=== PATIENT | female | born 1960 | race Caucasian/White ===

== ENCOUNTER 2020-01-05 06:02 | Emergency (ER) | payer MEDICARE, MEDICAID, SELFPAY ==
[2020-01-05 06:13] VITALS: BP 145/112; PULSE 90; RESP 18; TEMP 36.6; BMI 18.3
--- NOTE | 2020-01-05 06:53 | ED.ANXIETY ---
HPI - Anxiety General Chief Complaint: Anxiety Stated Complaint: ANXIETY Time Seen by Provider: 01/05/20 06:53 Source: patient Mode of arrival: ambulatory Limitations: no limitations History of Present Illness complaint: anxiety Onset (ago): week(s) Severity: moderate Quality: constant Place: home History of similar episodes: Yes Provoking factors: emotional stress Relieving factors: nothing Exacerbating factors: nothing Associated symptoms: denies other symptoms Related Data Allergies Allergy/AdvReac Type Severity Reaction Status Date / Time No Known Allergies Allergy Unknown unknown Verified 01/05/20 06:30 [NO KNOWN ALLERGIES] Review of Systems Review of Systems: Constitutional : No Fever, No Chills ENT/Mouth : No Ear Pain, No Nasal Congestion, No sore throat Eyes: No Eye Pain, No Swelling, No Redness Cardiovascular : No Chest Pain, No SOB Respiratory : No Cough, No Sputum, No Dyspnea Gastrointestinal : No Nausea, No Vomiting, No Diarrhea, No Hematochezia, No Melena Genitourinary : No Dysuria, No Urinary Frequency, No Hematuria Musculoskeletal : No Myalgias Skin : No Skin Lesions, No rash Neuro : No Weakness, No Numbness, No Paresthesias, No Dizziness, No Headache Psych : positive Anxiety, positive Depression, denies SI/HI Heme/Lymph: No Lymphadenopathy Endocrine : No Polyuria, No Polydipsia PMFSH Past Medical History Attestation statement: The following information was validated with the patient. Medical History Anxiety COPD (chronic obstructive pulmonary disease) Depression GERD (gastroesophageal reflux disease) Mitral and aortic regurgitation Rectal prolapse Social History Social History Alcohol intake: former Smoking Status: Current every day smoker Smoked in Last 30 Days: Yes Use of substances other than those prescribed or required for medical reasons: Yes Substance Use Type: Marijuana Substance Use Frequency: Occasionally Last Used Substance: Unknown Any prior treatment program specific to substance use: Yes Advance Directives: No Advance Directives Information Provided: No Physical Exam Vital Signs and I&O and Narrative: Vital Signs and I&O: Vital Signs Temp 97.9 F 01/05/20 06:13 Pulse 77 01/05/20 10:00 Resp 20 01/05/20 10:00 BP 144/88 H 01/05/20 10:00 Pulse Ox 97 01/05/20 10:00 Intake & Output 01/04/20 01/05/20 01/05/20 18:59 06:59 18:59 Weight 45.359 kg Body Mass Index 18.3 Const: General: cooperative and anxious Nutritional Appearance: malnourished Orientation/consciousness: oriented to person, oriented to place, oriented to time and patient oriented x3 HENMT: Head: Yes normal to inspection Ears: external ears normal General nose exam: Normal external nose present Face and sinus: Yes normal facial exam Eyes: General: appearance normal, both eyes and all related structures Pupils: Equal, round and reactive pupils present Neck: Neck: Yes normal visual inspection Chest: Chest palpation & inspection: normal inspection of the chest Resp: Effort & Inspection: normal respiratory effort Auscultation: clear to auscultation bilaterally Cardio: Rate: regular rate Rhythm: regular rhythm Peripheral pulses: Peripheral pulses 2+ throughout GI: Inspection: Yes normal to inspection Palpation (GI): Soft to palpation and nontender Skin: General skin exam: no rashes or lesions noted Neuro: General: oriented to person, oriented to place, oriented to time, patient oriented x3 and gait normal Cranial nerves: Yes CN's II-XII intact bilaterally and Yes Equal, round and reactive pupils present Cognition (Neuro): normal cognition Gait exam (Neuro): Normal gait present Motor exam (neuro): 5/5 motor strength present throughout Sensory Exam: Normal double simultaneous stimulation for sensation Extrem: General: Yes normal to inspection Psych: Appearance: disheveled Mental Status: mental status grossly normal Speech and movement: Normal speech and movement present Affect: Anxious affect present Attitude: cooperative Thought process: Normal thought process present Thought content: Normal thought content present Insight: Good insight present (Psych) Judgement: Good judgement present (Psych) Course Course Hospital Course: no SI/HI cleared by [facility] stable for DC at this time, feels better and wants to go home MDM - Anxiety MDM Narrative Medical decision making narrative: patient with anxiety no SI/HI. will need labs, [facility] consult, not toxic Lab Data Result diagrams: 01/05/20 07:22 01/05/20 07:22 Labs: Lab Results 01/05/20 01/05/20 01/05/20 Range/Units 07:22 07:22 07:27 WBC 5.8 (4.8-10.8) X10*3/uL RBC 5.34 (4.20-5.50) X10*6/uL Hgb 15.8 (12.0-16.0) g/dl Hct 46.9 (37-47) % MCV 87.8 (80-98) fL MCH 29.6 (27.0-33.0) pg MCHC 33.7 (31.0-35.0) g/dl RDW 13.1 (11.0-16.0) % Plt Count 185 (160-400) X10*3/uL MPV 9.0 L (9.4-12.3) fL Immature Gran % (Auto) 0.2 (0.0-0.4) % Neut % (Auto) 60.0 (45-73) % Lymph % (Auto) 28.5 (20-40) % [place] % (Auto) 8.2 (2-11) % Eos % (Auto) 2.1 (0-4) % Baso % (Auto) 1.0 (0-2) % Neut # (Auto) 3.5 (2.0-8.3) X10*3/uL Lymph # (Auto) 1.7 (1.2-4.9) X10*3/uL [place] # (Auto) 0.5 (0.1-1.2) X10*3/uL Eos # (Auto) 0.1 (0.0-0.4) X10*3/uL Baso # (Auto) 0.1 (0.0-0.2) X10*3/uL Abs Immat Gran (auto) 0.01 (0.00-0.03) X10*3/uL Absolute Nucleated RBC 0.000 (0.0-0.012) X10*3/uL Nucleated RBC % (auto) 0.0 (0.0-0.2) /100WBC Sodium 140 (135-145) mmol/L Potassium 3.6 (3.3-5.1) mmol/l Chloride 105 (96-108) mmol/L Carbon Dioxide 26 (22-29) mmol/L Anion Gap 13 (12-20) BUN 12 (9-16) mg/dL Creatinine 0.72 (0.5-1.4) mg/dL Estim Creat Clear Calc 59.4 Estimated GFR > 60 Random Glucose 91 (60-115) mg/dL Calcium 9.1 (8.4-10.2) mg/dL Total Bilirubin 0.6 (0.0-1.0) mg/dL Direct Bilirubin 0.2 (0.0-0.5) mg/dL AST 13 (5-31) U/L ALT 6 (0-31) U/L Alkaline Phosphatase 51 (39-117) U/L Total Protein 6.8 (6.5-8.0) g/dL Albumin 4.3 (3.5-5.0) g/dL Urine Opiates Screen Not Detected (Not Detect) Ur Barbiturates Screen Not Detected (Not Detect) Ur Phencyclidine Scrn Not Detected (Not Detect) Ur Amphetamines Screen Not Detected (Not Detect) U Benzodiazepines Scrn Not Detected (Not Detect) Urine Cocaine Screen Not Detected (Not Detect) U Marijuana (THC) Screen POSITIVE H (Not Detect) Discharge Plan Discharge Clinical Impression: Depression Qualifiers: Depression Type: major depressive disorder Major depression recurrence: recurrent Active/Remission status: currently active Major depression episode severity: moderate Qualified Code(s): F33.1 - Major depressive disorder, recurrent, moderate Patient Disposition: Home, Self-Care Additional Instructions: please follow up with [facility] they will set you up with outpatient providers
[2020-01-05] MEDS: LORazepam 1 MG TABLET PO (07:06)
--- NOTE | 2020-01-05 07:20 | PC.NURSE ---
PT RESTLESS, CRYING. PT REASSURED, MEDICATIONS GIVEN, LIGHTS DIMMED.
[2020-01-05 07:29] LABS: MANUAL DIFF FLAG NO
[2020-01-05 07:35] LABS: Basophils Absolute Auto 0.1 X10*3/uL (0.0-0.2); Eosinophils Absolute Auto 0.1 X10*3/uL (0.0-0.4); Eosinophils Percent Auto 2.1 % (0-4); Hematocrit 46.9 % (37-47); Hemoglobin 15.8 g/dl (12.0-16.0); Imm Gran Abs Auto 0.01 X10*3/uL (0.00-0.03); Imm Gran Pct Auto 0.2 % (0.0-0.4); Lymphocytes Absolute Auto 1.7 X10*3/uL (1.2-4.9); Lymphocytes Percent Auto 28.5 % (20-40); Mean Corpuscular HGB Conc 33.7 g/dl (31.0-35.0); Mean Corpuscular Hemoglobin 29.6 pg (27.0-33.0); Mean Corpuscular Volume 87.8 fL (80-98); Monocytes Absolute Auto 0.5 X10*3/uL (0.1-1.2); Monocytes Percent Auto 8.2 % (2-11); Neutrophils Absolute Auto 3.5 X10*3/uL (2.0-8.3); Platelet Count 185 X10*3/uL (160-400); Red Blood Count 5.34 X10*6/uL (4.20-5.50); Red Cell Distribution Width 13.1 % (11.0-16.0); White Blood Count 5.8 X10*3/uL (4.8-10.8)
[2020-01-05 07:55] LABS: Alanine Aminotransferase 6 U/L (0-31); Albumin Level 4.3 g/dL (3.5-5.0); Alkaline Phosphatase 51 U/L (39-117); Anion Gap 13 (12-20); Aspartate Amino Transferase 13 U/L (5-31); Bilirubin Direct 0.2 mg/dL (0.0-0.5); Bilirubin Total 0.6 mg/dL (0.0-1.0); Blood Urea Nitrogen 12 mg/dL (9-16); Calcium 9.1 mg/dL (8.4-10.2); Carbon Dioxide 26 mmol/L (22-29); Chloride 105 mmol/L (96-108); Creatinine Clr Calc Pharmacy 59.4; Estimated Glomerular Filt Rate > 60; Glucose Random 91 mg/dL (60-115); Potassium 3.6 mmol/l (3.3-5.1); Sodium 140 mmol/L (135-145); Total Protein 6.8 g/dL (6.5-8.0)
[2020-01-05 08:02] VITALS: BP 128/92; PULSE 85; RESP 22; O2SAT 94
[2020-01-05 08:06] LABS: Amphetamine Screen Urine Not Detected (Not Detect); Barbiturates, Urine Not Detected (Not Detect); Benzodiazepines Screen Urine Not Detected (Not Detect); Cannabinoid Screen Urine POSITIVE (Not Detect); Cocaine Screen Urine Not Detected (Not Detect); Opiate Screen Urine Not Detected (Not Detect); Phencyclidine Screen Urine Not Detected (Not Detect)
[2020-01-05] MEDS: Acetaminophen 325 MG TABLET 650 MG PO (08:22)
--- NOTE | 2020-01-05 09:15 | PC.NURSE ---
ED summary faxed to [facility] for consult
--- NOTE | 2020-01-05 09:44 | PC.NURSE ---
Call placed to [facility], updated on patient condition and need for consult. Per staff at [facility], will send next available clinician.
--- NOTE | 2020-01-05 09:56 | PC.NURSE ---
Patient updated on plan to be evaluated by N clinician.
[2020-01-05 10:00] VITALS: BP 144/88; PULSE 77; RESP 20; O2SAT 97
== END 2020-01-05 11:26 | disposition home or self-care (01) ==
PROVIDERS: Emergency Provider Emergency Medicine; PCP Internal Medicine
DX: F33.1 Major depressive disorder, recurrent, moderate (principal); F17.200 Nicotine dependence, unspecified, uncomplicated
CPT/HCPCS: 36415; 80048; 80076; 80307; 85025; 99284

== ENCOUNTER 2020-01-19 12:56 | Outpatient (REF) | payer MEDICARE, MEDICAID, SELFPAY ==
[2020-01-20 08:56] LABS: CT PCR NOT DETECTED (Not Detect.); NG PCR NOT DETECTED (Not Detect.)
[2020-01-20 09:33] LABS: BV Int Neg Control Negative (Negative); BV Int Pos Control Positive (Positive)
[2020-01-24 20:11] LABS: HPV mRNA E6/E7 Not Detected (Not Detected)
== END 2020-01-19 12:57 | disposition home or self-care (01) ==
LOC: HO.LNP 12:56
PROVIDERS: PCP Internal Medicine; Referring Provider Internal Medicine; Visit Provider Obstetrics & Gynecology
DX: Z01.419 Encounter for gynecological examination (general) (routine) without abnormal findings (principal); Z11.51 Encounter for screening for human papillomavirus (HPV); Z11.3 Encounter for screening for infections with a predominantly sexual mode of transmission
CPT/HCPCS: 87480; 87491; 87510; 87591; 87624; 87625; 87660; 88142

== ENCOUNTER 2020-01-25 11:19 | Emergency (ER) | payer MEDICARE, MEDICAID, SELFPAY ==
--- NOTE | 2020-01-25 13:53 | ED_ITS ---
HPI - General Adult General Chief complaint: Fall Stated complaint: FALL Time Seen by Provider: 01/25/20 13:53 Source: patient Mode of arrival: ambulatory Limitations: no limitations History of Present Illness MD complaint: states she fell 1 week ago and since then L side is numb Onset (ago): week(s) (1) Location: head, neck and back Radiation: non-radiation Severity: moderate Quality: burning and constant Pain Consistency: constant Relieving factors: none Exacerbating factors: none Associated symptoms: headaches and other (feels her left side is numb and tingling from head to toe as well as she has neck pain and she fell today again and her low back hurts) Treatments prior to arrival: none Related Data Home Medications Medication Instructions Recorded Confirmed lorazepam 1 mg tablet 1 mg PO BEDTIME PRN 01/19/20 Previous Rx's Medication Instructions Recorded oxycodone 5 mg tablet 5 mg PO BID PRN 10 Days #20 tab 01/16/20 Allergies Allergy/AdvReac Type Severity Reaction Status Date / Time No Known Allergies Allergy Unknown unknown Verified 01/05/20 06:30 [NO KNOWN ALLERGIES] Review of Systems Review of Systems: Constitutional : No Weight loss, No Fever, No Chills, pos Fatigue, No Malaise ENT/Mouth : No sore throat, No Rhinorrhea Eyes: No Eye Pain, No Swelling, No Redness Cardiovascular : No Chest Pain, No SOB, No Dyspnea on Exertion, No Orthopnea, No Edema, No Palpitations Respiratory : No Cough, No Sputum, No Wheezing Gastrointestinal : No Nausea, No Vomiting, No Diarrhea, No Constipation, No abdominal Pain, No Hematochezia, No Melena Back: hit left low back today c/o pain Genitourinary : No Dysuria, No Urinary Frequency, No Hematuria, Musculoskeletal : No joint pain, No Myalgias, No Joint Swelling Skin : No Skin Lesions, No rash Neuro : pos Weakness, pos Numbness, No Dizziness, pos Headache Psych : pos Anxiety/Panic, No Depression All other systems reviewed and are negative [facility] Past Medical History Medical History Anxiety COPD (chronic obstructive pulmonary disease) Depression Encounter for screening for malignant neoplasm of cervix GERD (gastroesophageal reflux disease) Mitral and aortic regurgitation Rectal prolapse Surgical History History of rectal surgery Social History Social History Alcohol intake: former Smoking Status: Current every day smoker Smoked in Last 30 Days: Yes Use of substances other than those prescribed or required for medical reasons: Yes Substance Use Type: Marijuana Advance Directives: Yes Advance Directives Information Provided: Yes Advance Directives on File: No Sexual orientation: Straight/Heterosexual Gender identity: female Physical Exam Vital Signs: Vital Signs: Vital Signs Temp Pulse Resp BP Pulse Ox 01/25/20 15:16 98.8 F 72 16 148/89 H 98 01/25/20 14:31 98.7 F 74 16 145/88 H 98 Body Mass Index 17.7 Appearance: Alert. Oriented X3. No acute distress. Anxious and tearful Eyes: Pupils equal, round and reactive to light. ENT: Pharynx normal. Neck: Normal inspection. Neck supple. CVS: Normal heart rate and rhythm. Pulses normal. Respiratory: No respiratory distress. Breath sounds normal. Abdomen: Soft and nontender. Back: L flank ttp above iliac no trauma noted on skin Skin: Skin warm and dry. Normal skin color. Normal skin turgor. Extremities: No lower extremity edema. No calf ttp Neuro: Oriented X 3. No motor deficit. C/o tingling in L side face/toes Course Course Course Narrative: no acute findings on CT scan all symptoms resolved with v alium, anticipate DC home if labs negative Medical Decision Making MDM Narrative Medical decision making narrative: 59 yo female with hx of anxiety here with L sided numbness and tingling after a fall 1 week ago - no AC therapy, at this time will need labs, CT scan of head/cspine, labs and EKG, PO valium for anxiety Lab Data Result diagrams: 01/25/20 14:42 01/25/20 14:42 Labs: Lab Results 01/25/20 01/25/20 Range/Units 14:42 14:42 WBC 5.9 (4.8-10.8) X10*3/uL RBC 5.17 (4.20-5.50) X10*6/uL Hgb 15.4 (12.0-16.0) g/dl Hct 45.6 (37-47) % MCV 88.2 (80-98) fL MCH 29.8 (27.0-33.0) pg MCHC 33.8 (31.0-35.0) g/dl RDW 12.6 (11.0-16.0) % Plt Count 198 (160-400) X10*3/uL MPV 8.6 L (9.4-12.3) fL Immature Gran % (Auto) 0.3 (0.0-0.4) % Neut % (Auto) 58.7 (45-73) % Lymph % (Auto) 30.8 (20-40) % [place] % (Auto) 7.8 (2-11) % Eos % (Auto) 1.7 (0-4) % Baso % (Auto) 0.7 (0-2) % Lymph # (Auto) 1.8 (1.2-4.9) X10*3/uL [place] # (Auto) 0.5 (0.1-1.2) X10*3/uL Eos # (Auto) 0.1 (0.0-0.4) X10*3/uL Baso # (Auto) 0.0 (0.0-0.2) X10*3/uL Abs Immat Gran (auto) 0.02 (0.00-0.03) X10*3/uL Absolute Neuts (auto) 3.5 (2.0-8.3) X10*3/uL Absolute Nucleated RBC 0.000 (0.0-0.012) X10*3/uL Nucleated RBC % (auto) 0.0 (0.0-0.2) /100WBC Hold Blue Top SEE NOTE ECG Data Attestation: I personally reviewed and interpreted this ECG as follows: Interpretation: Rate: 76 Rhythm: NSR [place]: left Normal P waves. Normal BETZA[place]. Normal QRS complex. ST T wave : normal qTC: normal prior studies: no acute ischemia The study has been interpreted contemporaneously by me. . Discharge Plan Discharge Prescriptions: No Action oxycodone 5 mg tablet 5 mg PO BID PRN (Reason: pain) 10 Days Qty: 20 RF: 0 lorazepam 1 mg tablet 1 mg PO BEDTIME PRNRF: 0
--- NOTE | 2020-01-25 13:54 | CT_ITS ---
EXAMINATION: CT ABDOMEN AND PELVIS WITHOUT CONTRAST CLINICAL INFORMATION: Fall, trauma, left flank pain COMPARISON: CT abdomen and pelvis noncontrast 08/17/[address] abdomen and pelvis with IV contrast 03/08/2018. TECHNIQUE: Multidetector volumetric imaging was performed from the superior aspect of the liver through the pubic symphysis. No oral or intravenous contrast. Sagittal and coronal reformatted images were obtained on the technologist's workstation. This CT examination was performed using dose optimization techniques as appropriate, variously including the following: *Automated exposure control *Adjustment of mA and/or kV according to patient size (this includes techniques or standardized protocols for targeted exams where dose is matched to indication/reason for exam; i.e. extremities or head) *Use of iterative reconstruction technique DLP: 227 mGy-cm FINDINGS: LUNG BASES: Discoid plaque like lesion right central base 9 mm across and 3 mm height, similar to prior studies 2019 and 2017, consistent with benign entity. No airspace consolidation or effusion. LIVER, GALLBLADDER, AND BILIARY TREE: The liver is smooth in contour and parenchyma homogeneous. No focal hepatic parenchymal lesion or posttraumatic abnormality. No intrahepatic ductal dilatation. There are 2 small dependent gallstones present. No gallbladder dilatation or wall thickening. No biliary ductal dilatation. Common duct unremarkable. PANCREAS: Unremarkable. SPLEEN: Unremarkable. ADRENAL GLANDS: Unremarkable. KIDNEYS AND URETERS: The kidneys are normal in size and contour. There is no hydronephrosis, hydroureter, or perinephric stranding. There are a few scattered bilateral punctate renal parenchymal calcifications. No obstructing renal sinus calculi. Tiny cortical cyst upper pole left kidney again noted, similar to 2018. BLADDER: Unremarkable. GASTROINTESTINAL TRACT: No bowel obstruction or focal inflammatory changes. The appendix is normal. There is no free air. No ascites or fluid collection. ABDOMINAL WALL: No significant hernia is appreciated. LYMPH NODES: No lymphadenopathy. VASCULAR: Atherosclerotic calcifications. No aneurysmal enlargement aorta. No retroperitoneal hematoma. PELVIC VISCERA: Unremarkable. OSSEOUS STRUCTURES: There is old compression deformity vertebral body L5 similar to prior studies. No acute bony abnormality. IMPRESSION: 1. No acute traumatic abnormality abdomen or pelvis. 2. No hydronephrosis or perinephric stranding. 3. Old L5 vertebral compression similar to prior CT studies 2019, 2017. 4. Cholelithiasis. No gallbladder wall thickening or ductal dilatation.
--- NOTE | 2020-01-25 13:54 | CT_ITS ---
EXAMINATION: CT CERVICAL SPINE WITHOUT CONTRAST CLINICAL INFORMATION: Fall, trauma, pain COMPARISON: None TECHNIQUE: Multidetector volumetric CT imaging of the cervical spine is performed without contrast in the axial plane. Additional 2D reformatted coronal and sagittal images are generated on the CT workstation and uploaded to PACS. DOSE LOWERING TECHNIQUES: This CT examination was performed using dose optimization techniques as appropriate, variously including the following: *Automated exposure control *Adjustment of mA and/or kV according to patient size (this includes techniques or standardized protocols for targeted exams where dose is matched to indication/reason for exam; i.e. extremities or head) *Use of iterative reconstruction technique DLP: 255 mGy-cm FINDINGS: There is no vertebral fracture or compression. No destructive process or prevertebral soft tissue swelling. The craniocervical junction appears normal. The odontoid appears intact. There is straightening of the cervical lordosis with gentle borderline dextrocurvature. There are degenerative disc changes C5-C6 and C6-C7 with disc narrowing and mild endplate sclerosis and associated anterior and posterior vertebral spurring. Mild facet degeneration is also present. There is borderline retrolisthesis at C5 likely related to the degenerative changes. No perched facet. There is no apical pneumothorax. Centrilobular emphysematous changes are again noted apices, also described on CT chest report 10/26/2017. IMPRESSION: 1. No acute bony abnormality or prevertebral soft tissue swelling. 2. Degenerative disc changes with borderline retrolisthesis C5-C6 and degenerative disc changes C6-C7.
--- NOTE | 2020-01-25 13:54 | CT_ITS ---
EXAMINATION: CT HEAD WITHOUT CONTRAST CLINICAL INFORMATION: Fall, trauma, pain COMPARISON: CT brain noncontrast 04/28/2017 TECHNIQUE: Contiguous axial imaging was performed from the skull base to vertex without intravenous administration of contrast. Additional 2-D coronal and sagittal reformatted images are generated on the CT workstation and uploaded to PACS. DOSE LOWERING TECHNIQUES: This CT examination was performed using dose optimization techniques as appropriate, variously including the following: *Automated exposure control *Adjustment of mA and/or kV according to patient size (this includes techniques or standardized protocols for targeted exams where dose is matched to indication/reason for exam; i.e. extremities or head) *Use of iterative reconstruction technique DLP: 255 mGy-cm FINDINGS: There is no intracranial hemorrhage, hematoma, or extra-axial fluid collection. The ventricles are normal in size. There is no hydrocephalus, edema, or mass effect. The garcia-white matter differentiation appears symmetric. There is no visible acute territorial infarct or mass lesion. The calvarium appears intact. There is no pneumocephalus or orbital emphysema. The visualized sinuses and middle ears and mastoid air cells show no significant mucosal thickening. There are no air-fluid levels. IMPRESSION: No acute intracranial abnormality.
--- NOTE | 2020-01-25 14:11 | ECG_ITS ---
Test Reason : FALL Blood Pressure : / mmHG Vent. Rate : 076 BPM Atrial Rate : 076 BPM P-R Int : 198 ms QRS Dur : 098 ms QT Int : 402 ms P-R-T Axes : 080 -44 066 degrees QTc Int : 452 ms Sinus rhythm with occasional Premature ventricular complexes Left axis deviation Abnormal ECG When compared with ECG of 03-APR-2019 14:17, Premature ventricular complexes are now Present Referred By: Sunshine Rhoades Electronically Signed By:MAI BURCH MD
[2020-01-25 14:31] VITALS: BP 145/88; PULSE 74; RESP 16; TEMP 37.1; O2SAT 98; BMI 17.7
[2020-01-25] MEDS: diazePAM 5 MG TABLET PO (14:36)
[2020-01-25 14:54] LABS: MANUAL DIFF FLAG NO
[2020-01-25 14:57] LABS: Basophils Percent Auto 0.7 % (0-2); Eosinophils Absolute Auto 0.1 X10*3/uL (0.0-0.4); Eosinophils Percent Auto 1.7 % (0-4); Hematocrit 45.6 % (37-47); Hemoglobin 15.4 g/dl (12.0-16.0); Imm Gran Abs Auto 0.02 X10*3/uL (0.00-0.03); Imm Gran Pct Auto 0.3 % (0.0-0.4); Lymphocytes Absolute Auto 1.8 X10*3/uL (1.2-4.9); Lymphocytes Percent Auto 30.8 % (20-40); Mean Corpuscular HGB Conc 33.8 g/dl (31.0-35.0); Mean Corpuscular Hemoglobin 29.8 pg (27.0-33.0); Mean Corpuscular Volume 88.2 fL (80-98); Mean Platelet Volume 8.6 fL (9.4-12.3); Monocytes Absolute Auto 0.5 X10*3/uL (0.1-1.2); Monocytes Percent Auto 7.8 % (2-11); Neutrophils Absolute Auto 3.5 X10*3/uL (2.0-8.3); Neutrophils Percent Auto 58.7 % (45-73); Platelet Count 198 X10*3/uL (160-400); Red Blood Count 5.17 X10*6/uL (4.20-5.50); Red Cell Distribution Width 12.6 % (11.0-16.0); White Blood Count 5.9 X10*3/uL (4.8-10.8)
[2020-01-25 15:16] VITALS: BP 148/89; PULSE 72; RESP 16; TEMP 37.1; O2SAT 98
[2020-01-25 16:07] LABS: Alanine Aminotransferase < 6 U/L (0-31); Albumin Level 4.2 g/dL (3.5-5.0); Alkaline Phosphatase 62 U/L (39-117); Anion Gap 18 (12-20); Aspartate Amino Transferase 13 U/L (5-31); Bilirubin Direct < 0.2 mg/dL (0.0-0.5); Bilirubin Total 0.3 mg/dL (0.0-1.0); Blood Urea Nitrogen 12 mg/dL (9-16); Calcium 9.1 mg/dL (8.4-10.2); Carbon Dioxide 21 mmol/L (22-29); Chloride 106 mmol/L (96-108); Creatinine Clr Calc Pharmacy 63.9; Estimated Glomerular Filt Rate > 60; Glucose Random 80 mg/dL (60-115); Magnesium 2.4 mg/dL (1.6-2.6); Potassium 4.3 mmol/l (3.3-5.1); Sodium 141 mmol/L (135-145)
--- NOTE | 2020-01-25 16:09 | PC.NURSE ---
pt reports relief of tingling
[2020-01-25 16:20] LABS: Thyroid Stimulating Hormone 1.41 mIU/mL (0.32-4.0)
== END 2020-01-25 16:16 | disposition home or self-care (01) ==
PROVIDERS: Emergency Provider Emergency Medicine; PCP Internal Medicine
DX: R20.2 Paresthesia of skin (principal); F41.9 Anxiety disorder, unspecified; I10 Essential (primary) hypertension; F17.200 Nicotine dependence, unspecified, uncomplicated; Z79.899 Other long term (current) drug therapy; Z91.81 History of falling
CPT/HCPCS: 36415; 70450; 72125; 74176; 80048; 80076; 83735; 84443; 85025; 93005; 99284

== ENCOUNTER 2020-02-29 09:09 | Outpatient (REF) | payer MEDICARE, MEDICAID, SELFPAY ==
--- NOTE | 2020-02-29 09:12 | EMG_ITS ---
HISTORY OF PRESENT ILLNESS: This is a 59-year-old woman with left leg pain and numbness. PHYSICAL EXAMINATION: On examination, she is alert and oriented with normal intellectual functions. Cranial nerves II through XII are normal. Muscle tone and strength are normal. IMPRESSION: Rule out peroneal neuropathy. Nerve conduction EMG study: Normal electrodiagnostic study of the left lower extremity except for mild sensory axonal loss in the left sural nerve. There is no electrodiagnostic evidence of generalized peripheral neuropathy or nerve entrapment. Normal EMG of the left L4-S1 innervated muscles. MD DARIANA Herrera/AVIS / [id number]
== END 2020-02-29 09:10 | disposition home or self-care (01) ==
LOC: HO.NEURO 09:09
PROVIDERS: PCP Internal Medicine; Visit Provider Internal Medicine
DX: R20.2 Paresthesia of skin (principal)
CPT/HCPCS: 95860; 95885; 95910

== ENCOUNTER 2020-06-18 10:46 | Outpatient (REF) | payer MEDICARE, MEDICAID, SELFPAY ==
--- NOTE | ~2020-06-18 | MM_ITS ---
EXAMINATION: MM SCREENING DIGITAL BREAST TOMOSYNTHESIS, BILATERAL CLINICAL INFORMATION: Screening. Asymptomatic. The lifetime risk of breast cancer based on the Tyrer-Cuzick Model is 6%. COMPARISON: Mammography: 06/13/2019, 23/06/2014 TECHNIQUE: Digital breast tomosynthesis is performed in both the craniocaudal and mediolateral oblique views along with computer-aided detection (CAD). Synthesized 2D images are generated from the tomosynthesis. FINDINGS: There are scattered areas of fibroglandular density (ACR BI-RADS breast composition Category b). There are no significant masses, abnormal calcifications, or other abnormalities. Parenchymal pattern is similar to prior exam. MM/MM tomosynthesis screening BI IMPRESSION: No mammographic evidence of malignancy. ASSESSMENT: BI-RADS 1: Negative RECOMMENDATION: Routine annual mammography screening. This patient's information was entered into a reminder system with a target due date for their next mammogram.
== END 2020-06-18 10:47 | disposition home or self-care (01) ==
LOC: HO.MAMMO 10:46
PROVIDERS: Visit Provider Internal Medicine
DX: Z12.31 Encounter for screening mammogram for malignant neoplasm of breast (principal)
CPT/HCPCS: 77063; 77067

== ENCOUNTER 2020-07-13 10:45 | Outpatient (REF) | payer MEDICARE, MEDICAID, SELFPAY ==
[2020-07-13 12:25] LABS: MANUAL DIFF FLAG NO
[2020-07-13 12:30] LABS: Basophils Absolute Auto 0.1 X10*3/uL (0.0-0.2); Eosinophils Absolute Auto 0.2 X10*3/uL (0.0-0.4); Eosinophils Percent Auto 2.8 % (0-4); Hematocrit 46.5 % (37-47); Hemoglobin 15.1 g/dl (12.0-16.0); Imm Gran Abs Auto 0.03 X10*3/uL (0.00-0.03); Imm Gran Pct Auto 0.4 % (0.0-0.4); Lymphocytes Percent Auto 28.7 % (20-40); Mean Corpuscular HGB Conc 32.5 g/dl (31.0-35.0); Mean Corpuscular Hemoglobin 29.5 pg (27.0-33.0); Monocytes Absolute Auto 0.5 X10*3/uL (0.1-1.2); Monocytes Percent Auto 7.3 % (2-11); Neutrophils Absolute Auto 4.2 X10*3/uL (2.0-8.3); Neutrophils Percent Auto 59.8 % (45-73); Platelet Count 210 X10*3/uL (160-400); Red Blood Count 5.11 X10*6/uL (4.20-5.50); Red Cell Distribution Width 13.1 % (11.0-16.0)
[2020-07-13 12:45] LABS: Glucose Urine UA NEG (NEG); Leukocyte Esterase Urine NEG (NEG); Nitrite Urine NEG (NEG); PH 6.5 (5.0-8.0); Urine Blood 1+ (NEG); Urine Ketones NEG (NEG); Urine Protein NEG (NEG-TRACE)
[2020-07-13 12:48] LABS: Appearance Urine CLEAR; Color Urine YELLOW
[2020-07-13 12:57] LABS: Squamous Epithelial Cell Urine 1+ /LPF; WBC Urine 0 /HPF (0-4)
[2020-07-13 13:03] LABS: Alanine Aminotransferase 7 U/L (0-31); Albumin Level 4.4 g/dL (3.5-5.0); Alkaline Phosphatase 60 U/L (39-117); Anion Gap 13 (12-20); Aspartate Amino Transferase 16 U/L (5-31); Bilirubin Total 0.5 mg/dL (0.0-1.0); Blood Urea Nitrogen 11 mg/dL (9-16); Carbon Dioxide 29 mmol/L (22-29); Chloride 105 mmol/L (96-108); Cholesterol 231 mg/dL; Estimated Glomerular Filt Rate > 60; Glucose Fasting 98 mg/dL (60-99); HDL Cholesterol 59 mg/dL; LDL Cholesterol Calculated 151 mg/dl; Potassium 4.7 mmol/L (3.3-5.1); Sodium 142 mmol/L (135-145); Total Protein 7.1 g/dL (6.5-8.0); Triglycerides 105 mg/dL
[2020-07-13 13:25] LABS: Vitamin D 25-OH Total 6.7 ng/mL (>30)
== END 2020-07-13 10:46 | disposition home or self-care (01) ==
LOC: HO.LAB 10:45
PROVIDERS: PCP Internal Medicine; Visit Provider Internal Medicine
DX: E78.00 Pure hypercholesterolemia, unspecified (principal); I10 Essential (primary) hypertension; F17.200 Nicotine dependence, unspecified, uncomplicated; J44.9 Chronic obstructive pulmonary disease, unspecified; K29.70 Gastritis, unspecified, without bleeding; E55.9 Vitamin D deficiency, unspecified
CPT/HCPCS: 36415; 80053; 80061; 81001; 82306; 85025

== ENCOUNTER 2020-08-16 14:44 | Outpatient (REF) | payer MEDICARE, MEDICAID, SELFPAY ==
[2020-08-16 17:40] LABS: MANUAL DIFF FLAG NO
[2020-08-16 17:48] LABS: Basophils Absolute Auto 0.1 X10*3/uL (0.0-0.2); Basophils Percent Auto 0.7 % (0-2); Eosinophils Absolute Auto 0.1 X10*3/uL (0.0-0.4); Eosinophils Percent Auto 1.3 % (0-4); Hematocrit 45.8 % (37-47); Hemoglobin 15.3 g/dl (12.0-16.0); Imm Gran Abs Auto 0.02 X10*3/uL (0.00-0.03); Imm Gran Pct Auto 0.3 % (0.0-0.4); Lymphocytes Absolute Auto 2.4 X10*3/uL (1.2-4.9); Lymphocytes Percent Auto 34.7 % (20-40); Mean Corpuscular HGB Conc 33.4 g/dl (31.0-35.0); Mean Corpuscular Hemoglobin 30.1 pg (27.0-33.0); Mean Platelet Volume 8.9 fL (9.4-12.3); Monocytes Absolute Auto 0.6 X10*3/uL (0.1-1.2); Monocytes Percent Auto 8.1 % (2-11); Neutrophils Absolute Auto 3.8 X10*3/uL (2.0-8.3); Neutrophils Percent Auto 54.9 % (45-73); Platelet Count 189 X10*3/uL (160-400); Red Blood Count 5.09 X10*6/uL (4.20-5.50)
[2020-08-16 18:02] LABS: Alanine Aminotransferase 7 U/L (0-31); Albumin Level 4.4 g/dL (3.5-5.0); Alkaline Phosphatase 52 U/L (39-117); Anion Gap 14 (12-20); Aspartate Amino Transferase 17 U/L (5-31); Bilirubin Total 0.5 mg/dL (0.0-1.0); Blood Urea Nitrogen 12 mg/dL (9-16); Calcium 9.1 mg/dL (8.4-10.2); Carbon Dioxide 26 mmol/L (22-29); Chloride 102 mmol/L (96-108); Cholesterol 227 mg/dL; Estimated Glomerular Filt Rate > 60; Glucose Fasting 79 mg/dL (60-99); HDL Cholesterol 52 mg/dL; LDL Cholesterol Calculated 154 mg/dl; Sodium 138 mmol/L (135-145); Triglycerides 106 mg/dL
[2020-08-16 18:04] LABS: Blood Urea Nitrogen 11 mg/dL (9-16); Estimated Glomerular Filt Rate > 60
[2020-08-16 18:04] LABS: Glucose Urine UA NEG (NEG); Leukocyte Esterase Urine NEG (NEG); Nitrite Urine NEG (NEG); PH 5.5 (5.0-8.0); Urine Blood 1+ (NEG); Urine Ketones 5 MG/DL (NEG); Urine Protein NEG (NEG-TRACE)
[2020-08-16 18:07] LABS: Appearance Urine CLEAR; Color Urine YELLOW
[2020-08-16 18:20] LABS: RBC Urine 0-2 /HPF (0); Renal Epithelial Cells Urine TRACE /LPF; Squamous Epithelial Cell Urine 1+ /LPF; WBC Urine 0 /HPF (0-4)
[2020-08-16 18:34] LABS: TSH reflex Free T4 1.59 uIU/mL (0.32-4.0); Vitamin D 25-OH Total 12.7 ng/mL (>30)
[2020-08-16 18:42] LABS: Erythrocyte Sedimentation Rate 5 MM/HR (0-20)
== END 2020-08-16 14:45 | disposition home or self-care (01) ==
LOC: HO.LAB 14:44
PROVIDERS: PCP Internal Medicine; Referring Provider Internal Medicine; Visit Provider Nurse Practitioner
DX: R10.84 Generalized abdominal pain (principal); R11.10 Vomiting, unspecified; K29.70 Gastritis, unspecified, without bleeding; R68.81 Early satiety; I10 Essential (primary) hypertension; J44.9 Chronic obstructive pulmonary disease, unspecified; E78.00 Pure hypercholesterolemia, unspecified; R20.2 Paresthesia of skin; E55.9 Vitamin D deficiency, unspecified; M47.812 Spondylosis without myelopathy or radiculopathy, cervical region; M47.816 Spondylosis without myelopathy or radiculopathy, lumbar region
CPT/HCPCS: 36415; 80053; 80061; 81001; 82306; 82565; 84443; 84520; 85025; 85652; 99202

== ENCOUNTER 2020-08-24 13:02 | Outpatient (REF) | payer MEDICARE, MEDICAID, SELFPAY ==
--- NOTE | ~2020-08-24 | CT_ITS ---
EXAMINATION: CT ABDOMEN AND PELVIS WITH CONTRAST CLINICAL INFORMATION: Generalized abdominal pain. COMPARISON: None. TECHNIQUE: Multidetector volumetric images were obtained from the superior aspect of the liver through the pubic symphysis following administration 85 mL of Omnipaque 350 intravenous contrast. Sagittal and coronal reformatted images were obtained on the technologist's workstation. Oral contrast: No This CT examination was performed using dose optimization techniques as appropriate, variously including the following: *Automated exposure control *Adjustment of mA and/or kV according to patient size (this includes techniques or standardized protocols for targeted exams where dose is matched to indication/reason for exam; i.e. extremities or head) *Use of iterative reconstruction technique DLP: 219 mGy-cm. FINDINGS: LUNG BASES: Minimal atelectatic changes in left lung base. The heart size is normal. LIVER, GALLBLADDER, AND BILIARY TREE: The liver is normal in size, shape, and attenuation. There is a 2 mm punctate hypodensity segment 8 axial image 14/3. This is too small to correctly characterized. No additional lesions seen. There is no intrahepatic ductal dilatation. The gallbladder is unremarkable with no evidence of radiopaque gallstones, gallbladder wall thickening, or obvious pericholecystic inflammatory changes. PANCREAS: Unremarkable. SPLEEN: Unremarkable. ADRENAL GLANDS: Unremarkable. KIDNEYS AND URETERS: The kidneys are normal in size, shape, and attenuation. No hydronephrosis, hydroureter, or calculi seen. No perinephric stranding. BLADDER: Unremarkable. GASTROINTESTINAL TRACT: There is large amount of stool and oral contrast seen throughout the colon without distention. The small bowel loops are normal caliber. The appendix is normal caliber. ABDOMINAL WALL: No significant hernia is appreciated. LYMPH NODES: Normal. VASCULAR: There is mild arthritic calcification of abdominal aorta. Mid abdominal aorta measures 2 cm. PELVIC VISCERA: The uterus is midline. No adnexal mass or free fluid seen. OSSEOUS STRUCTURES: There is compression fracture L5 vertebra of indeterminate age. There is L5-S1 degenerative disc changes. CT/CT abdomen pelvis w con IMPRESSION: Large amount of stool and oral contrast seen throughout the colon without any distention. No acute intra-abdominal process seen.
[2020-08-24] MEDS: iohexoL 350 MG/ML 100 ML INFUS..BTL IV (15:39)
[2020-08-24] MEDS: Barium Sulfate Oral (Berry) 450 ML ORAL.SUSP 900 ML PO (15:40)
== END 2020-08-24 13:03 | disposition home or self-care (01) ==
LOC: HO.CT 13:02
PROVIDERS: PCP Internal Medicine; Visit Provider Nurse Practitioner
DX: R10.84 Generalized abdominal pain (principal)
CPT/HCPCS: 74177; Q9967

== ENCOUNTER → 2020-08-30 09:24 | Outpatient (BNVA) | payer MEDICARE, MEDICAID, SELFPAY | PROVIDERS: PCP Internal Medicine; Referring Provider Internal Medicine; Visit Provider Internal Medicine Cardiovascular Disease ==

== ENCOUNTER → 2020-09-04 09:09 | Outpatient (REF) | payer MEDICARE, MEDICAID, SELFPAY ==
--- NOTE | 2020-09-04 09:27 | CA_ITS ---
Transthoracic Echocardiogram Patient (Last, First, Middle): Sarah Medina A Gender: Female Date of : 1960 Age: 60 Procedure Date: 09/04/2020 Procedure Type: Transthoracic Echocardiogram Location: OP Height: 157.48 cm Weight: 47.63 kg BSA: 1.45 m2 Heart Rate: bpm BP: 140 / 70 mmHg Ese Teacher: SERGE Referring MD: Michael Snatos MD Symptoms: I34.0 - Nonrheumatic mitral (valve) insufficiency Study Quality: Fair ECG Rhythm: Sinus Conclusions: - The left ventricular systolic function is normal. The visually estimated ejection fraction is between 55-60%. - There is a flail posterior mitral leaflet. There is moderate mitral valve regurgitation. Under estimation possible. Findings Left Ventricle Normal left ventricular cavity size. There is normal left ventricular wall thickness. The left ventricular systolic function is normal. The visually estimated ejection fraction is between 55-60%. There is no evidence of regional wall motion abnormalities. Focal hypertrophy of the basal septum. Right Ventricle Normal right ventricular cavity size and systolic function. Atria The left atrium is mildly dilated. The right atrium is normal in size. Aortic Valve There is a normal trileaflet aortic valve. There is no aortic valve stenosis. There is no aortic valve regurgitation. Mitral Valve The mitral valve appears myxomatous. There is a flail posterior mitral leaflet. There is moderate mitral valve regurgitation. The mitral regurgitation jet is directed anteriorly. There is no mitral valve stenosis. Pulmonic Valve The pulmonic valve was not well visualized. Tricuspid Valve Normal tricuspid valve structure. There is mild tricuspid valve regurgitation. The pulmonary artery systolic pressure is normal. Great Vessels The aortic annulus, sinuses of valsalva, asc aorta, and aortic arch are normal in size. Venous The inferior vena cava is normal in size and collapses greater than 50% with inspiration. Pericardium/Pleural There is no evidence of pericardial effusion. Prior Study Comparison No significant change compared to prior study dated: 03/26/2018. Measurements 2D Linear Measurements RVIDd: 2.47 RVIDd Index: 1.70 IVSd: 0.66 0.6-0.9/0.6-1.0 cm LVIDd: 5.35 3.9-5.3/4.2-5.9 cm LVIDd Index: 3.69 2.4-3.2/2.2-3.1 cm/m2 LVIDs: 2.79 2.0-3.6 cm LVPWd: 0.99 0.7-1.1 cm Ao Root: 3.00 2.1-3.5 cm LV Mass: 198.69 67-162/88-224 g LV Mass Index: 137.03 43-95/49-115 g/m2 LVOT Diam: 2.10 3.0+(-)1.3 cm 2D Systolic Function EF 4C: 54.20 >55% EF 2C: 45.00 >55% EF BiP: 50.30 >55% Mitral Valve MV Pk E: 1.35 MV PK A: 0.84 MV Decel Time: 197.00 E/A: 1.60 E'Lateral: 7.40 E'Medial: 10.00 E/E' Med: 13.50 E/E' Lat: 18.20 MR Vol - PW Dopp: 30.59 MR VTI: 1.61 MR ERO: 19.00 MR Alias Leonel: 0.35 MR RAD: 0.70 Aortic Valve AoV Pk Leonel: 1.02 AoV Mn Leonel: 0.81 AoV VTI: 0.19 AoV Pk Grad: 4.00 Aov Mn Grad: 3.00 EDNA Cont.VTI: 2.83 LVOT LVOT Pk Leonel: 0.78 LVOT Mn Leonel: 0.49 LVOT VTI: 0.15 LVOT Pk Grad: 2.00 LVOT Mn Grad: 1.00 LVOT Diam: 2.10 LVOT Area: 3.46 Diastolic Function MV Pk E: 1.35 MV Pk A: 0.84 E/A: 1.60 E'Medial: 10.00 E/E' Med: 13.50 E' Laterial: 7.40 E/E' Lat: 18.20 Tricuspid Valve TR Pk Leonel: 2.02 TR Pk Grad: 16.00 RA Press: 3.00 RVSP: 19.00 Great Vessels Aorta Ao Root-2D: 3.00 2.0-3.7 cm Ao Asc: 2.90 2.1-3.4 cm Ao Arch: 2.90 Updated in Other Vendor System with Status of Final Nawaf Eastman MD electronically signed on 09/05/2020 12:49:15 PM with status of Final
== END ==
LOC: HO.CARD 09:09
PROVIDERS: PCP Internal Medicine; Visit Provider Internal Medicine Cardiovascular Disease
DX: I34.0 Nonrheumatic mitral (valve) insufficiency (principal)
CPT/HCPCS: 93306; 99202

== ENCOUNTER 2020-09-26 09:40 | Outpatient (REF) | payer MEDICARE, MEDICAID, SELFPAY ==
[2020-09-26 12:05] LABS: Anion Gap 13 (12-20); Blood Urea Nitrogen 13 mg/dL (9-16); Calcium 9.4 mg/dL (8.4-10.2); Carbon Dioxide 28 mmol/L (22-29); Chloride 106 mmol/L (96-108); Estimated Glomerular Filt Rate > 60; Glucose Random 96 mg/dL (60-115); Potassium 4.7 mmol/L (3.3-5.1); Sodium 142 mmol/L (135-145)
[2020-09-26 12:46] LABS: Glucose Urine UA NEG (NEG); Leukocyte Esterase Urine NEG (NEG); Nitrite Urine NEG (NEG); Specific Gravity - Urine <= 1.005 (1.005-1.025); Urine Blood TRACE (NEG); Urine Ketones NEG (NEG); Urine Protein NEG (NEG-TRACE)
[2020-09-26 12:49] LABS: Appearance Urine CLEAR; Color Urine STRAW
[2020-09-26 13:04] LABS: RBC Urine 0-2 /HPF (0); Squamous Epithelial Cell Urine TRACE /LPF; WBC Urine 0 /HPF (0-4)
== END 2020-09-26 09:41 | disposition home or self-care (01) ==
LOC: HO.LAB 09:40
PROVIDERS: Absent Provider Internal Medicine; PCP Internal Medicine; Visit Provider Internal Medicine Cardiovascular Disease
DX: I34.0 Nonrheumatic mitral (valve) insufficiency (principal); I10 Essential (primary) hypertension
CPT/HCPCS: 36415; 80048; 81001; 99212

== ENCOUNTER 2020-10-03 09:29 | Day surgery (SDC) | payer MEDICARE, MEDICAID, SELFPAY ==
--- NOTE | 2020-10-02 08:31 | HO.ANESPROP2 ---
Documented by User: Oliva Gonzalez 10/02/20 08:32 HPI - Anesthesia Eval Consult details Narrative: 60yo F for Transesophageal Echocardiogram PMFSH Active Problems Active Problems: All Active Problems (Updated 08/30/20 @ 10:10 by Michael Santos MD) Mitral valve prolapse (Acute) Mitral regurgitation (Acute) Vomiting (Acute) Early satiety (Acute) Generalized abdominal pain (Acute) GERD (gastroesophageal reflux disease) (Acute) Colon cancer screening (Acute) Paresthesia of left leg (Acute) Allergic rhinitis (Acute) Smoker (Acute) Anxiety (Acute) Facet arthritis of lumbar region (Acute) Cervical spondylosis (Acute) Vitamin D deficiency (Acute) Gastritis (Acute) Pure hypercholesterolemia (Acute) Benign essential hypertension (Acute) COPD (chronic obstructive pulmonary disease) (Acute) Past Medical History Medical History Allergic rhinitis Anxiety Benign essential hypertension Cervical spondylosis COPD (chronic obstructive pulmonary disease) Depression 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 Gastritis GERD (gastroesophageal reflux disease) IV drug user Mitral regurgitation Mitral valve prolapse Paresthesia of left leg Pure hypercholesterolemia Rectal prolapse Smoker Vitamin D deficiency Family History Family History Father Internal bleeding Mother Medical history unknown Surgical History Surgical History History of hysterectomy History of rectal surgery Social History Social History Alcohol intake: former Patient Tobacco Use Status: Current everyday Tobacco user Cigarette Packs Per Day: 1 Cigarettes Per Day: 20.0 Use of substances other than those prescribed or required for medical reasons: Yes Substance Use Type: Marijuana Substance Use Frequency: Daily Are you DNR?: No Advance Directives: No Advance Directives Information Provided: Yes Sexual orientation: Straight/Heterosexual Gender identity: female Meds Allergies Allergy/AdvReac Type Severity Reaction Status Date / Time No Known Allergies Allergy Unknown unknown Verified 08/16/20 14:47 [NO KNOWN ALLERGIES] Home Medications Medication Instructions Recorded Confirmed Last Taken Type escitalopram oxalate 20 mg tablet 20 mg PO DAILY tab 09/26/20 09/26/20 Unknown History Exam Exam Date and Time: October 02, 2020 0831 Pertinent Lab Results Pertinent Lab Results: Laboratory Tests 08/16/20 09/26/20 16:40 11:16 WBC 7.0 Hgb 15.3 Hct 45.8 Plt Count 189 Sodium 142 Potassium 4.7 Chloride 106 Carbon Dioxide 28 BUN 13 Creatinine 0.72 Narrative Narrative: EKG 01/2020 Vent. Rate : 076 BPM Atrial Rate : 076 BPM P-R Int : 198 ms QRS Dur : 098 ms QT Int : 402 ms P-R-T Axes : 080 -44 066 degrees QTc Int : 452 ms Sinus rhythm with occasional Premature ventricular complexes Left axis deviation Abnormal ECG When compared with ECG of 03-APR-2019 14:17, Premature ventricular complexes are now Present ECHO 09/2020 Conclusions: - The left ventricular systolic function is normal. The visually estimated ejection fraction is between 55-60%. - There is a flail posterior mitral leaflet. There is moderate mitral valve regurgitation. Under estimation possible. 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 Gastritis GERD (gastroesophageal reflux disease) IV drug user Mitral regurgitation Mitral valve prolapse Paresthesia of left leg Pure hypercholesterolemia Rectal prolapse Smoker Vitamin D deficiency Family History Family History Father Internal bleeding Mother Medical history unknown Surgical History Surgical History History of hysterectomy History of rectal surgery Social History Social History Alcohol intake: former Patient Tobacco Use Status: Current everyday Tobacco user Cigarette Packs Per Day: 1 Cigarettes Per Day: 20.0 Use of substances other than those prescribed or required for medical reasons: Yes Substance Use Type: Marijuana Substance Use Frequency: Daily Are you DNR?: No Advance Directives: No Advance Directives Information Provided: Yes Sexual orientation: Straight/Heterosexual Gender identity: female Meds Allergies Allergy/AdvReac Type Severity Reaction Status Date / Time No Known Allergies Allergy Unknown unknown Verified 08/16/20 14:47 [NO KNOWN ALLERGIES] Home Medications Medication Instructions Recorded Confirmed Last Taken Type escitalopram oxalate 20 mg tablet 20 mg PO DAILY tab 09/26/20 09/26/20 Unknown History Exam Airway Mallampati Class: I TM Dist: <=3cm Neck ROM: Limited Denture: Upper and Lower Assessment and Plan Assessment Anesthesia Assessment: Anesthesia Plan Discussed, Smoking Cess. Discussed and Chart Reviewed Final Anesthetic Review NPO: Yes ASA Class: III Final Preanesthetic Review: No Changes in Pt Med Stat, Meds/Allgs Chart Reviewed, Consent Obtained/Reviewed and Anes Risks/Benef Reviewed Patient Risk: Intermediate Procedure Risk: Low Assessment/Block/Sedation in SS: Assess/Block/Sedation-SS Anesthetic Plan Anesthetic Plan: MAC: Disposition: Standard PACU
[2020-10-03] VITALS (7 sets, daily range): BP systolic 79–127; BP diastolic 37–73; PULSE 66–94; RESP 16–18; TEMP 36.4–37; O2SAT 93–97; BMI 20.1
--- NOTE | 2020-10-03 08:45 | MHC.SHP ---
Pre-Procedural Eval Section A Date of Service: 10/03/20 The patient is an INPATIENT: No Changes since office visit: Yes Patient answered all questions; No Cold of Flu in the past 2 weeks, No New Medical Problems and No Changes in Medication Section B Chief Complaint: mitral valve insifficiency Allergies: Allergies Allergy/AdvReac Type Severity Reaction Status Date / Time No Known Allergies Allergy Unknown unknown Verified 08/16/20 14:47 [NO KNOWN ALLERGIES] Plan I have reviewed the history and physical and performed a pertinent physical examination on my patient. No changes have occurred unless specified.
--- NOTE | 2020-10-03 08:46 | CA_ITS ---
Transesophageal Echocardiogram Patient (Last, First, Middle): Sarah Medina A Gender: Female Date of : 1960 Age: 60 Procedure Date: 10/03/2020 Procedure Type: Transesophageal Echocardiogram Location: OP Height: 157.48 cm Weight: kg Room Clerk: ISHA Referring MD: Michael Santos MD Rn Licensed Practical: Michael Santos MD Symptoms: I34.0 Non Rhumatic Mitral regurgitation Conclusion: ??? 1. Normal LV systolic and diastolic function 2. Moderately severe eccentric jet of mitral regurgitation due to severe prolapse of the posterior middle scallop 3. Mildly dilated left atrium 4. Moderate atherosclerotic changes noted in the descending and arch of the aorta 5. No intracardiac thrombi, masses or vegetations 6. No gross pericardial effusion Findings Procedure Information Consent was obtained prior to the procedure. Pre JHONNY oral cavity was checked and revealed no overcrowding. The adult 3D probe was passed with no difficulty. Left Ventricle Normal left ventricular size, thickness, and systolic function. The visually estimated ejection fraction is between 60-65%. Spectral Doppler is indicative of a normal filling pattern. Right Ventricle Normal right ventricular cavity size and systolic function. Atria The left atrium is mildly dilated. There is lipomatous hypertrophy of the interatrial septum. There is no evidence of interatrial shunt. There is no evidence of a patent foramen ovale. There is no evidence of thrombus or mass in the left atrium. The left atrial appendage was noted in multiple views. There is no clots or masses noted with the left atrial appendage. The left upper, right upper and right lower pulmonary vein drain normally into the left atrium. The right atrium is normal in size. There is no evidence of thrombus or mass in the right atrium. Aortic Valve Normal aortic valve structure and function. There is no aortic valve stenosis. There is no evidence of a mass on the aortic valve. There is no aortic valve regurgitation. Mitral Valve The mitral valve appears myxomatous. There is mild anterior and severe posterior mitral leaflet thickening. There is severe posterior mitral leaflet prolapse involving the middle scallop/P2. There is moderate to severe mitral valve regurgitation. The mitral regurgitation jet is a wall impinging jet. There is no mass noted on the mitral valve. Calculated effective orifice area is 0.35 centimeters sq with the mitral regurgitation volume of 45 mL consistent with moderately severe mitral regurgitation. Calculation of mitral regurgitation could be underestimated due to eccentric nature of the jet Pulmonic Valve The pulmonic valve is normal. There is trace to mild pulmonic valve regurgitation. Tricuspid Valve Normal tricuspid valve structure. There is trace tricuspid valve regurgitation. Great Vessels All visible segments of the aorta are normal in size. The visualized portions of the pulmonary artery and branches are normal. Moderate atherosclerotic plaque noted in the descending as well as the arch of the aorta Venous The inferior vena cava is normal in size. Pericardium/Pleural There is no evidence of pericardial effusion. Measurements Mitral Valve MR Vol - PW Dopp: 44.45 MR VTI: 1.27 MR ERO: 35.00 MR Alias Leonel: 0.31 MR RAD: 0.90 Updated by Michael Santos on 03:41 PM with Status of Final Michael Santos MD electronically signed on 10/03/2020 3:41:28 PM with status of Final
[2020-10-03] MEDS: Lactated Ringers 1,000 ML 50 ML IVCONT (10:32)
== END 2020-10-03 14:26 | disposition home or self-care (01) ==
PROVIDERS: PCP Internal Medicine; Visit Provider Internal Medicine Cardiovascular Disease
PROC: (CPT 93312; principal; 2020-10-03 12:00)
DX: I34.0 Nonrheumatic mitral (valve) insufficiency (principal); I34.1 Nonrheumatic mitral (valve) prolapse; I10 Essential (primary) hypertension; J44.9 Chronic obstructive pulmonary disease, unspecified; Z79.82 Long term (current) use of aspirin; Z79.1 Long term (current) use of non-steroidal anti-inflammatories (NSAID); Z79.899 Other long term (current) drug therapy; F17.210 Nicotine dependence, cigarettes, uncomplicated
CPT/HCPCS: 93312; J2405; J3010

== ENCOUNTER 2020-10-13 18:06 | Emergency (ER) | payer MEDICARE, MEDICAID, SELFPAY ==
--- NOTE | ~2020-10-13 | XR_ITS ---
EXAMINATION: XR CHEST CLINICAL INFORMATION: Chest pain COMPARISON: Chest x-ray June 22, 2019 TECHNIQUE: Frontal view of the chest was obtained. 7:56 PM FINDINGS: No significant abnormality is noted involving the heart, lungs, mediastinum, bony thorax or soft tissues. XR/XR chest 1V IMPRESSION: Unremarkable examination.
[2020-10-13 18:18] VITALS: BP 192/110; PULSE 132; RESP 18; TEMP 36.6; O2SAT 96; BMI 21.4
--- NOTE | 2020-10-13 19:58 | ECG_ITS ---
Test Reason : ETOH Blood Pressure : / mmHG Vent. Rate : 079 BPM Atrial Rate : 079 BPM P-R Int : 190 ms QRS Dur : 098 ms QT Int : 410 ms P-R-T Axes : 075 -28 080 degrees QTc Int : 470 ms Normal sinus rhythm Normal ECG When compared with ECG of 25-JAN-2020 15:12, Premature ventricular complexes are no longer Present Referred By: Mihaela Clemons Electronically Signed By:CHRISTELLE HESS
[2020-10-13 20:26] VITALS: BP 154/96; PULSE 87; RESP 14; TEMP 36.9; O2SAT 98
[2020-10-13 20:44] LABS: MANUAL DIFF FLAG NO
[2020-10-13 20:45] LABS: Basophils Absolute Auto 0.1 X10*3/uL (0.0-0.2); Basophils Percent Auto 0.5 % (0-2); Eosinophils Absolute Auto 0.1 X10*3/uL (0.0-0.4); Eosinophils Percent Auto 0.9 % (0-4); Hematocrit 41.3 % (37-47); Hemoglobin 13.8 g/dl (12.0-16.0); Imm Gran Abs Auto 0.03 X10*3/uL (0.00-0.03); Imm Gran Pct Auto 0.3 % (0.0-0.4); Lymphocytes Absolute Auto 1.9 X10*3/uL (1.2-4.9); Lymphocytes Percent Auto 19.5 % (20-40); Mean Corpuscular HGB Conc 33.4 g/dl (31.0-35.0); Mean Corpuscular Hemoglobin 29.9 pg (27.0-33.0); Mean Corpuscular Volume 89.4 fL (80-98); Mean Platelet Volume 8.5 fL (9.4-12.3); Monocytes Absolute Auto 0.8 X10*3/uL (0.1-1.2); Monocytes Percent Auto 8.1 % (2-11); Neutrophils Absolute Auto 6.8 X10*3/uL (2.0-8.3); Neutrophils Percent Auto 70.7 % (45-73); Platelet Count 188 X10*3/uL (160-400); Red Blood Count 4.62 X10*6/uL (4.20-5.50); Red Cell Distribution Width 13.3 % (11.0-16.0); White Blood Count 9.6 X10*3/uL (4.8-10.8)
[2020-10-13 21:10] LABS: Ethanol < 10 mg/dL
--- NOTE | 2020-10-13 21:10 | PC.NURSE ---
pt denies nausea at this time and is eating a sandwhich and drinking fluids, while watching tv.
[2020-10-13 21:13] LABS: Alanine Aminotransferase 6 U/L (0-31); Albumin Level 4.4 g/dL (3.5-5.0); Alkaline Phosphatase 58 U/L (39-117); Anion Gap 13 (12-20); Aspartate Amino Transferase 14 U/L (5-31); Bilirubin Direct 0.2 mg/dL (0.0-0.5); Bilirubin Total 0.5 mg/dL (0.0-1.0); Blood Urea Nitrogen 7 mg/dL (9-16); Calcium 9.3 mg/dL (8.4-10.2); Carbon Dioxide 26 mmol/L (22-29); Chloride 106 mmol/L (96-108); Creatinine Clr Calc Pharmacy 63.1; Estimated Glomerular Filt Rate > 60; Glucose Random 84 mg/dL (60-115); Magnesium 2.1 mg/dL (1.6-2.6); Sodium 141 mmol/L (135-145); Total Protein 7.1 g/dL (6.5-8.0)
[2020-10-13 21:16] LABS: Troponin-I High Sensitivity 4.7 ng/L (<3.5-17.0)
[2020-10-13 21:42] LABS: Amphetamine Screen Urine Not Detected (Not Detect); Barbiturates, Urine Not Detected (Not Detect); Benzodiazepines Screen Urine Not Detected (Not Detect); Cannabinoid Screen Urine POSITIVE (Not Detect); Cocaine Screen Urine POSITIVE (Not Detect); Opiate Screen Urine Not Detected (Not Detect); Phencyclidine Screen Urine Not Detected (Not Detect)
[2020-10-13 22:13] VITALS: BP 132/86; PULSE 98; RESP 16; O2SAT 98
--- NOTE | 2020-10-13 22:44 | ED.GENADULT ---
HPI - General Adult General Chief complaint: ETOH/Substance Use Stated complaint: drug use Time Seen by Provider: 10/13/20 19:45 Source: patient and EMS Mode of arrival: EMS History of Present Illness HPI narrative: 60-year-old female with a past medical history anxiety, HTN, COPD, depression, endocarditis, gastritis, GERD, IV drug abuse, vitamin D deficiency, presenting to the ED complaining of chest pressure/palpitations s/p injecting cocaine [employer]. Admits symptoms improved at present. Reports has been sober since 2019, was cleaning house and found bag of cocaine, was feeling sad/lonely so injected in bilateral hands. Denies other illicit drugs/ETOH. Denies SI/HI. Denies injury/trauma or falls, SOB, abdominal pain, nausea/vomiting at present, numbness, tingling, weakness Related Data Home Medications Medication Instructions Recorded Confirmed escitalopram oxalate 20 mg tablet 20 mg PO DAILY tab 09/26/20 10/12/20 fluticasone propionate 50 1 spray INTRANASAL DAILY 10/12/20 10/12/20 mcg/actuation nasal spray,suspension Previous Rx's Medication Instructions Recorded albuterol sulfate 90 mcg/actuation 1 puff PO Q6H PRN #18 g 02/23/20 aerosol inhaler pantoprazole 40 mg tablet,delayed 40 mg PO DAILY 90 Days #90 tab 05/29/20 release hydroxyzine HCl 50 mg tablet 50 mg PO BEDTIME #90 tab 06/06/20 tiotropium bromide 18 mcg capsule 1 cap INHALATION DAILY 30 Days #30 06/07/20 with inhalation device inh simvastatin 40 mg tablet 40 mg PO BEDTIME 90 Days #90 tab 07/16/20 dicyclomine 10 mg capsule 10 mg PO QID 30 Days #120 cap 08/16/20 cyclobenzaprine 5 mg tablet 5 mg PO TID PRN 30 Days #90 tab 08/19/20 aspirin 81 mg tablet,delayed 81 mg PO DAILY #30 tab 08/30/20 release cholecalciferol (vitamin D3) 50 50 mcg PO DAILY 90 Days #90 cap 08/30/20 mcg (2,000 unit) capsule ibuprofen 600 mg tablet 600 mg PO Q8H PRN 30 Days #90 tab 09/11/20 lorazepam 1 mg tablet 1 mg PO BID PRN 28 Days #56 tab 09/20/20 lisinopril 5 mg tablet 5 mg PO DAILY #30 tab 09/26/20 silver sulfadiazine 1 % topical 1 appl TOPICAL DAILY 30 Days #85 g 10/05/20 cream oxycodone 5 mg tablet 5 mg PO .1-2 times daily PRN 10 10/10/20 Days #20 tab Allergies Allergy/AdvReac Type Severity Reaction Status Date / Time No Known Allergies Allergy Unknown unknown Verified 10/12/20 16:28 [NO KNOWN ALLERGIES] Review of Systems Review of Systems: Constitutional: No Fever, No Chills Cardiovascular: + Chest Pain, No SOB, + Palpitations Respiratory: No Cough, No Dyspnea Gastrointestinal: No Nausea, No Vomiting, No Diarrhea, No Abdominal pain Genitourinary: No Dysuria, No Hematuria Musculoskeletal: No joint pain, No Myalgias, No Joint Swelling Skin: No Skin Lesions, No rash Neuro: No Weakness, No Numbness, No Paresthesias, No Loss of Consciousness, No Dizziness, No Headache Psych: + Depression, No SI/HI Yes all other systems are reviewed and are negative [facility] Past Medical History Attestation statement: The following information was validated with the patient. Medical History Allergic rhinitis Anxiety Benign essential hypertension Cervical spondylosis COPD (chronic obstructive pulmonary disease) Depression 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 Gastritis GERD (gastroesophageal reflux disease) IV drug user Mitral regurgitation Mitral valve prolapse Paresthesia of left leg Pure hypercholesterolemia Rectal prolapse Smoker Vitamin D deficiency Surgical History History of hysterectomy History of rectal surgery Family History Family History Father Internal bleeding Mother Medical history unknown Social History Social History Alcohol intake: former Patient Tobacco Use Status: Current everyday Tobacco user Cigarettes Per Day: 12 Substance Use Type: Marijuana Advance Directives: No Advance Directives Information Provided: Yes Sexual orientation: Straight/Heterosexual Gender identity: female Physical Exam Vital Signs: Vital Signs: Last Vital Signs Temp 98.5 F 10/13/20 20:26 Pulse 69 10/14/20 00:31 Resp 13 10/14/20 00:31 BP 110/62 10/14/20 00:31 Pulse Ox 97 10/14/20 00:31 Body Mass Index 21.4 Const: General: cooperative, no acute distress, alert and awake Orientation/consciousness: patient oriented x3 Limitations: no limitations HENMT: Head: Yes normal to inspection and Yes atraumatic Ears: hearing grossly normal bilaterally General nose exam: Normal external nose present Face and sinus: Yes normal facial exam Eyes: General: appearance normal, both eyes and all related structures Pupils: Equal, round and reactive pupils present EOM: EOMs intact bilaterally Neck: Neck: Yes normal visual inspection and Yes no meningeal signs Resp: Effort & Inspection: normal respiratory effort Auscultation: clear to auscultation bilaterally, no rhonchi and no wheezes Cardio: Rate: tachycardic Heart sounds: S1 normal heart sound present and S2 normal heart sound present GI: Inspection: Yes normal to inspection Palpation (GI): Soft to palpation, nontender, no guarding and not rigid Skin: Other: + multiple areas of ecchymosis noted to bilateral hands. Bilateral radial pulses intact Rashes: no rashes Neuro: General: patient oriented x3 and no meningeal signs Cranial nerves: Yes Equal, round and reactive pupils present Gait exam (Neuro): Normal gait present Extrem: General: Yes normal to inspection Psych: Thought content: suicidality, no homicidality and Depressive thoughts present Course Course Course Narrative: -no leukocytosis, H&H stable, initial troponin 4.7>> will obtain 3 hour repeat -tox screen positive for cocaine and THC XR chest 1V IMPRESSION: Unremarkable examination. -0100--repeat troponin without 50% rise, UT unlikely > results discussed with patient including worrisome signs and symptoms and strict return precautions. Patient was supplied with resources for detox facilities and encouraged to return to the ED if she has any suicidal/ homicidal ideations, she verbalized understanding and feels safe for discharge home Medical Decision Making MDM Narrative Medical decision making narrative: 60-year-old female with a past medical history anxiety, HTN, COPD, depression, endocarditis, gastritis, GERD, IV drug abuse, vitamin D deficiency, presenting to the ED complaining of chest pressure/palpitations s/p injecting cocaine [employer]. Admits symptoms improved at present. On exam hypertensive, tachycardic, tearful/depressed on exam, concern for cocaine induced chest pain vs ACS vs anxiety/depression. Rule out metabolic abnormalities and infectious etiology. Patient denies SI/HI Plan: EKG, labs, CXR, care team consult Lab Data Result diagrams: 10/13/20 20:37 10/13/20 20:37 Labs: Lab Results 10/13/20 10/13/20 10/13/20 Range/Units 20:37 20:37 20:37 WBC 9.6 (4.8-10.8) X10*3/uL RBC 4.62 (4.20-5.50) X10*6/uL Hgb 13.8 (12.0-16.0) g/dl Hct 41.3 (37-47) % MCV 89.4 (80-98) fL MCH 29.9 (27.0-33.0) pg MCHC 33.4 (31.0-35.0) g/dl RDW 13.3 (11.0-16.0) % Plt Count 188 (160-400) X10*3/uL MPV 8.5 L (9.4-12.3) fL Immature Gran % (Auto) 0.3 (0.0-0.4) % Neut % (Auto) 70.7 (45-73) % Lymph % (Auto) 19.5 L (20-40) % [place] % (Auto) 8.1 (2-11) % Eos % (Auto) 0.9 (0-4) % Baso % (Auto) 0.5 (0-2) % Lymph # (Auto) 1.9 (1.2-4.9) X10*3/uL [place] # (Auto) 0.8 (0.1-1.2) X10*3/uL Eos # (Auto) 0.1 (0.0-0.4) X10*3/uL Baso # (Auto) 0.1 (0.0-0.2) X10*3/uL Abs Immat Gran (auto) 0.03 (0.00-0.03) X10*3/uL Absolute Neuts (auto) 6.8 (2.0-8.3) X10*3/uL Absolute Nucleated RBC 0.000 (0.0-0.012) X10*3/uL Nucleated RBC % (auto) 0.0 (0.0-0.2) /100WBC Sodium 141 (135-145) mmol/L Potassium 4.0 (3.3-5.1) mmol/L Chloride 106 (96-108) mmol/L Carbon Dioxide 26 (22-29) mmol/L Anion Gap 13 (12-20) BUN 7 L (9-16) mg/dL Creatinine 0.74 (0.5-1.4) mg/dL Estim Creat Clear Calc 63.1 Estimated GFR > 60 Random Glucose 84 (60-115) mg/dL Calcium 9.3 (8.4-10.2) mg/dL Magnesium 2.1 (1.6-2.6) mg/dL Total Bilirubin 0.5 (0.0-1.0) mg/dL Direct Bilirubin 0.2 (0.0-0.5) mg/dL AST 14 (5-31) U/L ALT 6 (0-31) U/L Alkaline Phosphatase 58 (39-117) U/L Troponin I High Sens 4.7 (<3.5-17.0) ng/L Total Protein 7.1 (6.5-8.0) g/dL Albumin 4.4 (3.5-5.0) g/dL Urine Opiates Screen (Not Detect) Ur Barbiturates Screen (Not Detect) Ur Phencyclidine Scrn (Not Detect) Ur Amphetamines Screen (Not Detect) U Benzodiazepines Scrn (Not Detect) Urine Cocaine Screen (Not Detect) U Marijuana (THC) Screen (Not Detect) Ethyl Alcohol mg/dL 10/13/20 10/13/20 10/14/20 Range/Units 20:37 21:01 00:28 WBC (4.8-10.8) X10*3/uL RBC (4.20-5.50) X10*6/uL Hgb (12.0-16.0) g/dl Hct (37-47) % MCV (80-98) fL MCH (27.0-33.0) pg MCHC (31.0-35.0) g/dl RDW (11.0-16.0) % Plt Count (160-400) X10*3/uL MPV (9.4-12.3) fL Immature Gran % (Auto) (0.0-0.4) % Neut % (Auto) (45-73) % Lymph % (Auto) (20-40) % [place] % (Auto) (2-11) % Eos % (Auto) (0-4) % Baso % (Auto) (0-2) % Lymph # (Auto) (1.2-4.9) X10*3/uL [place] # (Auto) (0.1-1.2) X10*3/uL Eos # (Auto) (0.0-0.4) X10*3/uL Baso # (Auto) (0.0-0.2) X10*3/uL Abs Immat Gran (auto) (0.00-0.03) X10*3/uL Absolute Neuts (auto) (2.0-8.3) X10*3/uL Absolute Nucleated RBC (0.0-0.012) X10*3/uL Nucleated RBC % (auto) (0.0-0.2) /100WBC Sodium (135-145) mmol/L Potassium (3.3-5.1) mmol/L Chloride (96-108) mmol/L Carbon Dioxide (22-29) mmol/L Anion Gap (12-20) BUN (9-16) mg/dL Creatinine (0.5-1.4) mg/dL Estim Creat Clear Calc Estimated GFR Random Glucose (60-115) mg/dL Calcium (8.4-10.2) mg/dL Magnesium (1.6-2.6) mg/dL Total Bilirubin (0.0-1.0) mg/dL Direct Bilirubin (0.0-0.5) mg/dL AST (5-31) U/L ALT (0-31) U/L Alkaline Phosphatase (39-117) U/L Troponin I High Sens 5.4 (<3.5-17.0) ng/L Total Protein (6.5-8.0) g/dL Albumin (3.5-5.0) g/dL Urine Opiates Screen Not Detected (Not Detect) Ur Barbiturates Screen Not Detected (Not Detect) Ur Phencyclidine Scrn Not Detected (Not Detect) Ur Amphetamines Screen Not Detected (Not Detect) U Benzodiazepines Scrn Not Detected (Not Detect) Urine Cocaine Screen POSITIVE H (Not Detect) U Marijuana (THC) Screen POSITIVE H (Not Detect) Ethyl Alcohol < 10 mg/dL ECG Data Attestation: I personally reviewed and interpreted this ECG as follows: Interpretation: EKG normal sinus rhythm with rate of 79. Nonischemic/no STEMI Discharge Plan Discharge Clinical Impression: Substance abuse, Chest pain Patient Disposition: Home, Self-Care Instructions: Chest Pain (ED), Polysubstance Abuse (ED) Additional Instructions: Your blood work was reassuring today in the emergency department Please do not use any drugs or alcohol they can kill you If you have any thoughts of hurting herself or hurting others please return to the ED Your supplied with detox program resources Prescriptions: No Action albuterol sulfate [Ventolin HFA] 90 mcg/actuation HFA aerosol inhaler 1 puff PO Q6H PRN (Reason: shortness of breath or wheezing) Qty: 18 RF: 3 pantoprazole 40 mg tablet,delayed release (DR/EC) 40 mg PO DAILY 90 Days Qty: 90 RF: 1 hydroxyzine HCl 50 mg tablet 50 mg PO BEDTIME Qty: 90 RF: 1 Spiriva with HandiHaler 18 mcg capsule, w/inhalation device 1 cap inhalation DAILY 30 Days Qty: 30 RF: 3 cyclobenzaprine 5 mg tablet 5 mg PO TID PRN (Reason: muscle spasm) 30 Days Qty: 90 RF: 1 cholecalciferol (vitamin D3) 50 mcg (2,000 unit) capsule 50 mcg PO DAILY 90 Days Qty: 90 RF: 3 ibuprofen 600 mg tablet 600 mg PO Q8H PRN (Reason: pain) 30 Days Qty: 90 RF: 1 lorazepam 1 mg tablet 1 mg PO BID PRN (Reason: anxiety) 28 Days Qty: 56 RF: 0 silver sulfadiazine [Silvadene] 1 % cream 1 appl topical DAILY 30 Days Qty: 85 RF: 0 oxycodone 5 mg tablet 5 mg PO .1-2 times daily PRN (Reason: pain) 10 Days Qty: 20 RF: 0 simvastatin 40 mg tablet 40 mg PO BEDTIME 90 Days Qty: 90 RF: 1 fluticasone propionate 50 mcg/actuation spray,suspension 1 spray intranasal DAILY RF: 0 dicyclomine 10 mg capsule 10 mg PO QID 30 Days Qty: 120 RF: 3 aspirin [Ecotrin Low Strength] 81 mg tablet,delayed release (DR/EC) 81 mg PO DAILY Qty: 30 RF: 5 escitalopram oxalate 20 mg tablet 20 mg PO DAILY RF: 0 lisinopril 5 mg tablet 5 mg PO DAILY Qty: 30 RF: 5 Referrals: Sarthak Person MD [Primary Care Provider] - 2 days [facility] [Physician] - 2 days
--- NOTE | 2020-10-14 00:27 | PC.NURSE ---
pt is a difficult stick for labs 2nd pct trying.
[2020-10-14 00:31] VITALS: BP 110/62; PULSE 69; RESP 13; O2SAT 97
[2020-10-14 00:56] LABS: Troponin-I High Sensitivity 5.4 ng/L (<3.5-17.0)
== END 2020-10-14 01:26 | disposition home or self-care (01) ==
PROVIDERS: Physician Assistant; Emergency Provider Internal Medicine; PCP Internal Medicine
DX: R07.9 Chest pain, unspecified (principal); F14.10 Cocaine abuse, uncomplicated; I10 Essential (primary) hypertension; J44.9 Chronic obstructive pulmonary disease, unspecified; Z79.899 Other long term (current) drug therapy
CPT/HCPCS: 36415; 71045; 80048; 80076; 80307; 82077; 83735; 84484; 85025; 93005; 99284; 99285

== ENCOUNTER 2020-10-15 03:48 | Emergency (ER) | payer MEDICARE, MEDICAID, SELFPAY ==
--- NOTE | ~2020-10-15 | XR_ITS ---
EXAMINATION: XR CHEST CLINICAL INFORMATION: Cough COMPARISON: 10/13/2020 TECHNIQUE: Frontal view of the chest was obtained. FINDINGS: The lungs are well expanded. There is no focal consolidation, edema, or effusion. No pneumothorax. The cardiomediastinal silhouette is within normal limits. No acute osseous abnormality. XR/XR chest 1V IMPRESSION: Clear lungs.
[2020-10-15 04:00] VITALS: BP 183/108; PULSE 111; RESP 16; TEMP 36.8; O2SAT 98; BMI 21.2
--- NOTE | 2020-10-15 04:08 | ECG_ITS ---
Test Reason : CHEST PAIN Blood Pressure : / mmHG Vent. Rate : 070 BPM Atrial Rate : 070 BPM P-R Int : 180 ms QRS Dur : 094 ms QT Int : 420 ms P-R-T Axes : 000 -34 065 degrees QTc Int : 453 ms Sinus rhythm with frequent Premature ventricular complexes Left axis deviation Abnormal ECG When compared with ECG of 13-OCT-2020 20:23, Premature ventricular complexes are now Present Referred By: Nicole Go Electronically Signed By:Tico Edmonds
--- NOTE | 2020-10-15 04:10 | ED.GENADULT ---
HPI - General Adult General Chief complaint: Nausea/Vomiting/Diarrhea Stated complaint: vomiting Time Seen by Provider: 10/15/20 03:51 Source: patient Mode of arrival: ambulatory Limitations: no limitations History of Present Illness HPI narrative: Patient comes emergency room complaining of nausea, dry heaves, mild epigastric discomfort. Patient was seen here on October 13, patient used cocaine, started feeling chest pain and anxiety and to the emergency room. Patient states that since she was in here, she has not used marijuana or any drugs. At this time, patient states she does not have chest pain, no shortness of breath, complaining of mild cough Related Data Home Medications Medication Instructions Recorded Confirmed escitalopram oxalate 20 mg tablet 20 mg PO DAILY tab 09/26/20 10/12/20 fluticasone propionate 50 1 spray INTRANASAL DAILY 10/12/20 10/12/20 mcg/actuation nasal spray,suspension Previous Rx's Medication Instructions Recorded albuterol sulfate 90 mcg/actuation 1 puff PO Q6H PRN #18 g 02/23/20 aerosol inhaler pantoprazole 40 mg tablet,delayed 40 mg PO DAILY 90 Days #90 tab 05/29/20 release hydroxyzine HCl 50 mg tablet 50 mg PO BEDTIME #90 tab 06/06/20 tiotropium bromide 18 mcg capsule 1 cap INHALATION DAILY 30 Days #30 06/07/20 with inhalation device inh simvastatin 40 mg tablet 40 mg PO BEDTIME 90 Days #90 tab 07/16/20 dicyclomine 10 mg capsule 10 mg PO QID 30 Days #120 cap 08/16/20 cyclobenzaprine 5 mg tablet 5 mg PO TID PRN 30 Days #90 tab 08/19/20 aspirin 81 mg tablet,delayed 81 mg PO DAILY #30 tab 08/30/20 release cholecalciferol (vitamin D3) 50 50 mcg PO DAILY 90 Days #90 cap 08/30/20 mcg (2,000 unit) capsule ibuprofen 600 mg tablet 600 mg PO Q8H PRN 30 Days #90 tab 09/11/20 lorazepam 1 mg tablet 1 mg PO BID PRN 28 Days #56 tab 09/20/20 lisinopril 5 mg tablet 5 mg PO DAILY #30 tab 09/26/20 silver sulfadiazine 1 % topical 1 appl TOPICAL DAILY 30 Days #85 g 10/05/20 cream oxycodone 5 mg tablet 5 mg PO .1-2 times daily PRN 10 10/10/20 Days #20 tab omeprazole 20 mg PO DAILY #10 cap 10/15/20 Allergies Allergy/AdvReac Type Severity Reaction Status Date / Time No Known Allergies Allergy Unknown unknown Verified 10/12/20 16:28 [NO KNOWN ALLERGIES] Review of Systems Review of Systems: Constitutional : No Weight loss, No Fever, No Chills, No Night Sweats, No Fatigue, No Malaise ENT/Mouth : No Hearing loss, No Ear Pain, No Nasal Congestion, No Sinus Pain, No Hoarseness, No sore throat, No Rhinorrhea, No Swallowing Difficulty Eyes: No Eye Pain, No Swelling, No Redness, No Foreign Body, No Discharge, No Vision Changes Cardiovascular : No Chest Pain, No SOB, No Dyspnea on Exertion, No Orthopnea, No Edema, No Palpitations Respiratory : Mild Cough, No Sputum, No Wheezing, No Smoke Exposure, No Dyspnea Gastrointestinal : Complaining of Nausea, No Vomiting, No Diarrhea, No Constipation, complaining of mild epigastric Pain, No Hematochezia, No Melena Genitourinary : no irregular bleeding, No Dysuria, No Urinary Frequency, No Hematuria, No Urinary Incontinence, No Urgency, No Flank Pain, No Urinary Flow Changes, No Hesitancy Musculoskeletal : No joint pain, No Myalgias, No Joint Swelling Skin : No Skin Lesions, No rash Neuro : No Weakness, No Numbness, No Paresthesias, No Loss of Consciousness, No Dizziness, No Headache Psych : No Anxiety/Panic, No Depression, No SI/HI/AH/VH, No Social Issues, Heme/Lymph: No Bruising, No Bleeding,No Lymphadenopathy Endocrine : No Polyuria, No Polydipsia, No Temperature Intolerance [facility] Past Medical History Medical History Allergic rhinitis Anxiety Benign essential hypertension Cervical spondylosis COPD (chronic obstructive pulmonary disease) Depression 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 Gastritis GERD (gastroesophageal reflux disease) IV drug user Mitral regurgitation Mitral valve prolapse Paresthesia of left leg Pure hypercholesterolemia Rectal prolapse Smoker Vitamin D deficiency Surgical History History of hysterectomy History of rectal surgery Family History Family History Father Internal bleeding Mother Medical history unknown Social History Social History Alcohol intake: former Patient Tobacco Use Status: Current everyday Tobacco user Cigarettes Per Day: 12 Substance Use Type: Marijuana Advance Directives: No Advance Directives Information Provided: No Patient : No Sexual orientation: Straight/Heterosexual Gender identity: female Physical Exam Vital Signs: Vital Signs: Last Vital Signs Temp 98.3 F 10/15/20 04:00 Pulse 111 H 10/15/20 04:00 Resp 16 10/15/20 04:00 BP 183/108 H 10/15/20 04:00 Pulse Ox 98 10/15/20 04:00 Body Mass Index 21.2 Appearance: Alert. Oriented X3. No acute distress. Eyes: Pupils equal, round and reactive to light. ENT: Pharynx normal. Neck: Normal inspection. Neck supple. No lymph nodes noted. No crepitus CVS: Normal heart rate and rhythm. Pulses normal. Normal S1 and S2, +3 systolic murmur (not new per patient) Respiratory: No respiratory distress. Breath sounds normal. No Wheezing. No rales Abdomen: Soft and nontender. No rigidity. No distention. good BS x4 Skin: Skin warm and dry. Normal skin color. Normal skin turgor. Extremities: No lower extremity edema. No Lacerations. No Rash Neuro: Oriented X 3. No motor deficit. No sensory deficit. Moving all extermities. No slurred speech. Course Course Course Narrative: I discussed the labs with the patient, troponin negative. Patient was provided with a GI cocktail. Patient's abdominal pain likely gastritis. Medical Decision Making Lab Data Result diagrams: 10/15/20 04:26 10/15/20 04:26 Labs: Lab Results 10/15/20 Range/Units 04:26 WBC 5.8 (4.8-10.8) X10*3/uL RBC 4.90 (4.20-5.50) X10*6/uL Hgb 14.9 (12.0-16.0) g/dl Hct 43.0 (37-47) % MCV 87.8 (80-98) fL MCH 30.4 (27.0-33.0) pg MCHC 34.7 (31.0-35.0) g/dl RDW 13.2 (11.0-16.0) % Plt Count 195 (160-400) X10*3/uL MPV 8.6 L (9.4-12.3) fL Immature Gran % (Auto) 0.3 (0.0-0.4) % Neut % (Auto) 45.2 (45-73) % Lymph % (Auto) 37.2 (20-40) % [place] % (Auto) 12.7 H (2-11) % Eos % (Auto) 3.6 (0-4) % Baso % (Auto) 1.0 (0-2) % Lymph # (Auto) 2.2 (1.2-4.9) X10*3/uL [place] # (Auto) 0.7 (0.1-1.2) X10*3/uL Eos # (Auto) 0.2 (0.0-0.4) X10*3/uL Baso # (Auto) 0.1 (0.0-0.2) X10*3/uL Abs Immat Gran (auto) 0.02 (0.00-0.03) X10*3/uL Absolute Neuts (auto) 2.6 (2.0-8.3) X10*3/uL Absolute Nucleated RBC 0.000 (0.0-0.012) X10*3/uL Nucleated RBC % (auto) 0.0 (0.0-0.2) /100WBC Imaging Data Chest x-ray: Radiologist's impression: FINDINGS: The lungs are well expanded. There is no focal consolidation, edema, or effusion. No pneumothorax. The cardiomediastinal silhouette is within normal limits. No acute osseous abnormality. XR/XR chest 1V IMPRESSION: Clear lungs. ECG Data Attestation: I personally reviewed and interpreted this ECG as follows: (Senna rhythm, heart rate 70, no ST segment depression or elevation, no T-wave inversion, occasional PVCs, QTC 453) Discharge Plan Discharge Clinical Impression: Gastritis Patient Disposition: Home, Self-Care Instructions: Gastritis (ED), Diet for Stomach Ulcers and Gastritis (ED) Additional Instructions: Please follow-up with your primary care physician tomorrow. If you have any worsening or new symptoms, please return to the emergency room or call 911 Prescriptions: New omeprazole 20 mg capsule,delayed release(DR/EC) 20 mg PO DAILY Qty: 10 RF: 0 No Action albuterol sulfate [Ventolin HFA] 90 mcg/actuation HFA aerosol inhaler 1 puff PO Q6H PRN (Reason: shortness of breath or wheezing) Qty: 18 RF: 3 pantoprazole 40 mg tablet,delayed release (DR/EC) 40 mg PO DAILY 90 Days Qty: 90 RF: 1 hydroxyzine HCl 50 mg tablet 50 mg PO BEDTIME Qty: 90 RF: 1 Spiriva with HandiHaler 18 mcg capsule, w/inhalation device 1 cap inhalation DAILY 30 Days Qty: 30 RF: 3 cyclobenzaprine 5 mg tablet 5 mg PO TID PRN (Reason: muscle spasm) 30 Days Qty: 90 RF: 1 cholecalciferol (vitamin D3) 50 mcg (2,000 unit) capsule 50 mcg PO DAILY 90 Days Qty: 90 RF: 3 ibuprofen 600 mg tablet 600 mg PO Q8H PRN (Reason: pain) 30 Days Qty: 90 RF: 1 lorazepam 1 mg tablet 1 mg PO BID PRN (Reason: anxiety) 28 Days Qty: 56 RF: 0 silver sulfadiazine [Silvadene] 1 % cream 1 appl topical DAILY 30 Days Qty: 85 RF: 0 oxycodone 5 mg tablet 5 mg PO .1-2 times daily PRN (Reason: pain) 10 Days Qty: 20 RF: 0 simvastatin 40 mg tablet 40 mg PO BEDTIME 90 Days Qty: 90 RF: 1 fluticasone propionate 50 mcg/actuation spray,suspension 1 spray intranasal DAILY RF: 0 dicyclomine 10 mg capsule 10 mg PO QID 30 Days Qty: 120 RF: 3 aspirin [Ecotrin Low Strength] 81 mg tablet,delayed release (DR/EC) 81 mg PO DAILY Qty: 30 RF: 5 escitalopram oxalate 20 mg tablet 20 mg PO DAILY RF: 0 lisinopril 5 mg tablet 5 mg PO DAILY Qty: 30 RF: 5
[2020-10-15 04:30] LABS: Basophils Absolute Auto 0.1 X10*3/uL (0.0-0.2); Eosinophils Absolute Auto 0.2 X10*3/uL (0.0-0.4); Eosinophils Percent Auto 3.6 % (0-4); Hemoglobin 14.9 g/dl (12.0-16.0); Imm Gran Abs Auto 0.02 X10*3/uL (0.00-0.03); Imm Gran Pct Auto 0.3 % (0.0-0.4); Lymphocytes Absolute Auto 2.2 X10*3/uL (1.2-4.9); Lymphocytes Percent Auto 37.2 % (20-40); MANUAL DIFF FLAG NO; Mean Corpuscular HGB Conc 34.7 g/dl (31.0-35.0); Mean Corpuscular Hemoglobin 30.4 pg (27.0-33.0); Mean Corpuscular Volume 87.8 fL (80-98); Mean Platelet Volume 8.6 fL (9.4-12.3); Monocytes Absolute Auto 0.7 X10*3/uL (0.1-1.2); Monocytes Percent Auto 12.7 % (2-11); Neutrophils Absolute Auto 2.6 X10*3/uL (2.0-8.3); Neutrophils Percent Auto 45.2 % (45-73); Platelet Count 195 X10*3/uL (160-400); Red Cell Distribution Width 13.2 % (11.0-16.0); White Blood Count 5.8 X10*3/uL (4.8-10.8)
[2020-10-15] MEDS: 0.9 % Sodium Chloride 1,000 ML 999 ML IVCONT (04:50)
[2020-10-15] MEDS: ondansetron HCL 4 MG/2 ML VIAL IVPUSH (04:50)
[2020-10-15 04:53] LABS: Ethanol < 10 mg/dL
[2020-10-15 04:54] LABS: Alanine Aminotransferase 6 U/L (0-31); Albumin Level 4.3 g/dL (3.5-5.0); Alkaline Phosphatase 51 U/L (39-117); Anion Gap 16 (12-20); Aspartate Amino Transferase 17 U/L (5-31); Bilirubin Direct 0.2 mg/dL (0.0-0.5); Bilirubin Total 0.7 mg/dL (0.0-1.0); Blood Urea Nitrogen 9 mg/dL (9-16); Calcium 9.2 mg/dL (8.4-10.2); Carbon Dioxide 23 mmol/L (22-29); Chloride 105 mmol/L (96-108); Creatinine Clr Calc Pharmacy 59.8; Estimated Glomerular Filt Rate > 60; Glucose Random 111 mg/dL (60-115); Lipase 15 U/L (8-78); Potassium 3.5 mmol/L (3.3-5.1); Sodium 140 mmol/L (135-145); Total Protein 7.1 g/dL (6.5-8.0)
[2020-10-15 04:58] LABS: B Type Natriuretic Peptide 56 pg/mL (<100)
[2020-10-15] MEDS: Lidocaine HCl Viscous 2 % 15 ML SOLUTION MUCOUS MEM (05:12)
[2020-10-15] MEDS: Magnesium Hydrox/Alum Hydrox 30 ML ORAL.SUSP PO (05:12)
--- NOTE | 2020-10-15 06:29 | PC.NURSE ---
PT INITIALLY VOMITING SMALL AMOUNTS OF YELLOW BILE. NAUSEA, VOMITING AND DISCOMFORT NOW GONE, FOLLOWING IV AND P.O MEDICATIONS.
[2020-10-15 06:30] VITALS: BP 154/82; PULSE 80; RESP 16; O2SAT 95
--- NOTE | 2020-10-15 06:52 | PC.NURSE ---
MD JACKSON AT BEDSIDE, PT FEELS LIKE SHE NEEDS TO STAY IN THE HOSPITAL BECAUSE HER UPPER ABDOMEN IS NOW GURGLING. PT REPORTS HER PAIN AND NAUSEA IS NOW GONE. PT ENCOURAGED TO FOLLOW UP WITH PCP AND GI DOCTOR.
--- NOTE | 2020-10-15 07:02 | PC.NURSE ---
PT ABLE TO DRINK 8OZ OF ICE WATER, NO VOMITING.
== END 2020-10-15 07:01 | disposition home or self-care (01) ==
PROVIDERS: Emergency Provider Emergency Medicine; PCP Internal Medicine
DX: K29.70 Gastritis, unspecified, without bleeding (principal); R11.2 Nausea with vomiting, unspecified; J44.9 Chronic obstructive pulmonary disease, unspecified; F17.210 Nicotine dependence, cigarettes, uncomplicated; Z71.6 Tobacco abuse counseling; F12.90 Cannabis use, unspecified, uncomplicated; Z79.899 Other long term (current) drug therapy
CPT/HCPCS: 36415; 71045; 80048; 80076; 82077; 83690; 83880; 84484; 85025; 93005; 96365; 96375; 99284; J2405

== ENCOUNTER 2020-10-16 07:53 | Emergency (ER) | payer MEDICARE, MEDICAID, SELFPAY ==
--- NOTE | ~2020-10-16 | CT_ITS ---
EXAMINATION: CT ABDOMEN AND PELVIS WITH CONTRAST CLINICAL INFORMATION: Left lower quadrant pain COMPARISON: CT abdomen and pelvis with contrast 08/24/2020 TECHNIQUE: Multidetector volumetric images were obtained from the superior aspect of the liver through the pubic symphysis following administration 85 mL of Omnipaque 350 intravenous contrast. Sagittal and coronal reformatted images were obtained on the technologist's workstation. Oral contrast: No This CT examination was performed using dose optimization techniques as appropriate, variously including the following: *Automated exposure control *Adjustment of mA and/or kV according to patient size (this includes techniques or standardized protocols for targeted exams where dose is matched to indication/reason for exam; i.e. extremities or head) *Use of iterative reconstruction technique DLP: 342 mGy-cm FINDINGS: LUNG BASES: The visualized lung bases are unremarkable. LIVER, GALLBLADDER, AND BILIARY TREE: The liver is normal in size and smooth in contour. There is mild hepatic steatosis. Small subcapsular cyst again seen anterior left lobe under 1 cm. There is no hepatic parenchymal lesion or intrahepatic ductal dilatation. The gallbladder shows no dilatation or wall thickening or calculus. There may be a tiny polyp proximal dependent region under 4 mm. No pericholecystic inflammatory changes. Common duct is unremarkable. PANCREAS: Unremarkable. SPLEEN: Unremarkable. ADRENAL GLANDS: Unremarkable. KIDNEYS AND URETERS: The kidneys are normal in size and smooth in contour and enhance symmetrically. Again, there is incidental subcentimeter cyst left lower pole and right upper pole. No additional imaging follow-up required. There is no hydronephrosis or hydroureter, calculi, or perinephric stranding. BLADDER: Unremarkable. GASTROINTESTINAL TRACT: No bowel obstruction or focal inflammatory changes in the bowel mesentery. Normal appendix. Suture line again suggested distal sigmoid. No ascites or fluid collection. ABDOMINAL WALL: No significant hernia is appreciated. LYMPH NODES: No lymphadenopathy. VASCULAR: Congenital circumaortic left renal vein. Atherosclerotic calcifications aorta. PELVIC VISCERA: Unremarkable. OSSEOUS STRUCTURES: Old compression fracture L5 similar to prior study. No paraspinal soft tissue swelling. No acute bony abnormality. CT/CT abdomen pelvis w con IMPRESSION: 1. No inflammatory changes in bowel or mesentery. 2. No hydronephrosis, calculi, or perinephric stranding. 3. Compression fracture L5 stable from prior exam 08/24/2020.
[2020-10-16 08:28] VITALS: BP 137/91; PULSE 76; RESP 18; TEMP 36.1; O2SAT 98; BMI 21.2
--- NOTE | 2020-10-16 08:28 | ED.NAVMDI ---
HPI - Nausea/Vomiting/Diarrhea General Chief complaint: Nausea/Vomiting/Diarrhea Stated complaint: vomiting Time Seen by Provider: 10/16/20 08:25 Source: patient Limitations: no limitations History of Present Illness HPI Narrative: 60-year-old female very poor historian history of anxiety, HTN, COPD, depression, endocarditis, gastritis, GERD, IV drug abuse, vitamin D deficiency. This is her 3rd visit this week she initially presented after injecting cocaine having chest pain and had epigastric pain yesterday she had labs done was sent home on omeprazole the patient is already on pantoprazole. 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 Patient denies there is present into a bag she states she has associated diarrhea with vomiting. Patient has had this problem for several months she states she has not smoked marijuana for 3 days. Three days she states she has been having this recurrent vomiting though she did not complain of that the previous 2 visits. MD elicited complaint: nausea, vomiting and diarrhea Description of vomiting: other (yellow and salty) Description of diarrhea: watery and loose Associated nausea: Yes Associated abdominal pain: Yes Location of pain: LLQ Pain consistency: constant Severity: mild Quality: cramping Exacerbating factors: eating Relieving factors: none Related Data Home Medications Medication Instructions Recorded Confirmed escitalopram oxalate 20 mg tablet 20 mg PO DAILY tab 09/26/20 10/12/20 fluticasone propionate 50 1 spray INTRANASAL DAILY 10/12/20 10/12/20 mcg/actuation nasal spray,suspension Previous Rx's Medication Instructions Recorded albuterol sulfate 90 mcg/actuation 1 puff PO Q6H PRN #18 g 02/23/20 aerosol inhaler pantoprazole 40 mg tablet,delayed 40 mg PO DAILY 90 Days #90 tab 05/29/20 release hydroxyzine HCl 50 mg tablet 50 mg PO BEDTIME #90 tab 06/06/20 tiotropium bromide 18 mcg capsule 1 cap INHALATION DAILY 30 Days #30 06/07/20 with inhalation device inh simvastatin 40 mg tablet 40 mg PO BEDTIME 90 Days #90 tab 07/16/20 dicyclomine 10 mg capsule 10 mg PO QID 30 Days #120 cap 08/16/20 cyclobenzaprine 5 mg tablet 5 mg PO TID PRN 30 Days #90 tab 08/19/20 aspirin 81 mg tablet,delayed 81 mg PO DAILY #30 tab 08/30/20 release cholecalciferol (vitamin D3) 50 50 mcg PO DAILY 90 Days #90 cap 08/30/20 mcg (2,000 unit) capsule ibuprofen 600 mg tablet 600 mg PO Q8H PRN 30 Days #90 tab 09/11/20 lorazepam 1 mg tablet 1 mg PO BID PRN 28 Days #56 tab 09/20/20 lisinopril 5 mg tablet 5 mg PO DAILY #30 tab 09/26/20 silver sulfadiazine 1 % topical 1 appl TOPICAL DAILY 30 Days #85 g 10/05/20 cream oxycodone 5 mg tablet 5 mg PO .1-2 times daily PRN 10 10/10/20 Days #20 tab omeprazole 20 mg PO DAILY #10 cap 10/15/20 ondansetron HCl [Zofran] 4 mg PO Q8H PRN #10 tab 10/16/20 Allergies Allergy/AdvReac Type Severity Reaction Status Date / Time No Known Allergies Allergy Unknown unknown Verified 10/12/20 16:28 [NO KNOWN ALLERGIES] Review of Systems Review of Systems: Review of systems: General: Patient denies any fever chills recent illness or falls Musculoskeletal: Denies back pain or body aches or other injuries HEENT: denies headache, runny nose, ear pain Respiratory: denies shortness of breath, cough Cardiovascular: no chest pain or palpitations : denies dysuria, frequency Abdomen: Diarrhea nausea vomiting mild abdominal pain Extremities: no swelling, no pain Skin: no diaphoresis Yes all other systems are reviewed and are negative Gastrointestinal: Gastrointestinal: Reports nausea PMFSH Past Medical History Attestation statement: The following information was validated with the patient. Medical History Allergic rhinitis Anxiety Benign essential hypertension Cervical spondylosis COPD (chronic obstructive pulmonary disease) Depression 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 Gastritis GERD (gastroesophageal reflux disease) IV drug user Mitral regurgitation Mitral valve prolapse Paresthesia of left leg Pure hypercholesterolemia Rectal prolapse Smoker Vitamin D deficiency Surgical History History of hysterectomy History of rectal surgery Family History Family History Father Internal bleeding Mother Medical history unknown Social History Social History Alcohol intake: former Patient Tobacco Use Status: Current everyday Tobacco user Cigarettes Per Day: 12 Substance Use Type: Marijuana Advance Directives: Yes Advance Directives Information Provided: No Advance Directives on File: No Patient : No Sexual orientation: Straight/Heterosexual Gender identity: female Physical Exam Vital Signs: Vital Signs: Last Vital Signs Temp 97 F 10/16/20 08:28 Pulse 76 10/16/20 08:28 Resp 18 10/16/20 08:28 BP 137/91 H 10/16/20 08:28 Pulse Ox 98 10/16/20 08:28 Body Mass Index 21.2 General: Well-appearing well-nourished in no signs of distress HEENT: Normocephalic atraumatic Neck: No signs of JVD, no masses no tenderness or lymphadenopathy Cardiovascular: Regular rate and rhythm Respiratory: Clear to auscultation bilaterally Abdomen: Soft mildly tender to left lower quadrant no masses patient is currently in hallway so rectal exam is deferred Extremities: Normal pedal pulses no signs of edema Skin: Dry warm no rashes Back: No tenderness full ROM Course Course Course Narrative: Patient had significant relief with zofran pepcid and fluids. labs are all unremarkable. [address] Scan ReportSigned Patient: Sarah Medina AMR#: [id number]: [id number]:[id number]/Sex: 60 / FADM Date: 10/16/20Loc: Sam Dr: Ordering Physician: Ludwig Goodrich DO Date of Service: 10/16/20 Procedure(s): CT abdomen pelvis w con Accession Number(s): [id number] cc: Ludwig Goodrich DO~ EXAMINATION: CT ABDOMEN AND PELVIS WITH CONTRAST CLINICAL INFORMATION: Left lower quadrant pain COMPARISON: CT abdomen and pelvis with contrast 08/24/2020 TECHNIQUE: Multidetector volumetric images were obtained from the superior aspect of the liver through the pubic symphysis following administration 85 mL of Omnipaque 350 intravenous contrast. Sagittal and coronal reformatted images were obtained on the technologist's workstation. Oral contrast: No This CT examination was performed using dose optimization techniques as appropriate, variously including the following: *Automated exposure control *Adjustment of mA and/or kV according to patient size (this includes techniques or standardized protocols for targeted exams where dose is matched to indication/reason for exam; i.e. extremities or head) *Use of iterative reconstruction technique DLP: 342 mGy-cm FINDINGS: LUNG BASES: The visualized lung bases are unremarkable. LIVER, GALLBLADDER, AND BILIARY TREE: The liver is normal in size and smooth in contour. There is mild hepatic steatosis. Small subcapsular cyst again seen anterior left lobe under 1 cm. There is no hepatic parenchymal lesion or intrahepatic ductal dilatation. The gallbladder shows no dilatation or wall thickening or calculus. There may be a tiny polyp proximal dependent region under 4 mm. No pericholecystic inflammatory changes. Common duct is unremarkable. PANCREAS: Unremarkable. SPLEEN: Unremarkable. ADRENAL GLANDS: Unremarkable. KIDNEYS AND URETERS: The kidneys are normal in size and smooth in contour and enhance symmetrically. Again, there is incidental subcentimeter cyst left lower pole and right upper pole. No additional imaging follow-up required. There is no hydronephrosis or hydroureter, calculi, or perinephric stranding. BLADDER: Unremarkable. GASTROINTESTINAL TRACT: No bowel obstruction or focal inflammatory changes in the bowel mesentery. Normal appendix. Suture line again suggested distal sigmoid. No ascites or fluid collection. ABDOMINAL WALL: No significant hernia is appreciated. LYMPH NODES: No lymphadenopathy. VASCULAR: Congenital circumaortic left renal vein. Atherosclerotic calcifications aorta. PELVIC VISCERA: Unremarkable. OSSEOUS STRUCTURES: Old compression fracture L5 similar to prior study. No paraspinal soft tissue swelling. No acute bony abnormality. CT/CT abdomen pelvis w con IMPRESSION: 1. No inflammatory changes in bowel or mesentery. 2. No hydronephrosis, calculi, or perinephric stranding. 3. Compression fracture L5 stable from prior exam 08/24/2020. Dictated By:JAMSHID CABALLERO MDSigned By:<Electronically signed by JAMSHID CABALLERO MD in OV>10/16/20 1156 DD/ 0941TD/TT: Gauge Maker: LYONS CT is negative I explained the results to the patient I will send home. MDM - Nausea/Vomiting/Diarrhea MDM Narrative Medical decision making narrative: Patient with abdominal pain which is recurrent patient did not have CT scan yesterday on the patient for CT will check labs including CBC BMP LFTs and lipase I will give the patient fluids Zofran and Pepcid. Lab Data Result diagrams: 10/16/20 09:47 10/16/20 09:47 Labs: Lab Results 10/16/20 10/16/20 10/16/20 Range/Units 09:47 09:47 09:47 WBC 5.7 (4.8-10.8) X10*3/uL RBC 4.27 (4.20-5.50) X10*6/uL Hgb 12.9 (12.0-16.0) g/dl Hct 38.2 (37-47) % MCV 89.5 (80-98) fL MCH 30.2 (27.0-33.0) pg MCHC 33.8 (31.0-35.0) g/dl RDW 13.1 (11.0-16.0) % Plt Count 164 (160-400) X10*3/uL MPV 8.8 L (9.4-12.3) fL Immature Gran % (Auto) 0.4 (0.0-0.4) % Neut % (Auto) 70.1 (45-73) % Lymph % (Auto) 18.7 L (20-40) % [place] % (Auto) 8.5 (2-11) % Eos % (Auto) 1.6 (0-4) % Baso % (Auto) 0.7 (0-2) % Lymph # (Auto) 1.1 L (1.2-4.9) X10*3/uL [place] # (Auto) 0.5 (0.1-1.2) X10*3/uL Eos # (Auto) 0.1 (0.0-0.4) X10*3/uL Baso # (Auto) 0.0 (0.0-0.2) X10*3/uL Abs Immat Gran (auto) 0.02 (0.00-0.03) X10*3/uL Absolute Neuts (auto) 4.0 (2.0-8.3) X10*3/uL Absolute Nucleated RBC 0.000 (0.0-0.012) X10*3/uL Nucleated RBC % (auto) 0.0 (0.0-0.2) /100WBC Sodium 144 (135-145) mmol/L Potassium 3.7 (3.3-5.1) mmol/L Chloride 110 H (96-108) mmol/L Carbon Dioxide 22 (22-29) mmol/L Anion Gap 16 (12-20) BUN 11 (9-16) mg/dL Creatinine 0.67 (0.5-1.4) mg/dL Estim Creat Clear Calc 69.7 Estimated GFR > 60 Random Glucose 82 (60-115) mg/dL Calcium 8.4 D (8.4-10.2) mg/dL Total Bilirubin 0.5 (0.0-1.0) mg/dL Direct Bilirubin 0.2 (0.0-0.5) mg/dL AST 16 (5-31) U/L ALT 9 (0-31) U/L Alkaline Phosphatase 47 (39-117) U/L Total Protein 6.5 (6.5-8.0) g/dL Albumin 4.0 (3.5-5.0) g/dL Lipase 13 (8-78) U/L Urine Color Urine Appearance Urine pH (5.0-8.0) Ur Specific [place] (1.005-1.025) Urine Protein (NEG-TRACE) MG/DL Urine Glucose (UA) (NEG) MG/DL Urine Ketones (NEG) MG/DL Urine Blood (NEG) Urine Nitrite (NEG) Ur Leukocyte Esterase (NEG) Urine RBC (0) /HPF Urine WBC (0-4) /HPF Ur Squamous Epith Cells /LPF Urine Bacteria /LPF 10/16/20 Range/Units 11:23 WBC (4.8-10.8) X10*3/uL RBC (4.20-5.50) X10*6/uL Hgb (12.0-16.0) g/dl Hct (37-47) % MCV (80-98) fL MCH (27.0-33.0) pg MCHC (31.0-35.0) g/dl RDW (11.0-16.0) % Plt Count (160-400) X10*3/uL MPV (9.4-12.3) fL Immature Gran % (Auto) (0.0-0.4) % Neut % (Auto) (45-73) % Lymph % (Auto) (20-40) % [place] % (Auto) (2-11) % Eos % (Auto) (0-4) % Baso % (Auto) (0-2) % Lymph # (Auto) (1.2-4.9) X10*3/uL [place] # (Auto) (0.1-1.2) X10*3/uL Eos # (Auto) (0.0-0.4) X10*3/uL Baso # (Auto) (0.0-0.2) X10*3/uL Abs Immat Gran (auto) (0.00-0.03) X10*3/uL Absolute Neuts (auto) (2.0-8.3) X10*3/uL Absolute Nucleated RBC (0.0-0.012) X10*3/uL Nucleated RBC % (auto) (0.0-0.2) /100WBC Sodium (135-145) mmol/L Potassium (3.3-5.1) mmol/L Chloride (96-108) mmol/L Carbon Dioxide (22-29) mmol/L Anion Gap (12-20) BUN (9-16) mg/dL Creatinine (0.5-1.4) mg/dL Estim Creat Clear Calc Estimated GFR Random Glucose (60-115) mg/dL Calcium (8.4-10.2) mg/dL Total Bilirubin (0.0-1.0) mg/dL Direct Bilirubin (0.0-0.5) mg/dL AST (5-31) U/L ALT (0-31) U/L Alkaline Phosphatase (39-117) U/L Total Protein (6.5-8.0) g/dL Albumin (3.5-5.0) g/dL Lipase (8-78) U/L Urine Color YELLOW Urine Appearance CLEAR Urine pH 6.0 (5.0-8.0) Ur Specific [place] 1.015 (1.005-1.025) Urine Protein NEG (NEG-TRACE) MG/DL Urine Glucose (UA) NEG (NEG) MG/DL Urine Ketones >=80 (NEG) MG/DL Urine Blood 2+ H (NEG) Urine Nitrite NEG (NEG) Ur Leukocyte Esterase NEG (NEG) Urine RBC 1-4 (0) /HPF Urine WBC 0-2 (0-4) /HPF Ur Squamous Epith Cells 1+ /LPF Urine Bacteria NONE /LPF Discharge Plan Discharge Clinical Impression: Anxiety, Gastritis, Vomiting, Dehydration Patient Disposition: Home, Self-Care Instructions: Dehydration (ED), Acute Nausea and Vomiting (ED) Additional Instructions: Please call to follow up. I will send you home with a script for zofran. If you have any other concerns please return to the ED. Prescriptions: New ondansetron HCl [Zofran] 4 mg tablet 4 mg PO Q8H PRN (Reason: nausea and vomiting) Qty: 10 RF: 0 No Action albuterol sulfate [Ventolin HFA] 90 mcg/actuation HFA aerosol inhaler 1 puff PO Q6H PRN (Reason: shortness of breath or wheezing) Qty: 18 RF: 3 pantoprazole 40 mg tablet,delayed release (DR/EC) 40 mg PO DAILY 90 Days Qty: 90 RF: 1 hydroxyzine HCl 50 mg tablet 50 mg PO BEDTIME Qty: 90 RF: 1 Spiriva with HandiHaler 18 mcg capsule, w/inhalation device 1 cap inhalation DAILY 30 Days Qty: 30 RF: 3 cyclobenzaprine 5 mg tablet 5 mg PO TID PRN (Reason: muscle spasm) 30 Days Qty: 90 RF: 1 cholecalciferol (vitamin D3) 50 mcg (2,000 unit) capsule 50 mcg PO DAILY 90 Days Qty: 90 RF: 3 ibuprofen 600 mg tablet 600 mg PO Q8H PRN (Reason: pain) 30 Days Qty: 90 RF: 1 lorazepam 1 mg tablet 1 mg PO BID PRN (Reason: anxiety) 28 Days Qty: 56 RF: 0 silver sulfadiazine [Silvadene] 1 % cream 1 appl topical DAILY 30 Days Qty: 85 RF: 0 oxycodone 5 mg tablet 5 mg PO .1-2 times daily PRN (Reason: pain) 10 Days Qty: 20 RF: 0 omeprazole 20 mg capsule,delayed release(DR/EC) 20 mg PO DAILY Qty: 10 RF: 0 simvastatin 40 mg tablet 40 mg PO BEDTIME 90 Days Qty: 90 RF: 1 fluticasone propionate 50 mcg/actuation spray,suspension 1 spray intranasal DAILY RF: 0 dicyclomine 10 mg capsule 10 mg PO QID 30 Days Qty: 120 RF: 3 aspirin [Ecotrin Low Strength] 81 mg tablet,delayed release (DR/EC) 81 mg PO DAILY Qty: 30 RF: 5 escitalopram oxalate 20 mg tablet 20 mg PO DAILY RF: 0 lisinopril 5 mg tablet 5 mg PO DAILY Qty: 30 RF: 5
[2020-10-16] MEDS: 0.9 % Sodium Chloride 500 ML 999 ML IV (08:55)
[2020-10-16] MEDS: ondansetron HCL 4 MG/2 ML VIAL IVPUSH (08:55)
[2020-10-16] MEDS: Famotidine/PF 20 MG/2 ML VIAL IVPUSH (08:56)
[2020-10-16 09:53] LABS: MANUAL DIFF FLAG NO
[2020-10-16 09:56] LABS: Basophils Percent Auto 0.7 % (0-2); Eosinophils Absolute Auto 0.1 X10*3/uL (0.0-0.4); Eosinophils Percent Auto 1.6 % (0-4); Hematocrit 38.2 % (37-47); Hemoglobin 12.9 g/dl (12.0-16.0); Imm Gran Abs Auto 0.02 X10*3/uL (0.00-0.03); Imm Gran Pct Auto 0.4 % (0.0-0.4); Lymphocytes Absolute Auto 1.1 X10*3/uL (1.2-4.9); Lymphocytes Percent Auto 18.7 % (20-40); Mean Corpuscular HGB Conc 33.8 g/dl (31.0-35.0); Mean Corpuscular Hemoglobin 30.2 pg (27.0-33.0); Mean Corpuscular Volume 89.5 fL (80-98); Mean Platelet Volume 8.8 fL (9.4-12.3); Monocytes Absolute Auto 0.5 X10*3/uL (0.1-1.2); Monocytes Percent Auto 8.5 % (2-11); Neutrophils Percent Auto 70.1 % (45-73); Platelet Count 164 X10*3/uL (160-400); Red Blood Count 4.27 X10*6/uL (4.20-5.50); Red Cell Distribution Width 13.1 % (11.0-16.0); White Blood Count 5.7 X10*3/uL (4.8-10.8)
[2020-10-16 10:26] LABS: Alanine Aminotransferase 9 U/L (0-31); Alkaline Phosphatase 47 U/L (39-117); Anion Gap 16 (12-20); Aspartate Amino Transferase 16 U/L (5-31); Bilirubin Direct 0.2 mg/dL (0.0-0.5); Bilirubin Total 0.5 mg/dL (0.0-1.0); Blood Urea Nitrogen 11 mg/dL (9-16); Calcium 8.4 mg/dL (8.4-10.2); Carbon Dioxide 22 mmol/L (22-29); Chloride 110 mmol/L (96-108); Creatinine Clr Calc Pharmacy 69.7; Estimated Glomerular Filt Rate > 60; Glucose Random 82 mg/dL (60-115); Lipase 13 U/L (8-78); Potassium 3.7 mmol/L (3.3-5.1); Sodium 144 mmol/L (135-145); Total Protein 6.5 g/dL (6.5-8.0)
--- NOTE | 2020-10-16 10:47 | PC.NURSE ---
nad. no nausea, no vomitting, ns infusing
[2020-10-16] MEDS: iohexoL 350 MG/ML 100 ML INFUS..BTL IV (11:15)
[2020-10-16 11:30] LABS: Glucose Urine UA NEG (NEG); Leukocyte Esterase Urine NEG (NEG); Nitrite Urine NEG (NEG); Specific Gravity - Urine 1.015 (1.005-1.025); Urine Blood 2+ (NEG); Urine Ketones >=80 MG/DL (NEG); Urine Protein NEG (NEG-TRACE)
[2020-10-16 11:33] LABS: Appearance Urine CLEAR; Color Urine YELLOW
[2020-10-16 11:39] LABS: Squamous Epithelial Cell Urine 1+ /LPF; WBC Urine 0-2 /HPF (0-4)
[2020-10-16 12:21] VITALS: BP 184/84; PULSE 88; RESP 18; O2SAT 98
[2020-10-16] MEDS: Acetaminophen 325 MG TABLET 650 MG PO (12:29)
[2020-10-16] MEDS: Magnesium Hydrox/Alum Hydrox 30 ML ORAL.SUSP PO (12:29)
== END 2020-10-16 13:02 | disposition home or self-care (01) ==
PROVIDERS: Emergency Provider Student in an Organized Health Care Education/Training Program; PCP Internal Medicine
DX: F41.9 Anxiety disorder, unspecified (principal); K29.70 Gastritis, unspecified, without bleeding; E86.0 Dehydration; R11.2 Nausea with vomiting, unspecified; I10 Essential (primary) hypertension; J44.9 Chronic obstructive pulmonary disease, unspecified; F19.10 Other psychoactive substance abuse, uncomplicated; F14.10 Cocaine abuse, uncomplicated; F17.210 Nicotine dependence, cigarettes, uncomplicated; F12.90 Cannabis use, unspecified, uncomplicated
CPT/HCPCS: 36415; 74177; 80048; 80076; 81001; 83690; 85025; 96361; 96374; 96375; 99284; J2405; Q9967

== ENCOUNTER → 2020-10-18 10:24 | Outpatient (BNVA) | payer MEDICARE, MEDICAID, SELFPAY | PROVIDERS: PCP Internal Medicine; Visit Provider Nurse Practitioner | DX: R10.84 Generalized abdominal pain (principal); K21.9 Gastro-esophageal reflux disease without esophagitis; K29.50 Unspecified chronic gastritis without bleeding; R11.2 Nausea with vomiting, unspecified; F19.90 Other psychoactive substance use, unspecified, uncomplicated; F14.10 Cocaine abuse, uncomplicated | CPT/HCPCS: 99212 ==

== ENCOUNTER → 2020-10-25 12:38 | Outpatient (BNVA) | payer MEDICARE, MEDICAID, SELFPAY | PROVIDERS: PCP Internal Medicine; Referring Provider Internal Medicine; Visit Provider Nurse Practitioner Family | DX: I35.1 Nonrheumatic aortic (valve) insufficiency (principal); I35.0 Nonrheumatic aortic (valve) stenosis; F17.200 Nicotine dependence, unspecified, uncomplicated; Z79.899 Other long term (current) drug therapy; Z71.6 Tobacco abuse counseling | CPT/HCPCS: 99212 ==

== ENCOUNTER → 2020-10-29 07:49 | Outpatient (REF) | payer MEDICARE, MEDICAID, SELFPAY ==
--- NOTE | ~2020-10-29 | NM_ITS ---
EXAMINATION: RI RADIONUCLIDE SOLID FOOD GASTRIC EMPTYING 4-HOUR STUDY CLINICAL INFORMATION: Vomiting, early satiety, GERD, gastritis, nausea x2 months. COMPARISON: None TECHNIQUE: A standard meal consisting of 4 oz of Egg Beaters brand tagged with 0.973 microcuries Tc-99m Sulfur Colloid, 8 oz water and 2 slices of toast with jelly was administered orally to the patient. Images were obtained using a dual head gamma camera in the anterior and posterior projections over of the stomach immediately post ingestion and at hourly intervals up to 4 hours post ingestion. The anterior and posterior counts at each time interval were averaged using the geometric mean and expressed as percentage of the immediate post ingestion counts. FINDINGS: There is good visualization of activity in the stomach immediately post ingestion. As the study progresses, there is good clearance of activity from the stomach and visualization of progressively increasing small bowel activity. By the end of the study, there is almost no retention noted in the stomach. Retention in the stomach at each time interval was: 1 hour 90% (normal 37%-90%) 2 hours 81% (normal 30%-60%) 3 hours 31% 4 hours 13% (normal 0%-10%) RI/RI gastric emptying study IMPRESSION: Abnormal gastric emptying with 13% retention of food by 4 hours.
== END ==
LOC: HO.NUCMED 07:49
PROVIDERS: Visit Provider Nurse Practitioner
DX: R11.10 Vomiting, unspecified (principal); R68.81 Early satiety
CPT/HCPCS: 78264; A9541

== ENCOUNTER → 2020-11-26 14:59 | Outpatient (BNVA) | payer MEDICARE, MEDICAID, SELFPAY | PROVIDERS: PCP Internal Medicine; Referring Provider Internal Medicine; Visit Provider Nurse Practitioner | DX: K31.84 Gastroparesis (principal); R10.84 Generalized abdominal pain; R11.2 Nausea with vomiting, unspecified; K58.0 Irritable bowel syndrome with diarrhea; K21.9 Gastro-esophageal reflux disease without esophagitis; Z79.899 Other long term (current) drug therapy | CPT/HCPCS: 99212 ==

== ENCOUNTER 2020-12-08 07:25 | Emergency (ER) | payer MEDICARE, MEDICAID, SELFPAY ==
--- NOTE | ~2020-12-08 | US_ITS ---
EXAMINATION: US ABDOMEN LIMITED CLINICAL INFORMATION: Right upper quadrant pain. COMPARISON: Previous CT of the abdomen and pelvis October 2020 TECHNIQUE: Real-time imaging of the right upper quadrant abdominal viscera. FINDINGS: PANCREAS: Normal. LIVER: Normal. The liver is normal in size. The liver contour is normal. Parenchymal echogenicity is normal. No focal hepatic lesion. There is no intrahepatic biliary duct dilatation seen. GALLBLADDER: The gallbladder is normal in size. There is a 4 mm echogenic lesion adjacent to the gallbladder wall that does not move or shadow probably representing a small polyp. No definite gallstones are seen. The gallbladder wall is otherwise normal. There is no pericholecystic fluid. COMMON BILE DUCT: Normal in caliber measuring 0.4 cm in diameter. RIGHT KIDNEY: Right kidney is small.. No hydronephrosis. No renal calculi or focal parenchymal lesions. The kidney measures 7.2 cm in maximum dimension. FREE FLUID: None. US/US abdomen limited IMPRESSION: Probable small gallbladder wall polyp. No gallstones seen.
[2020-12-08 07:37] VITALS: BP 175/78; PULSE 89; RESP 18; TEMP 36.8; O2SAT 98; BMI 22.3
--- NOTE | 2020-12-08 07:57 | ECG_ITS ---
Test Reason : EPIGASTRIC PAIN Blood Pressure : / mmHG Vent. Rate : 067 BPM Atrial Rate : 067 BPM P-R Int : 196 ms QRS Dur : 098 ms QT Int : 434 ms P-R-T Axes : 076 -39 078 degrees QTc Int : 458 ms Normal sinus rhythm Left axis deviation Abnormal ECG When compared with ECG of 15-OCT-2020 04:51, Premature ventricular complexes are no longer Present Referred By: Adele Randhawa Electronically Signed By:URIEL JONES
[2020-12-08 08:21] LABS: MANUAL DIFF FLAG NO
[2020-12-08] MEDS: ondansetron HCL 4 MG/2 ML VIAL IVPUSH (08:23)
[2020-12-08 08:24] LABS: Basophils Absolute Auto 0.1 X10*3/uL (0.0-0.2); Basophils Percent Auto 0.9 % (0-2); Eosinophils Absolute Auto 0.2 X10*3/uL (0.0-0.4); Eosinophils Percent Auto 3.7 % (0-4); Hematocrit 39.5 % (37-47); Hemoglobin 13.3 g/dl (12.0-16.0); Imm Gran Abs Auto 0.02 X10*3/uL (0.00-0.03); Imm Gran Pct Auto 0.4 % (0.0-0.4); Lymphocytes Absolute Auto 1.4 X10*3/uL (1.2-4.9); Lymphocytes Percent Auto 24.9 % (20-40); Mean Corpuscular HGB Conc 33.7 g/dl (31.0-35.0); Mean Corpuscular Hemoglobin 29.6 pg (27.0-33.0); Mean Corpuscular Volume 87.8 fL (80-98); Mean Platelet Volume 8.7 fL (9.4-12.3); Monocytes Absolute Auto 0.5 X10*3/uL (0.1-1.2); Monocytes Percent Auto 8.7 % (2-11); Neutrophils Absolute Auto 3.5 X10*3/uL (2.0-8.3); Neutrophils Percent Auto 61.4 % (45-73); Platelet Count 195 X10*3/uL (160-400); Red Cell Distribution Width 13.2 % (11.0-16.0); White Blood Count 5.7 X10*3/uL (4.8-10.8)
--- NOTE | 2020-12-08 08:35 | ED_ITS ---
HPI - Nausea/Vomiting/Diarrhea General Chief complaint: Nausea/Vomiting/Diarrhea Stated complaint: VOMITNG Time Seen by Provider: 12/08/20 07:56 Source: patient Mode of arrival: ambulatory History of Present Illness HPI Narrative: 60-year-old female with a past medical history of COPD, anxiety, depression, endocarditis, gastritis, GERD, IVDA, hyperlipidemia, vitamin-D deficiency disorder, presenting to the ED complaining of acute on chronic upper abdominal pain, nausea, vomiting, and increased burping. Admits recently saw GI had gastric emptying study that was abnormal. Denies fever, chills, diarrhea/constipation, dysuria/hematuria MD elicited complaint: nausea, vomiting and abdominal pain Related Data Previous Rx's Medication Instructions Recorded albuterol sulfate 90 mcg/actuation 1 puff PO Q6H PRN #18 g 02/23/20 aerosol inhaler (Ventolin HFA) pantoprazole 40 mg tablet,delayed 40 mg PO DAILY 90 Days #90 tab 05/29/20 release tiotropium bromide 18 mcg capsule 1 cap INHALATION DAILY 30 Days #30 06/07/20 with inhalation device (Spiriva inh with HandiHaler) simvastatin 40 mg tablet 40 mg PO BEDTIME 90 Days #90 tab 07/16/20 aspirin 81 mg tablet,delayed 81 mg PO DAILY #30 tab 08/30/20 release (Ecotrin Low Strength) cholecalciferol (vitamin D3) 50 50 mcg PO DAILY 90 Days #90 cap 08/30/20 mcg (2,000 unit) capsule ibuprofen 600 mg tablet 600 mg PO Q8H PRN 30 Days #90 tab 09/11/20 lisinopril 5 mg tablet 5 mg PO DAILY #30 tab 09/26/20 silver sulfadiazine 1 % topical 1 appl TOPICAL DAILY 30 Days #85 g 10/05/20 cream (Silvadene) sucralfate 1 gram tablet (Carafate) 2 g PO QNOON 30 Days #60 tab 10/18/20 fluticasone propionate 50 1 spray INTRANASAL DAILY #16 ml 11/16/20 mcg/actuation nasal spray,suspension cyclobenzaprine 5 mg tablet 5 mg PO TID PRN 30 Days #90 tab 11/23/20 lorazepam 1 mg tablet 1 mg PO BID PRN 28 Days #56 tab 11/23/20 escitalopram oxalate 20 mg tablet 20 mg PO DAILY 90 Days #90 tab 12/03/20 hydroxyzine HCl 50 mg tablet 50 mg PO BEDTIME #90 tab 12/03/20 metoclopramide HCl 5 mg tablet 5 mg PO .TIDAC 30 Days #90 tab 12/03/20 (Reglan) oxycodone 5 mg tablet 5 mg PO .1-2 times daily PRN 10 12/07/20 Days #20 tab Allergies Allergy/AdvReac Type Severity Reaction Status Date / Time No Known Allergies Allergy Unknown unknown Verified 11/26/20 15:08 [NO KNOWN ALLERGIES] Review of Systems Review of Systems: Constitutional: No Fever, No Chills, No Fatigue, No Malaise ENT/Mouth: No Ear Pain, No Nasal Congestion, No sore throat, No Rhinorrhea Eyes: No Eye Pain Cardiovascular: No Chest Pain, No SOB, No Edema, No Palpitations Respiratory: No Cough, No Dyspnea Gastrointestinal: +Nausea, + Vomiting, No Diarrhea, No Constipation,+Abdominal pain Genitourinary: No Dysuria, No Urinary Frequency, No Hematuria, No Flank Pain Musculoskeletal: No joint pain, No Myalgias, No Joint Swelling Skin: No Skin Lesions, No rash Neuro: No Weakness, No Numbness, No Headache Yes all other systems are reviewed and are negative [facility] Past Medical History Attestation statement: The following information was validated with the patient. Medical History (Updated 12/08/20 @ 11:27 by YEVGENIY Baker) Allergic rhinitis Anxiety Benign essential hypertension Cervical spondylosis COPD (chronic obstructive pulmonary disease) Depression Early satiety 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 Gastritis GERD (gastroesophageal reflux disease) IV drug user Medicare annual wellness visit, initial Mitral regurgitation Mitral valve prolapse Paresthesia of left leg Pure hypercholesterolemia Rectal prolapse Smoker Vitamin D deficiency Surgical History History of hysterectomy History of rectal surgery Family History Family History Father Internal bleeding Mother Medical history unknown Social History Social History Alcohol intake: former Patient Tobacco Use Status: Current everyday Tobacco user Cigarette Packs Per Day: 0.5 Cigarettes Per Day: 10 Years Smoked: 45+ Substance Use Type: Marijuana Advance Directives: No Advance Directives Information Provided: No Patient : No Sexual orientation: Straight/Heterosexual Gender identity: Female Physical Exam Vital Signs: Vital Signs: Last Vital Signs Temp 98.2 F 12/08/20 07:37 Pulse 89 12/08/20 07:37 Resp 18 12/08/20 07:37 BP 175/78 H 12/08/20 07:37 Pulse Ox 98 12/08/20 07:37 Body Mass Index 22.3 Const: General: cooperative and healthy appearing Orientation/consciousness: patient oriented x3 Limitations: no limitations HENMT: Head: Yes normal to inspection Ears: hearing grossly normal bilaterally General nose exam: Normal external nose present Face and sinus: Yes normal facial exam Eyes: General: appearance normal, both eyes and all related structures EOM: EOMs intact bilaterally Neck: Neck: Yes normal visual inspection Resp: Effort & Inspection: normal respiratory effort and no respiratory distress Cardio: Rate: regular rate Heart sounds: S1 normal heart sound present and S2 normal heart sound present GI: Inspection: Yes normal to inspection Palpation (GI): Soft to palpation, Tenderness to palpation present (GI) in the epigastrum and in the RUQ, no guarding and not rigid : General: Yes no CVA tenderness Back/Spine/Pelvis: Back: no CVA tenderness Skin: Rashes: no rashes Wounds: no wounds Neuro: General: patient oriented x3 Gait exam (Neuro): Normal gait present Extrem: General: Yes normal to inspection Course Course Course Narrative: -labs unremarkable US abdomen limited IMPRESSION: Probable small gallbladder wall polyp. No gallstones seen. >> results discussed with patient. Will p.o. challenge and reassess -patient tolerated p.o. crackers in the ED. Discussed results, is to follow up with her GI doctor MDM - Nausea/Vomiting/Diarrhea MDM Narrative Medical decision making narrative: 60-year-old female with a past medical history of COPD, anxiety, depression, endocarditis, gastritis, GERD, IVDA, hyperlipidemia, vitamin-D deficiency disorder, presenting to the ED complaining of acute on chronic upper abdominal pain, nausea, vomiting, and increased burping. On exam VSS, NAD, nontoxic appearing, abdomen soft with epigastric/RUQ TTP, no rebound or guarding, no CAD. Concern for acute on chronic gastric emptying/GERD/gastritis vs cholecystitis/lithiasis. Lower concern for appendicitis/diverticulitis Plan: Labs, UA, abdomen ultrasound, symptomatic treatment, p.o. challenge, reassess Medical Records Attestation: I reviewed the patient's medical records. Lab Data Attestation: I reviewed the patient's lab results. Result diagrams: 12/08/20 08:18 12/08/20 08:37 Labs: Lab Results 12/08/20 12/08/20 12/08/20 Range/Units 08:18 08:18 08:37 WBC 5.7 (4.8-10.8) X10*3/uL RBC 4.50 (4.20-5.50) X10*6/uL Hgb 13.3 (12.0-16.0) g/dl Hct 39.5 (37-47) % MCV 87.8 (80-98) fL MCH 29.6 (27.0-33.0) pg MCHC 33.7 (31.0-35.0) g/dl RDW 13.2 (11.0-16.0) % Plt Count 195 (160-400) X10*3/uL MPV 8.7 L (9.4-12.3) fL Immature Gran % (Auto) 0.4 (0.0-0.4) % Neut % (Auto) 61.4 (45-73) % Lymph % (Auto) 24.9 (20-40) % Sequoyah % (Auto) 8.7 (2-11) % Eos % (Auto) 3.7 (0-4) % Baso % (Auto) 0.9 (0-2) % Lymph # (Auto) 1.4 (1.2-4.9) X10*3/uL Sequoyah # (Auto) 0.5 (0.1-1.2) X10*3/uL Eos # (Auto) 0.2 (0.0-0.4) X10*3/uL Baso # (Auto) 0.1 (0.0-0.2) X10*3/uL Abs Immat Gran (auto) 0.02 (0.00-0.03) X10*3/uL Absolute Neuts (auto) 3.5 (2.0-8.3) X10*3/uL Absolute Nucleated RBC 0.000 (0.0-0.012) X10*3/uL Nucleated RBC % (auto) 0.0 (0.0-0.2) /100WBC PT 11.2 (9.9-13.0) SEC INR 1.0 (0.9-1.1) Sodium 141 (135-145) mmol/L Potassium 3.6 (3.3-5.1) mmol/L Chloride 107 (96-108) mmol/L Carbon Dioxide 28 (22-29) mmol/L Anion Gap 10 L (12-20) BUN 9 (9-16) mg/dL Creatinine 0.65 (0.5-1.4) mg/dL Estim Creat Clear Calc 68.5 Estimated GFR > 60 Random Glucose 111 D (60-115) mg/dL Calcium 8.8 (8.4-10.2) mg/dL Magnesium 2.0 (1.6-2.6) mg/dL Total Bilirubin 0.4 (0.0-1.0) mg/dL AST 12 (5-31) U/L ALT < 6 (0-31) U/L Alkaline Phosphatase 51 (39-117) U/L Total Protein 6.4 L (6.5-8.0) g/dL Albumin 3.9 (3.5-5.0) g/dL Lipase 20 (8-78) U/L Discharge Plan Discharge Clinical Impression: Abdominal pain, Nausea & vomiting Patient Disposition: Home, Self-Care Instructions: Abdominal Pain (ED) Additional Instructions: Your blood work and ultrasound were reassuring. It is important for you to follow-up with your GI doctor See stay hydrated at home Practice a bland diet, avoid sweets, spicy food, caffeine If her symptoms persist or worsen, you are unable to eat or drink, or have fever return to the ED Prescriptions: No Action albuterol sulfate [Ventolin HFA] 90 mcg/actuation HFA aerosol inhaler 1 puff PO Q6H PRN (Reason: shortness of breath or wheezing) Qty: 18 RF: 3 pantoprazole 40 mg tablet,delayed release (DR/EC) 40 mg PO DAILY 90 Days Qty: 90 RF: 1 Spiriva with HandiHaler 18 mcg capsule, w/inhalation device 1 cap inhalation DAILY 30 Days Qty: 30 RF: 3 cholecalciferol (vitamin D3) 50 mcg (2,000 unit) capsule 50 mcg PO DAILY 90 Days Qty: 90 RF: 3 ibuprofen 600 mg tablet 600 mg PO Q8H PRN (Reason: pain) 30 Days Qty: 90 RF: 1 silver sulfadiazine [Silvadene] 1 % cream 1 appl topical DAILY 30 Days Qty: 85 RF: 0 fluticasone propionate 50 mcg/actuation spray,suspension 1 spray intranasal DAILY Qty: 16 RF: 5 lorazepam 1 mg tablet 1 mg PO BID PRN (Reason: anxiety) 28 Days Qty: 56 RF: 0 cyclobenzaprine 5 mg tablet 5 mg PO TID PRN (Reason: muscle spasm) 30 Days Qty: 90 RF: 1 hydroxyzine HCl 50 mg tablet 50 mg PO BEDTIME Qty: 90 RF: 1 escitalopram oxalate 20 mg tablet 20 mg PO DAILY 90 Days Qty: 90 RF: 1 metoclopramide HCl [Reglan] 5 mg tablet 5 mg PO .TIDAC 30 Days Qty: 90 RF: 3 oxycodone 5 mg tablet 5 mg PO .1-2 times daily PRN (Reason: pain) 10 Days Qty: 20 RF: 0 simvastatin 40 mg tablet 40 mg PO BEDTIME 90 Days Qty: 90 RF: 1 sucralfate [Carafate] 1 gram tablet 2 g PO QNOON 30 Days Qty: 60 RF: 6 aspirin [Ecotrin Low Strength] 81 mg tablet,delayed release (DR/EC) 81 mg PO DAILY Qty: 30 RF: 5 lisinopril 5 mg tablet 5 mg PO DAILY Qty: 30 RF: 5 Referrals: Shona Caceres, ANGELA-C [Nurse Practitioner] - 5 days
[2020-12-08 08:40] LABS: Prothrombin Time 11.2 SEC (9.9-13.0)
[2020-12-08] MEDS: 0.9 % Sodium Chloride 1,000 ML 999 ML IVCONT (08:57)
[2020-12-08] MEDS: Magnesium Hydrox/Alum Hydrox 30 ML ORAL.SUSP PO (08:57)
[2020-12-08] MEDS: Famotidine/PF 20 MG/2 ML VIAL IVPUSH (08:57)
[2020-12-08] MEDS: Lidocaine HCl Viscous 2 % 15 ML SOLUTION MUCOUS MEM (08:57)
[2020-12-08 09:34] LABS: Albumin Level 3.9 g/dL (3.5-5.0); Alkaline Phosphatase 51 U/L (39-117); Anion Gap 10 (12-20); Aspartate Amino Transferase 12 U/L (5-31); Bilirubin Total 0.4 mg/dL (0.0-1.0); Blood Urea Nitrogen 9 mg/dL (9-16); Calcium 8.8 mg/dL (8.4-10.2); Carbon Dioxide 28 mmol/L (22-29); Chloride 107 mmol/L (96-108); Creatinine Clr Calc Pharmacy 68.5; Estimated Glomerular Filt Rate > 60; Glucose Random 111 mg/dL (60-115); Lipase 20 U/L (8-78); Potassium 3.6 mmol/L (3.3-5.1); Sodium 141 mmol/L (135-145); Total Protein 6.4 g/dL (6.5-8.0)
--- NOTE | 2020-12-08 09:44 | PC.NURSE ---
us at bedside
[2020-12-08 09:49] LABS: Alanine Aminotransferase < 6 U/L (0-31)
--- NOTE | 2020-12-08 11:24 | PC.NURSE ---
pt tolerated po challenge reports belching
== END 2020-12-08 11:37 | disposition home or self-care (01) ==
PROVIDERS: Physician Assistant; Emergency Provider Student in an Organized Health Care Education/Training Program; PCP Internal Medicine
DX: R10.10 Upper abdominal pain, unspecified (principal); R11.2 Nausea with vomiting, unspecified; E78.00 Pure hypercholesterolemia, unspecified; I10 Essential (primary) hypertension; F17.210 Nicotine dependence, cigarettes, uncomplicated; F12.90 Cannabis use, unspecified, uncomplicated; F14.10 Cocaine abuse, uncomplicated; Z95.2 Presence of prosthetic heart valve; Z79.02 Long term (current) use of antithrombotics/antiplatelets; Z79.82 Long term (current) use of aspirin; Z79.899 Other long term (current) drug therapy
CPT/HCPCS: 36415; 76705; 80053; 83690; 83735; 85025; 85610; 93005; 96361; 96374; 96375; 99284; 99285; J2405

== ENCOUNTER → 2020-12-13 09:06 | Outpatient (BNVA) | payer MEDICARE, MEDICAID, SELFPAY | PROVIDERS: PCP Internal Medicine; Visit Provider Internal Medicine | DX: J44.9 Chronic obstructive pulmonary disease, unspecified (principal); F17.200 Nicotine dependence, unspecified, uncomplicated | CPT/HCPCS: 99202 ==

== ENCOUNTER 2020-12-31 09:24 | Outpatient (REF) | payer MEDICARE, MEDICAID, SELFPAY ==
--- NOTE | 2020-12-31 16:59 | PFT_ITS ---
FLOWS: FEV1 83% of predicted at 1.91 L. FVC 95% of predicted at 2.91 L. FEV1/FVC ratio of 0.66. No bronchodilator response. LUNG VOLUMES: Total lung capacity 100% of predicted at 4.77 L. Residual volume 83% of predicted at 1.57 L. Slow vital capacity 104% of predicted at 3.21 L. Expiratory reserve volume 158% of predicted at 1.22 L. Diffusion capacity is moderately decreased. IMPRESSION: Mild obstructive ventilatory defect with no bronchodilator response. Decreased diffusion capacity suggests emphysema. Chris Gross MD AP/MODL / [id number]
== END 2020-12-31 09:25 | disposition home or self-care (01) ==
LOC: HO.RESP 09:24
PROVIDERS: Visit Provider Internal Medicine
DX: J44.9 Chronic obstructive pulmonary disease, unspecified (principal); F17.200 Nicotine dependence, unspecified, uncomplicated
CPT/HCPCS: 94060; 94727; 94729

== ENCOUNTER → 2021-01-08 14:24 | Outpatient (BNVA) | payer MEDICARE, MEDICAID, SELFPAY | PROVIDERS: PCP Internal Medicine; Referring Provider Internal Medicine; Visit Provider Nurse Practitioner | DX: K58.0 Irritable bowel syndrome with diarrhea (principal); K31.84 Gastroparesis; K21.9 Gastro-esophageal reflux disease without esophagitis | CPT/HCPCS: 99202 ==

== ENCOUNTER 2021-01-11 13:44 | Outpatient (REF) | payer MEDICARE, MEDICAID, SELFPAY ==
--- NOTE | ~2021-01-11 | CT_ITS ---
EXAMINATION: CT CHEST SCREENING CLINICAL INFORMATION: Nicotine dependence. COMPARISON: CTA chest 10/23/2017. TECHNIQUE: Multidetector volumetric CT imaging of the chest is performed without contrast using low dose technique. Additional 2D coronal and sagittal reformatted images and axial 3D maximum intensity projection (MIP) images are generated on the CT workstation. This CT examination was performed using dose optimization techniques as appropriate, variously including the following: *Automated exposure control *Adjustment of mA and/or kV according to patient size (this includes techniques or standardized protocols for targeted exams where dose is matched to indication/reason for exam; i.e. extremities or head) *Use of iterative reconstruction technique DLP: 39 mGy-cm FINDINGS: LUNGS: The lungs are well expanded without acute process. There is 8 mm nodule left upper lobe axial image /. Previously it measured 7 mm. No additional nodules visualized. Mild atelectatic changes seen in the lingula. MEDIASTINUM: The heart size and the great vessels are normal caliber. There are coronary artery calcifications. No pericardial effusion seen. Central trachea and the bronchi are widely patent. Thyroid lobes are symmetrical and normal. No abnormal-sized mediastinal or hilar lymph nodes seen. PLEURA: There is no pleural effusion. No pleural mass or thickening. AXILLA: No lymphadenopathy. UPPER ABDOMEN: Visualized liver, spleen and pancreas appears unremarkable. OSSEOUS STRUCTURES: No lytic or sclerotic process. CT/CT lung screening IMPRESSION: 8 mm nodule left upper lobe; on previous CT chest it measured 7 mm. No additional nodules seen. Mild emphysema. No abnormal mediastinal or axillary lymph nodes. Moderate coronary artery calcifications.
== END 2021-01-11 13:45 | disposition home or self-care (01) ==
LOC: HO.CT 13:44
PROVIDERS: PCP Internal Medicine; Visit Provider Physician Assistant Medical
DX: Z13.89 Encounter for screening for other disorder (principal)
CPT/HCPCS: 71271; G0296

== ENCOUNTER 2021-01-11 15:53 | Outpatient (REF) | payer MEDICARE, MEDICAID, SELFPAY ==
--- NOTE | ~2021-01-11 | XR_ITS ---
EXAMINATION: LEFT HAND/WRIST CLINICAL INFORMATION: Fall. Initial encounter. COMPARISON: None TECHNIQUE: 3 views. FINDINGS: There is loss of first carpometacarpal joint space with moderate periarticular spurring. No visible acute fracture, dislocation or lytic process seen. The PIP and DIP joints are normal. The soft tissues are normal. XR/XR hand wrist LT IMPRESSION: Degenerative arthritic changes first carpometacarpal joint space with moderate periarticular spurring. No visible acute fracture or dislocation seen.
== END 2021-01-11 15:54 | disposition home or self-care (01) ==
LOC: HO.HMGCX 15:53
PROVIDERS: PCP Internal Medicine; Visit Provider Physician Assistant
DX: S63.502A Unspecified sprain of left wrist, initial encounter (principal); F17.210 Nicotine dependence, cigarettes, uncomplicated; W19.XXXA Unspecified fall, initial encounter; Y93.9 Activity, unspecified; Y92.9 Unspecified place or not applicable; Y99.9 Unspecified external cause status
CPT/HCPCS: 71271; 73110; 73130; G0296

== ENCOUNTER 2021-01-15 10:00 | Outpatient (REF) | payer MEDICARE, MEDICAID, SELFPAY ==
[2021-01-15 18:19] LABS: Amphetamine Screen Urine Not Detected (Not Detect); Barbiturates, Urine Not Detected (Not Detect); Benzodiazepines Screen Urine Not Detected (Not Detect); Cannabinoid Screen Urine POSITIVE (Not Detect); Cocaine Screen Urine Not Detected (Not Detect); Fentanyl, urine Not Detected (Not Detect); Opiate Screen Urine Not Detected (Not Detect); Phencyclidine Screen Urine Not Detected (Not Detect)
== END 2021-01-15 10:01 | disposition home or self-care (01) ==
LOC: HO.LAB 10:00
PROVIDERS: Absent Provider Internal Medicine; PCP Internal Medicine; Visit Provider Internal Medicine
DX: J44.9 Chronic obstructive pulmonary disease, unspecified (principal); F17.200 Nicotine dependence, unspecified, uncomplicated; F11.90 Opioid use, unspecified, uncomplicated; Z79.899 Other long term (current) drug therapy
CPT/HCPCS: 80307; 99212

== ENCOUNTER 2021-01-21 08:17 | Outpatient (REF) | payer MEDICARE, MEDICAID, SELFPAY ==
[2021-01-21 13:50] LABS: CT PCR NOT DETECTED (Not Detect.); NG PCR NOT DETECTED (Not Detect.)
== END 2021-01-21 08:18 | disposition home or self-care (01) ==
LOC: HO.LAB 08:17
PROVIDERS: Visit Provider Advanced Practice Midwife
DX: Z01.419 Encounter for gynecological examination (general) (routine) without abnormal findings (principal); Z11.3 Encounter for screening for infections with a predominantly sexual mode of transmission; Z20.2 Contact with and (suspected) exposure to infections with a predominantly sexual mode of transmission
CPT/HCPCS: 87491; 87591; 99212

== ENCOUNTER → 2021-01-24 09:21 | Outpatient (BNVA) | payer MEDICARE, MEDICAID, SELFPAY | PROVIDERS: PCP Internal Medicine; Referring Provider Internal Medicine; Visit Provider Internal Medicine Cardiovascular Disease | DX: I34.0 Nonrheumatic mitral (valve) insufficiency (principal); I10 Essential (primary) hypertension; E78.00 Pure hypercholesterolemia, unspecified; F17.210 Nicotine dependence, cigarettes, uncomplicated; F41.8 Other specified anxiety disorders; Z79.899 Other long term (current) drug therapy | CPT/HCPCS: 99212 ==

== ENCOUNTER → 2021-02-06 07:55 | Outpatient (BNVA) | payer MEDICARE, MEDICAID, SELFPAY | PROVIDERS: Visit Provider Physician Assistant | DX: S63.502A Unspecified sprain of left wrist, initial encounter (principal); M18.12 Unilateral primary osteoarthritis of first carpometacarpal joint, left hand | CPT/HCPCS: 99202 ==

== ENCOUNTER → 2021-04-09 08:45 | Outpatient (BNVA) | payer MEDICARE, MEDICAID, SELFPAY | PROVIDERS: PCP Internal Medicine; Referring Provider Internal Medicine; Visit Provider Nurse Practitioner | DX: K58.0 Irritable bowel syndrome with diarrhea (principal); K31.84 Gastroparesis; K21.9 Gastro-esophageal reflux disease without esophagitis | CPT/HCPCS: 99212 ==

== ENCOUNTER → 2021-04-11 10:03 | Outpatient (BNVA) | payer MEDICARE, MEDICAID, SELFPAY | PROVIDERS: PCP Internal Medicine; Visit Provider Internal Medicine | DX: J44.9 Chronic obstructive pulmonary disease, unspecified (principal); R91.1 Solitary pulmonary nodule; F17.210 Nicotine dependence, cigarettes, uncomplicated | CPT/HCPCS: 99212 ==

== ENCOUNTER 2021-04-15 09:06 | Outpatient (REF) | payer MEDICARE, MEDICAID, SELFPAY ==
[2021-04-15 09:28] LABS: MANUAL DIFF FLAG NO
[2021-04-15 09:43] LABS: Basophils Absolute Auto 0.1 X10*3/uL (0.0-0.2); Basophils Percent Auto 1.4 % (0-2); Eosinophils Absolute Auto 0.2 X10*3/uL (0.0-0.4); Eosinophils Percent Auto 2.9 % (0-4); Hematocrit 38.5 % (37.0-47.0); Imm Gran Abs Auto 0.02 X10*3/uL (0.00-0.03); Imm Gran Pct Auto 0.3 % (0.0-0.4); Lymphocytes Absolute Auto 1.6 X10*3/uL (1.2-4.9); Lymphocytes Percent Auto 28.1 % (20-40); Mean Corpuscular HGB Conc 31.2 g/dl (31.0-35.0); Mean Corpuscular Hemoglobin 25.2 pg (27.0-33.0); Mean Corpuscular Volume 80.9 fL (80.0-98.0); Mean Platelet Volume 9.1 fL (9.4-12.3); Monocytes Absolute Auto 0.5 X10*3/uL (0.1-1.2); Monocytes Percent Auto 9.3 % (2-11); Neutrophils Absolute Auto 3.4 x10*3/uL (2.0-8.3); Platelet Count 236 X10*3/uL (160-400); Red Blood Count 4.76 X10*6/uL (4.20-5.50); Red Cell Distribution Width 15.2 % (11.0-16.0); White Blood Count 5.8 X10*3/uL (4.8-10.8)
[2021-04-15 09:58] LABS: Appearance Urine CLEAR; Color Urine YELLOW; Glucose Urine UA NEG (NEG); Leukocyte Esterase Urine NEG (NEG); Nitrite Urine NEG (NEG); PH 5.5 (5.0-8.0); UACC Culture Trigger NO; Urine Blood TRACE (NEG); Urine Ketones NEG (NEG); Urine Protein NEG (NEG-TRACE)
[2021-04-15 10:03] LABS: RBC Urine 0 /HPF (0); Squamous Epithelial Cell Urine TRACE /LPF; WBC Urine 0-2 /HPF (0-4)
[2021-04-15 10:30] LABS: Alanine Aminotransferase 8 U/L (0-31); Albumin Level 4.1 g/dL (3.5-5.0); Alkaline Phosphatase 73 U/L (39-117); Anion Gap 13 (12-20); Aspartate Amino Transferase 16 U/L (5-31); Bilirubin Total < 0.2 mg/dL (0.0-1.0); Blood Urea Nitrogen 11 mg/dL (9-16); Calcium 9.4 mg/dL (8.4-10.2); Carbon Dioxide 26 mmol/L (22-29); Chloride 107 mmol/L (96-108); Cholesterol 202 mg/dL; Estimated Glomerular Filt Rate > 60; Glucose Fasting 125 mg/dL (60-99); HDL Cholesterol 55 mg/dL; LDL Cholesterol Calculated 130 mg/dl; Potassium 4.2 mmol/L (3.3-5.1); Sodium 142 mmol/L (135-145); Total Protein 7.1 g/dL (6.5-8.0); Triglycerides 86 mg/dL
[2021-04-15 10:43] LABS: TSH reflex Free T4 3.13 uIU/mL (0.32-4.0); Vitamin D 25-OH Total 8.4 ng/mL (>30)
== END 2021-04-15 09:07 | disposition home or self-care (01) ==
LOC: HO.LAB 09:06
PROVIDERS: PCP Internal Medicine; Visit Provider Internal Medicine
DX: I10 Essential (primary) hypertension (principal); E78.00 Pure hypercholesterolemia, unspecified; E55.9 Vitamin D deficiency, unspecified
CPT/HCPCS: 36415; 80053; 80061; 81001; 81003; 82306; 84443; 85025

== ENCOUNTER 2021-04-20 21:28 | Emergency (ER) | payer MEDICARE, MEDICAID, SELFPAY ==
--- NOTE | 2021-04-20 | ECG_ITS ---
Test Reason : OVERDOSE Blood Pressure : / mmHG Vent. Rate : 099 BPM Atrial Rate : 099 BPM P-R Int : 186 ms QRS Dur : 088 ms QT Int : 382 ms P-R-T Axes : 076 -26 084 degrees QTc Int : 490 ms Artifact in tracing Normal sinus rhythm Leftward axis Nonspecific ST and T wave abnormality Prolonged QT Abnormal ECG When compared with ECG of 08-DEC-2020 08:08, No significant change was found Referred By: Generic ED Physician Electronically Signed By:CHRISTELLE HESS
[2021-04-20 21:30] VITALS: BP 192/108; PULSE 121; RESP 18; TEMP 37.1; O2SAT 100; BMI 23.2
== END 2021-04-20 23:19 | disposition left against medical advice (07) ==
LOC: HO.ED 23:09
PROVIDERS: Emergency Provider Emergency Medicine; PCP Internal Medicine
DX: F14.90 Cocaine use, unspecified, uncomplicated (principal)
CPT/HCPCS: 93005; 99283

== ENCOUNTER 2021-05-05 09:20 | Emergency (ER) | payer MEDICARE, MEDICAID, SELFPAY ==
--- NOTE | ~2021-05-05 | US_ITS ---
EXAMINATION: LEFT LOWER EXTREMITY DEEP VENOUS ULTRASOUND CLINICAL INFORMATION: Left lower extremity pain. COMPARISON: None. TECHNIQUE: Duplex Doppler imaging with compression maneuvers were performed of the left lower extremity deep venous system. FINDINGS: The visualized common femoral, femoral and popliteal veins demonstrate normal compressibility and color flow without evidence of venous thrombosis. Visualized portions of the calf veins demonstrate normal color fill-in suggesting patency. Small simple appearing Rodriguez's cyst which measures approximately 2.1 x 0.5 x 1.7 cm. US/US venous duplex LE LT IMPRESSION: No evidence of deep venous thrombosis involving the left lower extremity.
[2021-05-05 09:23] VITALS: BP 148/96; PULSE 133; RESP 19; TEMP 36.6; O2SAT 95; BMI 23.2
[2021-05-05 09:46] VITALS: TEMP 37.1
--- NOTE | 2021-05-05 09:52 | ED_ITS ---
HPI - Extremity Injury (Lower) General Chief Complaint: Wound/Laceration Stated Complaint: L leg swollen Time Seen by Provider: 05/05/21 09:31 Source: patient Mode of arrival: ambulatory Limitations: no limitations History of Present Illness HPI Narrative: This is a 60 years old the female presented to the emergency room complaining of left calf pain, she states that she injected cocaine on April 20 the injection was in the left calf. She denies any fever, chills, diaphoresis. She is fully ambulatory to the emergency department. She has history of substance abuse, endocarditis anxiety disorder MD complaint: other (left leg pain) Type of Injury: other (injection cocaine left leg) Place: home Severity: moderate Relieving factors: nothing Exacerbating factors: nothing Context: other (IV cocaine injection) Other symptoms: none Related Data Home Medications Medication Instructions Recorded Confirmed dicyclomine 10 mg capsule 10 mg PO Q6H PRN 04/11/21 04/23/21 Previous Rx's Medication Instructions Recorded cholecalciferol (vitamin D3) 50 50 mcg PO DAILY 90 Days #90 cap 08/30/20 mcg (2,000 unit) capsule ibuprofen 600 mg tablet 600 mg PO Q8H PRN 30 Days #90 tab 09/11/20 escitalopram oxalate 20 mg tablet 20 mg PO DAILY 90 Days #90 tab 12/03/20 hydroxyzine HCl 50 mg tablet 50 mg PO BEDTIME #90 tab 12/03/20 tiotropium bromide 18 mcg capsule 1 cap INHALATION DAILY 30 Days 12/27/20 #30 with inhalation device (Spiriva inh with HandiHaler) sucralfate 1 gram tablet 2 g PO QNOON 30 Days #60 tab 01/08/21 (Carafate) simvastatin 40 mg tablet 40 mg PO BEDTIME #90 tab 02/25/21 pantoprazole 40 mg tablet,delayed 40 mg PO DAILY 90 Days #90 tab 03/12/21 release aspirin 81 mg tablet,delayed 81 mg PO DAILY #30 tab 03/20/21 release (Ecotrin Low Strength) metoclopramide HCl 5 mg tablet 5 mg PO .TIDAC 30 Days #90 tab 03/20/21 (Reglan) lorazepam 1 mg tablet 1 mg PO BID PRN 28 Days #56 tab 04/01/21 nicotine 14 mg/24 hr daily 1 patch TRANSDERMAL DAILY 28 Days 04/11/21 transdermal patch #28 ea fluticasone propionate 50 1 spray INTRANASAL DAILY #16 ml 04/19/21 mcg/actuation nasal spray,suspension lisinopril 5 mg tablet 5 mg PO DAILY #30 tab 04/19/21 nicotine 14 mg/24 hr daily 1 patch TRANSDERMAL DAILY 7 Days 04/19/21 transdermal patch #7 ea nicotine 21 mg/24 hr daily 1 patch TRANSDERMAL DAILY 7 Days 04/19/21 transdermal patch #7 ea nicotine 7 mg/24 hr daily 1 patch TRANSDERMAL Q24H 28 Days 04/19/21 transdermal patch #28 ea albuterol sulfate 90 mcg/actuation 1 puff PO Q6H PRN #18 g 05/01/21 aerosol inhaler (Ventolin HFA) cyclobenzaprine 5 mg tablet 5 mg PO TID PRN 30 Days #90 tab 05/01/21 oxycodone 5 mg tablet 5 mg PO .1-2 times daily PRN 10 05/01/21 Days #20 tab Allergies Allergy/AdvReac Type Severity Reaction Status Date / Time No Known Allergies Allergy Unknown unknown Verified 04/23/21 18:31 [NO KNOWN ALLERGIES] Review of Systems Verdana 4l Review of Systems: Yes all other systems are reviewed and Verdana 4d are negative Verdana 4l Constitutional: Verdana 4d Constitutional: Verdana 4d Verdana 4d Denies chills and Denies fever(s) Verdana 4l Cardiovascular: Verdana 4d Cardiovascular: Verdana 4d Verdana 4d Denies chest pain, Denies chest pain at rest and Denies chest pain with activity Verdana 4l Respiratory: Verdana 4d Verdana 4d Respiratory: Verdana 4d Reports no additional respiratory complaints Verdana 4l Musculoskeletal: Verdana 4d Musculoskeletal: Verdana 4d Verdana 4d Reports no additional musculoskeletal complaints [facility] Past Medical History Medical History Allergic rhinitis Anxiety Benign essential hypertension Cervical spondylosis COPD (chronic obstructive pulmonary disease) Depression Early satiety 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 Gastritis GERD (gastroesophageal reflux disease) History of hepatitis C IV drug user Mitral regurgitation Mitral valve prolapse Osteopenia (~2011) Paresthesia of left leg Personal history of nicotine dependence Pulmonary nodule Pure hypercholesterolemia Rectal prolapse Smoker Vitamin D deficiency Surgical History History of colonoscopy History of hysteroscopy History of liver biopsy History of partial colectomy Family History Family History Father Internal bleeding Mother Medical history unknown Social History Social History Housing: House Alcohol intake: former Patient Tobacco Use Status: Current everyday Tobacco user Tobacco use type: Cigarette Cigarette Packs Per Day: 0.5 Cigarettes Per Day: 10 Years Smoked: 44 years (onset 15, 1/2-3/4ppd x 44yrs, 28pyh) Second Hand Smoke Exposure: Yes Use of substances other than those prescribed or required for medical reasons: Yes Substance Use Type: Crack/Cocaine Substance Use Frequency Other:: clean prior to 04/20, and hasnt used after 04/20 Advance Directives: No Advance Directives Information Provided: No Patient : No service: No Current occupational status: employed 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 Sexual orientation: Straight/Heterosexual Gender identity: Female Physical Exam Verdana 4l Vital Signs: Verdana 4d Verdana 4d Vital Signs: Verdana 4d Verdana 4Bd Last Vital Signs Verdana 4d Music Education Adjunct Professor New 4d Music Education Adjunct Professor New 4d Temp 98.8 F 05/05/21 09:46 Music Education Adjunct Professor New 4d Pulse 92 05/05/21 11:13 Music Education Adjunct Professor New 4d Resp 16 05/05/21 11:13 BP 134/86 05/05/21 11:13 Pulse Ox 95 05/05/21 09:23 BMI result Body Mass Index 23.2 Const: General: cooperative, comfortable, no acute distress and alert Nutritional Appearance: average body habitus Orientation/consciousness: patient oriented x3 Limitations: no limitations HENMT: Head: Yes normal to inspection Face and sinus: Yes normal facial exam Mouth: Normal oral and palatal mucosa present Throat: Yes posterior oropharynx normal Neck: Neck: Yes normal visual inspection and Yes full ROM Chest: Chest palpation & inspection: normal inspection of the chest Resp: Effort & Inspection: normal respiratory effort and able to speak in complete sentences Auscultation: clear to auscultation bilaterally Cardio: Jugular venous distension: no JVD Rate: regular rate Rhythm: regular rhythm GI: Inspection: Yes normal to inspection Palpation (GI): Soft to palpation, not firm, nontender and no guarding Skin: General skin exam: no rashes or lesions noted Rashes: no rashes Neuro: General: patient oriented x3 Extrem: Other: Patient has tenderness in the left calf , I do not see redness, I do not see any evidence of abscess, compartment is soft, there is no clinical evidence of compartment syndrome, pulses are present in the foot . Psych: Affect: Anxious affect present Attitude: cooperative Thought process: Normal thought process present Course Reevaluation(s) Reevaluation #1: US leg negative no DVT MDM - Extremity Injury (Lower) Medical Records Medical records narrative: Patient is afebrile, not toxic perfusing well as the left leg there is no sign of compartment syndrome there is no sign of cellulitis nor of abscess the injection 2 cocaine was 2 weeks ago. In triage she had a resting tachycardia most likely related to anxiety we recheck her vitals in the treatment room heart rate is 105. I am going to get an ultrasound on the left lower extremity, there is no clinical concern for sepsis, I do not think we need to get blood work. Planof care discussed with the patient she is very comfortable with this. Imaging Data us leg: Radiologist's impression: None. TECHNIQUE: Duplex Doppler imaging with compression maneuvers were performed of the left lower extremity deep venous system. FINDINGS: The visualized common femoral, femoral and popliteal veins demonstrate normal compressibility and color flow without evidence of venous thrombosis. ? Visualized portions of the calf veins demonstrate normal color fill-in suggesting patency. Small simple appearing Rodriguez's cyst which measures approximately 2.1 x 0.5 x 1.7 cm. US/US venous duplex LE LT IMPRESSION: No evidence of deep venous thrombosis involving the left lower extremity. Dictated By: ROSA FERNANDEZ MD Signed By: <Electronically signed by ROSA FERNANDEZ MD in OV> 05/05/21 1053 DD/ 1013 DD/ 0830 TD/TT:? Tool Maker Bench: VERNA Discharge Plan Discharge Clinical Impression: Left leg pain Patient Disposition: Home, Self-Care Additional Instructions: Follow-up with your primary care physician return to emergency room if you worse , fever, chills. You can take ibuprofen or Tylenol for pain Prescriptions: No Action cholecalciferol (vitamin D3) 50 mcg (2,000 unit) capsule 50 mcg PO DAILY 90 Days Qty: 90 3RF Rx Instructions: 1 capsule Orally Once a day ibuprofen 600 mg tablet 600 mg PO Q8H PRN (Reason: pain) 30 Days Qty: 90 1RF Rx Instructions: take with food hydroxyzine HCl 50 mg tablet 50 mg PO BEDTIME Qty: 90 1RF escitalopram oxalate 20 mg tablet 20 mg PO DAILY 90 Days Qty: 90 1RF Spiriva with HandiHaler 18 mcg capsule, w/inhalation device 1 cap inhalation DAILY 30 Days Qty: 30 5RF Rx Instructions: puncture 1 cap using device; one dose = 2 inhalations simvastatin 40 mg tablet 40 mg PO BEDTIME Qty: 90 1RF pantoprazole 40 mg tablet,delayed release (DR/EC) 40 mg PO DAILY 90 Days Qty: 90 1RF aspirin [Ecotrin Low Strength] 81 mg tablet,delayed release (DR/EC) 81 mg PO DAILY Qty: 30 5RF metoclopramide HCl [Reglan] 5 mg tablet 5 mg PO .TIDAC 30 Days Qty: 90 3RF lorazepam 1 mg tablet 1 mg PO BID PRN (Reason: anxiety) 28 Days Qty: 56 0RF cyclobenzaprine 5 mg tablet 5 mg PO TID PRN (Reason: muscle spasm) 30 Days Qty: 90 1RF albuterol sulfate [Ventolin HFA] 90 mcg/actuation HFA aerosol inhaler 1 puff PO Q6H PRN (Reason: shortness of breath or wheezing) Qty: 18 3RF oxycodone 5 mg tablet 5 mg PO .1-2 times daily PRN (Reason: pain) 10 Days Qty: 20 0RF fluticasone propionate 50 mcg/actuation spray,suspension 1 spray intranasal DAILY Qty: 16 5RF lisinopril 5 mg tablet 5 mg PO DAILY Qty: 30 5RF nicotine 21 mg/24 hr patch 24 hour 1 patch transdermal DAILY 7 Days Qty: 7 0RF nicotine 14 mg/24 hr patch 24 hour 1 patch transdermal DAILY 7 Days Qty: 7 0RF nicotine 7 mg/24 hr patch 24 hour 1 patch transdermal Q24H 28 Days Qty: 28 5RF sucralfate [Carafate] 1 gram tablet 2 g PO QNOON 30 Days Qty: 60 6RF dicyclomine 10 mg capsule 10 mg PO Q6H PRN0RF nicotine 14 mg/24 hr patch 24 hour 1 patch transdermal DAILY 28 Days Qty: 28 3RF Rx Instructions: 14 mg patch Referrals: Sarthak Person MD [Primary Care Provider] - 2 days Interventions: ED Discharge Assessment Last Done: 05/05/21 11:19 Discharge Date/Time: 05/05/21 11:27
[2021-05-05 09:57] VITALS: PULSE 102; RESP 16
[2021-05-05 11:13] VITALS: BP 134/86; PULSE 92; RESP 16
[2021-05-05] MEDS: Acetaminophen 325 MG TABLET 650 MG PO (11:25)
== END 2021-05-05 11:27 | disposition home or self-care (01) ==
PROVIDERS: Emergency Provider Emergency Medicine; PCP Internal Medicine
DX: M79.605 Pain in left leg (principal); R60.0 Localized edema; F14.90 Cocaine use, unspecified, uncomplicated; F11.10 Opioid abuse, uncomplicated; F41.1 Generalized anxiety disorder; F43.0 Acute stress reaction; F17.210 Nicotine dependence, cigarettes, uncomplicated; Z71.6 Tobacco abuse counseling
CPT/HCPCS: 93971; 99284

== ENCOUNTER 2021-06-25 08:31 | Emergency (ER) | payer MEDICARE, MEDICAID, SELFPAY ==
--- NOTE | 2021-06-25 | ECG_ITS ---
Test Reason : chest pain Blood Pressure : / mmHG Vent. Rate : 087 BPM Atrial Rate : 087 BPM P-R Int : 176 ms QRS Dur : 086 ms QT Int : 356 ms P-R-T Axes : 076 -10 112 degrees QTc Int : 428 ms Sinus rhythm with marked sinus arrhythmia ST & T wave abnormality, consider lateral ischemia Abnormal ECG When compared with ECG of 20-APR-2021 21:53, ST more depressed Anterior leads T wave inversion now evident in Lateral leads QT has shortened Referred By: Generic ED Physician Electronically Signed By:Tico Edmonds
--- NOTE | ~2021-06-25 | XR_ITS ---
EXAMINATION: XR CHEST CLINICAL INFORMATION: Chest pain COMPARISON: None TECHNIQUE: 2 views of the chest were obtained. FINDINGS: No significant abnormality is noted involving the heart, lungs, mediastinum, bony thorax or soft tissues. XR/XR chest 2V IMPRESSION: Unremarkable chest examination.
[2021-06-25 10:06] VITALS: BP 121/80; PULSE 102; RESP 18; TEMP 36.6; O2SAT 97; BMI 21.9
[2021-06-25 10:44] LABS: MANUAL DIFF FLAG NO
[2021-06-25 10:46] LABS: Basophils Absolute Auto 0.1 X10*3/uL (0.0-0.2); Basophils Percent Auto 0.9 % (0-2); Eosinophils Absolute Auto 0.1 X10*3/uL (0.0-0.4); Eosinophils Percent Auto 1.3 % (0-4); Hematocrit 39.9 % (37.0-47.0); Hemoglobin 12.2 g/dl (12.0-16.0); Imm Gran Abs Auto 0.02 X10*3/uL (0.00-0.03); Imm Gran Pct Auto 0.3 % (0.0-0.4); Lymphocytes Absolute Auto 1.5 X10*3/uL (1.2-4.9); Lymphocytes Percent Auto 21.4 % (20-40); Mean Corpuscular HGB Conc 30.6 g/dl (31.0-35.0); Mean Corpuscular Hemoglobin 23.6 pg (27.0-33.0); Mean Platelet Volume 8.7 fL (9.4-12.3); Monocytes Absolute Auto 0.6 X10*3/uL (0.1-1.2); Monocytes Percent Auto 8.6 % (2-11); Neutrophils Absolute Auto 4.7 x10*3/uL (2.0-8.3); Neutrophils Percent Auto 67.5 % (45-73); Platelet Count 213 X10*3/uL (160-400); Red Blood Count 5.18 X10*6/uL (4.20-5.50)
[2021-06-25 10:54] LABS: Prothrombin Time 10.9 SEC (9.9-13.0)
[2021-06-25 10:57] LABS: Partial Thromboplastin Time 37.4 SEC (24.1-38.0)
[2021-06-25 11:00] LABS: Anion Gap 13 (12-20); Blood Urea Nitrogen 10 mg/dL (9-16); Calcium 9.7 mg/dL (8.4-10.2); Carbon Dioxide 27 mmol/L (22-29); Chloride 105 mmol/L (96-108); Creatinine Clr Calc Pharmacy 60.6; Estimated Glomerular Filt Rate > 60; Glucose Random 105 mg/dL (60-115); Potassium 4.7 mmol/L (3.3-5.1); Sodium 140 mmol/L (135-145)
[2021-06-25 11:08] LABS: Troponin-I High Sensitivity 5.2 ng/L (<3.5-17.0)
--- NOTE | 2021-06-25 12:12 | ED_ITS ---
HPI - Chest Pain General Chief Complaint: Chest Pain Stated Complaint: Upper abd pain Time Seen by Provider: 06/25/21 12:12 Source: patient Mode of arrival: ambulatory Limitations: no limitations History of Present Illness HPI narrative: 60-year-old female came in for evaluation of left-sided chest pain. Left chest wall/rib pain started since 07:00 o'clock in the morning after patient was coughing, she is known to have COPD and currently actively smoking, patient otherwise decline trauma to the left side of chest however patient mentioned that she fell 2 days ago hurting the right side of the chest and do n ot think the pain is related to the fall. Patient has been constant since it started, localized to the left lower chest wall, no radiation, pain was described as sharp pain and severe 11/13, patient cl aimed that she has been having some shortness of breath since then, movement and taking a deep breath making it worse, but no relieving factors. No fever, no chills. Declines recent history of traveling or prolonged it immobilization, no lower extremity swelling or tenderness, no history of DVT/PE. Patient is known to have history of anxiety thinks that her symptoms could be secondary to anxiety. Related Data Previous Rx's Medication Instructions Recorded cholecalciferol (vitamin D3) 50 50 mcg PO DAILY 90 Days #90 cap 08/30/20 mcg (2,000 unit) capsule ibuprofen 600 mg tablet 600 mg PO Q8H PRN 30 Days #90 tab 09/11/20 escitalopram oxalate 20 mg tablet 20 mg PO DAILY 90 Days #90 tab 12/03/20 hydroxyzine HCl 50 mg tablet 50 mg PO BEDTIME #90 tab 12/03/20 tiotropium bromide 18 mcg capsule 1 cap INHALATION DAILY 30 Days #30 12/27/20 with inhalation device (Spiriva inh with HandiHaler) sucralfate 1 gram tablet (Carafate) 2 g PO QNOON 30 Days #60 tab 01/08/21 simvastatin 40 mg tablet 40 mg PO BEDTIME #90 tab 02/25/21 pantoprazole 40 mg tablet,delayed 40 mg PO DAILY 90 Days #90 tab 03/12/21 release aspirin 81 mg tablet,delayed 81 mg PO DAILY #30 tab 03/20/21 release (Ecotrin Low Strength) metoclopramide HCl 5 mg tablet 5 mg PO .TIDAC 30 Days #90 tab 03/20/21 (Reglan) nicotine 14 mg/24 hr daily 1 patch TRANSDERMAL DAILY 28 Days 04/11/21 transdermal patch #28 ea lisinopril 5 mg tablet 5 mg PO DAILY #30 tab 04/19/21 nicotine 14 mg/24 hr daily 1 patch TRANSDERMAL DAILY 7 Days 04/19/21 transdermal patch #7 ea nicotine 21 mg/24 hr daily 1 patch TRANSDERMAL DAILY 7 Days 04/19/21 transdermal patch #7 ea nicotine 7 mg/24 hr daily 1 patch TRANSDERMAL Q24H 28 Days 04/19/21 transdermal patch #28 ea albuterol sulfate 90 mcg/actuation 1 puff PO Q6H PRN #18 g 05/01/21 aerosol inhaler (Ventolin HFA) cyclobenzaprine 5 mg tablet 5 mg PO TID PRN 30 Days #90 tab 05/01/21 dicyclomine 10 mg capsule 10 mg PO QID #360 cap 05/20/21 lorazepam 1 mg tablet 1 mg PO BID PRN 28 Days #56 tab 06/10/21 fluticasone propionate 50 1 spray INTRANASAL DAILY #16 ml 06/16/21 mcg/actuation nasal spray,suspension oxycodone 5 mg tablet 5 mg PO .1-2 times daily PRN 10 06/20/21 Days #20 tab Allergies Allergy/AdvReac Type Severity Reaction Status Date / Time No Known Allergies Allergy Unknown unknown Verified 04/23/21 18:31 [NO KNOWN ALLERGIES] Review of Systems Review of Systems: All other systems are reviewed and are negative Constitutional: Reports as per HPI and Reports no additional constitutional complaints Eyes: Reports as per HPI and Reports no additional eye complaints Reports system reviewed and no additional complaints, except as documented Cardiovascular: Reports as per HPI and Reports no additional cardiovascular complaints Respiratory: Reports as per HPI and Reports no additional respiratory complaints Gastrointestinal: Reports as per HPI and Reports no additional gastrointestinal complaints Genitourinary: Reports no additional female genitourinary complaints Musculoskeletal: Reports no additional musculoskeletal complaints Skin/Breast: Reports system reviewed and no additional complaints, except as docu Psychiatric: Reports no additional psychiatric complaints Endocrine: Reports no additional endocrine complaints Hematologic/Lymphatic: Reports no additional hematologic/lymphatic complaints Allergic/Immunologic: Reports no additional allergic/immunologic complaints Reports system reviewed and no additional complaints, except as documented and Reports Abnormal speech present [facility] Past Medical History Medical History Allergic rhinitis Anxiety Benign essential hypertension Cervical spondylosis COPD (chronic obstructive pulmonary disease) Depression Early satiety 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 Gastritis GERD (gastroesophageal reflux disease) History of hepatitis C IV drug user Mitral regurgitation Mitral valve prolapse Osteopenia (~2011) Paresthesia of left leg Personal history of nicotine dependence Pulmonary nodule Pure hypercholesterolemia Rectal prolapse Smoker Vitamin D deficiency Surgical History History of colonoscopy History of hysteroscopy History of liver biopsy History of partial colectomy Family History Family History Father Internal bleeding Mother Medical history unknown Social History Social History Housing: House Alcohol intake: former Patient Tobacco Use Status: Current everyday Tobacco user Tobacco use type: Cigarette Cigarette Packs Per Day: 0.5 Cigarettes Per Day: 10 Years Smoked: 45 years (onset 15, 1/2-3/4ppd x 44yrs, 28pyh) Second Hand Smoke Exposure: Yes Substance Use Type: Crack/Cocaine Advance Directives: Yes Advance Directives Information Provided: No Advance Directives on File: No service: No Current occupational status: employed 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 Blood pressure normal. Heart rate normal. Respiration rate normal. Temperature normal. Oxygen saturation normal. Appearance: Alert. Oriented X3. No acute distress. Head: Normal external exam. Normocephalic. Atraumatic. No Flores signs noted. No raccoon eyes noted Eyes: PERRLA. EOMI. Conjunctiva and sclera normal. Eyelids normal. ENT: TM's Normal. Pharynx normal. Uvula midline. Moist mucous membranes. No trismus noted. No drooling noted. No muffled voice noted. Neck: Normal inspection. Neck supple. FROM. No adenopathy. Thyroid Normal. No meningeal signs. No neck mass noted. CVS: Normal heart rate and rhythm. Heart sound normal. No murmurs noted. Pulses normal throughout. Respiratory: No respiratory distress. Painless inspiration. Breath sounds normal. No wheezes/rales/rhonchi noted. Chest nontender. No accessory muscle usage noted or decreased air movement noted. Abdomen: Soft and nontender. Bowel sounds normal in all 4 quadrants. No distention noted. No organomegaly noted. No visible injury noted. Back: No CVA tenderness. Full range of motion noted. Skin: Skin warm and dry. Normal skin color. Normal skin turgor. No rashes/lesions/lacerations noted. Extremities: No lower extremity edema. Extremities exhibit normal range of motion. Extremities nontender. Neuro: Oriented X 3. Cranial nerve exam: II-XII are grossly intact No motor deficit. No sensory deficit. Reflexes normal. Course Course Course Narrative: Assessment and plan. 60-year-old female history of anxiety/COPD started to have chest pain after coughing. Chest x-ray//labs are unremarkable. HEART score is 4, no low risk for PE with a negative D-dimer. Will discharge with instruction to follow-up with PCP. MDM - Chest Pain Medical Records Data Attestation: I reviewed the patient's medical records. Lab Data Attestation: I reviewed the patient's lab results. Result diagrams: 06/25/21 10:39 06/25/21 10:39 Labs: Lab Results 06/25/21 06/25/21 06/25/21 Range/Units 10:39 10:39 10:39 WBC 7.0 (4.8-10.8) X10*3/uL RBC 5.18 (4.20-5.50) X10*6/uL Hgb 12.2 (12.0-16.0) g/dl Hct 39.9 (37.0-47.0) % MCV 77.0 L (80.0-98.0) fL MCH 23.6 L (27.0-33.0) pg MCHC 30.6 L (31.0-35.0) g/dl RDW 17.0 H (11.0-16.0) % Plt Count 213 (160-400) X10*3/uL MPV 8.7 L (9.4-12.3) fL Immature Gran % (Auto) 0.3 (0.0-0.4) % Neut % (Auto) 67.5 (45-73) % Lymph % (Auto) 21.4 (20-40) % [place]kin % (Auto) 8.6 (2-11) % Eos % (Auto) 1.3 (0-4) % Baso % (Auto) 0.9 (0-2) % Lymph # (Auto) 1.5 (1.2-4.9) X10*3/uL [place]kin # (Auto) 0.6 (0.1-1.2) X10*3/uL Eos # (Auto) 0.1 (0.0-0.4) X10*3/uL Baso # (Auto) 0.1 (0.0-0.2) X10*3/uL Abs Immat Gran (auto) 0.02 (0.00-0.03) X10*3/uL Absolute Neuts (auto) 4.7 (2.0-8.3) x10*3/uL Absolute Nucleated RBC 0.000 (0.0-0.012) X10*3/uL Nucleated RBC % (auto) 0.0 (0.0-0.2) /100WBC PT 10.9 (9.9-13.0) SEC INR 1.0 (0.9-1.1) APTT 37.4 (24.1-38.0) SEC D-Dimer High Sensitivty 163 NG/ML Sodium 140 (135-145) mmol/L Potassium 4.7 (3.3-5.1) mmol/L Chloride 105 (96-108) mmol/L Carbon Dioxide 27 (22-29) mmol/L Anion Gap 13 (12-20) BUN 10 (9-16) mg/dL Creatinine 0.77 (0.5-1.4) mg/dL Estim Creat Clear Calc 60.6 Estimated GFR > 60 Random Glucose 105 (60-115) mg/dL Calcium 9.7 (8.4-10.2) mg/dL Total Bilirubin 0.4 (0.0-1.0) mg/dL Direct Bilirubin 0.2 (0.0-0.5) mg/dL AST 17 (5-31) U/L ALT 10 (0-31) U/L Alkaline Phosphatase 68 (39-117) U/L Troponin I High Sens (<3.5-17.0) ng/L Total Protein 7.6 (6.5-8.0) g/dL Albumin 4.5 (3.5-5.0) g/dL 06/25/21 06/25/21 Range/Units 10:39 12:30 WBC (4.8-10.8) X10*3/uL RBC (4.20-5.50) X10*6/uL Hgb (12.0-16.0) g/dl Hct (37.0-47.0) % MCV (80.0-98.0) fL MCH (27.0-33.0) pg MCHC (31.0-35.0) g/dl RDW (11.0-16.0) % Plt Count (160-400) X10*3/uL MPV (9.4-12.3) fL Immature Gran % (Auto) (0.0-0.4) % Neut % (Auto) (45-73) % Lymph % (Auto) (20-40) % L[place]kin % (Auto) (2-11) % Eos % (Auto) (0-4) % Baso % (Auto) (0-2) % Lymph # (Auto) (1.2-4.9) X10*3/uL [place]kin # (Auto) (0.1-1.2) X10*3/uL Eos # (Auto) (0.0-0.4) X10*3/uL Baso # (Auto) (0.0-0.2) X10*3/uL Abs Immat Gran (auto) (0.00-0.03) X10*3/uL Absolute Neuts (auto) (2.0-8.3) x10*3/uL Absolute Nucleated RBC (0.0-0.012) X10*3/uL Nucleated RBC % (auto) (0.0-0.2) /100WBC PT (9.9-13.0) SEC INR (0.9-1.1) APTT (24.1-38.0) SEC D-Dimer High Sensitivty NG/ML Sodium (135-145) mmol/L Potassium (3.3-5.1) mmol/L Chloride (96-108) mmol/L Carbon Dioxide (22-29) mmol/L Anion Gap (12-20) BUN (9-16) mg/dL Creatinine (0.5-1.4) mg/dL Estim Creat Clear Calc Estimated GFR Random Glucose (60-115) mg/dL Calcium (8.4-10.2) mg/dL Total Bilirubin (0.0-1.0) mg/dL Direct Bilirubin (0.0-0.5) mg/dL AST (5-31) U/L ALT (0-31) U/L Alkaline Phosphatase (39-117) U/L Troponin I High Sens 5.2 5.5 (<3.5-17.0) ng/L Total Protein (6.5-8.0) g/dL Albumin (3.5-5.0) g/dL Imaging Data Chest x-ray: Attestation: I personally reviewed and interpreted this imaging study as follows: Radiologist's impression: No acute pathology ECG Data ECG #1: Attestation: I personally reviewed and interpreted this ECG as follows: Interpretation: Normal sinus rhythm at 87 beats per minute with sinus arrhythmia, normal intervals, left axis deviation, nonspecific ST-T changes. No significant from old EKG. Discharge Plan Discharge Clinical Impression: Anxiety, Chest wall muscle strain Patient Disposition: Home, Self-Care Instructions: Muscle Strain (ED) Prescriptions: No Action cholecalciferol (vitamin D3) 50 mcg (2,000 unit) capsule 50 mcg PO DAILY 90 Days Qty: 90 3RF Rx Instructions: 1 capsule Orally Once a day ibuprofen 600 mg tablet 600 mg PO Q8H PRN (Reason: pain) 30 Days Qty: 90 1RF Rx Instructions: take with food hydroxyzine HCl 50 mg tablet 50 mg PO BEDTIME Qty: 90 1RF escitalopram oxalate 20 mg tablet 20 mg PO DAILY 90 Days Qty: 90 1RF Spiriva with HandiHaler 18 mcg capsule, w/inhalation device 1 cap inhalation DAILY 30 Days Qty: 30 5RF Rx Instructions: puncture 1 cap using device; one dose = 2 inhalations simvastatin 40 mg tablet 40 mg PO BEDTIME Qty: 90 1RF pantoprazole 40 mg tablet,delayed release (DR/EC) 40 mg PO DAILY 90 Days Qty: 90 1RF aspirin [Ecotrin Low Strength] 81 mg tablet,delayed release (DR/EC) 81 mg PO DAILY Qty: 30 5RF metoclopramide HCl [Reglan] 5 mg tablet 5 mg PO .TIDAC 30 Days Qty: 90 3RF cyclobenzaprine 5 mg tablet 5 mg PO TID PRN (Reason: muscle spasm) 30 Days Qty: 90 1RF albuterol sulfate [Ventolin HFA] 90 mcg/actuation HFA aerosol inhaler 1 puff PO Q6H PRN (Reason: shortness of breath or wheezing) Qty: 18 3RF dicyclomine 10 mg capsule 10 mg PO QID Qty: 360 1RF lorazepam 1 mg tablet 1 mg PO BID PRN (Reason: anxiety) 28 Days Qty: 56 0RF fluticasone propionate 50 mcg/actuation spray,suspension 1 spray intranasal DAILY Qty: 16 5RF oxycodone 5 mg tablet 5 mg PO .1-2 times daily PRN (Reason: pain) 10 Days Qty: 20 0RF lisinopril 5 mg tablet 5 mg PO DAILY Qty: 30 5RF nicotine 21 mg/24 hr patch 24 hour 1 patch transdermal DAILY 7 Days Qty: 7 0RF nicotine 14 mg/24 hr patch 24 hour 1 patch transdermal DAILY 7 Days Qty: 7 0RF nicotine 7 mg/24 hr patch 24 hour 1 patch transdermal Q24H 28 Days Qty: 28 5RF sucralfate [Carafate] 1 gram tablet 2 g PO QNOON 30 Days Qty: 60 6RF nicotine 14 mg/24 hr patch 24 hour 1 patch transdermal DAILY 28 Days Qty: 28 3RF Rx Instructions: 14 mg patch Referrals: Sarthak Person MD [Primary Care Provider] - 2 days
[2021-06-25 12:39] LABS: D Dimer High Sensitivity 163 NG/ML
[2021-06-25 12:49] LABS: Alanine Aminotransferase 10 U/L (0-31); Albumin Level 4.5 g/dL (3.5-5.0); Alkaline Phosphatase 68 U/L (39-117); Aspartate Amino Transferase 17 U/L (5-31); Bilirubin Direct 0.2 mg/dL (0.0-0.5); Bilirubin Total 0.4 mg/dL (0.0-1.0); Total Protein 7.6 g/dL (6.5-8.0)
[2021-06-25 13:00] LABS: Troponin-I High Sensitivity 5.5 ng/L (<3.5-17.0)
[2021-06-25 13:17] VITALS: RESP 20
== END 2021-06-25 13:18 | disposition home or self-care (01) ==
PROVIDERS: Emergency Provider Emergency Medicine; PCP Internal Medicine
DX: F41.9 Anxiety disorder, unspecified (principal); S29.011A Strain of muscle and tendon of front wall of thorax, initial encounter; X50.9XXA Other and unspecified overexertion or strenuous movements or postures, initial encounter; F17.200 Nicotine dependence, unspecified, uncomplicated; I10 Essential (primary) hypertension; Y93.84 Activity, sleeping; Y92.013 Bedroom of single-family (private) house as the place of occurrence of the external cause; Y99.9 Unspecified external cause status
CPT/HCPCS: 36415; 71046; 80048; 80076; 84484; 85025; 85379; 85610; 85730; 93005; 99283

== ENCOUNTER 2021-07-03 12:40 | Outpatient (REF) | payer MEDICARE, MEDICAID, SELFPAY ==
--- NOTE | ~2021-07-03 | MM_ITS ---
EXAMINATION: MM SCREENING DIGITAL BREAST TOMOSYNTHESIS, BILATERAL CLINICAL INFORMATION: Screening. Asymptomatic. The lifetime risk of breast cancer based on the Tyrer-Cuzick Model is 6%. COMPARISON: Mammography: 06/18/2020, 06/13/2019, 09/26/2014 TECHNIQUE: Digital breast tomosynthesis is performed in both the craniocaudal and mediolateral oblique views along with computer-aided detection (CAD). Synthesized 2D images are generated from the tomosynthesis. FINDINGS: There are scattered areas of fibroglandular density (ACR BI-RADS breast composition Category b). There are no significant masses, abnormal calcifications, or other abnormalities. Parenchymal pattern is similar to prior studies. There is no developing density or architectural abnormality. The axilla and skin contours are unremarkable. No significant changes. MM/MM tomosynthesis screening BI IMPRESSION: No mammographic evidence of malignancy. ASSESSMENT: BI-RADS 1: Negative RECOMMENDATION: Routine annual mammography screening. This patient's information was entered into a reminder system with a target due date for their next mammogram.
== END 2021-07-03 12:41 | disposition home or self-care (01) ==
LOC: HO.MAMMO 12:40
PROVIDERS: Visit Provider Internal Medicine
DX: Z12.31 Encounter for screening mammogram for malignant neoplasm of breast (principal)
CPT/HCPCS: 77063; 77067

== ENCOUNTER → 2021-07-05 07:56 | Outpatient (REF) | payer MEDICARE, MEDICAID, SELFPAY ==
--- NOTE | 2021-07-05 08:05 | CA_ITS ---
Transthoracic Echocardiogram Patient (Last, First, Middle): Sarah Medina A Gender: Female Date of : 1960 Age: 60 Procedure Date: 07/05/2021 Procedure Type: Transthoracic Echocardiogram Location: OP Height: 157.48 cm Weight: 50.8 kg BSA: 1.49 m2 Heart Rate: bpm BP: 130 / 80 mmHg [employer] Supervisor: DAVID Referring MD: Michael Santos MD Symptoms: I34.0 - Nonrheumatic mitral (valve) insufficiency Study Quality: Fair ECG Rhythm: Sinus Conclusions: - The left ventricular systolic function is normal. The calculated ejection fraction is 64% by biplane method. - The mitral valve appears myxomatous. Difficult to state if prolapse or flail posterior leaflet due to sinus tachycardia and suboptimal images. Moderate, eccentric, anteriorly directed mitral regurgitation. Underestimation is possible. Findings Left Ventricle Normal left ventricular cavity size. The left ventricular systolic function is normal. The calculated ejection fraction is 64% by biplane method. There is no evidence of regional wall motion abnormalities. Diastolic function is indeterminate on the basis of available data. Focal hypertrophy of the basal septum. Right Ventricle Normal right ventricular cavity size and systolic function. Atria Both atria are normal in size. Aortic Valve There is a normal trileaflet aortic valve. There is no aortic valve stenosis. There is no aortic valve regurgitation. Mitral Valve The mitral valve appears myxomatous. There is no mitral valve stenosis. Difficult to state if prolapse or flail posterior leaflet due to sinus tachycardia and suboptimal images. Moderate, eccentric, anteriorly directed mitral regurgitation. Pulmonic Valve The pulmonic valve is likely normal. Tricuspid Valve There is trace tricuspid valve regurgitation. The pulmonary artery systolic pressure is normal. Great Vessels The asc aorta and aortic arch are normal in size. Venous The inferior vena cava is normal in size and collapses greater than 50% with inspiration. Pericardium/Pleural There is a trivial pericardial effusion. Prior Study Comparison No significant change compared to prior study dated: 09/04/2020. Measurements 2D Linear Measurements IVSd: 1.11 0.6-0.9/0.6-1.0 cm LVIDd: 4.14 3.9-5.3/4.2-5.9 cm LVIDd Index: 2.78 2.4-3.2/2.2-3.1 cm/m2 LVIDs: 3.05 2.0-3.6 cm LVPWd: 1.07 0.7-1.1 cm LA Diam: 3.70 2.7-3.8/3.0-4.0 cm LAIDs Index: 2.48 1.5-2.3 cm/m2 LV Mass: 188.74 67-162/88-224 g LV Mass Index: 126.67 43-95/49-115 g/m2 LVOT Diam: 2.10 3.0+(-)1.3 cm 2D Systolic Function EF 4C: 60.30 >55% EF 2C: 67.60 >55% EF BiP: 63.50 >55% Aortic Valve AoV Pk Leonel: 1.07 AoV Mn Leonel: 0.64 AoV VTI: 0.13 AoV Pk Grad: 5.00 Aov Mn Grad: 2.00 EDNA Cont.VTI: 2.42 LVOT LVOT Pk Leonel: 0.71 LVOT Mn Leonel: 0.47 LVOT VTI: 0.09 LVOT Pk Grad: 2.00 LVOT Mn Grad: 1.00 LVOT Diam: 2.10 LVOT Area: 3.46 Right Ventricle TAPSE (mm): 17.90 TVS' Leonel: 14.10 Tricuspid Valve TR Pk Leonel: 2.44 TR Pk Grad: 24.00 RA Press: 3.00 RVSP: 27.00 Great Vessels Aorta Sinus of Valsalva: 3.15 2.0-3.5 cm Ao Asc: 3.10 2.1-3.4 cm Ao Arch: 2.80 Updated in Other Vendor System with Status of Final Nawaf Eastman MD electronically signed on 07/07/2021 12:30:53 PM with status of Final
== END ==
LOC: HO.CARD 07:56
PROVIDERS: PCP Internal Medicine; Visit Provider Internal Medicine Cardiovascular Disease
DX: I34.0 Nonrheumatic mitral (valve) insufficiency (principal)
CPT/HCPCS: 93306

== ENCOUNTER 2021-07-05 10:56 | Emergency (ER) | payer MEDICARE, MEDICAID, SELFPAY ==
--- NOTE | ~2021-07-05 | CT_ITS ---
EXAMINATION: CT ABDOMEN AND PELVIS WITHOUT CONTRAST CLINICAL INFORMATION: Lower abdominal pain COMPARISON: Previous CT scans most recent October 2020 TECHNIQUE: Multidetector volumetric imaging was performed from the superior aspect of the liver through the pubic symphysis. Sagittal and coronal reformatted images were obtained on the technologist's workstation. This CT examination was performed using dose optimization techniques as appropriate, variously including the following: *Automated exposure control *Adjustment of mA and/or kV according to patient size (this includes techniques or standardized protocols for targeted exams where dose is matched to indication/reason for exam; i.e. extremities or head) *Use of iterative reconstruction technique DLP: 353 mGy-cm FINDINGS: LUNG BASES: The visualized lung bases are unremarkable. LIVER, GALLBLADDER, AND BILIARY TREE: The liver is normal in size, shape, and attenuation. No focal hepatic lesion or biliary ductal dilatation is present. The gallbladder is unremarkable with no evidence of radiopaque gallstones, gallbladder wall thickening, or obvious pericholecystic inflammatory changes. PANCREAS: Unremarkable. SPLEEN: Unremarkable. ADRENAL GLANDS: Unremarkable. KIDNEYS AND URETERS: There are small 1 mm calcifications in the lower pole of each kidney questionable for tiny stones. Kidneys are otherwise normal. BLADDER: Unremarkable. GASTROINTESTINAL TRACT: There may be postsurgical changes to the upper rectum or distal sigmoid colon with surgical clips seen in the pelvis.. Small and large bowel is otherwise unremarkable. The appendix is unremarkable. The stomach is unremarkable. ABDOMINAL WALL: Small umbilical and infraumbilical hernias containing fat. LYMPH NODES: Normal. VASCULAR: There is evidence of atherosclerotic disease. PELVIC VISCERA: Unremarkable. OSSEOUS STRUCTURES: There is an old L5 vertebral body compression fracture. There are degenerative changes of the spine. CT/CT abdomen pelvis wo con IMPRESSION: Question tiny bilateral renal stones. Postsurgical changes to the upper rectum or distal sigmoid colon. Small umbilical and infraumbilical hernias containing fat. Atherosclerotic disease. Fleischner guidelines were followed.
[2021-07-05 11:20] VITALS: BP 123/75; PULSE 115; RESP 18; TEMP 36.9; O2SAT 96; BMI 22.4
[2021-07-05 11:33] VITALS: BP 131/97; PULSE 131; RESP 26; TEMP 36.9; O2SAT 98
--- NOTE | 2021-07-05 11:36 | ED.NAVMDI ---
HPI - Nausea/Vomiting/Diarrhea General Chief complaint: Nausea/Vomiting/Diarrhea Stated complaint: N/V/D Time Seen by Provider: 07/05/21 11:36 Source: patient Mode of arrival: ambulatory Limitations: no limitations History of Present Illness HPI Narrative: patient with vomiting and diarrhea since yesterday morning. Denies fever. States that she is having a right abdominal pain that is new. Patient with prior history of rectal prolapse surgery, she still has her appendix. MD elicited complaint: nausea, vomiting and diarrhea Onset (ago): day(s) Associated nausea: Yes Associated abdominal pain: Yes Pain consistency: constant Severity: mild Quality: cramping Associated symptoms: loss of appetite and nausea/vomiting Related Data Previous Rx's Medication Instructions Recorded cholecalciferol (vitamin D3) 50 50 mcg PO DAILY 90 Days #90 cap 08/30/20 mcg (2,000 unit) capsule ibuprofen 600 mg tablet 600 mg PO Q8H PRN 30 Days #90 tab 09/11/20 escitalopram oxalate 20 mg tablet 20 mg PO DAILY 90 Days #90 tab 12/03/20 hydroxyzine HCl 50 mg tablet 50 mg PO BEDTIME #90 tab 12/03/20 tiotropium bromide 18 mcg capsule 1 cap INHALATION DAILY 30 Days #30 12/27/20 with inhalation device (Spiriva inh with HandiHaler) sucralfate 1 gram tablet (Carafate) 2 g PO QNOON 30 Days #60 tab 01/08/21 simvastatin 40 mg tablet 40 mg PO BEDTIME #90 tab 02/25/21 aspirin 81 mg tablet,delayed 81 mg PO DAILY #30 tab 03/20/21 release (Ecotrin Low Strength) metoclopramide HCl 5 mg tablet 5 mg PO .TIDAC 30 Days #90 tab 03/20/21 (Reglan) nicotine 14 mg/24 hr daily 1 patch TRANSDERMAL DAILY 28 Days 04/11/21 transdermal patch #28 ea lisinopril 5 mg tablet 5 mg PO DAILY #30 tab 04/19/21 nicotine 14 mg/24 hr daily 1 patch TRANSDERMAL DAILY 7 Days 04/19/21 transdermal patch #7 ea nicotine 21 mg/24 hr daily 1 patch TRANSDERMAL DAILY 7 Days 04/19/21 transdermal patch #7 ea nicotine 7 mg/24 hr daily 1 patch TRANSDERMAL Q24H 28 Days 04/19/21 transdermal patch #28 ea albuterol sulfate 90 mcg/actuation 1 puff PO Q6H PRN #18 g 05/01/21 aerosol inhaler (Ventolin HFA) cyclobenzaprine 5 mg tablet 5 mg PO TID PRN 30 Days #90 tab 05/01/21 dicyclomine 10 mg capsule 10 mg PO QID #360 cap 05/20/21 lorazepam 1 mg tablet 1 mg PO BID PRN 28 Days #56 tab 06/10/21 fluticasone propionate 50 1 spray INTRANASAL DAILY #16 ml 06/16/21 mcg/actuation nasal spray,suspension oxycodone 5 mg tablet 5 mg PO .1-2 times daily PRN 10 07/01/21 Days #20 tab pantoprazole 40 mg tablet,delayed 40 mg PO DAILY 90 Days #90 tab 07/01/21 release ondansetron 4 mg disintegrating 4 mg PO Q8H 4 Days #12 tab 07/05/21 tablet Allergies Allergy/AdvReac Type Severity Reaction Status Date / Time No Known Allergies Allergy Unknown unknown Verified 07/05/21 11:19 [NO KNOWN ALLERGIES] Review of Systems Constitutional: Constitutional: Reports no additional constitutional complaints Eyes: Eyes: Reports no additional eye complaints ENT: Denies dizziness Cardiovascular: Cardiovascular: Reports no additional cardiovascular complaints Respiratory: Respiratory: Reports as per HPI Gastrointestinal: Gastrointestinal: Reports nausea Genitourinary: Genitourinary: Reports no additional female genitourinary complaints Musculoskeletal: Musculoskeletal: Reports no additional musculoskeletal complaints Integumentary/Breasts: Skin/Breast: Denies rash Neurologic: Reports system reviewed and no additional complaints, except as documented, Denies dizziness and Denies Sensory deficit (Neuro) Psychiatric: Psychiatric: Denies anxiety PMFSH Past Medical History Medical History Allergic rhinitis Anxiety Benign essential hypertension Cervical spondylosis COPD (chronic obstructive pulmonary disease) Depression Early satiety 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 Gastritis GERD (gastroesophageal reflux disease) History of hepatitis C IV drug user Mitral regurgitation Mitral valve prolapse Osteopenia (~2011) Paresthesia of left leg Personal history of nicotine dependence Pulmonary nodule Pure hypercholesterolemia Rectal prolapse Smoker Vitamin D deficiency Surgical History History of colonoscopy History of hysteroscopy History of liver biopsy History of partial colectomy Family History Family History Father Internal bleeding Mother Medical history unknown Social History Social History Housing: House Alcohol intake: former Patient Tobacco Use Status: Current everyday Tobacco user Tobacco use type: Cigarette Cigarette Packs Per Day: 0.5 Cigarettes Per Day: 10 Years Smoked: 44 years (onset 15, 1/2-3/4ppd x 44yrs, 28pyh) Second Hand Smoke Exposure: Yes Substance Use Type: Crack/Cocaine Advance Directives: No Advance Directives Information Provided: No service: No Current occupational status: employed 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 [employer] Sexual orientation: Straight/Heterosexual Gender identity: Female Physical Exam Vital Signs: Vital Signs: Last Vital Signs Temp 98.5 F 07/05/21 11:33 Pulse 76 07/05/21 14:13 Resp 18 07/05/21 14:13 BP 110/63 07/05/21 14:13 Pulse Ox 98 07/05/21 14:13 BMI result Body Mass Index 22.4 Const: Other: female looking older than stated age Nutritional Appearance: average body habitus Orientation/consciousness: oriented to person and patient oriented x3 Limitations: no limitations HEENT: Head: Yes normal to inspection Ears: external ears normal General nose exam: Normal external nose present Mouth: Normal oral and palatal mucosa present and oropharynx normal Throat: Yes posterior oropharynx normal Eyes: General: appearance normal, both eyes and all related structures Neck: Other: supple Neck: Yes normal visual inspection Chest: Chest palpation & inspection: normal inspection of the chest Resp: Auscultation: clear to auscultation bilaterally Cardio: Jugular venous distension: no JVD Rate: regular rate Rhythm: regular rhythm Heart sounds: S1 normal heart sound present and S2 normal heart sound present GI: Other: old vertical subumbilical surgical scar Palpation (GI): Tenderness to palpation present (GI) (lower abdominal tenderness) and No hepatosplenomegaly present Auscultation: normal bowel sounds : General: Yes no CVA tenderness Back/Spine/Pelvis: Back: no CVA tenderness Skin: General skin exam: no rashes or lesions noted Neuro: General: oriented to person and patient oriented x3 Cranial nerves: Yes CN's II-XII intact bilaterally Motor exam (neuro): 5/5 motor strength present throughout Sensory Exam: No Sensory deficit (Neuro) Extrem: General: Yes normal to inspection Psych: Appearance: grossly normal Course Reevaluation(s) Reevaluation #1: patient with vomiting and diarrhea, labs and CT normal, patient able to tolerate PO will dc on zofran Time: 15:23 MDM - Nausea/Vomiting/Diarrhea Lab Data Result diagrams: 07/05/21 12:12 07/05/21 13:18 Labs: Lab Results 07/05/21 07/05/21 Range/Units 12:12 13:18 WBC 6.0 (4.8-10.8) X10*3/uL RBC 5.09 (4.20-5.50) X10*6/uL Hgb 11.7 L (12.0-16.0) g/dl Hct 37.8 (37.0-47.0) % MCV 74.3 L (80.0-98.0) fL MCH 23.0 L (27.0-33.0) pg MCHC 31.0 (31.0-35.0) g/dl RDW 16.9 H (11.0-16.0) % Plt Count 212 (160-400) X10*3/uL MPV 9.1 L (9.4-12.3) fL Immature Gran % (Auto) 0.3 (0.0-0.4) % Neut % (Auto) 64.9 (45-73) % Lymph % (Auto) 24.9 (20-40) % Brewster % (Auto) 8.5 (2-11) % Eos % (Auto) 0.7 (0-4) % Baso % (Auto) 0.7 (0-2) % Lymph # (Auto) 1.5 (1.2-4.9) X10*3/uL Brewster # (Auto) 0.5 (0.1-1.2) X10*3/uL Eos # (Auto) 0.0 (0.0-0.4) X10*3/uL Baso # (Auto) 0.0 (0.0-0.2) X10*3/uL Abs Immat Gran (auto) 0.02 (0.00-0.03) X10*3/uL Absolute Neuts (auto) 3.9 (2.0-8.3) x10*3/uL Absolute Nucleated RBC 0.000 (0.0-0.012) X10*3/uL Nucleated RBC % (auto) 0.0 (0.0-0.2) /100WBC Sodium 142 (135-145) mmol/L Potassium 4.2 (3.3-5.1) mmol/L Chloride 109 H (96-108) mmol/L Carbon Dioxide 25 (22-29) mmol/L Anion Gap 12 (12-20) BUN 13 (9-16) mg/dL Creatinine 0.72 (0.5-1.4) mg/dL Estim Creat Clear Calc 64.9 Estimated GFR > 60 Random Glucose 80 (60-115) mg/dL Calcium 8.8 D (8.4-10.2) mg/dL Total Bilirubin 0.3 (0.0-1.0) mg/dL Direct Bilirubin 0.2 (0.0-0.5) mg/dL AST 14 (5-31) U/L ALT 7 (0-31) U/L Alkaline Phosphatase 52 D (39-117) U/L Total Protein 6.3 L (6.5-8.0) g/dL Albumin 3.8 (3.5-5.0) g/dL Imaging Data CT scan - abdomen: Radiologist's impression: IMPRESSION: Question tiny bilateral renal stones. Postsurgical changes to the upper rectum or distal sigmoid colon. Small umbilical and infraumbilical hernias containing fat. Atherosclerotic disease. ? Fleischner guidelines were followe Discharge Plan Discharge Clinical Impression: Gastroenteritis Patient Disposition: Home, Self-Care Instructions: Gastroenteritis (ED) Prescriptions: New ondansetron 4 mg tablet,disintegrating 4 mg PO Q8H 4 Days Qty: 12 0RF No Action cholecalciferol (vitamin D3) 50 mcg (2,000 unit) capsule 50 mcg PO DAILY 90 Days Qty: 90 3RF Rx Instructions: 1 capsule Orally Once a day ibuprofen 600 mg tablet 600 mg PO Q8H PRN (Reason: pain) 30 Days Qty: 90 1RF Rx Instructions: take with food hydroxyzine HCl 50 mg tablet 50 mg PO BEDTIME Qty: 90 1RF escitalopram oxalate 20 mg tablet 20 mg PO DAILY 90 Days Qty: 90 1RF Spiriva with HandiHaler 18 mcg capsule, w/inhalation device 1 cap inhalation DAILY 30 Days Qty: 30 5RF Rx Instructions: puncture 1 cap using device; one dose = 2 inhalations simvastatin 40 mg tablet 40 mg PO BEDTIME Qty: 90 1RF aspirin [Ecotrin Low Strength] 81 mg tablet,delayed release (DR/EC) 81 mg PO DAILY Qty: 30 5RF metoclopramide HCl [Reglan] 5 mg tablet 5 mg PO .TIDAC 30 Days Qty: 90 3RF cyclobenzaprine 5 mg tablet 5 mg PO TID PRN (Reason: muscle spasm) 30 Days Qty: 90 1RF albuterol sulfate [Ventolin HFA] 90 mcg/actuation HFA aerosol inhaler 1 puff PO Q6H PRN (Reason: shortness of breath or wheezing) Qty: 18 3RF dicyclomine 10 mg capsule 10 mg PO QID Qty: 360 1RF lorazepam 1 mg tablet 1 mg PO BID PRN (Reason: anxiety) 28 Days Qty: 56 0RF fluticasone propionate 50 mcg/actuation spray,suspension 1 spray intranasal DAILY Qty: 16 5RF pantoprazole 40 mg tablet,delayed release (DR/EC) 40 mg PO DAILY 90 Days Qty: 90 1RF oxycodone 5 mg tablet 5 mg PO .1-2 times daily PRN (Reason: pain) 10 Days Qty: 20 0RF lisinopril 5 mg tablet 5 mg PO DAILY Qty: 30 5RF nicotine 21 mg/24 hr patch 24 hour 1 patch transdermal DAILY 7 Days Qty: 7 0RF nicotine 14 mg/24 hr patch 24 hour 1 patch transdermal DAILY 7 Days Qty: 7 0RF nicotine 7 mg/24 hr patch 24 hour 1 patch transdermal Q24H 28 Days Qty: 28 5RF sucralfate [Carafate] 1 gram tablet 2 g PO QNOON 30 Days Qty: 60 6RF nicotine 14 mg/24 hr patch 24 hour 1 patch transdermal DAILY 28 Days Qty: 28 3RF Rx Instructions: 14 mg patch
[2021-07-05] MEDS: 0.9 % Sodium Chloride 1,000 ML 999 ML IVCONT ×2 (12:14→15:00)
[2021-07-05] MEDS: ondansetron HCL 4 MG/2 ML VIAL IVPUSH (12:15)
[2021-07-05 12:19] LABS: MANUAL DIFF FLAG NO
[2021-07-05 12:30] LABS: Basophils Percent Auto 0.7 % (0-2); Eosinophils Percent Auto 0.7 % (0-4); Hematocrit 37.8 % (37.0-47.0); Hemoglobin 11.7 g/dl (12.0-16.0); Imm Gran Abs Auto 0.02 X10*3/uL (0.00-0.03); Imm Gran Pct Auto 0.3 % (0.0-0.4); Lymphocytes Absolute Auto 1.5 X10*3/uL (1.2-4.9); Lymphocytes Percent Auto 24.9 % (20-40); Mean Corpuscular Volume 74.3 fL (80.0-98.0); Mean Platelet Volume 9.1 fL (9.4-12.3); Monocytes Absolute Auto 0.5 X10*3/uL (0.1-1.2); Monocytes Percent Auto 8.5 % (2-11); Neutrophils Absolute Auto 3.9 x10*3/uL (2.0-8.3); Neutrophils Percent Auto 64.9 % (45-73); Platelet Count 212 X10*3/uL (160-400); Red Blood Count 5.09 X10*6/uL (4.20-5.50); Red Cell Distribution Width 16.9 % (11.0-16.0)
[2021-07-05 13:42] LABS: Alanine Aminotransferase 7 U/L (0-31); Albumin Level 3.8 g/dL (3.5-5.0); Alkaline Phosphatase 52 U/L (39-117); Anion Gap 12 (12-20); Aspartate Amino Transferase 14 U/L (5-31); Bilirubin Direct 0.2 mg/dL (0.0-0.5); Bilirubin Total 0.3 mg/dL (0.0-1.0); Blood Urea Nitrogen 13 mg/dL (9-16); Calcium 8.8 mg/dL (8.4-10.2); Carbon Dioxide 25 mmol/L (22-29); Chloride 109 mmol/L (96-108); Creatinine Clr Calc Pharmacy 64.9; Estimated Glomerular Filt Rate > 60; Glucose Random 80 mg/dL (60-115); Potassium 4.2 mmol/L (3.3-5.1); Sodium 142 mmol/L (135-145); Total Protein 6.3 g/dL (6.5-8.0)
[2021-07-05 14:08] VITALS: BP 110/63; PULSE 68; RESP 17; O2SAT 95
[2021-07-05 14:13] VITALS: BP 110/63; PULSE 76; RESP 18; O2SAT 98
--- NOTE | 2021-07-05 16:34 | PC.NURSE ---
PT AWAKE, ALERT AND ORIENTED X 3. SKIN PINK WARM AND DRY, RESP UNLABORED. DENIES N/V. NO C/O PAIN PRESENTLY. PO CHALLENGE OFFERED. UPDATED PATIENT ON RESULTS AND DISPO. PT AWARE AND AGREEABLE TO DC HOME. IV REMOVED.
== END 2021-07-05 16:37 | disposition home or self-care (01) ==
PROVIDERS: Emergency Provider Emergency Medicine; PCP Internal Medicine
DX: K52.9 Noninfective gastroenteritis and colitis, unspecified (principal); R11.2 Nausea with vomiting, unspecified; I10 Essential (primary) hypertension; E78.00 Pure hypercholesterolemia, unspecified; F41.9 Anxiety disorder, unspecified; F17.200 Nicotine dependence, unspecified, uncomplicated; Z79.02 Long term (current) use of antithrombotics/antiplatelets; Z79.82 Long term (current) use of aspirin; Z79.899 Other long term (current) drug therapy
CPT/HCPCS: 36415; 74176; 80048; 80076; 85025; 96361; 96374; 99283; 99284; J2405

== ENCOUNTER → 2021-07-16 08:49 | Outpatient (BNVA) | payer MEDICARE, MEDICAID, SELFPAY | PROVIDERS: PCP Internal Medicine; Referring Provider Internal Medicine; Visit Provider Internal Medicine Cardiovascular Disease | DX: I34.0 Nonrheumatic mitral (valve) insufficiency (principal); I10 Essential (primary) hypertension; Z79.899 Other long term (current) drug therapy | CPT/HCPCS: 99212 ==

== ENCOUNTER 2021-07-17 09:35 | Outpatient (REF) | payer MEDICARE, MEDICAID, SELFPAY ==
[2021-07-17 10:10] LABS: MANUAL DIFF FLAG NO
[2021-07-17 10:44] LABS: Basophils Percent Auto 0.5 % (0-2); Eosinophils Absolute Auto 0.1 X10*3/uL (0.0-0.4); Eosinophils Percent Auto 2.5 % (0-4); Hematocrit 35.8 % (37.0-47.0); Hemoglobin 10.7 g/dl (12.0-16.0); Imm Gran Abs Auto 0.02 X10*3/uL (0.00-0.03); Imm Gran Pct Auto 0.4 % (0.0-0.4); Lymphocytes Absolute Auto 1.9 X10*3/uL (1.2-4.9); Lymphocytes Percent Auto 33.3 % (20-40); Mean Corpuscular HGB Conc 29.9 g/dl (31.0-35.0); Mean Corpuscular Hemoglobin 23.1 pg (27.0-33.0); Mean Corpuscular Volume 77.3 fL (80.0-98.0); Mean Platelet Volume 9.1 fL (9.4-12.3); Monocytes Absolute Auto 0.6 X10*3/uL (0.1-1.2); Monocytes Percent Auto 10.9 % (2-11); Neutrophils Percent Auto 52.4 % (45-73); Platelet Count 231 X10*3/uL (160-400); Red Blood Count 4.63 X10*6/uL (4.20-5.50); White Blood Count 5.7 X10*3/uL (4.8-10.8)
[2021-07-17 11:13] LABS: Alanine Aminotransferase 6 U/L (0-31); Albumin Level 4.1 g/dL (3.5-5.0); Alkaline Phosphatase 68 U/L (39-117); Anion Gap 13 (12-20); Aspartate Amino Transferase 16 U/L (5-31); Bilirubin Total 0.4 mg/dL (0.0-1.0); Blood Urea Nitrogen 13 mg/dL (9-16); Calcium 9.2 mg/dL (8.4-10.2); Carbon Dioxide 26 mmol/L (22-29); Chloride 107 mmol/L (96-108); Cholesterol 191 mg/dL; Estimated Glomerular Filt Rate > 60; Glucose Fasting 82 mg/dL (60-99); HDL Cholesterol 49 mg/dL; LDL Cholesterol Calculated 127 mg/dl; Potassium 4.4 mmol/L (3.3-5.1); Sodium 142 mmol/L (135-145); Triglycerides 78 mg/dL
[2021-07-17 11:35] LABS: TSH reflex Free T4 2.93 uIU/mL (0.32-4.0); Vitamin D 25-OH Total 8.5 ng/mL (>30)
== END 2021-07-17 09:36 | disposition home or self-care (01) ==
LOC: HO.LAB 09:35
PROVIDERS: PCP Internal Medicine; Visit Provider Internal Medicine
DX: E55.9 Vitamin D deficiency, unspecified (principal); E78.00 Pure hypercholesterolemia, unspecified; I10 Essential (primary) hypertension
CPT/HCPCS: 36415; 80053; 80061; 82306; 84443; 85025

== ENCOUNTER → 2021-10-14 09:11 | Outpatient (BNVA) | payer MEDICARE, MEDICAID, SELFPAY | PROVIDERS: PCP Internal Medicine; Visit Provider Internal Medicine | DX: J43.9 Emphysema, unspecified (principal); R91.1 Solitary pulmonary nodule; F17.210 Nicotine dependence, cigarettes, uncomplicated | CPT/HCPCS: 99212 ==

== ENCOUNTER 2021-12-11 10:14 | Emergency (ER) | payer MEDICARE, MEDICAID, SELFPAY ==
--- NOTE | ~2021-12-11 | XR_ITS ---
EXAMINATION: XR CHEST CLINICAL INFORMATION: Chest pain. COPD. COMPARISON: 06/25/2021 TECHNIQUE: Frontal view of the chest was obtained. FINDINGS: The lungs are well expanded. There is no focal consolidation, edema, or effusion. No pneumothorax. Linear left basilar atelectasis. The cardiomediastinal silhouette is within normal limits of size, with a calcified aorta. No acute osseous abnormality. XR/XR chest 1V IMPRESSION: Unremarkable examination.
[2021-12-11 11:04] VITALS: BP 164/88; PULSE 115; O2SAT 100; BMI 20.5
[2021-12-11 11:12] VITALS: BP 171/84; PULSE 82; RESP 18; O2SAT 95
--- NOTE | 2021-12-11 11:21 | ECG_ITS ---
Test Reason : SOB Blood Pressure : / mmHG Vent. Rate : 077 BPM Atrial Rate : 077 BPM P-R Int : 196 ms QRS Dur : 100 ms QT Int : 430 ms P-R-T Axes : 071 -48 083 degrees QTc Int : 486 ms Sinus rhythm with marked sinus arrhythmia Left axis deviation Abnormal ECG When compared with ECG of 25-JUN-2021 08:55, QRS axis Shifted left ST no longer depressed in Anterior leads T wave inversion no longer evident in Lateral leads Referred By: Nicole Go Electronically Signed By:URIEL JONES
--- NOTE | 2021-12-11 11:22 | ED_ITS ---
HPI - SOB/Dyspnea General Chief Complaint: Dyspnea Stated Complaint: DIFF BREATHING X'S DAYS,WHEEZE, PER EMS Time Seen by Provider: 12/11/21 11:04 Source: patient and EMS Mode of arrival: EMS Limitations: no limitations History of Present Illness HPI Narrative: Patient comes to the emergency room complaining of shortness of breath for 3 days. Patient is known to have COPD, she is not oxygen dependent. Patient s tates she has also bilateral chest pain which has been present for couple of days, seems to get worse with coughing. Patient states she has been coughing a bit more than usual. Patient called EMS, they gave her 125 mg of Solu-Medrol and a DuoNeb. On arrival to the emergency room, patient speaking in full sentences, oxygen saturation 97% on room air. Patient complaining of chills, no fever to her knowledge. Patient states she tested herself for COVID this morning, it was negative. Related Data Previous Rx's Medication Instructions Recorded sucralfate 1 gram tablet (Carafate) 2 g PO QNOON 30 days #60 tabs 01/08/21 aspirin 81 mg tablet,delayed 81 mg PO DAILY #30 tabs 03/20/21 release (Ecotrin Low Strength) metoclopramide HCl 5 mg tablet 5 mg PO .TIDAC 30 days #90 tabs 03/20/21 (Reglan) nicotine 14 mg/24 hr daily 1 patch transdermal DAILY 28 days 04/11/21 transdermal patch #28 ea nicotine 14 mg/24 hr daily 1 patch transdermal DAILY 7 days 04/19/21 transdermal patch #7 ea nicotine 21 mg/24 hr daily 1 patch transdermal DAILY 7 days 04/19/21 transdermal patch #7 ea nicotine 7 mg/24 hr daily 1 patch transdermal Q24H 28 days 04/19/21 transdermal patch #28 ea albuterol sulfate 90 mcg/actuation 1 puff PO Q6H PRN shortness of 05/01/21 aerosol inhaler (Ventolin HFA) breath or wheezing #18 grams cyclobenzaprine 5 mg tablet 5 mg PO TID PRN muscle spasm 30 05/01/21 days #90 tabs pantoprazole 40 mg tablet,delayed 40 mg PO DAILY 90 days #90 tabs 07/01/21 release ondansetron 4 mg disintegrating 4 mg PO Q8H 4 days #12 tabs 07/05/21 tablet cholecalciferol (vitamin D3) 50 50 mcg PO DAILY 90 days #90 caps 07/18/21 mcg (2,000 unit) capsule fluticasone propionate 50 1 spray intranasal DAILY #16 mL 07/29/21 mcg/actuation nasal spray,suspension tiotropium bromide 18 mcg capsule 1 cap inhalation DAILY 30 days #30 08/26/21 with inhalation device (Spiriva inhalations with HandiHaler) ibuprofen 600 mg tablet 600 mg PO Q8H PRN pain 30 days #90 09/27/21 tabs lorazepam 1 mg tablet 1 mg PO BID PRN anxiety 28 days 10/14/21 #56 tabs nicotine 14 mg/24 hr daily 1 patch transdermal DAILY smoking 10/14/21 transdermal patch 28 days #14 ea dicyclomine 10 mg capsule 10 mg PO QID #360 caps 10/15/21 simvastatin 40 mg tablet 40 mg PO BEDTIME #30 tabs 11/10/21 lisinopril 10 mg tablet 10 mg PO DAILY #30 tabs 11/25/21 hydroxyzine HCl 50 mg tablet 50 mg PO BEDTIME #90 tabs 12/04/21 escitalopram oxalate 20 mg tablet 20 mg PO DAILY 90 days #90 tabs 12/05/21 oxycodone 5 mg tablet 5 mg PO .1-2 times daily PRN pain 12/06/21 10 days #20 tabs azithromycin 250 mg tablet See Rx Instructions PO .COMPLEX #6 12/11/21 tabs prednisone 50 mg tablet 50 mg PO DAILY #5 tabs 12/11/21 Allergies Allergy/AdvReac Type Severity Reaction Status Date / Time No Known Allergies Allergy Unknown unknown Verified 10/14/21 11:39 [NO KNOWN ALLERGIES] Review of Systems Review of Systems: Constitutional : No Weight loss, No Fever, No Chills, No Night Sweats, No Fatigue, No Malaise ENT/Mouth : No Hearing loss, No Ear Pain, No Nasal Congestion, No Sinus Pain, No Hoarseness, No sore throat, No Rhinorrhea, No Swallowing Difficulty Eyes: No Eye Pain, No Swelling, No Redness, No Foreign Body, No Discharge, No Vision Changes Cardiovascular : Complaining of bilateral chest pain, from the back, worse with coughing. No Orthopnea, No Edema, No Palpitations Respiratory : Complaining of cough, wheezing, chronic shortness of breath with exertion Gastrointestinal : No Nausea, No Vomiting, No Diarrhea, No Constipation, No abdominal Pain, No Hematochezia, No Melena Genitourinary : no irregular bleeding, No Dysuria, No Urinary Frequency, No Hematuria, No Urinary Incontinence, No Urgency, No Flank Pain, No Urinary Flow Changes, No Hesitancy Musculoskeletal : No joint pain, No Myalgias, No Joint Swelling Skin : No Skin Lesions, No rash Neuro : No Weakness, No Numbness, No Paresthesias, No Loss of Consciousness, No Dizziness, No Headache Psych : No Anxiety/Panic, No Depression, No SI/HI/AH/VH, No Social Issues, Heme/Lymph: No Bruising, No Bleeding,No Lymphadenopathy Endocrine : No Polyuria, No Polydipsia, No Temperature Intolerance [facility] Past Medical History Medical History Allergic rhinitis Anxiety Benign essential hypertension Cervical spondylosis COPD (chronic obstructive pulmonary disease) Depression Early satiety 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 Gastritis GERD (gastroesophageal reflux disease) History of hepatitis C IV drug user Mitral regurgitation Mitral valve prolapse Osteopenia (~2011) Paresthesia of left leg Personal history of nicotine dependence Pulmonary nodule Pure hypercholesterolemia Rectal prolapse Smoker Vitamin D deficiency Surgical History History of colonoscopy History of hysteroscopy History of liver biopsy History of partial colectomy Family History Family History Father Internal bleeding Mother Medical history unknown Social History Social History (Updated 10/14/21 @ 12:52 by Sarthak Person MD) Housing: House Alcohol intake: former Patient Tobacco Use Status: Current everyday Tobacco user Tobacco use type: Cigarette Cigarette Packs Per Day: 0.5 Cigarettes Per Day: 10 Years Smoked: 44 years (onset 15, 1/2-3/4ppd x 44yrs, 28pyh) Second Hand Smoke Exposure: Yes Substance Use Type: Crack/Cocaine Advance Directives: No Advance Directives Information Provided: Yes service: No Current occupational status: unemployed Sexual orientation: Straight/Heterosexual Gender identity: Female Cognitive needs: No Hearing needs: No Vision needs: Yes Physical Exam Vital Signs: Vital Signs: Last Vital Signs Pulse 82 12/11/21 11:12 Resp 18 12/11/21 11:12 BP 171/84 H 12/11/21 11:12 Pulse Ox 95 12/11/21 11:12 O2 Del Method 12/11/21 11:12 BMI result Body Mass Index 20.5 Const: Other: Appearance: Alert. Oriented X3. No acute distress. Eyes: Pupils equal, round and reactive to light. ENT: Pharynx normal. Neck: Normal inspection. Neck supple. No lymph nodes noted. No crepitus CVS: Normal heart rate and rhythm. Pulses normal. Normal S1 and S2 Respiratory: No respiratory distress. Breath sounds normal. No Wheezing. No rales Abdomen: Soft and nontender. No rigidity. No distention. Skin: Skin warm and dry. Normal skin color. Normal skin turgor. Extremities: No lower extremity edema. No Lacerations. No Rash Neuro: Oriented X 3. No motor deficit. No sensory deficit. Moving all extremities. No slurred speech. CN 2 through 12 grossly intact Psych: calm, cooperative, anxious Course Course Course Narrative: Patient just arrived to the emergency room, patient is not wheezing, oxygen saturation 97% on room air, speaking in full sentences. All the patient's labs and imaging are pending. Patient already received from EMS 125 mg of Solu-Medrol and a DuoNeb. Patient complain of a mild headache, requesting ibuprofen. Patient remained saturating 98% on room air. Chest x-ray does not show any acute abnormalities, white blood cell count within normal limits, lactic acid 1.6. Sepsis not suspected. Patient ready for discharge. Given patient's comorbidities, patient will benefit from p.o. antibiotics. Patient has been walking up to the bathroom, no oxygen desaturation MDM - SOB/Dyspnea Lab Data Result diagrams: 12/11/21 12:27 12/11/21 12:27 Labs: Lab Results 12/11/21 12/11/21 12/11/21 Range/Units 12:27 12:27 12:27 WBC 7.4 (4.8-10.8) X10*3/uL RBC 5.14 (4.20-5.50) X10*6/uL Hgb 11.7 L (12.0-16.0) g/dl Hct 38.8 (37.0-47.0) % MCV 75.5 L (80.0-98.0) fL MCH 22.8 L (27.0-33.0) pg MCHC 30.2 L (31.0-35.0) g/dl RDW 18.6 H (11.0-16.0) % Plt Count 247 (160-400) X10*3/uL MPV 8.6 L (9.4-12.3) fL Immature Gran % (Auto) 0.5 H (0.0-0.4) % Neut % (Auto) 89.1 H (45-73) % Lymph % (Auto) 7.5 L (20-40) % Bland % (Auto) 1.8 L (2-11) % Eos % (Auto) 0.3 (0-4) % Baso % (Auto) 0.8 (0-2) % Lymph # (Auto) 0.6 L (1.2-4.9) X10*3/uL Bland # (Auto) 0.1 (0.1-1.2) X10*3/uL Eos # (Auto) 0.0 (0.0-0.4) X10*3/uL Baso # (Auto) 0.1 (0.0-0.2) X10*3/uL Abs Immat Gran (auto) 0.04 H (0.00-0.03) X10*3/uL Absolute Neuts (auto) 6.6 (2.0-8.3) x10*3/uL Absolute Nucleated RBC 0.000 (0.0-0.012) X10*3/uL Nucleated RBC % (auto) 0.0 (0.0-0.2) /100WBC PT 11.2 (10.0-13.1) SEC INR 1.0 (0.9-1.1) Sodium 142 (135-145) mmol/L Potassium 3.7 (3.3-5.1) mmol/L Chloride 105 (96-108) mmol/L Carbon Dioxide 23 (22-29) mmol/L Anion Gap 18 (12-20) BUN 11 (9-16) mg/dL Creatinine 0.72 (0.5-1.4) mg/dL Estim Creat Clear Calc 64.0 Estimated GFR > 60 Random Glucose 111 (60-115) mg/dL Lactic Acid (0.5-2.0) mmol/L Calcium 9.3 (8.4-10.2) mg/dL Magnesium 2.0 (1.6-2.6) mg/dL Total Bilirubin 0.2 (0.0-1.0) mg/dL Direct Bilirubin 0.2 (0.0-0.5) mg/dL AST 16 (5-31) U/L ALT < 6 (0-31) U/L Alkaline Phosphatase 63 (39-117) U/L Troponin I High Sens (<3.5-17.0) ng/L B-Natriuretic Peptide (<100) pg/mL Total Protein 7.7 (6.5-8.0) g/dL Albumin 4.6 (3.5-5.0) g/dL COVID-19 ([facility]) (Negative) COVID-19 Clin Com 12/11/21 12/11/21 12/11/21 Range/Units 12:27 12:27 12:27 WBC (4.8-10.8) X10*3/uL RBC (4.20-5.50) X10*6/uL Hgb (12.0-16.0) g/dl Hct (37.0-47.0) % MCV (80.0-98.0) fL MCH (27.0-33.0) pg MCHC (31.0-35.0) g/dl RDW (11.0-16.0) % Plt Count (160-400) X10*3/uL MPV (9.4-12.3) fL Immature Gran % (Auto) (0.0-0.4) % Neut % (Auto) (45-73) % Lymph % (Auto) (20-40) % Bland % (Auto) (2-11) % Eos % (Auto) (0-4) % Baso % (Auto) (0-2) % Lymph # (Auto) (1.2-4.9) X10*3/uL Bland # (Auto) (0.1-1.2) X10*3/uL Eos # (Auto) (0.0-0.4) X10*3/uL Baso # (Auto) (0.0-0.2) X10*3/uL Abs Immat Gran (auto) (0.00-0.03) X10*3/uL Absolute Neuts (auto) (2.0-8.3) x10*3/uL Absolute Nucleated RBC (0.0-0.012) X10*3/uL Nucleated RBC % (auto) (0.0-0.2) /100WBC PT (10.0-13.1) SEC INR (0.9-1.1) Sodium (135-145) mmol/L Potassium (3.3-5.1) mmol/L Chloride (96-108) mmol/L Carbon Dioxide (22-29) mmol/L Anion Gap (12-20) BUN (9-16) mg/dL Creatinine (0.5-1.4) mg/dL Estim Creat Clear Calc Estimated GFR Random Glucose (60-115) mg/dL Lactic Acid 1.6 (0.5-2.0) mmol/L Calcium (8.4-10.2) mg/dL Magnesium (1.6-2.6) mg/dL Total Bilirubin (0.0-1.0) mg/dL Direct Bilirubin (0.0-0.5) mg/dL AST (5-31) U/L ALT (0-31) U/L Alkaline Phosphatase (39-117) U/L Troponin I High Sens < 3.5 (<3.5-17.0) ng/L B-Natriuretic Peptide 40 (<100) pg/mL Total Protein (6.5-8.0) g/dL Albumin (3.5-5.0) g/dL COVID-19 ([facility]) Negative (Negative) COVID-19 Clin Com See Note Imaging Data Chest x-ray: Radiologist's impression: [address] [address] XRay Report Signed Patient: Sarah Medina MR#: [id number] : 1960 Acct:[id number] Age/Sex: 61 / F ADM Date: 12/11/21 Loc: .ED Attending Dr: Ordering Physician: Nicole Go MD Date of Service: 12/11/21 Procedure(s): XR chest 1V Accession Number(s): [id number] cc: Nicole Go MD~ EXAMINATION: XR CHEST CLINICAL INFORMATION: Chest pain. COPD. COMPARISON: 06/25/2021 TECHNIQUE: Frontal view of the chest was obtained. FINDINGS: The lungs are well expanded. There is no focal consolidation, edema, or effusion. No pneumothorax. Linear left basilar atelectasis. The cardiomediastinal silhouette is within normal limits of size, with a calcified aorta. No acute osseous abnormality. XR/XR chest 1V IMPRESSION: Unremarkable examination. Discharge Plan Discharge Clinical Impression: Chronic obstructive pulmonary disease Patient Disposition: Home, Self-Care Instructions: COPD (Chronic Obstructive Pulmonary Disease) (ED) Additional Instructions: Please follow-up with your primary care physician tomorrow. If you have any worsening or new symptoms, please return to the emergency room or call 911 Prescriptions: New azithromycin 250 mg tablet See Rx Instructions .ROUTE .COMPLEX Qty: 6 0RF Rx Instructions: For 250 mg dose pack: take 500 mg today (day 1), then 250 mg for 4 days (days 2-5) prednisone 50 mg tablet 50 mg PO DAILY Qty: 5 0RF No Action aspirin [Ecotrin Low Strength] 81 mg tablet,delayed release (DR/EC) 81 mg PO DAILY Qty: 30 5RF metoclopramide HCl [Reglan] 5 mg tablet 5 mg PO .TIDAC 30 Days Qty: 90 3RF cyclobenzaprine 5 mg tablet 5 mg PO TID PRN (Reason: muscle spasm) 30 Days Qty: 90 1RF albuterol sulfate [Ventolin HFA] 90 mcg/actuation HFA aerosol inhaler 1 puff PO Q6H PRN (Reason: shortness of breath or wheezing) Qty: 18 3RF pantoprazole 40 mg tablet,delayed release (DR/EC) 40 mg PO DAILY 90 Days Qty: 90 1RF fluticasone propionate 50 mcg/actuation spray,suspension 1 spray intranasal DAILY Qty: 16 5RF Spiriva with HandiHaler 18 mcg capsule, w/inhalation device 1 cap inhalation DAILY 30 Days Qty: 30 5RF Rx Instructions: puncture 1 cap using device; one dose = 2 inhalations ibuprofen 600 mg tablet 600 mg PO Q8H PRN (Reason: pain) 30 Days Qty: 90 1RF Rx Instructions: take with food dicyclomine 10 mg capsule 10 mg PO QID Qty: 360 0RF simvastatin 40 mg tablet 40 mg PO BEDTIME Qty: 30 1RF lisinopril 10 mg tablet 10 mg PO DAILY Qty: 30 5RF hydroxyzine HCl 50 mg tablet 50 mg PO BEDTIME Qty: 90 1RF escitalopram oxalate 20 mg tablet 20 mg PO DAILY 90 Days Qty: 90 1RF oxycodone 5 mg tablet 5 mg PO .1-2 times daily PRN (Reason: pain) 10 Days Qty: 20 0RF ondansetron 4 mg tablet,disintegrating 4 mg PO Q8H 4 Days Qty: 12 0RF lorazepam 1 mg tablet 1 mg PO BID PRN (Reason: anxiety) 28 Days Qty: 56 1RF nicotine 21 mg/24 hr patch 24 hour 1 patch transdermal DAILY 7 Days Qty: 7 0RF nicotine 14 mg/24 hr patch 24 hour 1 patch transdermal DAILY 7 Days Qty: 7 0RF nicotine 7 mg/24 hr patch 24 hour 1 patch transdermal Q24H 28 Days Qty: 28 5RF cholecalciferol (vitamin D3) 50 mcg (2,000 unit) capsule 50 mcg PO DAILY 90 Days Qty: 90 3RF Rx Instructions: 1 capsule Orally Once a day sucralfate [Carafate] 1 gram tablet 2 g PO QNOON 30 Days Qty: 60 6RF nicotine 14 mg/24 hr patch 24 hour 1 patch transdermal DAILY 28 Days Qty: 28 3RF Rx Instructions: 14 mg patch nicotine 14 mg/24 hr patch 24 hour 1 patch transdermal DAILY MDD 1 28 Days Qty: 14 3RF
[2021-12-11 12:34] LABS: MANUAL DIFF FLAG NO
[2021-12-11 12:41] LABS: Basophils Absolute Auto 0.1 X10*3/uL (0.0-0.2); Basophils Percent Auto 0.8 % (0-2); Eosinophils Percent Auto 0.3 % (0-4); Hematocrit 38.8 % (37.0-47.0); Hemoglobin 11.7 g/dl (12.0-16.0); Imm Gran Abs Auto 0.04 X10*3/uL (0.00-0.03); Imm Gran Pct Auto 0.5 % (0.0-0.4); Lymphocytes Absolute Auto 0.6 X10*3/uL (1.2-4.9); Lymphocytes Percent Auto 7.5 % (20-40); Mean Corpuscular HGB Conc 30.2 g/dl (31.0-35.0); Mean Corpuscular Hemoglobin 22.8 pg (27.0-33.0); Mean Corpuscular Volume 75.5 fL (80.0-98.0); Mean Platelet Volume 8.6 fL (9.4-12.3); Monocytes Absolute Auto 0.1 X10*3/uL (0.1-1.2); Monocytes Percent Auto 1.8 % (2-11); Neutrophils Absolute Auto 6.6 x10*3/uL (2.0-8.3); Neutrophils Percent Auto 89.1 % (45-73); Platelet Count 247 X10*3/uL (160-400); Red Blood Count 5.14 X10*6/uL (4.20-5.50); Red Cell Distribution Width 18.6 % (11.0-16.0); White Blood Count 7.4 X10*3/uL (4.8-10.8)
[2021-12-11 12:44] LABS: Prothrombin Time 11.2 SEC (10.0-13.1)
[2021-12-11 12:53] LABS: Lactic Acid 1.6 mmol/L (0.5-2.0)
[2021-12-11 12:57] LABS: IDNOW Serial# 9DD0AD1C
[2021-12-11 12:58] LABS: COVID-19 Test Negative (Negative)
[2021-12-11 13:00] LABS: Alanine Aminotransferase < 6 U/L (0-31); Albumin Level 4.6 g/dL (3.5-5.0); Alkaline Phosphatase 63 U/L (39-117); Anion Gap 18 (12-20); Aspartate Amino Transferase 16 U/L (5-31); Bilirubin Direct 0.2 mg/dL (0.0-0.5); Bilirubin Total 0.2 mg/dL (0.0-1.0); Blood Urea Nitrogen 11 mg/dL (9-16); Calcium 9.3 mg/dL (8.4-10.2); Carbon Dioxide 23 mmol/L (22-29); Chloride 105 mmol/L (96-108); Estimated Glomerular Filt Rate > 60; Glucose Random 111 mg/dL (60-115); Potassium 3.7 mmol/L (3.3-5.1); Sodium 142 mmol/L (135-145); Total Protein 7.7 g/dL (6.5-8.0)
[2021-12-11 13:10] LABS: B Type Natriuretic Peptide 40 pg/mL (<100); Troponin-I High Sensitivity < 3.5 ng/L (<3.5-17.0)
[2021-12-11] MEDS: Ibuprofen 600 MG TABLET PO (14:19)
[2021-12-11 14:20] VITALS: PULSE 110; RESP 17; O2SAT 97
[2021-12-11 14:24] VITALS: PULSE 74; RESP 17
== END 2021-12-11 14:49 | disposition home or self-care (01) ==
PROVIDERS: Emergency Provider Emergency Medicine; PCP Internal Medicine
DX: J44.9 Chronic obstructive pulmonary disease, unspecified (principal); R06.02 Shortness of breath; Z20.822 Contact with and (suspected) exposure to COVID-19; I10 Essential (primary) hypertension; E78.00 Pure hypercholesterolemia, unspecified; F17.210 Nicotine dependence, cigarettes, uncomplicated; F19.90 Other psychoactive substance use, unspecified, uncomplicated; Z79.82 Long term (current) use of aspirin; Z79.899 Other long term (current) drug therapy; Z79.02 Long term (current) use of antithrombotics/antiplatelets
CPT/HCPCS: 36415; 71045; 80048; 80076; 83605; 83735; 83880; 84484; 85025; 85610; 87040; 87635; 93005; 99283; 99285

== ENCOUNTER 2021-12-18 07:02 | Emergency (ER) | payer MEDICARE, MEDICAID, SELFPAY ==
--- NOTE | ~2021-12-18 | CT_ITS ---
EXAMINATION: CT ABDOMEN AND PELVIS WITHOUT CONTRAST CLINICAL INFORMATION: Abdominal pain, vomiting, diarrhea. COMPARISON: CT abdomen/pelvis 07/05/2021. TECHNIQUE: Multidetector volumetric imaging was performed from the superior aspect of the liver through the pubic symphysis. Sagittal and coronal reformatted images were obtained on the technologist's workstation. This CT examination was performed using dose optimization techniques as appropriate, variously including the following: *Automated exposure control *Adjustment of mA and/or kV according to patient size (this includes techniques or standardized protocols for targeted exams where dose is matched to indication/reason for exam; i.e. extremities or head) *Use of iterative reconstruction technique DLP: 348 mGy-cm FINDINGS: The lack of intravenous contrast limits evaluation of the solid visceral organs including the liver, spleen, pancreas, and kidneys. LUNG BASES: Again noted emphysematous changes and peripheral reticulation. No focal consolidation or pleural effusion. Small calcified granuloma in the medial left lower lobe (4:26). LIVER, GALLBLADDER, AND BILIARY TREE: A too small to characterize hypodensity in the superior left hepatic lobe (7:42) is unchanged. Otherwise, liver is normal in size, shape and attenuation. There is a small amount of hyperdense material layering in the gallbladder (3:26) that could represent stones or sludge. No evidence of gallbladder wall thickening or pericholecystic inflammatory changes to suspect acute cholecystitis. No biliary ductal dilatation. PANCREAS: Punctate calcification in the proximal pancreatic body (4:174) is unchanged, uncertain significance. The main pancreatic duct is nondilated. There is no significant peripancreatic fat stranding or free fluid. SPLEEN: Unremarkable. ADRENAL GLANDS: Unremarkable. KIDNEYS AND URETERS: Punctate hyperdensities bilaterally in the order of 2-3 per kidney in favor to represent stones. No hydronephrosis or nephrolithiasis. No perinephric fat stranding. BLADDER: Unremarkable. GASTROINTESTINAL TRACT: Small hiatal hernia. Redemonstration of colorectal anastomosis. No evidence to suspect bowel obstruction, colitis or diverticulitis. Normal appendix. ABDOMINAL WALL: Small bilateral fat-containing inguinal hernias. Small fat-containing umbilical hernia. LYMPH NODES: No lymphadenopathy by size criteria. VASCULAR: Aortoiliac atherosclerosis. The infrarenal abdominal aorta measures up to 2.3 cm in maximum diameter, unchanged. PELVIC VISCERA: No pelvic mass. OSSEOUS STRUCTURES: Unchanged severe compression deformity of L5 with mild stable retropulsion into the anterior spinal canal. CT/CT abdomen pelvis wo IV con IMPRESSION: 1. No significant bowel abnormality to explain the patient's symptoms. 2. Small hiatal hernia. 3. Nonobstructive bilateral renal calculi. 4. Cholelithiasis versus gallbladder sludge with no findings to suspect acute cholecystitis. 5. Unchanged severe compression deformity at L5.
[2021-12-18 07:40] VITALS: BP 189/97; PULSE 115; RESP 24; TEMP 36.8; O2SAT 97; BMI 20.1
[2021-12-18] MEDS: Ondansetron ODT 4 MG TAB.RAPDIS TRANSLINGU (07:54)
[2021-12-18 08:02] LABS: Basophils Absolute Auto 0.1 X10*3/uL (0.0-0.2); Basophils Percent Auto 0.8 % (0-2); Eosinophils Absolute Auto 0.2 X10*3/uL (0.0-0.4); Eosinophils Percent Auto 2.1 % (0-4); Hematocrit 41.1 % (37.0-47.0); Hemoglobin 12.6 g/dl (12.0-16.0); Imm Gran Abs Auto 0.07 X10*3/uL (0.00-0.03); Imm Gran Pct Auto 0.7 % (0.0-0.4); Lymphocytes Absolute Auto 2.3 X10*3/uL (1.2-4.9); Lymphocytes Percent Auto 22.3 % (20-40); MANUAL DIFF FLAG SCAN; Mean Corpuscular HGB Conc 30.7 g/dl (31.0-35.0); Mean Corpuscular Hemoglobin 23.5 pg (27.0-33.0); Mean Corpuscular Volume 76.7 fL (80.0-98.0); Mean Platelet Volume 8.8 fL (9.4-12.3); Monocytes Percent Auto 9.9 % (2-11); Neutrophils Absolute Auto 6.5 x10*3/uL (2.0-8.3); Neutrophils Percent Auto 64.2 % (45-73); PLT CLUMP 1; Red Blood Count 5.36 X10*6/uL (4.20-5.50); Red Cell Distribution Width 19.3 % (11.0-16.0); SCAN SMEAR FLAG 1
--- NOTE | 2021-12-18 08:24 | ED.ABDPAIN ---
HPI - Abdominal Pain General Chief Complaint: Abdominal Pain Stated Complaint: returning sob, throwing up Time Seen by Provider: 12/18/21 08:17 Source: patient Mode of arrival: ambulatory Limitations: no limitations History of Present Illness HPI narrative: 61 yo female with hx of anxiety, abdominal pain, prior substance abuse, COPD, GERD, HLD, HTN, rectal prolapse notes since yesterday she has had n/v and upper abdominal pain. She is taking prednisone and zpak as of 12/12 for COPD exacerbation. She is very tearful. She also notes loose stool and some mucous. She states she has no one to help her at home. MD elicited complaint: abdominal pain Pertinent past history: gastritis Onset (ago): day(s) (1) Pain Consistency: constant Location: epigastric Severity: severe Quality: stabbing Exacerbating factors: eating Relieving factors: nothing Context: recent antibiotic use Associated symptoms: nausea, vomiting, diarrhea and chills Related Data Previous Rx's Medication Instructions Recorded sucralfate 1 gram tablet (Carafate) 2 g PO QNOON 30 days #60 tabs 01/08/21 aspirin 81 mg tablet,delayed 81 mg PO DAILY #30 tabs 03/20/21 release (Ecotrin Low Strength) metoclopramide HCl 5 mg tablet 5 mg PO .TIDAC 30 days #90 tabs 03/20/21 (Reglan) nicotine 14 mg/24 hr daily 1 patch transdermal DAILY 28 days 04/11/21 transdermal patch #28 ea nicotine 14 mg/24 hr daily 1 patch transdermal DAILY 7 days 04/19/21 transdermal patch #7 ea nicotine 21 mg/24 hr daily 1 patch transdermal DAILY 7 days 04/19/21 transdermal patch #7 ea nicotine 7 mg/24 hr daily 1 patch transdermal Q24H 28 days 04/19/21 transdermal patch #28 ea albuterol sulfate 90 mcg/actuation 1 puff PO Q6H PRN shortness of 05/01/21 aerosol inhaler (Ventolin HFA) breath or wheezing #18 grams cyclobenzaprine 5 mg tablet 5 mg PO TID PRN muscle spasm 30 05/01/21 days #90 tabs pantoprazole 40 mg tablet,delayed 40 mg PO DAILY 90 days #90 tabs 07/01/21 release ondansetron 4 mg disintegrating 4 mg PO Q8H 4 days #12 tabs 07/05/21 tablet cholecalciferol (vitamin D3) 50 50 mcg PO DAILY 90 days #90 caps 07/18/21 mcg (2,000 unit) capsule fluticasone propionate 50 1 spray intranasal DAILY #16 mL 07/29/21 mcg/actuation nasal spray,suspension tiotropium bromide 18 mcg capsule 1 cap inhalation DAILY 30 days #30 08/26/21 with inhalation device (Spiriva inhalations with HandiHaler) ibuprofen 600 mg tablet 600 mg PO Q8H PRN pain 30 days #90 09/27/21 tabs lorazepam 1 mg tablet 1 mg PO BID PRN anxiety 28 days 10/14/21 #56 tabs nicotine 14 mg/24 hr daily 1 patch transdermal DAILY smoking 10/14/21 transdermal patch 28 days #14 ea dicyclomine 10 mg capsule 10 mg PO QID #360 caps 10/15/21 simvastatin 40 mg tablet 40 mg PO BEDTIME #30 tabs 11/10/21 lisinopril 10 mg tablet 10 mg PO DAILY #30 tabs 11/25/21 hydroxyzine HCl 50 mg tablet 50 mg PO BEDTIME #90 tabs 12/04/21 escitalopram oxalate 20 mg tablet 20 mg PO DAILY 90 days #90 tabs 12/05/21 oxycodone 5 mg tablet 5 mg PO .1-2 times daily PRN pain 12/06/21 10 days #20 tabs azithromycin 250 mg tablet See Rx Instructions PO .COMPLEX #6 12/11/21 tabs prednisone 50 mg tablet 50 mg PO DAILY #5 tabs 12/11/21 ondansetron 4 mg disintegrating 4 mg PO Q8H PRN nausea and 12/18/21 tablet vomiting #20 tabs Allergies Allergy/AdvReac Type Severity Reaction Status Date / Time No Known Allergies Allergy Unknown unknown Verified 10/14/21 11:39 [NO KNOWN ALLERGIES] Review of Systems Review of Systems Constitutional : No Weight loss, No Fever, No Chills ENT/Mouth : No sore throat, No Rhinorrhea Eyes: No Swelling, No Redness Cardiovascular : No Chest Pain, No SOB, NoEdema Respiratory : No Cough, No Sputum, No Wheezing Gastrointestinal : Positive Nausea, Positive Vomiting, positive Diarrhea, positive abdominal Pain, No Hematochezia, No Melena Genitourinary : No Dysuria, No Urinary Frequency, No Hematuria, No Urgency Musculoskeletal : No joint pain, No Myalgias, No Joint Swelling Skin : No Skin Lesions, No rash Neuro : No Weakness, No Numbness, No Dizziness, No Headache Psych : pos Anxiety/Panic, No Depression Heme/Lymph: No Bruising, No Lymphadenopathy Endocrine : No Polyuria, No Polydipsia All other systems reviewed and are negative. [facility] Past Medical History Attestation statement: The following information was validated with the patient. Medical History Allergic rhinitis Anxiety Benign essential hypertension Cervical spondylosis COPD (chronic obstructive pulmonary disease) Depression Early satiety 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 Gastritis GERD (gastroesophageal reflux disease) History of hepatitis C IV drug user Mitral regurgitation Mitral valve prolapse Osteopenia (~2011) Paresthesia of left leg Personal history of nicotine dependence Pulmonary nodule Pure hypercholesterolemia Rectal prolapse Smoker Vitamin D deficiency Surgical History History of colonoscopy History of hysteroscopy History of liver biopsy History of partial colectomy Family History Family History Father Internal bleeding Mother Medical history unknown Social History Social History Housing: House Alcohol intake: former Patient Tobacco Use Status: Current everyday Tobacco user Tobacco use type: Cigarette Cigarette Packs Per Day: 0.5 Cigarettes Per Day: 10 Years Smoked: 45 years (onset 15, 1/2-3/4ppd x 44yrs, 28pyh) Second Hand Smoke Exposure: Yes Substance Use Type: Crack/Cocaine Advance Directives: No Advance Directives Information Provided: Yes service: No Current occupational status: unemployed Sexual orientation: Straight/Heterosexual Gender identity: Female Cognitive needs: No Hearing needs: No Vision needs: Yes Physical Exam ED Vital Signs: Vital Signs - 24 hr 12/18/21 07:40 12/18/21 10:11 Temperature 98.3 F 98.1 F Pulse Rate 115 H 60 Respiratory Rate 24 H 18 Blood Pressure 189/97 H 133/82 Pulse Oximetry 97 98 Oxygen Delivery Method Room Air Room Air BMI result Body Mass Index 20.1 Appearance: Alert. Oriented X3. No acute distress. Tearful anxious Eyes: Pupils equal, round and reactive to light. ENT: Pharynx normal. Neck: Normal inspection. Neck supple. CVS: tachycardic heart rate and rhythm. Pulses normal. Respiratory: No respiratory distress. Breath sounds normal. Abdomen: Soft and moderate epigastric ttp no rebound Skin: Skin warm and dry. pale skin color. Normal skin turgor. Extremities: No lower extremity edema. No calf ttp Neuro: Oriented X 3. No motor deficit. No sensory deficit. Course Course Course Narrative: labs unremarkable, UA pending, CT scan no acute cause for symptoms will repeat BMP no acute findings, BMP resolved, has had chronic abdominal pain in the past feels better offered case management she declined MDM - Abdominal Pain MDM Narrative Medical decision making narrative: 61 yo female with hx of anxiety, abdominal pain, prior substance abuse, COPD, GERD, HLD, HTN, rectal prolapse - notes abdominal pain n/v/d since starting zpak and prednisone. At this time will need labs, CT scan for colitis, IVF, IV zofran and morphine. Disp per results and findings. Differential Diagnosis Differential diagnosis: Unlikely acute appendicitis or bowel perforation Lab Data Result diagrams: 12/18/21 07:55 12/18/21 10:59 Labs: Lab Results 12/18/21 12/18/21 12/18/21 Range/Units 07:55 07:55 07:55 WBC 10.1 (4.8-10.8) X10*3/uL RBC 5.36 (4.20-5.50) X10*6/uL Hgb 12.6 (12.0-16.0) g/dl Hct 41.1 (37.0-47.0) % MCV 76.7 L (80.0-98.0) fL MCH 23.5 L (27.0-33.0) pg MCHC 30.7 L (31.0-35.0) g/dl RDW 19.3 H (11.0-16.0) % Plt Count 246 (160-400) X10*3/uL MPV 8.8 L (9.4-12.3) fL Immature Gran % (Auto) 0.7 H (0.0-0.4) % Neut % (Auto) 64.2 (45-73) % Lymph % (Auto) 22.3 (20-40) % [place] % (Auto) 9.9 (2-11) % Eos % (Auto) 2.1 (0-4) % Baso % (Auto) 0.8 (0-2) % Lymph # (Auto) 2.3 (1.2-4.9) X10*3/uL [place] # (Auto) 1.0 (0.1-1.2) X10*3/uL Eos # (Auto) 0.2 (0.0-0.4) X10*3/uL Baso # (Auto) 0.1 (0.0-0.2) X10*3/uL Abs Immat Gran (auto) 0.07 H (0.00-0.03) X10*3/uL Absolute Neuts (auto) 6.5 (2.0-8.3) x10*3/uL Absolute Nucleated RBC 0.000 (0.0-0.012) X10*3/uL Nucleated RBC % (auto) 0.0 (0.0-0.2) /100WBC Smear Tech's Comments VERIFIED Sodium 141 (135-145) mmol/L Potassium 5.3 H D (3.3-5.1) mmol/L Chloride 106 (96-108) mmol/L Carbon Dioxide 18 L (22-29) mmol/L Anion Gap 22 H (12-20) BUN 11 (9-16) mg/dL Creatinine 0.80 (0.5-1.4) mg/dL Estim Creat Clear Calc 57.4 Estimated GFR > 60 Random Glucose 133 H (60-115) mg/dL Lactic Acid (0.5-2.0) mmol/L Calcium 9.2 (8.4-10.2) mg/dL Magnesium 2.1 (1.6-2.6) mg/dL Total Bilirubin 0.4 (0.0-1.0) mg/dL Direct Bilirubin 0.2 (0.0-0.5) mg/dL AST 18 (5-31) U/L ALT 10 (0-31) U/L Alkaline Phosphatase 56 (39-117) U/L Total Protein 7.8 (6.5-8.0) g/dL Albumin 4.4 (3.5-5.0) g/dL Lipoprotein (a) Cancelled Lipase 33 (8-78) U/L Urine Color Urine Appearance Urine pH (5.0-9.0) Ur Specific [place] (1.005-1.025) Urine Protein (Neg-Trace) mg/dL Urine Glucose (UA) (Negative) mg/dL Urine Ketones (Negative) mg/dL Urine Blood (Negative) Urine Nitrite (Negative) Ur Leukocyte Esterase (Negative) 12/18/21 12/18/21 12/18/21 Range/Units 09:45 10:59 10:59 WBC (4.8-10.8) X10*3/uL RBC (4.20-5.50) X10*6/uL Hgb (12.0-16.0) g/dl Hct (37.0-47.0) % MCV (80.0-98.0) fL MCH (27.0-33.0) pg MCHC (31.0-35.0) g/dl RDW (11.0-16.0) % Plt Count (160-400) X10*3/uL MPV (9.4-12.3) fL Immature Gran % (Auto) (0.0-0.4) % Neut % (Auto) (45-73) % Lymph % (Auto) (20-40) % [place] % (Auto) (2-11) % Eos % (Auto) (0-4) % Baso % (Auto) (0-2) % Lymph # (Auto) (1.2-4.9) X10*3/uL [place] # (Auto) (0.1-1.2) X10*3/uL Eos # (Auto) (0.0-0.4) X10*3/uL Baso # (Auto) (0.0-0.2) X10*3/uL Abs Immat Gran (auto) (0.00-0.03) X10*3/uL Absolute Neuts (auto) (2.0-8.3) x10*3/uL Absolute Nucleated RBC (0.0-0.012) X10*3/uL Nucleated RBC % (auto) (0.0-0.2) /100WBC Smear Tech's Comments Sodium 141 (135-145) mmol/L Potassium 4.0 D (3.3-5.1) mmol/L Chloride 107 (96-108) mmol/L Carbon Dioxide 24 (22-29) mmol/L Anion Gap 14 (12-20) BUN 9 (9-16) mg/dL Creatinine 0.68 (0.5-1.4) mg/dL Estim Creat Clear Calc 67.5 Estimated GFR > 60 Random Glucose 103 (60-115) mg/dL Lactic Acid 1.2 (0.5-2.0) mmol/L Calcium 8.4 D (8.4-10.2) mg/dL Magnesium (1.6-2.6) mg/dL Total Bilirubin (0.0-1.0) mg/dL Direct Bilirubin (0.0-0.5) mg/dL AST (5-31) U/L ALT (0-31) U/L Alkaline Phosphatase (39-117) U/L Total Protein (6.5-8.0) g/dL Albumin (3.5-5.0) g/dL Lipoprotein (a) Lipase (8-78) U/L Urine Color Yellow Urine Appearance Clear Urine pH 8.5 (5.0-9.0) Ur Specific [place] 1.010 (1.005-1.025) Urine Protein Negative (Neg-Trace) mg/dL Urine Glucose (UA) Negative (Negative) mg/dL Urine Ketones Negative (Negative) mg/dL Urine Blood Negative (Negative) Urine Nitrite Negative (Negative) Ur Leukocyte Esterase Trace H (Negative) ECG Data Attestation: I personally reviewed and interpreted this ECG as follows: ECG interpretation date: 12/18/21 ECG interpretation time: 11:27 Interpretation: Rate: 63 Rhythm: NSR [place]: left Normal P waves. Normal [place]. Normal QRS complex. ST T wave : nonspecific no [place] qTC: normal prior studies: no acute ischemia The study has been interpreted contemporaneously by me. . Discharge Plan Discharge Clinical Impression: Generalized abdominal pain, Anxiety Nausea and vomiting Qualifiers: Vomiting type: unspecified Qualified Code(s): R11.2 - Nausea with vomiting, unspecified Patient Disposition: Home, Self-Care Instructions: Acute Nausea and Vomiting (ED), Abdominal Pain (ED), Anxiety (ED) Additional Instructions: return to ED for any worsening symptoms or concerns Prescriptions: New ondansetron 4 mg tablet,disintegrating 4 mg PO Q8H PRN (Reason: nausea and vomiting) Qty: 20 0RF No Action aspirin [Ecotrin Low Strength] 81 mg tablet,delayed release (DR/EC) 81 mg PO DAILY Qty: 30 5RF metoclopramide HCl [Reglan] 5 mg tablet 5 mg PO .TIDAC 30 Days Qty: 90 3RF cyclobenzaprine 5 mg tablet 5 mg PO TID PRN (Reason: muscle spasm) 30 Days Qty: 90 1RF albuterol sulfate [Ventolin HFA] 90 mcg/actuation HFA aerosol inhaler 1 puff PO Q6H PRN (Reason: shortness of breath or wheezing) Qty: 18 3RF pantoprazole 40 mg tablet,delayed release (DR/EC) 40 mg PO DAILY 90 Days Qty: 90 1RF fluticasone propionate 50 mcg/actuation spray,suspension 1 spray intranasal DAILY Qty: 16 5RF Spiriva with HandiHaler 18 mcg capsule, w/inhalation device 1 cap inhalation DAILY 30 Days Qty: 30 5RF Rx Instructions: puncture 1 cap using device; one dose = 2 inhalations ibuprofen 600 mg tablet 600 mg PO Q8H PRN (Reason: pain) 30 Days Qty: 90 1RF Rx Instructions: take with food dicyclomine 10 mg capsule 10 mg PO QID Qty: 360 0RF simvastatin 40 mg tablet 40 mg PO BEDTIME Qty: 30 1RF lisinopril 10 mg tablet 10 mg PO DAILY Qty: 30 5RF hydroxyzine HCl 50 mg tablet 50 mg PO BEDTIME Qty: 90 1RF escitalopram oxalate 20 mg tablet 20 mg PO DAILY 90 Days Qty: 90 1RF oxycodone 5 mg tablet 5 mg PO .1-2 times daily PRN (Reason: pain) 10 Days Qty: 20 0RF ondansetron 4 mg tablet,disintegrating 4 mg PO Q8H 4 Days Qty: 12 0RF azithromycin 250 mg tablet See Rx Instructions .ROUTE .COMPLEX Qty: 6 0RF Rx Instructions: For 250 mg dose pack: take 500 mg today (day 1), then 250 mg for 4 days (days 2-5) prednisone 50 mg tablet 50 mg PO DAILY Qty: 5 0RF lorazepam 1 mg tablet 1 mg PO BID PRN (Reason: anxiety) 28 Days Qty: 56 1RF nicotine 21 mg/24 hr patch 24 hour 1 patch transdermal DAILY 7 Days Qty: 7 0RF nicotine 14 mg/24 hr patch 24 hour 1 patch transdermal DAILY 7 Days Qty: 7 0RF nicotine 7 mg/24 hr patch 24 hour 1 patch transdermal Q24H 28 Days Qty: 28 5RF cholecalciferol (vitamin D3) 50 mcg (2,000 unit) capsule 50 mcg PO DAILY 90 Days Qty: 90 3RF Rx Instructions: 1 capsule Orally Once a day sucralfate [Carafate] 1 gram tablet 2 g PO QNOON 30 Days Qty: 60 6RF nicotine 14 mg/24 hr patch 24 hour 1 patch transdermal DAILY 28 Days Qty: 28 3RF Rx Instructions: 14 mg patch nicotine 14 mg/24 hr patch 24 hour 1 patch transdermal DAILY MDD 1 28 Days Qty: 14 3RF Referrals: Sarthak Person MD [Primary Care Provider] - 2 days (if not better)
[2021-12-18 08:27] LABS: Alanine Aminotransferase 10 U/L (0-31); Albumin Level 4.4 g/dL (3.5-5.0); Alkaline Phosphatase 56 U/L (39-117); Anion Gap 22 (12-20); Aspartate Amino Transferase 18 U/L (5-31); Bilirubin Direct 0.2 mg/dL (0.0-0.5); Bilirubin Total 0.4 mg/dL (0.0-1.0); Blood Urea Nitrogen 11 mg/dL (9-16); Calcium 9.2 mg/dL (8.4-10.2); Carbon Dioxide 18 mmol/L (22-29); Chloride 106 mmol/L (96-108); Creatinine Clr Calc Pharmacy 57.4; Estimated Glomerular Filt Rate > 60; Glucose Random 133 mg/dL (60-115); Platelet Count 246 X10*3/uL (160-400); Potassium 5.3 mmol/L (3.3-5.1); SLIDE REVIEW VERIFIED; Sodium 141 mmol/L (135-145); Total Protein 7.8 g/dL (6.5-8.0); White Blood Count 10.1 X10*3/uL (4.8-10.8)
--- NOTE | 2021-12-18 08:37 | ECG_ITS ---
Test Reason : abdominal pain Blood Pressure : / mmHG Vent. Rate : 063 BPM Atrial Rate : 063 BPM P-R Int : 200 ms QRS Dur : 096 ms QT Int : 444 ms P-R-T Axes : 075 -30 057 degrees QTc Int : 454 ms Normal sinus rhythm Left axis deviation Low voltage QRS Abnormal ECG When compared with ECG of 11-DEC-2021 11:45, No significant change was found Referred By: Amanda Rhoades Electronically Signed By:URIEL JONES
[2021-12-18 09:22] LABS: Lipase 33 U/L (8-78); Magnesium 2.1 mg/dL (1.6-2.6)
[2021-12-18] MEDS: 0.9 % Sodium Chloride 1,000 ML 999 ML IV (09:46)
[2021-12-18] MEDS: Morphine Sulfate 4 MG/ML CARTRIDGE IVPUSH (09:57)
[2021-12-18] MEDS: Famotidine/PF 20 MG/2 ML VIAL IVPUSH (09:57)
[2021-12-18] MEDS: ondansetron HCL 4 MG/2 ML VIAL IVPUSH (09:57)
[2021-12-18 10:05] LABS: Lactic Acid 1.2 mmol/L (0.5-2.0)
--- NOTE | 2021-12-18 10:06 | PC.NURSE ---
Pt VS are stable, pt meds were administered as order. Will continue to monitor.
[2021-12-18 10:11] VITALS: BP 133/82; PULSE 60; RESP 18; TEMP 36.7; O2SAT 98
[2021-12-18 11:12] LABS: Appearance Urine Clear; Color Urine Yellow; Glucose Urine UA Negative (Negative); Leukocyte Esterase Urine Trace (Negative); Nitrite Urine Negative (Negative); PH 8.5 (5.0-9.0); UMIC TRIGGER UACC YES; Urine Blood Negative (Negative); Urine Ketones Negative (Negative); Urine Protein Negative (Neg-Trace)
[2021-12-18 11:36] LABS: Anion Gap 14 (12-20); Blood Urea Nitrogen 9 mg/dL (9-16); Calcium 8.4 mg/dL (8.4-10.2); Carbon Dioxide 24 mmol/L (22-29); Chloride 107 mmol/L (96-108); Creatinine Clr Calc Pharmacy 67.5; Estimated Glomerular Filt Rate > 60; Glucose Random 103 mg/dL (60-115); Sodium 141 mmol/L (135-145)
[2021-12-18 12:16] LABS: Bacteria Urine None Seen (None Seen); Hyaline Casts Urine 0-2 /LPF (0-2); RBC Urine 0-2 /HPF (0-2); WBC Urine 0-5 /HPF (0-5)
[2021-12-18] MEDS: Magnesium Hydrox/Alum Hydrox 30 ML ORAL.SUSP 15 ML PO (12:34)
[2021-12-18] MEDS: Lidocaine HCl Viscous 2 % 15 ML SOLUTION MUCOUS MEM (12:34)
[2021-12-18 12:35] VITALS: BP 190/88; PULSE 84; RESP 20; TEMP 36.8
--- NOTE | 2021-12-18 12:58 | PC.NURSE ---
Pt was experiencing anxiety, Dr. Rhoades was aware, Brooke from case management sent to speak with the pt for pt resources. Pt was d/c by provider, patient did not complain of headache, dizziness, blurry vision or chest pain.
--- NOTE | 2021-12-18 12:59 | MHC.CM.ED ---
Received case management consult from Dr Rhoades. Patient came to ER due to SOB. Work up essentially negative. Patient requesting services at home. Met with patient in regards to discharge planning. Patient lives alone, ambulates independently and had no services prior to coming to the hospital. Patient still drives. T/W explained patient is not homebound and would not qualify for VNA at home. Patient verbalizes understanding and will drive herself home. Dr Rhoades aware.
== END 2021-12-18 13:07 | disposition home or self-care (01) ==
PROVIDERS: Emergency Provider Emergency Medicine; PCP Internal Medicine
DX: R11.2 Nausea with vomiting, unspecified (principal); R10.2 Pelvic and perineal pain; R10.9 Unspecified abdominal pain; F41.1 Generalized anxiety disorder; F43.0 Acute stress reaction; R06.02 Shortness of breath; F17.210 Nicotine dependence, cigarettes, uncomplicated; Z71.6 Tobacco abuse counseling; Z79.899 Other long term (current) drug therapy
CPT/HCPCS: 36415; 74176; 80048; 80076; 81001; 83605; 83690; 83735; 85025; 93005; 96361; 96374; 96375; 99284; J2270; J2405

== ENCOUNTER 2022-02-03 08:20 | Outpatient (REF) | payer MEDICARE, MEDICAID, SELFPAY ==
[2022-02-03 08:38] LABS: MANUAL DIFF FLAG NO
[2022-02-03 09:19] LABS: Basophils Percent Auto 0.7 % (0-2); Eosinophils Absolute Auto 0.1 X10*3/uL (0.0-0.4); Eosinophils Percent Auto 2.4 % (0-4); Hematocrit 33.3 % (37.0-47.0); Imm Gran Abs Auto 0.02 X10*3/uL (0.00-0.03); Imm Gran Pct Auto 0.3 % (0.0-0.4); Lymphocytes Absolute Auto 1.6 X10*3/uL (1.2-4.9); Lymphocytes Percent Auto 27.7 % (20-40); Mean Corpuscular Hemoglobin 22.4 pg (27.0-33.0); Mean Corpuscular Volume 74.5 fL (80.0-98.0); Mean Platelet Volume 9.1 fL (9.4-12.3); Monocytes Absolute Auto 0.5 X10*3/uL (0.1-1.2); Neutrophils Absolute Auto 3.5 x10*3/uL (2.0-8.3); Neutrophils Percent Auto 59.9 % (45-73); Platelet Count 233 X10*3/uL (160-400); Red Blood Count 4.47 X10*6/uL (4.20-5.50); Red Cell Distribution Width 17.3 % (11.0-16.0); White Blood Count 5.9 X10*3/uL (4.8-10.8)
[2022-02-03 10:00] LABS: Alanine Aminotransferase 7 U/L (0-31); Albumin Level 4.3 g/dL (3.5-5.0); Alkaline Phosphatase 64 U/L (39-117); Anion Gap 16 (12-20); Aspartate Amino Transferase 15 U/L (5-31); Bilirubin Total 0.2 mg/dL (0.0-1.0); Blood Urea Nitrogen 17 mg/dL (9-16); Calcium 9.3 mg/dL (8.4-10.2); Carbon Dioxide 25 mmol/L (22-29); Chloride 105 mmol/L (96-108); Cholesterol 186 mg/dL; Estimated Glomerular Filt Rate > 60; Glucose Fasting 126 mg/dL (60-99); HDL Cholesterol 53 mg/dL; LDL Cholesterol Calculated 115 mg/dl; Potassium 4.4 mmol/L (3.3-5.1); Sodium 142 mmol/L (135-145); Total Protein 6.8 g/dL (6.5-8.0); Triglycerides 93 mg/dL
[2022-02-03 10:23] LABS: TSH reflex Free T4 2.72 uIU/mL (0.32-4.0); Vitamin D 25-OH Total 33.3 ng/mL (>30)
== END 2022-02-03 08:21 | disposition home or self-care (01) ==
LOC: HO.LAB 08:20
PROVIDERS: PCP Internal Medicine; Visit Provider Internal Medicine
DX: E78.00 Pure hypercholesterolemia, unspecified (principal); I10 Essential (primary) hypertension; E55.9 Vitamin D deficiency, unspecified
CPT/HCPCS: 36415; 80053; 80061; 82306; 84443; 85025

== ENCOUNTER 2022-02-17 05:20 | Emergency (ER) | payer MEDICARE, MEDICAID, SELFPAY ==
--- NOTE | ~2022-02-17 | CT_ITS ---
EXAMINATION: CT ABDOMEN AND PELVIS WITHOUT CONTRAST CLINICAL INFORMATION: Abdominal pain COMPARISON: 12/18/2021 TECHNIQUE: Multidetector volumetric imaging was performed from the superior aspect of the liver through the pubic symphysis. Sagittal and coronal reformatted images were obtained on the technologist's workstation. This CT examination was performed using dose optimization techniques as appropriate, variously including the following: *Automated exposure control *Adjustment of mA and/or kV according to patient size (this includes techniques or standardized protocols for targeted exams where dose is matched to indication/reason for exam; i.e. extremities or head) *Use of iterative reconstruction technique DLP: 358 mGy-cm FINDINGS: LUNG BASES: Minimal scarring anterior left lower lung stable. No pleural effusions. LIVER, GALLBLADDER, AND BILIARY TREE: The liver is normal in size, shape, and attenuation. No focal hepatic lesion or biliary ductal dilatation is present. Tiny gallstones noted. No change. PANCREAS: Unremarkable. SPLEEN: Unremarkable. ADRENAL GLANDS: Unremarkable. KIDNEYS AND URETERS: 1 mm punctate nephrolith mid right kidney. No suspicious mass or hydronephrosis or perinephric collection BLADDER: Unremarkable. GASTROINTESTINAL TRACT: No bowel obstruction or right or left lower quadrant inflammatory change. ABDOMINAL WALL: No significant hernia is appreciated. LYMPH NODES: Normal. VASCULAR: Aorta atherosclerotic and ectatic but nonaneurysmal. PELVIC VISCERA: Unremarkable. OSSEOUS STRUCTURES: There is a severe compression fracture of L5. No change. CT/CT abdomen pelvis wo IV con IMPRESSION: No acute abnormalities. Small gallstones. No hydronephrosis.
[2022-02-17 05:30] VITALS: BP 177/96; PULSE 122; RESP 20; TEMP 36.5; O2SAT 98; BMI 19.2
--- NOTE | 2022-02-17 05:35 | ECG_ITS ---
Test Reason : N/V Blood Pressure : / mmHG Vent. Rate : 077 BPM Atrial Rate : 077 BPM P-R Int : 192 ms QRS Dur : 100 ms QT Int : 400 ms P-R-T Axes : 072 -37 062 degrees QTc Int : 452 ms Normal sinus rhythm with sinus arrhythmia Left anterior fascicular block Nonspecific ST abnormality Lateral leads Low voltage QRS Abnormal ECG When compared with ECG of 18-DEC-2021 11:16, ST more depressed Lateral leads Referred By: Adele Randhawa Electronically Signed By:MAI BURCH MD
[2022-02-17 05:36] VITALS: BP 161/81; PULSE 104; RESP 22; TEMP 36.7; O2SAT 97
[2022-02-17 06:00] LABS: MANUAL DIFF FLAG NO
[2022-02-17 06:04] LABS: Basophils Absolute Auto 0.1 X10*3/uL (0.0-0.2); Basophils Percent Auto 0.7 % (0-2); Eosinophils Absolute Auto 0.1 X10*3/uL (0.0-0.4); Eosinophils Percent Auto 1.6 % (0-4); Hematocrit 38.4 % (37.0-47.0); Hemoglobin 11.6 g/dl (12.0-16.0); Imm Gran Abs Auto 0.04 X10*3/uL (0.00-0.03); Imm Gran Pct Auto 0.5 % (0.0-0.4); Lymphocytes Absolute Auto 1.2 X10*3/uL (1.2-4.9); Lymphocytes Percent Auto 15.6 % (20-40); Mean Corpuscular HGB Conc 30.2 g/dl (31.0-35.0); Mean Corpuscular Hemoglobin 23.2 pg (27.0-33.0); Mean Corpuscular Volume 76.8 fL (80.0-98.0); Mean Platelet Volume 8.8 fL (9.4-12.3); Monocytes Absolute Auto 0.6 X10*3/uL (0.1-1.2); Monocytes Percent Auto 7.3 % (2-11); Neutrophils Absolute Auto 5.6 x10*3/uL (2.0-8.3); Neutrophils Percent Auto 74.3 % (45-73); Platelet Count 215 X10*3/uL (160-400); White Blood Count 7.6 X10*3/uL (4.8-10.8)
[2022-02-17 06:08] LABS: Prothrombin Time 11.4 SEC (10.0-13.1)
[2022-02-17 06:16] LABS: COVID-19 Test Negative (Negative)
[2022-02-17 06:20] LABS: Alanine Aminotransferase 7 U/L (0-31); Albumin Level 4.4 g/dL (3.5-5.0); Alkaline Phosphatase 54 U/L (39-117); Anion Gap 18 (12-20); Aspartate Amino Transferase 21 U/L (5-31); Bilirubin Total 0.5 mg/dL (0.0-1.0); Blood Urea Nitrogen 9 mg/dL (9-16); Calcium 9.3 mg/dL (8.4-10.2); Carbon Dioxide 23 mmol/L (22-29); Chloride 106 mmol/L (96-108); Creatinine Clr Calc Pharmacy 57.6; Estimated Glomerular Filt Rate > 60; Glucose Random 131 mg/dL (60-115); Potassium 4.2 mmol/L (3.3-5.1); Sodium 143 mmol/L (135-145); Total Protein 7.2 g/dL (6.5-8.0)
--- NOTE | 2022-02-17 07:20 | ED_ITS ---
HPI - Nausea/Vomiting/Diarrhea General Chief complaint: Nausea/Vomiting/Diarrhea Stated complaint: anemic, n/v/d, blood in stool Time Seen by Provider: 02/17/22 06:29 Source: patient Mode of arrival: ambulatory History of Present Illness HPI Narrative: 61-year-old female who has a history of rectal prolapse, she does not have rectal prolapse currently, states that she has been having some diarrhea but more significant is her episodes of nausea and vomiting as well as mid abdominal discomfort. Patient underwent rectal prolapse surgery repair in 2010. She states that she occasionally has bloody bowel movements but denies any at this time. She states that she is an everyday smoker but denies any alcohol use and occasionally uses cannabis. Related Data Previous Rx's Medication Instructions Recorded nicotine 14 mg/24 hr daily 1 patch transdermal DAILY 28 days 04/11/21 transdermal patch #28 ea nicotine 14 mg/24 hr daily 1 patch transdermal DAILY 7 days 04/19/21 transdermal patch #7 ea nicotine 21 mg/24 hr daily 1 patch transdermal DAILY 7 days 04/19/21 transdermal patch #7 ea nicotine 7 mg/24 hr daily 1 patch transdermal Q24H 28 days 04/19/21 transdermal patch #28 ea albuterol sulfate 90 mcg/actuation 1 puff PO Q6H PRN shortness of 05/01/21 aerosol inhaler (Ventolin HFA) breath or wheezing #18 grams ondansetron 4 mg disintegrating 4 mg PO Q8H 4 days #12 tabs 07/05/21 tablet cholecalciferol (vitamin D3) 50 50 mcg PO DAILY 90 days #90 caps 07/18/21 mcg (2,000 unit) capsule tiotropium bromide 18 mcg capsule 1 cap inhalation DAILY 30 days #30 08/26/21 with inhalation device (Spiriva inhalations with HandiHaler) ibuprofen 600 mg tablet 600 mg PO Q8H PRN pain 30 days #90 09/27/21 tabs nicotine 14 mg/24 hr daily 1 patch transdermal DAILY smoking 10/14/21 transdermal patch 28 days #14 ea dicyclomine 10 mg capsule 10 mg PO QID #360 caps 10/15/21 simvastatin 40 mg tablet 40 mg PO BEDTIME #30 tabs 11/10/21 lisinopril 10 mg tablet 10 mg PO DAILY #30 tabs 11/25/21 hydroxyzine HCl 50 mg tablet 50 mg PO BEDTIME #90 tabs 12/04/21 ondansetron 4 mg disintegrating 4 mg PO Q8H PRN nausea and 12/18/21 tablet vomiting #20 tabs metoclopramide HCl 5 mg tablet 5 mg PO .TIDAC 30 days #90 tabs 01/03/22 (Reglan) pantoprazole 40 mg tablet,delayed 40 mg PO DAILY 90 days #90 tabs 01/03/22 release aspirin 81 mg tablet,delayed 81 mg PO DAILY #30 tabs 01/09/22 release (Ecotrin Low Strength) sucralfate 1 gram tablet 2 g PO DAILY #60 tabs 01/10/22 amoxicillin 500 mg capsule 2,000 mg PO ONCE 1 day #4 caps 01/20/22 escitalopram oxalate 20 mg tablet 20 mg PO DAILY 90 days #90 tabs 01/20/22 ferrous sulfate 325 mg (65 mg 325 mg PO DAILY 30 days #30 tabs 02/04/22 iron) tablet (Feosol) solifenacin 10 mg tablet (Vesicare) 10 mg PO DAILY 30 days #30 tabs 02/04/22 cyclobenzaprine 5 mg tablet 5 mg PO TID PRN muscle spasm 30 02/07/22 days #90 tabs lorazepam 1 mg tablet 1 mg PO BID PRN anxiety 28 days 02/13/22 #56 tabs oxycodone 5 mg tablet 5 mg PO .1-2 times daily PRN pain 02/13/22 10 days #20 tabs Allergies Allergy/AdvReac Type Severity Reaction Status Date / Time No Known Allergies Allergy Unknown unknown Verified 02/04/22 12:03 [NO KNOWN ALLERGIES] Review of Systems Review of Systems: Pertinent positives and negatives as stated in HPI 10 point review of systems is otherwise negative. [facility] Past Medical History Source: nursing notes reviewed Medical History Allergic rhinitis Anxiety Benign essential hypertension Cervical spondylosis COPD (chronic obstructive pulmonary disease) Depression Early satiety 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 Gastritis GERD (gastroesophageal reflux disease) History of hepatitis C IV drug user Mitral regurgitation Mitral valve prolapse Osteopenia (~2011) Paresthesia of left leg Personal history of nicotine dependence Pulmonary nodule Pure hypercholesterolemia Rectal prolapse Smoker Vitamin D deficiency Surgical History History of colonoscopy History of hysteroscopy History of liver biopsy History of partial colectomy Family History Family History Father Internal bleeding Mother Medical history unknown Social History Social History Housing: House Housing Other:: lives alone with her cat Malena Alcohol intake: former Patient Tobacco Use Status: Current everyday Tobacco user Tobacco use type: Cigarette Cigarette Packs Per Day: 0.5 Cigarettes Per Day: 10 Years Smoked: 44 years (onset 15, 1/2-3/4ppd x 44yrs, 28pyh) Smoked in Last 30 Days: Yes e-Cigarette/Vaping Use: Never Used Second Hand Smoke Exposure: Yes Use of substances other than those prescribed or required for medical reasons: Yes Substance Use Type: Marijuana Advance Directives: No Patient : No service: No Current occupational status: unemployed Sexual orientation: Straight/Heterosexual Gender identity: Female Cognitive needs: No Hearing needs: No Vision needs: Yes Physical Exam Vital Signs: Vital Signs: Last Vital Signs Temp 98.2 F 02/17/22 07:37 Pulse 65 02/17/22 07:37 Resp 14 02/17/22 07:37 BP 148/62 H 02/17/22 07:37 Pulse Ox 96 02/17/22 07:37 O2 Del Method 02/17/22 07:37 BMI result Body Mass Index 19.2 VITAL SIGNS: Reviewed. GENERAL: Well developed, well nourished, in no acute distress. HEAD: Normocephalic/atraumatic EYES: PERRLA, EOMI EARS: Ext canals without abnormality OROPHARYNX: no oral lesions noted, posterior pharynx clear LUNGS: Normal breath sounds. No adventitious sounds or accessory muscle use. SpO2<97> CARDIOVASCULAR: Regular rate and rhythm without noted murmurs ABDOMEN: Soft, abdominal discomfort without rebound, non-distended with bowel sounds. RECTAL: There is no blood on the finger, there is no rectal prolapse, there is no melena MUSCULOSKELETAL: No tenderness, deformities, or effusions noted on gross inspection. EXTREMITIES: No cyanosis, clubbing or edema. SKIN: Inspection of the skin reveals no rashes NEUROLOGIC: Alert and oriented x 4. Strength and sensation to light touch were grossly intact x 4. Course Course Course Narrative: 61-year-old female with history and clinical presentation most suggestive of possible SBO, gastroenteritis. Review of all investigations without evidence of leukocytosis or significant anemia from baseline, chemistries are within normal limits. Signed out to Dr. Ortiz Follow-up CT scan, [facility] - Nausea/Vomiting/Diarrhea Lab Data Result diagrams: 02/17/22 05:55 02/17/22 05:54 Labs: Lab Results 02/17/22 02/17/22 02/17/22 Range/Units 05:54 05:54 05:55 WBC 7.6 (4.8-10.8) X10*3/uL RBC 5.00 (4.20-5.50) X10*6/uL Hgb 11.6 L (12.0-16.0) g/dl Hct 38.4 (37.0-47.0) % MCV 76.8 L (80.0-98.0) fL MCH 23.2 L (27.0-33.0) pg MCHC 30.2 L (31.0-35.0) g/dl RDW 22.0 H (11.0-16.0) % Plt Count 215 (160-400) X10*3/uL MPV 8.8 L (9.4-12.3) fL Immature Gran % (Auto) 0.5 H (0.0-0.4) % Neut % (Auto) 74.3 H (45-73) % Lymph % (Auto) 15.6 L (20-40) % [place] % (Auto) 7.3 (2-11) % Eos % (Auto) 1.6 (0-4) % Baso % (Auto) 0.7 (0-2) % Lymph # (Auto) 1.2 (1.2-4.9) X10*3/uL [place] # (Auto) 0.6 (0.1-1.2) X10*3/uL Eos # (Auto) 0.1 (0.0-0.4) X10*3/uL Baso # (Auto) 0.1 (0.0-0.2) X10*3/uL Abs Immat Gran (auto) 0.04 H (0.00-0.03) X10*3/uL Absolute Neuts (auto) 5.6 (2.0-8.3) x10*3/uL Absolute Nucleated RBC 0.000 (0.0-0.012) X10*3/uL Nucleated RBC % (auto) 0.0 (0.0-0.2) /100WBC PT 11.4 (10.0-13.1) SEC INR 1.0 (0.9-1.1) Sodium 143 (135-145) mmol/L Potassium 4.2 (3.3-5.1) mmol/L Chloride 106 (96-108) mmol/L Carbon Dioxide 23 (22-29) mmol/L Anion Gap 18 (12-20) BUN 9 (9-16) mg/dL Creatinine 0.76 (0.5-1.4) mg/dL Estim Creat Clear Calc 57.6 Estimated GFR > 60 Random Glucose 131 H (60-115) mg/dL Calcium 9.3 (8.4-10.2) mg/dL Total Bilirubin 0.5 (0.0-1.0) mg/dL AST 21 (5-31) U/L ALT 7 (0-31) U/L Alkaline Phosphatase 54 (39-117) U/L Total Protein 7.2 (6.5-8.0) g/dL Albumin 4.4 (3.5-5.0) g/dL COVID-19 ([facility]) (Negative) COVID-19 Clin Com 02/17/22 Range/Units 05:56 WBC (4.8-10.8) X10*3/uL RBC (4.20-5.50) X10*6/uL Hgb (12.0-16.0) g/dl Hct (37.0-47.0) % MCV (80.0-98.0) fL MCH (27.0-33.0) pg MCHC (31.0-35.0) g/dl RDW (11.0-16.0) % Plt Count (160-400) X10*3/uL MPV (9.4-12.3) fL Immature Gran % (Auto) (0.0-0.4) % Neut % (Auto) (45-73) % Lymph % (Auto) (20-40) % Licking % (Auto) (2-11) % Eos % (Auto) (0-4) % Baso % (Auto) (0-2) % Lymph # (Auto) (1.2-4.9) X10*3/uL [place]icking # (Auto) (0.1-1.2) X10*3/uL Eos # (Auto) (0.0-0.4) X10*3/uL Baso # (Auto) (0.0-0.2) X10*3/uL Abs Immat Gran (auto) (0.00-0.03) X10*3/uL Absolute Neuts (auto) (2.0-8.3) x10*3/uL Absolute Nucleated RBC (0.0-0.012) X10*3/uL Nucleated RBC % (auto) (0.0-0.2) /100WBC PT (10.0-13.1) SEC INR (0.9-1.1) Sodium (135-145) mmol/L Potassium (3.3-5.1) mmol/L Chloride (96-108) mmol/L Carbon Dioxide (22-29) mmol/L Anion Gap (12-20) BUN (9-16) mg/dL Creatinine (0.5-1.4) mg/dL Estim Creat Clear Calc Estimated GFR Random Glucose (60-115) mg/dL Calcium (8.4-10.2) mg/dL Total Bilirubin (0.0-1.0) mg/dL AST (5-31) U/L ALT (0-31) U/L Alkaline Phosphatase (39-117) U/L Total Protein (6.5-8.0) g/dL Albumin (3.5-5.0) g/dL COVID-19 ([facility]) Negative (Negative) COVID-19 Clin Com See Note ECG Data Attestation: I personally reviewed and interpreted this ECG as follows: Prior ECG tracings: available for review Interpretation: Normal sinus rhythm, HR-77, no STEMI, DE/QRS/QTC are within normal limits. Discharge Plan Discharge Clinical Impression: Abdominal pain, Nausea and vomiting Patient Disposition: Still a Patient Prescriptions: No Action albuterol sulfate [Ventolin HFA] 90 mcg/actuation HFA aerosol inhaler 1 puff PO Q6H PRN (Reason: shortness of breath or wheezing) Qty: 18 3RF Spiriva with HandiHaler 18 mcg capsule, w/inhalation device 1 cap inhalation DAILY 30 Days Qty: 30 5RF Rx Instructions: puncture 1 cap using device; one dose = 2 inhalations ibuprofen 600 mg tablet 600 mg PO Q8H PRN (Reason: pain) 30 Days Qty: 90 1RF Rx Instructions: take with food dicyclomine 10 mg capsule 10 mg PO QID Qty: 360 0RF simvastatin 40 mg tablet 40 mg PO BEDTIME Qty: 30 1RF lisinopril 10 mg tablet 10 mg PO DAILY Qty: 30 5RF hydroxyzine HCl 50 mg tablet 50 mg PO BEDTIME Qty: 90 1RF metoclopramide HCl [Reglan] 5 mg tablet 5 mg PO .TIDAC 30 Days Qty: 90 3RF pantoprazole 40 mg tablet,delayed release (DR/EC) 40 mg PO DAILY 90 Days Qty: 90 1RF aspirin [Ecotrin Low Strength] 81 mg tablet,delayed release (DR/EC) 81 mg PO DAILY Qty: 30 5RF sucralfate 1 gram tablet 2 g PO DAILY Qty: 60 6RF amoxicillin 500 mg capsule 2,000 mg PO ONCE 1 Days Qty: 4 3RF Rx Instructions: Take 4 capsules 2 hours before procedure escitalopram oxalate 20 mg tablet 20 mg PO DAILY 90 Days Qty: 90 1RF cyclobenzaprine 5 mg tablet 5 mg PO TID PRN (Reason: muscle spasm) 30 Days Qty: 90 1RF lorazepam 1 mg tablet 1 mg PO BID PRN (Reason: anxiety) 28 Days Qty: 56 1RF oxycodone 5 mg tablet 5 mg PO .1-2 times daily PRN (Reason: pain) 10 Days Qty: 20 0RF ondansetron 4 mg tablet,disintegrating 4 mg PO Q8H 4 Days Qty: 12 0RF ondansetron 4 mg tablet,disintegrating 4 mg PO Q8H PRN (Reason: nausea and vomiting) Qty: 20 0RF nicotine 21 mg/24 hr patch 24 hour 1 patch transdermal DAILY 7 Days Qty: 7 0RF nicotine 14 mg/24 hr patch 24 hour 1 patch transdermal DAILY 7 Days Qty: 7 0RF nicotine 7 mg/24 hr patch 24 hour 1 patch transdermal Q24H 28 Days Qty: 28 5RF cholecalciferol (vitamin D3) 50 mcg (2,000 unit) capsule 50 mcg PO DAILY 90 Days Qty: 90 3RF Rx Instructions: 1 capsule Orally Once a day solifenacin [Vesicare] 10 mg tablet 10 mg PO DAILY 30 Days Qty: 30 5RF ferrous sulfate [Feosol] 325 mg (65 mg iron) tablet 325 mg PO DAILY 30 Days Qty: 30 5RF nicotine 14 mg/24 hr patch 24 hour 1 patch transdermal DAILY 28 Days Qty: 28 3RF Rx Instructions: 14 mg patch nicotine 14 mg/24 hr patch 24 hour 1 patch transdermal DAILY MDD 1 28 Days Qty: 14 3RF
[2022-02-17 07:37] VITALS: BP 148/62; PULSE 65; RESP 14; TEMP 36.8; O2SAT 96
[2022-02-17 09:43] LABS: Appearance Urine Clear; Color Urine Yellow; Glucose Urine UA Negative (Negative); Leukocyte Esterase Urine Negative (Negative); Nitrite Urine Negative (Negative); UMIC TRIGGER UACC YES; Urine Blood Small (1+) (Negative); Urine Ketones 40 mg/dL (Negative); Urine Protein Negative (Neg-Trace)
[2022-02-17] MEDS: 0.9 % Sodium Chloride 1,000 ML 999 ML IV (09:57)
[2022-02-17 10:31] LABS: WBC Urine 0-5 /HPF (0-5)
[2022-02-17 10:32] LABS: Bacteria Urine None Seen (None Seen); Hyaline Casts Urine 0-2 /LPF (0-2)
[2022-02-17 11:18] VITALS: BP 159/75; PULSE 77; RESP 14; TEMP 37.3; O2SAT 98
== END 2022-02-17 11:27 | disposition home or self-care (01) ==
PROVIDERS: Student in an Organized Health Care Education/Training Program; Emergency Provider Emergency Medicine Emergency Medical Services; PCP Internal Medicine
DX: R10.9 Unspecified abdominal pain (principal); R11.2 Nausea with vomiting, unspecified; Z20.822 Contact with and (suspected) exposure to COVID-19; F17.210 Nicotine dependence, cigarettes, uncomplicated; F12.90 Cannabis use, unspecified, uncomplicated
CPT/HCPCS: 74176; 80053; 81001; 81003; 85025; 85610; 87635; 93005; 96360; 99284; 99285

== ENCOUNTER 2022-04-09 12:32 | Outpatient (REF) | payer MEDICARE, MEDICAID, SELFPAY ==
--- NOTE | ~2022-04-09 | XR_ITS ---
EXAMINATION: XR knee LT 4V CLINICAL INFORMATION: Reason for Exam M25.562 - Pain in left knee COMPARISON: None available at the time of this dictation. TECHNIQUE: frontal, lateral, tunnel and patella sunrise views FINDINGS: BONES: No fracture or dislocation is present. JOINTS: Narrowing of joint spaces and developed osteophytes from the edges of articular surfaces suggest degenerative osteoarthritis. SOFT TISSUE: Normal XR/XR knee LT 4V IMPRESSION: Mild degenerative osteoarthritis.
== END 2022-04-09 12:33 | disposition home or self-care (01) ==
LOC: HO.XRAY 12:32
PROVIDERS: PCP Internal Medicine; Visit Provider Internal Medicine
DX: M25.562 Pain in left knee (principal); M25.462 Effusion, left knee; Z91.81 History of falling
CPT/HCPCS: 73564

== ENCOUNTER → 2022-04-14 10:32 | Outpatient (BNVA) | payer MEDICARE, MEDICAID, SELFPAY | PROVIDERS: PCP Internal Medicine; Visit Provider Internal Medicine | DX: J43.9 Emphysema, unspecified (principal); R91.1 Solitary pulmonary nodule; F17.210 Nicotine dependence, cigarettes, uncomplicated | CPT/HCPCS: 99212 ==

== ENCOUNTER 2022-04-23 08:41 | Outpatient (REF) | payer MEDICARE, MEDICAID, SELFPAY ==
--- NOTE | ~2022-04-23 | CT_ITS ---
EXAMINATION: CT CHEST SCREENING CLINICAL INFORMATION: Nicotine dependence. Current smoker. COMPARISON: 01/11/2021 TECHNIQUE: Multidetector volumetric CT imaging of the chest is performed without contrast using low dose technique. Additional 2D coronal and sagittal reformatted images and axial 3D maximum intensity projection (MIP) images are generated on the CT workstation. This CT examination was performed using dose optimization techniques as appropriate, variously including the following: *Automated exposure control *Adjustment of mA and/or kV according to patient size (this includes techniques or standardized protocols for targeted exams where dose is matched to indication/reason for exam; i.e. extremities or head) *Use of iterative reconstruction technique DLP: 38 mGy-cm FINDINGS: LUNGS: The central airways are patent. Mild centrilobular emphysema. No dense consolidation. Minimal basilar atelectasis. No pneumothorax. There is redemonstration of a left upper lobe nodule measuring 0.8 cm on series 5 image 88. This is unchanged from previous imaging. No new pulmonary nodules are seen. There is a somewhat nodular appearance along the right hemidiaphragm which measures fat attenuation, which could represent hamartoma. This is also unchanged from previous imaging. MEDIASTINUM: Normal heart size. No pericardial effusion. No mediastinal lymphadenopathy. CORONARY ARTERY CALCIFICATION: Severe. PLEURA: There is no pleural effusion. No pleural mass or thickening. AXILLA: No lymphadenopathy. UPPER ABDOMEN: Unremarkable OSSEOUS STRUCTURES: No acute or suspicious osseous abnormality. Mild degenerative changes in the spine. CT/CT lung screening IMPRESSION: 1. Mild emphysema. Unchanged 0.8 cm left upper lobe pulmonary nodule. 2. There is a somewhat nodular appearance along the right hemidiaphragm which measures fat attenuation, which could represent hamartoma. This is also unchanged. ASSESSMENT: Lung-RADS category 2: Benign RECOMMENDATION: Routine annual low-dose CT screening in 12 months.
== END 2022-04-23 08:42 | disposition home or self-care (01) ==
LOC: HO.CT 08:41
PROVIDERS: PCP Internal Medicine; Visit Provider Physician Assistant Medical
DX: Z12.2 Encounter for screening for malignant neoplasm of respiratory organs (principal); F17.210 Nicotine dependence, cigarettes, uncomplicated
CPT/HCPCS: 71271

== ENCOUNTER 2022-04-24 08:45 | Outpatient (REF) | payer MEDICARE, MEDICAID, SELFPAY ==
--- NOTE | 2022-04-24 08:48 | CA_ITS ---
Transthoracic Echocardiogram Patient (Last, First, Middle): Sarah Medina A Gender: Female Date of : 1960 Age: 61 Procedure Date: 04/24/2022 Procedure Type: Transthoracic Echocardiogram Location: OP Height: 157.48 cm Weight: 55.79 kg BSA: 1.55 m2 Heart Rate: bpm BP: 122 / 76 mmHg Intellectual Property Counsel: JEREMIAH Referring MD: Michael Santos MD Armored Cable Machine Operator: Michael Santos MD Symptoms: I34.0 - Nonrheumatic mitral (valve) insufficiency Study Quality: Adequate ECG Rhythm: Sinus Conclusions: - 1. Normal LV systolic function 2. Mildly dilated left atrium 3. Prolapse of the middle posterior scallop with moderately severe eccentric mitral regurgitation 4. Normal RV systolic pressure 5. No gross pericardial effusion Findings Left Ventricle Normal left ventricular size, thickness, and systolic function. The visually estimated ejection fraction is between 65-70%. Spectral Doppler is indicative of a normal filling pattern. Peak GLS is -19.1%, within normal limits Right Ventricle Normal right ventricular cavity size and systolic function. Atria The left atrium is mildly dilated. There is no evidence of interatrial shunt. The right atrium is normal in size. Aortic Valve Normal aortic valve structure and function. There is no aortic valve stenosis. There is no aortic valve regurgitation. Mitral Valve The mitral valve appears myxomatous. There is mild anterior and moderate posterior mitral leaflet thickening. There is moderate posterior mitral leaflet prolapse involving the middle scallop/P2. There is moderate to severe mitral valve regurgitation. The mitral regurgitation jet is directed anteriorly. Pulmonic Valve The pulmonic valve is likely normal. Tricuspid Valve Normal tricuspid valve structure. There is trace tricuspid valve regurgitation. The right ventricular systolic pressure is normal. The right ventricular systolic pressure is 21 mmHg. Normal right atrial pressure. There is no evidence of pulmonary hypertension. Great Vessels All visible segments of the aorta are normal in size. The pulmonary artery was not well visualized. Venous The inferior vena cava is normal in size and collapses greater than 50% with inspiration. Pericardium/Pleural There is no evidence of pericardial effusion. Measurements 2D Linear Measurements IVSd: 0.96 0.6-0.9/0.6-1.0 cm LVIDd: 5.05 3.9-5.3/4.2-5.9 cm LVIDd Index: 3.26 2.4-3.2/2.2-3.1 cm/m2 LVIDs: 3.19 2.0-3.6 cm LVPWd: 0.96 0.7-1.1 cm LA Diam: 4.10 2.7-3.8/3.0-4.0 cm LAIDs Index: 2.65 1.5-2.3 cm/m2 LV Mass: 218.37 67-162/88-224 g LV Mass Index: 140.88 43-95/49-115 g/m2 LVOT Diam: 2.00 3.0+(-)1.3 cm 2D Systolic Function EF 4C: 62.70 >55% EF 2C: 69.40 >55% EF BiP: 66.80 >55% Mitral Valve MV Pk E: 1.38 MV PK A: 0.86 MV Decel Time: 137.00 E/A: 1.60 E'Lateral: 5.98 E'Medial: 6.85 E/E' Med: 20.10 E/E' Lat: 23.10 PHT: 40.00 MVA PHT: 5.50 Decel [place]: 10.10 MR Alias Leonel: 0.37 MR RAD: 1.90 Aortic Valve AoV Pk Leonel: 1.03 AoV Mn Leonel: 0.76 AoV VTI: 0.18 AoV Pk Grad: 4.00 Aov Mn Grad: 3.00 EDNA Cont.VTI: 2.36 LVOT LVOT Pk Leonel: 0.81 LVOT Mn Leonel: 0.45 LVOT VTI: 0.14 LVOT Pk Grad: 3.00 LVOT Mn Grad: 1.00 LVOT Diam: 2.00 LVOT Area: 3.14 Diastolic Function MV Pk E: 1.38 MV Pk A: 0.86 E/A: 1.60 E'Medial: 6.85 E/E' Med: 20.10 E' Laterial: 5.98 E/E' Lat: 23.10 Right Ventricle TAPSE (mm): 18.60 TVS' Leonel: 10.00 Tricuspid Valve TR Pk Leonel: 2.15 TR Pk Grad: 18.00 RA Press: 3.00 RVSP: 21.00 Great Vessels Aorta Sinus of Valsalva: 3.37 2.0-3.[address] Ridge: 2.73 1.7-3.4 cm Ao Asc: 3.20 2.1-3.4 cm Updated in Other Vendor System with Status of Final Michael Santos MD electronically signed on 04/25/2022 9:09:41 AM with status of Final
== END 2022-04-24 08:46 | disposition home or self-care (01) ==
LOC: HO.CT 08:45
PROVIDERS: PCP Internal Medicine; Visit Provider Internal Medicine Cardiovascular Disease
DX: I34.0 Nonrheumatic mitral (valve) insufficiency (principal); F17.210 Nicotine dependence, cigarettes, uncomplicated
CPT/HCPCS: 93306; 93356

== ENCOUNTER 2022-05-02 10:32 | Outpatient (REF) | payer MEDICARE, MEDICAID, SELFPAY ==
[2022-05-02 10:43] LABS: MANUAL DIFF FLAG NO
[2022-05-02 11:02] LABS: Basophils Absolute Auto 0.1 X10*3/uL (0.0-0.2); Basophils Percent Auto 1.1 % (0-2); Eosinophils Absolute Auto 0.2 X10*3/uL (0.0-0.4); Eosinophils Percent Auto 3.3 % (0-4); Hematocrit 43.7 % (37.0-47.0); Imm Gran Abs Auto 0.01 X10*3/uL (0.00-0.03); Imm Gran Pct Auto 0.2 % (0.0-0.4); Lymphocytes Absolute Auto 1.7 X10*3/uL (1.2-4.9); Mean Corpuscular Hemoglobin 26.5 pg (27.0-33.0); Mean Corpuscular Volume 82.8 fL (80.0-98.0); Mean Platelet Volume 8.9 fL (9.4-12.3); Monocytes Absolute Auto 0.5 X10*3/uL (0.1-1.2); Monocytes Percent Auto 8.8 % (2-11); Neutrophils Percent Auto 55.6 % (45-73); Platelet Count 184 X10*3/uL (160-400); Red Blood Count 5.28 X10*6/uL (4.20-5.50); Red Cell Distribution Width 22.2 % (11.0-16.0); White Blood Count 5.5 X10*3/uL (4.8-10.8)
[2022-05-02 11:20] LABS: Estimated Average Glucose 100 mg/dL; Hemoglobin A1c % 5.1 %
[2022-05-02 12:07] LABS: Alanine Aminotransferase 6 U/L (0-31); Albumin Level 3.9 g/dL (3.5-5.0); Alkaline Phosphatase 52 U/L (39-117); Anion Gap 14 (12-20); Aspartate Amino Transferase 13 U/L (5-31); Bilirubin Total 0.4 mg/dL (0.0-1.0); Blood Urea Nitrogen 6 mg/dL (9-16); Carbon Dioxide 26 mmol/L (22-29); Chloride 107 mmol/L (96-108); Cholesterol 168 mg/dL; Estimated Glomerular Filt Rate > 60; Glucose Fasting 109 mg/dL (60-99); HDL Cholesterol 38 mg/dL; Iron 61 mcg/dL (30-160); LDL Cholesterol Calculated 106 mg/dl; Percent Iron Saturation 18 % (15-50); Potassium 3.7 mmol/L (3.3-5.1); Sodium 143 mmol/L (135-145); Total Iron Binding Capacity 339 mcg/dL (228-428); Total Protein 6.2 g/dL (6.5-8.0); Triglycerides 124 mg/dL; Unsaturated Iron Binding 278 ug/dL
[2022-05-02 12:16] LABS: Vitamin D 25-OH Total 32.2 ng/mL (>30)
[2022-05-02 12:53] LABS: Appearance Urine Clear; Color Urine Yellow; Glucose Urine UA Negative (Negative); Leukocyte Esterase Urine Negative (Negative); Nitrite Urine Negative (Negative); Urine Blood Negative (Negative); Urine Ketones Negative (Negative); Urine Protein Negative (Neg-Trace)
== END 2022-05-02 10:33 | disposition home or self-care (01) ==
LOC: HO.LAB 10:32
PROVIDERS: PCP Internal Medicine; Visit Provider Internal Medicine
DX: D50.9 Iron deficiency anemia, unspecified (principal); I10 Essential (primary) hypertension; R30.0 Dysuria; E55.9 Vitamin D deficiency, unspecified; R73.01 Impaired fasting glucose; E78.00 Pure hypercholesterolemia, unspecified
CPT/HCPCS: 36415; 80053; 80061; 81003; 82306; 83036; 83540; 85025

== ENCOUNTER → 2022-06-17 11:50 | Outpatient (BNVA) | payer MEDICARE, MEDICAID, SELFPAY | PROVIDERS: PCP Internal Medicine; Visit Provider Nurse Practitioner | DX: K58.0 Irritable bowel syndrome with diarrhea (principal); K31.84 Gastroparesis; K21.9 Gastro-esophageal reflux disease without esophagitis | CPT/HCPCS: 99212 ==

== ENCOUNTER → 2022-07-16 08:03 | Outpatient (BNVA) | payer MEDICARE, MEDICAID, SELFPAY | PROVIDERS: PCP Internal Medicine; Referring Provider Internal Medicine; Visit Provider Nurse Practitioner | DX: K62.5 Hemorrhage of anus and rectum (principal); K62.9 Disease of anus and rectum, unspecified; K58.0 Irritable bowel syndrome with diarrhea; K21.9 Gastro-esophageal reflux disease without esophagitis; R15.9 Full incontinence of feces | CPT/HCPCS: 99212 ==

== ENCOUNTER 2022-07-19 08:14 | Outpatient (REF) | payer MEDICARE, MEDICAID, SELFPAY ==
--- NOTE | ~2022-07-19 | MM_ITS ---
EXAMINATION: MM SCREENING DIGITAL BREAST TOMOSYNTHESIS, BILATERAL CLINICAL INFORMATION: Screening. Asymptomatic. The lifetime risk of breast cancer based on the Tyrer-Cuzick Model is 6.2%. COMPARISON: Mammography: July 03, 2021 and studies dating back to September 26, 2014 TECHNIQUE: Digital breast tomosynthesis is performed in both the craniocaudal and mediolateral oblique views along with computer-aided detection (CAD). Synthesized 2D images are generated from the tomosynthesis. FINDINGS: There are scattered areas of fibroglandular density (ACR BI-RADS breast composition Category b). There are no significant masses, abnormal calcifications, or other abnormalities. MM/MM tomosynthesis screening BI IMPRESSION: No significant changes from prior exam. ASSESSMENT: BI-RADS 1: Negative RECOMMENDATION: Routine annual mammography screening. This patient's information was entered into a reminder system with a target due date for their next mammogram.
== END 2022-07-19 08:15 | disposition home or self-care (01) ==
LOC: HO.MAMMO 08:14
PROVIDERS: PCP Internal Medicine; Visit Provider Internal Medicine
DX: Z12.31 Encounter for screening mammogram for malignant neoplasm of breast (principal)
CPT/HCPCS: 77063; 77067

== ENCOUNTER 2022-07-22 08:32 | Outpatient (REF) | payer MEDICARE, MEDICAID, SELFPAY ==
[2022-07-22 11:03] LABS: B Type Natriuretic Peptide 27 pg/mL (<100)
== END 2022-07-22 08:33 | disposition home or self-care (01) ==
LOC: HO.LAB 08:32
PROVIDERS: PCP Internal Medicine; Referring Provider Internal Medicine; Visit Provider Internal Medicine Cardiovascular Disease
DX: I34.0 Nonrheumatic mitral (valve) insufficiency (principal); I49.3 Ventricular premature depolarization; R06.02 Shortness of breath
CPT/HCPCS: 36415; 83880; 93005; 99212

== ENCOUNTER 2022-07-23 08:07 | Outpatient (REF) | payer MEDICARE, MEDICAID, SELFPAY ==
[2022-07-23 08:27] LABS: MANUAL DIFF FLAG NO
[2022-07-23 08:46] LABS: Basophils Absolute Auto 0.1 X10*3/uL (0.0-0.2); Basophils Percent Auto 0.9 % (0-2); Eosinophils Absolute Auto 0.2 X10*3/uL (0.0-0.4); Eosinophils Percent Auto 2.9 % (0-4); Hematocrit 44.3 % (37.0-47.0); Hemoglobin 14.7 g/dl (12.0-16.0); Imm Gran Abs Auto 0.03 X10*3/uL (0.00-0.03); Imm Gran Pct Auto 0.5 % (0.0-0.4); Lymphocytes Absolute Auto 1.7 X10*3/uL (1.2-4.9); Lymphocytes Percent Auto 25.7 % (20-40); Mean Corpuscular HGB Conc 33.2 g/dl (31.0-35.0); Mean Corpuscular Hemoglobin 29.6 pg (27.0-33.0); Mean Corpuscular Volume 89.3 fL (80.0-98.0); Mean Platelet Volume 9.2 fL (9.4-12.3); Monocytes Absolute Auto 0.5 X10*3/uL (0.1-1.2); Monocytes Percent Auto 7.1 % (2-11); Neutrophils Absolute Auto 4.1 x10*3/uL (2.0-8.3); Neutrophils Percent Auto 62.9 % (45-73); Platelet Count 176 X10*3/uL (160-400); Red Blood Count 4.96 X10*6/uL (4.20-5.50); Red Cell Distribution Width 15.6 % (11.0-16.0); White Blood Count 6.5 X10*3/uL (4.8-10.8)
[2022-07-23 08:55] LABS: Appearance Urine Clear; Color Urine Yellow; Glucose Urine UA Negative (Negative); Leukocyte Esterase Urine Negative (Negative); Nitrite Urine Negative (Negative); Specific Gravity - Urine 1.015 (1.005-1.025); UMIC TRIGGER UACC YES; Urine Blood Small (1+) (Negative); Urine Ketones Negative (Negative); Urine Protein Negative (Neg-Trace)
[2022-07-23 08:58] LABS: Bacteria Urine None Seen (None Seen); Hyaline Casts Urine 0-2 /LPF (0-2); Squamous Epithelial Cell Urine 0-2 /HPF (0-2); WBC Urine 0-5 /HPF (0-5)
[2022-07-23 09:38] LABS: Alanine Aminotransferase 10 U/L (0-31); Albumin Level 4.1 g/dL (3.5-5.0); Alkaline Phosphatase 79 U/L (39-117); Anion Gap 12 (12-20); Aspartate Amino Transferase 16 U/L (5-31); Bilirubin Total 0.4 mg/dL (0.0-1.0); Blood Urea Nitrogen 14 mg/dL (9-16); Calcium 9.2 mg/dL (8.4-10.2); Carbon Dioxide 28 mmol/L (22-29); Chloride 107 mmol/L (96-108); Cholesterol 159 mg/dL; Estimated Glomerular Filt Rate > 60; Glucose Fasting 120 mg/dL (60-99); HDL Cholesterol 44 mg/dL; LDL Cholesterol Calculated 102 mg/dl; Potassium 4.7 mmol/L (3.3-5.1); Sodium 142 mmol/L (135-145); Total Protein 6.2 g/dL (6.5-8.0); Triglycerides 69 mg/dL
[2022-07-23 09:43] LABS: TSH reflex Free T4 4.03 uIU/mL (0.32-4.0); Vitamin D 25-OH Total 36.8 ng/mL (>30)
[2022-07-23 11:34] LABS: Free T4 (Free Thyroxine) 0.87 ng/dL (0.71-1.85)
== END 2022-07-23 08:08 | disposition home or self-care (01) ==
LOC: HO.LAB 08:07
PROVIDERS: PCP Internal Medicine; Visit Provider Internal Medicine
DX: E78.00 Pure hypercholesterolemia, unspecified (principal); E55.9 Vitamin D deficiency, unspecified; I10 Essential (primary) hypertension
CPT/HCPCS: 36415; 80053; 80061; 81001; 82306; 84439; 84443; 85025

== ENCOUNTER → 2022-07-30 08:07 | Outpatient (BNVA) | payer MEDICARE, MEDICAID, SELFPAY | PROVIDERS: PCP Internal Medicine; Visit Provider Nurse Practitioner | DX: K58.0 Irritable bowel syndrome with diarrhea (principal); F33.9 Major depressive disorder, recurrent, unspecified | CPT/HCPCS: 99212 ==

== ENCOUNTER → 2022-08-05 07:49 | Outpatient (REF) | payer MEDICARE, MEDICAID, SELFPAY ==
--- NOTE | 2022-08-05 07:56 | HM_ITS ---
Conclusion: 1. Patient was monitored for total period of 3 days 2. Baseline was normal sinus rhythm with average heart of 63 beats per minute 3. Frequent sinus bradycardia with 40% of time heart rate below 60 beats per minute with no significant pauses 4. Total of 3.8% of beats being PVCs accounting for frequent PVCs with no significant ventricular tachycardia 5. Occasional PACs noted 6. Patient marked 7 events which correlated with isolated PVCs MTDD
== END ==
LOC: HO.CARD 07:49
PROVIDERS: PCP Internal Medicine; Visit Provider Internal Medicine Cardiovascular Disease
DX: I49.3 Ventricular premature depolarization (principal)
CPT/HCPCS: 93242; 99212

== ENCOUNTER 2022-08-26 08:29 | Emergency (ER) | payer MEDICARE, MEDICAID, SELFPAY ==
[2022-08-26 08:36] VITALS: BP 144/99; PULSE 74; RESP 18; TEMP 36.3; O2SAT 98; BMI 21.9
--- NOTE | 2022-08-26 09:05 | ED.GENADULT ---
HPI - General Adult General Chief complaint: GI Bleed Stated complaint: Rectal bleed/Hemorrhoids? Time Seen by Provider: 08/26/22 09:04 Source: patient Mode of arrival: ambulatory Limitations: no limitations History of Present Illness HPI narrative: Patient is a 62-year-old female with history of fecal incontinence, rectal bleeding, COPD, anemia, GERD, IBS with diarrhea presenting with 4 days bright red blood from rectum as well as some fecal incontinence. She denies any melena. Patient is also tearful and states she has anxiety related to her symptoms. She denies any thoughts of suicidal or homicidal ideation. She reports feeling bloated as well. She was seen by GI on 08/05/2022 shortly after she had started on Lotronex and patient had reported decreased fecal incontinence at that time. Patient denies any abdominal pain, nausea, vomiting, or constipation. She denies any fever, chest pain, shortness of breath, syncope, dizziness or lightheadedness. She denies any recent colonoscopy or endovascular procedures. She states that she was told by GI that she did not have evidence of active rectal prolapse or hemorrhoids at most recent visit. She denies any rectal pain. MD complaint: Bright red blood per rectum Onset (ago): day(s) Associated symptoms: denies other symptoms Treatments prior to arrival: none Related Data Home Medications Medication Instructions Recorded Confirmed fluticasone propionate 50 1 spray intranasal DAILY 06/17/22 08/04/22 mcg/actuation nasal spray,suspension silver sulfadiazine 1 % topical appl topical BID 07/16/22 08/04/22 cream solifenacin 10 mg tablet 10 mg PO DAILY 07/22/22 08/04/22 amoxicillin 500 mg capsule 2,000 mg PO ONCE PRN 08/05/22 Previous Rx's Medication Instructions Recorded nicotine 21 mg/24 hr daily 1 patch transdermal DAILY 7 days 04/19/21 transdermal patch #7 ea tiotropium bromide 18 mcg capsule 1 cap inhalation DAILY 30 days #30 08/26/21 with inhalation device (Spiriva inhalations with HandiHaler) ibuprofen 600 mg tablet 600 mg PO Q8H PRN pain 30 days #90 09/27/21 tabs ondansetron 4 mg disintegrating 4 mg PO Q8H PRN nausea and 12/18/21 tablet vomiting #20 tabs ferrous sulfate 325 mg (65 mg 325 mg PO DAILY 30 days #30 tabs 11/01/22 iron) tablet (Feosol) escitalopram oxalate 20 mg tablet 20 mg PO DAILY 90 days #90 tabs 04/22/22 albuterol sulfate 90 mcg/actuation 1 puff PO Q6H PRN shortness of 06/13/22 aerosol inhaler (Ventolin HFA) breath or wheezing #8.5 grams hydrocortisone 2.5 % topical cream 1 appl LA BID PRN hemorrhoids #30 06/17/22 with perineal applicator grams (Proctosol HC) metoclopramide HCl 5 mg tablet 5 mg PO .TIDAC 30 days #90 tabs 06/17/22 (Reglan) cholecalciferol (vitamin D3) 50 50 mcg PO DAILY 90 days #90 caps 06/20/22 mcg (2,000 unit) capsule cyclobenzaprine 5 mg tablet 5 mg PO TID PRN muscle spasm 30 06/20/22 days #90 tabs hydroxyzine HCl 50 mg tablet 50 mg PO BEDTIME #90 tabs 06/20/22 losartan 25 mg tablet 25 mg PO DAILY 30 days #30 tabs 06/20/22 pantoprazole 40 mg tablet,delayed 40 mg PO DAILY 90 days #90 tabs 07/11/22 release aspirin 81 mg tablet,delayed 81 mg PO DAILY 90 days #90 tabs 07/16/22 release metoprolol succinate 50 mg 50 mg PO DAILY #30 tabs 07/22/22 tablet,extended release 24 hr (Toprol XL) alosetron 0.5 mg tablet (Lotronex) 1 mg PO DAILY #60 tabs 07/30/22 mirtazapine 15 mg tablet 15 mg PO BEDTIME #30 tabs 08/06/22 simvastatin 40 mg tablet 40 mg PO BEDTIME #90 tabs 08/16/22 lorazepam 1 mg tablet 1 mg PO BID PRN anxiety 28 days 08/19/22 #56 tabs oxycodone 5 mg tablet 5 mg PO .1-2 times daily PRN pain 08/21/22 10 days #20 tabs Allergies Allergy/AdvReac Type Severity Reaction Status Date / Time No Known Allergies Allergy Unknown unknown Verified 08/05/22 11:05 [NO KNOWN ALLERGIES] Review of Systems Review of Systems: As per HPI. Yes all other systems are reviewed and are negative Constitutional: Constitutional: Reports as per HPI PMFSH Past Medical History Medical History Allergic rhinitis Anxiety Benign essential hypertension Cervical spondylosis COPD (chronic obstructive pulmonary disease) Depression Early satiety 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 GERD (gastroesophageal reflux disease) History of hepatitis C IV drug user Mitral regurgitation Mitral valve prolapse Nicotine dependence, cigarettes, uncomplicated Nonrheumatic mitral (valve) insufficiency Osteopenia (~2011) Paresthesia of left leg Pulmonary nodule Pure hypercholesterolemia Vitamin D deficiency Surgical History History of colonoscopy (~2017) History of hysteroscopy (~2010) History of liver biopsy (~2009) History of partial colectomy (~2014) Family History Family History Father Internal bleeding Mother Medical history unknown Social History Social History Housing: House Housing Other:: lives alone with her cat Malena Alcohol intake: never Patient Tobacco Use Status: Current everyday Tobacco user Tobacco use type: Cigarette Cigarette Packs Per Day: 0.5 Cigarettes Per Day: 10 Years Smoked: 44 years (onset 15, 1/2-3/4ppd x 44yrs, 28pyh) Smoked in Last 30 Days: Yes e-Cigarette/Vaping Use: Never Used Second Hand Smoke Exposure: Yes Use of substances other than those prescribed or required for medical reasons: Yes Substance Use Type: Marijuana Advance Directives: Yes Advance Directives on File: Yes Advance Directives Date on File: 12/18/21 Patient : No service: No Current occupational status: unemployed Sexual orientation: Straight/Heterosexual Gender identity: Female Cognitive needs: No Hearing needs: No Vision needs: Yes Physical Exam ED Vital Signs: Vital Signs - 24 hr 08/26/22 08:36 Temperature 97.4 F Pulse Rate 74 Respiratory Rate 18 Blood Pressure 144/99 H Pulse Oximetry 98 Oxygen Delivery Method Room Air BMI result Body Mass Index 21.9 Vital signs have been reviewed and appear to be correct. Blood pressure mildly elevated. Heart rate normal. Respiratory rate normal. Temperature normal. Oxygen saturation normal. Const General: cooperative, healthy appearing and no acute distress Orientation/consciousness: oriented to person, oriented to place, oriented to time and patient oriented x3 Limitations: no limitations HENMT Head: Yes normocephalic and Yes atraumatic Ears: external ears normal General nose exam: Normal external nose present Face and sinus: Yes face symmetric Mouth: oropharynx normal and moist mucous membranes Throat: Yes uvula midline Eyes General: appearance normal, both eyes and all related structures Conjunctivae: conjunctivae normal Pupils: Equal, round and reactive pupils present Neck Neck: Yes normal visual inspection and Yes supple Resp Effort & Inspection: normal respiratory effort and able to speak in complete sentences Auscultation: clear to auscultation bilaterally Cardio Rate: regular rate Rhythm: regular rhythm Heart sounds: S1 normal heart sound present and S2 normal heart sound present GI Other: Exam chaperoned by Viola Jones RN Inspection: Yes distended (mildly) Palpation (GI): Soft to palpation, nontender, no guarding, not rigid and No Rebound tenderness present Auscultation: normoactive bowel sounds Rectal Exam - Female: visual inspection normal, decreased sphincter tone, No External hemorrhoid(s) present, No Rectal prolapse, No Anal fissure(s) present, No Laceration(s) present (GI), No Excoriation present (GI), No tenderness and other (brown stool; scant amt of reddish brown drainage noted to pad in underwear) General: Yes no CVA tenderness Back/Spine/Pelvis Back: no CVA tenderness Skin General skin exam: elasticity normal and turgor normal Neuro General: oriented to person, oriented to place, oriented to time, patient oriented x3, moves all extremities, no focal motor deficits and CN's II-XI intact bilaterally Cranial nerves: Yes Equal, round and reactive pupils present Cognition (Neuro): normal cognition Extrem General: Yes full ROM, Yes no pedal edema and Yes no calf tenderness Psych Mental Status: mental status grossly normal Affect: normal affect Thought process: Normal thought process present Course Course Course Narrative: 09:45 CBC unremarkable, H&H is 14.7/42.9. [place] Text message out to Dr. Goodwin from GI. 9:57 Dr. Goodwin feels patient is safe to follow up with GI outpatient. Results discussed with patient, all questions answered and patient is agreeable with plan of care. Medical Decision Making Medical Decision Making MDM Narrative: Patient is a 62-year-old female with history of fecal incontinence, rectal bleeding, COPD, anemia, GERD, IBS with diarrhea presenting with 4 days bright red blood from rectum as well as some fecal incontinence. On exam she is nontoxic appearing, no pallor, awake, A+Ox3, abdomen soft and nontender, no CVA tenderness, scant amount of reddish brown blood on pad in underwear, no gross blood or prolapsed rectum noted on rectal exam. Given reported history, review of EMR and physical exam findings, patient's rectal bleeding is likely related to her chronic conditions. Low suspicion for rectal ulcer or foreign body. Presentation is not consistent with other acute, emergenct causes of upper or lower GI bleeding. No evidence of hemorrhagic shock. Plan: Labs, type and screen Please refer to course for remaining clinical decision making. Differential Diagnosis Differential Diagnoses: The differential diagnosis associated with the presentation includes As above. Admission/Observation Consideration of admission/observation: Escalation of care including admission/observation considered Consult Healthcare Provider Management of the patient was discussed with: Transformation Coach (Dr. Goodwin) Lab Data [facility] Lab Attestation statement: I reviewed the patient's lab results. 08/26/22 09:16 08/26/22 09:16 Labs: Lab Results 08/26/22 08/26/22 08/26/22 Range/Units 09:13 09:15 09:16 WBC 7.0 (4.8-10.8) X10*3/uL RBC 4.77 (4.20-5.50) X10*6/uL Hgb 14.7 (12.0-16.0) g/dl Hct 42.9 (37.0-47.0) % MCV 89.9 (80.0-98.0) fL MCH 30.8 (27.0-33.0) pg MCHC 34.3 (31.0-35.0) g/dl RDW 14.0 (11.0-16.0) % Plt Count 153 L (160-400) X10*3/uL MPV 8.8 L (9.4-12.3) fL Immature Gran % (Auto) 0.6 H (0.0-0.4) % Neut % (Auto) 64.9 (45-73) % Lymph % (Auto) 22.8 (20-40) % [place] % (Auto) 8.1 (2-11) % Eos % (Auto) 2.7 (0-4) % Baso % (Auto) 0.9 (0-2) % Lymph # (Auto) 1.6 (1.2-4.9) X10*3/uL [place] # (Auto) 0.6 (0.1-1.2) X10*3/uL Eos # (Auto) 0.2 (0.0-0.4) X10*3/uL Baso # (Auto) 0.1 (0.0-0.2) X10*3/uL Abs Immat Gran (auto) 0.04 H (0.00-0.03) X10*3/uL Absolute Neuts (auto) 4.6 (2.0-8.3) x10*3/uL Absolute Nucleated RBC 0.000 (0.0-0.012) X10*3/uL Nucleated RBC % (auto) 0.0 (0.0-0.2) /100WBC PT 11.2 (10.0-13.1) SEC INR 1.0 (0.9-1.1) Sodium (135-145) mmol/L Potassium (3.3-5.1) mmol/L Chloride (96-108) mmol/L Carbon Dioxide (22-29) mmol/L Anion Gap (12-20) BUN (9-16) mg/dL Creatinine (0.5-1.4) mg/dL Estim Creat Clear Calc Estimated GFR Random Glucose (60-115) mg/dL Calcium (8.4-10.2) mg/dL Total Bilirubin (0.0-1.0) mg/dL AST (5-31) U/L ALT (0-31) U/L Alkaline Phosphatase (39-117) U/L Total Protein (6.5-8.0) g/dL Albumin (3.5-5.0) g/dL Stool Occult Blood NEGATIVE (NEGATIVE) 08/26/22 Range/Units 09:16 WBC (4.8-10.8) X10*3/uL RBC (4.20-5.50) X10*6/uL Hgb (12.0-16.0) g/dl Hct (37.0-47.0) % MCV (80.0-98.0) fL MCH (27.0-33.0) pg MCHC (31.0-35.0) g/dl RDW (11.0-16.0) % Plt Count (160-400) X10*3/uL MPV (9.4-12.3) fL Immature Gran % (Auto) (0.0-0.4) % Neut % (Auto) (45-73) % Lymph % (Auto) (20-40) % [place] % (Auto) (2-11) % Eos % (Auto) (0-4) % Baso % (Auto) (0-2) % Lymph # (Auto) (1.2-4.9) X10*3/uL [place] # (Auto) (0.1-1.2) X10*3/uL Eos # (Auto) (0.0-0.4) X10*3/uL Baso # (Auto) (0.0-0.2) X10*3/uL Abs Immat Gran (auto) (0.00-0.03) X10*3/uL Absolute Neuts (auto) (2.0-8.3) x10*3/uL Absolute Nucleated RBC (0.0-0.012) X10*3/uL Nucleated RBC % (auto) (0.0-0.2) /100WBC PT (10.0-13.1) SEC INR (0.9-1.1) Sodium 142 (135-145) mmol/L Potassium 3.9 (3.3-5.1) mmol/L Chloride 109 H (96-108) mmol/L Carbon Dioxide 25 (22-29) mmol/L Anion Gap 12 (12-20) BUN 14 (9-16) mg/dL Creatinine 0.75 (0.5-1.4) mg/dL Estim Creat Clear Calc 60.7 Estimated GFR > 60 Random Glucose 112 (60-115) mg/dL Calcium 8.8 (8.4-10.2) mg/dL Total Bilirubin 0.5 (0.0-1.0) mg/dL AST 17 (5-31) U/L ALT 10 (0-31) U/L Alkaline Phosphatase 50 (39-117) U/L Total Protein 6.2 L (6.5-8.0) g/dL Albumin 4.0 (3.5-5.0) g/dL Stool Occult Blood (NEGATIVE) External Record Review External record reviewed: Inpatient record, Office record and Outpatient record Chronic Conditions Patient?s care impacted by: Other Discharge Plan Discharge Clinical Impression: Rectal bleeding Patient Disposition: Home, Self-Care Instructions: Rectal Bleeding (ED) Additional Instructions: You were evaluated in the emergency department today for rectal bleeding. Your evaluation did not show signs medical conditions requiring emergent intervention. You should follow-up with the technology recruiter within 2 days. Please continue to take the medications prescribed to you by your technology recruiter. Return to the emergency department if you develop fever 100.4 ? F or greater, abdominal pain, worsening or uncontrolled bleeding, back or flank pain, dizziness, lightheadedness, shortness of breath, chest pain, or any other concerning symptoms. Prescriptions: No Action Spiriva with HandiHaler 18 mcg capsule, w/inhalation device 1 cap inhalation DAILY 30 Days Qty: 30 5RF Rx Instructions: puncture 1 cap using device; one dose = 2 inhalations ibuprofen 600 mg tablet 600 mg PO Q8H PRN (Reason: pain) 30 Days Qty: 90 1RF Rx Instructions: take with food escitalopram oxalate 20 mg tablet 20 mg PO DAILY 90 Days Qty: 90 1RF albuterol sulfate [Ventolin HFA] 90 mcg/actuation HFA aerosol inhaler 1 puff PO Q6H PRN (Reason: shortness of breath or wheezing) Qty: 8.5 3RF cyclobenzaprine 5 mg tablet 5 mg PO TID PRN (Reason: muscle spasm) 30 Days Qty: 90 1RF losartan 25 mg tablet 25 mg PO DAILY 30 Days Qty: 30 3RF hydroxyzine HCl 50 mg tablet 50 mg PO BEDTIME Qty: 90 1RF cholecalciferol (vitamin D3) 50 mcg (2,000 unit) capsule 50 mcg PO DAILY 90 Days Qty: 90 3RF Rx Instructions: 1 capsule Orally Once a day pantoprazole 40 mg tablet,delayed release (DR/EC) 40 mg PO DAILY 90 Days Qty: 90 1RF aspirin 81 mg tablet,delayed release (DR/EC) 81 mg PO DAILY 90 Days Qty: 90 3RF mirtazapine 15 mg tablet 15 mg PO BEDTIME Qty: 30 3RF simvastatin 40 mg tablet 40 mg PO BEDTIME Qty: 90 1RF lorazepam 1 mg tablet 1 mg PO BID PRN (Reason: anxiety) 28 Days Qty: 56 1RF oxycodone 5 mg tablet 5 mg PO .1-2 times daily PRN (Reason: pain) 10 Days Qty: 20 0RF ondansetron 4 mg tablet,disintegrating 4 mg PO Q8H PRN (Reason: nausea and vomiting) Qty: 20 0RF nicotine 21 mg/24 hr patch 24 hour 1 patch transdermal DAILY 7 Days Qty: 7 0RF ferrous sulfate [Feosol] 325 mg (65 mg iron) tablet 325 mg PO DAILY 30 Days Qty: 30 5RF solifenacin 10 mg tablet 10 mg PO DAILY metoprolol succinate [Toprol XL] 50 mg tablet extended release 24 hr 50 mg PO DAILY Qty: 30 5RF silver sulfadiazine 1 % cream topical BID fluticasone propionate 50 mcg/actuation spray,suspension 1 spray intranasal DAILY hydrocortisone [Proctosol HC] 2.5 % cream with perineal applicator 1 appl LA BID PRN (Reason: hemorrhoids) Qty: 30 0RF metoclopramide HCl [Reglan] 5 mg tablet 5 mg PO .TIDAC 30 Days Qty: 90 6RF alosetron [Lotronex] 0.5 mg tablet 1 mg PO DAILY Qty: 60 3RF amoxicillin 500 mg capsule 2,000 mg PO ONCE PRN Rx Instructions: Take 4 capsules 2 hours before procedure Referrals: [facility] [place] G[facility] [Provider Group]
[2022-08-26 09:23] LABS: MANUAL DIFF FLAG NO
[2022-08-26 09:27] LABS: Basophils Absolute Auto 0.1 X10*3/uL (0.0-0.2); Basophils Percent Auto 0.9 % (0-2); Eosinophils Absolute Auto 0.2 X10*3/uL (0.0-0.4); Eosinophils Percent Auto 2.7 % (0-4); Hematocrit 42.9 % (37.0-47.0); Hemoglobin 14.7 g/dl (12.0-16.0); Imm Gran Abs Auto 0.04 X10*3/uL (0.00-0.03); Imm Gran Pct Auto 0.6 % (0.0-0.4); Lymphocytes Absolute Auto 1.6 X10*3/uL (1.2-4.9); Lymphocytes Percent Auto 22.8 % (20-40); Mean Corpuscular HGB Conc 34.3 g/dl (31.0-35.0); Mean Corpuscular Hemoglobin 30.8 pg (27.0-33.0); Mean Corpuscular Volume 89.9 fL (80.0-98.0); Mean Platelet Volume 8.8 fL (9.4-12.3); Monocytes Absolute Auto 0.6 X10*3/uL (0.1-1.2); Monocytes Percent Auto 8.1 % (2-11); Neutrophils Absolute Auto 4.6 x10*3/uL (2.0-8.3); Neutrophils Percent Auto 64.9 % (45-73); Platelet Count 153 X10*3/uL (160-400); Red Blood Count 4.77 X10*6/uL (4.20-5.50)
[2022-08-26 09:33] LABS: Prothrombin Time 11.2 SEC (10.0-13.1)
[2022-08-26 09:35] LABS: OBS Int Ctl Valid YES; OBS1 NEGATIVE (NEGATIVE)
[2022-08-26 09:47] LABS: Alanine Aminotransferase 10 U/L (0-31); Alkaline Phosphatase 50 U/L (39-117); Anion Gap 12 (12-20); Aspartate Amino Transferase 17 U/L (5-31); Bilirubin Total 0.5 mg/dL (0.0-1.0); Blood Urea Nitrogen 14 mg/dL (9-16); Calcium 8.8 mg/dL (8.4-10.2); Carbon Dioxide 25 mmol/L (22-29); Chloride 109 mmol/L (96-108); Creatinine Clr Calc Pharmacy 60.7; Estimated Glomerular Filt Rate > 60; Glucose Random 112 mg/dL (60-115); Potassium 3.9 mmol/L (3.3-5.1); Sodium 142 mmol/L (135-145); Total Protein 6.2 g/dL (6.5-8.0)
--- NOTE | 2022-08-26 10:31 | PC.NURSE ---
pt very emotional while in ER. tearful. reporting that she has wasted our time. reports she cant stop crying. pt with hx of same. takes remeron. denies SI/SHB. informed this flex o writer operator that she knows she has to get a therapist/psychiatrist.
== END 2022-08-26 10:34 | disposition home or self-care (01) ==
PROVIDERS: Registered Nurse Emergency; Emergency Provider Emergency Medicine Emergency Medical Services; PCP Internal Medicine
DX: K62.5 Hemorrhage of anus and rectum (principal); J44.9 Chronic obstructive pulmonary disease, unspecified; D64.9 Anemia, unspecified; R15.9 Full incontinence of feces; Z86.19 Personal history of other infectious and parasitic diseases
CPT/HCPCS: 36415; 80053; 82272; 85025; 85610; 86850; 86900; 86901; 99283; 99284

== ENCOUNTER → 2022-09-15 14:26 | Outpatient (BNVA) | payer MEDICARE, MEDICAID, SELFPAY | PROVIDERS: PCP Internal Medicine; Referring Provider Internal Medicine; Visit Provider Internal Medicine Cardiovascular Disease | DX: I34.0 Nonrheumatic mitral (valve) insufficiency (principal); R00.1 Bradycardia, unspecified | CPT/HCPCS: 99212 ==

== ENCOUNTER → 2022-09-16 10:15 | Outpatient (BNVA) | payer MEDICARE, MEDICAID, SELFPAY | PROVIDERS: PCP Internal Medicine; Visit Provider Nurse Practitioner | DX: K58.0 Irritable bowel syndrome with diarrhea (principal); K62.9 Disease of anus and rectum, unspecified; K21.9 Gastro-esophageal reflux disease without esophagitis; K31.84 Gastroparesis; R15.9 Full incontinence of feces | CPT/HCPCS: 99212 ==

== ENCOUNTER 2022-09-25 10:35 | Emergency (ER) | payer MEDICARE, MEDICAID, SELFPAY ==
--- NOTE | ~2022-09-25 | CT_ITS ---
EXAMINATION: CT ABDOMEN AND PELVIS WITH CONTRAST CLINICAL INFORMATION: Abdominal and rectal pain, rectal bleeding COMPARISON: 02/17/2022 TECHNIQUE: Multidetector volumetric images were obtained from the superior aspect of the liver through the pubic symphysis following administration 85 mL of Omnipaque 350 intravenous contrast. Sagittal and coronal reformatted images were obtained on the technologist's workstation. Oral contrast: No This CT examination was performed using dose optimization techniques as appropriate, variously including the following: *Automated exposure control *Adjustment of mA and/or kV according to patient size (this includes techniques or standardized protocols for targeted exams where dose is matched to indication/reason for exam; i.e. extremities or head) *Use of iterative reconstruction technique DLP: 326 mGy-cm FINDINGS: LUNG BASES: The visualized lung bases are unremarkable. LIVER, GALLBLADDER, AND BILIARY TREE: The liver is normal in size, shape, and attenuation. No focal hepatic lesion or biliary ductal dilatation is present. The gallbladder is unremarkable with no evidence of radiopaque gallstones, gallbladder wall thickening, or obvious pericholecystic inflammatory changes. PANCREAS: Unremarkable. SPLEEN: Unremarkable. ADRENAL GLANDS: Unremarkable. KIDNEYS AND URETERS: The kidneys are normal in size, shape, and attenuation. No hydronephrosis, hydroureter, or calculi seen. No perinephric stranding. BLADDER: Unremarkable. GASTROINTESTINAL TRACT: The small and large bowel are unremarkable. The appendix is unremarkable. There are well-functioning anastomosis in the rectosigmoid region with no abnormal findings ABDOMINAL WALL: No significant hernia is appreciated. LYMPH NODES: Normal. VASCULAR: Unremarkable. PELVIC VISCERA: Unremarkable. OSSEOUS STRUCTURES: There is no interval change and old compression fracture of L5 CT/CT abdomen pelvis w IV con IMPRESSION: 1. No explanation for abdominal pain or rectal bleeding. 2. Well-functioning anastomosis in the rectosigmoid region. 3. Old compression fracture of L5. Fleischner guidelines were followed.
[2022-09-25 10:37] VITALS: BP 161/89; PULSE 85; RESP 18; TEMP 36.7; O2SAT 98; BMI 22.3
[2022-09-25 10:50] LABS: MANUAL DIFF FLAG NO
[2022-09-25 10:53] LABS: Basophils Absolute Auto 0.1 X10*3/uL (0.0-0.2); Basophils Percent Auto 0.8 % (0-2); Eosinophils Absolute Auto 0.2 X10*3/uL (0.0-0.4); Hematocrit 45.1 % (37.0-47.0); Imm Gran Abs Auto 0.03 X10*3/uL (0.00-0.03); Imm Gran Pct Auto 0.4 % (0.0-0.4); Lymphocytes Absolute Auto 2.4 X10*3/uL (1.2-4.9); Lymphocytes Percent Auto 30.8 % (20-40); Mean Corpuscular HGB Conc 33.3 g/dl (31.0-35.0); Mean Corpuscular Hemoglobin 30.7 pg (27.0-33.0); Mean Corpuscular Volume 92.2 fL (80.0-98.0); Mean Platelet Volume 8.7 fL (9.4-12.3); Monocytes Absolute Auto 0.6 X10*3/uL (0.1-1.2); Monocytes Percent Auto 7.6 % (2-11); Neutrophils Absolute Auto 4.6 x10*3/uL (2.0-8.3); Neutrophils Percent Auto 58.4 % (45-73); Platelet Count 182 X10*3/uL (160-400); Red Blood Count 4.89 X10*6/uL (4.20-5.50); Red Cell Distribution Width 13.8 % (11.0-16.0); White Blood Count 7.9 X10*3/uL (4.8-10.8)
[2022-09-25 11:10] LABS: Alanine Aminotransferase 6 U/L (0-31); Albumin Level 4.3 g/dL (3.5-5.0); Alkaline Phosphatase 53 U/L (39-117); Anion Gap 12 (12-20); Aspartate Amino Transferase 14 U/L (5-31); Bilirubin Total 0.6 mg/dL (0.0-1.0); Blood Urea Nitrogen 11 mg/dL (9-16); Calcium 9.2 mg/dL (8.4-10.2); Carbon Dioxide 29 mmol/L (22-29); Chloride 108 mmol/L (96-108); Creatinine Clr Calc Pharmacy 58.3; Estimated Glomerular Filt Rate > 60; Glucose Random 150 mg/dL (60-115); Potassium 4.4 mmol/L (3.3-5.1); Sodium 145 mmol/L (135-145); Total Protein 7.2 g/dL (6.5-8.0)
[2022-09-25 11:30] VITALS: BP 115/72; PULSE 78; RESP 13; O2SAT 94
--- NOTE | 2022-09-25 11:41 | ED_ITS ---
HPI - General Adult General Chief complaint: Abdominal Pain Stated complaint: blood in rectum / abd pain Time Seen by Provider: 09/25/22 11:31 Source: patient Mode of arrival: ambulatory Limitations: no limitations History of Present Illness HPI narrative: 62 yold male female with pmh of gastritis, hemmhroids, and rectal prolapse presetns to the ED for lower abdominal pain, diarrhea, blood in stool since yesterday. Patient feels something comes out of rectum. Patient denies any vomitting blood, dysuria, hematuria, or recent trauma. Related Data Home Medications Medication Instructions Recorded Confirmed fluticasone propionate 50 1 spray intranasal DAILY 06/17/22 09/15/22 mcg/actuation nasal spray,suspension silver sulfadiazine 1 % topical appl topical BID 07/16/22 09/15/22 cream solifenacin 10 mg tablet 10 mg PO DAILY 07/22/22 09/15/22 amoxicillin 500 mg capsule 2,000 mg PO ONCE PRN 08/05/22 09/15/22 escitalopram oxalate 20 mg tablet 20 mg PO DAILY 09/15/22 09/15/22 Previous Rx's Medication Instructions Recorded nicotine 21 mg/24 hr daily 1 patch transdermal DAILY 7 days 04/19/21 transdermal patch #7 ea tiotropium bromide 18 mcg capsule 1 cap inhalation DAILY 30 days #30 08/26/21 with inhalation device (Spiriva inhalations with HandiHaler) ibuprofen 600 mg tablet 600 mg PO Q8H PRN pain 30 days #90 09/27/21 tabs ondansetron 4 mg disintegrating 4 mg PO Q8H PRN nausea and 12/18/21 tablet vomiting #20 tabs ferrous sulfate 325 mg (65 mg 325 mg PO DAILY 30 days #30 tabs 02/04/22 iron) tablet (Feosol) albuterol sulfate 90 mcg/actuation 1 puff PO Q6H PRN shortness of 06/13/22 aerosol inhaler (Ventolin HFA) breath or wheezing #8.5 grams hydrocortisone 2.5 % topical cream 1 appl WA BID PRN hemorrhoids #30 06/17/22 with perineal applicator grams (Proctosol HC) metoclopramide HCl 5 mg tablet 5 mg PO .TIDAC 30 days #90 tabs 06/17/22 (Reglan) cholecalciferol (vitamin D3) 50 50 mcg PO DAILY 90 days #90 caps 06/20/22 mcg (2,000 unit) capsule cyclobenzaprine 5 mg tablet 5 mg PO TID PRN muscle spasm 30 06/20/22 days #90 tabs hydroxyzine HCl 50 mg tablet 50 mg PO BEDTIME #90 tabs 06/20/22 losartan 25 mg tablet 25 mg PO DAILY 30 days #30 tabs 06/20/22 pantoprazole 40 mg tablet,delayed 40 mg PO DAILY 90 days #90 tabs 07/11/22 release aspirin 81 mg tablet,delayed 81 mg PO DAILY 90 days #90 tabs 07/16/22 release metoprolol succinate 50 mg 50 mg PO DAILY #30 tabs 07/22/22 tablet,extended release 24 hr (Toprol XL) mirtazapine 15 mg tablet 15 mg PO BEDTIME #30 tabs 08/06/22 simvastatin 40 mg tablet 40 mg PO BEDTIME #90 tabs 08/16/22 lorazepam 1 mg tablet 1 mg PO BID PRN anxiety 28 days 08/19/22 #56 tabs alosetron 1 mg tablet (Lotronex) 1 mg PO BID #60 tabs 09/16/22 sucralfate 1 gram tablet (Carafate) 2 g PO QNOON #60 tabs 09/16/22 oxycodone 5 mg tablet 5 mg PO .1-2 times daily PRN pain 09/18/22 10 days #20 tabs docusate sodium 100 mg capsule 100 mg PO BID 7 days #14 caps 09/25/22 (Colace) hydrocortisone acetate 25 mg 25 mg WA BID 7 days #12 ea 09/25/22 rectal suppository (Anusol-HC) Allergies Allergy/AdvReac Type Severity Reaction Status Date / Time No Known Allergies Allergy Unknown unknown Verified 09/16/22 10:27 [NO KNOWN ALLERGIES] Review of Systems Review of Systems: abdominal pain, diarrhea, rectal bleeding, Yes all other systems are reviewed and are negative PMFSH Past Medical History Medical History Allergic rhinitis Anxiety Benign essential hypertension Cervical spondylosis COPD (chronic obstructive pulmonary disease) Depression Early satiety 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 GERD (gastroesophageal reflux disease) History of hepatitis C IV drug user Mitral regurgitation Mitral valve prolapse Nicotine dependence, cigarettes, uncomplicated Nonrheumatic mitral (valve) insufficiency Osteopenia (~2011) Paresthesia of left leg Pulmonary nodule Pure hypercholesterolemia Vitamin D deficiency Surgical History History of colonoscopy (~2017) History of hysteroscopy (~2010) History of liver biopsy (~2009) History of partial colectomy (~2014) Family History Family History Father Internal bleeding Mother Medical history unknown Social History Social History Housing: House Housing Other:: lives alone with her cat Malena Alcohol intake: never Patient Tobacco Use Status: Current everyday Tobacco user Tobacco use type: Cigarette Cigarette Packs Per Day: 0.5 Cigarettes Per Day: 10 Years Smoked: 45 years (onset 15, 1/2-3/4ppd x 44yrs, 28pyh) Smoked in Last 30 Days: Yes e-Cigarette/Vaping Use: Never Used Second Hand Smoke Exposure: Yes Use of substances other than those prescribed or required for medical reasons: Yes Substance Use Type: Marijuana Substance Use Frequency: Occasionally Advance Directives: Yes Advance Directives on File: Yes Advance Directives Date on File: 12/18/21 service: No Current occupational status: unemployed Sexual orientation: Straight/Heterosexual Gender identity: Female Cognitive needs: No Hearing needs: No Vision needs: Yes Physical Exam ED Vital Signs: Vital Signs - 24 hr 09/25/22 10:37 09/25/22 11:30 09/25/22 12:01 Temperature 98.1 F Pulse Rate 85 78 89 Respiratory Rate 18 13 15 Blood Pressure 161/89 H 115/72 145/83 H Pulse Oximetry 98 94 96 Oxygen Delivery Method Room Air Room Air Room Air 09/25/22 14:09 Temperature Pulse Rate 62 Respiratory Rate 16 Blood Pressure 138/77 Pulse Oximetry 94 Oxygen Delivery Method Room Air BMI result Body Mass Index 22.3 Const General: cooperative, healthy appearing, comfortable, no acute distress, well developed, alert, awake and Physically active Orientation/consciousness: oriented to person, oriented to place, oriented to time and patient oriented x3 HENMT Head: Yes normal to inspection, Yes No palpable skull fracture present, Yes normocephalic, Yes atraumatic and No abrasion Eyes General: appearance normal, both eyes and all related structures Neck Neck: Yes normal visual inspection, Yes full ROM, Yes no lymphadenopathy, Yes no meningeal signs, Yes trachea midline, Yes supple, No anterior neck swelling and No tender Chest Chest palpation & inspection: normal inspection of the chest and normal palpation of entire chest wall Resp Effort & Inspection: normal respiratory effort and able to speak in complete sentences Auscultation: clear to auscultation bilaterally Cardio Jugular venous distension: no JVD Heart sounds: S1 normal heart sound present and S2 normal heart sound present GI Other: Rectal exam postive for brown stool. negative for any blood. when patient pushes seem to have healthy pink mild rectal prolapse. Inspection: Yes normal to inspection and No abdominal wall ecchymosis Palpation (GI): Soft to palpation, not firm, nontender, no guarding and not rigid General: No CVA tenderness and Yes no CVA tenderness Back/Spine/Pelvis Back: no CVA tenderness, No CVA tenderness and No back tenderness Skin General skin exam: no rashes or lesions noted and elasticity normal Neuro General: oriented to person, oriented to place, oriented to time, patient oriented x3, gait normal, tone normal, moves all extremities, Normal light touch and pain sensation, no meningeal signs, no focal motor deficits, CN's II-XI intact bilaterally and normal sensation to monofilament Extrem General: Yes normal to inspection and Yes full ROM Psych Appearance: grossly normal, well kempt and not disheveled Course Course Course Narrative: Initial labs normal. Hemoglobin hematocrit normal. Occult stool guaiac negative. Orders CT scan of abdomen. Reevaluation(s) Reevaluation #1: Labs are at baseline normal. CT scan does not show any colitis. Not suspecting GI bleed. History physical exam indicated rectal prolapse. Patient will follow-up with a japanese interpreter. Patient will be discharged with Anusol and Colace. UA negative for UTI. Time: 16:44 Medications Administered Discontinued Medications Generic Name Dose Route Start Last Admin Trade Name Freq PRN Reason Stop Dose Admin Iohexol 85 ml 09/25/22 12:53 09/25/22 12:53 Iohexol 350 Mg/Ml 100 Ml Infus..Btl IV 09/25/22 12:54 85 ml ONCE ONE Administration Medical Decision Making Medical Decision Making [facility] Narrative: 62-year-old female presents to the ED for rectal bleeding, mass at rectum, and slight abdominal discomfort. Patient vital signs are stable. Stool guaiac negative. Rectal exam positive for mild rectal prolapse no bleeding. Stool brown. UA negative for UTI. Abdominal CT scan normal. Differential Diagnosis Differential Diagnoses: The differential diagnosis associated with the presentation includes (GI bleed, rectal bleeding, hemorrhoids, rectal prolapse, colitis,) Admission/Observation Consideration of admission/observation: Escalation of care including admission/observation considered Lab Data [facility] Lab Attestation statement: I reviewed the patient's lab results. 09/25/22 10:47 09/25/22 10:47 Labs: Lab Results 09/25/22 09/25/22 09/25/22 Range/Units 10:47 10:47 11:53 WBC 7.9 (4.8-10.8) X10*3/uL RBC 4.89 (4.20-5.50) X10*6/uL Hgb 15.0 (12.0-16.0) g/dl Hct 45.1 (37.0-47.0) % MCV 92.2 (80.0-98.0) fL MCH 30.7 (27.0-33.0) pg MCHC 33.3 (31.0-35.0) g/dl RDW 13.8 (11.0-16.0) % Plt Count 182 (160-400) X10*3/uL MPV 8.7 L (9.4-12.3) fL Immature Gran % (Auto) 0.4 (0.0-0.4) % Neut % (Auto) 58.4 (45-73) % Lymph % (Auto) 30.8 (20-40) % Hernando % (Auto) 7.6 (2-11) % Eos % (Auto) 2.0 (0-4) % Baso % (Auto) 0.8 (0-2) % Lymph # (Auto) 2.4 (1.2-4.9) X10*3/uL Hernando # (Auto) 0.6 (0.1-1.2) X10*3/uL Eos # (Auto) 0.2 (0.0-0.4) X10*3/uL Baso # (Auto) 0.1 (0.0-0.2) X10*3/uL Abs Immat Gran (auto) 0.03 (0.00-0.03) X10*3/uL Absolute Neuts (auto) 4.6 (2.0-8.3) x10*3/uL Absolute Nucleated RBC 0.000 (0.0-0.012) X10*3/uL Nucleated RBC % (auto) 0.0 (0.0-0.2) /100WBC Sodium 145 (135-145) mmol/L Potassium 4.4 (3.3-5.1) mmol/L Chloride 108 (96-108) mmol/L Carbon Dioxide 29 (22-29) mmol/L Anion Gap 12 (12-20) BUN 11 (9-16) mg/dL Creatinine 0.78 (0.5-1.4) mg/dL Estim Creat Clear Calc 58.3 Estimated GFR > 60 Random Glucose 150 H (60-115) mg/dL Calcium 9.2 (8.4-10.2) mg/dL Total Bilirubin 0.6 (0.0-1.0) mg/dL AST 14 (5-31) U/L ALT 6 (0-31) U/L Alkaline Phosphatase 53 (39-117) U/L Total Protein 7.2 (6.5-8.0) g/dL Albumin 4.3 (3.5-5.0) g/dL Urine Color Urine Appearance Urine pH (5.0-9.0) Ur Specific Livingston (1.005-1.025) Urine Protein (Neg-Trace) mg/dL Urine Glucose (UA) (Negative) mg/dL Urine Ketones (Negative) mg/dL Urine Blood (Negative) Urine Nitrite (Negative) Ur Leukocyte Esterase (Negative) Stool Occult Blood NEGATIVE (NEGATIVE) 09/25/22 Range/Units 14:38 WBC (4.8-10.8) X10*3/uL RBC (4.20-5.50) X10*6/uL Hgb (12.0-16.0) g/dl Hct (37.0-47.0) % MCV (80.0-98.0) fL MCH (27.0-33.0) pg MCHC (31.0-35.0) g/dl RDW (11.0-16.0) % Plt Count (160-400) X10*3/uL MPV (9.4-12.3) fL Immature Gran % (Auto) (0.0-0.4) % Neut % (Auto) (45-73) % Lymph % (Auto) (20-40) % Hernando % (Auto) (2-11) % Eos % (Auto) (0-4) % Baso % (Auto) (0-2) % Lymph # (Auto) (1.2-4.9) X10*3/uL Hernando # (Auto) (0.1-1.2) X10*3/uL Eos # (Auto) (0.0-0.4) X10*3/uL Baso # (Auto) (0.0-0.2) X10*3/uL Abs Immat Gran (auto) (0.00-0.03) X10*3/uL Absolute Neuts (auto) (2.0-8.3) x10*3/uL Absolute Nucleated RBC (0.0-0.012) X10*3/uL Nucleated RBC % (auto) (0.0-0.2) /100WBC Sodium (135-145) mmol/L Potassium (3.3-5.1) mmol/L Chloride (96-108) mmol/L Carbon Dioxide (22-29) mmol/L Anion Gap (12-20) BUN (9-16) mg/dL Creatinine (0.5-1.4) mg/dL Estim Creat Clear Calc Estimated GFR Random Glucose (60-115) mg/dL Calcium (8.4-10.2) mg/dL Total Bilirubin (0.0-1.0) mg/dL AST (5-31) U/L ALT (0-31) U/L Alkaline Phosphatase (39-117) U/L Total Protein (6.5-8.0) g/dL Albumin (3.5-5.0) g/dL Urine Color Yellow Urine Appearance Clear Urine pH 8.0 (5.0-9.0) Ur Specific Living[place] >= 1.030 H (1.005-1.025) Urine Protein Negative (Neg-Trace) mg/dL Urine Glucose (UA) Negative (Negative) mg/dL Urine Ketones Negative (Negative) mg/dL Urine Blood Negative (Negative) Urine Nitrite Negative (Negative) Ur Leukocyte Esterase Negative (Negative) Stool Occult Blood (NEGATIVE) Independent Interpretation I performed an independent interpretation of an: CT Scan Radiology Impression Discussion of test interpretation with radiology: I have reviewed the radiologist's reading. Prescription Management I considered prescription management with: Other (Anusol Colace) Discharge Plan Discharge Clinical Impression: RB (rectal bleeding), Rectal prolapse Patient Disposition: Home, Self-Care Instructions: Rectal Bleeding (ED), Rectal Prolapse (ED) Additional Instructions: Please follow-up with japanese interpreter and surgeon. Also follow up with the primary care provider. Return to the ED for profuse rectal bleeding, rectal pain, large rectal mass, abdominal pain, nausea, vomiting, fever, chills, black stool, or any other concerning symptoms. Your CT scan and labs came back normal Prescriptions: New hydrocortisone acetate [Anusol-HC] 25 mg suppository 25 mg WA BID 7 Days Qty: 12 0RF docusate sodium [Colace] 100 mg capsule 100 mg PO BID 7 Days Qty: 14 0RF No Action Spiriva with HandiHaler 18 mcg capsule, w/inhalation device 1 cap inhalation DAILY 30 Days Qty: 30 5RF Rx Instructions: puncture 1 cap using device; one dose = 2 inhalations ibuprofen 600 mg tablet 600 mg PO Q8H PRN (Reason: pain) 30 Days Qty: 90 1RF Rx Instructions: take with food albuterol sulfate [Ventolin HFA] 90 mcg/actuation HFA aerosol inhaler 1 puff PO Q6H PRN (Reason: shortness of breath or wheezing) Qty: 8.5 3RF cyclobenzaprine 5 mg tablet 5 mg PO TID PRN (Reason: muscle spasm) 30 Days Qty: 90 1RF losartan 25 mg tablet 25 mg PO DAILY 30 Days Qty: 30 3RF hydroxyzine HCl 50 mg tablet 50 mg PO BEDTIME Qty: 90 1RF cholecalciferol (vitamin D3) 50 mcg (2,000 unit) capsule 50 mcg PO DAILY 90 Days Qty: 90 3RF Rx Instructions: 1 capsule Orally Once a day pantoprazole 40 mg tablet,delayed release (DR/EC) 40 mg PO DAILY 90 Days Qty: 90 1RF aspirin 81 mg tablet,delayed release (DR/EC) 81 mg PO DAILY 90 Days Qty: 90 3RF mirtazapine 15 mg tablet 15 mg PO BEDTIME Qty: 30 3RF simvastatin 40 mg tablet 40 mg PO BEDTIME Qty: 90 1RF lorazepam 1 mg tablet 1 mg PO BID PRN (Reason: anxiety) 28 Days Qty: 56 1RF oxycodone 5 mg tablet 5 mg PO .1-2 times daily PRN (Reason: pain) 10 Days Qty: 20 0RF ondansetron 4 mg tablet,disintegrating 4 mg PO Q8H PRN (Reason: nausea and vomiting) Qty: 20 0RF nicotine 21 mg/24 hr patch 24 hour 1 patch transdermal DAILY 7 Days Qty: 7 0RF ferrous sulfate [Feosol] 325 mg (65 mg iron) tablet 325 mg PO DAILY 30 Days Qty: 30 5RF solifenacin 10 mg tablet 10 mg PO DAILY metoprolol succinate [Toprol XL] 50 mg tablet extended release 24 hr 50 mg PO DAILY Qty: 30 5RF silver sulfadiazine 1 % cream topical BID fluticasone propionate 50 mcg/actuation spray,suspension 1 spray intranasal DAILY hydrocortisone [Proctosol HC] 2.5 % cream with perineal applicator 1 appl WA BID PRN (Reason: hemorrhoids) Qty: 30 0RF metoclopramide HCl [Reglan] 5 mg tablet 5 mg PO .TIDAC 30 Days Qty: 90 6RF escitalopram oxalate 20 mg tablet 20 mg PO DAILY amoxicillin 500 mg capsule 2,000 mg PO ONCE PRN Rx Instructions: Take 4 capsules 2 hours before procedure alosetron [Lotronex] 1 mg tablet 1 mg PO BID Qty: 60 6RF sucralfate [Carafate] 1 gram tablet 2 g PO QNOON Qty: 60 3RF Print Language: Dominican
[2022-09-25 12:00] LABS: OBS Int Ctl Valid YES; OBS1 NEGATIVE (NEGATIVE)
[2022-09-25 12:01] VITALS: BP 145/83; PULSE 89; RESP 15; O2SAT 96
[2022-09-25] MEDS: iohexoL 350 MG/ML 100 ML INFUS..BTL 85 ML IV (12:53)
[2022-09-25 14:09] VITALS: BP 138/77; PULSE 62; RESP 16; O2SAT 94
[2022-09-25 14:45] LABS: Appearance Urine Clear; Color Urine Yellow; Glucose Urine UA Negative (Negative); Leukocyte Esterase Urine Negative (Negative); Nitrite Urine Negative (Negative); Specific Gravity - Urine >= 1.030 (1.005-1.025); Urine Blood Negative (Negative); Urine Ketones Negative (Negative); Urine Protein Negative (Neg-Trace)
== END 2022-09-25 17:04 | disposition home or self-care (01) ==
PROVIDERS: Physician Assistant; Emergency Provider Student in an Organized Health Care Education/Training Program; PCP Internal Medicine
DX: K62.5 Hemorrhage of anus and rectum (principal); K62.3 Rectal prolapse; I10 Essential (primary) hypertension; F17.210 Nicotine dependence, cigarettes, uncomplicated; E78.00 Pure hypercholesterolemia, unspecified; Z86.19 Personal history of other infectious and parasitic diseases
CPT/HCPCS: 36415; 74177; 80053; 81003; 82272; 85025; 99284; Q9967

== ENCOUNTER → 2022-10-09 10:41 | Outpatient (BNVA) | payer MEDICARE, MEDICAID, SELFPAY | PROVIDERS: PCP Internal Medicine; Visit Provider Nurse Practitioner | DX: K31.84 Gastroparesis (principal); K21.9 Gastro-esophageal reflux disease without esophagitis; K58.0 Irritable bowel syndrome with diarrhea | CPT/HCPCS: 99212 ==

== ENCOUNTER 2022-10-13 09:33 | Outpatient (AMB) | payer MEDICARE, MEDICAID, SELFPAY ==
[2022-10-13 10:25] VITALS: BP 130/90; PULSE 79; O2SAT 98; BMI 22.4
--- NOTE | 2022-10-13 10:25 | MHC.OFFVIS ---
Intake Vital Signs 10/13/22 10:25 Height 5 ft 2 in Weight 122 lb 5.705 oz BMI 22.4 BP 130/90 H Blood Pressure Location Lt brachial Position Sitting Pulse 79 Pulse Source Pulse Oximeter Pulse Oximetry (%) 98 Oxygen Delivery Method Room Air Intake Visit Reasons: COPD Intake Note: pt is here for follow up and states she has a cough with production,. pt was very distraught when I first put her in the room,, I callded for the number for crisis for her, [facility] crisis number given [phone]. pt will also speak with . Allergies No Known Allergies [NO KNOWN ALLERGIES] Allergy (Unknown, Verified 10/13/22 11:51) unknown Medication List - Last Reconciled 10/13/22 by Zulma Padilla MD albuterol sulfate 90 mcg/actuation (Ventolin HFA) 1 puff PO Q6H PRN alosetron (Lotronex) 1 mg PO BID amoxicillin 2,000 mg PO ONCE PRN aspirin 81 mg PO DAILY 90 days cholecalciferol (vitamin D3) 50 mcg PO DAILY 90 days cyclobenzaprine 5 mg PO TID PRN 30 days escitalopram oxalate 20 mg PO DAILY ferrous sulfate (Feosol) 325 mg PO DAILY 30 days fluticasone propionate 50 mcg/actuation 1 spray intranasal DAILY hydrocortisone 2.5% (Proctosol HC) 1 appl [place] BID PRN hydrocortisone 2.5% (Proctosol HC) 1 appl MI TID hydroxyzine HCl 50 mg PO BEDTIME ibuprofen 600 mg PO Q8H PRN 30 days lorazepam 1 mg PO BID PRN 28 days losartan 25 mg PO DAILY 30 days metoclopramide HCl (Reglan) 5 mg PO .TIDAC 30 days metoprolol succinate ER (Toprol XL) 50 mg PO DAILY mirtazapine 15 mg PO BEDTIME nicotine 1 patch transdermal DAILY 7 days ondansetron 4 mg PO Q8H PRN oxycodone 5 mg PO .1-2 times daily PRN 10 days pantoprazole 40 mg PO DAILY 90 days silver sulfadiazine 1% appl topical BID simvastatin 40 mg PO BEDTIME solifenacin 10 mg PO DAILY sucralfate (Carafate) 4 grams (4 x 1 gram) PO QNOON tiotropium bromide (Spiriva with HandiHaler) 1 cap inhalation DAILY 30 days Do you need a note to return to daycare/school/sports/work: No HPI COPD HPI Details 62 years old very pleasant female is here for her follow-up after 6 months. Breathing status has remained stable except for mild intermittent nasal congestion, and cough. She is on a minimal med regimen including Spiriva HandiHaler and Ventolin as needed. And for nasal congestion uses Flonase 1 spray each nostril daily. Today her main issue was marked degree of anxiety and sadness. She was teary throughout the visit. My medical physics researcher Tori and I had a lengthy conversation with her. Her close friend in May of this year, and she has not been able to overcome. The grief/sadness so for She is the somewhat lonely at home, does not go to the jewish regularly and does not talk to anyone about her issue. 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 GERD (gastroesophageal reflux disease) History of hepatitis C IV drug user Mitral regurgitation Mitral valve prolapse Nicotine dependence, cigarettes, uncomplicated Nonrheumatic mitral (valve) insufficiency Osteopenia (~2011) Paresthesia of left leg Pulmonary nodule Pure hypercholesterolemia Vitamin D deficiency Surgical History History of colonoscopy (~2017) History of hysteroscopy (~2010) History of liver biopsy (~2009) History of partial colectomy (~2014) Family History Father Internal bleeding Mother Medical history unknown Social History Housing: House Housing Other:: lives alone with her cat Malena Alcohol intake: never Patient Tobacco Use Status: Current everyday Tobacco user Tobacco use type: Cigarette Cigarette Packs Per Day: 0.5 Cigarettes Per Day: 10 Years Smoked: 45 years (onset 15, 1/2-3/4ppd x 44yrs, 28pyh) e-Cigarette/Vaping Use: Never Used Second Hand Smoke Exposure: Yes Substance Use Type: Marijuana Advance Directives Date on File: 12/18/21 service: No Current occupational status: unemployed Sexual orientation: Straight/Heterosexual Gender identity: Female Cognitive needs: No Hearing needs: No Vision needs: Yes Female Reproductive History Menstrual Age of Menarche: 14 Review of Systems Const All systems reviewed & are unremarkable except as noted in HPI and below Eyes Reports no additional complaints ENT Reports nasal congestion (Off and on due to allergic rhinitis) Card Denies chest pain at rest, Denies irregular heart rhythm and Denies leg edema Resp Reports as per HPI GI Reports heartburn (Controlled with med) Reports no additional complaints Musc Reports no additional complaints Skin/Breast Reports system reviewed and no additional complaints, except as documented Neuro Reports no additional complaints Psych Reports anxiety and Reports depression (Controlled with med) Endo Reports no additional complaints Jose L/Lymph Reports no additional complaints Physical Exam Vital Signs: Last Vital Signs Pulse 79 10/13/22 10:25 BP 130/90 H 10/13/22 10:25 Pulse Ox 98 10/13/22 10:25 Oxygen Delivery Method Room Air 10/13/22 10:25 BMI result Body Mass Index 22.4 Assessment & Plan Assessment & Plan (1) COPD (chronic obstructive pulmonary disease): Comment: Moderatley Severe COPD RX : SPIRIVA HandiHaler one inh daily is OK. USE Ventolin HFA 2 puffs Q 6 hours only p.r.n. if there is an episode of wheezing or persistent cough. scripts are renewed . Code(s): J44.9 - Chronic obstructive pulmonary disease, unspecified Qualifiers: COPD type: emphysema Emphysema type: unspecified Qualified Code(s): J43.9 - Emphysema, unspecified (2) Allergic rhinitis: Comment: , MILD CHRONIC, RELATIVELY CONTROLLED. TX : Continue to use Flonase 1 spray each nostril daily. May use cetirizine 10 mg, p.r.n., Code(s): J30.9 - Allergic rhinitis, unspecified Qualifiers: Allergic rhinitis trigger: unspecified Allergic rhinitis seasonality: unspecified Qualified Code(s): J30.9 - Allergic rhinitis, unspecified (3) Nicotine dependence, cigarettes, uncomplicated: Comment: (current smoker - onset 15, 1/2-3/4ppd x 45yrs, 28pyh) Advised to quit, or at least cut down. The number of cigarettes Patient is participating in Annual lung screening program. Code(s): F17.210 - Nicotine dependence, cigarettes, uncomplicated Coding Level of Care Code Est Pt Level 3 (10950) Diagnoses COPD (chronic obstructive pulmonary disease) J43.9 COPD type: emphysema Emphysema type: unspecified Allergic rhinitis J30.9 Allergic rhinitis trigger: unspecified Allergic rhinitis seasonality: unspecified Nicotine dependence, cigarettes, uncomplicated F17.210
== END 2022-10-13 11:39 | disposition home or self-care (01) ==
LOC: HO.HPS 10:40
PROVIDERS: PCP Internal Medicine; Visit Provider Internal Medicine
DX: J43.9 Emphysema, unspecified (principal); J30.9 Allergic rhinitis, unspecified; F17.210 Nicotine dependence, cigarettes, uncomplicated
CPT/HCPCS: 99213

== ENCOUNTER → 2022-10-13 10:40 | Outpatient (BNVA) | payer MEDICARE, MEDICAID, SELFPAY | PROVIDERS: PCP Internal Medicine; Visit Provider Internal Medicine | DX: J44.9 Chronic obstructive pulmonary disease, unspecified (principal); J30.9 Allergic rhinitis, unspecified; F41.1 Generalized anxiety disorder; F17.210 Nicotine dependence, cigarettes, uncomplicated; Z79.891 Long term (current) use of opiate analgesic | CPT/HCPCS: 99212 ==

== ENCOUNTER → 2022-10-14 07:34 | Outpatient (REF) | payer MEDICARE, MEDICAID, SELFPAY ==
--- NOTE | 2022-10-14 07:38 | CA_ITS ---
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 Normal LV systolic function with LVEF of 55-60% 2. Mildly dilated left atrium 3. Moderate to severe eccentric mitral regurgitation secondary to posterior mitral leaflet prolapse 4. Normal RV systolic pressure 5. No gross pericardial effusion Findings Left Ventricle Normal left ventricular size, thickness, and systolic function. The visually estimated ejection fraction is between 55-60%. Right Ventricle Normal right ventricular cavity size and systolic function. Atria The left atrium is mildly dilated. There is no evidence of interatrial shunt. The right atrium is normal in size. Aortic Valve Normal aortic valve structure and function. Mitral Valve The mitral valve appears myxomatous. There is moderate anterior and posterior mitral leaflet thickening. There is moderate posterior mitral leaflet prolapse. There is moderate to severe mitral valve regurgitation. The mitral regurgitation jet is directed anteriorly. There is no mitral valve stenosis. Tricuspid Valve Normal tricuspid valve structure. There is mild tricuspid valve regurgitation. The right ventricular systolic pressure is normal. The right ventricular systolic pressure is 29 mmHg. Normal right atrial pressure. There is no evidence of pulmonary hypertension. Great Vessels All visible segments of the aorta are normal in size. The pulmonary artery was not well visualized. Venous The inferior vena cava is normal in size and collapses greater than 50% with inspiration. Pericardium/Pleural There is no evidence of pericardial effusion. Prior Study Comparison No significant change compared to prior study dated: 02/12/2023. Measurements 2D Linear Measurements IVSd: 1.33 0.6-0.9/0.6-1.0 cm LVIDd: 4.61 3.9-5.3/4.2-5.9 cm LVIDd Index: 2.97 2.4-3.2/2.2-3.1 cm/m2 LVIDs: 2.92 2.0-3.6 cm LVPWd: 1.04 0.7-1.1 cm LA Diam: 3.90 2.7-3.8/3.0-4.0 cm LAIDs Index: 2.52 1.5-2.3 cm/m2 LV Mass: 251.78 67-162/88-224 g LV Mass Index: 162.44 43-95/49-115 g/m2 LVOT Diam: 2.10 3.0+(-)1.3 cm 2D Systolic Function EF 4C: 55.70 >55% EF 2C: 56.70 >55% EF BiP: 55.80 >55% Mitral Valve MV Pk E: 1.15 MV PK A: 0.50 MV Decel Time: 168.00 E/A: 2.30 E'Lateral: 5.77 E'Medial: 7.29 E/E' Med: 15.80 E/E' Lat: 19.90 PHT: 49.00 MVA PHT: 4.49 Decel [place]: 6.86 MR Alias Leonel: 0.33 MR RAD: 1.40 Aortic Valve AoV Pk Leonel: 1.01 AoV Mn Leonel: 0.71 AoV VTI: 0.20 AoV Pk Grad: 4.00 Aov Mn Grad: 2.00 EDNA Cont.VTI: 2.80 LVOT LVOT Pk Leonel: 0.72 LVOT Mn Leonel: 0.50 LVOT VTI: 0.17 LVOT Pk Grad: 2.00 LVOT Mn Grad: 1.00 LVOT Diam: 2.10 LVOT Area: 3.46 Diastolic Function MV Pk E: 1.15 MV Pk A: 0.50 E/A: 2.30 E'Medial: 7.29 E/E' Med: 15.80 E' Laterial: 5.77 E/E' Lat: 19.90 Right Ventricle TAPSE (mm): 18.60 TVS' Leonel: 11.20 Tricuspid Valve TR Pk Leonel: 2.54 TR Pk Grad: 26.00 RA Press: 3.00 RVSP: 29.00 Great Vessels Aorta Sinus of Valsalva: 3.01 2.0-3.5 cm Ao Asc: 3.30 2.1-3.4 cm Updated in Other Vendor System with Status of Final Michael Santos MD electronically signed on 10/15/2022 11:55:38 AM with status of Final
== END ==
LOC: HO.CARD 07:34
PROVIDERS: PCP Internal Medicine; Visit Provider Internal Medicine Cardiovascular Disease
DX: I34.0 Nonrheumatic mitral (valve) insufficiency (principal)
CPT/HCPCS: 93306

== ENCOUNTER → 2022-10-14 07:38 | Outpatient (BNV) | payer MEDICARE, MEDICAID, SELFPAY | PROVIDERS: PCP Internal Medicine; Visit Provider Internal Medicine Cardiovascular Disease | DX: I34.0 Nonrheumatic mitral (valve) insufficiency (principal); I34.1 Nonrheumatic mitral (valve) prolapse | CPT/HCPCS: 93306 ==

== ENCOUNTER 2022-10-28 11:57 | Emergency (ER) | payer MEDICARE, MEDICAID, SELFPAY ==
--- NOTE | ~2022-10-28 | XR_ITS ---
EXAMINATION: XR KNEE, RIGHT CLINICAL INFORMATION: Right knee pain status post fall. COMPARISON: None available. TECHNIQUE: Four views of the right knee. FINDINGS: No significant tricompartmental degenerative joint changes are seen. There is no acute fracture or dislocation. There is no joint effusion. Mild to moderate prepatellar soft tissue swelling is seen focally. No radiopaque foreign body. XR/XR knee RT 4V IMPRESSION: Mild to moderate prepatellar soft tissue swelling without acute underlying osseous abnormality. Correlate with physical exam.
[2022-10-28 12:05] VITALS: BP 140/81; PULSE 67; RESP 18; TEMP 36; O2SAT 96; BMI 22.3
--- NOTE | 2022-10-28 12:06 | ED_ITS ---
HPI - General Adult General Chief complaint: Extremity Injury, Lower Stated complaint: R Knee Injury 10/28/22 Related Data Home Medications Medication Instructions Recorded Confirmed silver sulfadiazine 1 % topical appl topical BID 07/16/22 11/11/22 cream amoxicillin 500 mg capsule 2,000 mg PO ONCE PRN 08/05/22 11/11/22 Previous Rx's Medication Instructions Recorded ibuprofen 600 mg tablet 600 mg PO Q8H PRN pain 30 days #90 09/27/21 tabs ondansetron 4 mg disintegrating 4 mg PO Q8H PRN nausea and 12/18/21 tablet vomiting #20 tabs ferrous sulfate 325 mg (65 mg 325 mg PO DAILY 30 days #30 tabs 02/04/22 iron) tablet (Feosol) hydrocortisone 2.5 % topical cream 1 appl AL BID PRN hemorrhoids #30 06/17/22 with perineal applicator grams (Proctosol HC) metoclopramide HCl 5 mg tablet 5 mg PO .TIDAC 30 days #90 tabs 06/17/22 (Reglan) cholecalciferol (vitamin D3) 50 50 mcg PO DAILY 90 days #90 caps 06/20/22 mcg (2,000 unit) capsule cyclobenzaprine 5 mg tablet 5 mg PO TID PRN muscle spasm 30 06/20/22 days #90 tabs pantoprazole 40 mg tablet,delayed 40 mg PO DAILY 90 days #90 tabs 07/11/22 release aspirin 81 mg tablet,delayed 81 mg PO DAILY 90 days #90 tabs 07/16/22 release simvastatin 40 mg tablet 40 mg PO BEDTIME #90 tabs 08/16/22 alosetron 1 mg tablet (Lotronex) 1 mg PO BID #60 tabs 09/16/22 hydrocortisone 2.5 % topical cream 1 appl AL TID hemorrhoids #30 grams 10/09/22 with perineal applicator (Proctosol HC) sucralfate 1 gram tablet (Carafate) 4 g (4 x 1 gram) PO QNOON #120 tabs 10/09/22 escitalopram oxalate 20 mg tablet 20 mg PO DAILY #90 tabs 10/10/22 albuterol sulfate 90 mcg/actuation 1 puff PO Q6H PRN shortness of 10/13/22 aerosol inhaler (Ventolin HFA) breath or wheezing 30 days #8.5 grams tiotropium bromide 18 mcg capsule 1 cap inhalation DAILY copd 30 10/13/22 with inhalation device (Spiriva days #30 inhalations with HandiHaler) diclofenac sodium 1 % topical gel 2 g topical QID PRN pain #100 grams 10/31/22 mirtazapine 30 mg tablet 30 mg PO BEDTIME 90 days #90 tabs 11/11/22 lorazepam 1 mg tablet 1 mg PO BID PRN anxiety 28 days 11/27/22 #56 tabs hydroxyzine HCl 50 mg tablet 50 mg PO BEDTIME #90 tabs 12/19/22 losartan 25 mg tablet 25 mg PO DAILY 30 days #30 tabs 12/19/22 metoprolol succinate 50 mg 50 mg PO DAILY #90 tabs 12/19/22 tablet,extended release 24 hr solifenacin 10 mg tablet 10 mg PO DAILY #90 tabs 12/19/22 fluticasone propionate 50 1 spray intranasal DAILY #16 grams 12/26/22 mcg/actuation nasal spray,suspension oxycodone 5 mg tablet 5 mg PO .1-2 times daily PRN pain 12/26/22 10 days #20 tabs nicotine 21 mg/24 hr daily 1 patch transdermal DAILY 7 days 12/29/22 transdermal patch #28 ea Allergies Allergy/AdvReac Type Severity Reaction Status Date / Time No Known Allergies Allergy Unknown unknown Verified 11/11/22 14:30 [NO KNOWN ALLERGIES] [facility] Past Medical History Medical History Allergic rhinitis Anxiety Benign essential hypertension Cervical spondylosis COPD (chronic obstructive pulmonary disease) Depression Early satiety 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 GERD (gastroesophageal reflux disease) History of hepatitis C IV drug user Mitral regurgitation Mitral valve prolapse Nicotine dependence, cigarettes, uncomplicated Nonrheumatic mitral (valve) insufficiency Osteopenia (~2011) Paresthesia of left leg Pulmonary nodule Pure hypercholesterolemia Vitamin D deficiency Surgical History History of colonoscopy (~2017) History of hysteroscopy (~2010) History of liver biopsy (~2009) History of partial colectomy (~2014) Family History Family History Father Internal bleeding Mother Medical history unknown Social History Social History Housing: House Housing Other:: lives alone with her cat Malena Alcohol intake: former Patient Tobacco Use Status: Current everyday Tobacco user Tobacco use type: Cigarette Cigarette Packs Per Day: 0.5 Cigarettes Per Day: 10 Years Smoked: 44 years (onset 15, 1/2-3/4ppd x 44yrs, 28pyh) Smoked in Last 30 Days: Yes e-Cigarette/Vaping Use: Never Used Second Hand Smoke Exposure: Yes Use of substances other than those prescribed or required for medical reasons: Yes Substance Use Type: Marijuana Advance Directives: Yes Advance Directives on File: Yes Advance Directives Date on File: 12/18/21 service: No Current occupational status: unemployed Sexual orientation: Straight/Heterosexual Gender identity: Female Cognitive needs: No Hearing needs: No Vision needs: Yes Physical Exam ED Vital Signs: BMI result Body Mass Index 22.3 Course Course Course Narrative: 62-year-old female presents for evaluation after a fall. She tripped over her granddaughter's bicycle. The patient and her right knee. She has ecchymosis to the knee, x-ray ordered. She reports striking her head but no loss of consciousness and denies headache. She is not on any anticoagulation Discharge Plan Discharge Clinical Impression: Acute knee pain Patient Disposition: Elopement Prescriptions: No Action ibuprofen 600 mg tablet 600 mg PO Q8H PRN (Reason: pain) 30 Days Qty: 90 1RF Rx Instructions: take with food cyclobenzaprine 5 mg tablet 5 mg PO TID PRN (Reason: muscle spasm) 30 Days Qty: 90 1RF cholecalciferol (vitamin D3) 50 mcg (2,000 unit) capsule 50 mcg PO DAILY 90 Days Qty: 90 3RF Rx Instructions: 1 capsule Orally Once a day pantoprazole 40 mg tablet,delayed release (DR/EC) 40 mg PO DAILY 90 Days Qty: 90 1RF aspirin 81 mg tablet,delayed release (DR/EC) 81 mg PO DAILY 90 Days Qty: 90 3RF simvastatin 40 mg tablet 40 mg PO BEDTIME Qty: 90 1RF escitalopram oxalate 20 mg tablet 20 mg PO DAILY Qty: 90 1RF diclofenac sodium 1 % gel 2 g topical QID PRN (Reason: pain) Qty: 100 1RF Rx Instructions: apply to affected/painful areas up to 4 times a day as needed lorazepam 1 mg tablet 1 mg PO BID PRN (Reason: anxiety) 28 Days Qty: 56 0RF metoprolol succinate 50 mg tablet extended release 24 hr 50 mg PO DAILY Qty: 90 2RF hydroxyzine HCl 50 mg tablet 50 mg PO BEDTIME Qty: 90 1RF losartan 25 mg tablet 25 mg PO DAILY 30 Days Qty: 30 3RF solifenacin 10 mg tablet 10 mg PO DAILY Qty: 90 1RF fluticasone propionate 50 mcg/actuation spray,suspension 1 spray intranasal DAILY Qty: 16 5RF oxycodone 5 mg tablet 5 mg PO .1-2 times daily PRN (Reason: pain) 10 Days Qty: 20 0RF nicotine 21 mg/24 hr patch 24 hour 1 patch transdermal DAILY 7 Days Qty: 28 0RF ondansetron 4 mg tablet,disintegrating 4 mg PO Q8H PRN (Reason: nausea and vomiting) Qty: 20 0RF ferrous sulfate [Feosol] 325 mg (65 mg iron) tablet 325 mg PO DAILY 30 Days Qty: 30 5RF mirtazapine 30 mg tablet 30 mg PO BEDTIME 90 Days Qty: 90 1RF silver sulfadiazine 1 % cream topical BID albuterol sulfate [Ventolin HFA] 90 mcg/actuation HFA aerosol inhaler 1 puff PO Q6H PRN (Reason: shortness of breath or wheezing) 30 Days Qty: 8.5 3RF Spiriva with HandiHaler 18 mcg capsule, w/inhalation device 1 cap inhalation DAILY 30 Days Qty: 30 5RF Rx Instructions: puncture 1 cap using device; one dose = 2 inhalations hydrocortisone [Proctosol HC] 2.5 % cream with perineal applicator 1 appl AL BID PRN (Reason: hemorrhoids) Qty: 30 0RF metoclopramide HCl [Reglan] 5 mg tablet 5 mg PO .TIDAC 30 Days Qty: 90 6RF sucralfate [Carafate] 1 gram tablet 4 g PO QNOON Qty: 120 3RF hydrocortisone [Proctosol HC] 2.5 % cream with perineal applicator 1 appl AL TID Qty: 30 6RF Rx Instructions: BE SURE TO INCLUDE RECTAL APPICATOR!! amoxicillin 500 mg capsule 2,000 mg PO ONCE PRN Rx Instructions: Take 4 capsules 2 hours before procedure alosetron [Lotronex] 1 mg tablet 1 mg PO BID Qty: 60 6RF Discharge Date/Time: 10/28/22 16:26
== END 2022-10-28 16:26 | disposition left against medical advice (07) ==
LOC: HO.ED 16:23
PROVIDERS: Emergency Provider Emergency Medicine; PCP Internal Medicine
DX: M25.561 Pain in right knee (principal); I10 Essential (primary) hypertension; E78.00 Pure hypercholesterolemia, unspecified; F17.210 Nicotine dependence, cigarettes, uncomplicated; F12.90 Cannabis use, unspecified, uncomplicated
CPT/HCPCS: 73564; 99281; 99283

== ENCOUNTER 2022-11-11 14:01 | Outpatient (AMB) | payer MEDICARE, MEDICAID, SELFPAY ==
[2022-11-11 14:05] VITALS: BP 122/80; PULSE 58; O2SAT 94; BMI 22.6
--- NOTE | 2022-11-11 14:05 | A.OFFPC_ITS ---
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 Accompanied by: Self / Same As Patient Allergies No Known Allergies [NO KNOWN ALLERGIES] Allergy (Unknown, Verified 11/11/22 14:30) unknown Medication List - Last Reconciled 11/11/22 by Sarthak Person MD albuterol sulfate 90 mcg/actuation (Ventolin HFA) 1 puff PO Q6H PRN 30 days alosetron (Lotronex) 1 mg PO BID amoxicillin 2,000 mg PO ONCE PRN aspirin 81 mg PO DAILY 90 days cholecalciferol (vitamin D3) 50 mcg PO DAILY 90 days cyclobenzaprine 5 mg PO TID PRN 30 days diclofenac sodium 1% 2 grams topical QID PRN escitalopram oxalate 20 mg PO DAILY ferrous sulfate (Feosol) 325 mg PO DAILY 30 days fluticasone propionate 50 mcg/actuation 1 spray intranasal DAILY hydrocortisone 2.5% (Proctosol HC) 1 appl MA BID PRN hydrocortisone 2.5% (Proctosol HC) 1 appl MA TID hydroxyzine HCl 50 mg PO BEDTIME ibuprofen 600 mg PO Q8H PRN 30 days lorazepam 1 mg PO BID PRN 28 days losartan 25 mg PO DAILY 30 days metoclopramide HCl (Reglan) 5 mg PO .TIDAC 30 days metoprolol succinate ER (Toprol XL) 50 mg PO DAILY mirtazapine 15 mg PO BEDTIME nicotine 1 patch transdermal DAILY 7 days ondansetron 4 mg PO Q8H PRN oxycodone 5 mg PO .1-2 times daily PRN 10 days pantoprazole 40 mg PO DAILY 90 days silver sulfadiazine 1% appl topical BID simvastatin 40 mg PO BEDTIME solifenacin 10 mg PO DAILY sucralfate (Carafate) 4 grams (4 x 1 gram) PO QNOON tiotropium bromide (Spiriva with HandiHaler) 1 cap inhalation DAILY 30 days Tobacco use date assessed: 11/11/22 Dental Screening Dental Screen Date: 11/11/22 Did you have a dental visit in the last 12 months?: No Did you have a dental problem in the last 6 months where you did not have access to dental care?: No Was dental information given to patient?: No HPI 3 month f/u HPI Details Patient comes in today for her follow up visit States that she is still experiencing increased depression lately and has been crying a lot often Went to the ER a couple of months ago for rectal bleeding - was determined that her bleeding was from her prolapse; stool guaiac came out negative She was seen by Dr. Laughlin for her rectal prolapse a couple of weeks later and was instructed on some self care measures to take to help calm down her inflamed rectal/anal mucosa and she will then be reassessed in 3 months time Patient went back to the ER a couple of weeks ago when she fell and hurt her right knee Imaging studies done fortunately revealed no acute injuries on her knee and she states that her knee pain has been slowly improving lately She denies any headaches or dizziness Denies any chest pains, no increased SOB No nausea/vomiting, no abdominal pain Still has frequent bouts of diarrhea and she has been advised by Dr. 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 GERD (gastroesophageal reflux disease) History of hepatitis C IV drug user Mitral regurgitation Mitral valve prolapse Nicotine dependence, cigarettes, uncomplicated Nonrheumatic mitral (valve) insufficiency Osteopenia (~2011) Paresthesia of left leg Pulmonary nodule Pure hypercholesterolemia Vitamin D deficiency Surgical History History of colonoscopy (~2017) History of hysteroscopy (~2010) History of liver biopsy (~2009) History of partial colectomy (~2014) Family History Father Internal bleeding Mother Medical history unknown Social History Housing: House Housing Other:: lives alone with her cat Malena Alcohol intake: never Patient Tobacco Use Status: Current everyday Tobacco user Tobacco use type: Cigarette Cigarette Packs Per Day: 0.5 Cigarettes Per Day: 10 Years Smoked: 44 years (onset 15, 1/2-3/4ppd x 44yrs, 28pyh) e-Cigarette/Vaping Use: Never Used Second Hand Smoke Exposure: Yes Substance Use Type: Marijuana Advance Directives Date on File: 12/18/21 service: No Current occupational status: unemployed Sexual orientation: Straight/Heterosexual Gender identity: Female Cognitive needs: No Hearing needs: No Vision needs: Yes Female Reproductive History Menstrual Age of Menarche: 14 Questionnaire PHQ-9 Over the last 2 weeks, how often have you been bothered by any of the following problems? 1. Little interest or pleasure in doing things: several days 2. Feeling down, depressed, or hopeless: more than half the days 3. Trouble falling or staying asleep, or sleeping too much: several days 4. Feeling tired or having little energy: several days 5. Poor appetite or overeating: more than half the days 6. Feeling bad about yourself - or that you are a failure or have let yourself or your family down: more than half the days 7. Trouble concentrating on things, such as reading the newspaper or watching television: not at all 8. Moving or speaking so slowly that other people could have noticed. Or the opposite - being so fidgety or restless that you have been moving around a lot more than usual: several days 9. Thoughts that you would be better off or of hurting yourself in some way: not at all Total score: 10 Depression Screening Interpretation: Positive Depression Screening Follow-up: Existing condition, In treatment and Change in Medication (dose adjustment) 45970 - PHQ-9 Billing: Yes Source: Developed by Drs. Demar Wolf, Yocasta Slater, Mathew Juarez and colleagues, with an educational mendoza from [employer]. Thrive Questionnaire Date Thrive assessed: 11/11/22 I am a: Patient What is your living situation today?: I have a steady place to live Within the past 12 months, did the food you bought not last and you didn't have the money to get more?: Never true Within the past 12 months, did you worry whether your food would run out before you got money to buy more?: Never true Do you have trouble paying for medicines?: No Do you have trouble getting transportation to medical appointments?: No Do you have trouble paying your heating and electricity bill?: No Do you have trouble taking care of your child, family member or friend?: No Do you have trouble with day-to-day activities such as bathing, preparing meals, shopping, managing finances, etc.?: No Are you currently unemployed and looking for a job?: No Are you interested in more education?: No Please select the resources that you would like help with: None Currently or been in a relationship where the following occur: no concerns reported AUDIT C Alcohol Use Questionnaire (AUDIT-C) 1. How often do you have a drink containing alcohol?: Never 3. How often do you have six or more drinks on one occasion?: Never Total Score: 0 Score Reviewed/Action Taken: Yes CHRISSIE-7 AMB Questionnaire CHRISSIE-7 Date CHRISSIE - 7 assessed: 11/11/22 Feeling nervous, anxious, or on edge: 2 = More than half the days Not being able to stop or control worryin = More than half the days Worrying too much about different things: 2 = More than half the days Trouble relaxin = More than half the days Being so restless that it is hard to sit still: 2 = More than half the days Becoming easily annoyed or irritable: 2 = More than half the days Feeling afraid as if something awful might happen: 2 = More than half the days Total CHRISSIE-7 score (0-4 normal; 5-9 mild; 10-14 moderate; 15-21 severe): 14 Source: Developed by Drs. Demar Wolf, Yocasta Slater, Mathew Juarez and colleagues, with an educational mendoza from [employer]. Review of Systems Const Denies chills, Reports difficulty sleeping (on and off), Reports fatigue, Denies fever(s) and Denies headache(s) ENT Denies dysphagia, Denies dizziness, Denies headache(s) and Denies sore throat Card Denies chest pain, Denies palpitations and Denies dyspnea Resp Reports chest congestion (mild; at times), Reports cough (frequent - coughs up clear phlegm often in the morning), Denies hemoptysis, Denies pain with cough and Denies dyspnea GI Denies abdominal pain, Reports hematochezia (recurrent), Denies constipation, Denies dysphagia, Reports early satiety, Denies heartburn, Reports fecal incontinence (at times), Reports loose stools (recurrent), Denies nausea and Denies vomiting Musc Reports back pain (over the lumbar spine - chronic) and Reports arthralgias Neuro Denies dizziness, Denies headache(s) and Reports paresthesias (in the left leg) Psych Reports anxiety and Reports depression (increasing) Endo Reports fatigue and Denies palpitations Physical exam (Primary Care) Vital Signs: Last Vital Signs Pulse 58 11/11/22 14:05 BP 122/80 11/11/22 14:05 Pulse Ox 94 11/11/22 14:05 Oxygen Delivery Method Room Air 11/11/22 14:05 BMI result Body Mass Index 22.6 Tobacco/Smoking Status: Tobacco use Status Tobacco use date assessed 11/11/22 11/11/22 14:10 Patient Tobacco Use Status Current everyday Tobacco 11/11/22 14:10 Tobacco use type Cigarette 11/11/22 14:10 e-Cigarette/Vaping Use Never Used 11/11/22 14:10 PHQ-9: PHQ-9 Score PHQ-9: Total score 10 11/11/22 14:10 Depression Screening Interpretation: Positive Depression Screening Follow-up: Existing condition, In treatment and Change in Medication (dose adjustment) Thrive Assessment: Date of Thrive Assessment Date Thrive assessed 11/11/22 11/11/22 14:10 Currently or been in a relationship where the following occur: no concerns reported Const General: no acute distress and alert HENMT Throat: Yes posterior oropharynx normal and Yes tonsils normal (no TP congestion noted) Neck Neck: Yes no lymphadenopathy and Yes supple Resp Auscultation: clear to auscultation bilaterally, no rales, rhonchi (occasional) throughout and no wheezes Cardio Rate: regular rate Rhythm: regular rhythm Heart sounds: no murmurs GI Palpation (GI): Soft to palpation, nontender and No hepatosplenomegaly present Auscultation: normal bowel sounds Back/Spine/Pelvis Cervical Spine: Cervical spine tenderness Thoracic/Lumbar Spine: lumbar spinal tenderness Extrem General: Yes no clubbing, cyanosis or edema Assessment and Plan Assessment & Plan (1) Pure hypercholesterolemia: Code(s): E78.00 - Pure hypercholesterolemia, unspecified Plan: Was not able to get her follow up labs done prior to her visit today; patient did have some labs done when she went to the ER a couple of months ago but these were non-fasting and did not include her lipids Reinforced low cholesterol diet Continue Simvastatin 40 mg QD Will recheck labs and fasting lipids in 3 months for follow up - will just have patient use her previous orders (updated) for her next lab draw (2) Benign essential hypertension: Code(s): I10 - Essential (primary) hypertension Plan: Reinforced low sodium diet - goal is systolic BP of at least 120 to 130 mm or less Continue Lisinopril 5 mg QD (3) COPD (chronic obstructive pulmonary disease): Comment: Moderatley Severe COPD RX : SPIRIVA HandiHaler one inh daily is OK. USE Ventolin HFA 2 puffs Q 6 hours only p.r.n. if there is an episode of wheezing or persistent cough. scripts are renewed . Code(s): J44.9 - Chronic obstructive pulmonary disease, unspecified Qualifiers: COPD type: emphysema Emphysema type: unspecified Qualified Code(s): J43.9 - Emphysema, unspecified Plan: Stable - continue Spiriva Handihaler 18 mcg inhale contents of 1 capsule once a day and Ventolin HFA 2 puffs 4 times a day as needed Follow up with pulmonary as scheduled (4) Pulmonary nodule: Comment: (8mm MARIA ELENA nodule remains stable on 2013 LDCT) Code(s): R91.1 - Solitary pulmonary nodule Plan: Follow up with pulmonary as scheduled for continuing surveillance CT lung screening done on 04/23/2022 revealed (+) mild emphysema and unchanged 0.8 cm left upper lobe pulmonary nodule. There is a somewhat nodular appearance along the right hemidiaphragm which measures fat attenuation, which could represent a hamartoma. This is also unchanged. Recommend routine annual low- dose CT screening in 12 months (5) Mitral valve prolapse: Code(s): I34.1 - Nonrheumatic mitral (valve) prolapse Plan: Transesophageal echocardiogram done on 10/03/20 showed normal LV systolic and diastolic function, moderately severe MR and severe mitral prolapse Repeat echocardiogram done in 04/2022 and on 10/14/2022 revealed no significant changes - ?normal LV systolic function, with mildly dilated left atrium, prolapse of the middle posterior scallop with moderately severe eccentric mitral regurgitation, normal RV systolic pressure and no gross pericardial effusion Patient currently has no clinical signs of heart failure although she continues to complain of?some shortness of breath with exertion? Will need endocarditis prophylactic prior to any dental work? Follow up with cardiology as scheduled (6) Impaired fasting glucose: Code(s): R73.01 - Impaired fasting glucose Plan: HgbA1c was normal at 5.1% on her labs done a few months ago; in-office HgbA1c was also normal at 5.7% previously Reinforced low calorie diet (7) Gastroparesis: Comment: Gastric Emptying Study = Abnormal - 13% retention of food by 4 hours. - 10/30/2020) Code(s): K31.84 - Gastroparesis Plan: Follow up with GI as scheduled Patient reminded to eat small frequent feedings instead of eating 3 large meals a day to help minimize some of her GI symptoms Advised that there is currently no effective treatment or medications for gastroparesis Follow-up with GI as scheduled (8) GERD (gastroesophageal reflux disease): Code(s): K21.9 - Gastro-esophageal reflux disease without esophagitis Qualifiers: Esophagitis presence: without esophagitis Qualified Code(s): K21.9 - Gastro-esophageal reflux disease without esophagitis Plan: Dietary restrictions reinforced Continue Pantoprazole 40 mg QD and Sucralfate 2 gm QD at noon (9) Rectal bleeding: Code(s): K62.5 - Hemorrhage of anus and rectum Plan: Is most likely due to her anal/perianal irritation from her frequent bouts of loose stools Colonoscopy was last done in [address] 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 Laughlin on 10/01/22 and was advised that she should be more watchful of her diet and that her frequent loose stools from her dietary indiscretions are what is aggravating her current condition Has been instructed to use Silvadene cream and Canasa suppositories as needed to help calm down/alleviate her chronic anal irritation and she will be seen again in a few months for reassessment (11) Anemia: Code(s): D64.9 - Anemia, unspecified Qualifiers: Anemia type: iron deficiency Iron deficiency anemia type: inadequate dietary iron intake Qualified Code(s): D50.8 - Other iron deficiency anemias Plan: Corrected - H/H was normal on her recent labs from a few months ago Continue FeSO4 325 mg QD Will recheck CBC in 3 months for follow up (12) Facet arthritis of lumbar region: Comment: (+Hx of old L5 compression fracture) Code(s): M47.816 - Spondylosis without myelopathy or radiculopathy, lumbar region Plan: Reinforced activity and weight lifting restrictions to avoid aggravating her lower back Continue Oxycodone 5 mg 1 to 2 times a day as needed for severe pain (13) Cervical spondylosis: Code(s): M47.812 - Spondylosis without myelopathy or radiculopathy, cervical region Plan: Continue Ibuprofen 600 mg TID with food PRN and Cyclobenzaprine 5 mg TID PRN (14) Vitamin D deficiency: Code(s): E55.9 - Vitamin D deficiency, unspecified Plan: Continue Vitamin D3 2000 units QD (15) Osteopenia: Onset Date: ~2011 Comment: (Bone Dexa: T-Score -1.3 lumbar - 12/18/2011) Code(s): M85.80 - Other specified disorders of bone density and structure, unspecified site Qualifiers: Osteopenia location: unspecified Qualified Code(s): M85.80 - Other specified disorders of bone density and structure, unspecified site Plan: BMD last done in 2011 and has not had repeat BMD done since (last one ordered in 2013 was not done for unclear reasons) Will need to get this updated again soon, once her current and more pressing issues (particularly her rectal bleeding) are addressed and controlled (16) Overactive bladder: Code(s): N32.81 - Overactive bladder Plan: Continue Vesicare 10 mg QD - states that Rx has helped a lot with her symptoms (17) Anxiety: Code(s): F41.9 - Anxiety disorder, unspecified Plan: Continue Lorazepam 1 mg BID PRN and Hydroxyzine 50 mg Q HS (18) Depression: Code(s): F32.9 - Major depressive disorder, single episode, unspecified Qualifiers: Depression Type: major depressive disorder Major depression recurrence: recurrent Active/Remission status: currently active Major depression episode severity: unspecified Qualified Code(s): F33.9 - Major depressive disorder, recurrent, unspecified Plan: Continue Escitalopram 20 mg QD Was also started on Mirtazapine 15 mg Q HS by GI previously - will now INCREASE her Mirtazapine to 30 mg Q HS Follow up with psychiatry as scheduled (19) Smoker: Comment: LONG-TIME SMOKER,, EMOTIONALLY NICOTINE DEPENDENT. Again discussed with her in detail and stressed that she should quit completely. She does have Nicotine patch 14mg at home, and is advised to start using it. Again discussed with her about pulmonary nodules, and told her that with continued smoking there is a great risk for this to become neoplastic. Code(s): F17.200 - Nicotine dependence, unspecified, uncomplicated Plan: Counseled again on smoking cessation Plan Follow up in 3 months Medications: Changed From mirtazapine 15 mg PO BEDTIME 30 tabs 3RF F32.9 - Major depressive disorder, single episode, unspecified To mirtazapine 30 mg PO BEDTIME 90 days 90 tabs 1RF F32.9 - Major depressive disorder, single episode, unspecified Coding Level of Care Code Est Pt Level 4 (97146) Diagnoses Pure hypercholesterolemia E78.00 Benign essential hypertension I10 COPD (chronic obstructive pulmonary disease) J43.9 COPD type: emphysema Emphysema type: unspecified Pulmonary nodule R91.1 Mitral valve prolapse I34.1 Impaired fasting glucose R73.01 Gastroparesis K31.84 GERD (gastroesophageal reflux disease) K21.9 Esophagitis presence: without esophagitis Rectal bleeding K62.5 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 Anemia D50.8 Anemia type: iron deficiency Iron deficiency anemia type: inadequate dietary iron intake 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 Cervical spondylosis M47.812 Vitamin D deficiency E55.9 Osteopenia M85.80 Osteopenia location: unspecified Overactive bladder N32.81 Anxiety F41.9 Depression F33.9 Depression Type: major depressive disorder Major depression recurrence: recurrent Active/Remission status: currently active Major depression episode severity: unspecified Smoker F17.200
== END 2022-11-11 14:44 | disposition home or self-care (01) ==
PROVIDERS: Visit Provider Internal Medicine
DX: I10 Essential (primary) hypertension (principal); K21.9 Gastro-esophageal reflux disease without esophagitis; E55.9 Vitamin D deficiency, unspecified; F33.9 Major depressive disorder, recurrent, unspecified; F41.9 Anxiety disorder, unspecified; R91.1 Solitary pulmonary nodule; F17.210 Nicotine dependence, cigarettes, uncomplicated; J43.9 Emphysema, unspecified; E78.00 Pure hypercholesterolemia, unspecified; K31.84 Gastroparesis; D50.8 Other iron deficiency anemias; R73.01 Impaired fasting glucose
CPT/HCPCS: 99214

== ENCOUNTER 2023-01-01 08:54 | Emergency (ER) | payer MEDICARE, MEDICAID, SELFPAY ==
--- NOTE | ~2023-01-01 | CT_ITS ---
EXAMINATION: CT HEAD WITHOUT CONTRAST CLINICAL INFORMATION: Left-sided headache, tingling left arm COMPARISON: CT head on 01/25/2020 and MRI brain on 04/28/2017. TECHNIQUE: Contiguous axial imaging was performed from the skull base to vertex without intravenous administration of contrast. This CT examination was performed using dose optimization techniques as appropriate, variously including the following: *Automated exposure control *Adjustment of mA and/or kV according to patient size (this includes techniques or standardized protocols for targeted exams where dose is matched to indication/reason for exam; i.e. extremities or head) *Use of iterative reconstruction technique DLP: 576.54 mGy-cm FINDINGS: No acute intracranial hemorrhage or infarct. The garcia-white matter differentiation is preserved. No midline shift or hydrocephalus. No acute extra-axial fluid collections. The osseous structures are unremarkable. No orbital pathology. The paranasal sinuses and mastoid air cells are clear. Atherosclerotic calcifications of the bilateral carotid siphons. CT/CT head/brain wo IV con IMPRESSION: No acute intracranial pathology.
[2023-01-01 09:00] VITALS: BP 126/91; PULSE 114; RESP 20; TEMP 36.6; O2SAT 97; BMI 22.1
--- NOTE | 2023-01-01 09:50 | PC.NURSE ---
Patient reports starting on thu she was eating and when she swallowed foam would come back up. Reports waking up around 6:30am having difficulty opening her left eye. Left eye lid swollen. Reports 7/10 left sided headache. Reports difficulty seeing out of left eye- states looks blurey. LASHONDA. Reports history of occular migraines
[2023-01-01 09:54] VITALS: BP 132/95; PULSE 85; RESP 18; O2SAT 96
--- NOTE | 2023-01-01 09:59 | PC.NURSE ---
Left arm/leg weaker than right side- provider aware
--- NOTE | 2023-01-01 10:02 | ECG_ITS ---
Test Reason : SOB Blood Pressure : / mmHG Vent. Rate : 085 BPM Atrial Rate : 085 BPM P-R Int : 190 ms QRS Dur : 098 ms QT Int : 394 ms P-R-T Axes : 095 231 098 degrees QTc Int : 468 ms Suspect limb lead reversal, interpretation assumes no reversal Sinus rhythm with sinus arrhythmia with occasional Premature ventricular complexes Lateral infarct (cited on or before 01-JAN-2023) Abnormal ECG When compared with ECG of 17-FEB-2022 06:07, Premature ventricular complexes are now Present Questionable change in initial forces of Lateral leads Referred By: Alejandra Washington Electronically Signed By:URIEL JONES
--- NOTE | 2023-01-01 10:03 | ED.NEUROSD ---
HPI - Neuro Symptoms/Deficit General Chief Complaint: Neuro Symptoms/Deficit Stated Complaint: left side tingly/ SOB Time Seen by Provider: 01/01/23 09:54 Source: patient Mode of arrival: ambulatory Limitations: no limitations History of Present Illness HPI Narrative: Patient is a 62-year-old female with history of COPD, HTN, mitral valve prolapse, mitral regurgitation, GERD, depression and anxiety presenting to the emergency department with complaint of left-sided headache and numbness/tingling radiating from left side of face down left side of neck to left shoulder and down left arm. Also complains of watery drainage from bilateral eyes. States all symptoms began on Thursday and have been intermittent since. Reports fatigue. Denies any dizziness or lightheadedness. Denies chest pain or shortness of breath increased from baseline. Denies cough or fevers. Onset (ago): day(s) Location: left face and left arm Severity: moderate Quality: tingling and intermittent Relieving factors: none Context: gradual onset On Anticoagulants: No Associated symptoms: headaches Treatments Prior to Arrival: none Related Data Home Medications Medication Instructions Recorded Confirmed silver sulfadiazine 1 % topical appl topical BID 07/16/22 11/11/22 cream amoxicillin 500 mg capsule 2,000 mg PO ONCE PRN 08/05/22 11/11/22 Previous Rx's Medication Instructions Recorded ibuprofen 600 mg tablet 600 mg PO Q8H PRN pain 30 days #90 09/27/21 tabs ondansetron 4 mg disintegrating 4 mg PO Q8H PRN nausea and 12/18/21 tablet vomiting #20 tabs ferrous sulfate 325 mg (65 mg 325 mg PO DAILY 30 days #30 tabs 02/04/22 iron) tablet (Feosol) hydrocortisone 2.5 % topical cream 1 appl KS BID PRN hemorrhoids #30 06/17/22 with perineal applicator grams (Proctosol HC) metoclopramide HCl 5 mg tablet 5 mg PO .TIDAC 30 days #90 tabs 06/17/22 (Reglan) cholecalciferol (vitamin D3) 50 50 mcg PO DAILY 90 days #90 caps 06/20/22 mcg (2,000 unit) capsule cyclobenzaprine 5 mg tablet 5 mg PO TID PRN muscle spasm 30 06/20/22 days #90 tabs pantoprazole 40 mg tablet,delayed 40 mg PO DAILY 90 days #90 tabs 07/11/22 release aspirin 81 mg tablet,delayed 81 mg PO DAILY 90 days #90 tabs 07/16/22 release simvastatin 40 mg tablet 40 mg PO BEDTIME #90 tabs 08/16/22 alosetron 1 mg tablet (Lotronex) 1 mg PO BID #60 tabs 09/16/22 hydrocortisone 2.5 % topical cream 1 appl KS TID hemorrhoids #30 grams 10/09/22 with perineal applicator (Proctosol HC) sucralfate 1 gram tablet (Carafate) 4 g (4 x 1 gram) PO QNOON #120 tabs 10/09/22 escitalopram oxalate 20 mg tablet 20 mg PO DAILY #90 tabs 10/10/22 albuterol sulfate 90 mcg/actuation 1 puff PO Q6H PRN shortness of 10/13/22 aerosol inhaler (Ventolin HFA) breath or wheezing 30 days #8.5 grams tiotropium bromide 18 mcg capsule 1 cap inhalation DAILY copd 30 10/13/22 with inhalation device (Spiriva days #30 inhalations with HandiHaler) diclofenac sodium 1 % topical gel 2 g topical QID PRN pain #100 grams 10/31/22 mirtazapine 30 mg tablet 30 mg PO BEDTIME 90 days #90 tabs 11/11/22 lorazepam 1 mg tablet 1 mg PO BID PRN anxiety 28 days 11/27/22 #56 tabs hydroxyzine HCl 50 mg tablet 50 mg PO BEDTIME #90 tabs 12/19/22 losartan 25 mg tablet 25 mg PO DAILY 30 days #30 tabs 12/19/22 metoprolol succinate 50 mg 50 mg PO DAILY #90 tabs 12/19/22 tablet,extended release 24 hr solifenacin 10 mg tablet 10 mg PO DAILY #90 tabs 12/19/22 fluticasone propionate 50 1 spray intranasal DAILY #16 grams 12/26/22 mcg/actuation nasal spray,suspension oxycodone 5 mg tablet 5 mg PO .1-2 times daily PRN pain 12/26/22 10 days #20 tabs nicotine 21 mg/24 hr daily 1 patch transdermal DAILY 7 days 12/29/22 transdermal patch #28 ea Allergies Allergy/AdvReac Type Severity Reaction Status Date / Time No Known Allergies Allergy Unknown unknown Verified 11/11/22 14:30 [NO KNOWN ALLERGIES] Review of Systems Review of Systems: As per HPI. Yes all other systems are reviewed and are negative Constitutional: Constitutional: Reports as per HPI Neurologic: Denies Abnormal speech present [facility] Past Medical History Medical History Allergic rhinitis Anxiety Benign essential hypertension Cervical spondylosis COPD (chronic obstructive pulmonary disease) Depression Early satiety 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 GERD (gastroesophageal reflux disease) History of hepatitis C IV drug user Mitral regurgitation Mitral valve prolapse Nicotine dependence, cigarettes, uncomplicated Nonrheumatic mitral (valve) insufficiency Osteopenia (~2011) Paresthesia of left leg Pulmonary nodule Pure hypercholesterolemia Vitamin D deficiency Surgical History History of colonoscopy (~2017) History of hysteroscopy (~2010) History of liver biopsy (~2009) History of partial colectomy (~2014) Family History Family History Father Internal bleeding Mother Medical history unknown Social History Social History Housing: House Housing Other:: lives alone with her cat Malena Alcohol intake: former Patient Tobacco Use Status: Current everyday Tobacco user Tobacco use type: Cigarette Cigarette Packs Per Day: 0.5 Cigarettes Per Day: 10 Years Smoked: 44 years (onset 15, 1/2-3/4ppd x 44yrs, 28pyh) Smoked in Last 30 Days: Yes e-Cigarette/Vaping Use: Never Used Second Hand Smoke Exposure: Yes Use of substances other than those prescribed or required for medical reasons: Yes Substance Use Type: Marijuana Advance Directives: Yes Advance Directives on File: Yes Advance Directives Date on File: 12/18/21 service: No Current occupational status: unemployed Sexual orientation: Straight/Heterosexual Gender identity: Female Cognitive needs: No Hearing needs: No Vision needs: Yes Physical Exam Vital Signs: Vital Signs: Last Vital Signs Temp 98.2 F 01/01/23 10:22 Pulse 75 01/01/23 10:22 Resp 15 01/01/23 10:22 BP 124/88 01/01/23 10:22 Pulse Ox 94 01/01/23 10:22 O2 Del Method Room Air 01/01/23 10:22 BMI result Body Mass Index 22.1 Vital signs have been reviewed and appear to be correct. Blood pressure systolic normal, diastolic elevated. Heart rate normal. Respiratory rate normal. Temperature normal. Oxygen saturation normal. Const: General: cooperative, healthy appearing and no acute distress Orientation/consciousness: oriented to person, oriented to place, oriented to time and patient oriented x3 Limitations: no limitations HEENT: Head: Yes normocephalic and Yes atraumatic Ears: external ears normal General nose exam: Normal external nose present Face and sinus: Yes face symmetric Mouth: oropharynx normal and moist mucous membranes Throat: Yes uvula midline Eyes: Visual Tang: normal visual tang by confrontation Alignment and Position: alignment normal and position normal Conjunctivae: conjunctival abnormal bilateral conjunctival injection (mild) diffuse and discharge other (watery) Pupils: Equal, round and reactive pupils present EOM: EOMs intact bilaterally Neck: Neck: Yes normal visual inspection, Yes no meningeal signs and Yes supple Resp: Effort & Inspection: normal respiratory effort and able to speak in complete sentences Auscultation: clear to auscultation bilaterally Cardio: Rate: regular rate Rhythm: regular rhythm Heart sounds: S1 normal heart sound present and S2 normal heart sound present GI: Palpation (GI): Soft to palpation and nontender Auscultation: normoactive bowel sounds : General: Yes no CVA tenderness Back/Spine/Pelvis: Back: no CVA tenderness Skin: General skin exam: elasticity normal and turgor normal Neuro: General: oriented to person, oriented to place, oriented to time, patient oriented x3, tone normal, moves all extremities, Normal light touch and pain sensation, no meningeal signs, no focal motor deficits and CN's II-XI intact bilaterally Cranial nerves: Yes Equal, round and reactive pupils present Cognition (Neuro): normal cognition Speech: No Abnormal speech present Motor exam (neuro): 5/5 motor strength present throughout, Pronator motor function not present, no tremor noted, Normal motor muscle tone present throughout and Motor abnormalities not present Sensory Exam: Normal double simultaneous stimulation for sensation Coordination: [id number] test normal and [id number] test normal Extrem: General: Yes full ROM, Yes no pedal edema and Yes no calf tenderness Psych: Mental Status: mental status grossly normal Affect: normal affect Thought process: Normal thought process present Medical Decision Making Medical Decision Making [facility] Narrative: Patient is a 62-year-old female with history of COPD, HTN, mitral valve prolapse, mitral regurgitation, GERD, depression and anxiety presenting to the emergency department with complaint of left-sided headache and numbness/tingling radiating from left side of face down left side of neck to left shoulder and down left arm. On exam patient is awake, A+Ox3, VS WNL, afebrile, normal neurological exam without focal deficits, physical exam findings as above. Given reported symptoms and physical exam findings, initial differential includes CVA/ICH, ACS, electrolyte abnormality, flu, COVID. Labs notable for no leukocytosis, no anemia, no electrolyte abnormalities, negative troponin. CT notable for no acute intracranial pathology. My interpretation is in agreement with the radiologist's interpretation. UA positive for trace leukocytes, 1+ blood, no bacteria, 6-10 epithelial cells so likely contamination as patient denies any urinary symptoms. EKG shows sinus rhythm, rate of 85 bpm, normal KS and QT intervals. Patient in results and all questions answered. Instructed patient to follow-up with primary care provider. Will refer to Neurology for any ongoing symptoms. Return precautions discussed at bedside. Patient verbalized understanding of and agreement with plan. Differential Diagnosis Differential Diagnoses: The differential diagnosis associated with the presentation includes As per [facility] Admission/Observation Consideration of admission/observation: Escalation of care including admission/observation considered Lab Data [facility] Lab Attestation statement: I reviewed the patient's lab results. As per [facility] 01/01/23 10:14 01/01/23 10:45 Labs: Lab Results 01/01/23 01/01/23 01/01/23 Range/Units 10:14 10:32 10:45 WBC 5.8 (4.8-10.8) X10*3/uL RBC 5.12 (4.20-5.50) X10*6/uL Hgb 15.9 (12.0-16.0) g/dl Hct 45.4 (37.0-47.0) % MCV 88.7 (80.0-98.0) fL MCH 31.1 (27.0-33.0) pg MCHC 35.0 (31.0-35.0) g/dl RDW 12.2 (11.0-16.0) % Plt Count 175 (160-400) X10*3/uL MPV 9.2 L (9.4-12.3) fL Immature Gran % (Auto) 0.3 (0.0-0.4) % Neut % (Auto) 67.1 (45-73) % Lymph % (Auto) 23.1 (20-40) % [place] % (Auto) 7.2 (2-11) % Eos % (Auto) 1.4 (0-4) % Baso % (Auto) 0.9 (0-2) % Lymph # (Auto) 1.3 (1.2-4.9) X10*3/uL [place] # (Auto) 0.4 (0.1-1.2) X10*3/uL Eos # (Auto) 0.1 (0.0-0.4) X10*3/uL Baso # (Auto) 0.1 (0.0-0.2) X10*3/uL Abs Immat Gran (auto) 0.02 (0.00-0.03) X10*3/uL Absolute Neuts (auto) 3.9 (2.0-8.3) x10*3/uL Absolute Nucleated RBC 0.000 (0.0-0.012) X10*3/uL Nucleated RBC % (auto) 0.0 (0.0-0.2) /100WBC PT 11.3 (11.1-13.3) SEC INR 0.9 (0.9-1.1) Sodium 143 (135-145) mmol/L Potassium 3.7 (3.3-5.1) mmol/L Chloride 108 (96-108) mmol/L Carbon Dioxide 23 (22-29) mmol/L Anion Gap 16 (12-20) BUN 11 (9-16) mg/dL Creatinine 0.69 (0.5-1.4) mg/dL Estim Creat Clear Calc 66.0 Estimated GFR > 60 Random Glucose 102 (60-115) mg/dL Calcium 9.3 (8.4-10.2) mg/dL Total Bilirubin 0.5 (0.0-1.0) mg/dL AST 15 (5-31) U/L ALT 5 (0-31) U/L Alkaline Phosphatase 43 (39-117) U/L Troponin I High Sens < 2.7 (<3.5-17.0) ng/L Total Protein 6.6 (6.5-8.0) g/dL Albumin 4.0 (3.5-5.0) g/dL Urine Color Urine Appearance Urine pH (5.0-9.0) Ur Specific [place] (1.005-1.025) Urine Protein (Neg-Trace) mg/dL Urine Glucose (UA) (Negative) mg/dL Urine Ketones (Negative) mg/dL Urine Blood (Negative) Urine Nitrite (Negative) Ur Leukocyte Esterase (Negative) Urine RBC (0-2) /HPF Urine WBC (0-5) /HPF Ur Squamous Epith Cells (0-2) /HPF Urine Bacteria (None Seen) Hyaline Casts (0-2) /LPF COVID-19 (FARZANA) Negative (Negative) COVID-19 Clin Com See Note Influenza Type A (LETI) Negative (Negative) Influenza Type B (LETI) Negative (Negative) Influenza A & B Note See Note 01/01/23 Range/Units 11:00 WBC (4.8-10.8) X10*3/uL RBC (4.20-5.50) X10*6/uL Hgb (12.0-16.0) g/dl Hct (37.0-47.0) % MCV (80.0-98.0) fL MCH (27.0-33.0) pg MCHC (31.0-35.0) g/dl RDW (11.0-16.0) % Plt Count (160-400) X10*3/uL MPV (9.4-12.3) fL Immature Gran % (Auto) (0.0-0.4) % Neut % (Auto) (45-73) % Lymph % (Auto) (20-40) % [place] % (Auto) (2-11) % Eos % (Auto) (0-4) % Baso % (Auto) (0-2) % Lymph # (Auto) (1.2-4.9) X10*3/uL [place] # (Auto) (0.1-1.2) X10*3/uL Eos # (Auto) (0.0-0.4) X10*3/uL Baso # (Auto) (0.0-0.2) X10*3/uL Abs Immat Gran (auto) (0.00-0.03) X10*3/uL Absolute Neuts (auto) (2.0-8.3) x10*3/uL Absolute Nucleated RBC (0.0-0.012) X10*3/uL Nucleated RBC % (auto) (0.0-0.2) /100WBC PT (11.1-13.3) SEC INR (0.9-1.1) Sodium (135-145) mmol/L Potassium (3.3-5.1) mmol/L Chloride (96-108) mmol/L Carbon Dioxide (22-29) mmol/L Anion Gap (12-20) BUN (9-16) mg/dL Creatinine (0.5-1.4) mg/dL Estim Creat Clear Calc Estimated GFR Random Glucose (60-115) mg/dL Calcium (8.4-10.2) mg/dL Total Bilirubin (0.0-1.0) mg/dL AST (5-31) U/L ALT (0-31) U/L Alkaline Phosphatase (39-117) U/L Troponin I High Sens (<3.5-17.0) ng/L Total Protein (6.5-8.0) g/dL Albumin (3.5-5.0) g/dL Urine Color Yellow Urine Appearance Clear Urine pH 6.0 (5.0-9.0) Ur Specific [place] 1.015 (1.005-1.025) Urine Protein Negative (Neg-Trace) mg/dL Urine Glucose (UA) Negative (Negative) mg/dL Urine Ketones Negative (Negative) mg/dL Urine Blood Small (1+) H (Negative) Urine Nitrite Negative (Negative) Ur Leukocyte Esterase Trace H (Negative) Urine RBC 3-5 H (0-2) /HPF Urine WBC 0-5 (0-5) /HPF Ur Squamous Epith Cells 6-10 (0-2) /HPF Urine Bacteria None Seen (None Seen) Hyaline Casts 0-2 (0-2) /LPF COVID-19 (FARZANA) (Negative) COVID-19 Clin Com Influenza Type A (LETI) (Negative) Influenza Type B (LETI) (Negative) Influenza A & B Note Independent Interpretation I performed an independent interpretation of an: EKG and CT Scan Interpretation: EKG shows sinus rhythm, rate of 85 bpm, normal KS and QT intervals. No acute intracranial pathology on head CT Radiology Impression Discussion of test interpretation with radiology: I have reviewed the radiologist's reading. Radiologist Impression: CT/CT head/brain wo IV con IMPRESSION: No acute intracranial pathology. External Record Review External record reviewed: Inpatient record, Office record and Outpatient record Prescription Management I considered prescription management with: Pain Medication NIH Stroke Scale Internal: Initial- Upon Arrival Time: 10:08 Level of Consciousness: Alert Level of Consciousness Questions: Answers both questions correctly Level of Consciousness Commands: Performs both tasks correctly Best Gaze: Normal Visual: No visual loss Facial Palsy: Normal Motor Arm (Right): No drift Motor Arm (Left): No drift Motor Leg (Right): No drift Motor Leg (Left): No drift Limb Ataxia: Absent Sensory: Normal Best Language: No aphasia Dysarthia: Normal Extinction and Inattention: No abnormality Score: 0 Discharge Plan Discharge Clinical Impression: Headache Patient Disposition: Home, Self-Care Instructions: Acute Headache (DC) Additional Instructions: You have been evaluated in the emergency department today for headache. Your evaluation did not show evidence of medical conditions requiring emergent intervention at this time, and your pain improved with medication in the ED. We recommend you take Tylenol 650 mg every 6 hours as needed for pain. You were also evaluated for eye redness and watery drainage which is likely related to seasonal allergies. Begin taking [id number] loratadine (Claritin) or cetirizine (Zyrtec) daily. Please follow-up with your primary care provider within 2 days. Return to the emergency department if you experience worsening or uncontrolled pain, vision changes, recurrent vomiting, difficulty with normal activities, abnormal behavior, difficulty walking, numbness, weakness, or any other concerning symptoms. You are being referred to Neurology for any ongoing symptoms, please contact their office to schedule an appointment. Prescriptions: No Action ibuprofen 600 mg tablet 600 mg PO Q8H PRN (Reason: pain) 30 Days Qty: 90 1RF Rx Instructions: take with food cyclobenzaprine 5 mg tablet 5 mg PO TID PRN (Reason: muscle spasm) 30 Days Qty: 90 1RF cholecalciferol (vitamin D3) 50 mcg (2,000 unit) capsule 50 mcg PO DAILY 90 Days Qty: 90 3RF Rx Instructions: 1 capsule Orally Once a day pantoprazole 40 mg tablet,delayed release (DR/EC) 40 mg PO DAILY 90 Days Qty: 90 1RF aspirin 81 mg tablet,delayed release (DR/EC) 81 mg PO DAILY 90 Days Qty: 90 3RF simvastatin 40 mg tablet 40 mg PO BEDTIME Qty: 90 1RF escitalopram oxalate 20 mg tablet 20 mg PO DAILY Qty: 90 1RF diclofenac sodium 1 % gel 2 g topical QID PRN (Reason: pain) Qty: 100 1RF Rx Instructions: apply to affected/painful areas up to 4 times a day as needed lorazepam 1 mg tablet 1 mg PO BID PRN (Reason: anxiety) 28 Days Qty: 56 0RF metoprolol succinate 50 mg tablet extended release 24 hr 50 mg PO DAILY Qty: 90 2RF hydroxyzine HCl 50 mg tablet 50 mg PO BEDTIME Qty: 90 1RF losartan 25 mg tablet 25 mg PO DAILY 30 Days Qty: 30 3RF solifenacin 10 mg tablet 10 mg PO DAILY Qty: 90 1RF fluticasone propionate 50 mcg/actuation spray,suspension 1 spray intranasal DAILY Qty: 16 5RF oxycodone 5 mg tablet 5 mg PO .1-2 times daily PRN (Reason: pain) 10 Days Qty: 20 0RF nicotine 21 mg/24 hr patch 24 hour 1 patch transdermal DAILY 7 Days Qty: 28 0RF ondansetron 4 mg tablet,disintegrating 4 mg PO Q8H PRN (Reason: nausea and vomiting) Qty: 20 0RF ferrous sulfate [Feosol] 325 mg (65 mg iron) tablet 325 mg PO DAILY 30 Days Qty: 30 5RF mirtazapine 30 mg tablet 30 mg PO BEDTIME 90 Days Qty: 90 1RF silver sulfadiazine 1 % cream topical BID albuterol sulfate [Ventolin HFA] 90 mcg/actuation HFA aerosol inhaler 1 puff PO Q6H PRN (Reason: shortness of breath or wheezing) 30 Days Qty: 8.5 3RF Spiriva with HandiHaler 18 mcg capsule, w/inhalation device 1 cap inhalation DAILY 30 Days Qty: 30 5RF Rx Instructions: puncture 1 cap using device; one dose = 2 inhalations hydrocortisone [Proctosol HC] 2.5 % cream with perineal applicator 1 appl KS BID PRN (Reason: hemorrhoids) Qty: 30 0RF metoclopramide HCl [Reglan] 5 mg tablet 5 mg PO .TIDAC 30 Days Qty: 90 6RF sucralfate [Carafate] 1 gram tablet 4 g PO QNOON Qty: 120 3RF hydrocortisone [Proctosol HC] 2.5 % cream with perineal applicator 1 appl KS TID Qty: 30 6RF Rx Instructions: BE SURE TO INCLUDE RECTAL APPICATOR!! amoxicillin 500 mg capsule 2,000 mg PO ONCE PRN Rx Instructions: Take 4 capsules 2 hours before procedure alosetron [Lotronex] 1 mg tablet 1 mg PO BID Qty: 60 6RF Referrals: Navya Berrios MD [Physician] -
[2023-01-01 10:22] VITALS: BP 124/88; PULSE 75; RESP 15; TEMP 36.8; O2SAT 94
[2023-01-01 10:22] LABS: MANUAL DIFF FLAG NO
[2023-01-01 10:29] LABS: Basophils Absolute Auto 0.1 X10*3/uL (0.0-0.2); Basophils Percent Auto 0.9 % (0-2); Eosinophils Absolute Auto 0.1 X10*3/uL (0.0-0.4); Eosinophils Percent Auto 1.4 % (0-4); Hematocrit 45.4 % (37.0-47.0); Hemoglobin 15.9 g/dl (12.0-16.0); Imm Gran Abs Auto 0.02 X10*3/uL (0.00-0.03); Imm Gran Pct Auto 0.3 % (0.0-0.4); Lymphocytes Absolute Auto 1.3 X10*3/uL (1.2-4.9); Lymphocytes Percent Auto 23.1 % (20-40); Mean Corpuscular Hemoglobin 31.1 pg (27.0-33.0); Mean Corpuscular Volume 88.7 fL (80.0-98.0); Mean Platelet Volume 9.2 fL (9.4-12.3); Monocytes Absolute Auto 0.4 X10*3/uL (0.1-1.2); Monocytes Percent Auto 7.2 % (2-11); Neutrophils Absolute Auto 3.9 x10*3/uL (2.0-8.3); Neutrophils Percent Auto 67.1 % (45-73); Platelet Count 175 X10*3/uL (160-400); Red Blood Count 5.12 X10*6/uL (4.20-5.50); Red Cell Distribution Width 12.2 % (11.0-16.0); White Blood Count 5.8 X10*3/uL (4.8-10.8)
[2023-01-01 10:30] LABS: INTERNATIONAL NORM RATIO 0.9 (0.9-1.1); Prothrombin Time 11.3 SEC (11.1-13.3)
[2023-01-01 10:52] LABS: Troponin-I High Sensitivity < 2.7 ng/L (<3.5-17.0)
[2023-01-01 10:53] LABS: IDNOW Serial# 08D9AD1C; Influenza A Negative (Negative); Influenza B2 Negative (Negative)
[2023-01-01 10:54] LABS: COVID-19 Test Negative (Negative); IDNOW Serial# BCCEAD1C
[2023-01-01 11:07] LABS: Alanine Aminotransferase 5 U/L (0-31); Alkaline Phosphatase 43 U/L (39-117); Anion Gap 16 (12-20); Aspartate Amino Transferase 15 U/L (5-31); Bilirubin Total 0.5 mg/dL (0.0-1.0); Blood Urea Nitrogen 11 mg/dL (9-16); Calcium 9.3 mg/dL (8.4-10.2); Carbon Dioxide 23 mmol/L (22-29); Chloride 108 mmol/L (96-108); Estimated Glomerular Filt Rate > 60; Glucose Random 102 mg/dL (60-115); Potassium 3.7 mmol/L (3.3-5.1); Sodium 143 mmol/L (135-145); Total Protein 6.6 g/dL (6.5-8.0)
[2023-01-01 11:24] LABS: Appearance Urine Clear; Color Urine Yellow; Glucose Urine UA Negative (Negative); Leukocyte Esterase Urine Trace (Negative); Nitrite Urine Negative (Negative); Specific Gravity - Urine 1.015 (1.005-1.025); UMIC TRIGGER UACC YES; Urine Blood Small (1+) (Negative); Urine Ketones Negative (Negative); Urine Protein Negative (Neg-Trace)
[2023-01-01 11:42] LABS: Bacteria Urine None Seen (None Seen); Hyaline Casts Urine 0-2 /LPF (0-2); WBC Urine 0-5 /HPF (0-5)
--- NOTE | 2023-01-01 12:36 | PC.NURSE ---
Discharge plan reviewed with patient who verbalized understanding
== END 2023-01-01 12:37 | disposition home or self-care (01) ==
PROVIDERS: Registered Nurse Emergency; Emergency Provider Emergency Medicine; PCP Internal Medicine
DX: R51.9 Headache, unspecified (principal); Z20.822 Contact with and (suspected) exposure to COVID-19; I10 Essential (primary) hypertension; E78.00 Pure hypercholesterolemia, unspecified; D64.9 Anemia, unspecified; F17.210 Nicotine dependence, cigarettes, uncomplicated; R29.700 NIHSS score 0; Z79.899 Other long term (current) drug therapy
CPT/HCPCS: 70450; 80053; 81001; 84484; 85025; 85610; 87502; 87635; 93005; 99284

== ENCOUNTER 2023-01-19 09:36 | Outpatient (AMB) | payer MEDICARE, MEDICAID, SELFPAY ==
[2023-01-19 09:39] VITALS: BP 117/77; PULSE 78; O2SAT 97; BMI 23.0
--- NOTE | 2023-01-19 09:39 | MHC.OFFVIS ---
Intake Vital Signs 01/19/23 09:39 Height 5 ft 2 in Weight 125 lb 10.616 oz BMI 23.0 BP 117/77 Blood Pressure Location Lt brachial Position Sitting Pulse 78 Pulse Source Doppler Pulse Oximetry (%) 97 Oxygen Delivery Method Room Air Intake Visit Reasons: COPD Intake Note: Patient is here for a follow up on COPD Allergies No Known Allergies [NO KNOWN ALLERGIES] Allergy (Unknown, Verified 01/19/23 09:53) unknown Medication List - Last Reconciled 01/19/23 by Zulma Padilla MD albuterol sulfate 90 mcg/actuation (Ventolin HFA) 1 puff PO Q6H PRN 30 days alosetron (Lotronex) 1 mg PO BID amoxicillin 2,000 mg PO ONCE PRN aspirin 81 mg PO DAILY 90 days cholecalciferol (vitamin D3) 50 mcg PO DAILY 90 days cyclobenzaprine 5 mg PO TID PRN 30 days diclofenac sodium 1% 2 grams topical QID PRN escitalopram oxalate 20 mg PO DAILY ferrous sulfate (Feosol) 325 mg PO DAILY 30 days fluticasone propionate 50 mcg/actuation 1 spray intranasal DAILY hydrocortisone 2.5% (Proctosol HC) 1 appl CA BID PRN hydrocortisone 2.5% (Proctosol HC) 1 appl CA TID hydroxyzine HCl 50 mg PO BEDTIME ibuprofen 600 mg PO Q8H PRN 30 days lorazepam 1 mg PO BID PRN 28 days losartan 25 mg PO DAILY 30 days metoclopramide HCl (Reglan) 5 mg PO .TIDAC 30 days metoprolol succinate ER 50 mg PO DAILY mirtazapine 30 mg PO BEDTIME 90 days nicotine 1 patch transdermal DAILY 7 days ondansetron 4 mg PO Q8H PRN oxycodone 5 mg PO .1-2 times daily PRN 10 days pantoprazole 40 mg PO DAILY 90 days silver sulfadiazine 1% appl topical BID simvastatin 40 mg PO BEDTIME solifenacin 10 mg PO DAILY sucralfate (Carafate) 4 grams (4 x 1 gram) PO QNOON tiotropium bromide (Spiriva with HandiHaler) 1 cap inhalation DAILY 30 days Do you need a note to return to daycare/school/sports/work: No HPI COPD HPI Details 62 years old female, long-time smoker, has chronic obstructive pulmonary disease. She is here for. Her routine 3 months follow-up However in the last 1 week she has had symptoms of nasal congestion postnasal discharge and cough. Cough is mostly nonproductive. . She feels achy and tired Does not have any increase in the wheezing or shortness of breath. HER SMOKING IS DOWN TO 5 CIGARETTES A DAY. [facility] Medical History (Updated 01/19/23 @ 10:10 by Zulma Padilla MD) Bronchitis Nicotine dependence, cigarettes, uncomplicated Nonrheumatic mitral (valve) insufficiency Pulmonary nodule History of hepatitis C Osteopenia (~2011) COPD (chronic obstructive pulmonary disease) IV drug user Endocarditis of mitral valve (~11/2017) Mitral valve prolapse Mitral regurgitation Early satiety Paresthesia of left leg Allergic rhinitis Facet arthritis of lumbar region Cervical spondylosis Vitamin D deficiency Pure hypercholesterolemia Benign essential hypertension Depression GERD (gastroesophageal reflux disease) Anxiety Surgical History History of liver biopsy (~2009) History of partial colectomy (~2014) History of hysteroscopy (~2010) History of colonoscopy (~2017) Family History Father Internal bleeding Mother Medical history unknown Social History Housing: House Housing Other:: lives alone with her cat Malena Alcohol intake: former Patient Tobacco Use Status: Current everyday Tobacco user Tobacco use type: Cigarette Cigarette Packs Per Day: 0.5 Cigarettes Per Day: 10 Years Smoked: 45 years (onset 15, 1/2-3/4ppd x 44yrs, 28pyh) e-Cigarette/Vaping Use: Never Used Second Hand Smoke Exposure: Yes Substance Use Type: Marijuana Advance Directives Date on File: 12/18/21 service: No Current occupational status: unemployed Sexual orientation: Straight/Heterosexual Gender identity: Female Cognitive needs: No Hearing needs: No Vision needs: Yes Female Reproductive History Menstrual Age of Menarche: 14 Review of Systems Const All systems reviewed & are unremarkable except as noted in HPI and below Eyes Reports no additional complaints ENT Reports nasal congestion (Off and on due to allergic rhinitis) Card Denies chest pain at rest, Denies irregular heart rhythm and Denies leg edema Resp Reports as per HPI and Reports cough GI Reports heartburn (Controlled with med) Reports no additional complaints Musc Reports no additional complaints Skin/Breast Reports system reviewed and no additional complaints, except as documented Neuro Reports no additional complaints Psych Reports anxiety and Reports depression (Controlled with med) Endo Reports no additional complaints Jose L/Lymph Reports no additional complaints Physical Exam Vital Signs: Last Vital Signs Pulse 78 01/19/23 09:39 BP 117/77 01/19/23 09:39 Pulse Ox 97 01/19/23 09:39 Oxygen Delivery Method Room Air 01/19/23 09:39 BMI result Body Mass Index 23.0 Const General: comfortable, no acute distress, alert and awake Orientation/consciousness: patient oriented x3 HEENT Head: Yes normal to inspection General nose exam: No nasal polyps present and No nasal discharge present Face and sinus: Yes sinuses nontender Mouth: oropharynx normal Throat: Yes posterior oropharynx normal Eyes General: appearance normal, both eyes and all related structures Neck Neck: Yes normal visual inspection, Yes no lymphadenopathy, Yes trachea midline and Yes no JVD Thyroid: Thyroid normal Chest Chest palpation & inspection: normal inspection of the chest, normal palpation of entire chest wall and no tenderness Resp Other: Percussion note hyper-resonant, breath sounds are distant with prolonged expiratory phase. There are a few scattered rhonchi in the upper chest today . Cardio Palpation: normal PMI Rate: regular rate Rhythm: regular rhythm Heart sounds: no gallops and no murmurs GI Palpation (GI): Soft to palpation, nontender, No hepatosplenomegaly present and no masses Auscultation: normal bowel sounds Back/Spine/Pelvis Thoracic/Lumbar Spine: thoracic and lumbar spine normal to inspection Skin General skin exam: no rashes or lesions noted Neuro General: patient oriented x3 and no focal motor deficits Cranial nerves: Yes CN's II-XII intact bilaterally Extrem General: Yes normal to inspection, Yes no clubbing, cyanosis or edema and Yes no calf tenderness Psych Speech and movement: Normal speech and movement present Affect: Sad affect present (With depressed mood) Assessment & Plan Assessment & Plan (1) Bronchitis: Comment: Started with upper respiratory infection, she does have acute bronchitis at this time. Empirically treated with Z-Talon. Advised to use steam inhalation 2 to 3 times a day and also use cough drops as needed. Code(s): J40 - Bronchitis, not specified as acute or chronic (2) COPD (chronic obstructive pulmonary disease): Comment: Angelinaatakin Severe COPD RX : SPIRIVA HandiHaler one inh daily is OK. USE Ventolin HFA 2 puffs Q 6 hours only p.r.n. if there is an episode of wheezing or persistent cough. scripts are renewed . Code(s): J44.9 - Chronic obstructive pulmonary disease, unspecified Qualifiers: COPD type: emphysema Emphysema type: unspecified Qualified Code(s): J43.9 - Emphysema, unspecified (3) Nicotine dependence, cigarettes, uncomplicated: Comment: (current smoker - onset 15, 1/2-3/4ppd x 45yrs, 28pyh) Advised to quit, or at least cut down. The number of cigarettes. Patient currently smoking 5 cigarettes a day , I have urged her to cut down to 3 cigarettes a. Patient is participating in Annual lung screening program. Code(s): F17.210 - Nicotine dependence, cigarettes, uncomplicated (4) Allergic rhinitis: Comment: , MILD CHRONIC, RELATIVELY CONTROLLED. TX : Continue to use Flonase 1 spray each nostril daily. May use Claritin or Cetirizine 10 mg, p.r.n., Code(s): J30.9 - Allergic rhinitis, unspecified Qualifiers: Allergic rhinitis trigger: unspecified Allergic rhinitis seasonality: unspecified Qualified Code(s): J30.9 - Allergic rhinitis, unspecified Coding Level of Care Code Est Pt Level 3 (85836) Diagnoses Bronchitis J40 Pulmonary emphysema, unspecified emphysema type J43.9 COPD type: emphysema Emphysema type: unspecified Nicotine dependence, cigarettes, uncomplicated F17.210 Allergic rhinitis, unspecified seasonality, unspecified trigger J30.9 Allergic rhinitis trigger: unspecified Allergic rhinitis seasonality: unspecified
== END 2023-01-19 09:59 | disposition home or self-care (01) ==
PROVIDERS: PCP Internal Medicine; Visit Provider Internal Medicine
DX: J40 Bronchitis, not specified as acute or chronic (principal); J43.9 Emphysema, unspecified; F17.210 Nicotine dependence, cigarettes, uncomplicated; J30.9 Allergic rhinitis, unspecified
CPT/HCPCS: 99213

== ENCOUNTER → 2023-01-19 09:36 | Outpatient (BNVA) | payer MEDICARE, MEDICAID, SELFPAY | PROVIDERS: PCP Internal Medicine; Visit Provider Internal Medicine | DX: J43.9 Emphysema, unspecified (principal); J40 Bronchitis, not specified as acute or chronic; J30.9 Allergic rhinitis, unspecified; F17.210 Nicotine dependence, cigarettes, uncomplicated | CPT/HCPCS: 99212 ==

== ENCOUNTER 2023-02-24 08:50 | Outpatient (REF) | payer MEDICARE, MEDICAID, SELFPAY ==
[2023-02-24 09:20] LABS: MANUAL DIFF FLAG NO
[2023-02-24 09:36] LABS: Basophils Absolute Auto 0.1 X10*3/uL (0.0-0.2); Basophils Percent Auto 1.3 % (0-2); Eosinophils Absolute Auto 0.2 X10*3/uL (0.0-0.4); Eosinophils Percent Auto 3.6 % (0-4); Hematocrit 40.4 % (37.0-47.0); Hemoglobin 13.6 g/dl (12.0-16.0); Imm Gran Abs Auto 0.05 X10*3/uL (0.00-0.03); Imm Gran Pct Auto 0.9 % (0.0-0.4); Lymphocytes Absolute Auto 1.9 X10*3/uL (1.2-4.9); Lymphocytes Percent Auto 34.3 % (20-40); Mean Corpuscular HGB Conc 33.7 g/dl (31.0-35.0); Mean Corpuscular Hemoglobin 31.1 pg (27.0-33.0); Mean Corpuscular Volume 92.2 fL (80.0-98.0); Monocytes Absolute Auto 0.5 X10*3/uL (0.1-1.2); Monocytes Percent Auto 9.5 % (2-11); Neutrophils Absolute Auto 2.8 x10*3/uL (2.0-8.3); Neutrophils Percent Auto 50.4 % (45-73); Platelet Count 195 X10*3/uL (160-400); Red Blood Count 4.38 X10*6/uL (4.20-5.50); White Blood Count 5.6 X10*3/uL (4.8-10.8)
[2023-02-24 09:41] LABS: Estimated Average Glucose 111 mg/dL; Hemoglobin A1c % 5.5 % (<6.0)
[2023-02-24 09:45] LABS: Appearance Urine Clear; Color Urine Yellow; Glucose Urine UA Negative (Negative); Leukocyte Esterase Urine Negative (Negative); Nitrite Urine Negative (Negative); PH 6.5 (5.0-9.0); Specific Gravity - Urine 1.015 (1.005-1.025); UMIC TRIGGER UACC YES; Urine Blood Trace (Negative); Urine Ketones Negative (Negative); Urine Protein Negative (Neg-Trace)
[2023-02-24 10:09] LABS: Alanine Aminotransferase 6 U/L (0-31); Albumin Level 3.8 g/dL (3.5-5.0); Alkaline Phosphatase 54 U/L (39-117); Anion Gap 8 (12-20); Aspartate Amino Transferase 14 U/L (5-31); Bilirubin Total 0.3 mg/dL (0.0-1.0); Blood Urea Nitrogen 10 mg/dL (9-16); Calcium 9.1 mg/dL (8.4-10.2); Carbon Dioxide 32 mmol/L (22-29); Chloride 108 mmol/L (96-108); Cholesterol 155 mg/dL (<200); Estimated Glomerular Filt Rate > 60; Glucose Fasting 111 mg/dL (60-99); HDL Cholesterol 36 mg/dL (>40); LDL Cholesterol Calculated 96 mg/dL (<100); Potassium 4.4 mmol/L (3.3-5.1); Sodium 144 mmol/L (135-145); Total Protein 6.5 g/dL (6.5-8.0); Triglycerides 117 mg/dL (<150)
[2023-02-24 10:12] LABS: Bacteria Urine None Seen (None Seen); Hyaline Casts Urine 0-2 /LPF (0-2); Squamous Epithelial Cell Urine 0-2 /HPF (0-2); WBC Urine 0-5 /HPF (0-5)
[2023-02-24 10:27] LABS: Vitamin D 25-OH Total 29.3 ng/mL (>30)
== END 2023-02-24 08:51 | disposition home or self-care (01) ==
LOC: HO.LAB 08:50
PROVIDERS: PCP Internal Medicine; Visit Provider Internal Medicine
DX: E78.00 Pure hypercholesterolemia, unspecified (principal); I10 Essential (primary) hypertension; E55.9 Vitamin D deficiency, unspecified; R73.01 Impaired fasting glucose; R30.0 Dysuria
CPT/HCPCS: 36415; 80053; 80061; 81001; 82306; 83036; 85025

== ENCOUNTER 2023-02-24 13:49 | Outpatient (AMB) | payer MEDICARE, MEDICAID, SELFPAY ==
[2023-02-24 13:59] VITALS: BP 122/78; PULSE 65; O2SAT 96; BMI 22.9
--- NOTE | 2023-02-24 13:59 | MHC.PC.OV ---
Vital Signs 02/24/23 13:59 Height 5 ft 2 in Weight 125 lb 0.8 oz BMI 22.9 BP 122/78 Blood Pressure Location Lt brachial Position Sitting Pulse 65 Pulse Source Pulse Oximeter Pulse Oximetry (%) 96 Oxygen Delivery Method Room Air Intake Visit Reasons: hyperlipidemia,HTN, MVP,rectal prolapse,depression Doctor Of Naturopathic Medicine Required: No Accompanied by: Self / Same As Patient Allergies No Known Allergies [NO KNOWN ALLERGIES] Allergy (Unknown, Verified 02/24/23 14:35) unknown Medication List - Last Reconciled 02/24/23 by Sarthak Person MD albuterol sulfate 90 mcg/actuation (Ventolin HFA) 1 puff PO Q6H PRN 30 days alosetron 1 mg (2 x 0.5 mg) PO DAILY amoxicillin 2,000 mg (4 x 500 mg) PO ONCE aspirin 81 mg PO DAILY 90 days cholecalciferol (vitamin D3) 50 mcg PO DAILY 90 days cyclobenzaprine 5 mg PO TID PRN 30 days diclofenac sodium 1% 2 grams topical QID PRN escitalopram oxalate 20 mg PO DAILY ferrous sulfate (Feosol) 325 mg PO DAILY 30 days fluticasone propionate 50 mcg/actuation 1 spray intranasal DAILY hydrocortisone 2.5% (Proctosol HC) 1 appl [place] BID PRN hydrocortisone 2.5% (Proctosol HC) 1 appl [place] TID hydroxyzine HCl 50 mg PO BEDTIME ibuprofen 600 mg PO Q8H PRN 30 days lorazepam 1 mg PO BID PRN 28 days losartan 25 mg PO DAILY 30 days metoclopramide HCl (Reglan) 5 mg PO .TIDAC 30 days metoprolol succinate ER 50 mg PO DAILY mirtazapine 30 mg PO BEDTIME 90 days nicotine 1 patch transdermal DAILY 7 days ondansetron 4 mg PO Q8H PRN oxycodone 5 mg PO .1-2 times daily PRN 10 days pantoprazole 40 mg PO DAILY 90 days silver sulfadiazine 1% appl topical BID simvastatin 40 mg PO BEDTIME solifenacin 10 mg PO DAILY sucralfate (Carafate) 4 grams (4 x 1 gram) PO QNOON tiotropium bromide (Spiriva with HandiHaler) 1 cap inhalation DAILY 30 days Tobacco use date assessed: 02/24/23 Dental Screening Dental Screen Date: 11/21/23 Did you have a dental visit in the last 12 months?: Yes Did you have a dental problem in the last 6 months where you did not have access to dental care?: No Was dental information given to patient?: Patient has dentist HPI hyperlipidemia,HTN, MVP,rectal prolapse,depression HPI Details Patient comes in today for her follow up visit States that she feels okay She denies any headaches or dizziness Denies any chest pains, no SOB No nausea/vomiting, no abdominal pain No change in bowel habits noted - still has frequent loose stools and on and off blood in her stool (chronic) Still has chronic low back pain and joint pains but states that her current Rx help keep her pains manageable States that she will be needing her Oxycodone Rx refilled in a few days - will be due for refill the day after Thanksgiving Had her follow up labs done earlier today - to discuss her results Would also like to get her flu shot today [facility] Medical History Bronchitis Nicotine dependence, cigarettes, uncomplicated Nonrheumatic mitral (valve) insufficiency Pulmonary nodule History of hepatitis C Osteopenia (~2011) COPD (chronic obstructive pulmonary disease) IV drug user Endocarditis of mitral valve (~11/2017) Mitral valve prolapse Mitral regurgitation Early satiety Paresthesia of left leg Allergic rhinitis Facet arthritis of lumbar region Cervical spondylosis Vitamin D deficiency Pure hypercholesterolemia Benign essential hypertension Depression GERD (gastroesophageal reflux disease) Anxiety Surgical History History of liver biopsy (~2009) History of partial colectomy (~2014) History of hysteroscopy (~2010) History of colonoscopy (~2017) Family History Father Internal bleeding Mother Medical history unknown Housing: House Housing Other:: lives alone with her cat Malena Alcohol intake: former Patient Tobacco Use Status: Current everyday Tobacco user Tobacco use type: Cigarette Cigarette Packs Per Day: 0.5 Cigarettes Per Day: 10 Years Smoked: 44 years (onset 15, 1/2-3/4ppd x 44yrs, 28pyh) e-Cigarette/Vaping Use: Never Used Second Hand Smoke Exposure: Yes Substance Use Type: Marijuana Advance Directives Date on File: 12/18/21 service: No Current occupational status: unemployed Sexual orientation: Straight/Heterosexual Gender identity: Female Cognitive needs: No Hearing needs: No Vision needs: Yes Female Reproductive History Menstrual Age of Menarche: 14 Questionnaire PHQ-9 Over the last 2 weeks, how often have you been bothered by any of the following problems? 1. Little interest or pleasure in doing things: several days 2. Feeling down, depressed, or hopeless: more than half the days 3. Trouble falling or staying asleep, or sleeping too much: several days 4. Feeling tired or having little energy: several days 5. Poor appetite or overeating: more than half the days 6. Feeling bad about yourself - or that you are a failure or have let yourself or your family down: more than half the days 7. Trouble concentrating on things, such as reading the newspaper or watching television: not at all 8. Moving or speaking so slowly that other people could have noticed. Or the opposite - being so fidgety or restless that you have been moving around a lot more than usual: several days 9. Thoughts that you would be better off or of hurting yourself in some way: not at all Total score: 10 Depression Screening Interpretation: Positive Depression Screening Follow-up: Existing condition and In treatment Depression Screening Done: Yes 93006 - PHQ-9 Billing: Yes Source: Developed by Drs. Demar Wolf, Yocasta Slater, Mathew Juarez and colleagues, with an educational mendoza from [employer]. Thrive Questionnaire Date Thrive assessed: 02/24/23 I am a: Patient What is your living situation today?: I have a steady place to live Within the past 12 months, did the food you bought not last and you didn't have the money to get more?: Never true Within the past 12 months, did you worry whether your food would run out before you got money to buy more?: Never true Do you have trouble paying for medicines?: No Do you have trouble getting transportation to medical appointments?: No Do you have trouble paying your heating and electricity bill?: No Do you have trouble taking care of your child, family member or friend?: No Do you have trouble with day-to-day activities such as bathing, preparing meals, shopping, managing finances, etc.?: No Are you currently unemployed and looking for a job?: No Are you interested in more education?: No Please select the resources that you would like help with: None Currently or been in a relationship where the following occur: no concerns reported AUDIT C Alcohol Use Questionnaire (AUDIT-C) 1. How often do you have a drink containing alcohol?: Never 3. How often do you have six or more drinks on one occasion?: Never Total Score: 0 Score Reviewed/Action Taken: Yes CHRISSIE-7 AMB Questionnaire CHRISSIE-7 Date CHRISSIE - 7 assessed: 02/24/23 Feeling nervous, anxious, or on edge: 2 = More than half the days Not being able to stop or control worryin = More than half the days Worrying too much about different things: 2 = More than half the days Trouble relaxin = More than half the days Being so restless that it is hard to sit still: 2 = More than half the days Becoming easily annoyed or irritable: 2 = More than half the days Feeling afraid as if something awful might happen: 2 = More than half the days Total CHRISSIE-7 score (0-4 normal; 5-9 mild; 10-14 moderate; 15-21 severe): 14 Source: Developed by Drs. Demar Wolf, Yocasta Slater, Mathew Juarez and colleagues, with an educational mendoza from [employer]. Review of Systems Const Denies chills, Reports difficulty sleeping (on and off), Reports fatigue, Denies fever(s) and Denies headache(s) ENT Denies dysphagia, Denies dizziness, Denies otalgia, Denies headache(s), Denies odynophagia and Denies sore throat Card Denies chest pain, Denies palpitations and Denies dyspnea Resp Reports chest congestion (mild; at times), Reports cough (frequent - coughs up clear phlegm often in the morning), Denies hemoptysis, Denies pain with cough, Denies dyspnea and Reports wheezing (occasionally, often at night) GI Denies abdominal pain, Reports hematochezia (recurrent), Denies constipation, Denies dysphagia, Reports early satiety, Denies heartburn, Reports fecal incontinence (at times), Reports loose stools (recurrent), Denies nausea, Denies odynophagia and Denies vomiting Denies difficulty voiding, Denies nocturia and Denies dysuria Musc Reports back pain (over the lumbar spine - chronic) and Reports arthralgias Skin/Breast Denies rash Neuro Denies dizziness, Denies headache(s) and Reports paresthesias (in the left leg) Psych Reports anxiety and Reports depression (increasing) Endo Reports fatigue and Denies palpitations Aller/Immun Reports wheezing (occasionally, often at night) Physical exam (Primary Care) Vital Signs: Last Vital Signs Pulse 65 02/24/23 13:59 BP 122/78 02/24/23 13:59 Pulse Ox 96 02/24/23 13:59 Oxygen Delivery Method Room Air 02/24/23 13:59 BMI result Body Mass Index 22.9 Tobacco/Smoking Status: Tobacco use Status Tobacco use date assessed 02/24/23 02/24/23 14:01 Patient Tobacco Use Status Current everyday Tobacco 02/24/23 14:01 Tobacco use type Cigarette 02/24/23 14:01 e-Cigarette/Vaping Use Never Used 02/24/23 14:01 PHQ-9: PHQ-9 Score PHQ-9: Total score 10 02/24/23 14:11 Depression Screening Interpretation: Positive Depression Screening Follow-up: Existing condition and In treatment Thrive Assessment: Date of Thrive Assessment Date Thrive assessed 02/24/23 02/24/23 14:01 Currently or been in a relationship where the following occur: no concerns reported Const General: no acute distress and alert HENMT Throat: Yes posterior oropharynx normal and Yes tonsils normal (no TP congestion noted) Neck Neck: Yes no lymphadenopathy and Yes supple Resp Auscultation: clear to auscultation bilaterally, no rales, rhonchi (occasional) throughout and no wheezes Cardio Rate: regular rate Rhythm: regular rhythm Heart sounds: no murmurs GI Palpation (GI): Soft to palpation and nontender Auscultation: normal bowel sounds Back/Spine/Pelvis Cervical Spine: Cervical spine tenderness Thoracic/Lumbar Spine: lumbar spinal tenderness Extrem General: Yes no clubbing, cyanosis or edema Office Procedures Flu Questionnaire Does the patient have a severe egg allergy?: No Does the patient have severe life threatening allergies?: No Does the patient have a fever or illness today?: No Has the patient ever had Guillain-[place] Syndrome?: No Has the patient ever had any past reaction to a flu shot?: No Immunizations flu vacc [id number] 6mos up(PF) 60 mcg(15 mcgx4)/0.5 mL IM syringe Performing Provider: Sarthak Person MD Performing Location: [facility] Administered by: DEVIKA Brandon on 02/24/23 14:20 Dose Route Admin Location Dispensed Lot Number Expiration Date NDC Automatic Chief 0.5 mL IM Left Deltoid 0.5 mL [id number] 10/04/23 65031-572-31 [employer] VIS Given Date VIS Provided VIS Publication Date 02/24/23 Single Vaccine 20 Eligibility Eligibility Date Funding Source Not [facility] Eligible 02/24/23 Private Results Reviewed Results Reviewed: Laboratory Tests 02/24/23 02/24/23 09:13 09:18 WBC 5.6 Hgb 13.6 Hct 40.4 Plt Count 195 Sodium 144 Potassium 4.4 Creatinine 0.71 Estimated GFR > 60 Fasting Glucose 111 H Hemoglobin A1c % 5.5 Calcium 9.1 AST 14 ALT 6 Triglycerides 117 Cholesterol 155 LDL Cholesterol, Calc 96 HDL Cholesterol 36 L 25-OH Vitamin D Total 29.3 L Ur Specific [place] 1.015 Urine Protein Negative Urine Glucose (UA) Negative Urine Blood Trace H Assessment and Plan Assessment & Plan (1) Pure hypercholesterolemia: Code(s): E78.00 - Pure hypercholesterolemia, unspecified Plan: Results of her labs done earlier today reviewed and discussed with patient Reinforced low cholesterol diet Continue Simvastatin 40 mg QD Will recheck her labs and fasting lipids in 3 months for follow up (2) Benign essential hypertension: Code(s): I10 - Essential (primary) hypertension Plan: Reinforced low sodium diet - goal is systolic BP of at least 120 to 130 mm or less Continue Lisinopril 5 mg QD (3) COPD (chronic obstructive pulmonary disease): Comment: Moderatley Severe COPD RX : SPIRIVA HandiHaler one inh daily is OK. USE Ventolin HFA 2 puffs Q 6 hours only p.r.n. if there is an episode of wheezing or persistent cough. scripts are renewed . Code(s): J44.9 - Chronic obstructive pulmonary disease, unspecified Qualifiers: COPD type: emphysema Emphysema type: unspecified Qualified Code(s): J43.9 - Emphysema, unspecified Plan: Stable - continue Spiriva Handihaler 18 mcg inhale contents of 1 capsule once a day and Ventolin HFA 2 puffs 4 times a day as needed Follow up with pulmonary as scheduled (4) Pulmonary nodule: Comment: (8mm MARIA ELENA nodule remains stable on 2013 LDCT) Code(s): R91.1 - Solitary pulmonary nodule Plan: Follow up with pulmonary as scheduled for continuing surveillance CT lung screening done on 04/23/2022 revealed (+) mild emphysema and unchanged 0.8 cm left upper lobe pulmonary nodule. There is a somewhat nodular appearance along the right hemidiaphragm which measures fat attenuation, which could represent a hamartoma. This is also unchanged. Recommend routine annual low-dose CT screening in 12 months (5) Mitral valve prolapse: Code(s): I34.1 - Nonrheumatic mitral (valve) prolapse Plan: Transesophageal echocardiogram done on 10/03/20 showed normal LV systolic and diastolic function, moderately severe MR and severe mitral prolapse Repeat echocardiogram done in 04/2022 and on 10/14/2022 revealed no significant changes - ?normal LV systolic function, with mildly dilated left atrium, prolapse of the middle posterior scallop with moderately severe eccentric mitral regurgitation, normal RV systolic pressure and no gross pericardial effusion Patient currently has no clinical signs of heart failure although she continues to complain of?some shortness of breath with exertion? Will need endocarditis prophylactic prior to any dental work? Follow up with cardiology as scheduled (6) Impaired fasting glucose: Code(s): R73.01 - Impaired fasting glucose Plan: HgbA1c was normal at 5.5% on her labs done earlier today; was at 5.1% previously Reinforced low calorie diet (7) Gastroparesis: Comment: Gastric Emptying Study = Abnormal - 13% retention of food by 4 hours. - 10/30/2020) Code(s): K31.84 - Gastroparesis Plan: Follow up with GI as scheduled Patient reminded to eat small frequent feedings instead of eating 3 large meals a day to help minimize some of her GI symptoms Advised that there is currently no effective treatment or medications for gastroparesis Follow-up with GI as scheduled (8) GERD (gastroesophageal reflux disease): Code(s): K21.9 - Gastro-esophageal reflux disease without esophagitis Qualifiers: Esophagitis presence: without esophagitis Qualified Code(s): K21.9 - Gastro-esophageal reflux disease without esophagitis Plan: Dietary restrictions reinforced Continue Pantoprazole 40 mg QD and Sucralfate 2 gm QD at noon (9) Rectal bleeding: Code(s): K62.5 - Hemorrhage of anus and rectum Plan: Is most likely due to her anal/perianal irritation from her frequent bouts of loose stools and her rectal prolapse Colonoscopy was last done in [address] 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 Laughlin on 10/01/22 and was advised that she should be more watchful of her diet and that her frequent loose stools from her dietary indiscretions are what is aggravating her current condition Has been instructed to use Silvadene cream and [place]asa suppositories as needed to help calm down/alleviate her chronic anal irritation and she will be seen again in a few months for reassessment (11) Anemia: Code(s): D64.9 - Anemia, unspecified Qualifiers: Anemia type: iron deficiency Iron deficiency anemia type: inadequate dietary iron intake Qualified Code(s): D50.8 - Other iron deficiency anemias Plan: Corrected - H/H was normal on her recent labs done earlier today Continue FeSO4 325 mg QD Will recheck her CBC in 3 months for follow up (12) Facet arthritis of lumbar region: Comment: (+Hx of old L5 compression fracture) Code(s): M47.816 - Spondylosis without myelopathy or radiculopathy, lumbar region Plan: Reinforced activity and weight lifting restrictions to avoid aggravating her lower back Continue Oxycodone 5 mg 1 to 2 times a day as needed for severe pain - Rx refilled (13) Cervical spondylosis: Code(s): M47.812 - Spondylosis without myelopathy or radiculopathy, cervical region Plan: Continue Ibuprofen 600 mg TID with food PRN and Cyclobenzaprine 5 mg TID PRN (14) Vitamin D deficiency: Code(s): E55.9 - Vitamin D deficiency, unspecified Plan: Continue Vitamin D3 2000 units QD (15) Osteopenia: Onset Date: ~2011 Comment: (Bone Dexa: T-Score -1.3 lumbar - 12/18/2011) Code(s): M85.80 - Other specified disorders of bone density and structure, unspecified site Qualifiers: Osteopenia location: unspecified Qualified Code(s): M85.80 - Other specified disorders of bone density and structure, unspecified site Plan: BMD last done in 2011 and has not had repeat BMD done since (last one ordered in 2013 was not done for unclear reasons) Will need to get this updated again soon, once her current and more pressing issues (particularly her rectal bleeding) are addressed and controlled (16) Overactive bladder: Code(s): N32.81 - Overactive bladder Plan: Continue Vesicare 10 mg QD - states that Rx has helped a lot with her symptoms (17) Anxiety: Code(s): F41.9 - Anxiety disorder, unspecified Plan: Continue Lorazepam 1 mg BID PRN and Hydroxyzine 50 mg Q HS (18) Depression: Code(s): F32.9 - Major depressive disorder, single episode, unspecified Qualifiers: Depression Type: major depressive disorder Major depression recurrence: recurrent Active/Remission status: currently active Major depression episode severity: unspecified Qualified Code(s): F33.9 - Major depressive disorder, recurrent, unspecified Plan: Continue Escitalopram 20 mg QD and Mirtazapine 30 mg Q HS Follow up with psychiatry as scheduled (19) Smoker: Comment: LONG-TIME SMOKER,, EMOTIONALLY NICOTINE DEPENDENT. Again discussed with her in detail and stressed that she should quit completely. She does have Nicotine patch 14mg at home, and is advised to start using it. Again discussed with her about pulmonary nodules, and told her that with continued smoking there is a great risk for this to become neoplastic. Code(s): F17.200 - Nicotine dependence, unspecified, uncomplicated Plan: Counseled again on smoking cessation Plan Flu vaccine given today Follow up in 3 months Orders: Orders Lipid Panel 3 Months E78.00 - Pure hypercholesterolemia, unspecified Comprehensive Harmony. Panel Fast 3 Months E78.00 - Pure hypercholesterolemia, unspecified UA CC w/rflx Micro + Cult 3 Months R30.0 - Dysuria Vitamin D 25-OH Total 3 Months E55.9 - Vitamin D deficiency, unspecified Influenza [id number] Immunization Today Z23 - Encounter for immunization Complete Blood Count Auto Diff 3 Months I10 - Essential (primary) hypertension TSH reflex Free T4 3 Months E78.00 - Pure hypercholesterolemia, unspecified Medications: Refilled oxycodone 5 mg PO .1-2 times daily 10 days PRN 20 tabs 0RF pain M47.812 - Spondylosis without myelopathy or radiculopathy, cervical region, M47.816 - Spondylosis without myelopathy or radiculopathy, lumbar region Coding Level of Care Code Est Pt Level 4 (16374) Diagnoses Pure hypercholesterolemia E78.00 Benign essential hypertension I10 Pulmonary emphysema, unspecified emphysema type J43.9 COPD type: emphysema Emphysema type: unspecified Pulmonary nodule R91.1 Mitral valve prolapse I34.1 Impaired fasting glucose R73.01 Gastroparesis K31.84 Gastroesophageal reflux disease without esophagitis K21.9 Esophagitis presence: without esophagitis Rectal bleeding K62.5 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 Iron deficiency anemia secondary to inadequate dietary iron intake D50.8 Anemia type: iron deficiency Iron deficiency anemia type: inadequate dietary iron intake 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 Cervical spondylosis M47.812 Vitamin D deficiency E55.9 Osteopenia, unspecified location M85.80 Osteopenia location: unspecified Overactive bladder N32.81 Anxiety F41.9 Episode of recurrent major depressive disorder, unspecified depression episode severity F33.9 Depression Type: major depressive disorder Major depression recurrence: recurrent Active/Remission status: currently active Major depression episode severity: unspecified Smoker F17.200
== END 2023-02-24 14:50 | disposition home or self-care (01) ==
PROVIDERS: PCP Internal Medicine; Visit Provider Internal Medicine
DX: Z23 Encounter for immunization (principal)
CPT/HCPCS: 90471; 90686; 99214

== ENCOUNTER 2023-03-08 12:32 | Emergency (ER) | payer MEDICARE, MEDICAID, SELFPAY ==
[2023-03-08 12:40] VITALS: BP 125/83; PULSE 62; RESP 18; TEMP 36.8; O2SAT 97; BMI 22.9
--- NOTE | 2023-03-08 12:44 | ED.GENADULT ---
HPI - General Adult General Chief complaint: Epistaxis Stated complaint: Nose bleed History of Present Illness HPI narrative: Patient left without complete of treatment by ED provider. Related Data Home Medications Medication Instructions Recorded Confirmed silver sulfadiazine 1 % topical appl topical BID 07/16/22 02/24/23 cream Previous Rx's Medication Instructions Recorded ibuprofen 600 mg tablet 600 mg PO Q8H PRN pain 30 days #90 09/27/21 tabs ondansetron 4 mg disintegrating 4 mg PO Q8H PRN nausea and 12/18/21 tablet vomiting #20 tabs ferrous sulfate 325 mg (65 mg 325 mg PO DAILY 30 days #30 tabs 02/04/22 iron) tablet (Feosol) hydrocortisone 2.5 % topical cream 1 appl [place] BID PRN hemorrhoids #30 06/17/22 with perineal applicator grams (Proctosol HC) metoclopramide HCl 5 mg tablet 5 mg PO .TIDAC 30 days #90 tabs 06/17/22 (Reglan) cyclobenzaprine 5 mg tablet 5 mg PO TID PRN muscle spasm 30 06/20/22 days #90 tabs aspirin 81 mg tablet,delayed 81 mg PO DAILY 90 days #90 tabs 07/16/22 release simvastatin 40 mg tablet 40 mg PO BEDTIME #90 tabs 08/16/22 hydrocortisone 2.5 % topical cream 1 appl [place] TID hemorrhoids #30 grams 10/09/22 with perineal applicator (Proctosol HC) sucralfate 1 gram tablet (Carafate) 4 g (4 x 1 gram) PO QNOON #120 tabs 10/09/22 albuterol sulfate 90 mcg/actuation 1 puff PO Q6H PRN shortness of 10/13/22 aerosol inhaler (Ventolin HFA) breath or wheezing 30 days #8.5 grams tiotropium bromide 18 mcg capsule 1 cap inhalation DAILY copd 30 10/13/22 with inhalation device (Spiriva days #30 inhalations with HandiHaler) diclofenac sodium 1 % topical gel 2 g topical QID PRN pain #100 grams 10/31/22 mirtazapine 30 mg tablet 30 mg PO BEDTIME 90 days #90 tabs 11/11/22 hydroxyzine HCl 50 mg tablet 50 mg PO BEDTIME #90 tabs 12/19/22 losartan 25 mg tablet 25 mg PO DAILY 30 days #30 tabs 12/19/22 metoprolol succinate 50 mg 50 mg PO DAILY #90 tabs 12/19/22 tablet,extended release 24 hr solifenacin 10 mg tablet 10 mg PO DAILY #90 tabs 12/19/22 nicotine 21 mg/24 hr daily 1 patch transdermal DAILY 7 days 12/29/22 transdermal patch #28 ea fluticasone propionate 50 1 spray intranasal DAILY #16 grams 01/10/23 mcg/actuation nasal spray,suspension lorazepam 1 mg tablet 1 mg PO BID PRN anxiety 28 days 01/19/23 #56 tabs escitalopram oxalate 20 mg tablet 20 mg PO DAILY #90 tabs 01/28/23 amoxicillin 500 mg capsule 2,000 mg (4 x 500 mg) PO ONCE #4 02/03/23 caps cholecalciferol (vitamin D3) 50 50 mcg PO DAILY 90 days #90 caps 02/05/23 mcg (2,000 unit) capsule alosetron 0.5 mg tablet 1 mg (2 x 0.5 mg) PO DAILY #60 tabs 02/23/23 oxycodone 5 mg tablet 5 mg PO .1-2 times daily PRN pain 03/06/23 10 days #20 tabs pantoprazole 40 mg tablet,delayed 40 mg PO DAILY 90 days #90 tabs 03/06/23 release amoxicillin 875 mg-potassium 1 tab PO BID 7 days #14 tabs 03/09/23 clavulanate 125 mg tablet Allergies Allergy/AdvReac Type Severity Reaction Status Date / Time No Known Allergies Allergy Unknown unknown Verified 03/09/23 08:25 [NO KNOWN ALLERGIES] [facility] Past Medical History Medical History Bronchitis Nicotine dependence, cigarettes, uncomplicated Nonrheumatic mitral (valve) insufficiency Pulmonary nodule History of hepatitis C Osteopenia (~2011) COPD (chronic obstructive pulmonary disease) IV drug user Endocarditis of mitral valve (~11/2017) Mitral valve prolapse Mitral regurgitation Early satiety Paresthesia of left leg Allergic rhinitis Facet arthritis of lumbar region Cervical spondylosis Vitamin D deficiency Pure hypercholesterolemia Benign essential hypertension Depression GERD (gastroesophageal reflux disease) Anxiety Surgical History History of liver biopsy (~2009) History of partial colectomy (~2014) History of hysteroscopy (~2010) History of colonoscopy (~2018) Family History Family History Father Internal bleeding Mother Medical history unknown Social History Social History Housing: House Housing Other:: lives alone with her cat Malena Alcohol intake: former Patient Tobacco Use Status: Current everyday Tobacco user Tobacco use type: Cigarette Cigarette Packs Per Day: 0.5 Cigarettes Per Day: 10 Years Smoked: 44 years (onset 15, 1/2-3/4ppd x 44yrs, 28pyh) Smoked in Last 30 Days: Yes e-Cigarette/Vaping Use: Never Used Second Hand Smoke Exposure: Yes Use of substances other than those prescribed or required for medical reasons: No Substance Use Type: Marijuana Advance Directives: Yes Advance Directives on File: Yes Advance Directives Date on File: 12/18/21 Patient : No service: No Current occupational status: unemployed Sexual orientation: Straight/Heterosexual Gender identity: Female Cognitive needs: No Hearing needs: No Vision needs: Yes Physical Exam ED Vital Signs: Vital Signs - 24 hr 03/08/23 12:40 Temperature 98.2 F Pulse Rate 62 Respiratory Rate 18 Blood Pressure 125/83 Pulse Oximetry 97 Oxygen Delivery Method Room Air BMI result Body Mass Index 22.9 Course Course Course Narrative: RME: 62 yold female presents to the ED for right sided nosebleed off an on since yesterday. not on blood thinners. Active bleeding, not profuse. negative for blood in posterior pharynx. Gauzed placed in right nare and clamps placed. Discharge Plan Discharge Clinical Impression: Epistaxis Patient Disposition: Left W/O Completing Treatment Prescriptions: No Action ibuprofen 600 mg tablet 600 mg PO Q8H PRN (Reason: pain) 30 Days Qty: 90 1RF Rx Instructions: take with food cyclobenzaprine 5 mg tablet 5 mg PO TID PRN (Reason: muscle spasm) 30 Days Qty: 90 1RF aspirin 81 mg tablet,delayed release (DR/EC) 81 mg PO DAILY 90 Days Qty: 90 3RF simvastatin 40 mg tablet 40 mg PO BEDTIME Qty: 90 1RF diclofenac sodium 1 % gel 2 g topical QID PRN (Reason: pain) Qty: 100 1RF Rx Instructions: apply to affected/painful areas up to 4 times a day as needed metoprolol succinate 50 mg tablet extended release 24 hr 50 mg PO DAILY Qty: 90 2RF hydroxyzine HCl 50 mg tablet 50 mg PO BEDTIME Qty: 90 1RF losartan 25 mg tablet 25 mg PO DAILY 30 Days Qty: 30 3RF solifenacin 10 mg tablet 10 mg PO DAILY Qty: 90 1RF nicotine 21 mg/24 hr patch 24 hour 1 patch transdermal DAILY 7 Days Qty: 28 0RF fluticasone propionate 50 mcg/actuation spray,suspension 1 spray intranasal DAILY Qty: 16 5RF lorazepam 1 mg tablet 1 mg PO BID PRN (Reason: anxiety) 28 Days Qty: 56 0RF escitalopram oxalate 20 mg tablet 20 mg PO DAILY Qty: 90 1RF amoxicillin 500 mg capsule 2,000 mg PO ONCE Qty: 4 1RF Rx Instructions: Take 4 capsules 2 hours before procedure cholecalciferol (vitamin D3) 50 mcg (2,000 unit) capsule 50 mcg PO DAILY 90 Days Qty: 90 3RF Rx Instructions: 1 capsule Orally Once a day alosetron 0.5 mg tablet 1 mg PO DAILY Qty: 60 3RF oxycodone 5 mg tablet 5 mg PO .1-2 times daily PRN (Reason: pain) 10 Days Qty: 20 0RF pantoprazole 40 mg tablet,delayed release (DR/EC) 40 mg PO DAILY 90 Days Qty: 90 1RF ondansetron 4 mg tablet,disintegrating 4 mg PO Q8H PRN (Reason: nausea and vomiting) Qty: 20 0RF amoxicillin-pot clavulanate 875-125 mg tablet 1 tab PO BID 7 Days Qty: 14 0RF ferrous sulfate [Feosol] 325 mg (65 mg iron) tablet 325 mg PO DAILY 30 Days Qty: 30 5RF mirtazapine 30 mg tablet 30 mg PO BEDTIME 90 Days Qty: 90 1RF silver sulfadiazine 1 % cream topical BID albuterol sulfate [Ventolin HFA] 90 mcg/actuation HFA aerosol inhaler 1 puff PO Q6H PRN (Reason: shortness of breath or wheezing) 30 Days Qty: 8.5 3RF Spiriva with HandiHaler 18 mcg capsule, w/inhalation device 1 cap inhalation DAILY 30 Days Qty: 30 5RF Rx Instructions: puncture 1 cap using device; one dose = 2 inhalations hydrocortisone [Proctosol HC] 2.5 % cream with perineal applicator 1 appl [place] BID PRN (Reason: hemorrhoids) Qty: 30 0RF metoclopramide HCl [Reglan] 5 mg tablet 5 mg PO .TIDAC 30 Days Qty: 90 6RF sucralfate [Carafate] 1 gram tablet 4 g PO QNOON Qty: 120 3RF hydrocortisone [Proctosol HC] 2.5 % cream with perineal applicator 1 appl [place] TID Qty: 30 6RF Rx Instructions: BE SURE TO INCLUDE RECTAL APPICATOR!! Discharge Date/Time: 03/08/23 14:46
== END 2023-03-08 14:46 | disposition left against medical advice (07) ==
PROVIDERS: Emergency Provider Emergency Medicine; PCP Internal Medicine
DX: R04.0 Epistaxis (principal)
CPT/HCPCS: 99281

== ENCOUNTER 2023-03-09 08:02 | Emergency (ER) | payer MEDICARE, MEDICAID, SELFPAY ==
--- NOTE | ~2023-03-09 | CT_ITS ---
EXAMINATION: CT ABDOMEN AND PELVIS WITH CONTRAST CLINICAL INFORMATION: Abdominal pain. COMPARISON: CT abdomen 09/26/2019 TECHNIQUE: Multidetector volumetric images were obtained from the superior aspect of the liver through the pubic symphysis following administration 85 mL of Omnipaque 350 intravenous contrast. Sagittal and coronal reformatted images were obtained on the technologist's workstation. Oral contrast: No This CT examination was performed using dose optimization techniques as appropriate, variously including the following: *Automated exposure control *Adjustment of mA and/or kV according to patient size (this includes techniques or standardized protocols for targeted exams where dose is matched to indication/reason for exam; i.e. extremities or head) *Use of iterative reconstruction technique DLP: 373 mGy-cm FINDINGS: LUNG BASES: The visualized lung bases are unremarkable. LIVER, GALLBLADDER, AND BILIARY TREE: The liver is normal in size, shape, and attenuation. No focal hepatic lesion or biliary ductal dilatation is present. The gallbladder is unremarkable with no evidence of radiopaque gallstones, gallbladder wall thickening, or obvious pericholecystic inflammatory changes. PANCREAS: Unremarkable. SPLEEN: Unremarkable. ADRENAL GLANDS: Unremarkable. KIDNEYS AND URETERS: The kidneys are normal in size, shape, and attenuation. No hydronephrosis, hydroureter, or calculi seen. No perinephric stranding. There is a 5 mm cortical cyst upper pole left kidney BLADDER: Unremarkable. GASTROINTESTINAL TRACT: There is moderate stool seen throughout the colon without significant distention. The small bowel loops are normal caliber. Appendix is normal caliber. There is no free air or free fluid. ABDOMINAL WALL: No significant hernia is appreciated. LYMPH NODES: Normal. VASCULAR: Unremarkable. PELVIC VISCERA: Unremarkable. OSSEOUS STRUCTURES: There is a old L5 compression fracture. CT/CT abdomen pelvis w IV con IMPRESSION: Moderate constipation. Otherwise no acute intra-abdominal process seen. Fleischner guidelines were followed.
[2023-03-09 08:28] VITALS: BP 128/88; PULSE 65; RESP 18; TEMP 36.2; O2SAT 98; BMI 23.2
[2023-03-09] MEDS: Oxymetazoline HCl 0.05 % Nasal 15 ML SPRAY 2 SPRAY NOSTRIL-B (10:32)
--- NOTE | 2023-03-09 10:34 | PC.NURSE ---
medication administered per provider order. nose clip in place/pt applying pressure w/ fingers.
--- NOTE | 2023-03-09 10:35 | ED.EPISTAXIS ---
History of Present Illness General Chief Complaint: Epistaxis Stated Complaint: nosebleed Time Seen by Provider: 03/09/23 10:29 Source: patient Mode of arrival: ambulatory Limitations: no limitations History of Present Illness HPI Narrative: This is a 62-year-old female history of PVCs, sinus bradycardia, IV drug abuse, hepatitis-C, hypertension, GERD, anemia presenting to the emergency department for evaluation of nose bleeds going on intermittently for the past 2 days, each episode lasts about 10 minute she states it is her right nostril bleeding. Patient is not on blood thinners. Denies chest pain, shortness of breath, fevers, chills, nausea, vomiting, abdominal pain, headache, vision changes, dizziness and weakness. Denies mechanical trauma Related Data Home Medications Medication Instructions Recorded Confirmed silver sulfadiazine 1 % topical appl topical BID 07/16/22 02/24/23 cream Previous Rx's Medication Instructions Recorded ibuprofen 600 mg tablet 600 mg PO Q8H PRN pain 30 days #90 09/27/21 tabs ondansetron 4 mg disintegrating 4 mg PO Q8H PRN nausea and 12/18/21 tablet vomiting #20 tabs ferrous sulfate 325 mg (65 mg 325 mg PO DAILY 30 days #30 tabs 02/04/22 iron) tablet (Feosol) hydrocortisone 2.5 % topical cream 1 appl [place] BID PRN hemorrhoids #30 06/17/22 with perineal applicator grams (Proctosol HC) metoclopramide HCl 5 mg tablet 5 mg PO .TIDAC 30 days #90 tabs 06/17/22 (Reglan) cyclobenzaprine 5 mg tablet 5 mg PO TID PRN muscle spasm 30 06/20/22 days #90 tabs aspirin 81 mg tablet,delayed 81 mg PO DAILY 90 days #90 tabs 07/16/22 release simvastatin 40 mg tablet 40 mg PO BEDTIME #90 tabs 08/16/22 hydrocortisone 2.5 % topical cream 1 appl IL TID hemorrhoids #30 grams 10/09/22 with perineal applicator (Proctosol HC) sucralfate 1 gram tablet (Carafate) 4 g (4 x 1 gram) PO QNOON #120 tabs 10/09/22 albuterol sulfate 90 mcg/actuation 1 puff PO Q6H PRN shortness of 10/13/22 aerosol inhaler (Ventolin HFA) breath or wheezing 30 days #8.5 grams tiotropium bromide 18 mcg capsule 1 cap inhalation DAILY copd 30 10/13/22 with inhalation device (Spiriva days #30 inhalations with HandiHaler) diclofenac sodium 1 % topical gel 2 g topical QID PRN pain #100 grams 10/31/22 mirtazapine 30 mg tablet 30 mg PO BEDTIME 90 days #90 tabs 11/11/22 hydroxyzine HCl 50 mg tablet 50 mg PO BEDTIME #90 tabs 12/19/22 losartan 25 mg tablet 25 mg PO DAILY 30 days #30 tabs 12/19/22 metoprolol succinate 50 mg 50 mg PO DAILY #90 tabs 12/19/22 tablet,extended release 24 hr solifenacin 10 mg tablet 10 mg PO DAILY #90 tabs 12/19/22 nicotine 21 mg/24 hr daily 1 patch transdermal DAILY 7 days 12/29/22 transdermal patch #28 ea fluticasone propionate 50 1 spray intranasal DAILY #16 grams 01/10/23 mcg/actuation nasal spray,suspension lorazepam 1 mg tablet 1 mg PO BID PRN anxiety 28 days 01/19/23 #56 tabs escitalopram oxalate 20 mg tablet 20 mg PO DAILY #90 tabs 01/28/23 amoxicillin 500 mg capsule 2,000 mg (4 x 500 mg) PO ONCE #4 02/03/23 caps cholecalciferol (vitamin D3) 50 50 mcg PO DAILY 90 days #90 caps 02/05/23 mcg (2,000 unit) capsule alosetron 0.5 mg tablet 1 mg (2 x 0.5 mg) PO DAILY #60 tabs 02/23/23 oxycodone 5 mg tablet 5 mg PO .1-2 times daily PRN pain 03/06/23 10 days #20 tabs pantoprazole 40 mg tablet,delayed 40 mg PO DAILY 90 days #90 tabs 03/06/23 release amoxicillin 875 mg-potassium 1 tab PO BID 7 days #14 tabs 03/09/23 clavulanate 125 mg tablet docusate sodium 100 mg capsule 100 mg PO BID #20 caps 03/09/23 (Colace) polyethylene glycol 3350 17 17 g PO BID #238 grams 03/09/23 gram/dose oral powder (Miralax) sennosides 8.6 mg tablet (senna) 8.6 mg PO BEDTIME #14 tabs 03/09/23 Allergies Allergy/AdvReac Type Severity Reaction Status Date / Time No Known Allergies Allergy Unknown unknown Verified 03/09/23 08:25 [NO KNOWN ALLERGIES] Review of Systems Review of Systems: Constitutional : No Weight loss, No Fever, No Chills, No Fatigue, No Malaise ENT/Mouth : No sore throat, No Rhinorrhea Eyes: No Eye Pain, No Swelling, No Redness Cardiovascular : No Chest Pain, No SOB, No Dyspnea on Exertion, No Orthopnea, No Edema, No Palpitations Respiratory : No Cough, No Sputum, No Wheezing Gastrointestinal : No Nausea, No Vomiting, No Diarrhea, No Constipation, No abdominal Pain, No Hematochezia, No Melena Genitourinary : No Dysuria, No Urinary Frequency, No Hematuria, Musculoskeletal : No joint pain, No Myalgias, No Joint Swelling Skin : No Skin Lesions, No rash Neuro : No Weakness, No Numbness, No Dizziness, No Headache Psych : No Anxiety/Panic, No Depression Heme/Lymph: No Bruising, + Bleeding,No Lymphadenopathy All other systems reviewed and are negative Yes all other systems are reviewed and are negative [facility] Past Medical History Attestation statement: The following information was validated with the patient. Source: old records reviewed and nursing notes reviewed Medical History Bronchitis Nicotine dependence, cigarettes, uncomplicated Nonrheumatic mitral (valve) insufficiency Pulmonary nodule History of hepatitis C Osteopenia (~2011) COPD (chronic obstructive pulmonary disease) IV drug user Endocarditis of mitral valve (~11/2017) Mitral valve prolapse Mitral regurgitation Early satiety Paresthesia of left leg Allergic rhinitis Facet arthritis of lumbar region Cervical spondylosis Vitamin D deficiency Pure hypercholesterolemia Benign essential hypertension Depression GERD (gastroesophageal reflux disease) Anxiety Surgical History History of liver biopsy (~2009) History of partial colectomy (~2014) History of hysteroscopy (~2010) History of colonoscopy (~2017) Family History Family History Father Internal bleeding Mother Medical history unknown Social History Social History Housing: House Housing Other:: lives alone with her cat Malena Alcohol intake: former Patient Tobacco Use Status: Current everyday Tobacco user Tobacco use type: Cigarette Cigarette Packs Per Day: 0.5 Cigarettes Per Day: 10 Years Smoked: 44 years (onset 15, 1/2-3/4ppd x 44yrs, 28pyh) Smoked in Last 30 Days: Yes e-Cigarette/Vaping Use: Never Used Second Hand Smoke Exposure: Yes Use of substances other than those prescribed or required for medical reasons: No Substance Use Type: Marijuana Advance Directives: Yes Advance Directives on File: Yes Advance Directives Date on File: 12/18/21 Patient : No service: No Current occupational status: unemployed Sexual orientation: Straight/Heterosexual Gender identity: Female Cognitive needs: No Hearing needs: No Vision needs: Yes Physical Exam Vital Signs: Vital Signs: Last Vital Signs Temp 97.2 F 03/09/23 08:28 Pulse 72 03/09/23 13:22 Resp 16 03/09/23 13:22 BP 149/91 H 03/09/23 13:22 Pulse Ox 98 03/09/23 13:22 O2 Del Method Room Air 03/09/23 13:22 BMI result Body Mass Index 23.2 vss Appearance: Alert.? Oriented X3.? No acute distress.? Head: Normocephalic, atraumatic, no step-offs or deformities Eyes: Pupils equal, round and reactive to light.? ENT: Pharynx normal.?+ bleeding from right nares Neck: Normal inspection.? Neck supple.? CVS: Normal heart rate and rhythm.? Pulses normal.? Respiratory: No respiratory distress.? Breath sounds normal.? Abdomen: Soft and nontender.? Skin: Skin warm and dry.? Normal skin color.? Normal skin turgor.? Extremities: No lower extremity edema.? No calf ttp. 5/5 strength to bilateral upper and lower extremities Neuro: Oriented X 3.? No motor deficit.? No sensory deficit. CN 2-12 intact Course Reevaluation(s) Reevaluation #1: Patient has a petechial rash to her right hand, now having nausea, vomiting, abdominal pain. Nose is now bleeding less however still having some bleeding but patient continues to blow her nose despite us telling her to stop. Time: 12:32 Reevaluation #2: Bleeding improved, however placed gauze soaked in TXA in to patient's right naris. Patient did start complaining of severe abdominal pain initially 10/10 that started suddenly while in the department she also started having nausea, vomiting, there is red tinged blood in vomit however this is likely from postnasal drip, patient also started having petechiae to her right hand. Labs ordered imaging ordered. Will discuss this case with my attending Time: 13:37 Reevaluation #3: I saw the patient and discussed the history with the PA and agree with the plan and treatment Time: 13:46 Additional Reevaluation(s): 1441 Spoke to my attending still some bleeding to r nares will do nasal packing advised follow up with ENT. Augmentin ordered for prophylaxis. Educated patient on diagnosis and treatment plan, answered all question, patient verbalizes understanding. At this time patient will be discharged home, advised to return with new or worsening symptoms. Educated on worrisome signs and symptoms and when to return. At this time I feel comfortable discharge home. 5.5 rhinorocket applied no complications Medications Administered Discontinued Medications Generic Name Dose Route Start Last Admin Trade Name Freq PRN Reason Stop Dose Admin Iohexol 85 ml 03/09/23 13:20 03/09/23 13:20 Iohexol 350 Mg/Ml 100 Ml Infus..Btl IV 03/09/23 13:21 85 ml ONCE ONE Administration Oxymetazoline HCl 2 spray 03/09/23 10:29 03/09/23 10:32 Oxymetazoline Hcl 0.05 % Nasal 15 Ml [place] NOSTRIL-B 03/09/23 10:30 2 spray ONCE ONE Administration Tranexamic Acid 500 mg 03/09/23 12:30 03/09/23 13:19 Tranexamic Acid 1,000 Mg/10 Ml Vial INTRANASAL 03/09/23 12:31 500 mg ONCE ONE Administration Medical Decision Making Medical Decision Making MDM Narrative: 1038 62-year-old female presents with bleeding nose intermittently for the past 2 days Physical exam with active bleeding from the right nostril This is likely a anterior nose bleed/ chest low back strain angle, unlikely posterior bleed. Will rule out acute anemia. Although unlikely. Immediately applied pressure to site, and Afrin ordered. Plan- observe Differential Diagnosis Differential Diagnoses: The differential diagnosis associated with the presentation includes This is likely a anterior nose bleed/ chest low back strain angle, unlikely posterior bleed. Will rule out acute anemia. Although unlikely. Lab Data 03/09/23 10:51 03/09/23 10:51 Labs: Lab Results 03/09/23 03/09/23 Range/Units 10:51 13:49 WBC 7.6 (4.8-10.8) X10*3/uL RBC 4.61 (4.20-5.50) X10*6/uL Hgb 14.0 (12.0-16.0) g/dl Hct 41.8 (37.0-47.0) % MCV 90.7 (80.0-98.0) fL MCH 30.4 (27.0-33.0) pg MCHC 33.5 (31.0-35.0) g/dl RDW 13.0 (11.0-16.0) % Plt Count 173 (160-400) X10*3/uL MPV 9.3 L (9.4-12.3) fL Immature Gran % (Auto) 0.4 (0.0-0.4) % Neut % (Auto) 61.3 (45-73) % Lymph % (Auto) 29.3 (20-40) % Sullivan % (Auto) 6.5 (2-11) % Eos % (Auto) 1.7 (0-4) % Baso % (Auto) 0.8 (0-2) % Lymph # (Auto) 2.2 (1.2-4.9) X10*3/uL Sullivan # (Auto) 0.5 (0.1-1.2) X10*3/uL Eos # (Auto) 0.1 (0.0-0.4) X10*3/uL Baso # (Auto) 0.1 (0.0-0.2) X10*3/uL Abs Immat Gran (auto) 0.03 (0.00-0.03) X10*3/uL Absolute Neuts (auto) 4.6 (2.0-8.3) x10*3/uL Absolute Nucleated RBC 0.000 (0.0-0.012) X10*3/uL Nucleated RBC % (auto) 0.0 (0.0-0.2) /100WBC PT 10.5 L (11.1-13.3) SEC INR 0.9 (0.9-1.1) Sodium 143 (135-145) mmol/L Potassium 4.4 (3.3-5.1) mmol/L Chloride 111 H (96-108) mmol/L Carbon Dioxide 23 (22-29) mmol/L Anion Gap 13 (12-20) BUN 12 (9-16) mg/dL Creatinine 0.69 (0.5-1.4) mg/dL Estim Creat Clear Calc 66.0 Estimated GFR > 60 Random Glucose 111 (60-115) mg/dL Calcium 9.4 (8.4-10.2) mg/dL Magnesium 2.1 (1.6-2.6) mg/dL Total Bilirubin 0.3 (0.0-1.0) mg/dL AST 17 (5-31) U/L ALT 5 (0-31) U/L Alkaline Phosphatase 71 (39-117) U/L Total Protein 7.2 (6.5-8.0) g/dL Albumin 4.1 (3.5-5.0) g/dL Urine Color Yellow Urine Appearance Clear Urine pH 6.5 (5.0-9.0) Ur Specific [place] <= 1.005 (1.005-1.025) Urine Protein Negative (Neg-Trace) mg/dL Urine Glucose (UA) Negative (Negative) mg/dL Urine Ketones Negative (Negative) mg/dL Urine Blood Trace (Negative) Urine Nitrite Negative (Negative) Ur Leukocyte Esterase Negative (Negative) Urine RBC 3-5 H (0-2) /HPF Urine WBC 0-5 (0-5) /HPF Ur Squamous Epith Cells 3-5 (0-2) /HPF Urine Bacteria None Seen (None Seen) Hyaline Casts 0-2 (0-2) /LPF Critical Care Time Critical Care Time Critical Care Time: Yes Total Critical Care Time: 45 Attestation: I attest to this time spent taking care of the patient, obtaining history, physical, reviewing labs, imaging, speaking to my attending, speaking to specialist. Discharge Plan Discharge Clinical Impression: Epistaxis, Abdominal pain, Nausea & vomiting, Constipation Patient Disposition: Home, Self-Care Instructions: Constipation (ED), Nosebleed (ED), Acute Nausea and Vomiting (ED), Abdominal Pain (ED) Additional Instructions: Take your medications as prescribed. If you were prescribed antibiotics today, it is important that you take your medication to their entirety, do not skip any doses, do not finish them early. Follow-up with your primary care provider this week. Follow up with ears nose and throat doctor call today to schedule an appointment. The nasal packing should be removed in 3 days here or with ENT Return to the emergency department with new or worsening symptoms. Such as fevers, chills, chest pain, shortness of breath, nausea, vomiting, dizziness, headache, vision changes, lethargy In case of emergency call 911 CT/CT abdomen pelvis w IV con IMPRESSION: Moderate constipation. Otherwise no acute intra-abdominal process seen. Fleischner guidelines were followed. Prescriptions: New amoxicillin-pot clavulanate 875-125 mg tablet 1 tab PO BID 7 Days Qty: 14 0RF docusate sodium [Colace] 100 mg capsule 100 mg PO BID Qty: 20 0RF polyethylene glycol 3350 [Miralax] 17 gram/dose powder 17 g PO BID Qty: 238 0RF sennosides [senna] 8.6 mg tablet 8.6 mg PO BEDTIME Qty: 14 0RF No Action ibuprofen 600 mg tablet 600 mg PO Q8H PRN (Reason: pain) 30 Days Qty: 90 1RF Rx Instructions: take with food cyclobenzaprine 5 mg tablet 5 mg PO TID PRN (Reason: muscle spasm) 30 Days Qty: 90 1RF aspirin 81 mg tablet,delayed release (DR/EC) 81 mg PO DAILY 90 Days Qty: 90 3RF simvastatin 40 mg tablet 40 mg PO BEDTIME Qty: 90 1RF diclofenac sodium 1 % gel 2 g topical QID PRN (Reason: pain) Qty: 100 1RF Rx Instructions: apply to affected/painful areas up to 4 times a day as needed metoprolol succinate 50 mg tablet extended release 24 hr 50 mg PO DAILY Qty: 90 2RF hydroxyzine HCl 50 mg tablet 50 mg PO BEDTIME Qty: 90 1RF losartan 25 mg tablet 25 mg PO DAILY 30 Days Qty: 30 3RF solifenacin 10 mg tablet 10 mg PO DAILY Qty: 90 1RF nicotine 21 mg/24 hr patch 24 hour 1 patch transdermal DAILY 7 Days Qty: 28 0RF fluticasone propionate 50 mcg/actuation spray,suspension 1 spray intranasal DAILY Qty: 16 5RF lorazepam 1 mg tablet 1 mg PO BID PRN (Reason: anxiety) 28 Days Qty: 56 0RF escitalopram oxalate 20 mg tablet 20 mg PO DAILY Qty: 90 1RF amoxicillin 500 mg capsule 2,000 mg PO ONCE Qty: 4 1RF Rx Instructions: Take 4 capsules 2 hours before procedure cholecalciferol (vitamin D3) 50 mcg (2,000 unit) capsule 50 mcg PO DAILY 90 Days Qty: 90 3RF Rx Instructions: 1 capsule Orally Once a day alosetron 0.5 mg tablet 1 mg PO DAILY Qty: 60 3RF oxycodone 5 mg tablet 5 mg PO .1-2 times daily PRN (Reason: pain) 10 Days Qty: 20 0RF pantoprazole 40 mg tablet,delayed release (DR/EC) 40 mg PO DAILY 90 Days Qty: 90 1RF ondansetron 4 mg tablet,disintegrating 4 mg PO Q8H PRN (Reason: nausea and vomiting) Qty: 20 0RF ferrous sulfate [Feosol] 325 mg (65 mg iron) tablet 325 mg PO DAILY 30 Days Qty: 30 5RF mirtazapine 30 mg tablet 30 mg PO BEDTIME 90 Days Qty: 90 1RF silver sulfadiazine 1 % cream topical BID albuterol sulfate [Ventolin HFA] 90 mcg/actuation HFA aerosol inhaler 1 puff PO Q6H PRN (Reason: shortness of breath or wheezing) 30 Days Qty: 8.5 3RF Spiriva with HandiHaler 18 mcg capsule, w/inhalation device 1 cap inhalation DAILY 30 Days Qty: 30 5RF Rx Instructions: puncture 1 cap using device; one dose = 2 inhalations hydrocortisone [Proctosol HC] 2.5 % cream with perineal applicator 1 appl [place] BID PRN (Reason: hemorrhoids) Qty: 30 0RF metoclopramide HCl [Reglan] 5 mg tablet 5 mg PO .TIDAC 30 Days Qty: 90 6RF sucralfate [Carafate] 1 gram tablet 4 g PO QNOON Qty: 120 3RF hydrocortisone [Proctosol HC] 2.5 % cream with perineal applicator 1 appl IL TID Qty: 30 6RF Rx Instructions: BE SURE TO INCLUDE RECTAL APPICATOR!! Referrals: Sarthak Person MD [Primary Care Provider] - 2 days [place] Best [Physician] - 1 day Stand Alone Forms: Work/School Release Interventions: ED Discharge Assessment Last Done: 03/09/23 14:46
--- NOTE | 2023-03-09 10:48 | PC.NURSE ---
tech bedside obtaining labs.
[2023-03-09 10:55] LABS: MANUAL DIFF FLAG NO
[2023-03-09 10:56] LABS: Basophils Absolute Auto 0.1 X10*3/uL (0.0-0.2); Basophils Percent Auto 0.8 % (0-2); Eosinophils Absolute Auto 0.1 X10*3/uL (0.0-0.4); Eosinophils Percent Auto 1.7 % (0-4); Hematocrit 41.8 % (37.0-47.0); Imm Gran Abs Auto 0.03 X10*3/uL (0.00-0.03); Imm Gran Pct Auto 0.4 % (0.0-0.4); Lymphocytes Absolute Auto 2.2 X10*3/uL (1.2-4.9); Lymphocytes Percent Auto 29.3 % (20-40); Mean Corpuscular HGB Conc 33.5 g/dl (31.0-35.0); Mean Corpuscular Hemoglobin 30.4 pg (27.0-33.0); Mean Corpuscular Volume 90.7 fL (80.0-98.0); Mean Platelet Volume 9.3 fL (9.4-12.3); Monocytes Absolute Auto 0.5 X10*3/uL (0.1-1.2); Monocytes Percent Auto 6.5 % (2-11); Neutrophils Absolute Auto 4.6 x10*3/uL (2.0-8.3); Neutrophils Percent Auto 61.3 % (45-73); Platelet Count 173 X10*3/uL (160-400); Red Blood Count 4.61 X10*6/uL (4.20-5.50); White Blood Count 7.6 X10*3/uL (4.8-10.8)
[2023-03-09 11:13] LABS: Alanine Aminotransferase 5 U/L (0-31); Albumin Level 4.1 g/dL (3.5-5.0); Alkaline Phosphatase 71 U/L (39-117); Anion Gap 13 (12-20); Aspartate Amino Transferase 17 U/L (5-31); Bilirubin Total 0.3 mg/dL (0.0-1.0); Blood Urea Nitrogen 12 mg/dL (9-16); Calcium 9.4 mg/dL (8.4-10.2); Carbon Dioxide 23 mmol/L (22-29); Chloride 111 mmol/L (96-108); Estimated Glomerular Filt Rate > 60; Glucose Random 111 mg/dL (60-115); INTERNATIONAL NORM RATIO 0.9 (0.9-1.1); Magnesium 2.1 mg/dL (1.6-2.6); Potassium 4.4 mmol/L (3.3-5.1); Prothrombin Time 10.5 SEC (11.1-13.3); Sodium 143 mmol/L (135-145); Total Protein 7.2 g/dL (6.5-8.0)
--- NOTE | 2023-03-09 12:05 | PC.NURSE ---
bleeding controlled post medication administration. pt no longer applying pressure/has no nose clips in place.
--- NOTE | 2023-03-09 12:30 | PC.NURSE ---
new onset petechial rash noted to right hand. provider aware/assessing pt. rash does not radiate elsewhere.
--- NOTE | 2023-03-09 12:52 | PC.NURSE ---
20gIV placed in the right AC - pt awaiting to go to CT at this time.
--- NOTE | 2023-03-09 13:07 | PC.NURSE ---
pt to CT at this time. will administer medication when pt returns.
[2023-03-09] MEDS: Tranexamic Acid 1,000 MG/10 ML VIAL 500 MG INTRANASAL (13:19)
[2023-03-09] MEDS: iohexoL 350 MG/ML 100 ML INFUS..BTL 85 ML IV (13:20)
[2023-03-09 13:22] VITALS: BP 149/91; PULSE 72; RESP 16; O2SAT 98
--- NOTE | 2023-03-09 13:24 | PC.NURSE ---
medication administered per provider order. medication soaking in gauze - gauze applied to right nostril.
[2023-03-09 14:04] LABS: Appearance Urine Clear; Color Urine Yellow; Glucose Urine UA Negative (Negative); Leukocyte Esterase Urine Negative (Negative); Nitrite Urine Negative (Negative); PH 6.5 (5.0-9.0); Specific Gravity - Urine <= 1.005 (1.005-1.025); UMIC TRIGGER UACC YES; Urine Blood Trace (Negative); Urine Ketones Negative (Negative); Urine Protein Negative (Neg-Trace)
[2023-03-09 14:17] LABS: Bacteria Urine None Seen (None Seen); Hyaline Casts Urine 0-2 /LPF (0-2); WBC Urine 0-5 /HPF (0-5)
--- NOTE | 2023-03-09 14:57 | PC.NURSE ---
rhinorocket administered by ED provider.
== END 2023-03-09 14:57 | disposition home or self-care (01) ==
PROVIDERS: Physician Assistant; Emergency Provider Emergency Medicine; PCP Internal Medicine
DX: R04.0 Epistaxis (principal); R00.1 Bradycardia, unspecified; I10 Essential (primary) hypertension; F17.210 Nicotine dependence, cigarettes, uncomplicated; Z71.6 Tobacco abuse counseling; Z79.899 Other long term (current) drug therapy
CPT/HCPCS: 36415; 74177; 80053; 81001; 81003; 83735; 85025; 85610; 99284; Q9967

== ENCOUNTER 2023-03-12 08:57 | Emergency (ER) | payer MEDICARE, MEDICAID, SELFPAY ==
[2023-03-12 09:21] VITALS: BP 110/81; PULSE 76; RESP 18; TEMP 36.6; O2SAT 98; BMI 22.9
--- NOTE | 2023-03-12 10:16 | ED_ITS ---
HPI - General Adult General Chief complaint: General Medical Stated complaint: Removal of tube from nose Time Seen by Provider: 03/12/23 12:12 Source: patient, RN notes reviewed and old records reviewed Mode of arrival: ambulatory History of Present Illness HPI narrative: 62-year-old female history of PVCs, sinus bradycardia, IV drug abuse, hepatitis- C, hypertension, GERD, anemia, presenting to the ED for nasal packing/rhino rocket removal. Patient was seen and treated in our ED on 03/08 and 03/09, had rhino rocket placed on 03/09 due to uncontrolled bleeding, told to follow-up with ENT, prescribed prophylactic Augmentin. Patient states ENT had no availability for appointments. Admits Augmentin given her horrible diarrhea, admits to taking 1 day of medication. Denies recurrent or persistent bleeding, lightheadedness/dizziness or anticoagulation use Related Data Home Medications Medication Instructions Recorded Confirmed silver sulfadiazine 1 % topical appl topical BID 07/16/22 02/24/23 cream Previous Rx's Medication Instructions Recorded ibuprofen 600 mg tablet 600 mg PO Q8H PRN pain 30 days #90 09/27/21 tabs ondansetron 4 mg disintegrating 4 mg PO Q8H PRN nausea and 12/18/21 tablet vomiting #20 tabs ferrous sulfate 325 mg (65 mg 325 mg PO DAILY 30 days #30 tabs 02/04/22 iron) tablet (Feosol) hydrocortisone 2.5 % topical cream 1 appl [place] BID PRN hemorrhoids #30 06/17/22 with perineal applicator grams (Proctosol HC) metoclopramide HCl 5 mg tablet 5 mg PO .TIDAC 30 days #90 tabs 06/17/22 (Reglan) cyclobenzaprine 5 mg tablet 5 mg PO TID PRN muscle spasm 30 06/20/22 days #90 tabs aspirin 81 mg tablet,delayed 81 mg PO DAILY 90 days #90 tabs 07/16/22 release simvastatin 40 mg tablet 40 mg PO BEDTIME #90 tabs 08/16/22 hydrocortisone 2.5 % topical cream 1 appl AZ TID hemorrhoids #30 grams 10/09/22 with perineal applicator (Proctosol HC) sucralfate 1 gram tablet (Carafate) 4 g (4 x 1 gram) PO QNOON #120 tabs 10/09/22 albuterol sulfate 90 mcg/actuation 1 puff PO Q6H PRN shortness of 10/13/22 aerosol inhaler (Ventolin HFA) breath or wheezing 30 days #8.5 grams tiotropium bromide 18 mcg capsule 1 cap inhalation DAILY copd 30 10/13/22 with inhalation device (Spiriva days #30 inhalations with HandiHaler) diclofenac sodium 1 % topical gel 2 g topical QID PRN pain #100 grams 10/31/22 mirtazapine 30 mg tablet 30 mg PO BEDTIME 90 days #90 tabs 11/11/22 hydroxyzine HCl 50 mg tablet 50 mg PO BEDTIME #90 tabs 12/19/22 losartan 25 mg tablet 25 mg PO DAILY 30 days #30 tabs 12/19/22 metoprolol succinate 50 mg 50 mg PO DAILY #90 tabs 12/19/22 tablet,extended release 24 hr solifenacin 10 mg tablet 10 mg PO DAILY #90 tabs 12/19/22 nicotine 21 mg/24 hr daily 1 patch transdermal DAILY 7 days 12/29/22 transdermal patch #28 ea fluticasone propionate 50 1 spray intranasal DAILY #16 grams 01/10/23 mcg/actuation nasal spray,suspension lorazepam 1 mg tablet 1 mg PO BID PRN anxiety 28 days 01/19/23 #56 tabs escitalopram oxalate 20 mg tablet 20 mg PO DAILY #90 tabs 01/28/23 amoxicillin 500 mg capsule 2,000 mg (4 x 500 mg) PO ONCE #4 02/03/23 caps cholecalciferol (vitamin D3) 50 50 mcg PO DAILY 90 days #90 caps 02/05/23 mcg (2,000 unit) capsule alosetron 0.5 mg tablet 1 mg (2 x 0.5 mg) PO DAILY #60 tabs 02/23/23 oxycodone 5 mg tablet 5 mg PO .1-2 times daily PRN pain 03/06/23 10 days #20 tabs pantoprazole 40 mg tablet,delayed 40 mg PO DAILY 90 days #90 tabs 03/06/23 release amoxicillin 875 mg-potassium 1 tab PO BID 7 days #14 tabs 03/09/23 clavulanate 125 mg tablet docusate sodium 100 mg capsule 100 mg PO BID #20 caps 03/09/23 (Colace) polyethylene glycol 3350 17 17 g PO BID #238 grams 03/09/23 gram/dose oral powder (Miralax) sennosides 8.6 mg tablet (senna) 8.6 mg PO BEDTIME #14 tabs 03/09/23 mupirocin 2 % topical ointment 1 appl topical BID #15 grams 03/12/23 Allergies Allergy/AdvReac Type Severity Reaction Status Date / Time No Known Allergies Allergy Unknown unknown Verified 03/09/23 08:25 [NO KNOWN ALLERGIES] Review of Systems Review of Systems: Constitutional: No Fever, No Chills ENT/Mouth: +rhinorocket in place,No Ear Pain, No Nasal Congestion, No Sinus Pain, No Hoarseness, No sore throat, No Rhinorrhea, No Swallowing Difficulty Cardiovascular: No Chest Pain, No SOB Respiratory: No Cough, No Sputum Gastrointestinal: No Nausea, No Vomiting, No Abdominal pain Musculoskeletal: No joint pain Skin: No Skin Lesions, No rash Neuro: No Weakness Yes all other systems are reviewed and are negative Constitutional: Constitutional: Reports as per [facility] Past Medical History Attestation statement: The following information was validated with the patient. Source: old records reviewed Medical History Bronchitis Nicotine dependence, cigarettes, uncomplicated Nonrheumatic mitral (valve) insufficiency Pulmonary nodule History of hepatitis C Osteopenia (~2011) COPD (chronic obstructive pulmonary disease) IV drug user Endocarditis of mitral valve (~11/2017) Mitral valve prolapse Mitral regurgitation Early satiety Paresthesia of left leg Allergic rhinitis Facet arthritis of lumbar region Cervical spondylosis Vitamin D deficiency Pure hypercholesterolemia Benign essential hypertension Depression GERD (gastroesophageal reflux disease) Anxiety Surgical History History of liver biopsy (~2009) History of partial colectomy (~2014) History of hysteroscopy (~2010) History of colonoscopy (~2017) Family History Family History Father Internal bleeding Mother Medical history unknown Social History Social History Housing: House Housing Other:: lives alone with her cat Malena Alcohol intake: former Patient Tobacco Use Status: Current everyday Tobacco user Tobacco use type: Cigarette Cigarette Packs Per Day: 0.5 Cigarettes Per Day: 10 Years Smoked: 45 years (onset 15, 1/2-3/4ppd x 44yrs, 28pyh) e-Cigarette/Vaping Use: Never Used Second Hand Smoke Exposure: Yes Substance Use Type: Marijuana Advance Directives: Yes Advance Directives on File: Yes Advance Directives Date on File: 12/18/21 service: No Current occupational status: unemployed Sexual orientation: Straight/Heterosexual Gender identity: Female Cognitive needs: No Hearing needs: No Vision needs: Yes Physical Exam ED Vital Signs: Vital Signs - 24 hr 03/12/23 09:21 Temperature 98 F Pulse Rate 76 Respiratory Rate 18 Blood Pressure 110/81 Pulse Oximetry 98 Oxygen Delivery Method Room Air BMI result Body Mass Index 22.9 Const General: cooperative, healthy appearing and no acute distress Orientation/consciousness: patient oriented x3 Limitations: no limitations HENMT Other: Rhino rocket in place to right nare. No active bleeding. Posterior oropharynx WNL Head: Yes normal to inspection and Yes atraumatic Ears: hearing grossly normal bilaterally General nose exam: Normal external nose present Face and sinus: Yes normal facial exam Eyes General: appearance normal, both eyes and all related structures EOM: EOMs intact bilaterally Neck Neck: Yes normal visual inspection and Yes no meningeal signs Resp Effort & Inspection: normal respiratory effort and no respiratory distress Cardio Rate: regular rate Skin Rashes: no rashes Wounds: no wounds Neuro General: patient oriented x3, tone normal and no meningeal signs Cranial nerves: Yes CN's II-XII intact bilaterally Gait exam (Neuro): Normal gait present Extrem General: Yes normal to inspection Course Course Course Narrative: -1259--no evidence of rebleed. Patient is safe for discharge at this time Results discussed with patient including worrisome signs and symptoms and strict return precautions, and when to return to the emergency department. They verbalized understanding and feel safe for discharge at this time. Medical Decision Making Medical Decision Making MDM Narrative: 62-year-old female history of PVCs, sinus bradycardia, IV drug abuse, hepatitis- C, hypertension, GERD, anemia, presenting to the ED for nasal packing/rhino rocket removal. On exam vital signs stable, NAD, nontoxic appearing. Rhino rocket in place and removed without complication. No evidence of rebleed. Will monitor for 30 minutes. Patient unable to tolerate Augmentin. Will give topical mupirocin Recommended follow-up with ENT Please refer to course for remaining clinical decision making, interpretation of labs/imaging results, and discussions with consultants and/or family members. Results discussed with patient including worrisome signs and symptoms and strict return precautions, and when to return to the emergency department. They verbalized understanding and feel safe for discharge at this time. Differential Diagnosis Differential Diagnoses: The differential diagnosis associated with the presentation includes As above External Record Review External record reviewed: Inpatient record, Office record, Outpatient record, Prior outpatient labs, Prior outpatient radiology, Primary care record and Outside ED record Tests considered The following testing was considered but not selected: As above Discharge Plan Discharge Clinical Impression: Encounter for removal of nasal packing Patient Disposition: Home, Self-Care Instructions: Nosebleed (ED) Additional Instructions: Continue to take antibiotics if you can tolerate. Mupirocin as a topical antibiotic you may put on the outside of her near. Avoid any nasal picking, nose blowing, increased pressure to face. Keep near moist with saline Follow-up with ENT If bleeding recurs hold 15 minutes of pressure without cessation, if still continues return to the ED Prescriptions: New mupirocin 2 % ointment 1 appl topical BID Qty: 15 0RF No Action ibuprofen 600 mg tablet 600 mg PO Q8H PRN (Reason: pain) 30 Days Qty: 90 1RF Rx Instructions: take with food cyclobenzaprine 5 mg tablet 5 mg PO TID PRN (Reason: muscle spasm) 30 Days Qty: 90 1RF aspirin 81 mg tablet,delayed release (DR/EC) 81 mg PO DAILY 90 Days Qty: 90 3RF simvastatin 40 mg tablet 40 mg PO BEDTIME Qty: 90 1RF diclofenac sodium 1 % gel 2 g topical QID PRN (Reason: pain) Qty: 100 1RF Rx Instructions: apply to affected/painful areas up to 4 times a day as needed metoprolol succinate 50 mg tablet extended release 24 hr 50 mg PO DAILY Qty: 90 2RF hydroxyzine HCl 50 mg tablet 50 mg PO BEDTIME Qty: 90 1RF losartan 25 mg tablet 25 mg PO DAILY 30 Days Qty: 30 3RF solifenacin 10 mg tablet 10 mg PO DAILY Qty: 90 1RF nicotine 21 mg/24 hr patch 24 hour 1 patch transdermal DAILY 7 Days Qty: 28 0RF fluticasone propionate 50 mcg/actuation spray,suspension 1 spray intranasal DAILY Qty: 16 5RF lorazepam 1 mg tablet 1 mg PO BID PRN (Reason: anxiety) 28 Days Qty: 56 0RF escitalopram oxalate 20 mg tablet 20 mg PO DAILY Qty: 90 1RF amoxicillin 500 mg capsule 2,000 mg PO ONCE Qty: 4 1RF Rx Instructions: Take 4 capsules 2 hours before procedure cholecalciferol (vitamin D3) 50 mcg (2,000 unit) capsule 50 mcg PO DAILY 90 Days Qty: 90 3RF Rx Instructions: 1 capsule Orally Once a day alosetron 0.5 mg tablet 1 mg PO DAILY Qty: 60 3RF oxycodone 5 mg tablet 5 mg PO .1-2 times daily PRN (Reason: pain) 10 Days Qty: 20 0RF pantoprazole 40 mg tablet,delayed release (DR/EC) 40 mg PO DAILY 90 Days Qty: 90 1RF ondansetron 4 mg tablet,disintegrating 4 mg PO Q8H PRN (Reason: nausea and vomiting) Qty: 20 0RF amoxicillin-pot clavulanate 875-125 mg tablet 1 tab PO BID 7 Days Qty: 14 0RF docusate sodium [Colace] 100 mg capsule 100 mg PO BID Qty: 20 0RF polyethylene glycol 3350 [Miralax] 17 gram/dose powder 17 g PO BID Qty: 238 0RF sennosides [senna] 8.6 mg tablet 8.6 mg PO BEDTIME Qty: 14 0RF ferrous sulfate [Feosol] 325 mg (65 mg iron) tablet 325 mg PO DAILY 30 Days Qty: 30 5RF mirtazapine 30 mg tablet 30 mg PO BEDTIME 90 Days Qty: 90 1RF silver sulfadiazine 1 % cream topical BID albuterol sulfate [Ventolin HFA] 90 mcg/actuation HFA aerosol inhaler 1 puff PO Q6H PRN (Reason: shortness of breath or wheezing) 30 Days Qty: 8.5 3RF Spiriva with HandiHaler 18 mcg capsule, w/inhalation device 1 cap inhalation DAILY 30 Days Qty: 30 5RF Rx Instructions: puncture 1 cap using device; one dose = 2 inhalations hydrocortisone [Proctosol HC] 2.5 % cream with perineal applicator 1 appl [place] BID PRN (Reason: hemorrhoids) Qty: 30 0RF metoclopramide HCl [Reglan] 5 mg tablet 5 mg PO .TIDAC 30 Days Qty: 90 6RF sucralfate [Carafate] 1 gram tablet 4 g PO QNOON Qty: 120 3RF hydrocortisone [Proctosol HC] 2.5 % cream with perineal applicator 1 appl [place] TID Qty: 30 6RF Rx Instructions: BE SURE TO INCLUDE RECTAL APPICATOR!! Referrals: Sarthak Person MD [Primary Care Provider] - [place] Best [Physician] - 1 week
== END 2023-03-12 13:06 | disposition home or self-care (01) ==
PROVIDERS: Emergency Provider Emergency Medicine Emergency Medical Services; PCP Internal Medicine
DX: Z48.00 Encounter for change or removal of nonsurgical wound dressing (principal); R04.0 Epistaxis
CPT/HCPCS: 99282

== ENCOUNTER 2023-04-07 09:25 | Outpatient (AMB) | payer MEDICARE, MEDICAID, SELFPAY ==
--- NOTE | 2023-04-07 09:29 | A.OFFVIS_ITS ---
Intake Vital Signs 04/07/23 09:30 Height 5 ft 2 in Weight 125 lb 10.616 oz BMI 23.0 BP 110/72 Blood Pressure Location Lt brachial Position Sitting Pulse 70 Intake Visit Reasons: 7 month follow up echo Intake Note: 7 month follow-up after echo feeling ok Electronic Assembly Required: No Allergies No Known Allergies [NO KNOWN ALLERGIES] Allergy (Unknown, Verified 03/09/23 08:25) unknown Medication List - Last Reconciled 04/07/23 by Michael Santos MD albuterol sulfate 90 mcg/actuation (Ventolin HFA) 1 puff PO Q6H PRN 30 days alosetron 1 mg (2 x 0.5 mg) PO DAILY amoxicillin 2,000 mg (4 x 500 mg) PO ONCE cholecalciferol (vitamin D3) 50 mcg PO DAILY 90 days cyclobenzaprine 5 mg PO TID PRN 30 days diclofenac sodium 1% 2 grams topical QID PRN escitalopram oxalate 20 mg PO DAILY ferrous sulfate (Feosol) 325 mg PO DAILY 30 days fluticasone propionate 50 mcg/actuation 1 spray intranasal DAILY hydroxyzine HCl 50 mg PO BEDTIME ibuprofen 600 mg PO Q8H PRN 30 days lorazepam 1 mg PO BID PRN 28 days losartan 25 mg PO DAILY 30 days metoclopramide HCl (Reglan) 5 mg PO .TIDAC 30 days metoprolol succinate ER 50 mg PO DAILY mirtazapine 30 mg PO BEDTIME 90 days mupirocin 2% 1 appl topical BID ondansetron 4 mg PO Q8H PRN oxycodone 5 mg PO .1-2 times daily PRN 10 days pantoprazole 40 mg PO DAILY 90 days polyethylene glycol 3350 (Miralax) 17 grams PO BID silver sulfadiazine 1% appl topical BID simvastatin 40 mg PO BEDTIME solifenacin 10 mg PO DAILY sucralfate (Carafate) 4 grams (4 x 1 gram) PO QNOON tiotropium bromide (Spiriva with HandiHaler) 1 cap inhalation DAILY 30 days HPI HPI Comments History of Present Illness Details Sarah comes for follow-up. He had episode of epistaxis that required ED presentation and required packing. She had upcoming appointment to ENT. She has not had any recurrent bleeding. She denies any significant symptoms related to mitral regurgitation. No worsening shortness of breath, orthopnea, PND. No prolonged palpitation irregular heartbeat. She complains of sharp pain in the left breast intermittently not related to exertion. The last for few seconds. Denies any lightheadedness, syncope. No prolonged irregular heartbeat. [facility] Medical History Bronchitis Nicotine dependence, cigarettes, uncomplicated Nonrheumatic mitral (valve) insufficiency Pulmonary nodule History of hepatitis C Osteopenia (~2011) COPD (chronic obstructive pulmonary disease) IV drug user Endocarditis of mitral valve (~11/2017) Mitral valve prolapse Mitral regurgitation Early satiety Paresthesia of left leg Allergic rhinitis Facet arthritis of lumbar region Cervical spondylosis Vitamin D deficiency Pure hypercholesterolemia Benign essential hypertension Depression GERD (gastroesophageal reflux disease) Anxiety Surgical History History of liver biopsy (~2009) History of partial colectomy (~2014) History of hysteroscopy (~2010) History of colonoscopy (~2017) Family History Father Internal bleeding Mother Medical history unknown Social History Housing: House Housing Other:: lives alone with her cat Malena Alcohol intake: former Patient Tobacco Use Status: Current everyday Tobacco user Tobacco use type: Cigarette Cigarette Packs Per Day: 0.5 Cigarettes Per Day: 10 Years Smoked: 45 years (onset 15, 1/2-3/4ppd x 44yrs, 28pyh) e-Cigarette/Vaping Use: Never Used Second Hand Smoke Exposure: Yes Substance Use Type: Marijuana Advance Directives Date on File: 12/18/21 service: No Current occupational status: unemployed Sexual orientation: Straight/Heterosexual Gender identity: Female Cognitive needs: No Hearing needs: No Vision needs: Yes Female Reproductive History Menstrual Age of Menarche: 14 Review of Systems Const Denies chills, Denies fatigue, Denies fever(s), Denies frequent falls, Denies weakness, Denies weight gain and Denies weight loss ENT Denies dizziness Card Denies chest pain, Denies leg edema, Denies lightheadedness, Denies palpitations, Denies dyspnea, Denies dyspnea on exertion, Denies orthopnea and Denies other (loss of consciousness) Resp Denies cough, Denies dyspnea and Denies dyspnea on exertion GI Denies hematochezia and Denies change in stool character Musc Denies abnormal gait, Denies muscle weakness, Denies numbness, Denies radiating pain into limb and Denies tingling Neuro Denies abnormal gait, Denies dizziness, Denies frequent falls, Denies numbness, Denies tingling and Denies weakness Endo Denies fatigue and Denies palpitations Physical Exam Vital Signs: Last Vital Signs Pulse 70 04/07/23 09:30 BP 110/72 04/07/23 09:30 BMI result Body Mass Index 23.0 Const General: cooperative, comfortable and no acute distress Orientation/consciousness: patient oriented x3 Neck Neck: Yes normal visual inspection and Yes no JVD Resp Effort & Inspection: normal respiratory effort Auscultation: no crackles, no rales, no rhonchi, wheezes expiratory wheezes and right lower and diminished lung sounds Cardio Rate: regular rate Rhythm: regular rhythm Heart sounds: S1 normal heart sound present, S2 normal heart sound present, no click, no gallops, Murmur heart sound present systolic mid (Mid to late systolic murmur at the apex) and no rubs Peripheral pulses: Peripheral pulses 2+ throughout GI Inspection: Yes normal to inspection Neuro General: patient oriented x3 Extrem General: Yes normal to inspection, No no pedal edema and No calf tenderness Assessment & Plan Assessment & Plan (1) Mitral regurgitation: Code(s): I34.0 - Nonrheumatic mitral (valve) insufficiency Plan: Mitral regurgitation related to mitral valve prolapse with moderate to severe mitral regurgitation with no secondary structure abnormality with no LV dilatation, pulmonary hypertension with significant left atrial enlargement. No signs or symptoms at this point time. Will continue monitor clinically and by echocardiogram. Follow-up in 1 year's time after an echocardiogram. Signs and symptoms of worsening cardiac function related to mitral regurgitation was discussed with her. Advised to avoid use of drugs especially IV drugs to reduce recurrent risk of endocarditis. Once cleared by ENT should restart aspirin therapy. SBE prophylaxis as per ACC/[facility] guidelines due to prior history of infective endocarditis. (2) PVC (premature ventricular contraction): Code(s): I49.3 - Ventricular premature depolarization Plan: PVCs without any clear symptoms. Avoid any medical therapy at this point time. Avoidance of stimulants was discussed. Stress mitigation strategies were discussed. Continue aggressive control blood pressure which is currently well optimized. Complete smoking cessation was advised Follow up in the clinic 1 year's time, sooner p.r.n.. Thank you for allowing me to partake in her care Medications: Changed From solifenacin 10 mg PO DAILY 90 tabs 1RF N32.81 - Overactive bladder To solifenacin 10 mg PO DAILY N32.81 - Overactive bladder Coding Level of Care Code Est Pt Level 4 (87977) Diagnoses Mitral regurgitation I34.0 PVC (premature ventricular contraction) I49.3
[2023-04-07 09:30] VITALS: BP 110/72; PULSE 70; BMI 23.0
== END 2023-04-07 09:53 | disposition home or self-care (01) ==
PROVIDERS: PCP Internal Medicine; Visit Provider Internal Medicine Cardiovascular Disease
DX: I34.0 Nonrheumatic mitral (valve) insufficiency (principal); I49.3 Ventricular premature depolarization
CPT/HCPCS: 99214

== ENCOUNTER → 2023-04-07 09:25 | Outpatient (BNVA) | payer MEDICARE, MEDICAID, SELFPAY | PROVIDERS: PCP Internal Medicine; Visit Provider Internal Medicine Cardiovascular Disease | DX: I34.0 Nonrheumatic mitral (valve) insufficiency (principal); I49.3 Ventricular premature depolarization | CPT/HCPCS: 99212 ==

== ENCOUNTER 2023-04-13 09:12 | Outpatient (AMB) | payer MEDICARE, MEDICAID, SELFPAY ==
--- NOTE | 2023-04-13 09:28 | MHC.OFFVIS ---
Intake Vital Signs 04/13/23 09:29 Height 5 ft 2 in Weight 125 lb BMI 22.9 BP 108/60 Blood Pressure Location Lt brachial Position Sitting Pulse 75 Pulse Source Pulse Oximeter Pulse Oximetry (%) 95 Oxygen Delivery Method Room Air Intake Visit Reasons: COPD Intake Note: pt is here for follow up and states she has a pain that is behind the left breast,some wheezing at night, Silo Operator Required: No Allergies No Known Allergies [NO KNOWN ALLERGIES] Allergy (Unknown, Verified 04/13/23 09:51) unknown Medication List - Last Reconciled 04/13/23 by Zulma Padilla MD albuterol sulfate 90 mcg/actuation (Ventolin HFA) 1 puff PO Q6H PRN 30 days alosetron 1 mg (2 x 0.5 mg) PO DAILY amoxicillin 2,000 mg (4 x 500 mg) PO ONCE cholecalciferol (vitamin D3) 50 mcg PO DAILY 90 days cyclobenzaprine 5 mg PO TID PRN 30 days escitalopram oxalate 20 mg PO DAILY ferrous sulfate (Feosol) 325 mg PO DAILY 30 days hydroxyzine HCl 50 mg PO BEDTIME ibuprofen 600 mg PO Q8H PRN 30 days lorazepam 1 mg PO BID PRN 28 days losartan 25 mg PO DAILY 30 days metoclopramide HCl (Reglan) 5 mg PO .TIDAC 30 days metoprolol succinate ER 50 mg PO DAILY mirtazapine 30 mg PO BEDTIME 90 days mupirocin 2% 1 appl topical BID ondansetron 4 mg PO Q8H PRN oxycodone 5 mg PO .1-2 times daily PRN 10 days pantoprazole 40 mg PO DAILY 90 days silver sulfadiazine 1% appl topical BID simvastatin 40 mg PO BEDTIME solifenacin 10 mg PO DAILY sucralfate (Carafate) 4 grams (4 x 1 gram) PO QNOON tiotropium bromide (Spiriva with HandiHaler) 1 cap inhalation DAILY 30 days Do you need a note to return to daycare/school/sports/work: No HPI COPD HPI Details 62 years old very pleasant female is here for follow-up for her COPD. Recently she had a visit to the emergency room because of bleeding from the right nostril. It was controlled with nasal packing., she has had no recurrence. Symptoms of allergic rhinitis are relatively controlled. She has appointment to see an ENT specialist in the next 1 week. Breathing has remained very stable and she uses albuterol only once in a while. She still smokes but smoking is down to 4 cigarettes a day, trying to cut down slowly. [facility] Medical History Bronchitis Nicotine dependence, cigarettes, uncomplicated Nonrheumatic mitral (valve) insufficiency Pulmonary nodule History of hepatitis C Osteopenia (~2011) COPD (chronic obstructive pulmonary disease) IV drug user Endocarditis of mitral valve (~11/2017) Mitral valve prolapse Mitral regurgitation Early satiety Paresthesia of left leg Allergic rhinitis Facet arthritis of lumbar region Cervical spondylosis Vitamin D deficiency Pure hypercholesterolemia Benign essential hypertension Depression GERD (gastroesophageal reflux disease) Anxiety Surgical History History of liver biopsy (~2009) History of partial colectomy (~2014) History of hysteroscopy (~2010) History of colonoscopy (~2017) Family History Father Internal bleeding Mother Medical history unknown Social History Housing: House Housing Other:: lives alone with her cat Malena Alcohol intake: former Patient Tobacco Use Status: Current everyday Tobacco user Tobacco use type: Cigarette Cigarette Packs Per Day: 0.5 Cigarettes Per Day: 10 Years Smoked: 45 years (onset 15, 1/2-3/4ppd x 44yrs, 28pyh) e-Cigarette/Vaping Use: Never Used Second Hand Smoke Exposure: Yes Substance Use Type: Marijuana Advance Directives Date on File: 12/18/21 service: No Current occupational status: unemployed Sexual orientation: Straight/Heterosexual Gender identity: Female Cognitive needs: No Hearing needs: No Vision needs: Yes Female Reproductive History Menstrual Age of Menarche: 14 Review of Systems Const All systems reviewed & are unremarkable except as noted in HPI and below Eyes Reports no additional complaints ENT Reports nasal congestion (Off and on due to allergic rhinitis) Card Denies chest pain at rest, Denies irregular heart rhythm and Denies leg edema Resp Reports as per HPI and Reports cough GI Reports heartburn (Controlled with med) Reports no additional complaints Musc Reports no additional complaints Skin/Breast Reports system reviewed and no additional complaints, except as documented Neuro Reports no additional complaints Psych Reports anxiety and Reports depression (Controlled with med) Endo Reports no additional complaints Jose L/Lymph Reports no additional complaints Physical Exam Vital Signs: Last Vital Signs Pulse 75 04/13/23 09:29 BP 108/60 04/13/23 09:29 Pulse Ox 95 04/13/23 09:29 Oxygen Delivery Method Room Air 04/13/23 09:29 BMI result Body Mass Index 22.9 Const General: comfortable, no acute distress, alert and awake Orientation/consciousness: patient oriented x3 HEENT Head: Yes normal to inspection General nose exam: No nasal polyps present, No nasal discharge present and Other nasal findings present (There is is small ulcerated lesion on the right side of the nasal septum,) Face and sinus: Yes sinuses nontender Mouth: oropharynx normal Throat: Yes posterior oropharynx normal Eyes General: appearance normal, both eyes and all related structures Neck Neck: Yes normal visual inspection, Yes no lymphadenopathy, Yes trachea midline and Yes no JVD Thyroid: Thyroid normal Chest Chest palpation & inspection: normal inspection of the chest, normal palpation of entire chest wall and no tenderness Resp Other: Percussion note hyper-resonant, breath sounds are distant with prolonged expiratory phase. There are no audible wheezes or rhonchi heard today. Cardio Palpation: normal PMI Rate: regular rate Rhythm: regular rhythm Heart sounds: no gallops and no murmurs GI Palpation (GI): Soft to palpation, nontender, No hepatosplenomegaly present and no masses Auscultation: normal bowel sounds Back/Spine/Pelvis Thoracic/Lumbar Spine: thoracic and lumbar spine normal to inspection Skin General skin exam: no rashes or lesions noted Neuro General: patient oriented x3 and no focal motor deficits Cranial nerves: Yes CN's II-XII intact bilaterally Extrem General: Yes normal to inspection, Yes no clubbing, cyanosis or edema and Yes no calf tenderness Psych Speech and movement: Normal speech and movement present Affect: Sad affect present (With depressed mood) Assessment & Plan Assessment & Plan (1) COPD (chronic obstructive pulmonary disease): Comment: Moderately Severe COPD ,stable. Code(s): J44.9 - Chronic obstructive pulmonary disease, unspecified Qualifiers: COPD type: emphysema Emphysema type: unspecified Qualified Code(s): J43.9 - Emphysema, unspecified Plan: Continue present regimen , SPIRIVA HandiHaler one inh daily is OK. USE Ventolin HFA 2 puffs Q 6 hours only p.r.n. if there is an episode of wheezing or persistent cough. (2) Pulmonary nodule: Comment: (8mm MARIA ELENA nodule remains stable on 2013 LDCT) Code(s): R91.1 - Solitary pulmonary nodule Plan: Continue Annual F U (3) Nicotine dependence, cigarettes, uncomplicated: Comment: (current smoker - onset 15, 1/2-3/4ppd x 45yrs, 28pyh) Advised to quit, or at least cut down. The number of cigarettes. Patient currently smoking 4 cigarettes a day. Code(s): F17.210 - Nicotine dependence, cigarettes, uncomplicated Plan: Again counseled to quit smoking completely. Or at least reduce the number of cigarettes to 2-3 day. Advised to continue annual follow-up, with LDCT . Coding Level of Care Code Est Pt Level 3 (15308) Diagnoses Pulmonary emphysema, unspecified emphysema type J43.9 COPD type: emphysema Emphysema type: unspecified Pulmonary nodule R91.1 Nicotine dependence, cigarettes, uncomplicated F17.210
[2023-04-13 09:29] VITALS: BP 108/60; PULSE 75; O2SAT 95; BMI 22.9
== END 2023-04-13 10:19 | disposition home or self-care (01) ==
PROVIDERS: PCP Internal Medicine; Visit Provider Internal Medicine
DX: J43.9 Emphysema, unspecified (principal); R91.1 Solitary pulmonary nodule; F17.210 Nicotine dependence, cigarettes, uncomplicated
CPT/HCPCS: 99213

== ENCOUNTER → 2023-04-13 09:12 | Outpatient (BNVA) | payer MEDICARE, MEDICAID, SELFPAY | PROVIDERS: PCP Internal Medicine; Visit Provider Internal Medicine | DX: J43.9 Emphysema, unspecified (principal); R91.1 Solitary pulmonary nodule; F17.210 Nicotine dependence, cigarettes, uncomplicated | CPT/HCPCS: 99212 ==

== ENCOUNTER 2023-04-16 08:44 | Outpatient (AMB) | payer MEDICARE, MEDICAID, SELFPAY ==
--- NOTE | 2023-04-16 08:46 | MHC.OFFVIS ---
Intake Vital Signs 04/16/23 08:47 Height 5 ft 2 in Weight 126 lb BMI 23.0 BP 130/74 Intake Visit Reasons: RISK CONTROL SPECIALIST annual exam Intake Note: has been having random pains in pelvic area she states it's not constant, has been having some rectal bleeding. Examination Supervisor Required: No Information Interpreted: non-clinical & clinical Material Reprocessing Associate: Material Reprocessing Associate Present (Todd) Allergies No Known Allergies [NO KNOWN ALLERGIES] Allergy (Unknown, Verified 04/16/23 08:51) unknown Is last menstrual period known: No Post menopausal: Yes HPI HPI Comments History of Present Illness Details She is a postmenopausal woman presenting for her annual dumper mold cleaner examination. She is doing well with concerns: Bilateral pelvic pain. Denies any urinary symptoms, vaginal odor, or discharge. Admits having rectal bleeding following her surgery, tearful expressing her concerns about her body image and the bleeding. She reports having a follow-up schedule with her GI provider to address this concern. Attempting to eat a healthy diet with calcium and vitamin D and stays active with exercise. Currently not sexually active. Denies any vaginal dryness or irritation. Smoker, cutting down-7cigs/d. Last pap smear; 2019. Last mammogram; 2022. Colonoscopy is UTD. Denies any family history of breast, ovarian or colon cancer. [facility] Medical History (Updated 04/16/23 @ 08:53 by DEVIKA Neves) Rectal prolapse Bronchitis Nicotine dependence, cigarettes, uncomplicated Nonrheumatic mitral (valve) insufficiency Pulmonary nodule History of hepatitis C Osteopenia (~2011) COPD (chronic obstructive pulmonary disease) IV drug user Endocarditis of mitral valve (~11/2017) Mitral valve prolapse Mitral regurgitation Early satiety Paresthesia of left leg Allergic rhinitis Facet arthritis of lumbar region Cervical spondylosis Vitamin D deficiency Pure hypercholesterolemia Benign essential hypertension Depression GERD (gastroesophageal reflux disease) Anxiety Surgical History History of liver biopsy (~2009) History of partial colectomy (~2014) History of hysteroscopy (~2010) History of colonoscopy (~2017) Family History Father Internal bleeding Mother Medical history unknown Social History Housing: House Housing Other:: lives alone with her cat Malena Alcohol intake: former Patient Tobacco Use Status: Current everyday Tobacco user Tobacco use type: Cigarette Cigarette Packs Per Day: 0.5 Cigarettes Per Day: 10 Years Smoked: 45 years (onset 15, 1/2-3/4ppd x 44yrs, 28pyh) e-Cigarette/Vaping Use: Never Used Second Hand Smoke Exposure: Yes Substance Use Type: Marijuana Advance Directives Date on File: 12/18/21 service: No Current occupational status: unemployed Sexual orientation: Straight/Heterosexual Gender identity: Female Cognitive needs: No Hearing needs: No Vision needs: Yes Female Reproductive History Menstrual Age of Menarche: 14 control method: none Total pregnancies: 3 Full term: 2 Number of Living Children: 2 Ab induced: 1 Date of last pap smear: 01/20/20 (negative) History of abnormal pap smear: Yes (2011 RO[place]ARIE 1) Date of Mammogram: 07/19/22 Review of Systems Const All systems reviewed & are unremarkable except as noted in HPI and below Reports as per HPI Eyes Reports no additional complaints ENT Reports no additional complaints Card Reports no additional complaints Resp Reports no additional complaints GI Reports as per HPI and Reports no additional complaints Reports as per HPI Musc Reports no additional complaints Skin/Breast Reports as per HPI Neuro Reports no additional complaints Psych Reports no additional complaints Endo Reports no additional complaints Jose L/Lymph Reports no additional complaints Aller/Immun Reports no additional complaints Physical Exam Vital Signs: Last Vital Signs BP 130/74 04/16/23 08:47 BMI result Body Mass Index 23.0 Const General: cooperative, healthy appearing, no acute distress, well developed and alert Orientation/consciousness: patient oriented x3 HEENT Head: Yes normal to inspection Eyes General: appearance normal, both eyes and all related structures Neck Neck: Yes normal visual inspection Thyroid: Thyroid normal Chest Chest palpation & inspection: normal inspection of the chest and other (no puckering, dimpling, peau de orange, retraction, discharge, masses) Breast/axilla inspection: normal inspection of the breasts Breast/axilla palpation: normal palpation of the breasts Resp Effort & Inspection: normal respiratory effort GI Inspection: Yes normal to inspection Palpation (GI): Soft to palpation Rectal Exam - Female: deferred General: Yes bladder normal to palpation External Female Exam: normal external appearance and normal appearance of the urethra Speculum Exam - Vagina: normal appearance of the vagina, normal palpation, normal vaginal discharge and vagina atrophic Speculum Exam - Cervix: normal appearance of the cervix and normal palpation Bimanual exam- vagina & uterus: normal bimanual exam, normal palpation, uterine size normal, bladder normal to palpation, normal palpation and non-tender Bimanual Exam- Adnexa, other: no masses Skin General skin exam: no rashes or lesions noted Rashes: no rashes Neuro General: patient oriented x3 Cognition (Neuro): normal cognition Extrem General: Yes normal to inspection Psych Attitude: cooperative Thought process: Normal thought process present Results AMB Urinalysis, Automated UA Leukoctes 0 Kenn/uL Last Edit by DEVIKA Neves on 04/16/23 09:48 UA Nitrite Negative Last Edit by Todd Donovan Wilmer on 04/16/23 09:48 UA Urobilinogen 0 mg/dL Last Edit by Todd Donovan Wilmer on 04/16/23 09:48 UA Protein 0 mg/dL Last Edit by Todd Donovan Wilmer on 04/16/23 09:48 UA pH 6 Last Edit by Todd Donovan Wilmer on 04/16/23 09:48 UA Blood 2 Milind/uL Last Edit by Todd Donovan Wilmer on 04/16/23 09:48 UA Specific [place] 1.020 Last Edit by Todd Donovan Wilmer on 04/16/23 09:48 UA Ketone Negative Last Edit by Todd Donovan Wilmer on 04/16/23 09:48 UA Bilirubin 0 mg/dL Last Edit by Todd Donovan Wilmer on 04/16/23 09:48 UA Glucose 0 mg/dL Last Edit by Todd Donovan [facility] on 04/16/23 09:48 Results Reviewed Results Reviewed: Laboratory Last Values Urine pH (Auto) 6 04/16/23 09:43 Specific [place] (Auto) 1.020 04/16/23 09:43 Urine Protein (Auto) 0 mg/dL 04/16/23 09:43 Glucose (UA)(Auto) 0 mg/dL 04/16/23 09:43 Urine Ketones (Auto) Negative 04/16/23 09:43 Urine Blood (Auto) 2 Milind/uL 04/16/23 09:43 Urine Nitrite (Auto) Negative 04/16/23 09:43 Urine Bilirubin (Auto) 0 mg/dL 04/16/23 09:43 Urine Urobilinogen (Auto) 0 mg/dL 04/16/23 09:43 Leukocyte Esterase (Auto) 0 Kenn/uL 04/16/23 09:43 Assessment & Plan Assessment & Plan (1) Encounter for well woman exam with routine gynecological exam: Code(s): Z01.419 - Encounter for gynecological examination (general) (routine) without abnormal findings (2) Pain, pelvic, female: Code(s): R10.2 - Pelvic and perineal pain Plan Discussed: Current recommendations for pap smears per ASCCP guidelines. Breast awareness, periodic self breast exams and yearly mammogram. Maintain a healthy lifestyle, well balanced diet including Calcium 1,200 mg and Vitamin D 600 IU daily, and routine exercise. Workup for pelvic pain: Pelvic ultrasound, cervical cultures, urine dip. Return to the office for results in person. Contact the office with any postmenopausal bleeding. Encouraged to keep her appointment and report her concerns on April 29 with her GI provider. Encouraged continue efforts and tobacco cessation. All of her questions and concerns were addressed to the best of my ability. She is agreeable to the plan of care. RTO in 1 year for annual dumper mold cleaner exam. This note is constructed using voice recognition software. While every effort has been made to ensure accuracy, travel guide errors may have been included. Orders: Orders Bacterial Vaginosis Panel Today R10.2 - Pelvic and perineal pain US pelvic and transvaginal Today R10.2 - Pelvic and perineal pain AMB Urinalysis Automated Today R10.2 - Pelvic and perineal pain CT NG by PCR Today R10.2 - Pelvic and perineal pain Urine Culture Today R10.2 - Pelvic and perineal pain Coding Level of Care Code Est Pt Prev Care 40-64y(44623) Diagnoses Encounter for well woman exam with routine gynecological exam Z01.419 Pain, pelvic, female R10.2
[2023-04-16 08:47] VITALS: BP 130/74; BMI 23.0
== END 2023-04-16 09:13 | disposition home or self-care (01) ==
LOC: HO.HWS 08:44
PROVIDERS: PCP Internal Medicine; Visit Provider Advanced Practice Midwife
DX: Z01.419 Encounter for gynecological examination (general) (routine) without abnormal findings (principal); R10.2 Pelvic and perineal pain
CPT/HCPCS: 99396

== ENCOUNTER 2023-04-16 08:44 | Outpatient (REF) | payer MEDICARE, MEDICAID, SELFPAY ==
[2023-04-16 15:35] LABS: CT PCR NOT DETECTED (Not Detect.); NG PCR NOT DETECTED (Not Detect.)
[2023-04-17 11:48] LABS: BV Int Neg Control Negative (Negative); BV Int Pos Control Positive (Positive)
== END 2023-04-16 08:45 | disposition home or self-care (01) ==
LOC: HO.LNP 08:44
PROVIDERS: PCP Internal Medicine; Visit Provider Advanced Practice Midwife
DX: Z01.419 Encounter for gynecological examination (general) (routine) without abnormal findings (principal); R10.2 Pelvic and perineal pain; K62.5 Hemorrhage of anus and rectum
CPT/HCPCS: 0353U; 81003; 87086; 87480; 87510; 87660

== ENCOUNTER 2023-04-28 09:34 | Emergency (ER) | payer MEDICARE, MEDICAID, SELFPAY ==
--- NOTE | ~2023-04-28 | XR_ITS ---
EXAMINATION: XR CHEST CLINICAL INFORMATION: Shortness of breath COMPARISON: CT chest 04/23/2022 Chest radiograph 12/11/2021 TECHNIQUE: 2 views of the chest were obtained. FINDINGS: Lungs are mildly hyperinflated consistent with COPD as was seen on the prior CT chest. No infiltrates, effusions or lung masses are seen. The heart and pulmonary vessels appear normal. No evidence of CHF. XR/XR chest 2V IMPRESSION: No acute intrathoracic disease. COPD.
[2023-04-28 09:39] VITALS: BP 107/86; PULSE 88; RESP 19; TEMP 36.6; O2SAT 96; BMI 23.4
[2023-04-28 10:22] LABS: COVID-19 Test Negative (Negative); IDNOW Serial# 08D9AD1C; IDNOW Serial# 58CA691E; Influenza A Negative (Negative); Influenza B2 Negative (Negative)
--- NOTE | 2023-04-28 12:02 | PC.NURSE ---
pt from home, respirations even and unlabored, reporting being diagnosed with bronchitis and is now reporting episodes of cough with yellow phlegm, and one episode of diarrhea. pt denies chest pain, nausea and vomiting.
--- NOTE | 2023-04-28 12:32 | ED_ITS ---
HPI - General Adult General Chief complaint: Upper Respiratory Symptoms Stated complaint: Vomiting Diarrhea Not Feeling Well Time Seen by Provider: 04/28/23 11:49 Source: patient Mode of arrival: ambulatory Limitations: no limitations History of Present Illness HPI narrative: Patient is a 62-year-old female with history of COPD presenting to the emergency department with complaint of productive cough and shortness of breath since the weekend. Denies fevers. Denies chest pain or palpitations. Denies dizziness or lightheadedness. Reports this morning symptoms seemed worse than over the past few days. States that she is also currently completing treatment with metronidazole for BV. Reports vomiting and diarrhea previously, denies any in past few days. MD complaint: cough, shortness of breath Onset (ago): day(s) Associated symptoms: cough Treatments prior to arrival: none Related Data Home Medications Medication Instructions Recorded Confirmed silver sulfadiazine 1 % topical appl topical BID 07/16/22 04/07/23 cream solifenacin 10 mg tablet 10 mg PO DAILY 04/07/23 04/07/23 Previous Rx's Medication Instructions Recorded ibuprofen 600 mg tablet 600 mg PO Q8H PRN pain 30 days #90 09/27/21 tabs ondansetron 4 mg disintegrating 4 mg PO Q8H PRN nausea and 12/18/21 tablet vomiting #20 tabs ferrous sulfate 325 mg (65 mg 325 mg PO DAILY 30 days #30 tabs 02/04/22 iron) tablet (Feosol) metoclopramide HCl 5 mg tablet 5 mg PO .TIDAC 30 days #90 tabs 06/17/22 (Reglan) cyclobenzaprine 5 mg tablet 5 mg PO TID PRN muscle spasm 30 06/20/22 days #90 tabs sucralfate 1 gram tablet (Carafate) 4 g (4 x 1 gram) PO QNOON #120 tabs 10/09/22 tiotropium bromide 18 mcg capsule 1 cap inhalation DAILY copd 30 10/13/22 with inhalation device (Spiriva days #30 inhalations with HandiHaler) mirtazapine 30 mg tablet 30 mg PO BEDTIME 90 days #90 tabs 11/11/22 hydroxyzine HCl 50 mg tablet 50 mg PO BEDTIME #90 tabs 12/19/22 metoprolol succinate 50 mg 50 mg PO DAILY #90 tabs 09/15/23 tablet,extended release 24 hr escitalopram oxalate 20 mg tablet 20 mg PO DAILY #90 tabs 01/28/23 amoxicillin 500 mg capsule 2,000 mg (4 x 500 mg) PO ONCE #4 02/03/23 caps cholecalciferol (vitamin D3) 50 50 mcg PO DAILY 90 days #90 caps 02/05/23 mcg (2,000 unit) capsule alosetron 0.5 mg tablet 1 mg (2 x 0.5 mg) PO DAILY #60 tabs 02/23/23 pantoprazole 40 mg tablet,delayed 40 mg PO DAILY 90 days #90 tabs 03/06/23 release mupirocin 2 % topical ointment 1 appl topical BID #15 grams 03/12/23 albuterol sulfate 90 mcg/actuation 1 puff PO Q6H PRN shortness of 03/20/23 aerosol inhaler (Ventolin HFA) breath or wheezing 30 days #8.5 grams lorazepam 1 mg tablet 1 mg PO BID PRN anxiety 28 days 03/20/23 #56 tabs losartan 25 mg tablet 25 mg PO DAILY 30 days #30 tabs 04/13/23 oxycodone 5 mg tablet 5 mg PO .1-2 times daily PRN pain 04/21/23 10 days #20 tabs metronidazole 500 mg tablet 500 mg PO BID 7 days #14 tabs 04/22/23 simvastatin 40 mg tablet 40 mg PO BEDTIME #90 tabs 04/24/23 azithromycin 250 mg tablet See Rx Instructions PO .COMPLEX #6 04/28/23 tabs benzonatate 100 mg capsule 100 mg PO TID PRN cough #14 caps 04/28/23 Allergies Allergy/AdvReac Type Severity Reaction Status Date / Time No Known Allergies Allergy Unknown unknown Verified 04/28/23 09:39 [NO KNOWN ALLERGIES] Review of Systems Review of Systems: As per HPI. Yes all other systems are reviewed and are negative Constitutional: Constitutional: Reports as per HPI [facility] Past Medical History Medical History (Updated 04/28/23 @ 12:43 by Alejandra Washington NP) Rectal prolapse Bronchitis Nicotine dependence, cigarettes, uncomplicated Nonrheumatic mitral (valve) insufficiency Pulmonary nodule History of hepatitis C Osteopenia (~2011) COPD (chronic obstructive pulmonary disease) IV drug user Endocarditis of mitral valve (~11/2017) Mitral valve prolapse Mitral regurgitation Early satiety Paresthesia of left leg Allergic rhinitis Facet arthritis of lumbar region Cervical spondylosis Vitamin D deficiency Pure hypercholesterolemia Benign essential hypertension Depression GERD (gastroesophageal reflux disease) Anxiety Surgical History History of liver biopsy (~2009) History of partial colectomy (~2014) History of hysteroscopy (~2010) History of colonoscopy (~2018) Family History Family History Father Internal bleeding Mother Medical history unknown Social History Social History Housing: House Housing Other:: lives alone with her cat Malena Alcohol intake: current Alcohol intake frequency: a few times a month Patient Tobacco Use Status: Current everyday Tobacco user Tobacco use type: Cigarette Cigarette Packs Per Day: 0.5 Cigarettes Per Day: 10 Years Smoked: 44 years (onset 15, 1/2-3/4ppd x 44yrs, 28pyh) Smoked in Last 30 Days: Yes e-Cigarette/Vaping Use: Never Used Second Hand Smoke Exposure: Yes Use of substances other than those prescribed or required for medical reasons: Yes Substance Use Type: Marijuana Advance Directives: Yes Advance Directives on File: Yes Advance Directives Date on File: 12/18/21 service: No Current occupational status: unemployed Sexual orientation: Straight/Heterosexual Gender identity: Female Cognitive needs: No Hearing needs: No Vision needs: Yes Physical Exam ED Vital Signs: Vital Signs - 24 hr 04/28/23 09:39 Temperature 98 F Pulse Rate 88 Respiratory Rate 19 Blood Pressure 107/86 Pulse Oximetry 96 Oxygen Delivery Method Room Air BMI result Body Mass Index 23.4 Vital signs have been reviewed and appear to be correct. Blood pressure normal. Heart rate normal. Respiratory rate normal. Temperature normal. Oxygen satu ration normal. Const General: cooperative and no acute distress Orientation/consciousness: oriented to person, oriented to place, oriented to time and patient oriented x3 Limitations: no limitations HENMT Head: Yes normocephalic and Yes atraumatic Ears: external ears normal General nose exam: Normal external nose present Face and sinus: Yes face symmetric Mouth: oropharynx normal and moist mucous membranes Throat: Yes uvula midline Eyes Pupils: Equal, round and reactive pupils present Neck Neck: Yes normal visual inspection and Yes supple Resp Effort & Inspection: normal respiratory effort and able to speak in complete sentences Auscultation: diminished lung sounds diffuse Cardio Rate: regular rate Rhythm: regular rhythm Heart sounds: S1 normal heart sound present and S2 normal heart sound present GI Palpation (GI): Soft to palpation and nontender Auscultation: normoactive bowel sounds General: Yes no CVA tenderness Back/Spine/Pelvis Back: no CVA tenderness Skin General skin exam: elasticity normal and turgor normal Neuro General: oriented to person, oriented to place, oriented to time, patient oriented x3, moves all extremities, no focal motor deficits and CN's II-XI intact bilaterally Cranial nerves: Yes Equal, round and reactive pupils present Cognition (Neuro): normal cognition Extrem General: Yes full ROM, Yes no pedal edema and Yes no calf tenderness Psych Mental Status: mental status grossly normal Affect: normal affect Thought process: Normal thought process present Medical Decision Making Medical Decision Making [facility] Narrative: Patient is a 62-year-old female with history of COPD presenting to the emergency department with complaint of productive cough and shortness of breath since the weekend. On exam patient is awake, A+Ox3, VS WNL, afebrile, normal neurological exam without focal deficits, physical exam findings as above. Given reported symptoms and physical exam findings, initial differential includes viral illness, COVID, flu, bronchitis, pneumonia, COPD exacerbation. Swabs for flu and COVID negative. X-ray notable for no evidence of pneumonia. My interpretation is in agreement with the radiologist's interpretation. Will treat patient for bronchitis/COPD exacerbation with azithromycin and benzonatate. Differential Diagnosis Differential Diagnoses: The differential diagnosis associated with the presentation includes As per [facility]. Lab Data [facility] Lab Attestation statement: I reviewed the patient's lab results. As per [facility]. Labs: Lab Results 04/28/23 Range/Units 09:46 COVID-19 ([facility]ARZANA) Negative (Negative) COVID-19 Clin Com See Note Influenza Type A (LETI) Negative (Negative) Influenza Type B (LETI) Negative (Negative) Influenza A & B Note See Note Independent Interpretation I performed an independent interpretation of an: Plain X-Ray Interpretation: COPD, no evidence of pneumonia Radiology Impression Discussion of test interpretation with radiology: I have reviewed the radiologist's reading. Radiologist Impression: XR/XR chest 2V IMPRESSION: No acute intrathoracic disease. COPD. External Record Review External record reviewed: Inpatient record, Office record and Outpatient record Prescription Management I considered prescription management with: Antibiotic and Other Discharge Plan Discharge Clinical Impression: Bronchitis, COPD with acute exacerbation Patient Disposition: Home, Self-Care Instructions: Azithromycin (By mouth), Acute Bronchitis (ED), COPD (Chronic Obstructive Pulmonary Disease) (DC) Additional Instructions: You were evaluated in the emergency department today for cough and shortness of breath. Your symptoms are likely related to a COPD exacerbation due to a viral illness. You are being treated with a course of antibiotics, please complete the full course as prescribed. You are also being prescribed benzonatate for cough which you can take every 8 hours as needed. Please follow-up with your primary care provider this week. Return to the emergency department if you develop worsening shortness of breath, fever 100.4? F or greater, chest pain, palpitations, dizziness or lightheadedness, or any other concerning symptoms. Prescriptions: New azithromycin 250 mg tablet See Rx Instructions .ROUTE .COMPLEX Qty: 6 0RF Rx Instructions: For 250 mg dose pack: take 500 mg today (day 1), then 250 mg for 4 days (days 2-5) benzonatate 100 mg capsule 100 mg PO TID PRN (Reason: cough) Qty: 14 0RF No Action ibuprofen 600 mg tablet 600 mg PO Q8H PRN (Reason: pain) 30 Days Qty: 90 1RF Rx Instructions: take with food cyclobenzaprine 5 mg tablet 5 mg PO TID PRN (Reason: muscle spasm) 30 Days Qty: 90 1RF metoprolol succinate 50 mg tablet extended release 24 hr 50 mg PO DAILY Qty: 90 2RF hydroxyzine HCl 50 mg tablet 50 mg PO BEDTIME Qty: 90 1RF escitalopram oxalate 20 mg tablet 20 mg PO DAILY Qty: 90 1RF amoxicillin 500 mg capsule 2,000 mg PO ONCE Qty: 4 1RF Rx Instructions: Take 4 capsules 2 hours before procedure cholecalciferol (vitamin D3) 50 mcg (2,000 unit) capsule 50 mcg PO DAILY 90 Days Qty: 90 3RF Rx Instructions: 1 capsule Orally Once a day alosetron 0.5 mg tablet 1 mg PO DAILY Qty: 60 3RF pantoprazole 40 mg tablet,delayed release (DR/EC) 40 mg PO DAILY 90 Days Qty: 90 1RF lorazepam 1 mg tablet 1 mg PO BID PRN (Reason: anxiety) 28 Days Qty: 56 0RF albuterol sulfate [Ventolin HFA] 90 mcg/actuation HFA aerosol inhaler 1 puff PO Q6H PRN (Reason: shortness of breath or wheezing) 30 Days Qty: 8.5 3RF losartan 25 mg tablet 25 mg PO DAILY 30 Days Qty: 30 3RF oxycodone 5 mg tablet 5 mg PO .1-2 times daily PRN (Reason: pain) 10 Days Qty: 20 0RF metronidazole 500 mg tablet 500 mg PO BID 7 Days Qty: 14 0RF Rx Instructions: Take with food, Avoid alcohol and vinegar products simvastatin 40 mg tablet 40 mg PO BEDTIME Qty: 90 1RF ondansetron 4 mg tablet,disintegrating 4 mg PO Q8H PRN (Reason: nausea and vomiting) Qty: 20 0RF mupirocin 2 % ointment 1 appl topical BID Qty: 15 0RF ferrous sulfate [Feosol] 325 mg (65 mg iron) tablet 325 mg PO DAILY 30 Days Qty: 30 5RF mirtazapine 30 mg tablet 30 mg PO BEDTIME 90 Days Qty: 90 1RF silver sulfadiazine 1 % cream topical BID Spiriva with HandiHaler 18 mcg capsule, w/inhalation device 1 cap inhalation DAILY 30 Days Qty: 30 5RF Rx Instructions: puncture 1 cap using device; one dose = 2 inhalations metoclopramide HCl [Reglan] 5 mg tablet 5 mg PO .TIDAC 30 Days Qty: 90 6RF solifenacin 10 mg tablet 10 mg PO DAILY sucralfate [Carafate] 1 gram tablet 4 g PO QNOON Qty: 120 3RF
[2023-04-28 13:07] VITALS: BP 116/92; PULSE 68; RESP 18; TEMP 36.7; O2SAT 99
== END 2023-04-28 13:09 | disposition home or self-care (01) ==
PROVIDERS: Emergency Provider Emergency Medicine Emergency Medical Services; PCP Internal Medicine
DX: J44.1 Chronic obstructive pulmonary disease with (acute) exacerbation (principal); J20.9 Acute bronchitis, unspecified; Z11.52 Encounter for screening for COVID-19; F17.210 Nicotine dependence, cigarettes, uncomplicated
CPT/HCPCS: 71046; 87502; 87635; 99283; 99284

== ENCOUNTER 2023-04-29 13:16 | Outpatient (AMB) | payer MEDICARE, MEDICAID, SELFPAY ==
--- NOTE | 2023-04-29 13:19 | A.OFFVIS_ITS ---
Intake Vital Signs 04/29/23 13:30 Height 5 ft 2 in Weight 125 lb BMI 22.9 BP 121/85 Blood Pressure Location Lt brachial Position Sitting Pulse 63 Intake Visit Reasons: Follow up per patient request Intake Note: Patient presents to in office visit today in follow up of diarrhea. CC: Patient is crying today because she states she is tired of not feeling well. She c/o diarrhea, coughing, and nausea. She went to the ER yesterday and was given abx. She is also taking abx for bacterial vaginosis. She states her abdomen feels like a balloon. Patient states she was told that her rectal prolapse now has ulcers on it. Sexual Assault Response Coordinator Required: No Allergies No Known Allergies [NO KNOWN ALLERGIES] Allergy (Unknown, Verified 04/29/23 13:24) unknown HPI Follow up per patient request HPI Details Assessment & Plan (1) Irritable bowel syndrome with diarrh ea: ?Code(s): K58.0 - Irritable bowel syndrome with diarrhea ?Plan: She is taking the Lotronex 1mg and this has reduced her fecal incontinence. Her initial BM in the am is formed, but after that she has a whoosh of loose stools. This will happen later in the am and is preventing her from getting through her day. She presented to the ER for rectal bleeding, they rx'ed anusol supps (not covered) and colace (not appropriate). We struggle to regulate her stools in regards to her rectal prolapse, but she does not have CIC. She continues to take carafate 2g at noon. I think we will try increasing the carafate, and I will rx proctosol cream which should be covered. If not, we will consider mesalamine supps. I will give her up to 4g a day. She may self titrate, backing off if she gets constipated and has to strain. She continues her mirtazepine and this is helping her sleep and mood quite a bit. She still has residual sadness because she misses her best friend who . This will take time. She also continues her reglan 5mg tid for her gastroparesis which has resolved her N/V and improved her nutrition. ROV 3 weeks. (2) Gastroparesis: ?Comment: Gastric Emptying Study = Abnormal - 13% retention of food by 4 hours. - 10/30/2020) ?Code(s): K31.84 - Gastroparesis (3) GERD (gastroesophageal reflux diseas e): ?Code(s): K21.9 - Gastro-esophageal reflux disease without esophagitis ?Qualifiers: ?Esophagitis presence:?without esophagitis? Qualified Code(s):?K21.9 - Gastro-esophageal reflux disease without esophagitis ? ? ? Medications: New hydrocortisone 2.5 % (Proctosol HC) ? ? BE SURE TO INCLU DE RECTAL APPICATO R!! 1 appl? CO TID 30 grams 6RF hemorrho ids K64.9 - Unspecifie d hemorrhoids ? Changed From sucralfate (Carafa te) 2 grams (2 x 1 gra m) PO QNOON 60 tab s 3RF K62.9 - Disease of anus and rectum, unspecified, R15.9 - Full incontinen ce of feces ? To sucralfate (Carafa te) 4 grams (4 x 1 gra m) PO QNOON 120 ta bs 3RF K62.9 - Disease of anus and rectum, unspecified, R15.9 - Full incontinen ce of feces ? Discontinued hydrocortisone joan ace (Anusol-HC) ? ? Discontinued [place] son:? Doctor's Ord er 25 mg? CO BID 7 da ys 12 ea 0RF ? ? docusate sodium (C olace) ?? Disconti nued Reason:? Doct or's Order 100 mg? PO BID 7 d ays 14 caps 0RF ? ? CT ABDOMEN AND PELVIS 03/09/23 FINDINGS: LUNG BASES: The visualized lung bases are unremarkable. LIVER, GALLBLADDER, AND BILIARY TREE: The liver is normal in size, shape, and attenuation. No focal hepatic lesion or biliary ductal dilatation is present. The gallbladder is unremarkable with no evidence of radiopaque gallstones, gallbladder wall thickening, or obvious pericholecystic inflammatory changes. PANCREAS: Unremarkable. SPLEEN: Unremarkable. ADRENAL GLANDS: Unremarkable. KIDNEYS AND URETERS: The kidneys are normal in size, shape, and attenuation. No hydronephrosis, hydroureter, or calculi seen. No perinephric stranding. There is a 5 mm cortical cyst upper pole left kidney BLADDER: Unremarkable. GASTROINTESTINAL TRACT: There is moderate stool seen throughout the colon without significant distention. The small bowel loops are normal caliber. Appendix is normal caliber. There is no free air or free fluid. ABDOMINAL WALL: No significant hernia is appreciated. LYMPH NODES: Normal. VASCULAR: Unremarkable. PELVIC VISCERA: Unremarkable. OSSEOUS STRUCTURES: There is a old L5 compression fracture. CT/CT abdomen pelvis w IV con IMPRESSION: Moderate constipation. Otherwise no acute intra-abdominal process seen. REVIEW OF ER VISIT 03/09/2023 Discharge Clinical Impression: Epistaxis, Abdominal pain, Nausea & vomiting, Constipation Patient Disposition: Home, Self-Care Instructions: Constipation (ED), Nosebleed (ED), Acute Nausea and Vomiting (ED), Abdominal Pain (ED) Additional Instructions: Take your medications as prescribed. If you were prescribed antibiotics today, it is important that you take your medication to their entirety, do not skip any doses, do not finish them early. Follow-up with your primary care provider this week. Follow up with ears nose and throat doctor call today to schedule an appointment. The nasal packing should be removed in 3 days here or with ENT Return to the emergency department with new or worsening symptoms. Such as fevers, chills, chest pain, shortness of breath, nausea, vomiting, dizziness, headache, vision changes, lethargy In case of emergency call 911 CT/CT abdomen pelvis w IV con IMPRESSION: Moderate constipation. Otherwise no acute intra-abdominal process seen. Fleischner guidelines were followed. Prescriptions: New amoxicillin-pot clavulanate 875-125 mg tablet 1 tab PO BID 7 Days Qty: 14 0RF docusate sodium [Colace] 100 mg capsule 100 mg PO BID Qty: 20 0RF polyethylene glycol 3350 [Miralax] 17 gram/dose powder 17 g PO BID Qty: 238 0RF sennosides [senna] 8.6 mg tablet 8.6 mg PO BEDTIME Qty: 14 0RF TODAY'S VISIT She is tearful today which, sadly, is her usual presentation. Apparently, she saw her OBGYN after routine examination it was discovered that she had bacterial vaginosis for which she was treated with Flagyl. She feels that this gave her diarrhea. She then presented to the ER for cough and was put on a Zithromax regimen. She also presented to the ER for a nosebleed in same time complained of abdominal pain and had unremarkable CT scan. OF NOTE, THIS PATIENT HAS HAD [address] SCANS IN A YEAR AND A HALF! Also, they gave her a laxative after the CT - which further precipitated her diarrhea. She really feels that all the antibiotics have caused her diarrhea. She also has a lot of lower abdominal bloating. This is kind of to be expected along with cramping given the diarrheal symptoms. It is very important, since she was also diagnosed with a vaginal yeast infection (however the canopy inspector did not send any treatment for this) that she get a probiotic supplement on board to combat the damage the antibiotics are doing to her gut joann. She will buy this [id number] since her daughter works at [employer]. She continues on her Lotronex twice a day and I am also going to give her some Imodium for breakthrough diarrhea until things begin to resolve. She is taking 3 of the Carafate a day and I tell her that it is okay to go up to 4 to try to get things better. I also set a 3 day course of Diflucan to help with the yeast infection. She really feels fatigued and unwell and likely she is run down especially with the diarrhea. She also does not have much of an appetite despite continuing on her Reglan. Her current GI regimen consists of carafate 4 g x 1, pantoprazole 40 mg in the morning, Reglan 5 mg 3 times a day, and Lotronex 1 mg twice a day. ROV 3 weeks. [facility] Medical History Rectal prolapse Bronchitis Nicotine dependence, cigarettes, uncomplicated Nonrheumatic mitral (valve) insufficiency Pulmonary nodule History of hepatitis C Osteopenia (~2011) COPD (chronic obstructive pulmonary disease) IV drug user Endocarditis of mitral valve (~11/2017) Mitral valve prolapse Mitral regurgitation Early satiety Paresthesia of left leg Allergic rhinitis Facet arthritis of lumbar region Cervical spondylosis Vitamin D deficiency Pure hypercholesterolemia Benign essential hypertension Depression GERD (gastroesophageal reflux disease) Anxiety Surgical History History of liver biopsy (~2009) History of partial colectomy (~2014) History of hysteroscopy (~2010) History of colonoscopy (~2018) Family History Father Internal bleeding Mother Medical history unknown Social History Housing: House Housing Other:: lives alone with her cat Malena Alcohol intake: current Alcohol intake frequency: a few times a month Patient Tobacco Use Status: Current everyday Tobacco user Tobacco use type: Cigarette Cigarette Packs Per Day: 0.5 Cigarettes Per Day: 10 Years Smoked: 45 years (onset 15, 1/2-3/4ppd x 44yrs, 28pyh) e-Cigarette/Vaping Use: Never Used Second Hand Smoke Exposure: Yes Substance Use Type: Marijuana Advance Directives Date on File: 12/18/21 service: No Current occupational status: unemployed Sexual orientation: Straight/Heterosexual Gender identity: Female Cognitive needs: No Hearing needs: No Vision needs: Yes Female Reproductive History Menstrual Age of Menarche: 14 Review of Systems Const Denies fatigue, Denies fever(s), Denies night sweats, Denies poor appetite and Denies weight loss Eyes Details: glasses Reports requires corrective lenses ENT Reports Normal hearing present, Denies dental pain, Denies dysphagia, Denies hearing loss, Denies mouth pain, Denies odynophagia, Denies throat swelling, Denies tongue swelling and Reports other (Dentition adequate) Card Reports no additional complaints Resp Reports no additional complaints GI Denies abdominal pain, Denies melena, Reports bloating, Denies hematochezia, Denies constipation, Reports GI cramping, Denies dysphagia, Denies excessive flatus, Denies early satiety, Reports heartburn, Reports fecal incontinence, Reports diarrhea, Denies nausea, Denies odynophagia, Denies vomiting and Denies hematemesis Skin/Breast Denies pruritus, Denies lesions, Denies rash and Denies jaundice Neuro Reports Normal hearing present and Denies Abnormal speech present Psych Reports anxiety and Reports depression Endo Denies fatigue Aller/Immun Denies throat swelling and Denies tongue swelling Physical Exam Vital Signs: Last Vital Signs Pulse 63 01/24/24 13:30 BP 121/85 04/29/23 13:30 BMI result Body Mass Index 22.9 Const General: cooperative, no acute distress, well developed and well groomed Nutritional Appearance: average body habitus and well nourished Orientation/consciousness: oriented to person, oriented to place and oriented to time Limitations: No language barrier HEENT Head: Yes normocephalic and Yes atraumatic Eyes General: appearance normal, both eyes and all related structures Pupils: Equal, round and reactive pupils present Neck Neck: Yes normal visual inspection and Yes no lymphadenopathy Thyroid: Thyroid normal Resp Effort & Inspection: normal respiratory effort and able to speak in complete sentences Auscultation: clear to auscultation bilaterally Cardio Rate: regular rate Rhythm: regular rhythm Heart sounds: Normal, physiologic split S2 sound present Peripheral pulses: radial pulses present and posterior tibial pulses present GI Inspection: Yes distended and No Abdominal panniculus present Palpation (GI): Soft to palpation, nontender, no guarding, not rigid and No hepatosplenomegaly present Percussion: Yes normal to percussion Auscultation: normal bowel sounds Rectal Exam - Female: deferred Skin General skin exam: no rashes or lesions noted, turgor normal, skin not dry, no jaundice, No spider nevi and no striae Rashes: no rashes Nails: normal Neuro General: oriented to person, oriented to place and oriented to time Cranial nerves: Yes Equal, round and reactive pupils present and Yes Normal hearing present Speech: No Abnormal speech present Extrem General: Yes normal to inspection, No clubbing, No cyanosis and No edema Psych Appearance: grossly normal and well kempt Mental Status: mental status grossly normal Speech and movement: Normal speech and movement present Affect: Labile affect present and Sad affect present Attitude: cooperative Thought process: Circumstantial thought process present and not confabulating Thought content: Normal thought content present Insight: Limited insight present (Psych) Judgement: Limited judgement present (Psych) Assessment & Plan Assessment & Plan (1) Irritable bowel syndrome with diarrhea: Code(s): K58.0 - Irritable bowel syndrome with diarrhea (2) GERD (gastroesophageal reflux disease): Code(s): K21.9 - Gastro-esophageal reflux disease without esophagitis Qualifiers: Esophagitis presence: without esophagitis Qualified Code(s): K21.9 - Gastro-esophageal reflux disease without esophagitis (3) Gastroparesis: Comment: Gastric Emptying Study = Abnormal - 13% retention of food by 4 hours. - 10/30/2020) Code(s): K31.84 - Gastroparesis (4) Acute diarrhea: Comment: acute on chronic r/t abx use Code(s): R19.7 - Diarrhea, unspecified Plan She is tearful today which, sadly, is her usual presentation. Apparently, she saw her OBGYN after routine examination it was discovered that she had bacterial vaginosis for which she was treated with Flagyl. She feels that this gave her diarrhea. She then presented to the ER for cough and was put on a Zithromax regimen. She also presented to the ER for a nosebleed in same time complained of abdominal pain and had unremarkable CT scan. OF NOTE, THIS PATIENT HAS HAD [address] SCANS IN A YEAR AND A HALF! Also, they gave her a laxative after the CT - which further precipitated her diarrhea. She really feels that all the antibiotics have caused her diarrhea. She also has a lot of lower abdominal bloating. This is kind of to be expected along with cramping given the diarrheal symptoms. It is very important, since she was also diagnosed with a vaginal yeast infection (however the canopy inspector did not send any treatment for this) that she get a probiotic supplement on board to combat the damage the antibiotics are doing to her gut joann. She will buy this [id number] since her daughter works at [employer]. She continues on her Lotronex twice a day and I am also going to give her some Imodium for breakthrough diarrhea until things begin to resolve. She is taking 3 of the Carafate a day and I tell her that it is okay to go up to 4 to try to get things better. I also set a 3 day course of Diflucan to help with the yeast infection. She really feels fatigued and unwell and likely she is run down especially with the diarrhea. She also does not have much of an appetite despite continuing on her Reglan. Her current GI regimen consists of care feet 4 g x 1, pantoprazole 40 mg in the morning, Reglan 5 mg 3 times a day, and Lotronex 1 mg twice a day. ROV 3 weeks. Medications: New fluconazole (Diflucan) 100 mg PO DAILY 3 days 3 tabs 0RF loperamide (Anti-Diarrheal (loperamide)) 2 mg PO BID PRN 60 caps 3RF loose stool R19.7 - Diarrhea, unspecified Coding Level of Care Code Est Pt Level 3 (43876) Diagnoses Irritable bowel syndrome with diarrhea K58.0 Gastroesophageal reflux disease without esophagitis K21.9 Esophagitis presence: without esophagitis Gastroparesis K31.84 Acute diarrhea R19.7
[2023-04-29 13:30] VITALS: BP 121/85; PULSE 63; BMI 22.9
== END 2023-04-29 14:21 | disposition home or self-care (01) ==
PROVIDERS: PCP Internal Medicine; Visit Provider Nurse Practitioner
DX: K58.0 Irritable bowel syndrome with diarrhea (principal); K21.9 Gastro-esophageal reflux disease without esophagitis; K31.84 Gastroparesis; R19.7 Diarrhea, unspecified
CPT/HCPCS: 99213

== ENCOUNTER → 2023-04-29 13:16 | Outpatient (BNVA) | payer MEDICARE, MEDICAID, SELFPAY | PROVIDERS: PCP Internal Medicine; Visit Provider Nurse Practitioner | DX: K58.0 Irritable bowel syndrome with diarrhea (principal); K21.9 Gastro-esophageal reflux disease without esophagitis; K31.84 Gastroparesis; R19.7 Diarrhea, unspecified | CPT/HCPCS: 99212 ==

== ENCOUNTER 2023-05-14 11:03 | Outpatient (REF) | payer MEDICARE, MEDICAID, SELFPAY ==
--- NOTE | ~2023-05-14 | US_ITS ---
EXAMINATION: US PELVIS CLINICAL INFORMATION: Pelvic and perineal pain; postmenopausal patient. COMPARISON: Pelvic ultrasound dated 11/27/2010. TECHNIQUE: Ultrasound of the pelvis is performed using both transabdominal and transvaginal transducers along with Doppler. Transvaginal imaging is performed due to inadequate visualization transabdominally. FINDINGS: Uterus: The uterus is anteverted and anteflexed. The uterus measures 4.3 x 2.3 x 3.4 cm. The double wall endometrial thickness is 3 mm. The uterus is smooth in contour and has normal myometrial echogenicity. No visible fibroid. Adnexa: Both ovaries are nonvisualized. There is normal color flow to the adnexa. There is no ovarian torsion. There is no pelvic ascites or fluid collection. US/US pelvic and transvaginal IMPRESSION: The bilateral ovaries are nonvisualized; otherwise, unremarkable examination.
== END 2023-05-14 11:04 | disposition home or self-care (01) ==
LOC: HO.US 11:03
PROVIDERS: PCP Internal Medicine; Visit Provider Advanced Practice Midwife
DX: R10.2 Pelvic and perineal pain (principal)
CPT/HCPCS: 76830; 76856

== ENCOUNTER 2023-05-28 10:49 | Outpatient (AMB) | payer MEDICARE, MEDICAID, SELFPAY ==
--- NOTE | 2023-05-28 11:28 | A.OFFVIS_ITS ---
Intake Vital Signs 05/28/23 11:29 Height 5 ft 2 in BP 120/68 Intake Visit Reasons: US follow up Prosthetic Lab Technician: Prosthetic Lab Technician Present Allergies No Known Allergies [NO KNOWN ALLERGIES] Allergy (Unknown, Verified 05/28/23 11:30) unknown Is last menstrual period known: Yes HPI HPI Comments History of Present Illness Details Patient is here for an ultrasound follow-up, prior examination she revealed some bilateral pelvic pain. She reports feeling better after her treatment of bacterial vaginosis. She is anxious today for results as she was worried something was wrong. [facility] Medical History Rectal prolapse Bronchitis Nicotine dependence, cigarettes, uncomplicated Nonrheumatic mitral (valve) insufficiency Pulmonary nodule History of hepatitis C Osteopenia (~2011) COPD (chronic obstructive pulmonary disease) IV drug user Endocarditis of mitral valve (~11/2017) Mitral valve prolapse Mitral regurgitation Early satiety Paresthesia of left leg Allergic rhinitis Facet arthritis of lumbar region Cervical spondylosis Vitamin D deficiency Pure hypercholesterolemia Benign essential hypertension Depression GERD (gastroesophageal reflux disease) Anxiety Surgical History History of liver biopsy (~2009) History of partial colectomy (~2014) History of hysteroscopy (~2010) History of colonoscopy (~2017) Family History Father Internal bleeding Mother Medical history unknown Social History Housing: House Housing Other:: lives alone with her cat Malena Alcohol intake: current Alcohol intake frequency: a few times a month Patient Tobacco Use Status: Current everyday Tobacco user Tobacco use type: Cigarette Cigarette Packs Per Day: 0.5 Cigarettes Per Day: 10 Years Smoked: 45 years (onset 15, 1/2-3/4ppd x 44yrs, 28pyh) e-Cigarette/Vaping Use: Never Used Second Hand Smoke Exposure: Yes Substance Use Type: Marijuana Advance Directives Date on File: 12/18/21 service: No Current occupational status: unemployed Sexual orientation: Straight/Heterosexual Gender identity: Female Cognitive needs: No Hearing needs: No Vision needs: Yes Female Reproductive History Menstrual Age of Menarche: 14 Review of Systems Const All systems reviewed & are unremarkable except as noted in HPI and below Endo Reports no additional complaints Physical Exam Vital Signs: Last Vital Signs BP 120/68 05/28/23 11:29 Const Other: Tearful General: cooperative, healthy appearing and no acute distress Psych Appearance: well kempt Attitude: cooperative Thought process: Normal thought process present Results Reviewed Results Reviewed: [address] [address] Ultrasound Report Signed Patient: Sarah Medina MR#: [id number] : 1960 Acct:[id number] Age/Sex: 62 / F ADM Date: 05/14/23 Loc: HO.US Attending Dr: Mariama Shields CNM Ordering Physician: Mariama Shields CNM Date of Service: 05/14/23 Procedure(s): US pelvic and transvaginal Accession Number(s): [id number] cc: Sarthak Person MD; Mariama Shields CNM~ EXAMINATION: US PELVIS CLINICAL INFORMATION: Pelvic and perineal pain; postmenopausal patient. COMPARISON: Pelvic ultrasound dated 11/27/2010. TECHNIQUE: Ultrasound of the pelvis is performed using both transabdominal and transvaginal transducers along with Doppler. Transvaginal imaging is performed due to inadequate visualization transabdominally. FINDINGS: Uterus: The uterus is anteverted and anteflexed. The uterus measures 4.3 x 2.3 x 3.4 cm. The double wall endometrial thickness is 3 mm. The uterus is smooth in contour and has normal myometrial echogenicity. No visible fibroid. Adnexa: Both ovaries are nonvisualized. There is normal color flow to the adnexa. There is no ovarian torsion. There is no pelvic ascites or fluid collection. US/US pelvic and transvaginal IMPRESSION: The bilateral ovaries are nonvisualized; otherwise, unremarkable examination. Dictated By: Deniz Mercado MD Signed By: <Electronically signed by Deniz Mercado MD in OV> 05/18/23 1722 DD/ 1125 TD/TT: Director Radio: MENDEZ Assessment & Plan Assessment & Plan (1) Encounter to discuss test results: Code(s): Z71.2 - Person consulting for explanation of examination or test findings Plan Discussed: Ultrasound findings no abnormalities noted, patient reassured. BV infections, symptoms and when to call for follow up care. She is scheduled for her annual. All of her questions and concerns were addressed to the best of my ability. This note is constructed using voice recognition software. While every effort has been made to ensure accuracy, seed buyer errors may have been included. Coding Level of Care Code Est Pt Level 3 (53711) Diagnoses Encounter to discuss test results Z71.2
[2023-05-28 11:29] VITALS: BP 120/68
== END 2023-05-28 12:51 | disposition home or self-care (01) ==
LOC: HO.HWS 10:49
PROVIDERS: PCP Internal Medicine; Visit Provider Advanced Practice Midwife
DX: Z71.2 Person consulting for explanation of examination or test findings (principal)
CPT/HCPCS: 99213

== ENCOUNTER → 2023-05-28 10:49 | Outpatient (BNVA) | payer MEDICARE, MEDICAID, SELFPAY | PROVIDERS: PCP Internal Medicine; Visit Provider Advanced Practice Midwife | DX: Z71.2 Person consulting for explanation of examination or test findings (principal) | CPT/HCPCS: 99212 ==

== ENCOUNTER 2023-06-03 14:20 | Outpatient (AMB) | payer MEDICARE, MEDICAID, SELFPAY ==
[2023-06-03 14:22] VITALS: BP 100/68; PULSE 58; O2SAT 97; BMI 23.2
--- NOTE | 2023-06-03 14:22 | A.OFFPC_ITS ---
Vital Signs 06/03/23 14:22 Height 5 ft 2 in Weight 127 lb 0.6 oz BMI 23.2 BP 100/68 Blood Pressure Location Lt brachial Position Sitting Pulse 58 Pulse Source Pulse Oximeter Pulse Oximetry (%) 97 Oxygen Delivery Method Room Air Intake Visit Reasons: 3 month f/u Intake Note: Patient is here to follow up on 3 months Colorist Required: No Allergies No Known Allergies [NO KNOWN ALLERGIES] Allergy (Unknown, Verified 08/17/24 14:20) unknown Medication List - Last Reconciled 06/03/23 by Sarthak Person MD albuterol sulfate 90 mcg/actuation (Ventolin HFA) 1 puff PO Q6H PRN 30 days alosetron 1 mg (2 x 0.5 mg) PO DAILY amoxicillin 2,000 mg PO ONCE PRN cholecalciferol (vitamin D3) 50 mcg PO DAILY 90 days cyclobenzaprine 5 mg PO TID PRN 30 days escitalopram oxalate 20 mg PO DAILY ferrous sulfate (Feosol) 325 mg PO DAILY 30 days fluconazole (Diflucan) 100 mg PO DAILY 3 days hydroxyzine HCl 50 mg PO BEDTIME ibuprofen 600 mg PO Q8H PRN 30 days loperamide (Anti-Diarrheal (loperamide)) 2 mg PO BID PRN lorazepam 1 mg PO BID PRN 28 days losartan 25 mg PO DAILY 30 days mesalamine 1,000 mg VT BEDTIME metoclopramide HCl (Reglan) 5 mg PO .TIDAC 30 days metoprolol succinate ER 50 mg PO DAILY metronidazole 500 mg PO BID 7 days mirtazapine 30 mg PO BEDTIME 90 days mupirocin 2% 1 appl topical BID ondansetron 4 mg PO Q8H PRN oxycodone 5 mg PO .1-2 times daily PRN 10 days pantoprazole 40 mg PO DAILY 90 days silver sulfadiazine 1% appl topical BID simvastatin 40 mg PO BEDTIME solifenacin 10 mg PO DAILY sucralfate (Carafate) 4 grams (4 x 1 gram) PO QNOON tiotropium bromide (Spiriva with HandiHaler) 1 cap inhalation DAILY 30 days Tobacco use date assessed: 06/03/23 HPI 3 month f/u HPI Details Patient comes in today for her follow up visit States that she feels okay She denies any headaches or dizziness Denies any chest pains, no SOB No nausea/vomiting, no abdominal pain No change in bowel habits noted Needs her Lorazepam Rx refilled States that her chronic pains remain adequately controlled on her current Rx She is now working a regular job again and states that keeping herself busy has helped her avoid drinking or using drugs again She is also continuing to work on cutting back on her smoking although this is a little more difficult for her She was not able to get her follow up labs done before her visit today FOR[facility]LY [facility] Medical History (Updated 08/18/24 @ 05:40 by Sarthak Person MD) Smoker Encounter for hospice care discussion Respiratory failure with hypoxia Enterococcus, vancomycin-resistant Small cell lung cancer Small cell lung cancer Small cell lung cancer (~08/2023) MDD (major depressive disorder), recurrent episode, moderate Abnormal CT scan, chest Mass of right lung Lung mass Bronchitis Rectal prolapse 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 Nicotine dependence, cigarettes, uncomplicated Nonrheumatic mitral (valve) insufficiency Pulmonary nodule History of hepatitis C Osteopenia (~2011) COPD (chronic obstructive pulmonary disease) IV drug user Endocarditis of mitral valve (~11/2017) Mitral valve prolapse Mitral regurgitation Early satiety Paresthesia of left leg Allergic rhinitis Facet arthritis of lumbar region Cervical spondylosis Vitamin D deficiency Pure hypercholesterolemia Benign essential hypertension Depression GERD (gastroesophageal reflux disease) Anxiety Surgical History History of bronchoscopy (~2023) History of liver biopsy (~2009) History of partial colectomy (~2014) History of hysteroscopy (~2010) History of colonoscopy (~2017) Family History Father Internal bleeding Mother Medical history unknown Social History Household Members: None Household Members Other:: DAUGHTER LIVES DOWNSTAIRS IN TWO BEDROOM HOME Housing: House Housing Other:: lives alone with her cat Gizmo Are you a primary care professional to a significant other at home: No Do you presently have visiting nurse or other home services: Yes Alcohol intake: former Comment: chair alarm to bed Patient Tobacco Use Status: Current everyday Tobacco user Tobacco use type: Cigarette Cigarette Packs Per Day: 0.25 Years Smoked: 45 e-Cigarette/Vaping Use: Never Used Second Hand Smoke Exposure: No Substance Use Type: Marijuana Advance Directives Date on File: 09/23/23 service: No Current occupational status: unemployed Sexual orientation: Straight/Heterosexual Gender identity: Female Cognitive needs: No Hearing needs: No Vision needs: Yes Female Reproductive History Menstrual Age of Menarche: 14 Questionnaire PHQ-9 Over the last 2 weeks, how often have you been bothered by any of the following problems? 1. Little interest or pleasure in doing things: several days 2. Feeling down, depressed, or hopeless: more than half the days 3. Trouble falling or staying asleep, or sleeping too much: several days 4. Feeling tired or having little energy: several days 5. Poor appetite or overeating: more than half the days 6. Feeling bad about yourself - or that you are a failure or have let yourself or your family down: more than half the days 7. Trouble concentrating on things, such as reading the newspaper or watching television: not at all 8. Moving or speaking so slowly that other people could have noticed. Or the opposite - being so fidgety or restless that you have been moving around a lot more than usual: several days 9. Thoughts that you would be better off or of hurting yourself in some way: not at all Total score: 10 Depression Screening Interpretation: Positive Depression Screening Follow-up: Existing condition and In treatment Depression Screening Done: Yes 09467 - PHQ-9 Billing: Yes Source: Developed by Drs. Demar Wolf, Yocasta Slater, Mathew Juarez and colleagues, with an educational mendoza from [employer]. Thrive Questionnaire Date Thrive assessed: 06/03/23 I am a: Patient What is your living situation today?: I have a steady place to live Within the past 12 months, did the food you bought not last and you didn't have the money to get more?: Never true Within the past 12 months, did you worry whether your food would run out before you got money to buy more?: Never true Do you have trouble paying for medicines?: No Do you have trouble getting transportation to medical appointments?: No Do you have trouble paying your heating and electricity bill?: No Do you have trouble taking care of your child, family member or friend?: No Do you have trouble with day-to-day activities such as bathing, preparing meals, shopping, managing finances, etc.?: No Are you currently unemployed and looking for a job?: No Are you interested in more education?: No Please select the resources that you would like help with: None Currently or been in a relationship where the following occur: no concerns reported THRIVE Score: 0 AUDIT C Alcohol Use Questionnaire (AUDIT-C) 1. How often do you have a drink containing alcohol?: Never 3. How often do you have six or more drinks on one occasion?: Never Total Score: 0 Score Reviewed/Action Taken: Yes CHRISSIE-7 AMB Questionnaire CHRISSIE-7 Date CHRISSIE - 7 assessed: 06/03/23 Source: Developed by Drs. Demar Wolf, Yocasta Slater, Mathew Juarez and colleagues, with an educational mendoza from [employer]. Review of Systems Const Denies chills, Reports difficulty sleeping (on and off but feels that this has improved lately), Reports fatigue, Denies fever(s) and Denies headache(s) ENT Denies dysphagia, Denies dizziness, Denies otalgia, Denies headache(s), Denies neck pain, Denies odynophagia and Denies sore throat Card Denies chest pain, Denies palpitations and Denies dyspnea Resp Denies chest congestion, Reports cough (on and off; coughs up thick whitish phlegm occasionally), Denies hemoptysis, Denies pain with cough, Denies dyspnea and Denies wheezing GI Denies abdominal pain, Reports hematochezia (recurrent), Denies constipation, Denies dysphagia, Denies heartburn, Reports fecal incontinence (at times), Reports loose stools (at times), Denies nausea, Denies odynophagia and Denies vomiting Denies difficulty voiding, Denies nocturia, Denies dysuria and Denies urinary urgency Musc Reports back pain (over the lumbar spine - chronic), Reports arthralgias and Denies neck pain Skin/Breast Denies rash Neuro Denies dizziness, Denies headache(s) and Reports paresthesias (in the left leg) Psych Reports anxiety and Reports depression (increasing) Endo Reports fatigue and Denies palpitations Aller/Immun Denies wheezing Physical exam (Primary Care) Vital Signs: Last Vital Signs Pulse 58 06/03/23 14:22 BP 100/68 06/03/23 14:22 Pulse Ox 97 06/03/23 14:22 Oxygen Delivery Method Room Air 06/03/23 14:22 BMI result Body Mass Index 23.2 Tobacco/Smoking Status: Tobacco use Status Tobacco use date assessed 06/03/23 06/03/23 14:24 Patient Tobacco Use Status Current everyday Tobacco 06/03/23 14:24 Tobacco use type Cigarette 06/03/23 14:24 e-Cigarette/Vaping Use Never Used 06/03/23 14:24 PHQ-9: PHQ-9 Score PHQ-9: Total score 10 06/03/23 15:48 Depression Screening Interpretation: Positive Depression Screening Follow-up: Existing condition and In treatment Thrive Assessment: Date of Thrive Assessment Date Thrive assessed 06/03/23 06/03/23 14:24 Currently or been in a relationship where the following occur: no concerns reported Const General: no acute distress and alert HENMT Ears: TM's normal bilaterally and EAC's normal Throat: Yes posterior oropharynx normal and Yes tonsils normal (no TP congestion noted) Neck Neck: Yes no lymphadenopathy and Yes supple Thyroid: Thyroid normal Resp Auscultation: clear to auscultation bilaterally, no rales, rhonchi (occasional) and no wheezes Cardio Rate: regular rate Rhythm: regular rhythm Heart sounds: Murmur heart sound present systolic late, mid, III/ and at the apex GI Palpation (GI): Soft to palpation and nontender Auscultation: normal bowel sounds Back/Spine/Pelvis Cervical Spine: Cervical spine tenderness Thoracic/Lumbar Spine: lumbar spinal tenderness Skin Rashes: no rashes Extrem General: Yes no clubbing, cyanosis or edema Coding Level of Care Code Est Pt Level 4 (41509) Diagnoses Pure hypercholesterolemia E78.00 Benign essential hypertension I10 Pulmonary emphysema, unspecified emphysema type J43.9 COPD type: emphysema Emphysema type: unspecified Pulmonary nodule R91.1 Mitral valve prolapse I34.1 Impaired fasting glucose R73.01 Gastroparesis K31.84 Gastroesophageal reflux disease without esophagitis K21.9 Esophagitis presence: without esophagitis Rectal bleeding K62.5 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 Iron deficiency anemia secondary to inadequate dietary iron intake D50.8 Anemia type: iron deficiency Iron deficiency anemia type: inadequate dietary iron intake 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 Cervical spondylosis M47.812 Vitamin D deficiency E55.9 Osteopenia, unspecified location M85.80 Osteopenia location: unspecified Overactive bladder N32.81 Anxiety F41.9 Episode of recurrent major depressive disorder, unspecified depression episode severity F33.9 Active/Remission status: currently active Depression Type: major depressive disorder Major depression episode severity: unspecified Major depression recurrence: recurrent Smoker F17.200
== END 2023-06-03 15:45 | disposition home or self-care (01) ==
PROVIDERS: PCP Internal Medicine; Visit Provider Internal Medicine
DX: E78.00 Pure hypercholesterolemia, unspecified (principal); I10 Essential (primary) hypertension; J43.9 Emphysema, unspecified; R91.1 Solitary pulmonary nodule; I34.1 Nonrheumatic mitral (valve) prolapse; R73.01 Impaired fasting glucose; K31.84 Gastroparesis; K21.9 Gastro-esophageal reflux disease without esophagitis; K62.5 Hemorrhage of anus and rectum; K62.89 Other specified diseases of anus and rectum; D50.8 Other iron deficiency anemias; M47.816 Spondylosis without myelopathy or radiculopathy, lumbar region; M47.812 Spondylosis without myelopathy or radiculopathy, cervical region; E55.9 Vitamin D deficiency, unspecified; M85.80 Other specified disorders of bone density and structure, unspecified site; N32.81 Overactive bladder; F41.9 Anxiety disorder, unspecified; F33.9 Major depressive disorder, recurrent, unspecified; F17.200 Nicotine dependence, unspecified, uncomplicated
CPT/HCPCS: 99499

== ENCOUNTER 2023-06-10 08:55 | Outpatient (REF) | payer MEDICARE, MEDICAID, SELFPAY ==
--- NOTE | ~2023-06-10 | CT_ITS ---
EXAMINATION: CT CHEST SCREENING CLINICAL INFORMATION: Current smoker, 1 pack per day with 50 pack-year history. COMPARISON: CT lung screening study 04/23/2022. TECHNIQUE: Multidetector volumetric CT imaging of the chest is performed without contrast using low dose technique. Additional 2D coronal and sagittal reformatted images and axial 3D maximum intensity projection (MIP) images are generated on the CT workstation. This CT examination was performed using dose optimization techniques as appropriate, variously including the following: *Automated exposure control *Adjustment of mA and/or kV according to patient size (this includes techniques or standardized protocols for targeted exams where dose is matched to indication/reason for exam; i.e. extremities or head) *Use of iterative reconstruction technique DLP: 43 mGy-cm FINDINGS: LUNGS: Mild emphysematous changes are present in the lungs with some mild peribronchial thickening. Again seen is a 9 mm noncalcified left upper lobe nodule unchanged by my measurements (5:107 compare prior 5:89). A tiny 2 mm nodule just below that level is unchanged (5:127 compare prior 5:104). The lungs are otherwise clear. MEDIASTINUM: The mediastinum is normal. CORONARY ARTERY CALCIFICATION: Moderate. PLEURA: There is no pleural effusion. No pleural mass or thickening. AXILLA: No lymphadenopathy. UPPER ABDOMEN: Unremarkable. OSSEOUS STRUCTURES: Unremarkable. CT/CT lung screening IMPRESSION: Unchanged 9 mm left upper lobe nodule. No new finding to suggest malignancy. ASSESSMENT: Lung-RADS category 2: Benign. RECOMMENDATION: Routine annual low-dose CT screening in 12 months.
== END 2023-06-10 08:56 | disposition home or self-care (01) ==
LOC: HO.CT 08:55
PROVIDERS: PCP Internal Medicine; Visit Provider Nurse Practitioner Family
DX: Z12.2 Encounter for screening for malignant neoplasm of respiratory organs (principal); F17.210 Nicotine dependence, cigarettes, uncomplicated
CPT/HCPCS: 71271; 99212

== ENCOUNTER 2023-06-10 12:14 | Outpatient (AMB) | payer MEDICARE, MEDICAID, SELFPAY ==
--- NOTE | 2023-06-10 12:30 | MHC.OFFVIS ---
Intake Vital Signs 06/10/23 12:38 Height 5 ft 2 in Weight 126 lb 8.725 oz BMI 23.1 BP 123/81 Blood Pressure Location Rt brachial Position Sitting Pulse 58 Intake Visit Reasons: 3 week follow up Intake Note: Patient presents to in office visit today in follow up of diarrhea. CC: Patient reports she is doing ok but still coughing. Denies having any GI concern today. Fresh Work Inspector Required: No Allergies No Known Allergies [NO KNOWN ALLERGIES] Allergy (Unknown, Verified 06/10/23 12:47) unknown HPI 3 week follow up HPI Details Assessment & Plan (1) Irritable bowel syndrome with diarrhea: Code(s): K58.0 - Irritable bowel syndrome with diarrhea (2) GERD (gastroesophageal reflux disease): Code(s): K21.9 - Gastro-esophageal reflux disease without esophagitis Qualifiers: Esophagitis presence: without esophagitis Qualified Code(s): K21.9 - Gastro-esophageal reflux disease without esophagitis (3) Gastroparesis: Comment: Gastric Emptying Study = Abnormal - 13% retention of food by 4 hours. - 10/30/2020) Code(s): K31.84 - Gastroparesis (4) Acute diarrhea: Comment: acute on chronic r/t abx use Code(s): R19.7 - Diarrhea, unspecified Plan She is tearful today which, sadly, is her usual presentation. Apparently, she saw her OBGYN after routine examination it was discovered that she had bacterial vaginosis for which she was treated with Flagyl. She feels that this gave her diarrhea. She then presented to the ER for cough and was put on a Zithromax regimen. She also presented to the ER for a nosebleed in same time complained of abdominal pain and had unremarkable CT scan. OF NOTE, THIS PATIENT HAS HAD [address] SCANS IN A YEAR AND A HALF! Also, they gave her a laxative after the CT - which further precipitated her diarrhea. She really feels that all the antibiotics have caused her diarrhea. She also has a lot of lower abdominal bloating. This is kind of to be expected along with cramping given the diarrheal symptoms. It is very important, since she was also diagnosed with a vaginal yeast infection (however the physician relations specialist did not send any treatment for this) that she get a probiotic supplement on board to combat the damage the antibiotics are doing to her gut joann. She will buy this [id number] since her daughter works at [employer]. She continues on her Lotronex twice a day and I am also going to give her some Imodium for breakthrough diarrhea until things begin to resolve. She is taking 3 of the Carafate a day and I tell her that it is okay to go up to 4 to try to get things better. I also set a 3 day course of Diflucan to help with the yeast infection. She really feels fatigued and unwell and likely she is run down especially with the diarrhea. She also does not have much of an appetite despite continuing on her Reglan. Her current GI regimen consists of care feet 4 g x 1, pantoprazole 40 mg in the morning, Reglan 5 mg 3 times a day, and Lotronex 1 mg twice a day. ROV 3 weeks. Medications: New fluconazole (Diflu can) 100 mg PO DAILY 3 days 3 tabs 0RF loperamide (Anti-D iarrheal (loperami de)) 2 mg PO BID PRN 6 0 caps 3RF loose s tool R19.7 - Diarrhea, unspecified TODAYS VISIT She had an ovarian US but my ovaries were too small to see anything. She had her records transferred from Dr. Barth to [facility] and I think a new opinion from a rectal surgeon will be of great benefit to her. The fluconazole helped her over the florinda infection. Her current GI regimen consists of care feet 4 g x 1, pantoprazole 40 mg in the morning, Reglan 5 mg 3 times a day, and Lotronex 1 mg twice a day. ROV 6 mos. [facility] Medical History Rectal prolapse Bronchitis Nicotine dependence, cigarettes, uncomplicated Nonrheumatic mitral (valve) insufficiency Pulmonary nodule History of hepatitis C Osteopenia (~2011) COPD (chronic obstructive pulmonary disease) IV drug user Endocarditis of mitral valve (~11/2017) Mitral valve prolapse Mitral regurgitation Early satiety Paresthesia of left leg Allergic rhinitis Facet arthritis of lumbar region Cervical spondylosis Vitamin D deficiency Pure hypercholesterolemia Benign essential hypertension Depression GERD (gastroesophageal reflux disease) Anxiety Surgical History History of liver biopsy (~2009) History of partial colectomy (~2014) History of hysteroscopy (~2010) History of colonoscopy (~2017) Family History Father Internal bleeding Mother Medical history unknown Social History Housing: House Housing Other:: lives alone with her cat Malena Alcohol intake: current Alcohol intake frequency: a few times a month Patient Tobacco Use Status: Current everyday Tobacco user Tobacco use type: Cigarette Cigarette Packs Per Day: 0.5 Cigarettes Per Day: 10 Years Smoked: 45 years (onset 15, 1/2-3/4ppd x 44yrs, 28pyh) e-Cigarette/Vaping Use: Never Used Second Hand Smoke Exposure: Yes Substance Use Type: Marijuana Advance Directives Date on File: 12/18/21 service: No Current occupational status: unemployed Sexual orientation: Straight/Heterosexual Gender identity: Female Cognitive needs: No Hearing needs: No Vision needs: Yes Female Reproductive History Menstrual Age of Menarche: 14 Review of Systems Const Denies fatigue, Denies fever(s), Denies night sweats, Denies poor appetite and Denies weight loss Eyes Details: glasses Reports requires corrective lenses ENT Reports Normal hearing present, Denies dental pain, Denies dysphagia, Denies hearing loss, Denies mouth pain, Denies odynophagia, Denies throat swelling, Denies tongue swelling and Reports other (Dentition adequate) Card Reports no additional complaints Resp Reports no additional complaints GI Details: Denies abdominal pain, Denies melena, Denies bloating, Denies hematochezia, Denies constipation, Denies GI cramping, Denies dysphagia, Denies excessive flatus, Denies early satiety, Reports heartburn, Reports fecal incontinence, Reports diarrhea, Denies nausea, Denies odynophagia, Denies vomiting and Denies hematemesis Skin/Breast Denies pruritus, Denies lesions, Denies rash and Denies jaundice Neuro Reports Normal hearing present and Denies Abnormal speech present Endo Denies fatigue Aller/Immun Denies throat swelling and Denies tongue swelling Physical Exam Vital Signs: Last Vital Signs Pulse 58 06/10/23 12:38 BP 123/81 06/10/23 12:38 BMI result Body Mass Index 23.1 Const General: cooperative, no acute distress, well developed and well groomed Nutritional Appearance: average body habitus and well nourished Orientation/consciousness: oriented to person, oriented to place and oriented to time Limitations: No language barrier HEENT Head: Yes normocephalic and Yes atraumatic Eyes General: appearance normal, both eyes and all related structures Pupils: Equal, round and reactive pupils present Neck Neck: Yes normal visual inspection and Yes no lymphadenopathy Thyroid: Thyroid normal Resp Effort & Inspection: normal respiratory effort and able to speak in complete sentences Auscultation: clear to auscultation bilaterally Cardio Rate: regular rate Rhythm: regular rhythm Heart sounds: Normal, physiologic split S2 sound present Peripheral pulses: radial pulses present and posterior tibial pulses present GI Inspection: No distended and No Abdominal panniculus present Palpation (GI): Soft to palpation, nontender, no guarding, not rigid and No hepatosplenomegaly present Percussion: Yes normal to percussion Auscultation: normal bowel sounds Rectal Exam - Female: deferred Skin General skin exam: no rashes or lesions noted, turgor normal, skin not dry, no jaundice, No spider nevi and no striae Rashes: no rashes Nails: normal Neuro General: oriented to person, oriented to place and oriented to time Cranial nerves: Yes Equal, round and reactive pupils present and Yes Normal hearing present Speech: No Abnormal speech present Extrem General: Yes normal to inspection, No clubbing, No cyanosis and No edema Psych Appearance: grossly normal and well kempt Mental Status: mental status grossly normal Speech and movement: Normal speech and movement present Affect: normal affect Attitude: cooperative Thought process: Normal thought process present and not confabulating Thought content: Normal thought content present Insight: Limited insight present (Psych) Judgement: Limited judgement present (Psych) Assessment & Plan Assessment & Plan (1) Acute diarrhea: Comment: acute on chronic r/t abx use Code(s): R19.7 - Diarrhea, unspecified (2) GERD (gastroesophageal reflux disease): Code(s): K21.9 - Gastro-esophageal reflux disease without esophagitis Qualifiers: Esophagitis presence: without esophagitis Qualified Code(s): K21.9 - Gastro-esophageal reflux disease without esophagitis (3) Irritable bowel syndrome with diarrhea: Code(s): K58.0 - Irritable bowel syndrome with diarrhea (4) Gastroparesis: Comment: Gastric Emptying Study = Abnormal - 13% retention of food by 4 hours. - 10/30/2020) Code(s): K31.84 - Gastroparesis (5) Anal sphincter incompetence: Code(s): K62.89 - Other specified diseases of anus and rectum Plan She had an ovarian US but my ovaries were too small to see anything. She had her records transferred from Dr. Barth to [facility] and I think a new opinion from a rectal surgeon will be of great benefit to her. The fluconazole helped her over the florinda infection. Her current GI regimen consists of care feet 4 g x 1, pantoprazole 40 mg in the morning, Reglan 5 mg 3 times a day, and Lotronex 1 mg twice a day. However, she will still have incontinence of stools even with solid bowel movements due to her rectal incontinence. ROV 6 mos. Medications: Refilled alosetron 1 mg (2 x 0.5 mg) PO DAILY 60 tabs 6RF K58.0 - Irritable bowel syndrome with diarrhea metoclopramide HCl (Reglan) 5 mg PO .TIDAC 30 days 90 tabs 6RF K31.84 - Gastroparesis, R11.2 - Nausea with vomiting, unspecified sucralfate (Carafate) 4 grams (4 x 1 gram) PO QNOON 120 tabs 3RF K62.9 - Disease of anus and rectum, unspecified, R15.9 - Full incontinence of feces pantoprazole 40 mg PO DAILY 90 days 90 tabs 1RF K29.70 - Gastritis, unspecified, without bleeding Coding Level of Care Code Est Pt Level 3 (14341) Diagnoses Acute diarrhea R19.7 Gastroesophageal reflux disease without esophagitis K21.9 Esophagitis presence: without esophagitis Irritable bowel syndrome with diarrhea K58.0 Gastroparesis K31.84 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
[2023-06-10 12:38] VITALS: BP 123/81; PULSE 58; BMI 23.1
== END 2023-06-10 13:23 | disposition home or self-care (01) ==
PROVIDERS: PCP Internal Medicine; Visit Provider Nurse Practitioner
DX: R19.7 Diarrhea, unspecified (principal); K21.9 Gastro-esophageal reflux disease without esophagitis; K58.0 Irritable bowel syndrome with diarrhea; K31.84 Gastroparesis; K62.89 Other specified diseases of anus and rectum
CPT/HCPCS: 99213

== ENCOUNTER 2023-07-22 08:21 | Inpatient (IN) | payer MEDICARE, MEDICAID, SELFPAY ==
[2023-07-22] VITALS (10 sets, daily range): BP systolic 107–152; BP diastolic 61–85; PULSE 69–92; RESP 12–20; TEMP 36.2–36.9; O2SAT 92–97; BMI 22.9
--- NOTE | 2023-07-22 | ECG_ITS ---
Test Reason : chest pain Blood Pressure : / mmHG Vent. Rate : 098 BPM Atrial Rate : 098 BPM P-R Int : 186 ms QRS Dur : 096 ms QT Int : 384 ms P-R-T Axes : 076 -32 086 degrees QTc Int : 490 ms Normal sinus rhythm Possible Left atrial enlargement Left axis deviation Low voltage QRS Nonspecific ST and T wave abnormality Prolonged QT Abnormal ECG When compared with ECG of 01-JAN-2023 10:13, Premature ventricular complexes are no longer Present Criteria for Lateral infarct are no longer Present Nonspecific T wave abnormality, worse in Lateral leads Referred By: Generic ED Physician Electronically Signed By:CHRISTELLE HESS
--- NOTE | ~2023-07-22 | XR_ITS ---
EXAMINATION: XR CHEST CLINICAL INFORMATION: Chest pain COMPARISON: Chest x-ray on 04/28/2023 TECHNIQUE: 2 views of the chest were obtained. FINDINGS: vascularity. LUNGS: Patchy airspace disease is seen in inferior right upper lobe extending from right suprahilar region. No pneumothorax is seen. BONES: Bony skeleton is intact. XR/XR chest 2V IMPRESSION: Interval development of right suprahilar alveolar infiltrates, suggestive of pneumonia.
[2023-07-22 08:39] LABS: MANUAL DIFF FLAG NO
[2023-07-22 08:46] LABS: Basophils Absolute Auto 0.1 X10*3/uL (0.0-0.2); Eosinophils Absolute Auto 0.2 X10*3/uL (0.0-0.4); Eosinophils Percent Auto 3.5 % (0-4); Hemoglobin 14.2 g/dl (12.0-16.0); Imm Gran Abs Auto 0.02 X10*3/uL (0.00-0.03); Imm Gran Pct Auto 0.3 % (0.0-0.4); Lymphocytes Absolute Auto 2.1 X10*3/uL (1.2-4.9); Lymphocytes Percent Auto 33.1 % (20-40); Mean Corpuscular HGB Conc 34.6 g/dl (31.0-35.0); Mean Corpuscular Hemoglobin 28.9 pg (27.0-33.0); Mean Corpuscular Volume 83.3 fL (80.0-98.0); Monocytes Absolute Auto 0.6 X10*3/uL (0.1-1.2); Monocytes Percent Auto 10.2 % (2-11); Neutrophils Absolute Auto 3.3 x10*3/uL (2.0-8.3); Neutrophils Percent Auto 51.9 % (45-73); Platelet Count 207 X10*3/uL (160-400); Red Blood Count 4.92 X10*6/uL (4.20-5.50); Red Cell Distribution Width 13.8 % (11.0-16.0); White Blood Count 6.3 X10*3/uL (4.8-10.8)
--- NOTE | 2023-07-22 08:46 | ED_ITS ---
HPI - Chest Pain General Chief Complaint: General Medical Stated Complaint: chest pain, diff breathing Time Seen by Provider: 07/22/23 08:37 Source: patient and old records reviewed Mode of arrival: EMS Limitations: no limitations History of Present Illness HPI narrative: 62 yo female with PMH of bronchitis, IVDA, COPD, HTN, HLD, anemia, GERD, IBS, gastroparesis, anxiety, depression, notes she started to feel sick with increasing cough, difficulty breathing, sputum production and chills yesterday with vomiting. She feels weak today and still feels cough and wheezing. She states her nebs are not helping. She denies travel, sick contacts, drug abuse MD complaint: other (URI symptoms) Pertinent past history: asthma Onset (ago): day(s) (yesterday ) Timing of current episode: constant Prior episodes: Yes Onset: during rest and during exertion Pain location: left chest and right chest Pain radiation: none Severity: moderate Quality: tightness Relieving factors: nothing Exacerbating factors: exertion and other (coughing) Context: recent illness Associated symptoms: nausea, vomiting and cough Treatment prior to arrival: other (neb treatments) Related Data Home Medications ?Medication ?Instructions ?Recorded ?Confirmed silver sulfadiazine 1 % topical appl topical BID 07/16/22 06/03/23 cream amoxicillin 500 mg capsule 2,000 mg PO ONCE PRN 04/29/23 06/03/23 mesalamine 1,000 mg rectal 1,000 mg [place] BEDTIME 04/29/23 06/03/23 suppository Previous Rx's ?Medication ?Instructions ?Recorded ibuprofen 600 mg tablet 600 mg PO Q8H PRN pain 30 days #90 09/27/21 tabs ondansetron 4 mg disintegrating 4 mg PO Q8H PRN nausea and 12/18/21 tablet vomiting #20 tabs ferrous sulfate 325 mg (65 mg 325 mg PO DAILY 30 days #30 tabs 02/04/22 iron) tablet (Feosol) cyclobenzaprine 5 mg tablet 5 mg PO TID PRN muscle spasm 30 06/20/22 days #90 tabs tiotropium bromide 18 mcg capsule 1 cap inhalation DAILY copd 30 10/13/22 with inhalation device (Spiriva days #30 inhalations with HandiHaler) mirtazapine 30 mg tablet 30 mg PO BEDTIME 90 days #90 tabs 11/11/22 metoprolol succinate 50 mg 50 mg PO DAILY #90 tabs 12/19/22 tablet,extended release 24 hr cholecalciferol (vitamin D3) 50 50 mcg PO DAILY 90 days #90 caps 02/05/23 mcg (2,000 unit) capsule mupirocin 2 % topical ointment 1 appl topical BID #15 grams 03/12/23 albuterol sulfate 90 mcg/actuation 1 puff PO Q6H PRN shortness of 03/20/23 aerosol inhaler (Ventolin HFA) breath or wheezing 30 days #8.5 grams simvastatin 40 mg tablet 40 mg PO BEDTIME #90 tabs 04/24/23 loperamide 2 mg capsule 2 mg PO BID PRN loose stool #60 04/29/23 (Anti-Diarrheal (loperamide)) caps hydroxyzine HCl 50 mg tablet 50 mg PO BEDTIME #90 tabs 05/21/23 alosetron 0.5 mg tablet 1 mg (2 x 0.5 mg) PO DAILY #60 tabs 06/10/23 metoclopramide HCl 5 mg tablet 5 mg PO .TIDAC 30 days #90 tabs 06/10/23 (Reglan) pantoprazole 40 mg tablet,delayed 40 mg PO DAILY 90 days #90 tabs 06/10/23 release sucralfate 1 gram tablet (Carafate) 4 g (4 x 1 gram) PO QNOON #120 tabs 06/10/23 escitalopram oxalate 20 mg tablet 20 mg PO DAILY #90 tabs 06/11/23 losartan 25 mg tablet 25 mg PO DAILY #90 tabs 06/11/23 solifenacin 10 mg tablet 10 mg PO DAILY #90 tabs 06/11/23 oxycodone 5 mg tablet 5 mg PO .1-2 times daily PRN pain 07/10/23 10 days #20 tabs lorazepam 1 mg tablet 1 mg PO BID PRN anxiety 28 days 07/13/23 #56 tabs Allergies Allergy/AdvReac Type Severity Reaction Status Date / Time No Known Allergies Allergy Unknown unknown Verified 07/22/23 08:35 [NO KNOWN ALLERGIES] Review of Systems 2 Review of Systems: Constitutional : No Fever, pos Chills ENT/Mouth : No Hoarseness, No sore throat, No Rhinorrhea Eyes: No Redness, No Discharge, No Vision Changes Cardiovascular : No Chest Pain, positive SOB, positive Dyspnea on Exertion, No Edema Respiratory : positive Cough, pos Sputum, positive Wheezing, Gastrointestinal : pos Nausea, pos Vomiting, No Diarrhea, No abdominal Pain Genitourinary : No Dysuria, No Hematuria Musculoskeletal : No joint pain, No Myalgias Skin : No rash Neuro : No Weakness, No Numbness, No Headache Psych : No anxiety, depression Heme/Lymph: No Bruising, No Bleeding Endocrine : No Polyuria, No Polydipsia All other systems reviewed and are negative [facility] Past Medical History Attestation statement: The following information was validated with the patient. Source: old records reviewed Medical History Rectal prolapse Bronchitis Nicotine dependence, cigarettes, uncomplicated Nonrheumatic mitral (valve) insufficiency Pulmonary nodule History of hepatitis C Osteopenia (~2011) COPD (chronic obstructive pulmonary disease) IV drug user Endocarditis of mitral valve (~11/2017) Mitral valve prolapse Mitral regurgitation Early satiety Paresthesia of left leg Allergic rhinitis Facet arthritis of lumbar region Cervical spondylosis Vitamin D deficiency Pure hypercholesterolemia Benign essential hypertension Depression GERD (gastroesophageal reflux disease) Anxiety Surgical History History of liver biopsy (~2009) History of partial colectomy (~2014) History of hysteroscopy (~2010) History of colonoscopy (~2017) Family History Family History Father Internal bleeding Mother Medical history unknown Social History Social History Housing: House Housing Other:: lives alone with her cat Malena Alcohol intake: current Alcohol intake frequency: former alcohol drinker Patient Tobacco Use Status: Current everyday Tobacco user Tobacco use type: Cigarette Cigarette Packs Per Day: 0.5 Cigarettes Per Day: 10 Years Smoked: 45 years (onset 15, 1/2-3/4ppd x 44yrs, 28pyh) Smoked in Last 30 Days: Yes e-Cigarette/Vaping Use: Never Used Second Hand Smoke Exposure: Yes Use of substances other than those prescribed or required for medical reasons: No Substance Use Type: Marijuana Advance Directives: Yes Advance Directives on File: Yes Advance Directives Date on File: 12/18/21 Patient : No service: No Current occupational status: unemployed Sexual orientation: Straight/Heterosexual Gender identity: Female Cognitive needs: No Hearing needs: No Vision needs: Yes Physical Exam 2 Vital Signs: Vital Signs: Last Vital Signs Temp 97.6 F 07/22/23 11:07 Pulse 69 07/22/23 11:07 Resp 17 07/22/23 11:07 BP 152/73 H 07/22/23 11:07 Pulse Ox 95 07/22/23 11:07 O2 Del Method Room Air 07/22/23 11:07 BMI result Body Mass Index 22.9 Appearance: Alert. Oriented X3. No acute distress. Thin and frail Eyes: Pupils equal, round and reactive to light. ENT: Pharynx normal. Neck: Normal inspection. Neck supple. CVS: Normal heart rate and rhythm. Pulses normal. Respiratory: No respiratory distress. Breath sounds exp wheezes noted diffusely and some coarse upper breath sounds Abdomen: Soft and nontender. Skin: Skin warm and dry. pale skin color. Normal skin turgor. Extremities: No lower extremity edema. No calf ttp Neuro: Oriented X 3. No motor deficit. No sensory deficit. Course Course Course Narrative: EKG changes noted trop flat will admit for further management Medications Administered Discontinued Medications Generic Name Dose Route Start Last Admin Trade Name Jeffq PRN Reason Stop Dose Admin Albuterol Sulfate 2 puff 07/22/23 09:40 07/22/23 09:43 Albuterol Sulfate 90 Mcg 8 Gm Inhaler INHALE 07/22/23 09:41 2 puff ONCE ONE Administration Magnesium Sulfate 2 gm in 50 mls @ 25 mls/hr 07/22/23 08:37 07/22/23 09:52 Magnesium Sulfate/H2o IV 07/22/23 10:36 25 mls/hr ONCE ONE Administration Sodium Chloride 1,000 mls @ 999 mls/hr 07/22/23 09:15 07/22/23 10:11 Ns IV 07/22/23 10:15 999 mls/hr .Q1H1M MANUEL Administration Ceftriaxone Sodium 1 gm/ 50 mls @ 100 mls/hr 07/22/23 09:25 07/22/23 10:45 Sodium Chloride IV 07/22/23 09:54 Infused ONCE ONE Infusion Doxycycline Hyclate 100 mg/ 250 mls @ 166.67 mls/hr 07/22/23 09:26 07/22/23 10:57 Sodium Chloride IV 07/22/23 10:55 166.67 mls/hr ONCE ONE Administration Methylprednisolone Sodium Succinate 60 mg 07/22/23 09:05 07/22/23 09:51 Methylprednisolone Sod Succ 125 Mg/2 Ml Vial IVPUSH 07/22/23 09:06 60 mg ONCE ONE Administration Ondansetron HCl 4 mg 07/22/23 09:05 07/22/23 09:51 Ondansetron Hcl 4 Mg/2 Ml Vial IVPUSH 07/22/23 09:06 4 mg ONCE ONE Administration Medical Decision Making Medical Decision Making [facility] Narrative: 62 yo female with PMH of bronchitis, IVDA, COPD, HTN, HLD, anemia, GERD, IBS, gastroparesis, anxiety, depression, here with URI symptoms worsening asthma and n/v at this time will obtain labs, EKG, troponin, cultures, viral panel start on nebs and IV steroids will also hydrate. Suspect reactive airway disease with likely URI component Differential Diagnosis Differential Diagnoses: The differential diagnosis associated with the presentation includes viral syndrome, URI, asthma Admission/Observation Consideration of admission/observation: Escalation of care including admission/observation considered given pneumonia, vomiting, low Na will reassess after therapies she has no hypoxia - tolerating PO in ED PSI score 83 inpatient or outpatient therapy Consult Healthcare Provider Management of the patient was discussed with: Hospitalist (will admit) will admit Lab Data [facility] Lab Attestation statement: I reviewed the patient's lab results. 07/22/23 08:30 07/22/23 11:40 Labs: Lab Results 07/22/23 07/22/23 07/22/23 Range/Units 08:30 10:02 11:40 WBC 6.3 (4.8-10.8) X10*3/uL RBC 4.92 (4.20-5.50) X10*6/uL Hgb 14.2 (12.0-16.0) g/dl Hct 41.0 (37.0-47.0) % MCV 83.3 (80.0-98.0) fL MCH 28.9 (27.0-33.0) pg MCHC 34.6 (31.0-35.0) g/dl RDW 13.8 (11.0-16.0) % Plt Count 207 (160-400) X10*3/uL MPV 9.0 L (9.4-12.3) fL Immature Gran % (Auto) 0.3 (0.0-0.4) % Neut % (Auto) 51.9 (45-73) % Lymph % (Auto) 33.1 (20-40) % [place] % (Auto) 10.2 (2-11) % Eos % (Auto) 3.5 (0-4) % Baso % (Auto) 1.0 (0-2) % Lymph # (Auto) 2.1 (1.2-4.9) X10*3/uL [place] # (Auto) 0.6 (0.1-1.2) X10*3/uL Eos # (Auto) 0.2 (0.0-0.4) X10*3/uL Baso # (Auto) 0.1 (0.0-0.2) X10*3/uL Abs Immat Gran (auto) 0.02 (0.00-0.03) X10*3/uL Absolute Neuts (auto) 3.3 (2.0-8.3) x10*3/uL Absolute Nucleated RBC 0.000 (0.0-0.012) X10*3/uL Nucleated RBC % (auto) 0.0 (0.0-0.2) /100WBC Sodium 130 L 131 L (135-145) mmol/L Potassium 4.2 (3.3-5.1) mmol/L Chloride 96 (96-108) mmol/L Carbon Dioxide 24 (22-29) mmol/L Anion Gap 14 (12-20) BUN 8 L (9-16) mg/dL Creatinine 0.72 (0.5-1.4) mg/dL Estim Creat Clear Calc 63.2 Estimated GFR > 60 Random Glucose 131 H (60-115) mg/dL Lactic Acid 1.2 (0.5-2.0) mmol/L Calcium 8.8 D (8.4-10.2) mg/dL Magnesium 1.9 (1.6-2.6) mg/dL Total Bilirubin 0.7 (0.0-1.0) mg/dL AST 16 (5-31) U/L ALT 5 (0-31) U/L Alkaline Phosphatase 55 (39-117) U/L Troponin I High Sens < 2.7 (<3.5-17.0) ng/L Total Protein 7.1 (6.5-8.0) g/dL Albumin 4.1 (3.5-5.0) g/dL Influenza Type A (PCR) NEGATIVE (Negative) Influenza Type B (PCR) NEGATIVE (Negative) RSV RNA Qual (PCR) NEGATIVE (Negative) SARS-CoV-2 RNA (RT-PCR) NEGATIVE (Negative) Independent Interpretation I performed an independent interpretation of an: EKG and Plain X-Ray (pneumonia noted) Interpretation: Rate: 98 Rhythm: NSR [place]: left Normal P waves. Normal BETZAIDA. Normal QRS complex. ST T wave : no SHANNON, inverted V1-V2, aVL, suble ST depression V4-V6 qTC: 490 prior studies: changed from prior The study has been interpreted contemporaneously by me. . Radiology Impression Discussion of test interpretation with radiology: I have reviewed the radiologist's reading. External Record Review External record reviewed: Inpatient record Discharge Plan Discharge Clinical Impression: Pneumonia, Acute hyponatremia, Nausea & vomiting, Acute electrocardiogram changes Patient Disposition: Admitted As Inpatient Prescriptions: No Action ibuprofen 600 mg tablet 600 mg PO Q8H PRN (Reason: pain) 30 Days Qty: 90 1RF Rx Instructions: take with food cyclobenzaprine 5 mg tablet 5 mg PO TID PRN (Reason: muscle spasm) 30 Days Qty: 90 1RF metoprolol succinate 50 mg tablet extended release 24 hr 50 mg PO DAILY Qty: 90 2RF cholecalciferol (vitamin D3) 50 mcg (2,000 unit) capsule 50 mcg PO DAILY 90 Days Qty: 90 3RF Rx Instructions: 1 capsule Orally Once a day albuterol sulfate [Ventolin HFA] 90 mcg/actuation HFA aerosol inhaler 1 puff PO Q6H PRN (Reason: shortness of breath or wheezing) 30 Days Qty: 8.5 3RF simvastatin 40 mg tablet 40 mg PO BEDTIME Qty: 90 1RF hydroxyzine HCl 50 mg tablet 50 mg PO BEDTIME Qty: 90 1RF losartan 25 mg tablet 25 mg PO DAILY Qty: 90 1RF solifenacin 10 mg tablet 10 mg PO DAILY Qty: 90 1RF escitalopram oxalate 20 mg tablet 20 mg PO DAILY Qty: 90 1RF oxycodone 5 mg tablet 5 mg PO .1-2 times daily PRN (Reason: pain) 10 Days Qty: 20 0RF lorazepam 1 mg tablet 1 mg PO BID PRN (Reason: anxiety) 28 Days Qty: 56 0RF ondansetron 4 mg tablet,disintegrating 4 mg PO Q8H PRN (Reason: nausea and vomiting) Qty: 20 0RF mupirocin 2 % ointment 1 appl topical BID Qty: 15 0RF ferrous sulfate [Feosol] 325 mg (65 mg iron) tablet 325 mg PO DAILY 30 Days Qty: 30 5RF mirtazapine 30 mg tablet 30 mg PO BEDTIME 90 Days Qty: 90 1RF silver sulfadiazine 1 % cream topical BID Spiriva with HandiHaler 18 mcg capsule, w/inhalation device 1 cap inhalation DAILY 30 Days Qty: 30 5RF Rx Instructions: puncture 1 cap using device; one dose = 2 inhalations amoxicillin 500 mg capsule 2,000 mg PO ONCE PRN Rx Instructions: Take 4 capsules 2 hours before procedure mesalamine 1,000 mg suppository 1,000 mg [place] BEDTIME loperamide [Anti-Diarrheal (loperamide)] 2 mg capsule 2 mg PO BID PRN (Reason: loose stool) Qty: 60 3RF alosetron 0.5 mg tablet 1 mg PO DAILY Qty: 60 6RF metoclopramide HCl [Reglan] 5 mg tablet 5 mg PO .TIDAC 30 Days Qty: 90 6RF pantoprazole 40 mg tablet,delayed release (DR/EC) 40 mg PO DAILY 90 Days Qty: 90 1RF sucralfate [Carafate] 1 gram tablet 4 g PO QNOON Qty: 120 3RF Print Language: [place]ar[place]
[2023-07-22 08:54] LABS: Alanine Aminotransferase 5 U/L (0-31); Albumin Level 4.1 g/dL (3.5-5.0); Alkaline Phosphatase 55 U/L (39-117); Anion Gap 14 (12-20); Aspartate Amino Transferase 16 U/L (5-31); Bilirubin Total 0.7 mg/dL (0.0-1.0); Blood Urea Nitrogen 8 mg/dL (9-16); Calcium 8.8 mg/dL (8.4-10.2); Carbon Dioxide 24 mmol/L (22-29); Chloride 96 mmol/L (96-108); Creatinine Clr Calc Pharmacy 63.2; Estimated Glomerular Filt Rate > 60; Glucose Random 131 mg/dL (60-115); Potassium 4.2 mmol/L (3.3-5.1); Sodium 130 mmol/L (135-145); Total Protein 7.1 g/dL (6.5-8.0)
[2023-07-22 09:05] LABS: Troponin-I High Sensitivity < 2.7 ng/L (<3.5-17.0)
[2023-07-22 09:33] LABS: Magnesium 1.9 mg/dL (1.6-2.6)
[2023-07-22] MEDS: Albuterol Sulfate 90 MCG 8 GM INHALER 2 PUFF INHALE (09:43)
[2023-07-22] MEDS: ondansetron HCL 4 MG/2 ML VIAL IVPUSH (09:51)
[2023-07-22] MEDS: methylPREDNISolone Sod Succ 125 MG/2 ML VIAL 60 MG IVPUSH ×3 (09:51→21:20)
[2023-07-22] MEDS: Magnesium Sulfate/H2O 2 GM/50 ML PIGGYBACK IV (09:52)
[2023-07-22] MEDS: 0.9 % Sodium Chloride 1,000 ML 999 ML IV (10:11)
[2023-07-22] MEDS: cefTRIAXone sodium 1 GM in 0.9 % Sodium Chloride 50 ML IV (10:11)
[2023-07-22 10:19] LABS: Lactic Acid 1.2 mmol/L (0.5-2.0)
[2023-07-22 10:53] LABS: Influenza A PCR NEGATIVE (Negative); Influenza B PCR NEGATIVE (Negative); Resp Syncy Virus RNA Qual PCR NEGATIVE (Negative); SARS COV2 PCR INHOUSE NEGATIVE (Negative)
[2023-07-22] MEDS: Doxycycline Hyclate 100 MG in 0.9 % Sodium Chloride 250 ML 166.67 MG IV ×2 (10:57→23:39)
[2023-07-22 11:56] LABS: Sodium 131 mmol/L (135-145)
--- NOTE | 2023-07-22 12:42 | PC.NURSE ---
PT AWARE OF PLAN OF CARE FOR ADMISSION TO HOSP.
[2023-07-22] MEDS: 0.9 % Sodium Chloride 1,000 ML 80 ML IVCONT (13:03)
--- NOTE | 2023-07-22 13:36 | P.HPHOSP_ITS ---
History of Present Illness Date of Service: 07/22/23 Chief Complaint: shortness of breath 62 yo female with PMH of bronchitis, IVDA, COPD, HTN, HLD, anemia, GERD, IBS, gastroparesis, anxiety, depression, notes she started to feel sick with increasing cough, difficulty breathing, sputum production and chills yesterday with vomiting. She feels weak today and still feels cough and wheezing. She states her nebs are not helping. She denies travel, sick contacts. Has had similar presentations in the past. In the emergency room given Solu-Medrol doxycycline and nebs with improvement. Will be admitted for same Review of Systems 2 Review of Systems: Denies chest pain Admits shortness of breath with minimal exertion Admits nausea denies vomiting diarrhea Denies fever chills PMFSH Medical History Rectal prolapse Bronchitis Nicotine dependence, cigarettes, uncomplicated Nonrheumatic mitral (valve) insufficiency Pulmonary nodule History of hepatitis C Osteopenia (~2011) COPD (chronic obstructive pulmonary disease) IV drug user Endocarditis of mitral valve (~11/2017) Mitral valve prolapse Mitral regurgitation Early satiety Paresthesia of left leg Allergic rhinitis Facet arthritis of lumbar region Cervical spondylosis Vitamin D deficiency Pure hypercholesterolemia Benign essential hypertension Depression GERD (gastroesophageal reflux disease) Anxiety Family History Father Internal bleeding Mother Medical history unknown Surgical History History of liver biopsy (~2009) History of partial colectomy (~2014) History of hysteroscopy (~2010) History of colonoscopy (~2017) Social History Housing: House Housing Other:: lives alone with her cat Malena Alcohol intake: current Alcohol intake frequency: former alcohol drinker Patient Tobacco Use Status: Current everyday Tobacco user Tobacco use type: Cigarette Cigarette Packs Per Day: 0.5 Cigarettes Per Day: 10 Years Smoked: 45 years (onset 15, 1/2-3/4ppd x 44yrs, 28pyh) Smoked in Last 30 Days: Yes e-Cigarette/Vaping Use: Never Used Second Hand Smoke Exposure: Yes Use of substances other than those prescribed or required for medical reasons: No Substance Use Type: Marijuana Advance Directives: Yes Advance Directives on File: Yes Advance Directives Date on File: 12/18/21 Patient : No service: No Current occupational status: unemployed Sexual orientation: Straight/Heterosexual Gender identity: Female Cognitive needs: No Hearing needs: No Vision needs: Yes Meds Allergies Allergy/AdvReac Type Severity Reaction Status Date / Time No Known Allergies Allergy Unknown unknown Verified 07/22/23 08:35 [NO KNOWN ALLERGIES] Active Medications: Current Medications Acetaminophen (Acetaminophen 325 Mg Tablet) 650 mg PO Q6H PRN PRN Reason: Pain, Mild (Pain Scale 1-3) Albuterol/Ipratropium (Albuterol/Iprat 2.5/0.5mg 3 Ml Ampul.Neb) 3 ml INHALE RQ4H WHILE AWAKE [facility] Enoxaparin Sodium (Enoxaparin Sodium 40 Mg/0.4 Ml Syringe) 40 mg SUBCUT Q24H [facility] Sodium Chloride (Ns) 1,000 mls @ 80 mls/hr IVCONT .[id number] [facility] Last Admin: 07/22/23 13:03 Dose: 80 mls/hr Ceftriaxone Sodium 1 gm/ (Sodium Chloride) 50 mls @ 100 mls/hr IV Q24H MANUEL Doxycycline Hyclate 100 mg/ (Sodium Chloride) 250 mls @ 166.67 mls/hr IV Q12H [facility] Methylprednisolone Sodium Succinate (Methylprednisolone Sod Succ 125 Mg/2 Ml Vial) 60 mg IVPUSH Q6H MANUEL Ondansetron HCl (Ondansetron Hcl 4 Mg/2 Ml Vial) 4 mg IVPUSH Q8H PRN PRN Reason: Nausea and Vomiting Sodium Chloride (0.9 % Sodium Chloride Flush 3 Ml Syringe) 3 ml IVFLUSH QSHIFT [facility] Home Medications ?Medication ?Instructions ?Recorded ?Confirmed ?Last Taken ?Type silver sulfadiazine 1 % topical appl topical BID 07/16/22 06/03/23 Unknown History cream amoxicillin 500 mg capsule 2,000 mg PO ONCE PRN 04/29/23 06/03/23 Unknown History mesalamine 1,000 mg rectal 1,000 mg [place] BEDTIME 04/29/23 06/03/23 Unknown History suppository Physical Exam 2 Vital Signs and Narrative: Vital Signs: Last Vital Signs Temp 98.1 F 07/22/23 13:35 Pulse 76 07/22/23 13:35 Resp 12 07/22/23 13:35 BP 133/76 07/22/23 13:35 Pulse Ox 92 07/22/23 13:35 O2 Del Method Room Air 07/22/23 13:35 BMI result Body Mass Index 22.9 Const: Other: Awake alert no acute distress Resp: Other: Diminished at bases with scattered expiratory wheezes Cardio: Other: No S4; positive S1-S2; no S3 murmurs rubs or gallops GI: Other: Soft nontender nondistended normoactive bowel sounds Neuro: Other: Cranial nerves 2-12 grossly intact as tested. Motor is 5/5 all extremities. Sensation is intact. Cognition appropriate Extrem: Other: No edema bilaterally Results Labs 07/22/23 08:30 07/22/23 11:40 Labs: Laboratory Results - last 24 hr 07/22/23 07/22/23 08:30 10:02 MCV 83.3 MCH 28.9 MCHC 34.6 RDW 13.8 Plt Count 207 MPV 9.0 L Immature Gran % (Auto) 0.3 Neut % (Auto) 51.9 Lymph % (Auto) 33.1 [place] % (Auto) 10.2 Eos % (Auto) 3.5 Baso % (Auto) 1.0 Lymph # (Auto) 2.1 [place] # (Auto) 0.6 Eos # (Auto) 0.2 Baso # (Auto) 0.1 Abs Immat Gran (auto) 0.02 Absolute Neuts (auto) 3.3 Absolute Nucleated RBC 0.000 Nucleated RBC % (auto) 0.0 Anion Gap 14 Estim Creat Clear Calc 63.2 Estimated GFR > 60 Random Glucose 131 H Lactic Acid 1.2 Calcium 8.8 D Magnesium 1.9 Total Bilirubin 0.7 AST 16 ALT 5 Alkaline Phosphatase 55 Troponin I High Sens < 2.7 Total Protein 7.1 Albumin 4.1 Influenza Type A (PCR) NEGATIVE Influenza Type B (PCR) NEGATIVE RSV RNA Qual (PCR) NEGATIVE SARS-CoV-2 RNA (RT-PCR) NEGATIVE Imaging Radiologist's Impressions: Impressions Chest X-Ray 07/22/23 08:51 IMPRESSION: Interval development of right suprahilar alveolar infiltrates, suggestive of pneumonia. Assessment and Plan (1) Acute exacerbation of chronic obstructive pulmonary disease (COPD): Status: Acute (2) Acute hyponatremia: Status: Acute (3) Acute electrocardiogram changes: Status: Acute Plan 62 yo female with PMH of bronchitis, IVDA, COPD, HTN, HLD, anemia, GERD, IBS, gastroparesis, anxiety, depression, presents with proximally 48 hours of worsening shortness of breath and sputum production. She states was not accompanied by fever and chills. In the emergency room, found to have acute EKG changes along with hyponatremia. Will be admitted for same 1. Acute exacerbation of COPDsecondary to pneumonia -ceftriaxone/doxycycline (1) -pulse dose methylprednisolone 60 mg IV q.6 hours -DuoNebs q.4 hours while awake -titrate O2 to maintain sats greater than equal to 90% 2. Acute hyponatremia -volume repletion with normal saline solution -follow renals/divalents 3. Acute EKG changes -asymptomatic -repeat EKG in a.m. Full code Lovenox Will require 2 midnights going forward of inpatient stay to treat pneumonia with IV antibiotics and IV steroids. This can not be achieved a lesser acute setting Quality Stroke Does the patient have a stroke diagnosis?: No VTE Prior VTE?: No VTE Risk Level:: Medical - moderate - high VTE Device Contraindication: Treatment Not Indicated VTE Drug Contraindication: N/A - Med Ordered
--- NOTE | 2023-07-22 14:06 | PHA.MEDREC ---
Pharmacy Consult ? Medication Reconciliation Pharmacy has completed the medication reconciliation. Spoke to patient and confirmed medication list.
[2023-07-22] MEDS: Albuterol/Iprat 2.5/0.5MG 3 ML AMPUL.NEB INHALE ×2 (15:12→20:36)
[2023-07-22] MEDS: Enoxaparin Sodium 40 MG/0.4 ML SYRINGE SUBCUT (15:19)
--- NOTE | 2023-07-22 15:21 | PC.NURSE ---
this rn assumed care of pt @ 1500. pt medicated according to jun.
[2023-07-22] MEDS: LORazepam 1 MG TABLET PO (19:31)
--- NOTE | 2023-07-22 19:44 | PC.NURSE ---
pt requested prn ativan. pt medicated according to mar
[2023-07-22] MEDS: hydrOXYzine HCL 50 MG TABLET PO (21:20)
[2023-07-22] MEDS: Mirtazapine 30 MG TABLET PO (21:20)
[2023-07-22] MEDS: Atorvastatin Calcium 20 MG TABLET PO (21:20)
--- NOTE | 2023-07-22 21:35 | MHC.CM.PN ---
IMM 07/21. Original given and copy to medical records. Address verified. Pt lives alone with her animals. Is independent. Drives. No DME/services. THRIVE assessment negative. HCP on file. PCP verified. D/C plan: Home without services. Pt will drive herself home, as her car is in the parking lot. Pt can arrange a ride home if needed. CM will follow for discharge planning.
[2023-07-23] VITALS (13 sets, daily range): BP systolic 103–154; BP diastolic 55–79; PULSE 67–92; RESP 16–20; TEMP 36.1–37.2; O2SAT 90–98
[2023-07-23] MEDS: 0.9 % Sodium Chloride 1,000 ML 80 ML IVCONT ×2 (00:32→13:19)
[2023-07-23] MEDS: LORazepam 1 MG TABLET PO ×3 (01:05→21:00)
[2023-07-23] MEDS: methylPREDNISolone Sod Succ 125 MG/2 ML VIAL 60 MG IVPUSH ×4 (01:06→21:00)
--- NOTE | 2023-07-23 01:17 | PC.NURSE ---
Pt aox4, resting at the bedside. No apparent distress noted. Breaths are even regular and unlabored. O2 sat 94% RA. Denies pain. Reports feeling anxious and tearful at times. Mcgraw text sent to Dr. Terry. New orders placed in JUN. Pending bed assignment. Pt is aware of plan of care. Monitoring is ongoing.
[2023-07-23 05:42] LABS: Basophils Percent Auto 0.1 % (0-2); Hematocrit 34.3 % (37.0-47.0); Hemoglobin 11.4 g/dl (12.0-16.0); Imm Gran Abs Auto 0.05 X10*3/uL (0.00-0.03); Imm Gran Pct Auto 0.6 % (0.0-0.4); Lymphocytes Absolute Auto 0.6 X10*3/uL (1.2-4.9); Lymphocytes Percent Auto 6.3 % (20-40); MANUAL DIFF FLAG SCAN; Mean Corpuscular HGB Conc 33.2 g/dl (31.0-35.0); Mean Corpuscular Hemoglobin 28.1 pg (27.0-33.0); Mean Corpuscular Volume 84.7 fL (80.0-98.0); Mean Platelet Volume 9.6 fL (9.4-12.3); Monocytes Absolute Auto 0.2 X10*3/uL (0.1-1.2); Monocytes Percent Auto 1.7 % (2-11); Neutrophils Absolute Auto 8.2 x10*3/uL (2.0-8.3); Neutrophils Percent Auto 91.3 % (45-73); Platelet Count 145 X10*3/uL (160-400); Red Blood Count 4.05 X10*6/uL (4.20-5.50); Red Cell Distribution Width 13.7 % (11.0-16.0); SCAN SMEAR FLAG 1
[2023-07-23 06:10] LABS: Alanine Aminotransferase 5 U/L (0-31); Albumin Level 3.6 g/dL (3.5-5.0); Alkaline Phosphatase 52 U/L (39-117); Anion Gap 13 (12-20); Aspartate Amino Transferase 12 U/L (5-31); Bilirubin Total 0.3 mg/dL (0.0-1.0); Blood Urea Nitrogen 7 mg/dL (9-16); Calcium 8.4 mg/dL (8.4-10.2); Carbon Dioxide 19 mmol/L (22-29); Chloride 102 mmol/L (96-108); Estimated Glomerular Filt Rate > 60; Glucose Random 132 mg/dL (60-115); Sodium 130 mmol/L (135-145); Total Protein 6.1 g/dL (6.5-8.0)
[2023-07-23 06:24] LABS: SLIDE REVIEW VERIFIED
--- NOTE | 2023-07-23 06:24 | ECG_ITS ---
Test Reason : abn ekg Blood Pressure : / mmHG Vent. Rate : 077 BPM Atrial Rate : 077 BPM P-R Int : 198 ms QRS Dur : 102 ms QT Int : 428 ms P-R-T Axes : 081 -23 050 degrees QTc Int : 484 ms Sinus rhythm with occasional , and consecutive Premature ventricular complexes Low voltage QRS Abnormal ECG When compared with ECG of 22-JUL-2023 08:24, Premature ventricular complexes are now Present Nonspecific T wave abnormality no longer evident in Lateral leads Referred By: Sincere Carl Electronically Signed By:CHRISTELLE HESS
[2023-07-23] MEDS: Metoprolol Succinate ER 50 MG TAB.ER.24H PO (07:49)
[2023-07-23] MEDS: Omeprazole 20 MG CAPSULE.DR PO (07:50)
[2023-07-23] MEDS: Metoclopramide HCl 5 MG TABLET PO ×3 (07:50→15:26)
[2023-07-23] MEDS: Losartan Potassium 25 MG TABLET PO (07:50)
[2023-07-23] MEDS: Aspirin Enteric Coated 81 MG TABLET.DR PO (07:51)
[2023-07-23] MEDS: Escitalopram Oxalate 20 MG TABLET PO (07:51)
[2023-07-23] MEDS: 0.9 % Sodium Chloride Flush 3 ML SYRINGE IVFLUSH ×2 (07:52→21:00)
[2023-07-23] MEDS: Albuterol/Iprat 2.5/0.5MG 3 ML AMPUL.NEB INHALE ×4 (08:05→19:48)
[2023-07-23] MEDS: cefTRIAXone sodium 1 GM in 0.9 % Sodium Chloride 50 ML IV (08:48)
[2023-07-23] MEDS: Cyclobenzaprine HCl 5 MG TABLET PO (11:14)
[2023-07-23] MEDS: Sucralfate 1 GM TABLET 4 GM PO (11:15)
[2023-07-23] MEDS: Doxycycline Hyclate 100 MG in 0.9 % Sodium Chloride 250 ML 166.67 MG IV ×2 (11:15→23:13)
[2023-07-23] MEDS: Enoxaparin Sodium 40 MG/0.4 ML SYRINGE SUBCUT (13:22)
--- NOTE | 2023-07-23 14:50 | P.PNIM_ITS ---
Subjective Subjective Date of Service: 07/23/23 Interval History: Notes improvement since admission. Ongoing issues with rectal prolapse. Review of Systems Denies chest pain Admits shortness of breath with minimal exertion Admits nausea denies vomiting diarrhea Denies fever chills Physical Exam 2 Vital Signs: Vital Signs: Last Vital Signs Temp 97.0 F 07/23/23 10:59 Pulse 81 07/23/23 11:36 Resp 20 07/23/23 11:36 BP 154/70 H 07/23/23 10:59 Pulse Ox 98 07/23/23 10:59 O2 Del Method Room Air 07/23/23 10:59 BMI result Body Mass Index 22.9 Const: Other: Awake alert no acute distress Resp: Other: Diminished at bases with scattered expiratory wheezes Cardio: Other: No S4; positive S1-S2; no S3 murmurs rubs or gallops GI: Other: Soft nontender nondistended normoactive bowel sounds Neuro: Other: Cranial nerves 2-12 grossly intact as tested. Motor is 5/5 all extremities. Sensation is intact. Cognition appropriate Extrem: Other: No edema bilaterally Objective Data Active Medications Acetaminophen (Acetaminophen 325 Mg Tablet) 650 mg PO Q6H PRN PRN Reason: Pain, Mild (Pain Scale 1-3) Albuterol/Ipratropium (Albuterol/Iprat 2.5/0.5mg 3 Ml Ampul.Neb) 3 ml INHALE RQ4H WHILE AWAKE [facility] Last Admin: 07/23/23 11:35 Dose: 3 ml Documented By: CECILIA Aspirin (Aspirin Enteric Coated 81 Mg Tablet.) 81 mg PO DAILY@0900 [facility] Last Admin: 07/23/23 07:51 Dose: 81 mg Documented By: MATHEW Atorvastatin Calcium (Atorvastatin Calcium 20 Mg Tablet) 20 mg PO BEDTIME [facility] Last Admin: 07/22/23 21:20 Dose: 20 mg Documented By: ISRA Cyclobenzaprine HCl (Cyclobenzaprine Hcl 5 Mg Tablet) 5 mg PO TID PRN PRN Reason: muscle spasm Last Admin: 07/23/23 11:14 Dose: 5 mg Documented By: MATHEW Enoxaparin Sodium (Enoxaparin Sodium 40 Mg/0.4 Ml Syringe) 40 mg SUBCUT Q24H [facility] Last Admin: 07/23/23 13:22 Dose: 40 mg Documented By: MATHEW Escitalopram Oxalate (Escitalopram Oxalate 20 Mg Tablet) 20 mg PO DAILY [facility] Last Admin: 07/23/23 07:51 Dose: 20 mg Documented By: MATHEW Hydroxyzine HCl (Hydroxyzine Hcl 50 Mg Tablet) 50 mg PO BEDTIME [facility] Last Admin: 07/22/23 21:20 Dose: 50 mg Documented By: ISRA Sodium Chloride (Ns) 1,000 mls @ 80 mls/hr IVCONT .[id number] [facility] Last Admin: 07/23/23 13:19 Dose: 80 mls/hr Documented By: MATHEW Ceftriaxone Sodium 1 gm/ (Sodium Chloride) 50 mls @ 100 mls/hr IV Q24H [facility] Last Infusion: 07/23/23 09:28 Dose: Infused Documented By: MATHEW Doxycycline Hyclate 100 mg/ (Sodium Chloride) 250 mls @ 166.67 mls/hr IV Q12H [facility] Last Infusion: 07/23/23 13:32 Dose: Infused Documented By: MATHEW Lorazepam (Lorazepam 1 Mg Tablet) 1 mg PO BID PRN PRN Reason: anxiety Last Admin: 07/23/23 11:14 Dose: 1 mg Documented By: MATHEW Losartan Potassium (Losartan Potassium 25 Mg Tablet) 25 mg PO DAILY [facility]; Protocol Last Admin: 07/23/23 07:50 Dose: 25 mg Documented By: MATHEW Methylprednisolone Sodium Succinate (Methylprednisolone Sod Succ 125 Mg/2 Ml Vial) 60 mg IVPUSH Q6H [facility] Last Admin: 07/23/23 13:23 Dose: 60 mg Documented By: MATHEW Metoclopramide HCl (Metoclopramide Hcl 5 Mg Tablet) 5 mg PO TIDAC [facility] Last Admin: 07/23/23 11:14 Dose: 5 mg Documented By: MATHEW Metoprolol Succinate (Metoprolol Succinate Er 50 Mg Tab.Er.24h) 50 mg PO DAILY [facility]; Protocol Last Admin: 07/23/23 07:49 Dose: 50 mg Documented By: MATHEW Mirtazapine (Mirtazapine 30 Mg Tablet) 30 mg PO BEDTIME [facility] Last Admin: 07/22/23 21:20 Dose: 30 mg Documented By: ISRA Omeprazole (Omeprazole 20 Mg Capsule.) 20 mg PO DAILY@0630 [facility] Last Admin: 07/23/23 07:50 Dose: 20 mg Documented By: MATHEW Ondansetron HCl (Ondansetron Hcl 4 Mg/2 Ml Vial) 4 mg IVPUSH Q8H PRN PRN Reason: Nausea and Vomiting Sodium Chloride (0.9 % Sodium Chloride Flush 3 Ml Syringe) 3 ml IVFLUSH QSHIFT [facility] Last Admin: 07/23/23 07:52 Dose: 3 ml Documented By: MATHEW Sucralfate (Sucralfate 1 Gm Tablet) 4 gm PO DAILY@1200 [facility] Last Admin: 07/23/23 11:15 Dose: 4 gm Documented By: MATHEW Labs 07/23/23 05:33 07/23/23 05:33 Labs: Laboratory Results - last 24 hr 07/23/23 05:33 MCV 84.7 MCH 28.1 MCHC 33.2 RDW 13.7 Plt Count 145 L D MPV 9.6 Immature Gran % (Auto) 0.6 H Neut % (Auto) 91.3 H Lymph % (Auto) 6.3 L Traill % (Auto) 1.7 L Eos % (Auto) 0.0 Baso % (Auto) 0.1 Lymph # (Auto) 0.6 L Traill # (Auto) 0.2 Eos # (Auto) 0.0 Baso # (Auto) 0.0 Abs Immat Gran (auto) 0.05 H Absolute Neuts (auto) 8.2 Absolute Nucleated RBC 0.000 Nucleated RBC % (auto) 0.0 Smear Tech's Comments VERIFIED Anion Gap 13 Estim Creat Clear Calc 65.0 Estimated GFR > 60 Random Glucose 132 H Calcium 8.4 Total Bilirubin 0.3 AST 12 ALT 5 Alkaline Phosphatase 52 Total Protein 6.1 L Albumin 3.6 Microbiology Microbiology Results: Microbiology 07/22/23 10:02 Blood Culture - Preliminary Blood - Venous No growth after 24 hours. 07/22/23 09:47 Blood Culture - Preliminary Blood - Venous No growth after 24 hours. Assessment and Plan (1) Acute exacerbation of chronic obstructive pulmonary disease (COPD): Status: Acute (2) Pneumonia: Status: Acute (3) Acute electrocardiogram changes: Status: Acute Plan 62 yo female with PMH of bronchitis, IVDA, COPD, HTN, HLD, anemia, GERD, IBS, gastroparesis, anxiety, depression, presents with proximally 48 hours of worsening shortness of breath and sputum production. She states was not accompanied by fever and chills. In the emergency room, found to have acute EKG changes along with hyponatremia. Will be admitted for same 1. Acute exacerbation of COPD secondary to pneumonia -ceftriaxone/doxycycline (2) -pulse dose methylprednisolone 60 mg IV q.6 hours -DuoNebs q.4 hours while awake -titrate O2 to maintain sats greater than equal to 90% 2. Acute hyponatremia -question new baseline -volume repletion with normal saline solution -follow renals/divalents 3. Acute EKG changes -asymptomatic -repeat EKG with resolution of initial changes Full code Ihsanx Will require ongoing hospitalization to treat COPD exacerbation secondary to pneumonia with IV antibiotics Quality Stroke Does the patient have a stroke diagnosis?: No VTE Prior VTE?: No VTE Risk Level:: Medical - moderate - high VTE Device Contraindication: Treatment Not Indicated VTE Drug Contraindication: N/A - Med Ordered
[2023-07-23] MEDS: Loperamide HCl 2 MG CAPSULE PO (15:57)
[2023-07-23] MEDS: Acetaminophen 325 MG TABLET 650 MG PO (19:40)
[2023-07-23] MEDS: Atorvastatin Calcium 20 MG TABLET PO (20:59)
[2023-07-23] MEDS: Mirtazapine 30 MG TABLET PO (21:00)
[2023-07-23] MEDS: hydrOXYzine HCL 50 MG TABLET PO (21:00)
[2023-07-24] VITALS (7 sets, daily range): BP systolic 103–121; BP diastolic 58–75; PULSE 62–92; RESP 18–20; TEMP 36.3–36.6; O2SAT 92–98
[2023-07-24] MEDS: methylPREDNISolone Sod Succ 125 MG/2 ML VIAL 60 MG IVPUSH ×2 (03:12→08:47)
[2023-07-24] MEDS: 0.9 % Sodium Chloride 1,000 ML 80 ML IVCONT (03:13)
[2023-07-24] MEDS: Omeprazole 20 MG CAPSULE.DR PO (05:46)
[2023-07-24 07:30] LABS: Hematocrit 31.4 % (37.0-47.0); Hemoglobin 10.8 g/dl (12.0-16.0); Mean Corpuscular HGB Conc 34.4 g/dl (31.0-35.0); Mean Corpuscular Hemoglobin 28.2 pg (27.0-33.0); Mean Platelet Volume 9.3 fL (9.4-12.3); Platelet Count 168 X10*3/uL (160-400); Red Blood Count 3.83 X10*6/uL (4.20-5.50); White Blood Count 10.2 X10*3/uL (4.8-10.8)
[2023-07-24] MEDS: Albuterol/Iprat 2.5/0.5MG 3 ML AMPUL.NEB INHALE ×2 (08:19→11:23)
[2023-07-24] MEDS: Escitalopram Oxalate 20 MG TABLET PO (08:46)
[2023-07-24] MEDS: Aspirin Enteric Coated 81 MG TABLET.DR PO (08:46)
[2023-07-24] MEDS: Losartan Potassium 25 MG TABLET PO (08:46)
[2023-07-24] MEDS: Metoprolol Succinate ER 50 MG TAB.ER.24H PO (08:46)
[2023-07-24] MEDS: Metoclopramide HCl 5 MG TABLET PO ×2 (08:46→10:53)
[2023-07-24] MEDS: 0.9 % Sodium Chloride Flush 3 ML SYRINGE IVFLUSH (08:47)
[2023-07-24] MEDS: Acetaminophen 325 MG TABLET 650 MG PO (08:49)
[2023-07-24] MEDS: cefTRIAXone sodium 1 GM in 0.9 % Sodium Chloride 50 ML IV (08:51)
[2023-07-24] MEDS: LORazepam 1 MG TABLET PO (08:51)
[2023-07-24] MEDS: Sucralfate 1 GM TABLET 4 GM PO (10:53)
[2023-07-24] MEDS: Doxycycline Hyclate 100 MG in 0.9 % Sodium Chloride 250 ML 166.67 MG IV (10:54)
--- NOTE | 2023-07-24 11:48 | MHC.CM.PN ---
IMM delivered after MD rounds. Patient lives alone. States that she feels well; but is nervous about discharge. Emotional support and encouragement provided. Spoke with MD. VNA will be ordered as well as follow up. Met with patient to obtain preference for VNA. Referral sent to [facility] as requested by patient. Patient accepted for SN visits.
--- NOTE | 2023-07-24 13:42 | P.DS_ITS ---
DS: Providers Provider Date of Service: 07/24/23 Date of admission: 07/22/23 13:19 Date of discharge: 07/24/23 Primary care physician: Sarthak Person MD DS: Diagnosis Discharge Diagnosis (1) Acute exacerbation of chronic obstructive pulmonary disease (COPD): Status: Acute (2) Pneumonia: Status: Acute (3) Acute electrocardiogram changes: Status: Acute DS: Summary Hospital Course Hospital Course: 62 yo female with PMH of bronchitis, IVDA, COPD, HTN, HLD, anemia, GERD, IBS, gastroparesis, anxiety, depression, notes she started to feel sick with incre asing cough, difficulty breathing, sputum production and chills yesterday with vomiting. She feels weak today and still feels cough and wheezing. She states her nebs are not helping. She denies travel, sick contacts. Has had similar presentations in the past. In the emergency room given Solu-Medrol doxycycline and nebs with improvement. Will be admitted for same Hospital course Patient was admitted to telemetry and maintained on ceftriaxone and doxycycline along with prednisone taper. Over the next 48 hours she improved dramatically from a respiratory standpoint. She did however suffer from a chronic exacerbation of a rectal prolapse. This was discussed with Dr. Cagle who will follow her up in the office. Appointment was obtained. She was given 2.5% hydrocortisone cream for her prolapse and encouraged sit best. At this point in time she is medically acceptable for discharge home to complete a course of oral doxycycline and prednisone taper and follow up with Dr. Cagle. She can follow up with the PCP next available Time Attestation Discharge Coordination Time (in mins): 35 Quality: Safe Use of Opioids Does Pt have an Active Cancer Diagnosis on the Problem List?: No Quality: Stroke Does the patient have a stroke diagnosis?: No Physical Exam Vital Signs: Vital Signs: Last Vital Signs Temp 98 F 07/24/23 11:10 Pulse 74 07/24/23 11:25 Resp 18 07/24/23 11:25 BP 106/66 07/24/23 11:10 Pulse Ox 96 07/24/23 11:10 O2 Del Method Room Air 07/24/23 11:10 BMI result Body Mass Index 22.9 Const: Other: Awake alert no acute distress Resp: Other: Diminished at bases with scattered expiratory wheezes Cardio: Other: No S4; positive S1-S2; no S3 murmurs rubs or gallops GI: Other: Soft nontender nondistended normoactive bowel sounds Neuro: Other: Cranial nerves 2-12 grossly intact as tested. Motor is 5/5 all extremities. Sensation is intact. Cognition appropriate Extrem: Other: No edema bilaterally DS: Data Data Completed and Pending Labs on day of discharge: Laboratory Results - last 24 hr 07/24/23 06:44 WBC 10.2 RBC 3.83 L Hgb 10.8 L Hct 31.4 L MCV 82.0 MCH 28.2 MCHC 34.4 RDW 14.0 Plt Count 168 MPV 9.3 L Absolute Nucleated RBC 0.000 Nucleated RBC % (auto) 0.0 Preliminary micro results at discharge 07/22/23 10:02 Blood Culture - Preliminary Blood - Venous No growth after 48 hours. 07/22/23 09:47 Blood Culture - Preliminary Blood - Venous No growth after 48 hours. Discharge Plan Discharge Anticipated Discharge Date/Time: 07/24/23 13:35 Patient Disposition: Home Health Service Discharge Diagnosis: Right middle lobe infiltrate Referrals: [facility] [Outside] - 1 Week Sarthak Person MD [Primary Care Provider] - 1 Week Discharge Medications: New doxycycline hyclate 100 mg tablet 100 mg PO BID Qty: 14 0RF prednisone 10 mg tablet See Rx Instructions .Route .COMPLEX Qty: 45 0RF Rx Instructions: 10 mg orally; 5 tabs p.o. daily x3 days; 4 tabs p.o. daily x3 days; 3 tabs daily x3 days; 2 tabs daily x3 days; 1 tab daily x3 days hydrocortisone 2.5 % cream 1 appl topical BID PRN (Reason: itching) Qty: 30 0RF Continued ibuprofen 600 mg tablet 600 mg PO Q8H PRN (Reason: pain) 30 Days Qty: 90 1RF Rx Instructions: take with food cyclobenzaprine 5 mg tablet 5 mg PO TID PRN (Reason: muscle spasm) 30 Days Qty: 90 1RF albuterol sulfate [Ventolin HFA] 90 mcg/actuation HFA aerosol inhaler 1 puff PO Q6H PRN (Reason: shortness of breath or wheezing) 30 Days Qty: 8.5 3RF simvastatin 40 mg tablet 40 mg PO BEDTIME Qty: 90 1RF hydroxyzine HCl 50 mg tablet 50 mg PO BEDTIME Qty: 90 1RF lorazepam 1 mg tablet 1 mg PO BID PRN (Reason: anxiety) 28 Days Qty: 56 0RF metoprolol succinate 50 mg tablet extended release 24 hr 50 mg PO DAILY@0900 metoclopramide HCl [Reglan] 5 mg tablet 5 mg PO TIDAC pantoprazole 40 mg tablet,delayed release (DR/EC) 40 mg PO DAILY@0630 ferrous sulfate [Feosol] 325 mg (65 mg iron) tablet 325 mg PO DAILY@0900 losartan 25 mg tablet 25 mg PO DAILY@0900 oxycodone 5 mg tablet 5 mg PO BID PRN (Reason: pain) escitalopram oxalate 20 mg tablet 20 mg PO DAILY@0900 alosetron 0.5 mg tablet 1 mg PO DAILY@0900 tiotropium bromide [Spiriva with HandiHaler] 18 mcg capsule, w/inhalation device 1 cap inhalation DAILY@0900 Rx Instructions: puncture 1 cap using device; one dose = 2 inhalations solifenacin 10 mg tablet 10 mg PO DAILY@0900 cholecalciferol (vitamin D3) 50 mcg (2,000 unit) capsule 50 mcg PO DAILY@0900 Rx Instructions: 1 capsule Orally Once a day aspirin 81 mg Tablet,Delayed Release (Dr/Ec) 81 mg PO DAILY@0900 mirtazapine 30 mg tablet 30 mg PO BEDTIME 90 Days Qty: 90 1RF sucralfate [Carafate] 1 gram tablet 4 g PO QNOON Qty: 120 3RF Discharge Orders: Discharge Order (Routine); Ordered 07/24/23 Ordered By: Sincere Carl Diet: Advance to usual diet Activity on Discharge: As tolerated Stand Alone Forms: Patient Portal Discharge page Print Language: Nepali Care Plan Goals: Complete course of doxycycline twice daily as well as prednisone taper as ordered Health Concerns: Hydrocortisone twice daily as needed to rectal prolapse Plan of Treatment: Appointment with Dr. Cagle 07/29/23 11:15 Assessment: See discharge summary
--- NOTE | 2023-07-24 13:45 | W.MHC.F2F ---
Service Date Service Date: 07/24/23 Encounter Date of encounter: 07/24/23 Encounter: Acute hospitalization Reasons for Services Signs and symptoms assessed: Monitor respiratory status including oxygen saturation and teach disease management related to rectal prolapse Reason for prison: medication management and teach disease management Homebound: Leaving the home is medically contraindicated at this time without the asist of a device and/or another person due th the listed conditions above and below. Reason homebound: unsteady gait / fall risk and unable to drive Certification: Based on the above findings, I certify that this patient is confined to the home and needs intermittent prison care, physical therapy and/or speech therapy, or continues to need occupational therapy. The patient is under my care, and I have initiated the establishment of the plan of care. The patient will be followed by a physician who will periodically review the plan of care. Time Spent With Patient Time: Total time managing care of this patient today ____ minutes.
== END 2023-07-24 14:47 | disposition home health service (06) | DRG 190 ==
LOC: HO.ED 12:00 → HO.EDOVER 13:26 → HO.IMC 07-23 06:11
PROVIDERS: Internal Medicine; Admitting Provider Hospitalist; Emergency Provider Emergency Medicine; PCP Internal Medicine; Visit Provider Hospitalist
DX: J44.0 Chronic obstructive pulmonary disease with (acute) lower respiratory infection (principal); J18.9 Pneumonia, unspecified organism; E87.1 Hypo-osmolality and hyponatremia; J44.1 Chronic obstructive pulmonary disease with (acute) exacerbation; K62.3 Rectal prolapse; F17.210 Nicotine dependence, cigarettes, uncomplicated; Z20.822 Contact with and (suspected) exposure to COVID-19; Z71.6 Tobacco abuse counseling; Z79.82 Long term (current) use of aspirin; Z79.899 Other long term (current) drug therapy
CPT/HCPCS: 0241U; 36415; 71046; 80053; 83605; 83735; 84295; 84484; 85025; 85027; 87040; 93005; 94640; 94664; 99222; 99285; J0696; J1650; J2405; J2919; J2930; J3475

== ENCOUNTER → 2023-07-22 08:24 | Outpatient (BNV) | payer MEDICARE, SELFPAY | PROVIDERS: Admitting Provider Hospitalist; Emergency Provider Emergency Medicine; PCP Internal Medicine; Visit Provider Internal Medicine | DX: I45.81 Long QT syndrome (principal) | CPT/HCPCS: 93010 ==

== ENCOUNTER 2023-07-22 13:19 | Outpatient (BNV) | payer MEDICARE, MEDICAID, SELFPAY | END 2023-07-23 06:24 | PROVIDERS: Admitting Provider Hospitalist; Emergency Provider Emergency Medicine; PCP Internal Medicine; Visit Provider Internal Medicine | DX: R94.31 Abnormal electrocardiogram [ECG] [EKG] (principal) | CPT/HCPCS: 93010 ==

== ENCOUNTER → 2023-07-22 13:19 | Outpatient (BNV) | payer MEDICARE, SELFPAY | PROVIDERS: Admitting Provider Hospitalist; Emergency Provider Emergency Medicine; PCP Internal Medicine; Visit Provider Hospitalist | DX: J44.1 Chronic obstructive pulmonary disease with (acute) exacerbation (principal); J18.9 Pneumonia, unspecified organism; R94.31 Abnormal electrocardiogram [ECG] [EKG] | CPT/HCPCS: 99223; 99232; 99239; G0180 ==

== ENCOUNTER 2023-07-25 08:12 | Inpatient (IN) | payer MEDICARE, MEDICAID, SELFPAY ==
[2023-07-25] VITALS (8 sets, daily range): BP systolic 134–163; BP diastolic 68–87; PULSE 65–84; RESP 13–22; TEMP 36.1–37; O2SAT 90–100; BMI 24.1; BMI 23.8
--- NOTE | ~2023-07-25 | XR_ITS ---
EXAMINATION: XR chest 2V CLINICAL INFORMATION: Reason for Exam sob COMPARISON: 07/22/2023 TECHNIQUE: XR chest 2V, 2 Views Lungs and Rehana: Redemonstration of right parahilar opacification possibly a patchy infiltrate versus lung nodule. Lungs are hyperinflated suggesting air trapping disease COPD. Pleura: Normal. Costophrenic angles are sharp. No pneumothorax. Heart: The heart is normal in size. Mediastinum: The mediastinum is within normal limits.. Bones: Skeletal structures included are normal for patient's age. XR/XR chest 2V IMPRESSION: 1. Redemonstration of right parahilar opacification possibly a patchy infiltrate versus lung nodule. 2. Hyperinflated lungs suggesting air trapping disease COPD. 3. No pleural effusion. 4. ATTENTION TO FOLLOW-UP chest x-ray or CT scan in one month recommended.
--- NOTE | 2023-07-25 08:22 | ED_ITS ---
HPI - SOB/Dyspnea General Chief Complaint: Dyspnea Stated Complaint: SOB,RECENT PNA PER EMS Time Seen by Provider: 07/25/23 08:14 Source: patient, EMS, RN notes reviewed and old records reviewed Mode of arrival: EMS Limitations: no limitations History of Present Illness HPI Narrative: 62-year-old female with pmhx significant for IVDA, endocarditis, COPD, current tobacco smoker, hyponatremia, hypertension, HDL, anemia, GERD, IBS, gastroparesis, anxiety, depression presents to the ED today via EMS for evaluation of shortness of breath that began upon waking this morning. Admits my chest hurts . Denies fevers, chills, sore throat, cough, wheezing, hemoptysis, palpitations, calf pain/tenderness. Patient current tobacco user endorsing approximately 1/2 pack per day. Patient seen for same on 07/22/2023 (3 days ago) and was admitted to hospitalist service for treatment of COPD exacerbation secondary to pneumonia. She was discharged yesterday. She has not yet taken the medications that she was discharged home with (doxy, ceftriaxone, and prednisone taper) as she was told to begin these today. Per EMS, patient was smoking a cigarette when they arrived to transport her to the ED. Related Data Home Medications ?Medication ?Instructions ?Recorded ?Confirmed alosetron 0.5 mg tablet 1 mg PO DAILY@89907/22/23 07/22/23 aspirin 81 mg tablet,delayed 81 mg PO DAILY@89907/22/23 07/22/23 release cholecalciferol (vitamin D3) 50 50 mcg PO DAILY@89907/22/23 07/22/23 mcg (2,000 unit) capsule escitalopram oxalate 20 mg tablet 20 mg PO DAILY@89907/22/23 07/22/23 ferrous sulfate 325 mg (65 mg 325 mg PO DAILY@89907/22/23 07/22/23 iron) tablet (Feosol) losartan 25 mg tablet 25 mg PO DAILY@89907/22/23 07/22/23 metoclopramide HCl 5 mg tablet 5 mg PO TIDAC 07/22/23 07/22/23 (Reglan) metoprolol succinate 50 mg 50 mg PO DAILY@89907/22/23 07/22/23 tablet,extended release 24 hr oxycodone 5 mg tablet 5 mg PO BID PRN pain 07/22/23 07/22/23 pantoprazole 40 mg tablet,delayed 40 mg PO DAILY@0630 07/22/23 07/22/23 release solifenacin 10 mg tablet 10 mg PO DAILY@0900 07/22/23 07/22/23 tiotropium bromide 18 mcg capsule 1 cap inhalation DAILY@0900 copd 07/22/23 07/22/23 with inhalation device (Spiriva with HandiHaler) Previous Rx's ?Medication ?Instructions ?Recorded ibuprofen 600 mg tablet 600 mg PO Q8H PRN pain 30 days #90 09/27/21 tabs cyclobenzaprine 5 mg tablet 5 mg PO TID PRN muscle spasm 30 06/20/22 days #90 tabs mirtazapine 30 mg tablet 30 mg PO BEDTIME 90 days #90 tabs 11/11/22 albuterol sulfate 90 mcg/actuation 1 puff PO Q6H PRN shortness of 03/20/23 aerosol inhaler (Ventolin HFA) breath or wheezing 30 days #8.5 grams simvastatin 40 mg tablet 40 mg PO BEDTIME #90 tabs 04/24/23 hydroxyzine HCl 50 mg tablet 50 mg PO BEDTIME #90 tabs 05/21/23 sucralfate 1 gram tablet (Carafate) 4 g (4 x 1 gram) PO QNOON #120 tabs 06/10/23 lorazepam 1 mg tablet 1 mg PO BID PRN anxiety 28 days 07/13/23 #56 tabs doxycycline hyclate 100 mg tablet 100 mg PO BID #14 tabs 07/24/23 hydrocortisone 2.5 % topical cream 1 appl topical BID PRN itching #30 07/24/23 grams oxycodone 5 mg tablet 5 mg PO .1-2 times daily PRN pain 07/24/23 10 days #20 tabs prednisone 10 mg tablet See Rx Instructions .Route 07/24/23 .COMPLEX #45 tabs Allergies Allergy/AdvReac Type Severity Reaction Status Date / Time No Known Allergies Allergy Unknown unknown Verified 07/25/23 08:20 [NO KNOWN ALLERGIES] Review of Systems 2 Review of Systems: Constitutional: No fever, chills, fatigue, night sweats, weight changes ENT/Mouth: No ear pain, hearing loss, nasal congestion, sinus pain, rhinorrhea, sore throat Eyes: No eye pain, swelling, redness, vision changes, discharge Cardio: Nopalpitations, SAMUELS, orthopnea, peripheral edema, +chest pain Pulm: No cough, sputum, wheezing, dyspnea, hemoptysis, +shortness of breath GI: No nausea, vomiting, hematemesis, abdominal pain, diarrhea, constipation, hematochezia, melena : No irregular bleeding, dysuria, frequency, urgency, hesitancy, hematuria, flank pain, urinary flow changes, urinary incontinence or retention MSK: No back pain, neck pain, joint pain, myalgias Skin: No lesions, rashes Neuro: No weakness, numbness, paresthesias, LOC, dizziness, headache Psych: No anxiety/panic, depression, SI/HI, AH/VH All other systems reviewed and are negative. [facility] Past Medical History Attestation statement: The following information was validated with the patient. Source: old records reviewed and nursing notes reviewed Medical History Rectal prolapse Bronchitis Nicotine dependence, cigarettes, uncomplicated Nonrheumatic mitral (valve) insufficiency Pulmonary nodule History of hepatitis C Osteopenia (~2011) COPD (chronic obstructive pulmonary disease) IV drug user Endocarditis of mitral valve (~11/2017) Mitral valve prolapse Mitral regurgitation Early satiety Paresthesia of left leg Allergic rhinitis Facet arthritis of lumbar region Cervical spondylosis Vitamin D deficiency Pure hypercholesterolemia Benign essential hypertension Depression GERD (gastroesophageal reflux disease) Anxiety Surgical History History of liver biopsy (~2009) History of partial colectomy (~2014) History of hysteroscopy (~2010) History of colonoscopy (~2017) Family History Family History Father Internal bleeding Mother Medical history unknown Social History Social History Household Members: None Housing: House Housing Other:: lives alone with her cat Malena Do you presently have visiting nurse or other home services: No Alcohol intake: current Alcohol intake frequency: former alcohol drinker Patient Tobacco Use Status: Current everyday Tobacco user Tobacco use type: Cigarette Cigarette Packs Per Day: 0.5 Cigarettes Per Day: 10 Years Smoked: 45 years (onset 15, 1/2-3/4ppd x 44yrs, 28pyh) e-Cigarette/Vaping Use: Never Used Second Hand Smoke Exposure: Yes Substance Use Type: Marijuana Advance Directives: Yes Advance Directives on File: Yes Advance Directives Date on File: 12/18/21 service: No Current occupational status: unemployed Sexual orientation: Straight/Heterosexual Gender identity: Female Cognitive needs: No Hearing needs: No Vision needs: Yes Physical Exam 2 Vital Signs: Vital Signs: Last Vital Signs Temp 98 F 07/25/23 08:17 Pulse 82 07/25/23 11:34 Resp 22 H 07/25/23 11:34 BP 134/87 07/25/23 08:17 Pulse Ox 90 L 07/25/23 11:34 O2 Del Method Nasal Cannula 07/25/23 11:34 O2 Flow Rate 2 07/25/23 11:34 BMI result Body Mass Index 24.1 Patient tachypneic, vitals otherwise WNL. Satting 97% on room air Const: Other: Tearful. In mild respiratory distress General: cooperative, healthy appearing and comfortable O rientation/consciousness: patient oriented x3 Limitations: no limitations HEENT: Head: Yes normal to inspection, Yes No palpable skull fracture present, Yes normocephalic and Yes atraumatic Eyes: General: appearance normal, both eyes and all related structures C onjunctivae: conjunctivae normal Sclerae: sclerae normal Pupils: Equal, round and reactive pupils present Neck: Neck: Yes normal visual inspection, Yes full ROM, Yes no lymphadenopathy and Yes no JVD Chest: Other: Barrel chest Resp: Other: Mild respiratory distress. Tachypneic. Diminished breath sounds bilaterally. Diffuse expiratory wheezes. Effort & Inspection: able to speak in complete sentences Cardio: Jugular venous distension: no JVD Rate: regular rate Rhythm: r egular rhythm Skin: General skin exam: no rashes or lesions noted Neuro: General: patient oriented x3 Cranial nerves: Yes Equal, round and reactive pupils present Course Course Course Narrative: 0475-- On chart review, patient admitted x2 days for acute COPD exacerbation secondary to pneumonia, acute hyponatremia and acute EKG changes. She was discharged yesterday around 1:00 p.m.. She states that she picked up her prescriptions on discharge which include ceftriaxone, doxycycline, prednisone. She has not taken any of these medications since being discharged yesterday. 1100-- CBC showing slight leukocytosis to 11.2, likely secondary to recent steroid administration. Chemistry showing hyponatremia to 122, markedly decreased when compared to labs obtained on 07/22/2023. IV fluids ordered. Potassium 3.2 > potassium supplementation ordered. Magnesium 1.5 > Mag sulfate ordered for repletion and for breathing. Renal function WNL. Troponin pending. EKG showing sinus rhythm with occasional PVCs at a rate of 71 beats per minute, QT 436, QTC 473, no acute ischemic changes or ST elevations. This was compared with the EKG obtained on 07/23/2023 without significant change noted. Patient has tested negative for COVID, flu, RSV. Chest x-ray showing redemonstration of right perihilar opacification consistent with pneumonia along with air trapping secondary to COPD. > 1 dose IV ceftriaxone and doxy administered to treat pneumonia. No concern for sepsis at this time. > patient received albuterol treatment and IV solumedrol. She continues to endorse difficulty breathing after treatment. tripoding. increased effort of breathing and mild respiratory distress noted. Patient placed on 2 L nasal cannula. will reach out to hospitalist for admission. 1118-- lactic wnl at 1.6. trop elevated to 6.4 > will repeat for delta. 1217-- Discussed case with hospitalist, Dr. Carl, who agrees to admit patient for COPD exacerbation secondary to pneumonia, hyponatremia, and hypokalemia. Dr. Carl to place admission orders. Medications Administered Generic Name Dose Route Start Last Admin Trade Name Freq PRN Reason Stop Dose Admin Potassium Chloride 10 meq in 100 mls @ 100 mls/hr 07/25/23 10:45 07/25/23 11:27 Potassium Chloride/H20 IV 07/25/23 14:44 100 mls/hr Q1H MANUEL Administration Discontinued Medications Generic Name Dose Route Start Last Admin Trade Name Freq PRN Reason Stop Dose Admin Albuterol Sulfate 5 mg/ 0 mg 07/25/23 08:32 07/25/23 08:36 Albuterol/Ipratropium 3 ml INHALE 07/25/23 08:33 1 each ONCE ONE Administration Doxycycline Monohydrate 100 mg 07/25/23 08:33 07/25/23 08:57 Doxycycline Monohydrate 100 Mg Capsule PO 07/25/23 08:34 100 mg ONCE ONE Administration Ceftriaxone Sodium 1 gm/ 50 mls @ 100 mls/hr 07/25/23 08:33 07/25/23 09:43 Sodium Chloride IV 07/25/23 09:02 Infused ONCE ONE Infusion Magnesium Sulfate 2 gm in 50 mls @ 25 mls/hr 07/25/23 09:58 07/25/23 11:27 Magnesium Sulfate/H2o IV 07/25/23 11:57 Infused ONCE ONE Infusion Sodium Chloride 1,000 mls @ 999 mls/hr 07/25/23 10:00 07/25/23 11:00 Ns IV 07/25/23 11:00 999 mls/hr .Q1H1M MANUEL Administration Methylprednisolone Sodium Succinate 125 mg 07/25/23 08:25 07/25/23 09:09 Methylprednisolone Sod Succ 125 Mg/2 Ml Vial IVPUSH 07/25/23 08:26 125 mg ONCE ONE Administration Ondansetron HCl 4 mg 07/25/23 10:15 07/25/23 11:27 Ondansetron Hcl 4 Mg/2 Ml Vial IVPUSH 07/25/23 10:16 4 mg ONCE ONE Administration Medical Decision Making Medical Decision Making MDM Narrative: 62-year-old female with pmhx significant for IVDA, endocarditis, COPD, current tobacco smoker, hyponatremia, hypertension, HDL, anemia, GERD, IBS, gastroparesis, anxiety, depression presents to the ED today via EMS for evaluation of shortness of breath that began upon waking this morning. Patient tearful on exam. Visibly anxious. In mild respiratory distress. On exam, diminished breath sounds bilaterally. There are diffuse expiratory wheezes. Increased effort of breathing. Tripoding. Patient tachypneic. Satting around 90-91% on room air. RRR. No JVD or peripheral edema. Differential diagnosis includes COPD exacerbation, pneumonia, viral syndrome, ACS, arrhythmia, anemia, electrolyte abnormality. Lower suspicion for PE, pleural effusion, ARDS. Plan for labs, RT breathing treatment, viral swabs, CXR, EKG, IV abx, IV solumedrol, and re-evaluation. Differential Diagnosis Differential Diagnoses: The differential diagnosis associated with the presentation includes As above Admission/Observation Consideration of admission/observation: Escalation of care including admission/observation considered Patient with acute COPD exacerbation, pneumonia, hypokalemia, hyponatremia, and hypomagnesemia will be admitted to medicine. Consult Healthcare Provider Management of the patient was discussed with: Hospitalist (Dr. Carl) Lab Data MDM Lab Attestation statement: I reviewed the patient's lab results. As above 07/25/23 09:40 07/25/23 09:40 Labs: Lab Results 07/25/23 07/25/23 Range/Units 09:40 10:57 WBC 11.2 H (4.8-10.8) X10*3/uL RBC 4.81 D (4.20-5.50) X10*6/uL Hgb 13.4 D (12.0-16.0) g/dl Hct 38.6 D (37.0-47.0) % MCV 80.2 (80.0-98.0) fL MCH 27.9 (27.0-33.0) pg MCHC 34.7 (31.0-35.0) g/dl RDW 14.0 (11.0-16.0) % Plt Count 215 D (160-400) X10*3/uL MPV 8.8 L (9.4-12.3) fL Immature Gran % (Auto) Cancelled Neut % (Auto) Cancelled Lymph % (Auto) Cancelled Cook % (Auto) Cancelled Eos % (Auto) Cancelled Baso % (Auto) Cancelled Lymph # (Auto) Cancelled Cook # (Auto) Cancelled Eos # (Auto) Cancelled Baso # (Auto) Cancelled Abs Immat Gran (auto) Cancelled Absolute Neuts (auto) Cancelled Absolute Nucleated RBC 0.000 (0.0-0.012) X10*3/uL Nucleated RBC % (auto) 0.0 (0.0-0.2) /100WBC Neutrophils % (Manual) 65 (45-73) % Band Neutrophils % 2 L (3-5) % Lymphocytes % (Manual) 24 (20-40) % Monocytes % (Manual) 9 (2-11) % Abs Neuts (Manual) 7.5 (2.0-8.3) X10*3/uL Lymphocytes # (Manual) 2.7 (1.2-4.9) X10*3/uL Monocytes # (Manual) 1.0 (0.1-1.2) X10*3/uL Platelet Estimate NORMAL (NORMAL) Plt Morphology Comment NOTED RBC Morphology NOTED Ovalocytes 1+ (5-14) /OIF Acanthocytes (Spur) 1+ (0-2) /OIF Sodium 122 L (135-145) mmol/L Potassium 3.2 L (3.3-5.1) mmol/L Chloride 87 L (96-108) mmol/L Carbon Dioxide 23 (22-29) mmol/L Anion Gap 15 (12-20) BUN 9 (9-16) mg/dL Creatinine 0.62 (0.5-1.4) mg/dL Estim Creat Clear Calc 83.6 Estimated GFR > 60 Random Glucose 86 (60-115) mg/dL Lactic Acid 1.6 (0.5-2.0) mmol/L Calcium 9.1 D (8.4-10.2) mg/dL Magnesium 1.5 L (1.6-2.6) mg/dL Total Bilirubin 0.6 (0.0-1.0) mg/dL AST 26 (5-31) U/L ALT 13 (0-31) U/L Alkaline Phosphatase 48 (39-117) U/L Troponin I High Sens 6.4 D (<3.5-17.0) ng/L Total Protein 6.8 (6.5-8.0) g/dL Albumin 4.1 (3.5-5.0) g/dL Influenza Type A (PCR) NEGATIVE (Negative) Influenza Type B (PCR) NEGATIVE (Negative) RSV RNA Qual (PCR) NEGATIVE (Negative) SARS-CoV-2 RNA (RT-PCR) NEGATIVE (Negative) Independent Interpretation I performed an independent interpretation of an: EKG and Plain X-Ray Interpretation: EKG showing sinus rhythm with occasional PVCs. LVH. Rate of 71 beats per minute. QT 436. QTC 473. Today's EKG compared to EKG obtained on 07/23/2023 without significant change. Chest x-ray showing right perihilar infiltrate, agree with radiologist's interpretation. Radiology Impression Discussion of test interpretation with radiology: I have reviewed the radiologist's reading. Radiologist Impression: EXAMINATION: XR chest 2V CLINICAL INFORMATION: Reason for Exam sob COMPARISON: 07/22/2023 TECHNIQUE: XR chest 2V, 2 Views Lungs and Rehana: Redemonstration of right parahilar opacification possibly a patchy infiltrate versus lung nodule. Lungs are hyperinflated suggesting air trapping disease COPD. Pleura: Normal. Costophrenic angles are sharp. No pneumothorax. Heart: The heart is normal in size. Mediastinum: The mediastinum is within normal limits.. Bones: Skeletal structures included are normal for patient's age. XR/XR chest 2V IMPRESSION: 1. Redemonstration of right parahilar opacification possibly a patchy infiltrate versus lung nodule. 2. Hyperinflated lungs suggesting air trapping disease COPD. 3. No pleural effusion. 4. ATTENTION TO FOLLOW-UP chest x-ray or CT scan in one month recommended. Independent Historian Clinical information obtained from an independent historian. History obtained from or confirmed by: EMS External Record Review External record reviewed: Inpatient record, Office record, Outpatient record, Prior outpatient labs, Prior outpatient radiology, Primary care record and Outside ED record Prescription Management I considered prescription management with: Antibiotic (Ceftriaxone, doxy) and Other (Prednisone) Chronic Conditions Patient?s care impacted by: Other (copd) Social Determinants Patient?s care significantly limited by Social Determinants of Health including: Other Social Determinant of Health Critical Care Time Critical Care Time Critical Care Time: Yes Total Critical Care Time: 120 Attestation: Critical care time in the amount of 120 minutes has been provided to the patient in terms of direct patient care, frequent reevaluation, consultation with hostpiatlist, review and interpretation of medical data and results, and management of potentially life-threatening conditions. This is all outside of any medical procedures. Discharge Plan Discharge Clinical Impression: Acute exacerbation of chronic obstructive pulmonary disease (COPD), Acute hyponatremia, Acute hypokalemia, Hypomagnesemia, PVC (premature ventricular contraction) Pneumonia Qualifiers: Pneumonia type: due to unspecified organism Laterality: right Lung location: u nspecified part of lung Qualified Code(s): J18.9 - Pneumonia, unspecified organism Patient Disposition: Admitted As Inpatient
--- NOTE | 2023-07-25 08:34 | ECG_ITS ---
Test Reason : SOB Blood Pressure : / mmHG Vent. Rate : 071 BPM Atrial Rate : 071 BPM P-R Int : 162 ms QRS Dur : 102 ms QT Int : 436 ms P-R-T Axes : 059 -28 059 degrees QTc Int : 473 ms Sinus rhythm with occasional Premature ventricular complexes Minimal voltage criteria for LVH, may be normal variant ( Eran product ) Borderline ECG When compared with ECG of 23-JUL-2023 07:50, No significant change was found Referred By: Erma Heredia Electronically Signed By:CHRISTELLE HESS
[2023-07-25] MEDS: Albuterol Sulfate 5 MG, Albuterol/Iprat 2.5/0.5MG 3 ML 3 ML INHALE (08:36)
[2023-07-25] MEDS: Doxycycline Monohydrate 100 MG CAPSULE PO (08:57)
[2023-07-25] MEDS: cefTRIAXone sodium 1 GM in 0.9 % Sodium Chloride 50 ML IV (09:09)
[2023-07-25] MEDS: methylPREDNISolone Sod Succ 125 MG/2 ML VIAL IVPUSH (09:09)
[2023-07-25 10:03] LABS: Hematocrit 38.6 % (37.0-47.0); Hemoglobin 13.4 g/dl (12.0-16.0); Mean Corpuscular HGB Conc 34.7 g/dl (31.0-35.0); Mean Corpuscular Hemoglobin 27.9 pg (27.0-33.0); Mean Corpuscular Volume 80.2 fL (80.0-98.0); Mean Platelet Volume 8.8 fL (9.4-12.3); Platelet Count 215 X10*3/uL (160-400); Red Blood Count 4.81 X10*6/uL (4.20-5.50)
[2023-07-25 10:06] LABS: WBC ABN SCTR FOR CBC 1; White Blood Count 11.2 X10*3/uL (4.8-10.8)
[2023-07-25 10:20] LABS: Band Neutrophils Percent 2 % (3-5); Lymphocytes Absolute Manual 2.7 X10*3/uL (1.2-4.9); Lymphocytes Percent Manual 24 % (20-40); Monocytes Percent Manual 9 % (2-11); Neutrophils Absolute Manual 7.5 X10*3/uL (2.0-8.3); Neutrophils Percent Manual 65 % (45-73)
[2023-07-25 10:22] LABS: Acanthocytes 1+ (0-2) /OIF; Ovalocytes 1+ (5-14) /OIF; Platelet Estimate NORMAL (NORMAL); Platelet Morphology Comment NOTED; RBC Morphology NOTED
[2023-07-25 10:35] LABS: Alanine Aminotransferase 13 U/L (0-31); Albumin Level 4.1 g/dL (3.5-5.0); Alkaline Phosphatase 48 U/L (39-117); Anion Gap 15 (12-20); Aspartate Amino Transferase 26 U/L (5-31); Bilirubin Total 0.6 mg/dL (0.0-1.0); Blood Urea Nitrogen 9 mg/dL (9-16); Calcium 9.1 mg/dL (8.4-10.2); Carbon Dioxide 23 mmol/L (22-29); Chloride 87 mmol/L (96-108); Creatinine Clr Calc Pharmacy 83.6; Estimated Glomerular Filt Rate > 60; Glucose Random 86 mg/dL (60-115); Magnesium 1.5 mg/dL (1.6-2.6); Potassium 3.2 mmol/L (3.3-5.1); Sodium 122 mmol/L (135-145); Total Protein 6.8 g/dL (6.5-8.0)
[2023-07-25 10:53] LABS: Influenza A PCR NEGATIVE (Negative); Influenza B PCR NEGATIVE (Negative); Resp Syncy Virus RNA Qual PCR NEGATIVE (Negative); SARS COV2 PCR INHOUSE NEGATIVE (Negative)
[2023-07-25] MEDS: Magnesium Sulfate/H2O 2 GM/50 ML PIGGYBACK IV (10:59)
[2023-07-25] MEDS: 0.9 % Sodium Chloride 1,000 ML 999 ML IV (11:00)
[2023-07-25 11:14] LABS: Troponin-I High Sensitivity 6.4 ng/L (<3.5-17.0)
[2023-07-25 11:17] LABS: Lactic Acid 1.6 mmol/L (0.5-2.0)
[2023-07-25] MEDS: ondansetron HCL 4 MG/2 ML VIAL IVPUSH (11:27)
[2023-07-25] MEDS: Potassium Chloride/H20 10 MEQ/100 ML PIGGYBACK 100 MEQ IV ×3 (11:27→17:42)
--- NOTE | 2023-07-25 13:21 | PHA.MEDREC ---
Pharmacy Consult ? Medication Reconciliation Pharmacy has completed the medication reconciliation Pt recently discharged 07/24/23. Utilized discharge packet.
[2023-07-25] MEDS: 0.9 % Sodium Chloride 1,000 ML 100 ML IVCONT ×2 (13:45→21:36)
[2023-07-25 14:46] LABS: Troponin-I High Sensitivity 4.6 ng/L (<3.5-17.0)
--- NOTE | 2023-07-25 15:32 | MHC.EDTECH ---
Pt given lias bill and ice per request and cleared by rn, pt needs nothing else at the moment
--- NOTE | 2023-07-25 17:34 | PC.NURSE ---
Pt arrived to unit from ED at approximately 1715. Pt alert and oriented x4 able to answer questions appropriately. Pt on 2L NC saturating 99%, LS dim in bases and expiratory wheezing noted. Pt states she feels better then when she first arrived to [facility] [place] VSS, all needs met at this time. All safety measures in place.
[2023-07-25] MEDS: Potassium Chloride/H20 10 MEQ/100 ML PIGGYBACK 200 MEQ IV (19:32)
[2023-07-25] MEDS: hydrOXYzine HCL 50 MG TABLET PO (22:55)
[2023-07-25] MEDS: Mirtazapine 30 MG TABLET PO (22:55)
[2023-07-25] MEDS: Atorvastatin Calcium 20 MG TABLET PO (22:55)
[2023-07-25] MEDS: Doxycycline Hyclate 100 MG in 0.9 % Sodium Chloride 250 ML 166.67 MG IV (22:57)
--- NOTE | 2023-07-26 | ECG_ITS ---
Test Reason : chest pain Blood Pressure : / mmHG Vent. Rate : 064 BPM Atrial Rate : 064 BPM P-R Int : 180 ms QRS Dur : 096 ms QT Int : 452 ms P-R-T Axes : 080 -16 059 degrees QTc Int : 466 ms Sinus rhythm with Premature supraventricular complexes and with occasional Premature ventricular complexes Low voltage QRS Nonspecific ST abnormality Abnormal ECG When compared with ECG of 25-JUL-2023 08:53, Premature supraventricular complexes are now Present Referred By: Sincere Carl Electronically Signed By:PARMJIT HARTLEY MD
[2023-07-26 03:30] VITALS: BP 139/63; PULSE 65; RESP 18; TEMP 36.4; O2SAT 96
[2023-07-26] MEDS: Acetaminophen 325 MG TABLET 650 MG PO ×2 (04:51→17:08)
[2023-07-26] MEDS: 0.9 % Sodium Chloride 1,000 ML 100 ML IVCONT (05:10)
[2023-07-26 07:32] LABS: Alanine Aminotransferase 14 U/L (0-31); Albumin Level 2.9 g/dL (3.5-5.0); Alkaline Phosphatase 55 U/L (39-117); Anion Gap 7 (12-20); Aspartate Amino Transferase 27 U/L (5-31); Bilirubin Total 0.3 mg/dL (0.0-1.0); Blood Urea Nitrogen 9 mg/dL (9-16); Carbon Dioxide 23 mmol/L (22-29); Chloride 96 mmol/L (96-108); Creatinine Clr Calc Pharmacy 78.5; Estimated Glomerular Filt Rate > 60; Glucose Random 102 mg/dL (60-115); Sodium 122 mmol/L (135-145); Total Protein 4.9 g/dL (6.5-8.0)
[2023-07-26 07:35] VITALS: BP 154/74; PULSE 67; RESP 15; TEMP 37; O2SAT 92
[2023-07-26 07:39] LABS: Calcium 7.7 mg/dL (8.4-10.2); Potassium 3.9 mmol/L (3.3-5.1)
[2023-07-26] MEDS: Magnesium Sulfate/H2O 2 GM/50 ML PIGGYBACK IV (07:43)
[2023-07-26] MEDS: 0.9 % Sodium Chloride Flush 3 ML SYRINGE IVFLUSH ×3 (08:00→20:48)
--- NOTE | 2023-07-26 09:10 | MHC.CM.PN ---
PATIENT IS INDEPENDENT WITH ADLS. WAS RECENT DC WITH [facility] IN PLACE. REFERRAL PLACED TO AGENCY TO FOLLOW. HCP ON FILE AND VERIFIED. NO LONGER ON O2 AT THIS TIME. PATIENT ARRIVED VIA EMS AND WILL NEED ASSIST WITH TRANSPORT HOME. IMM 07/25 IN CHART
[2023-07-26] MEDS: cefTRIAXone sodium 1 GM in 0.9 % Sodium Chloride 50 ML IV (11:34)
[2023-07-26] MEDS: ondansetron HCL 4 MG/2 ML VIAL IVPUSH (11:34)
[2023-07-26] MEDS: Doxycycline Hyclate 100 MG in 0.9 % Sodium Chloride 250 ML 166.67 MG IV (12:22)
[2023-07-26] MEDS: Prochlorperazine Edisylate 10 MG/2 ML VIAL IVPUSH (13:40)
[2023-07-26 13:44] VITALS: BP 134/72; PULSE 69; RESP 20; O2SAT 96
--- NOTE | 2023-07-26 13:49 | P.HPHOSP_ITS ---
History of Present Illness Date of Service: 07/25/23 Chief Complaint: Shortness of breath 62 yo female with PMH of bronchitis, IVDA, COPD, HTN, HLD, anemia, GERD, IBS, gastroparesis, anxiety, depression, notes she started to feel sick with increasing cough, difficulty breathing, sputum production and chills yesterday with vomiting. She feels weak today and still feels cough and wheezing. She states her nebs are not helping. She denies travel, sick contacts. Has had similar presentations in the past; admitted 07/21 - 07/24/23 for same. States she went home and was feeling extremely anxious; smoked more than usual became very wheezy and shortness of breath and presented to the ER. Presented back to the emergency room where ER workup essentially unchanged. Review of Systems 2 Review of Systems: Admits to vague chest pain Admits shortness of breath with minimal movement Admits nausea/vomiting denies diarrhea Denies fever chills PMFSH Medical History Rectal prolapse Bronchitis Nicotine dependence, cigarettes, uncomplicated Nonrheumatic mitral (valve) insufficiency Pulmonary nodule History of hepatitis C Osteopenia (~2011) COPD (chronic obstructive pulmonary disease) IV drug user Endocarditis of mitral valve (~11/2017) Mitral valve prolapse Mitral regurgitation Early satiety Paresthesia of left leg Allergic rhinitis Facet arthritis of lumbar region Cervical spondylosis Vitamin D deficiency Pure hypercholesterolemia Benign essential hypertension Depression GERD (gastroesophageal reflux disease) Anxiety Family History Father Internal bleeding Mother Medical history unknown Surgical History History of liver biopsy (~2009) History of partial colectomy (~2014) History of hysteroscopy (~2010) History of colonoscopy (~2017) Social History Household Members: None Housing: House Housing Other:: lives alone with her cat Malena Do you presently have visiting nurse or other home services: Yes Alcohol intake: current Alcohol intake frequency: former alcohol drinker Patient Tobacco Use Status: Current everyday Tobacco user Tobacco use type: Cigarette Cigarette Packs Per Day: 0.5 Cigarettes Per Day: 10 Years Smoked: 45 years (onset 15, 1/2-3/4ppd x 44yrs, 28pyh) Smoked in Last 30 Days: Yes e-Cigarette/Vaping Use: Never Used Patient Interested in Nicotine Replacement: Yes Second Hand Smoke Exposure: Yes Substance Use Type: Marijuana Currently Displaying Signs/Symptoms of Drug Intoxication Withdrawal: No Any prior treatment program specific to substance use: No Do you feel safe in your current relationship?: No Cultural Healthcare Practices: mandaeism Advance Directives: Yes Advance Directives on File: Yes Advance Directives Date on File: 12/18/21 Recently lost weight without trying: No Nutrition Risks: No Nutritional Risk Patient : No : No Poor oral hygiene: Yes (upper and lower dentures) service: No Current occupational status: unemployed Sexual orientation: Straight/Heterosexual Gender identity: Female Cognitive needs: No Hearing needs: No Vision needs: Yes Meds Allergies Allergy/AdvReac Type Severity Reaction Status Date / Time No Known Allergies Allergy Unknown unknown Verified 07/25/23 08:20 [NO KNOWN ALLERGIES] Active Medications: Current Medications Acetaminophen (Acetaminophen 325 Mg Tablet) 650 mg PO Q6H PRN PRN Reason: Pain, Mild (Pain Scale 1-3) Last Admin: 07/26/23 04:51 Dose: 650 mg Atorvastatin Calcium (Atorvastatin Calcium 20 Mg Tablet) 20 mg PO BEDTIME [facility] Last Admin: 07/25/23 22:55 Dose: 20 mg Hydroxyzine HCl (Hydroxyzine Hcl 50 Mg Tablet) 50 mg PO BEDTIME [facility] Last Admin: 07/25/23 22:55 Dose: 50 mg Sodium Chloride (Ns) 1,000 mls @ 100 mls/hr IVCONT .Q10H [facility] Last Admin: 07/26/23 05:10 Dose: 100 mls/hr Ceftriaxone Sodium 1 gm/ (Sodium Chloride) 50 mls @ 100 mls/hr IV Q24H [facility] Last Infusion: 07/26/23 12:04 Dose: Infused Doxycycline Hyclate 100 mg/ (Sodium Chloride) 250 mls @ 166.67 mls/hr IV Q12H [facility] Last Admin: 07/26/23 12:22 Dose: 166.67 mls/hr Mirtazapine (Mirtazapine 30 Mg Tablet) 30 mg PO BEDTIME [facility] Last Admin: 07/25/23 22:55 Dose: 30 mg Ondansetron HCl (Ondansetron Hcl 4 Mg/2 Ml Vial) 4 mg IVPUSH Q8H PRN PRN Reason: Nausea and Vomiting Last Admin: 07/26/23 11:34 Dose: 4 mg Sodium Chloride (0.9 % Sodium Chloride Flush 3 Ml Syringe) 3 ml IVFLUSH QSHIFT [facility] Last Admin: 07/26/23 08:00 Dose: 3 ml Home Medications ?Medication ?Instructions ?Recorded ?Confirmed ?Last Taken ?Type alosetron 0.5 mg tablet 1 mg PO DAILY@0907/22/23 07/25/23 07/22/23 History aspirin 81 mg tablet,delayed 81 mg PO DAILY@0907/22/23 07/25/23 07/22/23 History release cholecalciferol (vitamin D3) 50 50 mcg PO DAILY@89907/22/23 07/25/23 07/22/23 History mcg (2,000 unit) capsule escitalopram oxalate 20 mg tablet 20 mg PO DAILY@0907/22/23 07/25/23 07/22/23 History ferrous sulfate 325 mg (65 mg 325 mg PO DAILY@0907/22/23 07/25/23 07/22/23 History iron) tablet (Feosol) losartan 25 mg tablet 25 mg PO DAILY@0907/22/23 07/25/23 07/22/23 History metoclopramide HCl 5 mg tablet 5 mg PO TIDAC 07/22/23 07/25/23 Unknown History (Reglan) metoprolol succinate 50 mg 50 mg PO DAILY@0907/22/23 07/25/23 07/22/23 History tablet,extended release 24 hr oxycodone 5 mg tablet 5 mg PO BID PRN pain 07/22/23 07/25/23 Unknown History pantoprazole 40 mg tablet,delayed 40 mg PO DAILY@0630 07/22/23 07/25/23 07/22/23 History release solifenacin 10 mg tablet 10 mg PO DAILY@0907/22/23 07/25/23 07/22/23 History tiotropium bromide 18 mcg capsule 1 cap inhalation DAILY@0900 copd 07/22/23 07/25/23 07/22/23 History with inhalation device (Spiriva with HandiHaler) sucralfate 1 gram tablet (Carafate) 4 g PO DAILY@1200 07/25/23 07/25/23 Unknown History Physical Exam 2 Vital Signs and Narrative: Vital Signs: Last Vital Signs Temp 98.6 F 07/26/23 07:35 Pulse 69 07/26/23 13:44 Resp 20 07/26/23 13:44 BP 134/72 07/26/23 13:44 Pulse Ox 96 07/26/23 13:44 O2 Del Method Room Air 07/26/23 13:44 O2 Flow Rate 2 07/25/23 17:10 BMI result Body Mass Index 23.8 Const: Other: Awake alert somewhat weepy but no acute distress Resp: Other: Diminished throughout with scattered expiratory wheezes Cardio: Other: No S4; positive S1-S2; no S3 murmurs rubs or gallops GI: Other: Soft nontender nondistended normoactive bowel sounds Extrem: Other: No edema bilaterally Results Labs 07/25/23 09:40 07/26/23 06:05 Labs: Laboratory Results - last 24 hr 07/25/23 07/26/23 14:09 06:05 Hold Purple Top SEE NOTE Anion Gap 7 L Estim Creat Clear Calc 78.5 Estimated GFR > 60 Random Glucose 102 Calcium 7.7 L D Total Bilirubin 0.3 AST 27 ALT 14 Alkaline Phosphatase 55 Troponin I High Sens 4.6 Total Protein 4.9 L Albumin 2.9 L Assessment and Plan (1) Acute exacerbation of chronic obstructive pulmonary disease (COPD): Status: Acute (2) Acute hyponatremia: Status: Acute (3) Nausea & vomiting: Qualifiers: Vomiting type: unspecified Qualified Code(s): R11.2 - Nausea with vomiting, unspecified Status: Acute Plan 62 yo female with PMH of bronchitis, IVDA, COPD, HTN, HLD, anemia, GERD, IBS, gastroparesis, anxiety, depression, presents with proximally 48 hours of worsening shortness of breath and sputum production. She states was not accompanied by fever and chills. Once again found to be hyponatremic 1. Acute exacerbation of COPDsecondary to pneumonia -ceftriaxone/doxycycline (1) -pulse dose methylprednisolone 60 mg IV q.6 hours -DuoNebs q.4 hours while awake -titrate O2 to maintain sats greater than equal to 90% 2. Acute hyponatremia -volume repletion with normal saline solution -follow renals/divalents/urine sodium -renal consult 3.Chest Pressure -initial EKG unchanged from last admission -repeat EKG/troponin Full code Mellissa Patient will require at least 2 midnights going forward for IV antibiotics to treat pneumonia that has failed outpatient therapies. She also will need specialty consult for hyponatremia. This can not be achieved a lesser acute setting Quality Stroke Does the patient have a stroke diagnosis?: No VTE Prior VTE?: No VTE Risk Level:: Medical - moderate - high VTE Device Contraindication: N/A - Device Ordered VTE Drug Contraindication: Treatment Not Indicated
--- NOTE | 2023-07-26 14:03 | PC.NURSE ---
Addendum entered by Cydney Valerio RN 07/26/23 14:59: Pt given 1x dose of IVP Ativan at 1410 for anxiety with good effect. Original Note: Pt c/o funny feeling in heart , pt continues to have nausea and vomiting. MD rhodes made aware, new orders entered. EKG STAT, Trops, salt tabs, and IVF d/c. Pt VSS at this time, see flow sheet for details. Reglan IVP given, results pending.
[2023-07-26] MEDS: LORazepam 2 MG/ML VIAL 1 MG IVPUSH (14:10)
[2023-07-26] MEDS: Sodium Chloride Tab 1 GM TABLET 2 GM PO ×2 (14:11→20:47)
--- NOTE | 2023-07-26 14:24 | P.PNIM_ITS ---
Subjective Subjective Date of Service: 07/26/23 Interval History: Patient extremely anxious and vomiting this afternoon. Complained of some vague chest pain. EKG without acute changes. Review of Systems Admits to vague chest pain Admits shortness of breath with minimal movement Admits nausea/vomiting denies diarrhea Denies fever chills Physical Exam 2 Vital Signs: Vital Signs: Last Vital Signs Temp 98.6 F 07/26/23 07:35 Pulse 69 07/26/23 13:44 Resp 20 07/26/23 13:44 BP 134/72 07/26/23 13:44 Pulse Ox 96 07/26/23 13:44 O2 Del Method Room Air 07/26/23 13:44 O2 Flow Rate 2 07/25/23 17:10 BMI result Body Mass Index 23.8 Const: Other: Awake alert somewhat weepy but no acute distress Resp: Other: Diminished throughout with scattered expiratory wheezes Cardio: Other: No S4; positive S1-S2; no S3 murmurs rubs or gallops GI: Other: Soft nontender nondistended normoactive bowel sounds Extrem: Other: No edema bilaterally Objective Data Active Medications Acetaminophen (Acetaminophen 325 Mg Tablet) 650 mg PO Q6H PRN PRN Reason: Pain, Mild (Pain Scale 1-3) Last Admin: 07/26/23 04:51 Dose: 650 mg Documented By: KRYSTAL Atorvastatin Calcium (Atorvastatin Calcium 20 Mg Tablet) 20 mg PO BEDTIME [facility] Last Admin: 07/25/23 22:55 Dose: 20 mg Documented By: KRYSTAL Hydroxyzine HCl (Hydroxyzine Hcl 50 Mg Tablet) 50 mg PO BEDTIME [facility] Last Admin: 07/25/23 22:55 Dose: 50 mg Documented By: KRYSTAL Ceftriaxone Sodium 1 gm/ (Sodium Chloride) 50 mls @ 100 mls/hr IV Q24H [facility] Last Infusion: 07/26/23 12:04 Dose: Infused Documented By: KARTHIK Doxycycline Hyclate 100 mg/ (Sodium Chloride) 250 mls @ 166.67 mls/hr IV Q12H [facility] Last Infusion: 07/26/23 13:57 Dose: Infused Documented By: KARTHIK Mirtazapine (Mirtazapine 30 Mg Tablet) 30 mg PO BEDTIME [facility] Last Admin: 07/25/23 22:55 Dose: 30 mg Ondansetron HCl (Ondansetron Hcl 4 Mg/2 Ml Vial) 4 mg IVPUSH Q8H PRN PRN Reason: Nausea and Vomiting Last Admin: 07/26/23 11:34 Dose: 4 mg Documented By: KARTHIK Sodium Chloride (0.9 % Sodium Chloride Flush 3 Ml Syringe) 3 ml IVFLUSH QSHIFT [facility] Last Admin: 07/26/23 08:00 Dose: 3 ml Documented By: KARTHIK Sodium Chloride (Sodium Chloride Tab 1 Gm Tablet) 2 gm PO BID [facility] Last Admin: 07/26/23 14:11 Dose: 2 gm Documented By: KARTHIK Labs 07/25/23 09:40 07/26/23 06:05 Labs: Laboratory Results - last 24 hr 07/25/23 07/26/23 14:09 06:05 Hold Purple Top SEE NOTE Anion Gap 7 L Estim Creat Clear Calc 78.5 Estimated GFR > 60 Random Glucose 102 Calcium 7.7 L D Total Bilirubin 0.3 AST 27 ALT 14 Alkaline Phosphatase 55 Troponin I High Sens 4.6 Total Protein 4.9 L Albumin 2.9 L Assessment and Plan (1) Acute exacerbation of chronic obstructive pulmonary disease (COPD): Status: Acute (2) Acute hyponatremia: Status: Acute Plan 62 yo female with PMH of bronchitis, IVDA, COPD, HTN, HLD, anemia, GERD, IBS, gastroparesis, anxiety, depression, presents with proximally 48 hours of worsening shortness of breath and sputum production. She states was not accompanied by fever and chills. Once again found to be hyponatremic 1. Acute exacerbation of COPDsecondary to pneumonia -ceftriaxone/doxycycline (2) -pulse dose methylprednisolone 60 mg IV q.6 hours -DuoNebs q.4 hours while awake -titrate O2 to maintain sats greater than equal to 90% 2. Acute hyponatremia -no IV fluids; will add sodium chloride tablets 2 g b.i.d. -follow renals/divalents/urine sodium -renal consult 3.Chest Pressure -initial EKG unchanged from last admission -repeat EKG/troponin Full code Lovenox Patient will require at least 2 midnights going forward for IV antibiotics to treat pneumonia that has failed outpatient therapies. She also will need specialty consult for hyponatremia. This can not be achieved a lesser acute setting Quality Stroke Does the patient have a stroke diagnosis?: No VTE Prior VTE?: No VTE Risk Level:: Medical - moderate - high VTE Device Contraindication: N/A - Device Ordered VTE Drug Contraindication: Treatment Not Indicated
[2023-07-26 14:38] LABS: Hematocrit 32.8 % (37.0-47.0); Hemoglobin 11.8 g/dl (12.0-16.0); Mean Corpuscular Hemoglobin 28.6 pg (27.0-33.0); Mean Corpuscular Volume 79.4 fL (80.0-98.0); Mean Platelet Volume 8.8 fL (9.4-12.3); Platelet Count 157 X10*3/uL (160-400); Red Blood Count 4.13 X10*6/uL (4.20-5.50); White Blood Count 5.5 X10*3/uL (4.8-10.8)
[2023-07-26 15:02] LABS: Alanine Aminotransferase 16 U/L (0-31); Albumin Level 3.2 g/dL (3.5-5.0); Alkaline Phosphatase 46 U/L (39-117); Anion Gap 9 (12-20); Aspartate Amino Transferase 31 U/L (5-31); Bilirubin Total 0.3 mg/dL (0.0-1.0); Blood Urea Nitrogen 7 mg/dL (9-16); Calcium 7.4 mg/dL (8.4-10.2); Carbon Dioxide 20 mmol/L (22-29); Chloride 97 mmol/L (96-108); Estimated Glomerular Filt Rate > 60; Glucose Random 99 mg/dL (60-115); Potassium 3.4 mmol/L (3.3-5.1); Sodium 123 mmol/L (135-145); Total Protein 5.2 g/dL (6.5-8.0)
[2023-07-26 15:12] LABS: Troponin-I High Sensitivity < 2.7 ng/L (<3.5-17.0)
[2023-07-26 15:30] VITALS: BP 135/99; PULSE 86; RESP 16; TEMP 37; O2SAT 94
--- NOTE | 2023-07-26 16:19 | PM.EVENT ---
Event Note Date of Service: 07/26/23 Event Note: [facility] [place] [facility] consulted for hyponatremia. Case discussed with Med Attending. Hyponatremia likely due to excess ADH. Started fluid restriction. Urine studies pending. TSH/Cortisol ordered. Started on NaCl tablets. Needs to avoid fast correction of Na. Hold PO Urea given patient is nauseous. Shall closely follow up during the hospital stay. Abbe Bauman MD
[2023-07-26 19:22] VITALS: BP 139/69; PULSE 66; RESP 16; TEMP 36.3; O2SAT 95
[2023-07-26] MEDS: hydrOXYzine HCL 50 MG TABLET PO (20:47)
[2023-07-26] MEDS: Atorvastatin Calcium 20 MG TABLET PO (20:48)
[2023-07-26] MEDS: Mirtazapine 30 MG TABLET PO (20:48)
[2023-07-27] MEDS: Doxycycline Hyclate 100 MG in 0.9 % Sodium Chloride 250 ML 166.67 MG IV ×2 (00:54→11:12)
[2023-07-27 03:02] VITALS: BP 166/96; PULSE 69; RESP 17; TEMP 36.7; O2SAT 92
[2023-07-27 06:12] LABS: Alanine Aminotransferase 20 U/L (0-31); Albumin Level 3.3 g/dL (3.5-5.0); Alkaline Phosphatase 39 U/L (39-117); Anion Gap 9 (12-20); Aspartate Amino Transferase 28 U/L (5-31); Bilirubin Total 0.5 mg/dL (0.0-1.0); Blood Urea Nitrogen 6 mg/dL (9-16); Calcium 7.9 mg/dL (8.4-10.2); Carbon Dioxide 26 mmol/L (22-29); Chloride 95 mmol/L (96-108); Creatinine Clr Calc Pharmacy 77.2; Estimated Glomerular Filt Rate > 60; Glucose Random 92 mg/dL (60-115); Potassium 4.3 mmol/L (3.3-5.1); Sodium 126 mmol/L (135-145); Total Protein 5.4 g/dL (6.5-8.0)
[2023-07-27 06:22] LABS: Cortisol Random 7.2 ug/dL
[2023-07-27 06:26] LABS: Thyroid Stimulating Hormone 4.05 uIU/mL (0.32-4.0)
[2023-07-27 07:32] VITALS: BP 142/94; PULSE 66; RESP 18; TEMP 36.1; O2SAT 93
[2023-07-27] MEDS: cefTRIAXone sodium 1 GM in 0.9 % Sodium Chloride 50 ML IV (09:08)
[2023-07-27] MEDS: Sodium Chloride Tab 1 GM TABLET 2 GM PO ×2 (09:08→21:14)
[2023-07-27] MEDS: 0.9 % Sodium Chloride Flush 3 ML SYRINGE IVFLUSH ×3 (09:14→22:03)
--- NOTE | 2023-07-27 10:43 | P.CONNP_ITS ---
History of Present Illness Reason for Consult Consult date: 07/27/23 Reason for consult: Hyponatremia Chief Complaint Chief complaint: Difficulty Breathing serious History of Present Illness Narrative: 62 yo female with PMH of bronchitis, IVDA, COPD, HTN, HLD, anemia, GERD, IBS, gastroparesis, anxiety, depression, notes she started to feel sick with increasing cough, difficulty breathing, sputum production and chills yesterday with vomiting. She feels weak today and still feels cough and wheezing Review of Systems Constitutional: Denies fever(s) and Denies weight loss Cardiovascular: Denies chest pain Respiratory: Denies cough and Denies hemoptysis Gastrointestinal: Denies abdominal pain, Denies diarrhea and Denies nausea Musculoskeletal: Denies back pain Denies focal weakness PMFSH Past Medical History Medical History Rectal prolapse Bronchitis Nicotine dependence, cigarettes, uncomplicated Nonrheumatic mitral (valve) insufficiency Pulmonary nodule History of hepatitis C Osteopenia (~2011) COPD (chronic obstructive pulmonary disease) IV drug user Endocarditis of mitral valve (~11/2017) Mitral valve prolapse Mitral regurgitation Early satiety Paresthesia of left leg Allergic rhinitis Facet arthritis of lumbar region Cervical spondylosis Vitamin D deficiency Pure hypercholesterolemia Benign essential hypertension Depression GERD (gastroesophageal reflux disease) Anxiety Family History Family History Father Internal bleeding Mother Medical history unknown Surgical History Surgical History History of liver biopsy (~2009) History of partial colectomy (~2014) History of hysteroscopy (~2010) History of colonoscopy (~2017) Social History Social History Household Members: None Housing: House Housing Other:: lives alone with her cat Malena Do you presently have visiting nurse or other home services: Yes Alcohol intake: current Alcohol intake frequency: former alcohol drinker Patient Tobacco Use Status: Current everyday Tobacco user Tobacco use type: Cigarette Cigarette Packs Per Day: 0.5 Cigarettes Per Day: 10 Years Smoked: 45 years (onset 15, 1/2-3/4ppd x 44yrs, 28pyh) Smoked in Last 30 Days: Yes e-Cigarette/Vaping Use: Never Used Patient Interested in Nicotine Replacement: Yes Second Hand Smoke Exposure: Yes Substance Use Type: Marijuana Currently Displaying Signs/Symptoms of Drug Intoxication Withdrawal: No Any prior treatment program specific to substance use: No Do you feel safe in your current relationship?: No Cultural Healthcare Practices: restorationist Advance Directives: Yes Advance Directives on File: Yes Advance Directives Date on File: 12/18/21 Recently lost weight without trying: No Nutrition Risks: No Nutritional Risk Patient : No : No Poor oral hygiene: Yes (upper and lower dentures) service: No Current occupational status: unemployed Sexual orientation: Straight/Heterosexual Gender identity: Female Cognitive needs: No Hearing needs: No Vision needs: Yes Meds Allergies Allergy/AdvReac Type Severity Reaction Status Date / Time No Known Allergies Allergy Unknown unknown Verified 07/25/23 08:20 [NO KNOWN ALLERGIES] Active Medications: Current Medications Acetaminophen (Acetaminophen 325 Mg Tablet) 650 mg PO Q6H PRN PRN Reason: Pain, Mild (Pain Scale 1-3) Last Admin: 07/26/23 17:08 Dose: 650 mg Albuterol Sulfate (Albuterol Sulfate 90 Mcg 8 Gm Inhaler) 2 puff INHALE RQ4H PRN PRN Reason: sob Aspirin (Aspirin Enteric Coated 81 Mg Tablet.Dr) 81 mg PO DAILY@0900 [facility] Atorvastatin Calcium (Atorvastatin Calcium 20 Mg Tablet) 20 mg PO BEDTIME [facility] Last Admin: 07/26/23 20:48 Dose: 20 mg Escitalopram Oxalate (Escitalopram Oxalate 20 Mg Tablet) 20 mg PO DAILY@0900 [facility] Guaifenesin/Dextromethorphan (Guaifenesin Dm 200/20/10 Ml 10 Ml Syrup) 10 ml PO TID [facility] Hydroxyzine HCl (Hydroxyzine Hcl 50 Mg Tablet) 50 mg PO BEDTIME [facility] Last Admin: 07/26/23 20:47 Dose: 50 mg Ceftriaxone Sodium 1 gm/ (Sodium Chloride) 50 mls @ 100 mls/hr IV Q24H [facility] Last Infusion: 07/27/23 09:38 Dose: Infused Doxycycline Hyclate 100 mg/ (Sodium Chloride) 250 mls @ 166.67 mls/hr IV Q12H [facility] Last Infusion: 07/27/23 02:25 Dose: Infused Lorazepam (Lorazepam 1 Mg Tablet) 1 mg PO BID PRN PRN Reason: anxiety Losartan Potassium (Losartan Potassium 25 Mg Tablet) 25 mg PO DAILY@0900 [facility]; Protocol Metoclopramide HCl (Metoclopramide Hcl 5 Mg Tablet) 5 mg PO TIDAC [facility] Metoprolol Succinate (Metoprolol Succinate Er 50 Mg Tab.Er.24h) 50 mg PO DAILY@09 [facility]; Protocol Mirtazapine (Mirtazapine 30 Mg Tablet) 30 mg PO BEDTIME [facility] Last Admin: 07/26/23 20:48 Dose: 30 mg Non-Formulary Medication (Ferrous Sulfate [Feosol]) 325 mg PO DAILY@899 [facility] Non-Formulary Medication (Tiotropium [place] [Spiriva With Handihaler]) 1 cap INHALE DAILY@899 [facility] Omeprazole (Omeprazole 40 Mg Capsule.Dr) 40 mg PO DAILY@629 [facility] Ondansetron HCl (Ondansetron Hcl 4 Mg/2 Ml Vial) 4 mg IVPUSH Q8H PRN PRN Reason: Nausea and Vomiting Last Admin: 07/26/23 11:34 Dose: 4 mg Sodium Chloride (0.9 % Sodium Chloride Flush 3 Ml Syringe) 3 ml IVFLUSH QSHIFT [facility] Last Admin: 07/27/23 09:14 Dose: 3 ml Sodium Chloride (Sodium Chloride Tab 1 Gm Tablet) 2 gm PO BID [facility] Last Admin: 07/27/23 09:08 Dose: 2 gm Sucralfate (Sucralfate 1 Gm Tablet) 4 gm PO DAILY@1200 [facility] Home Medications ?Medication ?Instructions ?Recorded ?Confirmed ?Last Taken ?Type alosetron 0.5 mg tablet 1 mg PO DAILY@89907/22/23 07/25/23 07/22/23 History aspirin 81 mg tablet,delayed 81 mg PO DAILY@89907/22/23 07/25/23 07/22/23 History release cholecalciferol (vitamin D3) 50 50 mcg PO DAILY@89907/22/23 07/25/23 07/22/23 History mcg (2,000 unit) capsule escitalopram oxalate 20 mg tablet 20 mg PO DAILY@89907/22/23 07/25/23 07/22/23 History ferrous sulfate 325 mg (65 mg 325 mg PO DAILY@89907/22/23 07/25/23 07/22/23 History iron) tablet (Feosol) losartan 25 mg tablet 25 mg PO DAILY@0900 07/22/23 07/25/23 07/22/23 History metoclopramide HCl 5 mg tablet 5 mg PO TIDAC 07/22/23 07/25/23 Unknown History (Reglan) metoprolol succinate 50 mg 50 mg PO DAILY@0900 07/22/23 07/25/23 07/22/23 History tablet,extended release 24 hr oxycodone 5 mg tablet 5 mg PO BID PRN pain 07/22/23 07/25/23 Unknown History pantoprazole 40 mg tablet,delayed 40 mg PO DAILY@0630 07/22/23 07/25/23 07/22/23 History release solifenacin 10 mg tablet 10 mg PO DAILY@0900 07/22/23 07/25/23 07/22/23 History tiotropium bromide 18 mcg capsule 1 cap inhalation DAILY@0900 copd 07/22/23 07/25/23 07/22/23 History with inhalation device (Spiriva with HandiHaler) sucralfate 1 gram tablet (Carafate) 4 g PO DAILY@1200 07/25/23 07/25/23 Unknown History Physical Exam Vital Signs: Last Vital Signs Temp 96.9 F 07/27/23 07:32 Pulse 66 07/27/23 07:32 Resp 18 07/27/23 07:32 BP 142/94 H 07/27/23 07:32 Pulse Ox 93 07/27/23 07:32 O2 Del Method Room Air 07/27/23 07:32 O2 Flow Rate 2 07/25/23 17:10 BMI result Body Mass Index 23.8 Awake. Comfortable. Neck is supple. Mucosa moist. Lungs bilateral scattered rhonchi. Heart S1-S2 heard no gallop. Abdomen soft. Extremities no edema. No involuntary movements. No myoclonus. Results Lab Results 07/26/23 14:11 07/27/23 05:15 Lab results: Chemistry 07/25/23 07/26/23 07/26/23 09:40 06:05 14:11 Sodium 122 L 122 L 123 L Potassium 3.2 L 3.9 D 3.4 Carbon Dioxide 23 23 20 L BUN 9 9 7 L Creatinine 0.62 0.58 0.65 Calcium 9.1 D 7.7 L D 7.4 L 07/27/23 05:15 Sodium 126 L Potassium 4.3 D Carbon Dioxide 26 BUN 6 L Creatinine 0.59 Calcium 7.9 L D Hematology 07/25/23 07/26/23 09:40 14:11 WBC 11.2 H 5.5 Hgb 13.4 D 11.8 L Plt Count 215 D 157 L D Assessment and Plan (1) Acute hyponatremia: Status: Acute Plan 62-year-old woman with hyponatremia. She probably has non osmotic ADH release leading to decreased free water clearance. Mild hypothyroidism could be a contributing factor as well. She was on an SSRI at the time of admission which could also be a contributing factor. Recommendations Limit oral free water intake to 1.2 L per 24 hours. Hold SSRIs until serum creatinine improves. Optimize thyroid function. Goal is to correct serum sodium rate of 0.5-1 millimole per L/hr and not exceed more than 10 millimoles in a 24 hour. Monitor serum sodium every 4 -6 hours for now. Salt tablets to increase osmotic load. No absolute indication for urea powder yet. She will follow along with the team. Procedures Date of Service Date of Service: 07/27/23
[2023-07-27] MEDS: Metoclopramide HCl 5 MG TABLET PO ×2 (11:11→15:21)
[2023-07-27] MEDS: Sucralfate 1 GM TABLET 4 GM PO (11:11)
[2023-07-27] MEDS: LORazepam 1 MG TABLET PO ×2 (11:11→21:15)
[2023-07-27] MEDS: Omeprazole 40 MG CAPSULE.DR PO (11:11)
[2023-07-27] MEDS: guaiFENesin DM 200/20/10 ML 10 ML SYRUP PO ×3 (11:12→21:15)
--- NOTE | 2023-07-27 11:35 | MHC.CM.PN ---
EMR REVIEWED AND PER MD ROUNDS, PT IS NOT MEDICALLY CLEARED FOR DC (HYPONATREMIA) CM WILL CONTINUE TO FOLLOW FOR ANY CHANGE IN DC NEEDS/PLAN
[2023-07-27 15:15] VITALS: BP 158/90; PULSE 72; RESP 18; TEMP 36.2; O2SAT 94
--- NOTE | 2023-07-27 17:02 | P.PNIM_ITS ---
Subjective Subjective Date of Service: 07/27/23 Interval History: Complaining congested cough, nausea and vomiting, denies fever, no chills, no shortness a breath, no other acute issues overnight, sodium improved to 126 after sodium chloride tablets. Review of Systems All other system reviewed and negative Physical Exam 2 Vital Signs: Vital Signs: Last Vital Signs Temp 97.2 F 07/27/23 15:15 Pulse 72 07/27/23 15:15 Resp 18 07/27/23 15:15 BP 158/90 H 07/27/23 15:15 Pulse Ox 94 07/27/23 15:15 O2 Del Method Room Air 07/27/23 15:15 O2 Flow Rate 2 07/25/23 17:10 BMI result Body Mass Index 23.8 Const: Other: General awake alert x3, in no acute distress. Neck supple no JVD. CVS regular rate rhythm, Respiratory lungs clear to auscultation, no respiratory distress, no wheeze, no rhonchi. Gastrointestinal abdomen soft, non tender, bowel sounds audible, no guarding , no rigidity. Extremities no edema. Neuro non focal Skin no rash Psych appropriate affect Objective Data Active Medications Acetaminophen (Acetaminophen 325 Mg Tablet) 650 mg PO Q6H PRN PRN Reason: Pain, Mild (Pain Scale 1-3) Last Admin: 07/26/23 17:08 Dose: 650 mg Documented By: KARTHIK Albuterol Sulfate (Albuterol Sulfate 90 Mcg 8 Gm Inhaler) 2 puff INHALE RQ4H PRN PRN Reason: sob Aspirin (Aspirin Enteric Coated 81 Mg Tablet.) 81 mg PO DAILY@0900 ON LICENSE OF [facility] Atorvastatin Calcium (Atorvastatin Calcium 20 Mg Tablet) 20 mg PO BEDTIME ON LICENSE OF [facility] Last Admin: 07/26/23 20:48 Dose: 20 mg Documented By: SHANI Escitalopram Oxalate (Escitalopram Oxalate 20 Mg Tablet) 20 mg PO DAILY@0900 ON LICENSE OF [facility] Ferrous Sulfate (Ferrous Sulfate 324 Mg Tablet.) 324 mg PO DAILY@0900 ON LICENSE OF [facility] Guaifenesin/Dextromethorphan (Guaifenesin Dm 200/20/10 Ml 10 Ml Syrup) 10 ml PO TID ON LICENSE OF [facility] Last Admin: 07/27/23 15:20 Dose: 10 ml Documented By: FOGARTB Hydroxyzine HCl (Hydroxyzine Hcl 50 Mg Tablet) 50 mg PO BEDTIME ON LICENSE OF [facility] Last Admin: 07/26/23 20:47 Dose: 50 mg Documented By: SHANI Ceftriaxone Sodium 1 gm/ (Sodium Chloride) 50 mls @ 100 mls/hr IV Q24H ON LICENSE OF [facility] Last Infusion: 07/27/23 09:38 Dose: Infused Documented By: BERNY Doxycycline Hyclate 100 mg/ (Sodium Chloride) 250 mls @ 166.67 mls/hr IV Q12H ON LICENSE OF [facility] Last Infusion: 07/27/23 12:44 Dose: Infused Documented By: BERNY Lorazepam (Lorazepam 1 Mg Tablet) 1 mg PO BID PRN PRN Reason: anxiety Last Admin: 07/27/23 11:11 Dose: 1 mg Documented By: BERNY Losartan Potassium (Losartan Potassium 25 Mg Tablet) 25 mg PO DAILY@0900 ON LICENSE OF [facility]; Protocol Metoclopramide HCl (Metoclopramide Hcl 5 Mg Tablet) 5 mg PO TIDAC ON LICENSE OF [facility] Last Admin: 07/27/23 15:21 Dose: 5 mg Documented By: BERNY Metoprolol Succinate (Metoprolol Succinate Er 50 Mg Tab.Er.24h) 50 mg PO DAILY@0900 ON LICENSE OF [facility]; Protocol Mirtazapine (Mirtazapine 30 Mg Tablet) 30 mg PO BEDTIME ON LICENSE OF [facility] Last Admin: 07/26/23 20:48 Dose: 30 mg Documented By: SHANI Omeprazole (Omeprazole 40 Mg Capsule.Dr) 40 mg PO DAILY@0630 ON LICENSE OF [facility] Last Admin: 07/27/23 11:11 Dose: 40 mg Documented By: BERNY Ondansetron HCl (Ondansetron Hcl 4 Mg/2 Ml Vial) 4 mg IVPUSH Q8H PRN PRN Reason: Nausea and Vomiting Last Admin: 07/26/23 11:34 Dose: 4 mg Documented By: KARTHIK Sodium Chloride (0.9 % Sodium Chloride Flush 3 Ml Syringe) 3 ml IVFLUSH QSHIFT ON LICENSE OF [facility] Last Admin: 07/27/23 15:22 Dose: 3 ml Documented By: BERNY Sodium Chloride (Sodium Chloride Tab 1 Gm Tablet) 2 gm PO BID ON LICENSE OF [facility] Last Admin: 07/27/23 09:08 Dose: 2 gm Documented By: BERNY Sucralfate (Sucralfate 1 Gm Tablet) 4 gm PO DAILY@1200 ON LICENSE OF [facility] Last Admin: 07/27/23 11:11 Dose: 4 gm Documented By: BERNY Tiotropium [place] (Tiotropium [place] 2.5 Mcg 1 Puff/2.5 Mcg Mist.Inhal) 2 puff INHALE RDAILY ON LICENSE OF [facility] Labs 07/26/23 14:11 07/27/23 05:15 Labs: Laboratory Results - last 24 hr 07/26/23 07/27/23 17:33 05:15 Hold Purple Top SEE NOTE Anion Gap 9 L Estim Creat Clear Calc 77.2 Estimated GFR > 60 Random Glucose 92 Calcium 7.9 L D Total Bilirubin 0.5 AST 28 ALT 20 Alkaline Phosphatase 39 Total Protein 5.4 L Albumin 3.3 L TSH 4.05 H Random Cortisol 7.2 Ur Random Sodium 158.0 Assessment and Plan (1) Acute exacerbation of chronic obstructive pulmonary disease (COPD): Status: Acute (2) Acute hyponatremia: Status: Acute Plan 62 yo female with PMH of bronchitis, IVDA, COPD, HTN, HLD, anemia, GERD, IBS, gastroparesis, anxiety, depression, presents with proximally 48 hours of worsening shortness of breath and sputum production. She states was not accompanied by fever and chills. Once again found to be hyponatremic 1. Acute exacerbation of COPD secondary to pneumonia -continue IV ceftriaxone/doxycycline day 3 -add cough syrup and duo neb as needed for shortness of breath -titrate O2 to maintain sats greater than equal to 90% 2. Acute hyponatremia -gradually improving from 122-126, continue sodium chloride tablets 2 g b.i.d. -follow renals/divalents/urine sodium -1200 mL fluid restriction/hold Lexapro till sodium improves -being followed by Nephrology 3.Chest Pressure -no recurrent symptoms troponin negative , EKG showed no acute changes, continue metoprolol, aspirin and Lipitor 4. Mood disorder will resume home medication Remeron, hold Lexapro as above 5. Nausea and vomiting likely chronic will resume home medication Reglan, Carafate and PPI follow clinical course Full code Lovenox Patient will require continued inpatient hospitalization for IV antibiotics to treat pneumonia that has failed outpatient therapies and also close monitoring for hyponatremia. Quality Stroke Does the patient have a stroke diagnosis?: No VTE Prior VTE?: No VTE Risk Level:: Medical - moderate - high VTE Device Contraindication: N/A - Device Ordered VTE Drug Contraindication: Treatment Not Indicated
[2023-07-27 18:57] LABS: Anion Gap 11 (12-20); Blood Urea Nitrogen 7 mg/dL (9-16); Calcium 8.4 mg/dL (8.4-10.2); Carbon Dioxide 26 mmol/L (22-29); Chloride 95 mmol/L (96-108); Creatinine Clr Calc Pharmacy 66.9; Estimated Glomerular Filt Rate > 60; Glucose Random 77 mg/dL (60-115); Potassium 3.1 mmol/L (3.3-5.1); Sodium 129 mmol/L (135-145)
[2023-07-27 19:20] VITALS: BP 119/84; PULSE 92; RESP 18; TEMP 36.5; O2SAT 97
[2023-07-27] MEDS: hydrOXYzine HCL 50 MG TABLET PO (21:13)
[2023-07-27] MEDS: Atorvastatin Calcium 20 MG TABLET PO (21:14)
[2023-07-27] MEDS: Mirtazapine 30 MG TABLET PO (21:15)
[2023-07-28] MEDS: Doxycycline Hyclate 100 MG in 0.9 % Sodium Chloride 250 ML 166.67 MG IV ×3 (01:22→23:49)
[2023-07-28] MEDS: Acetaminophen 325 MG TABLET 650 MG PO (01:25)
[2023-07-28 03:44] VITALS: BP 131/88; PULSE 76; RESP 17; TEMP 36.1; O2SAT 94
[2023-07-28] MEDS: Omeprazole 40 MG CAPSULE.DR PO (05:55)
[2023-07-28 06:27] LABS: Anion Gap 10 (12-20); Blood Urea Nitrogen 10 mg/dL (9-16); Calcium 8.5 mg/dL (8.4-10.2); Carbon Dioxide 27 mmol/L (22-29); Chloride 97 mmol/L (96-108); Estimated Glomerular Filt Rate > 60; Glucose Random 97 mg/dL (60-115); Potassium 3.9 mmol/L (3.3-5.1); Sodium 130 mmol/L (135-145)
[2023-07-28 07:55] VITALS: BP 124/82; PULSE 74; RESP 6; TEMP 36.2; O2SAT 95
[2023-07-28] MEDS: Sodium Chloride Tab 1 GM TABLET 2 GM PO ×2 (08:54→19:59)
[2023-07-28] MEDS: Losartan Potassium 25 MG TABLET PO (08:54)
[2023-07-28] MEDS: Ferrous Sulfate 324 MG TABLET.DR PO (08:54)
[2023-07-28] MEDS: Aspirin Enteric Coated 81 MG TABLET.DR PO (08:54)
[2023-07-28] MEDS: Metoclopramide HCl 5 MG TABLET PO ×3 (08:54→15:34)
[2023-07-28] MEDS: Metoprolol Succinate ER 50 MG TAB.ER.24H PO (08:54)
[2023-07-28] MEDS: LORazepam 1 MG TABLET PO (08:55)
[2023-07-28] MEDS: 0.9 % Sodium Chloride Flush 3 ML SYRINGE IVFLUSH ×2 (08:55→15:36)
[2023-07-28] MEDS: guaiFENesin DM 200/20/10 ML 10 ML SYRUP PO ×3 (08:55→19:59)
[2023-07-28] MEDS: cefTRIAXone sodium 1 GM in 0.9 % Sodium Chloride 50 ML IV (08:55)
--- NOTE | 2023-07-28 10:11 | P.PNNP_ITS ---
Subjective Subjective Date of Service: 07/28/23 Interval history: Events noted Physical Exam 2 Vital Signs: Vital Signs: Last Vital Signs Temp 97.2 F 07/28/23 07:55 Pulse 74 07/28/23 07:55 Resp 6 L 07/28/23 07:55 BP 124/82 07/28/23 07:55 Pulse Ox 95 07/28/23 07:55 O2 Del Method Room Air 07/28/23 07:55 O2 Flow Rate 2 07/25/23 17:10 BMI result Body Mass Index 23.8 Const: Other: General awake alert x3, in no acute distress. Neck supple no JVD. CVS regular rate rhythm, Respiratory lungs clear to auscultation, no respiratory distress, no wheeze, no rhonchi. Gastrointestinal abdomen soft, non tender, bowel sounds audible, no guarding , no rigidity. Extremities no edema. Neuro non focal Skin no rash Psych appropriate affect Objective Data Labs 07/26/23 14:11 07/28/23 05:26 Labs: Laboratory Results - last 24 hr 07/27/23 07/28/23 18:20 05:26 Sodium 129 L 130 L Potassium 3.1 L D 3.9 D Chloride 95 L 97 Carbon Dioxide 26 27 Anion Gap 11 L 10 L BUN 7 L 10 Creatinine 0.68 0.70 Estim Creat Clear Calc 66.9 65.0 Estimated GFR > 60 > 60 Random Glucose 77 97 Calcium 8.4 D 8.5 Procedures Date of Service Date of Service: 07/28/23 Assessment & Plan Assessment and plan (1) Acute hyponatremia: Status: Acute Plan 62-year-old woman with hyponatremia. She probably has non osmotic ADH release leading to decreased free water clearance. Mild hypothyroidism could be a contributing factor as well. She was on an SSRI at the time of admission which could also be a contributing factor. Recommendations Limit oral free water intake to 1.2 L per 24 hours. Hold SSRIs until serum creatinine improves. Optimize thyroid function. Goal is to correct serum sodium rate of 0.5-1 millimole per L/hr and not exceed more than 10 millimoles in a 24 hour. Monitor serum sodium every 12 hours for now. Salt tablets to increase osmotic load. No absolute indication for urea powder yet. She will follow along with the team. Time Spent With Patient Time: Total time managing care of this patient today ____ minutes. Progress Note: Quality Stroke Does the patient have a stroke diagnosis?: No
[2023-07-28] MEDS: Sucralfate 1 GM TABLET 4 GM PO (11:22)
[2023-07-28] MEDS: Tiotropium Bromide 2.5 mcg 1 PUFF/2.5 MCG MIST.INHAL 2 PUFF INHALE (11:24)
[2023-07-28 11:26] VITALS: PULSE 87; RESP 16; O2SAT 95
--- NOTE | 2023-07-28 12:34 | HO.PM.IMPN ---
Subjective Subjective Date of Service: 07/28/23 Interval History: Complaining of productive cough bringing up brown phlegm, concern about left eye infection, no pain, no drainage, denies headache, no lightheadedness, no dizziness, no fevers or chills, no acute events overnight sodium improved to 130. Review of Systems All other system reviewed and negative. Physical Exam Vital Signs: Vital Signs: Last Vital Signs Temp 97.2 F 07/28/23 07:55 Pulse 87 07/28/23 11:26 Resp 16 07/28/23 11:26 BP 124/82 07/28/23 07:55 Pulse Ox 95 07/28/23 07:55 O2 Del Method Room Air 07/28/23 07:55 O2 Flow Rate 2 07/25/23 17:10 BMI result Body Mass Index 23.8 Const: Other: General awake alert x3, in no acute distress. Left eye normal examination no conjunctival hyperemia, no secretions,no swelling Neck supple no JVD. CVS regular rate rhythm, Respiratory lungs clear to auscultation, no respiratory distress, no wheeze, no rhonchi. Gastrointestinal abdomen soft, non tender, bowel sounds audible, no guarding , no rigidity. Extremities no edema. Neuro non focal Skin no rash Psych appropriate affect Objective Data Active Medications Acetaminophen (Acetaminophen 325 Mg Tablet) 650 mg PO Q6H PRN PRN Reason: Pain, Mild (Pain Scale 1-3) Last Admin: 07/28/23 01:25 Dose: 650 mg Documented By: RAQUEL Albuterol Sulfate (Albuterol Sulfate 90 Mcg 8 Gm Inhaler) 2 puff INHALE RQ4H PRN PRN Reason: sob Aspirin (Aspirin Enteric Coated 81 Mg Tablet.) 81 mg PO DAILY@0900 [facility] Last Admin: 07/28/23 08:54 Dose: 81 mg Documented By: BERNY Atorvastatin Calcium (Atorvastatin Calcium 20 Mg Tablet) 20 mg PO BEDTIME [facility] Last Admin: 07/27/23 21:14 Dose: 20 mg Documented By: RAQUEL Ferrous Sulfate (Ferrous Sulfate 324 Mg Tablet.) 324 mg PO DAILY@0900 [facility] Last Admin: 07/28/23 08:54 Dose: 324 mg Documented By: BERNY Guaifenesin/Dextromethorphan (Guaifenesin Dm 200/20/10 Ml 10 Ml Syrup) 10 ml PO TID [facility] Last Admin: 07/28/23 08:55 Dose: 10 ml Documented By: BERNY Hydroxyzine HCl (Hydroxyzine Hcl 50 Mg Tablet) 50 mg PO BEDTIME [facility] Last Admin: 07/27/23 21:13 Dose: 50 mg Documented By: RAQUEL Ceftriaxone Sodium 1 gm/ (Sodium Chloride) 50 mls @ 100 mls/hr IV Q24H [facility] Last Infusion: 07/28/23 09:26 Dose: Infused Documented By: BERNY Doxycycline Hyclate 100 mg/ (Sodium Chloride) 250 mls @ 166.67 mls/hr IV Q12H [facility] Last Admin: 07/28/23 11:23 Dose: 166.67 mls/hr Documented By: BERNY Lorazepam (Lorazepam 1 Mg Tablet) 1 mg PO BID PRN PRN Reason: anxiety Last Admin: 07/28/23 08:55 Dose: 1 mg Documented By: BERNY Losartan Potassium (Losartan Potassium 25 Mg Tablet) 25 mg PO DAILY@0900 [facility]; Protocol Last Admin: 07/28/23 08:54 Dose: 25 mg Documented By: BERNY Metoclopramide HCl (Metoclopramide Hcl 5 Mg Tablet) 5 mg PO TIDAC [facility] Last Admin: 07/28/23 11:22 Dose: 5 mg Documented By: BERNY Metoprolol Succinate (Metoprolol Succinate Er 50 Mg Tab.Er.24h) 50 mg PO DAILY@0900 [facility]; Protocol Last Admin: 07/28/23 08:54 Dose: 50 mg Documented By: BERNY Mirtazapine (Mirtazapine 30 Mg Tablet) 30 mg PO BEDTIME [facility] Last Admin: 07/27/23 21:15 Dose: 30 mg Documented By: RAQUEL Omeprazole (Omeprazole 40 Mg Capsule.Dr) 40 mg PO DAILY@0630 [facility] Last Admin: 07/28/23 05:55 Dose: 40 mg Documented By: RAQUEL Ondansetron HCl (Ondansetron Hcl 4 Mg/2 Ml Vial) 4 mg IVPUSH Q8H PRN PRN Reason: Nausea and Vomiting Last Admin: 07/26/23 11:34 Dose: 4 mg Documented By: HO.JERUSIA Sodium Chloride (0.9 % Sodium Chloride Flush 3 Ml Syringe) 3 ml IVFLUSH QSHIFT [facility] Last Admin: 07/28/23 08:55 Dose: 3 ml Documented By: BERNY Sodium Chloride (Sodium Chloride Tab 1 Gm Tablet) 2 gm PO BID [facility] Last Admin: 07/28/23 08:54 Dose: 2 gm Documented By: BERNY Sucralfate (Sucralfate 1 Gm Tablet) 4 gm PO DAILY@1200 [facility] Last Admin: 07/28/23 11:22 Dose: 4 gm Documented By: BERNY Tiotropium [place] (Tiotropium [place] 2.5 Mcg 1 Puff/2.5 Mcg Mist.Inhal) 2 puff INHALE RDAILY [facility] Last Admin: 07/28/23 11:24 Dose: 2 puff Documented By: LUCIUS Labs 07/26/23 14:11 07/28/23 05:26 Labs: Laboratory Results - last 24 hr 07/27/23 07/28/23 18:20 05:26 Anion Gap 11 L 10 L Estim Creat Clear Calc 66.9 65.0 Estimated GFR > 60 > 60 Random Glucose 77 97 Calcium 8.4 D 8.5 Assessment and Plan (1) Acute exacerbation of chronic obstructive pulmonary disease (COPD): Status: Acute (2) Acute hyponatremia: Status: Acute Plan 62 yo female with PMH of bronchitis, IVDA, COPD, HTN, HLD, anemia, GERD, IBS, gastroparesis, anxiety, depression, presents with proximally 48 hours of worsening shortness of breath and sputum production. She states was not accompanied by fever and chills. Once again found to be hyponatremic 1. Acute exacerbation of COPD secondary to pneumonia -persists then congestive cough no fevers, WBC count normalized -on IV ceftriaxone/doxycycline day 4/5 -continue cough syrup and duo neb as needed for shortness of breath -oxygenation improved now on room air. -recommend out of bed to chair and ambulation t.i.d. 2. Acute hyponatremia -sodium improved to 130 ,continue sodium chloride tablets 2 g b.i.d./fluid restriction 1.2L,hold Lexapro till sodium improves -TSH 4 with no prior history of hypothyroidism question subclinical hypothyroidism will check free T4, follow renals/divalents/urine sodium -being followed by Nephrology 3.Chest Pressure -no recurrent symptoms troponin negative , EKG showed no acute changes, continue metoprolol, aspirin and Lipitor 4. Mood disorder continue home medication Remeron, hold Lexapro as above 5. Nausea and vomiting likely chronic resolved, continue home medication Reglan, Carafate and PPI follow clinical course Full code Lovenox Patient will require continued inpatient hospitalization for IV antibiotics to treat pneumonia that has failed outpatient therapies and also close monitoring for hyponatremia. Quality Stroke Does the patient have a stroke diagnosis?: No VTE Prior VTE?: No VTE Risk Level:: Medical - moderate - high VTE Device Contraindication: N/A - Device Ordered VTE Drug Contraindication: Treatment Not Indicated
--- NOTE | 2023-07-28 13:13 | MHC.CM.PN ---
CM MET WITH PT AT BEDSIDE. PT DOES NOT WANT HOME SERVICES AT DC DUE TO HOME BEING TOO MESSY AND NOT WANTING PEOPLE IN HER HOME. CM WILL CONTINUE TO FOLLOW FOR ANY CHANGE IN DC PLAN.
[2023-07-28 13:40] LABS: Free T4 (Free Thyroxine) 0.95 ng/dL (0.71-1.85)
[2023-07-28 15:57] VITALS: BP 138/82; RESP 18; TEMP 36.2; O2SAT 97
[2023-07-28 19:18] VITALS: BP 144/86; PULSE 71; RESP 18; TEMP 36.5; O2SAT 96
[2023-07-28] MEDS: Mirtazapine 30 MG TABLET PO (19:59)
[2023-07-28] MEDS: Atorvastatin Calcium 20 MG TABLET PO (19:59)
[2023-07-28] MEDS: hydrOXYzine HCL 50 MG TABLET PO (20:00)
[2023-07-29 02:21] VITALS: BP 177/84; PULSE 63; RESP 18; TEMP 36.5; O2SAT 97
[2023-07-29 04:06] VITALS: BP 142/89; PULSE 62
[2023-07-29] MEDS: Omeprazole 40 MG CAPSULE.DR PO (06:14)
[2023-07-29 08:00] VITALS: BP 146/90; PULSE 78; RESP 18; TEMP 36; O2SAT 96
[2023-07-29 08:22] LABS: Anion Gap 11 (12-20); Blood Urea Nitrogen 9 mg/dL (9-16); Carbon Dioxide 26 mmol/L (22-29); Chloride 96 mmol/L (96-108); Creatinine Clr Calc Pharmacy 71.1; Estimated Glomerular Filt Rate > 60; Glucose Random 105 mg/dL (60-115); Potassium 3.8 mmol/L (3.3-5.1); Sodium 129 mmol/L (135-145)
[2023-07-29] MEDS: Tiotropium Bromide 2.5 mcg 1 PUFF/2.5 MCG MIST.INHAL 2 PUFF INHALE (08:36)
[2023-07-29 08:38] VITALS: PULSE 78; RESP 18; O2SAT 97
[2023-07-29] MEDS: Aspirin Enteric Coated 81 MG TABLET.DR PO (08:50)
[2023-07-29] MEDS: Metoclopramide HCl 5 MG TABLET PO (08:50)
[2023-07-29 08:51] VITALS: BP 146/90; PULSE 78
[2023-07-29] MEDS: Losartan Potassium 25 MG TABLET PO (08:51)
[2023-07-29] MEDS: Ferrous Sulfate 324 MG TABLET.DR PO (08:51)
[2023-07-29] MEDS: Metoprolol Succinate ER 50 MG TAB.ER.24H PO (08:51)
[2023-07-29] MEDS: LORazepam 1 MG TABLET PO (08:51)
[2023-07-29] MEDS: Sodium Chloride Tab 1 GM TABLET 2 GM PO (08:52)
[2023-07-29] MEDS: guaiFENesin DM 200/20/10 ML 10 ML SYRUP PO (08:52)
[2023-07-29] MEDS: 0.9 % Sodium Chloride Flush 3 ML SYRINGE IVFLUSH (08:56)
[2023-07-29 11:44] LABS: Magnesium 1.8 mg/dL (1.6-2.6)
--- NOTE | 2023-07-29 11:51 | MHC.CM.PN ---
DP: PT HAS BEEN MEDICALLY CLEARED FOR DC HOME , NO SERVICES. PT HAS OWN RIDE HOME
--- NOTE | 2023-07-29 12:49 | PM.DS ---
DS: Providers Provider Date of Service: 07/29/23 Date of admission: 07/25/23 12:07 Primary care physician: Sarthak Person MD Consults: 07/26/23 13:47 Consult to Nephrology Routine Consulting Provider: [facility] Reason for consultation: hyponatremia Has provider been notified: No DS: Diagnosis Discharge Diagnosis (1) Acute exacerbation of chronic obstructive pulmonary disease (COPD): Status: Acute (2) Acute hyponatremia: Status: Acute DS: Summary Hospital Course Hospital Course: History of presenting illness: Date of Service: 07/25/23 Chief Complaint: Shortness of breath 62 yo female with PMH of bronchitis, IVDA, COPD, HTN, HLD, anemia, GERD, IBS, gastroparesis, anxiety, depression, notes she started to feel sick with increasing cough, difficulty breathing, sputum production and chills yesterday with vomiting. She feels weak today and still feels cough and wheezing. She states her nebs are not helping. She denies travel, sick contacts. Has had similar presentations in the past; admitted 07/21 - 07/24/23 for same. States she went home and was feeling extremely anxious; smoked more than usual became very wheezy and shortness of breath and presented to the ER. Presented back to the emergency room where ER workup essentially unchanged. Hospital course: 62 yo female with PMH of bronchitis, IVDA, COPD, HTN, HLD, anemia, GERD, IBS, gastroparesis, anxiety, depression, presents with proximally 48 hours of worsening shortness of breath and sputum production. She states was not accompanied by fever and chills. Once again found to be hyponatremic 1. Acute exacerbation of COPD secondary to pneumonia treated with IV antibiotics, IV steroids and cough medication patient responded well to above treatment currently afebrile with normal WBC count patient has finish total 5 day course of antibiotic therefore will discharge home with recommendations to avoid smoking take cough medication as needed, recommend to repeat chest x-ray in 1 month time to follow-up on right parahilar opacity. 2. Acute hyponatremia likely related to excessive fluid intake, use of SSRIs and due to pneumonia, patient treated with sodium chloride tablets sodium improved to 129, recommend to restrict fluids to 1.2-1.5 L and to take sodium chloride tablets 1 g twice daily for 1 more week and recommend outpatient follow-up with Nephrology in 1-2 weeks patient noted to have subclinical hypothyroidism with mildly elevated TSH and normal free T4. 3.Chest Pressure -no recurrent symptoms troponin negative , EKG showed no acute changes, continue metoprolol, aspirin and Lipitor 4. Mood disorder continue home medication Remeron, and Lexapro 5. Nausea and vomiting likely chronic resolved, continue home medication Reglan, Carafate and PPI. 6. Hypo magnesemia noted on admission repleted and normalized 7. Tobacco use disorder strongly recommend to abstain from smoking support provided. Time Attestation Discharge Coordination Time (in mins): 38 Quality: Safe Use of Opioids Does Pt have an Active Cancer Diagnosis on the Problem List?: No Quality: Stroke Does the patient have a stroke diagnosis?: No Physical Exam Vital Signs: Vital Signs: Last Vital Signs Temp 96.8 F 07/29/23 08:00 Pulse 78 07/29/23 08:51 Resp 18 07/29/23 08:38 BP 146/90 H 07/29/23 08:51 Pulse Ox 96 07/29/23 08:00 O2 Del Method Room Air 07/29/23 08:00 O2 Flow Rate 2 07/25/23 17:10 BMI result Body Mass Index 23.8 Const: Other: General awake alert x3, in no acute distress. Left eye normal examination no conjunctival hyperemia, no secretions,no swelling Neck supple no JVD. CVS regular rate rhythm, Respiratory lungs clear to auscultation, no respiratory distress, no wheeze, no rhonchi. Gastrointestinal abdomen soft, non tender, bowel sounds audible, no guarding , no rigidity. Extremities no edema. Neuro non focal Skin no rash Psych appropriate affect DS: Data Data Completed and Pending Labs on day of discharge: Laboratory Results - last 24 hr 07/28/23 07/29/23 05:26 07:48 Sodium 129 L Potassium 3.8 Chloride 96 Carbon Dioxide 26 Anion Gap 11 L BUN 9 Creatinine 0.64 Estim Creat Clear Calc 71.1 Estimated GFR > 60 Random Glucose 105 Calcium 9.0 Magnesium 1.8 Free T4 0.95 Discharge Plan Discharge Anticipated Discharge Date/Time: 07/29/23 11:12 Patient Disposition: Home, Self-Care Discharge Diagnosis: Acute hypoxic respiratory failure Pneumonia Hyponatremia. Referrals: Sarthak Person MD [Primary Care Provider] - 08/06/23 12:15 pm (You have a follow up appointment scheduled. If you can not make this appointment please call the office and reschedule.) Discharge Medications: New dextromethorphan-guaifenesin 10-100 mg/5 mL Syrup 10 ml PO TID PRN (Reason: cough) Qty: 237 0RF sodium chloride 1,000 mg Tablet,Soluble 1,000 mg PO BID Qty: 14 0RF Continued ibuprofen 600 mg tablet 600 mg PO Q8H PRN (Reason: pain) 30 Days Qty: 90 1RF Rx Instructions: take with food cyclobenzaprine 5 mg tablet 5 mg PO TID PRN (Reason: muscle spasm) 30 Days Qty: 90 1RF albuterol sulfate [Ventolin HFA] 90 mcg/actuation HFA aerosol inhaler 1 puff PO Q6H PRN (Reason: shortness of breath or wheezing) 30 Days Qty: 8.5 3RF simvastatin 40 mg tablet 40 mg PO BEDTIME Qty: 90 1RF hydroxyzine HCl 50 mg tablet 50 mg PO BEDTIME Qty: 90 1RF lorazepam 1 mg tablet 1 mg PO BID PRN (Reason: anxiety) 28 Days Qty: 56 0RF metoprolol succinate 50 mg tablet extended release 24 hr 50 mg PO DAILY@0900 metoclopramide HCl [Reglan] 5 mg tablet 5 mg PO TIDAC pantoprazole 40 mg tablet,delayed release (DR/EC) 40 mg PO DAILY@0630 ferrous sulfate [Feosol] 325 mg (65 mg iron) tablet 325 mg PO DAILY@0900 losartan 25 mg tablet 25 mg PO DAILY@0900 oxycodone 5 mg tablet 5 mg PO BID PRN (Reason: pain) escitalopram oxalate 20 mg tablet 20 mg PO DAILY@0900 alosetron 0.5 mg tablet 1 mg PO DAILY@0900 tiotropium bromide [Spiriva with HandiHaler] 18 mcg capsule, w/inhalation device 1 cap inhalation DAILY@0900 Rx Instructions: puncture 1 cap using device; one dose = 2 inhalations solifenacin 10 mg tablet 10 mg PO DAILY@0900 cholecalciferol (vitamin D3) 50 mcg (2,000 unit) capsule 50 mcg PO DAILY@0900 Rx Instructions: 1 capsule Orally Once a day aspirin 81 mg Tablet,Delayed Release (Dr/Ec) 81 mg PO DAILY@0900 hydrocortisone 2.5 % cream 1 appl topical BID PRN (Reason: itching) Qty: 30 0RF sucralfate [Carafate] 1 gram tablet 4 g PO DAILY@1200 mirtazapine 30 mg tablet 30 mg PO BEDTIME 90 Days Qty: 90 1RF Discontinued doxycycline hyclate 100 mg tablet 100 mg PO BID Qty: 14 0RF Rx Instructions: END: 07/31/23 prednisone 10 mg tablet See Rx Instructions .Route .COMPLEX Qty: 45 0RF Rx Instructions: 10 mg orally; 5 tabs p.o. daily x3 days; 4 tabs p.o. daily x3 days; 3 tabs daily x3 days; 2 tabs daily x3 days; 1 tab daily x3 days Discharge Orders: Discharge Order (Routine); Ordered 07/29/23 Ordered By: Jaron Bergman Diet: Advance to usual diet Activity on Discharge: As tolerated Stand Alone Forms: Patient Portal Discharge page, Work/School Release Print Language: Pashto Care Plan Goals: Acute COPD exacerbation/pneumonia finished course of antibiotics Take cough medication as needed/avoid crowded gathering Restrict fluid intake to 1.2-1.5 L Repeat chest x-ray in 1 month to follow-up on right parahilar opacity. Health Concerns: Tobacco use disorder strongly recommend to abstain from smoking Plan of Treatment: Outpatient follow-up with primary care physician call for appointment Outpatient follow-up with Dr. Selvin Estrada for low-sodium Assessment: As above
== END 2023-07-29 13:06 | disposition home or self-care (01) | DRG 190 ==
LOC: HO.ED 09:29 → HO.EDOVER 12:13 → HO.S3 15:51
PROVIDERS: Internal Medicine Nephrology; Physician Assistant Medical; Admitting Provider Hospitalist; Emergency Provider Emergency Medicine; PCP Internal Medicine; Visit Provider Hospitalist
DX: J44.0 Chronic obstructive pulmonary disease with (acute) lower respiratory infection (principal); J18.9 Pneumonia, unspecified organism; J96.01 Acute respiratory failure with hypoxia; E87.1 Hypo-osmolality and hyponatremia; F41.9 Anxiety disorder, unspecified; F32.A Depression, unspecified; J44.1 Chronic obstructive pulmonary disease with (acute) exacerbation; E03.9 Hypothyroidism, unspecified; E87.6 Hypokalemia; E83.42 Hypomagnesemia; F17.210 Nicotine dependence, cigarettes, uncomplicated; Z20.822 Contact with and (suspected) exposure to COVID-19; Z71.6 Tobacco abuse counseling; Z79.82 Long term (current) use of aspirin; Z79.899 Other long term (current) drug therapy
CPT/HCPCS: 0241U; 36415; 71046; 80048; 80053; 82533; 83605; 83735; 84300; 84439; 84443; 84484; 85007; 85025; 85027; 93005; 94640; 99285; J0696; J0737; J2060; J2405; J2919; J3475; J3480

== ENCOUNTER → 2023-07-25 08:34 | Outpatient (BNV) | payer MEDICARE, MEDICAID, SELFPAY | PROVIDERS: Admitting Provider Hospitalist; Emergency Provider Emergency Medicine; PCP Internal Medicine; Visit Provider Internal Medicine | DX: I49.3 Ventricular premature depolarization (principal) | CPT/HCPCS: 93010 ==

== ENCOUNTER 2023-07-25 12:07 | Outpatient (BNV) | payer MEDICARE, MEDICAID, SELFPAY | END 2023-07-26 13:41 | PROVIDERS: Admitting Provider Hospitalist; Emergency Provider Emergency Medicine; PCP Internal Medicine; Visit Provider Internal Medicine Cardiovascular Disease | DX: I49.1 Atrial premature depolarization (principal) | CPT/HCPCS: 93010 ==

== ENCOUNTER → 2023-07-25 12:07 | Outpatient (BNV) | payer MEDICARE, MEDICAID, SELFPAY | PROVIDERS: Admitting Provider Hospitalist; Emergency Provider Emergency Medicine; PCP Internal Medicine; Visit Provider Hospitalist | DX: J44.1 Chronic obstructive pulmonary disease with (acute) exacerbation (principal); E87.1 Hypo-osmolality and hyponatremia | CPT/HCPCS: 99223; 99233; 99239 ==

== ENCOUNTER → 2023-07-25 12:07 | Outpatient (BNV) | payer MEDICARE, MEDICAID, SELFPAY | PROVIDERS: Admitting Provider Hospitalist; Emergency Provider Emergency Medicine; PCP Internal Medicine; Visit Provider Internal Medicine Nephrology | DX: E87.1 Hypo-osmolality and hyponatremia (principal) | CPT/HCPCS: 99222; 99232; 99499 ==

== ENCOUNTER 2023-08-06 11:57 | Outpatient (AMB) | payer MEDICARE, MEDICAID, SELFPAY ==
--- NOTE | 2023-08-06 11:58 | A.OFFPC_ITS ---
Vital Signs 08/06/23 11:59 Height 5 ft 2 in Weight 127 lb BMI 23.2 BP 140/88 H Blood Pressure Location Lt brachial Position Sitting Pulse 91 Pulse Source Pulse Oximeter Pulse Oximetry (%) 96 Oxygen Delivery Method Room Air Intake Visit Reasons: was discharged 07/27 from [facility] [place] trouble breathing Intake Note: Patient is here for hospital discharge follow up. 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 Allergies No Known Allergies [NO KNOWN ALLERGIES] Allergy (Unknown, Verified 08/07/23 0 4:30) unknown Medication List - Last Reconciled 08/07/23 by Sarthak Person MD albuterol sulfate 90 mcg/actuation (Ventolin HFA) 1 puff PO Q6H PRN 30 days alosetron 1 mg PO DAILY@0900 aspirin 81 mg PO DAILY cholecalciferol (vitamin D3) 50 mcg PO DAILY@0900 cyclobenzaprine 5 mg PO TID PRN 30 days dextromethorphan-guaifenesin 10-100 mg/5 mL 10 mL PO TID PRN escitalopram oxalate 20 mg PO DAILY 90 days ferrous sulfate (Feosol) 325 mg PO DAILY@0900 hydrocortisone 2.5% 1 appl topical BID PRN hydroxyzine HCl 50 mg PO BEDTIME ibuprofen 600 mg PO Q8H PRN 30 days lorazepam 1 mg PO BID PRN 28 days losartan 25 mg PO DAILY@0900 metoclopramide HCl (Reglan) 5 mg PO TIDAC metoprolol succinate ER 50 mg PO DAILY@0900 mirtazapine 30 mg PO BEDTIME 90 days oxycodone 5 mg PO .1-2 times daily PRN 10 days pantoprazole 40 mg PO DAILY@0630 Pulmicort Flexhaler 180 mcg/actuation (budesonide) 2 inhalations inhalation BID 30 days NS simvastatin 40 mg PO BEDTIME sodium chloride 1,000 mg PO BID solifenacin 10 mg PO DAILY@0900 sucralfate (Carafate) 4 grams PO DAILY@1200 tiotropium bromide (Spiriva with HandiHaler) 1 cap inhalation DAILY@0900 Tobacco use date assessed: 08/06/23 Dental Screening Dental Screen Date: 08/06/23 HPI was discharged 07/27 from [facility] [place] trouble breathing HPI Details Patient comes in today for her HDF follow up visit She was admitted to [facility] [place] for a few days from 07/25/2023 to 07/29/2023 for acute hypoxic respiratory failure/COPD exacerbation due to pneumonia and hyponatremia She was treated with IV Abx and steroids and these were eventually transitioned to oral and completed when her symptoms gradually improved and she was discharged back home She was also started on sodium chloride tablets for her hyponatremia and was recommended to see/follow up with nephrology on an outpatient basis for further evaluation and continuing management of this Patient states that her symptoms have improved a lot with treatment but she continues to experience recurrent chest tightness and coughing - coughs up minimal thick whitish to yellow-tinged phlegm at times Relates (+) fatigue but denies any fever, headaches or dizziness She denies any exertional chest pains No nausea/vomiting, no abdominal pain No change in bowel habits noted [facility] Medical History Rectal prolapse Bronchitis Nicotine dependence, cigarettes, uncomplicated Nonrheumatic mitral (valve) insufficiency Pulmonary nodule History of hepatitis C Osteopenia (~2011) COPD (chronic obstructive pulmonary disease) IV drug user Endocarditis of mitral valve (~11/2017) Mitral valve prolapse Mitral regurgitation Early satiety Paresthesia of left leg Allergic rhinitis Facet arthritis of lumbar region Cervical spondylosis Vitamin D deficiency Pure hypercholesterolemia Benign essential hypertension Depression GERD (gastroesophageal reflux disease) Anxiety Surgical History History of liver biopsy (~2009) History of partial colectomy (~2014) History of hysteroscopy (~2010) History of colonoscopy (~2017) Family History Father Internal bleeding Mother Medical history unknown Social History Household Members: None Housing: House Housing Other:: lives alone with her cat Malena Do you presently have visiting nurse or other home services: Yes Alcohol intake: current Alcohol intake frequency: former alcohol drinker Patient Tobacco Use Status: Current everyday Tobacco user Tobacco use type: Cigarette Cigarette Packs Per Day: 0.5 Cigarettes Per Day: 10 Years Smoked: 45 years (onset 15, 1/2-3/4ppd x 44yrs, 28pyh) e-Cigarette/Vaping Use: Never Used Second Hand Smoke Exposure: Yes Substance Use Type: Marijuana Advance Directives Date on File: 12/18/21 service: No Current occupational status: unemployed Sexual orientation: Straight/Heterosexual Gender identity: Female Cognitive needs: No Hearing needs: No Vision needs: Yes Female Reproductive History Menstrual Age of Menarche: 14 Questionnaire Thrive Questionnaire Date Thrive assessed: 07/26/23 I am a: Patient What is your living situation today?: I have a steady place to live Within the past 12 months, did the food you bought not last and you didn't have the money to get more?: Never true Within the past 12 months, did you worry whether your food would run out before you got money to buy more?: Never true Do you have trouble paying for medicines?: No Do you have trouble getting transportation to medical appointments?: No Do you have trouble paying your heating and electricity bill?: No Do you have trouble taking care of your child, family member or friend?: No Do you have trouble with day-to-day activities such as bathing, preparing meals, shopping, managing finances, etc.?: No Are you currently unemployed and looking for a job?: No Are you interested in more education?: No Please select the resources that you would like help with: None Currently or been in a relationship where the following occur: no concerns reported THRIVE Score: 0 AUDIT C Alcohol Use Questionnaire (AUDIT-C) 1. How often do you have a drink containing alcohol?: Never 3. How often do you have six or more drinks on one occasion?: Never Total Score: 0 Score Reviewed/Action Taken: Yes CHRISSIE-7 AMB Questionnaire CHRISSIE-7 Date CHRISSIE - 7 assessed: 06/03/23 Source: Developed by Drs. Demar Wolf, Yocasta Slater, Mathew Juarez and colleagues, with an educational mendoza from [employer]. Review of Systems Const Denies chills, Reports difficulty sleeping (on and off), Reports fatigue, Denies fever(s) and Denies headache(s) ENT Denies dysphagia, Denies dizziness, Denies otalgia, Denies headache(s), Denies odynophagia and Denies sore throat Card Denies chest pain, Denies palpitations and Reports dyspnea on exertion Resp Reports as per HPI, Reports chest congestion, Reports cough (frequent - coughs up clear to yellowish-tinged phlegm ), Denies hemoptysis, Denies pain with cough, Reports dyspnea on exertion and Reports wheezing (on and off) GI Denies abdominal pain, Reports hematochezia (recurrent), Denies constipation, Denies dysphagia, Denies heartburn, Reports fecal incontinence (at times), Reports loose stools (recurrent), Denies nausea, Denies odynophagia and Denies vomiting Denies difficulty voiding, Denies nocturia and Denies dysuria Musc Reports back pain (over the lumbar spine - chronic) and Reports arthralgias Skin/Breast Denies rash Neuro Denies dizziness, Denies headache(s) and Reports paresthesias (in the left leg) Psych Reports anxiety and Reports depression (increasing) Endo Reports fatigue and Denies palpitations Aller/Immun Reports wheezing (on and off) Physical exam (Primary Care) Vital Signs: Last Vital Signs Pulse 91 08/06/23 11:59 BP 140/88 H 08/06/23 11:59 Pulse Ox 96 08/06/23 11:59 Oxygen Delivery Method Room Air 08/06/23 11:59 BMI result Body Mass Index 23.2 Tobacco/Smoking Status: Tobacco use Status Tobacco use date assessed 08/06/23 08/06/23 11:59 Patient Tobacco Use Status Current everyday Tobacco 08/06/23 11:59 Tobacco use type Cigarette 08/06/23 11:59 e-Cigarette/Vaping Use Never Used 08/06/23 11:59 Thrive Assessment: Date of Thrive Assessment Date Thrive assessed 07/26/23 08/06/23 11:59 Currently or been in a relationship where the following occur: no concerns reported Const General: no acute distress and alert [facility] Throat: Yes posterior oropharynx normal and Yes tonsils normal (no TP congestion noted) Neck Neck: Yes no lymphadenopathy and Yes supple Thyroid: Thyroid normal Resp Auscultation: no rales, rhonchi (scattered) throughout, wheezes expiratory wheezes and diminished lung sounds bilateral Cardio Rate: regular rate Rhythm: regular rhythm Heart sounds: Murmur heart sound present systolic mid, III/ and at the apex GI Palpation (GI): Soft to palpation and nontender Auscultation: normal bowel sounds Back/Spine/Pelvis Cervical Spine: Cervical spine tenderness Thoracic/Lumbar Spine: lumbar spinal tenderness Extrem General: Yes no clubbing, cyanosis or edema Assessment and Plan Assessment & Plan (1) Pneumonia: Code(s): J18.9 - Pneumonia, unspecified organism Qualifiers: Laterality: right Lung location: unspecified part of lung Pneumonia type: due to unspecified organism Qualified Code(s): J18.9 - Pneumonia, unspecified organism Plan: S/P Tx with Abx Will have her get repeat chest x-rays in 3 weeks to follow up on the right parahilar opacity (patchy infiltrate vs lung nodule) seen on her x-rays done at the ER a couple of weeks ago (2) COPD exacerbation: Code(s): J44.1 - Chronic obstructive pulmonary disease with (acute) exacerbation Plan: She also recently finished her Abx and oral prednisone taper although she still sounds congested / tight and has frequent expiratory wheezing Will start her on Pulmicort Flexhaler 180 mg 2 inhalations BID Continue Spiriva Handihaler 18 mcg inhale contents of 1 capsule QD and Albuterol HFA 2 inhalations Q 6 hours PRN Follow up with pulmonary as scheduled (3) Acute hyponatremia: Code(s): E87.1 - Hypo-osmolality and hyponatremia Plan: Continue Sodium chloride tablets 1000 mg BID Will send patient to recheck her labs and serum sodium level LITTLE for follow up Will also refer her to nephrology for further evaluation and management (4) Pure hypercholesterolemia: Code(s): E78.00 - Pure hypercholesterolemia, unspecified Plan: Reinforced low cholesterol diet Continue Simvastatin 40 mg QD Will recheck her labs and fasting lipids in a couple of weeks as scheduled for follow up (5) Benign essential hypertension: Code(s): I10 - Essential (primary) hypertension Plan: Reinforced low sodium diet - goal is systolic BP of at least 120 to 130 mm or less Continue Lisinopril 5 mg QD (6) Pulmonary nodule: Comment: (8mm MARIA ELENA nodule remains stable on 2013 LDCT) Code(s): R91.1 - Solitary pulmonary nodule Plan: Follow up with pulmonary as scheduled for continuing surveillance CT lung screening done on 04/23/2022 revealed (+) mild emphysema and unchanged 0.8 cm left upper lobe pulmonary nodule. There is a somewhat nodular appearance along the right hemidiaphragm which measures fat attenuation, which could represent a hamartoma. This is also unchanged. Recommend routine annual low- dose CT screening in 12 months (7) Mitral valve prolapse: Code(s): I34.1 - Nonrheumatic mitral (valve) prolapse Plan: Transesophageal echocardiogram done on 10/03/20 showed normal LV systolic and diastolic function, moderately severe MR and severe mitral prolapse Repeat echocardiogram done in 04/2022 and on 10/14/2022 revealed no significant changes - ?normal LV systolic function, with mildly dilated left atrium, prolapse of the middle posterior scallop with moderately severe eccentric mitral regurgitation, normal RV systolic pressure and no gross pericardial effusion Patient currently has no clinical signs of heart failure although she continues to complain of?some shortness of breath with exertion? Will need endocarditis prophylactic prior to any dental work? Follow up with cardiology as scheduled (8) Impaired fasting glucose: Code(s): R73.01 - Impaired fasting glucose Plan: HgbA1c was normal at 5.5% on her labs done a couple of months ago; was previously at 5.1% Reinforced low calorie diet (9) Gastroparesis: Comment: Gastric Emptying Study = Abnormal - 13% retention of food by 4 hours. - 10/30/2020) Code(s): K31.84 - Gastroparesis Plan: Follow up with GI as scheduled Patient reminded to eat small frequent feedings instead of eating 3 large meals a day to help minimize some of her GI symptoms Advised that there is currently no effective treatment or medications for gastroparesis Follow-up with GI as scheduled (10) GERD (gastroesophageal reflux disease): Code(s): K21.9 - Gastro-esophageal reflux disease without esophagitis Qualifiers: Esophagitis presence: without esophagitis Qualified Code(s): K21.9 - Gastro-esophageal reflux disease without esophagitis Plan: Dietary restrictions reinforced Continue Pantoprazole 40 mg QD and Sucralfate 2 gm QD at noon (11) Rectal bleeding: Code(s): K62.5 - Hemorrhage of anus and rectum Plan: Recurrent - is most likely due to her anal/perianal irritation from her frequent bouts of loose stools and her rectal prolapse Colonoscopy was last done in [address] 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 Laughlin on 10/01/22 and was advised that she should be more watchful of her diet and that her frequent loose stools from her dietary indiscretions are what is aggravating her current condition Has been instructed to use Silvadene cream and Canasa suppositories as needed to help calm down/alleviate her chronic anal irritation and she will be seen again in a few months for reassessment (13) Anemia: Code(s): D64.9 - Anemia, unspecified Qualifiers: Anemia type: iron deficiency Iron deficiency anemia type: inadequate dietary iron intake Qualified Code(s): D50.8 - Other iron deficiency anemias Plan: Corrected with oral iron supplements Continue FeSO4 325 mg QD Will recheck her CBC in a couple of weeks as scheduled for follow up (14) Facet arthritis of lumbar region: Comment: (+Hx of old L5 compression fracture) Code(s): M47.816 - Spondylosis without myelopathy or radiculopathy, lumbar region Plan: Reinforced activity and weight lifting restrictions to avoid aggravating her lower back Continue Oxycodone 5 mg 1 to 2 times a day as needed for severe pain (15) Cervical spondylosis: Code(s): M47.812 - Spondylosis without myelopathy or radiculopathy, cervical region Plan: Continue Ibuprofen 600 mg TID with food PRN and Cyclobenzaprine 5 mg TID PRN (16) Vitamin D deficiency: Code(s): E55.9 - Vitamin D deficiency, unspecified Plan: Continue Vitamin D3 2000 units QD (17) Osteopenia: Onset Date: ~2011 Comment: (Bone Dexa: T-Score -1.3 lumbar - 12/18/2011) Code(s): M85.80 - Other specified disorders of bone density and structure, unspecified site Qualifiers: Osteopenia location: unspecified Qualified Code(s): M85.80 - Other specified disorders of bone density and structure, unspecified site Plan: BMD last done in 2011 and has not had repeat BMD done since (last one ordered in 2013 was not done for unclear reasons) Will need to get this updated again soon, once her current and more pressing issues (particularly her rectal bleeding) are addressed and controlled (18) Overactive bladder: Code(s): N32.81 - Overactive bladder Plan: Continue Vesicare 10 mg QD - states that Rx has helped a lot with her symptoms (19) Anxiety: Code(s): F41.9 - Anxiety disorder, unspecified Plan: Continue Lorazepam 1 mg BID PRN and Hydroxyzine 50 mg Q HS (20) Depression: Code(s): F32.9 - Major depressive disorder, single episode, unspecified Qualifiers: Depression Type: major depressive disorder Major depression recurrence: recurrent Active/Remission status: currently active Major depression episode severity: unspecified Qualified Code(s): F33.9 - Major depressive disorder, recurrent, unspecified Plan: Continue Escitalopram 20 mg QD and Mirtazapine 30 mg Q HS Follow up with psychiatry as scheduled Plan Follow up as scheduled in 4 weeks Orders: Orders Complete Blood Count Auto Diff 08/06/23 D64.9 - Anemia, unspecified, E87.1 - Hypo-osmolality and hyponatremia Comprehensive Met. Panel 08/06/23 E87.1 - Hypo-osmolality and hyponatremia TSH reflex Free T4 08/06/23 E78.00 - Pure hypercholesterolemia, unspecified, E87.1 - Hypo-osmolality and hyponatremia UA CC w/rflx Micro + Cult 08/06/23 E87.1 - Hypo-osmolality and hyponatremia, R30.0 - Dysuria Osmolality, Serum 08/06/23 E87.1 - Hypo-osmolality and hyponatremia XR chest 2V 08/24/23 R91.8 - Other nonspecific abnormal finding of lung field Referrals Nephrology Referral E87.1 - Hypo-osmolality and hyponatremia Medications: New Pulmicort Flexhaler 180 mcg/actuation (budesonide) 2 inhalations inhalation BID 30 days 1 ea 5RF NS Coding Level of Care Code TCM Mod MDM <= 14 Days Diagnoses Pneumonia J18.9 Laterality: right Lung location: unspecified part of lung Pneumonia type: due to unspecified organism COPD exacerbation J44.1 Acute hyponatremia E87.1 Pure hypercholesterolemia E78.00 Benign essential hypertension I10 Pulmonary nodule R91.1 Mitral valve prolapse I34.1 Impaired fasting glucose R73.01 Gastroparesis K31.84 Gastroesophageal reflux disease without esophagitis K21.9 Esophagitis presence: without esophagitis Rectal bleeding K62.5 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 Iron deficiency anemia secondary to inadequate dietary iron intake D50.8 Anemia type: iron deficiency Iron deficiency anemia type: inadequate dietary iron intake 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 Cervical spondylosis M47.812 Vitamin D deficiency E55.9 Osteopenia, unspecified location M85.80 Osteopenia location: unspecified Overactive bladder N32.81 Anxiety F41.9 Episode of recurrent major depressive disorder, unspecified depression episode severity F33.9 Depression Type: major depressive disorder Major depression recurrence: recurrent Active/Remission status: currently active Major depression episode severity: unspecified
[2023-08-06 11:59] VITALS: BP 140/88; PULSE 91; O2SAT 96; BMI 23.2
== END 2023-08-06 13:02 | disposition home or self-care (01) ==
PROVIDERS: PCP Internal Medicine; Visit Provider Internal Medicine
DX: J18.9 Pneumonia, unspecified organism (principal); J44.1 Chronic obstructive pulmonary disease with (acute) exacerbation; F33.9 Major depressive disorder, recurrent, unspecified; E87.1 Hypo-osmolality and hyponatremia; E78.00 Pure hypercholesterolemia, unspecified; I10 Essential (primary) hypertension; R91.1 Solitary pulmonary nodule; I34.1 Nonrheumatic mitral (valve) prolapse; R73.01 Impaired fasting glucose; K31.84 Gastroparesis; K21.9 Gastro-esophageal reflux disease without esophagitis; K62.5 Hemorrhage of anus and rectum
CPT/HCPCS: 99214

== ENCOUNTER 2023-08-06 13:55 | Outpatient (REF) | payer MEDICARE, MEDICAID, SELFPAY ==
[2023-08-06 14:24] LABS: MANUAL DIFF FLAG NO
[2023-08-06 15:02] LABS: Basophils Absolute Auto 0.1 X10*3/uL (0.0-0.2); Basophils Percent Auto 0.8 % (0-2); Eosinophils Absolute Auto 0.1 X10*3/uL (0.0-0.4); Eosinophils Percent Auto 2.2 % (0-4); Hematocrit 37.5 % (37.0-47.0); Hemoglobin 12.2 g/dl (12.0-16.0); Imm Gran Abs Auto 0.03 X10*3/uL (0.00-0.03); Imm Gran Pct Auto 0.5 % (0.0-0.4); Lymphocytes Absolute Auto 2.1 X10*3/uL (1.2-4.9); Lymphocytes Percent Auto 31.9 % (20-40); Mean Corpuscular HGB Conc 32.5 g/dl (31.0-35.0); Mean Corpuscular Hemoglobin 28.2 pg (27.0-33.0); Mean Corpuscular Volume 86.6 fL (80.0-98.0); Mean Platelet Volume 8.3 fL (9.4-12.3); Monocytes Absolute Auto 0.5 X10*3/uL (0.1-1.2); Monocytes Percent Auto 7.8 % (2-11); Neutrophils Absolute Auto 3.7 x10*3/uL (2.0-8.3); Neutrophils Percent Auto 56.8 % (45-73); Platelet Count 189 X10*3/uL (160-400); Red Blood Count 4.33 X10*6/uL (4.20-5.50); Red Cell Distribution Width 15.2 % (11.0-16.0); White Blood Count 6.4 X10*3/uL (4.8-10.8)
[2023-08-06 15:13] LABS: Estimated Average Glucose 123 mg/dL; Hemoglobin A1c % 5.9 % (<6.0)
[2023-08-06 15:44] LABS: Osmolality, Serum 288 mosm/kg (281-305)
[2023-08-06 15:47] LABS: Appearance Urine Clear; Color Urine Yellow; Glucose Urine UA Negative (Negative); Leukocyte Esterase Urine Negative (Negative); Nitrite Urine Negative (Negative); PH 6.5 (5.0-9.0); Urine Blood Negative (Negative); Urine Ketones Negative (Negative); Urine Protein Negative (Neg-Trace)
[2023-08-06 15:54] LABS: Alanine Aminotransferase 9 U/L (0-31); Albumin Level 3.8 g/dL (3.5-5.0); Alkaline Phosphatase 56 U/L (39-117); Anion Gap 13 (12-20); Aspartate Amino Transferase 17 U/L (5-31); Bilirubin Total 0.3 mg/dL (0.0-1.0); Blood Urea Nitrogen 14 mg/dL (9-16); Carbon Dioxide 24 mmol/L (22-29); Chloride 105 mmol/L (96-108); Cholesterol 180 mg/dL (<200); Estimated Glomerular Filt Rate > 60; Glucose Fasting 112 mg/dL (60-99); Glucose Random 111 mg/dL (60-115); HDL Cholesterol 53 mg/dL (>40); LDL Cholesterol Calculated 106 mg/dL (<100); Potassium 4.7 mmol/L (3.3-5.1); Sodium 137 mmol/L (135-145); Total Protein 6.4 g/dL (6.5-8.0); Triglycerides 106 mg/dL (<150)
[2023-08-06 16:07] LABS: TSH reflex Free T4 2.28 uIU/mL (0.32-4.0); Vitamin D 25-OH Total 29.3 ng/mL (>30)
== END 2023-08-06 13:56 | disposition home or self-care (01) ==
LOC: HO.LAB 13:55
PROVIDERS: PCP Internal Medicine; Visit Provider Internal Medicine
DX: Z00.00 Encounter for general adult medical examination without abnormal findings (principal); E78.00 Pure hypercholesterolemia, unspecified; E55.9 Vitamin D deficiency, unspecified; D64.9 Anemia, unspecified; R30.0 Dysuria; E87.1 Hypo-osmolality and hyponatremia; R73.01 Impaired fasting glucose
CPT/HCPCS: 36415; 80053; 80061; 81003; 82306; 83036; 83930; 84443; 85025

== ENCOUNTER 2023-08-09 08:26 | Emergency (ER) | payer MEDICARE, MEDICAID, SELFPAY ==
--- NOTE | ~2023-08-09 | XR_ITS ---
EXAMINATION: XR CHEST CLINICAL INFORMATION: Shortness of breath COMPARISON: Previous chest x-rays most recent July [address] most recent June 2023 TECHNIQUE: 2 views of the chest were obtained. FINDINGS: The cardiac and mediastinal contours are stable. Left upper lobe nodule unchanged. Right suprahilar opacity unchanged. Lungs are otherwise clear. No pleural effusion or pneumothorax. Degenerative changes of the spine. XR/XR chest 2V IMPRESSION: No change in right suprahilar opacity from recent chest x-ray. Question pneumonia versus mass. Follow-up chest CT with IV contrast recommended.
[2023-08-09 08:30] VITALS: BP 169/92; PULSE 73; RESP 16; TEMP 37.3; O2SAT 99; BMI 24.8
--- NOTE | 2023-08-09 08:46 | ED_ITS ---
HPI - SOB/Dyspnea General Chief Complaint: Dyspnea Stated Complaint: sob Time Seen by Provider: 08/09/23 08:42 Source: patient and old records reviewed Mode of arrival: ambulatory Limitations: no limitations History of Present Illness HPI Narrative: 62 yo female with history of bronchitis, IVDA, COPD, HTN, HLD, anemia, GERD, IBS, gastroparesis, anxiety, depression and 2 recent admissions to [facility] in July for COPD who presents to the ER for evaluation of SOB w/ productive cough for the last 2-3 days. She was seen by her PCP on 08/05 when she started to not feel well. She was started on Pulmicort but says it never got to her pharmacy. She reports SAMUELS more than usual, fatigue, and generally not feeling well. Cough is productive of white and yellow phlegm. No fevers. No chest pain other than when she is coughing. She states after the hospital she was not prescribed any abx or steroids. She does not have a nebulizer at home, only ventolin and spiriva. MD elicited complaint: shortness of breath and cough Pertinent past history: COPD Onset (ago): day(s) Context: recent illness Timing: progressively worsening Severity: moderate Exacerbating factors: exertion and coughing Relieving factors: rest and bronchodilators Known history of: COPD Associated symptoms: cough, sputum production and chest congestion Treatment prior to arrival: none Related Data Home oxygen amount: none Home Medications ?Medication ?Instructions ?Recorded ?Confirmed alosetron 0.5 mg tablet 1 mg PO DAILY@89907/22/23 08/07/23 cholecalciferol (vitamin D3) 50 50 mcg PO DAILY@89907/22/23 08/07/23 mcg (2,000 unit) capsule ferrous sulfate 325 mg (65 mg 325 mg PO DAILY@89907/22/23 08/07/23 iron) tablet (Feosol) losartan 25 mg tablet 25 mg PO DAILY@89907/22/23 08/07/23 metoclopramide HCl 5 mg tablet 5 mg PO TIDAC 07/22/23 08/07/23 (Reglan) metoprolol succinate 50 mg 50 mg PO DAILY@89907/22/23 08/07/23 tablet,extended release 24 hr pantoprazole 40 mg tablet,delayed 40 mg PO DAILY@0607/22/23 08/07/23 release solifenacin 10 mg tablet 10 mg PO DAILY@0900 07/22/23 08/07/23 tiotropium bromide 18 mcg capsule 1 cap inhalation DAILY@0900 copd 07/22/23 08/07/23 with inhalation device (Spiriva with HandiHaler) sucralfate 1 gram tablet (Carafate) 4 g PO DAILY@1200 07/25/23 08/07/23 Previous Rx's ?Medication ?Instructions ?Recorded ibuprofen 600 mg tablet 600 mg PO Q8H PRN pain 30 days #90 09/27/21 tabs cyclobenzaprine 5 mg tablet 5 mg PO TID PRN muscle spasm 30 06/20/22 days #90 tabs mirtazapine 30 mg tablet 30 mg PO BEDTIME 90 days #90 tabs 11/11/22 albuterol sulfate 90 mcg/actuation 1 puff PO Q6H PRN shortness of 03/20/23 aerosol inhaler (Ventolin HFA) breath or wheezing 30 days #8.5 grams simvastatin 40 mg tablet 40 mg PO BEDTIME #90 tabs 04/24/23 hydroxyzine HCl 50 mg tablet 50 mg PO BEDTIME #90 tabs 05/21/23 lorazepam 1 mg tablet 1 mg PO BID PRN anxiety 28 days 07/13/23 #56 tabs hydrocortisone 2.5 % topical cream 1 appl topical BID PRN itching #30 07/24/23 grams dextromethorphan-guaifenesin 10 10 ml PO TID PRN cough #237 mL 07/29/23 mg-100 mg/5 mL oral syrup sodium chloride 1,000 mg soluble 1,000 mg PO BID #14 tabs 07/29/23 tablet aspirin 81 mg tablet,delayed 81 mg PO DAILY #90 tabs 08/02/23 release escitalopram oxalate 20 mg tablet 20 mg PO DAILY 90 days #90 tabs 08/04/23 oxycodone 5 mg tablet 5 mg PO .1-2 times daily PRN pain 08/04/23 10 days #20 tabs Pulmicort Flexhaler 180 2 inh inhalation BID 30 days #1 ea 08/06/23 mcg/actuation breath activated (budesonide) amoxicillin 875 mg-potassium 1 tab PO BID #14 tabs 08/09/23 clavulanate 125 mg tablet azithromycin 250 mg tablet See Rx Instructions PO .COMPLEX #6 05/05/24 (Zithromax Z-Talon) tabs budesonide 180 mcg/actuation 2 inh inhalation BID #1 ea 08/09/23 breath activated powder inhaler (Pulmicort Flexhaler) prednisone 10 mg tablets in a dose See Rx Instructions .Route 08/09/23 pack .COMPLEX #48 ea Allergies Allergy/AdvReac Type Severity Reaction Status Date / Time No Known Allergies Allergy Unknown unknown Verified 08/09/23 08:33 [NO KNOWN ALLERGIES] Review of Systems 2 Review of Systems: Yes all other systems are reviewed and are negative [facility] Past Medical History Medical History Rectal prolapse Bronchitis Nicotine dependence, cigarettes, uncomplicated Nonrheumatic mitral (valve) insufficiency Pulmonary nodule History of hepatitis C Osteopenia (~2011) COPD (chronic obstructive pulmonary disease) IV drug user Endocarditis of mitral valve (~11/2017) Mitral valve prolapse Mitral regurgitation Early satiety Paresthesia of left leg Allergic rhinitis Facet arthritis of lumbar region Cervical spondylosis Vitamin D deficiency Pure hypercholesterolemia Benign essential hypertension Depression GERD (gastroesophageal reflux disease) Anxiety Surgical History History of liver biopsy (~2009) History of partial colectomy (~2014) History of hysteroscopy (~2010) History of colonoscopy (~2017) Family History Family History Father Internal bleeding Mother Medical history unknown Social History Social History Household Members: None Housing: House Housing Other:: lives alone with her cat Malena Do you presently have visiting nurse or other home services: Yes Alcohol intake: former Patient Tobacco Use Status: Current everyday Tobacco user Tobacco use type: Cigarette Cigarette Packs Per Day: 0.5 Cigarettes Per Day: 10 Years Smoked: 45 years (onset 15, 1/2-3/4ppd x 44yrs, 28pyh) Smoked in Last 30 Days: Yes e-Cigarette/Vaping Use: Never Used Second Hand Smoke Exposure: Yes Use of substances other than those prescribed or required for medical reasons: No Substance Use Type: Marijuana Advance Directives: Yes Advance Directives on File: Yes Advance Directives Date on File: 12/18/21 Do you have a plan to hurt others: No Plan service: No Current occupational status: unemployed Sexual orientation: Straight/Heterosexual Gender identity: Female Cognitive needs: No Hearing needs: No Vision needs: Yes Physical Exam 2 Vital Signs: Vital Signs: Last Vital Signs Temp 99 F 08/09/23 11:12 Pulse 73 08/09/23 11:12 Resp 18 08/09/23 11:12 BP 169/92 H 08/09/23 11:12 Pulse Ox 99 08/09/23 11:12 O2 Del Method Room Air 08/09/23 11:12 BMI result Body Mass Index 24.8 Appearance: Alert. Oriented X3. No acute distress. Head: normocephalic, atraumatic. Eyes: Pupils equal, round and reactive to light. ENT: Pharynx normal. No tonsillar swelling or exudate. Neck: Normal inspection. Neck supple. CVS: Normal heart rate and rhythm. Pulses normal. Respiratory: No respiratory distress. Breath sounds coarse throughout but no wheezes, rhonchi or rales. able to speak in complete sentences. Abdomen: Soft and nontender. +BS x4 Skin: Skin warm and dry. Normal skin color. Normal skin turgor. No rashes. Extremities: No lower extremity edema. No joint swelling. Neuro/psych: Oriented X 3. No motor deficit. No sensory deficit. CN II-XII intact. Normal speech and cognition. Medical Decision Making Medical Decision Making MDM Narrative: 62-year-old female with history of COPD, active smoker who presents to the ER for evaluation of worsening shortness of breath, dyspnea on exertion and productive cough for last 2 or 3 days. She was discharged from the hospital over a week ago and started feeling unwell again 3 days ago. On arrival to the ER she is saturating 99-100% on room air. No wheezing on examination, but she does have some coarse lung sounds. She has a congested cough. No need for ED bronchodilator protocol at this time. She is breathing comfortably. Chest x- ray performed which is showing persistent right perihilar opacity, this is most likely residual from her recent pneumonia. This will take weeks to radiographically resolved. Her lab work is reassuring with no leukocytosis. Her sodium is normal. Will plan to treat for acute bronchitis, possible lingering pneumonia with another course of antibiotics, will treat with steroids this time given her COPD and coarse lung sounds. She was advised to stop smoking. She will follow up with her primary care doctor return precautions were discussed. Stable for discharge home. Differential Diagnosis Differential Diagnoses: The differential diagnosis associated with the presentation includes Acute COPD exacerbation, hospital-acquired pneumonia, bronchitis, community- acquired pneumonia, aspiration pneumonia, viral syndrome Admission/Observation Consideration of admission/observation: Escalation of care including admission/observation considered Lab Data MDM Lab Attestation statement: I reviewed the patient's lab results. No leukocytosis, mild hyperglycemia, normal renal function 08/09/23 08:57 08/09/23 08:57 Labs: Lab Results 08/09/23 Range/Units 08:57 WBC 5.1 (4.8-10.8) X10*3/uL RBC 4.56 (4.20-5.50) X10*6/uL Hgb 13.1 (12.0-16.0) g/dl Hct 39.3 (37.0-47.0) % MCV 86.2 (80.0-98.0) fL MCH 28.7 (27.0-33.0) pg MCHC 33.3 (31.0-35.0) g/dl RDW 15.1 (11.0-16.0) % Plt Count 185 (160-400) X10*3/uL MPV 8.5 L (9.4-12.3) fL Immature Gran % (Auto) 0.6 H (0.0-0.4) % Neut % (Auto) 58.8 (45-73) % Lymph % (Auto) 27.8 (20-40) % [place] % (Auto) 8.5 (2-11) % Eos % (Auto) 3.1 (0-4) % Baso % (Auto) 1.2 (0-2) % Lymph # (Auto) 1.4 (1.2-4.9) X10*3/uL [place] # (Auto) 0.4 (0.1-1.2) X10*3/uL Eos # (Auto) 0.2 (0.0-0.4) X10*3/uL Baso # (Auto) 0.1 (0.0-0.2) X10*3/uL Abs Immat Gran (auto) 0.03 (0.00-0.03) X10*3/uL Absolute Neuts (auto) 3.0 (2.0-8.3) x10*3/uL Absolute Nucleated RBC 0.000 (0.0-0.012) X10*3/uL Nucleated RBC % (auto) 0.0 (0.0-0.2) /100WBC Sodium 135 (135-145) mmol/L Potassium 4.1 (3.3-5.1) mmol/L Chloride 101 (96-108) mmol/L Carbon Dioxide 22 (22-29) mmol/L Anion Gap 16 (12-20) BUN 15 (9-16) mg/dL Creatinine 0.71 (0.5-1.4) mg/dL Estim Creat Clear Calc 64.4 Estimated GFR > 60 Random Glucose 142 H (60-115) mg/dL Calcium 9.1 (8.4-10.2) mg/dL Magnesium 1.9 (1.6-2.6) mg/dL Total Bilirubin 0.5 (0.0-1.0) mg/dL AST 18 (5-31) U/L ALT 11 (0-31) U/L Alkaline Phosphatase 56 (39-117) U/L Troponin I High Sens 4.8 D (<3.5-17.0) ng/L Total Protein 6.8 (6.5-8.0) g/dL Albumin 4.0 (3.5-5.0) g/dL Influenza Type A (PCR) NEGATIVE (Negative) Influenza Type B (PCR) NEGATIVE (Negative) RSV RNA Qual (PCR) NEGATIVE (Negative) SARS-CoV-2 RNA (RT-PCR) NEGATIVE (Negative) Independent Interpretation I performed an independent interpretation of an: EKG and Plain X-Ray Interpretation: Chest x-ray with right perihilar opacity, similar to prior. EKG with normal sinus rhythm, ventricular rates 68 beats per minute, artifact present, normal QTc Radiology Impression Discussion of test interpretation with radiology: I have reviewed the radiologist's reading. Radiologist Impression: XR/XR chest 2V IMPRESSION: No change in right suprahilar opacity from recent chest x-ray. Question pneumonia versus mass. Follow-up chest CT with IV contrast recommended. External Record Review External record reviewed: Inpatient record, Office record, Outpatient record, Prior outpatient labs and Prior outpatient radiology Tests considered The following testing was considered but not selected: CT chest considered, not performed, too soon from recent admission Prescription Management I considered prescription management with: Antibiotic Chronic Conditions Patient?s care impacted by: Other (COPD) Critical Care Time Critical Care Time Critical Care Time: No Discharge Plan Discharge Clinical Impression: Bronchitis Patient Disposition: Home, Self-Care Instructions: Acute Bronchitis (ED) Additional Instructions: Your chest x-ray showed persistent right sided infiltrate. This will take weeks to resolve on x-ray. You will need repeat imaging in the future to make sure it resolves. Take the prescribed antibiotics as directed, complete the entire course and do not miss any doses Take the prescribed prednisone taper as directed Start the Pulmicort inhaler after you are done with the prednisone taper. Follow up with your doctor If you develop new or worsening symptoms call 911 or come back to the ER for further evaluation. Prescriptions: New azithromycin [Zithromax Z-Talon] 250 mg tablet See Rx Instructions .ROUTE .COMPLEX Qty: 6 0RF Rx Instructions: take 500 mg today (day 1), then 250 mg for 4 days (days 2-5) amoxicillin-pot clavulanate 875-125 mg tablet 1 tab PO BID Qty: 14 0RF prednisone 10 mg tablets,dose pack See Rx Instructions .ROUTE .COMPLEX Qty: 48 0RF Taper: Prednisone 40 mg daily for 3 Days and 0 Hour 30 mg daily for 3 Days and 0 Hour 20 mg daily for 3 Days and 0 Hour 10 mg daily for 3 Days and 0 Hour Rx Instructions: See Taper orally ;40 mg Daily x3 days, 30 mg daily x3 days, 20 mg daily x3 days, 10 mg daily x3 days. discard remainder Pulmicort Flexhaler 180 mcg/actuation aerosol powdr breath activated 2 inh inhalation BID Qty: 1 0RF No Action ibuprofen 600 mg tablet 600 mg PO Q8H PRN (Reason: pain) 30 Days Qty: 90 1RF Rx Instructions: take with food cyclobenzaprine 5 mg tablet 5 mg PO TID PRN (Reason: muscle spasm) 30 Days Qty: 90 1RF albuterol sulfate [Ventolin HFA] 90 mcg/actuation HFA aerosol inhaler 1 puff PO Q6H PRN (Reason: shortness of breath or wheezing) 30 Days Qty: 8.5 3RF simvastatin 40 mg tablet 40 mg PO BEDTIME Qty: 90 1RF hydroxyzine HCl 50 mg tablet 50 mg PO BEDTIME Qty: 90 1RF lorazepam 1 mg tablet 1 mg PO BID PRN (Reason: anxiety) 28 Days Qty: 56 0RF aspirin 81 mg tablet,delayed release (DR/EC) 81 mg PO DAILY Qty: 90 3RF escitalopram oxalate 20 mg tablet 20 mg PO DAILY 90 Days Qty: 90 1RF oxycodone 5 mg tablet 5 mg PO .1-2 times daily PRN (Reason: pain) 10 Days Qty: 20 0RF metoprolol succinate 50 mg tablet extended release 24 hr 50 mg PO DAILY@0900 metoclopramide HCl [Reglan] 5 mg tablet 5 mg PO TIDAC pantoprazole 40 mg tablet,delayed release (DR/EC) 40 mg PO DAILY@0630 ferrous sulfate [Feosol] 325 mg (65 mg iron) tablet 325 mg PO DAILY@0900 losartan 25 mg tablet 25 mg PO DAILY@0900 alosetron 0.5 mg tablet 1 mg PO DAILY@0900 tiotropium bromide [Spiriva with HandiHaler] 18 mcg capsule, w/inhalation device 1 cap inhalation DAILY@0900 Rx Instructions: puncture 1 cap using device; one dose = 2 inhalations solifenacin 10 mg tablet 10 mg PO DAILY@0900 cholecalciferol (vitamin D3) 50 mcg (2,000 unit) capsule 50 mcg PO DAILY@0900 Rx Instructions: 1 capsule Orally Once a day hydrocortisone 2.5 % cream 1 appl topical BID PRN (Reason: itching) Qty: 30 0RF sucralfate [Carafate] 1 gram tablet 4 g PO DAILY@1200 dextromethorphan-guaifenesin 10-100 mg/5 mL Syrup 10 ml PO TID PRN (Reason: cough) Qty: 237 0RF sodium chloride 1,000 mg Tablet,Soluble 1,000 mg PO BID Qty: 14 0RF mirtazapine 30 mg tablet 30 mg PO BEDTIME 90 Days Qty: 90 1RF Pulmicort Flexhaler 180 mcg/actuation aerosol powdr breath activated 2 inh inhalation BID 30 Days Qty: 1 5RF Referrals: Sarthak Person MD [Primary Care Provider] - Stand Alone Forms: Work/School Release Interventions: ED Discharge Assessment Last Done: 08/09/23 11:12 Discharge Date/Time: 08/09/23 11:13 Print Language: Yoruba
--- NOTE | 2023-08-09 08:55 | ECG_ITS ---
Test Reason : SOB Blood Pressure : / mmHG Vent. Rate : 068 BPM Atrial Rate : 068 BPM P-R Int : 204 ms QRS Dur : 102 ms QT Int : 428 ms P-R-T Axes : 023 -41 060 degrees QTc Int : 455 ms Artifact in tracing Sinus rhythm with occasional Premature ventricular complexes Left axis deviation Abnormal ECG When compared with ECG of 26-JUL-2023 13:41, Premature supraventricular complexes are no longer Present Referred By: Елена Puga Electronically Signed By:CHRISTELLE HESS
[2023-08-09 09:00] LABS: MANUAL DIFF FLAG NO
[2023-08-09 09:03] LABS: Basophils Absolute Auto 0.1 X10*3/uL (0.0-0.2); Basophils Percent Auto 1.2 % (0-2); Eosinophils Absolute Auto 0.2 X10*3/uL (0.0-0.4); Eosinophils Percent Auto 3.1 % (0-4); Hematocrit 39.3 % (37.0-47.0); Hemoglobin 13.1 g/dl (12.0-16.0); Imm Gran Abs Auto 0.03 X10*3/uL (0.00-0.03); Imm Gran Pct Auto 0.6 % (0.0-0.4); Lymphocytes Absolute Auto 1.4 X10*3/uL (1.2-4.9); Lymphocytes Percent Auto 27.8 % (20-40); Mean Corpuscular HGB Conc 33.3 g/dl (31.0-35.0); Mean Corpuscular Hemoglobin 28.7 pg (27.0-33.0); Mean Corpuscular Volume 86.2 fL (80.0-98.0); Mean Platelet Volume 8.5 fL (9.4-12.3); Monocytes Absolute Auto 0.4 X10*3/uL (0.1-1.2); Monocytes Percent Auto 8.5 % (2-11); Neutrophils Percent Auto 58.8 % (45-73); Platelet Count 185 X10*3/uL (160-400); Red Blood Count 4.56 X10*6/uL (4.20-5.50); Red Cell Distribution Width 15.1 % (11.0-16.0); White Blood Count 5.1 X10*3/uL (4.8-10.8)
--- NOTE | 2023-08-09 09:06 | PC.NURSE ---
Called lab stating they will add troponin as an add on
[2023-08-09 09:33] LABS: Alanine Aminotransferase 11 U/L (0-31); Alkaline Phosphatase 56 U/L (39-117); Anion Gap 16 (12-20); Aspartate Amino Transferase 18 U/L (5-31); Bilirubin Total 0.5 mg/dL (0.0-1.0); Blood Urea Nitrogen 15 mg/dL (9-16); Calcium 9.1 mg/dL (8.4-10.2); Carbon Dioxide 22 mmol/L (22-29); Chloride 101 mmol/L (96-108); Creatinine Clr Calc Pharmacy 64.4; Estimated Glomerular Filt Rate > 60; Glucose Random 142 mg/dL (60-115); Magnesium 1.9 mg/dL (1.6-2.6); Potassium 4.1 mmol/L (3.3-5.1); Sodium 135 mmol/L (135-145); Total Protein 6.8 g/dL (6.5-8.0)
[2023-08-09 09:42] LABS: Influenza A PCR NEGATIVE (Negative); Influenza B PCR NEGATIVE (Negative); Resp Syncy Virus RNA Qual PCR NEGATIVE (Negative); SARS COV2 PCR INHOUSE NEGATIVE (Negative); Troponin-I High Sensitivity 4.8 ng/L (<3.5-17.0)
[2023-08-09 11:12] VITALS: BP 169/92; PULSE 73; RESP 18; TEMP 37.2; O2SAT 99
== END 2023-08-09 11:13 | disposition home or self-care (01) ==
PROVIDERS: Physician Assistant; Emergency Provider Emergency Medicine; PCP Internal Medicine
DX: J40 Bronchitis, not specified as acute or chronic (principal); J44.9 Chronic obstructive pulmonary disease, unspecified; I10 Essential (primary) hypertension; F17.210 Nicotine dependence, cigarettes, uncomplicated
CPT/HCPCS: 0241U; 36415; 71046; 80053; 83735; 84484; 85025; 93005; 99283; 99284

== ENCOUNTER → 2023-08-09 08:55 | Outpatient (BNV) | payer MEDICARE, MEDICAID, SELFPAY | PROVIDERS: Emergency Provider Emergency Medicine; PCP Internal Medicine; Visit Provider Internal Medicine | DX: I49.3 Ventricular premature depolarization (principal) | CPT/HCPCS: 93010 ==

== ENCOUNTER 2023-08-10 09:26 | Emergency (ER) | payer MEDICARE, MEDICAID, SELFPAY ==
[2023-08-10 09:55] VITALS: BP 109/76; PULSE 72; RESP 20; TEMP 36.7; O2SAT 98; BMI 22.9
[2023-08-10 10:34] LABS: MANUAL DIFF FLAG NO
[2023-08-10 10:37] LABS: Basophils Absolute Auto 0.1 X10*3/uL (0.0-0.2); Basophils Percent Auto 0.9 % (0-2); Eosinophils Absolute Auto 0.1 X10*3/uL (0.0-0.4); Eosinophils Percent Auto 2.1 % (0-4); Hematocrit 38.3 % (37.0-47.0); Hemoglobin 12.8 g/dl (12.0-16.0); Imm Gran Abs Auto 0.02 X10*3/uL (0.00-0.03); Imm Gran Pct Auto 0.4 % (0.0-0.4); Lymphocytes Absolute Auto 1.4 X10*3/uL (1.2-4.9); Lymphocytes Percent Auto 25.5 % (20-40); Mean Corpuscular HGB Conc 33.4 g/dl (31.0-35.0); Mean Corpuscular Hemoglobin 28.2 pg (27.0-33.0); Mean Corpuscular Volume 84.4 fL (80.0-98.0); Mean Platelet Volume 8.3 fL (9.4-12.3); Monocytes Absolute Auto 0.4 X10*3/uL (0.1-1.2); Monocytes Percent Auto 8.3 % (2-11); Neutrophils Absolute Auto 3.3 x10*3/uL (2.0-8.3); Neutrophils Percent Auto 62.8 % (45-73); Platelet Count 189 X10*3/uL (160-400); Red Blood Count 4.54 X10*6/uL (4.20-5.50); Red Cell Distribution Width 14.8 % (11.0-16.0); White Blood Count 5.3 X10*3/uL (4.8-10.8)
[2023-08-10 10:54] LABS: Alanine Aminotransferase 10 U/L (0-31); Albumin Level 4.2 g/dL (3.5-5.0); Alkaline Phosphatase 65 U/L (39-117); Anion Gap 13 (12-20); Aspartate Amino Transferase 19 U/L (5-31); Bilirubin Total 0.3 mg/dL (0.0-1.0); Blood Urea Nitrogen 16 mg/dL (9-16); Calcium 9.5 mg/dL (8.4-10.2); Carbon Dioxide 24 mmol/L (22-29); Chloride 104 mmol/L (96-108); Creatinine Clr Calc Pharmacy 63.2; Estimated Glomerular Filt Rate > 60; Glucose Random 113 mg/dL (60-115); Potassium 4.7 mmol/L (3.3-5.1); Sodium 136 mmol/L (135-145)
[2023-08-10 11:20] LABS: Influenza A PCR NEGATIVE (Negative); Influenza B PCR NEGATIVE (Negative); Resp Syncy Virus RNA Qual PCR NEGATIVE (Negative); SARS COV2 PCR INHOUSE NEGATIVE (Negative)
[2023-08-10 16:10] LABS: Troponin-I High Sensitivity < 2.7 ng/L (<3.5-17.0)
== END 2023-08-10 19:37 | disposition left against medical advice (07) ==
PROVIDERS: Physician Assistant Medical; Emergency Provider Emergency Medicine; PCP Internal Medicine
DX: R07.1 Chest pain on breathing (principal); R06.02 Shortness of breath; R05.9 Cough, unspecified; Z53.21 Procedure and treatment not carried out due to patient leaving prior to being seen by health care provider
CPT/HCPCS: 0241U; 80053; 84484; 85025; 99281; 99283

== ENCOUNTER 2023-08-15 15:51 | Emergency (ER) | payer MEDICARE, MEDICAID, SELFPAY ==
[2023-08-15 16:28] VITALS: BP 136/79; PULSE 74; RESP 18; TEMP 36.2; O2SAT 95; BMI 23.9
--- NOTE | 2023-08-15 16:29 | ED_ITS ---
HPI - Wound/Laceration General Chief Complaint: Animal Bite Stated Complaint: dog bite Time Seen by Provider: 08/15/23 17:16 Source: patient Mode of arrival: ambulatory Limitations: no limitations History of Present Illness HPI narrative: 62-year-old female with an extensive past medical history including hypertension presents emergency for evaluation. She stained a dog bite to her left little finger from a neighbor's Katty early this morning. She states that she put a Band-Aid on the dressing and went to work. She states she did not wash the wound to be imaging. She reports that she was able to contact her neighbor who states that the dog is up-to-date with its vaccines babies. She reports that she last had a tetanus shot in 2023. She reports control bleeding from a laceration on the proximal aspect of the middle finger and denies any difficulty with range of motion, paresthesias, or discharge. Pertinent positives and negatives discussed in HPI Related Data Home Medications ?Medication ?Instructions ?Recorded ?Confirmed alosetron 0.5 mg tablet 1 mg PO DAILY@89907/22/23 08/07/23 cholecalciferol (vitamin D3) 50 50 mcg PO DAILY@89907/22/23 08/07/23 mcg (2,000 unit) capsule ferrous sulfate 325 mg (65 mg 325 mg PO DAILY@89907/22/23 08/07/23 iron) tablet (Feosol) losartan 25 mg tablet 25 mg PO DAILY@89907/22/23 08/07/23 metoclopramide HCl 5 mg tablet 5 mg PO TIDAC 07/22/23 08/07/23 (Reglan) metoprolol succinate 50 mg 50 mg PO DAILY@89907/22/23 08/07/23 tablet,extended release 24 hr pantoprazole 40 mg tablet,delayed 40 mg PO DAILY@0630 07/22/23 08/07/23 release solifenacin 10 mg tablet 10 mg PO DAILY@89907/22/23 08/07/23 tiotropium bromide 18 mcg capsule 1 cap inhalation DAILY@09 copd 07/22/23 08/07/23 with inhalation device (Spiriva with HandiHaler) sucralfate 1 gram tablet (Carafate) 4 g PO DAILY@1200 07/25/23 08/07/23 Previous Rx's ?Medication ?Instructions ?Recorded ibuprofen 600 mg tablet 600 mg PO Q8H PRN pain 30 days #90 09/27/21 tabs cyclobenzaprine 5 mg tablet 5 mg PO TID PRN muscle spasm 30 06/20/22 days #90 tabs mirtazapine 30 mg tablet 30 mg PO BEDTIME 90 days #90 tabs 11/11/22 albuterol sulfate 90 mcg/actuation 1 puff PO Q6H PRN shortness of 03/20/23 aerosol inhaler (Ventolin HFA) breath or wheezing 30 days #8.5 grams simvastatin 40 mg tablet 40 mg PO BEDTIME #90 tabs 04/24/23 hydroxyzine HCl 50 mg tablet 50 mg PO BEDTIME #90 tabs 05/21/23 lorazepam 1 mg tablet 1 mg PO BID PRN anxiety 28 days 07/13/23 #56 tabs hydrocortisone 2.5 % topical cream 1 appl topical BID PRN itching #30 07/24/23 grams dextromethorphan-guaifenesin 10 10 ml PO TID PRN cough #237 mL 07/29/23 mg-100 mg/5 mL oral syrup sodium chloride 1,000 mg soluble 1,000 mg PO BID #14 tabs 07/29/23 tablet aspirin 81 mg tablet,delayed 81 mg PO DAILY #90 tabs 08/02/23 release escitalopram oxalate 20 mg tablet 20 mg PO DAILY 90 days #90 tabs 08/04/23 Pulmicort Flexhaler 180 2 inh inhalation BID 30 days #1 ea 08/06/23 mcg/actuation breath activated (budesonide) amoxicillin 875 mg-potassium 1 tab PO BID #14 tabs 08/09/23 clavulanate 125 mg tablet azithromycin 250 mg tablet See Rx Instructions PO .COMPLEX #6 08/09/23 (Zithromax Z-Talon) tabs budesonide 180 mcg/actuation 2 inh inhalation BID #1 ea 08/09/23 breath activated powder inhaler (Pulmicort Flexhaler) prednisone 10 mg tablets in a dose See Rx Instructions .Route 08/09/23 pack .COMPLEX #48 ea oxycodone 5 mg tablet 5 mg PO .1-2 times daily PRN pain 08/13/23 10 days #20 tabs Allergies Allergy/AdvReac Type Severity Reaction Status Date / Time No Known Allergies Allergy Unknown unknown Verified 08/15/23 16:30 [NO KNOWN ALLERGIES] Review of Systems Review of Systems: Yes all other systems are reviewed and are negative FOR[facility]LY [facility] Past Medical History Medical History Rectal prolapse Bronchitis Nicotine dependence, cigarettes, uncomplicated Nonrheumatic mitral (valve) insufficiency Pulmonary nodule History of hepatitis C Osteopenia (~2011) COPD (chronic obstructive pulmonary disease) IV drug user Endocarditis of mitral valve (~11/2017) Mitral valve prolapse Mitral regurgitation Early satiety Paresthesia of left leg Allergic rhinitis Facet arthritis of lumbar region Cervical spondylosis Vitamin D deficiency Pure hypercholesterolemia Benign essential hypertension Depression GERD (gastroesophageal reflux disease) Anxiety Surgical History History of liver biopsy (~2009) History of partial colectomy (~2014) History of hysteroscopy (~2010) History of colonoscopy (~2017) Family History Family History Father Internal bleeding Mother Medical history unknown Social History Social History Household Members: None Housing: House Housing Other:: lives alone with her cat Malena Do you presently have visiting nurse or other home services: Yes Alcohol intake: former Patient Tobacco Use Status: Current everyday Tobacco user Tobacco use type: Cigarette Cigarette Packs Per Day: 0.5 Cigarettes Per Day: 10 Years Smoked: 45 years (onset 15, 1/2-3/4ppd x 44yrs, 28pyh) e-Cigarette/Vaping Use: Never Used Second Hand Smoke Exposure: Yes Substance Use Type: Marijuana Advance Directives: Yes Advance Directives on File: Yes Advance Directives Date on File: 12/18/21 Do you have a plan to hurt others: No Plan service: No Current occupational status: unemployed Sexual orientation: Straight/Heterosexual Gender identity: Female Cognitive needs: No Hearing needs: No Vision needs: Yes Physical Exam Vital Signs: Vital Signs: Last Vital Signs Temp 97.1 F 08/15/23 16:28 Pulse 74 08/15/23 16:28 Resp 18 08/15/23 16:28 BP 136/79 08/15/23 16:28 Pulse Ox 95 08/15/23 16:28 O2 Del Method Room Air 08/15/23 16:28 BMI result Body Mass Index 23.9 Nursing notes and vital signs reviewed. GENERAL APPEARANCE: A&0 x 4, generally well appearing, no acute distress HENMT: Normal to inspection, atraumatic, face symmetrical. Normal external ears, nose, and oropharynx clear. EYE: PERRLA, EOM intact, structures appear normal NECK: Supple without stiffness or restricted ROM. HEART: Normal rate and regular rhythm, normal S1/S2, no M/R/G LUNGS: LS CTA, moving air well. Able to speak in complete sentences. No crackles, wheezes, or rhonchi auscultated BACK: No CVAT, no obvious deformity EXTREMITIES: Moving all extremities without difficulty. Normal capillary refill. 1 cm linear laceration at proximal little finger on volar aspect with controlled bleeding NEUROLOGICAL: Alert and oriented, moving all 4 extremities with equal strength. CN not formally tested but appearing grossly intact. Observed to ambulate with normal gait. Cognition normal SKIN: Warm and dry without any lesions, rash, or visible sores Course Course Course Narrative: This is a rapid medical exam completed by Dimitri DOYLEN: Additional HPI, ROS, PE not included below will be deferred to primary provider. Dog bite to left pinky. States it was the neighbor's dog. Unsure if the dog is vaccinated against rabies as she was heading to work and didn't have time to ask. Reports that she bandaged the pinky without washing it to head to work Medical Decision Making Medical Decision Making MDM Narrative: Old records reviewed for previous imaging, lab studies, ECGs, and notes. Patient was assessed the emergency department with no acute distress or toxicity noted. Wound cleansed with soap and water and betadine and closed with steristrips. Pt tolerated without incident. Pt educated to keep wound clean and dry to prevent infection. Patient is safe for discharge at this time with plan for [id number] Tylenol and/or NSAID such as ibuprofen or naproxen for fever/discomfort with dosing as per packaging. HPI, PE, diagnostics, and plan discussed with patient and family with no unanswered questions at this time. Strict return precautions given to return to the emergency department with new, worsening, or concerning emergent symptoms. Recommended to follow-up with there primary care provider in 24-48 hours for further treatment and management. Differential Diagnosis Differential Diagnoses: The differential diagnosis associated with the presentation includes but not limited to laceration, abrasion, puncture wound, fracture, dislocation Tests considered The following testing was considered but not selected: Xray was considered, however; pt had no bony tenderness and good ROM Prescription Management I considered prescription management with: Antibiotic but were deemed unnecessary at this time as the dog bite was linear with no concerns for puncture and trapped bacteria Procedures Laceration Laceration 1: Site: hand Side (If applicable): left Size (cm): 1 Description: linear Depth: simple, single layer Pre-repair: wound explored and deep structures intact Skin layer closed with: other (Steristrips) Discharge Plan Discharge Clinical Impression: Open wound of little finger due to dog bite Patient Disposition: Home, Self-Care Instructions: Animal Bite (ED) Prescriptions: No Action ibuprofen 600 mg tablet 600 mg PO Q8H PRN (Reason: pain) 30 Days Qty: 90 1RF Rx Instructions: take with food cyclobenzaprine 5 mg tablet 5 mg PO TID PRN (Reason: muscle spasm) 30 Days Qty: 90 1RF albuterol sulfate [Ventolin HFA] 90 mcg/actuation HFA aerosol inhaler 1 puff PO Q6H PRN (Reason: shortness of breath or wheezing) 30 Days Qty: 8.5 3RF simvastatin 40 mg tablet 40 mg PO BEDTIME Qty: 90 1RF hydroxyzine HCl 50 mg tablet 50 mg PO BEDTIME Qty: 90 1RF lorazepam 1 mg tablet 1 mg PO BID PRN (Reason: anxiety) 28 Days Qty: 56 0RF aspirin 81 mg tablet,delayed release (DR/EC) 81 mg PO DAILY Qty: 90 3RF escitalopram oxalate 20 mg tablet 20 mg PO DAILY 90 Days Qty: 90 1RF oxycodone 5 mg tablet 5 mg PO .1-2 times daily PRN (Reason: pain) 10 Days Qty: 20 0RF metoprolol succinate 50 mg tablet extended release 24 hr 50 mg PO DAILY@0900 metoclopramide HCl [Reglan] 5 mg tablet 5 mg PO TIDAC pantoprazole 40 mg tablet,delayed release (DR/EC) 40 mg PO DAILY@0630 ferrous sulfate [Feosol] 325 mg (65 mg iron) tablet 325 mg PO DAILY@0900 losartan 25 mg tablet 25 mg PO DAILY@0900 alosetron 0.5 mg tablet 1 mg PO DAILY@0900 tiotropium bromide [Spiriva with HandiHaler] 18 mcg capsule, w/inhalation device 1 cap inhalation DAILY@0900 Rx Instructions: puncture 1 cap using device; one dose = 2 inhalations solifenacin 10 mg tablet 10 mg PO DAILY@0900 cholecalciferol (vitamin D3) 50 mcg (2,000 unit) capsule 50 mcg PO DAILY@0900 Rx Instructions: 1 capsule Orally Once a day hydrocortisone 2.5 % cream 1 appl topical BID PRN (Reason: itching) Qty: 30 0RF sucralfate [Carafate] 1 gram tablet 4 g PO DAILY@1200 dextromethorphan-guaifenesin 10-100 mg/5 mL Syrup 10 ml PO TID PRN (Reason: cough) Qty: 237 0RF sodium chloride 1,000 mg Tablet,Soluble 1,000 mg PO BID Qty: 14 0RF azithromycin [Zithromax Z-Talon] 250 mg tablet See Rx Instructions .ROUTE .COMPLEX Qty: 6 0RF Rx Instructions: take 500 mg today (day 1), then 250 mg for 4 days (days 2-5) amoxicillin-pot clavulanate 875-125 mg tablet 1 tab PO BID Qty: 14 0RF prednisone 10 mg tablets,dose pack See Rx Instructions .ROUTE .COMPLEX Qty: 48 0RF Taper: Prednisone 40 mg daily for 3 Days and 0 Hour 30 mg daily for 3 Days and 0 Hour 20 mg daily for 3 Days and 0 Hour 10 mg daily for 3 Days and 0 Hour Rx Instructions: See Taper orally ;40 mg Daily x3 days, 30 mg daily x3 days, 20 mg daily x3 days, 10 mg daily x3 days. discard remainder Pulmicort Flexhaler 180 mcg/actuation aerosol powdr breath activated 2 inh inhalation BID Qty: 1 0RF mirtazapine 30 mg tablet 30 mg PO BEDTIME 90 Days Qty: 90 1RF Pulmicort Flexhaler 180 mcg/actuation aerosol powdr breath activated 2 inh inhalation BID 30 Days Qty: 1 5RF Referrals: Sarthak Person MD [Primary Care Provider] - Print Language: Occitan
[2023-08-15 17:58] VITALS: BP 136/79; PULSE 74; RESP 18; TEMP 36.2; O2SAT 95
== END 2023-08-15 17:59 | disposition home or self-care (01) ==
PROVIDERS: Emergency Provider Emergency Medicine; PCP Internal Medicine
DX: S61.257A Open bite of left little finger without damage to nail, initial encounter (principal); W54.0XXA Bitten by dog, initial encounter; Y93.9 Activity, unspecified; Y92.9 Unspecified place or not applicable; Y99.9 Unspecified external cause status
CPT/HCPCS: 99282

== ENCOUNTER 2023-08-17 09:24 | Outpatient (AMB) | payer MEDICARE, MEDICAID, SELFPAY ==
[2023-08-17 09:28] VITALS: BP 118/78; PULSE 69; O2SAT 97; BMI 24.2
--- NOTE | 2023-08-17 09:28 | A.OFFVIS_ITS ---
Vital Signs 08/17/23 09:28 Height 5 ft 2 in Weight 132 lb 4.438 oz BMI 24.2 BP 118/78 Blood Pressure Location Lt brachial Position Sitting Pulse 69 Pulse Source Pulse Oximeter Pulse Oximetry (%) 97 Oxygen Delivery Method Room Air Intake Visit Reasons: copd Intake Note: pt is here for follow up and states she was in the hospital for pneumonia, discharged about a week ago, and now states she states she feels like she has a lingering cold. Pathology Laboratory Technologist Required: No Allergies No Known Allergies [NO KNOWN ALLERGIES] Allergy (Unknown, Verified 08/17/23 09:32) unknown HPI HPI copd: Details: 62 years old female is here for 4 months follow-up, for her chronic obstructive pulmonary disease. She has had a few recent visits to the emergency room and treated for acute bronchitis complicating her COPD. Recently she has had a course of prednisone and azithromycin. At present she is at her baseline, continues to smoke about 6-7 cigarettes a day. She has mild intermittent. Cough especially after smoking She gets short of breath on walking around but not at rest. Her chest x-ray shows prominence of the right hilar area. Her previous CT scan has shown a 9 mm solitary nodule in the left upper lobe which needs to be followed, by an will lung scan. FORMERLY [facility] Medical History Rectal prolapse Bronchitis Nicotine dependence, cigarettes, uncomplicated Nonrheumatic mitral (valve) insufficiency Pulmonary nodule History of hepatitis C Osteopenia (~2011) COPD (chronic obstructive pulmonary disease) IV drug user Endocarditis of mitral valve (~11/2017) Mitral valve prolapse Mitral regurgitation Early satiety Paresthesia of left leg Allergic rhinitis Facet arthritis of lumbar region Cervical spondylosis Vitamin D deficiency Pure hypercholesterolemia Benign essential hypertension Depression GERD (gastroesophageal reflux disease) Anxiety Surgical History History of liver biopsy (~2009) History of partial colectomy (~2014) History of hysteroscopy (~2010) History of colonoscopy (~2017) Family History Father Internal bleeding Mother Medical history unknown Social History Household Members: None Housing: House Housing Other:: lives alone with her cat Malena Do you presently have visiting nurse or other home services: Yes Alcohol intake: former Patient Tobacco Use Status: Current everyday Tobacco user Tobacco use type: Cigarette Cigarette Packs Per Day: 0.5 Cigarettes Per Day: 6 Years Smoked: 45 years (onset 15, 1/2-3/4ppd x 44yrs, 28pyh) e-Cigarette/Vaping Use: Never Used Second Hand Smoke Exposure: Yes Substance Use Type: Marijuana Advance Directives Date on File: 12/18/21 service: No Current occupational status: unemployed Sexual orientation: Straight/Heterosexual Gender identity: Female Cognitive needs: No Hearing needs: No Vision needs: Yes Female Reproductive History Menstrual Age of Menarche: 14 Review of Systems Const All systems reviewed & are unremarkable except as noted in HPI and below Eyes Reports no additional complaints ENT Reports nasal congestion (Off and on due to allergic rhinitis) Card Denies chest pain at rest, Denies irregular heart rhythm and Denies leg edema Resp Reports as per HPI and Reports cough GI Reports heartburn (Controlled with med) Reports no additional complaints Musc Reports no additional complaints Skin/Breast Reports system reviewed and no additional complaints, except as documented Neuro Reports no additional complaints Psych Reports anxiety and Reports depression (Controlled with med) Endo Reports no additional complaints Jose L/Lymph Reports no additional complaints Physical Exam Vital Signs: Last Vital Signs Pulse 69 08/17/23 09:28 BP 118/78 08/17/23 09:28 Pulse Ox 97 08/17/23 09:28 Oxygen Delivery Method Room Air 08/17/23 09:28 BMI result Body Mass Index 24.2 Const General: comfortable, no acute distress, alert and awake Orientation/consciousness: patient oriented x3 HEENT Head: Yes normal to inspection General nose exam: No nasal polyps present, No nasal discharge present and Other nasal findings present (There is is small ulcerated lesion on the right side of the nasal septum,) Face and sinus: Yes sinuses nontender Mouth: oropharynx normal Throat: Yes posterior oropharynx normal Eyes General: appearance normal, both eyes and all related structures Neck Neck: Yes normal visual inspection, Yes no lymphadenopathy, Yes trachea midline and Yes no JVD Thyroid: Thyroid normal Chest Chest palpation & inspection: normal inspection of the chest, normal palpation of entire chest wall and no tenderness Resp Other: Percussion note hyper-resonant, breath sounds are distant with prolonged expiratory phase. There are no audible wheezes or rhonchi heard today. Cardio Palpation: normal PMI Rate: regular rate Rhythm: regular rhythm Heart sounds: no gallops and no murmurs GI Palpation (GI): Soft to palpation, nontender, No hepatosplenomegaly present and no masses Auscultation: normal bowel sounds Back/Spine/Pelvis Thoracic/Lumbar Spine: thoracic and lumbar spine normal to inspection Skin General skin exam: no rashes or lesions noted Neuro General: patient oriented x3 and no focal motor deficits Cranial nerves: Yes CN's II-XII intact bilaterally Extrem General: Yes normal to inspection, Yes no clubbing, cyanosis or edema and Yes no calf tenderness Psych Speech and movement: Normal speech and movement present Affect: Sad affect present (With depressed mood) Assessment & Plan Assessment & Plan (1) COPD (chronic obstructive pulmonary disease): Comment: Moderately Severe COPD ,stable. Code(s): J44.9 - Chronic obstructive pulmonary disease, unspecified Category: Medical Qualifiers: COPD type: emphysema Emphysema type: unspecified Qualified Code(s): J43.9 - Emphysema, unspecified Plan: Pulmicort Flexhaler 180 mg 2 inhalations b.i.d. Albuterol HFA 2 puffs Q 4-6 hours p.r.n. (2) Pulmonary nodule: Comment: (9mm MARIA ELENA nodule remains stable on 2013 LDCT) Also has right suprahilar prominence. Code(s): R91.1 - Solitary pulmonary nodule Category: Medical Plan: Because of the 9 mm nodule and also suprahilar prominence on the right side, a repeat CT scan at short-term interval is commended. I think we should repeat the CT scan of to 6 months. (3) Nicotine dependence, cigarettes, uncomplicated: Comment: (current smoker - onset 15, 1/2-3/4ppd x 45yrs, 28pyh) Currently she is smoking 6-7 cigarettes a day. Code(s): F17.210 - Nicotine dependence, cigarettes, uncomplicated Category: Medical Plan: Counseled to quit smoking. She agrees to go on nicotine patch again. I have sent a prescription for nicotine patch 14 mg apply 1 patch a day, Goal is to quit smoking in the next 2 months. (4) Allergic rhinitis: Comment: , MILD CHRONIC, RELATIVELY CONTROLLED. Code(s): J30.9 - Allergic rhinitis, unspecified Category: Medical Qualifiers: Allergic rhinitis trigger: unspecified Allergic rhinitis seasonality: unspecified Qualified Code(s): J30.9 - Allergic rhinitis, unspecified Plan: TX : Continue to use Flonase 1 spray each nostril daily. May use Claritin or Cetirizine 10 mg, p.r.n., Medications: New nicotine 1 patch transdermal Q24H 28 days 28 ea 2RF smoking MDD smoking Coding Level of Care Code Est Pt Level 3 (31116) Diagnoses Pulmonary emphysema, unspecified emphysema type J43.9 COPD type: emphysema Emphysema type: unspecified Pulmonary nodule R91.1 Nicotine dependence, cigarettes, uncomplicated F17.210 Allergic rhinitis, unspecified seasonality, unspecified trigger J30.9 Allergic rhinitis trigger: unspecified Allergic rhinitis seasonality: unspecified
== END 2023-08-17 09:56 | disposition home or self-care (01) ==
PROVIDERS: PCP Internal Medicine; Visit Provider Internal Medicine
DX: J43.9 Emphysema, unspecified (principal); R91.1 Solitary pulmonary nodule; F17.210 Nicotine dependence, cigarettes, uncomplicated; J30.9 Allergic rhinitis, unspecified
CPT/HCPCS: 99213

== ENCOUNTER → 2023-08-17 09:24 | Outpatient (BNVA) | payer MEDICARE, MEDICAID, SELFPAY | PROVIDERS: PCP Internal Medicine; Visit Provider Internal Medicine | DX: J43.9 Emphysema, unspecified (principal); J30.9 Allergic rhinitis, unspecified; R91.1 Solitary pulmonary nodule; F17.210 Nicotine dependence, cigarettes, uncomplicated | CPT/HCPCS: 99212 ==

== ENCOUNTER 2023-08-24 11:29 | Inpatient (IN) | payer MEDICARE, MEDICAID, SELFPAY ==
[2023-08-24] VITALS (7 sets, daily range): BP systolic 94–169; BP diastolic 69–89; PULSE 55–83; RESP 16–24; TEMP 36.2–36.9; O2SAT 95–98; BMI 24.0
--- NOTE | ~2023-08-24 | CT_ITS ---
EXAMINATION: CT HEAD WITHOUT CONTRAST CLINICAL INFORMATION: Altered status. Rule out metastasis. COMPARISON: 01/01/2023. TECHNIQUE: Multidetector volumetric imaging of the head was performed without intravenous contrast material. This CT examination was performed using dose optimization techniques as appropriate, variously including the following: *Automated exposure control *Adjustment of mA and/or kV according to patient size (this includes techniques or standardized protocols for targeted exams where dose is matched to indication/reason for exam; i.e. extremities or head) *Use of iterative reconstruction technique Dose: 554 mGy-cm FINDINGS: There is no evidence of acute intracranial hemorrhage or territorial infarction. No abnormal mass-effect or midline shift is seen. Cast to white matter differentiation is well preserved. No extra axial fluid collections. There is commensurate enlargement of the ventricles and extraaxial CSF spaces consistent with mild volume loss. A few foci of hypoattenuation in the subcortical and periventricular white matter are most consistent with chronic microangiopathic changes. Calcific atherosclerosis is present within the cavernous segments of the internal carotid arteries. The soft tissues and osseous structures are normal. The sinuses and mastoid air cells are clear. CT/CT head/brain wo IV con IMPRESSION: No acute intracranial pathology. No evidence metastatic disease, though sensitivity is limited without intravenous contrast.
--- NOTE | ~2023-08-24 | XR_ITS ---
EXAMINATION: XR CHEST CLINICAL INFORMATION: Chest pain COMPARISON: X-ray 08/09/2023, 07/25/2023 TECHNIQUE: 2 views of the chest were obtained. FINDINGS: Cardiac contour is stable. Right mediastinal silhouette is obscured by the upper lobe opacity.. Extensive right suprahilar and upper lobe opacity, interval worsening as compared to previous. No focal consolidation in the left lung. No effusion. No pneumothorax is seen. XR/XR chest 2V IMPRESSION: Extensive opacity in the right suprahilar region and right upper lobe. Interval worsening as compared to previous. This could be related to a mass, upper lobe collapse, consolidation. Recommend further evaluation with CT scan with contrast. Result and recommendations conveyed to YEVGENIY Jacome at 1338 hours on 08/24/2023
--- NOTE | ~2023-08-24 | CT_ITS ---
EXAMINATION: CT CHEST WITH CONTRAST CLINICAL INFORMATION: Abnormal chest radiograph with right upper lobe mass/consolidation COMPARISON: Chest radiograph earlier today TECHNIQUE: Multidetector volumetric CT imaging of the chest was obtained after the administration of 65 mL of Omnipaque 350 intravenous contrast without immediate adverse reactions. Axial MIP volume rendering provided. Sagittal and coronal reformatted images were obtained. This CT examination was performed using dose optimization techniques as appropriate, variously including the following: *Automated exposure control *Adjustment of mA and/or kV according to patient size (this includes techniques or standardized protocols for targeted exams where dose is matched to indication/reason for exam; i.e. extremities or head) *Use of iterative reconstruction technique DLP: 207 mGy-cm FINDINGS: LUNGS: There is a right sided arlen-/suprahilar mass present measuring 5.4 x 3.8 x 4.1 cm. The mass encases and occludes the right upper lobe bronchus with complete right upper lobe collapse. There is a left upper lobe 1 cm pulmonary nodule (5:100 and (. There are underlying moderate emphysematous changes and bronchial thickening. MEDIASTINUM: The above-mentioned mass invades the mediastinum. There are enlarged mediastinal lymph nodes present with a 1.4 x 2.4 x 2.7 cm pretracheal lymph node present. Some other smaller lymph nodes are seen in the anterior mediastinum. PLEURA: There is no pleural effusion. No pleural mass or thickening. AXILLA: No lymphadenopathy. UPPER ABDOMEN: Unremarkable. The adrenal glands appear normal. OSSEOUS STRUCTURES: Unremarkable. No evidence of osseous metastatic disease. CT/CT chest w IV con IMPRESSION: 1. Right arlen-/suprahilar mass with occlusion of the right upper lobe bronchus and complete right upper lobe collapse. There is associated no mediastinal lymphadenopathy. Findings are consistent with carcinoma and bronchoscopy with biopsy is recommended 2. 1 cm left upper lobe pulmonary nodule. This nodule had demonstrated fairly snf stability since at least 2020. Fleischner guidelines were followed.
--- NOTE | 2023-08-24 11:55 | ED_ITS ---
HPI - General Adult General Chief complaint: Nausea/Vomiting/Diarrhea Stated complaint: diarrahea since this morning Time Seen by Provider: 08/24/23 13:49 Source: patient Mode of arrival: ambulatory Limitations: no limitations History of Present Illness HPI narrative: Patient comes to the emergency room complaining of nausea vomiting and shortness of breath for several days. Patient seems a bit confused, poor historian. Patient is tearful in triage, repeating questions. Initially, when patient arrived, patient told EMS that she has been having nausea vomiting and diarrhea since yesterday and left upper quadrant. When I spoke with the patient, patient not answering she has actually had nausea vomiting and diarrhea Related Data Home Medications ?Medication ?Instructions ?Recorded ?Confirmed alosetron 0.5 mg tablet 1 mg PO DAILY@0907/22/23 08/07/23 cholecalciferol (vitamin D3) 50 50 mcg PO DAILY@0907/22/23 08/07/23 mcg (2,000 unit) capsule ferrous sulfate 325 mg (65 mg 325 mg PO DAILY@0907/22/23 08/07/23 iron) tablet (Feosol) metoclopramide HCl 5 mg tablet 5 mg PO TIDAC 07/22/23 08/07/23 (Reglan) pantoprazole 40 mg tablet,delayed 40 mg PO DAILY@0630 07/22/23 08/07/23 release solifenacin 10 mg tablet 10 mg PO DAILY@0907/22/23 08/07/23 tiotropium bromide 18 mcg capsule 1 cap inhalation DAILY@0900 copd 07/22/23 08/07/23 with inhalation device (Spiriva with HandiHaler) sucralfate 1 gram tablet (Carafate) 4 g PO DAILY@1200 07/25/23 08/07/23 Previous Rx's ?Medication ?Instructions ?Recorded ibuprofen 600 mg tablet 600 mg PO Q8H PRN pain 30 days #90 09/27/21 tabs cyclobenzaprine 5 mg tablet 5 mg PO TID PRN muscle spasm 30 06/20/22 days #90 tabs mirtazapine 30 mg tablet 30 mg PO BEDTIME 90 days #90 tabs 11/11/22 albuterol sulfate 90 mcg/actuation 1 puff PO Q6H PRN shortness of 03/20/23 aerosol inhaler (Ventolin HFA) breath or wheezing 30 days #8.5 grams simvastatin 40 mg tablet 40 mg PO BEDTIME #90 tabs 04/24/23 hydroxyzine HCl 50 mg tablet 50 mg PO BEDTIME #90 tabs 05/21/23 lorazepam 1 mg tablet 1 mg PO BID PRN anxiety 28 days 07/13/23 #56 tabs hydrocortisone 2.5 % topical cream 1 appl topical BID PRN itching #30 07/24/23 grams dextromethorphan-guaifenesin 10 10 ml PO TID PRN cough #237 mL 07/29/23 mg-100 mg/5 mL oral syrup sodium chloride 1,000 mg soluble 1,000 mg PO BID #14 tabs 07/29/23 tablet aspirin 81 mg tablet,delayed 81 mg PO DAILY #90 tabs 08/02/23 release escitalopram oxalate 20 mg tablet 20 mg PO DAILY 90 days #90 tabs 08/04/23 Pulmicort Flexhaler 180 2 inh inhalation BID 30 days #1 ea 08/06/23 mcg/actuation breath activated (budesonide) amoxicillin 875 mg-potassium 1 tab PO BID #14 tabs 08/09/23 clavulanate 125 mg tablet budesonide 180 mcg/actuation 2 inh inhalation BID #1 ea 08/09/23 breath activated powder inhaler (Pulmicort Flexhaler) prednisone 10 mg tablets in a dose See Rx Instructions .Route 08/09/23 pack .COMPLEX #48 ea nicotine 14 mg/24 hr daily 1 patch transdermal Q24H smoking 08/17/23 transdermal patch 28 days #28 ea metoprolol succinate 50 mg 50 mg PO DAILY #90 tabs 08/19/23 tablet,extended release 24 hr losartan 25 mg tablet 25 mg PO DAILY@0900 90 days #90 08/21/23 tabs oxycodone 5 mg tablet 5 mg PO .1-2 times daily PRN pain 08/21/23 10 days #20 tabs Allergies Allergy/AdvReac Type Severity Reaction Status Date / Time No Known Allergies Allergy Unknown unknown Verified 08/24/23 11:57 [NO KNOWN ALLERGIES] Review of Systems 2 Review of Systems: Constitutional : No Weight loss, No Fever, No Chills, No Night Sweats, No Fatigue, No Malaise ENT/Mouth : No Hearing loss, No Ear Pain, No Nasal Congestion, No Sinus Pain, No Hoarseness, No sore throat, No Rhinorrhea, No Swallowing Difficulty Eyes: No Eye Pain, No Swelling, No Redness, No Foreign Body, No Discharge, No Vision Changes Cardiovascular : No Chest Pain, No SOB, No Dyspnea on Exertion, No Orthopnea, No Edema, No Palpitations Respiratory : Complaining of difficulty breathing, states she can not catch a full breath, No Cough, No Sputum, No Wheezing, No Smoke Exposure, No Dyspnea Gastrointestinal : No Nausea, No Vomiting, No Diarrhea, No Constipation, No abdominal Pain, No Hematochezia, No Melena Genitourinary : no irregular bleeding, No Dysuria, No Urinary Frequency, No Hematuria, No Urinary Incontinence, No Urgency, No Flank Pain, No Urinary Flow Changes, No Hesitancy Musculoskeletal : No joint pain, No Myalgias, No Joint Swelling Skin : No Skin Lesions, No rash Neuro : No Weakness, No Numbness, No Paresthesias, No Loss of Consciousness, No Dizziness, No Headache Psych : No Anxiety/Panic, No Depression, No SI/HI/AH/VH, No Social Issues, Heme/Lymph: No Bruising, No Bleeding,No Lymphadenopathy Endocrine : No Polyuria, No Polydipsia, No Temperature Intolerance [facility] Past Medical History Medical History Rectal prolapse Bronchitis Nicotine dependence, cigarettes, uncomplicated Nonrheumatic mitral (valve) insufficiency Pulmonary nodule History of hepatitis C Osteopenia (~2011) COPD (chronic obstructive pulmonary disease) IV drug user Endocarditis of mitral valve (~11/2017) Mitral valve prolapse Mitral regurgitation Early satiety Paresthesia of left leg Allergic rhinitis Facet arthritis of lumbar region Cervical spondylosis Vitamin D deficiency Pure hypercholesterolemia Benign essential hypertension Depression GERD (gastroesophageal reflux disease) Anxiety Surgical History History of liver biopsy (~2009) History of partial colectomy (~2014) History of hysteroscopy (~2010) History of colonoscopy (~2017) Family History Family History Father Internal bleeding Mother Medical history unknown Social History Social History Household Members: None Housing: House Housing Other:: lives alone with her cat Malena Do you presently have visiting nurse or other home services: Yes Alcohol intake: former Patient Tobacco Use Status: Current everyday Tobacco user Tobacco use type: Cigarette Cigarette Packs Per Day: 0.5 Cigarettes Per Day: 6 Years Smoked: 44 years (onset 15, 1/2-3/4ppd x 44yrs, 28pyh) Smoked in Last 30 Days: Yes e-Cigarette/Vaping Use: Never Used Second Hand Smoke Exposure: Yes Use of substances other than those prescribed or required for medical reasons: No Substance Use Type: Marijuana Advance Directives: Yes Advance Directives on File: Yes Advance Directives Date on File: 12/18/21 Do you have a plan to hurt others: No Plan Patient : No service: No Current occupational status: unemployed Sexual orientation: Straight/Heterosexual Gender identity: Female Cognitive needs: No Hearing needs: No Vision needs: Yes Physical Exam ED Vital Signs: Vital Signs - 24 hr 08/24/23 11:54 08/24/23 15:09 08/24/23 15:39 Temperature 97.2 F 98.4 F 97.7 F Pulse Rate 64 83 75 Respiratory Rate 24 H 16 18 Blood Pressure 169/89 H 166/89 H 94/69 Pulse Oximetry 98 96 95 Oxygen Delivery Method Room Air Room Air Room Air 08/24/23 19:12 Temperature 98.1 F Pulse Rate 60 Respiratory Rate 16 Blood Pressure 145/74 H Pulse Oximetry 96 Oxygen Delivery Method Room Air BMI result Body Mass Index 24.0 Const Other: Appearance: Alert. Oriented X2. Anxious, crying, not answering questions, repeating questions over again Eyes: Pupils equal, round and reactive to light. ENT: Pharynx normal. Neck: Normal inspection. Neck supple. No lymph nodes noted. No crepitus CVS: Normal heart rate and rhythm. Pulses normal. Normal S1 and S2 Respiratory: No respiratory distress. Breath sounds normal. No Wheezing. No rales Abdomen: Soft and nontender. No rigidity. No distention. Skin: Skin warm and dry. Normal skin color. Normal skin turgor. Extremities: No lower extremity edema. No Lacerations. No Rash Neuro: CN 2 through 12 grossly intact Psych: calm, cooperative, normal affect Course Course Course Narrative: This is an RME: Additional HPI, ROS, PE not included below will be deferred to primary provider. RME assessment and note performed by: Zonia Reyes PA-C This is a [id number], with PMH of recent admission for COPD and hyponatremia (07/21-07/28), bronchitis, IVDA, COPD, HTN, HLD, anemia, GERD, IBS, gastroparesis, anxiety, depression, presenting to the ER with complaints of nausea, vomiting, diarrhea, chest pain, shortness of breath. Reports that her symptoms started yesterday. Plan: Labs, EKG, chest x-ray, further ER evaluation needed. 1340 - received phone call from [facility], radiologist reporting Extensive opacity in the right suprahilar region and right upper lobe. Interval worsening as compared to previous. This could be related to a mass, upper lobe collapse, consolidation recommending CT chest with contrast Medications Administered Discontinued Medications Generic Name Dose Route Start Last Admin Trade Name Freq PRN Reason Stop Dose Admin Acetaminophen 975 mg 08/24/23 16:13 08/24/23 16:18 Acetaminophen 325 Mg Tablet PO 08/24/23 16:14 975 mg ONCE ONE Administration Sodium Chloride 1,000 mls @ 999 mls/hr 08/24/23 13:55 08/24/23 14:38 Ns IVCONT 08/24/23 14:55 Not Given .Q1H1M ONE Sodium Chloride 1,788 mls @ 1,788 mls/hr 08/24/23 13:55 08/24/23 17:25 Ns 30 ml/kg infuse over 1 hr (1788 ml) 08/24/23 14:54 Infused IV Infusion .Q1H STA Piperacillin Sod/Tazobactam 50 mls @ 100 mls/hr 08/24/23 13:55 08/24/23 15:08 Sod 3.375 gm/ Sodium Chloride IV 08/24/23 14:24 Infused ONCE ONE Infusion Vancomycin HCl 1,500 mg/ 500 mls @ 333.333 mls/hr 08/24/23 13:55 08/24/23 16:48 Sodium Chloride IV 08/24/23 15:24 Infused ONCE ONE Infusion Iohexol 100 ml 08/24/23 14:29 08/24/23 14:29 Iohexol 350 Mg/Ml 100 Ml Infus..Btl IV 08/24/23 14:30 65 ml ONCE ONE Administration Medical Decision Making Medical Decision Making MDM Narrative: -my interpretation of chest x-ray: Pneumonia versus collapse of right upper lobe -empiric treatment has been started with IV fluids, vancomycin and Zosyn. -patient's radiology report for chest x-ray: Right upper lobe mass versus upper lobe collapse versus consolidation. CT scan recommended My interpretation of labs: Patient with blood cell count 11.2, possible pneumonia? As mentioned above, patient has already been treated empirically with IV fluids and antibiotics. CT scan results pending. Sodium is slightly decreased, 128, lactic acid 2.1. Normal LFTs, lactic acid 2.1. -after IV fluids, patient's lactic acid improved. -my interpretation of CT scan: Complete collapse of right upper lobe. Radiology report: Right arlen/suprahilar mass with occlusion of right upper lobe and right upper lobe collapse. Likely carcinoma -patient's hyponatremia likely secondary to SIADH from the lung mass. Prior to receiving the results, patient had already received prophylactically IV fluids. -I discussed the patient with Dr. Anaya, patient being admitted. - Differential Diagnosis Differential Diagnoses: The differential diagnosis associated with the presentation includes (Hyponatremia, SIADH, lung mass) Admission/Observation Consideration of admission/observation: Escalation of care including admission/observation considered Consult Healthcare Provider Management of the patient was discussed with: Hospitalist Lab Data [facility] Lab Attestation statement: I reviewed the patient's lab results. 08/24/23 12:27 08/24/23 12:27 Labs: Lab Results 08/24/23 08/24/23 08/24/23 Range/Units 12:27 14:24 16:57 WBC 11.2 H (4.8-10.8) X10*3/uL RBC 4.49 (4.20-5.50) X10*6/uL Hgb 12.5 (12.0-16.0) g/dl Hct 37.3 (37.0-47.0) % MCV 83.1 (80.0-98.0) fL MCH 27.8 (27.0-33.0) pg MCHC 33.5 (31.0-35.0) g/dl RDW 14.6 (11.0-16.0) % Plt Count 199 (160-400) X10*3/uL MPV 8.5 L (9.4-12.3) fL Immature Gran % (Auto) 1.0 H (0.0-0.4) % Neut % (Auto) 66.0 (45-73) % Lymph % (Auto) 23.8 (20-40) % Walton % (Auto) 8.3 (2-11) % Eos % (Auto) 0.5 (0-4) % Baso % (Auto) 0.4 (0-2) % Lymph # (Auto) 2.7 (1.2-4.9) X10*3/uL Walton # (Auto) 0.9 (0.1-1.2) X10*3/uL Eos # (Auto) 0.1 (0.0-0.4) X10*3/uL Baso # (Auto) 0.0 (0.0-0.2) X10*3/uL Abs Immat Gran (auto) 0.11 H (0.00-0.03) X10*3/uL Absolute Neuts (auto) 7.4 (2.0-8.3) x10*3/uL Absolute Nucleated RBC 0.000 (0.0-0.012) X10*3/uL Nucleated RBC % (auto) 0.0 (0.0-0.2) /100WBC Sodium 128 L (135-145) mmol/L Potassium 4.0 (3.3-5.1) mmol/L Chloride 94 L (96-108) mmol/L Carbon Dioxide 20 L (22-29) mmol/L Anion Gap 18 (12-20) BUN 11 (9-16) mg/dL Creatinine 0.69 (0.5-1.4) mg/dL Estim Creat Clear Calc 65.1 Estimated GFR > 60 Random Glucose 96 (60-115) mg/dL Lactic Acid 2.1 H* (0.5-2.0) mmol/L Lactic Acid F/U @ 2Hr 1.5 (0.5-2.0) mmol/L Calcium 9.3 (8.4-10.2) mg/dL Magnesium 1.9 (1.6-2.6) mg/dL Total Bilirubin 0.6 (0.0-1.0) mg/dL Direct Bilirubin 0.2 (0.0-0.5) mg/dL AST 18 (5-31) U/L ALT 8 (0-31) U/L Alkaline Phosphatase 63 (39-117) U/L Total Protein 6.8 (6.5-8.0) g/dL Albumin 4.1 (3.5-5.0) g/dL Independent Interpretation I performed an independent interpretation of an: Plain X-Ray and CT Scan Radiology Impression Discussion of test interpretation with radiology: I have reviewed the radiologist's reading. Radiologist Impression: FINDINGS: LUNGS: There is a right sided arlen-/suprahilar mass present measuring 5.4 x 3.8 x 4.1 cm. The mass encases and occludes the right upper lobe bronchus with complete right upper lobe collapse. There is a left upper lobe 1 cm pulmonary nodule (5:100 and (. There are underlying moderate emphysematous changes and bronchial thickening. MEDIASTINUM: The above-mentioned mass invades the mediastinum. There are enlarged mediastinal lymph nodes present with a 1.4 x 2.4 x 2.7 cm pretracheal lymph node present. Some other smaller lymph nodes are seen in the anterior mediastinum. PLEURA: There is no pleural effusion. No pleural mass or thickening. AXILLA: No lymphadenopathy. UPPER ABDOMEN: Unremarkable. The adrenal glands appear normal. OSSEOUS STRUCTURES: Unremarkable. No evidence of osseous metastatic disease. CT/CT chest w IV con IMPRESSION: 1. Right arlen-/suprahilar mass with occlusion of the right upper lobe bronchus and complete right upper lobe collapse. There is associated no mediastinal lymphadenopathy. Findings are consistent with carcinoma and bronchoscopy with biopsy is recommended 2. 1 cm left upper lobe pulmonary nodule. This nodule had demonstrated fairly long term care social worker stability since at least 2020. Fleischner guidelines were followed. Critical Care Time Critical Care Time Critical Care Time: Yes Total Critical Care Time: 75 Attestation: I have personally provided critical care time. Time includes review of lab data, radiology results, discussion with consultants, and monitoring for potential decompensation. Intervention performed as documented. Discharge Plan Discharge Clinical Impression: Mass of right lung, Acute hyponatremia, Altered mental status Patient Disposition: Admitted As Inpatient Prescriptions: No Action ibuprofen 600 mg tablet 600 mg PO Q8H PRN (Reason: pain) 30 Days Qty: 90 1RF Rx Instructions: take with food cyclobenzaprine 5 mg tablet 5 mg PO TID PRN (Reason: muscle spasm) 30 Days Qty: 90 1RF albuterol sulfate [Ventolin HFA] 90 mcg/actuation HFA aerosol inhaler 1 puff PO Q6H PRN (Reason: shortness of breath or wheezing) 30 Days Qty: 8.5 3RF simvastatin 40 mg tablet 40 mg PO BEDTIME Qty: 90 1RF hydroxyzine HCl 50 mg tablet 50 mg PO BEDTIME Qty: 90 1RF lorazepam 1 mg tablet 1 mg PO BID PRN (Reason: anxiety) 28 Days Qty: 56 0RF aspirin 81 mg tablet,delayed release (DR/EC) 81 mg PO DAILY Qty: 90 3RF escitalopram oxalate 20 mg tablet 20 mg PO DAILY 90 Days Qty: 90 1RF metoprolol succinate 50 mg tablet extended release 24 hr 50 mg PO DAILY Qty: 90 1RF losartan 25 mg tablet 25 mg PO DAILY@0900 90 Days Qty: 90 1RF oxycodone 5 mg tablet 5 mg PO .1-2 times daily PRN (Reason: pain) 10 Days Qty: 20 0RF metoclopramide HCl [Reglan] 5 mg tablet 5 mg PO TIDAC pantoprazole 40 mg tablet,delayed release (DR/EC) 40 mg PO DAILY@0630 ferrous sulfate [Feosol] 325 mg (65 mg iron) tablet 325 mg PO DAILY@0900 alosetron 0.5 mg tablet 1 mg PO DAILY@0900 tiotropium bromide [Spiriva with HandiHaler] 18 mcg capsule, w/inhalation device 1 cap inhalation DAILY@0900 Rx Instructions: puncture 1 cap using device; one dose = 2 inhalations solifenacin 10 mg tablet 10 mg PO DAILY@0900 cholecalciferol (vitamin D3) 50 mcg (2,000 unit) capsule 50 mcg PO DAILY@0900 Rx Instructions: 1 capsule Orally Once a day hydrocortisone 2.5 % cream 1 appl topical BID PRN (Reason: itching) Qty: 30 0RF sucralfate [Carafate] 1 gram tablet 4 g PO DAILY@1200 dextromethorphan-guaifenesin 10-100 mg/5 mL Syrup 10 ml PO TID PRN (Reason: cough) Qty: 237 0RF sodium chloride 1,000 mg Tablet,Soluble 1,000 mg PO BID Qty: 14 0RF amoxicillin-pot clavulanate 875-125 mg tablet 1 tab PO BID Qty: 14 0RF prednisone 10 mg tablets,dose pack See Rx Instructions .ROUTE .COMPLEX Qty: 48 0RF Taper: Prednisone 40 mg daily for 3 Days and 0 Hour 30 mg daily for 3 Days and 0 Hour 20 mg daily for 3 Days and 0 Hour 10 mg daily for 3 Days and 0 Hour Rx Instructions: See Taper orally ;40 mg Daily x3 days, 30 mg daily x3 days, 20 mg daily x3 days, 10 mg daily x3 days. discard remainder Pulmicort Flexhaler 180 mcg/actuation aerosol powdr breath activated 2 inh inhalation BID Qty: 1 0RF mirtazapine 30 mg tablet 30 mg PO BEDTIME 90 Days Qty: 90 1RF Pulmicort Flexhaler 180 mcg/actuation aerosol powdr breath activated 2 inh inhalation BID 30 Days Qty: 1 5RF nicotine 14 mg/24 hr patch 24 hour 1 patch transdermal Q24H MDD smoking 28 Days Qty: 28 2RF Print Language: Slovenian
--- NOTE | 2023-08-24 12:00 | ECG_ITS ---
Test Reason : SOB Blood Pressure : / mmHG Vent. Rate : 065 BPM Atrial Rate : 065 BPM P-R Int : 186 ms QRS Dur : 088 ms QT Int : 414 ms P-R-T Axes : 071 -35 061 degrees QTc Int : 430 ms Sinus rhythm with occasional Premature ventricular complexes Left axis deviation Abnormal ECG When compared with ECG of 09-AUG-2023 09:12, No significant change was found Referred By: Zonia Reyes Electronically Signed By:Tico Edmonds
[2023-08-24 12:30] LABS: MANUAL DIFF FLAG NO
[2023-08-24 12:31] LABS: Basophils Percent Auto 0.4 % (0-2); Eosinophils Absolute Auto 0.1 X10*3/uL (0.0-0.4); Eosinophils Percent Auto 0.5 % (0-4); Hematocrit 37.3 % (37.0-47.0); Hemoglobin 12.5 g/dl (12.0-16.0); Imm Gran Abs Auto 0.11 X10*3/uL (0.00-0.03); Lymphocytes Absolute Auto 2.7 X10*3/uL (1.2-4.9); Lymphocytes Percent Auto 23.8 % (20-40); Mean Corpuscular HGB Conc 33.5 g/dl (31.0-35.0); Mean Corpuscular Hemoglobin 27.8 pg (27.0-33.0); Mean Corpuscular Volume 83.1 fL (80.0-98.0); Mean Platelet Volume 8.5 fL (9.4-12.3); Monocytes Absolute Auto 0.9 X10*3/uL (0.1-1.2); Monocytes Percent Auto 8.3 % (2-11); Neutrophils Absolute Auto 7.4 x10*3/uL (2.0-8.3); Platelet Count 199 X10*3/uL (160-400); Red Blood Count 4.49 X10*6/uL (4.20-5.50); Red Cell Distribution Width 14.6 % (11.0-16.0); White Blood Count 11.2 X10*3/uL (4.8-10.8)
[2023-08-24 12:46] LABS: Alanine Aminotransferase 8 U/L (0-31); Albumin Level 4.1 g/dL (3.5-5.0); Alkaline Phosphatase 63 U/L (39-117); Anion Gap 18 (12-20); Aspartate Amino Transferase 18 U/L (5-31); Bilirubin Direct 0.2 mg/dL (0.0-0.5); Bilirubin Total 0.6 mg/dL (0.0-1.0); Blood Urea Nitrogen 11 mg/dL (9-16); Calcium 9.3 mg/dL (8.4-10.2); Carbon Dioxide 20 mmol/L (22-29); Chloride 94 mmol/L (96-108); Creatinine Clr Calc Pharmacy 65.1; Estimated Glomerular Filt Rate > 60; Glucose Random 96 mg/dL (60-115); Magnesium 1.9 mg/dL (1.6-2.6); Sodium 128 mmol/L (135-145); Total Protein 6.8 g/dL (6.5-8.0)
[2023-08-24] MEDS: iohexoL 350 MG/ML 100 ML INFUS..BTL IV (14:29)
[2023-08-24] MEDS: Piperacillin Sodium/Tazobactam 3.375 GM in 0.9 % Sodium Chloride 50 ML IV (14:38)
[2023-08-24 14:47] LABS: Lactic Acid 2.1 mmol/L (0.5-2.0)
--- NOTE | 2023-08-24 14:47 | PC.NURSE ---
pt returned from CT at this time. multiple attempts made at obtaining IV access but unsuccessful at this time aside from 22gIV in the right thumb that was placed prior to coming back to the main ED. cultures/lactic obtained/sent to lab. IVF/abx administered per provider order. pt extremely tearful/unable to have a conversation d/t crying. pt unable to explain to this RN what brings her in at this time. no sob/wob noted. respirations even and unlabored. plan of care ongoing.
[2023-08-24] MEDS: vancomycin HCL 1,500 MG in 0.9 % Sodium Chloride 500 ML 333.33 MG IV (15:17)
--- NOTE | 2023-08-24 15:17 | PC.NURSE ---
delay in medication d/t limited IV access. medication now administered per provider. pt remains tearful in hallway. vss and up to date. respirations remain even and unlabored. plan of care ongoing.
--- NOTE | 2023-08-24 15:35 | PC.NURSE ---
pt ambulatory to the bathroom and back to stretcher, she reports rectal bleeding, and weakness
[2023-08-24] MEDS: Acetaminophen 325 MG TABLET 975 MG PO (16:18)
--- NOTE | 2023-08-24 16:18 | PC.NURSE ---
pt c/o generalized pain - unable to specify - just states, it's all over. pt medicated per provider order. effectiveness pending.
[2023-08-24 16:27] LABS: Reflex Lactate? Lactic Acid Added
[2023-08-24 17:15] LABS: ~Lactic Acid-LAB USE ONLY 1.5 mmol/L (0.5-2.0)
--- NOTE | 2023-08-24 19:40 | P.HPHOSP_ITS ---
History of Present Illness Date of Service: 08/24/23 Attending physician on admission: Bessie Anaya Chief Complaint: cough, sob, diarrhea 62 yo female with PMH of bronchitis, history of IVDA, history of hepatitis-C, COPD, HTN, HLD, anemia, GERD, IBS, gastroparesis, anxiety, depression with recent admission to [facility] from 07/21-07/23 and again 07/25-07/28 due to COPD exacerbation and pneumonia discharged on Augmentin presented to the ED complaining of nausea, vomiting, diarrhea as well as shortness of breath and cough. She reports the shortness of breath and cough has been ongoing for several weeks with the diarrhea with bright red blood per rectum is new over the last several days. She also developed left lower lung pain last night. She is very tearful and anxious appearing but is able to provide history. On arrival, patient tachypneic to 24, vital signs otherwise stable. Blood pressure did appear to drop to 94/69 but 145/74 with IV fluids. She has a leukocytosis of 11.2. Renal function baseline. Again presents with hyponatremia of 128, chloride 94, CO2 20. Initial lactic acid 2.1 improved to 1.[address] chest with contrast shows right arlen suprahilar mass with occlusion of the right upper lobe bronchus and complete right upper lobe collapse. There is associated mediastinal lymphadenopathy consistent with carcinoma and bronchoscopy with biopsy is recommended. There is also 1 cm left upper lobe nodule that appears stable. She is a current half pack per day cigarette smoker but denies any alcohol use. Denies any recent illicit substance use but does have history of IV drug abuse. Reports marijuana use. In the ED has been treated with 1.7 L IV NS, Tylenol, IV Zosyn, and vancomycin. She will be admitted for further management of postobstructive pneumonia. Review of Systems 2 Review of Systems: General: No fevers, malaise, unintentional weight loss HEENT: No blurred vision, diplopia. No sore throat, nasal congestion, rhinorrhea, sinus pain, ear pain Cardiovascular: No chest pain, palpitations, or leg edema Respiratory: +sob, +cough. No wheezing GI: +n/v/d. No abdominal pain, constipation, melena, hematochezia : No dysuria, hematuria, increased urinary frequency, decreased urinary output MSK: No myalgia, back pain Neuro: No headaches, weakness, paresthesias Skin: No rashes or lesions [facility] Medical History Rectal prolapse Bronchitis Nicotine dependence, cigarettes, uncomplicated Nonrheumatic mitral (valve) insufficiency Pulmonary nodule History of hepatitis C Osteopenia (~2011) COPD (chronic obstructive pulmonary disease) IV drug user Endocarditis of mitral valve (~11/2017) Mitral valve prolapse Mitral regurgitation Early satiety Paresthesia of left leg Allergic rhinitis Facet arthritis of lumbar region Cervical spondylosis Vitamin D deficiency Pure hypercholesterolemia Benign essential hypertension Depression GERD (gastroesophageal reflux disease) Anxiety Family History Father Internal bleeding Mother Medical history unknown Surgical History History of liver biopsy (~2009) History of partial colectomy (~2014) History of hysteroscopy (~2010) History of colonoscopy (~2017) Social History Household Members: None Housing: House Housing Other:: lives alone with her cat Malena Do you presently have visiting nurse or other home services: Yes Alcohol intake: former Patient Tobacco Use Status: Current everyday Tobacco user Tobacco use type: Cigarette Cigarette Packs Per Day: 0.5 Cigarettes Per Day: 6 Years Smoked: 45 years (onset 15, 1/2-3/4ppd x 44yrs, 28pyh) Smoked in Last 30 Days: Yes e-Cigarette/Vaping Use: Never Used Second Hand Smoke Exposure: Yes Use of substances other than those prescribed or required for medical reasons: No Substance Use Type: Marijuana Advance Directives: Yes Advance Directives on File: Yes Advance Directives Date on File: 12/18/21 Do you have a plan to hurt others: No Plan Patient : No service: No Current occupational status: unemployed Sexual orientation: Straight/Heterosexual Gender identity: Female Cognitive needs: No Hearing needs: No Vision needs: Yes Meds Allergies Allergy/AdvReac Type Severity Reaction Status Date / Time No Known Allergies Allergy Unknown unknown Verified 08/24/23 11:57 [NO KNOWN ALLERGIES] Home Medications ?Medication ?Instructions ?Recorded ?Confirmed ?Last Taken ?Type alosetron 0.5 mg tablet 1 mg PO DAILY@0900 07/22/23 08/07/23 07/22/23 History cholecalciferol (vitamin D3) 50 50 mcg PO DAILY@0907/22/23 08/07/23 07/22/23 History mcg (2,000 unit) capsule ferrous sulfate 325 mg (65 mg 325 mg PO DAILY@0900 07/22/23 08/07/23 07/22/23 History iron) tablet (Feosol) metoclopramide HCl 5 mg tablet 5 mg PO TIDAC 07/22/23 08/07/23 Unknown History (Reglan) pantoprazole 40 mg tablet,delayed 40 mg PO DAILY@0630 07/22/23 08/07/23 07/22/23 History release solifenacin 10 mg tablet 10 mg PO DAILY@0907/22/23 08/07/23 07/22/23 History tiotropium bromide 18 mcg capsule 1 cap inhalation DAILY@0900 copd 07/22/23 08/07/23 07/22/23 History with inhalation device (Spiriva with HandiHaler) sucralfate 1 gram tablet (Carafate) 4 g PO DAILY@1200 07/25/23 08/07/23 Unknown History Physical Exam 2 Vital Signs and Narrative: Vital Signs: Last Vital Signs Temp 98.1 F 08/24/23 19:12 Pulse 60 08/24/23 19:12 Resp 16 08/24/23 19:12 BP 145/74 H 08/24/23 19:12 Pulse Ox 96 08/24/23 19:12 O2 Del Method Room Air 08/24/23 19:12 BMI result Body Mass Index 24.0 Constitutional - Awake and Alert, No apparent distress Eyes - PERRLA, EOMI Cardiovascular - S1S2, RRR, No edema Respiratory - Normal lung expansion, Normal respiratory effort, No respiratory distress, bilateral rhonchi with scattered expiratory wheezes Gastrointestinal - NT / ND; +BS; No rebound or guarding Extremities - no calf tenderness bilaterally, no swelling Skin - Warm/Dry Neurological - Alert & oriented x3 Psychological - anxious appearing, tearful Results Labs 08/24/23 12:27 08/24/23 12:27 Labs: Laboratory Results - last 24 hr 05/20/24 05/20/24 05/20/24 12:27 14:24 16:57 MCV 83.1 MCH 27.8 MCHC 33.5 RDW 14.6 Plt Count 199 MPV 8.5 L Immature Gran % (Auto) 1.0 H Neut % (Auto) 66.0 Lymph % (Auto) 23.8 Loving % (Auto) 8.3 Eos % (Auto) 0.5 Baso % (Auto) 0.4 Lymph # (Auto) 2.7 Loving # (Auto) 0.9 Eos # (Auto) 0.1 Baso # (Auto) 0.0 Abs Immat Gran (auto) 0.11 H Absolute Neuts (auto) 7.4 Absolute Nucleated RBC 0.000 Nucleated RBC % (auto) 0.0 Anion Gap 18 Estim Creat Clear Calc 65.1 Estimated GFR > 60 Random Glucose 96 Lactic Acid 2.1 H* Lactic Acid F/U @ 2Hr 1.5 Calcium 9.3 Magnesium 1.9 Total Bilirubin 0.6 Direct Bilirubin 0.2 AST 18 ALT 8 Alkaline Phosphatase 63 Total Protein 6.8 Albumin 4.1 Imaging Radiologist's Impressions: Impressions Chest X-Ray 08/24/23 12:15 IMPRESSION: Extensive opacity in the right suprahilar region and right upper lobe. Interval worsening as compared to previous. This could be related to a mass, upper lobe collapse, consolidation. Recommend further evaluation with CT scan with contrast. Result and recommendations conveyed to YEVGENIY Jacome at 1338 hours on 08/24/[address] 08/24/23 14:29 IMPRESSION: 1. Right arlen-/suprahilar mass with occlusion of the right upper lobe bronchus and complete right upper lobe collapse. There is associated no mediastinal lymphadenopathy. Findings are consistent with carcinoma and bronchoscopy with biopsy is recommended 2. 1 cm left upper lobe pulmonary nodule. This nodule had demonstrated fairly nursing home stability since at least 2020. Fleischner guidelines were followed. Assessment and Plan (1) Postobstructive pneumonia: Status: Acute (2) Lung mass: Status: Acute (3) Acute hyponatremia: Status: Acute Plan 62 yo female with PMH of bronchitis, history of IVDA, history of hepatitis-C, COPD, HTN, HLD, anemia, GERD, IBS, gastroparesis, anxiety, depression admitted for further management of post obstructive pneumonia #Post-obstructive pneumonia -mild leukocytosis 11.2, no sepsis -CT chest with contrast shows right arlen suprahilar mass with occlusion of the right upper lobe bronchus and complete right upper lobe collapse. There is associated mediastinal lymphadenopathy consistent with carcinoma and bronchoscopy with biopsy is recommended. There is also 1 cm left upper lobe nodule that appears stable. -recent admission with discharge 07/28. IV vancomycin and Zosyn (initiated 08/23) -strep pneumo antigen, Legionella antigen, MRSA nasal screen, and sputum culture pending -DuoNebs q.4h while awake -symptomatic management -pulmonology consult -follow CBC, cultures # acute hyponatremia -urine sodium/creatinine/osmolality, serum osmolality pending -fluid restrictions to 1.5 L, hold on further IVF -follow renal function/lytes -consider nephrology consult #Acute diarrhea -possibly r/t augmentin use vs infectious -cdiff pcr and gi panel pending # COPD -does not appear to be in acute exacerbation requiring IV steroids -does have some scattered expiratory wheezing. Will add DuoNebs q.4h while awake, albuterol p.r.n. -continue maintenance inhalers # history of IV drug abuse -cover with vancomycin pending MRSA nasal swab -urine drug screen pending # hypertension -blood pressure reasonably controlled -continue losartan, metoprolol # GERD -PPI # mood disorder -continue home meds DVT prophylaxis-heparin Full code Patient requires inpatient stay at least 2 midnights for IV antibiotic administration due to postobstructive pneumonia which will also require expert consultation possible bronchoscopy Quality Stroke Does the patient have a stroke diagnosis?: No VTE Prior VTE?: No VTE Risk Level:: Medical - moderate - high VTE Device Contraindication: Treatment Not Indicated VTE Drug Contraindication: N/A - Med Ordered
--- NOTE | 2023-08-24 19:56 | PHA.PROG ---
Admission Date/Time: Indication: respiratory infection Weight in k.6 kg Adjusted body weight in Kg: Meridian body weight in Kg: Obesity Dosing Indication % IBW: Serum Creatinine - Last 168 Hours 08/24/23 12:27 Creatinine 0.69 Estimated CrCl and GFR - Last 168 Hours 08/24/23 12:27 Estim Creat Clear Calc 65.1 Estimated GFR > 60 Vancomycin Loading Dose:1500 Current Vancomycin Dosing Regimen: 750 Q12h Vancomycin Monitoring using AUC goal of 400 - 600 range with trough as surrogate marker: 467 Date and Time for next Vancomycin Level to be drawn : 08/26/23 @1300 Pharmacist Comments on Vancomycin Plan: Vancomycin dosing will take advantage of [employer] as a clinical decision support tool that uses Bayesian modeling to calculate individual patient's pharmacokinetic parameters and forecast the patient's drug concentration time course with the target goal AUC 24 range of 400 - 600 mg/L/hr.
[2023-08-24] MEDS: Albuterol/Iprat 2.5/0.5MG 3 ML AMPUL.NEB INHALE (20:26)
[2023-08-24] MEDS: Heparin Sodium,Porcine 5,000 UNIT/ML VIAL 5000 UNIT SUBCUT (20:27)
[2023-08-24] MEDS: Piperacillin Sodium/Tazobactam 4.5 GM in 0.9 % Sodium Chloride 100 ML IV (20:53)
--- NOTE | 2023-08-24 21:01 | PC.NURSE ---
resp. treatment complete, IV abx infusing now
--- NOTE | 2023-08-24 21:14 | PC.NURSE ---
pt ambulated well in hallway, some SOB reported, 96% RA
[2023-08-24] MEDS: ondansetron HCL 4 MG/2 ML VIAL IVPUSH (22:20)
--- NOTE | 2023-08-24 22:22 | PC.NURSE ---
pt c/o nausea, pt medicated per MAR
--- NOTE | 2023-08-24 22:37 | PHA.MEDREC ---
Pharmacy Consult ? Medication Reconciliation Pharmacy has completed the medication reconciliation. Patient poor historian, unable to name medications on her own and had discharge paperwork with her from last visit. Ask specifically about mirtazepine and spiriva which hasn't been filled recently but pt says she takes. Stated she never started her Pulmicort inhaler and no longer takes ferrous sulfate, hydrocortisone cream and sodium chloride tablets
[2023-08-24] MEDS: Acetaminophen 325 MG TABLET 650 MG PO (23:03)
[2023-08-24 23:20] LABS: Osmolality Urine 631 mosm/kg (373-1093)
[2023-08-24 23:24] LABS: Amphetamine Screen Urine Not Detected (Not Detect); Barbiturates, Urine Not Detected (Not Detect); Benzodiazepines Screen Urine Not Detected (Not Detect); Buprenorphine Scr Not Detected (Not Detect); Cannabinoid Screen Urine POSITIVE (Not Detect); Cocaine Screen Urine Not Detected (Not Detect); Fentanyl, urine Not Detected (Not Detect); Methadone Screen, Urine Not Detected (Not Detect); Opiate Screen Urine Not Detected (Not Detect); Oxycodone Screen Urine Not Detected (Not Detect); Phencyclidine Screen Urine Not Detected (Not Detect)
[2023-08-24 23:29] LABS: Creatinine Urine 40.05 mg/dL
[2023-08-24] MEDS: 0.9 % Sodium Chloride Flush 3 ML SYRINGE IVFLUSH (23:57)
[2023-08-25] VITALS (9 sets, daily range): BP systolic 127–165; BP diastolic 69–83; PULSE 57–68; RESP 16–17; TEMP 36.3–36.8; O2SAT 93–96
[2023-08-25] MEDS: Piperacillin Sodium/Tazobactam 4.5 GM in 0.9 % Sodium Chloride 100 ML IV ×4 (02:33→20:13)
[2023-08-25] MEDS: vancomycin HCL 750 MG in 0.9 % Sodium Chloride 250 ML 265 MG IV ×2 (03:08→15:48)
[2023-08-25] MEDS: LORazepam 1 MG TABLET PO (04:19)
[2023-08-25] MEDS: Omeprazole 20 MG CAPSULE.DR PO (05:33)
[2023-08-25 06:18] LABS: MANUAL DIFF FLAG NO
[2023-08-25 06:22] LABS: Basophils Percent Auto 0.4 % (0-2); Eosinophils Absolute Auto 0.1 X10*3/uL (0.0-0.4); Eosinophils Percent Auto 1.6 % (0-4); Hematocrit 33.2 % (37.0-47.0); Imm Gran Abs Auto 0.08 X10*3/uL (0.00-0.03); Imm Gran Pct Auto 1.1 % (0.0-0.4); Lymphocytes Absolute Auto 1.8 X10*3/uL (1.2-4.9); Lymphocytes Percent Auto 26.2 % (20-40); Mean Corpuscular HGB Conc 33.1 g/dl (31.0-35.0); Mean Corpuscular Hemoglobin 27.4 pg (27.0-33.0); Mean Corpuscular Volume 82.6 fL (80.0-98.0); Mean Platelet Volume 8.9 fL (9.4-12.3); Monocytes Absolute Auto 0.5 X10*3/uL (0.1-1.2); Monocytes Percent Auto 7.3 % (2-11); Neutrophils Absolute Auto 4.4 x10*3/uL (2.0-8.3); Neutrophils Percent Auto 63.4 % (45-73); Platelet Count 157 X10*3/uL (160-400); Red Blood Count 4.02 X10*6/uL (4.20-5.50); Red Cell Distribution Width 14.6 % (11.0-16.0)
[2023-08-25 06:55] LABS: Anion Gap 13 (12-20); Blood Urea Nitrogen 6 mg/dL (9-16); Calcium 7.7 mg/dL (8.4-10.2); Carbon Dioxide 18 mmol/L (22-29); Chloride 97 mmol/L (96-108); Creatinine Clr Calc Pharmacy 80.2; Estimated Glomerular Filt Rate > 60; Glucose Random 80 mg/dL (60-115); Potassium 3.8 mmol/L (3.3-5.1); Sodium 124 mmol/L (135-145)
[2023-08-25] MEDS: Heparin Sodium,Porcine 5,000 UNIT/ML VIAL 5000 UNIT SUBCUT ×2 (07:25→20:12)
[2023-08-25] MEDS: Metoclopramide HCl 5 MG TABLET PO ×3 (07:25→15:50)
[2023-08-25] MEDS: 0.9 % Sodium Chloride Flush 3 ML SYRINGE IVFLUSH ×3 (07:26→20:12)
[2023-08-25] MEDS: Albuterol/Iprat 2.5/0.5MG 3 ML AMPUL.NEB INHALE ×3 (08:03→20:30)
[2023-08-25 08:54] LABS: MRSA Nasal PCR NEGATIVE (Negative); SA Nasal PCR NEGATIVE (Negative)
[2023-08-25] MEDS: Tolterodine Tartrate LA 4 MG CAP.ER.24H PO (09:02)
[2023-08-25] MEDS: Nicotine 14 MG PATCH.TD24 TRANSDERMA (09:02)
[2023-08-25] MEDS: Aspirin Enteric Coated 81 MG TABLET.DR PO (09:03)
[2023-08-25] MEDS: Losartan Potassium 25 MG TABLET PO (09:03)
[2023-08-25] MEDS: Metoprolol Succinate ER 50 MG TAB.ER.24H PO (09:03)
[2023-08-25] MEDS: Escitalopram Oxalate 20 MG TABLET PO (09:03)
[2023-08-25] MEDS: guaiFENesin DM 200/20/10 ML 10 ML SYRUP PO (09:03)
[2023-08-25] MEDS: Cholecalciferol (Vitamin D3) 25 MCG TABLET 50 MCG PO (09:03)
--- NOTE | 2023-08-25 10:22 | P.CONNP_ITS ---
History of Present Illness Reason for Consult Consult date: 09/01/23 Chief Complaint Chief complaint: post obstructive pneumonia History of Present Illness Narrative: 62 yo female with h/o bronchitis, history of IVDA, history of hepatitis-C, COPD, HTN, HLD, anemia, GERD, IBS, gastroparesis, anxiety, depression with recent admission to [facility] from 07/21-07/23 and again 07/25-07/28 due to COPD exacerbation and pneumonia discharged on Augmentin presented to the ED complaining of nausea, vomiting, diarrhea as well as shortness of breath and cough. She reports the shortness of breath and cough has been ongoing for several weeks with the diarrhea with bright red blood per rectum is new over the last several days. She also developed left lower lung pain last night. She is very tearful and anxious appearing but is able to provide history. On arrival, patient tachypneic to 24, vital signs otherwise stable. Blood pressure did appear to drop to 94/69 but 145/74 with IV fluids. She has a leukocytosis of 11.2. Renal function baseline. Now with hyponatremia PMFSH Past Medical History Medical History (Updated 08/27/23 @ 17:09 by Vivien Escobar NP) Rectal prolapse Bronchitis Nicotine dependence, cigarettes, uncomplicated Nonrheumatic mitral (valve) insufficiency Pulmonary nodule History of hepatitis C Osteopenia (~2011) COPD (chronic obstructive pulmonary disease) IV drug user Endocarditis of mitral valve (~11/2017) Mitral valve prolapse Mitral regurgitation Early satiety Paresthesia of left leg Allergic rhinitis Facet arthritis of lumbar region Cervical spondylosis Vitamin D deficiency Pure hypercholesterolemia Benign essential hypertension Depression GERD (gastroesophageal reflux disease) Anxiety Family History Family History Father Internal bleeding Mother Medical history unknown Surgical History Surgical History History of liver biopsy (~2009) History of partial colectomy (~2014) History of hysteroscopy (~2010) History of colonoscopy (~2017) Social History Social History Household Members: None Housing: House Housing Other:: lives alone with her cat Malena Do you presently have visiting nurse or other home services: No Alcohol intake: former Patient Tobacco Use Status: Current everyday Tobacco user Tobacco use type: Cigarette Cigarette Packs Per Day: 0.5 Cigarettes Per Day: 6 Years Smoked: 45 years (onset 15, 1/2-3/4ppd x 45yrs, 28pyh) Smoked in Last 30 Days: Yes e-Cigarette/Vaping Use: Never Used Patient Interested in Nicotine Replacement: Yes Second Hand Smoke Exposure: Yes Use of substances other than those prescribed or required for medical reasons: Yes Substance Use Type: Marijuana Currently Displaying Signs/Symptoms of Drug Intoxication Withdrawal: No Have you been hit, kicked, punched, or otherwise hurt by someone within the past year? If so, by whom?: No Do you feel safe in your current relationship?: No Current Relationship Is there a partner from a previous relationship who is making you feel unsafe now?: No Are you made to feel afraid or neglected: No Advance Directives: Yes Advance Directives on File: Yes Advance Directives Date on File: 12/18/21 Do you have a plan to hurt others: No Plan Recently lost weight without trying: No Nutrition Risks: No Nutritional Risk Patient : No : No Poor oral hygiene: No service: No Current occupational status: unemployed Sexual orientation: Straight/Heterosexual Gender identity: Female Cognitive needs: No Hearing needs: No Vision needs: Yes Meds Allergies Allergy/AdvReac Type Severity Reaction Status Date / Time No Known Allergies Allergy Unknown unknown Verified 08/24/23 11:57 [NO KNOWN ALLERGIES] Active Medications: Current Medications Acetaminophen (Acetaminophen 325 Mg Tablet) 650 mg PO Q6H PRN PRN Reason: Pain, Mild (Pain Scale 1-3) Last Admin: 08/24/23 23:03 Dose: 650 mg Albuterol/Ipratropium (Albuterol/Iprat 2.5/0.5mg 3 Ml Ampul.Neb) 3 ml INHALE RQ4H WHILE AWAKE [facility] Last Admin: 08/25/23 08:03 Dose: 3 ml Aspirin (Aspirin Enteric Coated 81 Mg Tablet.) 81 mg PO DAILY [facility] Last Admin: 08/25/23 09:03 Dose: 81 mg Atorvastatin Calcium (Atorvastatin Calcium 20 Mg Tablet) 20 mg PO BEDTIME [facility] Cyclobenzaprine HCl (Cyclobenzaprine Hcl 5 Mg Tablet) 5 mg PO TID PRN PRN Reason: muscle spasm Escitalopram Oxalate (Escitalopram Oxalate 20 Mg Tablet) 20 mg PO DAILY [facility] Last Admin: 08/25/23 09:03 Dose: 20 mg Fluticasone Propionate (Fluticasone Propionate Nasal 16 Gm [place]) 1 spray NOSTRIL-B DAILY [facility] Guaifenesin/Dextromethorphan (Guaifenesin Dm 200/20/10 Ml 10 Ml Syrup) 10 ml PO TID PRN PRN Reason: cough Last Admin: 08/25/23 09:03 Dose: 10 ml Heparin Sodium (Porcine) (Heparin Sodium,Porcine 5,000 Unit/Ml Vial) 5,000 unit SUBCUT Q12H [facility] Last Admin: 08/25/23 07:25 Dose: 5,000 unit Hydroxyzine HCl (Hydroxyzine Hcl 50 Mg Tablet) 50 mg PO BEDTIME [facility] Piperacillin Sod/Tazobactam (Sod 4.5 gm/ Sodium Chloride) 100 mls @ 200 mls/hr IV Q6H [facility] Last Admin: 08/25/23 09:03 Dose: 200 mls/hr Vancomycin HCl 750 mg/ Sodium (Chloride) 265 mls @ 265 mls/hr IV Q12H [facility] Last Infusion: 08/25/23 04:17 Dose: Infused Lorazepam (Lorazepam 1 Mg Tablet) 1 mg PO BID PRN PRN Reason: anxiety Last Admin: 08/25/23 04:19 Dose: 1 mg Losartan Potassium (Losartan Potassium 25 Mg Tablet) 25 mg PO DAILY@0900 [facility]; Protocol Last Admin: 08/25/23 09:03 Dose: 25 mg Magnesium Hydroxide (Milk Of Magnesia 30 Ml Oral.Susp) 30 ml PO DAILY PRN PRN Reason: Constipation Metoclopramide HCl (Metoclopramide Hcl 5 Mg Tablet) 5 mg PO TIDAC [facility] Last Admin: 08/25/23 07:25 Dose: 5 mg Metoprolol Succinate (Metoprolol Succinate Er 50 Mg Tab.Er.24h) 50 mg PO DAILY [facility]; Protocol Last Admin: 08/25/23 09:03 Dose: 50 mg Mirtazapine (Mirtazapine 30 Mg Tablet) 30 mg PO BEDTIME [facility] Nicotine (Nicotine 14 Mg Patch.Td24) 14 mg TRANSDERMA DAILY [facility] Last Admin: 08/25/23 09:02 Dose: 14 mg Non-Formulary Medication (Alosetron) 1 mg PO DAILY@0900 [facility] Omeprazole (Omeprazole 20 Mg Capsule.Dr) 20 mg PO DAILY@0630 [facility] Last Admin: 08/25/23 05:33 Dose: 20 mg Ondansetron HCl (Ondansetron Hcl 4 Mg/2 Ml Vial) 4 mg IVPUSH Q8H PRN PRN Reason: Nausea and Vomiting Last Admin: 08/24/23 22:20 Dose: 4 mg Oxycodone HCl (Oxycodone Hcl Immed Release 5 Mg Tablet) 5 mg PO BID PRN PRN Reason: Pain, Moderate(Pain Scale 4-6) Pharmacy Consult (Consult Rx Vancomycin Dosing) 1 each MISCELLANE DAILY PRN PRN Reason: Consult order Sodium Chloride (0.9 % Sodium Chloride Flush 3 Ml Syringe) 3 ml IVFLUSH QSHIFT [facility] Last Admin: 08/25/23 07:26 Dose: 3 ml Sucralfate (Sucralfate 1 Gm Tablet) 4 gm PO DAILY@1200 [facility] Tiotropium [place] (Tiotropium [place] 2.5 Mcg 1 Puff/2.5 Mcg Mist.Inhal) 2 puff INHALE RDAILY [facility] Last Admin: 08/25/23 08:05 Dose: Not Given Tolterodine Tartrate (Tolterodine Tartrate La 4 Mg Cap.Er.24h) 4 mg PO DAILY@09 [facility] Last Admin: 08/25/23 09:02 Dose: 4 mg Vitamin D (Cholecalciferol (Vitamin D3) 25 Mcg Tablet) 50 mcg PO DAILY@09 [facility] Last Admin: 08/25/23 09:03 Dose: 50 mcg Home Medications ?Medication ?Instructions ?Recorded ?Confirmed ?Last Taken ?Type alosetron 0.5 mg tablet 1 mg PO DAILY@89907/22/23 08/24/23 07/22/23 History cholecalciferol (vitamin D3) 50 50 mcg PO DAILY@89907/22/23 08/24/23 07/22/23 History mcg (2,000 unit) capsule metoclopramide HCl 5 mg tablet 5 mg PO TIDAC 07/22/23 08/24/23 Unknown History (Reglan) pantoprazole 40 mg tablet,delayed 40 mg PO DAILY@0607/22/23 08/24/23 07/22/23 History release solifenacin 10 mg tablet 10 mg PO DAILY@89907/22/23 08/24/23 07/22/23 History tiotropium bromide 18 mcg capsule 1 cap inhalation DAILY@0900 [facility]d 07/22/23 08/24/23 07/22/23 History with inhalation device (Spiriva with HandiHaler) sucralfate 1 gram tablet (Carafate) 4 g PO DAILY@1200 07/25/23 08/24/23 Unknown History fluticasone propionate 50 1 spray intranasal DAILY 08/24/23 08/24/23 Unknown History mcg/actuation nasal spray,suspension Physical Exam Vital Signs: Last Vital Signs Temp 98.1 F 08/25/23 07:08 Pulse 61 08/25/23 09:03 Resp 17 08/25/23 08:04 BP 130/83 08/25/23 09:03 Pulse Ox 93 08/25/23 07:08 O2 Del Method Room Air 08/25/23 07:08 BMI result Body Mass Index 24.0 Const General: comfortable Nutritional Appearance: well nourished Orientation/consciousness: patient oriented x3 HEENT Head: No normal to inspection Mouth: moist mucous membranes Neck Neck: Yes supple and Yes no JVD Cardio Jugular venous distension: no JVD Palpation: no palpable S3 and no palpable S4 Heart sounds: no rubs GI Palpation (GI): Soft to palpation and nontender Percussion: No Fluid wave present General: Yes no CVA tenderness Back/Spine/Pelvis Back: no CVA tenderness Skin General skin exam: no rashes or lesions noted Neuro General: patient oriented x3 Extrem General: Yes no pedal edema and No clubbing Results Lab Results 08/31/23 05:05 09/01/23 05:58 Lab results: Chemistry 08/24/23 08/25/23 12:27 05:26 Sodium 128 L 124 L Potassium 4.0 3.8 Carbon Dioxide 20 L 18 L BUN 11 6 L Creatinine 0.69 0.56 Calcium 9.3 7.7 L D Hematology 08/24/23 08/25/23 12:27 05:26 WBC 11.2 H 7.0 Hgb 12.5 11.0 L Plt Count 199 157 L Urine Studies 08/24/23 23:02 Urine Osmolality 631 Urine Creatinine 40.05 Assessment and Plan (1) Acute hyponatremia: Status: Acute Plan Due to Non osmotic ADH release due to Lung mass : SIADH Suggest Restrict PO water intake to 1.2L per 24 hrs Add UREA powder 30 gm PO BID x 3 days Goal to correct Na at a rate of 0.5 to 1 mmol/L.hr ; NOt more than 1o meq in 24 hrs Follow Na levels closely ; Q 4- 6 hrs Hold SSRIs for now Avoid Thiazide type diuretics Procedures Date of Service Date of Service: 09/01/23
[2023-08-25] MEDS: Urea 15 GM POWDER 30 GM PO ×2 (10:43→20:12)
[2023-08-25] MEDS: Fluticasone Propionate Nasal 16 GM SPRAY 1 SPRAY NOSTRIL-B (10:44)
--- NOTE | 2023-08-25 11:51 | P.PNIM_ITS ---
Subjective Subjective Date of Service: 08/25/23 Interval History: cough improved Physical Exam 2 Vital Signs: Vital Signs: Last Vital Signs Temp 98.1 F 08/25/23 07:08 Pulse 61 08/25/23 09:03 Resp 17 08/25/23 08:04 BP 130/83 08/25/23 09:03 Pulse Ox 93 08/25/23 07:08 O2 Del Method Room Air 08/25/23 07:08 BMI result Body Mass Index 24.0 General: AO X 3, no acute distress Resp: CTA bilateral, no accessory muscles used CVS: S1,S2,RRR GI: soft, non tender, non distended Neuro: motor grossly intact, alert Psych: appropriate affect, appropriate insight Objective Data Active Medications Acetaminophen (Acetaminophen 325 Mg Tablet) 650 mg PO Q6H PRN PRN Reason: Pain, Mild (Pain Scale 1-3) Last Admin: 08/24/23 23:03 Dose: 650 mg Documented By: VERNON Albuterol/Ipratropium (Albuterol/Iprat 2.5/0.5mg 3 Ml Ampul.Neb) 3 ml INHALE RQ4H WHILE AWAKE [facility] Last Admin: 08/25/23 11:11 Dose: Not Given Documented By: CECILIA Non-Admin Reason: Patient Refused Aspirin (Aspirin Enteric Coated 81 Mg Tablet.) 81 mg PO DAILY [facility] Last Admin: 08/25/23 09:03 Dose: 81 mg Documented By: VIJAYA Atorvastatin Calcium (Atorvastatin Calcium 20 Mg Tablet) 20 mg PO BEDTIME [facility] Cyclobenzaprine HCl (Cyclobenzaprine Hcl 5 Mg Tablet) 5 mg PO TID PRN PRN Reason: muscle spasm Escitalopram Oxalate (Escitalopram Oxalate 20 Mg Tablet) 20 mg PO DAILY [facility] Last Admin: 08/25/23 09:03 Dose: 20 mg Documented By: VIJAYA Fluticasone Propionate (Fluticasone Propionate Nasal 16 Gm [place]) 1 spray NOSTRIL-B DAILY [facility] Last Admin: 08/25/23 10:44 Dose: 1 spray Documented By: VIJAYA Guaifenesin/Dextromethorphan (Guaifenesin Dm 200/20/10 Ml 10 Ml Syrup) 10 ml PO TID PRN PRN Reason: cough Last Admin: 08/25/23 09:03 Dose: 10 ml Documented By: VIJAYA Heparin Sodium (Porcine) (Heparin Sodium,Porcine 5,000 Unit/Ml Vial) 5,000 unit SUBCUT Q12H [facility] Last Admin: 08/25/23 07:25 Dose: 5,000 unit Documented By: VIJAYA Hydroxyzine HCl (Hydroxyzine Hcl 50 Mg Tablet) 50 mg PO BEDTIME [facility] Piperacillin Sod/Tazobactam (Sod 4.5 gm/ Sodium Chloride) 100 mls @ 200 mls/hr IV Q6H [facility] Last Infusion: 08/25/23 10:39 Dose: Infused Documented By: VIJAYA Vancomycin HCl 750 mg/ Sodium (Chloride) 265 mls @ 265 mls/hr IV Q12H [facility] Last Infusion: 08/25/23 04:17 Dose: Infused Documented By: GEM Lorazepam (Lorazepam 1 Mg Tablet) 1 mg PO BID PRN PRN Reason: anxiety Last Admin: 08/25/23 04:19 Dose: 1 mg Documented By: GEM Losartan Potassium (Losartan Potassium 25 Mg Tablet) 25 mg PO DAILY@0900 [facility]; Protocol Last Admin: 08/25/23 09:03 Dose: 25 mg Documented By: VIJAYA Magnesium Hydroxide (Milk Of Magnesia 30 Ml Oral.Susp) 30 ml PO DAILY PRN PRN Reason: Constipation Metoclopramide HCl (Metoclopramide Hcl 5 Mg Tablet) 5 mg PO TIDAC [facility] Last Admin: 08/25/23 07:25 Dose: 5 mg Documented By: VIJAYA Metoprolol Succinate (Metoprolol Succinate Er 50 Mg Tab.Er.24h) 50 mg PO DAILY [facility]; Protocol Last Admin: 08/25/23 09:03 Dose: 50 mg Documented By: VIJAYA Mirtazapine (Mirtazapine 30 Mg Tablet) 30 mg PO BEDTIME [facility] Nicotine (Nicotine 14 Mg Patch.Td24) 14 mg TRANSDERMA DAILY [facility] Last Admin: 08/25/23 09:02 Dose: 14 mg Documented By: VIJAYA Non-Formulary Medication (Alosetron) 1 mg PO DAILY@0900 [facility] Omeprazole (Omeprazole 20 Mg Capsule.Dr) 20 mg PO DAILY@0630 [facility] Last Admin: 08/25/23 05:33 Dose: 20 mg Documented By: GEM Ondansetron HCl (Ondansetron Hcl 4 Mg/2 Ml Vial) 4 mg IVPUSH Q8H PRN PRN Reason: Nausea and Vomiting Last Admin: 08/24/23 22:20 Dose: 4 mg Documented By: VERNON Oxycodone HCl (Oxycodone Hcl Immed Release 5 Mg Tablet) 5 mg PO BID PRN PRN Reason: Pain, Moderate(Pain Scale 4-6) Pharmacy Consult (Consult Rx Vancomycin Dosing) 1 each MISCELLANE DAILY PRN PRN Reason: Consult order Sodium Chloride (0.9 % Sodium Chloride Flush 3 Ml Syringe) 3 ml IVFLUSH QSHIFT [facility] Last Admin: 08/25/23 07:26 Dose: 3 ml Documented By: VIJAYA Sucralfate (Sucralfate 1 Gm Tablet) 4 gm PO DAILY@1200 [facility] Tiotropium [place] (Tiotropium [place] 2.5 Mcg 1 Puff/2.5 Mcg Mist.Inhal) 2 puff INHALE RDAILY [facility] Last Admin: 08/25/23 08:05 Dose: Not Given Documented By: CECILIA Non-Admin Reason: pharmacy called for med Tolterodine Tartrate (Tolterodine Tartrate La 4 Mg Cap.Er.24h) 4 mg PO DAILY@0900 [facility] Last Admin: 08/25/23 09:02 Dose: 4 mg Documented By: VIJAYA Urea (Urea 15 Gm Powder) 30 gm PO BID [facility] Stop: 08/27/23 23:59 Last Admin: 08/25/23 10:43 Dose: 30 gm Documented By: VIJAYA Vitamin D (Cholecalciferol (Vitamin D3) 25 Mcg Tablet) 50 mcg PO DAILY@0900 [facility] Last Admin: 08/25/23 09:03 Dose: 50 mcg Documented By: VIJAYA Labs 08/25/23 05:26 08/25/23 05:26 Labs: Laboratory Results - last 24 hr 08/24/23 08/24/23 08/24/23 12:27 14:24 16:57 MCV 83.1 MCH 27.8 MCHC 33.5 RDW 14.6 Plt Count 199 MPV 8.5 L Immature Gran % (Auto) 1.0 H Neut % (Auto) 66.0 Lymph % (Auto) 23.8 [place] % (Auto) 8.3 Eos % (Auto) 0.5 Baso % (Auto) 0.4 Lymph # (Auto) 2.7 [place] # (Auto) 0.9 Eos # (Auto) 0.1 Baso # (Auto) 0.0 Abs Immat Gran (auto) 0.11 H Absolute Neuts (auto) 7.4 Absolute Nucleated RBC 0.000 Nucleated RBC % (auto) 0.0 Anion Gap 18 Estim Creat Clear Calc 65.1 Estimated GFR > 60 Random Glucose 96 Lactic Acid 2.1 H* Lactic Acid F/U @ 2Hr 1.5 Calcium 9.3 Magnesium 1.9 Total Bilirubin 0.6 Direct Bilirubin 0.2 AST 18 ALT 8 Alkaline Phosphatase 63 Total Protein 6.8 Albumin 4.1 Urine Osmolality Ur Random Sodium Urine Creatinine Nasal Screen MRSA (PCR) Nasal S. aureus Screen Nasal MRSA/S.aureus Interp Urine Opiates Screen Ur Buprenorphine Scrn Ur Oxycodone Screen Urine Methadone Screen Urine Fentanyl Screen Ur Barbiturates Screen Ur Phencyclidine Scrn Ur Amphetamines Screen U Benzodiazepines Scrn Urine Cocaine Screen U Marijuana (THC) Screen C. difficile Tox B Gene 08/24/23 08/24/23 08/25/23 23:02 23:55 05:26 MCV 82.6 MCH 27.4 MCHC 33.1 RDW 14.6 Plt Count 157 L MPV 8.9 L Immature Gran % (Auto) 1.1 H Neut % (Auto) 63.4 Lymph % (Auto) 26.2 [place] % (Auto) 7.3 Eos % (Auto) 1.6 Baso % (Auto) 0.4 Lymph # (Auto) 1.8 [place] # (Auto) 0.5 Eos # (Auto) 0.1 Baso # (Auto) 0.0 Abs Immat Gran (auto) 0.08 H Absolute Neuts (auto) 4.4 Absolute Nucleated RBC 0.000 Nucleated RBC % (auto) 0.0 Anion Gap 13 Estim Creat Clear Calc 80.2 Estimated GFR > 60 Random Glucose 80 Lactic Acid Lactic Acid F/U @ 2Hr Calcium 7.7 L D Magnesium Total Bilirubin Direct Bilirubin AST ALT Alkaline Phosphatase Total Protein Albumin Urine Osmolality 631 Ur Random Sodium 256.0 Urine Creatinine 40.05 Nasal Screen MRSA (PCR) NEGATIVE Nasal S. aureus Screen NEGATIVE Nasal MRSA/S.aureus Interp SEE NOTE Urine Opiates Screen Not Detected Ur Buprenorphine Scrn Not Detected Ur Oxycodone Screen Not Detected Urine Methadone Screen Not Detected Urine Fentanyl Screen Not Detected Ur Barbiturates Screen Not Detected Ur Phencyclidine Scrn Not Detected Ur Amphetamines Screen Not Detected U Benzodiazepines Scrn Not Detected Urine Cocaine Screen Not Detected U Marijuana (THC) Screen POSITIVE H C. difficile Tox B Gene 08/25/23 Unknown MCV MCH MCHC RDW Plt Count MPV Immature Gran % (Auto) Neut % (Auto) Lymph % (Auto) [place] % (Auto) Eos % (Auto) Baso % (Auto) Lymph # (Auto) [place] # (Auto) Eos # (Auto) Baso # (Auto) Abs Immat Gran (auto) Absolute Neuts (auto) Absolute Nucleated RBC Nucleated RBC % (auto) Anion Gap Estim Creat Clear Calc Estimated GFR Random Glucose Lactic Acid Lactic Acid F/U @ 2Hr Calcium Magnesium Total Bilirubin Direct Bilirubin AST ALT Alkaline Phosphatase Total Protein Albumin Urine Osmolality Ur Random Sodium Urine Creatinine Nasal Screen MRSA (PCR) Nasal S. aureus Screen Nasal MRSA/S.aureus Interp Urine Opiates Screen Ur Buprenorphine Scrn Ur Oxycodone Screen Urine Methadone Screen Urine Fentanyl Screen Ur Barbiturates Screen Ur Phencyclidine Scrn Ur Amphetamines Screen U Benzodiazepines Scrn Urine Cocaine Screen U Marijuana (THC) Screen C. difficile Tox B Gene TNP Assessment and Plan (1) Acute hyponatremia: Status: Acute Plan 62F pmh COPD, hcv, HTN, HLD, anemia, GERD, IBS, gastroparesis, anxiety, depression presented with cough, sob, found to have postobstructive pneumonia Postobstructive pneumonia due to right hilar mass Continue empiric IV vancomycin Zosyn, follow-up cultures Pulmonary consult for possible bronchoscopy Follow-up cultures, PCRs Acute hyponatremia Likely SIADH due to pulmonary disease Fluid restrict, urea, Nephro, monitor COPD Continue bronchodilators Hypertension Losartan, metoprolol DVT prophylaxis-heparin subQ Full code reason for continued hospitalization: Severe hyponatremia Quality Stroke Does the patient have a stroke diagnosis?: No VTE Prior VTE?: No VTE Risk Level:: Medical - moderate - high VTE Device Contraindication: Treatment Not Indicated VTE Drug Contraindication: N/A - Med Ordered
[2023-08-25] MEDS: Sucralfate 1 GM TABLET 4 GM PO (12:10)
--- NOTE | 2023-08-25 12:16 | MHC.CM.PN ---
PT IS INDEPENDENT HAS A RIDE HOME HAD NO PREVIOUS SERVIES DC PLAN HOME NO SERVICES
[2023-08-25 13:10] LABS: Adenovirus F 40/41 Not Detected (Not Detect.); Astrovirus Not Detected (Not Detect.); Campylobacter Not Detected (Not Detect.); Cryptosporidium Not Detected (Not Detect.); Cyclospora cayetanensis Not Detected (Not Detect.); E. coli EAEC Not Detected (Not Detect.); E. coli EPEC Not Detected (Not Detect.); E. coli ETEC Not Detected (Not Detect.); E. coli STEC Not Detected (Not Detect.); Entamoeba histolytica Not Detected (Not Detect.); Giardia lamblia Not Detected (Not Detect.); Norovirus GI/GII Not Detected (Not Detect.); Plesiomonas shigelloides Not Detected (Not Detect.); Rotavirus A Not Detected (Not Detect.); Salmonella Not Detected (Not Detect.); Sapovirus Not Detected (Not Detect.); Shigella sp./EIEC Not Detected (Not Detect.); Vibrio Not Detected (Not Detect.); Vibrio Cholerae Not Detected (Not Detect.); Yersinia enterocolitica Not Detected (Not Detect.)
--- NOTE | 2023-08-25 16:29 | P.CONPL_ITS ---
History of Present Illness History of Present Illness Consult date: 08/25/23 Chief complaint: post obstructive pneumonia Narrative: 63-year-old lady with underlying at least mild COPD, IV drug abuse, hep C, patient of Dr. Padilla, followed by a lung cancer screening with normal screening CT in June of 2023 admitted on 08/24/2023 with dyspnea and nausea. Patient was noted to be hyponatremic and was admitted to the [facility]. CT chest was obtained that demonstrated right upper lobe collapse with possible postobstructive pneumonia. She was started on empiric antibiotic therapy and pulmonary evaluation was requested for possible bronchoscopic evaluation. Of note, patient is on low-dose aspirin therapy. Review of Systems 2 Constitutional: Constitutional: Denies daytime sleepiness, Denies excessive sweating, Denies fatigue, Denies fever(s), Denies lethargy, Denies malaise, Denies night sweats, Denies snoring and Denies weight loss Eyes: Eyes: Denies blurry vision and Denies itchy eyes ENT: Denies nasal congestion, Denies post nasal drip, Denies sinus pain, Denies sinus pressure and Denies other ( Thrush) Cardiovascular: Cardiovascular: Denies chest pain, Denies pedal edema, Denies dyspnea, Denies orthopnea and Denies paroxysmal nocturnal dyspnea Respiratory: Respiratory: Denies cough, Denies hemoptysis, Denies excessive phlegm production, Denies dyspnea, Denies snoring and Denies wheezing Gastrointestinal: Gastrointestinal: Denies abdominal pain and Denies heartburn Musculoskeletal: Musculoskeletal: Denies myalgias, Denies arthralgias and Denies joint swelling Integumentary/Breasts: Skin/Breast: Denies rash Neurologic: Denies memory loss and Denies seizure-like activity Psychiatric: Psychiatric: Denies abnormal sleep pattern, Denies anxiety and Denies memory loss Endocrine: Endocrine: Denies excessive sweating, Denies fatigue and Denies heat intolerance Hematologic/Lymphatic: Hematologic/Lymphatic: Denies easy bruising Allergic/Immunologic: Allergic/Immunologic: Denies itchy eyes, Denies seasonal rhinorrhea and Denies wheezing PMFSH Past Medical History Medical History (Updated 08/25/23 @ 16:33 by Chris Gross MD) Rectal prolapse Bronchitis Nicotine dependence, cigarettes, uncomplicated Nonrheumatic mitral (valve) insufficiency Pulmonary nodule History of hepatitis C Osteopenia (~2011) COPD (chronic obstructive pulmonary disease) IV drug user Endocarditis of mitral valve (~11/2017) Mitral valve prolapse Mitral regurgitation Early satiety Paresthesia of left leg Allergic rhinitis Facet arthritis of lumbar region Cervical spondylosis Vitamin D deficiency Pure hypercholesterolemia Benign essential hypertension Depression GERD (gastroesophageal reflux disease) Anxiety Family History Family History Father Internal bleeding Mother Medical history unknown Surgical History Surgical History History of liver biopsy (~2009) History of partial colectomy (~2014) History of hysteroscopy (~2010) History of colonoscopy (~2017) Social History Social History Household Members: None Housing: House Housing Other:: lives alone with her cat Malena Do you presently have visiting nurse or other home services: No Alcohol intake: former Patient Tobacco Use Status: Current everyday Tobacco user Tobacco use type: Cigarette Cigarette Packs Per Day: 0.5 Cigarettes Per Day: 6 Years Smoked: 45 years (onset 15, 1/2-3/4ppd x 45yrs, 28pyh) Smoked in Last 30 Days: Yes e-Cigarette/Vaping Use: Never Used Patient Interested in Nicotine Replacement: Yes Second Hand Smoke Exposure: Yes Use of substances other than those prescribed or required for medical reasons: Yes Substance Use Type: Marijuana Currently Displaying Signs/Symptoms of Drug Intoxication Withdrawal: No Have you been hit, kicked, punched, or otherwise hurt by someone within the past year? If so, by whom?: No Do you feel safe in your current relationship?: No Current Relationship Is there a partner from a previous relationship who is making you feel unsafe now?: No Are you made to feel afraid or neglected: No Advance Directives: Yes Advance Directives on File: Yes Advance Directives Date on File: 12/18/21 Do you have a plan to hurt others: No Plan Recently lost weight without trying: No Nutrition Risks: No Nutritional Risk Patient : No : No Poor oral hygiene: No service: No Current occupational status: unemployed Sexual orientation: Straight/Heterosexual Gender identity: Female Cognitive needs: No Hearing needs: No Vision needs: Yes Meds Allergies Allergy/AdvReac Type Severity Reaction Status Date / Time No Known Allergies Allergy Unknown unknown Verified 08/24/23 11:57 [NO KNOWN ALLERGIES] Active Medications: Current Medications Acetaminophen (Acetaminophen 325 Mg Tablet) 650 mg PO Q6H PRN PRN Reason: Pain, Mild (Pain Scale 1-3) Last Admin: 08/24/23 23:03 Dose: 650 mg Albuterol/Ipratropium (Albuterol/Iprat 2.5/0.5mg 3 Ml Ampul.Neb) 3 ml INHALE RQ4H WHILE AWAKE [facility] Last Admin: 08/25/23 15:08 Dose: 3 ml Aspirin (Aspirin Enteric Coated 81 Mg Tablet.Dr) 81 mg PO DAILY [facility] Last Admin: 08/25/23 09:03 Dose: 81 mg Atorvastatin Calcium (Atorvastatin Calcium 20 Mg Tablet) 20 mg PO BEDTIME [facility] Cyclobenzaprine HCl (Cyclobenzaprine Hcl 5 Mg Tablet) 5 mg PO TID PRN PRN Reason: muscle spasm Escitalopram Oxalate (Escitalopram Oxalate 20 Mg Tablet) 20 mg PO DAILY [facility] Last Admin: 08/25/23 09:03 Dose: 20 mg Fluticasone Propionate (Fluticasone Propionate Nasal 16 Gm [place]) 1 spray NOSTRIL-B DAILY [facility] Last Admin: 08/25/23 10:44 Dose: 1 spray Guaifenesin/Dextromethorphan (Guaifenesin Dm 200/20/10 Ml 10 Ml Syrup) 10 ml PO TID PRN PRN Reason: cough Last Admin: 08/25/23 09:03 Dose: 10 ml Heparin Sodium (Porcine) (Heparin Sodium,Porcine 5,000 Unit/Ml Vial) 5,000 unit SUBCUT Q12H [facility] Last Admin: 08/25/23 07:25 Dose: 5,000 unit Hydroxyzine HCl (Hydroxyzine Hcl 50 Mg Tablet) 50 mg PO BEDTIME [facility] Piperacillin Sod/Tazobactam (Sod 4.5 gm/ Sodium Chloride) 100 mls @ 200 mls/hr IV Q6H [facility] Last Infusion: 08/25/23 15:53 Dose: Infused Vancomycin HCl 750 mg/ Sodium (Chloride) 265 mls @ 265 mls/hr IV Q12H [facility] Last Admin: 08/25/23 15:48 Dose: 265 mls/hr Lorazepam (Lorazepam 1 Mg Tablet) 1 mg PO BID PRN PRN Reason: anxiety Last Admin: 08/25/23 04:19 Dose: 1 mg Losartan Potassium (Losartan Potassium 25 Mg Tablet) 25 mg PO DAILY@0900 [facility]; Protocol Last Admin: 08/25/23 09:03 Dose: 25 mg Magnesium Hydroxide (Milk Of Magnesia 30 Ml Oral.Susp) 30 ml PO DAILY PRN PRN Reason: Constipation Metoclopramide HCl (Metoclopramide Hcl 5 Mg Tablet) 5 mg PO TIDAC [facility] Last Admin: 08/25/23 15:50 Dose: 5 mg Metoprolol Succinate (Metoprolol Succinate Er 50 Mg Tab.Er.24h) 50 mg PO DAILY [facility]; Protocol Last Admin: 08/25/23 09:03 Dose: 50 mg Mirtazapine (Mirtazapine 30 Mg Tablet) 30 mg PO BEDTIME [facility] Nicotine (Nicotine 14 Mg Patch.Td24) 14 mg TRANSDERMA DAILY [facility] Last Admin: 08/25/23 09:02 Dose: 14 mg Non-Formulary Medication (Alosetron) 1 mg PO DAILY@0900 [facility] Omeprazole (Omeprazole 20 Mg Capsule.Dr) 20 mg PO DAILY@0630 [facility] Last Admin: 08/25/23 05:33 Dose: 20 mg Ondansetron HCl (Ondansetron Hcl 4 Mg/2 Ml Vial) 4 mg IVPUSH Q8H PRN PRN Reason: Nausea and Vomiting Last Admin: 08/24/23 22:20 Dose: 4 mg Oxycodone HCl (Oxycodone Hcl Immed Release 5 Mg Tablet) 5 mg PO BID PRN PRN Reason: Pain, Moderate(Pain Scale 4-6) Pharmacy Consult (Consult Rx Vancomycin Dosing) 1 each MISCELLANE DAILY PRN PRN Reason: Consult order Sodium Chloride (0.9 % Sodium Chloride Flush 3 Ml Syringe) 3 ml IVFLUSH QSHIFT [facility] Last Admin: 08/25/23 14:59 Dose: 3 ml Sucralfate (Sucralfate 1 Gm Tablet) 4 gm PO DAILY@1200 [facility] Last Admin: 08/25/23 12:10 Dose: 4 gm Tiotropium [place] (Tiotropium [place] 2.5 Mcg 1 Puff/2.5 Mcg Mist.Inhal) 2 puff INHALE RDAILY [facility] Last Admin: 08/25/23 08:05 Dose: Not Given Tolterodine Tartrate (Tolterodine Tartrate La 4 Mg Cap.Er.24h) 4 mg PO DAILY@0900 [facility] Last Admin: 08/25/23 09:02 Dose: 4 mg Urea (Urea 15 Gm Powder) 30 gm PO BID [facility] Stop: 08/27/23 23:59 Last Admin: 08/25/23 10:43 Dose: 30 gm Vitamin D (Cholecalciferol (Vitamin D3) 25 Mcg Tablet) 50 mcg PO DAILY@0900 [facility] Last Admin: 08/25/23 09:03 Dose: 50 mcg Home Medications ?Medication ?Instructions ?Recorded ?Confirmed ?Last Taken ?Type alosetron 0.5 mg tablet 1 mg PO DAILY@0907/22/23 08/24/23 07/22/23 History cholecalciferol (vitamin D3) 50 50 mcg PO DAILY@0907/22/23 08/24/23 07/22/23 History mcg (2,000 unit) capsule metoclopramide HCl 5 mg tablet 5 mg PO TIDAC 07/22/23 08/24/23 Unknown History (Reglan) pantoprazole 40 mg tablet,delayed 40 mg PO DAILY@0630 07/22/23 08/24/23 07/22/23 History release solifenacin 10 mg tablet 10 mg PO DAILY@0900 07/22/23 08/24/23 07/22/23 History tiotropium bromide 18 mcg capsule 1 cap inhalation DAILY@0900 copd 07/22/23 08/24/23 07/22/23 History with inhalation device (Spiriva with HandiHaler) sucralfate 1 gram tablet (Carafate) 4 g PO DAILY@1200 07/25/23 08/24/23 Unknown History fluticasone propionate 50 1 spray intranasal DAILY 08/24/23 08/24/23 Unknown History mcg/actuation nasal spray,suspension Physical Exam 2 Vital Signs: Vital Signs: Last Vital Signs Temp 97.4 F 08/25/23 15:05 Pulse 67 08/25/23 15:09 Resp 16 08/25/23 15:09 BP 165/78 H 08/25/23 15:05 Pulse Ox 94 08/25/23 15:05 O2 Del Method Room Air 08/25/23 15:05 BMI result Body Mass Index 24.0 Const: General: no acute distress and alert Nutritional Appearance: not obese Orientation/consciousness: Other orientation findings ( oriented) HEENT: Head: Yes atraumatic Eyes: General: appearance normal, both eyes and all related structures S clerae: sclerae normal EOM: EOMs intact bilaterally Neck: Neck: Yes supple Lymphatic: no lymphadenopathy noted Resp: Effort & Inspection: normal respiratory effort and no use of accessory muscles Auscultation: clear to auscultation bilaterally Cardio: Rate: regular rate Rhythm: regular rhythm Heart sounds: no gallops, no murmurs and no rubs Skin: General skin exam: other ( warm) Extrem: General: No clubbing, No cyanosis and No edema Results Laboratory Findings 08/25/23 05:26 08/25/23 05:26 Abnormal lab findings: Abnormal Labs 08/24/23 08/24/23 08/24/23 12:27 14:24 23:02 WBC 11.2 H RBC Hgb Hct Plt Count MPV 8.5 L Immature Gran % (Auto) 1.0 H Abs Immat Gran (auto) 0.11 H Sodium 128 L Chloride 94 L Carbon Dioxide 20 L BUN Lactic Acid 2.1 H* Calcium U Marijuana (THC) Screen POSITIVE H 08/25/23 05:26 WBC RBC 4.02 L Hgb 11.0 L Hct 33.2 L Plt Count 157 L MPV 8.9 L Immature Gran % (Auto) 1.1 H Abs Immat Gran (auto) 0.08 H Sodium 124 L Chloride Carbon Dioxide 18 L BUN 6 L Lactic Acid Calcium 7.7 L D U Marijuana (THC) Screen Microbiology: Microbiology 08/24/23 14:24 Blood - Venous Blood Culture - Preliminary No growth after 24 hours. 08/24/23 14:24 Blood - Venous Blood Culture - Preliminary No growth after 24 hours. 08/25/23 13:06 Sputum - Expectorated Gram Stain - Final Assessment and Plan (1) Abnormal CT scan, chest: Status: Acute (2) COPD (chronic obstructive pulmonary disease): Qualifiers: COPD type: emphysema Emphysema type: unspecified Qualified Code(s): J 43.9 - Emphysema, unspecified Status: Acute Plan Impression: 63-year-old lady with underlying mild COPD admitted with hyponatremia who had an abnormal CT chest. Comparison to lung screening study 2 months prior changes appear to be too rapid to have a definite malignant etiology, though not excluded. Recommendations: Discontinue aspirin for 5 days, if still in-house, will proceed with bronchoscopic evaluation, otherwise will schedule on outpatient basis. Agree with empiric broad-spectrum antibiotics. Procedures Date of Service Date of Service: 08/25/23
[2023-08-25] MEDS: Mirtazapine 30 MG TABLET PO (20:12)
[2023-08-25] MEDS: hydrOXYzine HCL 50 MG TABLET PO (20:12)
[2023-08-25] MEDS: Atorvastatin Calcium 20 MG TABLET PO (20:12)
[2023-08-25] MEDS: Acetaminophen 325 MG TABLET 650 MG PO (21:05)
[2023-08-25] MEDS: ondansetron HCL 4 MG/2 ML VIAL IVPUSH (21:05)
[2023-08-26] MEDS: Piperacillin Sodium/Tazobactam 4.5 GM in 0.9 % Sodium Chloride 100 ML IV ×4 (02:14→20:12)
[2023-08-26] MEDS: vancomycin HCL 750 MG in 0.9 % Sodium Chloride 250 ML 265 MG IV (02:50)
[2023-08-26 03:02] VITALS: BP 128/81; PULSE 59; RESP 18; TEMP 36.7; O2SAT 95
[2023-08-26] MEDS: Omeprazole 20 MG CAPSULE.DR PO (05:23)
[2023-08-26 07:02] LABS: Hematocrit 36.7 % (37.0-47.0); Hemoglobin 12.6 g/dl (12.0-16.0); Mean Corpuscular HGB Conc 34.3 g/dl (31.0-35.0); Mean Corpuscular Hemoglobin 27.8 pg (27.0-33.0); Mean Corpuscular Volume 80.8 fL (80.0-98.0); Mean Platelet Volume 9.1 fL (9.4-12.3); Platelet Count 179 X10*3/uL (160-400); Red Blood Count 4.54 X10*6/uL (4.20-5.50); Red Cell Distribution Width 13.8 % (11.0-16.0); White Blood Count 8.9 X10*3/uL (4.8-10.8)
[2023-08-26 07:29] VITALS: BP 156/86; PULSE 58; RESP 18; TEMP 36.6; O2SAT 98
[2023-08-26 07:34] LABS: Anion Gap 16 (12-20); Blood Urea Nitrogen 7 mg/dL (9-16); Calcium 8.5 mg/dL (8.4-10.2); Carbon Dioxide 21 mmol/L (22-29); Chloride 83 mmol/L (96-108); Creatinine Clr Calc Pharmacy 73.6; Estimated Glomerular Filt Rate > 60; Glucose Fasting 66 mg/dL (60-99); Sodium 116 mmol/L (135-145)
--- NOTE | 2023-08-26 08:11 | PC.RT ---
pt. currently refusing nebulizer treatments. When asked about her breathing, patient states it's fine . Patient states she will have RN call RT if patient wants a treatment. RN aware.
[2023-08-26] MEDS: 0.9 % Sodium Chloride Flush 3 ML SYRINGE IVFLUSH ×2 (08:24→16:01)
[2023-08-26] MEDS: ondansetron HCL 4 MG/2 ML VIAL IVPUSH (08:24)
[2023-08-26] MEDS: LORazepam 1 MG TABLET PO (09:06)
[2023-08-26] MEDS: Metoclopramide HCl 5 MG TABLET PO ×3 (09:06→17:44)
[2023-08-26] MEDS: Nicotine 14 MG PATCH.TD24 TRANSDERMA (09:13)
[2023-08-26] MEDS: Heparin Sodium,Porcine 5,000 UNIT/ML VIAL 5000 UNIT SUBCUT ×2 (09:14→19:17)
--- NOTE | 2023-08-26 10:15 | P.PNIM_ITS ---
Subjective Subjective Date of Service: 08/26/23 Interval History: n/v/d Physical Exam 2 Vital Signs: Vital Signs: Last Vital Signs Temp 97.8 F 08/26/23 07:29 Pulse 58 08/26/23 07:29 Resp 18 08/26/23 07:29 BP 156/86 H 08/26/23 07:29 Pulse Ox 98 08/26/23 07:29 O2 Del Method Room Air 08/26/23 07:29 BMI result Body Mass Index 24.0 ill appearing, nauseous, anxious Objective Data Active Medications Acetaminophen (Acetaminophen 325 Mg Tablet) 650 mg PO Q6H PRN PRN Reason: Pain, Mild (Pain Scale 1-3) Last Admin: 08/25/23 21:05 Dose: 650 mg Documented By: GEM Albuterol/Ipratropium (Albuterol/Iprat 2.5/0.5mg 3 Ml Ampul.Neb) 3 ml INHALE RQ4H WHILE AWAKE [facility] Last Admin: 08/26/23 08:39 Dose: Not Given Documented By: LUCIUS Non-Admin Reason: See Note Aspirin (Aspirin Enteric Coated 81 Mg Tablet.) 81 mg PO DAILY [facility] Last Admin: 08/25/23 09:03 Dose: 81 mg Documented By: VIJAYA Atorvastatin Calcium (Atorvastatin Calcium 20 Mg Tablet) 20 mg PO BEDTIME [facility] Last Admin: 08/25/23 20:12 Dose: 20 mg Documented By: GEM Cyclobenzaprine HCl (Cyclobenzaprine Hcl 5 Mg Tablet) 5 mg PO TID PRN PRN Reason: muscle spasm Escitalopram Oxalate (Escitalopram Oxalate 20 Mg Tablet) 20 mg PO DAILY [facility] Last Admin: 08/25/23 09:03 Dose: 20 mg Documented By: VIJAYA Fluticasone Propionate (Fluticasone Propionate Nasal 16 Gm [place]) 1 spray NOSTRIL-B DAILY [facility] Last Admin: 08/25/23 10:44 Dose: 1 spray Documented By: VIJAYA Guaifenesin/Dextromethorphan (Guaifenesin Dm 200/20/10 Ml 10 Ml Syrup) 10 ml PO TID PRN PRN Reason: cough Last Admin: 08/25/23 09:03 Dose: 10 ml Documented By: VIJAYA Heparin Sodium (Porcine) (Heparin Sodium,Porcine 5,000 Unit/Ml Vial) 5,000 unit SUBCUT Q12H [facility] Last Admin: 08/26/23 09:14 Dose: 5,000 unit Documented By: ARIEL Hydroxyzine HCl (Hydroxyzine Hcl 50 Mg Tablet) 50 mg PO BEDTIME [facility] Last Admin: 08/25/23 20:12 Dose: 50 mg Documented By: GEM Piperacillin Sod/Tazobactam (Sod 4.5 gm/ Sodium Chloride) 100 mls @ 200 mls/hr IV Q6H [facility] Last Admin: 08/26/23 09:06 Dose: 200 mls/hr Documented By: ARIEL Vancomycin HCl 750 mg/ Sodium (Chloride) 265 mls @ 265 mls/hr IV Q12H [facility] Last Infusion: 08/26/23 03:55 Dose: Infused Documented By: GEM Lorazepam (Lorazepam 1 Mg Tablet) 1 mg PO BID PRN PRN Reason: anxiety Last Admin: 08/26/23 09:06 Dose: 1 mg Documented By: ARIEL Losartan Potassium (Losartan Potassium 25 Mg Tablet) 25 mg PO DAILY@09 [facility]; Protocol Last Admin: 08/25/23 09:03 Dose: 25 mg Documented By: VIJAYA Magnesium Hydroxide (Milk Of Magnesia 30 Ml Oral.Susp) 30 ml PO DAILY PRN PRN Reason: Constipation Metoclopramide HCl (Metoclopramide Hcl 5 Mg Tablet) 5 mg PO TIDAC [facility] Last Admin: 08/26/23 09:06 Dose: 5 mg Documented By: ARIEL Metoprolol Succinate (Metoprolol Succinate Er 50 Mg Tab.Er.24h) 50 mg PO DAILY [facility]; Protocol Last Admin: 08/25/23 09:03 Dose: 50 mg Documented By: VIJAYA Mirtazapine (Mirtazapine 30 Mg Tablet) 30 mg PO BEDTIME [facility] Last Admin: 08/25/23 20:12 Dose: 30 mg Documented By: GEM Nicotine (Nicotine 14 Mg Patch.Td24) 14 mg TRANSDERMA DAILY [facility] Last Admin: 08/26/23 09:13 Dose: 14 mg Documented By: ARIEL Non-Formulary Medication (Alosetron) 1 mg PO DAILY@0900 [facility] Omeprazole (Omeprazole 20 Mg Capsule.Dr) 20 mg PO DAILY@06 [facility] Last Admin: 08/26/23 05:23 Dose: 20 mg Documented By: GEM Ondansetron HCl (Ondansetron Hcl 4 Mg/2 Ml Vial) 4 mg IVPUSH Q8H PRN PRN Reason: Nausea and Vomiting Last Admin: 08/26/23 08:24 Dose: 4 mg Documented By: ARIEL Oxycodone HCl (Oxycodone Hcl Immed Release 5 Mg Tablet) 5 mg PO BID PRN PRN Reason: Pain, Moderate(Pain Scale 4-6) Pharmacy Consult (Consult Rx Vancomycin Dosing) 1 each MISCELLANE DAILY PRN PRN Reason: Consult order Sodium Chloride (0.9 % Sodium Chloride Flush 3 Ml Syringe) 3 ml IVFLUSH QSHIFT [facility] Last Admin: 08/26/23 08:24 Dose: 3 ml Documented By: ARIEL Sodium Chloride (Sodium Chloride Tab 1 Gm Tablet) 2 gm PO TID [facility] Sucralfate (Sucralfate 1 Gm Tablet) 4 gm PO DAILY@1200 [facility] Last Admin: 08/25/23 12:10 Dose: 4 gm Documented By: VIJAYA Tiotropium [place] (Tiotropium [place] 2.5 Mcg 1 Puff/2.5 Mcg Mist.Inhal) 2 puff INHALE RDAILY [facility] Last Admin: 08/26/23 08:40 Dose: Not Given Documented By: LUCIUS Non-Admin Reason: See Note Tolterodine Tartrate (Tolterodine Tartrate La 4 Mg Cap.Er.24h) 4 mg PO DAILY@0900 [facility] Last Admin: 08/25/23 09:02 Dose: 4 mg Documented By: VIJAYA Urea (Urea 15 Gm Powder) 30 gm PO BID [facility] Stop: 08/27/23 23:59 Last Admin: 08/25/23 20:12 Dose: 30 gm Documented By: GEM Vitamin D (Cholecalciferol (Vitamin D3) 25 Mcg Tablet) 50 mcg PO DAILY@0900 [facility] Last Admin: 08/25/23 09:03 Dose: 50 mcg Documented By: VIJAYA Labs 08/26/23 05:28 08/26/23 05:28 Labs: Laboratory Results - last 24 hr 08/25/23 08/26/23 07:14 05:28 MCV 80.8 MCH 27.8 MCHC 34.3 RDW 13.8 Plt Count 179 MPV 9.1 L Absolute Nucleated RBC 0.000 Nucleated RBC % (auto) 0.0 Anion Gap 16 Estim Creat Clear Calc 73.6 Estimated GFR > 60 Fasting Glucose 66 Calcium 8.5 D Stl C. cayetanensis PCR Not Detected Stool Rotavirus A PCR Not Detected Stl Adenov F 40/41 PCR Not Detected Stool Astrovirus (PCR) Not Detected Stool Campylobacter PCR Not Detected Stool Cryptosporidium PCR Not Detected Stl Sh Tox Pr E STEC PCR Not Detected Stool E coli O157 PCR Not applicable Stl Enterotoxigenic E PCR Not Detected Stool EPEC (PCR) Not Detected Stool EAEC (PCR) Not Detected Stl E. histolytica PCR Not Detected Stool Giardia Lamblia PCR Not Detected Stl P. shigelloides PCR Not Detected Stool Salmonella PCR Not Detected Stool Sapovirus (PCR) Not Detected Stl Shigella/EIEC PCR Not Detected St Y.enterocolitica PCR Not Detected Stool Vibrio (PCR) Not Detected Stl Vibrio cholerae PCR Not Detected Stl Norovirus GI/GII PCR Not Detected Microbiology Microbiology Results: Microbiology 08/25/23 13:06 Gram Stain - Final Sputum - Expectorated Sputum Culture - Preliminary Culture in progress. 08/24/23 14:24 Blood Culture - Preliminary Blood - Venous No growth after 24 hours. 08/24/23 14:24 Blood Culture - Preliminary Blood - Venous No growth after 24 hours. Assessment and Plan (1) Acute hyponatremia: Status: Acute Plan 62F pmh COPD, hcv, HTN, HLD, anemia, GERD, IBS, gastroparesis, anxiety, depression presented with cough, sob, found to have postobstructive pneumonia Postobstructive pneumonia due to right hilar mass/opacity Continue empiric IV vancomycin Zosyn, follow-up cultures Pulmonary for bronchoscopy possibly 08/31/23, holding asa Follow-up cultures, PCRs Acute hyponatremia Likely SIADH worsening not tolerating urea d/w nephro, monitor bmp closely, added sodium tablets, continue fluid restriction COPD Continue bronchodilators Hypertension Losartan, metoprolol DVT prophylaxis-heparin subQ Full code reason for continued hospitalization: Severe hyponatremia Quality Stroke Does the patient have a stroke diagnosis?: No VTE Prior VTE?: No VTE Risk Level:: Medical - moderate - high VTE Device Contraindication: Treatment Not Indicated VTE Drug Contraindication: N/A - Med Ordered
[2023-08-26] MEDS: Fluticasone Propionate Nasal 16 GM SPRAY 1 SPRAY NOSTRIL-B (10:29)
[2023-08-26] MEDS: Tiotropium Bromide 2.5 mcg 1 PUFF/2.5 MCG MIST.INHAL 2 PUFF INHALE (10:29)
[2023-08-26] MEDS: Metoprolol Succinate ER 50 MG TAB.ER.24H PO (10:31)
[2023-08-26] MEDS: Cholecalciferol (Vitamin D3) 25 MCG TABLET 50 MCG PO (10:31)
[2023-08-26] MEDS: Losartan Potassium 25 MG TABLET PO (10:33)
[2023-08-26] MEDS: Escitalopram Oxalate 20 MG TABLET PO (10:33)
[2023-08-26] MEDS: Tolterodine Tartrate LA 4 MG CAP.ER.24H PO (10:34)
[2023-08-26] MEDS: diazePAM 10 MG/2 ML CARTRIDGE 5 MG IVPUSH (10:35)
[2023-08-26 10:42] LABS: Anion Gap 19 (12-20); Blood Urea Nitrogen 7 mg/dL (9-16); Calcium 9.1 mg/dL (8.4-10.2); Carbon Dioxide 18 mmol/L (22-29); Chloride 83 mmol/L (96-108); Creatinine Clr Calc Pharmacy 78.8; Estimated Glomerular Filt Rate > 60; Glucose Random 80 mg/dL (60-115); Potassium 4.2 mmol/L (3.3-5.1); Sodium 116 mmol/L (135-145)
[2023-08-26] MEDS: Sodium Chloride Tab 1 GM TABLET 2 GM PO ×3 (11:35→20:10)
[2023-08-26 13:48] LABS: Vancomycin Random 7.4 mcg/mL (15-20)
[2023-08-26 13:56] LABS: Anion Gap 15 (12-20); Blood Urea Nitrogen 8 mg/dL (9-16); Calcium 8.9 mg/dL (8.4-10.2); Carbon Dioxide 21 mmol/L (22-29); Chloride 85 mmol/L (96-108); Creatinine Clr Calc Pharmacy 74.9; Estimated Glomerular Filt Rate > 60; Glucose Random 139 mg/dL (60-115); Potassium 4.4 mmol/L (3.3-5.1); Sodium 117 mmol/L (135-145)
--- NOTE | 2023-08-26 13:58 | HE.PHANOTE ---
Re: Vanco Renal function improving. Trough returned at 7.4, subtherapeaitic. Dose frequency increase, now is 750mg q8h, with predicted AUC 453, and predicted trough 12.9. Next trough is 08/26 at 1300.
[2023-08-26 14:58] VITALS: BP 127/89; PULSE 77; RESP 18; TEMP 36.1; O2SAT 95
--- NOTE | 2023-08-26 15:25 | P.PNNP_ITS ---
Subjective Subjective Date of Service: 08/26/23 Interval history: Seen this AM. Events noted; All recent data reviewed. Has been having nausea vomiting and diarrhea. Serum sodium worse. No mental status changes. Discussed with hospitalist Physical Exam 2 Vital Signs: Vital Signs: Last Vital Signs Temp 97.0 F 08/26/23 14:58 Pulse 77 08/26/23 14:58 Resp 18 08/26/23 14:58 BP 127/89 08/26/23 14:58 Pulse Ox 95 08/26/23 14:58 O2 Del Method Room Air 08/26/23 14:58 BMI result Body Mass Index 24.0 Const: General: alert Orientation/consciousness: patient oriented x3 Eyes: EOM: EOMs intact bilaterally Resp: Auscultation: diminished lung sounds Cardio: Rate: regular rate GI: Palpation (GI): Soft to palpation Neuro: General: patient oriented x3 and moves all extremities Extrem: General: No edema Objective Data Labs 08/26/23 05:28 08/26/23 13:29 Labs: Laboratory Results - last 24 hr 08/26/23 08/26/23 08/26/23 05:28 09:58 13:29 WBC 8.9 RBC 4.54 Hgb 12.6 Hct 36.7 L MCV 80.8 MCH 27.8 MCHC 34.3 RDW 13.8 Plt Count 179 MPV 9.1 L Absolute Nucleated RBC 0.000 Nucleated RBC % (auto) 0.0 Sodium 116 L* 116 L* 117 L* Potassium 4.0 4.2 4.4 Chloride 83 L 83 L 85 L Carbon Dioxide 21 L 18 L 21 L Anion Gap 16 19 15 BUN 7 L 7 L 8 L Creatinine 0.61 0.57 0.60 Estim Creat Clear Calc 73.6 78.8 74.9 Estimated GFR > 60 > 60 > 60 Random Glucose 80 139 H Fasting Glucose 66 Calcium 8.5 D 9.1 D 8.9 Random Vancomycin 7.4 L Microbiology Microbiology Results: Microbiology 08/25/23 13:06 Sputum - Expectorated Gram Stain - Final 08/25/23 13:06 Sputum - Expectorated Sputum Culture - Preliminary Culture in progress. 08/24/23 14:24 Blood - Venous Blood Culture - Preliminary No growth after 24 hours. 08/24/23 14:24 Blood - Venous Blood Culture - Preliminary No growth after 24 hours. Procedures Date of Service Date of Service: 08/26/23 Assessment & Plan Assessment and plan (1) Acute hyponatremia: Status: Acute Plan Hyponatremia due to excess ADH Mentation at baseline. Euvolemic Not tolerating oral urea No indication for hypertonic saline Started oral sodium chloride tablets 2 g 3 times a day Needs to closely monitor serum sodium to avoid rapid correction Should maintain fluid restriction for now Continue rest of her current management Shall closely follow-up with the medical team Progress Note: Quality Stroke Does the patient have a stroke diagnosis?: No
--- NOTE | 2023-08-26 15:39 | MHC.CM.PN ---
PER ROUNDS DC PLAN REMAINS HOME no servies
[2023-08-26 18:42] VITALS: BP 148/78; PULSE 72; RESP 18; TEMP 36.1; O2SAT 98
[2023-08-26] MEDS: Albuterol/Iprat 2.5/0.5MG 3 ML AMPUL.NEB INHALE (19:11)
[2023-08-26 19:13] VITALS: PULSE 72; RESP 18; O2SAT 94
[2023-08-26 19:55] LABS: Anion Gap 17 (12-20); Blood Urea Nitrogen 9 mg/dL (9-16); Calcium 8.5 mg/dL (8.4-10.2); Carbon Dioxide 14 mmol/L (22-29); Chloride 91 mmol/L (96-108); Creatinine Clr Calc Pharmacy 59.1; Estimated Glomerular Filt Rate > 60; Glucose Random 86 mg/dL (60-115); Potassium 4.7 mmol/L (3.3-5.1); Sodium 117 mmol/L (135-145)
[2023-08-26] MEDS: Mirtazapine 30 MG TABLET PO (20:10)
[2023-08-26] MEDS: hydrOXYzine HCL 50 MG TABLET PO (20:10)
[2023-08-26] MEDS: Atorvastatin Calcium 20 MG TABLET PO (20:10)
[2023-08-27] VITALS (9 sets, daily range): BP systolic 116–156; BP diastolic 69–91; PULSE 63–78; RESP 16–18; TEMP 36–36.3; O2SAT 92–99
[2023-08-27] MEDS: 0.9 % Sodium Chloride Flush 3 ML SYRINGE IVFLUSH ×4 (00:30→20:50)
[2023-08-27] MEDS: Piperacillin Sodium/Tazobactam 4.5 GM in 0.9 % Sodium Chloride 100 ML IV ×4 (02:49→20:40)
[2023-08-27] MEDS: Omeprazole 20 MG CAPSULE.DR PO (05:57)
[2023-08-27 07:23] LABS: Anion Gap 14 (12-20); Blood Urea Nitrogen 10 mg/dL (9-16); Calcium 8.3 mg/dL (8.4-10.2); Carbon Dioxide 21 mmol/L (22-29); Chloride 91 mmol/L (96-108); Creatinine Clr Calc Pharmacy 70.2; Estimated Glomerular Filt Rate > 60; Glucose Fasting 89 mg/dL (60-99); Potassium 3.9 mmol/L (3.3-5.1); Sodium 122 mmol/L (135-145)
[2023-08-27] MEDS: Heparin Sodium,Porcine 5,000 UNIT/ML VIAL 5000 UNIT SUBCUT ×2 (07:36→20:40)
[2023-08-27] MEDS: Metoclopramide HCl 5 MG TABLET PO ×3 (07:36→15:50)
[2023-08-27] MEDS: Albuterol/Iprat 2.5/0.5MG 3 ML AMPUL.NEB INHALE ×4 (07:55→19:29)
--- NOTE | 2023-08-27 09:13 | P.PNIM_ITS ---
Subjective Subjective Date of Service: 08/27/23 Interval History: Feeling much better today, no longer nausea vomiting or diarrhea Physical Exam 2 Vital Signs: Vital Signs: Last Vital Signs Temp 97.1 F 08/27/23 08:00 Pulse 63 08/27/23 08:00 Resp 17 08/27/23 08:00 BP 135/73 08/27/23 08:00 Pulse Ox 95 08/27/23 08:00 O2 Del Method Room Air 08/27/23 08:00 BMI result Body Mass Index 24.0 Const: General: alert Orientation/consciousness: patient oriented x3 Eyes: EOM: EOMs intact bilaterally Resp: Auscultation: diminished lung sounds Cardio: Rate: regular rate GI: Palpation (GI): Soft to palpation Neuro: General: patient oriented x3 and moves all extremities Extrem: General: No edema Objective Data Active Medications Acetaminophen (Acetaminophen 325 Mg Tablet) 650 mg PO Q6H PRN PRN Reason: Pain, Mild (Pain Scale 1-3) Last Admin: 08/25/23 21:05 Dose: 650 mg Documented By: GEM Albuterol/Ipratropium (Albuterol/Iprat 2.5/0.5mg 3 Ml Ampul.Neb) 3 ml INHALE RQ4H WHILE AWAKE [facility] Last Admin: 08/27/23 07:55 Dose: 3 ml Documented By: MATT Aspirin (Aspirin Enteric Coated 81 Mg Tablet.Dr) 81 mg PO DAILY [facility] Last Admin: 08/25/23 09:03 Dose: 81 mg Documented By: VIJAYA Atorvastatin Calcium (Atorvastatin Calcium 20 Mg Tablet) 20 mg PO BEDTIME [facility] Last Admin: 08/26/23 20:10 Dose: 20 mg Documented By: ZACHARY Cyclobenzaprine HCl (Cyclobenzaprine Hcl 5 Mg Tablet) 5 mg PO TID PRN PRN Reason: muscle spasm Escitalopram Oxalate (Escitalopram Oxalate 20 Mg Tablet) 20 mg PO DAILY [facility] Last Admin: 08/26/23 10:33 Dose: 20 mg Documented By: ARIEL Fluticasone Propionate (Fluticasone Propionate Nasal 16 Gm [place]) 1 spray NOSTRIL-B DAILY [facility] Last Admin: 08/26/23 10:29 Dose: 1 spray Documented By: ARIEL Guaifenesin/Dextromethorphan (Guaifenesin Dm 200/20/10 Ml 10 Ml Syrup) 10 ml PO TID PRN PRN Reason: cough Last Admin: 08/25/23 09:03 Dose: 10 ml Documented By: VIJAYA Heparin Sodium (Porcine) (Heparin Sodium,Porcine 5,000 Unit/Ml Vial) 5,000 unit SUBCUT Q12H [facility] Last Admin: 08/27/23 07:36 Dose: 5,000 unit Documented By: SARITHA Hydroxyzine HCl (Hydroxyzine Hcl 50 Mg Tablet) 50 mg PO BEDTIME [facility] Last Admin: 08/26/23 20:10 Dose: 50 mg Documented By: ZACHARY Piperacillin Sod/Tazobactam (Sod 4.5 gm/ Sodium Chloride) 100 mls @ 200 mls/hr IV Q6H [facility] Last Infusion: 08/27/23 03:00 Dose: 0 mls/hr Documented By: ZACHARY Lorazepam (Lorazepam 1 Mg Tablet) 1 mg PO BID PRN PRN Reason: anxiety Last Admin: 08/26/23 09:06 Dose: 1 mg Documented By: ARIEL Losartan Potassium (Losartan Potassium 25 Mg Tablet) 25 mg PO DAILY@0900 [facility]; Protocol Last Admin: 08/26/23 10:33 Dose: 25 mg Documented By: ARIEL Magnesium Hydroxide (Milk Of Magnesia 30 Ml Oral.Susp) 30 ml PO DAILY PRN PRN Reason: Constipation Metoclopramide HCl (Metoclopramide Hcl 5 Mg Tablet) 5 mg PO TIDAC [facility] Last Admin: 08/27/23 07:36 Dose: 5 mg Documented By: SARITHA Metoprolol Succinate (Metoprolol Succinate Er 50 Mg Tab.Er.24h) 50 mg PO DAILY [facility]; Protocol Last Admin: 08/26/23 10:31 Dose: 50 mg Documented By: ARIEL Mirtazapine (Mirtazapine 30 Mg Tablet) 30 mg PO BEDTIME [facility] Last Admin: 08/26/23 20:10 Dose: 30 mg Documented By: ZACHARY Nicotine (Nicotine 14 Mg Patch.Td24) 14 mg TRANSDERMA DAILY [facility] Last Admin: 08/26/23 09:13 Dose: 14 mg Documented By: ARIEL Non-Formulary Medication (Alosetron) 1 mg PO DAILY@0900 [facility] Omeprazole (Omeprazole 20 Mg Capsule.Dr) 20 mg PO DAILY@0630 [facility] Last Admin: 08/27/23 05:57 Dose: 20 mg Documented By: ZACHARY Ondansetron HCl (Ondansetron Hcl 4 Mg/2 Ml Vial) 4 mg IVPUSH Q8H PRN PRN Reason: Nausea and Vomiting Last Admin: 08/26/23 08:24 Dose: 4 mg Documented By: ARIEL Oxycodone HCl (Oxycodone Hcl Immed Release 5 Mg Tablet) 5 mg PO BID PRN PRN Reason: Pain, Moderate(Pain Scale 4-6) Sodium Chloride (0.9 % Sodium Chloride Flush 3 Ml Syringe) 3 ml IVFLUSH QSHIFT [facility] Last Admin: 08/27/23 07:39 Dose: 3 ml Documented By: TERENCEKLEYANNI Sodium Chloride (Sodium Chloride Tab 1 Gm Tablet) 2 gm PO TID [facility] Last Admin: 08/26/23 20:10 Dose: 2 gm Documented By: ZACHARY Sucralfate (Sucralfate 1 Gm Tablet) 4 gm PO DAILY@1200 [facility] Last Admin: 08/26/23 13:09 Dose: Not Given Documented By: ARIEL Non-Admin Reason: Patient Refused Tiotropium [place] (Tiotropium [place] 2.5 Mcg 1 Puff/2.5 Mcg Mist.Inhal) 2 puff INHALE RDAILY [facility] Last Admin: 08/26/23 10:29 Dose: 2 puff Documented By: ARIEL Tolterodine Tartrate (Tolterodine Tartrate [place] 4 Mg Cap.Er.24h) 4 mg PO DAILY@0900 [facility] Last Admin: 08/26/23 10:34 Dose: 4 mg Documented By: ARIEL Urea (Urea 15 Gm Powder) 30 gm PO BID [facility] Stop: 08/27/23 23:59 Last Admin: 08/26/23 20:10 Dose: Not Given Documented By: ZACHARY Non-Admin Reason: Patient Refused Vitamin D (Cholecalciferol (Vitamin D3) 25 Mcg Tablet) 50 mcg PO DAILY@0900 [facility] Last Admin: 08/26/23 10:31 Dose: 50 mcg Documented By: ARIEL Labs 08/26/23 05:28 08/27/23 05:40 Labs: Laboratory Results - last 24 hr 08/26/23 08/26/23 08/26/23 09:58 13:29 19:05 Anion Gap 19 15 17 Estim Creat Clear Calc 78.8 74.9 59.1 Estimated GFR > 60 > 60 > 60 Random Glucose 80 139 H 86 Fasting Glucose Calcium 9.1 D 8.9 8.5 Random Vancomycin 7.4 L 08/27/23 05:40 Anion Gap 14 Estim Creat Clear Calc 70.2 Estimated GFR > 60 Random Glucose Fasting Glucose 89 Calcium 8.3 L Random Vancomycin Microbiology Microbiology Results: Microbiology 08/24/23 14:24 Blood Culture - Preliminary Blood - Venous No growth after 48 hours. 08/24/23 14:24 Blood Culture - Preliminary Blood - Venous No growth after 48 hours. 08/25/23 13:06 Gram Stain - Final Sputum - Expectorated Sputum Culture - Preliminary Culture in progress. Assessment and Plan (1) Acute hyponatremia: Status: Acute Plan 62F pmh COPD, hcv, HTN, HLD, anemia, GERD, IBS, gastroparesis, anxiety, depression presented with cough, sob, found to have postobstructive pneumonia Postobstructive pneumonia due to right hilar mass/opacity deescalated to Zosyn alone, cultures and PCR negative Pulmonary for bronchoscopy possibly 08/31/23, holding asa Acute hyponatremia Likely SIADH Improving at appropriate rate not tolerating urea, started on high-dose salt tablets, continue fluid restriction, continue monitoring COPD Continue bronchodilators Hypertension Losartan, metoprolol DVT prophylaxis-heparin subQ Full code reason for continued hospitalization: Severe hyponatremia Quality Stroke Does the patient have a stroke diagnosis?: No VTE Prior VTE?: No VTE Risk Level:: Medical - moderate - high VTE Device Contraindication: Treatment Not Indicated VTE Drug Contraindication: N/A - Med Ordered
[2023-08-27] MEDS: Losartan Potassium 25 MG TABLET PO (09:31)
[2023-08-27] MEDS: Sodium Chloride Tab 1 GM TABLET 2 GM PO ×3 (09:32→20:40)
[2023-08-27] MEDS: Metoprolol Succinate ER 50 MG TAB.ER.24H PO (09:32)
[2023-08-27] MEDS: Cholecalciferol (Vitamin D3) 25 MCG TABLET 50 MCG PO (09:32)
[2023-08-27] MEDS: Tolterodine Tartrate LA 4 MG CAP.ER.24H PO (09:32)
[2023-08-27] MEDS: Escitalopram Oxalate 20 MG TABLET PO (09:33)
[2023-08-27] MEDS: Fluticasone Propionate Nasal 16 GM SPRAY 1 SPRAY NOSTRIL-B (09:34)
[2023-08-27] MEDS: Nicotine 14 MG PATCH.TD24 TRANSDERMA (09:34)
[2023-08-27] MEDS: Sucralfate 1 GM TABLET 4 GM PO (12:05)
--- NOTE | 2023-08-27 16:52 | P.CNPS_ITS ---
History of Present Illness Date of Service: 08/27/23 Chief Complaint: post obstructive pneumonia Reason for Consult: Patient request-severe depression Requesting physician: Yakov Robles Discussed with referring provider: Yes Sources of Information: patient interviewed and chart reviewed HPI Narrative: Patient is a 62 year old female with PMH COPD, hcv, HTN, HLD, anemia, GERD, IBS, gastroparesis, anxiety, depression presented with cough, sob, found to have postobstructive pneumonia. Psychiatry consult for: patient request-severe depression. During assessment, pt presents alert and oriented, calm, cooperative but tearful. Pt stated, I just wanted someone to talk to. I'm by myself. I have no friends. I'm not happy and I don't know why. I'm worried about my procedure on Thursday . Pt reports she has two daughters in the area which she does not have a close relationship with; pt stated, my girls don't get along or speak to each other. My kids haven't visited me. They say I chose to be by myself and I push everyone away but I don't feel like I did . Pt reports hx of substance abuse (ETOH, cocaine, marijuana); stopped in 2018. Pt reports she has not seen an outpatient therapist or psychiatrist since 2014, however she is interested in a referral. She reports her PCP has been prescribing her psychiatric medications; medications reviewed with patient. Pt denies SI/HI/VH/AH. Pt would like [facility] to visit her daily. Pt reports she will let the doctor know if I need to go inpatient . Past Psychiatric History: denies hx of SA/SIB. denies hx of inpatient psychiatric hospitalizations. hx of two detox admissions. hx of outpatient therapist and psychiatrist; stopped in 2014. Medical Evaluation Reviewed: Yes [facility] Medical History (Updated 08/27/23 @ 17:09 by Vivien Escobar NP) Rectal prolapse Bronchitis Nicotine dependence, cigarettes, uncomplicated Nonrheumatic mitral (valve) insufficiency Pulmonary nodule History of hepatitis C Osteopenia (~2011) COPD (chronic obstructive pulmonary disease) IV drug user Endocarditis of mitral valve (~11/2017) Mitral valve prolapse Mitral regurgitation Early satiety Paresthesia of left leg Allergic rhinitis Facet arthritis of lumbar region Cervical spondylosis Vitamin D deficiency Pure hypercholesterolemia Benign essential hypertension Depression GERD (gastroesophageal reflux disease) Anxiety Surgical History History of liver biopsy (~2009) History of partial colectomy (~2014) History of hysteroscopy (~2010) History of colonoscopy (~2017) Family History: unknown Social History: Lives alone at home, single, 2 daughters (26 and 32 y/o), 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 Substance History: hx of ETOH, cocaine and marijuana use. pt reports she quit in 2019. Trauma History: denies Diagnostics Vital Signs (24Hr): Vital Signs - 24 hr 08/26/23 18:42 08/26/23 19:13 08/27/23 03:18 Temperature 97.0 F 97.4 F Pulse Rate 72 72 66 Respiratory Rate 18 18 18 Blood Pressure 148/78 H 156/69 H Pulse Oximetry 98 96 Oxygen Delivery Method Room Air Room Air 08/27/23 07:55 08/27/23 08:00 08/27/23 09:31 Temperature 97.1 F Pulse Rate 73 63 Respiratory Rate 16 17 Blood Pressure 135/73 135/73 Pulse Oximetry 95 Oxygen Delivery Method Room Air 08/27/23 09:32 08/27/23 15:31 08/27/23 16:00 Temperature 97.1 F Pulse Rate 63 70 68 Respiratory Rate 18 18 Blood Pressure 135/73 116/73 Pulse Oximetry 92 Oxygen Delivery Method Room Air BMI result Body Mass Index 24.0 Labs 08/26/23 05:28 08/27/23 05:40 Labs: Laboratory Results - last 48 hr 08/26/23 08/26/23 08/26/23 05:28 09:58 13:29 WBC 8.9 RBC 4.54 Hgb 12.6 Hct 36.7 L MCV 80.8 MCH 27.8 MCHC 34.3 RDW 13.8 Plt Count 179 MPV 9.1 L Absolute Nucleated RBC 0.000 Nucleated RBC % (auto) 0.0 Sodium 116 L* 116 L* 117 L* Potassium 4.0 4.2 4.4 Chloride 83 L 83 L 85 L Carbon Dioxide 21 L 18 L 21 L Anion Gap 16 19 15 BUN 7 L 7 L 8 L Creatinine 0.61 0.57 0.60 Estim Creat Clear Calc 73.6 78.8 74.9 Estimated GFR > 60 > 60 > 60 Random Glucose 80 139 H Fasting Glucose 66 Calcium 8.5 D 9.1 D 8.9 Random Vancomycin 7.4 L 08/26/23 08/27/23 19:05 05:40 WBC RBC Hgb Hct MCV MCH MCHC RDW Plt Count MPV Absolute Nucleated RBC Nucleated RBC % (auto) Sodium 117 L* 122 L Potassium 4.7 3.9 Chloride 91 L 91 L Carbon Dioxide 14 L 21 L Anion Gap 17 14 BUN 9 10 Creatinine 0.76 0.64 Estim Creat Clear Calc 59.1 70.2 Estimated GFR > 60 > 60 Random Glucose 86 Fasting Glucose 89 Calcium 8.5 8.3 L Random Vancomycin Imaging Radiology Impressions: ITS Impressions Chest X-Ray 08/24/23 12:15 IMPRESSION: Extensive opacity in the right suprahilar region and right upper lobe. Interval worsening as compared to previous. This could be related to a mass, upper lobe collapse, consolidation. Recommend further evaluation with CT scan with contrast. Result and recommendations conveyed to YEVGENIY Jacome at 1338 hours on 08/24/[address] 08/24/23 14:29 IMPRESSION: 1. Right arlen-/suprahilar mass with occlusion of the right upper lobe bronchus and complete right upper lobe collapse. There is associated no mediastinal lymphadenopathy. Findings are consistent with carcinoma and bronchoscopy with biopsy is recommended 2. 1 cm left upper lobe pulmonary nodule. This nodule had demonstrated fairly longterm stability since at least 2020. Fleischner guidelines were followed. Head CT 08/24/23 21:38 IMPRESSION: No acute intracranial pathology. No evidence metastatic disease, though sensitivity is limited without intravenous contrast. Mental Status Exam Mental Status Exam Narrative: Pt is alert and oriented; behavior is cooperative, friendly, calm, tearful; dressed in hospital attire; mood is described as worried ; eye contact appropriate; Speech is normal rate, volume and prosody and not pressured; thought process is organized and goal directed; Thought content is on tx; otherwise pertinent to relevant topics and without any delusional content, paranoid ideations or grandiosity; denies SI/HI/VH/AH. Medications Medications Current Medications Acetaminophen (Acetaminophen 325 Mg Tablet) 650 mg PO Q6H PRN PRN Reason: Pain, Mild (Pain Scale 1-3) Last Admin: 08/25/23 21:05 Dose: 650 mg Albuterol/Ipratropium (Albuterol/Iprat 2.5/0.5mg 3 Ml Ampul.Neb) 3 ml INHALE RQ4H WHILE AWAKE [facility] Last Admin: 08/27/23 15:27 Dose: 3 ml Aspirin (Aspirin Enteric Coated 81 Mg Tablet.Dr) 81 mg PO DAILY [facility] Last Admin: 08/25/23 09:03 Dose: 81 mg Atorvastatin Calcium (Atorvastatin Calcium 20 Mg Tablet) 20 mg PO BEDTIME [facility] Last Admin: 08/26/23 20:10 Dose: 20 mg Cyclobenzaprine HCl (Cyclobenzaprine Hcl 5 Mg Tablet) 5 mg PO TID PRN PRN Reason: muscle spasm Escitalopram Oxalate (Escitalopram Oxalate 20 Mg Tablet) 20 mg PO DAILY [facility] Last Admin: 08/27/23 09:33 Dose: 20 mg Fluticasone Propionate (Fluticasone Propionate Nasal 16 Gm [place]) 1 spray NOSTRIL-B DAILY [facility] Last Admin: 08/27/23 09:34 Dose: 1 spray Guaifenesin/Dextromethorphan (Guaifenesin Dm 200/20/10 Ml 10 Ml Syrup) 10 ml PO TID PRN PRN Reason: cough Last Admin: 08/25/23 09:03 Dose: 10 ml Heparin Sodium (Porcine) (Heparin Sodium,Porcine 5,000 Unit/Ml Vial) 5,000 unit SUBCUT Q12H [facility] Last Admin: 08/27/23 07:36 Dose: 5,000 unit Hydroxyzine HCl (Hydroxyzine Hcl 50 Mg Tablet) 50 mg PO BEDTIME [facility] Last Admin: 08/26/23 20:10 Dose: 50 mg Piperacillin Sod/Tazobactam (Sod 4.5 gm/ Sodium Chloride) 100 mls @ 200 mls/hr IV Q6H [facility] Last Infusion: 08/27/23 16:42 Dose: Infused Lorazepam (Lorazepam 1 Mg Tablet) 1 mg PO BID PRN PRN Reason: anxiety Last Admin: 08/26/23 09:06 Dose: 1 mg Losartan Potassium (Losartan Potassium 25 Mg Tablet) 25 mg PO DAILY@0900 [facility]; Protocol Last Admin: 08/27/23 09:31 Dose: 25 mg Magnesium Hydroxide (Milk Of Magnesia 30 Ml Oral.Susp) 30 ml PO DAILY PRN PRN Reason: Constipation Metoclopramide HCl (Metoclopramide Hcl 5 Mg Tablet) 5 mg PO TIDAC [facility] Last Admin: 08/27/23 15:50 Dose: 5 mg Metoprolol Succinate (Metoprolol Succinate Er 50 Mg Tab.Er.24h) 50 mg PO DAILY [facility]; Protocol Last Admin: 08/27/23 09:32 Dose: 50 mg Mirtazapine (Mirtazapine 30 Mg Tablet) 30 mg PO BEDTIME [facility] Last Admin: 08/26/23 20:10 Dose: 30 mg Nicotine (Nicotine 14 Mg Patch.Td24) 14 mg TRANSDERMA DAILY [facility] Last Admin: 08/27/23 09:34 Dose: 14 mg Omeprazole (Omeprazole 20 Mg Capsule.Dr) 20 mg PO DAILY@0630 [facility] Last Admin: 08/27/23 05:57 Dose: 20 mg Ondansetron HCl (Ondansetron Hcl 4 Mg/2 Ml Vial) 4 mg IVPUSH Q8H PRN PRN Reason: Nausea and Vomiting Last Admin: 08/26/23 08:24 Dose: 4 mg Oxycodone HCl (Oxycodone Hcl Immed Release 5 Mg Tablet) 5 mg PO BID PRN PRN Reason: Pain, Moderate(Pain Scale 4-6) Sodium Chloride (0.9 % Sodium Chloride Flush 3 Ml Syringe) 3 ml IVFLUSH QSHIFT [facility] Last Admin: 08/27/23 15:47 Dose: 3 ml Sodium Chloride (Sodium Chloride Tab 1 Gm Tablet) 2 gm PO TID [facility] Last Admin: 08/27/23 15:50 Dose: 2 gm Sucralfate (Sucralfate 1 Gm Tablet) 4 gm PO DAILY@1200 [facility] Last Admin: 08/27/23 12:05 Dose: 4 gm Tiotropium [place] (Tiotropium [place] 2.5 Mcg 1 Puff/2.5 Mcg Mist.Inhal) 2 puff INHALE RDAILY [facility] Last Admin: 08/26/23 10:29 Dose: 2 puff Tolterodine Tartrate (Tolterodine Tartrate [place] 4 Mg Cap.Er.24h) 4 mg PO DAILY@0900 [facility] Last Admin: 08/27/23 09:32 Dose: 4 mg Urea (Urea 15 Gm Powder) 30 gm PO BID [facility] Stop: 08/27/23 23:59 Last Admin: 08/27/23 09:46 Dose: Not Given Vitamin D (Cholecalciferol (Vitamin D3) 25 Mcg Tablet) 50 mcg PO DAILY@0900 [facility] Last Admin: 08/27/23 09:32 Dose: 50 mcg Allergies Allergies Allergy/AdvReac Type Severity Reaction Status Date / Time No Known Allergies Allergy Unknown unknown Verified 08/24/23 11:57 [NO KNOWN ALLERGIES] Assessment & Plan Assessment & Plan (1) MDD (major depressive disorder), recurrent episode, moderate: Status: Acute Code(s): F33.1 - Major depressive disorder, recurrent, moderate Plan Psychiatry consult for: patient request-severe depression. During assessment, pt presents alert and oriented, calm, cooperative but tearful. Pt stated, I just wanted someone to talk to. I'm by myself. I have no friends. I'm not happy and I don't know why. I'm worried about my procedure on Thursday . Pt reports she has two daughters in the area which she does not have a close relationship with; pt stated, my girls don't get along or speak to each other. My kids haven't visited me. They say I chose to be by myself and I push everyone away but I don't feel like I did . Pt reports hx of substance abuse (ETOH, cocaine, marijuana); stopped in 2018. Pt reports she has not seen an outpatient therapist or psychiatrist since 2014, however she is interested in a referral. She reports her PCP has been prescribing her psychiatric medications; medications reviewed with patient. Pt denies SI/HI/VH/AH. Pt would like clergy to visit her daily. Pt reports she will let the doctor know if I need to go inpatient . Recommendations: Consult for Case management referral to outpatient therapist and prescriber Consult for Shereen visits as needed Continue home medications Consult Care team if patient believes she needs inpatient psychiatric admission. Total time managing care of this patient today _30___ minutes. Patient educated on: diagnosis, medication risk/benefits and therapeutic strategies Informed Consent: understands
--- NOTE | 2023-08-27 18:36 | PC.NURSE ---
Pt. crying stated taht she feels very depressed and asked for psych evaluation. Keep saying it's all her fault to be at the hospital and she worries about the upcoming procedure on Thursday. notified, Nursing support provided with TLC.
--- NOTE | 2023-08-27 19:24 | P.PNNP_ITS ---
Subjective Subjective Date of Service: 08/27/23 Interval history: Feeling much better today, no longer nausea vomiting or diarrhea; serum sodium improving appropriately Physical Exam 2 Vital Signs: Vital Signs: Last Vital Signs Temp 96.8 F 08/27/23 19:17 Pulse 78 08/27/23 19:17 Resp 18 08/27/23 19:17 BP 138/91 H 08/27/23 19:17 Pulse Ox 96 08/27/23 19:17 O2 Del Method Room Air 08/27/23 19:17 BMI result Body Mass Index 24.0 Const: General: comfortable Orientation/consciousness: patient oriented x3 Eyes: EOM: EOMs intact bilaterally Neck: Neck: Yes supple Resp: Auscultation: diminished lung sounds Cardio: Rate: regular rate GI: Palpation (GI): Soft to palpation Neuro: General: patient oriented x3 and moves all extremities Extrem: General: Yes no pedal edema Objective Data Labs 08/26/23 05:28 08/27/23 05:40 Labs: Laboratory Results - last 24 hr 08/26/23 08/27/23 19:05 05:40 Sodium 117 L* 122 L Potassium 4.7 3.9 Chloride 91 L 91 L Carbon Dioxide 14 L 21 L Anion Gap 17 14 BUN 9 10 Creatinine 0.76 0.64 Estim Creat Clear Calc 59.1 70.2 Estimated GFR > 60 > 60 Random Glucose 86 Fasting Glucose 89 Calcium 8.5 8.3 L Microbiology Microbiology Results: Microbiology 08/25/23 13:06 Sputum - Expectorated Gram Stain - Final 08/25/23 13:06 Sputum - Expectorated Sputum Culture - Final 08/24/23 14:24 Blood - Venous Blood Culture - Preliminary No growth after 48 hours. 08/24/23 14:24 Blood - Venous Blood Culture - Preliminary No growth after 48 hours. Procedures Date of Service Date of Service: 08/27/23 Assessment & Plan Assessment and plan (1) Acute hyponatremia: Status: Acute Plan Hyponatremia due to excess ADH Mentation at baseline. Euvolemic Did not tolerate oral urea No indication for hypertonic saline On oral sodium chloride tablets 2 g 3 times a day Needs to closely monitor serum sodium to avoid rapid correction Should maintain fluid restriction for now Continue rest of her current management Shall closely follow-up with the medical team Time Spent With Patient Time: . Progress Note: Quality Stroke Does the patient have a stroke diagnosis?: No
[2023-08-27] MEDS: hydrOXYzine HCL 50 MG TABLET PO (20:40)
[2023-08-27] MEDS: Mirtazapine 30 MG TABLET PO (20:40)
[2023-08-27] MEDS: Atorvastatin Calcium 20 MG TABLET PO (20:40)
[2023-08-28] VITALS (10 sets, daily range): BP systolic 132–144; BP diastolic 65–88; PULSE 56–85; RESP 16–20; TEMP 36–36.1; O2SAT 96–98
[2023-08-28] MEDS: LORazepam 1 MG TABLET PO ×2 (02:01→12:50)
[2023-08-28] MEDS: Piperacillin Sodium/Tazobactam 4.5 GM in 0.9 % Sodium Chloride 100 ML IV ×4 (03:14→20:01)
[2023-08-28 03:22] LABS: Legionella Ag Urine Not Detected (Not Detected)
[2023-08-28 04:04] LABS: Strep Pneumo Ag urine Not Detected (Not Detected)
[2023-08-28] MEDS: Omeprazole 20 MG CAPSULE.DR PO (04:52)
[2023-08-28 06:27] LABS: Hematocrit 33.5 % (37.0-47.0); Hemoglobin 11.7 g/dl (12.0-16.0); Mean Corpuscular HGB Conc 34.9 g/dl (31.0-35.0); Mean Corpuscular Hemoglobin 27.7 pg (27.0-33.0); Mean Corpuscular Volume 79.4 fL (80.0-98.0); Mean Platelet Volume 8.9 fL (9.4-12.3); Platelet Count 157 X10*3/uL (160-400); Red Blood Count 4.22 X10*6/uL (4.20-5.50); Red Cell Distribution Width 14.1 % (11.0-16.0); White Blood Count 6.6 X10*3/uL (4.8-10.8)
[2023-08-28 06:47] LABS: Anion Gap 11 (12-20); Blood Urea Nitrogen 6 mg/dL (9-16); Calcium 8.5 mg/dL (8.4-10.2); Carbon Dioxide 23 mmol/L (22-29); Chloride 94 mmol/L (96-108); Creatinine Clr Calc Pharmacy 84.7; Estimated Glomerular Filt Rate > 60; Glucose Fasting 99 mg/dL (60-99); Potassium 3.1 mmol/L (3.3-5.1); Sodium 125 mmol/L (135-145)
[2023-08-28] MEDS: Potassium Chloride ER 20 MEQ TAB.ER.PRT 40 MEQ PO (07:37)
[2023-08-28] MEDS: Metoclopramide HCl 5 MG TABLET PO ×3 (07:38→16:06)
[2023-08-28] MEDS: Heparin Sodium,Porcine 5,000 UNIT/ML VIAL 5000 UNIT SUBCUT ×2 (07:44→20:00)
[2023-08-28] MEDS: 0.9 % Sodium Chloride Flush 3 ML SYRINGE IVFLUSH ×3 (07:46→20:17)
[2023-08-28] MEDS: Albuterol/Iprat 2.5/0.5MG 3 ML AMPUL.NEB INHALE ×4 (07:55→18:44)
--- NOTE | 2023-08-28 08:29 | P.PNNP_ITS ---
Subjective Subjective Date of Service: 08/28/23 Interval history: Events noted. All recent data reviewed Physical Exam 2 Vital Signs: Vital Signs: Last Vital Signs Temp 97 F 08/28/23 07:17 Pulse 56 08/28/23 07:57 Resp 20 08/28/23 07:57 BP 142/78 H 08/28/23 07:17 Pulse Ox 97 08/28/23 07:17 O2 Del Method Room Air 08/28/23 07:17 BMI result Body Mass Index 24.0 Const: General: no acute distress Eyes: EOM: EOMs intact bilaterally Neck: Neck: Yes supple Resp: Auscultation: diminished lung sounds Cardio: Rate: regular rate GI: Palpation (GI): Soft to palpation Neuro: General: moves all extremities Objective Data Labs 08/28/23 05:30 08/28/23 05:30 Labs: Laboratory Results - last 24 hr 08/24/23 08/28/23 23:02 05:30 WBC 6.6 RBC 4.22 Hgb 11.7 L Hct 33.5 L MCV 79.4 L MCH 27.7 MCHC 34.9 RDW 14.1 Plt Count 157 L MPV 8.9 L Absolute Nucleated RBC 0.000 Nucleated RBC % (auto) 0.0 Sodium 125 L Potassium 3.1 L D Chloride 94 L Carbon Dioxide 23 Anion Gap 11 L BUN 6 L Creatinine 0.53 Estim Creat Clear Calc 84.7 Estimated GFR > 60 Fasting Glucose 99 Calcium 8.5 Ur L.pneumophila Ag Not Detected Ur Strep pneumoniae Ag Not Detected Microbiology Microbiology Results: Microbiology 08/25/23 13:06 Sputum - Expectorated Gram Stain - Final 08/25/23 13:06 Sputum - Expectorated Sputum Culture - Final 08/24/23 14:24 Blood - Venous Blood Culture - Preliminary No growth after 48 hours. 08/24/23 14:24 Blood - Venous Blood Culture - Preliminary No growth after 48 hours. Procedures Date of Service Date of Service: 08/28/23 Assessment & Plan Assessment and plan (1) Acute hyponatremia: Status: Acute Plan Hyponatremia due to excess ADH Mentation at baseline. Euvolemic Did not tolerate oral urea No indication for hypertonic saline On oral sodium chloride tablets 2 g 3 times a day Needs to closely monitor serum sodium to avoid rapid correction Should maintain fluid restriction for now Continue rest of her current management Shall closely follow-up with the medical team Progress Note: Quality Stroke Does the patient have a stroke diagnosis?: No
--- NOTE | 2023-08-28 09:13 | P.PNIM_ITS ---
Subjective Subjective Date of Service: 08/28/23 Interval History: diarrhea Physical Exam 2 Vital Signs: Vital Signs: Last Vital Signs Temp 97 F 08/28/23 07:17 Pulse 56 08/28/23 07:57 Resp 20 08/28/23 07:57 BP 142/78 H 08/28/23 07:17 Pulse Ox 97 08/28/23 07:17 O2 Del Method Room Air 08/28/23 07:17 BMI result Body Mass Index 24.0 Const: General: no acute distress Eyes: EOM: EOMs intact bilaterally Neck: Neck: Yes supple Resp: Auscultation: diminished lung sounds Cardio: Rate: regular rate GI: Palpation (GI): Soft to palpation Neuro: General: moves all extremities Objective Data Active Medications Acetaminophen (Acetaminophen 325 Mg Tablet) 650 mg PO Q6H PRN PRN Reason: Pain, Mild (Pain Scale 1-3) Last Admin: 08/25/23 21:05 Dose: 650 mg Documented By: GEM Albuterol/Ipratropium (Albuterol/Iprat 2.5/0.5mg 3 Ml Ampul.Neb) 3 ml INHALE RQ4H WHILE AWAKE [facility] Last Admin: 08/28/23 07:55 Dose: 3 ml Documented By: JEN Aspirin (Aspirin Enteric Coated 81 Mg Tablet.Dr) 81 mg PO DAILY [facility] Last Admin: 08/25/23 09:03 Dose: 81 mg Documented By: VIJAYA Atorvastatin Calcium (Atorvastatin Calcium 20 Mg Tablet) 20 mg PO BEDTIME [facility] Last Admin: 08/27/23 20:40 Dose: 20 mg Documented By: ANKUR Cyclobenzaprine HCl (Cyclobenzaprine Hcl 5 Mg Tablet) 5 mg PO TID PRN PRN Reason: muscle spasm Escitalopram Oxalate (Escitalopram Oxalate 20 Mg Tablet) 20 mg PO DAILY [facility] Last Admin: 08/27/23 09:33 Dose: 20 mg Documented By: JOSE Fluticasone Propionate (Fluticasone Propionate Nasal 16 Gm [place]) 1 spray NOSTRIL-B DAILY [facility] Last Admin: 08/27/23 09:34 Dose: 1 spray Documented By: JOSE Guaifenesin/Dextromethorphan (Guaifenesin Dm 200/20/10 Ml 10 Ml Syrup) 10 ml PO TID PRN PRN Reason: cough Last Admin: 08/25/23 09:03 Dose: 10 ml Documented By: VIJAYA Heparin Sodium (Porcine) (Heparin Sodium,Porcine 5,000 Unit/Ml Vial) 5,000 unit SUBCUT Q12H [facility] Last Admin: 08/28/23 07:44 Dose: 5,000 unit Documented By: SARITHA Hydroxyzine HCl (Hydroxyzine Hcl 50 Mg Tablet) 50 mg PO BEDTIME [facility] Last Admin: 08/27/23 20:40 Dose: 50 mg Documented By: ANKUR Piperacillin Sod/Tazobactam (Sod 4.5 gm/ Sodium Chloride) 100 mls @ 200 mls/hr IV Q6H [facility] Last Infusion: 08/28/23 03:49 Dose: Infused Documented By: ANKUR Lorazepam (Lorazepam 1 Mg Tablet) 1 mg PO BID PRN PRN Reason: anxiety Last Admin: 08/28/23 02:01 Dose: 1 mg Documented By: ANKUR Losartan Potassium (Losartan Potassium 25 Mg Tablet) 25 mg PO DAILY@0900 [facility]; Protocol Last Admin: 08/27/23 09:31 Dose: 25 mg Documented By: JOSE Magnesium Hydroxide (Milk Of Magnesia 30 Ml Oral.Susp) 30 ml PO DAILY PRN PRN Reason: Constipation Metoclopramide HCl (Metoclopramide Hcl 5 Mg Tablet) 5 mg PO TIDAC [facility] Last Admin: 08/28/23 07:38 Dose: 5 mg Documented By: SARITHA Metoprolol Succinate (Metoprolol Succinate Er 50 Mg Tab.Er.24h) 50 mg PO DAILY [facility]; Protocol Last Admin: 08/27/23 09:32 Dose: 50 mg Documented By: JOSE Mirtazapine (Mirtazapine 30 Mg Tablet) 30 mg PO BEDTIME [facility] Last Admin: 08/27/23 20:40 Dose: 30 mg Documented By: ANKUR Nicotine (Nicotine 14 Mg Patch.Td24) 14 mg TRANSDERMA DAILY [facility] Last Admin: 08/27/23 09:34 Dose: 14 mg Documented By: JOSE Omeprazole (Omeprazole 20 Mg Capsule.Dr) 20 mg PO DAILY@0630 [facility] Last Admin: 08/28/23 04:52 Dose: 20 mg Documented By: ANKUR Ondansetron HCl (Ondansetron Hcl 4 Mg/2 Ml Vial) 4 mg IVPUSH Q8H PRN PRN Reason: Nausea and Vomiting Last Admin: 08/26/23 08:24 Dose: 4 mg Documented By: ARIEL Oxycodone HCl (Oxycodone Hcl Immed Release 5 Mg Tablet) 5 mg PO BID PRN PRN Reason: Pain, Moderate(Pain Scale 4-6) Sodium Chloride (0.9 % Sodium Chloride Flush 3 Ml Syringe) 3 ml IVFLUSH QSHIFT [facility] Last Admin: 08/28/23 07:46 Dose: 3 ml Documented By: SARITHA Sodium Chloride (Sodium Chloride Tab 1 Gm Tablet) 2 gm PO TID [facility] Last Admin: 08/27/23 20:40 Dose: 2 gm Documented By: ANKUR Sucralfate (Sucralfate 1 Gm Tablet) 4 gm PO DAILY@1200 [facility] Last Admin: 08/27/23 12:05 Dose: 4 gm Documented By: JOSE Tiotropium [place] (Tiotropium [place] 2.5 Mcg 1 Puff/2.5 Mcg Mist.Inhal) 2 puff INHALE RDAILY [facility] Last Admin: 08/26/23 10:29 Dose: 2 puff Documented By: ARIEL Tolterodine Tartrate (Tolterodine Tartrate [place] 4 Mg Cap.Er.24h) 4 mg PO DAILY@0900 [facility] Last Admin: 08/27/23 09:32 Dose: 4 mg Documented By: JOSE Vitamin D (Cholecalciferol (Vitamin D3) 25 Mcg Tablet) 50 mcg PO DAILY@0900 [facility] Last Admin: 08/27/23 09:32 Dose: 50 mcg Documented By: JOSE Labs 08/28/23 05:30 08/28/23 05:30 Labs: Laboratory Results - last 24 hr 08/24/23 08/28/23 23:02 05:30 MCV 79.4 L MCH 27.7 MCHC 34.9 RDW 14.1 Plt Count 157 L MPV 8.9 L Absolute Nucleated RBC 0.000 Nucleated RBC % (auto) 0.0 Anion Gap 11 L Estim Creat Clear Calc 84.7 Estimated GFR > 60 Fasting Glucose 99 Calcium 8.5 Ur L.pneumophila Ag Not Detected Ur Strep pneumoniae Ag Not Detected Microbiology Microbiology Results: Microbiology 08/25/23 13:06 Gram Stain - Final Sputum - Expectorated Sputum Culture - Final Assessment and Plan (1) Acute hyponatremia: Status: Acute Plan 62F pmh COPD, hcv, HTN, HLD, anemia, GERD, IBS, gastroparesis, anxiety, depression presented with cough, sob, found to have postobstructive pneumonia Postobstructive pneumonia due to right hilar mass/opacity deescalated to Zosyn alone, cultures and PCR negative Pulmonary for bronchoscopy possibly 08/31/23, holding asa Acute hyponatremia Likely SIADH Improving at appropriate rate not tolerating urea, started on high-dose salt tablets, continue fluid restriction, continue monitoring diarrhea check cdif, stool pcr, legionella is negative COPD Continue bronchodilators Hypertension Losartan, metoprolol DVT prophylaxis-heparin subQ Full code reason for continued hospitalization: Severe hyponatremia Quality Stroke Does the patient have a stroke diagnosis?: No VTE Prior VTE?: No VTE Risk Level:: Medical - moderate - high VTE Device Contraindication: Treatment Not Indicated VTE Drug Contraindication: N/A - Med Ordered
[2023-08-28] MEDS: Sodium Chloride Tab 1 GM TABLET 2 GM PO ×3 (09:37→20:00)
[2023-08-28] MEDS: Tolterodine Tartrate LA 4 MG CAP.ER.24H PO (09:37)
[2023-08-28] MEDS: Cholecalciferol (Vitamin D3) 25 MCG TABLET 50 MCG PO (09:38)
[2023-08-28] MEDS: Metoprolol Succinate ER 50 MG TAB.ER.24H PO (09:38)
[2023-08-28] MEDS: Nicotine 14 MG PATCH.TD24 TRANSDERMA (09:39)
[2023-08-28] MEDS: Losartan Potassium 25 MG TABLET PO (09:39)
[2023-08-28] MEDS: Escitalopram Oxalate 20 MG TABLET PO (09:39)
[2023-08-28] MEDS: Fluticasone Propionate Nasal 16 GM SPRAY 1 SPRAY NOSTRIL-B (09:40)
[2023-08-28 10:29] LABS: CDiff Gene PCR NEGATIVE (Negative)
--- NOTE | 2023-08-28 10:35 | MHC.CM.PN ---
EMR REVIEWED AND PER MD ROUNDS, PT IS NOT MEDICALLY CLEARED FOR DC . PT'S SODIUM REMAINS LOW. CM WILL CONTINUE TO FOLLOW FOR ANY CHANGE TO DC PLAN/NEEDS.
[2023-08-28] MEDS: Loperamide HCl 2 MG CAPSULE PO (10:51)
[2023-08-28] MEDS: Tiotropium Bromide 2.5 mcg 1 PUFF/2.5 MCG MIST.INHAL 2 PUFF INHALE (11:27)
[2023-08-28] MEDS: Sucralfate 1 GM TABLET 4 GM PO (11:34)
[2023-08-28 12:23] LABS: Adenovirus F 40/41 Not Detected (Not Detect.); Astrovirus Not Detected (Not Detect.); Campylobacter Not Detected (Not Detect.); Cryptosporidium Not Detected (Not Detect.); Cyclospora cayetanensis Not Detected (Not Detect.); E. coli EAEC Not Detected (Not Detect.); E. coli EPEC Not Detected (Not Detect.); E. coli ETEC Not Detected (Not Detect.); E. coli STEC Not Detected (Not Detect.); Entamoeba histolytica Not Detected (Not Detect.); Giardia lamblia Not Detected (Not Detect.); Norovirus GI/GII Not Detected (Not Detect.); Plesiomonas shigelloides Not Detected (Not Detect.); Rotavirus A Not Detected (Not Detect.); Salmonella Not Detected (Not Detect.); Sapovirus Not Detected (Not Detect.); Shigella sp./EIEC Not Detected (Not Detect.); Vibrio Not Detected (Not Detect.); Vibrio Cholerae Not Detected (Not Detect.); Yersinia enterocolitica Not Detected (Not Detect.)
--- NOTE | 2023-08-28 12:50 | P.CDIM_ITS ---
PROVIDER RESPONSE TEXT: To clarify, the appropriate diagnosis supported by the clinical indicators: Hypokalemia: acute QUERY TEXT: PHYSICIAN'S DOCUMENTATION REQUEST Date of Query: 08/28/2023 11:29 AM EDT Patient Name: Sarah Medina Admit Date: 08/24/2023 Dear Yakov Robles, A review of the medical record indicates additional documentation may be needed. Please review below and update the documentation accordingly. Clinical Indicators: LABS: potassium 3.9 3.1 L Based on the above, is there a diagnosis that correlates with the lab findings: Hypokalemia possible, suspected, probable etc. Labs indicate a diagnosis of (please specify) Other (explain) Clinically unable to determine (explain) Thank you, Alysha Rosario, CCS, CDIS Use of terms such as suspected, likely, concern for, or probable (associated with a specific diagnosi s that is being evaluated, monitored, or treated as if it exists) are acceptable and can be coded in the inpatient se tting, when documented at the time of discharge. Please use your independent medical judgment in providing your response. THIS QUERY IS PART OF THE PERMANENT MEDICAL RECORD
[2023-08-28] MEDS: hydrOXYzine HCL 50 MG TABLET PO (20:00)
[2023-08-28] MEDS: Atorvastatin Calcium 20 MG TABLET PO (20:00)
[2023-08-28] MEDS: Mirtazapine 30 MG TABLET PO (20:00)
[2023-08-29] VITALS (9 sets, daily range): BP systolic 122–168; BP diastolic 76–96; PULSE 72–87; RESP 13–20; TEMP 36–36.6; O2SAT 92–100
[2023-08-29] MEDS: Piperacillin Sodium/Tazobactam 4.5 GM in 0.9 % Sodium Chloride 100 ML IV ×4 (02:47→20:03)
[2023-08-29] MEDS: Omeprazole 20 MG CAPSULE.DR PO (06:00)
[2023-08-29 06:37] LABS: Hematocrit 31.6 % (37.0-47.0); Hemoglobin 10.8 g/dl (12.0-16.0); Mean Corpuscular HGB Conc 34.2 g/dl (31.0-35.0); Mean Corpuscular Hemoglobin 27.9 pg (27.0-33.0); Mean Corpuscular Volume 81.7 fL (80.0-98.0); Platelet Count 153 X10*3/uL (160-400); Red Blood Count 3.87 X10*6/uL (4.20-5.50); Red Cell Distribution Width 14.6 % (11.0-16.0); White Blood Count 6.4 X10*3/uL (4.8-10.8)
[2023-08-29 06:53] LABS: Blood Urea Nitrogen 9 mg/dL (9-16); Calcium 8.8 mg/dL (8.4-10.2); Creatinine Clr Calc Pharmacy 72.4; Estimated Glomerular Filt Rate > 60; Glucose Fasting 84 mg/dL (60-99)
--- NOTE | 2023-08-29 06:55 | PC.NURSE ---
late entry: 08/24/23, tylenol admin 22:03 for pain >3. pt medicated with tylenol per request despite pain >3 on pain scale.
[2023-08-29 07:06] LABS: Anion Gap 12 (12-20); Carbon Dioxide 23 mmol/L (22-29); Chloride 96 mmol/L (96-108); Potassium 4.1 mmol/L (3.3-5.1); Sodium 127 mmol/L (135-145)
[2023-08-29] MEDS: Tiotropium Bromide 2.5 mcg 1 PUFF/2.5 MCG MIST.INHAL 2 PUFF INHALE (08:18)
[2023-08-29] MEDS: Albuterol/Iprat 2.5/0.5MG 3 ML AMPUL.NEB INHALE ×4 (08:18→19:42)
[2023-08-29] MEDS: Sodium Chloride Tab 1 GM TABLET 2 GM PO ×3 (08:55→19:44)
[2023-08-29] MEDS: Cholecalciferol (Vitamin D3) 25 MCG TABLET 50 MCG PO (08:55)
[2023-08-29] MEDS: Loperamide HCl 2 MG CAPSULE PO (08:55)
[2023-08-29] MEDS: Escitalopram Oxalate 20 MG TABLET PO (08:55)
[2023-08-29] MEDS: Tolterodine Tartrate LA 4 MG CAP.ER.24H PO (08:56)
[2023-08-29] MEDS: Metoclopramide HCl 5 MG TABLET PO ×3 (08:56→16:13)
[2023-08-29] MEDS: Heparin Sodium,Porcine 5,000 UNIT/ML VIAL 5000 UNIT SUBCUT ×2 (09:03→19:45)
[2023-08-29] MEDS: 0.9 % Sodium Chloride Flush 3 ML SYRINGE IVFLUSH ×3 (09:04→20:03)
[2023-08-29] MEDS: Losartan Potassium 25 MG TABLET PO (09:09)
[2023-08-29] MEDS: Metoprolol Succinate ER 50 MG TAB.ER.24H PO (09:09)
[2023-08-29] MEDS: Nicotine 14 MG PATCH.TD24 TRANSDERMA (09:12)
[2023-08-29] MEDS: Fluticasone Propionate Nasal 16 GM SPRAY 1 SPRAY NOSTRIL-B (09:14)
--- NOTE | 2023-08-29 09:28 | P.PNIM_ITS ---
Subjective Subjective Date of Service: 08/29/23 Interval History: improved Physical Exam 2 Vital Signs: Vital Signs: Last Vital Signs Temp 97.9 F 08/29/23 06:55 Pulse 76 08/29/23 09:09 Resp 18 08/29/23 08:20 BP 168/96 H 08/29/23 09:09 Pulse Ox 92 08/29/23 06:55 O2 Del Method Room Air 08/29/23 06:55 BMI result Body Mass Index 24.0 Const: General: no acute distress Eyes: EOM: EOMs intact bilaterally Neck: Neck: Yes supple Resp: Auscultation: diminished lung sounds Cardio: Rate: regular rate GI: Palpation (GI): Soft to palpation Neuro: General: moves all extremities Objective Data Active Medications Acetaminophen (Acetaminophen 325 Mg Tablet) 650 mg PO Q6H PRN PRN Reason: Pain, Mild (Pain Scale 1-3) Last Admin: 08/25/23 21:05 Dose: 650 mg Documented By: GEM Albuterol/Ipratropium (Albuterol/Iprat 2.5/0.5mg 3 Ml Ampul.Neb) 3 ml INHALE RQ4H WHILE AWAKE [facility] Last Admin: 08/29/23 08:18 Dose: 3 ml Documented By: LUCIUS Aspirin (Aspirin Enteric Coated 81 Mg Tablet.) 81 mg PO DAILY [facility] Last Admin: 08/25/23 09:03 Dose: 81 mg Documented By: VIJAYA Atorvastatin Calcium (Atorvastatin Calcium 20 Mg Tablet) 20 mg PO BEDTIME [facility] Last Admin: 08/28/23 20:00 Dose: 20 mg Documented By: ZACHARY Cyclobenzaprine HCl (Cyclobenzaprine Hcl 5 Mg Tablet) 5 mg PO TID PRN PRN Reason: muscle spasm Escitalopram Oxalate (Escitalopram Oxalate 20 Mg Tablet) 20 mg PO DAILY [facility] Last Admin: 08/29/23 08:55 Dose: 20 mg Documented By: JAS Fluticasone Propionate (Fluticasone Propionate Nasal 16 Gm [place]) 1 spray NOSTRIL-B DAILY [facility] Last Admin: 08/29/23 09:14 Dose: 1 spray Documented By: JAS Guaifenesin/Dextromethorphan (Guaifenesin Dm 200/20/10 Ml 10 Ml Syrup) 10 ml PO TID PRN PRN Reason: cough Last Admin: 08/25/23 09:03 Dose: 10 ml Documented By: VIJAYA Heparin Sodium (Porcine) (Heparin Sodium,Porcine 5,000 Unit/Ml Vial) 5,000 unit SUBCUT Q12H [facility] Last Admin: 08/29/23 09:03 Dose: 5,000 unit Documented By: JAS Hydroxyzine HCl (Hydroxyzine Hcl 50 Mg Tablet) 50 mg PO BEDTIME [facility] Last Admin: 08/28/23 20:00 Dose: 50 mg Documented By: ZACHARY Piperacillin Sod/Tazobactam (Sod 4.5 gm/ Sodium Chloride) 100 mls @ 200 mls/hr IV Q6H [facility] Last Admin: 08/29/23 09:05 Dose: 200 mls/hr Documented By: JAS Loperamide HCl (Loperamide Hcl 2 Mg Capsule) 2 mg PO Q4H PRN PRN Reason: Diarrhea Last Admin: 08/29/23 08:55 Dose: 2 mg Documented By: JAS Lorazepam (Lorazepam 1 Mg Tablet) 1 mg PO BID PRN PRN Reason: anxiety Last Admin: 08/28/23 12:50 Dose: 1 mg Documented By: SHEA Losartan Potassium (Losartan Potassium 25 Mg Tablet) 25 mg PO DAILY@0900 [facility]; Protocol Last Admin: 08/29/23 09:09 Dose: 25 mg Documented By: JAS Magnesium Hydroxide (Milk Of Magnesia 30 Ml Oral.Susp) 30 ml PO DAILY PRN PRN Reason: Constipation Metoclopramide HCl (Metoclopramide Hcl 5 Mg Tablet) 5 mg PO TIDAC [facility] Last Admin: 08/29/23 08:56 Dose: 5 mg Documented By: JAS Metoprolol Succinate (Metoprolol Succinate Er 50 Mg Tab.Er.24h) 50 mg PO DAILY [facility]; Protocol Last Admin: 08/29/23 09:09 Dose: 50 mg Documented By: JAS Mirtazapine (Mirtazapine 30 Mg Tablet) 30 mg PO BEDTIME [facility] Last Admin: 08/28/23 20:00 Dose: 30 mg Documented By: ZACHARY Nicotine (Nicotine 14 Mg Patch.Td24) 14 mg TRANSDERMA DAILY [facility] Last Admin: 08/29/23 09:12 Dose: 14 mg Documented By: JAS Omeprazole (Omeprazole 20 Mg Capsule.Dr) 20 mg PO DAILY@0630 [facility] Last Admin: 08/29/23 06:00 Dose: 20 mg Documented By: ZACHARY Ondansetron HCl (Ondansetron Hcl 4 Mg/2 Ml Vial) 4 mg IVPUSH Q8H PRN PRN Reason: Nausea and Vomiting Last Admin: 08/26/23 08:24 Dose: 4 mg Documented By: ARIEL Oxycodone HCl (Oxycodone Hcl Immed Release 5 Mg Tablet) 5 mg PO BID PRN PRN Reason: Pain, Moderate(Pain Scale 4-6) Sodium Chloride (0.9 % Sodium Chloride Flush 3 Ml Syringe) 3 ml IVFLUSH QSHIFT [facility] Last Admin: 08/29/23 09:04 Dose: 3 ml Documented By: JAS Sodium Chloride (Sodium Chloride Tab 1 Gm Tablet) 2 gm PO TID [facility] Last Admin: 08/29/23 08:55 Dose: 2 gm Documented By: JAS Sucralfate (Sucralfate 1 Gm Tablet) 4 gm PO DAILY@1200 [facility] Last Admin: 08/28/23 11:34 Dose: 4 gm Documented By: SHEA Tiotropium [place] (Tiotropium [place] 2.5 Mcg 1 Puff/2.5 Mcg Mist.Inhal) 2 puff INHALE RDAILY [facility] Last Admin: 08/29/23 08:18 Dose: 2 puff Documented By: LUCIUS Tolterodine Tartrate (Tolterodine Tartrate [place] 4 Mg Cap.Er.24h) 4 mg PO DAILY@0900 [facility] Last Admin: 08/29/23 08:56 Dose: 4 mg Documented By: JAS Vitamin D (Cholecalciferol (Vitamin D3) 25 Mcg Tablet) 50 mcg PO DAILY@0900 [facility] Last Admin: 08/29/23 08:55 Dose: 50 mcg Documented By: JAS Labs 08/29/23 05:22 08/29/23 05:22 Labs: Laboratory Results - last 24 hr 08/28/23 08/29/23 09:00 05:22 MCV 81.7 MCH 27.9 MCHC 34.2 RDW 14.6 Plt Count 153 L MPV 9.0 L Absolute Nucleated RBC 0.000 Nucleated RBC % (auto) 0.0 Anion Gap 12 Estim Creat Clear Calc 72.4 Estimated GFR > 60 Fasting Glucose 84 Calcium 8.8 Stl C. cayetanensis PCR Not Detected Stool Rotavirus A PCR Not Detected Stl Adenov F 40/41 PCR Not Detected Stool Astrovirus (PCR) Not Detected Stool Campylobacter PCR Not Detected Stool Cryptosporidium PCR Not Detected Stl Sh Tox Pr E STEC PCR Not Detected Stool E coli O157 PCR Not applicable Stl Enterotoxigenic E PCR Not Detected Stool EPEC (PCR) Not Detected Stool EAEC (PCR) Not Detected Stl E. histolytica PCR Not Detected Stool Giardia Lamblia PCR Not Detected Stl P. shigelloides PCR Not Detected Stool Salmonella PCR Not Detected Stool Sapovirus (PCR) Not Detected Stl Shigella/EIEC PCR Not Detected St Y.enterocolitica PCR Not Detected Stool Vibrio (PCR) Not Detected Stl Vibrio cholerae PCR Not Detected Stl Norovirus GI/GII PCR Not Detected C. difficile Tox B Gene NEGATIVE Assessment and Plan (1) Acute hyponatremia: Status: Acute Plan 62F pmh COPD, hcv, HTN, HLD, anemia, GERD, IBS, gastroparesis, anxiety, depression presented with cough, sob, found to have postobstructive pneumonia Postobstructive pneumonia due to right hilar mass/opacity deescalated to Zosyn alone, cultures and PCR negative Pulmonary for bronchoscopy possibly 08/31/23, holding asa Acute hyponatremia Likely SIADH Improving at appropriate rate not tolerating urea, started on high-dose salt tablets, continue fluid restriction, continue monitoring diarrhea cdif, stool pcr, legionella negative imodium COPD Continue bronchodilators Hypertension Losartan, metoprolol DVT prophylaxis-heparin subQ Full code reason for continued hospitalization: Severe hyponatremia Quality Stroke Does the patient have a stroke diagnosis?: No VTE Prior VTE?: No VTE Risk Level:: Medical - moderate - high VTE Device Contraindication: Treatment Not Indicated VTE Drug Contraindication: N/A - Med Ordered
[2023-08-29] MEDS: Sucralfate 1 GM TABLET 4 GM PO (11:38)
[2023-08-29] MEDS: Mirtazapine 30 MG TABLET PO (19:44)
[2023-08-29] MEDS: hydrOXYzine HCL 50 MG TABLET PO (19:44)
[2023-08-29] MEDS: Atorvastatin Calcium 20 MG TABLET PO (19:44)
[2023-08-29] MEDS: LORazepam 1 MG TABLET PO (23:13)
[2023-08-30] VITALS (8 sets, daily range): BP systolic 149–160; BP diastolic 68–75; PULSE 68–77; RESP 13–18; TEMP 36–36.6; O2SAT 93–97
[2023-08-30] MEDS: Piperacillin Sodium/Tazobactam 4.5 GM in 0.9 % Sodium Chloride 100 ML IV ×4 (03:00→20:31)
[2023-08-30] MEDS: Omeprazole 20 MG CAPSULE.DR PO (05:48)
[2023-08-30 06:18] LABS: Anion Gap 14 (12-20); Blood Urea Nitrogen 12 mg/dL (9-16); Calcium 8.7 mg/dL (8.4-10.2); Carbon Dioxide 21 mmol/L (22-29); Chloride 96 mmol/L (96-108); Creatinine Clr Calc Pharmacy 76.2; Estimated Glomerular Filt Rate > 60; Glucose Fasting 103 mg/dL (60-99); Potassium 3.9 mmol/L (3.3-5.1); Sodium 127 mmol/L (135-145)
[2023-08-30] MEDS: Tiotropium Bromide 2.5 mcg 1 PUFF/2.5 MCG MIST.INHAL 2 PUFF INHALE (07:51)
[2023-08-30] MEDS: Albuterol/Iprat 2.5/0.5MG 3 ML AMPUL.NEB INHALE ×3 (07:51→20:14)
--- NOTE | 2023-08-30 08:36 | P.PNIM_ITS ---
Subjective Subjective Date of Service: 08/30/23 Interval History: improved Physical Exam 2 Vital Signs: Vital Signs: Last Vital Signs Temp 98 F 08/30/23 06:58 Pulse 68 08/30/23 07:51 Resp 17 08/30/23 07:51 BP 152/70 H 08/30/23 06:58 Pulse Ox 95 08/30/23 06:58 O2 Del Method Room Air 08/30/23 06:58 BMI result Body Mass Index 24.0 Const: General: no acute distress Eyes: EOM: EOMs intact bilaterally Neck: Neck: Yes supple Resp: Auscultation: diminished lung sounds Cardio: Rate: regular rate GI: Palpation (GI): Soft to palpation Neuro: General: moves all extremities Objective Data Active Medications Acetaminophen (Acetaminophen 325 Mg Tablet) 650 mg PO Q6H PRN PRN Reason: Pain, Mild (Pain Scale 1-3) Last Admin: 08/25/23 21:05 Dose: 650 mg Documented By: GEM Albuterol/Ipratropium (Albuterol/Iprat 2.5/0.5mg 3 Ml Ampul.Neb) 3 ml INHALE RQ4H WHILE AWAKE [facility] Last Admin: 08/30/23 07:51 Dose: 3 ml Documented By: KYLER Aspirin (Aspirin Enteric Coated 81 Mg Tablet.Dr) 81 mg PO DAILY [facility] Last Admin: 08/25/23 09:03 Dose: 81 mg Documented By: VIJAYA Atorvastatin Calcium (Atorvastatin Calcium 20 Mg Tablet) 20 mg PO BEDTIME [facility] Last Admin: 08/29/23 19:44 Dose: 20 mg Documented By: ZACHARY Cyclobenzaprine HCl (Cyclobenzaprine Hcl 5 Mg Tablet) 5 mg PO TID PRN PRN Reason: muscle spasm Escitalopram Oxalate (Escitalopram Oxalate 20 Mg Tablet) 20 mg PO DAILY [facility] Last Admin: 08/29/23 08:55 Dose: 20 mg Documented By: JAS Fluticasone Propionate (Fluticasone Propionate Nasal 16 Gm [place]) 1 spray NOSTRIL-B DAILY [facility] Last Admin: 08/29/23 09:14 Dose: 1 spray Documented By: JAS Guaifenesin/Dextromethorphan (Guaifenesin Dm 200/20/10 Ml 10 Ml Syrup) 10 ml PO TID PRN PRN Reason: cough Last Admin: 08/25/23 09:03 Dose: 10 ml Documented By: VIJAYA Heparin Sodium (Porcine) (Heparin Sodium,Porcine 5,000 Unit/Ml Vial) 5,000 unit SUBCUT Q12H [facility] Last Admin: 08/29/23 19:45 Dose: 5,000 unit Documented By: ZACHARY Hydroxyzine HCl (Hydroxyzine Hcl 50 Mg Tablet) 50 mg PO BEDTIME [facility] Last Admin: 08/29/23 19:44 Dose: 50 mg Documented By: ZACHARY Piperacillin Sod/Tazobactam (Sod 4.5 gm/ Sodium Chloride) 100 mls @ 200 mls/hr IV Q6H [facility] Last Infusion: 08/30/23 04:17 Dose: Infused Documented By: ZACHARY Loperamide HCl (Loperamide Hcl 2 Mg Capsule) 2 mg PO Q4H PRN PRN Reason: Diarrhea Last Admin: 08/29/23 08:55 Dose: 2 mg Documented By: JAS Losartan Potassium (Losartan Potassium 25 Mg Tablet) 25 mg PO DAILY@0900 [facility]; Protocol Last Admin: 08/29/23 09:09 Dose: 25 mg Documented By: JAS Magnesium Hydroxide (Milk Of Magnesia 30 Ml Oral.Susp) 30 ml PO DAILY PRN PRN Reason: Constipation Metoclopramide HCl (Metoclopramide Hcl 5 Mg Tablet) 5 mg PO TIDAC [facility] Last Admin: 08/29/23 16:13 Dose: 5 mg Documented By: CODY Metoprolol Succinate (Metoprolol Succinate Er 50 Mg Tab.Er.24h) 50 mg PO DAILY [facility]; Protocol Last Admin: 08/29/23 09:09 Dose: 50 mg Documented By: JAS Mirtazapine (Mirtazapine 30 Mg Tablet) 30 mg PO BEDTIME [facility] Last Admin: 08/29/23 19:44 Dose: 30 mg Documented By: ZACHARY Nicotine (Nicotine 14 Mg Patch.Td24) 14 mg TRANSDERMA DAILY [facility] Last Admin: 08/29/23 09:12 Dose: 14 mg Documented By: JAS Omeprazole (Omeprazole 20 Mg Capsule.Dr) 20 mg PO DAILY@0630 [facility] Last Admin: 08/30/23 05:48 Dose: 20 mg Documented By: ZACHARY Ondansetron HCl (Ondansetron Hcl 4 Mg/2 Ml Vial) 4 mg IVPUSH Q8H PRN PRN Reason: Nausea and Vomiting Last Admin: 08/26/23 08:24 Dose: 4 mg Documented By: AREIL Sodium Chloride (0.9 % Sodium Chloride Flush 3 Ml Syringe) 3 ml IVFLUSH QSHIFT [facility] Last Admin: 08/29/23 20:03 Dose: 3 ml Documented By: ZACHARY Sodium Chloride (Sodium Chloride Tab 1 Gm Tablet) 2 gm PO TID [facility] Last Admin: 08/29/23 19:44 Dose: 2 gm Documented By: ZACHARY Sucralfate (Sucralfate 1 Gm Tablet) 4 gm PO DAILY@1200 [facility] Last Admin: 08/29/23 11:38 Dose: 4 gm Documented By: JAS Tiotropium [place] (Tiotropium [place] 2.5 Mcg 1 Puff/2.5 Mcg Mist.Inhal) 2 puff INHALE RDAILY [facility] Last Admin: 08/30/23 07:51 Dose: 2 puff Documented By: KYLER Tolterodine Tartrate (Tolterodine Tartrate [place] 4 Mg Cap.Er.24h) 4 mg PO DAILY@0900 [facility] Last Admin: 08/29/23 08:56 Dose: 4 mg Documented By: JAS Vitamin D (Cholecalciferol (Vitamin D3) 25 Mcg Tablet) 50 mcg PO DAILY@0900 [facility] Last Admin: 08/29/23 08:55 Dose: 50 mcg Documented By: JAS Labs 08/29/23 05:22 08/30/23 05:16 Labs: Laboratory Results - last 24 hr 08/30/23 05:16 Anion Gap 14 Estim Creat Clear Calc 76.2 Estimated GFR > 60 Fasting Glucose 103 H Calcium 8.7 Microbiology Microbiology Results: Microbiology 08/24/23 14:24 Blood Culture - Final Blood - Venous No growth after 5 days. 08/24/23 14:24 Blood Culture - Final Blood - Venous No growth after 5 days. Assessment and Plan (1) Acute hyponatremia: Status: Acute Plan 62F pmh COPD, hcv, HTN, HLD, anemia, GERD, IBS, gastroparesis, anxiety, depression presented with cough, sob, found to have postobstructive pneumonia Postobstructive pneumonia due to right hilar mass/opacity deescalated to Zosyn alone, cultures and PCR negative Pulmonary for bronchoscopy possibly 08/31/23, holding asa Acute hyponatremia Likely SIADH Improved at appropriate rate, now 127 not tolerating urea, started on high-dose salt tablets, continue fluid restriction, continue monitoring diarrhea cdif, stool pcr, legionella negative imodium COPD Continue bronchodilators Hypertension Losartan, metoprolol DVT prophylaxis-heparin subQ Full code reason for continued hospitalization: hyponatremia Quality Stroke Does the patient have a stroke diagnosis?: No VTE Prior VTE?: No VTE Risk Level:: Medical - moderate - high VTE Device Contraindication: Treatment Not Indicated VTE Drug Contraindication: N/A - Med Ordered
[2023-08-30] MEDS: Sodium Chloride Tab 1 GM TABLET 2 GM PO ×3 (08:42→20:30)
[2023-08-30] MEDS: Loperamide HCl 2 MG CAPSULE PO ×2 (08:43→16:41)
[2023-08-30] MEDS: Metoprolol Succinate ER 50 MG TAB.ER.24H PO (08:43)
[2023-08-30] MEDS: Tolterodine Tartrate LA 4 MG CAP.ER.24H PO (08:43)
[2023-08-30] MEDS: Losartan Potassium 25 MG TABLET PO (08:43)
[2023-08-30] MEDS: Cholecalciferol (Vitamin D3) 25 MCG TABLET 50 MCG PO (08:44)
[2023-08-30] MEDS: Metoclopramide HCl 5 MG TABLET PO ×3 (08:44→15:34)
[2023-08-30] MEDS: Acetaminophen 325 MG TABLET 650 MG PO (08:44)
[2023-08-30] MEDS: Escitalopram Oxalate 20 MG TABLET PO (08:44)
[2023-08-30] MEDS: Heparin Sodium,Porcine 5,000 UNIT/ML VIAL 5000 UNIT SUBCUT ×2 (08:47→19:21)
[2023-08-30] MEDS: 0.9 % Sodium Chloride Flush 3 ML SYRINGE IVFLUSH ×3 (08:48→20:31)
[2023-08-30] MEDS: Fluticasone Propionate Nasal 16 GM SPRAY 1 SPRAY NOSTRIL-B (08:49)
[2023-08-30] MEDS: Nicotine 14 MG PATCH.TD24 TRANSDERMA (08:50)
[2023-08-30] MEDS: guaiFENesin DM 200/20/10 ML 10 ML SYRUP PO (08:59)
[2023-08-30] MEDS: Sucralfate 1 GM TABLET 4 GM PO (11:53)
[2023-08-30] MEDS: Mirtazapine 30 MG TABLET PO (20:29)
[2023-08-30] MEDS: hydrOXYzine HCL 50 MG TABLET PO (20:29)
[2023-08-30] MEDS: Atorvastatin Calcium 20 MG TABLET PO (20:29)
[2023-08-30] MEDS: LORazepam 1 MG TABLET PO (22:15)
[2023-08-31] VITALS (16 sets, daily range): BP systolic 130–199; BP diastolic 64–103; PULSE 67–88; RESP 14–18; TEMP 36–36.2; O2SAT 92–100
[2023-08-31] MEDS: Piperacillin Sodium/Tazobactam 4.5 GM in 0.9 % Sodium Chloride 100 ML IV ×3 (03:24→20:02)
[2023-08-31] MEDS: Loperamide HCl 2 MG CAPSULE PO ×3 (04:19→20:01)
[2023-08-31] MEDS: Omeprazole 20 MG CAPSULE.DR PO (05:31)
[2023-08-31 05:42] LABS: Hematocrit 29.5 % (37.0-47.0); Hemoglobin 10.3 g/dl (12.0-16.0); Mean Corpuscular HGB Conc 34.9 g/dl (31.0-35.0); Mean Corpuscular Hemoglobin 28.4 pg (27.0-33.0); Mean Corpuscular Volume 81.3 fL (80.0-98.0); Mean Platelet Volume 8.8 fL (9.4-12.3); Platelet Count 141 X10*3/uL (160-400); Red Blood Count 3.63 X10*6/uL (4.20-5.50); Red Cell Distribution Width 15.2 % (11.0-16.0); White Blood Count 5.6 X10*3/uL (4.8-10.8)
[2023-08-31 05:58] LABS: Anion Gap 14 (12-20); Blood Urea Nitrogen 10 mg/dL (9-16); Calcium 8.5 mg/dL (8.4-10.2); Carbon Dioxide 21 mmol/L (22-29); Chloride 96 mmol/L (96-108); Creatinine Clr Calc Pharmacy 70.2; Estimated Glomerular Filt Rate > 60; Glucose Fasting 90 mg/dL (60-99); Potassium 4.1 mmol/L (3.3-5.1); Sodium 127 mmol/L (135-145)
[2023-08-31] MEDS: Albuterol/Iprat 2.5/0.5MG 3 ML AMPUL.NEB INHALE ×4 (07:34→19:43)
[2023-08-31 07:36] LABS: Glucose, Whole Blood 102 mg/dL (60-115)
[2023-08-31] MEDS: Tiotropium Bromide 2.5 mcg 1 PUFF/2.5 MCG MIST.INHAL 2 PUFF INHALE (07:52)
[2023-08-31] MEDS: Nicotine 14 MG PATCH.TD24 TRANSDERMA (08:36)
[2023-08-31] MEDS: Fluticasone Propionate Nasal 16 GM SPRAY 1 SPRAY NOSTRIL-B (08:36)
[2023-08-31] MEDS: 0.9 % Sodium Chloride Flush 3 ML SYRINGE IVFLUSH ×3 (08:37→20:42)
--- NOTE | 2023-08-31 08:53 | MHC.SHP ---
Pre-Procedural Eval Section A - 24 Hr Update-Section A only Date of Service: 08/31/23 The patient is an INPATIENT: Yes Changes since office visit: Yes Patient answered all questions; No Cold of Flu in the past 2 weeks, No New Medical Problems and No Changes in Medication The patient has been examined within 24 hours of the surgical procedure. The History & Physical has been completed within 30 days and I have reviewed it.: Yes Section B - Complete if H&P > 30 days Chief Complaint: post obstructive pneumonia Allergies: Allergies Allergy/AdvReac Type Severity Reaction Status Date / Time No Known Allergies Allergy Unknown unknown Verified 08/24/23 11:57 [NO KNOWN ALLERGIES] Plan I have reviewed the history and physical and performed a pertinent physical examination on my patient. No changes have occurred unless specified. Time Spent With Patient Time: Total time managing care of this patient today ____ minutes.
--- NOTE | 2023-08-31 10:18 | HO.PM.IMPN ---
Subjective Subjective Date of Service: 08/31/23 Interval History: improved Physical Exam Vital Signs: Vital Signs: Last Vital Signs Temp 96.9 F 08/31/23 07:15 Pulse 67 08/31/23 07:36 Resp 18 08/31/23 07:36 BP 160/86 H 08/31/23 08:37 Pulse Ox 95 08/31/23 07:15 O2 Del Method Room Air 08/31/23 07:15 BMI result Body Mass Index 24.0 Const: General: no acute distress Eyes: EOM: EOMs intact bilaterally Neck: Neck: Yes supple Resp: Auscultation: diminished lung sounds Cardio: Rate: regular rate GI: Palpation (GI): Soft to palpation Neuro: General: moves all extremities Objective Data Active Medications Acetaminophen (Acetaminophen 325 Mg Tablet) 650 mg PO Q6H PRN PRN Reason: Pain, Mild (Pain Scale 1-3) Last Admin: 08/30/23 08:44 Dose: 650 mg Documented By: MANJU Albuterol/Ipratropium (Albuterol/Iprat 2.5/0.5mg 3 Ml Ampul.Neb) 3 ml INHALE RQ4H WHILE AWAKE [facility] Last Admin: 08/31/23 07:34 Dose: 3 ml Documented By: YESIKA Aspirin (Aspirin Enteric Coated 81 Mg Tablet.) 81 mg PO DAILY [facility] Last Admin: 08/25/23 09:03 Dose: 81 mg Documented By: VIJAYA Atorvastatin Calcium (Atorvastatin Calcium 20 Mg Tablet) 20 mg PO BEDTIME [facility] Last Admin: 08/30/23 20:29 Dose: 20 mg Documented By: ZACHARY Cyclobenzaprine HCl (Cyclobenzaprine Hcl 5 Mg Tablet) 5 mg PO TID PRN PRN Reason: muscle spasm Escitalopram Oxalate (Escitalopram Oxalate 20 Mg Tablet) 20 mg PO DAILY [facility] Last Admin: 08/30/23 08:44 Dose: 20 mg Documented By: MANJU Fluticasone Propionate (Fluticasone Propionate Nasal 16 Gm [place]) 1 spray NOSTRIL-B DAILY [facility] Last Admin: 08/31/23 08:36 Dose: 1 spray Documented By: MANJU Guaifenesin/Dextromethorphan (Guaifenesin Dm 200/20/10 Ml 10 Ml Syrup) 10 ml PO TID PRN PRN Reason: cough Last Admin: 08/30/23 08:59 Dose: 10 ml Documented By: MANJU Heparin Sodium (Porcine) (Heparin Sodium,Porcine 5,000 Unit/Ml Vial) 5,000 unit SUBCUT Q12H [facility] Last Admin: 08/31/23 10:06 Dose: Not Given Documented By: MANJU Non-Admin Reason: scheduled for procedure Hydroxyzine HCl (Hydroxyzine Hcl 50 Mg Tablet) 50 mg PO BEDTIME [facility] Last Admin: 08/30/23 20:29 Dose: 50 mg Documented By: ZACHARY Piperacillin Sod/Tazobactam (Sod 4.5 gm/ Sodium Chloride) 100 mls @ 200 mls/hr IV Q6H [facility] Last Infusion: 08/31/23 04:44 Dose: Infused Documented By: ZACHARY Loperamide HCl (Loperamide Hcl 2 Mg Capsule) 2 mg PO Q4H PRN PRN Reason: Diarrhea Last Admin: 08/31/23 04:19 Dose: 2 mg Documented By: ZACHARY Lorazepam (Lorazepam 1 Mg Tablet) 1 mg PO BID PRN PRN Reason: anxiety/restlessness Last Admin: 08/30/23 22:15 Dose: 1 mg Documented By: ZACHARY Losartan Potassium (Losartan Potassium 25 Mg Tablet) 25 mg PO DAILY@0900 [facility]; Protocol Last Admin: 08/30/23 08:43 Dose: 25 mg Documented By: MANJU Magnesium Hydroxide (Milk Of Magnesia 30 Ml Oral.Susp) 30 ml PO DAILY PRN PRN Reason: Constipation Metoclopramide HCl (Metoclopramide Hcl 5 Mg Tablet) 5 mg PO TIDAC [facility] Last Admin: 08/31/23 10:06 Dose: Not Given Documented By: MANJU Non-Admin Reason: NPO Metoprolol Succinate (Metoprolol Succinate Er 50 Mg Tab.Er.24h) 50 mg PO DAILY [facility]; Protocol Last Admin: 08/30/23 08:43 Dose: 50 mg Documented By: MANJU Mirtazapine (Mirtazapine 30 Mg Tablet) 30 mg PO BEDTIME [facility] Last Admin: 08/30/23 20:29 Dose: 30 mg Documented By: ZACHARY Nicotine (Nicotine 14 Mg Patch.Td24) 14 mg TRANSDERMA DAILY [facility] Last Admin: 08/31/23 08:36 Dose: 14 mg Documented By: MANJU Omeprazole (Omeprazole 20 Mg Capsule.Dr) 20 mg PO DAILY@0630 [facility] Last Admin: 08/31/23 05:31 Dose: 20 mg Documented By: ZACHARY Ondansetron HCl (Ondansetron Hcl 4 Mg/2 Ml Vial) 4 mg IVPUSH Q8H PRN PRN Reason: Nausea and Vomiting Last Admin: 08/26/23 08:24 Dose: 4 mg Documented By: ARIEL Sodium Chloride (0.9 % Sodium Chloride Flush 3 Ml Syringe) 3 ml IVFLUSH QSHIFT [facility] Last Admin: 08/31/23 08:37 Dose: 3 ml Documented By: MANJU Sodium Chloride (Sodium Chloride Tab 1 Gm Tablet) 2 gm PO TID [facility] Last Admin: 08/30/23 20:30 Dose: 2 gm Documented By: ZACHARY Sucralfate (Sucralfate 1 Gm Tablet) 4 gm PO DAILY@1200 [facility] Last Admin: 08/30/23 11:53 Dose: 2 gm Documented By: MANJU Comments: patient refused Tiotropium [place] (Tiotropium [place] 2.5 Mcg 1 Puff/2.5 Mcg Mist.Inhal) 2 puff INHALE RDAILY [facility] Last Admin: 08/31/23 07:52 Dose: 2 puff Documented By: YESIKA Tolterodine Tartrate (Tolterodine Tartrate [place] 4 Mg Cap.Er.24h) 4 mg PO DAILY@0900 [facility] Last Admin: 08/30/23 08:43 Dose: 4 mg Documented By: MANJU Vitamin D (Cholecalciferol (Vitamin D3) 25 Mcg Tablet) 50 mcg PO DAILY@0900 [facility] Last Admin: 08/31/23 10:07 Dose: Not Given Documented By: MANJU Non-Admin Reason: NPO Labs 08/31/23 05:05 08/31/23 05:05 Labs: Laboratory Results - last 24 hr 08/31/23 08/31/23 05:05 07:21 MCV 81.3 MCH 28.4 MCHC 34.9 RDW 15.2 Plt Count 141 L MPV 8.8 L Absolute Nucleated RBC 0.000 Nucleated RBC % (auto) 0.0 Anion Gap 14 Estim Creat Clear Calc 70.2 Estimated GFR > 60 POC Glucose 102 Fasting Glucose 90 Calcium 8.5 Assessment and Plan (1) Acute hyponatremia: Status: Acute Plan 62F pmh COPD, hcv, HTN, HLD, anemia, GERD, IBS, gastroparesis, anxiety, depression presented with cough, sob, found to have postobstructive pneumonia Postobstructive pneumonia due to right hilar mass/opacity deescalated to Zosyn alone, cultures and PCR negative Pulmonary for bronchoscopy possibly 08/31/23, holding asa Acute hyponatremia Likely SIADH Improved at appropriate rate, now stable at 127 not tolerating urea, started on high-dose salt tablets, continue fluid restriction, continue monitoring diarrhea cdif, stool pcr, legionella negative imodium COPD Continue bronchodilators Hypertension Losartan, metoprolol DVT prophylaxis-heparin subQ Full code reason for continued hospitalization: hyponatremia Quality Stroke Does the patient have a stroke diagnosis?: No VTE Prior VTE?: No VTE Risk Level:: Medical - moderate - high VTE Device Contraindication: Treatment Not Indicated VTE Drug Contraindication: N/A - Med Ordered
--- NOTE | 2023-08-31 10:22 | HO.ANESPROP2 ---
HPI - Anesthesia Eval Consult details Narrative: 63 yo F admitted with post-obstructive pneumonia due to right hilar mass. Hx of mitral valve regurgitation and mitral valve prolapse, COPD, HTN, and hx of IV drug use - quit in 2019. 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 (Acute) Hematuria (Acute) Osteopenia (Acute ~2011) IV drug user (Acute) History of hepatitis C (Acute) Impaired fasting glucose (Acute) Benign essential hypertension (Acute) Pure hypercholesterolemia (Acute) Mitral valve prolapse (Acute) Mitral regurgitation (Acute) COPD (chronic obstructive pulmonary disease) (Acute) Pulmonary nodule (Acute) Nicotine dependence, cigarettes, uncomplicated (Acute) Allergic rhinitis (Acute) Anemia (Acute) Vitamin D deficiency (Acute) GERD (gastroesophageal reflux disease) (Acute) Irritable bowel syndrome with diarrhea (Acute) Gastroparesis (Acute) Overactive bladder (Acute) Rectal bleeding (Acute) Depression (Acute) Anxiety (Acute) Facet arthritis of lumbar region (Acute) Cervical spondylosis (Acute) Pain and swelling of left knee (Acute) Arthritis of carpometacarpal (CMC) joint of left thumb (Acute) Paresthesia of left leg (Acute) Past Medical History Medical History (Updated 08/27/23 @ 17:09 by Vivien Escobar NP) Rectal prolapse Bronchitis Nicotine dependence, cigarettes, uncomplicated Nonrheumatic mitral (valve) insufficiency Pulmonary nodule History of hepatitis C Osteopenia (~2011) COPD (chronic obstructive pulmonary disease) IV drug user Endocarditis of mitral valve (~11/2017) Mitral valve prolapse Mitral regurgitation Early satiety Paresthesia of left leg Allergic rhinitis Facet arthritis of lumbar region Cervical spondylosis Vitamin D deficiency Pure hypercholesterolemia Benign essential hypertension Depression GERD (gastroesophageal reflux disease) Anxiety Family History Family History Father Internal bleeding Mother Medical history unknown Family history of problems with anesthesia: No Surgical History Surgical History History of liver biopsy (~2009) History of partial colectomy (~2014) History of hysteroscopy (~2010) History of colonoscopy (~2017) History of Problems with Anesthesia: No Social History Social History Household Members: None Housing: House Housing Other:: lives alone with her cat Malena Do you presently have visiting nurse or other home services: No Alcohol intake: former Patient Tobacco Use Status: Current everyday Tobacco user Tobacco use type: Cigarette Cigarette Packs Per Day: 0.5 Cigarettes Per Day: 6 Years Smoked: 45 years (onset 15, 1/2-3/4ppd x 45yrs, 28pyh) Smoked in Last 30 Days: Yes e-Cigarette/Vaping Use: Never Used Patient Interested in Nicotine Replacement: Yes Second Hand Smoke Exposure: Yes Use of substances other than those prescribed or required for medical reasons: Yes Substance Use Type: Marijuana Currently Displaying Signs/Symptoms of Drug Intoxication Withdrawal: No Have you been hit, kicked, punched, or otherwise hurt by someone within the past year? If so, by whom?: No Do you feel safe in your current relationship?: No Current Relationship Is there a partner from a previous relationship who is making you feel unsafe now?: No Are you made to feel afraid or neglected: No Advance Directives: Yes Advance Directives on File: Yes Advance Directives Date on File: 12/18/21 Do you have a plan to hurt others: No Plan Recently lost weight without trying: No Nutrition Risks: No Nutritional Risk Patient : No : No Poor oral hygiene: No service: No Current occupational status: unemployed Sexual orientation: Straight/Heterosexual Gender identity: Female Cognitive needs: No Hearing needs: No Vision needs: Yes Meds Allergies Allergy/AdvReac Type Severity Reaction Status Date / Time No Known Allergies Allergy Unknown unknown Verified 08/24/23 11:57 [NO KNOWN ALLERGIES] Active Medications: Current Medications Acetaminophen (Acetaminophen 325 Mg Tablet) 650 mg PO Q6H PRN PRN Reason: Pain, Mild (Pain Scale 1-3) Last Admin: 08/30/23 08:44 Dose: 650 mg Albuterol/Ipratropium (Albuterol/Iprat 2.5/0.5mg 3 Ml Ampul.Neb) 3 ml INHALE RQ4H WHILE AWAKE PENDING SALE TO [facility] Last Admin: 08/31/23 07:34 Dose: 3 ml Aspirin (Aspirin Enteric Coated 81 Mg Tablet.Dr) 81 mg PO DAILY PENDING SALE TO [facility] Last Admin: 08/25/23 09:03 Dose: 81 mg Atorvastatin Calcium (Atorvastatin Calcium 20 Mg Tablet) 20 mg PO BEDTIME PENDING SALE TO [facility] Last Admin: 08/30/23 20:29 Dose: 20 mg Cyclobenzaprine HCl (Cyclobenzaprine Hcl 5 Mg Tablet) 5 mg PO TID PRN PRN Reason: muscle spasm Escitalopram Oxalate (Escitalopram Oxalate 20 Mg Tablet) 20 mg PO DAILY PENDING SALE TO [facility] Last Admin: 08/30/23 08:44 Dose: 20 mg Fluticasone Propionate (Fluticasone Propionate Nasal 16 Gm [place]) 1 spray NOSTRIL-B DAILY PENDING SALE TO [facility] Last Admin: 08/31/23 08:36 Dose: 1 spray Guaifenesin/Dextromethorphan (Guaifenesin Dm 200/20/10 Ml 10 Ml Syrup) 10 ml PO TID PRN PRN Reason: cough Last Admin: 08/30/23 08:59 Dose: 10 ml Heparin Sodium (Porcine) (Heparin Sodium,Porcine 5,000 Unit/Ml Vial) 5,000 unit SUBCUT Q12H PENDING SALE TO [facility] Last Admin: 08/31/23 10:06 Dose: Not Given Hydroxyzine HCl (Hydroxyzine Hcl 50 Mg Tablet) 50 mg PO BEDTIME PENDING SALE TO [facility] Last Admin: 08/30/23 20:29 Dose: 50 mg Piperacillin Sod/Tazobactam (Sod 4.5 gm/ Sodium Chloride) 100 mls @ 200 mls/hr IV Q6H PENDING SALE TO [facility] Last Infusion: 08/31/23 04:44 Dose: Infused Loperamide HCl (Loperamide Hcl 2 Mg Capsule) 2 mg PO Q4H PRN PRN Reason: Diarrhea Last Admin: 08/31/23 04:19 Dose: 2 mg Lorazepam (Lorazepam 1 Mg Tablet) 1 mg PO BID PRN PRN Reason: anxiety/restlessness Last Admin: 08/30/23 22:15 Dose: 1 mg Losartan Potassium (Losartan Potassium 25 Mg Tablet) 25 mg PO DAILY@0900 PENDING SALE TO [facility]; Protocol Last Admin: 08/30/23 08:43 Dose: 25 mg Magnesium Hydroxide (Milk Of Magnesia 30 Ml Oral.Susp) 30 ml PO DAILY PRN PRN Reason: Constipation Metoclopramide HCl (Metoclopramide Hcl 5 Mg Tablet) 5 mg PO TIDAC PENDING SALE TO [facility] Last Admin: 08/31/23 10:06 Dose: Not Given Metoprolol Succinate (Metoprolol Succinate Er 50 Mg Tab.Er.24h) 50 mg PO DAILY PENDING SALE TO [facility]; Protocol Last Admin: 08/30/23 08:43 Dose: 50 mg Mirtazapine (Mirtazapine 30 Mg Tablet) 30 mg PO BEDTIME PENDING SALE TO [facility] Last Admin: 08/30/23 20:29 Dose: 30 mg Nicotine (Nicotine 14 Mg Patch.Td24) 14 mg TRANSDERMA DAILY PENDING SALE TO [facility] Last Admin: 08/31/23 08:36 Dose: 14 mg Omeprazole (Omeprazole 20 Mg Capsule.Dr) 20 mg PO DAILY@0630 PENDING SALE TO [facility] Last Admin: 08/31/23 05:31 Dose: 20 mg Ondansetron HCl (Ondansetron Hcl 4 Mg/2 Ml Vial) 4 mg IVPUSH Q8H PRN PRN Reason: Nausea and Vomiting Last Admin: 08/26/23 08:24 Dose: 4 mg Sodium Chloride (0.9 % Sodium Chloride Flush 3 Ml Syringe) 3 ml IVFLUSH QSHIFT PENDING SALE TO [facility] Last Admin: 08/31/23 08:37 Dose: 3 ml Sodium Chloride (Sodium Chloride Tab 1 Gm Tablet) 2 gm PO TID PENDING SALE TO [facility] Last Admin: 08/30/23 20:30 Dose: 2 gm Sucralfate (Sucralfate 1 Gm Tablet) 4 gm PO DAILY@1200 PENDING SALE TO [facility] Last Admin: 08/30/23 11:53 Dose: 2 gm Tiotropium [place] (Tiotropium [place] 2.5 Mcg 1 Puff/2.5 Mcg Mist.Inhal) 2 puff INHALE RDAILY PENDING SALE TO [facility] Last Admin: 08/31/23 07:52 Dose: 2 puff Tolterodine Tartrate (Tolterodine Tartrate [place] 4 Mg Cap.Er.24h) 4 mg PO DAILY@0900 PENDING SALE TO [facility] Last Admin: 08/30/23 08:43 Dose: 4 mg Vitamin D (Cholecalciferol (Vitamin D3) 25 Mcg Tablet) 50 mcg PO DAILY@0900 PENDING SALE TO [facility] Last Admin: 08/31/23 10:07 Dose: Not Given Home Medications ?Medication ?Instructions ?Recorded ?Confirmed ?Last Taken ?Type alosetron 0.5 mg tablet 1 mg PO DAILY@0907/22/23 08/24/23 07/22/23 History cholecalciferol (vitamin D3) 50 50 mcg PO DAILY@0907/22/23 08/24/23 07/22/23 History mcg (2,000 unit) capsule metoclopramide HCl 5 mg tablet 5 mg PO TIDAC 07/22/23 08/24/23 Unknown History (Reglan) pantoprazole 40 mg tablet,delayed 40 mg PO DAILY@0630 07/22/23 08/24/23 07/22/23 History release solifenacin 10 mg tablet 10 mg PO DAILY@0907/22/23 08/24/23 07/22/23 History tiotropium bromide 18 mcg capsule 1 cap inhalation DAILY@0900 copd 07/22/23 08/24/23 07/22/23 History with inhalation device (Spiriva with HandiHaler) sucralfate 1 gram tablet (Carafate) 4 g PO DAILY@1200 07/25/23 08/24/23 Unknown History fluticasone propionate 50 1 spray intranasal DAILY 08/24/23 08/24/23 Unknown History mcg/actuation nasal spray,suspension Exam Exam Date and Time: August 31, 2023 1024 Height,Weight and Vital Signs: Height 5 ft 2 in Weight 59.6 kg Last Vital Signs Temp 96.9 F 08/31/23 07:15 Pulse 67 08/31/23 07:36 Resp 18 08/31/23 07:36 BP 160/86 H 08/31/23 08:37 Pulse Ox 95 08/31/23 07:15 O2 Del Method Room Air 08/31/23 07:15 Pertinent Lab Results Pertinent Lab Results: Laboratory Tests 08/24/23 08/24/23 08/24/23 12:27 14:24 16:57 WBC 11.2 H RBC 4.49 Hgb 12.5 Hct 37.3 MCV 83.1 MCH 27.8 MCHC 33.5 RDW 14.6 Plt Count 199 MPV 8.5 L Immature Gran % (Auto) 1.0 H Neut % (Auto) 66.0 Lymph % (Auto) 23.8 [place] % (Auto) 8.3 Eos % (Auto) 0.5 Baso % (Auto) 0.4 Lymph # (Auto) 2.7 [place] # (Auto) 0.9 Eos # (Auto) 0.1 Baso # (Auto) 0.0 Abs Immat Gran (auto) 0.11 H Absolute Neuts (auto) 7.4 Absolute Nucleated RBC 0.000 Nucleated RBC % (auto) 0.0 Sodium 128 L Potassium 4.0 Chloride 94 L Carbon Dioxide 20 L Anion Gap 18 BUN 11 Creatinine 0.69 Estim Creat Clear Calc 65.1 Estimated GFR > 60 POC Glucose Random Glucose 96 Fasting Glucose Lactic Acid 2.1 H* Lactic Acid F/U @ 2Hr 1.5 Calcium 9.3 Magnesium 1.9 Total Bilirubin 0.6 Direct Bilirubin 0.2 AST 18 ALT 8 Alkaline Phosphatase 63 Total Protein 6.8 Albumin 4.1 Urine Osmolality Ur Random Sodium Urine Creatinine Nasal Screen MRSA (PCR) Nasal S. aureus Screen Nasal MRSA/S.aureus Interp Stl C. cayetanensis PCR Stool Rotavirus A PCR Stl Adenov F 40/41 PCR Stool Astrovirus (PCR) Stool Campylobacter PCR Stool Cryptosporidium PCR Stl Sh Tox Pr E STEC PCR Stool E coli O157 PCR Stl Enterotoxigenic E PCR Stool EPEC (PCR) Stool EAEC (PCR) Stl E. histolytica PCR Stool Giardia Lamblia PCR Stl P. shigelloides PCR Stool Salmonella PCR Stool Sapovirus (PCR) Stl Shigella/EIEC PCR St Y.enterocolitica PCR Stool Vibrio (PCR) Stl Vibrio cholerae PCR Stl Norovirus GI/GII PCR Random Vancomycin Urine Opiates Screen Ur Buprenorphine Scrn Ur Oxycodone Screen Urine Methadone Screen Urine Fentanyl Screen Ur Barbiturates Screen Ur Phencyclidine Scrn Ur Amphetamines Screen U Benzodiazepines Scrn Urine Cocaine Screen U Marijuana (THC) Screen C. difficile Tox B Gene Ur L.pneumophila Ag Ur Strep pneumoniae Ag 08/24/23 08/24/23 08/25/23 23:02 23:55 05:26 WBC 7.0 RBC 4.02 L Hgb 11.0 L Hct 33.2 L MCV 82.6 MCH 27.4 MCHC 33.1 RDW 14.6 Plt Count 157 L MPV 8.9 L Immature Gran % (Auto) 1.1 H Neut % (Auto) 63.4 Lymph % (Auto) 26.2 [place] % (Auto) 7.3 Eos % (Auto) 1.6 Baso % (Auto) 0.4 Lymph # (Auto) 1.8 [place] # (Auto) 0.5 Eos # (Auto) 0.1 Baso # (Auto) 0.0 Abs Immat Gran (auto) 0.08 H Absolute Neuts (auto) 4.4 Absolute Nucleated RBC 0.000 Nucleated RBC % (auto) 0.0 Sodium 124 L Potassium 3.8 Chloride 97 Carbon Dioxide 18 L Anion Gap 13 BUN 6 L Creatinine 0.56 Estim Creat Clear Calc 80.2 Estimated GFR > 60 POC Glucose Random Glucose 80 Fasting Glucose Lactic Acid Lactic Acid F/U @ 2Hr Calcium 7.7 L D Magnesium Total Bilirubin Direct Bilirubin AST ALT Alkaline Phosphatase Total Protein Albumin Urine Osmolality 631 Ur Random Sodium 256.0 Urine Creatinine 40.05 Nasal Screen MRSA (PCR) NEGATIVE Nasal S. aureus Screen NEGATIVE Nasal MRSA/S.aureus Interp SEE NOTE Stl C. cayetanensis PCR Stool Rotavirus A PCR Stl Adenov F 40/ PCR Stool Astrovirus (PCR) Stool Campylobacter PCR Stool Cryptosporidium PCR Stl Sh Tox Pr E STEC PCR Stool E coli O157 PCR Stl Enterotoxigenic E PCR Stool EPEC (PCR) Stool EAEC (PCR) Stl E. histolytica PCR Stool Giardia Lamblia PCR Stl P. shigelloides PCR Stool Salmonella PCR Stool Sapovirus (PCR) Stl Shigella/EIEC PCR St Y.enterocolitica PCR Stool Vibrio (PCR) Stl Vibrio cholerae PCR Stl Norovirus GI/GII PCR Random Vancomycin Urine Opiates Screen Not Detected Ur Buprenorphine Scrn Not Detected Ur Oxycodone Screen Not Detected Urine Methadone Screen Not Detected Urine Fentanyl Screen Not Detected Ur Barbiturates Screen Not Detected Ur Phencyclidine Scrn Not Detected Ur Amphetamines Screen Not Detected U Benzodiazepines Scrn Not Detected Urine Cocaine Screen Not Detected U Marijuana (THC) Screen POSITIVE H C. difficile Tox B Gene Ur L.pneumophila Ag Not Detected Ur Strep pneumoniae Ag Not Detected 08/25/23 08/25/23 08/26/23 07:14 Unknown 05:28 WBC 8.9 RBC 4.54 Hgb 12.6 Hct 36.7 L MCV 80.8 MCH 27.8 MCHC 34.3 RDW 13.8 Plt Count 179 MPV 9.1 L Immature Gran % (Auto) Neut % (Auto) Lymph % (Auto) [place] % (Auto) Eos % (Auto) Baso % (Auto) Lymph # (Auto) [place] # (Auto) Eos # (Auto) Baso # (Auto) Abs Immat Gran (auto) Absolute Neuts (auto) Absolute Nucleated RBC 0.000 Nucleated RBC % (auto) 0.0 Sodium 116 L* Potassium 4.0 Chloride 83 L Carbon Dioxide 21 L Anion Gap 16 BUN 7 L Creatinine 0.61 Estim Creat Clear Calc 73.6 Estimated GFR > 60 POC Glucose Random Glucose Fasting Glucose 66 Lactic Acid Lactic Acid F/U @ 2Hr Calcium 8.5 D Magnesium Total Bilirubin Direct Bilirubin AST ALT Alkaline Phosphatase Total Protein Albumin Urine Osmolality Ur Random Sodium Urine Creatinine Nasal Screen MRSA (PCR) Nasal S. aureus Screen Nasal MRSA/S.aureus Interp Stl C. cayetanensis PCR Not Detected Stool Rotavirus A PCR Not Detected Stl Adenov F 40/41 PCR Not Detected Stool Astrovirus (PCR) Not Detected Stool Campylobacter PCR Not Detected Stool Cryptosporidium PCR Not Detected Stl Sh Tox Pr E STEC PCR Not Detected Stool E coli O157 PCR Not applicable Stl Enterotoxigenic E PCR Not Detected Stool EPEC (PCR) Not Detected Stool EAEC (PCR) Not Detected Stl E. histolytica PCR Not Detected Stool Giardia Lamblia PCR Not Detected Stl P. shigelloides PCR Not Detected Stool Salmonella PCR Not Detected Stool Sapovirus (PCR) Not Detected Stl Shigella/EIEC PCR Not Detected St Y.enterocolitica PCR Not Detected Stool Vibrio (PCR) Not Detected Stl Vibrio cholerae PCR Not Detected Stl Norovirus GI/GII PCR Not Detected Random Vancomycin Urine Opiates Screen Ur Buprenorphine Scrn Ur Oxycodone Screen Urine Methadone Screen Urine Fentanyl Screen Ur Barbiturates Screen Ur Phencyclidine Scrn Ur Amphetamines Screen U Benzodiazepines Scrn Urine Cocaine Screen U Marijuana (THC) Screen C. difficile Tox B Gene TNP Ur L.pneumophila Ag Ur Strep pneumoniae Ag 08/26/23 08/26/23 08/26/23 09:58 13:29 19:05 WBC RBC Hgb Hct MCV MCH MCHC RDW Plt Count MPV Immature Gran % (Auto) Neut % (Auto) Lymph % (Auto) [place] % (Auto) Eos % (Auto) Baso % (Auto) Lymph # (Auto) [place] # (Auto) Eos # (Auto) Baso # (Auto) Abs Immat Gran (auto) Absolute Neuts (auto) Absolute Nucleated RBC Nucleated RBC % (auto) Sodium 116 L* 117 L* 117 L* Potassium 4.2 4.4 4.7 Chloride 83 L 85 L 91 L Carbon Dioxide 18 L 21 L 14 L Anion Gap 19 15 17 BUN 7 L 8 L 9 Creatinine 0.57 0.60 0.76 Estim Creat Clear Calc 78.8 74.9 59.1 Estimated GFR > 60 > 60 > 60 POC Glucose Random Glucose 80 139 H 86 Fasting Glucose Lactic Acid Lactic Acid F/U @ 2Hr Calcium 9.1 D 8.9 8.5 Magnesium Total Bilirubin Direct Bilirubin AST ALT Alkaline Phosphatase Total Protein Albumin Urine Osmolality Ur Random Sodium Urine Creatinine Nasal Screen MRSA (PCR) Nasal S. aureus Screen Nasal MRSA/S.aureus Interp Stl C. cayetanensis PCR Stool Rotavirus A PCR Stl Adenov F PCR Stool Astrovirus (PCR) Stool Campylobacter PCR Stool Cryptosporidium PCR Stl Sh Tox Pr E STEC PCR Stool E coli O157 PCR Stl Enterotoxigenic E PCR Stool EPEC (PCR) Stool EAEC (PCR) Stl E. histolytica PCR Stool Giardia Lamblia PCR Stl P. shigelloides PCR Stool Salmonella PCR Stool Sapovirus (PCR) Stl Shigella/EIEC PCR St Y.enterocolitica PCR Stool Vibrio (PCR) Stl Vibrio cholerae PCR Stl Norovirus GI/GII PCR Random Vancomycin 7.4 L Urine Opiates Screen Ur Buprenorphine Scrn Ur Oxycodone Screen Urine Methadone Screen Urine Fentanyl Screen Ur Barbiturates Screen Ur Phencyclidine Scrn Ur Amphetamines Screen U Benzodiazepines Scrn Urine Cocaine Screen U Marijuana (THC) Screen C. difficile Tox B Gene Ur L.pneumophila Ag Ur Strep pneumoniae Ag 08/27/23 08/28/23 08/28/23 05:40 05:30 09:00 WBC 6.6 RBC 4.22 Hgb 11.7 L Hct 33.5 L MCV 79.4 L MCH 27.7 MCHC 34.9 RDW 14.1 Plt Count 157 L MPV 8.9 L Immature Gran % (Auto) Neut % (Auto) Lymph % (Auto) [place] % (Auto) Eos % (Auto) Baso % (Auto) Lymph # (Auto) [place] # (Auto) Eos # (Auto) Baso # (Auto) Abs Immat Gran (auto) Absolute Neuts (auto) Absolute Nucleated RBC 0.000 Nucleated RBC % (auto) 0.0 Sodium 122 L 125 L Potassium 3.9 3.1 L D Chloride 91 L 94 L Carbon Dioxide 21 L 23 Anion Gap 14 11 L BUN 10 6 L Creatinine 0.64 0.53 Estim Creat Clear Calc 70.2 84.7 Estimated GFR > 60 > 60 POC Glucose Random Glucose Fasting Glucose 89 99 Lactic Acid Lactic Acid F/U @ 2Hr Calcium 8.3 L 8.5 Magnesium Total Bilirubin Direct Bilirubin AST ALT Alkaline Phosphatase Total Protein Albumin Urine Osmolality Ur Random Sodium Urine Creatinine Nasal Screen MRSA (PCR) Nasal S. aureus Screen Nasal MRSA/S.aureus Interp Stl C. cayetanensis PCR Not Detected Stool Rotavirus A PCR Not Detected Stl Adenov F 40/41 PCR Not Detected Stool Astrovirus (PCR) Not Detected Stool Campylobacter PCR Not Detected Stool Cryptosporidium PCR Not Detected Stl Sh Tox Pr E STEC PCR Not Detected Stool E coli O157 PCR Not applicable Stl Enterotoxigenic E PCR Not Detected Stool EPEC (PCR) Not Detected Stool EAEC (PCR) Not Detected Stl E. histolytica PCR Not Detected Stool Giardia Lamblia PCR Not Detected Stl P. shigelloides PCR Not Detected Stool Salmonella PCR Not Detected Stool Sapovirus (PCR) Not Detected Stl Shigella/EIEC PCR Not Detected St Y.enterocolitica PCR Not Detected Stool Vibrio (PCR) Not Detected Stl Vibrio cholerae PCR Not Detected Stl Norovirus GI/GII PCR Not Detected Random Vancomycin Urine Opiates Screen Ur Buprenorphine Scrn Ur Oxycodone Screen Urine Methadone Screen Urine Fentanyl Screen Ur Barbiturates Screen Ur Phencyclidine Scrn Ur Amphetamines Screen U Benzodiazepines Scrn Urine Cocaine Screen U Marijuana (THC) Screen C. difficile Tox B Gene NEGATIVE Ur L.pneumophila Ag Ur Strep pneumoniae Ag 08/29/23 08/30/23 08/31/23 05:22 05:16 05:05 WBC 6.4 5.6 RBC 3.87 L 3.63 L Hgb 10.8 L 10.3 L Hct 31.6 L 29.5 L MCV 81.7 81.3 MCH 27.9 28.4 MCHC 34.2 34.9 RDW 14.6 15.2 Plt Count 153 L 141 L MPV 9.0 L 8.8 L Immature Gran % (Auto) Neut % (Auto) Lymph % (Auto) [place] % (Auto) Eos % (Auto) Baso % (Auto) Lymph # (Auto) [place] # (Auto) Eos # (Auto) Baso # (Auto) Abs Immat Gran (auto) Absolute Neuts (auto) Absolute Nucleated RBC 0.000 0.000 Nucleated RBC % (auto) 0.0 0.0 Sodium 127 L 127 L 127 L Potassium 4.1 D 3.9 4.1 Chloride 96 96 96 Carbon Dioxide 23 21 L 21 L Anion Gap 12 14 14 BUN 9 12 10 Creatinine 0.62 0.59 0.64 Estim Creat Clear Calc 72.4 76.2 70.2 Estimated GFR > 60 > 60 > 60 POC Glucose Random Glucose Fasting Glucose 84 103 H 90 Lactic Acid Lactic Acid F/U @ 2Hr Calcium 8.8 8.7 8.5 Magnesium Total Bilirubin Direct Bilirubin AST ALT Alkaline Phosphatase Total Protein Albumin Urine Osmolality Ur Random Sodium Urine Creatinine Nasal Screen MRSA (PCR) Nasal S. aureus Screen Nasal MRSA/S.aureus Interp Stl C. cayetanensis PCR Stool Rotavirus A PCR Stl Adenov F 40/41 PCR Stool Astrovirus (PCR) Stool Campylobacter PCR Stool Cryptosporidium PCR Stl Sh Tox Pr E STEC PCR Stool E coli O157 PCR Stl Enterotoxigenic E PCR Stool EPEC (PCR) Stool EAEC (PCR) Stl E. histolytica PCR Stool Giardia Lamblia PCR Stl P. shigelloides PCR Stool Salmonella PCR Stool Sapovirus (PCR) Stl Shigella/EIEC PCR St Y.enterocolitica PCR Stool Vibrio (PCR) Stl Vibrio cholerae PCR Stl Norovirus GI/GII PCR Random Vancomycin Urine Opiates Screen Ur Buprenorphine Scrn Ur Oxycodone Screen Urine Methadone Screen Urine Fentanyl Screen Ur Barbiturates Screen Ur Phencyclidine Scrn Ur Amphetamines Screen U Benzodiazepines Scrn Urine Cocaine Screen U Marijuana (THC) Screen C. difficile Tox B Gene Ur L.pneumophila Ag Ur Strep pneumoniae Ag 08/31/23 07:21 WBC RBC Hgb Hct MCV MCH MCHC RDW Plt Count MPV Immature Gran % (Auto) Neut % (Auto) Lymph % (Auto) [place] % (Auto) Eos % (Auto) Baso % (Auto) Lymph # (Auto) [place] # (Auto) Eos # (Auto) Baso # (Auto) Abs Immat Gran (auto) Absolute Neuts (auto) Absolute Nucleated RBC Nucleated RBC % (auto) Sodium Potassium Chloride Carbon Dioxide Anion Gap BUN Creatinine Estim Creat Clear Calc Estimated GFR POC Glucose 102 Random Glucose Fasting Glucose Lactic Acid Lactic Acid F/U @ 2Hr Calcium Magnesium Total Bilirubin Direct Bilirubin AST ALT Alkaline Phosphatase Total Protein Albumin Urine Osmolality Ur Random Sodium Urine Creatinine Nasal Screen MRSA (PCR) Nasal S. aureus Screen Nasal MRSA/S.aureus Interp Stl C. cayetanensis PCR Stool Rotavirus A PCR Stl Adenov F 40/41 PCR Stool Astrovirus (PCR) Stool Campylobacter PCR Stool Cryptosporidium PCR Stl Sh Tox Pr E STEC PCR Stool E coli O157 PCR Stl Enterotoxigenic E PCR Stool EPEC (PCR) Stool EAEC (PCR) Stl E. histolytica PCR Stool Giardia Lamblia PCR Stl P. shigelloides PCR Stool Salmonella PCR Stool Sapovirus (PCR) Stl Shigella/EIEC PCR St Y.enterocolitica PCR Stool Vibrio (PCR) Stl Vibrio cholerae PCR Stl Norovirus GI/GII PCR Random Vancomycin Urine Opiates Screen Ur Buprenorphine Scrn Ur Oxycodone Screen Urine Methadone Screen Urine Fentanyl Screen Ur Barbiturates Screen Ur Phencyclidine Scrn Ur Amphetamines Screen U Benzodiazepines Scrn Urine Cocaine Screen U Marijuana (THC) Screen C. difficile Tox B Gene Ur L.pneumophila Ag Ur Strep pneumoniae Ag Airway Mallampati Class: I TM Dist: >3cm Neck ROM: Full Loose/Missing/Broken Teeth: Yes (edentulous) Heart: S1S2 Lungs: CTAB Assessment and Plan Assessment Anesthesia Assessment: Anesthesia Plan Discussed and Chart Reviewed Final Anesthetic Review Family History of Problems with Anesthesia: No History of Problems with Anesthesia: No NPO: Yes ASA Class: III and Emergency Final Preanesthetic Review: No Changes in Pt Med Stat, Meds/Allgs Chart Reviewed, Consent Obtained/Reviewed and Anes Risks/Benef Reviewed Patient Risk: Intermediate Procedure Risk: Intermediate Anesthetic Plan Anesthetic Plan: GA and Agree w/ Assess. and Plan Disposition: Standard PACU
[2023-08-31] MEDS: Metoclopramide HCl 5 MG TABLET PO ×2 (11:56→16:52)
[2023-08-31] MEDS: Sucralfate 1 GM TABLET 4 GM PO (11:57)
[2023-08-31] MEDS: Losartan Potassium 25 MG TABLET PO (11:57)
[2023-08-31] MEDS: Sodium Chloride Tab 1 GM TABLET 2 GM PO ×3 (11:57→19:59)
[2023-08-31] MEDS: Metoprolol Succinate ER 50 MG TAB.ER.24H PO (11:58)
--- NOTE | 2023-08-31 14:03 | MHC.CM.PN ---
PER MD ROUNDS, PT NOT MEDICALLY CLEARED TO DC DCP REMAINS HOME VIA PRIVATE TRANSPORT
[2023-08-31] MEDS: guaiFENesin DM 200/20/10 ML 10 ML SYRUP PO (14:12)
[2023-08-31] MEDS: Heparin Sodium,Porcine 5,000 UNIT/ML VIAL 5000 UNIT SUBCUT (19:58)
[2023-08-31] MEDS: LORazepam 1 MG TABLET PO (20:00)
[2023-08-31] MEDS: Mirtazapine 30 MG TABLET PO (20:00)
[2023-08-31] MEDS: hydrOXYzine HCL 50 MG TABLET PO (20:00)
[2023-08-31] MEDS: Atorvastatin Calcium 20 MG TABLET PO (20:00)
[2023-09-01] VITALS (7 sets, daily range): BP systolic 124–176; BP diastolic 67–90; PULSE 61–76; RESP 16–18; TEMP 36–36.4; O2SAT 93–97
[2023-09-01] MEDS: Piperacillin Sodium/Tazobactam 4.5 GM in 0.9 % Sodium Chloride 100 ML IV ×2 (03:03→08:19)
[2023-09-01] MEDS: Omeprazole 20 MG CAPSULE.DR PO (05:46)
[2023-09-01] MEDS: Loperamide HCl 2 MG CAPSULE PO ×4 (05:46→21:06)
[2023-09-01 06:33] LABS: Anion Gap 17 (12-20); Blood Urea Nitrogen 10 mg/dL (9-16); Calcium 9.2 mg/dL (8.4-10.2); Carbon Dioxide 22 mmol/L (22-29); Chloride 92 mmol/L (96-108); Creatinine Clr Calc Pharmacy 67.1; Estimated Glomerular Filt Rate > 60; Glucose Fasting 90 mg/dL (60-99); Potassium 4.2 mmol/L (3.3-5.1); Sodium 127 mmol/L (135-145)
[2023-09-01] MEDS: Tiotropium Bromide 2.5 mcg 1 PUFF/2.5 MCG MIST.INHAL 2 PUFF INHALE (07:46)
[2023-09-01] MEDS: Escitalopram Oxalate 20 MG TABLET PO (08:18)
[2023-09-01] MEDS: Cholecalciferol (Vitamin D3) 25 MCG TABLET 50 MCG PO (08:18)
[2023-09-01] MEDS: Sodium Chloride Tab 1 GM TABLET 2 GM PO ×3 (08:18→20:02)
[2023-09-01] MEDS: Tolterodine Tartrate LA 4 MG CAP.ER.24H PO (08:18)
[2023-09-01] MEDS: Metoprolol Succinate ER 50 MG TAB.ER.24H PO (08:18)
[2023-09-01] MEDS: Losartan Potassium 25 MG TABLET PO (08:19)
[2023-09-01] MEDS: Nicotine 14 MG PATCH.TD24 TRANSDERMA (08:19)
[2023-09-01] MEDS: Heparin Sodium,Porcine 5,000 UNIT/ML VIAL 5000 UNIT SUBCUT ×2 (08:19→20:05)
[2023-09-01] MEDS: Metoclopramide HCl 5 MG TABLET PO ×3 (08:19→16:52)
[2023-09-01] MEDS: Fluticasone Propionate Nasal 16 GM SPRAY 1 SPRAY NOSTRIL-B (08:19)
[2023-09-01] MEDS: 0.9 % Sodium Chloride Flush 3 ML SYRINGE IVFLUSH ×3 (08:20→19:58)
--- NOTE | 2023-09-01 08:58 | HO.PM.IMPN ---
Subjective Subjective Date of Service: 09/01/23 Interval History: diarrhea Physical Exam Vital Signs: Vital Signs: Last Vital Signs Temp 96.9 F 09/01/23 07:23 Pulse 76 09/01/23 08:18 Resp 18 09/01/23 07:49 BP 146/75 H 09/01/23 08:19 Pulse Ox 96 09/01/23 07:23 O2 Del Method Room Air 09/01/23 07:23 BMI result Body Mass Index 24.0 Const: General: no acute distress Eyes: EOM: EOMs intact bilaterally Neck: Neck: Yes supple Resp: Auscultation: diminished lung sounds Cardio: Rate: regular rate GI: Palpation (GI): Soft to palpation Neuro: General: moves all extremities Objective Data Active Medications Acetaminophen (Acetaminophen 325 Mg Tablet) 650 mg PO Q6H PRN PRN Reason: Pain, Mild (Pain Scale 1-3) Last Admin: 08/30/23 08:44 Dose: 650 mg Documented By: MANJU Aspirin (Aspirin Enteric Coated 81 Mg Tablet.Dr) 81 mg PO DAILY [facility] [place] Last Admin: 08/25/23 09:03 Dose: 81 mg Documented By: VIJAYA Atorvastatin Calcium (Atorvastatin Calcium 20 Mg Tablet) 20 mg PO BEDTIME [facility] [place] Last Admin: 08/31/23 20:00 Dose: 20 mg Documented By: GLENIS Cyclobenzaprine HCl (Cyclobenzaprine Hcl 5 Mg Tablet) 5 mg PO TID PRN PRN Reason: muscle spasm Escitalopram Oxalate (Escitalopram Oxalate 20 Mg Tablet) 20 mg PO DAILY [facility] [place] Last Admin: 09/01/23 08:18 Dose: 20 mg Documented By: EB Fluticasone Propionate (Fluticasone Propionate Nasal 16 Gm [place]) 1 spray NOSTRIL-B DAILY [facility] [place] Last Admin: 09/01/23 08:19 Dose: 1 spray Documented By: EB Guaifenesin/Dextromethorphan (Guaifenesin Dm 200/20/10 Ml 10 Ml Syrup) 10 ml PO TID PRN PRN Reason: cough Last Admin: 08/31/23 14:12 Dose: 10 ml Documented By: MANJU Haloperidol Lactate (Haloperidol Lactate 5 Mg/Ml Vial) 1 mg IVPUSH ONCE PRN PRN Reason: Nausea and Vomiting Heparin Sodium (Porcine) (Heparin Sodium,Porcine 5,000 Unit/Ml Vial) 5,000 unit SUBCUT Q12H [facility] [place] Last Admin: 09/01/23 08:19 Dose: 5,000 unit Documented By: EB Hydroxyzine HCl (Hydroxyzine Hcl 50 Mg Tablet) 50 mg PO BEDTIME [facility] [place] Last Admin: 08/31/23 20:00 Dose: 50 mg Documented By: GLENIS Piperacillin Sod/Tazobactam (Sod 4.5 gm/ Sodium Chloride) 100 mls @ 200 mls/hr IV Q6H [facility] [place] Last Admin: 09/01/23 08:19 Dose: 200 mls/hr Documented By: EB Loperamide HCl (Loperamide Hcl 2 Mg Capsule) 2 mg PO Q4H PRN PRN Reason: Diarrhea Last Admin: 09/01/23 05:46 Dose: 2 mg Documented By: GLENIS Lorazepam (Lorazepam 1 Mg Tablet) 1 mg PO BID PRN PRN Reason: anxiety/restlessness Last Admin: 08/31/23 20:00 Dose: 1 mg Documented By: GLENIS Losartan Potassium (Losartan Potassium 25 Mg Tablet) 25 mg PO DAILY@0900 [facility] [place]; Protocol Last Admin: 09/01/23 08:19 Dose: 25 mg Documented By: EB Magnesium Hydroxide (Milk Of Magnesia 30 Ml Oral.Susp) 30 ml PO DAILY PRN PRN Reason: Constipation Metoclopramide HCl (Metoclopramide Hcl 5 Mg Tablet) 5 mg PO TIDAC [facility] [place] Last Admin: 09/01/23 08:19 Dose: 5 mg Documented By: EB Metoprolol Succinate (Metoprolol Succinate Er 50 Mg Tab.Er.24h) 50 mg PO DAILY [facility] [place]; Protocol Last Admin: 09/01/23 08:18 Dose: 50 mg Documented By: EB Mirtazapine (Mirtazapine 30 Mg Tablet) 30 mg PO BEDTIME [facility] [place] Last Admin: 08/31/23 20:00 Dose: 30 mg Documented By: GLENIS Nicotine (Nicotine 14 Mg Patch.Td24) 14 mg TRANSDERMA DAILY [facility] [place] Last Admin: 09/01/23 08:19 Dose: 14 mg Documented By: EB Omeprazole (Omeprazole 20 Mg Capsule.Dr) 20 mg PO DAILY@0630 [facility] [place] Last Admin: 09/01/23 05:46 Dose: 20 mg Documented By: GLENIS Ondansetron HCl (Ondansetron Hcl 4 Mg/2 Ml Vial) 4 mg IVPUSH Q8H PRN PRN Reason: Nausea and Vomiting Last Admin: 08/26/23 08:24 Dose: 4 mg Documented By: ARIEL Sodium Chloride (0.9 % Sodium Chloride Flush 3 Ml Syringe) 3 ml IVFLUSH QSHIFT [facility] [place] Last Admin: 09/01/23 08:20 Dose: 3 ml Documented By: EB Sodium Chloride (Sodium Chloride Tab 1 Gm Tablet) 2 gm PO TID [facility] [place] Last Admin: 09/01/23 08:18 Dose: 2 gm Documented By: EB Sucralfate (Sucralfate 1 Gm Tablet) 4 gm PO DAILY@1200 [facility] [place] Last Admin: 08/31/23 11:57 Dose: 2 gm Documented By: MANJU Comments: patient refused half dose Tiotropium [place] (Tiotropium [place] 2.5 Mcg 1 Puff/2.5 Mcg Mist.Inhal) 2 puff INHALE RDAILY [facility] [place] Last Admin: 09/01/23 07:46 Dose: 2 puff Documented By: YESIKA Tolterodine Tartrate (Tolterodine Tartrate La 4 Mg Cap.Er.24h) 4 mg PO DAILY@0900 [facility] [place] Last Admin: 09/01/23 08:18 Dose: 4 mg Documented By: EB Vitamin D (Cholecalciferol (Vitamin D3) 25 Mcg Tablet) 50 mcg PO DAILY@0900 [facility] [place] Last Admin: 09/01/23 08:18 Dose: 50 mcg Documented By: EB Labs 08/31/23 05:05 09/01/23 05:58 Labs: Laboratory Results - last 24 hr 09/01/23 05:58 Anion Gap 17 Estim Creat Clear Calc 67.1 Estimated GFR > 60 Fasting Glucose 90 Calcium 9.2 D Assessment and Plan (1) Acute hyponatremia: Status: Acute Plan 62F pmh COPD, hcv, HTN, HLD, anemia, GERD, IBS, gastroparesis, anxiety, depression presented with cough, sob, found to have postobstructive pneumonia Postobstructive pneumonia due to right hilar mass/opacity completed antibiotics course s/p bronchoscopy 08/31/23 - suspicious for malignancy, biopsies taken Acute hyponatremia 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 Improved at appropriate rate, now stable at 127 not tolerating urea, started on high-dose salt tablets, continue fluid restriction, continue monitoring, may need to accept lower goal of high 120s as long as asymptomatic diarrhea cdif, stool pcr, legionella negative imodium prn COPD Continue bronchodilators Hypertension Losartan, metoprolol DVT prophylaxis-heparin subQ Full code reason for continued hospitalization: hyponatremia, diarrhea Quality Stroke Does the patient have a stroke diagnosis?: No VTE Prior VTE?: No VTE Risk Level:: Medical - moderate - high VTE Device Contraindication: Treatment Not Indicated VTE Drug Contraindication: N/A - Med Ordered
--- NOTE | 2023-09-01 09:15 | P.PNNP_ITS ---
Subjective Subjective Date of Service: 09/02/23 Principal diagnosis: Hyponatremia Interval history: Events noted. Sodium at 127 Did not tolerate urea powder Physical Exam 2 Vital Signs: Vital Signs: Last Vital Signs Temp 96.9 F 09/01/23 07:23 Pulse 76 09/01/23 08:18 Resp 18 09/01/23 07:49 BP 146/75 H 09/01/23 08:19 Pulse Ox 96 09/01/23 07:23 O2 Del Method Room Air 09/01/23 07:23 BMI result Body Mass Index 24.0 Awake. Comfortable. Neck is supple. Mucosa moist. Lungs bilateral scattered rhonchi. Heart S1-S2 heard no gallop. Abdomen soft. Extremities no edema. No involuntary movements. No myoclonus. Objective Data Labs 08/31/23 05:05 09/02/23 05:47 Labs: Laboratory Results - last 24 hr 09/01/23 05:58 Sodium 127 L Potassium 4.2 Chloride 92 L Carbon Dioxide 22 Anion Gap 17 BUN 10 Creatinine 0.67 Estim Creat Clear Calc 67.1 Estimated GFR > 60 Fasting Glucose 90 Calcium 9.2 D Microbiology Microbiology Results: Microbiology 08/24/23 14:24 Blood - Venous Blood Culture - Final No growth after 5 days. 08/24/23 14:24 Blood - Venous Blood Culture - Final No growth after 5 days. 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 Restricted p.o. water intake. Keep on sodium tablets increase osmotic load. Ideally I would like to keep her on urea powder but she has not able to tolerate. Time Spent With Patient Time: Total time managing care of this patient today ____ minutes. Progress Note: Quality Stroke Does the patient have a stroke diagnosis?: No
[2023-09-01] MEDS: guaiFENesin DM 200/20/10 ML 10 ML SYRUP PO (09:36)
--- NOTE | 2023-09-01 10:07 | PM.OP ---
Brief Operative Note Date of Service: 08/31/23 Pre-op diagnosis: Atelectasis Post-op diagnosis: other (Lung cancer) Procedure: Flexible bronchoscope advanced via the ET tube with patient intubated for the procedure and through tracheobronchial tree with visualization of normal endobronchial mucosa on the left and right lower/middle lobes. However, right mainstem bronchus occluded by swollen grape-like tissue with inability to advance bronchoscope through the right upper lobe bronchus. Six separate endobronchial biopsies obtained with endobronchial forceps and sent for pathologic testing. Hemostasis at the biopsy site was observed. Patient tolerated procedure well and was returned to PACU in stable condition. Surgeon: Chris Gross MD Anesthesia: GETA Was an Financial Aid Counselor used for this Procedure?: No Estimated blood loss (mL): 0
[2023-09-01] MEDS: Sucralfate 1 GM TABLET 4 GM PO (11:54)
--- NOTE | 2023-09-01 13:12 | P.PNPL_ITS ---
Subjective Subjective Date of Service: 09/01/23 Principal diagnosis: Hyponatremia Interval history: Now status post endobronchial biopsy at baseline respiratory status. Objective Data Labs 08/31/23 05:05 09/01/23 05:58 Labs: Laboratory Results - last 24 hr 09/01/23 05:58 Sodium 127 L Potassium 4.2 Chloride 92 L Carbon Dioxide 22 Anion Gap 17 BUN 10 Creatinine 0.67 Estim Creat Clear Calc 67.1 Estimated GFR > 60 Fasting Glucose 90 Calcium 9.2 D Microbiology Microbiology Results: Microbiology 08/24/23 14:24 Blood - Venous Blood Culture - Final No growth after 5 days. 08/24/23 14:24 Blood - Venous Blood Culture - Final No growth after 5 days. 08/25/23 13:06 Sputum - Expectorated Gram Stain - Final 08/25/23 13:06 Sputum - Expectorated Sputum Culture - Final Physical Exam 2 Vital Signs: Vital Signs: Last Vital Signs Temp 96.9 F 09/01/23 07:23 Pulse 76 09/01/23 08:18 Resp 18 09/01/23 07:49 BP 146/75 H 09/01/23 08:19 Pulse Ox 96 09/01/23 07:23 O2 Del Method Room Air 09/01/23 07:23 BMI result Body Mass Index 24.0 Const: General: no acute distress, alert and awake Eyes: Sclerae: sclerae normal EOM: EOMs intact bilaterally Neck: Neck: Yes no lymphadenopathy, Yes trachea midline and Yes supple Resp: Effort & Inspection: normal respiratory effort and no respiratory distress Auscultation: clear to auscultation bilaterally Cardio: Rate: regular rate Rhythm: regular rhythm Heart sounds: no gallops, no murmurs and no rubs GI: Palpation (GI): Soft to palpation and Other GI palpation findings present ( Nontender) Auscultation: normal bowel sounds Extrem: General: Yes no pedal edema, No clubbing and No cyanosis Procedures Date of Service Date of Service: 09/01/23 Assessment and Plan Assessment and plan (1) Abnormal CT scan, chest: Status: Acute (2) COPD (chronic obstructive pulmonary disease): Status: Acute Plan Impression: 63-year-old lady with underlying mild COPD admitted with hyponatremia who had an abnormal CT chest. Comparison to lung screening study 2 months prior changes appear to be too rapid to have a definite malignant etiology, though not excluded. Now status post endobronchial biopsy with pathology pending, concerning for rapid malignancy. Recommendations: Appropriate to restart aspirin. Will follow-up on endobronchial biopsies. Respiratory status at baseline. Time Spent With Patient Time: Total time managing care of this patient today ____ minutes. Progress Note: Quality Stroke Does the patient have a stroke diagnosis?: No
--- NOTE | 2023-09-01 14:53 | MHC.CM.PN ---
per rounds pt not medically dari for dc will be in 1 to day plan remains home no services
[2023-09-01] MEDS: Atorvastatin Calcium 20 MG TABLET PO (19:58)
[2023-09-01] MEDS: hydrOXYzine HCL 50 MG TABLET PO (19:58)
[2023-09-01] MEDS: Mirtazapine 30 MG TABLET PO (19:58)
[2023-09-01] MEDS: LORazepam 1 MG TABLET PO (20:02)
--- NOTE | 2023-09-01 23:44 | PC.NURSE ---
Addendum entered by Sarahi Mckinley RN 09/02/23 01:21: BP: 150/80. Hospitalist made aware. Original Note: PTs BP: 176/90, Hospitalist made aware, new one time order in place.
[2023-09-01] MEDS: amLODIPine Besylate 5 MG TABLET PO (23:53)
[2023-09-02] VITALS (8 sets, daily range): BP systolic 123–180; BP diastolic 60–85; PULSE 67–76; RESP 16–18; TEMP 36–36.7; O2SAT 93–97
[2023-09-02] MEDS: Loperamide HCl 2 MG CAPSULE PO ×3 (04:11→19:39)
[2023-09-02] MEDS: Omeprazole 20 MG CAPSULE.DR PO (06:12)
[2023-09-02 06:38] LABS: Anion Gap 11 (12-20); Blood Urea Nitrogen 11 mg/dL (9-16); Calcium 8.9 mg/dL (8.4-10.2); Carbon Dioxide 25 mmol/L (22-29); Chloride 94 mmol/L (96-108); Creatinine Clr Calc Pharmacy 70.2; Estimated Glomerular Filt Rate > 60; Glucose Fasting 105 mg/dL (60-99); Potassium 4.4 mmol/L (3.3-5.1); Sodium 126 mmol/L (135-145)
[2023-09-02] MEDS: Acetaminophen 325 MG TABLET 650 MG PO (07:46)
[2023-09-02] MEDS: Metoprolol Succinate ER 50 MG TAB.ER.24H PO (07:49)
[2023-09-02] MEDS: Metoclopramide HCl 5 MG TABLET PO ×3 (07:49→16:43)
[2023-09-02] MEDS: Aspirin Enteric Coated 81 MG TABLET.DR PO (07:49)
[2023-09-02] MEDS: Losartan Potassium 25 MG TABLET PO ×2 (07:49→16:43)
[2023-09-02] MEDS: Cholecalciferol (Vitamin D3) 25 MCG TABLET 50 MCG PO (07:49)
[2023-09-02] MEDS: Tolterodine Tartrate LA 4 MG CAP.ER.24H PO (07:50)
[2023-09-02] MEDS: 0.9 % Sodium Chloride Flush 3 ML SYRINGE IVFLUSH ×3 (07:50→19:39)
[2023-09-02] MEDS: Heparin Sodium,Porcine 5,000 UNIT/ML VIAL 5000 UNIT SUBCUT ×2 (07:50→19:38)
[2023-09-02] MEDS: Fluticasone Propionate Nasal 16 GM SPRAY 1 SPRAY NOSTRIL-B (07:50)
[2023-09-02] MEDS: Escitalopram Oxalate 20 MG TABLET PO (07:50)
[2023-09-02] MEDS: Nicotine 14 MG PATCH.TD24 TRANSDERMA (07:50)
[2023-09-02] MEDS: Sodium Chloride Tab 1 GM TABLET 2 GM PO ×3 (07:50→19:38)
[2023-09-02] MEDS: Tiotropium Bromide 2.5 mcg 1 PUFF/2.5 MCG MIST.INHAL 2 PUFF INHALE (09:09)
--- NOTE | 2023-09-02 09:58 | P.PNNP_ITS ---
Subjective Subjective Date of Service: 09/03/23 Principal diagnosis: Hyponatremia Interval history: Events noted. Sodium at 126 Did not tolerate urea powder Physical Exam 2 Vital Signs: Vital Signs: Last Vital Signs Temp 98.0 F 09/02/23 07:30 Pulse 70 09/02/23 07:49 Resp 18 09/02/23 07:30 BP 171/78 H 09/02/23 07:49 Pulse Ox 95 09/02/23 07:30 O2 Del Method Room Air 09/02/23 07:30 BMI result Body Mass Index 24.0 Const: General: comfortable Nutritional Appearance: well nourished O rientation/consciousness: patient oriented x3 HEENT: Head: No normal to inspection Mouth: moist mucous membranes Neck: Neck: Yes supple and Yes no JVD Cardio: Jugular venous distension: no JVD Palpation: no palpable S3 and no palpable S4 Heart sounds: no rubs GI: Palpation (GI): Soft to palpation and nontender Percussion: No Fluid wave present : General: Yes no CVA tenderness Back/Spine/Pelvis: Back: no CVA tenderness Skin: General skin exam: no rashes or lesions noted Neuro: General: patient oriented x3 Extrem: General: Yes no pedal edema and No clubbing Objective Data Labs 08/31/23 05:05 09/03/23 06:42 Labs: Laboratory Results - last 24 hr 09/02/23 05:47 Sodium 126 L Potassium 4.4 Chloride 94 L Carbon Dioxide 25 Anion Gap 11 L BUN 11 Creatinine 0.64 Estim Creat Clear Calc 70.2 Estimated GFR > 60 Fasting Glucose 105 H Calcium 8.9 Microbiology Microbiology Results: Microbiology 08/24/23 14:24 Blood - Venous Blood Culture - Final No growth after 5 days. 08/24/23 14:24 Blood - Venous Blood Culture - Final No growth after 5 days. 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 Restricted p.o. water intake. Keep on sodium tablets increase osmotic load. Ideally I would like to keep her on urea powder but she has not able to tolerate. Let us try UREA again- but mix with orange juice instead of water Time Spent With Patient Time: Total time managing care of this patient today ____ minutes. Progress Note: Quality Stroke Does the patient have a stroke diagnosis?: No
[2023-09-02] MEDS: Butalb/Acetamin/Caff 50/325/40 TABLET 2 TAB PO (10:14)
[2023-09-02] MEDS: Diphenoxylate/Atrop 2.5/0.025 TABLET 2 TAB PO (10:14)
--- NOTE | 2023-09-02 10:20 | HO.PM.IMPN ---
Subjective Subjective Date of Service: 09/02/23 Interval History: Seen and evaluated this stevenn complaining of recurrent diarrhea, no pain or fever Na of 126 Pending pathology Review of Systems Review of Systems: Yes all other systems are reviewed and are negative Physical Exam Vital Signs: Vital Signs: Last Vital Signs Temp 98.0 F 09/02/23 07:30 Pulse 70 09/02/23 07:49 Resp 18 09/02/23 07:30 BP 171/78 H 09/02/23 07:49 Pulse Ox 95 09/02/23 07:30 O2 Del Method Room Air 09/02/23 07:30 BMI result Body Mass Index 24.0 Const: Other: Constitutional : Awake, interactive, not in distress Neck : Normal inspection, Supple Cardiovascular : RRR, no JVP, no lower extremity edema Respiratory : fair bilateral air entry, basal crackles, no wheezes Gastrointestinal: soft, lax, Normal bowel sounds, Non tender Skin : Warm, Dry Neurological : Alert & oriented x3, No focal deficit Objective Data Active Medications Acetaminophen (Acetaminophen 325 Mg Tablet) 650 mg PO Q6H PRN PRN Reason: Pain, Mild (Pain Scale 1-3) Last Admin: 09/02/23 07:46 Dose: 650 mg Documented By: EB Amlodipine Besylate (Amlodipine Besylate 5 Mg Tablet) 5 mg PO BEDTIME [facility]; Protocol Last Admin: 09/01/23 23:53 Dose: 5 mg Documented By: DILAN Aspirin (Aspirin Enteric Coated 81 Mg Tablet.) 81 mg PO DAILY [facility] Last Admin: 08/25/23 09:03 Dose: 81 mg Documented By: VIJAYA Aspirin (Aspirin Enteric Coated 81 Mg Tablet.) 81 mg PO DAILY [facility] Last Admin: 09/02/23 07:49 Dose: 81 mg Documented By: EB Atorvastatin Calcium (Atorvastatin Calcium 20 Mg Tablet) 20 mg PO BEDTIME [facility] Last Admin: 09/01/23 19:58 Dose: 20 mg Documented By: DILAN Cyclobenzaprine HCl (Cyclobenzaprine Hcl 5 Mg Tablet) 5 mg PO TID PRN PRN Reason: muscle spasm Escitalopram Oxalate (Escitalopram Oxalate 20 Mg Tablet) 20 mg PO DAILY [facility] Last Admin: 09/02/23 07:50 Dose: 20 mg Documented By: EB Fluticasone Propionate (Fluticasone Propionate Nasal 16 Gm [place]) 1 spray NOSTRIL-B DAILY [facility] Last Admin: 09/02/23 07:50 Dose: 1 spray Documented By: EB Guaifenesin/Dextromethorphan (Guaifenesin Dm 200/20/10 Ml 10 Ml Syrup) 10 ml PO TID PRN PRN Reason: cough Last Admin: 09/01/23 09:36 Dose: 10 ml Documented By: EB Haloperidol Lactate (Haloperidol Lactate 5 Mg/Ml Vial) 1 mg IVPUSH ONCE PRN PRN Reason: Nausea and Vomiting Heparin Sodium (Porcine) (Heparin Sodium,Porcine 5,000 Unit/Ml Vial) 5,000 unit SUBCUT Q12H [facility] Last Admin: 09/02/23 07:50 Dose: 5,000 unit Documented By: BE Hydroxyzine HCl (Hydroxyzine Hcl 50 Mg Tablet) 50 mg PO BEDTIME [facility] Last Admin: 09/01/23 19:58 Dose: 50 mg Documented By: DILAN Loperamide HCl (Loperamide Hcl 2 Mg Capsule) 2 mg PO Q4H PRN PRN Reason: Diarrhea Last Admin: 09/02/23 09:09 Dose: 2 mg Documented By: EB Lorazepam (Lorazepam 1 Mg Tablet) 1 mg PO BID PRN PRN Reason: anxiety/restlessness Last Admin: 09/01/23 20:02 Dose: 1 mg Documented By: DILAN Losartan Potassium (Losartan Potassium 25 Mg Tablet) 25 mg PO DAILY@0900 [facility]; Protocol Last Admin: 09/02/23 07:49 Dose: 25 mg Documented By: EB Magnesium Hydroxide (Milk Of Magnesia 30 Ml Oral.Susp) 30 ml PO DAILY PRN PRN Reason: Constipation Metoclopramide HCl (Metoclopramide Hcl 5 Mg Tablet) 5 mg PO TIDAC [facility] Last Admin: 09/02/23 07:49 Dose: 5 mg Documented By: EB Metoprolol Succinate (Metoprolol Succinate Er 50 Mg Tab.Er.24h) 50 mg PO DAILY [facility]; Protocol Last Admin: 09/02/23 07:49 Dose: 50 mg Documented By: EB Mirtazapine (Mirtazapine 30 Mg Tablet) 30 mg PO BEDTIME [facility] Last Admin: 09/01/23 19:58 Dose: 30 mg Documented By: DILAN Nicotine (Nicotine 14 Mg Patch.Td24) 14 mg TRANSDERMA DAILY [facility] Last Admin: 09/02/23 07:50 Dose: 14 mg Documented By: EB Omeprazole (Omeprazole 20 Mg Capsule.Dr) 20 mg PO DAILY@0630 [facility] Last Admin: 09/02/23 06:12 Dose: 20 mg Documented By: DILAN Ondansetron HCl (Ondansetron Hcl 4 Mg/2 Ml Vial) 4 mg IVPUSH Q8H PRN PRN Reason: Nausea and Vomiting Last Admin: 08/26/23 08:24 Dose: 4 mg Documented By: ARIEL Sodium Chloride (0.9 % Sodium Chloride Flush 3 Ml Syringe) 3 ml IVFLUSH QSHIFT [facility] Last Admin: 09/02/23 07:50 Dose: 3 ml Documented By: EB Sodium Chloride (Sodium Chloride Tab 1 Gm Tablet) 2 gm PO TID [facility] Last Admin: 09/02/23 07:50 Dose: 2 gm Documented By: EB Sucralfate (Sucralfate 1 Gm Tablet) 4 gm PO DAILY@1200 [facility] Last Admin: 09/01/23 11:54 Dose: 4 gm Documented By: EB Tiotropium [place] (Tiotropium [place] 2.5 Mcg 1 Puff/2.5 Mcg Mist.Inhal) 2 puff INHALE RDAILY [facility] Last Admin: 09/02/23 09:09 Dose: 2 puff Documented By: TESS Tolterodine Tartrate (Tolterodine Tartrate La 4 Mg Cap.Er.24h) 4 mg PO DAILY@0900 [facility] Last Admin: 09/02/23 07:50 Dose: 4 mg Documented By: EB Vitamin D (Cholecalciferol (Vitamin D3) 25 Mcg Tablet) 50 mcg PO DAILY@09 [facility] Last Admin: 09/02/23 07:49 Dose: 50 mcg Documented By: EB Labs 08/31/23 05:05 09/02/23 05:47 Labs: Laboratory Results - last 24 hr 09/02/23 05:47 Anion Gap 11 L Estim Creat Clear Calc 70.2 Estimated GFR > 60 Fasting Glucose 105 H Calcium 8.9 Assessment and Plan (1) Acute hyponatremia: Status: Acute (2) Mass of right lung: Status: Acute (3) Postobstructive pneumonia: Status: Acute (4) Acute diarrhea: Status: Acute Plan 62F pmh COPD, hcv, HTN, HLD, anemia, GERD, IBS, gastroparesis, anxiety, depression presented with cough, sob, found to have postobstructive pneumonia Postobstructive pneumonia due to right hilar mass/opacity completed antibiotics course s/p bronchoscopy 08/31/23 - suspicious for malignancy, pending pathology result Acute hyponatremia 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 Improved at appropriate rate, dropped to 126 not tolerating urea, restart Urea with orage juice high-dose salt tablets, continue fluid restriction continue monitoring, may need to accept lower goal of high 120s as long as asymptomatic acute diarrhea negative cdif, stool pcr, legionella negative Loading dose Lomotil Keep imodium prn COPD Continue bronchodilators Hypertension Losartan, metoprolol DVT prophylaxis-heparin subQ Full code reason for continued hospitalization: hyponatremia, diarrhea Quality Stroke Does the patient have a stroke diagnosis?: No VTE Prior VTE?: No VTE Risk Level:: Medical - moderate - high VTE Device Contraindication: Treatment Not Indicated VTE Drug Contraindication: N/A - Med Ordered
[2023-09-02] MEDS: Sucralfate 1 GM TABLET 4 GM PO (11:18)
--- NOTE | 2023-09-02 14:29 | MHC.CM.PN ---
per rounds pt has low sodium may be dcd tomorrow
[2023-09-02] MEDS: LORazepam 1 MG TABLET PO (15:19)
[2023-09-02] MEDS: guaiFENesin DM 200/20/10 ML 10 ML SYRUP PO (16:51)
[2023-09-02] MEDS: amLODIPine Besylate 5 MG TABLET PO (19:39)
[2023-09-02] MEDS: hydrOXYzine HCL 50 MG TABLET PO (19:39)
[2023-09-02] MEDS: Mirtazapine 30 MG TABLET PO (19:39)
[2023-09-02] MEDS: Atorvastatin Calcium 20 MG TABLET PO (20:13)
[2023-09-03] MEDS: Loperamide HCl 2 MG CAPSULE PO (03:11)
[2023-09-03] MEDS: Omeprazole 20 MG CAPSULE.DR PO (05:33)
[2023-09-03 06:51] VITALS: BP 134/60; PULSE 65; RESP 18; TEMP 36.6; O2SAT 94
[2023-09-03 07:28] LABS: Anion Gap 13 (12-20); Blood Urea Nitrogen 11 mg/dL (9-16); Calcium 9.1 mg/dL (8.4-10.2); Carbon Dioxide 22 mmol/L (22-29); Chloride 92 mmol/L (96-108); Creatinine Clr Calc Pharmacy 74.9; Estimated Glomerular Filt Rate > 60; Glucose Random 93 mg/dL (60-115); Potassium 4.4 mmol/L (3.3-5.1); Sodium 123 mmol/L (135-145)
[2023-09-03] MEDS: Tiotropium Bromide 2.5 mcg 1 PUFF/2.5 MCG MIST.INHAL 2 PUFF INHALE (07:29)
[2023-09-03 07:32] VITALS: PULSE 72; RESP 18; O2SAT 96
[2023-09-03] MEDS: Urea 15 GM POWDER 30 GM PO (08:13)
[2023-09-03] MEDS: Sodium Chloride Tab 1 GM TABLET 2 GM PO ×3 (08:13→21:09)
[2023-09-03] MEDS: Tolterodine Tartrate LA 4 MG CAP.ER.24H PO (08:14)
[2023-09-03] MEDS: Aspirin Enteric Coated 81 MG TABLET.DR PO (08:14)
[2023-09-03] MEDS: Cholecalciferol (Vitamin D3) 25 MCG TABLET 50 MCG PO (08:14)
[2023-09-03] MEDS: Losartan Potassium 50 MG TABLET PO (08:14)
[2023-09-03] MEDS: Escitalopram Oxalate 20 MG TABLET PO (08:14)
[2023-09-03] MEDS: Nicotine 14 MG PATCH.TD24 TRANSDERMA (08:15)
[2023-09-03] MEDS: Metoclopramide HCl 5 MG TABLET PO ×3 (08:15→17:12)
[2023-09-03] MEDS: Heparin Sodium,Porcine 5,000 UNIT/ML VIAL 5000 UNIT SUBCUT ×2 (08:16→19:42)
[2023-09-03] MEDS: Fluticasone Propionate Nasal 16 GM SPRAY 1 SPRAY NOSTRIL-B (08:24)
[2023-09-03] MEDS: Metoprolol Succinate ER 50 MG TAB.ER.24H PO (08:30)
[2023-09-03] MEDS: LORazepam 1 MG TABLET PO (09:34)
[2023-09-03] MEDS: ondansetron HCL 4 MG/2 ML VIAL IVPUSH (09:34)
[2023-09-03] MEDS: 0.9 % Sodium Chloride Flush 3 ML SYRINGE IVFLUSH ×3 (09:34→21:10)
--- NOTE | 2023-09-03 10:55 | P.PNNP_ITS ---
Subjective Subjective Date of Service: 09/03/23 Principal diagnosis: Hyponatremia Interval history: Seen and evaluated this mornin complaining of recurrent diarrhea, no pain or fever Na of 126 She is unable to tolerate urea powder and she is literally crying Physical Exam 2 Vital Signs: Vital Signs: Last Vital Signs Temp 98 F 09/03/23 06:51 Pulse 72 09/03/23 07:32 Resp 18 09/03/23 07:32 BP 134/60 09/03/23 06:51 Pulse Ox 94 09/03/23 06:51 O2 Del Method Room Air 09/03/23 06:51 BMI result Body Mass Index 24.0 Const: General: comfortable Nutritional Appearance: well nourished O rientation/consciousness: patient oriented x3 HEENT: Head: No normal to inspection Mouth: moist mucous membranes Neck: Neck: Yes supple and Yes no JVD Cardio: Jugular venous distension: no JVD Palpation: no palpable S3 and no palpable S4 Heart sounds: no rubs GI: Palpation (GI): Soft to palpation and nontender Percussion: No Fluid wave present : General: Yes no CVA tenderness Back/Spine/Pelvis: Back: no CVA tenderness Skin: General skin exam: no rashes or lesions noted Neuro: General: patient oriented x3 Extrem: General: Yes no pedal edema and No clubbing Objective Data Labs 08/31/23 05:05 09/03/23 06:42 Labs: Laboratory Results - last 24 hr 09/03/23 06:42 Hold Purple Top SEE NOTE Sodium 123 L Potassium 4.4 Chloride 92 L Carbon Dioxide 22 Anion Gap 13 BUN 11 Creatinine 0.60 Estim Creat Clear Calc 74.9 Estimated GFR > 60 Random Glucose 93 Calcium 9.1 Microbiology Microbiology Results: Microbiology 08/24/23 14:24 Blood - Venous Blood Culture - Final No growth after 5 days. 08/24/23 14:24 Blood - Venous Blood Culture - Final No growth after 5 days. 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 Restricted p.o. water intake. Keep on sodium tablets increase osmotic load. Ideally I would like to keep her on urea powder but she has not able to tolerate. Discontinue urea powder since she is unable to take this. Time Spent With Patient Time: Total time managing care of this patient today ____ minutes. Progress Note: Quality Stroke Does the patient have a stroke diagnosis?: No
--- NOTE | 2023-09-03 11:49 | HO.PM.IMPN ---
Subjective Subjective Date of Service: 09/03/23 Interval History: Seen and evaluated this stevenn complaining of recurrent diarrhea, no pain or fever Na dropped to 123 Pending pathology Review of Systems Review of Systems: Yes all other systems are reviewed and are negative Physical Exam Vital Signs: Vital Signs: Last Vital Signs Temp 98 F 09/03/23 06:51 Pulse 72 09/03/23 07:32 Resp 18 09/03/23 07:32 BP 134/60 09/03/23 06:51 Pulse Ox 94 09/03/23 06:51 O2 Del Method Room Air 09/03/23 06:51 BMI result Body Mass Index 24.0 Const: Other: Constitutional : Awake, interactive, not in distress Neck : Normal inspection, Supple Cardiovascular : RRR, no JVP, no lower extremity edema Respiratory : fair bilateral air entry, basal crackles, no wheezes Gastrointestinal: soft, lax, Normal bowel sounds, Non tender Skin : Warm, Dry Neurological : Alert & oriented x3, No focal deficit Objective Data Active Medications Acetaminophen (Acetaminophen 325 Mg Tablet) 650 mg PO Q6H PRN PRN Reason: Pain, Mild (Pain Scale 1-3) Last Admin: 09/02/23 07:46 Dose: 650 mg Documented By: EB Amlodipine Besylate (Amlodipine Besylate 5 Mg Tablet) 5 mg PO BEDTIME [facility]; Protocol Last Admin: 09/02/23 19:39 Dose: 5 mg Documented By: GLENIS Aspirin (Aspirin Enteric Coated 81 Mg Tablet.Dr) 81 mg PO DAILY [facility] Last Admin: 09/03/23 08:14 Dose: 81 mg Documented By: BUTCH Atorvastatin Calcium (Atorvastatin Calcium 20 Mg Tablet) 20 mg PO BEDTIME [facility] Last Admin: 09/02/23 20:13 Dose: 20 mg Documented By: GLENIS Cyclobenzaprine HCl (Cyclobenzaprine Hcl 5 Mg Tablet) 5 mg PO TID PRN PRN Reason: muscle spasm Escitalopram Oxalate (Escitalopram Oxalate 20 Mg Tablet) 20 mg PO DAILY [facility] Last Admin: 09/03/23 08:14 Dose: 20 mg Documented By: BUTCH Fluticasone Propionate (Fluticasone Propionate Nasal 16 Gm [place]) 1 spray NOSTRIL-B DAILY [facility] Last Admin: 09/03/23 08:24 Dose: 1 spray Documented By: BUTCH Guaifenesin/Dextromethorphan (Guaifenesin Dm 200/20/10 Ml 10 Ml Syrup) 10 ml PO TID PRN PRN Reason: cough Last Admin: 09/02/23 16:51 Dose: 10 ml Documented By: EB Haloperidol Lactate (Haloperidol Lactate 5 Mg/Ml Vial) 1 mg IVPUSH ONCE PRN PRN Reason: Nausea and Vomiting Heparin Sodium (Porcine) (Heparin Sodium,Porcine 5,000 Unit/Ml Vial) 5,000 unit SUBCUT Q12H [facility] Last Admin: 09/03/23 08:16 Dose: 5,000 unit Documented By: BUTCH Hydroxyzine HCl (Hydroxyzine Hcl 50 Mg Tablet) 50 mg PO BEDTIME [facility] Last Admin: 09/02/23 19:39 Dose: 50 mg Documented By: GLENIS Loperamide HCl (Loperamide Hcl 2 Mg Capsule) 2 mg PO Q4H PRN PRN Reason: Diarrhea Last Admin: 09/03/23 03:11 Dose: 2 mg Documented By: GLENIS Lorazepam (Lorazepam 1 Mg Tablet) 1 mg PO BID PRN PRN Reason: anxiety/restlessness Last Admin: 09/03/23 09:34 Dose: 1 mg Documented By: BUTCH Losartan Potassium (Losartan Potassium 50 Mg Tablet) 50 mg PO DAILY@0900 [facility]; Protocol Last Admin: 09/03/23 08:14 Dose: 50 mg Documented By: BUTCH Magnesium Hydroxide (Milk Of Magnesia 30 Ml Oral.Susp) 30 ml PO DAILY PRN PRN Reason: Constipation Metoclopramide HCl (Metoclopramide Hcl 5 Mg Tablet) 5 mg PO TIDAC [facility] Last Admin: 09/03/23 08:15 Dose: 5 mg Documented By: BUTCH Metoprolol Succinate (Metoprolol Succinate Er 50 Mg Tab.Er.24h) 50 mg PO DAILY [facility]; Protocol Last Admin: 09/03/23 08:30 Dose: 50 mg Documented By: BUTCH Mirtazapine (Mirtazapine 30 Mg Tablet) 30 mg PO BEDTIME [facility] Last Admin: 09/02/23 19:39 Dose: 30 mg Documented By: GLENIS Nicotine (Nicotine 14 Mg Patch.Td24) 14 mg TRANSDERMA DAILY [facility] Last Admin: 09/03/23 08:15 Dose: 14 mg Documented By: BUTCH Omeprazole (Omeprazole 20 Mg Capsule.) 20 mg PO DAILY@0630 [facility] Last Admin: 09/03/23 05:33 Dose: 20 mg Documented By: GLENIS Ondansetron HCl (Ondansetron Hcl 4 Mg/2 Ml Vial) 4 mg IVPUSH Q8H PRN PRN Reason: Nausea and Vomiting Last Admin: 09/03/23 09:34 Dose: 4 mg Documented By: BUTCH Sodium Chloride (0.9 % Sodium Chloride Flush 3 Ml Syringe) 3 ml IVFLUSH QSHIFT [facility] Last Admin: 09/03/23 09:34 Dose: 3 ml Documented By: BUTCH Sodium Chloride (Sodium Chloride Tab 1 Gm Tablet) 2 gm PO TID [facility] Last Admin: 09/03/23 08:13 Dose: 2 gm Documented By: BUTCH Sucralfate (Sucralfate 1 Gm Tablet) 4 gm PO DAILY@1200 [facility] Last Admin: 09/02/23 11:18 Dose: 4 gm Documented By: EB Tiotropium [place] (Tiotropium [place] 2.5 Mcg 1 Puff/2.5 Mcg Mist.Inhal) 2 puff INHALE RDAILY [facility] Last Admin: 09/03/23 07:29 Dose: 2 puff Documented By: LUCIUS Tolterodine Tartrate (Tolterodine Tartrate [place] 4 Mg Cap.Er.24h) 4 mg PO DAILY@0900 [facility] Last Admin: 09/03/23 08:14 Dose: 4 mg Documented By: BUTCH Urea (Urea 15 Gm Powder) 30 gm PO BID [facility] Last Admin: 09/03/23 08:13 Dose: 30 gm Documented By: BUTCH Vitamin D (Cholecalciferol (Vitamin D3) 25 Mcg Tablet) 50 mcg PO DAILY@0900 [facility] Last Admin: 09/03/23 08:14 Dose: 50 mcg Documented By: BUTCH Labs 08/31/23 05:05 09/03/23 06:42 Labs: Laboratory Results - last 24 hr 09/03/23 06:42 Hold Purple Top SEE NOTE Anion Gap 13 Estim Creat Clear Calc 74.9 Estimated GFR > 60 Random Glucose 93 Calcium 9.1 Assessment and Plan (1) Acute hyponatremia: Status: Acute (2) Postobstructive pneumonia: Status: Acute (3) Lung mass: Status: Acute Plan 62F pmh COPD, hcv, HTN, HLD, anemia, GERD, IBS, gastroparesis, anxiety, depression presented with cough, sob, found to have postobstructive pneumonia Postobstructive pneumonia due to right hilar mass/opacity completed antibiotics course s/p bronchoscopy 08/31/23 - suspicious for malignancy, pending pathology result Acute hyponatremia 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 dropped to 123 not tolerating urea, restart Urea as tolerated high-dose salt tablets, Increase fluid restriction to 1.2L continue monitoring, may need to accept lower goal of high 120s as long as asymptomatic follow BMP acute diarrhea negative cdif, stool pcr, legionella negative try Lomotil Keep imodium prn COPD Continue bronchodilators Hypertension Losartan, metoprolol DVT prophylaxis-heparin subQ Full code reason for continued hospitalization: hyponatremia, diarrhea Quality Stroke Does the patient have a stroke diagnosis?: No VTE Prior VTE?: No VTE Risk Level:: Medical - moderate - high VTE Device Contraindication: Treatment Not Indicated VTE Drug Contraindication: N/A - Med Ordered
[2023-09-03] MEDS: Diphenoxylate/Atrop 2.5/0.025 TABLET 2 TAB PO (12:05)
[2023-09-03] MEDS: Sucralfate 1 GM TABLET 4 GM PO (12:05)
[2023-09-03 14:58] VITALS: BP 119/70; PULSE 85; RESP 16; TEMP 36.5; O2SAT 93
[2023-09-03 21:09] VITALS: BP 119/70
[2023-09-03] MEDS: Atorvastatin Calcium 20 MG TABLET PO (21:09)
[2023-09-03] MEDS: amLODIPine Besylate 5 MG TABLET PO (21:09)
[2023-09-03] MEDS: hydrOXYzine HCL 50 MG TABLET PO (21:10)
[2023-09-03] MEDS: Mirtazapine 30 MG TABLET PO (21:10)
[2023-09-04] VITALS (8 sets, daily range): BP systolic 112–125; BP diastolic 60–88; PULSE 71–96; RESP 15–18; TEMP 36–36.7; O2SAT 90–95
[2023-09-04] MEDS: Omeprazole 20 MG CAPSULE.DR PO (05:48)
[2023-09-04 06:19] LABS: Anion Gap 11 (12-20); Blood Urea Nitrogen 20 mg/dL (9-16); Carbon Dioxide 26 mmol/L (22-29); Chloride 93 mmol/L (96-108); Creatinine Clr Calc Pharmacy 72.4; Estimated Glomerular Filt Rate > 60; Glucose Random 108 mg/dL (60-115); Potassium 4.1 mmol/L (3.3-5.1); Sodium 126 mmol/L (135-145)
[2023-09-04] MEDS: Tiotropium Bromide 2.5 mcg 1 PUFF/2.5 MCG MIST.INHAL 2 PUFF INHALE (07:32)
[2023-09-04] MEDS: Heparin Sodium,Porcine 5,000 UNIT/ML VIAL 5000 UNIT SUBCUT ×2 (09:14→20:22)
[2023-09-04] MEDS: Metoprolol Succinate ER 50 MG TAB.ER.24H PO (09:15)
[2023-09-04] MEDS: Escitalopram Oxalate 20 MG TABLET PO (09:15)
[2023-09-04] MEDS: Aspirin Enteric Coated 81 MG TABLET.DR PO (09:16)
[2023-09-04] MEDS: 0.9 % Sodium Chloride Flush 3 ML SYRINGE IVFLUSH ×3 (09:16→20:24)
[2023-09-04] MEDS: Cholecalciferol (Vitamin D3) 25 MCG TABLET 50 MCG PO (09:16)
[2023-09-04] MEDS: Metoclopramide HCl 5 MG TABLET PO ×3 (09:16→15:59)
[2023-09-04] MEDS: Tolterodine Tartrate LA 4 MG CAP.ER.24H PO (09:16)
[2023-09-04] MEDS: Nicotine 14 MG PATCH.TD24 TRANSDERMA (09:17)
[2023-09-04] MEDS: Losartan Potassium 50 MG TABLET PO (09:18)
[2023-09-04] MEDS: Sodium Chloride Tab 1 GM TABLET 2 GM PO ×3 (09:19→20:24)
[2023-09-04] MEDS: Urea 15 GM POWDER 30 GM PO (09:19)
[2023-09-04] MEDS: Fluticasone Propionate Nasal 16 GM SPRAY 1 SPRAY NOSTRIL-B (09:24)
--- NOTE | 2023-09-04 10:21 | P.PNNP_ITS ---
Subjective Subjective Date of Service: 09/04/23 Principal diagnosis: Hyponatremia Interval history: Events noted Sodium 120 Physical Exam 2 Vital Signs: Vital Signs: Last Vital Signs Temp 97.9 F 09/04/23 06:54 Pulse 71 09/04/23 09:15 Resp 18 09/04/23 07:34 BP 125/65 09/04/23 09:18 Pulse Ox 92 09/04/23 06:54 O2 Del Method Room Air 09/04/23 06:54 BMI result Body Mass Index 24.0 Const: General: comfortable Nutritional Appearance: well nourished O rientation/consciousness: patient oriented x3 HEENT: Head: No normal to inspection Mouth: moist mucous membranes Neck: Neck: Yes supple and Yes no JVD Cardio: Jugular venous distension: no JVD Palpation: no palpable S3 and no palpable S4 Heart sounds: no rubs GI: Palpation (GI): Soft to palpation and nontender Percussion: No Fluid wave present : General: Yes no CVA tenderness Back/Spine/Pelvis: Back: no CVA tenderness Skin: General skin exam: no rashes or lesions noted Neuro: General: patient oriented x3 Extrem: General: Yes no pedal edema and No clubbing Objective Data Labs 08/31/23 05:05 09/04/23 05:14 Labs: Laboratory Results - last 24 hr 09/03/23 09/04/23 14:00 05:14 Hold Purple Top SEE NOTE SEE NOTE Sodium 126 L Potassium 4.1 Chloride 93 L Carbon Dioxide 26 Anion Gap 11 L BUN 20 H Creatinine 0.62 Estim Creat Clear Calc 72.4 Estimated GFR > 60 Random Glucose 108 Calcium 9.0 Microbiology Microbiology Results: Microbiology 08/24/23 14:24 Blood - Venous Blood Culture - Final No growth after 5 days. 08/24/23 14:24 Blood - Venous Blood Culture - Final No growth after 5 days. 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 Restricted p.o. water intake. Keep on sodium tablets increase osmotic load. Ideally I would like to keep her on urea powder but she has not able to tolerate. Discontinue urea powder since she is unable to take this. Other option would be to try demeclocycline if sodium drops below 125 despite sodium chloride tablets Time Spent With Patient Time: Total time managing care of this patient today ____ minutes. Progress Note: Quality Stroke Does the patient have a stroke diagnosis?: No
--- NOTE | 2023-09-04 11:37 | HO.PM.IMPN ---
Subjective Subjective Date of Service: 09/04/23 Interval History: Seen and evaluated this marcelonin less diarrhea, no pain or fever Na improved to 126 this morning Pending pathology Review of Systems Review of Systems: Yes all other systems are reviewed and are negative Physical Exam Vital Signs: Vital Signs: Last Vital Signs Temp 97.9 F 09/04/23 06:54 Pulse 71 09/04/23 09:15 Resp 18 09/04/23 07:34 BP 125/65 09/04/23 09:18 Pulse Ox 92 09/04/23 06:54 O2 Del Method Room Air 09/04/23 06:54 BMI result Body Mass Index 24.0 Const: Other: Constitutional : Awake, interactive, not in distress Neck : Normal inspection, Supple Cardiovascular : RRR, no JVP, no lower extremity edema Respiratory : fair bilateral air entry, basal crackles, no wheezes Gastrointestinal: soft, lax, Normal bowel sounds, Non tender Skin : Warm, Dry Neurological : Alert & oriented x3, No focal deficit Objective Data Active Medications Acetaminophen (Acetaminophen 325 Mg Tablet) 650 mg PO Q6H PRN PRN Reason: Pain, Mild (Pain Scale 1-3) Last Admin: 09/02/23 07:46 Dose: 650 mg Documented By: EB Amlodipine Besylate (Amlodipine Besylate 5 Mg Tablet) 5 mg PO BEDTIME [facility]; Protocol Last Admin: 09/03/23 21:09 Dose: 5 mg Documented By: DANUTA Aspirin (Aspirin Enteric Coated 81 Mg Tablet.) 81 mg PO DAILY [facility] Last Admin: 09/04/23 09:16 Dose: 81 mg Documented By: JIMBO Atorvastatin Calcium (Atorvastatin Calcium 20 Mg Tablet) 20 mg PO BEDTIME [facility] Last Admin: 09/03/23 21:09 Dose: 20 mg Documented By: DANUTA Cyclobenzaprine HCl (Cyclobenzaprine Hcl 5 Mg Tablet) 5 mg PO TID PRN PRN Reason: muscle spasm Diphenoxylate HCl/Atropine (Diphenoxylate/Atrop 2.5/0.025 Tablet) 2 tab PO QID PRN PRN Reason: Diarrhea Escitalopram Oxalate (Escitalopram Oxalate 20 Mg Tablet) 20 mg PO DAILY [facility] Last Admin: 09/04/23 09:15 Dose: 20 mg Documented By: JIMBO Fluticasone Propionate (Fluticasone Propionate Nasal 16 Gm [place]) 1 spray NOSTRIL-B DAILY [facility] Last Admin: 09/04/23 09:24 Dose: 1 spray Documented By: JIMBO Guaifenesin/Dextromethorphan (Guaifenesin Dm 200/20/10 Ml 10 Ml Syrup) 10 ml PO TID PRN PRN Reason: cough Last Admin: 09/02/23 16:51 Dose: 10 ml Documented By: EB Haloperidol Lactate (Haloperidol Lactate 5 Mg/Ml Vial) 1 mg IVPUSH ONCE PRN PRN Reason: Nausea and Vomiting Heparin Sodium (Porcine) (Heparin Sodium,Porcine 5,000 Unit/Ml Vial) 5,000 unit SUBCUT Q12H [facility] Last Admin: 09/04/23 09:14 Dose: 5,000 unit Documented By: JIMBO Hydroxyzine HCl (Hydroxyzine Hcl 50 Mg Tablet) 50 mg PO BEDTIME [facility] Last Admin: 09/03/23 21:10 Dose: 50 mg Documented By: DANUTA Loperamide HCl (Loperamide Hcl 2 Mg Capsule) 2 mg PO Q4H PRN PRN Reason: Diarrhea Last Admin: 09/03/23 03:11 Dose: 2 mg Documented By: GLENIS Lorazepam (Lorazepam 1 Mg Tablet) 1 mg PO BID PRN PRN Reason: anxiety/restlessness Last Admin: 09/03/23 09:34 Dose: 1 mg Documented By: BUTCH Losartan Potassium (Losartan Potassium 50 Mg Tablet) 50 mg PO DAILY@0900 [facility]; Protocol Last Admin: 09/04/23 09:18 Dose: 50 mg Documented By: JIMBO Magnesium Hydroxide (Milk Of Magnesia 30 Ml Oral.Susp) 30 ml PO DAILY PRN PRN Reason: Constipation Metoclopramide HCl (Metoclopramide Hcl 5 Mg Tablet) 5 mg PO TIDAC [facility] Last Admin: 09/04/23 09:16 Dose: 5 mg Documented By: JIMBO Metoprolol Succinate (Metoprolol Succinate Er 50 Mg Tab.Er.24h) 50 mg PO DAILY [facility]; Protocol Last Admin: 09/04/23 09:15 Dose: 50 mg Documented By: JIMBO Mirtazapine (Mirtazapine 30 Mg Tablet) 30 mg PO BEDTIME [facility] Last Admin: 09/03/23 21:10 Dose: 30 mg Documented By: DANUTA Nicotine (Nicotine 14 Mg Patch.Td24) 14 mg TRANSDERMA DAILY [facility] Last Admin: 09/04/23 09:17 Dose: 14 mg Documented By: JIMBO Omeprazole (Omeprazole 20 Mg Capsule.Dr) 20 mg PO DAILY@06 [facility] Last Admin: 09/04/23 05:48 Dose: 20 mg Documented By: DANUTA Ondansetron HCl (Ondansetron Hcl 4 Mg/2 Ml Vial) 4 mg IVPUSH Q8H PRN PRN Reason: Nausea and Vomiting Last Admin: 09/03/23 09:34 Dose: 4 mg Documented By: BUTCH Sodium Chloride (0.9 % Sodium Chloride Flush 3 Ml Syringe) 3 ml IVFLUSH QSHIFT [facility] Last Admin: 09/04/23 09:16 Dose: 3 ml Documented By: JIMBO Sodium Chloride (Sodium Chloride Tab 1 Gm Tablet) 2 gm PO TID [facility] Last Admin: 09/04/23 09:19 Dose: 2 gm Documented By: JIMBO Sucralfate (Sucralfate 1 Gm Tablet) 4 gm PO DAILY@1200 [facility] Last Admin: 09/03/23 12:05 Dose: 4 gm Documented By: BUTCH Tiotropium [place] (Tiotropium [place] 2.5 Mcg 1 Puff/2.5 Mcg Mist.Inhal) 2 puff INHALE RDAILY [facility] Last Admin: 09/04/23 07:32 Dose: 2 puff Documented By: YESIKA Tolterodine Tartrate (Tolterodine Tartrate [place] 4 Mg Cap.Er.24h) 4 mg PO DAILY@09 [facility] Last Admin: 09/04/23 09:16 Dose: 4 mg Documented By: JIMBO Urea (Urea 15 Gm Powder) 30 gm PO BID [facility] Last Admin: 09/04/23 09:19 Dose: 30 gm Documented By: JIMBO Vitamin D (Cholecalciferol (Vitamin D3) 25 Mcg Tablet) 50 mcg PO DAILY@09 [facility] Last Admin: 09/04/23 09:16 Dose: 50 mcg Documented By: JIMBO Labs 08/31/23 05:05 09/04/23 05:14 Labs: Laboratory Results - last 24 hr 09/03/23 09/04/23 14:00 05:14 Hold Purple Top SEE NOTE SEE NOTE Anion Gap 11 L Estim Creat Clear Calc 72.4 Estimated GFR > 60 Random Glucose 108 Calcium 9.0 Assessment and Plan (1) MDD (major depressive disorder), recurrent episode, moderate: Status: Acute (2) Abnormal CT scan, chest: Status: Acute (3) Altered mental status: Status: Acute (4) Acute hyponatremia: Status: Acute (5) Lung mass: Status: Acute Plan 62F pmh COPD, hcv, HTN, HLD, anemia, GERD, IBS, gastroparesis, anxiety, depression presented with cough, sob, found to have postobstructive pneumonia Acute hyponatremia 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 follow BMP Postobstructive pneumonia due to right hilar mass/opacity completed antibiotics course s/p bronchoscopy 08/31/23 - pathology result showing SCC get Oncology evaluation acute diarrhea negative cdif, stool pcr, legionella negative continue Lomotil Keep imodium prn COPD Continue bronchodilators Hypertension Losartan, metoprolol DVT prophylaxis-heparin subQ Full code reason for continued hospitalization: hyponatremia, diarrhea Quality Stroke Does the patient have a stroke diagnosis?: No VTE Prior VTE?: No VTE Risk Level:: Medical - moderate - high VTE Device Contraindication: Treatment Not Indicated VTE Drug Contraindication: N/A - Med Ordered
--- NOTE | 2023-09-04 11:44 | P.CNHO_ITS ---
Subjective - Subjective Chief complaint: Shortness of breath and right chest pain Patient: new to practice Consult date: 09/04/23 Primary Care Provider: Sarthak Person MD Medical Summary: Diagnosis: Small-cell lung cancer involving right lung, August 2023 HPI - Consult Narrative Reason for consult: Small-cell lung cancer Narrative: Sarah Medina is a 63 year old woman, chronic smoker with history of COPD who presented with worsening shortness of breath with right-sided chest pain and nausea on 08/24/2023. Unfortunately, CT chest revealed right upper lobe collapse with possible postobstructive pneumonia. She is followed by Dr. Padilla and was on lung cancer screening program, a low-dose CT in June 2023 was negative. Patient states that she has been experiencing worsening shortness of breath, cough for a few weeks prior to presentation. She denies loss of appetite or weight loss. No headache or dizziness. No nausea or emesis. She denies any bone or back pain. No difficulty walking of focal neurological complaints such as numbness or tingling. She is now smoking about 6 cigarettes a day. She lives alone, resides in [place]. Review of Systems - Constitutional Reports as per HPI, Reports fatigue, Reports lack of energy, Reports malaise - Cardiovascular Reports no additional cardiovascular complaints - Respiratory Reports no additional respiratory complaints - Gastrointestinal Reports no additional gastrointestinal complaints - Neurologic Denies memory loss, Denies seizure-like activity [facility] Medical History: Medical History (Last Updated 08/25/23 @ 16:33 by Chris Gross MD) Allergic rhinitis Anxiety Benign essential hypertension Bronchitis Cervical spondylosis COPD (chronic obstructive pulmonary disease) Depression Early satiety Endocarditis of mitral valve Onset Date: ~11/2017 Facet arthritis of lumbar region GERD (gastroesophageal reflux disease) History of hepatitis C IV drug user Mitral regurgitation Mitral valve prolapse Nicotine dependence, cigarettes, uncomplicated Nonrheumatic mitral (valve) insufficiency Osteopenia Onset Date: ~2011 Paresthesia of left leg Pulmonary nodule Pure hypercholesterolemia Rectal prolapse Vitamin D deficiency Family History: Family History (Last Reviewed 08/24/23 @ 19:57 by YEVGENIY Fernandez) Father Internal bleeding Mother Medical history unknown Surgical History: Surgical History (Last Reviewed 08/24/23 @ 19:57 by YEVGENIY Fernandez) History of colonoscopy Onset Date: ~2017 History of hysteroscopy Onset Date: ~2010 History of liver biopsy Onset Date: ~2009 History of partial colectomy Onset Date: ~2014 Social History: Social History (Last Reviewed 08/24/23 @ 19:57 by YEVGENIY Fernandez) Living Situation History: Household Members: None Housing: House Housing Other:: lives alone with her cat Malena Do you presently have visiting nurse or other home services: No Tobacco History: Patient Tobacco Use Status: Current everyday Tobacco Tobacco use type: Cigarette Cigarette Packs Per Day: 0.5 Years Smoked: 45 years (onset 15, 1/2-3/4ppd x 44yrs, 28pyh) e-Cigarette/Vaping Use: Never Used Second Hand Smoke Exposure: Yes Substance Use History: Substance Use Type: Marijuana Advance Directives: Advance Directives Date on File: 12/18/21 Occupation Assessmet: service: No Current occupational status: unemployed Sex/Gender Assessment: Sexual orientation: Straight/Heterosexual Gender identity: Female Home Medications and Allergies Current Medications: Current Medications Acetaminophen (Acetaminophen 325 Mg Tablet) 650 mg PO Q6H PRN PRN Reason: Pain, Mild (Pain Scale 1-3) Last Admin: 09/02/23 07:46 Dose: 650 mg Amlodipine Besylate (Amlodipine Besylate 5 Mg Tablet) 5 mg PO BEDTIME [facility]; Protocol Last Admin: 09/03/23 21:09 Dose: 5 mg Aspirin (Aspirin Enteric Coated 81 Mg Tablet.Dr) 81 mg PO DAILY [facility] Last Admin: 09/04/23 09:16 Dose: 81 mg Atorvastatin Calcium (Atorvastatin Calcium 20 Mg Tablet) 20 mg PO BEDTIME [facility] Last Admin: 09/03/23 21:09 Dose: 20 mg Cyclobenzaprine HCl (Cyclobenzaprine Hcl 5 Mg Tablet) 5 mg PO TID PRN PRN Reason: muscle spasm Diphenoxylate HCl/Atropine (Diphenoxylate/Atrop 2.5/0.025 Tablet) 2 tab PO QID PRN PRN Reason: Diarrhea Escitalopram Oxalate (Escitalopram Oxalate 20 Mg Tablet) 20 mg PO DAILY [facility] Last Admin: 09/04/23 09:15 Dose: 20 mg Fluticasone Propionate (Fluticasone Propionate Nasal 16 Gm [place]) 1 spray NOSTRIL-B DAILY [facility] Last Admin: 09/04/23 09:24 Dose: 1 spray Guaifenesin/Dextromethorphan (Guaifenesin Dm 200/20/10 Ml 10 Ml Syrup) 10 ml PO TID PRN PRN Reason: cough Last Admin: 09/02/23 16:51 Dose: 10 ml Haloperidol Lactate (Haloperidol Lactate 5 Mg/Ml Vial) 1 mg IVPUSH ONCE PRN PRN Reason: Nausea and Vomiting Heparin Sodium (Porcine) (Heparin Sodium,Porcine 5,000 Unit/Ml Vial) 5,000 unit SUBCUT Q12H [facility] Last Admin: 09/04/23 09:14 Dose: 5,000 unit Hydroxyzine HCl (Hydroxyzine Hcl 50 Mg Tablet) 50 mg PO BEDTIME [facility] Last Admin: 09/03/23 21:10 Dose: 50 mg Loperamide HCl (Loperamide Hcl 2 Mg Capsule) 2 mg PO Q4H PRN PRN Reason: Diarrhea Last Admin: 09/03/23 03:11 Dose: 2 mg Lorazepam (Lorazepam 1 Mg Tablet) 1 mg PO BID PRN PRN Reason: anxiety/restlessness Last Admin: 09/03/23 09:34 Dose: 1 mg Losartan Potassium (Losartan Potassium 50 Mg Tablet) 50 mg PO DAILY@0900 [facility]; Protocol Last Admin: 09/04/23 09:18 Dose: 50 mg Magnesium Hydroxide (Milk Of Magnesia 30 Ml Oral.Susp) 30 ml PO DAILY PRN PRN Reason: Constipation Metoclopramide HCl (Metoclopramide Hcl 5 Mg Tablet) 5 mg PO TIDAC [facility] Last Admin: 09/04/23 09:16 Dose: 5 mg Metoprolol Succinate (Metoprolol Succinate Er 50 Mg Tab.Er.24h) 50 mg PO DAILY [facility]; Protocol Last Admin: 09/04/23 09:15 Dose: 50 mg Mirtazapine (Mirtazapine 30 Mg Tablet) 30 mg PO BEDTIME [facility] Last Admin: 09/03/23 21:10 Dose: 30 mg Nicotine (Nicotine 14 Mg Patch.Td24) 14 mg TRANSDERMA DAILY [facility] Last Admin: 09/04/23 09:17 Dose: 14 mg Omeprazole (Omeprazole 20 Mg Capsule.Dr) 20 mg PO DAILY@0630 [facility] Last Admin: 09/04/23 05:48 Dose: 20 mg Ondansetron HCl (Ondansetron Hcl 4 Mg/2 Ml Vial) 4 mg IVPUSH Q8H PRN PRN Reason: Nausea and Vomiting Last Admin: 09/03/23 09:34 Dose: 4 mg Sodium Chloride (0.9 % Sodium Chloride Flush 3 Ml Syringe) 3 ml IVFLUSH QSHIFT [facility] Last Admin: 09/04/23 09:16 Dose: 3 ml Sodium Chloride (Sodium Chloride Tab 1 Gm Tablet) 2 gm PO TID [facility] Last Admin: 09/04/23 09:19 Dose: 2 gm Sucralfate (Sucralfate 1 Gm Tablet) 4 gm PO DAILY@1200 [facility] Last Admin: 09/03/23 12:05 Dose: 4 gm Tiotropium Manning (Tiotropium Manning 2.5 Mcg 1 Puff/2.5 Mcg Mist.Inhal) 2 puff INHALE RDAILY [facility] Last Admin: 09/04/23 07:32 Dose: 2 puff Tolterodine Tartrate (Tolterodine Tartrate La 4 Mg Cap.Er.24h) 4 mg PO DAILY@0900 [facility] Last Admin: 09/04/23 09:16 Dose: 4 mg Urea (Urea 15 Gm Powder) 30 gm PO BID [facility] Last Admin: 09/04/23 09:19 Dose: 30 gm Vitamin D (Cholecalciferol (Vitamin D3) 25 Mcg Tablet) 50 mcg PO DAILY@0900 [facility] Last Admin: 09/04/23 09:16 Dose: 50 mcg Home Medications ?Medication ?Instructions ?Recorded ?Confirmed ?Type alosetron 0.5 mg tablet 1 mg PO DAILY@0900 07/22/23 08/24/23 History cholecalciferol (vitamin D3) 50 50 mcg PO DAILY@0900 07/22/23 08/24/23 History mcg (2,000 unit) capsule metoclopramide HCl 5 mg tablet 5 mg PO TIDAC 07/22/23 08/24/23 History (Reglan) pantoprazole 40 mg tablet,delayed 40 mg PO DAILY@0630 07/22/23 08/24/23 History release solifenacin 10 mg tablet 10 mg PO DAILY@0907/22/23 08/24/23 History tiotropium bromide 18 mcg capsule 1 cap inhalation DAILY@0900 copd 07/22/23 08/24/23 History with inhalation device (Spiriva with HandiHaler) sucralfate 1 gram tablet (Carafate) 4 g PO DAILY@1200 07/25/23 08/24/23 History fluticasone propionate 50 1 spray intranasal DAILY 08/24/23 08/24/23 History mcg/actuation nasal spray,suspension Allergies Allergy/AdvReac Type Severity Reaction Status Date / Time No Known Allergies Allergy Unknown unknown Verified 08/24/23 11:57 [NO KNOWN ALLERGIES] Physical Exam Vital signs: Vital Signs Temp 97.9 F 09/04/23 06:54 Pulse 71 09/04/23 09:15 Resp 18 09/04/23 07:34 BP 125/65 09/04/23 09:18 Pulse Ox 92 09/04/23 06:54 O2 Del Method Room Air 09/04/23 06:54 Intake & Output 09/03/23 09/04/23 09/04/23 18:59 06:59 18:59 Intake Total 460 / 1278 818 / 1278 120 / 120 Output Total 800 / 1700 900 / 1700 Balance -340 / -422 -82 / -422 120 / 120 Urine Output (Average ml/kg/hr) 1.12 1.26 1.26 Intake: Intake, Oral Amount 460 / 1278 818 / 1278 120 / 120 Output: Output, Urine Amount 800 / 1700 900 / 1700 Other: Breakfast % Eaten 50% Lunch % Eaten 100% Dinner % Eaten 100% Number of Unmeasured Voids 4 Urine Bathroom Bathroom Urine Color Yellow Anastasiya Stool Bathroom Bathroom Stool Amount Large Moderate Stool Color Blood Tinged Stool Consistency Watery Loose Weight 59.6 kg - Constitutional Present: no acute distress, thin - Routine HEENT Exam Head: Present: normal inspection Eye: Present: EOMI, PERRL - Routine Neck Exam Present: supple. Absent: lymphadenopathy - Routine Respiratory Exam Present: CTAB. Absent: accessory muscle use, stridor, wheezes - Routine Cardiovascular Exam Cardiovascular: Present: S1, S2 - Routine Abdominal Exam Present: soft - Routine Extremities Exam Absent: pedal edema - Routine Skin Exam Present: intact - Routine Neurological Exam Present: alert, oriented X3 Hem/Onc Consult Result - Labs CBC & Chem 7: 08/31/23 05:05 09/04/23 05:14 Labs: BMP 09/04/23 05:14 Sodium 126 L Potassium 4.1 Chloride 93 L Carbon Dioxide 26 BUN 20 H Creatinine 0.62 Calcium 9.0 Assessment and Plan Patient Active problem list reviewed?: Yes (1) Small cell lung cancer Status: Acute Assessment and plan: 1. This is a 63-year-old woman diagnosed with small cell lung cancer involving right hilum in August [address]23. CT chest with contrast revealed a right suprahilar mass measuring 5.8 x 4.1 cm encasing and occluding right upper lobe bronchus with complete collapse of right upper lobe. This is a small stable left upper lobe 1 cm pulmonary nodule, enlarged mediastinal lymph nodes with 1.4 x 2.7 x 2.4 cm pretracheal lymph node. No pleural effusion or axillary adenopathy. Adrenals normal, no evidence of osseous metastatic disease. She had a CT head without contrast which was negative for metastasis. Clinical stage T3 N2, Stage IIIB LDH mildly elevated at 274, CEA 12.1 NG/ mL. She presented with severe hyponatremia with sodium of 116 millimole per L secondary to SIADH/lung cancer. She is on water restriction and has been started on sodium tablets. She did not tolerate urea powder. I discussed above diagnosis with the patient. She has at least locally advanced small cell lung cancer. She will need PET-CT upon discharge for staging. I would recommend systemic therapy with cisplatin/etoposide. Radiation therapy can be added after a couple of cycles. Further recommendations to follow. I recommended an appointment next week with me in the clinic. I thank you for this referral. - Time Spent With Patient Time Spent with Patient (in minutes): 25
[2023-09-04] MEDS: Sucralfate 1 GM TABLET 4 GM PO (11:49)
[2023-09-04 12:27] LABS: Lactate Dehydrogenase 274 U/L (122-220)
[2023-09-04] MEDS: Acetaminophen 325 MG TABLET 650 MG PO (19:32)
[2023-09-04] MEDS: hydrOXYzine HCL 50 MG TABLET PO (20:24)
[2023-09-04] MEDS: LORazepam 1 MG TABLET PO (20:24)
[2023-09-04] MEDS: Atorvastatin Calcium 20 MG TABLET PO (20:24)
[2023-09-04] MEDS: Mirtazapine 30 MG TABLET PO (20:24)
[2023-09-04] MEDS: amLODIPine Besylate 5 MG TABLET PO (20:24)
[2023-09-05] MEDS: Omeprazole 20 MG CAPSULE.DR PO (05:59)
[2023-09-05 06:18] VITALS: BP 120/72; PULSE 82; RESP 14; TEMP 36.5; O2SAT 92
[2023-09-05 06:26] LABS: Anion Gap 12 (12-20); Blood Urea Nitrogen 18 mg/dL (9-16); Calcium 9.1 mg/dL (8.4-10.2); Carbon Dioxide 23 mmol/L (22-29); Chloride 96 mmol/L (96-108); Creatinine Clr Calc Pharmacy 78.8; Estimated Glomerular Filt Rate > 60; Glucose Random 96 mg/dL (60-115); Potassium 4.4 mmol/L (3.3-5.1); Sodium 127 mmol/L (135-145)
[2023-09-05] MEDS: Metoclopramide HCl 5 MG TABLET PO ×2 (07:18→11:49)
[2023-09-05] MEDS: 0.9 % Sodium Chloride Flush 3 ML SYRINGE IVFLUSH (07:18)
[2023-09-05] MEDS: Heparin Sodium,Porcine 5,000 UNIT/ML VIAL 5000 UNIT SUBCUT (07:18)
[2023-09-05 07:41] VITALS: BP 163/87; PULSE 77; RESP 18; TEMP 36.1; O2SAT 97
[2023-09-05] MEDS: Tolterodine Tartrate LA 4 MG CAP.ER.24H PO (08:22)
[2023-09-05 08:23] VITALS: BP 163/87; PULSE 77
[2023-09-05] MEDS: Losartan Potassium 50 MG TABLET PO (08:23)
[2023-09-05] MEDS: Cholecalciferol (Vitamin D3) 25 MCG TABLET 50 MCG PO (08:23)
[2023-09-05] MEDS: Aspirin Enteric Coated 81 MG TABLET.DR PO (08:23)
[2023-09-05] MEDS: Metoprolol Succinate ER 50 MG TAB.ER.24H PO (08:23)
[2023-09-05] MEDS: Escitalopram Oxalate 20 MG TABLET PO (08:23)
[2023-09-05] MEDS: Sodium Chloride Tab 1 GM TABLET 2 GM PO (08:24)
[2023-09-05] MEDS: Nicotine 14 MG PATCH.TD24 TRANSDERMA (08:24)
[2023-09-05] MEDS: Urea 15 GM POWDER 30 GM PO (09:32)
[2023-09-05] MEDS: Fluticasone Propionate Nasal 16 GM SPRAY 1 SPRAY NOSTRIL-B (09:39)
--- NOTE | 2023-09-05 11:18 | PM.DS ---
DS: Providers Provider Date of Service: 09/05/23 Date of admission: 08/24/23 19:36 Primary care physician: Sarthak Person MD Consults: 08/24/23 19:48 Consult to Pulmonology Routine Consulting Provider: [facility] Reason for consultation: post obstructive pneumonia 08/25/23 09:37 Consult to Nephrology Routine Consulting Provider: [facility] Reason for consultation: hyponatremia 08/27/23 12:50 Consult to Psychiatry Routine Consulting Provider: [facility] Reason for consultation: patient request - severe depression 08/27/23 17:13 Consult to Prefitter Routine Comment: pt would like daily visits 09/04/23 11:40 Consult to Hematology / Oncology Routine Consulting Provider: Lilly James Reason for consultation: New small cell lung cancer with acute hyponatremia DS: Diagnosis Discharge Diagnosis (1) Small cell lung cancer: Status: Acute (2) Acute hyponatremia: Status: Acute (3) Mass of right lung: Status: Acute (4) Lung mass: Status: Acute (5) Postobstructive pneumonia: Status: Acute DS: Summary Hospital Course Hospital Course: The patient had prolonged hospital stay. for full details please return to EMR. Admission note HPI 62 yo female with PMH of bronchitis, history of IVDA, history of hepatitis-C, COPD, HTN, HLD, anemia, GERD, IBS, gastroparesis, anxiety, depression with recent admission to [facility] from 07/21-07/23 and again 07/25-07/28 due to COPD exacerbation and pneumonia discharged on Augmentin presented to the ED complaining of nausea, vomiting, diarrhea as well as shortness of breath and cough. She reports the shortness of breath and cough has been ongoing for several weeks with the diarrhea with bright red blood per rectum is new over the last several days. She also developed left lower lung pain last night. She is very tearful and anxious appearing but is able to provide history. On arrival, patient tachypneic to 24, vital signs otherwise stable. Blood pressure did appear to drop to 94/69 but 145/74 with IV fluids. She has a leukocytosis of 11.2. Renal function baseline. Again presents with hyponatremia of 128, chloride 94, CO2 20. Initial lactic acid 2.1 improved to 1.[address] chest with contrast shows right arlen suprahilar mass with occlusion of the right upper lobe bronchus and complete right upper lobe collapse. There is associated mediastinal lymphadenopathy consistent with carcinoma and bronchoscopy with biopsy is recommended. There is also 1 cm left upper lobe nodule that appears stable. She is a current half pack per day cigarette smoker but denies any alcohol use. Denies any recent illicit substance use but does have history of IV drug abuse. Reports marijuana use. In the ED has been treated with 1.7 L IV NS, Tylenol, IV Zosyn, and vancomycin. She will be admitted for further management of postobstructive pneumonia. 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 Treated with Urea and high-dose salt tablets along with fluid restriction to 1.2L as she was followed by older worker specialist dr Estrada who believed that we need to accept lower goal of high 120s as long as asymptomatic. she was walking around in halls feeling steady on her feet when her Na was 123. Sodium level was monitored and improved to 127 as highest Na level in admission. will be discharged on Urea, Salt tablets, fluid restriction with a plan to repeat BMP Thursday and follow up with PCP and dr Estrada as outpatient. # Postobstructive pneumonia due to right hilar mass that was found to be Small cell cancer Treated with IV antibiotics completed antibiotics course of 1 week with resolution of infection as blood cultures remained negative. she was able to ambulate on room air with no reported dyspnea or chest pain. s/p bronchoscopy 08/31/23 - pathology result showed small cell cancer that was evaluated by dr James from oncology who recommended PET scan and follow up as outpatient for treatment plan. # acute diarrhea likely antibiotics related. negative cdif, stool pcr, legionella negative. resolved with using Lomotil and imodium prn Discharge plan Start Nifedipine 30mg daily Continue Sodium chloride tablets 3 times daily Continue 30 gm Urea twice daily Monitor blood pressure at home and report 1 week readings to PCP repeat kidney function test next week Follow with dr Estrada from Nephrology as outpatient PET scan to be scheduled as outpatient To follow with dr James office as scheduled Time Attestation Discharge Coordination Time (in mins): 41 Quality: Safe Use of Opioids Does Pt have an Active Cancer Diagnosis on the Problem List?: Yes Opioid Measure Date for CMS Report: 08/06/23 Opioid Measure Time for CMS Report: 11:38 Quality: Stroke Does the patient have a stroke diagnosis?: No Physical Exam Vital Signs: Vital Signs: Last Vital Signs Temp 97.0 F 09/05/23 07:41 Pulse 77 09/05/23 08:23 Resp 18 09/05/23 07:41 BP 163/87 H 09/05/23 08:23 Pulse Ox 97 09/05/23 07:41 O2 Del Method Room Air 09/05/23 07:41 BMI result Body Mass Index 24.0 Const: Other: Constitutional : Awake, interactive, not in distress Neck : Normal inspection, Supple Cardiovascular : RRR, no JVP, no lower extremity edema Respiratory : fair bilateral air entry, basal crackles, no wheezes Gastrointestinal: soft, lax, Normal bowel sounds, Non tender Skin : Warm, Dry Neurological : Alert & oriented x3, No focal deficit DS: Data Data Completed and Pending Completed studies during hospitalization [Text1]: Pending at discharge 08/31/23 10:48 Surgical [PTH] Stat 08/31/23 11:16 Cytology [PTH] Stat Labs on day of discharge: Laboratory Results - last 24 hr 09/04/23 09/05/23 05:14 05:25 Hold Purple Top SEE NOTE Sodium 127 L Potassium 4.4 Chloride 96 Carbon Dioxide 23 Anion Gap 12 BUN 18 H Creatinine 0.57 Estim Creat Clear Calc 78.8 Estimated GFR > 60 Random Glucose 96 Uric Acid 2.0 L Calcium 9.1 Lactate Dehydrogenase 274 H Carcinoembryonic Ag 12.[address] scan - chest: Radiologist's impression: ITS Impressions Chest X-Ray 08/24/23 12:15 IMPRESSION: Extensive opacity in the right suprahilar region and right upper lobe. Interval worsening as compared to previous. This could be related to a mass, upper lobe collapse, consolidation. Recommend further evaluation with CT scan with contrast. Result and recommendations conveyed to YEVGENIY Jacome at 1338 hours on 08/24/[address] 08/24/23 14:29 IMPRESSION: 1. Right arlen-/suprahilar mass with occlusion of the right upper lobe bronchus and complete right upper lobe collapse. There is associated no mediastinal lymphadenopathy. Findings are consistent with carcinoma and bronchoscopy with biopsy is recommended 2. 1 cm left upper lobe pulmonary nodule. This nodule had demonstrated fairly longterm stability since at least 2020. Fleischner guidelines were followed. Head CT 08/24/23 21:38 IMPRESSION: No acute intracranial pathology. No evidence metastatic disease, though sensitivity is limited without intravenous contrast. Discharge Plan Discharge Anticipated Discharge Date/Time: 09/05/23 10:55 Patient Disposition: Home Health Service Discharge Diagnosis: Acute hyponatremia Diarrhea Referrals: Sarthak Person MD [Primary Care Provider] - 1 Week Lilly James MD [Physician] - 1 Week (lung ca) Discharge Medications: New sodium chloride 1,000 mg Tablet,Soluble 2,000 mg PO TID Qty: 90 2RF urea (bulk) 100 % Powder 30 ea PO BID Qty: 2500 2RF nifedipine 30 mg tablet extended release 30 mg PO DAILY Qty: 90 0RF Continued ibuprofen 600 mg tablet 600 mg PO Q8H PRN (Reason: pain) 30 Days Qty: 90 1RF Rx Instructions: take with food cyclobenzaprine 5 mg tablet 5 mg PO TID PRN (Reason: muscle spasm) 30 Days Qty: 90 1RF albuterol sulfate [Ventolin HFA] 90 mcg/actuation HFA aerosol inhaler 1 puff PO Q6H PRN (Reason: shortness of breath or wheezing) 30 Days Qty: 8.5 3RF simvastatin 40 mg tablet 40 mg PO BEDTIME Qty: 90 1RF hydroxyzine HCl 50 mg tablet 50 mg PO BEDTIME Qty: 90 1RF lorazepam 1 mg tablet 1 mg PO BID PRN (Reason: anxiety) 28 Days Qty: 56 0RF aspirin 81 mg tablet,delayed release (DR/EC) 81 mg PO DAILY Qty: 90 3RF escitalopram oxalate 20 mg tablet 20 mg PO DAILY 90 Days Qty: 90 1RF metoprolol succinate 50 mg tablet extended release 24 hr 50 mg PO DAILY Qty: 90 1RF losartan 25 mg tablet 25 mg PO DAILY@0900 90 Days Qty: 90 1RF oxycodone 5 mg tablet 5 mg PO .1-2 times daily PRN (Reason: pain) 10 Days Qty: 20 0RF metoclopramide HCl [Reglan] 5 mg tablet 5 mg PO TIDAC pantoprazole 40 mg tablet,delayed release (DR/EC) 40 mg PO DAILY@0630 alosetron 0.5 mg tablet 1 mg PO DAILY@0900 tiotropium bromide [Spiriva with HandiHaler] 18 mcg capsule, w/inhalation device 1 cap inhalation DAILY@0900 Rx Instructions: puncture 1 cap using device; one dose = 2 inhalations solifenacin 10 mg tablet 10 mg PO DAILY@0900 cholecalciferol (vitamin D3) 50 mcg (2,000 unit) capsule 50 mcg PO DAILY@0900 Rx Instructions: 1 capsule Orally Once a day sucralfate [Carafate] 1 gram tablet 4 g PO DAILY@1200 dextromethorphan-guaifenesin 10-100 mg/5 mL Syrup 10 ml PO TID PRN (Reason: cough) Qty: 237 0RF fluticasone propionate 50 mcg/actuation spray,suspension 1 spray intranasal DAILY mirtazapine 30 mg tablet 30 mg PO BEDTIME 90 Days Qty: 90 1RF nicotine 14 mg/24 hr patch 24 hour 1 patch transdermal Q24H MDD smoking 28 Days Qty: 28 2RF Discharge Orders: Discharge Order (Routine); Ordered 09/05/23 Ordered By: Jovanni Bergman Diet: Advance to usual diet Activity on Discharge: As tolerated Stand Alone Forms: Patient Portal Discharge page, Work/School Release Print Language: Hebrew Other Ambulatory Orders: Basic Metabolic Panel (Routine) Timeframe: 3 Days Facility: [facility] - Location: Laboratory Ordered By: Jovanni Bergman PET CT fusion skull to thigh (Routine) Timeframe: 1 Week Facility: [facility] - Location: PET Scan Ordered By: Lilly James Care Plan Goals: You were admitted to the hospital for evaluation of lung mass with evidence of pneumonia. Treated with IV antibiotics with good response. Biopsies were taken from the mass with evidence of Small cell cancer of the lung that was evaluated by dr James from Oncology who will follow with you as outpatient. You were also noted to have low sodium level as a result of the hormonal disturbancies by the cancer. improved with salt tablets and Urea supplement as you were followed by dr Estrada from Nephrology. You sodium level improved to 127 which seems to be a new baseline. Fluid restriction to 1.2L daily Start Nifedipine 30mg daily Continue Sodium chloride tablets 3 times daily Continue 30 gm Urea twice daily Monitor blood pressure at home and report 1 week readings to PCP repeat kidney function test next week Follow with dr Estrada from Nephrology as outpatient PET scan to be scheduled as outpatient To follow with dr James office as scheduled Health Concerns: Read below Plan of Treatment: Read below Assessment: Read below
--- NOTE | 2023-09-05 11:40 | MHC.CM.PN ---
PT WILL DC HOME TODAY WITH NO SERVICES VIA FAMILY TRANSPORT
[2023-09-05] MEDS: Sucralfate 1 GM TABLET 4 GM PO (11:49)
--- NOTE | 2023-09-05 13:35 | PC.NURSE ---
PEPITO Tsang offered to take patient to lobby in a wc,patient refused,ambulated
== END 2023-09-05 13:34 | disposition home or self-care (01) | DRG 180 ==
LOC: HO.ED 20:19 → HO.EDOVER 20:33 → HO.S3 22:23
PROVIDERS: Emergency Medicine; Internal Medicine; Internal Medicine Pulmonary Disease; Admitting Provider Physician Assistant; Emergency Provider Emergency Medicine; PCP Internal Medicine; Visit Provider Student in an Organized Health Care Education/Training Program
PROC: 0BJ08ZZ Inspection of Tracheobronchial Tree, Via Natural or Artificial Opening Endoscopic (ICD-10-PCS; CPT 31622; principal; 2023-08-31 10:00)
DX: C34.01 Malignant neoplasm of right main bronchus (principal); J18.9 Pneumonia, unspecified organism; E22.2 Syndrome of inappropriate secretion of antidiuretic hormone; F33.1 Major depressive disorder, recurrent, moderate; E87.6 Hypokalemia; F17.210 Nicotine dependence, cigarettes, uncomplicated; R19.7 Diarrhea, unspecified; I10 Essential (primary) hypertension; K21.9 Gastro-esophageal reflux disease without esophagitis; J43.9 Emphysema, unspecified; Z71.6 Tobacco abuse counseling; Z86.19 Personal history of other infectious and parasitic diseases; Z79.51 Long term (current) use of inhaled steroids; Z79.82 Long term (current) use of aspirin; Z79.899 Other long term (current) drug therapy
CPT/HCPCS: 36415; 70450; 71046; 71260; 80048; 80076; 80202; 80307; 82378; 82570; 82947; 83605; 83615; 83735; 83935; 84300; 84550; 85025; 85027; 87040; 87070; 87205; 87449; 87493; 87507; 87640; 87641; 87899; 88112; 88305; 88341; 88342; 93005; 94640; 99285; J0171; J1100; J1644; J2405; J2543; J2704; J3010; J3360; J3370; J3371; Q9967

== ENCOUNTER → 2023-08-24 12:00 | Outpatient (BNV) | payer MEDICARE, MEDICAID, SELFPAY | PROVIDERS: Admitting Provider Physician Assistant; Emergency Provider Emergency Medicine; PCP Internal Medicine; Visit Provider Internal Medicine Cardiovascular Disease | DX: I49.3 Ventricular premature depolarization (principal) | CPT/HCPCS: 93010 ==

== ENCOUNTER → 2023-08-24 19:36 | Outpatient (BNV) | payer MEDICARE, MEDICAID, SELFPAY | PROVIDERS: Admitting Provider Physician Assistant; Emergency Provider Emergency Medicine; PCP Internal Medicine; Visit Provider Internal Medicine | DX: C34.90 Malignant neoplasm of unspecified part of unspecified bronchus or lung (principal) | CPT/HCPCS: 99222 ==

== ENCOUNTER → 2023-08-24 19:36 | Outpatient (BNV) | payer MEDICARE, MEDICAID, SELFPAY | PROVIDERS: Admitting Provider Physician Assistant; Emergency Provider Emergency Medicine; PCP Internal Medicine; Visit Provider Internal Medicine Pulmonary Disease | DX: R93.89 Abnormal findings on diagnostic imaging of other specified body structures (principal); J43.9 Emphysema, unspecified; C34.11 Malignant neoplasm of upper lobe, right bronchus or lung | CPT/HCPCS: 31625; 99222; 99232 ==

== ENCOUNTER → 2023-08-24 19:36 | Outpatient (BNV) | payer MEDICARE, MEDICAID, SELFPAY | PROVIDERS: Admitting Provider Physician Assistant; Emergency Provider Emergency Medicine; PCP Internal Medicine; Visit Provider Registered Nurse | DX: F33.1 Major depressive disorder, recurrent, moderate (principal) | CPT/HCPCS: 99222 ==

== ENCOUNTER → 2023-08-24 19:36 | Outpatient (BNV) | payer MEDICARE, MEDICAID, SELFPAY | PROVIDERS: Admitting Provider Physician Assistant; Emergency Provider Emergency Medicine; PCP Internal Medicine; Visit Provider Physician Assistant | DX: C34.90 Malignant neoplasm of unspecified part of unspecified bronchus or lung (principal); E87.1 Hypo-osmolality and hyponatremia; R91.8 Other nonspecific abnormal finding of lung field; J18.9 Pneumonia, unspecified organism | CPT/HCPCS: 99223; 99232; 99239 ==

== ENCOUNTER → 2023-08-24 19:36 | Outpatient (BNV) | payer MEDICARE, MEDICAID, SELFPAY | PROVIDERS: Admitting Provider Physician Assistant; Emergency Provider Emergency Medicine; PCP Internal Medicine; Visit Provider Internal Medicine Nephrology | DX: E22.2 Syndrome of inappropriate secretion of antidiuretic hormone (principal) | CPT/HCPCS: 99223; 99231; 99232 ==

== ENCOUNTER 2023-09-08 14:19 | Outpatient (REF) | payer MEDICARE, MEDICAID, SELFPAY ==
[2023-09-08 14:32] LABS: MANUAL DIFF FLAG NO
[2023-09-08 14:48] LABS: Basophils Absolute Auto 0.1 X10*3/uL (0.0-0.2); Basophils Percent Auto 1.1 % (0-2); Eosinophils Absolute Auto 0.2 X10*3/uL (0.0-0.4); Eosinophils Percent Auto 2.3 % (0-4); Hematocrit 31.4 % (37.0-47.0); Hemoglobin 10.2 g/dl (12.0-16.0); Imm Gran Abs Auto 0.06 X10*3/uL (0.00-0.03); Imm Gran Pct Auto 0.9 % (0.0-0.4); Lymphocytes Absolute Auto 2.1 X10*3/uL (1.2-4.9); Lymphocytes Percent Auto 31.8 % (20-40); Mean Corpuscular HGB Conc 32.5 g/dl (31.0-35.0); Mean Corpuscular Hemoglobin 27.9 pg (27.0-33.0); Mean Corpuscular Volume 85.8 fL (80.0-98.0); Mean Platelet Volume 8.3 fL (9.4-12.3); Monocytes Absolute Auto 0.8 X10*3/uL (0.1-1.2); Monocytes Percent Auto 12.4 % (2-11); Neutrophils Absolute Auto 3.3 x10*3/uL (2.0-8.3); Neutrophils Percent Auto 51.5 % (45-73); Platelet Count 228 X10*3/uL (160-400); Red Blood Count 3.66 X10*6/uL (4.20-5.50); Red Cell Distribution Width 15.6 % (11.0-16.0); White Blood Count 6.5 X10*3/uL (4.8-10.8)
[2023-09-08 15:36] LABS: Anion Gap 12 (12-20); Blood Urea Nitrogen 11 mg/dL (9-16); Calcium 8.8 mg/dL (8.4-10.2); Carbon Dioxide 26 mmol/L (22-29); Chloride 105 mmol/L (96-108); Estimated Glomerular Filt Rate > 60; Glucose Random 92 mg/dL (60-115); Potassium 3.9 mmol/L (3.3-5.1); Sodium 139 mmol/L (135-145)
[2023-09-08 15:59] LABS: TSH reflex Free T4 1.44 uIU/mL (0.32-4.0); Vitamin D 25-OH Total 26.7 ng/mL (>30)
== END 2023-09-08 14:20 | disposition home or self-care (01) ==
LOC: HO.LAB 14:19
PROVIDERS: Student in an Organized Health Care Education/Training Program; PCP Internal Medicine; Visit Provider Internal Medicine
DX: Z00.00 Encounter for general adult medical examination without abnormal findings (principal); E87.1 Hypo-osmolality and hyponatremia; D64.9 Anemia, unspecified; E55.9 Vitamin D deficiency, unspecified; E78.00 Pure hypercholesterolemia, unspecified
CPT/HCPCS: 36415; 80048; 82306; 84443; 85025

== ENCOUNTER → 2023-09-09 14:40 | Outpatient (BNV) | payer MEDICARE, OTHER, MEDICAID, SELFPAY | PROVIDERS: PCP Internal Medicine; Visit Provider Internal Medicine | DX: C34.90 Malignant neoplasm of unspecified part of unspecified bronchus or lung (principal) | CPT/HCPCS: 99214; 99215; G2211 ==

== ENCOUNTER 2023-09-10 09:37 | Outpatient (AMB) | payer MEDICARE, MEDICAID, SELFPAY ==
--- NOTE | 2023-09-10 09:37 | HO.NEPHOV ---
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 Was on 2 gm TID; Decreased to 1 gm TID on 09/09/23 Recent Na 139 PFSH Medical History (Updated 09/10/23 @ 08:51 by Rossana Muir PA-C) Small cell lung cancer (~08/2023) Benign essential hypertension Pure hypercholesterolemia Mitral valve prolapse Nonrheumatic mitral (valve) insufficiency Mitral regurgitation Endocarditis of mitral valve (~11/2017) IV drug user History of hepatitis C COPD (chronic obstructive pulmonary disease) Pulmonary nodule Bronchitis Nicotine dependence, cigarettes, uncomplicated Allergic rhinitis Rectal prolapse GERD (gastroesophageal reflux disease) Osteopenia (~2011) Early satiety Paresthesia of left leg Facet arthritis of lumbar region Cervical spondylosis Vitamin D deficiency MDD (major depressive disorder), recurrent episode, moderate Anxiety Surgical History History of bronchoscopy (~2023) History of liver biopsy (~2009) History of partial colectomy (~2014) History of hysteroscopy (~2010) History of colonoscopy (~2017) Family History Father Internal bleeding Mother Medical history unknown Social History Household Members: None Housing: House Housing Other:: lives alone with her cat Malena Do you presently have visiting nurse or other home services: No Alcohol intake: former Patient Tobacco Use Status: Current everyday Tobacco user Tobacco use type: Cigarette Cigarette Packs Per Day: 0.5 Years Smoked: 45 years (onset 15, 1/2-3/4ppd x 44yrs, 28pyh) e-Cigarette/Vaping Use: Never Used Second Hand Smoke Exposure: Yes Substance Use Type: Marijuana Advance Directives Date on File: 12/18/21 service: No Current occupational status: unemployed Sexual orientation: Straight/Heterosexual Gender identity: Female Cognitive needs: No Hearing needs: No Vision needs: Yes Female Reproductive History Menstrual Age of Menarche: 14 Review of Systems Const Denies fever(s) and Denies weight loss Card Denies chest pain Resp Denies cough and Denies hemoptysis GI Denies abdominal pain, Denies diarrhea and Denies nausea Musc Denies back pain Neuro Denies focal weakness Physical Exam Vital Signs: Last Vital Signs Pulse 97 09/10/23 09:38 BP 86/60 L 09/10/23 09:38 Pulse Ox 93 09/10/23 09:38 Oxygen Delivery Method Room Air 09/10/23 09:38 BMI result Body Mass Index 23.8 Results Reviewed Nephrology Results: Hgb 10.2 g/dl (12.0-16.0) L 09/08/23 WBC 6.5 X10*3/uL (4.8-10.8) 09/08/23 Plt Count 228 X10*3/uL (160-400) 09/08/23 Sodium 139 mmol/L (135-145) 09/08/23 Potassium 3.9 mmol/L (3.3-5.1) 09/08/23 Chloride 105 mmol/L (96-108) 09/08/23 Carbon Dioxide 26 mmol/L (22-29) 09/08/23 BUN 11 mg/dL (9-16) 09/08/23 Creatinine 0.63 mg/dL (0.5-1.4) 09/08/23 Calcium 8.8 mg/dL (8.4-10.2) 09/08/23 Urine Creatinine 40.05 mg/dL 08/24/23 Assessment & Plan Assessment & Plan (1) Small cell lung cancer: Onset Date: ~08/2023 Comment: (Right Upper Lobe - Clinical stage T3 N2, Stage IIIB - Dx 08/2023) Code(s): C34.90 - Malignant neoplasm of unspecified part of unspecified bronchus or lung Category: Medical (2) Acute hyponatremia: Code(s): E87.1 - Hypo-osmolality and hyponatremia Category: Medical Plan 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
[2023-09-10 09:38] VITALS: BP 86/60; PULSE 97; O2SAT 93; BMI 23.8
== END 2023-09-10 10:02 | disposition home or self-care (01) ==
PROVIDERS: PCP Internal Medicine; Visit Provider Internal Medicine Hypertension Specialist
DX: C34.90 Malignant neoplasm of unspecified part of unspecified bronchus or lung (principal); E87.1 Hypo-osmolality and hyponatremia
CPT/HCPCS: 99214

== ENCOUNTER 2023-09-10 14:24 | Outpatient (REF) | payer MEDICARE, MEDICAID, SELFPAY ==
--- NOTE | ~2023-09-10 | MR_ITS ---
EXAMINATION: MR BRAIN WITHOUT AND WITH CONTRAST CLINICAL INFORMATION: Restaging lung carcinoma COMPARISON: MRI brain on 06/07/2008, CT scan of brain on 08/24/2023 TECHNIQUE: Multiplanar, multisequence MRI of the brain was obtained before and after the intravenous administration of 6 mL Gadavist. FINDINGS: Ventricles, sulci and cisterns are normal for the patient's age. Focal T2 hyperintense nonenhancing lesions are seen in bilateral frontal and parietal deep white matters. Patchy T2 hyperintense nonenhancing lesions are seen in midline and bilateral posterior celso. No focal cerebellar lesions with abnormal signal can be seen. Diffusion weighted images show no abnormal regional decrease in diffusion. Post contrast images show no enhancing cerebral, brainstem or cerebellar lesions. No abnormal meningeal enhancement is seen. The pituitary gland is normal. Optic chiasm is not displaced. Cerebellar tonsils position is normal. MR/MR head/brain wo/w con IMPRESSION: 1. No evidence of intracranial metastatic disease. 2. Interval increase in number of T2 hyperintense nonenhancing lesions in bilateral frontal and parietal deep white matter and appearance of new lesions in midline and bilateral posterior celso, could represent progression of ischemic white matter lesions due to microangiopathy. 3. Unchanged no evidence of acute cerebral infarction.
[2023-09-10] MEDS: gadobutroL 7.5 ML VIAL IVPUSH (15:53)
== END 2023-09-10 14:25 | disposition home or self-care (01) ==
LOC: HO.MRI 14:24
PROVIDERS: PCP Internal Medicine; Visit Provider Internal Medicine
DX: C34.90 Malignant neoplasm of unspecified part of unspecified bronchus or lung (principal); E87.1 Hypo-osmolality and hyponatremia
CPT/HCPCS: 70553; 99212; A9585

== ENCOUNTER 2023-09-15 09:58 | Outpatient (REF) | payer MEDICARE, MEDICAID, SELFPAY ==
--- NOTE | ~2023-09-15 | XR_ITS ---
EXAMINATION: XR CHEST CLINICAL INFORMATION: Nonspecific abnormal finding of lung field, one month follow-up of right perihilar opacity. COMPARISON: CT chest of 08/24/2023 and radiograph of 08/24/2023. TECHNIQUE: 2 views of the chest were obtained. FINDINGS: Similar cardiomediastinal contour were visualized. Right upper mediastinal and hilar region again obscured by persistent upper lobe opacity with extensive right suprahilar component and mass, better characterized on CT scan of 08/24/2023. There is no gross pneumothorax. Heart size is normal. No significant pleural effusion. XR/XR chest 2V IMPRESSION: Right upper mediastinal and hilar region again obscured by persistent upper lobe opacity with extensive right suprahilar component and mass, better characterized on CT scan of 08/24/2023. CT scan of the chest recommended for further evaluation.
[2023-09-15 10:16] LABS: MANUAL DIFF FLAG NO
[2023-09-15 11:08] LABS: Appearance Urine Clear; Color Urine Yellow; Glucose Urine UA Negative (Negative); Leukocyte Esterase Urine Negative (Negative); Nitrite Urine Negative (Negative); PH 5.5 (5.0-9.0); Urine Blood Negative (Negative); Urine Ketones Negative (Negative); Urine Protein Negative (Neg-Trace)
[2023-09-15 11:09] LABS: Basophils Absolute Auto 0.1 X10*3/uL (0.0-0.2); Eosinophils Absolute Auto 0.1 X10*3/uL (0.0-0.4); Eosinophils Percent Auto 1.8 % (0-4); Hematocrit 36.1 % (37.0-47.0); Hemoglobin 11.6 g/dl (12.0-16.0); Imm Gran Abs Auto 0.03 X10*3/uL (0.00-0.03); Imm Gran Pct Auto 0.6 % (0.0-0.4); Lymphocytes Absolute Auto 1.3 X10*3/uL (1.2-4.9); Lymphocytes Percent Auto 26.3 % (20-40); Mean Corpuscular HGB Conc 32.1 g/dl (31.0-35.0); Mean Corpuscular Hemoglobin 27.4 pg (27.0-33.0); Mean Corpuscular Volume 85.3 fL (80.0-98.0); Mean Platelet Volume 8.8 fL (9.4-12.3); Monocytes Absolute Auto 0.5 X10*3/uL (0.1-1.2); Monocytes Percent Auto 10.1 % (2-11); Neutrophils Percent Auto 60.2 % (45-73); Platelet Count 228 X10*3/uL (160-400); Red Blood Count 4.23 X10*6/uL (4.20-5.50); Red Cell Distribution Width 15.5 % (11.0-16.0); White Blood Count 5.1 X10*3/uL (4.8-10.8)
[2023-09-15 11:59] LABS: TSH reflex Free T4 1.44 uIU/mL (0.32-4.0)
[2023-09-15 12:31] LABS: Alanine Aminotransferase 7 U/L (0-31); Alkaline Phosphatase 53 U/L (39-117); Anion Gap 14 (12-20); Aspartate Amino Transferase 16 U/L (5-31); Bilirubin Total 0.3 mg/dL (0.0-1.0); Blood Urea Nitrogen 19 mg/dL (9-16); Calcium 9.1 mg/dL (8.4-10.2); Carbon Dioxide 20 mmol/L (22-29); Chloride 108 mmol/L (96-108); Estimated Glomerular Filt Rate > 60; Glucose Fasting 155 mg/dL (60-99); Glucose Random 153 mg/dL (60-115); Potassium 4.4 mmol/L (3.3-5.1); Sodium 138 mmol/L (135-145); Total Protein 6.9 g/dL (6.5-8.0)
== END 2023-09-15 09:59 | disposition home or self-care (01) ==
LOC: HO.XRAY 09:58
PROVIDERS: Absent Provider Internal Medicine; PCP Internal Medicine; Visit Provider Internal Medicine Hypertension Specialist
DX: Z00.00 Encounter for general adult medical examination without abnormal findings (principal); E87.1 Hypo-osmolality and hyponatremia; R30.0 Dysuria; I10 Essential (primary) hypertension; E78.00 Pure hypercholesterolemia, unspecified; R91.8 Other nonspecific abnormal finding of lung field
CPT/HCPCS: 36415; 71046; 80048; 80053; 81003; 84443; 85025

== ENCOUNTER 2023-09-17 10:05 | Outpatient (AMB) | payer MEDICARE, MEDICAID, SELFPAY ==
[2023-09-17 10:19] VITALS: BP 100/72; PULSE 85; O2SAT 95; BMI 23.3
--- NOTE | 2023-09-17 10:19 | MHC.OFFVIS ---
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: No Allergies No Known Allergies [NO KNOWN ALLERGIES] Allergy (Unknown, Verified 09/17/23 12:46) unknown Medication List - Last Reconciled 09/17/23 by Zulma Padilla MD albuterol sulfate 90 mcg/actuation (Ventolin HFA) 1 puff PO Q6H PRN 30 days alosetron 1 mg PO DAILY@0900 aspirin 81 mg PO DAILY cholecalciferol (vitamin D3) 50 mcg PO DAILY@0900 cyclobenzaprine 5 mg PO TID PRN 30 days dextromethorphan-guaifenesin 10-100 mg/5 mL 10 mL PO TID PRN escitalopram oxalate 20 mg PO DAILY 90 days fluticasone propionate 50 mcg/actuation 1 spray intranasal DAILY 30 days hydroxyzine HCl 50 mg PO BEDTIME ibuprofen 600 mg PO Q8H PRN 30 days lorazepam 1 mg PO BID PRN 28 days losartan 25 mg PO DAILY@0900 90 days metoclopramide HCl 5 mg PO TID metoprolol succinate ER 50 mg PO DAILY mirtazapine 30 mg PO BEDTIME 90 days nicotine 1 patch transdermal Q24H 28 days MDD smoking oxycodone 5 mg PO .1-2 times daily PRN 10 days pantoprazole 40 mg PO DAILY@0630 sodium chloride 2,000 mg (2 x 1,000 mg) PO TID solifenacin 10 mg PO DAILY@0900 sucralfate (Carafate) 4 grams PO DAILY@1200 tiotropium bromide (Spiriva with HandiHaler) 1 cap inhalation DAILY@0900 Do you need a note to return to daycare/school/sports/work: No HPI HPI COPD: Details: THIS 63 YEARS OLD FEMALE WITH LONGSTANDING HISTORY OF SMOKING, AND CHRONIC OBSTRUCTIVE PULMONARY DISEASE. HAS BEEN RECENTLY ADMITTED TO [facility] A FEW TIMES WITH NONSPECIFIC UPPER RESPIRATORY INFECTION SYMPTOMS. THIS MOST RECENT ADMISSION ON 08/24/23 WAS AGAIN WITH ONGOING COUGH AND SHORTNESS OF BREATH. A CHEST X-RAY FOLLOWED BY CT SCAN OF THE CHEST WAS GROSSLY ABNORMAL WITH POST OBSTRUCTIVE PNEUMONIA OF THE RIGHT UPPER LOBE. THIS WAS IN ADDITION TO A 9 MM NODULE BEING MONITORED IN THE LEFT UPPER LOBE. PATIENT WAS TREATED FOR ACUTE PNEUMONIA, AND ALSO HAD BRONCHOSCOPY WITH BRONCHIAL WASHING AND BIOPSY BY DR. HAYES, THE BIOPSY WAS POSITIVE FOR SMALL CELL CARCINOMA. LUCKILY NO OTHER DISTANT METS WERE NOTED. PATIENT HAS ALREADY SEEN ONCOLOGIST, DR. GUERRERO, HAS A PORT INSTALLED AND WOULD BE STARTED ON CHEMOTHERAPY IN THE NEAR FUTURE. SHE COMES TODAY, FOR PULMONARY FOLLOW-UP. NEEDLESS TO SAY SHE IS EXTREMELY SAD SOMEWHAT STRESSED OUT, ,WEEPY AND LOOKING FOR SOME MEMORIAL AND PHYSICAL SUPPORT. FAR BREATHING STATUS IS CONCERNED THAT SEEMS TO BE FAIRLY STABLE AT THIS TIME SHE DOES NOT HAVE ANY FEVER CHILLS, ,OR ON DUE SHORTNESS OF BREATH SHE HAS INTERMITTENT COUGH WHICH. IS MOSTLY NONPRODUCTIVE [facility] Medical History (Updated 09/17/23 @ 12:59 by Zulma Padilla MD) COPD (chronic obstructive pulmonary disease) Small cell lung cancer (~08/2023) MDD (major depressive disorder), recurrent episode, moderate Abnormal CT scan, chest Mass of right lung Lung mass Bronchitis Rectal prolapse Nicotine dependence, cigarettes, uncomplicated Nonrheumatic mitral (valve) insufficiency Pulmonary nodule History of hepatitis C Osteopenia (~2011) IV drug user Endocarditis of mitral valve (~11/2017) Mitral valve prolapse Mitral regurgitation Early satiety Paresthesia of left leg Allergic rhinitis Facet arthritis of lumbar region Cervical spondylosis Vitamin D deficiency Pure hypercholesterolemia Benign essential hypertension GERD (gastroesophageal reflux disease) Anxiety Surgical History History of bronchoscopy (~2023) History of liver biopsy (~2009) History of partial colectomy (~2014) History of hysteroscopy (~2010) History of colonoscopy (~2017) Family History Father Internal bleeding Mother Medical history unknown Social History Household Members: None Housing: House Housing Other:: lives alone with her cat Malena Do you presently have visiting nurse or other home services: No Alcohol intake: former Patient Tobacco Use Status: Current everyday Tobacco user Tobacco use type: Cigarette Cigarette Packs Per Day: 0.5 Years Smoked: 45 years (onset 15, 1/2-3/4ppd x 44yrs, 28pyh) e-Cigarette/Vaping Use: Never Used Second Hand Smoke Exposure: Yes Substance Use Type: Marijuana Advance Directives Date on File: 12/18/21 service: No Current occupational status: unemployed Sexual orientation: Straight/Heterosexual Gender identity: Female Cognitive needs: No Hearing needs: No Vision needs: Yes Female Reproductive History Menstrual Age of Menarche: 14 Review of Systems Const All systems reviewed & are unremarkable except as noted in HPI and below Eyes Reports no additional complaints ENT Reports nasal congestion (Off and on due to allergic rhinitis) Card Denies chest pain at rest, Denies irregular heart rhythm and Denies leg edema Resp Reports as per HPI and Reports cough GI Reports heartburn (Controlled with med) Reports no additional complaints Musc Reports no additional complaints Skin/Breast Reports system reviewed and no additional complaints, except as documented Neuro Reports no additional complaints Psych Reports anxiety and Reports depression (Controlled with med) Endo Reports no additional complaints Jose L/Lymph Reports no additional complaints Physical Exam Vital Signs: Last Vital Signs Pulse 85 09/17/23 10:19 BP 100/72 09/17/23 10:19 Pulse Ox 95 09/17/23 10:19 Oxygen Delivery Method Room Air 09/17/23 10:19 BMI result Body Mass Index 23.3 Const General: comfortable, no acute distress, alert and awake Orientation/consciousness: patient oriented x3 HEENT Head: Yes normal to inspection General nose exam: No nasal polyps present, No nasal discharge present and Other nasal findings present (There is is small ulcerated lesion on the right side of the nasal septum,) Face and sinus: Yes sinuses nontender Mouth: oropharynx normal Throat: Yes posterior oropharynx normal Eyes General: appearance normal, both eyes and all related structures Neck Neck: Yes normal visual inspection, Yes no lymphadenopathy, Yes trachea midline and Yes no JVD Thyroid: Thyroid normal Chest Chest palpation & inspection: normal inspection of the chest, normal palpation of entire chest wall and no tenderness Resp Other: Percussion note hyper-resonant, breath sounds are distant with prolonged expiratory phase. There are no audible wheezes or rhonchi heard today. She has good breath sounds over the right upper lobe as well. Cardio Palpation: normal PMI Rate: regular rate Rhythm: regular rhythm Heart sounds: no gallops and no murmurs GI Palpation (GI): Soft to palpation, nontender, No hepatosplenomegaly present and no masses Auscultation: normal bowel sounds Back/Spine/Pelvis Thoracic/Lumbar Spine: thoracic and lumbar spine normal to inspection Skin General skin exam: no rashes or lesions noted Neuro General: patient oriented x3 and no focal motor deficits Cranial nerves: Yes CN's II-XII intact bilaterally Extrem General: Yes normal to inspection, Yes no clubbing, cyanosis or edema and Yes no calf tenderness Psych Speech and movement: Normal speech and movement present Affect: Sad affect present (With depressed mood) Results Reviewed Results Reviewed: Hospital course and also results of biopsy of right hilar mass reviewed. SMALL CELL CARCINOMA Assessment & Plan Assessment & Plan (1) Nicotine dependence, cigarettes, uncomplicated: Comment: (current smoker - onset 15, 1/2-3/4ppd x 46yrs, 28pyh) HAS NOT SMOKED SINCE THE DISCHARGE FROM THE HOSPITAL. Code(s): F17.210 - Nicotine dependence, cigarettes, uncomplicated Category: Medical Plan: HAD A GOOD DISCUSSION WITH HER AND IMPRESSED ON HER THAT SHE SHOULD NOT GO BACK TO SMOKING . (2) Pulmonary nodule: Comment: (9mm MARIA ELENA nodule remains stable on 2013 LDCT) Also has right suprahilar prominence. The 9 mm nodule in the left upper lobe has been stable. Recent admission and a chest x-ray as well as CT scan of the chest showed a right suprahilar mass with postobstructive pneumonia. Workup with bronchoscopy, bronchial washing and biopsy, consistent with small cell carcinoma. Code(s): R91.1 - Solitary pulmonary nodule Category: Medical Plan: Explained to the patient, She is already seeing the oncologist and will be started on chemotherapy. I reassured her that this kind of the carcinoma response to chemotherapy much better, she feels reassured. (3) Small cell lung cancer: Comment: As noted above her recent bronchoscopic exam and bronchial biopsy are positive small cell carcinoma. Code(s): C34.90 - Malignant neoplasm of unspecified part of unspecified bronchus or lung Category: Medical Plan: Patient to be started on chemotherapy , , soon She is being followed by Dr. James . (4) COPD (chronic obstructive pulmonary disease): Comment: Patient does have chronic obstructive pulmonary disease related to her lifelong smoking. She is doing fairly well with her current regimen. Code(s): J44.9 - Chronic obstructive pulmonary disease, unspecified Category: Medical Qualifiers: COPD type: emphysema Emphysema type: unspecified Qualified Code(s): J43.9 - Emphysema, unspecified Plan: CONTINUE SPIRIVA HANDIHALER 1 INHALATION DAILY AND ALBUTEROL HFA 2 PUFFS Q 4-6 HOURS P.R.N.. Coding Level of Care Code Est Pt Level 3 (56695) Diagnoses Nicotine dependence, cigarettes, uncomplicated F17.210 Pulmonary nodule R91.1 Small cell lung cancer C34.90 Pulmonary emphysema, unspecified emphysema type J43.9 COPD type: emphysema Emphysema type: unspecified
== END 2023-09-17 10:52 | disposition home or self-care (01) ==
PROVIDERS: PCP Internal Medicine; Visit Provider Internal Medicine
DX: F17.210 Nicotine dependence, cigarettes, uncomplicated (principal); R91.1 Solitary pulmonary nodule; C34.90 Malignant neoplasm of unspecified part of unspecified bronchus or lung; J43.9 Emphysema, unspecified
CPT/HCPCS: 99213

== ENCOUNTER → 2023-09-17 10:05 | Outpatient (BNVA) | payer MEDICARE, MEDICAID, SELFPAY | PROVIDERS: PCP Internal Medicine; Visit Provider Internal Medicine | DX: R91.1 Solitary pulmonary nodule (principal); J43.9 Emphysema, unspecified; C34.90 Malignant neoplasm of unspecified part of unspecified bronchus or lung; F17.210 Nicotine dependence, cigarettes, uncomplicated | CPT/HCPCS: 99212 ==

== ENCOUNTER 2023-09-18 07:59 | Day surgery (SDC) | payer MEDICARE, MEDICAID, SELFPAY ==
--- NOTE | ~2023-09-18 | IR_ITS ---
CLINICAL HISTORY: Right lung cancer. The patient presents to interventional radiology for placement of a port for chemotherapy. PROCEDURES: 1. Real-time ultrasound-guided access into the left internal jugular vein after documentation of selected vessel patency, and permanent image storing in the patient records. 2. Placement of a 6.6 [place] single-lumen power port. CLINICIAN: Mitul Taylor PA-C MEDICATIONS: - Versed 1.5 mg, Fentanyl 75 mcg, Lidocaine 1% 10 mL SQ -Antibiotics: Ancef 2g -For additional details, please see nursing flowsheet. Complications: None. Estimated blood loss: <5 ml Specimens: None. Contrast: None. Fluoroscopy time: 0.3 min MODERATE SEDATION TIME: 36 min PROCEDURE NOTE: The procedure, risks, benefits, and alternatives were carefully explained to the patient and written informed consent was obtained. The patient was placed supine on the fluoroscopy table. A timeout was performed. The left neck and chest was prepped and draped in usual sterile fashion. Maximum barrier technique was utilized. Local anesthesia was administered to the access site with 1% lidocaine. Under ultrasound guidance, the left internal jugular vein was accessed with a 5 fr micropuncture set. A 0.035 in wire was advanced into the IVC. A peel-away sheath was advanced over the wire and into the SVC, and the wire was removed. Next, subcutaneous lidocaine was administered to the chest. The port pocket was created after the skin incision, utilizing blunt dissection. Using blunt dissection, a subcutaneous tunnel was created that connects from the port pocket to the venotomy site. Through the peel-away sheath, the 6.6 [place] port catheter was placed. The catheter position was verified with fluoroscopy to be at the superior vena cava/right atrial junction. The port was connected to the catheter and was placed in the pocket. The venotomy site was closed with a 3-0 Vicryl subcutaneous suture. The port incision site was closed with interrupted 3-0 Vicryl subcutaneous sutures and surgical glue. Prior to closing the skin, 1 g of Ancef solution was placed in the pocket. The port was tested, flushed, and packed with heparin per routine protocol. The patient tolerated the procedure well. The patient was stable after the procedure and was transferred to the PACU. The procedure was performed under moderate sedation and with a dedicated nurse with continuous monitoring of vital signs. A permanent image of the ultrasound the neck and fluoroscopic image of the chest was saved and sent to PACS. FINDINGS: 1. Patent left internal jugular vein 2. Placement of a 6.6 [place] single lumen power port. 3. Port flushes and aspirates very well with a 10 mL syringe. No pneumothorax. IR/IR cvc insert tunnel w prt/non destructive testing supervisor IMPRESSION: Placement of a 6.6 [place] single-lumen power port. PLAN: - The patient will be discharged home when stable by sedation protocol. - Port may be used immediately. This procedure was performed by Mitul Taylor PA-C, and directly supervised by Dr. Pandya
[2023-09-18 08:38] LABS: INTERNATIONAL NORM RATIO 0.9 (0.9-1.1); Prothrombin Time 11.5 SEC (11.1-13.3)
[2023-09-18 08:40] LABS: Partial Thromboplastin Time 29.7 SEC (26.0-36.8)
--- NOTE | 2023-09-18 09:15 | MHC.SHP ---
Pre-Procedural Eval Section A - 24 Hr Update-Section A only Date of Service: 09/18/23 Section B - Complete if H&P > 30 days Chief Complaint: MALIGNANT NEOPLASM, LUNG Details of Present Illness: 63 y/o female with locally advanced right lung cancer and poor iv access. Relevant Family History (Specify if Yes): No Relevant Social History: Other (specify) (prior drug use) Present Medications: see Short Stay Collaborative assessment Medical History: Significant History History of Previous Operations: No relevant previous surgery Allergies: Allergies Allergy/AdvReac Type Severity Reaction Status Date / Time No Known Allergies Allergy Unknown unknown Verified 09/17/23 12:46 [NO KNOWN ALLERGIES] Review of Systems Sugical H&P ROS: Negative: Cardiovascular and Integumentary and Yes, Specify: Respiratory (cough) Exam Surgical H&P Exam: Normal: Heart, Normal: Skin and Normal: Neurological, Not Evaluated: HEENT and Significant Findings: Lungs (minimal RUL sounds, some left rhonchi) Plan Left Port for chemotherapy/acess Time Spent With Patient Time: Total time managing care of this patient today ____ minutes.
[2023-09-18 11:15] VITALS: BP 124/71; PULSE 69; RESP 16; TEMP 36.6; O2SAT 95
[2023-09-18 11:30] VITALS: BP 131/67; PULSE 71; RESP 16; TEMP 36.6; O2SAT 94
== END 2023-09-18 12:00 | disposition home or self-care (01) ==
PROVIDERS: Physician Assistant Surgical; Student in an Organized Health Care Education/Training Program; PCP Internal Medicine; Visit Provider Internal Medicine
DX: C34.11 Malignant neoplasm of upper lobe, right bronchus or lung (principal); I10 Essential (primary) hypertension; J44.9 Chronic obstructive pulmonary disease, unspecified; F17.210 Nicotine dependence, cigarettes, uncomplicated
CPT/HCPCS: 36415; 36561; 85610; 85730; A4364; C1769; C1788; J0690; J1642; J1644; J2250; J2310; J3010

== ENCOUNTER → 2023-09-18 09:20 | Outpatient (BNV) | payer MEDICARE, MEDICAID, SELFPAY | PROVIDERS: PCP Internal Medicine; Visit Provider Physician Assistant Surgical | DX: C34.90 Malignant neoplasm of unspecified part of unspecified bronchus or lung (principal) | CPT/HCPCS: 36561; 76937; 77001; 99152 ==

== ENCOUNTER → 2023-09-28 08:27 | Outpatient (BNV) | payer MEDICARE, MEDICAID, SELFPAY | PROVIDERS: Admitting Provider Physician Assistant; Emergency Provider Emergency Medicine; PCP Internal Medicine; Visit Provider Internal Medicine | DX: C34.90 Malignant neoplasm of unspecified part of unspecified bronchus or lung (principal) | CPT/HCPCS: 99222; 99231; 99232 ==

== ENCOUNTER 2023-09-28 09:24 | Inpatient (IN) | payer MEDICARE, MEDICAID, SELFPAY ==
[2023-09-28] VITALS (9 sets, daily range): BP systolic 126–164; BP diastolic 57–108; PULSE 62–108; RESP 16–26; TEMP 36.1–36.6; O2SAT 93–98; BMI 24.0
--- NOTE | ~2023-09-28 | XR_ITS ---
EXAMINATION: XR CHEST CLINICAL INFORMATION: Dyspnea COMPARISON: Chest radiograph 09/15/2023 TECHNIQUE: Frontal view of the chest was obtained. FINDINGS: Since the prior study a left chest wall jugular port has been placed with its tip at the SVC/RA junction in good position. At time of the prior study a right upper lobe mass was present along with partial right upper lobe collapse/consolidation. Although considerable abnormality persists, there may be mild improvement when compared to the recent study, possibly secondary to therapy. Heart size is normal. No pleural effusions. The left lung is clear. XR/XR chest 1V IMPRESSION: Right upper lobe mass with partial right upper lobe collapse/consolidation. There may be mild improvement when compared to the recent study.
--- NOTE | ~2023-09-28 | CT_ITS ---
EXAMINATION: CT ANGIOGRAM OF THE CHEST WITH AND WITHOUT CONTRAST (CT PULMONARY ANGIOGRAM FOR PE) CLINICAL INFORMATION: Reason for Exam dyspnea, chest pain, known cancer COMPARISON: Chest radiograph earlier today, CT chest 08/24/2023 TECHNIQUE: Prior to contrast administration, noncontrast localization images were obtained. Subsequently, multidetector volumetric imaging was performed from the thoracic inlet to below the diaphragms following the administration of 65 mL Omnipaque 350 intravenous contrast. No contrast reaction reported Sagittal, coronal, and MIP oblique sagittal reformatted images were obtained on the CT workstation, uploaded to PACS, and reviewed. This CT examination was performed using dose optimization techniques as appropriate, variously including the following: *Automated exposure control *Adjustment of mA and/or kV according to patient size (this includes techniques or standardized protocols for targeted exams where dose is matched to indication/reason for exam; i.e. extremities or head) *Use of iterative reconstruction technique Total exam dose-length product 217 mGy-cm FINDINGS: QUALITY OF STUDY/CONTRAST BOLUS: Satisfactory. PULMONARY ARTERIES: No pulmonary emboli. THORACIC AORTA: No aneurysm. LUNG: Again seen is a right suprahilar mass with associated adenopathy and collapse of the right upper lobe. PLEURA: No pleural effusion or pneumothorax. MEDIASTINUM: Large right suprahilar mass again noted (see above). Mediastinal lymphadenopathy is seen. The largest node previously measured 2.5 x 1.5 cm in maximal transverse dimension and now measures 2.2 x 1.3 cm in maximal transverse dimension. Normal heart size. No pericardial effusion. No evidence of septal bowing or right heart strain. CORONARY ARTERY CALCIFICATION: Moderate CHEST WALL/AXILLA: No axillary or internal mammary lymphadenopathy. Left chest wall port is noted with its tip in the right atria. OSSEOUS STRUCTURES: No acute or suspicious osseous abnormality. UPPER ABDOMEN: Unremarkable. No reflux of contrast into the hepatic veins to suggest elevated right heart pressures. CT/CT angio chest PE protocol IMPRESSION: 1. No evidence of pulmonary emboli. 2. Right suprahilar mass with associated adenopathy and collapse of the right upper lobe. Mediastinal adenopathy appears slightly improved. VTE: negative.
--- NOTE | ~2023-09-28 | XR_ITS ---
EXAMINATION: XR CHEST CLINICAL INFORMATION: Neutropenic fever COMPARISON: 09/28/2023 TECHNIQUE: Frontal view of the chest was obtained. FINDINGS: Left chest port with tip the catheter at the superior cavoatrial junction. Normal cardiomediastinal silhouette. Minimal calcifications of the thoracic aorta. Improved aeration to the right upper lobe with resolution of previously seen atelectasis. There is a residual area of thickening around the right upper lobe bronchus corresponding to the patient's known mass. Streaky atelectasis at the left lung base. No pleural effusion or pneumothorax. No acute osseous abnormality. XR/XR chest 1V IMPRESSION: 1. Improved aeration to the right upper lobe with resolution of previously seen atelectasis. Residual area of thickening around the right upper lobe bronchus corresponding to the patient's known mass. 2. Streaky atelectasis at the left lung base.
--- NOTE | ~2023-09-28 | XR_ITS ---
EXAMINATION: XR chest 1V CLINICAL INFORMATION: Reason for Exam F U evolving infiltrates COMPARISON: October 04, 2023 TECHNIQUE: Single portable frontal view. Tubes and lines: Port-A-Cath remain in place properly positioned. There Lungs and pleura: Previously described right suprahilar consolidation infiltrates show further improvement. Blunting of left costophrenic angle probably small pleural effusion unchanged. Heart and mediastinum: The mediastinum is within normal limits.. Bones/soft tissue: Skeletal structures included are normal for patient's age. XR/XR chest 1V IMPRESSION: * Improving right suprahilar consolidation. * Port-A-Cath remain in place properly positioned. * Blunting of left costophrenic angle probably small effusion unchanged.
--- NOTE | 2023-09-28 09:27 | ED.CHESTPAIN ---
HPI - Chest Pain General Chief Complaint: Dyspnea Stated Complaint: CHEST PAIN PER EMS Time Seen by Provider: 09/28/23 09:24 Source: patient, EMS and old records reviewed Mode of arrival: EMS Limitations: no limitations History of Present Illness ED Provider: TEODORO FRANCE narrative: 63 yo female with PMH of bronchitis, prior IVDA, hep C, COPD, HTN, HLD, anemia, mitral regurgitation, GERD, IBS, gastroparesis, anxiety, depression, new dx of small cell lung cancer just DC on 09/04 after dx with postobstructive pneumonia and hypoNa SIADH, she follows with Dr. James had PET scan showing L and R supraclavicular node, paratracheal /mediastinal. negative brain MRI. She comes in today with c/o not feeling well after 1st chemo on thursday. She started with n/v/d weakness and myalgias on thursday. She feels weak and short of breath no chest pain reported. She told claims adjuster crop she has chest pain but denies this to me. Wilmer is very anxious and states she is scared and is supposed to do radiation this week. MD complaint: other (n/v/d weakness, dyspnea) Pertinent past history: other (lung cancer) Onset (ago): day(s) (Thursday ) Timing of current episode: constant Prior episodes: Yes Onset: during rest Pain location: substernal Pain radiation: none Severity: moderate Quality: aching Relieving factors: nothing Exacerbating factors: exertion and movement Context: new medications Associated symptoms: nausea and vomiting Treatment prior to arrival: none Related Data Home Medications ?Medication ?Instructions ?Recorded ?Confirmed alosetron 0.5 mg tablet 1 mg PO DAILY@89907/22/23 09/15/23 cholecalciferol (vitamin D3) 50 50 mcg PO DAILY@89907/22/23 09/15/23 mcg (2,000 unit) capsule pantoprazole 40 mg tablet,delayed 40 mg PO DAILY@62907/22/23 09/15/23 release solifenacin 10 mg tablet 10 mg PO DAILY@89907/22/23 09/15/23 tiotropium bromide 18 mcg capsule 1 cap inhalation DAILY@09 copd 07/22/23 09/15/23 with inhalation device (Spiriva with HandiHaler) sucralfate 1 gram tablet (Carafate) 4 g PO DAILY@1200 07/25/23 09/15/23 Previous Rx's ?Medication ?Instructions ?Recorded ibuprofen 600 mg tablet 600 mg PO Q8H PRN pain 30 days #90 09/27/21 tabs cyclobenzaprine 5 mg tablet 5 mg PO TID PRN muscle spasm 30 06/20/22 days #90 tabs albuterol sulfate 90 mcg/actuation 1 puff PO Q6H PRN shortness of 03/20/23 aerosol inhaler (Ventolin HFA) breath or wheezing 30 days #8.5 grams hydroxyzine HCl 50 mg tablet 50 mg PO BEDTIME #90 tabs 05/21/23 dextromethorphan-guaifenesin 10 10 ml PO TID PRN cough #237 mL 07/29/23 mg-100 mg/5 mL oral syrup aspirin 81 mg tablet,delayed 81 mg PO DAILY #90 tabs 08/02/23 release escitalopram oxalate 20 mg tablet 20 mg PO DAILY 90 days #90 tabs 08/04/23 nicotine 14 mg/24 hr daily 1 patch transdermal Q24H smoking 08/17/23 transdermal patch 28 days #28 ea metoprolol succinate 50 mg 50 mg PO DAILY #90 tabs 08/19/23 tablet,extended release 24 hr losartan 25 mg tablet 25 mg PO DAILY@0900 90 days #90 08/21/23 tabs sodium chloride 1,000 mg soluble 2,000 mg (2 x 1,000 mg) PO TID #90 09/05/23 tablet tabs lorazepam 1 mg tablet 1 mg PO BID PRN anxiety 28 days 09/08/23 #56 tabs fluticasone propionate 50 1 spray intranasal DAILY 30 days 09/11/23 mcg/actuation nasal #16 grams spray,suspension metoclopramide HCl 5 mg tablet 5 mg PO TID #90 tabs 09/14/23 mirtazapine 30 mg tablet 30 mg PO BEDTIME 90 days #90 tabs 09/14/23 oxycodone 5 mg tablet 5 mg PO .1-2 times daily PRN pain 09/22/23 10 days #20 tabs dexamethasone 4 mg tablet 4 mg PO BID #30 tabs 09/23/23 diphenoxylate-atropine 2.5 1 tab PO DAILY PRN Diarrhea #30 06/19/24 mg-0.025 mg tablet tabs ondansetron 8 mg disintegrating 8 mg PO Q8H PRN Nausea And 09/23/23 tablet Vomiting #30 tabs Allergies Allergy/AdvReac Type Severity Reaction Status Date / Time No Known Allergies Allergy Unknown unknown Verified 09/28/23 09:37 [NO KNOWN ALLERGIES] Review of Systems Review of Systems: Constitutional : pos Weight loss, No Fever, No Chills ENT/Mouth : No sore throat, No Rhinorrhea Eyes: No Swelling, No Redness Cardiovascular : No Chest Pain, pos SOB, NoEdema Respiratory : No Cough, No Sputum, No Wheezing Gastrointestinal : Positive Nausea, Positive Vomiting, positive Diarrhea, no abdominal Pain, No Hematochezia, No Melena Genitourinary : No Dysuria, No Urinary Frequency, No Hematuria, No Urgency Musculoskeletal : No joint pain, pos Myalgias, No Joint Swelling Skin : No Skin Lesions, No rash Neuro : pos Weakness, No Numbness, No Dizziness, No Headache Psych : No Anxiety/Panic, No Depression Heme/Lymph: No Bruising, No Lymphadenopathy Endocrine : No Polyuria, No Polydipsia All other systems reviewed and are negative. [facility] Past Medical History Attestation statement: The following information was validated with the patient. Source: old records reviewed Medical History COPD (chronic obstructive pulmonary disease) Small cell lung cancer (~08/2023) MDD (major depressive disorder), recurrent episode, moderate Abnormal CT scan, chest Mass of right lung Lung mass Bronchitis Rectal prolapse Nicotine dependence, cigarettes, uncomplicated Nonrheumatic mitral (valve) insufficiency Pulmonary nodule History of hepatitis C Osteopenia (~2011) IV drug user Endocarditis of mitral valve (~11/2017) Mitral valve prolapse Mitral regurgitation Early satiety Paresthesia of left leg Allergic rhinitis Facet arthritis of lumbar region Cervical spondylosis Vitamin D deficiency Pure hypercholesterolemia Benign essential hypertension GERD (gastroesophageal reflux disease) Anxiety Surgical History History of bronchoscopy (~2023) History of liver biopsy (~2009) History of partial colectomy (~2014) History of hysteroscopy (~2010) History of colonoscopy (~2017) Family History Family History Father Internal bleeding Mother Medical history unknown Social History Social History Household Members: None Housing: House Housing Other:: lives alone with her cat Malena Silva you presently have visiting nurse or other home services: No Alcohol intake: former Patient Tobacco Use Status: Current everyday Tobacco user Tobacco use type: Cigarette Cigarette Packs Per Day: 0.5 Years Smoked: 45 years (onset 15, 1/2-3/4ppd x 44yrs, 28pyh) Smoked in Last 30 Days: Yes e-Cigarette/Vaping Use: Never Used Second Hand Smoke Exposure: Yes Use of substances other than those prescribed or required for medical reasons: No Substance Use Type: Marijuana Advance Directives: Yes Advance Directives on File: Yes Advance Directives Date on File: 12/18/21 service: No Current occupational status: unemployed Sexual orientation: Straight/Heterosexual Gender identity: Female Cognitive needs: No Hearing needs: No Vision needs: Yes Physical Exam Vital Signs: Vital Signs: Last Vital Signs Temp 97.7 F 09/28/23 09:33 Pulse 83 09/28/23 11:45 Resp 20 09/28/23 11:45 BP 132/75 09/28/23 11:45 Pulse Ox 93 09/28/23 11:45 O2 Del Method Room Air 09/28/23 11:45 BMI result Body Mass Index 24.0 Appearance: Alert. Oriented X3. mild acute distress. anxious Eyes: Pupils equal, round and reactive to light. ENT: Pharynx dry MM Neck: Normal inspection. Neck supple. CVS: Normal heart rate and rhythm. Pulses normal. Respiratory: No respiratory distress. Breath sounds normal. Abdomen: Soft and nontender. Skin: Skin warm and dry. pale skin color. poor skin turgor. Extremities: No lower extremity edema. No calf ttp Neuro: Oriented X 3. No motor deficit. No sensory deficit. Course Course Course Narrative: + UA infection suspected at 1222pm IV ceftriaxone ordered Medications Administered Generic Name Dose Route Start Last Admin Trade Name Freq PRN Reason Stop Dose Admin Magnesium Sulfate 2 gm in 50 mls @ 25 mls/hr 09/28/23 11:27 09/28/23 11:37 Magnesium Sulfate/H2o IV 09/28/23 13:26 25 mls/hr ONCE ONE Administration Discontinued Medications Generic Name Dose Route Start Last Admin Trade Name Freq PRN Reason Stop Dose Admin Famotidine 20 mg 09/28/23 09:43 09/28/23 09:54 Famotidine/Pf 20 Mg/2 Ml Vial IVPUSH 09/28/23 09:44 20 mg ONCE ONE Administration Sodium Chloride 500 mls @ 500 mls/hr 09/28/23 09:43 09/28/23 11:33 Ns IV 09/28/23 10:42 Infused .Q1H ONE Infusion Ceftriaxone Sodium 1 gm/ 50 mls @ 100 mls/hr 09/28/23 12:21 09/28/23 13:01 Sodium Chloride IV 09/28/23 12:50 100 mls/hr ONCE ONE Administration Iohexol 100 ml 09/28/23 11:55 09/28/23 11:55 Iohexol 350 Mg/Ml 100 Ml Infus..Btl IV 09/28/23 11:56 65 ml ONCE ONE Administration Morphine Sulfate 4 mg 09/28/23 09:43 09/28/23 09:52 Morphine Sulfate 4 Mg/Ml Cartridge IVPUSH 09/28/23 09:44 4 mg ONCE ONE Administration Protocol Ondansetron HCl 4 mg 09/28/23 09:43 09/28/23 09:51 Ondansetron Hcl 4 Mg/2 Ml Vial IVPUSH 09/28/23 09:44 4 mg ONCE ONE Administration Medical Decision Making Medical Decision Making MDM Narrative: 63 yo female with PMH of bronchitis, prior IVDA, hep C, COPD, mitral regurgitation, HTN, HLD, anemia, GERD, IBS, gastroparesis, anxiety, depression, new dx of small cell lung cancer just DC on 09/04 after dx with postobstructive pneumonia and hypoNa SIADH, she follows with Dr. James here with c/o 1st chemo on thursday now with weakness, shortness of breath, no fevers, n/v/d and cannot tolerate PO at this time labs, IVF gentle 500cc bolus, morphine for pain, zofran will obtain lytes. She will get CXR for any signs of new disease. She has no chest pain to suggest VTE and her dyspnea she states is due to anxiety and not feeling well - VTE seems less likely Differential Diagnosis Differential Diagnoses: The differential diagnosis associated with the presentation includes dehydration, anemia, weakness, post chemo FTT Admission/Observation Consideration of admission/observation: Escalation of care including admission/observation considered admit for lyte abnormality IV antibiotics nausea Consult Healthcare Provider Management of the patient was discussed with: Hospitalist (will admit) Lab Data MDM Lab Attestation statement: I reviewed the patient's lab results. 09/28/23 10:44 09/28/23 10:44 Labs: Lab Results 09/28/23 09/28/23 09/28/23 Range/Units 10:44 10:58 11:44 WBC 5.9 (4.8-10.8) X10*3/uL RBC 3.63 L (4.20-5.50) X10*6/uL Hgb 9.9 L (12.0-16.0) g/dl Hct 28.6 L (37.0-47.0) % MCV 78.8 L (80.0-98.0) fL MCH 27.3 (27.0-33.0) pg MCHC 34.6 (31.0-35.0) g/dl RDW 14.6 (11.0-16.0) % Plt Count 146 L D (160-400) X10*3/uL MPV 8.8 L (9.4-12.3) fL Immature Gran % (Auto) 1.5 H (0.0-0.4) % Neut % (Auto) 81.4 H (45-73) % Lymph % (Auto) 15.6 L (20-40) % Harris % (Auto) 0.5 L (2-11) % Eos % (Auto) 0.7 (0-4) % Baso % (Auto) 0.3 (0-2) % Lymph # (Auto) 0.9 L (1.2-4.9) X10*3/uL Harris # (Auto) 0.0 L (0.1-1.2) X10*3/uL Eos # (Auto) 0.0 (0.0-0.4) X10*3/uL Baso # (Auto) 0.0 (0.0-0.2) X10*3/uL Abs Immat Gran (auto) 0.09 H (0.00-0.03) X10*3/uL Absolute Neuts (auto) 4.8 (2.0-8.3) x10*3/uL Absolute Nucleated RBC 0.000 (0.0-0.012) X10*3/uL Nucleated RBC % (auto) 0.0 (0.0-0.2) /100WBC Smear Tech's Comments VERIFIED Sodium 127 L (135-145) mmol/L Potassium 3.6 (3.3-5.1) mmol/L Chloride 95 L (96-108) mmol/L Carbon Dioxide 22 (22-29) mmol/L Anion Gap 17 (12-20) BUN 17 H (9-16) mg/dL Creatinine 0.68 (0.5-1.4) mg/dL Estim Creat Clear Calc 66.0 Estimated GFR > 60 Random Glucose 99 (60-115) mg/dL Lactic Acid 0.9 (0.5-2.0) mmol/L Calcium 8.3 L D (8.4-10.2) mg/dL Magnesium 1.5 L (1.6-2.6) mg/dL Total Bilirubin 0.9 (0.0-1.0) mg/dL Direct Bilirubin 0.3 (0.0-0.5) mg/dL AST 19 (5-31) U/L ALT 10 (0-31) U/L Alkaline Phosphatase 56 (39-117) U/L Troponin I High Sens 14.8 D (<3.5-17.0) ng/L B-Natriuretic Peptide 458 H (<100) pg/mL Total Protein 5.8 L (6.5-8.0) g/dL Albumin 3.5 (3.5-5.0) g/dL Lipase 9 (8-78) U/L Procalcitonin 0.02 ng/mL Urine Color Yellow Urine Appearance Turbid Urine pH 7.0 (5.0-9.0) Ur Specific [place] 1.015 (1.005-1.025) Urine Protein 100 (2+) H (Neg-Trace) mg/dL Urine Glucose (UA) Negative (Negative) mg/dL Urine Ketones Trace (Negative) mg/dL Urine Blood Small (1+) H (Negative) Urine Nitrite Negative (Negative) Ur Leukocyte Esterase Large (3+) H (Negative) Urine RBC 11-20 H (0-2) /HPF Urine WBC >50 H (0-5) /HPF Ur Squamous Epith Cells 0-2 (0-2) /HPF Urine Bacteria 4+ (None Seen) Hyaline Casts 0-2 (0-2) /LPF Influenza Type A (PCR) NEGATIVE (Negative) Influenza Type B (PCR) NEGATIVE (Negative) RSV RNA Qual (PCR) NEGATIVE (Negative) SARS-CoV-2 RNA (RT-PCR) NEGATIVE (Negative) Independent Interpretation I performed an independent interpretation of an: EKG and CT Scan (no PE) Interpretation: Rate: 99 Rhythm: NSR [place]: left Normal P waves. Normal BETZA[place]. Normal QRS complex. ST T wave : flat t waves lateral leads, no SHANNON qTC: 500 prior studies: no acute change The study has been interpreted contemporaneously by me. . Radiology Impression Discussion of test interpretation with radiology: I have reviewed the radiologist's reading. Independent Historian Clinical information obtained from an independent historian. History obtained from or confirmed by: EMS External Record Review External record reviewed: Inpatient record Critical Care Time Critical Care Time Critical Care Time: Yes Total Critical Care Time: 35 Attestation: IV morphine for pain with improvement, IV magnesium with repletion and monitoring, admission I attest to this time spent taking care of the patient Discharge Plan Discharge Clinical Impression: Hyponatremia, Hypomagnesemia, Acute UTI Nausea & vomiting Qualifiers: Vomiting type: unspecified Qualified Code(s): R11.2 - Nausea with vomiting, unspecified Patient Disposition: Admitted As Inpatient Print Language: Belarusian
--- NOTE | 2023-09-28 09:29 | ECG_ITS ---
Test Reason : DIFF BREATHING Blood Pressure : / mmHG Vent. Rate : 099 BPM Atrial Rate : 099 BPM P-R Int : 166 ms QRS Dur : 090 ms QT Int : 390 ms P-R-T Axes : 078 -29 059 degrees QTc Int : 500 ms Normal sinus rhythm Possible Left atrial enlargement Borderline ECG When compared with ECG of 24-AUG-2023 12:12, Premature ventricular complexes are no longer Present Vent. rate has increased BY 34 BPM QT has lengthened Referred By: Amanda Rhoades Electronically Signed By:PARMJIT HARTLEY MD
--- NOTE | 2023-09-28 09:44 | PC.NURSE ---
Reports SOB and CP (substernal, tightness, non-radiating) since yesterday. Has stage 3 lung cancer, had first round of chemo here this past week thu//thu. Is starting radiation next week at [facility]. Reports nausea, general malaise and weakness along with the SOB and CP. Alert and oriented, crying and upset. Breathing elevated. VSS, NSR on bedside director of cardiac rehabilitation.
[2023-09-28] MEDS: ondansetron HCL 4 MG/2 ML VIAL IVPUSH (09:51)
[2023-09-28] MEDS: Morphine Sulfate 4 MG/ML CARTRIDGE IVPUSH (09:52)
[2023-09-28] MEDS: 0.9 % Sodium Chloride 500 ML IV (09:53)
[2023-09-28] MEDS: Famotidine/PF 20 MG/2 ML VIAL IVPUSH (09:54)
[2023-09-28 10:51] LABS: Basophils Percent Auto 0.3 % (0-2); Eosinophils Percent Auto 0.7 % (0-4); Hematocrit 28.6 % (37.0-47.0); Hemoglobin 9.9 g/dl (12.0-16.0); Imm Gran Abs Auto 0.09 X10*3/uL (0.00-0.03); Imm Gran Pct Auto 1.5 % (0.0-0.4); Lymphocytes Absolute Auto 0.9 X10*3/uL (1.2-4.9); Lymphocytes Percent Auto 15.6 % (20-40); MANUAL DIFF FLAG SCAN; Mean Corpuscular HGB Conc 34.6 g/dl (31.0-35.0); Mean Corpuscular Hemoglobin 27.3 pg (27.0-33.0); Mean Corpuscular Volume 78.8 fL (80.0-98.0); Mean Platelet Volume 8.8 fL (9.4-12.3); Monocytes Percent Auto 0.5 % (2-11); Neutrophils Absolute Auto 4.8 x10*3/uL (2.0-8.3); Neutrophils Percent Auto 81.4 % (45-73); Platelet Count 146 X10*3/uL (160-400); Red Blood Count 3.63 X10*6/uL (4.20-5.50); Red Cell Distribution Width 14.6 % (11.0-16.0); SCAN SMEAR FLAG 1; White Blood Count 5.9 X10*3/uL (4.8-10.8)
[2023-09-28 11:14] LABS: Lactic Acid 0.9 mmol/L (0.5-2.0)
[2023-09-28 11:18] LABS: B Type Natriuretic Peptide 458 pg/mL (<100)
[2023-09-28 11:23] LABS: Alanine Aminotransferase 10 U/L (0-31); Albumin Level 3.5 g/dL (3.5-5.0); Alkaline Phosphatase 56 U/L (39-117); Aspartate Amino Transferase 19 U/L (5-31); Bilirubin Direct 0.3 mg/dL (0.0-0.5); Bilirubin Total 0.9 mg/dL (0.0-1.0); Blood Urea Nitrogen 17 mg/dL (9-16); Calcium 8.3 mg/dL (8.4-10.2); Carbon Dioxide 22 mmol/L (22-29); Chloride 95 mmol/L (96-108); Estimated Glomerular Filt Rate > 60; Glucose Random 99 mg/dL (60-115); Lipase 9 U/L (8-78); Magnesium 1.5 mg/dL (1.6-2.6); Potassium 3.6 mmol/L (3.3-5.1); SLIDE REVIEW VERIFIED; Sodium 127 mmol/L (135-145); Total Protein 5.8 g/dL (6.5-8.0)
[2023-09-28 11:25] LABS: Troponin-I High Sensitivity 14.8 ng/L (<3.5-17.0)
[2023-09-28] MEDS: Magnesium Sulfate/H2O 2 GM/50 ML PIGGYBACK IV (11:37)
[2023-09-28 11:45] LABS: Anion Gap 17 (12-20); Procalcitonin 0.02 ng/mL
[2023-09-28 11:48] LABS: Influenza A PCR NEGATIVE (Negative); Influenza B PCR NEGATIVE (Negative); Resp Syncy Virus RNA Qual PCR NEGATIVE (Negative); SARS COV2 PCR INHOUSE NEGATIVE (Negative)
[2023-09-28] MEDS: iohexoL 350 MG/ML 100 ML INFUS..BTL IV (11:55)
[2023-09-28 11:58] LABS: Appearance Urine Turbid; Color Urine Yellow; Glucose Urine UA Negative (Negative); Leukocyte Esterase Urine Large (3+) (Negative); Nitrite Urine Negative (Negative); Specific Gravity - Urine 1.015 (1.005-1.025); UMIC TRIGGER UACC YES; Urine Blood Small (1+) (Negative); Urine Ketones Trace mg/dL (Negative); Urine Protein 100 (2+) mg/dL (Neg-Trace)
[2023-09-28 12:03] LABS: Bacteria Urine 4+ (None Seen); Hyaline Casts Urine 0-2 /LPF (0-2); Squamous Epithelial Cell Urine 0-2 /HPF (0-2); UACC Culture Trigger YES; WBC Urine >50 /HPF (0-5)
[2023-09-28] MEDS: cefTRIAXone sodium 1 GM in 0.9 % Sodium Chloride 50 ML IV (13:01)
[2023-09-28] MEDS: 0.9 % Sodium Chloride 1,000 ML 80 ML IVCONT (13:54)
--- NOTE | 2023-09-28 14:17 | PM.IMHP ---
History of Present Illness Date of Service: 09/28/23 Attending physician on admission: Yakov Robles Chief Complaint: n/v, chest pain 62 yo female with PMH of bronchitis, history of IVDA, history of hepatitis-C, COPD, HTN, HLD, anemia, GERD, IBS, gastroparesis, anxiety, depression with recent admission to [facility] from 08/23-09/04 where she was diagnosed with small cell lung cancer with post obstructive pneumonia and SIADH presented to the ED for evaluation of retrostrernal non radiating chest pain and nausea/vomiting diarrhea that started 2 days ago, started chemo on thursday. she follows with Dr. James had PET scan showing L and R supraclavicular node, paratracheal /mediastinal. negative brain MRI. She reports ongoing productive cough and shortness of breath without change in quality or severity. No weight gain or orthopnea. Denies anorexia, prior to today has been eating and drinking without difficult. Endorses significant anxiety. Since arrival, vss. No leukocytosis. Acute on chronic microcytic anemia h/h 9.9/28.6%, plt 146. Renal function baseline. Na 127, Cl 95, Ca 8.3, Mag 1.5. Lytes otherwise normal. BNP 458. PCT 0.02. UA 3+ leuks, 1+ blood, 2+ protein, positive urinary sediment, 4+ bacteria. Negative flu/rsv/covid. CTA chest negative PE, right suprahilar mass with associated adenopathy and collapse of RUL. Mediastinal adenopathy slightly improved. In the ED, received famotidine 20mg, 2g mag, morphine, IV NS, 1g ctx and zofran. Review of Systems Review of Systems: Yes all other systems are reviewed and are negative [facility] Medical History COPD (chronic obstructive pulmonary disease) Small cell lung cancer (~08/2023) MDD (major depressive disorder), recurrent episode, moderate Abnormal CT scan, chest Mass of right lung Lung mass Bronchitis Rectal prolapse Nicotine dependence, cigarettes, uncomplicated Nonrheumatic mitral (valve) insufficiency Pulmonary nodule History of hepatitis C Osteopenia (~2011) IV drug user Endocarditis of mitral valve (~11/2017) Mitral valve prolapse Mitral regurgitation Early satiety Paresthesia of left leg Allergic rhinitis Facet arthritis of lumbar region Cervical spondylosis Vitamin D deficiency Pure hypercholesterolemia Benign essential hypertension GERD (gastroesophageal reflux disease) Anxiety Family History Father Internal bleeding Mother Medical history unknown Surgical History History of bronchoscopy (~2023) History of liver biopsy (~2009) History of partial colectomy (~2014) History of hysteroscopy (~2010) History of colonoscopy (~2017) Social History Household Members: None Housing: House Housing Other:: lives alone with her cat Malena Do you presently have visiting nurse or other home services: No Alcohol intake: former Patient Tobacco Use Status: Current everyday Tobacco user Tobacco use type: Cigarette Cigarette Packs Per Day: 0.5 Years Smoked: 45 years (onset 15, 1/2-3/4ppd x 44yrs, 28pyh) Smoked in Last 30 Days: Yes e-Cigarette/Vaping Use: Never Used Second Hand Smoke Exposure: Yes Use of substances other than those prescribed or required for medical reasons: No Substance Use Type: Marijuana Advance Directives: Yes Advance Directives on File: Yes Advance Directives Date on File: 12/18/21 service: No Current occupational status: unemployed Sexual orientation: Straight/Heterosexual Gender identity: Female Cognitive needs: No Hearing needs: No Vision needs: Yes Meds Allergies Allergy/AdvReac Type Severity Reaction Status Date / Time No Known Allergies Allergy Unknown unknown Verified 09/28/23 09:37 [NO KNOWN ALLERGIES] Active Medications: Current Medications Sodium Chloride (Ns) 1,000 mls @ 80 mls/hr IVCONT .[id number] [facility] Last Admin: 09/28/23 13:54 Dose: 80 mls/hr Home Medications ?Medication ?Instructions ?Recorded ?Confirmed ?Last Taken ?Type alosetron 0.5 mg tablet 1 mg PO DAILY@89907/22/23 09/28/23 09/28/23 History cholecalciferol (vitamin D3) 50 50 mcg PO DAILY@89907/22/23 09/28/23 09/28/23 History mcg (2,000 unit) capsule pantoprazole 40 mg tablet,delayed 40 mg PO DAILY@0630 07/22/23 09/28/23 09/28/23 History release solifenacin 10 mg tablet 10 mg PO DAILY@0900 07/22/23 09/28/23 09/28/23 History tiotropium bromide 18 mcg capsule 1 cap inhalation DAILY@0900 copd 07/22/23 09/28/23 09/28/23 History with inhalation device (Spiriva with HandiHaler) sucralfate 1 gram tablet (Carafate) 4 g PO DAILY@1200 07/25/23 09/28/23 09/28/23 History budesonide 180 mcg/actuation 2 inh inhalation BID 09/28/23 09/28/23 09/28/23 History breath activated powder inhaler (Pulmicort Flexhaler) lorazepam 1 mg tablet 1 mg PO BID 09/28/23 09/28/23 09/28/23 History oxycodone 5 mg tablet 5 - 10 mg PO DAILY PRN pain 09/28/23 09/28/23 Unknown History Physical Exam Vital Signs and Narrative: Vital Signs: Last Vital Signs Temp 97.7 F 09/28/23 09:33 Pulse 83 09/28/23 11:45 Resp 20 09/28/23 11:45 BP 132/75 09/28/23 11:45 Pulse Ox 93 09/28/23 11:45 O2 Del Method Room Air 09/28/23 11:45 BMI result Body Mass Index 24.0 Constitutional - Awake and Alert, No apparent distress Eyes - PERRLA, EOMI Cardiovascular - S1S2, RRR, No edema Respiratory - Normal lung expansion, Normal respiratory effort, No respiratory distress, bilateral crackles Gastrointestinal - NT / ND; +BS; No rebound or guarding Extremities - no calf tenderness bilaterally, no swelling Skin - Warm/Dry Neurological - Alert & oriented x3 Psychological - Appropriate affect Results Labs 09/28/23 10:44 09/28/23 10:44 Labs: Laboratory Results - last 24 hr 09/28/23 09/28/23 09/28/23 10:44 10:58 11:44 MCV 78.8 L MCH 27.3 MCHC 34.6 RDW 14.6 Plt Count 146 L D MPV 8.8 L Immature Gran % (Auto) 1.5 H Neut % (Auto) 81.4 H Lymph % (Auto) 15.6 L [place] % (Auto) 0.5 L Eos % (Auto) 0.7 Baso % (Auto) 0.3 Lymph # (Auto) 0.9 L [place] # (Auto) 0.0 L Eos # (Auto) 0.0 Baso # (Auto) 0.0 Abs Immat Gran (auto) 0.09 H Absolute Neuts (auto) 4.8 Absolute Nucleated RBC 0.000 Nucleated RBC % (auto) 0.0 Smear Tech's Comments VERIFIED Anion Gap 17 Estim Creat Clear Calc 66.0 Estimated GFR > 60 Random Glucose 99 Lactic Acid 0.9 Calcium 8.3 L D Magnesium 1.5 L Total Bilirubin 0.9 Direct Bilirubin 0.3 AST 19 ALT 10 Alkaline Phosphatase 56 Troponin I High Sens 14.8 D B-Natriuretic Peptide 458 H Total Protein 5.8 L Albumin 3.5 Lipase 9 Procalcitonin 0.02 Urine Color Yellow Urine Appearance Turbid Urine pH 7.0 Ur Specific [place] 1.015 Urine Protein 100 (2+) H Urine Glucose (UA) Negative Urine Ketones Trace Urine Blood Small (1+) H Urine Nitrite Negative Ur Leukocyte Esterase Large (3+) H Urine RBC 11-20 H Urine WBC >50 H Ur Squamous Epith Cells 0-2 Urine Bacteria 4+ Hyaline Casts 0-2 Influenza Type A (PCR) NEGATIVE Influenza Type B (PCR) NEGATIVE RSV RNA Qual (PCR) NEGATIVE SARS-CoV-2 RNA (RT-PCR) NEGATIVE Imaging Radiologist's Impressions: Impressions Chest X-Ray 09/28/23 10:02 IMPRESSION: Right upper lobe mass with partial right upper lobe collapse/consolidation. There may be mild improvement when compared to the recent study. Chest CTA 09/28/23 12:07 IMPRESSION: 1. No evidence of pulmonary emboli. 2. Right suprahilar mass with associated adenopathy and collapse of the right upper lobe. Mediastinal adenopathy appears slightly improved. VTE: negative. Assessment and Plan (1) Acute UTI: Status: Acute (2) Nausea & vomiting: Qualifiers: Vomiting type: unspecified Qualified Code(s): R11.2 - Nausea with vomiting, unspecified Status: Acute (3) Hypomagnesemia: Status: Acute (4) Hyponatremia: Status: Acute Plan 62 yo female with PMH of bronchitis, history of IVDA, history of hepatitis-C, COPD, HTN, HLD, anemia, GERD, IBS, gastroparesis, anxiety, depression with recent admission to [facility] from 08/23-09/04 where she was diagnosed with small cell lung cancer with post obstructive pneumonia and SIADH to be observed for nausea/vomiting/diarrhea r/t chemo therapy #Acute N/V/D r/t chemotherapy -renal function WNL -continue gentle IVF -gi panel, cdiff pcr -antiemetics prn -clear liquid diet -follow renal function/lytes -oncology consult #Acute chronic hyponatremia -likely combination hypotonic mixed with SIADH -Serum osm / 288, urine osm / 631 -continue IVF, sodium tabs -fluid restrict once euvolemic -follow lytes #Acute hypomagnesemia -repleted, follow lytes #Acute UTI -UA with 3+ leuks, 1+ blood, positive urinary sediment, 4+ bacteria -iv ctx (initiated 09/27) -follow cultures. No sepsis #Small cell lung cancer -oncology consult -pain management prn #Atypical chest pain -reproducible to palpation -likely r/t cancer/anxiety #Adjustment disorder/anxiety -continue home meds -poorly controlled, psychiatry consult # COPD -does not appear to be in acute exacerbation requiring IV steroids -continue maintenance inhalers, albuterol prn # hypertension -blood pressure reasonably controlled -continue losartan, metoprolol # GERD -PPI # mood disorder -continue home meds DVT prophylaxis-heparin Full code Quality Stroke Does the patient have a stroke diagnosis?: No VTE Prior VTE?: No VTE Risk Level:: Medical - moderate - high VTE Device Contraindication: Treatment Not Indicated VTE Drug Contraindication: N/A - Med Ordered
--- NOTE | 2023-09-28 14:28 | PHA.MEDREC ---
Pharmacy Consult ? Medication Reconciliation Pharmacy has completed the medication reconciliation. Spoke to Patient she was very knowledgeable. She new what medications she was on. Patient states she is no longer on Nifedipine 30 mg daily. she stopped Aspirin 81 Mg daily, Simvastatin 40 mg daily, because of she had a Stent Placement put in. Patient says she isn't sure when she will have to start them again. Patient also stated she only takes Dexamethasone 4 mg bid for 2 days after chemo.
[2023-09-28] MEDS: Metoclopramide HCl 5 MG TABLET PO ×2 (16:10→21:34)
[2023-09-28] MEDS: LORazepam 2 MG/ML VIAL 0.5 MG IVPUSH (16:11)
[2023-09-28] MEDS: Enoxaparin Sodium 40 MG/0.4 ML SYRINGE SUBCUT (16:11)
[2023-09-28] MEDS: Nicotine 14 MG PATCH.TD24 TRANSDERMA (16:14)
--- NOTE | 2023-09-28 17:05 | PC.NURSE ---
NaCl tab not stocked in [facility], pharmacy called, will send down.
[2023-09-28] MEDS: 0.9 % Sodium Chloride Flush 3 ML SYRINGE IVFLUSH (17:42)
[2023-09-28] MEDS: Sodium Chloride Tab 1 GM TABLET 2 GM PO (18:09)
--- NOTE | 2023-09-28 19:14 | MHC.EDTECH ---
this tech took over care @ 1900, checked on pt and asked if they needed anything, pt denied any request and continued to rest quietly in bed.
--- NOTE | 2023-09-28 21:22 | PC.NURSE ---
pt brought to room from ED. Receiving RN not given report, not told patient was on the way up. Patient not medicated prior to arrival. RN unable to speak to nurse that was caring for patient as ED RN did no charting on patient. No note from ED RN written for overnight shift, prior to sending patient to the unit. CDIFF sample and GI sample not collected. Patient weepy. Patient upset about clear liquid diet. Independent. all needs met, call miller in reach. safety and comfort maintained.
[2023-09-28] MEDS: LORazepam 1 MG TABLET PO (21:34)
[2023-09-28] MEDS: hydrOXYzine HCL 50 MG TABLET PO (21:34)
[2023-09-28] MEDS: Mirtazapine 30 MG TABLET PO (21:35)
[2023-09-28] MEDS: Acetaminophen 325 MG TABLET 650 MG PO (21:35)
--- NOTE | 2023-09-28 22:00 | PM.HEMONCCN ---
Subjective - Subjective Chief complaint: Consult for: Small-cell lung carcinoma. Patient: known to practice within the last 3 years Consult date: 09/28/23 Requesting Physician: Rossana . Primary Care Provider: Sarthak Person MD Family Provider: Sarthak Person MD Medical Summary: DIAGNOSIS: SMALL CELL CA OF LUNG. HPI - Consult Narrative Reason for consult: Consult for: Small-cell lung carcinoma. Narrative: Sarah Medina is a 63 year old lady, with history of IVDA, history of hepatitis-C, recent admission to [facility] from 08/23-09/04 where she was diagnosed with small cell lung cancer with post obstructive pneumonia and SIADH. She had PET scan showing L and R supraclavicular node, paratracheal /mediastinal. negative brain MRI. She presented to the ED yesterday, for evaluation of retrostrernal non radiating chest pain and nausea/vomiting diarrhea that started 2 days ago, started chemo on friday 09/22. She also had productive cough and shortness of breath. No weight gain or orthopnea. Denies anorexia, has been eating and drinking without difficult. Endorses significant anxiety. Since arrival, vss. No leukocytosis. Acute on chronic microcytic anemia h/h 9.9/28.6%, plt 146. Renal function baseline. Na 127, Cl 95, Ca 8.3, Mag 1.5. Lytes otherwise normal. BNP 458. PCT 0.02. UA 3+ leuks, 1+ blood, 2+ protein, positive urinary sediment, 4+ bacteria. Negative flu/rsv/covid. CTA chest negative PE, right suprahilar mass with associated adenopathy and collapse of RUL. Mediastinal adenopathy slightly improved. In the ED, received famotidine 20mg, 2g mag, morphine, IV NS, 1g ctx and zofran. [facility] Medical History: Bronchitis, COPD, HTN, HLD, anemia, GERD, IBS, gastroparesis, anxiety, depression COPD (chronic obstructive pulmonary disease) Small cell lung cancer (~08/2023) MDD (major depressive disorder), recurrent episode, moderate Abnormal CT scan, chest Mass of right lung Lung mass Bronchitis Rectal prolapse Nicotine dependence, cigarettes, uncomplicated Nonrheumatic mitral (valve) insufficiency Pulmonary nodule History of hepatitis C Osteopenia (~2011) IV drug user Endocarditis of mitral valve (~11/2017) Mitral valve prolapse Mitral regurgitation Early satiety Paresthesia of left leg Allergic rhinitis Facet arthritis of lumbar region Cervical spondylosis Vitamin D deficiency Pure hypercholesterolemia Benign essential hypertension GERD (gastroesophageal reflux disease) Anxiety Surgical History: History of bronchoscopy (~2023) History of liver biopsy (~2009) History of partial colectomy (~2014) History of hysteroscopy (~2010) History of colonoscopy (~2017) Family History: Father Internal bleeding Mother Medical history unknown Social History: Household Members: None Housing: House Housing Other:: lives alone with her cat Malena Do you presently have visiting nurse or other home services: No Alcohol intake: former Patient Tobacco Use Status: Current everyday Tobacco user Tobacco use type: Cigarette Cigarette Packs Per Day: 0.5 Years Smoked: 45 years (onset 15, 1/2-3/4ppd x 44yrs, 28pyh) Smoked in Last 30 Days: Yes e-Cigarette/Vaping Use: Never Used Second Hand Smoke Exposure: Yes Use of substances other than those prescribed or required for medical reasons: No Substance Use Type: Marijuana. Review of Systems Review of Systems: Yes all other systems are reviewed and are negative Review of Systems - Constitutional Reports no additional constitutional complaints, Reports fatigue, Reports fever(s), Reports lack of energy, Reports malaise, Reports weakness - Eyes Reports no additional eye complaints - ENT Reports no additional ear, nose, mouth, and throat complaints - Cardiovascular Reports no additional cardiovascular complaints - Respiratory Reports no additional respiratory complaints - Gastrointestinal Reports no additional gastrointestinal complaints - Genitourinary Reports no additional female genitourinary complaints - Musculoskeletal Reports no additional musculoskeletal complaints - Integumentary/Breasts Skin/Breast: Reports no additional skin complaints - Neurologic Reports no additional neurologic complaints - Psychiatric Reports no additional psychiatric complaints - Endocrine Reports no additional endocrine complaints - Hematologic/Lymphatic Reports no additional hematologic/lymphatic complaints - Allergic/Immunologic Reports no additional allergic/immunologic complaints Oncology Screenings - ECOG Performance Status ECOG Performance Status: 2 [facility] Medical History: Medical History (Last Reviewed 09/28/23 @ 15:06 by YEVGENIY Fernandez) Abnormal CT scan, chest Allergic rhinitis Anxiety Benign essential hypertension Bronchitis Cervical spondylosis COPD (chronic obstructive pulmonary disease) Early satiety Endocarditis of mitral valve Onset Date: ~11/2017 Facet arthritis of lumbar region GERD (gastroesophageal reflux disease) History of hepatitis C IV drug user Lung mass Mass of right lung MDD (major depressive disorder), recurrent episode, moderate Mitral regurgitation Mitral valve prolapse Nicotine dependence, cigarettes, uncomplicated Nonrheumatic mitral (valve) insufficiency Osteopenia Onset Date: ~2011 Paresthesia of left leg Pulmonary nodule Pure hypercholesterolemia Rectal prolapse Small cell lung cancer Onset Date: ~08/2023 Vitamin D deficiency Functional capacity: wheelchair bound Patient : No Family History: Family History (Last Reviewed 09/28/23 @ 15:06 by YEVGENIY Fernandez) Father Internal bleeding Mother Medical history unknown Surgical History: Surgical History (Last Reviewed 09/28/23 @ 15:06 by YEVGENIY Fernandez) History of bronchoscopy Onset Date: ~2023 History of colonoscopy Onset Date: ~2017 History of hysteroscopy Onset Date: ~2010 History of liver biopsy Onset Date: ~2009 History of partial colectomy Onset Date: ~2014 Social History: Social History (Last Reviewed 09/28/23 @ 15:06 by YEVGENIY Fernandez) Living Situation History: Household Members: None Housing: House Housing Other:: lives alone with her cat Malena Do you presently have visiting nurse or other home services: No Alcohol History Details: 1. How often do you have a drink containing alcohol?: a. Never AUDIT-C Alcohol total score: 0 Currently Displaying Signs/Symptoms of Alcohol Withdrawal: No Tobacco History: Patient Tobacco Use Status: Never used Tobacco Tobacco use type: Cigarette Cigarette Packs Per Day: 0.5 Years Smoked: 45 years (onset 15, 1/2-3/4ppd x 44yrs, 28pyh) Smoked in Last 30 Days: Yes e-Cigarette/Vaping Use: Never Used Patient Interested in Nicotine Replacement: Yes Patient Given Instructions on How to Stop Smoking: Yes Date Education Initiated: 09/28/23 Second Hand Smoke Exposure: Yes Substance Use History: Use of substances other than those prescribed or required for medical reasons: No Substance Use Type: Marijuana Currently Displaying Signs/Symptoms of Drug Intoxication Withdrawal: No Any prior treatment program specific to substance use: No Domestic Abuse History: Have you been hit, kicked, punched, or otherwise hurt by someone within the past year? If so, by whom?: No Do you feel safe in your current relationship?: No Is there a partner from a previous relationship who is making you feel unsafe now?: No Are you made to feel afraid or neglected: No Advance Directives: Advance Directives: Yes Advance Directives on File: Yes Advance Directives Date on File: 12/18/21 Homicidal Assessment: Do you have a plan to hurt others: No Plan Nutrition Assessment: Recently lost weight without trying: Unsure How much weight loss: Unsure Eating poorly because of decreased appetite: Yes Nutrition screen score: 5 Nutrition Risks: No Nutritional Risk Patient : No : No Poor oral hygiene: No Occupation Assessmet: service: No Current occupational status: unemployed Sex/Gender Assessment: Sexual orientation: Straight/Heterosexual Gender identity: Female Home Medications and Allergies Current Medications: Current Medications Acetaminophen (Acetaminophen 325 Mg Tablet) 650 mg PO Q6H PRN PRN Reason: Pain, Mild (Pain Scale 1-3), fever or headache Last Admin: 09/28/23 21:35 Dose: 650 mg Albuterol Sulfate (Albuterol Sulfate 90 Mcg 8 Gm Inhaler) 1 puff INHALE Q6H PRN PRN Reason: shortness of breath or wheezing Budesonide (Budesonide 180 Mcg Aer.Pow.Ba) 2 puff INHALE RBID [facility] Last Admin: 09/28/23 20:34 Dose: Not Given Calcium Carbonate (Calcium Carbonate 750 Mg Tab.Chew) 750 mg PO Q4H PRN PRN Reason: Heartburn Enoxaparin Sodium (Enoxaparin Sodium 40 Mg/0.4 Ml Syringe) 40 mg SUBCUT Q24H [facility] Last Admin: 09/28/23 16:11 Dose: 40 mg Escitalopram Oxalate (Escitalopram Oxalate 20 Mg Tablet) 20 mg PO DAILY [facility] Fluticasone Propionate (Fluticasone Propionate Nasal 16 Gm [place]) 1 spray NOSTRIL-B DAILY [facility] Guaifenesin/Dextromethorphan (Guaifenesin Dm 100/10/5 Ml 5 Ml Syrup) 10 ml PO TID PRN PRN Reason: cough Hydroxyzine HCl (Hydroxyzine Hcl 50 Mg Tablet) 50 mg PO BEDTIME [facility] Last Admin: 09/28/23 21:34 Dose: 50 mg Sodium Chloride (Ns) 1,000 mls @ 80 mls/hr IVCONT .[id number] [facility] Last Admin: 09/28/23 13:54 Dose: 80 mls/hr Ceftriaxone Sodium 1 gm/ (Sodium Chloride) 50 mls @ 100 mls/hr IV Q24H [facility] Lorazepam (Lorazepam 1 Mg Tablet) 1 mg PO BID [facility] Last Admin: 09/28/23 21:34 Dose: 1 mg Losartan Potassium (Losartan Potassium 25 Mg Tablet) 25 mg PO DAILY@0900 [facility]; Protocol Magnesium Hydroxide (Milk Of Magnesia 30 Ml Oral.Susp) 30 ml PO DAILY PRN PRN Reason: Constipation Melatonin (Melatonin 3 Mg Tablet) 6 mg PO BEDTIME PRN PRN Reason: Insomnia Metoclopramide HCl (Metoclopramide Hcl 5 Mg Tablet) 5 mg PO TID [facility] Last Admin: 09/28/23 21:34 Dose: 5 mg Metoprolol Succinate (Metoprolol Succinate Er 50 Mg Tab.Er.24h) 50 mg PO DAILY [facility]; Protocol Mirtazapine (Mirtazapine 30 Mg Tablet) 30 mg PO BEDTIME [facility] Last Admin: 09/28/23 21:35 Dose: 30 mg Morphine Sulfate (Morphine Sulfate 2 Mg/Ml Cartridge) 2 mg IVPUSH Q4H PRN; Protocol PRN Reason: Pain, Severe (Pain Scale 7-10) Nicotine (Nicotine 14 Mg Patch.Td24) 14 mg TRANSDERMA Q24H [facility] Last Admin: 09/28/23 16:14 Dose: 14 mg Non-Formulary Medication (Alosetron) 1 mg PO DAILY@0900 [facility] Omeprazole (Omeprazole 20 Mg Capsule.Dr) 20 mg PO DAILY@0630 [facility] Ondansetron HCl (Ondansetron Hcl 4 Mg/2 Ml Vial) 4 mg IVPUSH Q8H PRN PRN Reason: Nausea and Vomiting Oxycodone HCl (Oxycodone Hcl Immed Release 5 Mg Tablet) 5 mg PO DAILY PRN PRN Reason: Pain, Moderate(Pain Scale 4-6) Sodium Chloride (0.9 % Sodium Chloride Flush 3 Ml Syringe) 3 ml IVFLUSH QSHIFT [facility] Last Admin: 09/28/23 17:42 Dose: 3 ml Sodium Chloride (Sodium Chloride Tab 1 Gm Tablet) 2 gm PO TID [facility] Last Admin: 09/28/23 21:34 Dose: Not Given Sucralfate (Sucralfate 1 Gm Tablet) 4 gm PO DAILY@1200 [facility] Tiotropium [place] (Tiotropium [place] 2.5 Mcg 1 Puff/2.5 Mcg Mist.Inhal) 2 puff INHALE RDAILY [facility] Tolterodine Tartrate (Tolterodine Tartrate [place] 4 Mg Cap.Er.24h) 4 mg PO DAILY@09 [facility] Vitamin D (Cholecalciferol (Vitamin D3) 25 Mcg Tablet) 50 mcg PO DAILY@0900 [facility] Home Medications ?Medication ?Instructions ?Recorded ?Confirmed ?Type alosetron 0.5 mg tablet 1 mg PO DAILY@0900 07/22/23 09/28/23 History cholecalciferol (vitamin D3) 50 50 mcg PO DAILY@0907/22/23 09/28/23 History mcg (2,000 unit) capsule pantoprazole 40 mg tablet,delayed 40 mg PO DAILY@0607/22/23 09/28/23 History release solifenacin 10 mg tablet 10 mg PO DAILY@89907/22/23 09/28/23 History tiotropium bromide 18 mcg capsule 1 cap inhalation DAILY@09 copd 07/22/23 09/28/23 History with inhalation device (Spiriva with HandiHaler) sucralfate 1 gram tablet (Carafate) 4 g PO DAILY@1200 07/25/23 09/28/23 History budesonide 180 mcg/actuation 2 inh inhalation BID 09/28/23 09/28/23 History breath activated powder inhaler (Pulmicort Flexhaler) lorazepam 1 mg tablet 1 mg PO BID 09/28/23 09/28/23 History oxycodone 5 mg tablet 5 - 10 mg PO DAILY PRN pain 09/28/23 09/28/23 History Allergies Allergy/AdvReac Type Severity Reaction Status Date / Time No Known Allergies Allergy Unknown unknown Verified 09/28/23 09:37 [NO KNOWN ALLERGIES] Physical Exam Vital signs: Vital Signs Temp 97.0 F 09/28/23 21:37 Pulse 62 09/28/23 21:37 Resp 16 09/28/23 21:37 BP 135/76 09/28/23 21:37 Pulse Ox 94 09/28/23 21:37 O2 Del Method Room Air 09/28/23 21:37 Intake & Output 09/28/23 09/28/23 09/29/23 06:59 18:59 06:59 Intake Total 600 / 600 Balance 600 / 600 Intake: Intake, IV Amount 600 / 600 0.9 % Sodium Chloride 500 ml @ 500 / 500 500 mls/hr IV .Q1H ONE Rx#: [id number] Magnesium Sulfate/H2O 2 gm In 50 / 50 50 ml @ 25 mls/hr IV ONCE ONE Rx#:[id number] cefTRIAXone sodium 1 gm In 0.9 50 / 50 % Sodium Chloride 50 ml @ 100 mls/hr IV ONCE ONE Rx#: [id number] Other: Last Bowel Movement 09/28/23 Weight 59.5 kg 59.5 kg [place] Weight in Grams 22890 Weight 59.5 kg - Constitutional Present: mild distress - Routine HEENT Exam Head: Present: normocephalic ENT: Present: mucous membranes moist - Routine Neck Exam Present: supple - Routine Respiratory Exam Present: decreased breath sounds - Routine Cardiovascular Exam Cardiovascular: Present: RRR, S1, S2 - Routine Abdominal Exam Present: nontender - Routine Extremities Exam Present: nontender - Routine Skin Exam Present: intact - Routine Neurological Exam Present: alert, oriented X3 - Routine Psychiatric Exam Present: normal affect Hem/Onc Consult Result - Labs CBC & Chem 7: 09/29/23 05:53 09/29/23 05:53 Labs: Short CBC 09/28/23 Range/Units 10:44 WBC 5.9 (4.8-10.8) X10*3/uL Hgb 9.9 L (12.0-16.0) g/dl Hct 28.6 L (37.0-47.0) % Plt Count 146 L D (160-400) X10*3/uL BMP 09/28/23 10:44 Sodium 127 L Potassium 3.6 Chloride 95 L Carbon Dioxide 22 BUN 17 H Creatinine 0.68 Calcium 8.3 L D Liver Function 09/28/23 Range/Units 10:44 Total Bilirubin 0.9 (0.0-1.0) mg/dL Direct Bilirubin 0.3 (0.0-0.5) mg/dL AST 19 (5-31) U/L ALT 10 (0-31) U/L Alkaline Phosphatase 56 (39-117) U/L Albumin 3.5 (3.5-5.0) g/dL Urine 09/28/23 Range/Units 11:44 Urine Color Yellow Urine Appearance Turbid Urine pH 7.0 (5.0-9.0) Ur Specific [place] 1.015 (1.005-1.025) Urine Protein 100 (2+) H (Neg-Trace) mg/dL Urine Glucose (UA) Negative (Negative) mg/dL Assessment and Plan Patient Active problem list reviewed?: Yes (1) Small cell lung cancer Problem details: As noted above her recent bronchoscopic exam and bronchial biopsy are positive small cell carcinoma. Status: Acute Assessment and plan: 63 year old lady with recent diagnosis of Small cell Lung Cancer, involving right hilum in August 2023. CT chest with contrast revealed a right suprahilar mass measuring 5.8 x 4.1 cm encasing and occluding right upper lobe bronchus with complete collapse of right upper lobe. This is a small stable left upper lobe 1 cm pulmonary nodule, enlarged mediastinal lymph nodes with 1.4 x 2.7 x 2.4 cm pretracheal lymph node. No pleural effusion or axillary adenopathy. Adrenals normal, no evidence of osseous metastatic disease. She had a CT head without contrast which was negative for metastasis. Clinical stage T3 N2, Stage IIIB LDH mildly elevated at 274, CEA 12.1 NG/ mL. She had presented with severe hyponatremia with sodium of 116 millimole per L secondary to SIADH/lung cancer. She was placed on water restriction and has been started on sodium tablets. levels have normalized. She does not have significant respiratory symptoms. Is oxygenating well on room air. PET scan performed at [facility] on 09/11/2023 showed FDG avid right hilar/suprahilar mass with SUV 12.6, FDG avid mediastinal and right hilar lymphadenopathy. Left supraclavicular lymph node SUV max 4.2, right supraclavicular lymph node SUV max 2, right paratracheal SUV max 9.4, anterior mediastinal SUV max 4.8. Nonspecific focal activity in anal canal SUV 15.3. Patient reports that she has had surgery for rectal prolapse and continues to have intermittent rectal bleeding which could account for the uptake in the anal canal. Brain MRI performed 09/10/2023 showed no evidence of intracranial metastatic disease. She has contralateral supraclavicular lymph node, therefore she has extensive stage disease. The plan was made for her to have systemic chemotherapy with Cisplatin and Etoposide, along with radiation. This was discussed. MediPort was placed for administration of chemotherapy on 09/17. She was started on chemotherapy on 09/22. 2. Distress management. She is on Lexapro and lorazepam. She needs to talk to her PCP about changing her medication as it is not helping in her current situation. She started chemo on friday 09/22. She has now presented for evaluation of retrostrernal non radiating chest pain and nausea/vomiting diarrhea that started 2 days ago. She also had productive cough and shortness of breath. She has been diagnosed with a UTI. PLAN: Stool studies have been sent. She is being treated with antiemetics and gentle hydration. She is on antibiotics for the UTI. Would continue supportive care. Expect symptoms to resolve over the next couple of days. Patient is having a hard time managing her situation, would request a psyche consult, while she is here. Thank you for the consult, Will follow along with you, CC: Dr. Person. - Time Spent With Patient Time Spent with Patient (in minutes): 30
[2023-09-29] VITALS (9 sets, daily range): BP systolic 142–186; BP diastolic 77–97; PULSE 71–78; RESP 16–20; TEMP 36–36.4; O2SAT 92–95
[2023-09-29] MEDS: 0.9 % Sodium Chloride 1,000 ML 80 ML IVCONT ×2 (01:01→14:09)
[2023-09-29] MEDS: oxyCODONE HCl Immed Release 5 MG TABLET PO (03:24)
[2023-09-29] MEDS: Omeprazole 20 MG CAPSULE.DR PO (06:11)
--- NOTE | 2023-09-29 06:36 | PC.NURSE ---
pt admitted to unit approx 21:30 09/28/2023. patient a&ox4, ambulating independently without assistance. gait is steady. patient on contact precautions for r/o C.Diff. specimen remains uncollected. Patient aware that a specimen is needed for a GI panel and C.Diff r/o. Patient had BM this morning, but the hat also caught urine so stool was not able to be sent down to lab. stool was not liquid, more formed but not hard. patient c/o headache upon arrival to unit, tylenol given per JUN. Patient stated no relief and medicated with oxycodone PRN in the morning hours. patient reports effective relief. patient continues to be weepy and cry whenever asked how they are doing. Patient is not coping well with ineffective coping mechanisms. RN educated patient on some therapeutic things she may do and some breathing exercises for anxiety, patient not open to try and refused. patient remains on clear liquid diet which patient is unhappy about. patient denies SOB or difficulty breathing, remains on RA. All needs met, call miller within reach. safety and comfort maintained.
[2023-09-29 06:47] LABS: Anion Gap 12 (12-20); Blood Urea Nitrogen 16 mg/dL (9-16); Carbon Dioxide 22 mmol/L (22-29); Chloride 94 mmol/L (96-108); Creatinine Clr Calc Pharmacy 65.1; Estimated Glomerular Filt Rate > 60; Glucose Random 86 mg/dL (60-115); Potassium 3.9 mmol/L (3.3-5.1); Sodium 124 mmol/L (135-145)
[2023-09-29 06:49] LABS: Basophils Percent Auto 0.8 % (0-2); Eosinophils Percent Auto 1.1 % (0-4); Hemoglobin 9.4 g/dl (12.0-16.0); Imm Gran Abs Auto 0.12 X10*3/uL (0.00-0.03); Imm Gran Pct Auto 3.3 % (0.0-0.4); Lymphocytes Absolute Auto 0.4 X10*3/uL (1.2-4.9); Lymphocytes Percent Auto 11.4 % (20-40); MANUAL DIFF FLAG SCAN; Mean Corpuscular HGB Conc 33.6 g/dl (31.0-35.0); Mean Corpuscular Hemoglobin 26.9 pg (27.0-33.0); Monocytes Percent Auto 0.3 % (2-11); Neutrophils Absolute Auto 3.1 x10*3/uL (2.0-8.3); Neutrophils Percent Auto 83.1 % (45-73); Red Cell Distribution Width 14.3 % (11.0-16.0); SCAN SMEAR FLAG 1; White Blood Count 3.7 X10*3/uL (4.8-10.8)
[2023-09-29 07:35] LABS: Mean Platelet Volume 9.1 fL (9.4-12.3); Platelet Count 98 X10*3/uL (160-400); SLIDE REVIEW VERIFIED
[2023-09-29] MEDS: LORazepam 1 MG TABLET PO ×2 (08:11→20:53)
[2023-09-29] MEDS: Sodium Chloride Tab 1 GM TABLET 2 GM PO ×2 (08:12→14:56)
[2023-09-29] MEDS: Cholecalciferol (Vitamin D3) 25 MCG TABLET 50 MCG PO (08:12)
[2023-09-29] MEDS: Tolterodine Tartrate LA 4 MG CAP.ER.24H PO (08:12)
[2023-09-29] MEDS: Metoclopramide HCl 5 MG TABLET PO ×3 (08:12→20:53)
[2023-09-29] MEDS: Losartan Potassium 25 MG TABLET PO (08:12)
[2023-09-29] MEDS: Metoprolol Succinate ER 50 MG TAB.ER.24H PO (08:13)
[2023-09-29] MEDS: Escitalopram Oxalate 20 MG TABLET PO (08:13)
[2023-09-29] MEDS: 0.9 % Sodium Chloride Flush 3 ML SYRINGE IVFLUSH ×3 (08:15→20:59)
[2023-09-29] MEDS: Tiotropium Bromide 2.5 mcg 1 PUFF/2.5 MCG MIST.INHAL 2 PUFF INHALE (08:58)
[2023-09-29] MEDS: Budesonide 180 MCG AER.POW.BA 2 PUFF INHALE ×2 (08:58→20:42)
--- NOTE | 2023-09-29 09:01 | PM.CNNEP ---
History of Present Illness Reason for Consult Consult date: 09/29/23 Chief Complaint Chief complaint: sob, chest pain, n/v History of Present Illness Narrative: 62 yo female with history of IVDA, history of hepatitis-C, COPD, HTN, HLD, anemia, GERD, IBS, gastroparesis, anxiety, depression with recent admission to [facility] from 08/23-09/04 where she was diagnosed with small cell lung cancer with post obstructive pneumonia and SIADH presented to the ED for evaluation of retrostrernal non radiating chest pain and nausea/vomiting diarrhea that started 2 days ago, started chemo on thursday. she follows with Dr. James had PET scan showing L and R supraclavicular node, paratracheal /mediastinal. negative brain MRI. She reports ongoing productive cough and shortness of breath without change in quality or severity. No weight gain or orthopnea. Denies anorexia, prior to today has been eating and drinking without difficult. Sodium was 127 on admission Review of Systems Constitutional: Denies fever(s) and Denies weight loss Cardiovascular: Denies chest pain Respiratory: Denies hemoptysis Gastrointestinal: Denies abdominal pain, Denies diarrhea and Denies nausea Musculoskeletal: Denies back pain Denies focal weakness PMFSH Past Medical History Medical History COPD (chronic obstructive pulmonary disease) Small cell lung cancer (~08/2023) MDD (major depressive disorder), recurrent episode, moderate Abnormal CT scan, chest Mass of right lung Lung mass Bronchitis Rectal prolapse Nicotine dependence, cigarettes, uncomplicated Nonrheumatic mitral (valve) insufficiency Pulmonary nodule History of hepatitis C Osteopenia (~2011) IV drug user Endocarditis of mitral valve (~11/2017) Mitral valve prolapse Mitral regurgitation Early satiety Paresthesia of left leg Allergic rhinitis Facet arthritis of lumbar region Cervical spondylosis Vitamin D deficiency Pure hypercholesterolemia Benign essential hypertension GERD (gastroesophageal reflux disease) Anxiety Family History Family History Father Internal bleeding Mother Medical history unknown Surgical History Surgical History History of bronchoscopy (~2023) History of liver biopsy (~2009) History of partial colectomy (~2014) History of hysteroscopy (~2010) History of colonoscopy (~2018) Social History Social History Household Members: None Housing: House Housing Other:: lives alone with her cat Malena Do you presently have visiting nurse or other home services: No Alcohol intake: former Patient Tobacco Use Status: Never used Tobacco Tobacco use type: Cigarette Cigarette Packs Per Day: 0.5 Years Smoked: 45 years (onset 15, 1/2-3/4ppd x 45yrs, 28pyh) Smoked in Last 30 Days: Yes e-Cigarette/Vaping Use: Never Used Patient Interested in Nicotine Replacement: Yes Patient Given Instructions on How to Stop Smoking: Yes Date Education Initiated: 09/28/23 Second Hand Smoke Exposure: Yes Use of substances other than those prescribed or required for medical reasons: No Substance Use Type: Marijuana Currently Displaying Signs/Symptoms of Drug Intoxication Withdrawal: No Any prior treatment program specific to substance use: No Have you been hit, kicked, punched, or otherwise hurt by someone within the past year? If so, by whom?: No Do you feel safe in your current relationship?: No Is there a partner from a previous relationship who is making you feel unsafe now?: No Are you made to feel afraid or neglected: No Advance Directives: Yes Advance Directives on File: Yes Advance Directives Date on File: 12/18/21 Do you have a plan to hurt others: No Plan Recently lost weight without trying: Unsure How much weight loss: Unsure Eating poorly because of decreased appetite: Yes Nutrition screen score: 5 Nutrition Risks: No Nutritional Risk Patient : No : No Poor oral hygiene: No service: No Current occupational status: unemployed Sexual orientation: Straight/Heterosexual Gender identity: Female Cognitive needs: No Hearing needs: No Vision needs: Yes Meds Allergies Allergy/AdvReac Type Severity Reaction Status Date / Time No Known Allergies Allergy Unknown unknown Verified 09/28/23 09:37 [NO KNOWN ALLERGIES] Active Medications: Current Medications Acetaminophen (Acetaminophen 325 Mg Tablet) 650 mg PO Q6H PRN PRN Reason: Pain, Mild (Pain Scale 1-3), fever or headache Last Admin: 09/28/23 21:35 Dose: 650 mg Albuterol Sulfate (Albuterol Sulfate 90 Mcg 8 Gm Inhaler) 1 puff INHALE Q6H PRN PRN Reason: shortness of breath or wheezing Budesonide (Budesonide 180 Mcg Aer.Pow.Ba) 2 puff INHALE RBID [facility] Last Admin: 09/29/23 08:58 Dose: 2 puff Calcium Carbonate (Calcium Carbonate 750 Mg Tab.Chew) 750 mg PO Q4H PRN PRN Reason: Heartburn Enoxaparin Sodium (Enoxaparin Sodium 40 Mg/0.4 Ml Syringe) 40 mg SUBCUT Q24H [facility] Last Admin: 09/28/23 16:11 Dose: 40 mg Escitalopram Oxalate (Escitalopram Oxalate 20 Mg Tablet) 20 mg PO DAILY [facility] Last Admin: 09/29/23 08:13 Dose: 20 mg Fluticasone Propionate (Fluticasone Propionate Nasal 16 Gm [place]) 1 spray NOSTRIL-B DAILY [facility] Guaifenesin/Dextromethorphan (Guaifenesin Dm 100/10/5 Ml 5 Ml Syrup) 10 ml PO TID PRN PRN Reason: cough Hydroxyzine HCl (Hydroxyzine Hcl 50 Mg Tablet) 50 mg PO BEDTIME [facility] Last Admin: 09/28/23 21:34 Dose: 50 mg Sodium Chloride (Ns) 1,000 mls @ 80 mls/hr IVCONT .[id number] [facility] Last Admin: 09/29/23 01:01 Dose: 80 mls/hr Ceftriaxone Sodium 1 gm/ (Sodium Chloride) 50 mls @ 100 mls/hr IV Q24H [facility] Lorazepam (Lorazepam 1 Mg Tablet) 1 mg PO BID [facility] Last Admin: 09/29/23 08:11 Dose: 1 mg Losartan Potassium (Losartan Potassium 25 Mg Tablet) 25 mg PO DAILY@0900 [facility]; Protocol Last Admin: 09/29/23 08:12 Dose: 25 mg Magnesium Hydroxide (Milk Of Magnesia 30 Ml Oral.Susp) 30 ml PO DAILY PRN PRN Reason: Constipation Melatonin (Melatonin 3 Mg Tablet) 6 mg PO BEDTIME PRN PRN Reason: Insomnia Metoclopramide HCl (Metoclopramide Hcl 5 Mg Tablet) 5 mg PO TID [facility] Last Admin: 09/29/23 08:12 Dose: 5 mg Metoprolol Succinate (Metoprolol Succinate Er 50 Mg Tab.Er.24h) 50 mg PO DAILY [facility]; Protocol Last Admin: 09/29/23 08:13 Dose: 50 mg Mirtazapine (Mirtazapine 30 Mg Tablet) 30 mg PO BEDTIME [facility] Last Admin: 09/28/23 21:35 Dose: 30 mg Morphine Sulfate (Morphine Sulfate 2 Mg/Ml Cartridge) 2 mg IVPUSH Q4H PRN; Protocol PRN Reason: Pain, Severe (Pain Scale 7-10) Nicotine (Nicotine 14 Mg Patch.Td24) 14 mg TRANSDERMA Q24H [facility] Last Admin: 09/28/23 16:14 Dose: 14 mg Non-Formulary Medication (Alosetron) 1 mg PO DAILY@09 [facility] Omeprazole (Omeprazole 20 Mg Capsule.Dr) 20 mg PO DAILY@06 [facility] Last Admin: 09/29/23 06:11 Dose: 20 mg Ondansetron HCl (Ondansetron Hcl 4 Mg/2 Ml Vial) 4 mg IVPUSH Q8H PRN PRN Reason: Nausea and Vomiting Oxycodone HCl (Oxycodone Hcl Immed Release 5 Mg Tablet) 5 mg PO DAILY PRN PRN Reason: Pain, Moderate(Pain Scale 4-6) Last Admin: 09/29/23 03:24 Dose: 5 mg Sodium Chloride (0.9 % Sodium Chloride Flush 3 Ml Syringe) 3 ml IVFLUSH QSHIFT [facility] Last Admin: 09/29/23 08:15 Dose: 3 ml Sodium Chloride (Sodium Chloride Tab 1 Gm Tablet) 2 gm PO TID [facility] Last Admin: 09/29/23 08:12 Dose: 2 gm Sucralfate (Sucralfate 1 Gm Tablet) 4 gm PO DAILY@1200 [facility] Tiotropium [place] (Tiotropium [place] 2.5 Mcg 1 Puff/2.5 Mcg Mist.Inhal) 2 puff INHALE RDAILY [facility] Last Admin: 09/29/23 08:58 Dose: 2 puff Tolterodine Tartrate (Tolterodine Tartrate [place] 4 Mg Cap.Er.24h) 4 mg PO DAILY@0900 [facility] Last Admin: 09/29/23 08:12 Dose: 4 mg Vitamin D (Cholecalciferol (Vitamin D3) 25 Mcg Tablet) 50 mcg PO DAILY@09 [facility] Last Admin: 09/29/23 08:12 Dose: 50 mcg Home Medications ?Medication ?Instructions ?Recorded ?Confirmed ?Last Taken ?Type alosetron 0.5 mg tablet 1 mg PO DAILY@0907/22/23 09/28/23 09/28/23 History cholecalciferol (vitamin D3) 50 50 mcg PO DAILY@0900 07/22/23 09/28/23 09/28/23 History mcg (2,000 unit) capsule pantoprazole 40 mg tablet,delayed 40 mg PO DAILY@0630 07/22/23 09/28/23 09/28/23 History release solifenacin 10 mg tablet 10 mg PO DAILY@0900 07/22/23 09/28/23 09/28/23 History tiotropium bromide 18 mcg capsule 1 cap inhalation DAILY@0900 copd 07/22/23 09/28/23 09/28/23 History with inhalation device (Spiriva with HandiHaler) sucralfate 1 gram tablet (Carafate) 4 g PO DAILY@1200 07/25/23 09/28/23 09/28/23 History budesonide 180 mcg/actuation 2 inh inhalation BID 09/28/23 09/28/23 09/28/23 History breath activated powder inhaler (Pulmicort Flexhaler) lorazepam 1 mg tablet 1 mg PO BID 09/28/23 09/28/23 09/28/23 History oxycodone 5 mg tablet 5 - 10 mg PO DAILY PRN pain 09/28/23 09/28/23 Unknown History Physical Exam Vital Signs: Last Vital Signs Temp 96.8 F 09/29/23 08:00 Pulse 72 09/29/23 08:59 Resp 16 09/29/23 08:59 BP 162/86 H 09/29/23 08:13 Pulse Ox 92 09/29/23 08:00 O2 Del Method Room Air 09/29/23 08:00 BMI result Body Mass Index 24.0 Awake. Comfortable. Neck is supple. Mucosa moist. Lungs bilateral scattered rhonchi. Heart S1-S2 heard no gallop. Abdomen soft. Extremities no edema. No involuntary movements. No myoclonus. Results Lab Results 09/29/23 05:53 09/29/23 05:53 Lab results: Chemistry 09/28/23 09/29/23 10:44 05:53 Sodium 127 L 124 L Potassium 3.6 3.9 Carbon Dioxide 22 22 BUN 17 H 16 Creatinine 0.68 0.69 Calcium 8.3 L D 8.0 L Hematology 09/28/23 09/29/23 10:44 05:53 WBC 5.9 3.7 L Hgb 9.9 L 9.4 L Plt Count 146 L D 98 L D Urinalysis 09/28/23 11:44 Urine Color Yellow Urine Appearance Turbid Urine pH 7.0 Ur Specific [place] 1.015 Urine Protein 100 (2+) H Urine Glucose (UA) Negative Urine Ketones Trace Urine Blood Small (1+) H Urine Nitrite Negative Ur Leukocyte Esterase Large (3+) H Urine RBC 11-20 H Urine WBC >50 H Ur Squamous Epith Cells 0-2 Hyaline Casts 0-2 Assessment and Plan (1) Hyponatremia: Status: Acute Plan Due to SIADH due to lung CA SSRI could be another contribuing factor causing decreased free water clearance Na is down to 124 Suggest Restrict FREE water intake/hypotonic fluids Add Salt tab 1 gm TID Add UREA powder 15 gm PO BID - mix with apple or orange juice Monitor serum sodium 1 4 hrs to avoid rapid correction Procedures Date of Service Date of Service: 09/29/23
--- NOTE | 2023-09-29 09:15 | P.PNIM_ITS ---
Subjective Subjective Date of Service: 09/29/23 Interval History: hungry Physical Exam 2 Vital Signs: Vital Signs: Last Vital Signs Temp 96.8 F 09/29/23 08:00 Pulse 72 09/29/23 08:59 Resp 16 09/29/23 08:59 BP 162/86 H 09/29/23 08:13 Pulse Ox 92 09/29/23 08:00 O2 Del Method Room Air 09/29/23 08:00 BMI result Body Mass Index 24.0 General: AO X 3, no acute distress Resp: CTA bilateral, no accessory muscles used CVS: S1,S2,RRR GI: soft, non tender, non distended Neuro: motor grossly intact, alert Psych: appropriate affect, appropriate insight Objective Data Active Medications Acetaminophen (Acetaminophen 325 Mg Tablet) 650 mg PO Q6H PRN PRN Reason: Pain, Mild (Pain Scale 1-3), fever or headache Last Admin: 09/28/23 21:35 Dose: 650 mg Documented By: RAQUEL Albuterol Sulfate (Albuterol Sulfate 90 Mcg 8 Gm Inhaler) 1 puff INHALE Q6H PRN PRN Reason: shortness of breath or wheezing Budesonide (Budesonide 180 Mcg Aer.Pow.Ba) 2 puff INHALE RBID [facility] Last Admin: 09/29/23 08:58 Dose: 2 puff Documented By: CECILIA Calcium Carbonate (Calcium Carbonate 750 Mg Tab.Chew) 750 mg PO Q4H PRN PRN Reason: Heartburn Enoxaparin Sodium (Enoxaparin Sodium 40 Mg/0.4 Ml Syringe) 40 mg SUBCUT Q24H [facility] Last Admin: 09/28/23 16:11 Dose: 40 mg Documented By: ADAIR Escitalopram Oxalate (Escitalopram Oxalate 20 Mg Tablet) 20 mg PO DAILY [facility] Last Admin: 09/29/23 08:13 Dose: 20 mg Documented By: JOSE Fluticasone Propionate (Fluticasone Propionate Nasal 16 Gm [place]) 1 spray NOSTRIL-B DAILY [facility] Guaifenesin/Dextromethorphan (Guaifenesin Dm 100/10/5 Ml 5 Ml Syrup) 10 ml PO TID PRN PRN Reason: cough Hydroxyzine HCl (Hydroxyzine Hcl 50 Mg Tablet) 50 mg PO BEDTIME [facility] Last Admin: 09/28/23 21:34 Dose: 50 mg Documented By: RAQUEL Sodium Chloride (Ns) 1,000 mls @ 80 mls/hr IVCONT .[id number] [facility] Last Admin: 09/29/23 01:01 Dose: 80 mls/hr Documented By: RAQUEL Ceftriaxone Sodium 1 gm/ (Sodium Chloride) 50 mls @ 100 mls/hr IV Q24H [facility] Lorazepam (Lorazepam 1 Mg Tablet) 1 mg PO BID [facility] Last Admin: 09/29/23 08:11 Dose: 1 mg Documented By: JOSE Losartan Potassium (Losartan Potassium 25 Mg Tablet) 25 mg PO DAILY@0900 [facility]; Protocol Last Admin: 09/29/23 08:12 Dose: 25 mg Documented By: JOSE Magnesium Hydroxide (Milk Of Magnesia 30 Ml Oral.Susp) 30 ml PO DAILY PRN PRN Reason: Constipation Melatonin (Melatonin 3 Mg Tablet) 6 mg PO BEDTIME PRN PRN Reason: Insomnia Metoclopramide HCl (Metoclopramide Hcl 5 Mg Tablet) 5 mg PO TID [facility] Last Admin: 09/29/23 08:12 Dose: 5 mg Documented By: JOSE Metoprolol Succinate (Metoprolol Succinate Er 50 Mg Tab.Er.24h) 50 mg PO DAILY [facility]; Protocol Last Admin: 09/29/23 08:13 Dose: 50 mg Documented By: JOSE Mirtazapine (Mirtazapine 30 Mg Tablet) 30 mg PO BEDTIME [facility] Last Admin: 09/28/23 21:35 Dose: 30 mg Documented By: RAQUEL Morphine Sulfate (Morphine Sulfate 2 Mg/Ml Cartridge) 2 mg IVPUSH Q4H PRN; Protocol PRN Reason: Pain, Severe (Pain Scale 7-10) Nicotine (Nicotine 14 Mg Patch.Td24) 14 mg TRANSDERMA Q24H [facility] Last Admin: 09/28/23 16:14 Dose: 14 mg Documented By: ADAIR Non-Formulary Medication (Alosetron) 1 mg PO DAILY@0900 [facility] Omeprazole (Omeprazole 20 Mg Capsule.Dr) 20 mg PO DAILY@0630 [facility] Last Admin: 09/29/23 06:11 Dose: 20 mg Documented By: RAQUEL Ondansetron HCl (Ondansetron Hcl 4 Mg/2 Ml Vial) 4 mg IVPUSH Q8H PRN PRN Reason: Nausea and Vomiting Oxycodone HCl (Oxycodone Hcl Immed Release 5 Mg Tablet) 5 mg PO DAILY PRN PRN Reason: Pain, Moderate(Pain Scale 4-6) Last Admin: 09/29/23 03:24 Dose: 5 mg Documented By: RAQUEL Sodium Chloride (0.9 % Sodium Chloride Flush 3 Ml Syringe) 3 ml IVFLUSH QSHIFT [facility] Last Admin: 09/29/23 08:15 Dose: 3 ml Documented By: JOSE Sodium Chloride (Sodium Chloride Tab 1 Gm Tablet) 2 gm PO TID [facility] Last Admin: 09/29/23 08:12 Dose: 2 gm Documented By: JOSE Sucralfate (Sucralfate 1 Gm Tablet) 4 gm PO DAILY@1200 [facility] Tiotropium [place] (Tiotropium [place] 2.5 Mcg 1 Puff/2.5 Mcg Mist.Inhal) 2 puff INHALE RDAILY [facility] Last Admin: 09/29/23 08:58 Dose: 2 puff Documented By: CECILIA Tolterodine Tartrate (Tolterodine Tartrate [place] 4 Mg Cap.Er.24h) 4 mg PO DAILY@0900 [facility] Last Admin: 09/29/23 08:12 Dose: 4 mg Documented By: JOSE Vitamin D (Cholecalciferol (Vitamin D3) 25 Mcg Tablet) 50 mcg PO DAILY@0900 [facility] Last Admin: 09/29/23 08:12 Dose: 50 mcg Documented By: JOSE Labs 09/29/23 05:53 09/29/23 05:53 Labs: Laboratory Results - last 24 hr 09/28/23 09/28/23 09/28/23 10:44 10:58 11:44 MCV 78.8 L MCH 27.3 MCHC 34.6 RDW 14.6 Plt Count 146 L D MPV 8.8 L Immature Gran % (Auto) 1.5 H Neut % (Auto) 81.4 H Lymph % (Auto) 15.6 L [place] % (Auto) 0.5 L Eos % (Auto) 0.7 Baso % (Auto) 0.3 Lymph # (Auto) 0.9 L [place] # (Auto) 0.0 L Eos # (Auto) 0.0 Baso # (Auto) 0.0 Abs Immat Gran (auto) 0.09 H Absolute Neuts (auto) 4.8 Absolute Nucleated RBC 0.000 Nucleated RBC % (auto) 0.0 Smear Tech's Comments VERIFIED Anion Gap 17 Estim Creat Clear Calc 66.0 Estimated GFR > 60 Random Glucose 99 Lactic Acid 0.9 Calcium 8.3 L D Magnesium 1.5 L Total Bilirubin 0.9 Direct Bilirubin 0.3 AST 19 ALT 10 Alkaline Phosphatase 56 Troponin I High Sens 14.8 D B-Natriuretic Peptide 458 H Total Protein 5.8 L Albumin 3.5 Lipase 9 Procalcitonin 0.02 Urine Color Yellow Urine Appearance Turbid Urine pH 7.0 Ur Specific [place] 1.015 Urine Protein 100 (2+) H Urine Glucose (UA) Negative Urine Ketones Trace Urine Blood Small (1+) H Urine Nitrite Negative Ur Leukocyte Esterase Large (3+) H Urine RBC 11-20 H Urine WBC >50 H Ur Squamous Epith Cells 0-2 Urine Bacteria 4+ Hyaline Casts 0-2 Influenza Type A (PCR) NEGATIVE Influenza Type B (PCR) NEGATIVE RSV RNA Qual (PCR) NEGATIVE SARS-CoV-2 RNA (RT-PCR) NEGATIVE 09/29/23 05:53 MCV 80.0 MCH 26.9 L MCHC 33.6 RDW 14.3 Plt Count 98 L D MPV 9.1 L Immature Gran % (Auto) 3.3 H Neut % (Auto) 83.1 H Lymph % (Auto) 11.4 L [place] % (Auto) 0.3 L Eos % (Auto) 1.1 Baso % (Auto) 0.8 Lymph # (Auto) 0.4 L [place] # (Auto) 0.0 L Eos # (Auto) 0.0 Baso # (Auto) 0.0 Abs Immat Gran (auto) 0.12 H Absolute Neuts (auto) 3.1 Absolute Nucleated RBC 0.000 Nucleated RBC % (auto) 0.0 Smear Tech's Comments VERIFIED Anion Gap 12 Estim Creat Clear Calc 65.1 Estimated GFR > 60 Random Glucose 86 Lactic Acid Calcium 8.0 L Magnesium Total Bilirubin Direct Bilirubin AST ALT Alkaline Phosphatase Troponin I High Sens B-Natriuretic Peptide Total Protein Albumin Lipase Procalcitonin Urine Color Urine Appearance Urine pH Ur Specific [place] Urine Protein Urine Glucose (UA) Urine Ketones Urine Blood Urine Nitrite Ur Leukocyte Esterase Urine RBC Urine WBC Ur Squamous Epith Cells Urine Bacteria Hyaline Casts Influenza Type A (PCR) Influenza Type B (PCR) RSV RNA Qual (PCR) SARS-CoV-2 RNA (RT-PCR) Microbiology Microbiology Results: Microbiology 09/28/23 Unknown Urine Culture - Preliminary Urine clean catch - Urine garcai top Gram negative bisi Assessment and Plan (1) Acute UTI: Status: Acute Plan 62F PMH COPD, IVDA, hepatitis-C, hypertension, hyperlipidemia, anemia, GERD, IBS, gastroparesis, mood disorder, 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 presented with nausea and vomiting Nausea vomiting due to chemotherapy Resolved, advanced diet Acute on chronic hyponatremia Due to 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 Sodium decreased from 127-124 Continue fluid restriction, sodium tablets Did not tolerate urea in the past Nephrology eval Monitor sodium levels Acute hypomagnesemia Replaced Acute UTI Ceftriaxone, follow-up cultures Small-cell lung cancer Follow up Oncology COPD Continue inhalers Hypertension Losartan, metoprolol GERD PPI DVT prophylaxis with heparin subQ Full code reason for continued hospitalization: Hyponatremia Quality Stroke Does the patient have a stroke diagnosis?: No VTE Prior VTE?: No VTE Risk Level:: Medical - moderate - high VTE Device Contraindication: Treatment Not Indicated VTE Drug Contraindication: N/A - Med Ordered
[2023-09-29] MEDS: Sucralfate 1 GM TABLET 4 GM PO (13:58)
[2023-09-29] MEDS: cefTRIAXone sodium 1 GM in 0.9 % Sodium Chloride 50 ML IV (13:58)
--- NOTE | 2023-09-29 14:40 | MHC.CM.PN ---
IMM 09/29/23, REY 09/29/23, PT NOW INPT D/T NA 124, CM MET W/PT WHO IS TEARFUL AND REPORTS SHE WAS SUPPOSED TO START RADIATION TODAY BUT GOT SICK AND CAME TO HOSPITAL, PT REPORTS SHE LIVES ALONE, DENIES USE OF DME/SERVICES, PT REPORTS SHE WOULD NOT WANT HOME SERVICES D/T HER HOUSE BEING A MESS BECAUSE SHE WAS GOING TO SELL IT AND MOVE IN WITH A FRIEND HOWEVER HER FRIEND . PT VERIFIES PCP/HCP ON FILE.
[2023-09-29] MEDS: Enoxaparin Sodium 40 MG/0.4 ML SYRINGE SUBCUT (14:56)
[2023-09-29] MEDS: Nicotine 14 MG PATCH.TD24 TRANSDERMA (14:57)
[2023-09-29 16:39] LABS: CDiff Gene PCR NEGATIVE (Negative)
[2023-09-29] MEDS: Morphine Sulfate 2 MG/ML CARTRIDGE IVPUSH (18:04)
[2023-09-29] MEDS: Calcium Carbonate 750 MG TAB.CHEW PO (18:08)
[2023-09-29] MEDS: Melatonin 3 MG TABLET 6 MG PO (20:53)
[2023-09-29] MEDS: hydrOXYzine HCL 50 MG TABLET PO (20:53)
[2023-09-29] MEDS: Mirtazapine 30 MG TABLET PO (20:53)
[2023-09-29] MEDS: ondansetron HCL 4 MG/2 ML VIAL IVPUSH (20:59)
[2023-09-30] MEDS: Morphine Sulfate 2 MG/ML CARTRIDGE IVPUSH ×3 (00:56→20:09)
[2023-09-30] MEDS: 0.9 % Sodium Chloride 1,000 ML 80 ML IVCONT (00:57)
[2023-09-30 03:19] VITALS: BP 140/79; PULSE 71; RESP 16; TEMP 36.6; O2SAT 94
--- NOTE | 2023-09-30 05:36 | PC.NURSE ---
pt a&ox3, found to be crying on all rounding of patient. patient making statements, I am going to , I am going to . Nobody cares, not even my kids care. RN using therapeutic communication to educate patient on coping mechanisms, patient not open to suggestions. pt continues to cry out intermittently in the room, not using the call miller, but awaiting the RN to overhear the crying. pain managed with PRN medication, see MAR. zofran given for n/v. still awaiting results of GI panel. pt c/o RUQ pain, relieved with zofran. continuous fluids running per order. patient refused sodium tablets HS, states, These make me throw up, I'm not taking them anymore. states concern for cat as there is no one to care for the cat while she is in the hospital. after seeing RT, patient c/o SOB and difficulty breathing, LSCTA, dim in the bases, o2 above 94% on RA. no s/s of respiratory distress. patient ambulating independently in the room without difficulty. call miller within reach, safety and comfort maintained. all needs met.
[2023-09-30] MEDS: Omeprazole 20 MG CAPSULE.DR PO (06:23)
[2023-09-30 06:42] LABS: Hematocrit 25.3 % (37.0-47.0); Hemoglobin 9.2 g/dl (12.0-16.0); Mean Corpuscular HGB Conc 36.4 g/dl (31.0-35.0); Mean Corpuscular Hemoglobin 27.8 pg (27.0-33.0); Mean Corpuscular Volume 76.4 fL (80.0-98.0); Mean Platelet Volume 9.2 fL (9.4-12.3); Platelet Count 70 X10*3/uL (160-400); Red Blood Count 3.31 X10*6/uL (4.20-5.50); Red Cell Distribution Width 13.6 % (11.0-16.0); White Blood Count 2.3 X10*3/uL (4.8-10.8)
[2023-09-30 06:54] VITALS: BP 172/90; PULSE 68; RESP 16; TEMP 36.6; O2SAT 96
[2023-09-30 07:01] LABS: Blood Urea Nitrogen 15 mg/dL (9-16); Calcium 7.8 mg/dL (8.4-10.2); Creatinine Clr Calc Pharmacy 65.1; Estimated Glomerular Filt Rate > 60; Glucose Fasting 89 mg/dL (60-99)
[2023-09-30 07:07] LABS: Anion Gap 14 (12-20)
[2023-09-30 07:31] LABS: Carbon Dioxide 18 mmol/L (22-29); Chloride 91 mmol/L (96-108); Potassium 3.2 mmol/L (3.3-5.1); Sodium 120 mmol/L (135-145)
[2023-09-30 08:09] LABS: Magnesium 1.4 mg/dL (1.6-2.6)
[2023-09-30 08:15] VITALS: BP 154/83; PULSE 68
[2023-09-30] MEDS: LORazepam 1 MG TABLET PO (08:15)
[2023-09-30] MEDS: Tolterodine Tartrate LA 4 MG CAP.ER.24H PO (08:15)
[2023-09-30] MEDS: Metoprolol Succinate ER 50 MG TAB.ER.24H PO (08:15)
[2023-09-30] MEDS: Metoclopramide HCl 5 MG TABLET PO ×3 (08:15→19:56)
[2023-09-30] MEDS: Sodium Chloride Tab 1 GM TABLET 2 GM PO ×4 (08:15→19:56)
[2023-09-30] MEDS: Cholecalciferol (Vitamin D3) 25 MCG TABLET 50 MCG PO (08:15)
[2023-09-30] MEDS: 0.9 % Sodium Chloride Flush 3 ML SYRINGE IVFLUSH ×3 (08:16→20:09)
[2023-09-30] MEDS: Potassium Chloride ER 20 MEQ TAB.ER.PRT PO (08:23)
[2023-09-30] MEDS: Magnesium Sulfate/H2O 2 GM/50 ML PIGGYBACK IV (08:51)
[2023-09-30] MEDS: ondansetron HCL 4 MG/2 ML VIAL IVPUSH (08:51)
[2023-09-30] MEDS: oxyCODONE HCl Immed Release 5 MG TABLET PO (09:06)
--- NOTE | 2023-09-30 10:35 | MHC.CM.PN ---
EMR REVIEWED, PT W/SOB/CHEST PAIN/NV AND SODIUM THAT CONT'S TO DECLINE AT 120 TODAY, PT ALSO WITH MAG 1.4, NO PLAN FOR DC AT THIS TIME, CM WILL CONT TO FOLLOW DC NEEDS.
[2023-09-30] MEDS: cefTRIAXone sodium 1 GM in 0.9 % Sodium Chloride 50 ML IV (12:19)
[2023-09-30] MEDS: Sucralfate 1 GM TABLET 4 GM PO (12:19)
[2023-09-30 12:59] LABS: Anion Gap 11 (12-20); Blood Urea Nitrogen 15 mg/dL (9-16); Calcium 8.1 mg/dL (8.4-10.2); Carbon Dioxide 21 mmol/L (22-29); Chloride 92 mmol/L (96-108); Creatinine Clr Calc Pharmacy 61.5; Estimated Glomerular Filt Rate > 60; Glucose Random 108 mg/dL (60-115); Potassium 3.3 mmol/L (3.3-5.1); Sodium 121 mmol/L (135-145)
--- NOTE | 2023-09-30 13:05 | P.PNIM_ITS ---
Subjective Subjective Date of Service: 09/30/23 Interval History: Seen and evaluated this morning Na of 120 this morning no other overnight events Review of Systems Review of Systems: Yes all other systems are reviewed and are negative Physical Exam 2 Vital Signs: Vital Signs: Last Vital Signs Temp 98 F 09/30/23 06:54 Pulse 68 09/30/23 08:15 Resp 16 09/30/23 06:54 BP 154/83 H 09/30/23 08:15 Pulse Ox 96 09/30/23 06:54 O2 Del Method Room Air 09/30/23 06:54 BMI result Body Mass Index 24.0 Const: Other: Constitutional : Awake, interactive, not in distress Neck : Normal inspection, Supple Cardiovascular : RRR, no JVP, no lower extremity edema Respiratory : good bilateral air entry, no crackles, wheezes or rhonchi Gastrointestinal: soft, lax, Normal bowel sounds, Non tender Skin : Warm, Dry Neurological : Alert & oriented x3, No focal deficit Objective Data Active Medications Acetaminophen (Acetaminophen 325 Mg Tablet) 650 mg PO Q6H PRN PRN Reason: Pain, Mild (Pain Scale 1-3), fever or headache Last Admin: 09/28/23 21:35 Dose: 650 mg Documented By: RAQEUL Albuterol Sulfate (Albuterol Sulfate 90 Mcg 8 Gm Inhaler) 1 puff INHALE Q6H PRN PRN Reason: shortness of breath or wheezing Budesonide (Budesonide 180 Mcg Aer.Pow.Ba) 2 puff INHALE RBID [facility] Last Admin: 09/30/23 08:30 Dose: Not Given Documented By: JEN Non-Admin Reason: Patient Refused Calcium Carbonate (Calcium Carbonate 750 Mg Tab.Chew) 750 mg PO Q4H PRN PRN Reason: Heartburn Last Admin: 09/29/23 18:08 Dose: 750 mg Documented By: JOSE Enoxaparin Sodium (Enoxaparin Sodium 40 Mg/0.4 Ml Syringe) 40 mg SUBCUT Q24H [facility] Last Admin: 09/29/23 14:56 Dose: 40 mg Documented By: JOSE Escitalopram Oxalate (Escitalopram Oxalate 20 Mg Tablet) 20 mg PO DAILY [facility] Last Admin: 09/29/23 08:13 Dose: 20 mg Documented By: JOSE Fluticasone Propionate (Fluticasone Propionate Nasal 16 Gm [place]) 1 spray NOSTRIL-B DAILY [facility] Last Admin: 09/29/23 10:17 Dose: Not Given Documented By: JOSE Non-Admin Reason: Med Not Available Guaifenesin/Dextromethorphan (Guaifenesin Dm 100/10/5 Ml 5 Ml Syrup) 10 ml PO TID PRN PRN Reason: cough Hydroxyzine HCl (Hydroxyzine Hcl 50 Mg Tablet) 50 mg PO BEDTIME [facility] Last Admin: 09/29/23 20:53 Dose: 50 mg Documented By: RAQUEL Ceftriaxone Sodium 1 gm/ (Sodium Chloride) 50 mls @ 100 mls/hr IV Q24H [facility] Last Admin: 09/30/23 12:19 Dose: 100 mls/hr Documented By: MASOUD Lorazepam (Lorazepam 1 Mg Tablet) 1 mg PO BID [facility] Last Admin: 09/30/23 08:15 Dose: 1 mg Documented By: MASOUD Losartan Potassium (Losartan Potassium 25 Mg Tablet) 25 mg PO DAILY@0900 [facility]; Protocol Last Admin: 09/29/23 08:12 Dose: 25 mg Documented By: JOSE Magnesium Hydroxide (Milk Of Magnesia 30 Ml Oral.Susp) 30 ml PO DAILY PRN PRN Reason: Constipation Melatonin (Melatonin 3 Mg Tablet) 6 mg PO BEDTIME PRN PRN Reason: Insomnia Last Admin: 09/29/23 20:53 Dose: 6 mg Documented By: RAQUEL Metoclopramide HCl (Metoclopramide Hcl 5 Mg Tablet) 5 mg PO TID [facility] Last Admin: 09/30/23 08:15 Dose: 5 mg Documented By: MASOUD Metoprolol Succinate (Metoprolol Succinate Er 50 Mg Tab.Er.24h) 50 mg PO DAILY [facility]; Protocol Last Admin: 09/30/23 08:15 Dose: 50 mg Documented By: MASOUD Mirtazapine (Mirtazapine 30 Mg Tablet) 30 mg PO BEDTIME [facility] Last Admin: 09/29/23 20:53 Dose: 30 mg Documented By: RAQUEL Morphine Sulfate (Morphine Sulfate 2 Mg/Ml Cartridge) 2 mg IVPUSH Q4H PRN; Protocol PRN Reason: Pain, Severe (Pain Scale 7-10) Last Admin: 09/30/23 06:22 Dose: 2 mg Documented By: RAQUEL Nicotine (Nicotine 14 Mg Patch.Td24) 14 mg TRANSDERMA Q24H [facility] Last Admin: 09/29/23 14:57 Dose: 14 mg Documented By: JOSE Non-Formulary Medication (Alosetron) 1 mg PO DAILY@0900 [facility] Omeprazole (Omeprazole 20 Mg Capsule.Dr) 20 mg PO DAILY@0630 [facility] Last Admin: 09/30/23 06:23 Dose: 20 mg Documented By: RAQUEL Ondansetron HCl (Ondansetron Hcl 4 Mg/2 Ml Vial) 4 mg IVPUSH Q8H PRN PRN Reason: Nausea and Vomiting Last Admin: 09/30/23 08:51 Dose: 4 mg Documented By: MASOUD Oxycodone HCl (Oxycodone Hcl Immed Release 5 Mg Tablet) 5 mg PO DAILY PRN PRN Reason: Pain, Moderate(Pain Scale 4-6) Last Admin: 09/30/23 09:06 Dose: 5 mg Documented By: ANDRY Prochlorperazine Edisylate (Prochlorperazine Edisylate 10 Mg/2 Ml Vial) 5 mg IVPUSH ONCE PRN PRN Reason: Nausea Sodium Chloride (0.9 % Sodium Chloride Flush 3 Ml Syringe) 3 ml IVFLUSH QSHIFT [facility] Last Admin: 09/30/23 08:16 Dose: 3 ml Documented By: MASOUD Sodium Chloride (Sodium Chloride Tab 1 Gm Tablet) 2 gm PO TID [facility] Last Admin: 09/30/23 08:15 Dose: 2 gm Documented By: MASOUD Sucralfate (Sucralfate 1 Gm Tablet) 4 gm PO DAILY@1200 [facility] Last Admin: 09/30/23 12:19 Dose: 4 gm Documented By: MASOUD Tiotropium [place] (Tiotropium [place] 2.5 Mcg 1 Puff/2.5 Mcg Mist.Inhal) 2 puff INHALE RDAILY [facility] Last Admin: 09/30/23 08:30 Dose: Not Given Documented By: JEN Non-Admin Reason: Patient Refused Tolterodine Tartrate (Tolterodine Tartrate [place] 4 Mg Cap.Er.24h) 4 mg PO DAILY@0900 [facility] Last Admin: 09/30/23 08:15 Dose: 4 mg Documented By: MASOUD Vitamin D (Cholecalciferol (Vitamin D3) 25 Mcg Tablet) 50 mcg PO DAILY@0900 [facility] Last Admin: 09/30/23 08:15 Dose: 50 mcg Documented By: MASOUD Labs 09/30/23 05:50 09/30/23 12:41 Labs: Laboratory Results - last 24 hr 09/29/23 09/30/23 09/30/23 13:32 05:50 12:41 MCV 76.4 L MCH 27.8 MCHC 36.4 H RDW 13.6 Plt Count 70 L D MPV 9.2 L Absolute Nucleated RBC 0.000 Nucleated RBC % (auto) 0.0 Anion Gap 14 11 L Estim Creat Clear Calc 65.1 61.5 Estimated GFR > 60 > 60 Random Glucose 108 Fasting Glucose 89 Calcium 7.8 L 8.1 L Magnesium 1.4 L* C. difficile Tox B Gene NEGATIVE Microbiology Microbiology Results: Microbiology 09/28/23 10:58 Blood Culture - Preliminary Blood - Venous No growth after 48 hours. 09/28/23 10:44 Blood Culture - Preliminary Blood - Venous No growth after 48 hours. 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 presented with nausea and vomiting Nausea vomiting due to chemotherapy Improved but still gets nauseated Reglan atc PRN Zofran advanced diet Acute on chronic hyponatremia Due to 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 Sodium decreased to 120 Continue fluid restriction, sodium tablets Add urea even though she could not tolerate urea in the past Nephrology following Monitor sodium levels Acute hypomagnesemia Give IV Replacement Acute UTI Klebsiella in urine Ceftriaxone IV Small-cell lung cancer Follow up Oncology COPD Continue inhalers Hypertension Losartan, metoprolol GERD PPI DVT prophylaxis with heparin subQ Full code reason for continued hospitalization: severe Hyponatremia Quality Stroke Does the patient have a stroke diagnosis?: No VTE Prior VTE?: No VTE Risk Level:: Medical - moderate - high VTE Device Contraindication: Treatment Not Indicated VTE Drug Contraindication: N/A - Med Ordered
--- NOTE | 2023-09-30 13:21 | P.PNNP_ITS ---
Subjective Subjective Date of Service: 09/30/23 Interval history: Seen and evaluated this morning ;no other overnight events Physical Exam 2 Vital Signs: Vital Signs: Last Vital Signs Temp 98 F 09/30/23 06:54 Pulse 68 09/30/23 08:15 Resp 16 09/30/23 06:54 BP 154/83 H 09/30/23 08:15 Pulse Ox 96 09/30/23 06:54 O2 Del Method Room Air 09/30/23 06:54 BMI result Body Mass Index 24.0 Const: General: no acute distress Eyes: EOM: EOMs intact bilaterally Resp: Auscultation: diminished lung sounds Cardio: Rate: regular rate GI: Palpation (GI): Soft to palpation Neuro: General: moves all extremities Objective Data Labs 09/30/23 05:50 09/30/23 12:41 Labs: Laboratory Results - last 24 hr 09/29/23 09/30/23 09/30/23 13:32 05:50 12:41 WBC 2.3 L RBC 3.31 L Hgb 9.2 L Hct 25.3 L MCV 76.4 L MCH 27.8 MCHC 36.4 H RDW 13.6 Plt Count 70 L D MPV 9.2 L Absolute Nucleated RBC 0.000 Nucleated RBC % (auto) 0.0 Sodium 120 L* 121 L Potassium 3.2 L 3.3 Chloride 91 L 92 L Carbon Dioxide 18 L 21 L Anion Gap 14 11 L BUN 15 15 Creatinine 0.69 0.73 Estim Creat Clear Calc 65.1 61.5 Estimated GFR > 60 > 60 Random Glucose 108 Fasting Glucose 89 Calcium 7.8 L 8.1 L Magnesium 1.4 L* C. difficile Tox B Gene NEGATIVE Microbiology Microbiology Results: Microbiology 09/28/23 10:58 Blood - Venous Blood Culture - Preliminary No growth after 48 hours. 09/28/23 10:44 Blood - Venous Blood Culture - Preliminary No growth after 48 hours. 09/28/23 Unknown Urine clean catch - Urine garcia top Urine Culture - Final Klebsiella pneumoniae Procedures Date of Service Date of Service: 09/30/23 Assessment & Plan Assessment and plan (1) Hyponatremia: Status: Acute Plan Hyponatremia due to excess ADH Could not tolerate oral urea Na is down to 121 Continue current dosage of oral sodium chloride Needs fluid restriction. Monitor serum sodium closely to avoid rapid correction Progress Note: Quality Stroke Does the patient have a stroke diagnosis?: No
--- NOTE | 2023-09-30 13:57 | PM.PSYCN ---
History of Present Illness Date of Service: 09/30/2023 Chief Complaint: sob, chest pain, n/v Reason for Consult: anxiety/depression Discussed with referring provider: Yes Sources of Information: patient interviewed, chart reviewed and crisis/core team assessment reviewed HPI Narrative: Mrs. Medina is a 63 year-old woman recently dx with Stage 3 Lung carcinoma undergoing chemotherapy. Pt currently admitted for hyponatremia. Psychiatry asked to assess pt due to increase anxious mood and depression in context of new dx of cancer. Pt seen in her room. She presents as calm and cooperative. She reports feeling scared especially as not knowing what to expect with treatment and new diagnosis. She reports feeling particularly scared to . She reports feeling anxious. She does report hx of depression but reports her anxiety has increased recently after diagnosis. She denies SI/HI. She reports ativan partially helpful but not completely. She has been on lexapro for several years. She reports remeron was added recently for sleep. Note that both antidepressants are at high doses, therefore some concern in terms of serotonin overload, although she does not seem to show signs of this including myoclonus, sweatiness, restlessness and/or hyperthermia. Past Psychiatric History: denies hx of SA/SIB. denies hx of inpatient psychiatric hospitalizations. hx of two detox admissions. hx of outpatient therapist and psychiatrist; stopped in 2014. [facility] Medical History COPD (chronic obstructive pulmonary disease) Small cell lung cancer (~08/2023) MDD (major depressive disorder), recurrent episode, moderate Abnormal CT scan, chest Mass of right lung Lung mass Bronchitis Rectal prolapse Nicotine dependence, cigarettes, uncomplicated Nonrheumatic mitral (valve) insufficiency Pulmonary nodule History of hepatitis C Osteopenia (~2011) IV drug user Endocarditis of mitral valve (~11/2017) Mitral valve prolapse Mitral regurgitation Early satiety Paresthesia of left leg Allergic rhinitis Facet arthritis of lumbar region Cervical spondylosis Vitamin D deficiency Pure hypercholesterolemia Benign essential hypertension GERD (gastroesophageal reflux disease) Anxiety Surgical History History of bronchoscopy (~2023) History of liver biopsy (~2009) History of partial colectomy (~2014) History of hysteroscopy (~2010) History of colonoscopy (~2017) Family History: unknown Social History: Lives alone at home, single, 2 daughters (26 and 32 y/o), 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 Trauma History: denies Diagnostics Vital Signs (24Hr): Vital Signs - 24 hr 09/29/23 15:54 09/29/23 19:22 09/29/23 20:44 Temperature 97.3 F 97.6 F Pulse Rate 78 73 73 Respiratory Rate 18 18 20 Blood Pressure 181/97 H 154/77 H Pulse Oximetry 95 95 Oxygen Delivery Method Room Air Room Air 09/30/23 03:19 09/30/23 06:54 09/30/23 08:15 Temperature 97.8 F 98 F Pulse Rate 71 68 68 Respiratory Rate 16 16 Blood Pressure 140/79 H 172/90 H 154/83 H Pulse Oximetry 94 96 Oxygen Delivery Method Room Air Room Air BMI result Body Mass Index 24.0 Labs 10/01/23 07:48 10/02/23 05:55 Labs: Laboratory Results - last 48 hr 09/29/23 09/29/23 09/30/23 05:53 13:32 05:50 WBC 3.7 L 2.3 L RBC 3.50 L 3.31 L Hgb 9.4 L 9.2 L Hct 28.0 L 25.3 L MCV 80.0 76.4 L MCH 26.9 L 27.8 MCHC 33.6 36.4 H RDW 14.3 13.6 Plt Count 98 L D 70 L D MPV 9.1 L 9.2 L Immature Gran % (Auto) 3.3 H Neut % (Auto) 83.1 H Lymph % (Auto) 11.4 L [place] % (Auto) 0.3 L Eos % (Auto) 1.1 Baso % (Auto) 0.8 Lymph # (Auto) 0.4 L [place] # (Auto) 0.0 L Eos # (Auto) 0.0 Baso # (Auto) 0.0 Abs Immat Gran (auto) 0.12 H Absolute Neuts (auto) 3.1 Absolute Nucleated RBC 0.000 0.000 Nucleated RBC % (auto) 0.0 0.0 Smear Tech's Comments VERIFIED Sodium 124 L 120 L* Potassium 3.9 3.2 L Chloride 94 L 91 L Carbon Dioxide 22 18 L Anion Gap 12 14 BUN 16 15 Creatinine 0.69 0.69 Estim Creat Clear Calc 65.1 65.1 Estimated GFR > 60 > 60 Random Glucose 86 Fasting Glucose 89 Calcium 8.0 L 7.8 L Magnesium 1.4 L* C. difficile Tox B Gene NEGATIVE 09/30/23 12:41 WBC RBC Hgb Hct MCV MCH MCHC RDW Plt Count MPV Immature Gran % (Auto) Neut % (Auto) Lymph % (Auto) [place] % (Auto) Eos % (Auto) Baso % (Auto) Lymph # (Auto) [place] # (Auto) Eos # (Auto) Baso # (Auto) Abs Immat Gran (auto) Absolute Neuts (auto) Absolute Nucleated RBC Nucleated RBC % (auto) Smear Tech's Comments Sodium 121 L Potassium 3.3 Chloride 92 L Carbon Dioxide 21 L Anion Gap 11 L BUN 15 Creatinine 0.73 Estim Creat Clear Calc 61.5 Estimated GFR > 60 Random Glucose 108 Fasting Glucose Calcium 8.1 L Magnesium C. difficile Tox B Gene Imaging Radiology Impressions: ITS Impressions Chest X-Ray 09/28/23 10:02 IMPRESSION: Right upper lobe mass with partial right upper lobe collapse/consolidation. There may be mild improvement when compared to the recent study. Chest CTA 09/28/23 12:07 IMPRESSION: 1. No evidence of pulmonary emboli. 2. Right suprahilar mass with associated adenopathy and collapse of the right upper lobe. Mediastinal adenopathy appears slightly improved. VTE: negative. Medications Medications Current Medications Acetaminophen (Acetaminophen 325 Mg Tablet) 650 mg PO Q6H PRN PRN Reason: Pain, Mild (Pain Scale 1-3), fever or headache Last Admin: 09/28/23 21:35 Dose: 650 mg Albuterol Sulfate (Albuterol Sulfate 90 Mcg 8 Gm Inhaler) 1 puff INHALE Q6H PRN PRN Reason: shortness of breath or wheezing Budesonide (Budesonide 180 Mcg Aer.Pow.Ba) 2 puff INHALE RBID MANUEL Last Admin: 09/30/23 08:30 Dose: Not Given Calcium Carbonate (Calcium Carbonate 750 Mg Tab.Chew) 750 mg PO Q4H PRN PRN Reason: Heartburn Last Admin: 09/29/23 18:08 Dose: 750 mg Clonazepam (Clonazepam 0.5 Mg Tablet) 0.5 mg PO BID [facility] Enoxaparin Sodium (Enoxaparin Sodium 40 Mg/0.4 Ml Syringe) 40 mg SUBCUT Q24H [facility] Last Admin: 09/29/23 14:56 Dose: 40 mg Escitalopram Oxalate (Escitalopram Oxalate 20 Mg Tablet) 20 mg PO DAILY [facility] Last Admin: 09/29/23 08:13 Dose: 20 mg Fluticasone Propionate (Fluticasone Propionate Nasal 16 Gm [place]) 1 spray NOSTRIL-B DAILY [facility] Last Admin: 09/30/23 13:43 Dose: Not Given Guaifenesin/Dextromethorphan (Guaifenesin Dm 100/10/5 Ml 5 Ml Syrup) 10 ml PO TID PRN PRN Reason: cough Hydroxyzine HCl (Hydroxyzine Hcl 50 Mg Tablet) 50 mg PO BEDTIME [facility] Last Admin: 09/29/23 20:53 Dose: 50 mg Ceftriaxone Sodium 1 gm/ (Sodium Chloride) 50 mls @ 100 mls/hr IV Q24H [facility] Last Infusion: 09/30/23 13:44 Dose: Infused Losartan Potassium (Losartan Potassium 25 Mg Tablet) 25 mg PO DAILY@0900 [facility]; Protocol Last Admin: 09/29/23 08:12 Dose: 25 mg Magnesium Hydroxide (Milk Of Magnesia 30 Ml Oral.Susp) 30 ml PO DAILY PRN PRN Reason: Constipation Melatonin (Melatonin 3 Mg Tablet) 6 mg PO BEDTIME PRN PRN Reason: Insomnia Last Admin: 09/29/23 20:53 Dose: 6 mg Metoclopramide HCl (Metoclopramide Hcl 5 Mg Tablet) 5 mg PO TID [facility] Last Admin: 09/30/23 08:15 Dose: 5 mg Metoprolol Succinate (Metoprolol Succinate Er 50 Mg Tab.Er.24h) 50 mg PO DAILY [facility]; Protocol Last Admin: 09/30/23 08:15 Dose: 50 mg Mirtazapine (Mirtazapine 30 Mg Tablet) 30 mg PO BEDTIME [facility] Last Admin: 09/29/23 20:53 Dose: 30 mg Morphine Sulfate (Morphine Sulfate 2 Mg/Ml Cartridge) 2 mg IVPUSH Q4H PRN; Protocol PRN Reason: Pain, Severe (Pain Scale 7-10) Last Admin: 09/30/23 06:22 Dose: 2 mg Nicotine (Nicotine 14 Mg Patch.Td24) 14 mg TRANSDERMA Q24H [facility] Last Admin: 09/29/23 14:57 Dose: 14 mg Non-Formulary Medication (Alosetron) 1 mg PO DAILY@0900 [facility] Omeprazole (Omeprazole 20 Mg Capsule.Dr) 20 mg PO DAILY@0630 [facility] Last Admin: 09/30/23 06:23 Dose: 20 mg Ondansetron HCl (Ondansetron Hcl 4 Mg/2 Ml Vial) 4 mg IVPUSH Q8H PRN PRN Reason: Nausea and Vomiting Last Admin: 09/30/23 08:51 Dose: 4 mg Oxycodone HCl (Oxycodone Hcl Immed Release 5 Mg Tablet) 5 mg PO DAILY PRN PRN Reason: Pain, Moderate(Pain Scale 4-6) Last Admin: 09/30/23 09:06 Dose: 5 mg Prochlorperazine Edisylate (Prochlorperazine Edisylate 10 Mg/2 Ml Vial) 5 mg IVPUSH ONCE PRN PRN Reason: Nausea Sodium Chloride (0.9 % Sodium Chloride Flush 3 Ml Syringe) 3 ml IVFLUSH QSHIFT [facility] Last Admin: 09/30/23 08:16 Dose: 3 ml Sodium Chloride (Sodium Chloride Tab 1 Gm Tablet) 2 gm PO TID [facility] Last Admin: 09/30/23 08:15 Dose: 2 gm Sucralfate (Sucralfate 1 Gm Tablet) 4 gm PO DAILY@1200 [facility] Last Admin: 09/30/23 12:19 Dose: 4 gm Tiotropium [place] (Tiotropium [place] 2.5 Mcg 1 Puff/2.5 Mcg Mist.Inhal) 2 puff INHALE RDAILY [facility] Last Admin: 09/30/23 08:30 Dose: Not Given Tolterodine Tartrate (Tolterodine Tartrate [place] 4 Mg Cap.Er.24h) 4 mg PO DAILY@0900 [facility] Last Admin: 09/30/23 08:15 Dose: 4 mg Vitamin D (Cholecalciferol (Vitamin D3) 25 Mcg Tablet) 50 mcg PO DAILY@0900 [facility] Last Admin: 09/30/23 08:15 Dose: 50 mcg Allergies Allergies Allergy/AdvReac Type Severity Reaction Status Date / Time No Known Allergies Allergy Unknown unknown Verified 09/28/23 09:37 [NO KNOWN ALLERGIES] Assessment & Plan Assessment & Plan (1) Adjustment disorder with mixed anxiety and depressed mood: Status: Acute Code(s): F43.23 - Adjustment disorder with mixed anxiety and depressed mood Plan Mrs. Medina is a 63 year-old woman with recent hx of stage 3 small cell lung carcinoma. She is undergoing chemotherapy reports increased depression and anxious mood. Ativan partially helpful. We discussed switching ativan to clonazepam- as it may better control anxious and overwhelming feelings. No SI/HI.Note that pt is currently on 2 serotonergic antidepressant- no obvious s/s of serotoning overload but both medications lexapro and remeron are at high doses. Caution adding serotonergic agents including tramadol. Discuss with her attending that hyponatremia may be multifactorial and he also wonders if antidepressant may have some effect. If this is the case, can keep one antidepressant- I would recommend probably to taper gradually lexapro and continue remeron. For now- dc ativan and start clonazepam 0.5mg po BID- monitor over sedation, lower dose or stop if this is the case. Total time managing care of this patient today ____ minutes.
[2023-09-30] MEDS: Enoxaparin Sodium 40 MG/0.4 ML SYRINGE SUBCUT (14:07)
[2023-09-30] MEDS: Nicotine 14 MG PATCH.TD24 TRANSDERMA (14:08)
[2023-09-30] MEDS: Acetaminophen 325 MG TABLET 650 MG PO ×2 (14:11→19:59)
[2023-09-30 14:56] LABS: Adenovirus F 40/41 Not Detected (Not Detect.); Astrovirus Not Detected (Not Detect.); Campylobacter Not Detected (Not Detect.); Cryptosporidium Not Detected (Not Detect.); Cyclospora cayetanensis Not Detected (Not Detect.); E. coli EAEC Not Detected (Not Detect.); E. coli EPEC Not Detected (Not Detect.); E. coli ETEC Not Detected (Not Detect.); E. coli STEC Not Detected (Not Detect.); Entamoeba histolytica Not Detected (Not Detect.); Giardia lamblia Not Detected (Not Detect.); Norovirus GI/GII Not Detected (Not Detect.); Plesiomonas shigelloides Not Detected (Not Detect.); Rotavirus A Not Detected (Not Detect.); Salmonella Not Detected (Not Detect.); Sapovirus Not Detected (Not Detect.); Shigella sp./EIEC Not Detected (Not Detect.); Vibrio Not Detected (Not Detect.); Vibrio Cholerae Not Detected (Not Detect.); Yersinia enterocolitica Not Detected (Not Detect.)
[2023-09-30 15:21] VITALS: BP 134/71; PULSE 73; RESP 18; TEMP 36.3; O2SAT 93
[2023-09-30 18:06] LABS: Anion Gap 12 (12-20); Blood Urea Nitrogen 15 mg/dL (9-16); Calcium 7.7 mg/dL (8.4-10.2); Carbon Dioxide 20 mmol/L (22-29); Chloride 95 mmol/L (96-108); Creatinine Clr Calc Pharmacy 74.9; Estimated Glomerular Filt Rate > 60; Glucose Random 98 mg/dL (60-115); Potassium 3.1 mmol/L (3.3-5.1); Sodium 124 mmol/L (135-145)
[2023-09-30 19:37] VITALS: BP 152/74; PULSE 68; RESP 18; TEMP 36.1; O2SAT 97
[2023-09-30 19:57] VITALS: PULSE 71; RESP 18; O2SAT 98
[2023-09-30] MEDS: Budesonide 180 MCG AER.POW.BA 2 PUFF INHALE (19:57)
[2023-09-30] MEDS: Melatonin 3 MG TABLET 6 MG PO (19:58)
[2023-09-30] MEDS: clonazePAM 0.5 MG TABLET PO (19:58)
[2023-09-30] MEDS: hydrOXYzine HCL 50 MG TABLET PO (19:59)
[2023-09-30] MEDS: Mirtazapine 30 MG TABLET PO (19:59)
[2023-10-01] VITALS (7 sets, daily range): BP systolic 130–162; BP diastolic 70–80; PULSE 58–75; RESP 13–18; TEMP 36.1–36.3; O2SAT 92–98
[2023-10-01 00:32] LABS: Anion Gap 12 (12-20); Blood Urea Nitrogen 18 mg/dL (9-16); Carbon Dioxide 20 mmol/L (22-29); Chloride 95 mmol/L (96-108); Creatinine Clr Calc Pharmacy 59.1; Estimated Glomerular Filt Rate > 60; Glucose Random 123 mg/dL (60-115); Potassium 3.5 mmol/L (3.3-5.1); Sodium 123 mmol/L (135-145)
--- NOTE | 2023-10-01 06:41 | PC.NURSE ---
[facility] downtime from 01:00-06:00, unable to scan patient bands and medications during this time. No events overnight. patient safety and comfort maintained, call miller in reach.
[2023-10-01] MEDS: Tiotropium Bromide 2.5 mcg 1 PUFF/2.5 MCG MIST.INHAL 2 PUFF INHALE (08:00)
[2023-10-01] MEDS: Budesonide 180 MCG AER.POW.BA 2 PUFF INHALE ×2 (08:00→19:45)
[2023-10-01] MEDS: Tolterodine Tartrate LA 4 MG CAP.ER.24H PO (08:16)
[2023-10-01] MEDS: Omeprazole 20 MG CAPSULE.DR PO (08:16)
[2023-10-01] MEDS: Metoclopramide HCl 5 MG TABLET PO ×3 (08:16→20:30)
[2023-10-01] MEDS: oxyCODONE HCl Immed Release 5 MG TABLET PO ×3 (08:16→20:30)
[2023-10-01] MEDS: Cholecalciferol (Vitamin D3) 25 MCG TABLET 50 MCG PO (08:17)
[2023-10-01] MEDS: Metoprolol Succinate ER 50 MG TAB.ER.24H PO (08:17)
[2023-10-01] MEDS: Sodium Chloride Tab 1 GM TABLET 2 GM PO ×3 (08:17→21:44)
[2023-10-01] MEDS: clonazePAM 0.5 MG TABLET PO ×2 (08:17→20:30)
[2023-10-01] MEDS: 0.9 % Sodium Chloride Flush 3 ML SYRINGE IVFLUSH ×3 (08:19→20:31)
[2023-10-01 08:22] LABS: Hematocrit 24.8 % (37.0-47.0); Hemoglobin 8.7 g/dl (12.0-16.0); Mean Corpuscular HGB Conc 35.1 g/dl (31.0-35.0); Mean Platelet Volume 9.3 fL (9.4-12.3); Red Blood Count 3.22 X10*6/uL (4.20-5.50); Red Cell Distribution Width 13.4 % (11.0-16.0)
[2023-10-01 08:23] LABS: Platelet Count 64 X10*3/uL (160-400); White Blood Count 1.3 X10*3/uL (4.8-10.8)
[2023-10-01 08:40] LABS: Anion Gap 11 (12-20); Blood Urea Nitrogen 17 mg/dL (9-16); Calcium 8.1 mg/dL (8.4-10.2); Carbon Dioxide 23 mmol/L (22-29); Chloride 93 mmol/L (96-108); Estimated Glomerular Filt Rate > 60; Glucose Random 96 mg/dL (60-115); Magnesium 1.7 mg/dL (1.6-2.6); Potassium 3.1 mmol/L (3.3-5.1); Sodium 124 mmol/L (135-145)
[2023-10-01] MEDS: cefTRIAXone sodium 1 GM in 0.9 % Sodium Chloride 50 ML IV (12:17)
[2023-10-01] MEDS: Sucralfate 1 GM TABLET 4 GM PO (12:17)
--- NOTE | 2023-10-01 13:25 | HO.PM.IMPN ---
Subjective Subjective Date of Service: 10/01/23 Interval History: Seen and evaluated this morning Pancytopenia worse of 1.3 with low PLT Na of 124 this morning anxious about her condition and easily cries no other overnight events Review of Systems Review of Systems: Yes all other systems are reviewed and are negative Physical Exam Vital Signs: Vital Signs: Last Vital Signs Temp 96.9 F 10/01/23 08:00 Pulse 65 10/01/23 08:54 Resp 16 10/01/23 08:03 BP 160/80 H 10/01/23 08:00 Pulse Ox 98 10/01/23 08:00 O2 Del Method Room Air 10/01/23 08:00 BMI result Body Mass Index 24.0 Const: Other: Constitutional : Awake, interactive, gets anxious on occasions Neck : Normal inspection, Supple Cardiovascular : RRR, no JVP, no lower extremity edema Respiratory : good bilateral air entry, no crackles, wheezes or rhonchi Gastrointestinal: soft, lax, Normal bowel sounds, Non tender Skin : Warm, Dry Neurological : Alert & oriented x3, No focal deficit Objective Data Active Medications Acetaminophen (Acetaminophen 325 Mg Tablet) 650 mg PO Q6H PRN PRN Reason: Pain, Mild (Pain Scale 1-3), fever or headache Last Admin: 09/30/23 19:59 Dose: 650 mg Documented By: GLENIS Albuterol Sulfate (Albuterol Sulfate 90 Mcg 8 Gm Inhaler) 1 puff INHALE Q6H PRN PRN Reason: shortness of breath or wheezing Budesonide (Budesonide 180 Mcg Aer.Pow.Ba) 2 puff INHALE RBID [facility] Last Admin: 10/01/23 08:00 Dose: 2 puff Documented By: KYLER Calcium Carbonate (Calcium Carbonate 750 Mg Tab.Chew) 750 mg PO Q4H PRN PRN Reason: Heartburn Last Admin: 09/29/23 18:08 Dose: 750 mg Documented By: JOSE Clonazepam (Clonazepam 0.5 Mg Tablet) 0.5 mg PO BID [facility] Last Admin: 10/01/23 08:17 Dose: 0.5 mg Documented By: MUKUND Enoxaparin Sodium (Enoxaparin Sodium 40 Mg/0.4 Ml Syringe) 40 mg SUBCUT Q24H [facility] Last Admin: 09/30/23 14:07 Dose: 40 mg Documented By: MASOUD Escitalopram Oxalate (Escitalopram Oxalate 20 Mg Tablet) 20 mg PO DAILY [facility] Last Admin: 09/29/23 08:13 Dose: 20 mg Documented By: JOSE Fluticasone Propionate (Fluticasone Propionate Nasal 16 Gm [place]) 1 spray NOSTRIL-B DAILY [facility] Last Admin: 10/01/23 09:21 Dose: Not Given Documented By: MUKUND Non-Admin Reason: Med Not Available Guaifenesin/Dextromethorphan (Guaifenesin Dm 100/10/5 Ml 5 Ml Syrup) 10 ml PO TID PRN PRN Reason: cough Hydroxyzine HCl (Hydroxyzine Hcl 50 Mg Tablet) 50 mg PO BEDTIME [facility] Last Admin: 09/30/23 19:59 Dose: 50 mg Documented By: GLENIS Ceftriaxone Sodium 1 gm/ (Sodium Chloride) 50 mls @ 100 mls/hr IV Q24H [facility] Last Infusion: 10/01/23 12:55 Dose: Infused Documented By: UMKUND Losartan Potassium (Losartan Potassium 25 Mg Tablet) 25 mg PO DAILY@0900 [facility]; Protocol Last Admin: 09/29/23 08:12 Dose: 25 mg Documented By: JOSE Magnesium Hydroxide (Milk Of Magnesia 30 Ml Oral.Susp) 30 ml PO DAILY PRN PRN Reason: Constipation Melatonin (Melatonin 3 Mg Tablet) 6 mg PO BEDTIME PRN PRN Reason: Insomnia Last Admin: 09/30/23 19:58 Dose: 6 mg Documented By: GLENIS Metoclopramide HCl (Metoclopramide Hcl 5 Mg Tablet) 5 mg PO TID [facility] Last Admin: 10/01/23 08:16 Dose: 5 mg Documented By: MUKUND Metoprolol Succinate (Metoprolol Succinate Er 50 Mg Tab.Er.24h) 50 mg PO DAILY [facility]; Protocol Last Admin: 10/01/23 08:17 Dose: 50 mg Documented By: MUKUND Mirtazapine (Mirtazapine 30 Mg Tablet) 30 mg PO BEDTIME [facility] Last Admin: 09/30/23 19:59 Dose: 30 mg Documented By: GLENIS Morphine Sulfate (Morphine Sulfate 2 Mg/Ml Cartridge) 2 mg IVPUSH Q4H PRN; Protocol PRN Reason: Pain, Severe (Pain Scale 7-10) Last Admin: 09/30/23 20:09 Dose: 2 mg Documented By: GLENIS Nicotine (Nicotine 14 Mg Patch.Td24) 14 mg TRANSDERMA Q24H [facility] Last Admin: 09/30/23 14:08 Dose: 14 mg Documented By: MASOUD Non-Formulary Medication (Alosetron) 1 mg PO DAILY@0900 [facility] Omeprazole (Omeprazole 20 Mg Capsule.Dr) 20 mg PO DAILY@0630 [facility] Last Admin: 10/01/23 08:16 Dose: 20 mg Documented By: MUKUND Ondansetron HCl (Ondansetron Hcl 4 Mg/2 Ml Vial) 4 mg IVPUSH Q8H PRN PRN Reason: Nausea and Vomiting Last Admin: 09/30/23 08:51 Dose: 4 mg Documented By: MASOUD Oxycodone HCl (Oxycodone Hcl Immed Release 5 Mg Tablet) 5 mg PO DAILY PRN PRN Reason: Pain, Moderate(Pain Scale 4-6) Last Admin: 10/01/23 08:16 Dose: 5 mg Documented By: MUKUND Prochlorperazine Edisylate (Prochlorperazine Edisylate 10 Mg/2 Ml Vial) 5 mg IVPUSH ONCE PRN PRN Reason: Nausea Sodium Chloride (0.9 % Sodium Chloride Flush 3 Ml Syringe) 3 ml IVFLUSH QSHIFT [facility] Last Admin: 10/01/23 08:19 Dose: 3 ml Documented By: MUKUND Sodium Chloride (Sodium Chloride Tab 1 Gm Tablet) 2 gm PO TID [facility] Last Admin: 10/01/23 08:17 Dose: 2 gm Documented By: MUKUND Sucralfate (Sucralfate 1 Gm Tablet) 4 gm PO DAILY@1200 [facility] Last Admin: 10/01/23 12:17 Dose: 4 gm Documented By: MUKUND Tiotropium [place] (Tiotropium [place] 2.5 Mcg 1 Puff/2.5 Mcg Mist.Inhal) 2 puff INHALE RDAILY [facility] Last Admin: 10/01/23 08:00 Dose: 2 puff Documented By: KYLER Tolterodine Tartrate (Tolterodine Tartrate [place] 4 Mg Cap.Er.24h) 4 mg PO DAILY@09 [facility] Last Admin: 10/01/23 08:16 Dose: 4 mg Documented By: MUKUND Vitamin D (Cholecalciferol (Vitamin D3) 25 Mcg Tablet) 50 mcg PO DAILY@0900 [facility] Last Admin: 10/01/23 08:17 Dose: 50 mcg Documented By: MUKUND Labs 10/01/23 07:48 10/01/23 07:48 Labs: Laboratory Results - last 24 hr 09/29/23 09/30/23 10/01/23 13:32 17:37 00:13 MCV MCH MCHC RDW Plt Count MPV Absolute Nucleated RBC Nucleated RBC % (auto) Anion Gap 12 12 Estim Creat Clear Calc 74.9 59.1 Estimated GFR > 60 > 60 Random Glucose 98 123 H Calcium 7.7 L 8.0 L Magnesium Stl C. cayetanensis PCR Not Detected Stool Rotavirus A PCR Not Detected Stl Adenov F 40/41 PCR Not Detected Stool Astrovirus (PCR) Not Detected Stool Campylobacter PCR Not Detected Stool Cryptosporidium PCR Not Detected Stl Sh Tox Pr E STEC PCR Not Detected Stool E coli O157 PCR TNP Stl Enterotoxigenic E PCR Not Detected Stool EPEC (PCR) Not Detected Stool EAEC (PCR) Not Detected Stl E. histolytica PCR Not Detected Stool Giardia Lamblia PCR Not Detected Stl P. shigelloides PCR Not Detected Stool Salmonella PCR Not Detected Stool Sapovirus (PCR) Not Detected Stl Shigella/EIEC PCR Not Detected St Y.enterocolitica PCR Not Detected Stool Vibrio (PCR) Not Detected Stl Vibrio cholerae PCR Not Detected Stl Norovirus GI/GII PCR Not Detected 10/01/23 10/01/23 07:48 08:11 MCV 77.0 L MCH 27.0 MCHC 35.1 H RDW 13.4 Plt Count 64 L MPV 9.3 L Absolute Nucleated RBC 0.000 Nucleated RBC % (auto) 0.0 Anion Gap 11 L Estim Creat Clear Calc 66.0 Estimated GFR > 60 Random Glucose 96 Calcium 8.1 L Magnesium 1.7 Cancelled Stl C. cayetanensis PCR Stool Rotavirus A PCR Stl Adenov F 40/41 PCR Stool Astrovirus (PCR) Stool Campylobacter PCR Stool Cryptosporidium PCR Stl Sh Tox Pr E STEC PCR Stool E coli O157 PCR Stl Enterotoxigenic E PCR Stool EPEC (PCR) Stool EAEC (PCR) Stl E. histolytica PCR Stool Giardia Lamblia PCR Stl P. shigelloides PCR Stool Salmonella PCR Stool Sapovirus (PCR) Stl Shigella/EIEC PCR St Y.enterocolitica PCR Stool Vibrio (PCR) Stl Vibrio cholerae PCR Stl Norovirus GI/GII PCR Microbiology Microbiology Results: Microbiology 09/28/23 10:58 Blood Culture - Preliminary Blood - Venous No growth after 48 hours. 09/28/23 10:44 Blood Culture - Preliminary Blood - Venous No growth after 48 hours. 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 Sodium improved to 124 Continue fluid restriction, Continue sodium tablets can not tolerate urea Nephrology following Monitor sodium levels Nausea vomiting due to chemotherapy Improved but still gets nauseated Reglan atc PRN Zofran advanced diet Acute hypokalemia replacement given Acute Pancytopenia secondary to recent chemotherapy monitor CBC Oncology following Anxiety, depression Psychiatry input appreciated, Acute hypomagnesemia Give IV Replacement Acute UTI Klebsiella in urine Ceftriaxone IV Small-cell lung cancer Follow up Oncology COPD Continue inhalers Hypertension Losartan, metoprolol GERD PPI DVT prophylaxis with heparin subQ Full code reason for continued hospitalization: severe Hyponatremia Quality Stroke Does the patient have a stroke diagnosis?: No VTE Prior VTE?: No VTE Risk Level:: Medical - moderate - high VTE Device Contraindication: Treatment Not Indicated VTE Drug Contraindication: N/A - Med Ordered
--- NOTE | 2023-10-01 13:28 | P.PNNP_ITS ---
Subjective Subjective Date of Service: 10/01/23 Interval history: Events noted. Tearful Physical Exam 2 Vital Signs: Vital Signs: Last Vital Signs Temp 96.9 F 10/01/23 08:00 Pulse 65 10/01/23 08:54 Resp 16 10/01/23 08:03 BP 160/80 H 10/01/23 08:00 Pulse Ox 98 10/01/23 08:00 O2 Del Method Room Air 10/01/23 08:00 BMI result Body Mass Index 24.0 Awake. Comfortable. Neck is supple. Mucosa moist. Lungs bilateral scattered rhonchi. Heart S1-S2 heard no gallop. Abdomen soft. Extremities no edema. No involuntary movements. No myoclonus. Objective Data Labs 10/05/23 05:53 10/05/23 05:53 Labs: Laboratory Results - last 24 hr 09/29/23 09/30/23 10/01/23 13:32 17:37 00:13 WBC RBC Hgb Hct MCV MCH MCHC RDW Plt Count MPV Absolute Nucleated RBC Nucleated RBC % (auto) Sodium 124 L 123 L Potassium 3.1 L 3.5 Chloride 95 L 95 L Carbon Dioxide 20 L 20 L Anion Gap 12 12 BUN 15 18 H Creatinine 0.60 0.76 Estim Creat Clear Calc 74.9 59.1 Estimated GFR > 60 > 60 Random Glucose 98 123 H Calcium 7.7 L 8.0 L Magnesium Stl C. cayetanensis PCR Not Detected Stool Rotavirus A PCR Not Detected Stl Adenov F 40/41 PCR Not Detected Stool Astrovirus (PCR) Not Detected Stool Campylobacter PCR Not Detected Stool Cryptosporidium PCR Not Detected Stl Sh Tox Pr E STEC PCR Not Detected Stool E coli O157 PCR TNP Stl Enterotoxigenic E PCR Not Detected Stool EPEC (PCR) Not Detected Stool EAEC (PCR) Not Detected Stl E. histolytica PCR Not Detected Stool Giardia Lamblia PCR Not Detected Stl P. shigelloides PCR Not Detected Stool Salmonella PCR Not Detected Stool Sapovirus (PCR) Not Detected Stl Shigella/EIEC PCR Not Detected St Y.enterocolitica PCR Not Detected Stool Vibrio (PCR) Not Detected Stl Vibrio cholerae PCR Not Detected Stl Norovirus GI/GII PCR Not Detected 10/01/23 10/01/23 07:48 08:11 WBC 1.3 L RBC 3.22 L Hgb 8.7 L Hct 24.8 L MCV 77.0 L MCH 27.0 MCHC 35.1 H RDW 13.4 Plt Count 64 L MPV 9.3 L Absolute Nucleated RBC 0.000 Nucleated RBC % (auto) 0.0 Sodium 124 L Potassium 3.1 L Chloride 93 L Carbon Dioxide 23 Anion Gap 11 L BUN 17 H Creatinine 0.68 Estim Creat Clear Calc 66.0 Estimated GFR > 60 Random Glucose 96 Calcium 8.1 L Magnesium 1.7 Cancelled Stl C. cayetanensis PCR Stool Rotavirus A PCR Stl Adenov F 40/41 PCR Stool Astrovirus (PCR) Stool Campylobacter PCR Stool Cryptosporidium PCR Stl Sh Tox Pr E STEC PCR Stool E coli O157 PCR Stl Enterotoxigenic E PCR Stool EPEC (PCR) Stool EAEC (PCR) Stl E. histolytica PCR Stool Giardia Lamblia PCR Stl P. shigelloides PCR Stool Salmonella PCR Stool Sapovirus (PCR) Stl Shigella/EIEC PCR St Y.enterocolitica PCR Stool Vibrio (PCR) Stl Vibrio cholerae PCR Stl Norovirus GI/GII PCR Microbiology Microbiology Results: Microbiology 09/28/23 10:58 Blood - Venous Blood Culture - Preliminary No growth after 48 hours. 09/28/23 10:44 Blood - Venous Blood Culture - Preliminary No growth after 48 hours. 09/28/23 Unknown Urine clean catch - Urine garcia top Urine Culture - Final Klebsiella pneumoniae Procedures Date of Service Date of Service: 10/05/23 Assessment & Plan Assessment and plan (1) Hyponatremia: Status: Acute Plan Hyponatremia due to excess ADH Could not tolerate oral urea Na is down to 121 and now back up to 124. Continue current dosage of oral sodium chloride tablets 2 g t.i.d.. Needs p.o. free water restriction. Monitor serum sodium closely to avoid rapid correction Time Spent With Patient Time: Total time managing care of this patient today ____ minutes. Progress Note: Quality Stroke Does the patient have a stroke diagnosis?: No
[2023-10-01 13:46] LABS: Anion Gap 13 (12-20); Blood Urea Nitrogen 17 mg/dL (9-16); Calcium 8.5 mg/dL (8.4-10.2); Carbon Dioxide 21 mmol/L (22-29); Chloride 94 mmol/L (96-108); Creatinine Clr Calc Pharmacy 59.1; Estimated Glomerular Filt Rate > 60; Glucose Random 98 mg/dL (60-115); Potassium 3.1 mmol/L (3.3-5.1); Sodium 125 mmol/L (135-145)
[2023-10-01] MEDS: Nicotine 14 MG PATCH.TD24 TRANSDERMA (14:16)
[2023-10-01] MEDS: Morphine Sulfate 2 MG/ML CARTRIDGE IVPUSH ×3 (14:16→21:44)
[2023-10-01] MEDS: Potassium Chloride ER 20 MEQ TAB.ER.PRT PO (14:17)
[2023-10-01] MEDS: Tbo-Filgrastim 300 MCG/0.5 ML SYRINGE SUBCUT (17:28)
[2023-10-01 19:10] LABS: Anion Gap 12 (12-20); Blood Urea Nitrogen 21 mg/dL (9-16); Calcium 8.3 mg/dL (8.4-10.2); Carbon Dioxide 23 mmol/L (22-29); Chloride 97 mmol/L (96-108); Creatinine Clr Calc Pharmacy 63.2; Estimated Glomerular Filt Rate > 60; Glucose Random 122 mg/dL (60-115); Potassium 3.5 mmol/L (3.3-5.1); Sodium 128 mmol/L (135-145)
[2023-10-01] MEDS: hydrOXYzine HCL 50 MG TABLET PO (20:30)
[2023-10-01] MEDS: Acetaminophen 325 MG TABLET 650 MG PO (20:30)
[2023-10-01] MEDS: Mirtazapine 30 MG TABLET PO (20:30)
[2023-10-01] MEDS: Heparin Sodium,Porcine 5,000 UNIT/ML VIAL 5000 UNIT SUBCUT (20:31)
[2023-10-01] MEDS: ondansetron HCL 4 MG/2 ML VIAL IVPUSH (21:44)
[2023-10-02] VITALS (7 sets, daily range): BP systolic 131–157; BP diastolic 60–72; PULSE 70–82; RESP 16–18; TEMP 36.2–36.6; O2SAT 92–96
[2023-10-02 00:34] LABS: Anion Gap 11 (12-20); Blood Urea Nitrogen 23 mg/dL (9-16); Calcium 8.4 mg/dL (8.4-10.2); Carbon Dioxide 24 mmol/L (22-29); Chloride 99 mmol/L (96-108); Creatinine Clr Calc Pharmacy 52.2; Estimated Glomerular Filt Rate > 60; Glucose Random 115 mg/dL (60-115); Potassium 4.2 mmol/L (3.3-5.1); Sodium 130 mmol/L (135-145)
[2023-10-02] MEDS: Morphine Sulfate 2 MG/ML CARTRIDGE IVPUSH ×4 (02:12→20:14)
[2023-10-02 06:49] LABS: Anion Gap 13 (12-20); Blood Urea Nitrogen 25 mg/dL (9-16); Calcium 8.4 mg/dL (8.4-10.2); Carbon Dioxide 26 mmol/L (22-29); Chloride 98 mmol/L (96-108); Creatinine Clr Calc Pharmacy 54.1; Estimated Glomerular Filt Rate > 60; Glucose Random 108 mg/dL (60-115); Potassium 3.6 mmol/L (3.3-5.1); Sodium 133 mmol/L (135-145)
[2023-10-02] MEDS: Tiotropium Bromide 2.5 mcg 1 PUFF/2.5 MCG MIST.INHAL 2 PUFF INHALE (07:28)
[2023-10-02] MEDS: Budesonide 180 MCG AER.POW.BA 2 PUFF INHALE ×2 (07:29→20:34)
[2023-10-02] MEDS: 0.9 % Sodium Chloride Flush 3 ML SYRINGE IVFLUSH ×2 (07:50→15:54)
[2023-10-02] MEDS: Heparin Sodium,Porcine 5,000 UNIT/ML VIAL 5000 UNIT SUBCUT ×2 (07:51→20:58)
[2023-10-02] MEDS: Cholecalciferol (Vitamin D3) 25 MCG TABLET 50 MCG PO (07:51)
[2023-10-02] MEDS: Tolterodine Tartrate LA 4 MG CAP.ER.24H PO (07:51)
[2023-10-02] MEDS: Omeprazole 20 MG CAPSULE.DR PO (07:51)
[2023-10-02] MEDS: oxyCODONE HCl Immed Release 5 MG TABLET PO ×2 (07:51→17:21)
[2023-10-02] MEDS: Metoprolol Succinate ER 50 MG TAB.ER.24H PO (07:51)
[2023-10-02] MEDS: Metoclopramide HCl 5 MG TABLET PO ×3 (07:52→20:58)
[2023-10-02] MEDS: Sodium Chloride Tab 1 GM TABLET 2 GM PO ×3 (07:52→20:57)
[2023-10-02] MEDS: clonazePAM 0.5 MG TABLET PO ×2 (07:52→20:57)
--- NOTE | 2023-10-02 09:12 | MHC.CLN ---
NUTRITION ADDED NEUTROPENIC PRECAUTIONS TO DIET ORDER PER CONSULT.
[2023-10-02 09:28] LABS: Hematocrit 25.4 % (37.0-47.0); Hemoglobin 8.6 g/dl (12.0-16.0); Mean Corpuscular HGB Conc 33.9 g/dl (31.0-35.0); Mean Corpuscular Hemoglobin 27.1 pg (27.0-33.0); Mean Corpuscular Volume 80.1 fL (80.0-98.0); Mean Platelet Volume 9.8 fL (9.4-12.3); Red Blood Count 3.17 X10*6/uL (4.20-5.50); Red Cell Distribution Width 13.8 % (11.0-16.0)
[2023-10-02 09:32] LABS: Platelet Count 53 X10*3/uL (160-400); White Blood Count 1.5 X10*3/uL (4.8-10.8)
--- NOTE | 2023-10-02 11:40 | P.PNHO-ONC_ITS ---
Medical Summary - Medical Summary Date of Service: 10/02/23 Chief complaint: Weakness Primary Care Provider: Sarthak Person MD Medical Summary: DIAGNOSIS: SMALL CELL CA OF LUNG. Interval History Interval history: Sarah Medina is a 63 year old lady, with history of IVDA, history of hepatitis-C, recent admission to [facility] from 08/23-09/04 where she was diagnosed with small cell lung cancer with post obstructive pneumonia and SIADH. She had PET scan showing L and R supraclavicular node, paratracheal /mediastinal. negative brain MRI. She presented to the ED yesterday, for evaluation of retrostrernal non radiating chest pain and nausea/vomiting diarrhea that started 2 days ago, started chemo on friday 09/22. She also had productive cough and shortness of breath. No weight gain or orthopnea. Denies anorexia, has been eating and drinking without difficult. Endorses significant anxiety. Overall, she is feeling better. She was unable to tolerate urea tablets but is able to and just sodium bicarbonate tablets. She denies fever or chills. No sore throat or cough. 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 GERD (gastroesophageal reflux disease) History of hepatitis C IV drug user Lung mass Mass of right lung MDD (major depressive disorder), recurrent episode, moderate Mitral regurgitation Mitral valve prolapse Nicotine dependence, cigarettes, uncomplicated Nonrheumatic mitral (valve) insufficiency Osteopenia Onset Date: ~2011 Paresthesia of left leg Pulmonary nodule Pure hypercholesterolemia Rectal prolapse Small cell lung cancer Onset Date: ~08/2023 Vitamin D deficiency Functional capacity: wheelchair bound Family History: Family History (Last Reviewed 09/28/23 @ 15:06 by YEVGENIY Fernandez) Father Internal bleeding Mother Medical history unknown Surgical History: Surgical History (Last Reviewed 09/28/23 @ 15:06 by YEVGENIY Fernandez) History of bronchoscopy Onset Date: ~2023 History of colonoscopy Onset Date: ~2018 History of hysteroscopy Onset Date: ~2010 History of liver biopsy Onset Date: ~2009 History of partial colectomy Onset Date: ~2014 Social History: Social History (Last Reviewed 09/28/23 @ 15:06 by YEVGENIY Fernandez) Living Situation History: Household Members: None Housing: House Housing Other:: lives alone with her cat Malena Do you presently have visiting nurse or other home services: No Alcohol History Details: 1. How often do you have a drink containing alcohol?: a. Never AUDIT-C Alcohol total score: 0 Currently Displaying Signs/Symptoms of Alcohol Withdrawal: No Tobacco History: Patient Tobacco Use Status: Never used Tobacco Tobacco use type: Cigarette Cigarette Packs Per Day: 0.5 Years Smoked: 45 years (onset 15, 1/2-3/4ppd x 44yrs, 28pyh) Smoked in Last 30 Days: Yes e-Cigarette/Vaping Use: Never Used Patient Interested in Nicotine Replacement: Yes Patient Given Instructions on How to Stop Smoking: Yes Date Education Initiated: 09/28/23 Second Hand Smoke Exposure: Yes Substance Use History: Use of substances other than those prescribed or required for medical reasons : No Substance Use Type: Marijuana Currently Displaying Signs/Symptoms of Drug Intoxication Withdrawal: No Any prior treatment program specific to substance use: No Domestic Abuse History: Have you been hit, kicked, punched, or otherwise hurt by someone within the past year? If so, by whom?: No Do you feel safe in your current relationship?: No Is there a partner from a previous relationship who is making you feel unsafe now?: No Are you made to feel afraid or neglected: No Advance Directives: Advance Directives: Yes Advance Directives on File: Yes Advance Directives Date on File: 12/18/21 Homicidal Assessment: Do you have a plan to hurt others: No Plan Nutrition Assessment: Recently lost weight without trying: Unsure How much weight loss: Unsure Eating poorly because of decreased appetite: Yes Nutrition screen score: 5 Nutrition Risks: No Nutritional Risk Patient : No : No Poor oral hygiene: No Occupation Assessmet: service: No Current occupational status: unemployed Sex/Gender Assessment: Sexual orientation: Straight/Heterosexual Gender identity: Female Home Medications and Allergies Current Medications: Current Medications Acetaminophen (Acetaminophen 325 Mg Tablet) 650 mg PO Q6H PRN PRN Reason: Pain, Mild (Pain Scale 1-3), fever or headache Last Admin: 10/01/23 20:30 Dose: 650 mg Albuterol Sulfate (Albuterol Sulfate 90 Mcg 8 Gm Inhaler) 1 puff INHALE Q6H PRN PRN Reason: shortness of breath or wheezing Budesonide (Budesonide 180 Mcg Aer.Pow.Ba) 2 puff INHALE RBID [facility] Last Admin: 10/02/23 07:29 Dose: 2 puff Calcium Carbonate (Calcium Carbonate 750 Mg Tab.Chew) 750 mg PO Q4H PRN PRN Reason: Heartburn Last Admin: 09/29/23 18:08 Dose: 750 mg Clonazepam (Clonazepam 0.5 Mg Tablet) 0.5 mg PO BID [facility] Last Admin: 10/02/23 07:52 Dose: 0.5 mg Escitalopram Oxalate (Escitalopram Oxalate 20 Mg Tablet) 20 mg PO DAILY [facility] Last Admin: 09/29/23 08:13 Dose: 20 mg Fluticasone Propionate (Fluticasone Propionate Nasal 16 Gm [place]) 1 spray NOSTRIL-B DAILY [facility] Last Admin: 10/02/23 07:52 Dose: Not Given Guaifenesin/Dextromethorphan (Guaifenesin Dm 100/10/5 Ml 5 Ml Syrup) 10 ml PO TID PRN PRN Reason: cough Heparin Sodium (Porcine) (Heparin Sodium,Porcine 5,000 Unit/Ml Vial) 5,000 unit SUBCUT Q12H [facility] Last Admin: 10/02/23 07:51 Dose: 5,000 unit Hydroxyzine HCl (Hydroxyzine Hcl 50 Mg Tablet) 50 mg PO BEDTIME [facility] Last Admin: 10/01/23 20:30 Dose: 50 mg Ceftriaxone Sodium 1 gm/ (Sodium Chloride) 50 mls @ 100 mls/hr IV Q24H [facility] Last Infusion: 10/01/23 12:55 Dose: Infused Losartan Potassium (Losartan Potassium 25 Mg Tablet) 25 mg PO DAILY@0900 [facility]; Protocol Last Admin: 09/29/23 08:12 Dose: 25 mg Magnesium Hydroxide (Milk Of Magnesia 30 Ml Oral.Susp) 30 ml PO DAILY PRN PRN Reason: Constipation Melatonin (Melatonin 3 Mg Tablet) 6 mg PO BEDTIME PRN PRN Reason: Insomnia Last Admin: 09/30/23 19:58 Dose: 6 mg Metoclopramide HCl (Metoclopramide Hcl 5 Mg Tablet) 5 mg PO TID [facility] Last Admin: 10/02/23 07:52 Dose: 5 mg Metoprolol Succinate (Metoprolol Succinate Er 50 Mg Tab.Er.24h) 50 mg PO DAILY [facility]; Protocol Last Admin: 10/02/23 07:51 Dose: 50 mg Mirtazapine (Mirtazapine 30 Mg Tablet) 30 mg PO BEDTIME [facility] Last Admin: 10/01/23 20:30 Dose: 30 mg Morphine Sulfate (Morphine Sulfate 2 Mg/Ml Cartridge) 2 mg IVPUSH Q4H PRN; Protocol PRN Reason: Pain, Severe (Pain Scale 7-10) Last Admin: 10/02/23 11:09 Dose: 2 mg Nicotine (Nicotine 14 Mg Patch.Td24) 14 mg TRANSDERMA Q24H [facility] Last Admin: 10/01/23 14:16 Dose: 14 mg Non-Formulary Medication (Alosetron) 1 mg PO DAILY@0900 [facility] Omeprazole (Omeprazole 20 Mg Capsule.Dr) 20 mg PO DAILY@0630 [facility] Last Admin: 10/02/23 07:51 Dose: 20 mg Ondansetron HCl (Ondansetron Hcl 4 Mg/2 Ml Vial) 4 mg IVPUSH Q8H PRN PRN Reason: Nausea and Vomiting Last Admin: 10/01/23 21:44 Dose: 4 mg Oxycodone HCl (Oxycodone Hcl Immed Release 5 Mg Tablet) 5 mg PO Q4H PRN PRN Reason: Pain, Moderate(Pain Scale 4-6) Last Admin: 10/02/23 07:51 Dose: 5 mg Prochlorperazine Edisylate (Prochlorperazine Edisylate 10 Mg/2 Ml Vial) 5 mg IVPUSH ONCE PRN PRN Reason: Nausea Sodium Chloride (0.9 % Sodium Chloride Flush 3 Ml Syringe) 3 ml IVFLUSH QSHIFT [facility] Last Admin: 10/02/23 07:50 Dose: 3 ml Sodium Chloride (Sodium Chloride Tab 1 Gm Tablet) 2 gm PO TID [facility] Last Admin: 10/02/23 07:52 Dose: 2 gm Sucralfate (Sucralfate 1 Gm Tablet) 4 gm PO DAILY@1200 [facility] Last Admin: 10/01/23 12:17 Dose: 4 gm Tiotropium [place] (Tiotropium [place] 2.5 Mcg 1 Puff/2.5 Mcg Mist.Inhal) 2 puff INHALE RDAILY [facility] Last Admin: 10/02/23 07:28 Dose: 2 puff Tolterodine Tartrate (Tolterodine Tartrate [place] 4 Mg Cap.Er.24h) 4 mg PO DAILY@09 [facility] Last Admin: 10/02/23 07:51 Dose: 4 mg Vitamin D (Cholecalciferol (Vitamin D3) 25 Mcg Tablet) 50 mcg PO DAILY@09 [facility] Last Admin: 10/02/23 07:51 Dose: 50 mcg Home Medications ?Medication ?Instructions ?Recorded ?Confirmed ?Type alosetron 0.5 mg tablet 1 mg PO DAILY@0907/22/23 09/28/23 History cholecalciferol (vitamin D3) 50 50 mcg PO DAILY@89907/22/23 09/28/23 History mcg (2,000 unit) capsule pantoprazole 40 mg tablet,delayed 40 mg PO DAILY@0607/22/23 09/28/23 History release solifenacin 10 mg tablet 10 mg PO DAILY@89907/22/23 09/28/23 History tiotropium bromide 18 mcg capsule 1 cap inhalation DAILY@09 copd 07/22/23 09/28/23 History with inhalation device (Spiriva with HandiHaler) sucralfate 1 gram tablet (Carafate) 4 g PO DAILY@1200 07/25/23 09/28/23 History budesonide 180 mcg/actuation 2 inh inhalation BID 09/28/23 09/28/23 History breath activated powder inhaler (Pulmicort Flexhaler) lorazepam 1 mg tablet 1 mg PO BID 09/28/23 09/28/23 History oxycodone 5 mg tablet 5 - 10 mg PO DAILY PRN pain 09/28/23 09/28/23 History Allergies Allergy/AdvReac Type Severity Reaction Status Date / Time No Known Allergies Allergy Unknown unknown Verified 09/28/23 09:37 [NO KNOWN ALLERGIES] Exam Vital signs: Vital Signs Temp 97.9 F 10/02/23 07:01 Pulse 70 10/02/23 07:30 Resp 16 10/02/23 07:30 BP 138/72 10/02/23 07:01 Pulse Ox 92 10/02/23 07:01 O2 Del Method Room Air 10/02/23 07:01 Intake & Output 10/01/23 10/02/23 10/02/23 18:59 06:59 18:59 Intake Total 770 / 770 Balance 770 / 770 Intake: Intake, Oral Amount 720 / 720 Intake, IV Amount 50 / 50 cefTRIAXone sodium 1 gm In 0.9 50 / 50 % Sodium Chloride 50 ml @ 100 mls/hr IV Q24H [facility] Rx#: [id number] Other: Meal Refused No NPO No Dinner % Eaten 75% Eating (Feeding) Ability Independent Number of Unmeasured Voids 1 1 Urine Bathroom Weight 59.5 kg BMI result Body Mass Index 24.0 - Constitutional Present: mild distress - Routine HEENT Exam Head: Present: normocephalic - Routine Respiratory Exam Present: decreased breath sounds - Routine Cardiovascular Exam Cardiovascular: Present: RRR, S1, S2 - Routine Abdominal Exam Present: nontender - Routine Extremities Exam Present: nontender - Routine Skin Exam Present: intact - Routine Neurological Exam Present: alert, oriented X3 Data - Labs CBC & Chem 7: 10/02/23 08:15 10/02/23 12:11 Labs: Laboratory Last Values WBC 1.5 X10*3/uL (4.8-10.8) L 10/02/23 08:15 RBC 3.17 X10*6/uL (4.20-5.50) L 10/02/23 08:15 Hgb 8.6 g/dl (12.0-16.0) L 10/02/23 08:15 Hct 25.4 % (37.0-47.0) L 10/02/23 08:15 MCV 80.1 fL (80.0-98.0) 10/02/23 08:15 MCH 27.1 pg (27.0-33.0) 10/02/23 08:15 MCHC 33.9 g/dl (31.0-35.0) 10/02/23 08:15 RDW 13.8 % (11.0-16.0) 10/02/23 08:15 Plt Count 53 X10*3/uL (160-400) L 10/02/23 08:15 MPV 9.8 fL (9.4-12.3) 10/02/23 08:15 Immature Gran % (Auto) 3.3 % (0.0-0.4) H 09/29/23 05:53 Neut % (Auto) 83.1 % (45-73) H 09/29/23 05:53 Lymph % (Auto) 11.4 % (20-40) L 09/29/23 05:53 [place] % (Auto) 0.3 % (2-11) L 09/29/23 05:53 Eos % (Auto) 1.1 % (0-4) 09/29/23 05:53 Baso % (Auto) 0.8 % (0-2) 09/29/23 05:53 Lymph # (Auto) 0.4 X10*3/uL (1.2-4.9) L 09/29/23 05:53 [place] # (Auto) 0.0 X10*3/uL (0.1-1.2) L 09/29/23 05:53 Eos # (Auto) 0.0 X10*3/uL (0.0-0.4) 09/29/23 05:53 Baso # (Auto) 0.0 X10*3/uL (0.0-0.2) 09/29/23 05:53 Abs Immat Gran (auto) 0.12 X10*3/uL (0.00-0.03) H 09/29/23 05:53 Absolute Neuts (auto) 3.1 x10*3/uL (2.0-8.3) 09/29/23 05:53 Absolute Nucleated RBC 0.000 X10*3/uL (0.0-0.012) 10/02/23 08:15 Nucleated RBC % (auto) 0.0 /100WBC (0.0-0.2) 10/02/23 08:15 Smear Tech's Comments VERIFIED 09/29/23 05:53 Smear Path Review 10/01/23 07:48 Hold Purple Top SEE NOTE 10/02/23 05:55 Sodium 133 mmol/L (135-145) L 10/02/23 05:55 Potassium 3.6 mmol/L (3.3-5.1) 10/02/23 05:55 Chloride 98 mmol/L (96-108) 10/02/23 05:55 Carbon Dioxide 26 mmol/L (22-29) 10/02/23 05:55 Anion Gap 13 (12-20) 10/02/23 05:55 BUN 25 mg/dL (9-16) H 10/02/23 05:55 Creatinine 0.83 mg/dL (0.5-1.4) 10/02/23 05:55 Estim Creat Clear Calc 54.1 10/02/23 05:55 Estimated GFR > 60 10/02/23 05:55 Random Glucose 108 mg/dL (60-115) 10/02/23 05:55 Fasting Glucose 89 mg/dL (60-99) 09/30/23 05:50 Lactic Acid 0.9 mmol/L (0.5-2.0) 09/28/23 10:44 Calcium 8.4 mg/dL (8.4-10.2) 10/02/23 05:55 Magnesium Cancelled 10/01/23 08:11 Total Bilirubin 0.9 mg/dL (0.0-1.0) 09/28/23 10:44 Direct Bilirubin 0.3 mg/dL (0.0-0.5) 09/28/23 10:44 AST 19 U/L (5-31) 09/28/23 10:44 ALT 10 U/L (0-31) 09/28/23 10:44 Alkaline Phosphatase 56 U/L (39-117) 09/28/23 10:44 Troponin I High Sens 14.8 ng/L (<3.5-17.0) D 09/28/23 10:44 B-Natriuretic Peptide 458 pg/mL (<100) H 09/28/23 10:44 Total Protein 5.8 g/dL (6.5-8.0) L 09/28/23 10:44 Albumin 3.5 g/dL (3.5-5.0) 09/28/23 10:44 Lipase 9 U/L (8-78) 09/28/23 10:44 Procalcitonin 0.02 ng/mL 09/28/23 10:44 Urine Color Yellow 09/28/23 11:44 Urine Appearance Turbid 09/28/23 11:44 Urine pH 7.0 (5.0-9.0) 09/28/23 11:44 Ur Specific [place] 1.015 (1.005-1.025) 09/28/23 11:44 Urine Protein 100 (2+) mg/dL (Neg-Trace) H 09/28/23 11:44 Urine Glucose (UA) Negative mg/dL (Negative) 09/28/23 11:44 Urine Ketones Trace mg/dL (Negative) 09/28/23 11:44 Urine Blood Small (1+) (Negative) H 09/28/23 11:44 Urine Nitrite Negative (Negative) 09/28/23 11:44 Ur Leukocyte Esterase Large (3+) (Negative) H 09/28/23 11:44 Urine RBC 11-20 /HPF (0-2) H 09/28/23 11:44 Urine WBC >50 /HPF (0-5) H 09/28/23 11:44 Ur Squamous Epith Cells 0-2 /HPF (0-2) 09/28/23 11:44 Urine Bacteria 4+ (None Seen) 09/28/23 11:44 Hyaline Casts 0-2 /LPF (0-2) 09/28/23 11:44 Stl C. cayetanensis PCR Not Detected (Not Detect.) 09/29/23 13:32 Stool Rotavirus A PCR Not Detected (Not Detect.) 09/29/23 13:32 Stl Adenov F 40/41 PCR Not Detected (Not Detect.) 09/29/23 13:32 Stool Astrovirus (PCR) Not Detected (Not Detect.) 09/29/23 13:32 Stool Campylobacter PCR Not Detected (Not Detect.) 09/29/23 13:32 Stool Cryptosporidium PCR Not Detected (Not Detect.) 09/29/23 13:32 Stl Sh Tox Pr E STEC PCR Not Detected (Not Detect.) 09/29/23 13:32 Stool E coli O157 PCR TNP 09/29/23 13:32 Stl Enterotoxigenic E PCR Not Detected (Not Detect.) 09/29/23 13:32 Stool EPEC (PCR) Not Detected (Not Detect.) 09/29/23 13:32 Stool EAEC (PCR) Not Detected (Not Detect.) 09/29/23 13:32 Stl E. histolytica PCR Not Detected (Not Detect.) 09/29/23 13:32 Stool Giardia Lamblia PCR Not Detected (Not Detect.) 09/29/23 13:32 Stl P. shigelloides PCR Not Detected (Not Detect.) 09/29/23 13:32 Stool Salmonella PCR Not Detected (Not Detect.) 09/29/23 13:32 Stool Sapovirus (PCR) Not Detected (Not Detect.) 09/29/23 13:32 Stl Shigella/EIEC PCR Not Detected (Not Detect.) 09/29/23 13:32 St Y.enterocolitica PCR Not Detected (Not Detect.) 09/29/23 13:32 Stool Vibrio (PCR) Not Detected (Not Detect.) 09/29/23 13:32 Stl Vibrio cholerae PCR Not Detected (Not Detect.) 09/29/23 13:32 Stl Norovirus GI/GII PCR Not Detected (Not Detect.) 09/29/23 13:32 C. difficile Tox B Gene NEGATIVE (Negative) 09/29/23 13:32 Influenza Type A (PCR) NEGATIVE (Negative) 09/28/23 10:58 Influenza Type B (PCR) NEGATIVE (Negative) 09/28/23 10:58 RSV RNA Qual (PCR) NEGATIVE (Negative) 09/28/23 10:58 SARS-CoV-2 RNA (RT-PCR) NEGATIVE (Negative) 09/28/23 10:58 - Imaging Radiologist's impression: ITS Impressions Chest X-Ray 09/28/23 10:02 IMPRESSION: Right upper lobe mass with partial right upper lobe collapse/consolidation. There may be mild improvement when compared to the recent study. Chest CTA 09/28/23 12:07 IMPRESSION: 1. No evidence of pulmonary emboli. 2. Right suprahilar mass with associated adenopathy and collapse of the right upper lobe. Mediastinal adenopathy appears slightly improved. VTE: negative. Assessment and Plan Patient Active problem list reviewed?: Yes (1) Small cell lung cancer Problem details: As noted above her recent bronchoscopic exam and bronchial biopsy are positive small cell carcinoma. Status: Acute Assessment and plan: 1. 63 year old lady with recent diagnosis of Small cell Lung Cancer, involving right hilum in August [address]23. CT chest with contrast revealed a right suprahilar mass measuring 5.8 x 4.1 cm encasing and occluding right upper lobe bronchus with complete collapse of right upper lobe. This is a small stable left upper lobe 1 cm pulmonary nodule, enlarged mediastinal lymph nodes with 1.4 x 2.7 x 2.4 cm pretracheal lymph node. No pleural effusion or axillary adenopathy. Adrenals normal, no evidence of osseous metastatic disease. She had a CT head without contrast which was negative for metastasis. Clinical stage T3 N2, Stage IIIB LDH mildly elevated at 274, CEA 12.1 NG/ mL. She had presented with severe hyponatremia with sodium of 116 millimole per L secondary to SIADH/lung cancer. PET scan performed at [facility] on 09/11/2023 showed FDG avid right hilar/suprahilar mass with SUV 12.6, FDG avid mediastinal and right hilar lymphadenopathy. Left supraclavicular lymph node SUV max 4.2, right supraclavicular lymph node SUV max 2, right paratracheal SUV max 9.4, anterior mediastinal SUV max 4.8. Nonspecific focal activity in anal canal SUV 15.3. Patient reports that she has had surgery for rectal prolapse and continues to have intermittent rectal bleeding which could account for the uptake in the anal canal. Brain MRI performed 09/10/2023 showed no evidence of intracranial metastatic disease. MediPort was placed for administration of chemotherapy on 09/17. She was started on chemotherapy on 09/22. 2. Hyponatremia secondary to SIADH. She is on sodium bicarbonate tablets. She was unable to tolerate a urea. She is now on fluid restriction as well. 3. Pancytopenia secondary to recent chemotherapy. She received 1 dose Granix on 10/01/2023. 4. Klebsiella UTI, she is on ceftriaxone. Agree with current management. Thank you. - Time Spent With Patient Time Spent with Patient (in minutes): 15
[2023-10-02] MEDS: Sucralfate 1 GM TABLET 4 GM PO (11:53)
[2023-10-02] MEDS: cefTRIAXone sodium 1 GM in 0.9 % Sodium Chloride 50 ML IV (12:35)
--- NOTE | 2023-10-02 12:38 | HO.PM.IMPN ---
Subjective Subjective Date of Service: 10/02/23 Interval History: Seen and evaluated this morning Pancytopenia worse of 1.5 with low PLT 53 Na of 134 this morning less anxious no other overnight events Physical Exam Vital Signs: Vital Signs: Last Vital Signs Temp 97.9 F 10/02/23 07:01 Pulse 70 10/02/23 07:30 Resp 16 10/02/23 07:30 BP 138/72 10/02/23 07:01 Pulse Ox 92 10/02/23 07:01 O2 Del Method Room Air 10/02/23 07:01 BMI result Body Mass Index 24.0 Const: Other: Constitutional : Awake, interactive, less anxious Neck : Normal inspection, Supple Cardiovascular : RRR, no JVP, no lower extremity edema Respiratory : good bilateral air entry, no crackles, wheezes or rhonchi Gastrointestinal: soft, lax, Normal bowel sounds, Non tender Skin : Warm, Dry Neurological : Alert & oriented x3, No focal deficit Objective Data Active Medications Acetaminophen (Acetaminophen 325 Mg Tablet) 650 mg PO Q6H PRN PRN Reason: Pain, Mild (Pain Scale 1-3), fever or headache Last Admin: 10/01/23 20:30 Dose: 650 mg Documented By: RAQUEL Albuterol Sulfate (Albuterol Sulfate 90 Mcg 8 Gm Inhaler) 1 puff INHALE Q6H PRN PRN Reason: shortness of breath or wheezing Budesonide (Budesonide 180 Mcg Aer.Pow.Ba) 2 puff INHALE RBID [facility] Last Admin: 10/02/23 07:29 Dose: 2 puff Documented By: CECILIA Calcium Carbonate (Calcium Carbonate 750 Mg Tab.Chew) 750 mg PO Q4H PRN PRN Reason: Heartburn Last Admin: 09/29/23 18:08 Dose: 750 mg Documented By: JOSE Clonazepam (Clonazepam 0.5 Mg Tablet) 0.5 mg PO BID [facility] Last Admin: 10/02/23 07:52 Dose: 0.5 mg Documented By: MUKUND Escitalopram Oxalate (Escitalopram Oxalate 20 Mg Tablet) 20 mg PO DAILY [facility] Last Admin: 09/29/23 08:13 Dose: 20 mg Documented By: JOSE Fluticasone Propionate (Fluticasone Propionate Nasal 16 Gm [place]) 1 spray NOSTRIL-B DAILY [facility] Last Admin: 10/02/23 07:52 Dose: Not Given Documented By: MUKUND Non-Admin Reason: Med Not Available Guaifenesin/Dextromethorphan (Guaifenesin Dm 100/10/5 Ml 5 Ml Syrup) 10 ml PO TID PRN PRN Reason: cough Heparin Sodium (Porcine) (Heparin Sodium,Porcine 5,000 Unit/Ml Vial) 5,000 unit SUBCUT Q12H [facility] Last Admin: 10/02/23 07:51 Dose: 5,000 unit Documented By: MUKUND Hydroxyzine HCl (Hydroxyzine Hcl 50 Mg Tablet) 50 mg PO BEDTIME [facility] Last Admin: 10/01/23 20:30 Dose: 50 mg Documented By: RAQUEL Ceftriaxone Sodium 1 gm/ (Sodium Chloride) 50 mls @ 100 mls/hr IV Q24H [facility] Last Admin: 10/02/23 12:35 Dose: 100 mls/hr Documented By: MUKUND Losartan Potassium (Losartan Potassium 25 Mg Tablet) 25 mg PO DAILY@0900 [facility]; Protocol Last Admin: 09/29/23 08:12 Dose: 25 mg Documented By: JOSE Magnesium Hydroxide (Milk Of Magnesia 30 Ml Oral.Susp) 30 ml PO DAILY PRN PRN Reason: Constipation Melatonin (Melatonin 3 Mg Tablet) 6 mg PO BEDTIME PRN PRN Reason: Insomnia Last Admin: 09/30/23 19:58 Dose: 6 mg Documented By: GLENIS Metoclopramide HCl (Metoclopramide Hcl 5 Mg Tablet) 5 mg PO TID [facility] Last Admin: 10/02/23 07:52 Dose: 5 mg Documented By: MUKUND Metoprolol Succinate (Metoprolol Succinate Er 50 Mg Tab.Er.24h) 50 mg PO DAILY [facility]; Protocol Last Admin: 10/02/23 07:51 Dose: 50 mg Documented By: MUKUND Mirtazapine (Mirtazapine 30 Mg Tablet) 30 mg PO BEDTIME [facility] Last Admin: 10/01/23 20:30 Dose: 30 mg Documented By: RAQUEL Morphine Sulfate (Morphine Sulfate 2 Mg/Ml Cartridge) 2 mg IVPUSH Q4H PRN; Protocol PRN Reason: Pain, Severe (Pain Scale 7-10) Last Admin: 10/02/23 11:09 Dose: 2 mg Documented By: MUKUND Nicotine (Nicotine 14 Mg Patch.Td24) 14 mg TRANSDERMA Q24H [facility] Last Admin: 10/01/23 14:16 Dose: 14 mg Documented By: MUKUND Non-Formulary Medication (Alosetron) 1 mg PO DAILY@0900 [facility] Omeprazole (Omeprazole 20 Mg Capsule.Dr) 20 mg PO DAILY@0630 [facility] Last Admin: 10/02/23 07:51 Dose: 20 mg Documented By: MUKUND Ondansetron HCl (Ondansetron Hcl 4 Mg/2 Ml Vial) 4 mg IVPUSH Q8H PRN PRN Reason: Nausea and Vomiting Last Admin: 10/01/23 21:44 Dose: 4 mg Documented By: RAQUEL Oxycodone HCl (Oxycodone Hcl Immed Release 5 Mg Tablet) 5 mg PO Q4H PRN PRN Reason: Pain, Moderate(Pain Scale 4-6) Last Admin: 10/02/23 07:51 Dose: 5 mg Documented By: MUKUND Prochlorperazine Edisylate (Prochlorperazine Edisylate 10 Mg/2 Ml Vial) 5 mg IVPUSH ONCE PRN PRN Reason: Nausea Sodium Chloride (0.9 % Sodium Chloride Flush 3 Ml Syringe) 3 ml IVFLUSH QSHIFT [facility] Last Admin: 10/02/23 07:50 Dose: 3 ml Documented By: MUKUND Sodium Chloride (Sodium Chloride Tab 1 Gm Tablet) 2 gm PO TID [facility] Last Admin: 10/02/23 07:52 Dose: 2 gm Documented By: MUKUND Sucralfate (Sucralfate 1 Gm Tablet) 4 gm PO DAILY@1200 [facility] Last Admin: 10/02/23 11:53 Dose: 4 gm Documented By: MUKUND Tiotropium Innis (Tiotropium Innis 2.5 Mcg 1 Puff/2.5 Mcg Mist.Inhal) 2 puff INHALE RDAILY [facility] Last Admin: 10/02/23 07:28 Dose: 2 puff Documented By: CECILIA Tolterodine Tartrate (Tolterodine Tartrate La 4 Mg Cap.Er.24h) 4 mg PO DAILY@0900 [facility] Last Admin: 10/02/23 07:51 Dose: 4 mg Documented By: MUKUND Vitamin D (Cholecalciferol (Vitamin D3) 25 Mcg Tablet) 50 mcg PO DAILY@0900 [facility] Last Admin: 10/02/23 07:51 Dose: 50 mcg Documented By: MUKUND Labs 10/02/23 08:15 10/02/23 05:55 Labs: Laboratory Results - last 24 hr 10/01/23 10/01/23 10/01/23 07:48 12:40 18:41 MCV MCH MCHC RDW Plt Count MPV Absolute Nucleated RBC Nucleated RBC % (auto) Smear Path Review Hold Purple Top Anion Gap 13 12 Estim Creat Clear Calc 59.1 63.2 Estimated GFR > 60 > 60 Random Glucose 98 122 H Calcium 8.5 8.3 L 10/02/23 10/02/23 10/02/23 00:15 05:55 08:15 MCV 80.1 MCH 27.1 MCHC 33.9 RDW 13.8 Plt Count 53 L MPV 9.8 Absolute Nucleated RBC 0.000 Nucleated RBC % (auto) 0.0 Smear Path Review Hold Purple Top SEE NOTE Anion Gap 11 L 13 Estim Creat Clear Calc 52.2 54.1 Estimated GFR > 60 > 60 Random Glucose 115 108 Calcium 8.4 8.4 Assessment and Plan (1) Adjustment disorder with mixed anxiety and depressed mood: Status: Acute (2) Acute UTI: Status: Acute (3) Nausea & vomiting: Status: Acute (4) Hypomagnesemia: Status: Acute (5) Pancytopenia: Status: Acute Plan 62F PMH COPD, IVDA, hepatitis-C, hypertension, hyperlipidemia, anemia, GERD, IBS, gastroparesis, mood disorder, 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 presented with nausea and vomiting Acute Pancytopenia WBCs of 1.5 secondary to recent chemotherapy monitor CBC Oncology following received Filgrastim neutropenic precautions Acute on chronic hyponatremia Due to 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 Sodium improved to 134 Continue fluid restriction, Continue sodium tablets can not tolerate urea Nephrology following Monitor sodium levels Nausea vomiting due to chemotherapy Improved but still gets nauseated Reglan atc PRN Zofran advanced diet Acute hypokalemia replacement given Anxiety, depression Psychiatry input appreciated, Acute hypomagnesemia Give IV Replacement Acute UTI Klebsiella in urine Ceftriaxone IV and change to Ceftin PO upon discharge Small-cell lung cancer Follow up Oncology COPD Continue inhalers Hypertension Losartan, metoprolol GERD PPI DVT prophylaxis with heparin subQ Full code reason for continued hospitalization: severe Hyponatremia and leukocytopenia Quality Stroke Does the patient have a stroke diagnosis?: No VTE Prior VTE?: No VTE Risk Level:: Medical - moderate - high VTE Device Contraindication: Treatment Not Indicated VTE Drug Contraindication: N/A - Med Ordered
--- NOTE | 2023-10-02 12:54 | MHC.CM.PN ---
PER MD ROUNDS PATIENT IS NOT MEDICALLY CLEARED FOR DC. NO CHANGE TO DC PLAN. PT REC HOME W/ SERVICES, BUT PATIENT HAS DECLINED. CM WILL CONTINUE TO FOLLOW FOR DC NEEDS.
[2023-10-02 13:00] LABS: Anion Gap 11 (12-20); Blood Urea Nitrogen 22 mg/dL (9-16); Calcium 8.3 mg/dL (8.4-10.2); Carbon Dioxide 27 mmol/L (22-29); Chloride 100 mmol/L (96-108); Creatinine Clr Calc Pharmacy 54.1; Estimated Glomerular Filt Rate > 60; Glucose Random 106 mg/dL (60-115); Sodium 134 mmol/L (135-145)
[2023-10-02] MEDS: Nicotine 14 MG PATCH.TD24 TRANSDERMA (14:21)
--- NOTE | 2023-10-02 16:01 | P.PNNP_ITS ---
Subjective Subjective Date of Service: 10/02/23 Interval history: Seen and evaluated this morning ; Na 134 this morning ;no other overnight events Physical Exam 2 Vital Signs: Vital Signs: Last Vital Signs Temp 97.9 F 10/02/23 07:01 Pulse 70 10/02/23 07:30 Resp 16 10/02/23 07:30 BP 138/72 10/02/23 07:01 Pulse Ox 92 10/02/23 07:01 O2 Del Method Room Air 10/02/23 07:01 BMI result Body Mass Index 24.0 Const: General: no acute distress Neck: Neck: Yes supple Resp: Auscultation: diminished lung sounds Cardio: Rate: regular rate GI: Palpation (GI): Soft to palpation Neuro: General: moves all extremities Objective Data Labs 10/02/23 08:15 10/02/23 12:11 Labs: Laboratory Results - last 24 hr 10/01/23 10/02/23 10/02/23 18:41 00:15 05:55 WBC RBC Hgb Hct MCV MCH MCHC RDW Plt Count MPV Absolute Nucleated RBC Nucleated RBC % (auto) Hold Purple Top SEE NOTE Sodium 128 L 130 L 133 L Potassium 3.5 4.2 3.6 Chloride 97 99 98 Carbon Dioxide 23 24 26 Anion Gap 12 11 L 13 BUN 21 H 23 H 25 H Creatinine 0.71 0.86 0.83 Estim Creat Clear Calc 63.2 52.2 54.1 Estimated GFR > 60 > 60 > 60 Random Glucose 122 H 115 108 Calcium 8.3 L 8.4 8.4 10/02/23 10/02/23 08:15 12:11 WBC 1.5 L RBC 3.17 L Hgb 8.6 L Hct 25.4 L MCV 80.1 MCH 27.1 MCHC 33.9 RDW 13.8 Plt Count 53 L MPV 9.8 Absolute Nucleated RBC 0.000 Nucleated RBC % (auto) 0.0 Hold Purple Top Sodium 134 L Potassium 4.0 Chloride 100 Carbon Dioxide 27 Anion Gap 11 L BUN 22 H Creatinine 0.83 Estim Creat Clear Calc 54.1 Estimated GFR > 60 Random Glucose 106 Calcium 8.3 L Microbiology Microbiology Results: Microbiology 09/28/23 10:58 Blood - Venous Blood Culture - Preliminary No growth after 48 hours. 09/28/23 10:44 Blood - Venous Blood Culture - Preliminary No growth after 48 hours. 09/28/23 Unknown Urine clean catch - Urine garcia top Urine Culture - Final Klebsiella pneumoniae Procedures Date of Service Date of Service: 10/02/23 Assessment & Plan Assessment and plan (1) Hyponatremia: Status: Acute Plan Hyponatremia due to excess ADH Could not tolerate oral urea Na has improved to 134 Continue current dosage of oral sodium chloride Needs fluid restriction. Monitor serum sodium closely Progress Note: Quality Stroke Does the patient have a stroke diagnosis?: No
[2023-10-02] MEDS: Mirtazapine 30 MG TABLET PO (20:57)
[2023-10-02] MEDS: hydrOXYzine HCL 50 MG TABLET PO (20:57)
[2023-10-03] VITALS (11 sets, daily range): BP systolic 112–169; BP diastolic 55–78; PULSE 74–83; RESP 12–18; TEMP 36–36.8; O2SAT 92–94
[2023-10-03] MEDS: Morphine Sulfate 2 MG/ML CARTRIDGE IVPUSH ×5 (01:09→21:55)
[2023-10-03 06:41] LABS: Hematocrit 22.8 % (37.0-47.0); Hemoglobin 7.7 g/dl (12.0-16.0); Mean Corpuscular HGB Conc 33.8 g/dl (31.0-35.0); Mean Corpuscular Hemoglobin 27.2 pg (27.0-33.0); Mean Corpuscular Volume 80.6 fL (80.0-98.0); Red Blood Count 2.83 X10*6/uL (4.20-5.50); White Blood Count 1.1 X10*3/uL (4.8-10.8)
[2023-10-03 06:42] LABS: Platelet Count 37 X10*3/uL (160-400)
[2023-10-03] MEDS: Omeprazole 20 MG CAPSULE.DR PO (06:48)
[2023-10-03 06:52] LABS: Anion Gap 12 (12-20); Blood Urea Nitrogen 19 mg/dL (9-16); Calcium 8.4 mg/dL (8.4-10.2); Carbon Dioxide 25 mmol/L (22-29); Chloride 103 mmol/L (96-108); Creatinine Clr Calc Pharmacy 56.9; Estimated Glomerular Filt Rate > 60; Glucose Random 98 mg/dL (60-115); Potassium 3.6 mmol/L (3.3-5.1); Sodium 136 mmol/L (135-145)
[2023-10-03] MEDS: 0.9 % Sodium Chloride Flush 3 ML SYRINGE IVFLUSH ×2 (07:41→15:50)
[2023-10-03] MEDS: Heparin Sodium,Porcine 5,000 UNIT/ML VIAL 5000 UNIT SUBCUT (07:41)
[2023-10-03] MEDS: Tiotropium Bromide 2.5 mcg 1 PUFF/2.5 MCG MIST.INHAL 2 PUFF INHALE (07:45)
[2023-10-03] MEDS: Budesonide 180 MCG AER.POW.BA 2 PUFF INHALE ×2 (07:45→19:49)
[2023-10-03] MEDS: Sodium Chloride Tab 1 GM TABLET 2 GM PO ×3 (08:46→20:28)
[2023-10-03] MEDS: clonazePAM 0.5 MG TABLET PO ×2 (08:46→20:27)
[2023-10-03] MEDS: Metoclopramide HCl 5 MG TABLET PO ×3 (08:46→20:28)
[2023-10-03] MEDS: Tolterodine Tartrate LA 4 MG CAP.ER.24H PO (08:46)
[2023-10-03] MEDS: Cholecalciferol (Vitamin D3) 25 MCG TABLET 50 MCG PO (08:46)
[2023-10-03] MEDS: Metoprolol Succinate ER 50 MG TAB.ER.24H PO (08:47)
[2023-10-03] MEDS: oxyCODONE HCl Immed Release 5 MG TABLET PO ×2 (10:24→14:44)
[2023-10-03] MEDS: cefTRIAXone sodium 1 GM in 0.9 % Sodium Chloride 50 ML IV (11:57)
[2023-10-03] MEDS: Sucralfate 1 GM TABLET 4 GM PO (11:57)
--- NOTE | 2023-10-03 12:09 | HO.PM.IMPN ---
Subjective Subjective Date of Service: 10/03/23 Interval History: Seen and evaluated this morning Pancytopenia worse of 1.1 with low PLT 38 Feels weak and has no energy Na normal this morning no other overnight events Review of Systems Review of Systems: Yes all other systems are reviewed and are negative Physical Exam Vital Signs: Vital Signs: Last Vital Signs Temp 96.9 F 10/03/23 07:28 Pulse 80 10/03/23 08:46 Resp 18 10/03/23 11:57 BP 169/78 H 10/03/23 08:46 Pulse Ox 93 10/03/23 07:28 O2 Del Method Room Air 10/03/23 07:28 BMI result Body Mass Index 24.0 Const: Other: Constitutional : Awake, interactive, less anxious Neck : Normal inspection, Supple Cardiovascular : RRR, no JVP, no lower extremity edema Respiratory : good bilateral air entry, no crackles, wheezes or rhonchi Gastrointestinal: soft, lax, Normal bowel sounds, Non tender Skin : Warm, Dry Neurological : Alert & oriented x3, No focal deficit Objective Data Active Medications Acetaminophen (Acetaminophen 325 Mg Tablet) 650 mg PO Q6H PRN PRN Reason: Pain, Mild (Pain Scale 1-3), fever or headache Last Admin: 10/01/23 20:30 Dose: 650 mg Documented By: RAQUEL Albuterol Sulfate (Albuterol Sulfate 90 Mcg 8 Gm Inhaler) 1 puff INHALE Q6H PRN PRN Reason: shortness of breath or wheezing Budesonide (Budesonide 180 Mcg Aer.Pow.Ba) 2 puff INHALE RBID COUNTS INCLUDE 234 BEDS AT THE [facility] Last Admin: 10/03/23 07:45 Dose: 2 puff Documented By: JEN Calcium Carbonate (Calcium Carbonate 750 Mg Tab.Chew) 750 mg PO Q4H PRN PRN Reason: Heartburn Last Admin: 09/29/23 18:08 Dose: 750 mg Documented By: JOSE Clonazepam (Clonazepam 0.5 Mg Tablet) 0.5 mg PO BID [facility]S [facility]CLUDE 234 BEDS AT [facility] Last Admin: 10/03/23 08:46 Dose: 0.5 mg Documented By: ARNALDO Escitalopram Oxalate (Escitalopram Oxalate 20 Mg Tablet) 20 mg PO DAILY [facility]CLUDE 234 BEDS AT [facility] Last Admin: 09/29/23 08:13 Dose: 20 mg Documented By: JOSE Fluticasone Propionate (Fluticasone Propionate Nasal 16 Gm [place]) 1 spray NOSTRIL-B DAILY [facility]CLUDE 234 BEDS AT [facility] Last Admin: 10/03/23 08:46 Dose: Not Given Documented By: ARNALDO Non-Admin Reason: Patient Refused Guaifenesin/Dextromethorphan (Guaifenesin Dm 100/10/5 Ml 5 Ml Syrup) 10 ml PO TID PRN PRN Reason: cough Heparin Sodium (Porcine) (Heparin Sodium,Porcine 5,000 Unit/Ml Vial) 5,000 unit SUBCUT Q12H [facility]S [facility]CLUDE 234 BEDS AT [facility] Last Admin: 10/03/23 07:41 Dose: 5,000 unit Documented By: DELMIS Hydroxyzine HCl (Hydroxyzine Hcl 50 Mg Tablet) 50 mg PO BEDTIME [facility]S [facility]CLUDE 234 BEDS AT [facility] Last Admin: 10/02/23 20:57 Dose: 50 mg Documented By: LAINA Ceftriaxone Sodium 1 gm/ (Sodium Chloride) 50 mls @ 100 mls/hr IV Q24H [facility]S INCLUDE 234 BEDS AT [facility] Last Admin: 10/03/23 11:57 Dose: 100 mls/hr Documented By: ARNALDO Losartan Potassium (Losartan Potassium 25 Mg Tablet) 25 mg PO DAILY@0900 [facility]S [facility]CLUDE 234 BEDS AT [facility]; Protocol Last Admin: 09/29/23 08:12 Dose: 25 mg Documented By: JOSE Magnesium Hydroxide (Milk Of Magnesia 30 Ml Oral.Susp) 30 ml PO DAILY PRN PRN Reason: Constipation Melatonin (Melatonin 3 Mg Tablet) 6 mg PO BEDTIME PRN PRN Reason: Insomnia Last Admin: 09/30/23 19:58 Dose: 6 mg Documented By: SELENAQC Metoclopramide HCl (Metoclopramide Hcl 5 Mg Tablet) 5 mg PO TID [facility]S [facility]CLUDE 234 BEDS AT [facility] Last Admin: 10/03/23 08:46 Dose: 5 mg Documented By: ARNALDO Metoprolol Succinate (Metoprolol Succinate Er 50 Mg Tab.Er.24h) 50 mg PO DAILY [facility]CLUDE 234 BEDS AT [facility]; Protocol Last Admin: 10/03/23 08:47 Dose: 50 mg Documented By: ARNALDO Mirtazapine (Mirtazapine 30 Mg Tablet) 30 mg PO BEDTIME [facility]S [facility]CLUDE 234 BEDS AT [facility] Last Admin: 10/02/23 20:57 Dose: 30 mg Documented By: LAINA Morphine Sulfate (Morphine Sulfate 2 Mg/Ml Cartridge) 2 mg IVPUSH Q4H PRN; Protocol PRN Reason: Pain, Severe (Pain Scale 7-10) Last Admin: 10/03/23 11:57 Dose: 2 mg Documented By: ARNALDO Nicotine (Nicotine 14 Mg Patch.Td24) 14 mg TRANSDERMA Q24H [facility]S INCLUDE 234 BEDS AT [facility] Last Admin: 10/02/23 14:21 Dose: 14 mg Documented By: MUKUND Non-Formulary Medication (Alosetron) 1 mg PO DAILY@0900 [facility]S [facility]CLUDE 234 BEDS AT [facility] Omeprazole (Omeprazole 20 Mg Capsule.Dr) 20 mg PO DAILY@0630 [facility]S INCLUDE 234 BEDS AT [facility] Last Admin: 10/03/23 06:48 Dose: 20 mg Documented By: LAINA Ondansetron HCl (Ondansetron Hcl 4 Mg/2 Ml Vial) 4 mg IVPUSH Q8H PRN PRN Reason: Nausea and Vomiting Last Admin: 10/01/23 21:44 Dose: 4 mg Documented By: RAQUEL Oxycodone HCl (Oxycodone Hcl Immed Release 5 Mg Tablet) 5 mg PO Q4H PRN PRN Reason: Pain, Moderate(Pain Scale 4-6) Last Admin: 10/03/23 10:24 Dose: 5 mg Documented By: ARNALDO Prochlorperazine Edisylate (Prochlorperazine Edisylate 10 Mg/2 Ml Vial) 5 mg IVPUSH ONCE PRN PRN Reason: Nausea Sodium Chloride (0.9 % Sodium Chloride Flush 3 Ml Syringe) 3 ml IVFLUSH QSHIFT COUNTS INCLUDE 234 BEDS AT [facility] Last Admin: 10/03/23 07:41 Dose: 3 ml Documented By: MCGINNM Sodium Chloride (Sodium Chloride Tab 1 Gm Tablet) 2 gm PO TID COUNTS INCLUDE 234 BEDS AT [facility] Last Admin: 10/03/23 08:46 Dose: 2 gm Documented By: ARNALDO Sucralfate (Sucralfate 1 Gm Tablet) 4 gm PO DAILY@1200 [facility]S INCLUDE 234 BEDS AT [facility] Last Admin: 10/03/23 11:57 Dose: 4 gm Documented By: ARNALDO Tiotropium [place] (Tiotropium [place] 2.5 Mcg 1 Puff/2.5 Mcg Mist.Inhal) 2 puff INHALE RDAILY COUNTS INCLUDE 234 BEDS AT THE [facility] Last Admin: 10/03/23 07:45 Dose: 2 puff Documented By: JEN Tolterodine Tartrate (Tolterodine Tartrate La 4 Mg Cap.Er.24h) 4 mg PO DAILY@0900 COUNTS INCLUDE 234 BEDS AT [facility] Last Admin: 10/03/23 08:46 Dose: 4 mg Documented By: ARNALDO Vitamin D (Cholecalciferol (Vitamin D3) 25 Mcg Tablet) 50 mcg PO DAILY@09 COUNTS INCLUDE 234 BEDS AT THE [facility] Last Admin: 10/03/23 08:46 Dose: 50 mcg Documented By: ARNALDO Labs 10/03/23 05:47 10/03/23 05:47 Labs: Laboratory Results - last 24 hr 10/02/23 10/03/23 12:11 05:47 MCV 80.6 MCH 27.2 MCHC 33.8 RDW 14.0 Plt Count 37 L D MPV 9.0 L Absolute Nucleated RBC 0.000 Nucleated RBC % (auto) 0.0 Anion Gap 11 L 12 Estim Creat Clear Calc 54.1 56.9 Estimated GFR > 60 > 60 Random Glucose 106 98 Calcium 8.3 L 8.4 Assessment and Plan (1) Pancytopenia: Status: Acute (2) Adjustment disorder with mixed anxiety and depressed mood: Status: Acute (3) Acute UTI: Status: Acute (4) Hyponatremia: Status: Acute Plan 62F PMH COPD, IVDA, hepatitis-C, hypertension, hyperlipidemia, anemia, GERD, IBS, gastroparesis, mood disorder, 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 presented with nausea and vomiting Acute Pancytopenia WBCs of 1.1, PLT 38, no fever or bleeding secondary to recent chemotherapy monitor CBC Oncology following received Filgrastim neutropenic precautions Acute on chronic hyponatremia Due to 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 Sodium improved to normal Continue fluid restriction, Continue sodium tablets can not tolerate urea Nephrology following Monitor sodium levels Nausea vomiting due to chemotherapy Improved but still gets nauseated Reglan atc PRN Zofran advanced diet Acute hypokalemia replacement given Anxiety, depression Psychiatry input appreciated Acute hypomagnesemia Give IV Replacement Acute UTI Klebsiella in urine Ceftriaxone IV and change to Ceftin PO upon discharge Small-cell lung cancer Follow up Oncology COPD Continue inhalers Hypertension Losartan, metoprolol GERD PPI DVT prophylaxis Hold heparin subQ for low PLT Full code reason for continued hospitalization: leukocytopenia with weakness and risk of fall, to monitor blood values and physical strength Quality Stroke Does the patient have a stroke diagnosis?: No VTE Prior VTE?: No VTE Risk Level:: Medical - moderate - high VTE Device Contraindication: Treatment Not Indicated VTE Drug Contraindication: N/A - Med Ordered
--- NOTE | 2023-10-03 13:53 | PM.HEMONCPN ---
Medical Summary - Medical Summary Date of Service: 10/03/23 Chief complaint: lung cancer Primary Care Provider: Sarthak Person MD Medical Summary: She was admitted for weakness and FTT.She says she is feeling better. Interval History Interval history: Sarah Medina is a 63 year old lady, with history of IVDA, history of hepatitis-C, recent admission to [facility] [facility] from 08/23-09/04 where she was diagnosed with small cell lung cancer with post obstructive pneumonia and SIADH. She had PET scan showing L and R supraclavicular node, paratracheal /mediastinal. negative brain MRI. She presented to the ED yesterday, for evaluation of retrostrernal non radiating chest pain and nausea/vomiting diarrhea that started 2 days ago, started chemo on friday 09/22. She also had productive cough and shortness of breath. No weight gain or orthopnea. Denies anorexia, has been eating and drinking without difficult. Endorses significant anxiety. Overall, she is feeling better. She was unable to tolerate urea tablets but is able to and just sodium bicarbonate tablets. She denies fever or chills. No sore throat or cough. Review of Systems - Constitutional Reports anorexia, Reports fatigue - Eyes Reports pain - ENT Reports other - Cardiovascular Reports chest pain - Respiratory Reports cough - Gastrointestinal Reports abdominal pain, Reports nausea - Musculoskeletal Reports numbness - Neurologic Reports system reviewed and no additional complaints, except as documented, Reports weakness, Denies focal weakness [facility] Medical History: Medical History (Last Reviewed 09/28/23 @ 15:06 by YEVGENIY Fernandez) Abnormal CT scan, chest Allergic rhinitis Anxiety Benign essential hypertension Bronchitis Cervical spondylosis COPD (chronic obstructive pulmonary disease) Early satiety Endocarditis of mitral valve Onset Date: ~11/2017 Facet arthritis of lumbar region GERD (gastroesophageal reflux disease) History of hepatitis C IV drug user Lung mass Mass of right lung MDD (major depressive disorder), recurrent episode, moderate Mitral regurgitation Mitral valve prolapse Nicotine dependence, cigarettes, uncomplicated Nonrheumatic mitral (valve) insufficiency Osteopenia Onset Date: ~2011 Paresthesia of left leg Pulmonary nodule Pure hypercholesterolemia Rectal prolapse Small cell lung cancer Onset Date: ~08/2023 Vitamin D deficiency Functional capacity: wheelchair bound Family History: Family History (Last Reviewed 09/28/23 @ 15:06 by YEVGENIY Fernandez) Father Internal bleeding Mother Medical history unknown Surgical History: Surgical History (Last Reviewed 09/28/23 @ 15:06 by YEVGENIY Fernandez) History of bronchoscopy Onset Date: ~2023 History of colonoscopy Onset Date: ~2017 History of hysteroscopy Onset Date: ~2010 History of liver biopsy Onset Date: ~2009 History of partial colectomy Onset Date: ~2014 Social History: Social History (Last Reviewed 09/28/23 @ 15:06 by YEVGENIY Fernandez) Living Situation History: Household Members: None Housing: House Housing Other:: lives alone with her cat Malena Do you presently have visiting nurse or other home services: No Alcohol History Details: 1. How often do you have a drink containing alcohol?: a. Never AUDIT-C Alcohol total score: 0 Currently Displaying Signs/Symptoms of Alcohol Withdrawal: No Tobacco History: Patient Tobacco Use Status: Never used Tobacco Tobacco use type: Cigarette Cigarette Packs Per Day: 0.5 Years Smoked: 45 years (onset 15, 1/2-3/4ppd x 45yrs, 28pyh) Smoked in Last 30 Days: Yes e-Cigarette/Vaping Use: Never Used Patient Interested in Nicotine Replacement: Yes Patient Given Instructions on How to Stop Smoking: Yes Date Education Initiated: 09/28/23 Second Hand Smoke Exposure: Yes Substance Use History: Use of substances other than those prescribed or required for medical reasons: No Substance Use Type: Marijuana Currently Displaying Signs/Symptoms of Drug Intoxication Withdrawal: No Any prior treatment program specific to substance use: No Domestic Abuse History: Have you been hit, kicked, punched, or otherwise hurt by someone within the past year? If so, by whom?: No Do you feel safe in your current relationship?: No Is there a partner from a previous relationship who is making you feel unsafe now?: No Are you made to feel afraid or neglected: No Advance Directives: Advance Directives: Yes Advance Directives on File: Yes Advance Directives Date on File: 12/18/21 Homicidal Assessment: Do you have a plan to hurt others: No Plan Nutrition Assessment: Recently lost weight without trying: Unsure How much weight loss: Unsure Eating poorly because of decreased appetite: Yes Nutrition screen score: 5 Nutrition Risks: No Nutritional Risk Patient : No : No Poor oral hygiene: No Occupation Assessmet: service: No Current occupational status: unemployed Sex/Gender Assessment: Sexual orientation: Straight/Heterosexual Gender identity: Female Home Medications and Allergies Current Medications: Current Medications Acetaminophen (Acetaminophen 325 Mg Tablet) 650 mg PO Q6H PRN PRN Reason: Pain, Mild (Pain Scale 1-3), fever or headache Last Admin: 10/01/23 20:30 Dose: 650 mg Albuterol Sulfate (Albuterol Sulfate 90 Mcg 8 Gm Inhaler) 1 puff INHALE Q6H PRN PRN Reason: shortness of breath or wheezing Budesonide (Budesonide 180 Mcg Aer.Pow.Ba) 2 puff INHALE RBID [facility] Last Admin: 10/03/23 07:45 Dose: 2 puff Calcium Carbonate (Calcium Carbonate 750 Mg Tab.Chew) 750 mg PO Q4H PRN PRN Reason: Heartburn Last Admin: 09/29/23 18:08 Dose: 750 mg Clonazepam (Clonazepam 0.5 Mg Tablet) 0.5 mg PO BID [facility] Last Admin: 10/03/23 08:46 Dose: 0.5 mg Escitalopram Oxalate (Escitalopram Oxalate 20 Mg Tablet) 20 mg PO DAILY [facility] Last Admin: 09/29/23 08:13 Dose: 20 mg Fluticasone Propionate (Fluticasone Propionate Nasal 16 Gm [place]) 1 spray NOSTRIL-B DAILY [facility] Last Admin: 10/03/23 08:46 Dose: Not Given Guaifenesin/Dextromethorphan (Guaifenesin Dm 100/10/5 Ml 5 Ml Syrup) 10 ml PO TID PRN PRN Reason: cough Heparin Sodium (Porcine) (Heparin Sodium,Porcine 5,000 Unit/Ml Vial) 5,000 unit SUBCUT Q12H [facility] Last Admin: 10/03/23 07:41 Dose: 5,000 unit Hydroxyzine HCl (Hydroxyzine Hcl 50 Mg Tablet) 50 mg PO BEDTIME [facility] Last Admin: 10/02/23 20:57 Dose: 50 mg Ceftriaxone Sodium 1 gm/ (Sodium Chloride) 50 mls @ 100 mls/hr IV Q24H [facility] Last Infusion: 10/03/23 12:42 Dose: Infused Losartan Potassium (Losartan Potassium 25 Mg Tablet) 25 mg PO DAILY@0900 [facility]; Protocol Last Admin: 09/29/23 08:12 Dose: 25 mg Magnesium Hydroxide (Milk Of Magnesia 30 Ml Oral.Susp) 30 ml PO DAILY PRN PRN Reason: Constipation Melatonin (Melatonin 3 Mg Tablet) 6 mg PO BEDTIME PRN PRN Reason: Insomnia Last Admin: 09/30/23 19:58 Dose: 6 mg Metoclopramide HCl (Metoclopramide Hcl 5 Mg Tablet) 5 mg PO TID [facility] Last Admin: 10/03/23 08:46 Dose: 5 mg Metoprolol Succinate (Metoprolol Succinate Er 50 Mg Tab.Er.24h) 50 mg PO DAILY [facility]; Protocol Last Admin: 10/03/23 08:47 Dose: 50 mg Mirtazapine (Mirtazapine 30 Mg Tablet) 30 mg PO BEDTIME [facility] Last Admin: 10/02/23 20:57 Dose: 30 mg Morphine Sulfate (Morphine Sulfate 2 Mg/Ml Cartridge) 2 mg IVPUSH Q4H PRN; Protocol PRN Reason: Pain, Severe (Pain Scale 7-10) Last Admin: 10/03/23 11:57 Dose: 2 mg Nicotine (Nicotine 14 Mg Patch.Td24) 14 mg TRANSDERMA Q24H [facility] Last Admin: 10/02/23 14:21 Dose: 14 mg Non-Formulary Medication (Alosetron) 1 mg PO DAILY@0900 [facility] Omeprazole (Omeprazole 20 Mg Capsule.Dr) 20 mg PO DAILY@0630 [facility] Last Admin: 10/03/23 06:48 Dose: 20 mg Ondansetron HCl (Ondansetron Hcl 4 Mg/2 Ml Vial) 4 mg IVPUSH Q8H PRN PRN Reason: Nausea and Vomiting Last Admin: 10/01/23 21:44 Dose: 4 mg Oxycodone HCl (Oxycodone Hcl Immed Release 5 Mg Tablet) 5 mg PO Q4H PRN PRN Reason: Pain, Moderate(Pain Scale 4-6) Last Admin: 10/03/23 10:24 Dose: 5 mg Prochlorperazine Edisylate (Prochlorperazine Edisylate 10 Mg/2 Ml Vial) 5 mg IVPUSH ONCE PRN PRN Reason: Nausea Sodium Chloride (0.9 % Sodium Chloride Flush 3 Ml Syringe) 3 ml IVFLUSH QSHIFT [facility] Last Admin: 10/03/23 07:41 Dose: 3 ml Sodium Chloride (Sodium Chloride Tab 1 Gm Tablet) 2 gm PO TID [facility] Last Admin: 10/03/23 08:46 Dose: 2 gm Sucralfate (Sucralfate 1 Gm Tablet) 4 gm PO DAILY@1200 [facility] Last Admin: 10/03/23 11:57 Dose: 4 gm Tiotropium [place] (Tiotropium [place] 2.5 Mcg 1 Puff/2.5 Mcg Mist.Inhal) 2 puff INHALE RDAILY [facility] Last Admin: 10/03/23 07:45 Dose: 2 puff Tolterodine Tartrate (Tolterodine Tartrate [place] 4 Mg Cap.Er.24h) 4 mg PO DAILY@09 [facility] Last Admin: 10/03/23 08:46 Dose: 4 mg Vitamin D (Cholecalciferol (Vitamin D3) 25 Mcg Tablet) 50 mcg PO DAILY@09 [facility] Last Admin: 10/03/23 08:46 Dose: 50 mcg Home Medications ?Medication ?Instructions ?Recorded ?Confirmed ?Type alosetron 0.5 mg tablet 1 mg PO DAILY@0907/22/23 09/28/23 History cholecalciferol (vitamin D3) 50 50 mcg PO DAILY@0907/22/23 09/28/23 History mcg (2,000 unit) capsule pantoprazole 40 mg tablet,delayed 40 mg PO DAILY@0607/22/23 09/28/23 History release solifenacin 10 mg tablet 10 mg PO DAILY@0907/22/23 09/28/23 History tiotropium bromide 18 mcg capsule 1 cap inhalation DAILY@0900 copd 07/22/23 09/28/23 History with inhalation device (Spiriva with HandiHaler) sucralfate 1 gram tablet (Carafate) 4 g PO DAILY@1200 07/25/23 09/28/23 History budesonide 180 mcg/actuation 2 inh inhalation BID 09/28/23 09/28/23 History breath activated powder inhaler (Pulmicort Flexhaler) lorazepam 1 mg tablet 1 mg PO BID 09/28/23 09/28/23 History oxycodone 5 mg tablet 5 - 10 mg PO DAILY PRN pain 09/28/23 09/28/23 History Allergies Allergy/AdvReac Type Severity Reaction Status Date / Time No Known Allergies Allergy Unknown unknown Verified 09/28/23 09:37 [NO KNOWN ALLERGIES] Exam Vital signs: Vital Signs Temp 96.9 F 10/03/23 07:28 Pulse 80 10/03/23 08:46 Resp 18 10/03/23 11:57 BP 169/78 H 10/03/23 08:46 Pulse Ox 93 10/03/23 07:28 O2 Del Method Room Air 10/03/23 07:28 Intake & Output 10/02/23 10/03/23 10/03/23 18:59 06:59 18:59 Intake Total 470 / 1070 600 / 1070 50 / 50 Balance 470 / 1070 600 / 1070 50 / 50 Intake: Intake, Oral Amount 420 / 1020 600 / 1020 Intake, IV Amount 50 / 50 50 / 50 cefTRIAXone sodium 1 gm In 0.9 50 / 50 50 / 50 % Sodium Chloride 50 ml @ 100 mls/hr IV Q24H [facility] Rx#: [id number] Other: Meal Refused No NPO No Breakfast % Eaten 25% Lunch % Eaten 50% Dinner % Eaten 75% 100% Eating (Feeding) Ability Independent Number of Unmeasured Voids 3 2 Urine Bathroom Bathroom Weight 59.5 kg BMI result Body Mass Index 24.0 - Constitutional Present: no acute distress, mild distress - Routine HEENT Exam Head: Present: atraumatic, normal inspection, normocephalic - Routine Neck Exam Present: full ROM, lymphadenopathy - Routine Respiratory Exam Present: decreased breath sounds - Routine Cardiovascular Exam Cardiovascular: Present: RRR, S1, S2 - Routine Abdominal Exam Present: soft, nontender - Routine Extremities Exam Present: full ROM, nontender - Routine Skin Exam Present: intact - Routine Neurological Exam Present: alert, oriented X3 Data - Labs CBC & Chem 7: 10/03/23 05:47 10/03/23 05:47 - Imaging Radiologist's impression: ITS Impressions Chest X-Ray 09/28/23 10:02 IMPRESSION: Right upper lobe mass with partial right upper lobe collapse/consolidation. There may be mild improvement when compared to the recent study. Chest CTA 09/28/23 12:07 IMPRESSION: 1. No evidence of pulmonary emboli. 2. Right suprahilar mass with associated adenopathy and collapse of the right upper lobe. Mediastinal adenopathy appears slightly improved. VTE: negative. Assessment and Plan Patient Active problem list reviewed?: Yes (1) Small cell lung cancer Problem details: As noted above her recent bronchoscopic exam and bronchial biopsy are positive small cell carcinoma. Status: Acute Assessment and plan: 1. 63 year old lady with recent diagnosis of Small cell Lung Cancer, involving right hilum in August 2023. CT chest with contrast revealed a right suprahilar mass measuring 5.8 x 4.1 cm encasing and occluding right upper lobe bronchus with complete collapse of right upper lobe. This is a small stable left upper lobe 1 cm pulmonary nodule, enlarged mediastinal lymph nodes with 1.4 x 2.7 x 2.4 cm pretracheal lymph node. No pleural effusion or axillary adenopathy. Adrenals normal, no evidence of osseous metastatic disease. She had a CT head without contrast which was negative for metastasis. Clinical stage T3 N2, Stage IIIB LDH mildly elevated at 274, CEA 12.1 NG/ mL. She had presented with severe hyponatremia with sodium of 116 millimole per L secondary to SIADH/lung cancer. PET scan performed at [facility] on 09/11/2023 showed FDG avid right hilar/suprahilar mass with SUV 12.6, FDG avid mediastinal and right hilar lymphadenopathy. Left supraclavicular lymph node SUV max 4.2, right supraclavicular lymph node SUV max 2, right paratracheal SUV max 9.4, anterior mediastinal SUV max 4.8. Nonspecific focal activity in anal canal SUV 15.3. Patient reports that she has had surgery for rectal prolapse and continues to have intermittent rectal bleeding which could account for the uptake in the anal canal. Brain MRI performed 09/10/2023 showed no evidence of intracranial metastatic disease. MediPort was placed for administration of chemotherapy on 09/17. She was started on chemotherapy on 09/22. 2. Hyponatremia secondary to SIADH. She is on sodium bicarbonate tablets. She was unable to tolerate a urea. She is now on fluid restriction as well. 3. Pancytopenia secondary to recent chemotherapy. She received 1 dose Granix on 10/01/2023. 4. Klebsiella UTI, she is on ceftriaxone. Agree with current management. Thank you. - Time Spent With Patient Time Spent with Patient (in minutes): 15 Comment: She is approaching a cell bharathi and may need neutropenic precautions and granix.
[2023-10-03] MEDS: Nicotine 14 MG PATCH.TD24 TRANSDERMA (14:43)
[2023-10-03] MEDS: hydrOXYzine HCL 50 MG TABLET PO (20:27)
[2023-10-03] MEDS: Mirtazapine 30 MG TABLET PO (20:28)
[2023-10-04] VITALS (10 sets, daily range): BP systolic 108–182; BP diastolic 52–88; PULSE 73–106; RESP 14–20; TEMP 36.1–37.4; O2SAT 93–98
[2023-10-04] MEDS: Omeprazole 20 MG CAPSULE.DR PO (06:13)
[2023-10-04 06:51] LABS: Anion Gap 12 (12-20); Blood Urea Nitrogen 17 mg/dL (9-16); Calcium 8.5 mg/dL (8.4-10.2); Carbon Dioxide 25 mmol/L (22-29); Chloride 105 mmol/L (96-108); Creatinine Clr Calc Pharmacy 57.5; Estimated Glomerular Filt Rate > 60; Glucose Random 119 mg/dL (60-115); Potassium 3.5 mmol/L (3.3-5.1); Sodium 138 mmol/L (135-145)
[2023-10-04 07:07] LABS: Hematocrit 21.2 % (37.0-47.0); Hemoglobin 7.1 g/dl (12.0-16.0); Mean Corpuscular HGB Conc 33.5 g/dl (31.0-35.0); Mean Corpuscular Hemoglobin 27.5 pg (27.0-33.0); Mean Corpuscular Volume 82.2 fL (80.0-98.0); Mean Platelet Volume 10.8 fL (9.4-12.3); Red Blood Count 2.58 X10*6/uL (4.20-5.50); Red Cell Distribution Width 14.3 % (11.0-16.0)
[2023-10-04 07:08] LABS: Platelet Count 31 X10*3/uL (160-400); White Blood Count 1.1 X10*3/uL (4.8-10.8)
--- NOTE | 2023-10-04 07:58 | ECG_ITS ---
Test Reason : chest pain Blood Pressure : / mmHG Vent. Rate : 072 BPM Atrial Rate : 072 BPM P-R Int : 190 ms QRS Dur : 096 ms QT Int : 418 ms P-R-T Axes : 075 -29 047 degrees QTc Int : 457 ms Normal sinus rhythm Low voltage QRS Borderline ECG When compared with ECG of 28-SEP-2023 09:35, No significant change was found Referred By: Jovanni Bergman Electronically Signed By:PARMJIT HARTLEY MD
[2023-10-04] MEDS: Morphine Sulfate 2 MG/ML CARTRIDGE IVPUSH ×3 (08:01→17:25)
[2023-10-04] MEDS: Budesonide 180 MCG AER.POW.BA 2 PUFF INHALE (08:14)
[2023-10-04] MEDS: Tiotropium Bromide 2.5 mcg 1 PUFF/2.5 MCG MIST.INHAL 2 PUFF INHALE (08:14)
[2023-10-04 08:42] LABS: Troponin-I High Sensitivity 3.5 ng/L (<3.5-17.0)
[2023-10-04] MEDS: Tolterodine Tartrate LA 4 MG CAP.ER.24H PO (09:10)
[2023-10-04] MEDS: clonazePAM 0.5 MG TABLET PO ×2 (09:11→21:21)
[2023-10-04] MEDS: Metoprolol Succinate ER 50 MG TAB.ER.24H PO (09:11)
[2023-10-04] MEDS: Cholecalciferol (Vitamin D3) 25 MCG TABLET 50 MCG PO (09:11)
[2023-10-04] MEDS: Sodium Chloride Tab 1 GM TABLET 2 GM PO (09:11)
[2023-10-04] MEDS: Metoclopramide HCl 5 MG TABLET PO ×3 (09:11→21:21)
[2023-10-04] MEDS: 0.9 % Sodium Chloride Flush 3 ML SYRINGE IVFLUSH ×3 (09:12→21:24)
--- NOTE | 2023-10-04 09:39 | PC.NURSE ---
MD Bergman made aware pt endorsing severe chest pain at 07:56. Pt VS 182/88, HR 74, o2 95% on room air. EKG and labs ordered per . PRN morphine given with good effect, pt currently resting in bed, rise and fall of chest noted, pt states pain has subsided.
[2023-10-04] MEDS: oxyCODONE HCl Immed Release 5 MG TABLET PO (11:55)
[2023-10-04] MEDS: Sucralfate 1 GM TABLET 4 GM PO (11:55)
--- NOTE | 2023-10-04 12:56 | P.PNIM_ITS ---
Subjective Subjective Date of Service: 10/04/23 Interval History: Seen and evaluated this morning Pancytopenia worse of 1.1 with low PLT 31, Hb 7.1 Feels weak and has no energy Na normal this morning no other overnight events Review of Systems Review of Systems: Yes all other systems are reviewed and are negative Physical Exam 2 Vital Signs: Vital Signs: Last Vital Signs Temp 97.0 F 10/04/23 07:51 Pulse 80 10/04/23 09:11 Resp 20 10/04/23 08:18 BP 117/67 10/04/23 09:11 Pulse Ox 95 10/04/23 07:58 O2 Del Method Room Air 10/04/23 07:58 BMI result Body Mass Index 24.0 Const: Other: Constitutional : Awake, interactive, less anxious Neck : Normal inspection, Supple Cardiovascular : RRR, no JVP, no lower extremity edema Respiratory : good bilateral air entry, no crackles, wheezes or rhonchi Gastrointestinal: soft, lax, Normal bowel sounds, Non tender Skin : Warm, Dry Neurological : Alert & oriented x3, No focal deficit Objective Data Active Medications Acetaminophen (Acetaminophen 325 Mg Tablet) 650 mg PO Q6H PRN PRN Reason: Pain, Mild (Pain Scale 1-3), fever or headache Last Admin: 10/01/23 20:30 Dose: 650 mg Documented By: RAQUEL Albuterol Sulfate (Albuterol Sulfate 90 Mcg 8 Gm Inhaler) 1 puff INHALE Q6H PRN PRN Reason: shortness of breath or wheezing Budesonide (Budesonide 180 Mcg Aer.Pow.Ba) 2 puff INHALE RBID [facility] Last Admin: 10/04/23 08:14 Dose: 2 puff Documented By: JEN Calcium Carbonate (Calcium Carbonate 750 Mg Tab.Chew) 750 mg PO Q4H PRN PRN Reason: Heartburn Last Admin: 09/29/23 18:08 Dose: 750 mg Documented By: JOSE Clonazepam (Clonazepam 0.5 Mg Tablet) 0.5 mg PO BID [facility] Last Admin: 10/04/23 09:11 Dose: 0.5 mg Documented By: KARTHIK Escitalopram Oxalate (Escitalopram Oxalate 20 Mg Tablet) 20 mg PO DAILY [facility] Last Admin: 09/29/23 08:13 Dose: 20 mg Documented By: JOSE Fluticasone Propionate (Fluticasone Propionate Nasal 16 Gm [place]) 1 spray NOSTRIL-B DAILY [facility] Last Admin: 10/04/23 09:18 Dose: Not Given Documented By: KARTHIK Non-Admin Reason: Patient Refused Guaifenesin/Dextromethorphan (Guaifenesin Dm 100/10/5 Ml 5 Ml Syrup) 10 ml PO TID PRN PRN Reason: cough Heparin Sodium (Porcine) (Heparin Sodium,Porcine 5,000 Unit/Ml Vial) 5,000 unit SUBCUT Q12H [facility] Last Admin: 10/03/23 07:41 Dose: 5,000 unit Documented By: DELMIS Hydroxyzine HCl (Hydroxyzine Hcl 50 Mg Tablet) 50 mg PO BEDTIME [facility] Last Admin: 10/03/23 20:27 Dose: 50 mg Documented By: LAINA Ceftriaxone Sodium 1 gm/ (Sodium Chloride) 50 mls @ 100 mls/hr IV Q24H [facility] Last Infusion: 10/03/23 12:42 Dose: Infused Documented By: ARNALDO Losartan Potassium (Losartan Potassium 25 Mg Tablet) 25 mg PO DAILY@0900 [facility]; Protocol Last Admin: 09/29/23 08:12 Dose: 25 mg Documented By: JOSE Magnesium Hydroxide (Milk Of Magnesia 30 Ml Oral.Susp) 30 ml PO DAILY PRN PRN Reason: Constipation Melatonin (Melatonin 3 Mg Tablet) 6 mg PO BEDTIME PRN PRN Reason: Insomnia Last Admin: 09/30/23 19:58 Dose: 6 mg Documented By: GLENIS Metoclopramide HCl (Metoclopramide Hcl 5 Mg Tablet) 5 mg PO TID [facility] Last Admin: 10/04/23 09:11 Dose: 5 mg Documented By: KARTHIK Metoprolol Succinate (Metoprolol Succinate Er 50 Mg Tab.Er.24h) 50 mg PO DAILY [facility]; Protocol Last Admin: 10/04/23 09:11 Dose: 50 mg Documented By: KARTHIK Mirtazapine (Mirtazapine 30 Mg Tablet) 30 mg PO BEDTIME [facility] Last Admin: 10/03/23 20:28 Dose: 30 mg Documented By: LAINA Morphine Sulfate (Morphine Sulfate 2 Mg/Ml Cartridge) 2 mg IVPUSH Q4H PRN; Protocol PRN Reason: Pain, Severe (Pain Scale 7-10) Last Admin: 10/04/23 08:01 Dose: 2 mg Documented By: KARTHIK Nicotine (Nicotine 14 Mg Patch.Td24) 14 mg TRANSDERMA Q24H [facility] Last Admin: 10/03/23 14:43 Dose: 14 mg Documented By: COTEMA Non-Formulary Medication (Alosetron) 1 mg PO DAILY@0900 [facility] Omeprazole (Omeprazole 20 Mg Capsule.Dr) 20 mg PO DAILY@0630 [facility] Last Admin: 10/04/23 06:13 Dose: 20 mg Documented By: LAINA Ondansetron HCl (Ondansetron Hcl 4 Mg/2 Ml Vial) 4 mg IVPUSH Q8H PRN PRN Reason: Nausea and Vomiting Last Admin: 10/01/23 21:44 Dose: 4 mg Documented By: RAQUEL Oxycodone HCl (Oxycodone Hcl Immed Release 5 Mg Tablet) 5 mg PO Q4H PRN PRN Reason: Pain, Moderate(Pain Scale 4-6) Last Admin: 10/04/23 11:55 Dose: 5 mg Documented By: KARTHIK Prochlorperazine Edisylate (Prochlorperazine Edisylate 10 Mg/2 Ml Vial) 5 mg IVPUSH ONCE PRN PRN Reason: Nausea Sodium Chloride (0.9 % Sodium Chloride Flush 3 Ml Syringe) 3 ml IVFLUSH QSHIFT [facility] Last Admin: 10/04/23 09:12 Dose: 3 ml Documented By: KARTHIK Sodium Chloride (Sodium Chloride Tab 1 Gm Tablet) 2 gm PO TID [facility] Last Admin: 10/04/23 09:11 Dose: 2 gm Documented By: KARTHIK Sucralfate (Sucralfate 1 Gm Tablet) 4 gm PO DAILY@1200 [facility] Last Admin: 10/04/23 11:55 Dose: 4 gm Documented By: KARTHIK Tiotropium [place] (Tiotropium [place] 2.5 Mcg 1 Puff/2.5 Mcg Mist.Inhal) 2 puff INHALE RDAILY [facility] Last Admin: 10/04/23 08:14 Dose: 2 puff Documented By: JEN Tolterodine Tartrate (Tolterodine Tartrate [place] 4 Mg Cap.Er.24h) 4 mg PO DAILY@0900 [facility] Last Admin: 10/04/23 09:10 Dose: 4 mg Documented By: KARTHIK Vitamin D (Cholecalciferol (Vitamin D3) 25 Mcg Tablet) 50 mcg PO DAILY@899 [facility] Last Admin: 10/04/23 09:11 Dose: 50 mcg Documented By: KARTHIK Labs 10/04/23 05:34 10/04/23 05:34 Labs: Laboratory Results - last 24 hr 10/04/23 10/04/23 05:34 08:12 MCV 82.2 MCH 27.5 MCHC 33.5 RDW 14.3 Plt Count 31 L MPV 10.8 Absolute Nucleated RBC 0.000 Nucleated RBC % (auto) 0.0 Anion Gap 12 Estim Creat Clear Calc 57.5 Estimated GFR > 60 Random Glucose 119 H Calcium 8.5 Troponin I High Sens 3.5 D Microbiology Microbiology Results: Microbiology 09/28/23 10:58 Blood Culture - Final Blood - Venous No growth after 5 days. 09/28/23 10:44 Blood Culture - Final Blood - Venous No growth after 5 days. Assessment and Plan (1) Pancytopenia: Status: Acute (2) Adjustment disorder with mixed anxiety and depressed mood: Status: Acute (3) Acute UTI: Status: Acute Plan 62F PMH COPD, IVDA, hepatitis-C, hypertension, hyperlipidemia, anemia, GERD, IBS, gastroparesis, mood disorder, 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 presented with nausea and vomiting Acute Pancytopenia WBCs of 1.1, PLT 31, with Hb of 7.1 no fever or bleeding secondary to recent chemotherapy monitor CBC Consider PRBCs if drops below 7 Oncology following received Filgrastim ,to give daily until her numbers recover neutropenic precautions Acute on chronic hyponatremia Due to 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 Sodium improved to normal Continue fluid restriction, Continue sodium tablets Monitor sodium levels Nausea vomiting due to chemotherapy Improved , Reglan atc PRN Zofran advanced diet Acute hypokalemia resolved Anxiety, depression Psychiatry input appreciated Acute hypomagnesemia Give IV Replacement Acute UTI Klebsiella in urine Ceftriaxone IV and change to Ceftin PO upon discharge to finish total of 10 days of Abx (started 09/28) Small-cell lung cancer Follow up Oncology COPD Continue inhalers Hypertension Losartan, metoprolol GERD PPI DVT prophylaxis Hold heparin subQ for low PLT Full code reason for continued hospitalization: leukocytopenia with weakness and risk of fall, to monitor blood values and physical strength Quality Stroke Does the patient have a stroke diagnosis?: No VTE Prior VTE?: No VTE Risk Level:: Medical - moderate - high VTE Device Contraindication: Treatment Not Indicated VTE Drug Contraindication: N/A - Med Ordered
[2023-10-04] MEDS: cefTRIAXone sodium 1 GM in 0.9 % Sodium Chloride 50 ML IV (13:20)
[2023-10-04] MEDS: Nicotine 14 MG PATCH.TD24 TRANSDERMA (14:51)
[2023-10-04] MEDS: Acetaminophen 325 MG TABLET 650 MG PO (14:57)
--- NOTE | 2023-10-04 15:51 | PC.NURSE ---
Addendum entered by Cydney Valerio RN 10/04/23 17:21: 1L bolus order infusing per orders. Original Note: MD Bergman made aware pt experiencing rigors with an oral temp of 99.4, PRN Tylenol given temp recheck 97.5. New orders placed per MD and carried out, viral swab sent, CXR completed, labs drawn. Urine cup with wipes set up in pt room, education provided on how to clean with wipes to obtain spec, pt states she verbalizes understanding. [place] ordered, IV abx infusing per MAR.
[2023-10-04] MEDS: vancomycin HCL 1,500 MG in 0.9 % Sodium Chloride 500 ML 333.33 MG IV (15:59)
[2023-10-04 16:31] LABS: Lactic Acid 2.6 mmol/L (0.5-2.0)
[2023-10-04] MEDS: ondansetron HCL 4 MG/2 ML VIAL IVPUSH (16:35)
[2023-10-04] MEDS: 0.9 % Sodium Chloride 1,000 ML 999 ML IV (17:03)
[2023-10-04] MEDS: Piperacillin Sodium/Tazobactam 3.375 GM in 0.9 % Sodium Chloride 50 ML IV (17:48)
[2023-10-04 17:51] LABS: Reflex Lactate? Lactic Acid Added
[2023-10-04 18:34] LABS: ~Lactic Acid-LAB USE ONLY 1.9 mmol/L (0.5-2.0)
[2023-10-04] MEDS: hydrOXYzine HCL 50 MG TABLET PO (21:21)
[2023-10-04] MEDS: Mirtazapine 30 MG TABLET PO (21:22)
[2023-10-04 22:50] LABS: Appearance Urine Clear; Color Urine Yellow; Glucose Urine UA Negative (Negative); Leukocyte Esterase Urine Trace (Negative); Nitrite Urine Negative (Negative); PH 5.5 (5.0-9.0); UMIC TRIGGER UACC YES; Urine Blood Negative (Negative); Urine Ketones Negative (Negative); Urine Protein Negative (Neg-Trace)
[2023-10-04 23:00] LABS: Bacteria Urine None Seen (None Seen); Hyaline Casts Urine 0-2 /LPF (0-2); RBC Urine 0-2 /HPF (0-2); Squamous Epithelial Cell Urine 0-2 /HPF (0-2); WBC Urine 0-5 /HPF (0-5)
[2023-10-05] VITALS (12 sets, daily range): BP systolic 102–157; BP diastolic 57–81; PULSE 77–100; RESP 14–20; TEMP 36.1–36.8; O2SAT 90–95
[2023-10-05] MEDS: Piperacillin Sodium/Tazobactam 3.375 GM in 0.9 % Sodium Chloride 50 ML IV ×5 (00:51→23:20)
[2023-10-05] MEDS: Morphine Sulfate 2 MG/ML CARTRIDGE IVPUSH ×6 (03:17→23:26)
[2023-10-05] MEDS: vancomycin HCL 750 MG in 0.9 % Sodium Chloride 250 ML 265 MG IV ×2 (03:26→15:30)
[2023-10-05] MEDS: Omeprazole 20 MG CAPSULE.DR PO (05:08)
[2023-10-05] MEDS: oxyCODONE HCl Immed Release 5 MG TABLET PO ×2 (05:21→13:07)
[2023-10-05 06:28] LABS: Anion Gap 12 (12-20); Blood Urea Nitrogen 18 mg/dL (9-16); Calcium 8.1 mg/dL (8.4-10.2); Carbon Dioxide 22 mmol/L (22-29); Chloride 109 mmol/L (96-108); Creatinine Clr Calc Pharmacy 53.5; Estimated Glomerular Filt Rate > 60; Glucose Random 97 mg/dL (60-115); Potassium 3.4 mmol/L (3.3-5.1); Sodium 140 mmol/L (135-145)
[2023-10-05 06:50] LABS: Basophils Percent Auto 0.8 % (0-2); Eosinophils Absolute Auto 0.1 X10*3/uL (0.0-0.4); Imm Gran Abs Auto 0.04 X10*3/uL (0.00-0.03); Imm Gran Pct Auto 3.3 % (0.0-0.4); Lymphocytes Absolute Auto 0.9 X10*3/uL (1.2-4.9); Lymphocytes Percent Auto 70.2 % (20-40); MANUAL DIFF FLAG SCAN; Mean Corpuscular HGB Conc 33.1 g/dl (31.0-35.0); Mean Corpuscular Hemoglobin 27.8 pg (27.0-33.0); Mean Corpuscular Volume 83.9 fL (80.0-98.0); Mean Platelet Volume 10.1 fL (9.4-12.3); Monocytes Absolute Auto 0.2 X10*3/uL (0.1-1.2); Monocytes Percent Auto 18.2 % (2-11); Neutrophils Percent Auto 2.5 % (45-73); Red Blood Count 2.05 X10*6/uL (4.20-5.50); Red Cell Distribution Width 14.6 % (11.0-16.0); SCAN SMEAR FLAG 1
[2023-10-05 06:55] LABS: White Blood Count 1.2 X10*3/uL (4.8-10.8)
[2023-10-05 06:56] LABS: Hematocrit 17.2 % (37.0-47.0); Hemoglobin 5.7 g/dl (12.0-16.0); NRBC Pct Auto 2.5 /100WBC (0.0-0.2); Platelet Count 22 X10*3/uL (160-400)
[2023-10-05 07:14] LABS: SLIDE REVIEW VERIFIED
[2023-10-05] MEDS: Cholecalciferol (Vitamin D3) 25 MCG TABLET 50 MCG PO (07:42)
[2023-10-05] MEDS: Metoclopramide HCl 5 MG TABLET PO ×3 (07:42→19:22)
[2023-10-05] MEDS: Tolterodine Tartrate LA 4 MG CAP.ER.24H PO (07:42)
[2023-10-05] MEDS: clonazePAM 0.5 MG TABLET PO ×2 (07:42→19:22)
[2023-10-05] MEDS: Metoprolol Succinate ER 50 MG TAB.ER.24H PO (07:42)
[2023-10-05] MEDS: Tiotropium Bromide 2.5 mcg 1 PUFF/2.5 MCG MIST.INHAL 2 PUFF INHALE (08:04)
[2023-10-05] MEDS: Budesonide 180 MCG AER.POW.BA 2 PUFF INHALE ×2 (08:05→20:22)
[2023-10-05 10:25] LABS: Adenovirus PCR Not Detected (Not Detect.); Bordetella parapertussis PCR Not Detected (Not Detect.); Bordetella pertussis PCR Not Detected (Not Detect.); Chlamydia pneumoniae PCR Not Detected (Not Detect.); Coronavirus 229E PCR Not Detected (Not Detect.); Coronavirus HKU1 PCR Not Detected (Not Detect.); Coronavirus NL63 PCR Not Detected (Not Detect.); Coronavirus OC43 PCR Not Detected (Not Detect.); Human metapneumovirus PCR Not Detected (Not Detect.); Influenza A PCR Not Detected (Not Detect.); Influenza B PCR Not Detected (Not Detect.); Mycoplasma pneumoniae PCR Not Detected (Not Detect.); Parainfluenza 1 PCR Not Detected (Not Detect.); Parainfluenza 2 PCR Not Detected (Not Detect.); Parainfluenza 3 PCR Not Detected (Not Detect.); Parainfluenza 4 PCR Not Detected (Not Detect.); RSV PCR Not Detected (Not Detect.); Rhino/Enterovirus PCR Not Detected (Not Detect.)
--- NOTE | 2023-10-05 11:07 | P.PNIM_ITS ---
Subjective Subjective Date of Service: 10/05/23 Interval History: Seen and evaluated this morning Pancytopenia worse of 1.1 with low PLT 21, Hb 5.7 Feels weak and has no energy had chills and fever yesterday no other overnight events Physical Exam 2 Vital Signs: Vital Signs: Last Vital Signs Temp 97.2 F 10/05/23 10:15 Pulse 80 10/05/23 10:15 Resp 18 10/05/23 10:15 BP 102/57 L 10/05/23 10:15 Pulse Ox 94 10/05/23 07:34 O2 Del Method Room Air 10/05/23 07:34 BMI result Body Mass Index 24.0 Const: Other: Constitutional : Awake, interactive, less anxious Neck : Normal inspection, Supple Cardiovascular : RRR, no JVP, no lower extremity edema Respiratory : good bilateral air entry, LLL fine crackles, wheezes or rhonchi Gastrointestinal: soft, lax, Normal bowel sounds, Non tender Skin : Warm, Dry Neurological : Alert & oriented x3, No focal deficit Objective Data Active Medications Acetaminophen (Acetaminophen 325 Mg Tablet) 650 mg PO Q6H PRN PRN Reason: Pain, Mild (Pain Scale 1-3), fever or headache Last Admin: 10/04/23 14:57 Dose: 650 mg Documented By: KARTHIK Albuterol Sulfate (Albuterol Sulfate 90 Mcg 8 Gm Inhaler) 1 puff INHALE Q6H PRN PRN Reason: shortness of breath or wheezing Budesonide (Budesonide 180 Mcg Aer.Pow.Ba) 2 puff INHALE RBID [facility] Last Admin: 10/05/23 08:05 Dose: 2 puff Documented By: CECILIA Calcium Carbonate (Calcium Carbonate 750 Mg Tab.Chew) 750 mg PO Q4H PRN PRN Reason: Heartburn Last Admin: 09/29/23 18:08 Dose: 750 mg Documented By: JOSE Clonazepam (Clonazepam 0.5 Mg Tablet) 0.5 mg PO BID [facility] Last Admin: 10/05/23 07:42 Dose: 0.5 mg Documented By: MUKUND Escitalopram Oxalate (Escitalopram Oxalate 20 Mg Tablet) 20 mg PO DAILY [facility] Last Admin: 09/29/23 08:13 Dose: 20 mg Documented By: JOSE Fluticasone Propionate (Fluticasone Propionate Nasal 16 Gm [place]) 1 spray NOSTRIL-B DAILY [facility] Last Admin: 10/05/23 10:25 Dose: Not Given Documented By: MUKUND Non-Admin Reason: Patient Refused Guaifenesin/Dextromethorphan (Guaifenesin Dm 100/10/5 Ml 5 Ml Syrup) 10 ml PO TID PRN PRN Reason: cough Heparin Sodium (Porcine) (Heparin Sodium,Porcine 5,000 Unit/Ml Vial) 5,000 unit SUBCUT Q12H [facility] Last Admin: 10/03/23 07:41 Dose: 5,000 unit Documented By: DELMIS Hydroxyzine HCl (Hydroxyzine Hcl 50 Mg Tablet) 50 mg PO BEDTIME [facility] Last Admin: 10/04/23 21:21 Dose: 50 mg Documented By: ZACHARY Vancomycin HCl 750 mg/ Sodium (Chloride) 265 mls @ 265 mls/hr IV Q12H [facility] Last Infusion: 10/05/23 05:09 Dose: Infused Documented By: ZACHARY Piperacillin Sod/Tazobactam (Sod 3.375 gm/ Sodium Chloride) 50 mls @ 100 mls/hr IV Q6H [facility] Last Infusion: 10/05/23 06:00 Dose: Infused Documented By: ZACHARY Losartan Potassium (Losartan Potassium 25 Mg Tablet) 25 mg PO DAILY@0900 [facility]; Protocol Last Admin: 09/29/23 08:12 Dose: 25 mg Documented By: JOSE Magnesium Hydroxide (Milk Of Magnesia 30 Ml Oral.Susp) 30 ml PO DAILY PRN PRN Reason: Constipation Melatonin (Melatonin 3 Mg Tablet) 6 mg PO BEDTIME PRN PRN Reason: Insomnia Last Admin: 09/30/23 19:58 Dose: 6 mg Documented By: GLENIS Metoclopramide HCl (Metoclopramide Hcl 5 Mg Tablet) 5 mg PO TID [facility] Last Admin: 10/05/23 07:42 Dose: 5 mg Documented By: MUKUND Metoprolol Succinate (Metoprolol Succinate Er 50 Mg Tab.Er.24h) 50 mg PO DAILY [facility]; Protocol Last Admin: 10/05/23 07:42 Dose: 50 mg Documented By: MUKUND Mirtazapine (Mirtazapine 30 Mg Tablet) 30 mg PO BEDTIME [facility] Last Admin: 10/04/23 21:22 Dose: 30 mg Documented By: ZACHARY Morphine Sulfate (Morphine Sulfate 2 Mg/Ml Cartridge) 2 mg IVPUSH Q4H PRN; Protocol PRN Reason: Pain, Severe (Pain Scale 7-10) Last Admin: 10/05/23 07:43 Dose: 2 mg Documented By: MUKUND Nicotine (Nicotine 14 Mg Patch.Td24) 14 mg TRANSDERMA Q24H [facility] Last Admin: 10/04/23 14:51 Dose: 14 mg Documented By: KARTHIK Non-Formulary Medication (Alosetron) 1 mg PO DAILY@0900 [facility] Omeprazole (Omeprazole 20 Mg Capsule.Dr) 20 mg PO DAILY@0630 [facility] Last Admin: 10/05/23 05:08 Dose: 20 mg Documented By: ZACHARY Ondansetron HCl (Ondansetron Hcl 4 Mg/2 Ml Vial) 4 mg IVPUSH Q8H PRN PRN Reason: Nausea and Vomiting Last Admin: 10/04/23 16:35 Dose: 4 mg Documented By: KARTHIK Oxycodone HCl (Oxycodone Hcl Immed Release 5 Mg Tablet) 5 mg PO Q4H PRN PRN Reason: Pain, Moderate(Pain Scale 4-6) Last Admin: 10/05/23 05:21 Dose: 5 mg Documented By: ZACHARY Pharmacy Consult (Consult Rx Vancomycin Dosing) 1 each MISCELLANE DAILY PRN PRN Reason: Consult order Prochlorperazine Edisylate (Prochlorperazine Edisylate 10 Mg/2 Ml Vial) 5 mg IVPUSH ONCE PRN PRN Reason: Nausea Sodium Chloride (0.9 % Sodium Chloride Flush 3 Ml Syringe) 3 ml IVFLUSH QSHIFT [facility] Last Admin: 10/05/23 10:20 Dose: Not Given Documented By: MUKUND Non-Admin Reason: Previously Administered Sodium Chloride (Sodium Chloride Tab 1 Gm Tablet) 2 gm PO TID [facility] Last Admin: 10/05/23 07:45 Dose: Not Given Documented By: MUKUND Non-Admin Reason: Patient Refused Sucralfate (Sucralfate 1 Gm Tablet) 4 gm PO DAILY@1200 [facility] Last Admin: 10/04/23 11:55 Dose: 4 gm Documented By: KARTHIK Tiotropium [place] (Tiotropium [place] 2.5 Mcg 1 Puff/2.5 Mcg Mist.Inhal) 2 puff INHALE RDAILY [facility] Last Admin: 10/05/23 08:04 Dose: 2 puff Documented By: CECILIA Tolterodine Tartrate (Tolterodine Tartrate [place] 4 Mg Cap.Er.24h) 4 mg PO DAILY@0900 [facility] Last Admin: 10/05/23 07:42 Dose: 4 mg Documented By: MUKUND Vitamin D (Cholecalciferol (Vitamin D3) 25 Mcg Tablet) 50 mcg PO DAILY@0900 [facility] Last Admin: 10/05/23 07:42 Dose: 50 mcg Documented By: MUKUND Labs 10/05/23 05:53 10/05/23 05:53 Labs: Laboratory Results - last 24 hr 10/04/23 10/04/23 10/04/23 15:42 18:04 22:06 MCV MCH MCHC RDW Plt Count MPV Immature Gran % (Auto) Neut % (Auto) Lymph % (Auto) [place] % (Auto) Eos % (Auto) Baso % (Auto) Lymph # (Auto) [place] # (Auto) Eos # (Auto) Baso # (Auto) Abs Immat Gran (auto) Absolute Neuts (auto) Absolute Nucleated RBC Nucleated RBC % (auto) Smear Tech's Comments Anion Gap Estim Creat Clear Calc Estimated GFR Random Glucose Lactic Acid 2.6 H* Lactic Acid F/U @ 2Hr 1.9 Calcium Urine Color Yellow Urine Appearance Clear Urine pH 5.5 Ur Specific [place] 1.020 Urine Protein Negative Urine Glucose (UA) Negative Urine Ketones Negative Urine Blood Negative Urine Nitrite Negative Ur Leukocyte Esterase Trace H Urine RBC 0-2 Urine WBC 0-5 Ur Squamous Epith Cells 0-2 Urine Bacteria None Seen Hyaline Casts 0-2 Blood Type Antibody Screen Crossmatch (AHG) 10/05/23 10/05/23 05:53 07:22 MCV 83.9 MCH 27.8 MCHC 33.1 RDW 14.6 Plt Count 22 L D MPV 10.1 Immature Gran % (Auto) 3.3 H Neut % (Auto) 2.5 L Lymph % (Auto) 70.2 H [place] % (Auto) 18.2 H Eos % (Auto) 5.0 H Baso % (Auto) 0.8 Lymph # (Auto) 0.9 L [place] # (Auto) 0.2 Eos # (Auto) 0.1 Baso # (Auto) 0.0 Abs Immat Gran (auto) 0.04 H Absolute Neuts (auto) 0.0 L Absolute Nucleated RBC 0.030 H Nucleated RBC % (auto) 2.5 H Smear Tech's Comments VERIFIED Anion Gap 12 Estim Creat Clear Calc 53.5 Estimated GFR > 60 Random Glucose 97 Lactic Acid Lactic Acid F/U @ 2Hr Calcium 8.1 L Urine Color Urine Appearance Urine pH Ur Specific [place] Urine Protein Urine Glucose (UA) Urine Ketones Urine Blood Urine Nitrite Ur Leukocyte Esterase Urine RBC Urine WBC Ur Squamous Epith Cells Urine Bacteria Hyaline Casts Blood Type B Positive Antibody Screen NEGATIVE Crossmatch (AHG) See Detail Assessment and Plan (1) Pancytopenia: Status: Acute (2) Adjustment disorder with mixed anxiety and depressed mood: Status: Acute (3) Acute UTI: Status: Acute (4) Nausea & vomiting: Status: Acute (5) Neutropenic fever: Status: Acute Plan 62F PMH COPD, IVDA, hepatitis-C, hypertension, hyperlipidemia, anemia, GERD, IBS, gastroparesis, mood disorder, 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 presented with nausea and vomiting Acute Pancytopenia with symptomatic anemia WBCs of 1.1, PLT 21, with Hb of 5.7 secondary to recent chemotherapy transfuse 2 units PRBCs Oncology following received Filgrastim ,to give daily until her numbers recover neutropenic precautions Neutropenic fever pending cultures CXR suggesting possible pneumonia IV Abx of Vancomycin and Zosyn ID consult follow vanco trough Acute on chronic hyponatremia Due to 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 improved to normal Continue fluid restriction, Continue sodium tablets Monitor sodium levels Nausea vomiting due to chemotherapy Improved , Reglan atc PRN Zofran advanced diet Acute hypokalemia resolved Anxiety, depression Psychiatry input appreciated Acute hypomagnesemia Give IV Replacement Acute UTI Klebsiella in urine on Abx since (09/28) Small-cell lung cancer Follow up Oncology COPD Continue inhalers Hypertension Losartan, metoprolol GERD PPI DVT prophylaxis Hold heparin subQ for low PLT Full code reason for continued hospitalization: NEutropenic fever on IV antibiotics Quality Stroke Does the patient have a stroke diagnosis?: No VTE Prior VTE?: No VTE Risk Level:: Medical - moderate - high VTE Device Contraindication: Treatment Not Indicated VTE Drug Contraindication: N/A - Med Ordered
[2023-10-05] MEDS: Sucralfate 1 GM TABLET 4 GM PO (11:11)
[2023-10-05 11:17] LABS: SARS-CoV-2 PCR Not Detected (Not Detect.)
--- NOTE | 2023-10-05 12:01 | MHC.CM.PN ---
Per MD rounds patient not medically cleared for dc at this time. Initially patient was declining home services, as recommended by PT. CM discussed with patient, who is now agreeable, preference for [facility]. Referral sent via [facility]. CM will continue to follow.
--- NOTE | 2023-10-05 12:24 | PM.HEMONCPN ---
Medical Summary - Medical Summary Date of Service: 10/05/23 Chief complaint: Feels tired Primary Care Provider: Sarthak Person MD Medical Summary: She was admitted for weakness and FTT.She says she is feeling better. Interval History Interval history: Sarah Medina is a 63 year old lady, with history of IVDA, history of hepatitis-C, recent admission to [facility] from 08/23-09/04 where she was diagnosed with small cell lung cancer with post obstructive pneumonia and SIADH. She had PET scan showing L and R supraclavicular node, paratracheal /mediastinal. negative brain MRI. She presented to the ED yesterday, for evaluation of retrostrernal non radiating chest pain and nausea/vomiting diarrhea that started 2 days ago, started chemo on friday 09/22. She also had productive cough and shortness of breath. No weight gain or orthopnea. Denies anorexia, has been eating and drinking without difficult. Endorses significant anxiety. She was feeling cold, developed fever yesterday. She is now on antibiotics. She feels discouraged and quite tired. No cough or shortness of breath. No pleuritic chest pain, diarrhea or dysuria. Review of Systems - Constitutional Reports as per HPI, Denies lack of energy, Denies malaise, Denies night sweats - Cardiovascular Reports no additional cardiovascular complaints - Respiratory Reports no additional respiratory complaints - Gastrointestinal Reports no additional gastrointestinal complaints - Neurologic Reports no additional neurologic complaints, Denies focal weakness, Reports numbness, Reports weakness PMFSH Medical History: Medical History (Last Reviewed 09/28/23 @ 15:06 by YEVGENIY Fernandez) Abnormal CT scan, chest Allergic rhinitis Anxiety Benign essential hypertension Bronchitis Cervical spondylosis COPD (chronic obstructive pulmonary disease) Early satiety Endocarditis of mitral valve Onset Date: ~11/2017 Facet arthritis of lumbar region GERD (gastroesophageal reflux disease) History of hepatitis C IV drug user Lung mass Mass of right lung MDD (major depressive disorder), recurrent episode, moderate Mitral regurgitation Mitral valve prolapse Nicotine dependence, cigarettes, uncomplicated Nonrheumatic mitral (valve) insufficiency Osteopenia Onset Date: ~2011 Paresthesia of left leg Pulmonary nodule Pure hypercholesterolemia Rectal prolapse Small cell lung cancer Onset Date: ~08/2023 Vitamin D deficiency Functional capacity: wheelchair bound Family History: Family History (Last Reviewed 09/28/23 @ 15:06 by YEVGENIY Fernandez) Father Internal bleeding Mother Medical history unknown Surgical History: Surgical History (Last Reviewed 09/28/23 @ 15:06 by YEVGENIY Fernandez) History of bronchoscopy Onset Date: ~2023 History of colonoscopy Onset Date: ~2017 History of hysteroscopy Onset Date: ~2010 History of liver biopsy Onset Date: ~2009 History of partial colectomy Onset Date: ~2014 Social History: Social History (Last Reviewed 09/28/23 @ 15:06 by YEVGENIY Fernandez) Living Situation History: Household Members: None Housing: House Housing Other:: lives alone with her cat Malena Do you presently have visiting nurse or other home services: No Alcohol History Details: 1. How often do you have a drink containing alcohol?: a. Never AUDIT-C Alcohol total score: 0 Currently Displaying Signs/Symptoms of Alcohol Withdrawal: No Tobacco History: Patient Tobacco Use Status: Never used Tobacco Tobacco use type: Cigarette Cigarette Packs Per Day: 0.5 Years Smoked: 45 years (onset 15, 1/2-3/4ppd x 45yrs, 28pyh) Smoked in Last 30 Days: Yes e-Cigarette/Vaping Use: Never Used Patient Interested in Nicotine Replacement: Yes Patient Given Instructions on How to Stop Smoking: Yes Date Education Initiated: 09/28/23 Second Hand Smoke Exposure: Yes Substance Use History: Use of substances other than those prescribed or required for medical reasons: No Substance Use Type: Marijuana Currently Displaying Signs/Symptoms of Drug Intoxication Withdrawal: No Any prior treatment program specific to substance use: No Domestic Abuse History: Have you been hit, kicked, punched, or otherwise hurt by someone within the past year? If so, by whom?: No Do you feel safe in your current relationship?: No Is there a partner from a previous relationship who is making you feel unsafe now?: No Are you made to feel afraid or neglected: No Advance Directives: Advance Directives: Yes Advance Directives on File: Yes Advance Directives Date on File: 12/18/21 Homicidal Assessment: Do you have a plan to hurt others: No Plan Nutrition Assessment: Recently lost weight without trying: Unsure How much weight loss: Unsure Eating poorly because of decreased appetite: Yes Nutrition screen score: 5 Nutrition Risks: No Nutritional Risk Patient : No : No Poor oral hygiene: No Occupation Assessmet: service: No Current occupational status: unemployed Sex/Gender Assessment: Sexual orientation: Straight/Heterosexual Gender identity: Female Home Medications and Allergies Current Medications: Current Medications Acetaminophen (Acetaminophen 325 Mg Tablet) 650 mg PO Q6H PRN PRN Reason: Pain, Mild (Pain Scale 1-3), fever or headache Last Admin: 10/04/23 14:57 Dose: 650 mg Albuterol Sulfate (Albuterol Sulfate 90 Mcg 8 Gm Inhaler) 1 puff INHALE Q6H PRN PRN Reason: shortness of breath or wheezing Budesonide (Budesonide 180 Mcg Aer.Pow.Ba) 2 puff INHALE RBID [facility] Last Admin: 10/05/23 08:05 Dose: 2 puff Calcium Carbonate (Calcium Carbonate 750 Mg Tab.Chew) 750 mg PO Q4H PRN PRN Reason: Heartburn Last Admin: 09/29/23 18:08 Dose: 750 mg Clonazepam (Clonazepam 0.5 Mg Tablet) 0.5 mg PO BID [facility] Last Admin: 10/05/23 07:42 Dose: 0.5 mg Escitalopram Oxalate (Escitalopram Oxalate 20 Mg Tablet) 20 mg PO DAILY [facility] Last Admin: 09/29/23 08:13 Dose: 20 mg Fluticasone Propionate (Fluticasone Propionate Nasal 16 Gm Merino) 1 spray NOSTRIL-B DAILY [facility] Last Admin: 10/05/23 10:25 Dose: Not Given Guaifenesin/Dextromethorphan (Guaifenesin Dm 100/10/5 Ml 5 Ml Syrup) 10 ml PO TID PRN PRN Reason: cough Heparin Sodium (Porcine) (Heparin Sodium,Porcine 5,000 Unit/Ml Vial) 5,000 unit SUBCUT Q12H [facility] Last Admin: 10/03/23 07:41 Dose: 5,000 unit Hydroxyzine HCl (Hydroxyzine Hcl 50 Mg Tablet) 50 mg PO BEDTIME [facility] Last Admin: 10/04/23 21:21 Dose: 50 mg Vancomycin HCl 750 mg/ Sodium (Chloride) 265 mls @ 265 mls/hr IV Q12H [facility] Last Infusion: 10/05/23 05:09 Dose: Infused Piperacillin Sod/Tazobactam (Sod 3.375 gm/ Sodium Chloride) 50 mls @ 100 mls/hr IV Q6H [facility] Last Infusion: 10/05/23 11:48 Dose: Infused Losartan Potassium (Losartan Potassium 25 Mg Tablet) 25 mg PO DAILY@0900 [facility]; Protocol Last Admin: 09/29/23 08:12 Dose: 25 mg Magnesium Hydroxide (Milk Of Magnesia 30 Ml Oral.Susp) 30 ml PO DAILY PRN PRN Reason: Constipation Melatonin (Melatonin 3 Mg Tablet) 6 mg PO BEDTIME PRN PRN Reason: Insomnia Last Admin: 09/30/23 19:58 Dose: 6 mg Metoclopramide HCl (Metoclopramide Hcl 5 Mg Tablet) 5 mg PO TID [facility] Last Admin: 10/05/23 07:42 Dose: 5 mg Metoprolol Succinate (Metoprolol Succinate Er 50 Mg Tab.Er.24h) 50 mg PO DAILY [facility]; Protocol Last Admin: 10/05/23 07:42 Dose: 50 mg Mirtazapine (Mirtazapine 30 Mg Tablet) 30 mg PO BEDTIME [facility] Last Admin: 10/04/23 21:22 Dose: 30 mg Morphine Sulfate (Morphine Sulfate 2 Mg/Ml Cartridge) 2 mg IVPUSH Q4H PRN; Protocol PRN Reason: Pain, Severe (Pain Scale 7-10) Last Admin: 10/05/23 11:43 Dose: 2 mg Nicotine (Nicotine 14 Mg Patch.Td24) 14 mg TRANSDERMA Q24H [facility] Last Admin: 10/04/23 14:51 Dose: 14 mg Non-Formulary Medication (Alosetron) 1 mg PO DAILY@0900 [facility] Omeprazole (Omeprazole 20 Mg Capsule.Dr) 20 mg PO DAILY@0630 [facility] Last Admin: 10/05/23 05:08 Dose: 20 mg Ondansetron HCl (Ondansetron Hcl 4 Mg/2 Ml Vial) 4 mg IVPUSH Q8H PRN PRN Reason: Nausea and Vomiting Last Admin: 10/04/23 16:35 Dose: 4 mg Oxycodone HCl (Oxycodone Hcl Immed Release 5 Mg Tablet) 5 mg PO Q4H PRN PRN Reason: Pain, Moderate(Pain Scale 4-6) Last Admin: 10/05/23 05:21 Dose: 5 mg Pharmacy Consult (Consult Rx Vancomycin Dosing) 1 each MISCELLANE DAILY PRN PRN Reason: Consult order Prochlorperazine Edisylate (Prochlorperazine Edisylate 10 Mg/2 Ml Vial) 5 mg IVPUSH ONCE PRN PRN Reason: Nausea Sodium Chloride (0.9 % Sodium Chloride Flush 3 Ml Syringe) 3 ml IVFLUSH QSHIFT [facility] Last Admin: 10/05/23 10:20 Dose: Not Given Sodium Chloride (Sodium Chloride Tab 1 Gm Tablet) 2 gm PO TID [facility] Last Admin: 10/05/23 07:45 Dose: Not Given Sucralfate (Sucralfate 1 Gm Tablet) 4 gm PO DAILY@1200 [facility] Last Admin: 10/05/23 11:11 Dose: 4 gm Tiotropium Lentner (Tiotropium Lentner 2.5 Mcg 1 Puff/2.5 Mcg Mist.Inhal) 2 puff INHALE RDAILY [facility] Last Admin: 10/05/23 08:04 Dose: 2 puff Tolterodine Tartrate (Tolterodine Tartrate La 4 Mg Cap.Er.24h) 4 mg PO DAILY@09 [facility] Last Admin: 10/05/23 07:42 Dose: 4 mg Vitamin D (Cholecalciferol (Vitamin D3) 25 Mcg Tablet) 50 mcg PO DAILY@09 [facility] Last Admin: 10/05/23 07:42 Dose: 50 mcg Home Medications ?Medication ?Instructions ?Recorded ?Confirmed ?Type alosetron 0.5 mg tablet 1 mg PO DAILY@89907/22/23 09/28/23 History cholecalciferol (vitamin D3) 50 50 mcg PO DAILY@89907/22/23 09/28/23 History mcg (2,000 unit) capsule pantoprazole 40 mg tablet,delayed 40 mg PO DAILY@62907/22/23 09/28/23 History release solifenacin 10 mg tablet 10 mg PO DAILY@89907/22/23 09/28/23 History tiotropium bromide 18 mcg capsule 1 cap inhalation DAILY@899 copd 07/22/23 09/28/23 History with inhalation device (Spiriva with HandiHaler) sucralfate 1 gram tablet (Carafate) 4 g PO DAILY@119907/25/23 09/28/23 History budesonide 180 mcg/actuation 2 inh inhalation BID 09/28/23 09/28/23 History breath activated powder inhaler (Pulmicort Flexhaler) lorazepam 1 mg tablet 1 mg PO BID 09/28/23 09/28/23 History oxycodone 5 mg tablet 5 - 10 mg PO DAILY PRN pain 09/28/23 09/28/23 History Allergies Allergy/AdvReac Type Severity Reaction Status Date / Time No Known Allergies Allergy Unknown unknown Verified 09/28/23 09:37 [NO KNOWN ALLERGIES] Exam Vital signs: Vital Signs Temp 97.2 F 10/05/23 10:15 Pulse 80 10/05/23 10:15 Resp 18 10/05/23 10:15 BP 102/57 L 10/05/23 10:15 Pulse Ox 94 10/05/23 07:34 O2 Del Method Room Air 10/05/23 07:34 Intake & Output 10/04/23 10/05/23 10/05/23 18:59 06:59 18:59 Intake Total 2080 / 3605 1525 / 3605 150 / 150 Output Total 800 / 800 Balance 2080 / 2805 725 / 2805 150 / 150 Urine Output (Average ml/kg/hr) 1.12 1.12 Intake: Intake, Oral Amount 480 / 1640 1160 / 1640 Intake (Blood Product) Amount 0 / 0 Red Blood Cells (E0382) Unit 0 / 0 [id number] Intake, IV Amount 1600 / 1965 365 / 1965 150 / 150 0.9 % Sodium Chloride 1,000 ml 1000 / 1000 @ 999 mls/hr IV .Q1H1M [facility] Rx#: [id number] 0.9 % Sodium Chloride 100 ml @ 100 / 100 100 mls/hr IV ONCE ONE Rx#: [id number] Piperacillin Sodium/Tazobactam 50 / 150 100 / 150 50 / 50 3.375 gm In 0.9 % Sodium Chloride 50 ml @ 100 mls/hr IV Q6H [facility] Rx#:[id number] cefTRIAXone sodium 1 gm In 0.9 50 / 50 % Sodium Chloride 50 ml @ 100 mls/hr IV Q24H [facility] Rx#: [id number] vancomycin HCL 1,500 mg In 0.9 500 / 500 % Sodium Chloride 500 ml @ 333. 333 mls/hr IV ONCE ONE Rx#: [id number] vancomycin HCL 750 mg In 0.9 % 265 / 265 Sodium Chloride 250 ml @ 265 mls/hr IV Q12H [facility] Rx#: [id number] Output: Output, Urine Amount 800 / 800 Other: Meal Refused No NPO No Breakfast % Eaten 100% Lunch % Eaten 100% Dinner % Eaten 75% Eating (Feeding) Ability Independent Independent Number of Unmeasured Voids 2 Urine Bathroom Bathroom Urine Color Yellow Weight 59.5 kg BMI result Body Mass Index 24.0 - Constitutional Present: no acute distress, mild distress - Routine HEENT Exam Head: Present: atraumatic, normal inspection, normocephalic - Routine Neck Exam Present: full ROM, lymphadenopathy - Routine Respiratory Exam Present: decreased breath sounds - Routine Cardiovascular Exam Cardiovascular: Present: RRR, S1, S2 - Routine Abdominal Exam Present: soft, nontender - Routine Extremities Exam Present: full ROM, nontender - Routine Skin Exam Present: intact - Routine Neurological Exam Present: alert, oriented X3 Data - Labs CBC & Chem 7: 10/05/23 05:53 10/05/23 05:53 - Imaging Radiologist's impression: ITS Impressions Chest X-Ray 09/28/23 10:02 IMPRESSION: Right upper lobe mass with partial right upper lobe collapse/consolidation. There may be mild improvement when compared to the recent study. Chest CTA 09/28/23 12:07 IMPRESSION: 1. No evidence of pulmonary emboli. 2. Right suprahilar mass with associated adenopathy and collapse of the right upper lobe. Mediastinal adenopathy appears slightly improved. VTE: negative. Chest X-Ray 10/04/23 16:00 IMPRESSION: 1. Improved aeration to the right upper lobe with resolution of previously seen atelectasis. Residual area of thickening around the right upper lobe bronchus corresponding to the patient's known mass. 2. Streaky atelectasis at the left lung base. Assessment and Plan Patient Active problem list reviewed?: Yes (1) Small cell lung cancer Problem details: As noted above her recent bronchoscopic exam and bronchial biopsy are positive small cell carcinoma. Status: Acute Assessment and plan: 1. 63 year old lady with recent diagnosis of Small cell Lung Cancer, involving right hilum in August 2023. CT chest with contrast revealed a right suprahilar mass measuring 5.8 x 4.1 cm encasing and occluding right upper lobe bronchus with complete collapse of right upper lobe. This is a small stable left upper lobe 1 cm pulmonary nodule, enlarged mediastinal lymph nodes with 1.4 x 2.7 x 2.4 cm pretracheal lymph node. No pleural effusion or axillary adenopathy. Adrenals normal, no evidence of osseous metastatic disease. She had a CT head without contrast which was negative for metastasis. Clinical stage T3 N2, Stage IIIB LDH mildly elevated at 274, CEA 12.1 NG/ mL. She had presented with severe hyponatremia with sodium of 116 millimole per L secondary to SIADH/lung cancer. PET scan performed at [facility] on 09/11/2023 showed FDG avid right hilar/suprahilar mass with SUV 12.6, FDG avid mediastinal and right hilar lymphadenopathy. Left supraclavicular lymph node SUV max 4.2, right supraclavicular lymph node SUV max 2, right paratracheal SUV max 9.4, anterior mediastinal SUV max 4.8. Nonspecific focal activity in anal canal SUV 15.3. Patient reports that she has had surgery for rectal prolapse and continues to have intermittent rectal bleeding which could account for the uptake in the anal canal. Brain MRI performed 09/10/2023 showed no evidence of intracranial metastatic disease. MediPort was placed for administration of chemotherapy on 09/17. She was started on chemotherapy on 09/22. 2. Hyponatremia secondary to SIADH. She is on sodium bicarbonate tablets. She was unable to tolerate a urea. She is now on fluid restriction as well. 3. Pancytopenia secondary to recent chemotherapy. She received 1 dose Granix on 10/01/2023. Anemia has worsened, she is receiving 2 units PRBC. 4. Klebsiella UTI, she was on ceftriaxone. Neutropenic fever, she is on Zosyn. Blood cultures negative so far. - Time Spent With Patient Time Spent with Patient (in minutes): 10
[2023-10-05 14:38] LABS: Vancomycin Random 13.6 mcg/mL (15-20)
--- NOTE | 2023-10-05 14:42 | HE.PHANOTE ---
RE: VANCO DOSING Random came back as 13.6. Continue with dose of 750 mg q12h (predicted wyz=812 trough=17.5). Next random is scheduled for 10/06/23 @1400.
[2023-10-05] MEDS: Nicotine 14 MG PATCH.TD24 TRANSDERMA (15:16)
[2023-10-05] MEDS: Acetaminophen 325 MG TABLET 650 MG PO ×2 (15:30→23:36)
--- NOTE | 2023-10-05 16:28 | P.CNID_ITS ---
History of Present Illness Data of Consult Service Date: 10/05/23 Requesting physician: Jovanni Bergman Primary Care Provider: Sarthak Person MD HPI Reason for consult: pancytopenia,lung cancer treatment She presents with weakness and reported fever for several days. I dont see fever but has pancytopenia. She was hospitalized in September with believed postobstructive pneumonia. She has nausea and weakness and recent diagnosis small cell lung cancer. She has no cough or sputum production and is on room air. Review of Systems 2 Review of Systems: Yes all other systems are reviewed and are negative Constitutional: Constitutional: Reports chills, Reports fatigue and Reports lethargy Endocrine: Endocrine: Reports fatigue PMFSH Past Medical History Medical History COPD (chronic obstructive pulmonary disease) Small cell lung cancer (~08/2023) MDD (major depressive disorder), recurrent episode, moderate Abnormal CT scan, chest Mass of right lung Lung mass Bronchitis Rectal prolapse Nicotine dependence, cigarettes, uncomplicated Nonrheumatic mitral (valve) insufficiency Pulmonary nodule History of hepatitis C Osteopenia (~2011) IV drug user Endocarditis of mitral valve (~11/2017) Mitral valve prolapse Mitral regurgitation Early satiety Paresthesia of left leg Allergic rhinitis Facet arthritis of lumbar region Cervical spondylosis Vitamin D deficiency Pure hypercholesterolemia Benign essential hypertension GERD (gastroesophageal reflux disease) Anxiety Family History Family History Father Internal bleeding Mother Medical history unknown Family history: reviewed and not pertinent Surgical History Surgical History History of bronchoscopy (~2023) History of liver biopsy (~2009) History of partial colectomy (~2014) History of hysteroscopy (~2010) History of colonoscopy (~2017) Social History Social History Household Members: None Housing: House Housing Other:: lives alone with her cat Malena Do you presently have visiting nurse or other home services: No Alcohol intake: former Patient Tobacco Use Status: Never used Tobacco Tobacco use type: Cigarette Cigarette Packs Per Day: 0.5 Years Smoked: 45 years (onset 15, 1/2-3/4ppd x 44yrs, 28pyh) Smoked in Last 30 Days: Yes e-Cigarette/Vaping Use: Never Used Patient Interested in Nicotine Replacement: Yes Patient Given Instructions on How to Stop Smoking: Yes Date Education Initiated: 09/28/23 Second Hand Smoke Exposure: Yes Use of substances other than those prescribed or required for medical reasons: No Substance Use Type: Marijuana Currently Displaying Signs/Symptoms of Drug Intoxication Withdrawal: No Any prior treatment program specific to substance use: No Have you been hit, kicked, punched, or otherwise hurt by someone within the past year? If so, by whom?: No Do you feel safe in your current relationship?: No Is there a partner from a previous relationship who is making you feel unsafe now?: No Are you made to feel afraid or neglected: No Advance Directives: Yes Advance Directives on File: Yes Advance Directives Date on File: 12/18/21 Do you have a plan to hurt others: No Plan Recently lost weight without trying: Unsure How much weight loss: Unsure Eating poorly because of decreased appetite: Yes Nutrition screen score: 5 Nutrition Risks: No Nutritional Risk Patient : No : No Poor oral hygiene: No service: No Current occupational status: unemployed Sexual orientation: Straight/Heterosexual Gender identity: Female Cognitive needs: No Hearing needs: No Vision needs: Yes Meds Allergies Allergy/AdvReac Type Severity Reaction Status Date / Time No Known Allergies Allergy Unknown unknown Verified 09/28/23 09:37 [NO KNOWN ALLERGIES] Active Medications: Current Medications Acetaminophen (Acetaminophen 325 Mg Tablet) 650 mg PO Q6H PRN PRN Reason: Pain, Mild (Pain Scale 1-3), fever or headache Last Admin: 10/05/23 15:30 Dose: 650 mg Albuterol Sulfate (Albuterol Sulfate 90 Mcg 8 Gm Inhaler) 1 puff INHALE Q6H PRN PRN Reason: shortness of breath or wheezing Budesonide (Budesonide 180 Mcg Aer.Pow.Ba) 2 puff INHALE RBID MANUEL Last Admin: 10/05/23 08:05 Dose: 2 puff Calcium Carbonate (Calcium Carbonate 750 Mg Tab.Chew) 750 mg PO Q4H PRN PRN Reason: Heartburn Last Admin: 09/29/23 18:08 Dose: 750 mg Clonazepam (Clonazepam 0.5 Mg Tablet) 0.5 mg PO BID [facility] Last Admin: 10/05/23 07:42 Dose: 0.5 mg Escitalopram Oxalate (Escitalopram Oxalate 20 Mg Tablet) 20 mg PO DAILY [facility] Last Admin: 09/29/23 08:13 Dose: 20 mg Fluticasone Propionate (Fluticasone Propionate Nasal 16 Gm Melbeta) 1 spray NOSTRIL-B DAILY [facility] Last Admin: 10/05/23 10:25 Dose: Not Given Guaifenesin/Dextromethorphan (Guaifenesin Dm 100/10/5 Ml 5 Ml Syrup) 10 ml PO TID PRN PRN Reason: cough Heparin Sodium (Porcine) (Heparin Sodium,Porcine 5,000 Unit/Ml Vial) 5,000 unit SUBCUT Q12H [facility] Last Admin: 10/03/23 07:41 Dose: 5,000 unit Hydroxyzine HCl (Hydroxyzine Hcl 50 Mg Tablet) 50 mg PO BEDTIME [facility] Last Admin: 10/04/23 21:21 Dose: 50 mg Vancomycin HCl 750 mg/ Sodium (Chloride) 265 mls @ 265 mls/hr IV Q12H [facility] Last Admin: 10/05/23 15:30 Dose: 265 mls/hr Piperacillin Sod/Tazobactam (Sod 3.375 gm/ Sodium Chloride) 50 mls @ 100 mls/hr IV Q6H [facility] Last Infusion: 10/05/23 11:48 Dose: Infused Losartan Potassium (Losartan Potassium 25 Mg Tablet) 25 mg PO DAILY@0900 [facility]; Protocol Last Admin: 09/29/23 08:12 Dose: 25 mg Magnesium Hydroxide (Milk Of Magnesia 30 Ml Oral.Susp) 30 ml PO DAILY PRN PRN Reason: Constipation Melatonin (Melatonin 3 Mg Tablet) 6 mg PO BEDTIME PRN PRN Reason: Insomnia Last Admin: 09/30/23 19:58 Dose: 6 mg Metoclopramide HCl (Metoclopramide Hcl 5 Mg Tablet) 5 mg PO TID [facility] Last Admin: 10/05/23 15:16 Dose: 5 mg Metoprolol Succinate (Metoprolol Succinate Er 50 Mg Tab.Er.24h) 50 mg PO DAILY [facility]; Protocol Last Admin: 10/05/23 07:42 Dose: 50 mg Mirtazapine (Mirtazapine 30 Mg Tablet) 30 mg PO BEDTIME [facility] Last Admin: 10/04/23 21:22 Dose: 30 mg Morphine Sulfate (Morphine Sulfate 2 Mg/Ml Cartridge) 2 mg IVPUSH Q3H PRN; Protocol PRN Reason: Pain, Severe (Pain Scale 7-10) Nicotine (Nicotine 14 Mg Patch.Td24) 14 mg TRANSDERMA Q24H [facility] Last Admin: 10/05/23 15:16 Dose: 14 mg Non-Formulary Medication (Alosetron) 1 mg PO DAILY@0900 [facility] Omeprazole (Omeprazole 20 Mg Capsule.Dr) 20 mg PO DAILY@0630 [facility] Last Admin: 10/05/23 05:08 Dose: 20 mg Ondansetron HCl (Ondansetron Hcl 4 Mg/2 Ml Vial) 4 mg IVPUSH Q8H PRN PRN Reason: Nausea and Vomiting Last Admin: 10/04/23 16:35 Dose: 4 mg Oxycodone HCl (Oxycodone Hcl Immed Release 5 Mg Tablet) 5 mg PO Q4H PRN PRN Reason: Pain, Moderate(Pain Scale 4-6) Last Admin: 10/05/23 13:07 Dose: 5 mg Pharmacy Consult (Consult Rx Vancomycin Dosing) 1 each MISCELLANE DAILY PRN PRN Reason: Consult order Prochlorperazine Edisylate (Prochlorperazine Edisylate 10 Mg/2 Ml Vial) 5 mg IVPUSH ONCE PRN PRN Reason: Nausea Sodium Chloride (0.9 % Sodium Chloride Flush 3 Ml Syringe) 3 ml IVFLUSH QSHIFT [facility] Last Admin: 10/05/23 10:20 Dose: Not Given Sodium Chloride (Sodium Chloride Tab 1 Gm Tablet) 2 gm PO TID [facility] Last Admin: 10/05/23 07:45 Dose: Not Given Sucralfate (Sucralfate 1 Gm Tablet) 4 gm PO DAILY@1200 [facility] Last Admin: 10/05/23 11:11 Dose: 4 gm Tiotropium Eakly (Tiotropium Eakly 2.5 Mcg 1 Puff/2.5 Mcg Mist.Inhal) 2 puff INHALE RDAILY [facility] Last Admin: 10/05/23 08:04 Dose: 2 puff Tolterodine Tartrate (Tolterodine Tartrate La 4 Mg Cap.Er.24h) 4 mg PO DAILY@0900 [facility] Last Admin: 10/05/23 07:42 Dose: 4 mg Vitamin D (Cholecalciferol (Vitamin D3) 25 Mcg Tablet) 50 mcg PO DAILY@0900 [facility] Last Admin: 10/05/23 07:42 Dose: 50 mcg Home Medications ?Medication ?Instructions ?Recorded ?Confirmed ?Last Taken ?Type alosetron 0.5 mg tablet 1 mg PO DAILY@0900 07/22/23 09/28/23 09/28/23 History cholecalciferol (vitamin D3) 50 50 mcg PO DAILY@0900 07/22/23 09/28/23 09/28/23 History mcg (2,000 unit) capsule pantoprazole 40 mg tablet,delayed 40 mg PO DAILY@0630 07/22/23 09/28/23 09/28/23 History release solifenacin 10 mg tablet 10 mg PO DAILY@0907/22/23 09/28/23 09/28/23 History tiotropium bromide 18 mcg capsule 1 cap inhalation DAILY@0900 copd 07/22/23 09/28/23 09/28/23 History with inhalation device (Spiriva with HandiHaler) sucralfate 1 gram tablet (Carafate) 4 g PO DAILY@1200 07/25/23 09/28/23 09/28/23 History budesonide 180 mcg/actuation 2 inh inhalation BID 09/28/23 09/28/23 09/28/23 History breath activated powder inhaler (Pulmicort Flexhaler) lorazepam 1 mg tablet 1 mg PO BID 09/28/23 09/28/23 09/28/23 History oxycodone 5 mg tablet 5 - 10 mg PO DAILY PRN pain 09/28/23 09/28/23 Unknown History Physical Exam 2 Vital Signs: Vital Signs: Last Vital Signs Temp 97.4 F 10/05/23 13:51 Pulse 80 10/05/23 13:51 Resp 18 10/05/23 13:51 BP 120/57 L 10/05/23 13:51 Pulse Ox 94 10/05/23 07:34 O2 Del Method Room Air 10/05/23 07:34 BMI result Body Mass Index 24.0 Const: General: cooperative HEENT: Head: Yes normal to inspection Face and sinus: Yes normal facial exam Mouth: Normal oral and palatal mucosa present Teeth and gingiva: d entition normal Eyes: General: appearance normal, both eyes and all related structures P upils: Equal, round and reactive pupils present Resp: Effort & Inspection: normal respiratory effort Cardio: Rate: regular rate Rhythm: regular rhythm GI: Palpation (GI): Soft to palpation and nontender : General: Yes no CVA tenderness Back/Spine/Pelvis: Back: no CVA tenderness Skin: General skin exam: no rashes or lesions noted Neuro: General: moves all extremities Cranial nerves: Yes Equal, round and reactive pupils present Extrem: General: Yes normal to inspection Psych: Appearance: grossly normal Results Labs 10/05/23 05:53 10/05/23 05:53 Labs: Short CBC 10/05/23 Range/Units 05:53 WBC 1.2 L (4.8-10.8) X10*3/uL Hgb 5.7 L* (12.0-16.0) g/dl Hct 17.2 L* (37.0-47.0) % Plt Count 22 L D (160-400) X10*3/uL BMP 10/05/23 05:53 Sodium 140 Potassium 3.4 Chloride 109 H Carbon Dioxide 22 BUN 18 H Creatinine 0.84 Calcium 8.1 L Urine 10/04/23 Range/Units 22:06 Urine Color Yellow Urine Appearance Clear Urine pH 5.5 (5.0-9.0) Ur Specific [place] 1.020 (1.005-1.025) Urine Protein Negative (Neg-Trace) mg/dL Urine Glucose (UA) Negative (Negative) mg/dL Microbiology Microbiology Results: Microbiology 09/28/23 10:58 Blood - Venous Blood Culture - Final No growth after 5 days. 09/28/23 10:44 Blood - Venous Blood Culture - Final No growth after 5 days. 09/28/23 Unknown Urine clean catch - Urine garcia top Urine Culture - Final Klebsiella pneumoniae Assessment and Plan (1) Pancytopenia: Status: Acute Plan I dont see evidence of fever or hypoxia or sepsis or bacteremia at this time. There is possible malignancy concern Await cultures. If no changes tomorrow probable po Doxycycline 100 mg bid for a week in case theres some mild postobstructive bronchiectasis.
[2023-10-05] MEDS: Sodium Chloride Tab 1 GM TABLET 2 GM PO ×2 (16:56→19:22)
[2023-10-05] MEDS: 0.9 % Sodium Chloride Flush 3 ML SYRINGE IVFLUSH (19:22)
[2023-10-05] MEDS: Mirtazapine 30 MG TABLET PO (19:22)
[2023-10-05] MEDS: hydrOXYzine HCL 50 MG TABLET PO (19:23)
[2023-10-06 03:33] VITALS: BP 102/61; PULSE 86; RESP 17; TEMP 36.7; O2SAT 93
[2023-10-06] MEDS: vancomycin HCL 750 MG in 0.9 % Sodium Chloride 250 ML 265 MG IV ×2 (04:40→16:21)
[2023-10-06] MEDS: Morphine Sulfate 2 MG/ML CARTRIDGE IVPUSH ×6 (04:47→23:58)
[2023-10-06 05:58] LABS: Hematocrit 25.9 % (37.0-47.0); Hemoglobin 8.9 g/dl (12.0-16.0); Mean Corpuscular HGB Conc 34.4 g/dl (31.0-35.0); Mean Corpuscular Volume 84.4 fL (80.0-98.0); Mean Platelet Volume 11.1 fL (9.4-12.3); Red Blood Count 3.07 X10*6/uL (4.20-5.50); Red Cell Distribution Width 14.7 % (11.0-16.0)
[2023-10-06 05:59] LABS: NRBC Pct Auto 1.7 /100WBC (0.0-0.2)
[2023-10-06] MEDS: Piperacillin Sodium/Tazobactam 3.375 GM in 0.9 % Sodium Chloride 50 ML IV ×3 (05:59→17:35)
[2023-10-06] MEDS: Omeprazole 20 MG CAPSULE.DR PO (06:00)
[2023-10-06] MEDS: oxyCODONE HCl Immed Release 5 MG TABLET PO ×3 (06:06→14:34)
[2023-10-06 06:25] LABS: Anion Gap 12 (12-20); Blood Urea Nitrogen 20 mg/dL (9-16); Calcium 8.2 mg/dL (8.4-10.2); Carbon Dioxide 25 mmol/L (22-29); Chloride 107 mmol/L (96-108); Creatinine Clr Calc Pharmacy 58.3; Estimated Glomerular Filt Rate > 60; Glucose Random 93 mg/dL (60-115); Potassium 3.3 mmol/L (3.3-5.1); Sodium 141 mmol/L (135-145)
[2023-10-06] MEDS: Tiotropium Bromide 2.5 mcg 1 PUFF/2.5 MCG MIST.INHAL 2 PUFF INHALE (07:49)
[2023-10-06] MEDS: Budesonide 180 MCG AER.POW.BA 2 PUFF INHALE ×2 (07:49→20:24)
[2023-10-06 07:51] VITALS: PULSE 86; RESP 17; O2SAT 95
[2023-10-06 07:57] VITALS: BP 167/74; PULSE 89; RESP 17; TEMP 36.3; O2SAT 96
[2023-10-06 07:59] LABS: WBC ABN SCTR FOR CBC 1
[2023-10-06 08:01] LABS: Platelet Count 24 X10*3/uL (160-400); White Blood Count 4.1 X10*3/uL (4.8-10.8)
[2023-10-06 08:27] LABS: Atypical Lymph Absolute Manual 0.2 x10*3/uL; Atypical Lymphs Percent Manual 5 % (0-6); Band Neutrophils Percent 5 % (3-5); Eosinophils Absolute Manual 0.2 X10*3/uL (0.0-0.4); Eosinophils Percent Manual 5 % (0-4); Lymphocytes Absolute Manual 1.7 X10*3/uL (1.2-4.9); Lymphocytes Percent Manual 42 % (20-40); Metamyelocytes Absolute 0.4 X10*3/uL; Metamyelocytes Percent 9 %; Monocytes Absolute Manual 0.5 X10*3/uL (0.1-1.2); Monocytes Percent Manual 12 % (2-11); Myelocytes Percent 1 %; Neutrophils Absolute Manual 1.1 X10*3/uL (2.0-8.3); Neutrophils Percent Manual 21 % (45-73)
[2023-10-06 08:28] LABS: Platelet Estimate DECREASED (NORMAL); Platelet Morphology Comment NORMAL; Toxic Vacuolation PRESENT
[2023-10-06 08:31] LABS: Polychromasia 1+ (0-2) /OIF; RBC Morphology NOTED
[2023-10-06] MEDS: Metoprolol Succinate ER 50 MG TAB.ER.24H PO (09:12)
[2023-10-06] MEDS: Sodium Chloride Tab 1 GM TABLET 2 GM PO (09:12)
[2023-10-06] MEDS: Tolterodine Tartrate LA 4 MG CAP.ER.24H PO (09:12)
[2023-10-06] MEDS: Metoclopramide HCl 5 MG TABLET PO ×3 (09:13→20:33)
[2023-10-06] MEDS: Cholecalciferol (Vitamin D3) 25 MCG TABLET 50 MCG PO (09:13)
[2023-10-06] MEDS: clonazePAM 0.5 MG TABLET PO ×2 (09:13→20:33)
[2023-10-06] MEDS: 0.9 % Sodium Chloride Flush 3 ML SYRINGE IVFLUSH ×2 (09:15→20:34)
--- NOTE | 2023-10-06 09:53 | P.PNNP_ITS ---
Subjective Subjective Date of Service: 10/06/23 Interval history: He events noted Physical Exam 2 Vital Signs: Vital Signs: Last Vital Signs Temp 97.4 F 10/06/23 07:57 Pulse 89 10/06/23 07:57 Resp 17 10/06/23 07:57 BP 167/74 H 10/06/23 07:57 Pulse Ox 96 10/06/23 07:57 O2 Del Method Room Air 10/06/23 07:57 BMI result Body Mass Index 24.0 Const: General: no acute distress Eyes: EOM: EOMs intact bilaterally Neck: Neck: Yes supple Resp: Auscultation: diminished lung sounds Cardio: Rate: regular rate GI: Palpation (GI): Soft to palpation Neuro: General: moves all extremities Objective Data Labs 10/07/23 05:34 10/07/23 05:34 Labs: Laboratory Results - last 24 hr 10/04/23 10/05/23 10/05/23 15:49 07:22 14:01 WBC RBC Hgb Hct MCV MCH MCHC RDW Plt Count MPV Immature Gran % (Auto) Neut % (Auto) Lymph % (Auto) Stephens % (Auto) Eos % (Auto) Baso % (Auto) Lymph # (Auto) Stephens # (Auto) Eos # (Auto) Baso # (Auto) Abs Immat Gran (auto) Absolute Neuts (auto) Absolute Nucleated RBC Nucleated RBC % (auto) Neutrophils % (Manual) Band Neutrophils % Lymphocytes % (Manual) Atypical Lymphs % (Man) Monocytes % (Manual) Eosinophils % (Manual) Metamyelocytes % Myelocytes % Abs Neuts (Manual) Lymphocytes # (Manual) Atyp Lymphs # (Manual) Monocytes # (Manual) Eosinophils # (Manual) Metamyelocytes # Toxic Vacuolation Platelet Estimate Plt Morphology Comment RBC Morphology Polychromasia Sodium Potassium Chloride Carbon Dioxide Anion Gap BUN Creatinine Estim Creat Clear Calc Estimated GFR Random Glucose Calcium Random Vancomycin 13.6 L Respiratory Panel Allen See Note Adenovirus (Rapid PCR) Not Detected B.pert (TEM-PCR) Not Detected B.parapertussis DNA PCR Not Detected C. pneumoniae DNA (PCR) Not Detected Coronavirus OC43 (PCR) Not Detected Coronavirus HKU1 (PCR) Not Detected Coronavirus 229E (PCR) Not Detected Coronavirus NL63 (PCR) Not Detected Human Metapneumovir PCR Not Detected Influenza A (RT-PCR) Not Detected Influenza B (RT-PCR) Not Detected M. pneumoniae (PCR) Not Detected Parainfluenza 1 (PCR) Not Detected Parainfluenza 2 (PCR) Not Detected Parainfluenza 3 (PCR) Not Detected Parainfluenza 4 (PCR) Not Detected RSV (PCR) Not Detected Entero/Rhino (PCR) Not Detected SARS-CoV-2 RNA (RT-PCR) Not Detected Blood Type B Positive Antibody Screen NEGATIVE Crossmatch (AHG) See Detail 10/06/23 10/06/23 10/06/23 05:06 05:06 05:06 WBC 4.1 L RBC 3.07 L D Hgb 8.9 L D Hct 25.9 L D MCV 84.4 MCH 29.0 MCHC 34.4 RDW 14.7 Plt Count 24 L MPV 11.1 Immature Gran % (Auto) Cancelled Neut % (Auto) Cancelled Lymph % (Auto) Cancelled Stephens % (Auto) Cancelled Eos % (Auto) Cancelled Baso % (Auto) Cancelled Lymph # (Auto) Cancelled Stephens # (Auto) Cancelled Eos # (Auto) Cancelled Baso # (Auto) Cancelled Abs Immat Gran (auto) Cancelled Absolute Neuts (auto) Cancelled Absolute Nucleated RBC 0.070 H Nucleated RBC % (auto) 1.7 H Neutrophils % (Manual) 21 L Band Neutrophils % 5 Lymphocytes % (Manual) 42 H Atypical Lymphs % (Man) 5 Monocytes % (Manual) 12 H Eosinophils % (Manual) 5 H Metamyelocytes % 9 Myelocytes % 1 Abs Neuts (Manual) 1.1 L Lymphocytes # (Manual) 1.7 Atyp Lymphs # (Manual) 0.2 Monocytes # (Manual) 0.5 Eosinophils # (Manual) 0.2 Metamyelocytes # 0.4 Toxic Vacuolation PRESENT Platelet Estimate DECREASED Plt Morphology Comment NORMAL RBC Morphology NOTED Polychromasia 1+ (0-2) Sodium 141 Potassium 3.3 Chloride 107 Carbon Dioxide 25 Anion Gap 12 BUN 20 H Creatinine Cancelled 0.77 Estim Creat Clear Calc Cancelled 58.3 Estimated GFR Cancelled Random Glucose Calcium Random Vancomycin Respiratory Panel [place] Adenovirus (Rapid PCR) B.pert (TEM-PCR) B.parapertussis DNA PCR C. pneumoniae DNA (PCR) Coronavirus OC43 (PCR) Coronavirus HKU1 (PCR) Coronavirus 229E (PCR) Coronavirus NL63 (PCR) Human Metapneumovir PCR Influenza A (RT-PCR) Influenza B (RT-PCR) M. pneumoniae (PCR) Parainfluenza 1 (PCR) Parainfluenza 2 (PCR) Parainfluenza 3 (PCR) Parainfluenza 4 (PCR) RSV (PCR) Entero/Rhino (PCR) SARS-CoV-2 RNA (RT-PCR) Blood Type Antibody Screen Crossmatch (AHG) 10/06/23 05:06 WBC RBC Hgb Hct MCV MCH MCHC RDW Plt Count MPV Immature Gran % (Auto) Neut % (Auto) Lymph % (Auto) Stephens % (Auto) Eos % (Auto) Baso % (Auto) Lymph # (Auto) Stephens # (Auto) Eos # (Auto) Baso # (Auto) Abs Immat Gran (auto) Absolute Neuts (auto) Absolute Nucleated RBC Nucleated RBC % (auto) Neutrophils % (Manual) Band Neutrophils % Lymphocytes % (Manual) Atypical Lymphs % (Man) Monocytes % (Manual) Eosinophils % (Manual) Metamyelocytes % Myelocytes % Abs Neuts (Manual) Lymphocytes # (Manual) Atyp Lymphs # (Manual) Monocytes # (Manual) Eosinophils # (Manual) Metamyelocytes # Toxic Vacuolation Platelet Estimate Plt Morphology Comment RBC Morphology Polychromasia Sodium Potassium Chloride Carbon Dioxide Anion Gap BUN Creatinine Estim Creat Clear Calc Estimated GFR > 60 Random Glucose 93 Calcium 8.2 L Random Vancomycin Respiratory Panel [place] Adenovirus (Rapid PCR) B.pert (TEM-PCR) B.parapertussis DNA PCR C. pneumoniae DNA (PCR) Coronavirus OC43 (PCR) Coronavirus HKU1 (PCR) Coronavirus 229E (PCR) Coronavirus NL63 (PCR) Human Metapneumovir PCR Influenza A (RT-PCR) Influenza B (RT-PCR) M. pneumoniae (PCR) Parainfluenza 1 (PCR) Parainfluenza 2 (PCR) Parainfluenza 3 (PCR) Parainfluenza 4 (PCR) RSV (PCR) Entero/Rhino (PCR) SARS-CoV-2 RNA (RT-PCR) Blood Type Antibody Screen Crossmatch (AH) Microbiology Microbiology Results: Microbiology 10/04/23 15:42 Blood - Venous Blood Culture - Preliminary No growth after 24 hours. 10/04/23 15:42 Blood - Venous Blood Culture - Preliminary No growth after 24 hours. 09/28/23 10:58 Blood - Venous Blood Culture - Final No growth after 5 days. 09/28/23 10:44 Blood - Venous Blood Culture - Final No growth after 5 days. 09/28/23 Unknown Urine clean catch - Urine garcia top Urine Culture - Final Klebsiella pneumoniae Procedures Date of Service Date of Service: 10/07/23 Assessment & Plan Assessment and plan (1) Hyponatremia: Status: Acute Plan Hyponatremia due to excess ADH Could not tolerate oral urea Sodium has been stable and staying about 140. Currently on oral sodium chloride tablets 2 g t.i.d.. Would gradually taper sodium chloride tablets to 1 g t.i.d. and watch serum sodium.(10/06/23) Needs p.o. free water restriction. Monitor serum sodium Time Spent With Patient Time: Total time managing care of this patient today ____ minutes. Progress Note: Quality Stroke Does the patient have a stroke diagnosis?: No
[2023-10-06] MEDS: Cyclobenzaprine HCl 5 MG TABLET PO ×2 (10:25→20:33)
[2023-10-06] MEDS: Sucralfate 1 GM TABLET 4 GM PO (13:20)
[2023-10-06] MEDS: Fluticasone Propionate Nasal 16 GM SPRAY 1 SPRAY NOSTRIL-B (14:34)
--- NOTE | 2023-10-06 14:55 | P.PNIM_ITS ---
Subjective Subjective Date of Service: 10/06/23 Interval History: Seen and evaluated this morning Pancytopenia improving Hb of 8.9 , WBC 4.1 Feels weak and anxious had chills and fever yesterday no other overnight events Review of Systems Review of Systems: Yes all other systems are reviewed and are negative Physical Exam 2 Vital Signs: Vital Signs: Last Vital Signs Temp 97.4 F 10/06/23 07:57 Pulse 89 10/06/23 07:57 Resp 17 10/06/23 07:57 BP 167/74 H 10/06/23 07:57 Pulse Ox 96 10/06/23 07:57 O2 Del Method Room Air 10/06/23 07:57 BMI result Body Mass Index 24.0 Const: Other: Constitutional : Awake, interactive, less anxious Neck : Normal inspection, Supple Cardiovascular : RRR, no JVP, no lower extremity edema Respiratory : good bilateral air entry, LLL fine crackles, wheezes or rhonchi Gastrointestinal: soft, lax, Normal bowel sounds, Non tender Skin : Warm, Dry Neurological : Alert & oriented x3, No focal deficit Objective Data Active Medications Acetaminophen (Acetaminophen 325 Mg Tablet) 650 mg PO Q6H PRN PRN Reason: Pain, Mild (Pain Scale 1-3), fever or headache Last Admin: 10/05/23 23:36 Dose: 650 mg Documented By: GLENIS Albuterol Sulfate (Albuterol Sulfate 90 Mcg 8 Gm Inhaler) 1 puff INHALE Q6H PRN PRN Reason: shortness of breath or wheezing Budesonide (Budesonide 180 Mcg Aer.Pow.Ba) 2 puff INHALE [facility] Last Admin: 10/06/23 07:49 Dose: 2 puff Documented By: CECILIA Calcium Carbonate (Calcium Carbonate 750 Mg Tab.Chew) 750 mg PO Q4H PRN PRN Reason: Heartburn Last Admin: 09/29/23 18:08 Dose: 750 mg Documented By: JOSE Clonazepam (Clonazepam 0.5 Mg Tablet) 0.5 mg PO BID [facility] Last Admin: 10/06/23 09:13 Dose: 0.5 mg Documented By: DOBROMarci Cyclobenzaprine HCl (Cyclobenzaprine Hcl 5 Mg Tablet) 5 mg PO BID [facility] Last Admin: 10/06/23 10:25 Dose: 5 mg Documented By: MANJU Escitalopram Oxalate (Escitalopram Oxalate 20 Mg Tablet) 20 mg PO DAILY [facility] Last Admin: 09/29/23 08:13 Dose: 20 mg Documented By: JOSE Fluticasone Propionate (Fluticasone Propionate Nasal 16 Gm [place]) 1 spray NOSTRIL-B DAILY [facility] Last Admin: 10/06/23 14:34 Dose: 1 spray Documented By: MANJU Guaifenesin/Dextromethorphan (Guaifenesin Dm 100/10/5 Ml 5 Ml Syrup) 10 ml PO TID PRN PRN Reason: cough Heparin Sodium (Porcine) (Heparin Sodium,Porcine 5,000 Unit/Ml Vial) 5,000 unit SUBCUT Q12H [facility] Last Admin: 10/03/23 07:41 Dose: 5,000 unit Documented By: DELMIS Hydroxyzine HCl (Hydroxyzine Hcl 50 Mg Tablet) 50 mg PO BEDTIME [facility] Last Admin: 10/05/23 19:23 Dose: 50 mg Documented By: GLENIS Vancomycin HCl 750 mg/ Sodium (Chloride) 265 mls @ 265 mls/hr IV Q12H [facility] Last Infusion: 10/06/23 05:45 Dose: Infused Documented By: GLENIS Piperacillin Sod/Tazobactam (Sod 3.375 gm/ Sodium Chloride) 50 mls @ 100 mls/hr IV Q6H [facility] Last Infusion: 10/06/23 14:36 Dose: Infused Documented By: MANJU Losartan Potassium (Losartan Potassium 25 Mg Tablet) 25 mg PO DAILY@0900 [facility]; Protocol Last Admin: 09/29/23 08:12 Dose: 25 mg Documented By: JOSE Magnesium Hydroxide (Milk Of Magnesia 30 Ml Oral.Susp) 30 ml PO DAILY PRN PRN Reason: Constipation Melatonin (Melatonin 3 Mg Tablet) 6 mg PO BEDTIME PRN PRN Reason: Insomnia Last Admin: 09/30/23 19:58 Dose: 6 mg Documented By: GLENIS Metoclopramide HCl (Metoclopramide Hcl 5 Mg Tablet) 5 mg PO TID [facility] Last Admin: 10/06/23 09:13 Dose: 5 mg Documented By: MANJU Metoprolol Succinate (Metoprolol Succinate Er 50 Mg Tab.Er.24h) 50 mg PO DAILY [facility]; Protocol Last Admin: 10/06/23 09:12 Dose: 50 mg Documented By: MANJU Mirtazapine (Mirtazapine 30 Mg Tablet) 30 mg PO BEDTIME [facility] Last Admin: 10/05/23 19:22 Dose: 30 mg Documented By: GLENIS Morphine Sulfate (Morphine Sulfate 2 Mg/Ml Cartridge) 2 mg IVPUSH Q3H PRN; Protocol PRN Reason: Pain, Severe (Pain Scale 7-10) Last Admin: 10/06/23 13:17 Dose: 2 mg Documented By: MANJU Nicotine (Nicotine 14 Mg Patch.Td24) 14 mg TRANSDERMA Q24H [facility] Last Admin: 10/05/23 15:16 Dose: 14 mg Documented By: MUKUND Non-Formulary Medication (Alosetron) 1 mg PO DAILY@0900 [facility] Omeprazole (Omeprazole 20 Mg Capsule.Dr) 20 mg PO DAILY@0630 [facility] Last Admin: 10/06/23 06:00 Dose: 20 mg Documented By: GLENIS Ondansetron HCl (Ondansetron Hcl 4 Mg/2 Ml Vial) 4 mg IVPUSH Q8H PRN PRN Reason: Nausea and Vomiting Last Admin: 10/04/23 16:35 Dose: 4 mg Documented By: KARTHIK Oxycodone HCl (Oxycodone Hcl Immed Release 5 Mg Tablet) 5 mg PO Q4H PRN PRN Reason: Pain, Moderate(Pain Scale 4-6) Last Admin: 10/06/23 14:34 Dose: 5 mg Documented By: MAJNU Pharmacy Consult (Consult Rx Vancomycin Dosing) 1 each MISCELLANE DAILY PRN PRN Reason: Consult order Prochlorperazine Edisylate (Prochlorperazine Edisylate 10 Mg/2 Ml Vial) 5 mg IVPUSH ONCE PRN PRN Reason: Nausea Sodium Chloride (0.9 % Sodium Chloride Flush 3 Ml Syringe) 3 ml IVFLUSH QSHIFT [facility] Last Admin: 10/06/23 09:15 Dose: 3 ml Documented By: MANJU Sodium Chloride (Sodium Chloride Tab 1 Gm Tablet) 1 gm PO TID [facility] Sucralfate (Sucralfate 1 Gm Tablet) 4 gm PO DAILY@1200 [facility] Last Admin: 10/06/23 13:20 Dose: 4 gm Documented By: MANJU Tiotropium [place] (Tiotropium [place] 2.5 Mcg 1 Puff/2.5 Mcg Mist.Inhal) 2 puff INHALE RDAILY [facility] Last Admin: 10/06/23 07:49 Dose: 2 puff Documented By: CECILIA Tolterodine Tartrate (Tolterodine Tartrate [place] 4 Mg Cap.Er.24h) 4 mg PO DAILY@0900 [facility] Last Admin: 10/06/23 09:12 Dose: 4 mg Documented By: MANJU Vitamin D (Cholecalciferol (Vitamin D3) 25 Mcg Tablet) 50 mcg PO DAILY@0900 [facility] Last Admin: 10/06/23 09:13 Dose: 50 mcg Documented By: AMNJU Labs 10/06/23 05:06 10/06/23 05:06 Labs: Laboratory Results - last 24 hr 10/05/23 10/06/23 10/06/23 07:22 05:06 05:06 MCV 84.4 MCH 29.0 MCHC 34.4 RDW 14.7 Plt Count 24 L MPV 11.1 Immature Gran % (Auto) Cancelled Neut % (Auto) Cancelled Lymph % (Auto) Cancelled [place] % (Auto) Cancelled Eos % (Auto) Cancelled Baso % (Auto) Cancelled Lymph # (Auto) Cancelled [place] # (Auto) Cancelled Eos # (Auto) Cancelled Baso # (Auto) Cancelled Abs Immat Gran (auto) Cancelled Absolute Neuts (auto) Cancelled Absolute Nucleated RBC 0.070 H Nucleated RBC % (auto) 1.7 H Neutrophils % (Manual) 21 L Band Neutrophils % 5 Lymphocytes % (Manual) 42 H Atypical Lymphs % (Man) 5 Monocytes % (Manual) 12 H Eosinophils % (Manual) 5 H Metamyelocytes % 9 Myelocytes % 1 Abs Neuts (Manual) 1.1 L Lymphocytes # (Manual) 1.7 Atyp Lymphs # (Manual) 0.2 Monocytes # (Manual) 0.5 Eosinophils # (Manual) 0.2 Metamyelocytes # 0.4 Toxic Vacuolation PRESENT Platelet Estimate DECREASED Plt Morphology Comment NORMAL RBC Morphology NOTED Polychromasia 1+ (0-2) Anion Gap 12 Estim Creat Clear Calc Cancelled 58.3 Estimated GFR Cancelled Random Glucose Calcium Crossmatch ([facility]) See Detail 10/06/23 05:06 MCV MCH MCHC RDW Plt Count MPV Immature Gran % (Auto) Neut % (Auto) Lymph % (Auto) [place] % (Auto) Eos % (Auto) Baso % (Auto) Lymph # (Auto) [place] # (Auto) Eos # (Auto) Baso # (Auto) Abs Immat Gran (auto) Absolute Neuts (auto) Absolute Nucleated RBC Nucleated RBC % (auto) Neutrophils % (Manual) Band Neutrophils % Lymphocytes % (Manual) Atypical Lymphs % (Man) Monocytes % (Manual) Eosinophils % (Manual) Metamyelocytes % Myelocytes % Abs Neuts (Manual) Lymphocytes # (Manual) Atyp Lymphs # (Manual) Monocytes # (Manual) Eosinophils # (Manual) Metamyelocytes # Toxic Vacuolation Platelet Estimate Plt Morphology Comment RBC Morphology Polychromasia Anion Gap Estim Creat Clear Calc Estimated GFR > 60 Random Glucose 93 Calcium 8.2 L Crossmatch ([facility]) Microbiology Microbiology Results: Microbiology 10/04/23 15:42 Blood Culture - Preliminary Blood - Venous No growth after 24 hours. 10/04/23 15:42 Blood Culture - Preliminary Blood - Venous No growth after 24 hours. 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 presented with nausea and vomiting Acute Pancytopenia with symptomatic anemia and neutropenia improving WBC of 4.1, Hb 8.9 ANC almost 800 today secondary to recent chemotherapy transfuse 2 units PRBCs Oncology following received Filgrastim ,to give extra dose neutropenic precautions Neutropenic fever not convincing fever pending cultures CXR suggesting possible pneumonia IV Abx of Vancomycin and Zosyn , deescalate to PO Doxy if Cx negative ID consult follow vanco trough Acute on chronic hyponatremia Due to 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 improved to normal Continue fluid restriction, Continue sodium tablets Monitor sodium levels Nausea vomiting due to chemotherapy Improved , Reglan atc PRN Zofran advanced diet Acute hypokalemia resolved Anxiety, depression Psychiatry input appreciated Acute hypomagnesemia Give IV Replacement Acute UTI Klebsiella in urine on Abx since (09/28) Small-cell lung cancer Follow up Oncology COPD Continue inhalers Hypertension Losartan, metoprolol GERD PPI DVT prophylaxis Hold heparin subQ for low PLT Full code reason for continued hospitalization: concern of NEutropenic fever on IV antibiotics pending final blood cultures Quality Stroke Does the patient have a stroke diagnosis?: No VTE Prior VTE?: No VTE Risk Level:: Medical - moderate - high VTE Device Contraindication: Treatment Not Indicated VTE Drug Contraindication: N/A - Med Ordered
[2023-10-06 15:15] VITALS: BP 160/82; PULSE 91; RESP 15; TEMP 36; O2SAT 97
[2023-10-06 15:41] LABS: Vancomycin Random 14.8 mcg/mL (15-20)
[2023-10-06] MEDS: Nicotine 14 MG PATCH.TD24 TRANSDERMA (16:28)
[2023-10-06] MEDS: Sodium Chloride Tab 1 GM TABLET PO ×2 (16:29→20:33)
--- NOTE | 2023-10-06 16:30 | PC.NURSE ---
Patient oxygen saturation below 90%, patient was placed on 2L NC - sats went up to 92%
[2023-10-06 19:10] VITALS: BP 146/77; PULSE 90; RESP 18; TEMP 36.1
[2023-10-06 20:27] VITALS: PULSE 81; RESP 18; O2SAT 86
[2023-10-06] MEDS: hydrOXYzine HCL 50 MG TABLET PO (20:33)
[2023-10-06] MEDS: Mirtazapine 30 MG TABLET PO (20:33)
[2023-10-07] MEDS: Acetaminophen 325 MG TABLET 650 MG PO (02:38)
[2023-10-07] MEDS: LORazepam 1 MG TABLET PO (02:38)
[2023-10-07] MEDS: vancomycin HCL 750 MG in 0.9 % Sodium Chloride 250 ML 265 MG IV (03:19)
[2023-10-07 03:28] VITALS: BP 128/66; PULSE 60; RESP 18; TEMP 36; O2SAT 93
[2023-10-07] MEDS: Piperacillin Sodium/Tazobactam 3.375 GM in 0.9 % Sodium Chloride 50 ML IV ×2 (05:05)
[2023-10-07] MEDS: Omeprazole 20 MG CAPSULE.DR PO (05:44)
[2023-10-07 06:59] LABS: Hematocrit 24.4 % (37.0-47.0); Hemoglobin 8.3 g/dl (12.0-16.0); Mean Corpuscular Hemoglobin 28.8 pg (27.0-33.0); Mean Corpuscular Volume 84.7 fL (80.0-98.0); Mean Platelet Volume 9.6 fL (9.4-12.3); NRBC Pct Auto 0.7 /100WBC (0.0-0.2); Red Blood Count 2.88 X10*6/uL (4.20-5.50); Red Cell Distribution Width 14.6 % (11.0-16.0); White Blood Count 9.5 X10*3/uL (4.8-10.8)
[2023-10-07 07:04] LABS: Platelet Count 25 X10*3/uL (160-400)
[2023-10-07 07:21] LABS: Anion Gap 11 (12-20); Blood Urea Nitrogen 10 mg/dL (9-16); Calcium 8.1 mg/dL (8.4-10.2); Carbon Dioxide 27 mmol/L (22-29); Chloride 105 mmol/L (96-108); Creatinine Clr Calc Pharmacy 57.5; Estimated Glomerular Filt Rate > 60; Glucose Random 89 mg/dL (60-115); Potassium 2.4 mmol/L (3.3-5.1); Sodium 141 mmol/L (135-145)
[2023-10-07 07:41] VITALS: BP 145/73; PULSE 82; RESP 18; TEMP 36.7; O2SAT 94
[2023-10-07] MEDS: cefuroxime axetiL 250 MG TABLET PO ×2 (07:52→18:53)
[2023-10-07] MEDS: Potassium Chloride Packet 20 MEQ PACKET 40 MEQ PO (07:52)
[2023-10-07] MEDS: Potassium Chloride/H20 10 MEQ/100 ML PIGGYBACK 100 MEQ IV ×2 (07:54→08:45)
[2023-10-07] MEDS: Morphine Sulfate 2 MG/ML CARTRIDGE IVPUSH ×5 (07:59→22:28)
--- NOTE | 2023-10-07 08:11 | P.PNHO-ONC_ITS ---
Medical Summary - Medical Summary Date of Service: 10/07/23 Chief complaint: Diarrhea Primary Care Provider: Sarthak Person MD Medical Summary: She was admitted for weakness and FTT.She says she is feeling better. Interval History Interval history: Sarah Medina is a 63 year old lady, with history of IVDA, history of hepatitis-C, recent admission to [facility] from 08/23-09/04 where she was diagnosed with small cell lung cancer with post obstructive pneumonia and SIADH. She had PET scan showing L and R supraclavicular node, paratracheal /mediastinal. negative brain MRI. She presented to the ED yesterday, for evaluation of retrostrernal non radiating chest pain and nausea/vomiting diarrhea that started 2 days ago, started chemo on friday 09/22. She also had productive cough and shortness of breath. No weight gain or orthopnea. Denies anorexia, has been eating and drinking without difficult. Endorses significant anxiety. She feels weak and a bit discouraged because of diarrhea. No nausea, fever or chills. No abdominal discomfort. 2 Review of Systems - Neurologic Reports no additional neurologic complaints, Denies focal weakness, Reports numbness, Reports weakness PMFSH Medical History: Medical History (Last Reviewed 10/05/23 @ 16:31 by Shawna Mistry MD) Abnormal CT scan, chest Allergic rhinitis Anxiety Benign essential hypertension Bronchitis Cervical spondylosis COPD (chronic obstructive pulmonary disease) Early satiety Endocarditis of mitral valve Onset Date: ~11/2017 Facet arthritis of lumbar region GERD (gastroesophageal reflux disease) History of hepatitis C IV drug user Lung mass Mass of right lung MDD (major depressive disorder), recurrent episode, moderate Mitral regurgitation Mitral valve prolapse Nicotine dependence, cigarettes, uncomplicated Nonrheumatic mitral (valve) insufficiency Osteopenia Onset Date: ~2011 Paresthesia of left leg Pulmonary nodule Pure hypercholesterolemia Rectal prolapse Small cell lung cancer Onset Date: ~08/2023 Vitamin D deficiency Functional capacity: wheelchair bound Family History: Family History (Last Reviewed 10/05/23 @ 16:31 by Shawna Mistry MD) Father Internal bleeding Mother Medical history unknown Family history: reviewed and not pertinent Surgical History: Surgical History (Last Reviewed 10/05/23 @ 16:31 by Shawna Mistry MD) History of bronchoscopy Onset Date: ~2023 History of colonoscopy Onset Date: ~2017 History of hysteroscopy Onset Date: ~2010 History of liver biopsy Onset Date: ~2009 History of partial colectomy Onset Date: ~2014 Social History: Social History (Last Reviewed 10/05/23 @ 16:31 by Shawna Mistry MD) Living Situation History: Household Members: None Housing: House Housing Other:: lives alone with her cat Malena Do you presently have visiting nurse or other home services: No Alcohol History Details: 1. How often do you have a drink containing alcohol?: a. Never AUDIT-C Alcohol total score: 0 Currently Displaying Signs/Symptoms of Alcohol Withdrawal: No Tobacco History: Patient Tobacco Use Status: Never used Tobacco Tobacco use type: Cigarette Cigarette Packs Per Day: 0.5 Years Smoked: 45 years (onset 15, 1/2-3/4ppd x 44yrs, 28pyh) Smoked in Last 30 Days: Yes e-Cigarette/Vaping Use: Never Used Patient Interested in Nicotine Replacement: Yes Patient Given Instructions on How to Stop Smoking: Yes Date Education Initiated: 09/28/23 Second Hand Smoke Exposure: Yes Substance Use History: Use of substances other than those prescribed or required for medical reasons : No Substance Use Type: Marijuana Currently Displaying Signs/Symptoms of Drug Intoxication Withdrawal: No Any prior treatment program specific to substance use: No Domestic Abuse History: Have you been hit, kicked, punched, or otherwise hurt by someone within the past year? If so, by whom?: No Do you feel safe in your current relationship?: No Is there a partner from a previous relationship who is making you feel unsafe now?: No Are you made to feel afraid or neglected: No Advance Directives: Advance Directives: Yes Advance Directives on File: Yes Advance Directives Date on File: 12/18/21 Homicidal Assessment: Do you have a plan to hurt others: No Plan Nutrition Assessment: Recently lost weight without trying: Unsure How much weight loss: Unsure Eating poorly because of decreased appetite: Yes Nutrition screen score: 5 Nutrition Risks: No Nutritional Risk Patient : No : No Poor oral hygiene: No Occupation Assessmet: service: No Current occupational status: unemployed Sex/Gender Assessment: Sexual orientation: Straight/Heterosexual Gender identity: Female Home Medications and Allergies Current Medications: Current Medications Acetaminophen (Acetaminophen 325 Mg Tablet) 650 mg PO Q6H PRN PRN Reason: Pain, Mild (Pain Scale 1-3), fever or headache Last Admin: 10/07/23 02:38 Dose: 650 mg Albuterol Sulfate (Albuterol Sulfate 90 Mcg 8 Gm Inhaler) 1 puff INHALE Q6H PRN PRN Reason: shortness of breath or wheezing Budesonide (Budesonide 180 Mcg Aer.Pow.Ba) 2 puff INHALE RBID [facility] Last Admin: 10/06/23 20:24 Dose: 2 puff Calcium Carbonate (Calcium Carbonate 750 Mg Tab.Chew) 750 mg PO Q4H PRN PRN Reason: Heartburn Last Admin: 09/29/23 18:08 Dose: 750 mg Cefuroxime Axetil (Cefuroxime Axetil 250 Mg Tablet) 250 mg PO Q12H [facility] Last Admin: 10/07/23 07:52 Dose: 250 mg Clonazepam (Clonazepam 0.5 Mg Tablet) 0.5 mg PO BID [facility] Last Admin: 10/06/23 20:33 Dose: 0.5 mg Cyclobenzaprine HCl (Cyclobenzaprine Hcl 5 Mg Tablet) 5 mg PO BID [facility] Last Admin: 10/06/23 20:33 Dose: 5 mg Doxycycline Monohydrate (Doxycycline Monohydrate 100 Mg Capsule) 100 mg PO Q12H [facility] Escitalopram Oxalate (Escitalopram Oxalate 20 Mg Tablet) 20 mg PO DAILY [facility] Last Admin: 09/29/23 08:13 Dose: 20 mg Fluticasone Propionate (Fluticasone Propionate Nasal 16 Gm [place]) 1 spray NOSTRIL-B DAILY [facility] Last Admin: 10/06/23 14:34 Dose: 1 spray Guaifenesin/Dextromethorphan (Guaifenesin Dm 100/10/5 Ml 5 Ml Syrup) 10 ml PO TID PRN PRN Reason: cough Heparin Sodium (Porcine) (Heparin Sodium,Porcine 5,000 Unit/Ml Vial) 5,000 unit SUBCUT Q12H [facility] Last Admin: 10/03/23 07:41 Dose: 5,000 unit Hydroxyzine HCl (Hydroxyzine Hcl 50 Mg Tablet) 50 mg PO BEDTIME [facility] Last Admin: 10/06/23 20:33 Dose: 50 mg Potassium Chloride (Potassium Chloride/H20) 10 meq in 100 mls @ 100 mls/hr IV Q1H [facility] Stop: 10/07/23 09:29 Last Admin: 10/07/23 07:54 Dose: 100 mls/hr Losartan Potassium (Losartan Potassium 25 Mg Tablet) 25 mg PO DAILY@0900 [facility]; Protocol Last Admin: 09/29/23 08:12 Dose: 25 mg Magnesium Hydroxide (Milk Of Magnesia 30 Ml Oral.Susp) 30 ml PO DAILY PRN PRN Reason: Constipation Melatonin (Melatonin 3 Mg Tablet) 6 mg PO BEDTIME PRN PRN Reason: Insomnia Last Admin: 09/30/23 19:58 Dose: 6 mg Metoclopramide HCl (Metoclopramide Hcl 5 Mg Tablet) 5 mg PO TID [facility] Last Admin: 10/06/23 20:33 Dose: 5 mg Metoprolol Succinate (Metoprolol Succinate Er 50 Mg Tab.Er.24h) 50 mg PO DAILY [facility]; Protocol Last Admin: 10/06/23 09:12 Dose: 50 mg Mirtazapine (Mirtazapine 30 Mg Tablet) 30 mg PO BEDTIME [facility] Last Admin: 10/06/23 20:33 Dose: 30 mg Morphine Sulfate (Morphine Sulfate 2 Mg/Ml Cartridge) 2 mg IVPUSH Q3H PRN; Protocol PRN Reason: Pain, Severe (Pain Scale 7-10) Last Admin: 10/07/23 07:59 Dose: 2 mg Nicotine (Nicotine 14 Mg Patch.Td24) 14 mg TRANSDERMA Q24H [facility] Last Admin: 10/06/23 16:28 Dose: 14 mg Non-Formulary Medication (Alosetron) 1 mg PO DAILY@0900 [facility] Omeprazole (Omeprazole 20 Mg Capsule.Dr) 20 mg PO DAILY@0630 [facility] Last Admin: 10/07/23 05:44 Dose: 20 mg Ondansetron HCl (Ondansetron Hcl 4 Mg/2 Ml Vial) 4 mg IVPUSH Q8H PRN PRN Reason: Nausea and Vomiting Last Admin: 10/04/23 16:35 Dose: 4 mg Oxycodone HCl (Oxycodone Hcl Immed Release 5 Mg Tablet) 5 mg PO Q4H PRN PRN Reason: Pain, Severe (Pain Scale 7-10) Pharmacy Consult (Consult Rx Vancomycin Dosing) 1 each MISCELLANE DAILY PRN PRN Reason: Consult order Potassium Chloride (Potassium Chloride Packet 20 Meq Packet) 40 meq PO Q2H [facility] Stop: 10/07/23 09:31 Last Admin: 10/07/23 07:52 Dose: 40 meq Prochlorperazine Edisylate (Prochlorperazine Edisylate 10 Mg/2 Ml Vial) 5 mg IVPUSH ONCE PRN PRN Reason: Nausea Sodium Chloride (0.9 % Sodium Chloride Flush 3 Ml Syringe) 3 ml IVFLUSH QSHIFT [facility] Last Admin: 10/06/23 20:34 Dose: 3 ml Sodium Chloride (Sodium Chloride Tab 1 Gm Tablet) 1 gm PO TID [facility] Last Admin: 10/06/23 20:33 Dose: 1 gm Sucralfate (Sucralfate 1 Gm Tablet) 4 gm PO DAILY@1200 [facility] Last Admin: 10/06/23 13:20 Dose: 4 gm Tiotropium [place] (Tiotropium [place] 2.5 Mcg 1 Puff/2.5 Mcg Mist.Inhal) 2 puff INHALE RDAILY [facility] Last Admin: 10/06/23 07:49 Dose: 2 puff Tolterodine Tartrate (Tolterodine Tartrate [place] 4 Mg Cap.Er.24h) 4 mg PO DAILY@09 [facility] Last Admin: 10/06/23 09:12 Dose: 4 mg Vitamin D (Cholecalciferol (Vitamin D3) 25 Mcg Tablet) 50 mcg PO DAILY@09 [facility] Last Admin: 10/06/23 09:13 Dose: 50 mcg Home Medications ?Medication ?Instructions ?Recorded ?Confirmed ?Type alosetron 0.5 mg tablet 1 mg PO DAILY@0907/22/23 09/28/23 History cholecalciferol (vitamin D3) 50 50 mcg PO DAILY@89907/22/23 09/28/23 History mcg (2,000 unit) capsule pantoprazole 40 mg tablet,delayed 40 mg PO DAILY@0607/22/23 09/28/23 History release solifenacin 10 mg tablet 10 mg PO DAILY@89907/22/23 09/28/23 History tiotropium bromide 18 mcg capsule 1 cap inhalation DAILY@09 copd 07/22/23 09/28/23 History with inhalation device (Spiriva with HandiHaler) sucralfate 1 gram tablet (Carafate) 4 g PO DAILY@1200 07/25/23 09/28/23 History budesonide 180 mcg/actuation 2 inh inhalation BID 09/28/23 09/28/23 History breath activated powder inhaler (Pulmicort Flexhaler) lorazepam 1 mg tablet 1 mg PO BID 09/28/23 09/28/23 History oxycodone 5 mg tablet 5 - 10 mg PO DAILY PRN pain 09/28/23 09/28/23 History Allergies Allergy/AdvReac Type Severity Reaction Status Date / Time No Known Allergies Allergy Unknown unknown Verified 09/28/23 09:37 [NO KNOWN ALLERGIES] Exam Vital signs: Vital Signs Temp 98.1 F 10/07/23 07:41 Pulse 82 10/07/23 07:41 Resp 18 10/07/23 07:41 BP 145/73 H 10/07/23 07:41 Pulse Ox 94 10/07/23 07:41 O2 Del Method Nasal Cannula 10/07/23 07:41 O2 Flow Rate 2 10/07/23 07:41 Intake & Output 10/06/23 10/07/23 10/07/23 18:59 06:59 18:59 Intake Total 845 / 1450 605 / 1450 Balance 845 / 1450 605 / 1450 Intake: Intake, Oral Amount 480 / 720 240 / 720 Intake, IV Amount 365 / 730 365 / 730 Piperacillin Sodium/Tazobactam 100 / 200 100 / 200 3.375 gm In 0.9 % Sodium Chloride 50 ml @ 100 mls/hr IV Q6H [facility] Rx#:[id number] vancomycin HCL 750 mg In 0.9 % 265 / 530 265 / 530 Sodium Chloride 250 ml @ 265 mls/hr IV Q12H [facility] Rx#: [id number] Other: Breakfast % Eaten 75% Lunch % Eaten 75% Dinner % Eaten 50% Eating (Feeding) Ability Independent Independent Number of Unmeasured Voids 2 1 Number of Bowel Movements 0 Urine Bathroom Bathroom Urine Color Tea Yellow Last Bowel Movement 10/06/23 Weight 59.5 kg BMI result Body Mass Index 24.0 - Constitutional Present: no acute distress, mild distress - Routine HEENT Exam Head: Present: atraumatic, normal inspection, normocephalic - Routine Neck Exam Present: full ROM, lymphadenopathy - Routine Respiratory Exam Present: decreased breath sounds - Routine Cardiovascular Exam Cardiovascular: Present: RRR, S1, S2 - Routine Abdominal Exam Present: soft, nontender - Routine Extremities Exam Present: full ROM, nontender - Routine Skin Exam Present: intact - Routine Neurological Exam Present: alert, oriented X3 Data - Labs CBC & Chem 7: 10/07/23 05:34 10/07/23 05:34 - Imaging Radiologist's impression: ITS Impressions Chest X-Ray 09/28/23 10:02 IMPRESSION: Right upper lobe mass with partial right upper lobe collapse/consolidation. There may be mild improvement when compared to the recent study. Chest CTA 09/28/23 12:07 IMPRESSION: 1. No evidence of pulmonary emboli. 2. Right suprahilar mass with associated adenopathy and collapse of the right upper lobe. Mediastinal adenopathy appears slightly improved. VTE: negative. Chest X-Ray 10/04/23 16:00 IMPRESSION: 1. Improved aeration to the right upper lobe with resolution of previously seen atelectasis. Residual area of thickening around the right upper lobe bronchus corresponding to the patient's known mass. 2. Streaky atelectasis at the left lung base. Assessment and Plan Patient Active problem list reviewed?: Yes (1) Small cell lung cancer Problem details: As noted above her recent bronchoscopic exam and bronchial biopsy are positive small cell carcinoma. Status: Acute Assessment and plan: 1. 63 year old lady with recent diagnosis of Small cell Lung Cancer, involving right hilum in August 2023. CT chest with contrast revealed a right suprahilar mass measuring 5.8 x 4.1 cm encasing and occluding right upper lobe bronchus with complete collapse of right upper lobe. This is a small stable left upper lobe 1 cm pulmonary nodule, enlarged mediastinal lymph nodes with 1.4 x 2.7 x 2.4 cm pretracheal lymph node. No pleural effusion or axillary adenopathy. Adrenals normal, no evidence of osseous metastatic disease. She had a CT head without contrast which was negative for metastasis. Clinical stage T3 N2, Stage IIIB LDH mildly elevated at 274, CEA 12.1 NG/ mL. She had presented with severe hyponatremia with sodium of 116 millimole per L secondary to SIADH/lung cancer. PET scan performed at [facility] on 09/11/2023 showed FDG avid right hilar/suprahilar mass with SUV 12.6, FDG avid mediastinal and right hilar lymphadenopathy. Left supraclavicular lymph node SUV max 4.2, right supraclavicular lymph node SUV max 2, right paratracheal SUV max 9.4, anterior mediastinal SUV max 4.8. Nonspecific focal activity in anal canal SUV 15.3. Patient reports that she has had surgery for rectal prolapse and continues to have intermittent rectal bleeding which could account for the uptake in the anal canal. Brain MRI performed 09/10/2023 showed no evidence of intracranial metastatic disease. MediPort was placed for administration of chemotherapy on 09/17. She was started on chemotherapy on 09/22. 2. Hyponatremia secondary to SIADH. She is on sodium bicarbonate tablets. She was unable to tolerate a urea. She is now on fluid restriction as well. 3. Pancytopenia secondary to recent chemotherapy. She received 4 doses of Granix during this admission. She received 2 units PRBC. She continues to have thrombocytopenia related to chemotherapy as well as infection and antibiotic use. 4. Klebsiella UTI, she was on ceftriaxone. Blood cultures negative. Antibiotics are being de- escalated. 5. Diarrhea secondary to antibiotics. C diff negative. Hypokalemia secondary to diarrhea, being repleted. - Time Spent With Patient Time Spent with Patient (in minutes): 15 Additional Coding: - Additional E/M codes Complex E/M visit Add On: CPT G2211
[2023-10-07] MEDS: Metoprolol Succinate ER 50 MG TAB.ER.24H PO (08:20)
[2023-10-07] MEDS: Doxycycline Monohydrate 100 MG CAPSULE PO ×2 (08:20→18:53)
[2023-10-07] MEDS: Tolterodine Tartrate LA 4 MG CAP.ER.24H PO (08:20)
[2023-10-07] MEDS: clonazePAM 0.5 MG TABLET PO ×2 (08:20→21:22)
[2023-10-07] MEDS: Cholecalciferol (Vitamin D3) 25 MCG TABLET 50 MCG PO (08:20)
[2023-10-07] MEDS: Cyclobenzaprine HCl 5 MG TABLET PO ×2 (08:20→21:22)
[2023-10-07] MEDS: Metoclopramide HCl 5 MG TABLET PO ×3 (08:20→21:22)
[2023-10-07] MEDS: 0.9 % Sodium Chloride Flush 3 ML SYRINGE IVFLUSH ×3 (08:21→21:23)
[2023-10-07] MEDS: Sodium Chloride Tab 1 GM TABLET PO ×3 (08:21→21:21)
[2023-10-07] MEDS: Fluticasone Propionate Nasal 16 GM SPRAY 1 SPRAY NOSTRIL-B (08:53)
[2023-10-07 09:57] LABS: CDiff Gene PCR NEGATIVE (Negative)
[2023-10-07] MEDS: Potassium Chloride ER 20 MEQ TAB.ER.PRT 40 MEQ PO (10:33)
--- NOTE | 2023-10-07 10:43 | MHC.CM.PN ---
Addendum entered by Alejandra Cerna RN 10/07/23 14:24: [facility] unable to accept patient. [facility] will provide services. Original Note: Per MD rounds patient not medically cleared for dc at this time, potentially later today vs tomorrow. [facility] updated. CM will continue to follow.
--- NOTE | 2023-10-07 10:54 | P.PNIM_ITS ---
Subjective Subjective Date of Service: 10/07/23 Interval History: Seen and evaluated this morning Neutropenia resolved Hb of 8.3 Feels weak with low potassium of 2.4 no other overnight events Review of Systems Review of Systems: Yes all other systems are reviewed and are negative Physical Exam 2 Vital Signs: Vital Signs: Last Vital Signs Temp 98.1 F 10/07/23 07:41 Pulse 82 10/07/23 07:41 Resp 18 10/07/23 07:41 BP 145/73 H 10/07/23 07:41 Pulse Ox 94 10/07/23 07:41 O2 Del Method Nasal Cannula 10/07/23 07:41 O2 Flow Rate 2 10/07/23 07:41 BMI result Body Mass Index 24.0 Const: Other: Constitutional : Awake, interactive, weak and frail looking, anxious Neck : Normal inspection, Supple Cardiovascular : RRR, no JVP, no lower extremity edema Respiratory : good bilateral air entry, no crackles, wheezes or rhonchi Gastrointestinal: soft, lax, Normal bowel sounds, Non tender Skin : Warm, Dry Neurological : Alert & oriented x3, No focal deficit Objective Data Active Medications Acetaminophen (Acetaminophen 325 Mg Tablet) 650 mg PO Q6H PRN PRN Reason: Pain, Mild (Pain Scale 1-3), fever or headache Last Admin: 10/07/23 02:38 Dose: 650 mg Documented By: DILAN Albuterol Sulfate (Albuterol Sulfate 90 Mcg 8 Gm Inhaler) 1 puff INHALE Q6H PRN PRN Reason: shortness of breath or wheezing Budesonide (Budesonide 180 Mcg Aer.Pow.Ba) 2 puff INHALE RBID [facility] Last Admin: 10/07/23 08:17 Dose: Not Given Documented By: JEN Non-Admin Reason: Patient Refused Calcium Carbonate (Calcium Carbonate 750 Mg Tab.Chew) 750 mg PO Q4H PRN PRN Reason: Heartburn Last Admin: 09/29/23 18:08 Dose: 750 mg Documented By: JOSE Cefuroxime Axetil (Cefuroxime Axetil 250 Mg Tablet) 250 mg PO Q12H [facility] Last Admin: 10/07/23 07:52 Dose: 250 mg Documented By: DAVID Clonazepam (Clonazepam 0.5 Mg Tablet) 0.5 mg PO BID [facility] Last Admin: 10/07/23 08:20 Dose: 0.5 mg Documented By: DAVID Cyclobenzaprine HCl (Cyclobenzaprine Hcl 5 Mg Tablet) 5 mg PO BID [facility] Last Admin: 10/07/23 08:20 Dose: 5 mg Documented By: DAVID Doxycycline Monohydrate (Doxycycline Monohydrate 100 Mg Capsule) 100 mg PO Q12H [facility] Last Admin: 10/07/23 08:20 Dose: 100 mg Documented By: DAVID Escitalopram Oxalate (Escitalopram Oxalate 20 Mg Tablet) 20 mg PO DAILY [facility] Last Admin: 09/29/23 08:13 Dose: 20 mg Documented By: JOSE Fluticasone Propionate (Fluticasone Propionate Nasal 16 Gm [place]) 1 spray NOSTRIL-B DAILY [facility] Last Admin: 10/07/23 08:53 Dose: 1 spray Documented By: DAVID Guaifenesin/Dextromethorphan (Guaifenesin Dm 100/10/5 Ml 5 Ml Syrup) 10 ml PO TID PRN PRN Reason: cough Heparin Sodium (Porcine) (Heparin Sodium,Porcine 5,000 Unit/Ml Vial) 5,000 unit SUBCUT Q12H [facility] Last Admin: 10/03/23 07:41 Dose: 5,000 unit Documented By: DELMIS Hydroxyzine HCl (Hydroxyzine Hcl 50 Mg Tablet) 50 mg PO BEDTIME [facility] Last Admin: 10/06/23 20:33 Dose: 50 mg Documented By: DILAN Losartan Potassium (Losartan Potassium 25 Mg Tablet) 25 mg PO DAILY@0900 [facility]; Protocol Last Admin: 09/29/23 08:12 Dose: 25 mg Documented By: JOSE Magnesium Hydroxide (Milk Of Magnesia 30 Ml Oral.Susp) 30 ml PO DAILY PRN PRN Reason: Constipation Melatonin (Melatonin 3 Mg Tablet) 6 mg PO BEDTIME PRN PRN Reason: Insomnia Last Admin: 09/30/23 19:58 Dose: 6 mg Documented By: GLENIS Metoclopramide HCl (Metoclopramide Hcl 5 Mg Tablet) 5 mg PO TID [facility] Last Admin: 10/07/23 08:20 Dose: 5 mg Documented By: DAVID Metoprolol Succinate (Metoprolol Succinate Er 50 Mg Tab.Er.24h) 50 mg PO DAILY [facility]; Protocol Last Admin: 10/07/23 08:20 Dose: 50 mg Documented By: DAVID Mirtazapine (Mirtazapine 30 Mg Tablet) 30 mg PO BEDTIME [facility] Last Admin: 10/06/23 20:33 Dose: 30 mg Documented By: DILAN Morphine Sulfate (Morphine Sulfate 2 Mg/Ml Cartridge) 2 mg IVPUSH Q3H PRN; Protocol PRN Reason: Pain, Severe (Pain Scale 7-10) Last Admin: 10/07/23 07:59 Dose: 2 mg Documented By: DAVID Nicotine (Nicotine 14 Mg Patch.Td24) 14 mg TRANSDERMA Q24H [facility] Last Admin: 10/06/23 16:28 Dose: 14 mg Documented By: MANJU Non-Formulary Medication (Alosetron) 1 mg PO DAILY@0900 [facility] Omeprazole (Omeprazole 20 Mg Capsule.Dr) 20 mg PO DAILY@0630 [facility] Last Admin: 10/07/23 05:44 Dose: 20 mg Documented By: DILAN Ondansetron HCl (Ondansetron Hcl 4 Mg/2 Ml Vial) 4 mg IVPUSH Q8H PRN PRN Reason: Nausea and Vomiting Last Admin: 10/04/23 16:35 Dose: 4 mg Documented By: KARTHIK Oxycodone HCl (Oxycodone Hcl Immed Release 5 Mg Tablet) 5 mg PO Q4H PRN PRN Reason: Pain, Severe (Pain Scale 7-10) Prochlorperazine Edisylate (Prochlorperazine Edisylate 10 Mg/2 Ml Vial) 5 mg IVPUSH ONCE PRN PRN Reason: Nausea Sodium Chloride (0.9 % Sodium Chloride Flush 3 Ml Syringe) 3 ml IVFLUSH QSHIFT [facility] Last Admin: 10/07/23 08:21 Dose: 3 ml Documented By: DAVID Sodium Chloride (Sodium Chloride Tab 1 Gm Tablet) 1 gm PO TID [facility] Last Admin: 10/07/23 08:21 Dose: 1 gm Documented By: DAVID Sucralfate (Sucralfate 1 Gm Tablet) 4 gm PO DAILY@1200 [facility] Last Admin: 10/06/23 13:20 Dose: 4 gm Documented By: MANJU Tiotropium [place] (Tiotropium [place] 2.5 Mcg 1 Puff/2.5 Mcg Mist.Inhal) 2 puff INHALE RDAILY [facility] Last Admin: 10/07/23 08:17 Dose: Not Given Documented By: JEN Non-Admin Reason: Patient Refused Tolterodine Tartrate (Tolterodine Tartrate [place] 4 Mg Cap.Er.24h) 4 mg PO DAILY@09 [facility] Last Admin: 10/07/23 08:20 Dose: 4 mg Documented By: DAVID Vitamin D (Cholecalciferol (Vitamin D3) 25 Mcg Tablet) 50 mcg PO DAILY@09 [facility] Last Admin: 10/07/23 08:20 Dose: 50 mcg Documented By: DAVID Labs 10/07/23 05:34 10/07/23 05:34 Labs: Laboratory Results - last 24 hr 10/06/23 10/07/23 10/07/23 15:06 05:34 Unknown MCV 84.7 MCH 28.8 MCHC 34.0 RDW 14.6 Plt Count 25 L MPV 9.6 Absolute Nucleated RBC 0.070 H Nucleated RBC % (auto) 0.7 H Anion Gap 11 L Estim Creat Clear Calc 57.5 Estimated GFR > 60 Random Glucose 89 Calcium 8.1 L Random Vancomycin 14.8 L C. difficile Tox B Gene NEGATIVE Microbiology Microbiology Results: Microbiology 10/04/23 15:42 Blood Culture - Preliminary Blood - Venous No growth after 48 hours. 10/04/23 15:42 Blood Culture - Preliminary Blood - Venous No growth after 48 hours. Assessment and Plan (1) Pancytopenia: Status: Acute (2) Adjustment disorder with mixed anxiety and depressed mood: Status: Acute (3) Acute UTI: Status: Acute (4) Nausea & vomiting: Status: Acute (5) Hypomagnesemia: Status: Acute (6) Hyponatremia: Status: Acute Plan 62F PMH COPD, IVDA, hepatitis-C, hypertension, hyperlipidemia, anemia, GERD, IBS, gastroparesis, mood disorder, 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 presented with nausea and vomiting Acute Pancytopenia with symptomatic anemia and neutropenia secondary to recent chemotherapy Neutropenia resolved transfuse 2 units PRBCs , Hb 8.3 Oncology following received Filgrastim x4 dc neutropenic precautions Neutropenic fever not convincing fever CXR suggesting possible pneumonia, to recheck negative cultures DC IV Abx of Vancomycin and Zosyn deescalate to PO Doxy for now ID input appreciated Acute hypokalemia K 2.4 this morning, no clear cause for this sudden drop give replacement and repeat Monitor overnight acute diarrhea likely antibiotics related, C.Diff negative. can use imodium Acute on chronic hyponatremia Due to 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 improved to normal Continue fluid restriction, Continue sodium tablets , wean to 1 mg tid Nephrology following Monitor sodium levels Nausea vomiting due to chemotherapy Improved , Reglan atc PRN Zofran advanced diet Acute hypokalemia resolved Anxiety, depression Psychiatry input appreciated Acute hypomagnesemia Give IV Replacement Acute UTI Klebsiella in urine on Abx since (09/28) Small-cell lung cancer Follow up Oncology COPD Continue inhalers Hypertension Losartan, metoprolol GERD PPI DVT prophylaxis Hold heparin subQ for low PLT Full code reason for continued hospitalization: Hypokalemia needs correction, diarrhea needs to resolve Quality Stroke Does the patient have a stroke diagnosis?: No VTE Prior VTE?: No VTE Risk Level:: Medical - moderate - high VTE Device Contraindication: Treatment Not Indicated VTE Drug Contraindication: N/A - Med Ordered
[2023-10-07] MEDS: Loperamide HCl 2 MG CAPSULE 4 MG PO (11:06)
--- NOTE | 2023-10-07 12:03 | P.PNNP_ITS ---
Subjective Subjective Date of Service: 10/07/23 Interval history: Events noted Diarrhea Physical Exam 2 Vital Signs: Vital Signs: Last Vital Signs Temp 98.1 F 10/07/23 07:41 Pulse 82 10/07/23 07:41 Resp 18 10/07/23 07:41 BP 145/73 H 10/07/23 07:41 Pulse Ox 94 10/07/23 07:41 O2 Del Method Nasal Cannula 10/07/23 07:41 O2 Flow Rate 2 10/07/23 07:41 BMI result Body Mass Index 24.0 Objective Data Labs 10/07/23 05:34 10/07/23 05:34 Labs: Laboratory Results - last 24 hr 10/06/23 10/07/23 10/07/23 15:06 05:34 Unknown WBC 9.5 RBC 2.88 L Hgb 8.3 L Hct 24.4 L MCV 84.7 MCH 28.8 MCHC 34.0 RDW 14.6 Plt Count 25 L MPV 9.6 Absolute Nucleated RBC 0.070 H Nucleated RBC % (auto) 0.7 H Sodium 141 Potassium 2.4 L* D Chloride 105 Carbon Dioxide 27 Anion Gap 11 L BUN 10 Creatinine 0.78 Estim Creat Clear Calc 57.5 Estimated GFR > 60 Random Glucose 89 Calcium 8.1 L Random Vancomycin 14.8 L C. difficile Tox B Gene NEGATIVE Microbiology Microbiology Results: Microbiology 10/04/23 15:42 Blood - Venous Blood Culture - Preliminary No growth after 48 hours. 10/04/23 15:42 Blood - Venous Blood Culture - Preliminary No growth after 48 hours. 09/28/23 10:58 Blood - Venous Blood Culture - Final No growth after 5 days. 09/28/23 10:44 Blood - Venous Blood Culture - Final No growth after 5 days. 09/28/23 Unknown Urine clean catch - Urine garcia top Urine Culture - Final Klebsiella pneumoniae Procedures Date of Service Date of Service: 10/07/23 Assessment & Plan Assessment and plan (1) Hyponatremia: Status: Acute Plan Hyponatremia due to excess ADH Could not tolerate oral urea Sodium has been stable and staying about 140. Currently on oral sodium chloride tablets 2 g t.i.d.. Tapered sodium chloride tablets to 1 g t.i.d. and watch serum sodium.(10/06/23) Needs p.o. free water restriction. replace K Monitor serum sodium Time Spent With Patient Time: Total time managing care of this patient today ____ minutes. Progress Note: Quality Stroke Does the patient have a stroke diagnosis?: No
[2023-10-07 13:20] LABS: Anion Gap 9 (12-20); Blood Urea Nitrogen 9 mg/dL (9-16); Calcium 8.5 mg/dL (8.4-10.2); Carbon Dioxide 29 mmol/L (22-29); Chloride 108 mmol/L (96-108); Creatinine Clr Calc Pharmacy 52.2; Estimated Glomerular Filt Rate > 60; Glucose Random 91 mg/dL (60-115); Potassium 3.8 mmol/L (3.3-5.1); Sodium 142 mmol/L (135-145)
[2023-10-07] MEDS: Sucralfate 1 GM TABLET 4 GM PO (13:23)
[2023-10-07 15:27] VITALS: BP 149/67; PULSE 89; RESP 16; TEMP 36.8; O2SAT 95
[2023-10-07] MEDS: Nicotine 14 MG PATCH.TD24 TRANSDERMA (15:37)
[2023-10-07] MEDS: Loperamide HCl 2 MG CAPSULE PO (15:40)
[2023-10-07 19:19] VITALS: BP 164/76; PULSE 92; RESP 16; TEMP 36.3; O2SAT 93
[2023-10-07] MEDS: Budesonide 180 MCG AER.POW.BA 2 PUFF INHALE (20:05)
[2023-10-07 20:08] VITALS: PULSE 92; RESP 16; O2SAT 99
[2023-10-07] MEDS: Mirtazapine 30 MG TABLET PO (21:22)
[2023-10-07] MEDS: hydrOXYzine HCL 50 MG TABLET PO (21:22)
[2023-10-08] VITALS (7 sets, daily range): BP systolic 138–157; BP diastolic 77–87; PULSE 82–99; RESP 14–18; TEMP 36.2–36.8; O2SAT 92–96
[2023-10-08] MEDS: Morphine Sulfate 2 MG/ML CARTRIDGE IVPUSH ×4 (05:39→14:52)
[2023-10-08] MEDS: Omeprazole 20 MG CAPSULE.DR PO (05:40)
[2023-10-08 06:16] LABS: Hematocrit 26.1 % (37.0-47.0); Mean Corpuscular HGB Conc 34.5 g/dl (31.0-35.0); Mean Corpuscular Hemoglobin 28.9 pg (27.0-33.0); Mean Corpuscular Volume 83.9 fL (80.0-98.0); Mean Platelet Volume 10.9 fL (9.4-12.3); NRBC Pct Auto 0.8 /100WBC (0.0-0.2); Red Blood Count 3.11 X10*6/uL (4.20-5.50); Red Cell Distribution Width 15.3 % (11.0-16.0); White Blood Count 18.1 X10*3/uL (4.8-10.8)
[2023-10-08 06:17] LABS: Platelet Count 35 X10*3/uL (160-400)
[2023-10-08 06:28] LABS: Anion Gap 13 (12-20); Blood Urea Nitrogen 7 mg/dL (9-16); Calcium 8.8 mg/dL (8.4-10.2); Carbon Dioxide 27 mmol/L (22-29); Chloride 107 mmol/L (96-108); Creatinine Clr Calc Pharmacy 53.5; Estimated Glomerular Filt Rate > 60; Glucose Random 89 mg/dL (60-115); Potassium 3.2 mmol/L (3.3-5.1); Sodium 144 mmol/L (135-145)
[2023-10-08] MEDS: Tiotropium Bromide 2.5 mcg 1 PUFF/2.5 MCG MIST.INHAL 2 PUFF INHALE (07:39)
[2023-10-08] MEDS: Budesonide 180 MCG AER.POW.BA 2 PUFF INHALE ×2 (07:39→18:50)
[2023-10-08] MEDS: Fluticasone Propionate Nasal 16 GM SPRAY 1 SPRAY NOSTRIL-B (07:47)
[2023-10-08] MEDS: cefuroxime axetiL 250 MG TABLET PO ×2 (07:48→18:36)
[2023-10-08] MEDS: Cholecalciferol (Vitamin D3) 25 MCG TABLET 50 MCG PO (07:48)
[2023-10-08] MEDS: clonazePAM 0.5 MG TABLET PO ×2 (07:48→20:29)
[2023-10-08] MEDS: Metoclopramide HCl 5 MG TABLET PO ×3 (07:48→20:30)
[2023-10-08] MEDS: Doxycycline Monohydrate 100 MG CAPSULE PO ×2 (07:48→18:36)
[2023-10-08] MEDS: Cyclobenzaprine HCl 5 MG TABLET PO ×2 (07:48→20:30)
[2023-10-08] MEDS: Tolterodine Tartrate LA 4 MG CAP.ER.24H PO (07:48)
[2023-10-08] MEDS: Sodium Chloride Tab 1 GM TABLET PO ×3 (07:48→20:29)
[2023-10-08] MEDS: Metoprolol Succinate ER 50 MG TAB.ER.24H PO (07:49)
[2023-10-08] MEDS: 0.9 % Sodium Chloride Flush 3 ML SYRINGE IVFLUSH ×3 (07:49→20:33)
[2023-10-08] MEDS: Potassium Chloride ER 20 MEQ TAB.ER.PRT 60 MEQ PO (08:38)
[2023-10-08] MEDS: Loperamide HCl 2 MG CAPSULE PO ×2 (10:33→17:44)
[2023-10-08] MEDS: Sucralfate 1 GM TABLET 4 GM PO (11:38)
--- NOTE | 2023-10-08 12:50 | PC.NURSE ---
Attempted to check blood return on implanted chemotherapy port to left chest, this RN not able to get blood return with 2 attempts. When asked if previous nurses have been able to get blood return patient stated it has only been flushed a couple of times since admission and she does not recall getting positive blood return, Kecia VUONG made aware, no IR nurses available at this time
--- NOTE | 2023-10-08 14:28 | HO.PM.IMPN ---
Subjective Subjective Date of Service: 10/08/23 Interval History: Seen and examined this morning Follow-up for neutropenic fever No longer neutropenic, feeling better, still feeling tired Review of Systems Review of Systems: Yes all other systems are reviewed and are negative Constitutional Constitutional: Denies fever(s) Cardiovascular Cardiovascular: Denies chest pain Physical Exam Vital Signs: Vital Signs: Last Vital Signs Temp 98 F 10/08/23 07:09 Pulse 99 10/08/23 07:49 Resp 18 10/08/23 07:40 BP 152/80 H 10/08/23 07:49 Pulse Ox 96 10/08/23 07:09 O2 Del Method Nasal Cannula 10/08/23 07:09 O2 Flow Rate 2 10/08/23 07:09 BMI result Body Mass Index 24.0 Const: General: cooperative, comfortable, no acute distress, alert and awake Nutritional Appearance: average body habitus Orientation/consciousness: patient oriented x3 Resp: Effort & Inspection: normal respiratory effort, able to speak in complete sentences, no respiratory distress and no use of accessory muscles Cardio: Rate: regular rate GI: Inspection: No distended Palpation (GI): Soft to palpation Neuro: General: patient oriented x3, moves all extremities and CN's II-XI intact bilaterally Extrem: General: Yes no pedal edema Objective Data Active Medications Acetaminophen (Acetaminophen 325 Mg Tablet) 650 mg PO Q6H PRN PRN Reason: Pain, Mild (Pain Scale 1-3), fever or headache Last Admin: 10/07/23 02:38 Dose: 650 mg Documented By: DILAN Albuterol Sulfate (Albuterol Sulfate 90 Mcg 8 Gm Inhaler) 1 puff INHALE Q6H PRN PRN Reason: shortness of breath or wheezing Budesonide (Budesonide 180 Mcg Aer.Pow.Ba) 2 puff INHALE RBID [facility] Last Admin: 10/08/23 07:39 Dose: 2 puff Documented By: CECILIA Calcium Carbonate (Calcium Carbonate 750 Mg Tab.Chew) 750 mg PO Q4H PRN PRN Reason: Heartburn Last Admin: 09/29/23 18:08 Dose: 750 mg Documented By: JOSE Cefuroxime Axetil (Cefuroxime Axetil 250 Mg Tablet) 250 mg PO Q12H [facility] Last Admin: 07/04/24 07:48 Dose: 250 mg Documented By: VIJAYA Clonazepam (Clonazepam 0.5 Mg Tablet) 0.5 mg PO BID [facility] Last Admin: 10/08/23 07:48 Dose: 0.5 mg Documented By: VIJAYA Cyclobenzaprine HCl (Cyclobenzaprine Hcl 5 Mg Tablet) 5 mg PO BID [facility] Last Admin: 10/08/23 07:48 Dose: 5 mg Documented By: VIJAYA Doxycycline Monohydrate (Doxycycline Monohydrate 100 Mg Capsule) 100 mg PO Q12H [facility] Last Admin: 10/08/23 07:48 Dose: 100 mg Documented By: VIJAYA Escitalopram Oxalate (Escitalopram Oxalate 20 Mg Tablet) 20 mg PO DAILY [facility] Last Admin: 09/29/23 08:13 Dose: 20 mg Documented By: JOSE Fluticasone Propionate (Fluticasone Propionate Nasal 16 Gm [place]) 1 spray NOSTRIL-B DAILY [facility] Last Admin: 10/08/23 07:47 Dose: 1 spray Documented By: VIJAYA Guaifenesin/Dextromethorphan (Guaifenesin Dm 100/10/5 Ml 5 Ml Syrup) 10 ml PO TID PRN PRN Reason: cough Heparin Sodium (Porcine) (Heparin Sodium,Porcine 5,000 Unit/Ml Vial) 5,000 unit SUBCUT Q12H [facility] Last Admin: 10/03/23 07:41 Dose: 5,000 unit Documented By: DELMIS Hydroxyzine HCl (Hydroxyzine Hcl 50 Mg Tablet) 50 mg PO BEDTIME [facility] Last Admin: 10/07/23 21:22 Dose: 50 mg Documented By: ODRISGet Loperamide HCl (Loperamide Hcl 2 Mg Capsule) 2 mg PO Q4H PRN PRN Reason: Diarrhea Last Admin: 10/08/23 10:33 Dose: 2 mg Documented By: VIJAYA Losartan Potassium (Losartan Potassium 25 Mg Tablet) 25 mg PO DAILY@0900 [facility]; Protocol Last Admin: 09/29/23 08:12 Dose: 25 mg Documented By: JOSE Magnesium Hydroxide (Milk Of Magnesia 30 Ml Oral.Susp) 30 ml PO DAILY PRN PRN Reason: Constipation Melatonin (Melatonin 3 Mg Tablet) 6 mg PO BEDTIME PRN PRN Reason: Insomnia Last Admin: 09/30/23 19:58 Dose: 6 mg Documented By: GLENIS Metoclopramide HCl (Metoclopramide Hcl 5 Mg Tablet) 5 mg PO TID [facility] Last Admin: 10/08/23 07:48 Dose: 5 mg Documented By: VIJAYA Metoprolol Succinate (Metoprolol Succinate Er 50 Mg Tab.Er.24h) 50 mg PO DAILY [facility]; Protocol Last Admin: 10/08/23 07:49 Dose: 50 mg Documented By: VIJAYA Mirtazapine (Mirtazapine 30 Mg Tablet) 30 mg PO BEDTIME [facility] Last Admin: 10/07/23 21:22 Dose: 30 mg Documented By: DANUTA Morphine Sulfate (Morphine Sulfate 2 Mg/Ml Cartridge) 2 mg IVPUSH Q3H PRN; Protocol PRN Reason: Pain, Severe (Pain Scale 7-10) Last Admin: 10/08/23 11:39 Dose: 2 mg Documented By: VIJAYA Nicotine (Nicotine 14 Mg Patch.Td24) 14 mg TRANSDERMA Q24H [facility] Last Admin: 10/07/23 15:37 Dose: 14 mg Documented By: GENEVIEVE Non-Formulary Medication (Alosetron) 1 mg PO DAILY@0900 [facility] Omeprazole (Omeprazole 20 Mg Capsule.Dr) 20 mg PO DAILY@0630 [facility] Last Admin: 10/08/23 05:40 Dose: 20 mg Documented By: DANUTA Ondansetron HCl (Ondansetron Hcl 4 Mg/2 Ml Vial) 4 mg IVPUSH Q8H PRN PRN Reason: Nausea and Vomiting Last Admin: 10/04/23 16:35 Dose: 4 mg Documented By: KARTHIK Oxycodone HCl (Oxycodone Hcl Immed Release 5 Mg Tablet) 5 mg PO Q4H PRN PRN Reason: Pain, Severe (Pain Scale 7-10) Prochlorperazine Edisylate (Prochlorperazine Edisylate 10 Mg/2 Ml Vial) 5 mg IVPUSH ONCE PRN PRN Reason: Nausea Sodium Chloride (0.9 % Sodium Chloride Flush 3 Ml Syringe) 3 ml IVFLUSH QSHIFT [facility] Last Admin: 10/08/23 07:49 Dose: 3 ml Documented By: VIJAYA Sodium Chloride (Sodium Chloride Tab 1 Gm Tablet) 1 gm PO TID [facility] Last Admin: 10/08/23 07:48 Dose: 1 gm Documented By: VIJAYA Sucralfate (Sucralfate 1 Gm Tablet) 4 gm PO DAILY@1200 [facility] Last Admin: 10/08/23 11:38 Dose: 4 gm Documented By: VIJAYA Tiotropium [place] (Tiotropium [place] 2.5 Mcg 1 Puff/2.5 Mcg Mist.Inhal) 2 puff INHALE RDAILY [facility] Last Admin: 10/08/23 07:39 Dose: 2 puff Documented By: CECILIA Tolterodine Tartrate (Tolterodine Tartrate [place] 4 Mg Cap.Er.24h) 4 mg PO DAILY@0900 [facility] Last Admin: 10/08/23 07:48 Dose: 4 mg Documented By: VIJAYA Vitamin D (Cholecalciferol (Vitamin D3) 25 Mcg Tablet) 50 mcg PO DAILY@0900 [facility] Last Admin: 10/08/23 07:48 Dose: 50 mcg Documented By: VIJAYA Labs 10/08/23 05:21 10/08/23 05:21 Labs: Laboratory Results - last 24 hr 10/08/23 05:21 MCV 83.9 MCH 28.9 MCHC 34.5 RDW 15.3 Plt Count 35 L D MPV 10.9 Absolute Nucleated RBC 0.150 H Nucleated RBC % (auto) 0.8 H Anion Gap 13 Estim Creat Clear Calc 53.5 Estimated GFR > 60 Random Glucose 89 Calcium 8.8 Assessment and Plan (1) Pancytopenia: Status: Acute Plan 62F PMH COPD, IVDA, hepatitis-C, hypertension, hyperlipidemia, anemia, GERD, IBS, gastroparesis, mood disorder, 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 can use imodium Acute on chronic hyponatremia Due to 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 improved to normal Continue fluid restriction, Continue sodium tablets , wean to 1 mg tid Nephrology following sodium levels stable Nausea vomiting due to chemotherapy Improved , Reglan atc PRN Zofran advanced diet Anxiety, depression Psychiatry input appreciated Acute hypomagnesemia Give IV Replacement Acute UTI Klebsiella in urine on Abx since (09/28) Small-cell lung cancer Follow up Oncology wean IV pain medication continue oxycodone prn COPD Continue inhalers Hypertension Losartan, metoprolol GERD PPI DVT prophylaxis Hold heparin subQ for low PLT Full code reason for continued hospitalization: Hypokalemia needs correction, diarrhea needs to resolve Quality Stroke Does the patient have a stroke diagnosis?: No VTE Prior VTE?: No VTE Risk Level:: Medical - moderate - high VTE Device Contraindication: Treatment Not Indicated VTE Drug Contraindication: N/A - Med Ordered
[2023-10-08] MEDS: Nicotine 14 MG PATCH.TD24 TRANSDERMA (14:53)
[2023-10-08] MEDS: oxyCODONE HCl Immed Release 5 MG TABLET PO (17:41)
[2023-10-08] MEDS: hydrOXYzine HCL 50 MG TABLET PO (20:30)
[2023-10-08] MEDS: Mirtazapine 30 MG TABLET PO (20:30)
[2023-10-08] MEDS: Acetaminophen 325 MG TABLET 650 MG PO (22:32)
[2023-10-09 03:44] VITALS: BP 131/65; PULSE 66; RESP 18; TEMP 36.4; O2SAT 95
[2023-10-09] MEDS: Omeprazole 20 MG CAPSULE.DR PO (05:42)
[2023-10-09] MEDS: Fluticasone Propionate Nasal 16 GM SPRAY 1 SPRAY NOSTRIL-B (07:40)
[2023-10-09] MEDS: Acetaminophen 325 MG TABLET 650 MG PO (07:40)
[2023-10-09] MEDS: Cyclobenzaprine HCl 5 MG TABLET PO (07:41)
[2023-10-09] MEDS: Metoclopramide HCl 5 MG TABLET PO (07:41)
[2023-10-09] MEDS: clonazePAM 0.5 MG TABLET PO (07:41)
[2023-10-09] MEDS: Loperamide HCl 2 MG CAPSULE PO (07:41)
[2023-10-09] MEDS: Sodium Chloride Tab 1 GM TABLET PO (07:41)
[2023-10-09] MEDS: cefuroxime axetiL 250 MG TABLET PO (07:41)
[2023-10-09 07:42] VITALS: BP 173/73; PULSE 89
[2023-10-09] MEDS: Metoprolol Succinate ER 50 MG TAB.ER.24H PO (07:42)
[2023-10-09] MEDS: Doxycycline Monohydrate 100 MG CAPSULE PO (07:42)
[2023-10-09] MEDS: Cholecalciferol (Vitamin D3) 25 MCG TABLET 50 MCG PO (07:42)
[2023-10-09] MEDS: Tolterodine Tartrate LA 4 MG CAP.ER.24H PO (07:42)
[2023-10-09 07:46] VITALS: BP 173/73; PULSE 89; RESP 18; TEMP 36.9; O2SAT 96
[2023-10-09] MEDS: 0.9 % Sodium Chloride Flush 3 ML SYRINGE IVFLUSH (07:53)
[2023-10-09] MEDS: Budesonide 180 MCG AER.POW.BA 2 PUFF INHALE (07:55)
[2023-10-09] MEDS: Tiotropium Bromide 2.5 mcg 1 PUFF/2.5 MCG MIST.INHAL 2 PUFF INHALE (07:55)
[2023-10-09 07:58] VITALS: PULSE 84; RESP 17; O2SAT 95
[2023-10-09 10:15] VITALS: PULSE 89; PULSE 94; PULSE 96; O2SAT 84; O2SAT 86; O2SAT 90
[2023-10-09] MEDS: Sucralfate 1 GM TABLET 4 GM PO (11:40)
[2023-10-09] MEDS: oxyCODONE HCl Immed Release 5 MG TABLET PO ×2 (11:40→14:59)
--- NOTE | 2023-10-09 12:05 | PM.HEMONCPN ---
Medical Summary - Medical Summary Date of Service: 10/09/23 Chief complaint: Diarrhea Primary Care Provider: Sarthak Person MD Interval History Interval history: Sarah Medina is a 63 year old lady, with history of IVDA, history of hepatitis-C, recent admission to [facility] from 08/23-09/04 where she was diagnosed with small cell lung cancer with post obstructive pneumonia and SIADH. She had PET scan showing L and R supraclavicular node, paratracheal /mediastinal. negative brain MRI. She presented to the ED yesterday, for evaluation of retrostrernal non radiating chest pain and nausea/vomiting diarrhea that started 2 days ago, started chemo on friday 09/22. She also had productive cough and shortness of breath. No weight gain or orthopnea. Denies anorexia, has been eating and drinking without difficult. Endorses significant anxiety. Diarrhea improved still present. No nausea, fever or chills. No abdominal discomfort. Review of Systems - Neurologic Reports no additional neurologic complaints, Denies focal weakness, Reports numbness, Reports weakness PMFSH Medical History: Medical History (Last Reviewed 10/05/23 @ 16:31 by Shawna Mistry MD) Abnormal CT scan, chest Allergic rhinitis Anxiety Benign essential hypertension Bronchitis Cervical spondylosis COPD (chronic obstructive pulmonary disease) Early satiety Endocarditis of mitral valve Onset Date: ~11/2017 Facet arthritis of lumbar region GERD (gastroesophageal reflux disease) History of hepatitis C IV drug user Lung mass Mass of right lung MDD (major depressive disorder), recurrent episode, moderate Mitral regurgitation Mitral valve prolapse Nicotine dependence, cigarettes, uncomplicated Nonrheumatic mitral (valve) insufficiency Osteopenia Onset Date: ~2011 Paresthesia of left leg Pulmonary nodule Pure hypercholesterolemia Rectal prolapse Small cell lung cancer Onset Date: ~08/2023 Vitamin D deficiency Functional capacity: wheelchair bound Family History: Family History (Last Reviewed 10/05/23 @ 16:31 by Shawna Mistry MD) Father Internal bleeding Mother Medical history unknown Family history: reviewed and not pertinent Surgical History: Surgical History (Last Reviewed 10/05/23 @ 16:31 by Shawna Mistry MD) History of bronchoscopy Onset Date: ~2023 History of colonoscopy Onset Date: ~2017 History of hysteroscopy Onset Date: ~2010 History of liver biopsy Onset Date: ~2009 History of partial colectomy Onset Date: ~2014 Social History: Social History (Last Reviewed 10/05/23 @ 16:31 by Shawna Mistry MD) Living Situation History: Household Members: None Housing: House Housing Other:: lives alone with her cat Malena Do you presently have visiting nurse or other home services: No Alcohol History Details: 1. How often do you have a drink containing alcohol?: a. Never AUDIT-C Alcohol total score: 0 Currently Displaying Signs/Symptoms of Alcohol Withdrawal: No Tobacco History: Patient Tobacco Use Status: Never used Tobacco Tobacco use type: Cigarette Cigarette Packs Per Day: 0.5 Years Smoked: 45 years (onset 15, 1/2-3/4ppd x 45yrs, 28pyh) Smoked in Last 30 Days: Yes e-Cigarette/Vaping Use: Never Used Patient Interested in Nicotine Replacement: Yes Patient Given Instructions on How to Stop Smoking: Yes Date Education Initiated: 09/28/23 Second Hand Smoke Exposure: Yes Substance Use History: Use of substances other than those prescribed or required for medical reasons: No Substance Use Type: Marijuana Currently Displaying Signs/Symptoms of Drug Intoxication Withdrawal: No Any prior treatment program specific to substance use: No Domestic Abuse History: Have you been hit, kicked, punched, or otherwise hurt by someone within the past year? If so, by whom?: No Do you feel safe in your current relationship?: No Is there a partner from a previous relationship who is making you feel unsafe now?: No Are you made to feel afraid or neglected: No Advance Directives: Advance Directives: Yes Advance Directives on File: Yes Advance Directives Date on File: 12/18/21 Homicidal Assessment: Do you have a plan to hurt others: No Plan Nutrition Assessment: Recently lost weight without trying: Unsure How much weight loss: Unsure Eating poorly because of decreased appetite: Yes Nutrition screen score: 5 Nutrition Risks: No Nutritional Risk Patient : No : No Poor oral hygiene: No Occupation Assessmet: service: No Current occupational status: unemployed Sex/Gender Assessment: Sexual orientation: Straight/Heterosexual Gender identity: Female Home Medications and Allergies Current Medications: Current Medications Acetaminophen (Acetaminophen 325 Mg Tablet) 650 mg PO Q6H PRN PRN Reason: Pain, Mild (Pain Scale 1-3), fever or headache Last Admin: 10/09/23 07:40 Dose: 650 mg Albuterol Sulfate (Albuterol Sulfate 90 Mcg 8 Gm Inhaler) 1 puff INHALE Q6H PRN PRN Reason: shortness of breath or wheezing Budesonide (Budesonide 180 Mcg Aer.Pow.Ba) 2 puff INHALE RBID [facility] Last Admin: 10/09/23 07:55 Dose: 2 puff Calcium Carbonate (Calcium Carbonate 750 Mg Tab.Chew) 750 mg PO Q4H PRN PRN Reason: Heartburn Last Admin: 09/29/23 18:08 Dose: 750 mg Cefuroxime Axetil (Cefuroxime Axetil 250 Mg Tablet) 250 mg PO Q12H [facility] Last Admin: 10/09/23 07:41 Dose: 250 mg Clonazepam (Clonazepam 0.5 Mg Tablet) 0.5 mg PO BID [facility] Last Admin: 10/09/23 07:41 Dose: 0.5 mg Cyclobenzaprine HCl (Cyclobenzaprine Hcl 5 Mg Tablet) 5 mg PO BID [facility] Last Admin: 10/09/23 07:41 Dose: 5 mg Doxycycline Monohydrate (Doxycycline Monohydrate 100 Mg Capsule) 100 mg PO Q12H [facility] Last Admin: 10/09/23 07:42 Dose: 100 mg Escitalopram Oxalate (Escitalopram Oxalate 20 Mg Tablet) 20 mg PO DAILY [facility] Last Admin: 09/29/23 08:13 Dose: 20 mg Fluticasone Propionate (Fluticasone Propionate Nasal 16 Gm [place]) 1 spray NOSTRIL-B DAILY [facility] Last Admin: 10/09/23 07:40 Dose: 1 spray Guaifenesin/Dextromethorphan (Guaifenesin Dm 100/10/5 Ml 5 Ml Syrup) 10 ml PO TID PRN PRN Reason: cough Heparin Sodium (Porcine) (Heparin Sodium,Porcine 5,000 Unit/Ml Vial) 5,000 unit SUBCUT Q12H [facility] Last Admin: 10/03/23 07:41 Dose: 5,000 unit Hydroxyzine HCl (Hydroxyzine Hcl 50 Mg Tablet) 50 mg PO BEDTIME [facility] Last Admin: 10/08/23 20:30 Dose: 50 mg Loperamide HCl (Loperamide Hcl 2 Mg Capsule) 2 mg PO Q4H PRN PRN Reason: Diarrhea Last Admin: 10/09/23 07:41 Dose: 2 mg Losartan Potassium (Losartan Potassium 25 Mg Tablet) 25 mg PO DAILY@0900 [facility]; Protocol Last Admin: 09/29/23 08:12 Dose: 25 mg Magnesium Hydroxide (Milk Of Magnesia 30 Ml Oral.Susp) 30 ml PO DAILY PRN PRN Reason: Constipation Melatonin (Melatonin 3 Mg Tablet) 6 mg PO BEDTIME PRN PRN Reason: Insomnia Last Admin: 09/30/23 19:58 Dose: 6 mg Metoclopramide HCl (Metoclopramide Hcl 5 Mg Tablet) 5 mg PO TID [facility] Last Admin: 10/09/23 07:41 Dose: 5 mg Metoprolol Succinate (Metoprolol Succinate Er 50 Mg Tab.Er.24h) 50 mg PO DAILY [facility]; Protocol Last Admin: 10/09/23 07:42 Dose: 50 mg Mirtazapine (Mirtazapine 30 Mg Tablet) 30 mg PO BEDTIME [facility] Last Admin: 10/08/23 20:30 Dose: 30 mg Nicotine (Nicotine 14 Mg Patch.Td24) 14 mg TRANSDERMA Q24H [facility] Last Admin: 10/08/23 14:53 Dose: 14 mg Omeprazole (Omeprazole 20 Mg Capsule.Dr) 20 mg PO DAILY@0630 [facility] Last Admin: 10/09/23 05:42 Dose: 20 mg Ondansetron HCl (Ondansetron Hcl 4 Mg/2 Ml Vial) 4 mg IVPUSH Q8H PRN PRN Reason: Nausea and Vomiting Last Admin: 10/04/23 16:35 Dose: 4 mg Oxycodone HCl (Oxycodone Hcl Immed Release 5 Mg Tablet) 5 mg PO Q4H PRN PRN Reason: Pain, Severe (Pain Scale 7-10) Last Admin: 10/09/23 11:40 Dose: 5 mg Prochlorperazine Edisylate (Prochlorperazine Edisylate 10 Mg/2 Ml Vial) 5 mg IVPUSH ONCE PRN PRN Reason: Nausea Sodium Chloride (0.9 % Sodium Chloride Flush 3 Ml Syringe) 3 ml IVFLUSH QSHIFT [facility] Last Admin: 10/09/23 07:53 Dose: 3 ml Sodium Chloride (Sodium Chloride Tab 1 Gm Tablet) 1 gm PO TID [facility] Last Admin: 10/09/23 07:41 Dose: 1 gm Sucralfate (Sucralfate 1 Gm Tablet) 4 gm PO DAILY@1200 [facility] Last Admin: 10/09/23 11:40 Dose: 4 gm Tiotropium [place] (Tiotropium [place] 2.5 Mcg 1 Puff/2.5 Mcg Mist.Inhal) 2 puff INHALE RDAILY [facility] Last Admin: 10/09/23 07:55 Dose: 2 puff Tolterodine Tartrate (Tolterodine Tartrate [place] 4 Mg Cap.Er.24h) 4 mg PO DAILY@09 [facility] Last Admin: 10/09/23 07:42 Dose: 4 mg Vitamin D (Cholecalciferol (Vitamin D3) 25 Mcg Tablet) 50 mcg PO DAILY@899 [facility] Last Admin: 10/09/23 07:42 Dose: 50 mcg Home Medications ?Medication ?Instructions ?Recorded ?Confirmed ?Type alosetron 0.5 mg tablet 1 mg PO DAILY@0907/22/23 09/28/23 History cholecalciferol (vitamin D3) 50 50 mcg PO DAILY@89907/22/23 09/28/23 History mcg (2,000 unit) capsule pantoprazole 40 mg tablet,delayed 40 mg PO DAILY@0607/22/23 09/28/23 History release solifenacin 10 mg tablet 10 mg PO DAILY@89907/22/23 09/28/23 History tiotropium bromide 18 mcg capsule 1 cap inhalation DAILY@899 copd 07/22/23 09/28/23 History with inhalation device (Spiriva with HandiHaler) sucralfate 1 gram tablet (Carafate) 4 g PO DAILY@1200 07/25/23 09/28/23 History budesonide 180 mcg/actuation 2 inh inhalation BID 09/28/23 09/28/23 History breath activated powder inhaler (Pulmicort Flexhaler) lorazepam 1 mg tablet 1 mg PO BID 09/28/23 09/28/23 History Allergies Allergy/AdvReac Type Severity Reaction Status Date / Time No Known Allergies Allergy Unknown unknown Verified 09/28/23 09:37 [NO KNOWN ALLERGIES] Exam Vital signs: Vital Signs Temp 98.5 F 10/09/23 07:46 Pulse 84 10/09/23 07:58 Resp 17 10/09/23 07:58 BP 173/73 H 10/09/23 07:46 Pulse Ox 96 10/09/23 07:46 O2 Del Method Room Air 10/09/23 07:46 O2 Flow Rate 2 10/09/23 03:44 Intake & Output 10/08/23 10/09/23 10/09/23 18:59 06:59 18:59 Intake Total 240 / 1280 1040 / 1280 Balance 240 / 1280 1040 / 1280 Intake: Intake, Oral Amount 240 / 1280 1040 / 1280 Other: Breakfast % Eaten 50% Lunch % Eaten 25% Dinner % Eaten 100% Eating (Feeding) Ability Independent Number of Unmeasured Voids 2 2 Urine Bathroom Urine Color Yellow Last Bowel Movement 10/08/23 10/09/23 Weight 59.5 kg BMI result Body Mass Index 24.0 - Constitutional Present: no acute distress, mild distress - Routine HEENT Exam Head: Present: atraumatic, normal inspection, normocephalic - Routine Neck Exam Present: full ROM, lymphadenopathy - Routine Respiratory Exam Present: decreased breath sounds - Routine Cardiovascular Exam Cardiovascular: Present: RRR, S1, S2 - Routine Abdominal Exam Present: soft, nontender - Routine Extremities Exam Present: full ROM, nontender - Routine Skin Exam Present: intact - Routine Neurological Exam Present: alert, oriented X3 Data - Labs CBC & Chem 7: 10/08/23 05:21 10/08/23 05:21 - Imaging Radiologist's impression: ITS Impressions Chest X-Ray 09/28/23 10:02 IMPRESSION: Right upper lobe mass with partial right upper lobe collapse/consolidation. There may be mild improvement when compared to the recent study. Chest CTA 09/28/23 12:07 IMPRESSION: 1. No evidence of pulmonary emboli. 2. Right suprahilar mass with associated adenopathy and collapse of the right upper lobe. Mediastinal adenopathy appears slightly improved. VTE: negative. Chest X-Ray 10/04/23 16:00 IMPRESSION: 1. Improved aeration to the right upper lobe with resolution of previously seen atelectasis. Residual area of thickening around the right upper lobe bronchus corresponding to the patient's known mass. 2. Streaky atelectasis at the left lung base. Chest X-Ray 10/07/23 11:16 IMPRESSION: * Improving right suprahilar consolidation. * Port-A-Cath remain in place properly positioned. * Blunting of left costophrenic angle probably small effusion unchanged. Assessment and Plan Patient Active problem list reviewed?: Yes (1) Small cell lung cancer Problem details: As noted above her recent bronchoscopic exam and bronchial biopsy are positive small cell carcinoma. Status: Acute Assessment and plan: 1. 63 year old lady with recent diagnosis of Small cell Lung Cancer, involving right hilum in August 2023. CT chest with contrast revealed a right suprahilar mass measuring 5.8 x 4.1 cm encasing and occluding right upper lobe bronchus with complete collapse of right upper lobe. This is a small stable left upper lobe 1 cm pulmonary nodule, enlarged mediastinal lymph nodes with 1.4 x 2.7 x 2.4 cm pretracheal lymph node. No pleural effusion or axillary adenopathy. Adrenals normal, no evidence of osseous metastatic disease. She had a CT head without contrast which was negative for metastasis. Clinical stage T3 N2, Stage IIIB LDH mildly elevated at 274, CEA 12.1 NG/ mL. She had presented with severe hyponatremia with sodium of 116 millimole per L secondary to SIADH/lung cancer. PET scan performed at [facility] on 09/11/2023 showed FDG avid right hilar/suprahilar mass with SUV 12.6, FDG avid mediastinal and right hilar lymphadenopathy. Left supraclavicular lymph node SUV max 4.2, right supraclavicular lymph node SUV max 2, right paratracheal SUV max 9.4, anterior mediastinal SUV max 4.8. Nonspecific focal activity in anal canal SUV 15.3. Patient reports that she has had surgery for rectal prolapse and continues to have intermittent rectal bleeding which could account for the uptake in the anal canal. Brain MRI performed 09/10/2023 showed no evidence of intracranial metastatic disease. [facility]. She was started on chemotherapy on 09/22. 2. Hyponatremia secondary to SIADH. She is on sodium bicarbonate tablets. She was unable to tolerate a urea. She is now on fluid restriction as well. 3. Pancytopenia secondary to recent chemotherapy. She received 4 doses of Granix during this admission. She received 2 units PRBC. She continues to have thrombocytopenia related to chemotherapy as well as infection and antibiotic use. 4. Klebsiella UTI, she was on ceftriaxone. Blood cultures negative. Antibiotics are being de- escalated. 5. Diarrhea secondary to antibiotics. C diff negative. She can be discharged on Imodium. She will be scheduled for follow-up in oncology clinic next week. - Time Spent With Patient Time Spent with Patient (in minutes): 10
--- NOTE | 2023-10-09 12:28 | P.DS_ITS ---
DS: Providers Provider Date of Service: 10/09/23 Date of admission: 09/29/23 08:27 Date of discharge: 10/09/23 Primary care physician: Sarthak Person MD Consults: 09/28/23 14:38 Consult to Hematology / Oncology Routine Consulting Provider: [facility] Oncology/Hematology Reason for consultation: Small cell lung cancer, n/v following chemo 09/28/23 14:50 Consult to Psychiatry Routine Consulting Provider: [facility] Reason for consultation: adjustment disorder/ uncontrolled anxiety- med management 09/29/23 08:24 Consult to Nephrology Routine Consulting Provider: [facility] Reason for consultation: hyponatremia 10/04/23 16:30 Consult to Infectious Diseases Routine Consulting Provider: [facility] [facility] Reason for consultation: Neutropenic fever Attending physician on discharge: Jeronimo Riggins Discharging clinician: Kecia Sanchez DS: Diagnosis Discharge Diagnosis (1) Small cell lung cancer: Status: Acute DS: Summary Hospital Course Hospital Course: From H&P on the day of admission 62 yo female with PMH of bronchitis, history of IVDA, history of hepatitis-C, COPD, HTN, HLD, anemia, GERD, IBS, gastroparesis, anxiety, depression with recent admission to [facility] [place] from 08/23-09/04 where she was diagnosed with small cell lung cancer with post obstructive pneumonia and SIADH presented to the ED for evaluation of retrostrernal non radiating chest pain and nausea/vomiting diarrhea that started 2 days ago, started chemo on thursday. she follows with Dr. James had PET scan showing L and R supraclavicular node, paratracheal /mediastinal. negative brain MRI. She reports ongoing productive cough and shortness of breath without change in quality or severity. No weight gain or orthopnea. Denies anorexia, prior to today has been eating and drinking without difficult. Endorses significant anxiety. Since arrival, vss. No leukocytosis. Acute on chronic microcytic anemia h/h 9.9/28.6%, plt 146. Renal function baseline. Na 127, Cl 95, Ca 8.3, Mag 1.5. Lytes otherwise normal. BNP 458. PCT 0.02. UA 3+ leuks, 1+ blood, 2+ protein, positive urinary sediment, 4+ bacteria. Negative flu/rsv/covid. CTA chest negative PE, right suprahilar mass with associated adenopathy and collapse of RUL. Mediastinal adenopathy slightly improved. In the ED, received famotidine 20mg, 2g mag, morphine, IV NS, 1g ctx and zofran. Hospital course by problem: Acute Pancytopenia with symptomatic anemia and neutropenia secondary to recent chemotherapy Neutropenia resolved s/p 2 units PRBCs Oncology following received Filgrastim x4 white count now elevated likely due to treatment with filgrastrim Neutropenic fever no convincing fever. CXR suggesting possible pneumonia, recheck improving. negative cultures Initially treated with IV Vancomycin and Zosyn deescalate to PO Doxy/ceftin for now. Has completed full course of Ceftin, will discharge with 2 more days of oral doxycycline ID input appreciated Acute hypokalemia k 3.2 likely due to diarrhea. replaced. repeat labs next week. prn imodium for diarrhea acute diarrhea likely antibiotics related, C.Diff negative. can use imodium as needed Acute on chronic hyponatremia Due to 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 improved to normal Continue fluid restriction, Continue sodium tablets, weaned down to 1 mg tid Nephrology following during hospital stay sodium levels stable Recommend outpatient follow-up with Nephrology Nausea vomiting due to chemotherapy Improved Anxiety, depression seen by Psychiatry- Ativan was changed to clonazepam. Lexapro discontinued, Remeron was continued at current dose. Acute hypomagnesemia Give IV Replacement Acute UTI Klebsiella in urine. Complete a course of antibiotics during hospitalization Small-cell lung cancer. Dose of oxycodone was increased for adequate pain control. She will have outpatient follow-up with Oncology next week and repeat labs will be obtained in clinic. Home oxygen evaluation was obtained and she did qualify for 2 L of supplemental oxygen continuously. She will be discharged home with new [facility] services Time Attestation Discharge Coordination Time (in mins): 40 Quality: Safe Use of Opioids Does Pt have an Active Cancer Diagnosis on the Problem List?: No Quality: Stroke Does the patient have a stroke diagnosis?: No Physical Exam Vital Signs: Vital Signs: Last Vital Signs Temp 98.5 F 10/09/23 07:46 Pulse 84 10/09/23 07:58 Resp 17 10/09/23 07:58 BP 173/73 H 10/09/23 07:46 Pulse Ox 96 10/09/23 07:46 O2 Del Method Room Air 10/09/23 07:46 O2 Flow Rate 2 10/09/23 03:44 BMI result Body Mass Index 24.0 Const: General: cooperative, comfortable, no acute distress, alert and awake Nutritional Appearance: average body habitus Orientation/consciousness: patient oriented x3 Chest: Other: port anterior chest wall no surrounding erythema Resp: Effort & Inspection: normal respiratory effort, able to speak in complete sentences, no respiratory distress and no use of accessory muscles Cardio: Rate: regular rate GI: Inspection: No distended Palpation (GI): Soft to palpation Neuro: General: patient oriented x3, moves all extremities and CN's II-XI intact bilaterally Extrem: General: Yes no pedal edema DS: Data Data Completed and Pending Completed studies during hospitalization [Text1]: Procedures Excision of Right Main Bronchus, Via Natural or Artificial Opening Endoscopic, Diagnostic (08/24/23) Labs on day of discharge: Preliminary micro results at discharge 10/04/23 15:42 Blood Culture - Preliminary Blood - Venous No growth after 48 hours. 10/04/23 15:42 Blood Culture - Preliminary Blood - Venous No growth after 48 hours. Discharge Plan Discharge Anticipated Discharge Date/Time: 10/09/23 11:02 Patient Disposition: Home Health Service Discharge Diagnosis: pancytopenia neutropenia hypokalemia hyponatremia Referrals: [facility] [Outside] - 1 Week (They will call you to schedule your home physical therapy appointments. ) Sarthak Person MD [Primary Care Provider] - 1 Week Discharge Medications: New clonazepam 0.5 mg Tablet 0.5 mg PO BID 15 Days Qty: 30 0RF loperamide 2 mg Capsule 2 mg PO Q6H PRN (Reason: Diarrhea) Qty: 14 0RF doxycycline monohydrate 100 mg Capsule 100 mg PO Q12H 2 Days Qty: 4 0RF Continued albuterol sulfate [Ventolin HFA] 90 mcg/actuation HFA aerosol inhaler 1 puff PO Q6H PRN (Reason: shortness of breath or wheezing) 30 Days Qty: 8.5 3RF hydroxyzine HCl 50 mg tablet 50 mg PO BEDTIME Qty: 90 1RF metoprolol succinate 50 mg tablet extended release 24 hr 50 mg PO DAILY Qty: 90 1RF losartan 25 mg tablet 25 mg PO DAILY@0900 90 Days Qty: 90 1RF fluticasone propionate 50 mcg/actuation spray,suspension 1 spray intranasal DAILY 30 Days Qty: 16 2RF metoclopramide HCl 5 mg tablet 5 mg PO TID Qty: 90 6RF mirtazapine 30 mg tablet 30 mg PO BEDTIME 90 Days Qty: 90 1RF pantoprazole 40 mg tablet,delayed release (DR/EC) 40 mg PO DAILY@0630 alosetron 0.5 mg tablet 1 mg PO DAILY@0900 tiotropium bromide [Spiriva with HandiHaler] 18 mcg capsule, w/inhalation device 1 cap inhalation DAILY@0900 Rx Instructions: puncture 1 cap using device; one dose = 2 inhalations solifenacin 10 mg tablet 10 mg PO DAILY@0900 cholecalciferol (vitamin D3) 50 mcg (2,000 unit) capsule 50 mcg PO DAILY@0900 Rx Instructions: 1 capsule Orally Once a day sucralfate [Carafate] 1 gram tablet 4 g PO DAILY@1200 dextromethorphan-guaifenesin 10-100 mg/5 mL Syrup 10 ml PO TID PRN (Reason: cough) Qty: 237 0RF ondansetron 8 mg Tablet,Disintegrating 8 mg PO Q8H PRN (Reason: Nausea And Vomiting) Qty: 30 3RF Pulmicort Flexhaler 180 mcg/actuation aerosol powdr breath activated 2 inh INHALATION BID nicotine 14 mg/24 hr patch 24 hour 1 patch transdermal Q24H MDD smoking 28 Days Qty: 28 2RF Changed sodium chloride 1,000 mg Tablet,Soluble 1,000 mg PO TID Qty: 90 2RF oxycodone 5 mg tablet 5 mg PO Q6H PRN (Reason: pain) Qty: 30 0RF Discontinued escitalopram oxalate 20 mg tablet 20 mg PO DAILY 90 Days Qty: 90 1RF lorazepam 1 mg tablet 1 mg PO BID Discharge Orders: Discharge Order (Routine); Ordered 10/09/23 Ordered By: Kecia Sanchez Activity on Discharge: As tolerated Stand Alone Forms: Patient Portal Discharge page Print Language: [place] Care Plan Goals: see below Health Concerns: Pancytopenia Neutropenia Hyponatremia Hypokalemia Plan of Treatment: Dose of sodium chloride changed to 1 g t.i.d. Complete 2 more days of doxycycline as prescribed Follow-up in Oncology as scheduled You have qualified for 2 L of continuous home oxygen You will be discharged home with VNA services you will have port evaluation and repeat labs checked next week in oncology Can use Imodium as needed for diarrhea Assessment: See discharge summary
--- NOTE | 2023-10-09 12:42 | P.F2F_ITS ---
Service Date Service Date: 10/09/23 Encounter Date of encounter: 10/09/23 Reasons for Services Signs and symptoms assessed: Needs senior living and home physical therapy. group home for new supplemental oxygen/education/monitoring of oxygen saturation Reason for physical therapy: home safety and mobility and therapeutic exercises Overseeing Care: Sarthak Person Homebound: Leaving the home is medically contraindicated at this time without the asist of a device and/or another person due th the listed conditions above and below. Reason homebound: weakness related to hospital stay Certification: Based on the above findings, I certify that this patient is confined to the home and needs intermittent senior living care, physical therapy and/or speech therapy, or continues to need occupational therapy. The patient is under my care, and I have initiated the establishment of the plan of care. The patient will be followed by a physician who will periodically review the plan of care. Time Spent With Patient Time: Total time managing care of this patient today ____ minutes.
--- NOTE | 2023-10-09 14:34 | MHC.CM.PN ---
Addendum entered by Bella Serra 10/09/23 15:28: PT WILL DC WITH [facility] ORDERS AND DCS SENT TO THEM, ALONG WITH NOTICE OF DC, VIA [facility] Original Note: CM MET WITH PT TO DISCUSS DC PLANNING SHE REPORTS HER DAUGHTER WILL BE PICKING HER UP, SHE IS UNSURE WHAT TIME SHE IS AWARE SHE IS SUPPOSED TO BRING THE PORTABLE LOANER O2 TANK HOME AND THEN CALL PT STATES SHE DOES NOT WANT TO TAKE THE O2, AND REQUESTED TEST BE DONE AGAIN [facility] ASSURED HER THE RT WAS SURE ABOUT THE RECOMMENDATIONS AND SHE SHOULD TAKE THE O2 IN CASE SHE NEEDS IT SHE AGREED AND SAID SHE UNDERSTOOD THE INSTRUCTIONS TO CALL THE HOME O2 COMPANY ONCE HOME [employer] ALSO INFORMED HER THESE INSTRUCTIONS COULD BE REVIEWED AGAIN ONCE HER DAUGHTER ARRIVES
== END 2023-10-09 15:31 | disposition home health service (06) | DRG 643 ==
LOC: HO.ED 11:50 → HO.EDOVER 14:55 → HO.S3 17:26
PROVIDERS: Internal Medicine; Student in an Organized Health Care Education/Training Program; Admitting Provider Physician Assistant; Emergency Provider Emergency Medicine; PCP Internal Medicine; Visit Provider Physician Assistant Medical
DX: E22.2 Syndrome of inappropriate secretion of antidiuretic hormone (principal); D61.810 Antineoplastic chemotherapy induced pancytopenia; J18.9 Pneumonia, unspecified organism; C34.01 Malignant neoplasm of right main bronchus; N39.0 Urinary tract infection, site not specified; J98.11 Atelectasis; K52.1 Toxic gastroenteritis and colitis; J44.9 Chronic obstructive pulmonary disease, unspecified; E83.42 Hypomagnesemia; B96.1 Klebsiella pneumoniae [K. pneumoniae] as the cause of diseases classified elsewhere; F43.23 Adjustment disorder with mixed anxiety and depressed mood; I10 Essential (primary) hypertension; E87.6 Hypokalemia; K21.9 Gastro-esophageal reflux disease without esophagitis; T36.95XA Adverse effect of unspecified systemic antibiotic, initial encounter; E78.5 Hyperlipidemia, unspecified; R11.2 Nausea with vomiting, unspecified; T45.1X5A Adverse effect of antineoplastic and immunosuppressive drugs, initial encounter; Z20.822 Contact with and (suspected) exposure to COVID-19; Z86.19 Personal history of other infectious and parasitic diseases; Z79.51 Long term (current) use of inhaled steroids; Z79.899 Other long term (current) drug therapy
CPT/HCPCS: 0241U; 36415; 71045; 71275; 80048; 80076; 80202; 81001; 83605; 83690; 83735; 83880; 84145; 84484; 85007; 85025; 85027; 86850; 86900; 86901; 86920; 86922; 87040; 87086; 87088; 87186; 87493; 87507; 87633; 93005; 94640; 94664; 97116; 97161; 99221; 99285; J0696; J1447; J1642; J1644; J1650; J2060; J2270; J2405; J2543; J3370; J3371; J3475; J3480; P9016; Q9967

== ENCOUNTER → 2023-09-28 09:29 | Outpatient (BNV) | payer MEDICARE, MEDICAID, SELFPAY | PROVIDERS: Admitting Provider Physician Assistant; Emergency Provider Emergency Medicine; PCP Internal Medicine; Visit Provider Internal Medicine Cardiovascular Disease | DX: I45.81 Long QT syndrome (principal) | CPT/HCPCS: 93010 ==

== ENCOUNTER → 2023-09-28 14:33 | Outpatient (BNV) | payer MEDICARE, MEDICAID, SELFPAY | PROVIDERS: Admitting Provider Physician Assistant; Emergency Provider Emergency Medicine; PCP Internal Medicine; Visit Provider Physician Assistant | DX: D61.818 Other pancytopenia (principal); F43.23 Adjustment disorder with mixed anxiety and depressed mood; N39.0 Urinary tract infection, site not specified; R11.2 Nausea with vomiting, unspecified; E83.42 Hypomagnesemia; E87.1 Hypo-osmolality and hyponatremia | CPT/HCPCS: 99223; 99232; 99233; 99239; G0180 ==

== ENCOUNTER 2023-09-29 08:27 | Outpatient (BNV) | payer MEDICARE, MEDICAID, SELFPAY | END 2023-10-04 07:58 | PROVIDERS: Admitting Provider Physician Assistant; Emergency Provider Emergency Medicine; PCP Internal Medicine; Visit Provider Internal Medicine Cardiovascular Disease | DX: R07.9 Chest pain, unspecified (principal) | CPT/HCPCS: 93010 ==

== ENCOUNTER → 2023-09-29 08:27 | Outpatient (BNV) | payer OTHER, MEDICAID, SELFPAY | PROVIDERS: Admitting Provider Physician Assistant; Emergency Provider Emergency Medicine; PCP Internal Medicine; Visit Provider Internal Medicine | DX: D61.818 Other pancytopenia (principal) | CPT/HCPCS: 99222 ==

== ENCOUNTER → 2023-09-29 08:27 | Outpatient (BNV) | payer MEDICARE, MEDICAID, SELFPAY | PROVIDERS: Admitting Provider Physician Assistant; Emergency Provider Emergency Medicine; PCP Internal Medicine; Visit Provider Social Worker | DX: F43.23 Adjustment disorder with mixed anxiety and depressed mood (principal) | CPT/HCPCS: 99232 ==

== ENCOUNTER → 2023-09-29 08:27 | Outpatient (BNV) | payer MEDICARE, MEDICAID, SELFPAY | PROVIDERS: Admitting Provider Physician Assistant; Emergency Provider Emergency Medicine; PCP Internal Medicine; Visit Provider Internal Medicine Hypertension Specialist | DX: E87.1 Hypo-osmolality and hyponatremia (principal) | CPT/HCPCS: 99223; 99232 ==

== ENCOUNTER 2023-10-15 10:15 | Outpatient (AMB) | payer OTHER, SELFPAY ==
[2023-10-15 10:09] VITALS: BP 102/74; PULSE 82; O2SAT 100; BMI 22.5
--- NOTE | 2023-10-15 10:09 | HO.NEPHOV_ITS ---
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: No Accompanied by: Daughter Allergies No Known Allergies [NO KNOWN ALLERGIES] Allergy (Unknown, Verified 10/15/23 10:11) unknown Medication List - Last Reconciled 10/15/23 by Selvin Estrada MD albuterol sulfate 90 mcg/actuation (Ventolin HFA) 1 puff PO Q6H PRN 30 days alosetron 1 mg PO DAILY@0900 budesonide 180 mcg/actuation (Pulmicort Flexhaler) 2 inhalations inhalation BID cholecalciferol (vitamin D3) 50 mcg PO DAILY@0900 clonazepam 0.5 mg PO BID 15 days dextromethorphan-guaifenesin 10-100 mg/5 mL 10 mL PO TID PRN diphenoxylate-atropine 2.5-0.025 mg (Lomotil) 1 tab PO DAILY PRN fluticasone propionate 50 mcg/actuation 1 spray intranasal DAILY 30 days hydroxyzine HCl 50 mg PO BEDTIME loperamide 2 mg PO Q6H PRN losartan 25 mg PO DAILY@0900 90 days metoclopramide HCl 5 mg PO TID metoprolol succinate ER 50 mg PO DAILY mirtazapine 30 mg PO BEDTIME 90 days nicotine 1 patch transdermal Q24H 28 days MDD smoking nicotine (polacrilex) 4 mg buccal Q8H PRN ondansetron 8 mg PO Q8H PRN oxycodone 5 mg PO Q6H PRN pantoprazole 40 mg PO DAILY@0630 potassium chloride ER (K-Tab) 20 mEq PO DAILY sodium chloride 1,000 mg PO BID solifenacin 10 mg PO DAILY@0900 sucralfate (Carafate) 4 grams PO DAILY@1200 tiotropium bromide (Spiriva with HandiHaler) 1 cap inhalation DAILY@0900 HPI Comments Details: 62 yo female with h/o bronchitis, history of IVDA, history of hepatitis-C, COPD, HTN, HLD, anemia, GERD, IBS, gastroparesis, anxiety, depression with recent admission to [facility] from 07/21-07/23 and again 4/21-07/28 due to COPD exacerbation an d pneumonia Diagnosed with Small cell CA; Seen by Currently on Salt tabs. Was on 2 gm TID; Decreased to 1 gm TID on 09/09/23 10/15/23 Had hypokalemia and received IV KCL yesterday Now on PO KCL She had diarrhea - resolved now PFSH Medical History COPD (chronic obstructive pulmonary disease) Small cell lung cancer (~08/2023) MDD (major depressive disorder), recurrent episode, moderate Abnormal CT scan, chest Mass of right lung Lung mass Bronchitis Rectal prolapse Nicotine dependence, cigarettes, uncomplicated Nonrheumatic mitral (valve) insufficiency Pulmonary nodule History of hepatitis C Osteopenia (~2011) IV drug user Endocarditis of mitral valve (~11/2017) Mitral valve prolapse Mitral regurgitation Early satiety Paresthesia of left leg Allergic rhinitis Facet arthritis of lumbar region Cervical spondylosis Vitamin D deficiency Pure hypercholesterolemia Benign essential hypertension GERD (gastroesophageal reflux disease) Anxiety Surgical History History of bronchoscopy (~2023) History of liver biopsy (~2009) History of partial colectomy (~2014) History of hysteroscopy (~2010) History of colonoscopy (~2017) Family History Father Internal bleeding Mother Medical history unknown Social History Household Members: None Housing: House Housing Other:: lives alone with her cat Malena Do you presently have visiting nurse or other home services: No Alcohol intake: former Patient Tobacco Use Status: Never used Tobacco Tobacco use type: Cigarette Cigarette Packs Per Day: 0.5 Years Smoked: 45 years (onset 15, 1/2-3/4ppd x 44yrs, 28pyh) e-Cigarette/Vaping Use: Never Used Second Hand Smoke Exposure: Yes Substance Use Type: Marijuana Advance Directives Date on File: 12/18/21 service: No Current occupational status: unemployed Sexual orientation: Straight/Heterosexual Gender identity: Female Cognitive needs: No Hearing needs: No Vision needs: Yes Female Reproductive History Menstrual Age of Menarche: 14 Physical Exam Vital Signs: Last Vital Signs Pulse 82 10/15/23 10:09 BP 102/74 10/15/23 10:09 Pulse Ox 100 10/15/23 10:09 Oxygen Delivery Method Room Air 10/15/23 10:09 BMI result Body Mass Index 22.5 Const General: comfortable; No acute distress Orientation/consciousness: patient oriented x3 Eyes General: appearance normal, both eyes and all related structures Visual Trevizo: normal visual trevizo by confrontation Neck Neck: Yes supple and Yes no JVD Resp Effort & Inspection: normal respiratory effort and respiratory effort not decreased Auscultation: rhonchi Cardio Palpation: no palpable S3 and no palpable S4 Heart sounds: no rubs GI Inspection: Yes normal to inspection Palpation (GI): Soft to palpation Percussion: Yes normal to percussion Auscultation: normal bowel sounds General: Yes no CVA tenderness Back/Spine/Pelvis Back: no CVA tenderness Skin General skin exam: no petechiae and no purpura Neuro General: patient oriented x3 and no focal motor deficits Extrem General: No clubbing and No edema Results Reviewed Nephrology Results: Hgb 9.0 g/dl (12.0-16.0) L 10/14/23 WBC 6.9 X10*3/uL (4.8-10.8) 10/14/23 Plt Count 248 X10*3/uL (160-400) 10/14/23 Sodium 144 mmol/L (135-145) 10/14/23 Potassium 2.5 mmol/L (3.3-5.1) L* 10/14/23 Chloride 106 mmol/L (96-108) 10/14/23 Carbon Dioxide 27 mmol/L (22-29) 10/14/23 BUN 12 mg/dL (9-16) 10/14/23 Creatinine 0.86 mg/dL (0.5-1.4) 10/14/23 Calcium 8.1 mg/dL (8.4-10.2) L 10/14/23 Urine Protein Negative mg/dL (Neg-Trace) 10/04/23 Assessment & Plan Assessment & Plan (1) Small cell lung cancer: Onset Date: ~08/2023 Comment: (Right Upper Lobe - Clinical stage T3 N2, Stage IIIB - Dx 08/2023) Code(s): C34.90 - Malignant neoplasm of unspecified part of unspecified bronchus or lung Category: Medical (2) Acute hyponatremia: Code(s): E87.1 - Hypo-osmolality and hyponatremia Category: Medical (3) Hyponatremia: Code(s): E87.1 - Hypo-osmolality and hyponatremia Category: Medical Plan 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 Worsened by the use of SSRI Decrease NaCl tab to 1 gm BID Restrict PO water intake to 1.2 L per 24 hrs REcheck Na HTN BP low despite stopping Nifedipine will DC Losartan Small cell Ca - management per Oncology Hypokalemia Recheckk today and adjust KCL Orders: Orders Basic Metabolic Panel Today Selvin Estrada MD E87.1 - Hypo- osmolality and hyponatremia Medications: Changed From sodium chloride 1,000 mg PO TID 90 tabs 2RF To sodium chloride 1,000 mg PO BID YEVGENIY Hernandez Discontinued losartan Discontinued Reason: Doctor's Order 25 mg PO DAILY@0900 90 days 90 tabs 1RF Coding Level of Care Code Est Pt Level 4 (71388) Diagnoses Small cell lung cancer C34.90 Acute hyponatremia E87.1 Hyponatremia E87.1
== END 2023-10-15 10:24 | disposition home or self-care (01) ==
PROVIDERS: PCP Internal Medicine; Visit Provider Internal Medicine Hypertension Specialist
DX: C34.90 Malignant neoplasm of unspecified part of unspecified bronchus or lung (principal); E87.1 Hypo-osmolality and hyponatremia
CPT/HCPCS: 99214

== ENCOUNTER → 2023-10-15 10:15 | Outpatient (BNVA) | payer OTHER, SELFPAY | PROVIDERS: PCP Internal Medicine; Visit Provider Internal Medicine Hypertension Specialist | DX: E87.1 Hypo-osmolality and hyponatremia (principal); C34.90 Malignant neoplasm of unspecified part of unspecified bronchus or lung | CPT/HCPCS: 99212 ==

== ENCOUNTER 2023-10-15 10:30 | Outpatient (REF) | payer OTHER, SELFPAY ==
[2023-10-15 11:27] LABS: Anion Gap 11 (12-20); Blood Urea Nitrogen 11 mg/dL (9-16); Calcium 8.5 mg/dL (8.4-10.2); Carbon Dioxide 29 mmol/L (22-29); Chloride 105 mmol/L (96-108); Estimated Glomerular Filt Rate > 60; Glucose Random 112 mg/dL (60-115); Sodium 142 mmol/L (135-145)
== END 2023-10-15 10:31 | disposition home or self-care (01) ==
LOC: HO.10HDL 10:30
PROVIDERS: Visit Provider Internal Medicine Hypertension Specialist
DX: E87.1 Hypo-osmolality and hyponatremia (principal)
CPT/HCPCS: 36415; 80048

== ENCOUNTER 2023-11-02 10:15 | Outpatient (AMB) | payer OTHER, SELFPAY ==
--- NOTE | 2023-11-02 10:21 | MHC.OFFVIS ---
Vital Signs 11/02/23 10:22 Height 5 ft 2 in Weight 126 lb 12.253 oz BMI 23.2 BP 130/68 Blood Pressure Location Lt brachial Pulse 77 Pulse Source Pulse Oximeter Pulse Oximetry (%) 98 Oxygen Delivery Method Nasal Cannula Oxygen Flow Rate 2 Intake Visit Reasons: copd Intake Note: pt is here for follow up and states she is doing well with breathing, she did not receive new sprivia still using capsules Senior Benefits Analyst Required: No Allergies No Known Allergies [NO KNOWN ALLERGIES] Allergy (Unknown, Verified 11/02/23 10:37) unknown Medication List - Last Reconciled 11/02/23 by Zulma Padilla MD albuterol sulfate 90 mcg/actuation (Ventolin HFA) 1 puff PO Q6H PRN 30 days alosetron 1 mg PO DAILY@0900 budesonide 180 mcg/actuation (Pulmicort Flexhaler) 2 inhalations inhalation BID cholecalciferol (vitamin D3) 50 mcg PO DAILY@0900 clonazepam 0.5 mg PO BID 15 days dexamethasone 4 mg PO BID dextromethorphan-guaifenesin 10-100 mg/5 mL 10 mL PO TID PRN diphenoxylate-atropine 2.5-0.025 mg (Lomotil) 1 tab PO DAILY PRN fluticasone propionate 50 mcg/actuation 1 spray intranasal DAILY 30 days hydroxyzine HCl 50 mg PO BEDTIME loperamide 2 mg PO Q6H PRN metoclopramide HCl 5 mg PO TID metoprolol succinate ER 50 mg PO DAILY mirtazapine 30 mg PO BEDTIME 90 days nicotine 1 patch transdermal Q24H 28 days MDD smoking nicotine (polacrilex) 4 mg buccal Q8H PRN ondansetron 8 mg PO Q8H PRN oxycodone 5 mg PO Q6H PRN pantoprazole 40 mg PO DAILY@0630 90 days potassium chloride ER (K-Tab) 20 mEq PO DAILY sodium chloride 1,000 mg PO BID solifenacin 10 mg PO DAILY@0900 sucralfate (Carafate) 4 grams PO DAILY@1200 tiotropium bromide (Spiriva with HandiHaler) 1 cap inhalation DAILY@0900 Do you need a note to return to daycare/school/sports/work: No HPI HPI copd: Details: 63 years old female lifelong smoker with diagnosis of COPD, and recent diagnosis of small cell carcinoma of the right upper lobe, comes for a short term follow-up. Breathing rivera doing as well as expected, denies any acute exacerbation. Gets short of breath on minimal walking around in the house, has mild intermittent cough. But overall her respiratory status is very stable. Smoking down to a few cigarettes per day., she does use nicotine patch daily. For small cell carcinoma she is receiving chemotherapy, and doing well. She gets some nausea and decrease in appetite for a few days after getting the chemotherapy. The last chest x-ray already shows some decrease in the size of right suprahilar mass. [facility] Medical History Small cell lung cancer COPD (chronic obstructive pulmonary disease) Small cell lung cancer (~08/2023) MDD (major depressive disorder), recurrent episode, moderate Abnormal CT scan, chest Mass of right lung Lung mass Bronchitis Rectal prolapse Nicotine dependence, cigarettes, uncomplicated Nonrheumatic mitral (valve) insufficiency Pulmonary nodule History of hepatitis C Osteopenia (~2011) IV drug user Endocarditis of mitral valve (~11/2017) Mitral valve prolapse Mitral regurgitation Early satiety Paresthesia of left leg Allergic rhinitis Facet arthritis of lumbar region Cervical spondylosis Vitamin D deficiency Pure hypercholesterolemia Benign essential hypertension GERD (gastroesophageal reflux disease) Anxiety Surgical History History of bronchoscopy (~2023) History of liver biopsy (~2009) History of partial colectomy (~2014) History of hysteroscopy (~2010) History of colonoscopy (~2017) Family History Father Internal bleeding Mother Medical history unknown Social History Household Members: None Housing: House Housing Other:: lives alone with her cat Malena Do you presently have visiting nurse or other home services: No Alcohol intake: former Patient Tobacco Use Status: Never used Tobacco Tobacco use type: Cigarette Cigarette Packs Per Day: 0.5 Years Smoked: 45 years (onset 15, 1/2-3/4ppd x 44yrs, 28pyh) e-Cigarette/Vaping Use: Never Used Second Hand Smoke Exposure: Yes Substance Use Type: Marijuana Advance Directives Date on File: 12/18/21 service: No Current occupational status: unemployed Sexual orientation: Straight/Heterosexual Gender identity: Female Cognitive needs: No Hearing needs: No Vision needs: Yes Female Reproductive History Menstrual Age of Menarche: 14 Review of Systems Const All systems reviewed & are unremarkable except as noted in HPI and below Eyes Reports no additional complaints ENT Reports nasal congestion (Off and on due to allergic rhinitis) Card Denies chest pain at rest, Denies irregular heart rhythm and Denies leg edema Resp Reports as per HPI and Reports cough GI Reports heartburn (Controlled with med) Reports no additional complaints Musc Reports no additional complaints Skin/Breast Reports system reviewed and no additional complaints, except as documented Neuro Reports no additional complaints Psych Reports anxiety and Reports depression (Controlled with med) Endo Reports no additional complaints Jose L/Lymph Reports no additional complaints Physical Exam Vital Signs: Last Vital Signs Pulse 77 11/02/23 10:22 BP 130/68 11/02/23 10:22 Pulse Ox 98 11/02/23 10:22 Oxygen Delivery Method Nasal Cannula 11/02/23 10:22 Oxygen Flow Rate 2 11/02/23 10:22 BMI result Body Mass Index 23.2 Const General: comfortable, no acute distress, alert and awake Orientation/consciousness: patient oriented x3 HEENT Head: Yes normal to inspection General nose exam: No nasal polyps present, No nasal discharge present and Other nasal findings present (There is is small ulcerated lesion on the right side of the nasal septum,) Face and sinus: Yes sinuses nontender Mouth: oropharynx normal Throat: Yes posterior oropharynx normal Eyes General: appearance normal, both eyes and all related structures Neck Neck: Yes normal visual inspection, Yes no lymphadenopathy, Yes trachea midline and Yes no JVD Thyroid: Thyroid normal Chest Chest palpation & inspection: normal inspection of the chest, normal palpation of entire chest wall and no tenderness Resp Other: Percussion note hyper-resonant, breath sounds are distant with prolonged expiratory phase. There are no audible wheezes or rhonchi heard today. She has good breath sounds over the right upper lobe as well. Cardio Palpation: normal PMI Rate: regular rate Rhythm: regular rhythm Heart sounds: no gallops and no murmurs GI Palpation (GI): Soft to palpation, nontender, No hepatosplenomegaly present and no masses Auscultation: normal bowel sounds Back/Spine/Pelvis Thoracic/Lumbar Spine: thoracic and lumbar spine normal to inspection Skin General skin exam: no rashes or lesions noted Neuro General: patient oriented x3 and no focal motor deficits Cranial nerves: Yes CN's II-XII intact bilaterally Extrem General: Yes normal to inspection, Yes no clubbing, cyanosis or edema and Yes no calf tenderness Psych Speech and movement: Normal speech and movement present Affect: Sad affect present (With depressed mood) Results Reviewed Results Reviewed: XRAY CHEST on 10/07 23 IMPRESSION: * Improving right suprahilar consolidation. * Port-A-Cath remain in place properly positioned. * Blunting of left costophrenic angle probably small effusion unchanged. Assessment & Plan Assessment & Plan (1) COPD (chronic obstructive pulmonary disease): Comment: Patient does have chronic obstructive pulmonary disease related to her lifelong smoking. She is doing fairly well with her current regimen. Code(s): J44.9 - Chronic obstructive pulmonary disease, unspecified Category: Medical Qualifiers: COPD type: emphysema Emphysema type: unspecified Qualified Code(s): J43.9 - Emphysema, unspecified Plan: Continue Spiriva HandiHaler 1 capsule by inhalation daily Pulmicort flex haler 180 mcg 2 inhalations b.i.d. Albuterol HFA 2 puffs Q 4-6 hours p.r.n. (2) Allergic rhinitis: Comment: , MILD CHRONIC, RELATIVELY CONTROLLED. Code(s): J30.9 - Allergic rhinitis, unspecified Category: Medical Qualifiers: Allergic rhinitis trigger: unspecified Allergic rhinitis seasonality: unspecified Qualified Code(s): J30.9 - Allergic rhinitis, unspecified Plan: May use Claritin 10 mg once a day p.r.n. Flonase nasal spray 1 spray in each nostril daily (3) Nicotine dependence, cigarettes, uncomplicated: Comment: (current smoker - onset 15, 1/2-3/4ppd x 46yrs, 28pyh) Had quit smoking for a few months but now resumed smoking a few cigarettes every day. Code(s): F17.210 - Nicotine dependence, cigarettes, uncomplicated Category: Medical Plan: I recommended that she should use nicotine patch or nicotine buccal gum daily. Try to stop. Smoking completely Coding Level of Care Code Est Pt Level 3 (71004) Diagnoses Pulmonary emphysema, unspecified emphysema type J43.9 COPD type: emphysema Emphysema type: unspecified Allergic rhinitis, unspecified seasonality, unspecified trigger J30.9 Allergic rhinitis trigger: unspecified Allergic rhinitis seasonality: unspecified Nicotine dependence, cigarettes, uncomplicated F17.210
[2023-11-02 10:22] VITALS: BP 130/68; PULSE 77; O2SAT 98; BMI 23.2
== END 2023-11-02 10:39 | disposition home or self-care (01) ==
PROVIDERS: PCP Internal Medicine; Visit Provider Internal Medicine
DX: J43.9 Emphysema, unspecified (principal); J30.9 Allergic rhinitis, unspecified; F17.210 Nicotine dependence, cigarettes, uncomplicated
CPT/HCPCS: 99213

== ENCOUNTER → 2023-11-02 10:15 | Outpatient (BNVA) | payer OTHER, SELFPAY | PROVIDERS: PCP Internal Medicine; Visit Provider Internal Medicine | DX: J43.9 Emphysema, unspecified (principal); J30.9 Allergic rhinitis, unspecified; F17.210 Nicotine dependence, cigarettes, uncomplicated | CPT/HCPCS: 99212 ==

== ENCOUNTER 2023-11-05 11:50 | Outpatient (AMB) | payer OTHER, SELFPAY ==
[2023-11-05 12:06] VITALS: BP 100/62; PULSE 81; O2SAT 96; BMI 22.9
--- NOTE | 2023-11-05 12:06 | HO.NEPHOV_ITS ---
Vital Signs 11/05/23 12:06 Height 5 ft 2 in Weight 125 lb BMI 22.9 BP 100/62 Blood Pressure Location Rt brachial Position Sitting Pulse 81 Pulse Source Pulse Oximeter Pulse Oximetry (%) 96 Oxygen Delivery Method Room Air Intake Visit Reasons: Acute hyponatremia/ Conf Sample Supervisor Required: No Accompanied by: Daughter Allergies No Known Allergies [NO KNOWN ALLERGIES] Allergy (Unknown, Verified 11/05/23 12:08) unknown HPI Comments Details: 62 yo female with h/o bronchitis, history of IVDA, history of hepatitis-C, COPD, HTN, HLD, anemia, GERD, IBS, gastroparesis, anxiety, depression with recent admission to [facility] from 07/21-07/23 and again 07/25-07/28 due to COPD exacerbation and pneumonia Diagnosed with Small cell CA; Seen by Currently on Salt tabs. Was on 2 gm TID; Decreased to 1 gm TID on 09/09/23 10/15/23 Had hypokalemia and received IV KCL yesterday Now on PO KCL She had diarrhea - resolved now 11/05/2023. She is on chemotherapy for lung cancer. Last week the regimen was switched to carboplatin. She has had 1 cycle so far next cycle is scheduled for next week. No specific complaints today. Accompanied by family member [facility] Medical History Small cell lung cancer COPD (chronic obstructive pulmonary disease) Small cell lung cancer (~08/2023) MDD (major depressive disorder), recurrent episode, moderate Abnormal CT scan, chest Mass of right lung Lung mass Bronchitis Rectal prolapse Nicotine dependence, cigarettes, uncomplicated Nonrheumatic mitral (valve) insufficiency Pulmonary nodule History of hepatitis C Osteopenia (~2011) IV drug user Endocarditis of mitral valve (~11/2017) Mitral valve prolapse Mitral regurgitation Early satiety Paresthesia of left leg Allergic rhinitis Facet arthritis of lumbar region Cervical spondylosis Vitamin D deficiency Pure hypercholesterolemia Benign essential hypertension GERD (gastroesophageal reflux disease) Anxiety Surgical History History of bronchoscopy (~2023) History of liver biopsy (~2009) History of partial colectomy (~2014) History of hysteroscopy (~2010) History of colonoscopy (~2017) Family History Father Internal bleeding Mother Medical history unknown Social History Household Members: None Housing: House Housing Other:: lives alone with her cat Malena Do you presently have visiting nurse or other home services: No Alcohol intake: former Patient Tobacco Use Status: Never used Tobacco Tobacco use type: Cigarette Cigarette Packs Per Day: 0.5 Years Smoked: 45 years (onset 15, 1/2-3/4ppd x 44yrs, 28pyh) e-Cigarette/Vaping Use: Never Used Second Hand Smoke Exposure: Yes Substance Use Type: Marijuana Advance Directives Date on File: 12/18/21 service: No Current occupational status: unemployed Sexual orientation: Straight/Heterosexual Gender identity: Female Cognitive needs: No Hearing needs: No Vision needs: Yes Female Reproductive History Menstrual Age of Menarche: 14 Physical Exam Vital Signs: Last Vital Signs Pulse 81 11/05/23 12:06 BP 100/62 11/05/23 12:06 Pulse Ox 96 11/05/23 12:06 Oxygen Delivery Method Room Air 11/05/23 12:06 BMI result Body Mass Index 22.9 Const General: ill appearing Neck Neck: Yes supple Resp Auscultation: rhonchi Cardio Palpation: no palpable S3 Heart sounds: no rubs GI Palpation (GI): Soft to palpation Auscultation: normal bowel sounds Neuro Motor exam (neuro): no asterixis Results Reviewed Nephrology Results: Hgb 8.3 g/dl (12.0-16.0) L 11/05/23 WBC 15.6 X10*3/uL (4.8-10.8) H 11/05/23 Plt Count 15 X10*3/uL (160-400) L* 11/05/23 Sodium 137 mmol/L (135-145) 11/05/23 Potassium 4.2 mmol/L (3.3-5.1) 11/05/23 Chloride 103 mmol/L (96-108) 11/05/23 Carbon Dioxide 27 mmol/L (22-29) 11/05/23 BUN 12 mg/dL (9-16) 11/05/23 Creatinine 0.67 mg/dL (0.5-1.4) 11/05/23 Calcium 9.1 mg/dL (8.4-10.2) 11/05/23 Urine Protein Negative mg/dL (Neg-Trace) 10/04/23 Assessment & Plan Assessment & Plan (1) Small cell lung cancer: Onset Date: ~08/2023 Comment: (Right Upper Lobe - Clinical stage T3 N2, Stage IIIB - Dx 08/2023) Code(s): C34.90 - Malignant neoplasm of unspecified part of unspecified bronchus or lung Category: Medical (2) Acute hyponatremia: Code(s): E87.1 - Hypo-osmolality and hyponatremia Category: Medical (3) Hyponatremia: Code(s): E87.1 - Hypo-osmolality and hyponatremia Category: Medical Plan 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 Keep on potassium supplementation and monitor level Coding Level of Care Code Est Pt Level 4 (72285) Diagnoses Small cell lung cancer C34.90 Acute hyponatremia E87.1 Hyponatremia E87.1
== END 2023-11-05 12:18 | disposition home or self-care (01) ==
PROVIDERS: PCP Internal Medicine; Visit Provider Internal Medicine Hypertension Specialist
DX: C34.90 Malignant neoplasm of unspecified part of unspecified bronchus or lung (principal); E87.1 Hypo-osmolality and hyponatremia
CPT/HCPCS: 99214

== ENCOUNTER → 2023-11-05 11:50 | Outpatient (BNVA) | payer OTHER, SELFPAY | PROVIDERS: PCP Internal Medicine; Visit Provider Internal Medicine Hypertension Specialist | DX: E87.1 Hypo-osmolality and hyponatremia (principal); C34.90 Malignant neoplasm of unspecified part of unspecified bronchus or lung; B19.20 Unspecified viral hepatitis C without hepatic coma; I10 Essential (primary) hypertension | CPT/HCPCS: 99212 ==

== ENCOUNTER 2023-12-14 06:34 | Inpatient (IN) | payer OTHER, SELFPAY ==
[2023-12-14] VITALS (15 sets, daily range): BP systolic 122–167; BP diastolic 46–94; PULSE 55–92; RESP 14–18; TEMP 36.3–37.2; O2SAT 94–100; BMI 21.8
--- NOTE | ~2023-12-14 | CT_ITS ---
EXAMINATION: CT ABDOMEN AND PELVIS WITHOUT AND WITH CONTRAST CLINICAL INFORMATION: Lower GI bleeding. COMPARISON: CT scan of the abdomen and pelvis dated 03/09/2023. TECHNIQUE: Multidetector volumetric imaging was performed of the abdomen and pelvis before and after the IV administration of 85 mL of Omnipaque 350 intravenous contrast. Post contrast imaging was performed in 2 phases, including two-minute delay sequences. Sagittal and coronal reformatted images were obtained on the technologist's workstation. This CT examination was performed using dose optimization techniques as appropriate, variously including the following: *Automated exposure control *Adjustment of mA and/or kV according to patient size (this includes techniques or standardized protocols for targeted exams where dose is matched to indication/reason for exam; i.e. extremities or head) *Use of iterative reconstruction technique DLP: 810 mGy-cm FINDINGS: LUNG BASES: The visualized lung bases are unremarkable. LIVER, GALLBLADDER, AND BILIARY TREE: The liver is normal in size, shape, and attenuation. There is a small focal geographic area of hypodensity seen in segment IVb of the liver adjacent to the falciform ligament (series 10, image 60), not seen on recent prior CT scan and most consistent with an area of altered vascular perfusion or focal fatty infiltration. No focal hepatic lesion or biliary ductal dilatation is present. Tiny calcified layering gallstones are seen within the gallbladder. The gallbladder is otherwise unremarkable with no evidence of gallbladder wall thickening or obvious pericholecystic inflammatory changes. PANCREAS: Unremarkable SPLEEN: Tiny accessory splenule is seen adjacent to the spleen. Spleen otherwise unremarkable. ADRENAL GLANDS: Unremarkable KIDNEYS AND URETERS: The kidneys are normal in size, shape, and attenuation. There is subtle hyperdensity seen on the precontrast sequences in the medullary pyramids bilaterally with a few fine punctate calcifications also noted in the upper poles and interpolar region bilaterally, raising the suspicion of subtle medullary sponge kidney. No hydronephrosis or hydroureter seen. No perinephric stranding. There are a few tiny sub-0.5 cm size low attenuation masses in the kidneys bilaterally, likely representing scattered tiny cysts, which warrant no specific imaging follow-up. BLADDER: There is mild diffuse bladder wall thickening seen, possibly due to underdistention, though subtle cystitis cannot be entirely excluded. Clinical correlation requested. GASTROINTESTINAL TRACT: The patient is status post partial left lower colon resection with the anastomotic suture line appearing intact and unremarkable. A faint vascular blush seen in the rectosigmoid colon at the level of the anastomosis and extending to the anus, raising the suspicion of acute contrast extravasation and lower GI bleed (series 10, image 157 down to 173). There is also another subtle area of arterial blush seen in the hepatic flexure (series 10, image 76), suspicious for another area of subtle lower GI bleed. The small bowel loops are unremarkable. The appendix is unremarkable. ABDOMINAL WALL: There is a tiny fat-containing bilateral direct inguinal hernia. There is a tiny fat-containing umbilical hernia as well. LYMPH NODES: Normal VASCULAR: Abdominal aorta normal in caliber with moderate to severe atherosclerotic calcifications seen extending into the iliofemoral vessels. A circumaortic left renal vein is noted. PELVIC VISCERA: Trace amount of gas is seen within the vagina, likely due to exogenous introduction. Uterus and adnexa unremarkable. OSSEOUS STRUCTURES: Diffuse osteopenia. Severe biconcave compression deformity of the L5 vertebral body is seen with the retropulsion of the posterior elements, unchanged from prior exam. No acute fracture seen. Severe facet arthropathy seen throughout the mid and lower lumbar spine. CT/CT gi bleed abd pel wo/w IVcon IMPRESSION: 1. There are 2 areas of subtle arterial blush seen in the rectosigmoid colon at the level of the anastomosis and in the hepatic flexure, suspicious for lower GI bleed. 2. Mild diffuse bladder wall thickening, possibly due to underdistention, though subtle cystitis cannot be entirely excluded. 3. Subtle hypodensity in hepatic segment IVb, not seen on recent prior exam, most consistent with an area of altered vascular perfusion or focal fatty infiltration. 4. Other nonacute findings include cholelithiasis, bilateral tiny renal cysts, which warrant no additional imaging follow-up, sagittal medullary sponge kidney versus tiny calculi at the corticomedullary junction, osteopenia with severe biconcave compression deformity of the L5 vertebral body, tiny fat-containing umbilical and bilateral direct inguinal hernias, and moderate to severe atherosclerotic vascular disease. This critical result was discussed with Nataliya Bower M.D. 12/14/2023, 1:01 PM and it was ascertained that the content and urgency of this report was understood at the time of direct communication. Electronically signed by: Ronda June MD 12/14/2023 01:04 PM EDT
--- NOTE | 2023-12-14 06:36 | ED_ITS ---
HPI - General Adult General Chief complaint: GI Bleed Stated complaint: Stage 3 lung cancer, worsen rectal bleeding Time Seen by Provider: 12/14/23 06:36 Source: patient and EMS Limitations: no limitations History of Present Illness ED Provider: Santana CORONADO HPI narrative: This is a 63-year-old female history of small cell lung cancer, adjustment disorder, COPD, history of IVDA, hepatitis-C, mitral regurg, PVCs, hypertension, irritable bowel syndrome, anemia, anxiety currently not on anticoagulation presenting to the emergency department with concerns of rectal bleeding ongoing for the past few days worsening. She reports she typically has some rectal bleeding however this is much more than usual. Reports associated lower abdominal pain. She does report fatigue and malaise. Denies myalgias, chest pain, shortness breath, nausea, vomiting, headache, vision changes, dizziness and weakness Related Data Home Medications ?Medication ?Instructions ?Recorded ?Confirmed alosetron 0.5 mg tablet 1 mg PO DAILY@89907/22/23 12/14/23 cholecalciferol (vitamin D3) 50 50 mcg PO DAILY@89907/22/23 12/14/23 mcg (2,000 unit) capsule solifenacin 10 mg tablet 10 mg PO DAILY@89907/22/23 12/14/23 sucralfate 1 gram tablet (Carafate) 4 g PO DAILY@1200 07/25/23 12/14/23 budesonide 180 mcg/actuation 2 inh inhalation BID 09/28/23 12/14/23 breath activated powder inhaler (Pulmicort Flexhaler) sodium chloride 1,000 mg soluble 1,000 mg PO BID 10/15/23 12/14/23 tablet dexamethasone 4 mg tablet 4 mg PO WETH 10/21/23 12/14/23 metoclopramide HCl 5 mg tablet 5 mg PO TIDAC 12/14/23 12/14/23 Previous Rx's ?Medication ?Instructions ?Recorded albuterol sulfate 90 mcg/actuation 1 puff PO Q6H PRN shortness of 03/20/23 aerosol inhaler (Ventolin HFA) breath or wheezing 30 days #8.5 grams hydroxyzine HCl 50 mg tablet 50 mg PO BEDTIME #90 tabs 05/21/23 nicotine 14 mg/24 hr daily 1 patch transdermal Q24H smoking 08/17/23 transdermal patch 28 days #28 ea fluticasone propionate 50 1 spray intranasal DAILY 30 days 09/11/23 mcg/actuation nasal #16 grams spray,suspension mirtazapine 30 mg tablet 30 mg PO BEDTIME 90 days #90 tabs 09/14/23 ondansetron 8 mg disintegrating 8 mg PO Q8H PRN Nausea And 09/23/23 tablet Vomiting #30 tabs loperamide 2 mg capsule 2 mg PO Q6H PRN Diarrhea #14 caps 10/09/23 diphenoxylate-atropine 2.5 1 tab PO DAILY PRN Diarrhea #30 10/14/23 mg-0.025 mg tablet (Lomotil) tabs nicotine (polacrilex) 4 mg buccal 4 mg buccal Q8H PRN Anxiety #60 ea 10/14/23 lozenge pantoprazole 40 mg tablet,delayed 40 mg PO DAILY@0630 90 days #90 10/30/23 release tabs metoprolol succinate 50 mg 50 mg PO DAILY #90 tabs 11/22/23 tablet,extended release 24 hr tiotropium bromide 18 mcg capsule 1 cap inhalation DAILY #30 ea 11/23/23 with inhalation device (Spiriva with HandiHaler) clonazepam 0.5 mg tablet 0.5 mg PO BID PRN Anxiety #60 tabs 11/26/23 dextromethorphan-guaifenesin 10 10 ml PO TID PRN cough #237 mL 11/30/23 mg-100 mg/5 mL oral syrup potassium chloride 20 mEq 20 meq PO DAILY #30 tabs 12/08/23 tablet,extended release (K-Tab) oxycodone 5 mg tablet 5 mg PO Q6H PRN pain #30 tabs 12/10/23 Allergies Allergy/AdvReac Type Severity Reaction Status Date / Time No Known Allergies Allergy Unknown unknown Verified 12/14/23 06:50 [NO KNOWN ALLERGIES] Review of Systems 2 Review of Systems: Yes all other systems are reviewed and are negative PMFSH Past Medical History Attestation statement: The following information was validated with the patient. Source: old records reviewed and nursing notes reviewed Medical History Small cell lung cancer COPD (chronic obstructive pulmonary disease) Small cell lung cancer (~08/2023) MDD (major depressive disorder), recurrent episode, moderate Abnormal CT scan, chest Mass of right lung Lung mass Bronchitis Rectal prolapse Nicotine dependence, cigarettes, uncomplicated Nonrheumatic mitral (valve) insufficiency Pulmonary nodule History of hepatitis C Osteopenia (~2011) IV drug user Endocarditis of mitral valve (~11/2017) Mitral valve prolapse Mitral regurgitation Early satiety Paresthesia of left leg Allergic rhinitis Facet arthritis of lumbar region Cervical spondylosis Vitamin D deficiency Pure hypercholesterolemia Benign essential hypertension GERD (gastroesophageal reflux disease) Anxiety Surgical History History of bronchoscopy (~2023) History of liver biopsy (~2009) History of partial colectomy (~2014) History of hysteroscopy (~2010) History of colonoscopy (~2017) Family History Family History Father Internal bleeding Mother Medical history unknown Social History Social History Household Members: None Housing: House Housing Other:: lives alone with her cat Malena Do you presently have visiting nurse or other home services: No Alcohol intake: former Patient Tobacco Use Status: Never used Tobacco Tobacco use type: Cigarette Cigarette Packs Per Day: 0.5 Years Smoked: 44 years (onset 15, 1/2-3/4ppd x 44yrs, 28pyh) Smoked in Last 30 Days: Yes e-Cigarette/Vaping Use: Never Used Second Hand Smoke Exposure: Yes Use of substances other than those prescribed or required for medical reasons: No Substance Use Type: Marijuana Advance Directives: Yes Advance Directives on File: Yes Advance Directives Date on File: 09/23/23 Do you have a plan to hurt others: No Plan Patient : No service: No Current occupational status: unemployed Sexual orientation: Straight/Heterosexual Gender identity: Female Cognitive needs: No Hearing needs: No Vision needs: Yes Physical Exam ED Vital Signs: Vital Signs - 24 hr 12/14/23 06:47 12/14/23 08:00 12/14/23 09:39 Temperature 98.0 F 97.9 F Pulse Rate 92 73 68 Respiratory Rate 16 17 Blood Pressure 163/94 H 138/72 145/66 H Pulse Oximetry 100 98 Oxygen Delivery Method Nasal Cannula Nasal Cannula Oxygen Flow Rate 2 12/14/23 10:00 12/14/23 11:02 12/14/23 13:50 Temperature 98.2 F 97.8 F 98.0 F Pulse Rate 61 64 62 Respiratory Rate 14 18 14 Blood Pressure 136/46 L 147/67 H 139/75 Pulse Oximetry 95 100 Oxygen Delivery Method Nasal Cannula Nasal Cannula Oxygen Flow Rate 2 2 12/14/23 14:10 Temperature 98.9 F Pulse Rate 55 Respiratory Rate 16 Blood Pressure 123/71 Pulse Oximetry Oxygen Delivery Method Oxygen Flow Rate BMI result Body Mass Index 21.8 vss Appearance: Alert.? Oriented X3.? No acute distress.? Head: Normocephalic, atraumatic, no step-offs or deformities Eyes: Pupils equal, round and reactive to light.? ENT: Pharynx normal.? Neck: Normal inspection.? Neck supple.? CVS: Normal heart rate and rhythm.? Pulses normal.? Respiratory: No respiratory distress.? Breath sounds normal.? Abdomen: Soft and nontender.? Skin: Skin warm and dry.? Normal skin color.? Normal skin turgor.? Extremities: No lower extremity edema.? No calf ttp. Global weakness Neuro: Oriented X 3.? No motor deficit.? No sensory deficit. CN 2-12 intact Course Reevaluation(s) Reevaluation #1: CBC with marked leukocytosis 26.9. Also noted to have a normocytic anemia. At this time infection suspected blood cultures, lactic acid and empiric antibiotics ordered. Chemistry with low sodium 133 IV fluids ordered. Potassium 3.2 oral potassium ordered and given. Patient's BUN slightly elevated likely secondary to poor p.o. intake and dehydration. Magnesium 1.3 IV Mag will be repleted. BNP within normal limits. UA and ABD scan pending. Time: 07:53 Reevaluation #2: Leukocytosis likely from Neulasta spoke to patients oncologist, she received it on 12/11/2023 last. Patient hesitant to recieve a CT due to radiation will speak to her and use shared decision making. Time: 10:06 Reevaluation #3: Patient decided to get the CT scan. In the meantime her urine did results she does have evidence of infection. She was covered with Zosyn. CT abdomen still pending however patient will be admitted to the hospitalist for further evaluation and treatment. Time: 12:40 Additional Reevaluation(s): Discussed this case w/ Dr. Navarrete IR --> prefers obs --> management if needed but no need for emergent management now ( admission, bowel prep and scope) Discussed this case w/ Dr. Mendieta --> no need for surgical intervention right now recommends IR consult. Waiting for GI response as long as agreeable plan to admit then follow by GI, surgery, IR. Medications Administered Discontinued Medications Generic Name Dose Route Start Last Admin Trade Name Freq PRN Reason Stop Dose Admin Magnesium Sulfate 2 gm in 50 mls @ 25 mls/hr 12/14/23 07:28 12/14/23 09:00 Magnesium Sulfate/H2o IV 12/14/23 09:27 Infused ONCE ONE Infusion Sodium Chloride 1,619.31 mls @ 1,619.31 mls/hr 12/14/23 07:51 12/14/23 09:35 Ns 30 ml/kg infuse over 1 hr (1619.31 ml) 12/14/23 08:50 Infused IV Infusion .Q1H STA Piperacillin Sod/Tazobactam 50 mls @ 100 mls/hr 12/14/23 07:51 12/14/23 08:45 Sod 3.375 gm/ Sodium Chloride IV 12/14/23 08:20 Infused ONCE ONE Infusion Sodium Chloride 100 mls @ 100 mls/hr 12/14/23 13:13 12/14/23 13:55 Ns IV 12/14/23 14:12 100 mls/hr ONCE ONE Administration Iohexol 80 ml 12/14/23 10:35 12/14/23 10:35 Iohexol 350 Mg/Ml 75 Ml Infus..Btl IV 12/14/23 10:36 80 ml ONCE ONE Administration Morphine Sulfate 4 mg 12/14/23 10:05 12/14/23 11:01 Morphine Sulfate 4 Mg/Ml Cartridge IVPUSH 12/14/23 10:06 4 mg ONCE ONE Administration Protocol Potassium Chloride 40 meq 12/14/23 07:30 12/14/23 07:45 Potassium Chloride Packet 20 Meq Packet PO 12/14/23 07:31 40 meq ONCE ONE Administration Medical Decision Making Medical Decision Making MDM Narrative: 63-year-old female presents with rectal bleeding ongoing for the past few days. Not on blood thinners. A/c lower abd discomfort also reported Physical exam with rectal bleeding and lower diffuse abd discomfort History and physical exam concerning for lower GI bleed, this could be secondary to malignancy. Will rule out intra-abdominal etiology such as possible diverticulitis. Unlikely acute abdomen however. Will rule out metabolic derangements, acute blood loss anemia. Will also rule out metastasis. Plan labs, imaging, type and screen, OBS, urine Differential Diagnosis Differential Diagnoses: The differential diagnosis associated with the presentation includes History and physical exam concerning for lower GI bleed, this could be secondary to malignancy. Will rule out intra-abdominal etiology such as possible diverticulitis. Unlikely acute abdomen however. Will rule out metabolic derangements, acute blood loss anemia. Will also rule out metastasis. Admission/Observation Consideration of admission/observation: Escalation of care including admission/observation considered Possible Lab Data MDM Lab Attestation statement: I reviewed the patient's lab results. 12/14/23 12:34 12/14/23 06:55 Labs: Lab Results 12/14/23 12/14/23 12/14/23 Range/Units 06:55 06:59 07:03 WBC 26.9 H (4.8-10.8) X10*3/uL RBC 3.14 L (4.20-5.50) X10*6/uL Hgb 10.1 L (12.0-16.0) g/dl Hct 29.0 L (37.0-47.0) % MCV 92.4 (80.0-98.0) fL MCH 32.2 (27.0-33.0) pg MCHC 34.8 (31.0-35.0) g/dl RDW 20.0 H (11.0-16.0) % Plt Count 68 L D (160-400) X10*3/uL MPV 9.5 (9.4-12.3) fL Immature Gran % (Auto) Cancelled Neut % (Auto) Cancelled Lymph % (Auto) Cancelled [place] % (Auto) Cancelled Eos % (Auto) Cancelled Baso % (Auto) Cancelled Lymph # (Auto) Cancelled [place] # (Auto) Cancelled Eos # (Auto) Cancelled Baso # (Auto) Cancelled Abs Immat Gran (auto) Cancelled Absolute Neuts (auto) Cancelled Absolute Nucleated RBC 0.000 (0.0-0.012) X10*3/uL Nucleated RBC % (auto) 0.0 (0.0-0.2) /100WBC Neutrophils % (Manual) 89 H (45-73) % Band Neutrophils % 4 (3-5) % Lymphocytes % (Manual) 5 L (20-40) % Eosinophils % (Manual) 1 (0-4) % Myelocytes % 1 % Abs Neuts (Manual) 25.0 H (2.0-8.3) X10*3/uL Lymphocytes # (Manual) 1.3 (1.2-4.9) X10*3/uL Eosinophils # (Manual) 0.3 (0.0-0.4) X10*3/uL Myelocytes # 0.3 X10*/uL Toxic Vacuolation PRESENT Dohle Bodies PRESENT Platelet Estimate DECREASED (NORMAL) Plt Morphology Comment NORMAL RBC Morphology NOTED Microcytosis 1+ (5-14) /OIF Tear Drop Cells 1+ (0-2) /OIF Schistocytes 1+ (0-2) /OIF PT 13.2 (11.1-13.3) SEC INR 1.1 (0.9-1.1) Sodium 133 L (135-145) mmol/L Potassium 3.2 L D (3.3-5.1) mmol/L Chloride 98 (96-108) mmol/L Carbon Dioxide 22 (22-29) mmol/L Anion Gap 16 (12-20) BUN 18 H (9-16) mg/dL Creatinine 0.67 (0.5-1.4) mg/dL Estim Creat Clear Calc 67.1 Estimated GFR > 60 Random Glucose 121 H (60-115) mg/dL Lactic Acid (0.5-2.0) mmol/L Calcium 8.8 (8.4-10.2) mg/dL Magnesium 1.3 L* (1.6-2.6) mg/dL Total Bilirubin 0.9 (0.0-1.0) mg/dL AST 12 (5-31) U/L ALT < 5 (0-31) U/L Alkaline Phosphatase 105 (39-117) U/L B-Natriuretic Peptide 85 (<100) pg/mL Total Protein 6.2 L (6.5-8.0) g/dL Albumin 4.0 (3.5-5.0) g/dL Urine Color Urine Appearance Urine pH (5.0-9.0) Ur Specific [place] (1.005-1.025) Urine Protein (Neg-Trace) mg/dL Urine Glucose (UA) (Negative) mg/dL Urine Ketones (Negative) mg/dL Urine Blood (Negative) Urine Nitrite (Negative) Ur Leukocyte Esterase (Negative) Urine RBC (0-2) /HPF Urine WBC (0-5) /HPF Ur Squamous Epith Cells (0-2) /HPF Urine Bacteria (None Seen) Hyaline Casts (0-2) /LPF Stool Occult Blood POSITIVE (NEGATIVE) Blood Type B Positive Antibody Screen NEGATIVE Crossmatch (AHG) See Detail 12/14/23 12/14/23 12/14/23 Range/Units 08:06 11:01 12:34 WBC 20.0 H (4.8-10.8) X10*3/uL RBC 2.65 L (4.20-5.50) X10*6/uL Hgb 8.6 L (12.0-16.0) g/dl Hct 24.9 L (37.0-47.0) % MCV 94.0 (80.0-98.0) fL MCH 32.5 (27.0-33.0) pg MCHC 34.5 (31.0-35.0) g/dl RDW 20.2 H (11.0-16.0) % Plt Count 56 L (160-400) X10*3/uL MPV 9.6 (9.4-12.3) fL Immature Gran % (Auto) Neut % (Auto) Lymph % (Auto) [place] % (Auto) Eos % (Auto) Baso % (Auto) Lymph # (Auto) [place] # (Auto) Eos # (Auto) Baso # (Auto) Abs Immat Gran (auto) Absolute Neuts (auto) Absolute Nucleated RBC 0.000 (0.0-0.012) X10*3/uL Nucleated RBC % (auto) 0.0 (0.0-0.2) /100WBC Neutrophils % (Manual) 83 H (45-73) % Band Neutrophils % 1 L (3-5) % Lymphocytes % (Manual) 13 L (20-40) % Eosinophils % (Manual) 3 (0-4) % Myelocytes % % Abs Neuts (Manual) 16.8 H (2.0-8.3) X10*3/uL Lymphocytes # (Manual) 2.6 (1.2-4.9) X10*3/uL Eosinophils # (Manual) 0.6 H (0.0-0.4) X10*3/uL Myelocytes # X10*/uL Toxic Vacuolation PRESENT Dohle Bodies PRESENT Platelet Estimate DECREASED (NORMAL) Plt Morphology Comment NORMAL RBC Morphology NOTED Microcytosis 1+ (5-14) /OIF Tear Drop Cells 1+ (0-2) /OIF Schistocytes 1+ (0-2) /OIF PT (11.1-13.3) SEC INR (0.9-1.1) Sodium (135-145) mmol/L Potassium (3.3-5.1) mmol/L Chloride (96-108) mmol/L Carbon Dioxide (22-29) mmol/L Anion Gap (12-20) BUN (9-16) mg/dL Creatinine (0.5-1.4) mg/dL Estim Creat Clear Calc Estimated GFR Random Glucose (60-115) mg/dL Lactic Acid 1.2 (0.5-2.0) mmol/L Calcium (8.4-10.2) mg/dL Magnesium (1.6-2.6) mg/dL Total Bilirubin (0.0-1.0) mg/dL AST (5-31) U/L ALT (0-31) U/L Alkaline Phosphatase (39-117) U/L B-Natriuretic Peptide (<100) pg/mL Total Protein (6.5-8.0) g/dL Albumin (3.5-5.0) g/dL Urine Color Yellow Urine Appearance Clear Urine pH 7.5 (5.0-9.0) Ur Specific [place] >= 1.030 H (1.005-1.025) Urine Protein Negative (Neg-Trace) mg/dL Urine Glucose (UA) Negative (Negative) mg/dL Urine Ketones Negative (Negative) mg/dL Urine Blood Trace H (Negative) Urine Nitrite Positive H (Negative) Ur Leukocyte Esterase Moderate (2+) H (Negative) Urine RBC 0-2 (0-2) /HPF Urine WBC >50 H (0-5) /HPF Ur Squamous Epith Cells 0-2 (0-2) /HPF Urine Bacteria Trace (None Seen) Hyaline Casts 0-2 (0-2) /LPF Stool Occult Blood (NEGATIVE) Blood Type Antibody Screen Crossmatch (AHG) Independent Interpretation I performed an independent interpretation of an: EKG (Vent. Rate : 068 BPM Atrial Rate : 068 BPM P-R Int : 174 ms QRS Dur : 100 ms QT Int : 418 ms P-R-T Axes : 058 -40 039 degrees QTc Int : 444 ms Normal sinus rhythm Left axis deviation Minimal voltage criteria for LVH, may be normal variant ( [place] product ) Abnormal E) and CT Scan ( CT/CT gi bleed abd pel wo/w IVcon IMPRESSION: 1. There are 2 areas of subtle arterial blush seen in the rectosigmoid colon at the level of the anastomosis and in the hepatic flexure, suspicious for lower GI bleed. 2. Mild diffuse bladder wall thickening, possibly due to underdistention, though) Radiology Impression Discussion of test interpretation with radiology: I have reviewed the radiologist's reading. Independent Historian Clinical information obtained from an independent historian. History obtained from or confirmed by: EMS External Record Review External record reviewed: Inpatient record, Office record, Outpatient record, Prior outpatient labs, Prior outpatient radiology, Primary care record and Outside ED record Chronic Conditions Patient?s care impacted by: Hypertension, Cancer and Other (COPD, hep C, adjustment D/o, GERD ) Critical Care Time Critical Care Time Critical Care Time: Yes Total Critical Care Time: 45 Attestation: I attest to this time spent taking care of the patient, obtaining history, physical, reviewing labs, imaging, speaking to my attending, speaking to specialist. Discharge Plan Discharge Clinical Impression: Acute lower GI bleeding, Abdominal pain, Acute UTI Patient Disposition: Admitted As Inpatient Prescriptions: No Action albuterol sulfate [Ventolin HFA] 90 mcg/actuation HFA aerosol inhaler 1 puff PO Q6H PRN (Reason: shortness of breath or wheezing) 30 Days Qty: 8.5 3RF hydroxyzine HCl 50 mg tablet 50 mg PO BEDTIME Qty: 90 1RF fluticasone propionate 50 mcg/actuation spray,suspension 1 spray intranasal DAILY 30 Days Qty: 16 2RF mirtazapine 30 mg tablet 30 mg PO BEDTIME 90 Days Qty: 90 1RF pantoprazole 40 mg tablet,delayed release (DR/EC) 40 mg PO DAILY@0630 90 Days Qty: 90 0RF metoprolol succinate 50 mg tablet extended release 24 hr 50 mg PO DAILY Qty: 90 1RF tiotropium bromide [Spiriva with HandiHaler] 18 mcg capsule, w/inhalation device 1 cap inhalation DAILY Qty: 30 5RF oxycodone 5 mg tablet 5 mg PO Q6H PRN (Reason: pain) Qty: 30 0RF alosetron 0.5 mg tablet 1 mg PO DAILY@0900 solifenacin 10 mg tablet 10 mg PO DAILY@0900 cholecalciferol (vitamin D3) 50 mcg (2,000 unit) capsule 50 mcg PO DAILY@0900 Rx Instructions: 1 capsule Orally Once a day sucralfate [Carafate] 1 gram tablet 4 g PO DAILY@1200 ondansetron 8 mg Tablet,Disintegrating 8 mg PO Q8H PRN (Reason: Nausea And Vomiting) Qty: 30 3RF nicotine (polacrilex) 4 mg Lozenge 4 mg BUCCAL Q8H PRN (Reason: Anxiety) Qty: 60 0RF diphenoxylate-atropine [Lomotil] 2.5-0.025 mg Tablet 1 tab PO DAILY PRN (Reason: Diarrhea) Qty: 30 0RF dexamethasone 4 mg tablet 4 mg PO WETH Rx Instructions: for chemo treatments clonazepam 0.5 mg Tablet 0.5 mg PO BID PRN (Reason: Anxiety) Qty: 60 0RF dextromethorphan-guaifenesin 10-100 mg/5 mL Syrup 10 ml PO TID PRN (Reason: cough) Qty: 237 0RF potassium chloride [K-Tab] 20 mEq Tablet Extended Release 20 meq PO DAILY Qty: 30 0RF Pulmicort Flexhaler 180 mcg/actuation aerosol powdr breath activated 2 inh INHALATION BID loperamide 2 mg Capsule 2 mg PO Q6H PRN (Reason: Diarrhea) Qty: 14 0RF metoclopramide HCl 5 mg tablet 5 mg PO TIDAC nicotine 14 mg/24 hr patch 24 hour 1 patch transdermal Q24H MDD smoking 28 Days Qty: 28 2RF sodium chloride 1,000 mg tablet,soluble 1,000 mg PO BID Print Language: Colombian
[2023-12-14 07:09] LABS: Hemoglobin 10.1 g/dl (12.0-16.0); Mean Corpuscular HGB Conc 34.8 g/dl (31.0-35.0); Mean Corpuscular Hemoglobin 32.2 pg (27.0-33.0); Mean Corpuscular Volume 92.4 fL (80.0-98.0); Mean Platelet Volume 9.5 fL (9.4-12.3); Platelet Count 68 X10*3/uL (160-400); Red Blood Count 3.14 X10*6/uL (4.20-5.50)
[2023-12-14 07:10] LABS: WBC ABN SCTR FOR CBC 1
[2023-12-14 07:16] LABS: OBS Int Ctl Valid YES; OBS1 POSITIVE (NEGATIVE)
[2023-12-14 07:20] LABS: INTERNATIONAL NORM RATIO 1.1 (0.9-1.1); Prothrombin Time 13.2 SEC (11.1-13.3)
[2023-12-14 07:28] LABS: Alanine Aminotransferase < 5 U/L (0-31); Alkaline Phosphatase 105 U/L (39-117); Anion Gap 16 (12-20); Aspartate Amino Transferase 12 U/L (5-31); Bilirubin Total 0.9 mg/dL (0.0-1.0); Blood Urea Nitrogen 18 mg/dL (9-16); Calcium 8.8 mg/dL (8.4-10.2); Carbon Dioxide 22 mmol/L (22-29); Chloride 98 mmol/L (96-108); Creatinine Clr Calc Pharmacy 67.1; Estimated Glomerular Filt Rate > 60; Glucose Random 121 mg/dL (60-115); Magnesium 1.3 mg/dL (1.6-2.6); Potassium 3.2 mmol/L (3.3-5.1); Sodium 133 mmol/L (135-145); Total Protein 6.2 g/dL (6.5-8.0)
[2023-12-14 07:32] LABS: B Type Natriuretic Peptide 85 pg/mL (<100)
[2023-12-14 07:44] LABS: Band Neutrophils Percent 4 % (3-5); Eosinophils Percent Manual 1 % (0-4); Lymphocytes Percent Manual 5 % (20-40); Myelocytes Percent 1 %; Neutrophils Percent Manual 89 % (45-73)
[2023-12-14] MEDS: Potassium Chloride Packet 20 MEQ PACKET 40 MEQ PO (07:45)
[2023-12-14] MEDS: Magnesium Sulfate/H2O 2 GM/50 ML PIGGYBACK IV (07:46)
[2023-12-14 07:47] LABS: Dohle Bodies PRESENT; Microcytosis 1+ (5-14) /OIF; Platelet Estimate DECREASED (NORMAL); RBC Morphology NOTED; Schistocytes 1+ (0-2) /OIF; Tear Drop Cells 1+ (0-2) /OIF; Toxic Vacuolation PRESENT
[2023-12-14 07:48] LABS: Eosinophils Absolute Manual 0.3 X10*3/uL (0.0-0.4); Lymphocytes Absolute Manual 1.3 X10*3/uL (1.2-4.9); Myelocytes Absolute 0.3 X10*/uL; Platelet Morphology Comment NORMAL; White Blood Count 26.9 X10*3/uL (4.8-10.8)
--- NOTE | 2023-12-14 07:55 | ECG_ITS ---
Test Reason : LOWER GI BLEED Blood Pressure : / mmHG Vent. Rate : 068 BPM Atrial Rate : 068 BPM P-R Int : 174 ms QRS Dur : 100 ms QT Int : 418 ms P-R-T Axes : 058 -40 039 degrees QTc Int : 444 ms Normal sinus rhythm Left axis deviation Minimal voltage criteria for LVH, may be normal variant ( [place] product ) Abnormal ECG When compared with ECG of 04-OCT-2023 08:07, No significant change was found Referred By: Nataliya Bower Electronically Signed By:URIEL JONES
[2023-12-14] MEDS: 0.9 % Sodium Chloride 1,619.31 ML 1619.31 ML IV (08:09)
[2023-12-14] MEDS: Piperacillin Sodium/Tazobactam 3.375 GM in 0.9 % Sodium Chloride 50 ML IV (08:17)
[2023-12-14 08:29] LABS: Lactic Acid 1.2 mmol/L (0.5-2.0)
--- NOTE | 2023-12-14 08:56 | PC.NURSE ---
antibiotic was hung late as another IV line had to be done.
[2023-12-14] MEDS: iohexoL 350 MG/ML 75 ML INFUS..BTL 80 ML IV (10:35)
[2023-12-14] MEDS: Morphine Sulfate 4 MG/ML CARTRIDGE IVPUSH (11:01)
[2023-12-14 11:08] LABS: Appearance Urine Clear; Color Urine Yellow; Glucose Urine UA Negative (Negative); Leukocyte Esterase Urine Moderate (2+) (Negative); Nitrite Urine Positive (Negative); PH 7.5 (5.0-9.0); Specific Gravity - Urine >= 1.030 (1.005-1.025); UMIC TRIGGER UACC YES; Urine Blood Trace (Negative); Urine Ketones Negative (Negative); Urine Protein Negative (Neg-Trace)
[2023-12-14 11:11] LABS: Bacteria Urine Trace (None Seen); Hyaline Casts Urine 0-2 /LPF (0-2); RBC Urine 0-2 /HPF (0-2); Squamous Epithelial Cell Urine 0-2 /HPF (0-2); UACC Culture Trigger YES; WBC Urine >50 /HPF (0-5)
--- NOTE | 2023-12-14 11:13 | PC.NURSE ---
this RN resumed care of pt at 1100. pt c/o increase in lower abd pain - medication administered per provider order. effectiveness pending. bedside commode utilized - urine obtained/sent to lab. strong/steady/independent gait noted w/o use of assistive devices noted. pt remains on 2L via NC (baseline) - resting in no apparent distress. vss and up to date. nsr on the cardiac nurse practitioner. no sob/wob noted. respirations even/unlabored. plan of care ongoing. call miller placed within reach.
[2023-12-14 12:40] LABS: Hematocrit 24.9 % (37.0-47.0); Hemoglobin 8.6 g/dl (12.0-16.0); Mean Corpuscular HGB Conc 34.5 g/dl (31.0-35.0); Mean Corpuscular Hemoglobin 32.5 pg (27.0-33.0); Mean Platelet Volume 9.6 fL (9.4-12.3); Red Blood Count 2.65 X10*6/uL (4.20-5.50); Red Cell Distribution Width 20.2 % (11.0-16.0)
[2023-12-14 12:41] LABS: Platelet Count 56 X10*3/uL (160-400)
--- NOTE | 2023-12-14 12:47 | P.HPHOSP_ITS ---
<Statement entered by Jovanni Bergman MD - 12/14/23 17:56> the patient was seen and evaluated with YEVGENIY Fernandez. I agree with her note, assessment and plan with the following. In summary, A 63 years old lady with PMH of SCLC, COPD, SIADH, Hep C, Hx LGIB who presents to ED with rectal bleeding. found to have acute on chronic anemia. # Acute symptomatic blood loss anemia 2/2 LGIB Hb dropped to 8.[address] abdomen/pelvis shows 2 areas in the rectosigmoid colon at the level of the anastomosis in the hepatic flexure suspicious for lower GI bleed IR and General surgery, and GI following Consider Colonoscopy follow H&H, transfuse as needed Rest of evaluations by PA note. History of Present Illness Date of Service: 12/14/23 Attending physician on admission: Jovanni Bergman Chief Complaint: rectal bleeding 63-year-old female with history of COPD, metastatic small-cell lung cancer on carboplatin/etoposide with atezolizumab last infusion 12/07 with last Neulasta on 12/09 following with NICKOLAS Sandoval, history of hepatitis-C, history of IV cocaine abuse, hypertension, hyperlipidemia, GERD, IBS, rectal prolapse history of lower GI bleed, chronic iron-deficiency anemia who is a current everyday smoker smoking about 4-5 cigarettes on a daily basis presented to the ED for evaluation of BRBPR. She states she often has rectal bleeding from rectal prolapse following chemotherapy, but feels was bleeding more this morning compared to prior episodes with slight stream of blood from rectum this morning. Has not has any overt bleeding in about 6 hours. No abd pain, n/v/d, melena. No fevers, chills, dysuria, hematuria, increased urinary frequency. In the ED, pt hemodynamically stable. Leukocytosis 20.0, H/H10.1/29.0--> 8.6/24.9% (was also given 1.6L IVF prior to repeat labs, ?hemodilution), PLT 56. Renal function baseline, sodium 133, potassium 3.2. Magnesium 1.3, lytes otherwise normal. Stool occult blood positive. CT abdomen/pelvis shows 2 areas of subtle arterial blush seen in the rectosigmoid colon at the level of the anastomosis in the hepatic flexure suspicious for lower GI bleed is also mild diffuse bladder wall thickening possibly due to underdistention though subtle cystitis can not be excluded there is a hypodensity in the hepatic segment IV B that see the priors, likely consistent with an area of altered vascular perfusion or focal fatty infiltration among other nonacute findings. In the ED, received IV Zosyn, 1.6 L IVF given initial suspicion for sepsis, and transfused 1 unit packed red blood cells. Was referred for radiation but was not deemed a candidate. Review of Systems 2 Review of Systems: Yes all other systems are reviewed and are negative [facility] Medical History Small cell lung cancer COPD (chronic obstructive pulmonary disease) Small cell lung cancer (~08/2023) MDD (major depressive disorder), recurrent episode, moderate Abnormal CT scan, chest Mass of right lung Lung mass Bronchitis Rectal prolapse Nicotine dependence, cigarettes, uncomplicated Nonrheumatic mitral (valve) insufficiency Pulmonary nodule History of hepatitis C Osteopenia (~2011) IV drug user Endocarditis of mitral valve (~11/2017) Mitral valve prolapse Mitral regurgitation Early satiety Paresthesia of left leg Allergic rhinitis Facet arthritis of lumbar region Cervical spondylosis Vitamin D deficiency Pure hypercholesterolemia Benign essential hypertension GERD (gastroesophageal reflux disease) Anxiety Family History Father Internal bleeding Mother Medical history unknown Surgical History History of bronchoscopy (~2023) History of liver biopsy (~2009) History of partial colectomy (~2014) History of hysteroscopy (~2010) History of colonoscopy (~2017) Social History Household Members: None Housing: House Housing Other:: lives alone with her cat Malena Do you presently have visiting nurse or other home services: No Alcohol intake: former Patient Tobacco Use Status: Never used Tobacco Tobacco use type: Cigarette Cigarette Packs Per Day: 0.5 Years Smoked: 45 years (onset 15, 1/2-3/4ppd x 44yrs, 28pyh) Smoked in Last 30 Days: Yes e-Cigarette/Vaping Use: Never Used Second Hand Smoke Exposure: Yes Use of substances other than those prescribed or required for medical reasons: No Substance Use Type: Marijuana Advance Directives: Yes Advance Directives on File: Yes Advance Directives Date on File: 09/23/23 Do you have a plan to hurt others: No Plan Patient : No service: No Current occupational status: unemployed Sexual orientation: Straight/Heterosexual Gender identity: Female Cognitive needs: No Hearing needs: No Vision needs: Yes Meds Allergies Allergy/AdvReac Type Severity Reaction Status Date / Time No Known Allergies Allergy Unknown unknown Verified 12/14/23 06:50 [NO KNOWN ALLERGIES] Home Medications ?Medication ?Instructions ?Recorded ?Confirmed ?Last Taken ?Type alosetron 0.5 mg tablet 1 mg PO DAILY@89907/22/23 12/14/23 12/14/23 History cholecalciferol (vitamin D3) 50 50 mcg PO DAILY@89907/22/23 12/14/23 12/14/23 History mcg (2,000 unit) capsule solifenacin 10 mg tablet 10 mg PO DAILY@89907/22/23 12/14/23 12/14/23 History sucralfate 1 gram tablet (Carafate) 4 g PO DAILY@1200 07/25/23 12/14/23 09/28/23 History budesonide 180 mcg/actuation 2 inh inhalation BID 09/28/23 12/14/23 09/28/23 History breath activated powder inhaler (Pulmicort Flexhaler) sodium chloride 1,000 mg soluble 1,000 mg PO BID 10/15/23 12/14/23 12/14/23 History tablet dexamethasone 4 mg tablet 4 mg PO WETH 10/21/23 12/14/23 Unknown History metoclopramide HCl 5 mg tablet 5 mg PO TIDAC 12/14/23 12/14/23 12/14/23 History Physical Exam 2 Vital Signs and Narrative: Vital Signs: Last Vital Signs Temp 97.8 F 12/14/23 11:02 Pulse 64 12/14/23 11:02 Resp 18 12/14/23 11:02 BP 147/67 H 12/14/23 11:02 Pulse Ox 100 12/14/23 11:02 O2 Del Method Nasal Cannula 12/14/23 11:02 O2 Flow Rate 2 12/14/23 11:02 Oxygen Flow Rate 2 09/09/24 06:47 BMI result Body Mass Index 21.8 Constitutional - Awake and Alert, No apparent distress Eyes - PERRLA, EOMI Cardiovascular - S1S2, RRR, No edema Respiratory - Normal lung expansion, Normal respiratory effort, No respiratory distress, CTA bilaterally Gastrointestinal - NT / ND; +BS; No rebound or guarding. External hemorrhoids with open ulceration, but no active prolapse. Rectal exam performed by ED provider Extremities - no calf tenderness bilaterally, no swelling Skin - Warm/Dry Neurological - Alert & oriented x3 Psychological - Appropriate affect Results Labs 12/14/23 12:34 12/14/23 06:55 Labs: Laboratory Results - last 24 hr 12/14/23 12/14/23 12/14/23 06:55 06:59 07:03 MCV 92.4 MCH 32.2 MCHC 34.8 RDW 20.0 H Plt Count 68 L D MPV 9.5 Immature Gran % (Auto) Cancelled Neut % (Auto) Cancelled Lymph % (Auto) Cancelled Fa[place] % (Auto) Cancelled Eos % (Auto) Cancelled Baso % (Auto) Cancelled Lymph # (Auto) Cancelled [place]ner # (Auto) Cancelled Eos # (Auto) Cancelled Baso # (Auto) Cancelled Abs Immat Gran (auto) Cancelled Absolute Neuts (auto) Cancelled Absolute Nucleated RBC 0.000 Nucleated RBC % (auto) 0.0 Neutrophils % (Manual) 89 H Band Neutrophils % 4 Lymphocytes % (Manual) 5 L Eosinophils % (Manual) 1 Myelocytes % 1 Abs Neuts (Manual) 25.0 H Lymphocytes # (Manual) 1.3 Eosinophils # (Manual) 0.3 Myelocytes # 0.3 Toxic Vacuolation PRESENT Dohle Bodies PRESENT Platelet Estimate DECREASED Plt Morphology Comment NORMAL RBC Morphology NOTED Microcytosis 1+ (5-14) Tear Drop Cells 1+ (0-2) Schistocytes 1+ (0-2) PT 13.2 INR 1.1 Anion Gap 16 Estim Creat Clear Calc 67.1 Estimated GFR > 60 Random Glucose 121 H Lactic Acid Calcium 8.8 Magnesium 1.3 L* Total Bilirubin 0.9 AST 12 ALT < 5 Alkaline Phosphatase 105 B-Natriuretic Peptide 85 Total Protein 6.2 L Albumin 4.0 Urine Color Urine Appearance Urine pH Ur Specific [place] Urine Protein Urine Glucose (UA) Urine Ketones Urine Blood Urine Nitrite Ur Leukocyte Esterase Urine RBC Urine WBC Ur Squamous Epith Cells Urine Bacteria Hyaline Casts Stool Occult Blood POSITIVE Blood Type B Positive Antibody Screen NEGATIVE Crossmatch (AHG) See Detail 12/14/23 12/14/23 12/14/23 08:06 11:01 12:34 MCV 94.0 MCH 32.5 MCHC 34.5 RDW 20.2 H Plt Count 56 L MPV 9.6 Immature Gran % (Auto) Neut % (Auto) Lymph % (Auto) [place] % (Auto) Eos % (Auto) Baso % (Auto) Lymph # (Auto) Fa[place]ner # (Auto) Eos # (Auto) Baso # (Auto) Abs Immat Gran (auto) Absolute Neuts (auto) Absolute Nucleated RBC 0.000 Nucleated RBC % (auto) 0.0 Neutrophils % (Manual) Band Neutrophils % Lymphocytes % (Manual) Eosinophils % (Manual) Myelocytes % Abs Neuts (Manual) Lymphocytes # (Manual) Eosinophils # (Manual) Myelocytes # Toxic Vacuolation Dohle Bodies Platelet Estimate Plt Morphology Comment RBC Morphology Microcytosis Tear Drop Cells Schistocytes PT INR Anion Gap Estim Creat Clear Calc Estimated GFR Random Glucose Lactic Acid 1.2 Calcium Magnesium Total Bilirubin AST ALT Alkaline Phosphatase B-Natriuretic Peptide Total Protein Albumin Urine Color Yellow Urine Appearance Clear Urine pH 7.5 Ur Specific [place] >= 1.030 H Urine Protein Negative Urine Glucose (UA) Negative Urine Ketones Negative Urine Blood Trace H Urine Nitrite Positive H Ur Leukocyte Esterase Moderate (2+) H Urine RBC 0-2 Urine WBC >50 H Ur Squamous Epith Cells 0-2 Urine Bacteria Trace Hyaline Casts 0-2 Stool Occult Blood Blood Type Antibody Screen Crossmatch (AHG) Assessment and Plan (1) Acute lower GI bleeding: Status: Acute Plan 63-year-old female with history of COPD, metastatic small-cell lung cancer on carboplatin/etoposide with atezolizumab last infusion 12/07 with last Neulasta on 12/09 following with NICKOLAS Sandoval, history of hepatitis-C, history of IV cocaine abuse, hypertension, hyperlipidemia, GERD, IBS, rectal prolapse history of lower GI bleed, chronic iron-deficiency anemia who is a current everyday smoker smoking about 4-5 cigarettes on a daily basis admitted for further management of acute GI bleed. #Acute blood loss anemia r/t acute lower GI bleed -H/H10.1/29.0--> 8.6/24.9%. Transfused 1 unit in ED. Repeat H/H @6pm -Stool occult blood positive. NO overt bleeding x6 hours -CT abdomen/pelvis shows 2 areas of subtle arterial blush seen in the rectosigmoid colon at the level of the anastomosis in the hepatic flexure suspicious for lower GI bleed -Per IR and General surgery, no emergent indication for intervention at this time. Appreciate asisstance -GI consult. Awaiting further recs -Follow cbc, monitor on telemetry #Acute on chronic thrombocytenia -above PLT transfusion threshold -Onc consult -follow plt #Asymptomatic bacteriura -2+ leukocytes, positive nitrites, trace blood, positive urinary sediment, trace bacteria -CT also shows possible cystitis -IV ceftriaxone (initiated 12/13 # acute leukocytosis -likely related to Neulasta, less likely infection. No sepsis # small-cell lung cancer -oncology consult -on carboplatin/etoposide with atezolizumab last infusion 12/07 with last Neulasta on 12/[address] James # SIADH -hold on further IV fluids. Fluid restrictions #HTN -bp controlled, continue metoprolol #GERD -continue ppi, sucrafate #Nicotine dependence -patch for nrt, cessation advised dvt prophylaxis- SCPs full code pt requires inpt stay at least 2 midnights for active GI bleed requiring transfusion, cardiac montioring, monitoring of hemodynamics and expert consultation Quality Stroke Does the patient have a stroke diagnosis?: No VTE Prior VTE?: No VTE Risk Level:: Medical - moderate - high VTE Device Contraindication: N/A - Device Ordered VTE Drug Contraindication: Treatment Not Indicated
[2023-12-14 13:07] LABS: Band Neutrophils Percent 1 % (3-5); Eosinophils Absolute Manual 0.6 X10*3/uL (0.0-0.4); Eosinophils Percent Manual 3 % (0-4); Lymphocytes Absolute Manual 2.6 X10*3/uL (1.2-4.9); Lymphocytes Percent Manual 13 % (20-40); Neutrophils Absolute Manual 16.8 X10*3/uL (2.0-8.3); Neutrophils Percent Manual 83 % (45-73)
[2023-12-14 13:10] LABS: Dohle Bodies PRESENT; Microcytosis 1+ (5-14) /OIF; RBC Morphology NOTED; Schistocytes 1+ (0-2) /OIF; Tear Drop Cells 1+ (0-2) /OIF; Toxic Vacuolation PRESENT
[2023-12-14 13:11] LABS: Platelet Estimate DECREASED (NORMAL); Platelet Morphology Comment NORMAL
--- NOTE | 2023-12-14 13:13 | PC.NURSE ---
pt discussed CT results w/ ED provider as well as plan of care. pt aware of plan of care moving forward in regards to receiving blood transfusion d/t recent lab results. currently waiting for blood consent form to be signed. plan of care ongoing.
--- NOTE | 2023-12-14 13:42 | PHA.MEDREC ---
Addendum entered by Dustin Bentley [facility] 12/14/23 21:33: Patient told nurse that she only takes mirtazapine 15 mg at bedtime. Addendum entered by Jennifer Aviles [facility] 12/14/23 13:50: reviewed by [facility]. Original Note: Pharmacy Consult ? Medication Reconciliation Pharmacy has completed the medication reconciliation. Confirmed medications with patient and list provided by Discharge Packet from 12/08/23. Patient is taking Dexamethasone 4mg tab and she only takes it when Wednesdays and when she has Chemo Treatments (which are on Wednesdays, and Fridays.) The pateint confirmed she is taking Metoclopramide 5mg tab 1 tab TID before meals. She states she has some nicotine lozenges at home that she has not started but has them PRN for cigarette cravings.
--- NOTE | 2023-12-14 13:57 | P.CONGS_ITS ---
History of Present Illness Consult details Consult date: 12/14/23 Narrative: Patient is a 63-year-old female with a plethora of comorbidities and intercurrent medical problems who is currently status post the 3rd round of chemotherapy for her small cell lung cancer. Approximately 12 years ago, patient had what she describes to me as a colo anal anastomosis for a rectal cancer. She states that ever since that surgery she would have intermittent bleeding per rectum but her surgeon from [place] was not concerned about this. She also notes that after each round of her chemo, she has a recurrence of her lower GI bleeding. Patient has not had a recent colonoscopy that she can remember to assess her colon. She states that her original colorectal surgeon has since retired and has seen a new surgeon in [place]. That is surgeon will not address her issues until she has completed her chemotherapy and in fact is tentatively scheduled to evaluate the patient in April of next year In the meantime, patient denies any significant abdominal pain or other GI issues or complaints aside from the current lower GI bleed issues. On further questioning she may have some mild lower abdominal discomfort . Chart was reviewed and patient evaluated. H&H 8.6, 24.9. CT scan suggestive of to bleeding sites; 1 at the hepatic flexure and 1 of her Marvin- rectal anastomosis. [facility] Past Medical History Medical History Small cell lung cancer COPD (chronic obstructive pulmonary disease) Small cell lung cancer (~08/2023) MDD (major depressive disorder), recurrent episode, moderate Abnormal CT scan, chest Mass of right lung Lung mass Bronchitis Rectal prolapse Nicotine dependence, cigarettes, uncomplicated Nonrheumatic mitral (valve) insufficiency Pulmonary nodule History of hepatitis C Osteopenia (~2011) IV drug user Endocarditis of mitral valve (~11/2017) Mitral valve prolapse Mitral regurgitation Early satiety Paresthesia of left leg Allergic rhinitis Facet arthritis of lumbar region Cervical spondylosis Vitamin D deficiency Pure hypercholesterolemia Benign essential hypertension GERD (gastroesophageal reflux disease) Anxiety Family History Family History Father Internal bleeding Mother Medical history unknown Surgical History Surgical History History of bronchoscopy (~2023) History of liver biopsy (~2009) History of partial colectomy (~2014) History of hysteroscopy (~2010) History of colonoscopy (~2018) Social History Social History Household Members: None Housing: House Housing Other:: lives alone with her cat Malena Do you presently have visiting nurse or other home services: No Alcohol intake: former Patient Tobacco Use Status: Never used Tobacco Tobacco use type: Cigarette Cigarette Packs Per Day: 0.5 Years Smoked: 45 years (onset 15, 1/2-3/4ppd x 44yrs, 28pyh) Smoked in Last 30 Days: Yes e-Cigarette/Vaping Use: Never Used Second Hand Smoke Exposure: Yes Use of substances other than those prescribed or required for medical reasons: No Substance Use Type: Marijuana Advance Directives: Yes Advance Directives on File: Yes Advance Directives Date on File: 09/23/23 Do you have a plan to hurt others: No Plan Patient : No service: No Current occupational status: unemployed Sexual orientation: Straight/Heterosexual Gender identity: Female Cognitive needs: No Hearing needs: No Vision needs: Yes Meds Allergies Allergy/AdvReac Type Severity Reaction Status Date / Time No Known Allergies Allergy Unknown unknown Verified 12/14/23 06:50 [NO KNOWN ALLERGIES] Active Medications: Current Medications Sodium Chloride (Ns) 100 mls @ 100 mls/hr IV ONCE ONE Stop: 12/14/23 14:12 Home Medications ?Medication ?Instructions ?Recorded ?Confirmed ?Last Taken ?Type alosetron 0.5 mg tablet 1 mg PO DAILY@89907/22/23 12/14/23 12/14/23 History cholecalciferol (vitamin D3) 50 50 mcg PO DAILY@89907/22/23 12/14/23 12/14/23 History mcg (2,000 unit) capsule solifenacin 10 mg tablet 10 mg PO DAILY@89907/22/23 12/14/23 12/14/23 History sucralfate 1 gram tablet (Carafate) 4 g PO DAILY@1200 07/25/23 12/14/23 09/28/23 History budesonide 180 mcg/actuation 2 inh inhalation BID 09/28/23 12/14/23 09/28/23 History breath activated powder inhaler (Pulmicort Flexhaler) sodium chloride 1,000 mg soluble 1,000 mg PO BID 10/15/23 12/14/23 12/14/23 History tablet dexamethasone 4 mg tablet 4 mg PO WETH 10/21/23 12/14/23 Unknown History metoclopramide HCl 5 mg tablet 5 mg PO TIDAC 12/14/23 12/14/23 12/14/23 History Physical Exam 2 Vital Signs: Vital Signs: Last Vital Signs Temp 98.0 F 12/14/23 13:50 Pulse 62 12/14/23 13:50 Resp 14 12/14/23 13:50 BP 139/75 12/14/23 13:50 Pulse Ox 100 12/14/23 11:02 O2 Del Method Nasal Cannula 12/14/23 11:02 O2 Flow Rate 2 12/14/23 11:02 Oxygen Flow Rate 2 12/14/23 06:47 BMI result Body Mass Index 21.8 Const: Other: Elderly ill appearing female looking much older than her chronological age GI: Other: Abdomen is soft, benign. Scars healed. Rectal exam demonstrates some old blood. Exam was deferred secondary to patient's discomfort. Results Labs 12/14/23 12:34 12/14/23 06:55 Labs: Abnormal lab results 12/14/23 12/14/23 12/14/23 Range/Units 06:55 06:59 11:01 WBC 26.9 H (4.8-10.8) X10*3/uL RBC 3.14 L (4.20-5.50) X10*6/uL Hgb 10.1 L (12.0-16.0) g/dl Hct 29.0 L (37.0-47.0) % RDW 20.0 H (11.0-16.0) % Plt Count 68 L D (160-400) X10*3/uL Neutrophils % (Manual) 89 H (45-73) % Band Neutrophils % (3-5) % Lymphocytes % (Manual) 5 L (20-40) % Abs Neuts (Manual) 25.0 H (2.0-8.3) X10*3/uL Eosinophils # (Manual) (0.0-0.4) X10*3/uL Sodium 133 L (135-145) mmol/L Potassium 3.2 L D (3.3-5.1) mmol/L BUN 18 H (9-16) mg/dL Random Glucose 121 H (60-115) mg/dL Magnesium 1.3 L* (1.6-2.6) mg/dL Total Protein 6.2 L (6.5-8.0) g/dL Ur Specific [place] >= 1.030 H (1.005-1.025) Urine Blood Trace H (Negative) Urine Nitrite Positive H (Negative) Ur Leukocyte Esterase Moderate (2+) H (Negative) Urine WBC >50 H (0-5) /HPF Crossmatch ([facility]) See Detail 12/14/23 Range/Units 12:34 WBC 20.0 H (4.8-10.8) X10*3/uL RBC 2.65 L (4.20-5.50) X10*6/uL Hgb 8.6 L (12.0-16.0) g/dl Hct 24.9 L (37.0-47.0) % RDW 20.2 H (11.0-16.0) % Plt Count 56 L (160-400) X10*3/uL Neutrophils % (Manual) 83 H (45-73) % Band Neutrophils % 1 L (3-5) % Lymphocytes % (Manual) 13 L (20-40) % Abs Neuts (Manual) 16.8 H (2.0-8.3) X10*3/uL Eosinophils # (Manual) 0.6 H (0.0-0.4) X10*3/uL Sodium (135-145) mmol/L Potassium (3.3-5.1) mmol/L BUN (9-16) mg/dL Random Glucose (60-115) mg/dL Magnesium (1.6-2.6) mg/dL Total Protein (6.5-8.0) g/dL Ur Specific [place] (1.005-1.025) Urine Blood (Negative) Urine Nitrite (Negative) Ur Leukocyte Esterase (Negative) Urine WBC (0-5) /HPF Crossmatch ([facility]) Short CBC 12/14/23 12/14/23 Range/Units 06:55 12:34 WBC 26.9 H 20.0 H (4.8-10.8) X10*3/uL Hgb 10.1 L 8.6 L (12.0-16.0) g/dl Hct 29.0 L 24.9 L (37.0-47.0) % Plt Count 68 L D 56 L (160-400) X10*3/uL BMP 12/14/23 06:55 Sodium 133 L Potassium 3.2 L D Chloride 98 Carbon Dioxide 22 BUN 18 H Creatinine 0.67 Calcium 8.8 Liver Function 12/14/23 Range/Units 06:55 Total Bilirubin 0.9 (0.0-1.0) mg/dL AST 12 (5-31) U/L ALT < 5 (0-31) U/L Alkaline Phosphatase 105 (39-117) U/L Albumin 4.0 (3.5-5.0) g/dL Urine 12/14/23 Range/Units 11:01 Urine Color Yellow Urine Appearance Clear Urine pH 7.5 (5.0-9.0) Ur Specific [place] >= 1.030 H (1.005-1.025) Urine Protein Negative (Neg-Trace) mg/dL Urine Glucose (UA) Negative (Negative) mg/dL All other labs normal. Assessment and Plan (1) Acute lower GI bleeding: Status: Acute (2) Small cell lung cancer: Status: Acute Plan I reviewed with the ER practitioner that patient should undergo GI consultation as well as IR evaluation in the unlikely but nonetheless possible case that she would require embolization of her bleeding sites.. At present, no acute surgical issues but patient should have continued restorative measures , possible transfusion. Her low H&H could indeed be related to lower GI bleed but also may be contributed by the patient's current chemotherapy. Procedures Date of Service Date of Service: 12/14/23
--- NOTE | 2023-12-14 13:59 | PC.NURSE ---
1st unit of PRBC received from blood bank by [employer] at this time. first initial 15 min of blood infusing @ 160mls/hr at this time. pt currently tolerating well. vss and up to date. pt remains on 2L via NC - resting in no apparent distress. no signs of complications/reactions noted. no sob/wob noted. respirations even/unlabored. plan of care ongoing.
--- NOTE | 2023-12-14 14:11 | PC.NURSE ---
pt tolerated first 15 minutes of PRBC infusion well w/o complications. PRBC infusion titrated to maintenance rate @ 180mls/hr at this time. vss and up to date. nsr on the phototypesetting equipment monitor. respirations remain even/unlabored. plan of care ongoing. call miller placed within reach.
[2023-12-14] MEDS: Nicotine 7 MG PATCH.TD24 TRANSDERMA (15:05)
[2023-12-14] MEDS: 0.9 % Sodium Chloride Flush 3 ML SYRINGE IVFLUSH (15:07)
--- NOTE | 2023-12-14 15:22 | PM.EVENT ---
Event Note Date of Service: 12/14/23 Event Note: Contacted by ED PA in regards to CTA findings. Patient presents with ongoing hematochezia (small volume with bowel movements). Last episode was 5 am this morning. She has a complex medical history including small cell lung cancer, currently receiving chemotherapy. Afebrile, no tachycardia or hypotension A+O x4 Abdomen: soft, nt Skin: warm and dry CTA today- ? small amount of extravasation at hepatic flexure vs mucosal enhancement. HCT- 25 (29) PLT- 50K -Case discussed with Dr. Frank -Given normal hemodynamics and no recurrent episodes of hematochezia, would not pursue angiogram at this time. Patient was reluctant to pursue this unless deemed urgent/emergent. -Recommend GI consultation for possible endoscopic evaluation [facility] Interventional Radiology. Time Spent With Patient Time: Total time managing care of this patient today ____ minutes.
--- NOTE | 2023-12-14 15:26 | P.CNHO_ITS ---
Subjective - Subjective Chief complaint: Rectal bleeding Patient: known to practice within the last 3 years Consult date: 12/14/23 Requesting Physician: Hospitalist team Primary Care Provider: Sarthak Person MD Medical Summary: Diagnosis: Small-cell lung cancer Chronic smoker with history of COPD who presented with worsening shortness of breath with right-sided chest pain and nausea on 08/24/2023. Unfortunately, CT chest revealed right upper lobe collapse with possible postobstructive pneumonia. She is followed by Dr. Padilla and was on lung cancer screening program, a low-dose CT in June [address] chest with contrast revealed a right suprahilar mass measuring 5.8 x 4.1 cm encasing and occluding right upper lobe bronchus with complete collapse of right upper lobe. This is a small stable left upper lobe 1 cm pulmonary nodule, enlarged mediastinal lymph nodes with 1.4 x 2.7 x 2.4 cm pretracheal lymph node. No pleural effusion or axillary adenopathy. Adrenals normal, no evidence of osseous metastatic disease. She had a CT head without contrast which was negative for metastasis. Clinical stage T3 N2, Stage IIIB LDH mildly elevated at 274, CEA 12.1 NG/ mL. She presented with severe hyponatremia with sodium of 116 millimole per L secondary to SIADH/lung cancer. She is on water restriction and has been started on sodium tablets. PET scan performed at [facility] on 09/11/2023 showed FDG avid right hilar/suprahilar mass with SUV 12.6, FDG avid mediastinal and right hilar lymphadenopathy. Left supraclavicular lymph node SUV max 4.2, right supraclavicular lymph node SUV max 2, right paratracheal SUV max 9.4, anterior mediastinal SUV max 4.8. Nonspecific focal activity in anal canal SUV 15.3. Brain MRI performed 09/10/2023 showed no evidence of intracranial metastatic disease. She received 1st cycle of cisplatin/etoposide on 09/23/2023. She was admitted a week later with hyponatremia and severe pancytopenia. She was also treated for a UTI. She received Granix and blood transfusion. She was seen by radiation oncologist at [facility]. After reviewing her case in tumor board and finding of PET positive supraclavicular lymph node, decision was made to switch her to chemotherapy for extensive stage small cell lung cancer. She was started on carboplatin/etoposide with atezolizumab on 11/11/2023. HPI - Consult Narrative Reason for consult: Rectal bleeding, on chemotherapy for lung cancer Narrative: Sarah Medina is a 63 year old female well known to Oncology Service for history of extensive stage small cell lung cancer. She has been on chemo immunotherapy for a couple of months. She has had chronic rectal bleeding secondary to prolapse. She said after last round of chemotherapy she developed worsening bleeding, it was almost a constant stream and therefore she came to the emergency department. She denies abdominal pain, nausea or emesis. No fever or chills. She says she saw her rectal surgeon in [place] who did not want to do any intervention at this time as she is receiving chemotherapy for lung cancer. [place] [facility] [place]. Review of Systems - Constitutional Reports as per HPI, Reports lack of energy, Reports malaise - Cardiovascular Reports no additional cardiovascular complaints, Denies chest pain, Denies fast heart rate - Respiratory Reports no additional respiratory complaints, Denies cough, Denies dyspnea - Gastrointestinal Denies black, tarry stools [facility] Medical History: Medical History (Last Reviewed 12/15/23 @ 01:58 by Sienna Stewart, JAILENE) Abnormal CT scan, chest Allergic rhinitis Anxiety Benign essential hypertension Bronchitis Cervical spondylosis COPD (chronic obstructive pulmonary disease) Early satiety Endocarditis of mitral valve Onset Date: ~11/2017 Facet arthritis of lumbar region GERD (gastroesophageal reflux disease) History of hepatitis C IV drug user Lung mass Mass of right lung MDD (major depressive disorder), recurrent episode, moderate Mitral regurgitation Mitral valve prolapse Nicotine dependence, cigarettes, uncomplicated Nonrheumatic mitral (valve) insufficiency Osteopenia Onset Date: ~2011 Paresthesia of left leg Pulmonary nodule Pure hypercholesterolemia Rectal prolapse Small cell lung cancer Onset Date: ~08/2023 Small cell lung cancer Vitamin D deficiency Family History: Family History (Last Reviewed 12/14/23 @ 14:56 by YEVGENIY Fernandez) Father Internal bleeding Mother Medical history unknown Surgical History: Surgical History (Last Reviewed 12/15/23 @ 01:58 by Sienna Stewart RN) History of bronchoscopy Onset Date: ~2023 History of colonoscopy Onset Date: ~2017 History of hysteroscopy Onset Date: ~2010 History of liver biopsy Onset Date: ~2009 History of partial colectomy Onset Date: ~2014 Social History: Social History (Last Reviewed 12/14/23 @ 14:56 by YEVGENIY Fernandez) Living Situation History: Household Members: Children Housing: House Housing Other:: lives alone with her cat Malena Do you presently have visiting nurse or other home services: Yes Do you presently have visiting nurse or other home services comment: 2 daughters assist with bringing meals Tobacco History: Patient Tobacco Use Status: Current everyday Tobacco Tobacco use type: Cigarette Cigarette Packs Per Day: 0.5 Cigarettes Per Day: 5 Years Smoked: 45 years (onset 15, 1/2-3/4ppd x 44yrs, 28pyh) e-Cigarette/Vaping Use: Never Used Second Hand Smoke Exposure: No Substance Use History: Substance Use Type: Marijuana Advance Directives: Advance Directives Date on File: 09/23/23 Occupation Assessmet: service: No Current occupational status: unemployed Sex/Gender Assessment: Sexual orientation: Straight/Heterosexual Gender identity: Female Home Medications and Allergies Current Medications: Current Medications Acetaminophen (Acetaminophen 325 Mg Tablet) 650 mg PO Q6H PRN PRN Reason: Pain, Mild (Pain Scale 1-3), fever or headache Albuterol Sulfate (Albuterol Sulfate 90 Mcg 8 Gm Inhaler) 1 puff INHALE Q6H PRN PRN Reason: shortness of breath or wheezing Budesonide (Budesonide 180 Mcg Aer.Pow.Ba) 2 puff INHALE BID MANUEL Calcium Carbonate (Calcium Carbonate 750 Mg Tab.Chew) 750 mg PO Q4H PRN PRN Reason: Heartburn Clonazepam (Clonazepam 0.5 Mg Tablet) 0.5 mg PO BID PRN PRN Reason: Anxiety Diphenoxylate HCl/Atropine (Diphenoxylate/Atrop 2.5/0.025 Tablet) 1 tab PO DAILY PRN PRN Reason: Diarrhea Fluticasone Propionate (Fluticasone Propionate Nasal 16 Gm [place]) 1 spray NOSTRIL-B DAILY MANUEL Guaifenesin/Dextromethorphan (Guaifenesin Dm 100/10/5 Ml 5 Ml Syrup) 10 ml PO TID PRN PRN Reason: cough Hydroxyzine HCl (Hydroxyzine Hcl 50 Mg Tablet) 50 mg PO BEDTIME MANUEL Loperamide HCl (Loperamide Hcl 2 Mg Capsule) 2 mg PO Q6H PRN PRN Reason: Diarrhea Magnesium Hydroxide (Milk Of Magnesia 30 Ml Oral.Susp) 30 ml PO DAILY PRN PRN Reason: Constipation Melatonin (Melatonin 3 Mg Tablet) 6 mg PO BEDTIME PRN PRN Reason: Insomnia Metoclopramide HCl (Metoclopramide Hcl 5 Mg Tablet) 5 mg PO TIDAC [facility] Metoprolol Succinate (Metoprolol Succinate Er 50 Mg Tab.Er.24h) 50 mg PO DAILY [facility]; Protocol Mirtazapine (Mirtazapine 30 Mg Tablet) 30 mg PO BEDTIME [facility] Nicotine (Nicotine 7 Mg Patch.Td24) 7 mg TRANSDERMA DAILY [facility] Last Admin: 12/14/23 15:05 Dose: 7 mg Nicotine Polacrilex (Nicotine Polacrilex Lozenge 4 Mg Lozenge) 4 mg BUCCAL Q8H PRN PRN Reason: Anxiety Non-Formulary Medication (Alosetron) 1 mg PO DAILY@0900 [facility] Omeprazole (Omeprazole 20 Mg Capsule.Dr) 20 mg PO DAILY@0630 [facility] Ondansetron HCl (Ondansetron Odt 8 Mg Tab.Rapdis) 8 mg TRANSLINGU Q8H PRN PRN Reason: Nausea And Vomiting Oxycodone HCl (Oxycodone Hcl Immed Release 5 Mg Tablet) 5 mg PO Q6H PRN PRN Reason: Pain, Severe (Pain Scale 7-10) Potassium Chloride (Potassium Chloride Er 20 Meq Tab.Er.Prt) 20 meq PO DAILY [facility] Sodium Chloride (0.9 % Sodium Chloride Flush 3 Ml Syringe) 3 ml IVFLUSH QSHIFT [facility] Last Admin: 12/14/23 15:07 Dose: 3 ml Sodium Chloride (Sodium Chloride Tab 1 Gm Tablet) 1 gm PO BID [facility] Sucralfate (Sucralfate 1 Gm Tablet) 4 gm PO DAILY@1200 [facility] Tiotropium Flora (Tiotropium Flora 2.5 Mcg 1 Puff/2.5 Mcg Mist.Inhal) 2 puff INHALE RDAILY [facility] Tolterodine Tartrate (Tolterodine Tartrate La 4 Mg Cap.Er.24h) 4 mg PO DAILY@0900 [facility] Vitamin D (Cholecalciferol (Vitamin D3) 25 Mcg Tablet) 50 mcg PO DAILY@0900 [facility] Home Medications ?Medication ?Instructions ?Recorded ?Confirmed ?Type alosetron 0.5 mg tablet 1 mg PO DAILY@0900 07/22/23 09/09/24 History cholecalciferol (vitamin D3) 50 50 mcg PO DAILY@89907/22/23 12/14/23 History mcg (2,000 unit) capsule solifenacin 10 mg tablet 10 mg PO DAILY@89907/22/23 12/14/23 History sucralfate 1 gram tablet (Carafate) 4 g PO DAILY@1200 07/25/23 12/14/23 History budesonide 180 mcg/actuation 2 inh inhalation BID 09/28/23 12/14/23 History breath activated powder inhaler (Pulmicort Flexhaler) sodium chloride 1,000 mg soluble 1,000 mg PO BID 10/15/23 12/14/23 History tablet dexamethasone 4 mg tablet 4 mg PO WETH 10/21/23 12/14/23 History metoclopramide HCl 5 mg tablet 5 mg PO TIDAC 12/14/23 12/14/23 History mirtazapine 15 mg tablet 15 mg PO BEDTIME 12/14/23 12/14/23 History Allergies Allergy/AdvReac Type Severity Reaction Status Date / Time No Known Allergies Allergy Unknown unknown Verified 12/14/23 06:50 [NO KNOWN ALLERGIES] Physical Exam Vital signs: Vital Signs Temp 97.4 F 12/14/23 15:20 Pulse 61 12/14/23 15:20 Resp 14 12/14/23 15:20 BP 154/76 H 12/14/23 15:20 Pulse Ox 95 12/14/23 15:20 O2 Del Method Nasal Cannula 12/14/23 15:20 O2 Flow Rate 2 12/14/23 15:20 Intake & Output 12/13/23 12/14/23 12/14/23 18:59 06:59 18:59 Intake Total 1719.31 / 1719.31 Balance 1719.31 / 1719.31 Intake: Intake (Blood Product) Amount 0 / 0 Red Blood Cells (E0336) Unit 0 / 0 [id number] Intake, IV Amount 1719.31 / 1719.31 0.9 % Sodium Chloride 1,619.31 1619.31 / 1619.31 ml @ 1619.31 mls/hr IV .Q1H STA Rx#:[id number] Magnesium Sulfate/H2O 2 gm In 50 / 50 50 ml @ 25 mls/hr IV ONCE ONE Rx#:[id number] Piperacillin Sodium/Tazobactam 50 / 50 3.375 gm In 0.9 % Sodium Chloride 50 ml @ 100 mls/hr IV ONCE ONE Rx#:[id number] Other: Weight 53.977 kg Weight 53.977 kg - Constitutional Present: no acute distress, chronically ill appearing - Routine HEENT Exam Head: Present: normal inspection Eye: Present: EOMI, PERRL - Routine Neck Exam Present: supple. Absent: lymphadenopathy - Routine Respiratory Exam Present: decreased breath sounds. Absent: accessory muscle use - Routine Cardiovascular Exam Cardiovascular: Present: S1, S2 - Routine Abdominal Exam Present: soft - Routine Skin Exam Present: intact Hem/Onc Consult Result - Labs CBC & Chem 7: 12/15/23 06:04 12/15/23 06:04 Labs: Short CBC 12/14/23 12/14/23 Range/Units 06:55 12:34 WBC 26.9 H 20.0 H (4.8-10.8) X10*3/uL Hgb 10.1 L 8.6 L (12.0-16.0) g/dl Hct 29.0 L 24.9 L (37.0-47.0) % Plt Count 68 L D 56 L (160-400) X10*3/uL BMP 12/14/23 06:55 Sodium 133 L Potassium 3.2 L D Chloride 98 Carbon Dioxide 22 BUN 18 H Creatinine 0.67 Calcium 8.8 Liver Function 12/14/23 Range/Units 06:55 Total Bilirubin 0.9 (0.0-1.0) mg/dL AST 12 (5-31) U/L ALT < 5 (0-31) U/L Alkaline Phosphatase 105 (39-117) U/L Albumin 4.0 (3.5-5.0) g/dL Urine 12/14/23 Range/Units 11:01 Urine Color Yellow Urine Appearance Clear Urine pH 7.5 (5.0-9.0) Ur Specific [place] >= 1.030 H (1.005-1.025) Urine Protein Negative (Neg-Trace) mg/dL Urine Glucose (UA) Negative (Negative) mg/dL Assessment and Plan Patient Active problem list reviewed?: Yes (1) Small cell lung cancer Problem details: As noted above her recent bronchoscopic exam and bronchial biopsy are positive small cell carcinoma. Status: Acute Assessment and plan: 1. This is a 63-year-old woman diagnosed with extensive stage small cell lung cancer involving right hilum in August 2023. She is on treatment with carboplatin/etoposide with atezolizumab since 11/11/2023. Her last treatment was last week, she received Neulasta after treatment which explains her leukocytosis. Her ongoing GI bleeding seems to be from recurrent rectal prolapse. She also has had intermittent moderately severe thrombocytopenia which could have made this worse. CT abdomen pelvis/bleeding scan showed 2 subtle areas of arterial blush in the rectosigmoid colon and the hepatic flexure suspicious for lower GI bleed. She received a unit of blood transfusion. She is scheduled to undergo flexible sigmoidoscopy tomorrow. 2. SIADH causing hyponatremia. She should be on sodium chloride 1000 mg b.i.d.. Continue current plan. Appreciate GI and hospitalist input. - Time Spent With Patient Time Spent with Patient (in minutes): 20 Additional Coding: - Additional E/M codes Complex E/M visit Add On: CPT G2211
--- NOTE | 2023-12-14 16:20 | P.CNGI_ITS ---
History of Present Illness Data of Consult Service Date: 12/14/23 Requesting physician: Rossana Carlos Primary Care Provider: Sarthak Person MD [facility] Reason for consult: Rectal bleeding 63 YF with COPD, metastatic small-cell lung cancer on carboplatin/etoposide with atezolizumab last infusion 12/07 with last Neulasta on 12/09 (followed by Dr. James), SIADH, history of hepatitis-C, history of IV cocaine abuse, hypertension, hyperlipidemia, GERD, IBS, rectal prolapse history of lower GI bleed, chronic iron-deficiency anemia seen at [facility] for evaluation of BRBPR. Pt reports onset of intermittent rectal bleeding since she had surgery for rectal prolapse in 2014. She noted increase in rectal bleeding associated with recurrent rectal prolapse since she started chemotherapy for lung cancer in September,. Pt was referred for radiation but was not deemed a candidate She reports she had an increase in bleeding since yesterday with slight stream of blood from rectum this morning. She notes BRB on toilet paper every time she goes to the bathroom to have a BM - denies seeing blood in the toilet bowl. Has not has any overt bleeding in about 6 hours. Pt denies abd pain, n/v/d, melena, fevers, chills, dysuria, hematuria, increased urinary frequency and denies dizziness Pt reports being seen by Colorectal surgeon at [facility] and was advised to have a colonoscopy after she finishes her chemo on 04/04/24 FU appt scheduled with the colorectal surgeon on 04/11/23. Patient lives by herself with her cat and rabbit. Her daughter lives downstairs in the same house. Pt is trying to quit smoking and smoking 4 cigarettes daily and using nicotine patch. She reports she quitted drinking and drug use in 2019. Patient denies known family history of colon polyps or GI malignancy. In the ED, pt hemodynamically stable. Leukocytosis 20.0, H/H 10.1/29.0--> 8.6/24.9% (was also given 1.6L IVF prior to repeat labs, ?hemodilution), PLT 56. Renal function baseline, sodium 133, potassium 3.2. Magnesium 1.3, lytes otherwise normal. Stool occult blood positive. In the ED, received IV Zosyn, 1.6 L IVF given initial suspicion for sepsis, and transfused 1 unit packed red blood cells. 12/14/[address] SCAN SHOWED: 1. There are 2 areas of subtle arterial blush seen in the rectosigmoid colon at the level of the anastomosis and in the hepatic flexure, suspicious for lower GI bleed. 2. Mild diffuse bladder wall thickening, possibly due to underdistention, though subtle cystitis cannot be entirely excluded. 3. Subtle hypodensity in hepatic segment IVb, not seen on recent prior exam, most consistent with an area of altered vascular perfusion or focal fatty infiltration. 4. Other nonacute findings include cholelithiasis, bilateral tiny renal cysts, which warrant no additional imaging follow-up, sagittal medullary sponge kidney versus tiny calculi at the corticomedullary junction, osteopenia with severe biconcave compression deformity of the L5 vertebral body, tiny fat-containing umbilical and bilateral direct inguinal hernias, and moderate to severe atherosclerotic vascular disease. PAST GI HISTORY BY REVIEW OF MEDICAL RECORDS: Pt is known to me from past admission to [facility] in 2018. She had a colonoscopy in 2014 prior to surgery for rectal prolapse. She had resection of 6 of left colon and continued to have rectal pain and bleeding with intermittent rectal prolapse despite having the surgery. 10/2017 Colonoscopy showed: Colonoscopy Findings: No polyps seen Normal appearing mucosa throughout the colon without evidence of colitis - random biopsies were obtained. Mild diverticulosis seen in the left colon Normal anastomosis at 10 cms with erythema in the distal rectum - biopsies were obtained. Lax anal sphincter without any tone likely related to recurrent prolapse Plan: Await pathology results. Start a Fibre supplement (Citrucil) one to two times daily for diarrhea Repeat Colonoscopy interval based on path results. BIOPSIES SHOWED: Random biopsies obtained from the colon were normal. Biopsies obtained from the rectum showed fragments of hyperplastic colonic mucosa Review of Systems 2 Review of Systems: Yes all other systems are reviewed and are negative [facility] Past Medical History Medical History (Updated 01/04/24 @ 16:37 by Shawna Mistry MD) Enterococcus, vancomycin-resistant Small cell lung cancer COPD (chronic obstructive pulmonary disease) Small cell lung cancer (~08/2023) MDD (major depressive disorder), recurrent episode, moderate Abnormal CT scan, chest Mass of right lung Lung mass Bronchitis Rectal prolapse Nicotine dependence, cigarettes, uncomplicated Nonrheumatic mitral (valve) insufficiency Pulmonary nodule History of hepatitis C Osteopenia (~2011) IV drug user Endocarditis of mitral valve (~11/2017) Mitral valve prolapse Mitral regurgitation Early satiety Paresthesia of left leg Allergic rhinitis Facet arthritis of lumbar region Cervical spondylosis Vitamin D deficiency Pure hypercholesterolemia Benign essential hypertension GERD (gastroesophageal reflux disease) Anxiety Family History Family History Father Internal bleeding Mother Medical history unknown Surgical History Surgical History History of bronchoscopy (~2023) History of liver biopsy (~2009) History of partial colectomy (~2014) History of hysteroscopy (~2010) History of colonoscopy (~2017) Social History Social History Household Members: Children Housing: House Housing Other:: lives alone with her cat Gizjames Are you a primary memory care program director to a significant other at home: No Do you presently have visiting nurse or other home services: Yes ([facility]) Alcohol intake: former Patient Tobacco Use Status: Current everyday Tobacco user Tobacco use type: Cigarette Cigarette Packs Per Day: 5 Cigarettes Per Day: 5 Years Smoked: 45 e-Cigarette/Vaping Use: Never Used Second Hand Smoke Exposure: Yes Substance Use Type: Marijuana Advance Directives Date on File: 09/23/23 service: No Current occupational status: unemployed Sexual orientation: Straight/Heterosexual Gender identity: Female Cognitive needs: No Hearing needs: No Vision needs: Yes Meds Allergies Allergy/AdvReac Type Severity Reaction Status Date / Time No Known Allergies Allergy Unknown unknown Verified 01/05/24 09:29 [NO KNOWN ALLERGIES] Active Medications: Current Medications Acetaminophen (Acetaminophen 325 Mg Tablet) 650 mg PO Q6H PRN PRN Reason: Pain, Mild (Pain Scale 1-3), fever or headache Albuterol Sulfate (Albuterol Sulfate 90 Mcg 8 Gm Inhaler) 1 puff INHALE Q6H PRN PRN Reason: shortness of breath or wheezing Budesonide (Budesonide 180 Mcg Aer.Pow.Ba) 2 puff INHALE BID MANUEL Calcium Carbonate (Calcium Carbonate 750 Mg Tab.Chew) 750 mg PO Q4H PRN PRN Reason: Heartburn Clonazepam (Clonazepam 0.5 Mg Tablet) 0.5 mg PO BID PRN PRN Reason: Anxiety Diphenoxylate HCl/Atropine (Diphenoxylate/Atrop 2.5/0.025 Tablet) 1 tab PO DAILY PRN PRN Reason: Diarrhea Fluticasone Propionate (Fluticasone Propionate Nasal 16 Gm [place]) 1 spray NOSTRIL-B DAILY [facility] Guaifenesin/Dextromethorphan (Guaifenesin Dm 100/10/5 Ml 5 Ml Syrup) 10 ml PO TID PRN PRN Reason: cough Hydroxyzine HCl (Hydroxyzine Hcl 50 Mg Tablet) 50 mg PO BEDTIME [facility] Loperamide HCl (Loperamide Hcl 2 Mg Capsule) 2 mg PO Q6H PRN PRN Reason: Diarrhea Magnesium Hydroxide (Milk Of Magnesia 30 Ml Oral.Susp) 30 ml PO DAILY PRN PRN Reason: Constipation Melatonin (Melatonin 3 Mg Tablet) 6 mg PO BEDTIME PRN PRN Reason: Insomnia Metoclopramide HCl (Metoclopramide Hcl 5 Mg Tablet) 5 mg PO TIDAC [facility] Metoprolol Succinate (Metoprolol Succinate Er 50 Mg Tab.Er.24h) 50 mg PO DAILY [facility]; Protocol Mirtazapine (Mirtazapine 30 Mg Tablet) 30 mg PO BEDTIME [facility] Nicotine (Nicotine 7 Mg Patch.Td24) 7 mg TRANSDERMA DAILY [facility] Last Admin: 12/14/23 15:05 Dose: 7 mg Nicotine Polacrilex (Nicotine Polacrilex Lozenge 4 Mg Lozenge) 4 mg BUCCAL Q8H PRN PRN Reason: Anxiety Non-Formulary Medication (Alosetron) 1 mg PO DAILY@0900 [facility] Omeprazole (Omeprazole 20 Mg Capsule.Dr) 20 mg PO DAILY@0630 [facility] Ondansetron HCl (Ondansetron Odt 8 Mg Tab.Rapdis) 8 mg TRANSLINGU Q8H PRN PRN Reason: Nausea And Vomiting Oxycodone HCl (Oxycodone Hcl Immed Release 5 Mg Tablet) 5 mg PO Q6H PRN PRN Reason: Pain, Severe (Pain Scale 7-10) Potassium Chloride (Potassium Chloride Er 20 Meq Tab.Er.Prt) 20 meq PO DAILY [facility] Sodium Chloride (0.9 % Sodium Chloride Flush 3 Ml Syringe) 3 ml IVFLUSH QSHIFT [facility] Last Admin: 12/14/23 15:07 Dose: 3 ml Sodium Chloride (Sodium Chloride Tab 1 Gm Tablet) 1 gm PO BID [facility] Sucralfate (Sucralfate 1 Gm Tablet) 4 gm PO DAILY@1200 [facility] Tiotropium [place] (Tiotropium [place] 2.5 Mcg 1 Puff/2.5 Mcg Mist.Inhal) 2 puff INHALE RDAILY [facility] Tolterodine Tartrate (Tolterodine Tartrate La 4 Mg Cap.Er.24h) 4 mg PO DAILY@0900 [facility] Vitamin D (Cholecalciferol (Vitamin D3) 25 Mcg Tablet) 50 mcg PO DAILY@0900 [facility] Home Medications ?Medication ?Instructions ?Recorded ?Confirmed ?Last Taken ?Type alosetron 0.5 mg tablet 1 mg PO DAILY@0907/22/23 01/05/24 12/28/23 History cholecalciferol (vitamin D3) 50 50 mcg PO DAILY@0907/22/23 01/05/24 12/28/23 History mcg (2,000 unit) capsule solifenacin 10 mg tablet 10 mg PO DAILY@0907/22/23 01/05/24 12/28/23 History sucralfate 1 gram tablet (Carafate) 4 g PO DAILY@1200 07/25/23 01/05/24 01/02/24 History budesonide 180 mcg/actuation 2 inh inhalation BID 09/28/23 01/05/24 01/02/24 History breath activated powder inhaler (Pulmicort Flexhaler) dexamethasone 4 mg tablet 4 mg PO WETH 10/21/23 01/05/24 01/02/24 History metoclopramide HCl 5 mg tablet 5 mg PO TIDAC 12/14/23 01/05/24 01/02/24 History mirtazapine 30 mg tablet 15 mg PO BEDTIME 12/27/23 01/05/24 12/27/23 History sennosides 8.6 mg-docusate sodium 1 tab PO BEDTIME PRN Constipation 12/27/23 01/05/24 Unknown History 50 mg tablet (Senexon-S) pantoprazole 40 mg tablet,delayed 40 mg PO BID@0630,1630 12/30/23 01/05/24 Unknown History release acetaminophen 500 mg tablet 500 mg PO Q6H PRN Pain (Scale 01/04/24 01/05/24 Unknown History Score 1-3) simvastatin 40 mg tablet 40 mg BEDTIME 01/04/24 01/05/24 01/02/24 History Physical Exam 2 Vital Signs: Vital Signs: Last Vital Signs Temp 98.7 F 12/14/23 16:12 Pulse 59 12/14/23 16:12 Resp 18 12/14/23 16:12 BP 167/90 H 12/14/23 16:12 Pulse Ox 99 12/14/23 16:03 O2 Del Method Room Air 12/14/23 16:03 O2 Flow Rate 2 12/14/23 15:20 Oxygen Flow Rate 2 12/14/23 06:47 BMI result Body Mass Index 21.8 Const: Other: Constitutional - Awake and Alert, No apparent distress Eyes - PERRLA, EOMI Cardiovascular - S1S2, RRR, No edema Respiratory - Normal lung expansion, Normal respiratory effort, No respiratory distress, CTA bilaterally Gastrointestinal - NT / ND; +BS; No rebound or guarding. External hemorrhoids with open ulceration, but no active prolapse. Rectal exam performed by ED provider Extremities - no calf tenderness bilaterally, no swelling Skin - Warm/Dry Neurological - Alert & oriented x3 Psychological - Appropriate affect Results Labs 12/17/23 06:03 12/17/23 06:03 Labs: Short CBC 12/14/23 12/14/23 Range/Units 06:55 12:34 WBC 26.9 H 20.0 H (4.8-10.8) X10*3/uL Hgb 10.1 L 8.6 L (12.0-16.0) g/dl Hct 29.0 L 24.9 L (37.0-47.0) % Plt Count 68 L D 56 L (160-400) X10*3/uL BMP 12/14/23 06:55 Sodium 133 L Potassium 3.2 L D Chloride 98 Carbon Dioxide 22 BUN 18 H Creatinine 0.67 Calcium 8.8 Liver Function 12/14/23 Range/Units 06:55 Total Bilirubin 0.9 (0.0-1.0) mg/dL AST 12 (5-31) U/L ALT < 5 (0-31) U/L Alkaline Phosphatase 105 (39-117) U/L Albumin 4.0 (3.5-5.0) g/dL Urine 12/14/23 Range/Units 11:01 Urine Color Yellow Urine Appearance Clear Urine pH 7.5 (5.0-9.0) Ur Specific [place] >= 1.030 H (1.005-1.025) Urine Protein Negative (Neg-Trace) mg/dL Urine Glucose (UA) Negative (Negative) mg/dL Assessment and Plan (1) Abdominal pain: Status: Resolved Plan 63 YF with COPD, metastatic small-cell lung cancer on carboplatin/etoposide with atezolizumab last infusion 12/07 with last Neulasta on 12/09 (followed by Dr. James), SIADH, history of hepatitis-C, history of IV cocaine abuse, hypertension, hyperlipidemia, GERD, IBS, rectal prolapse history of lower GI bleed, chronic iron-deficiency anemia seen at [facility] for evaluation of BRBPR. She noted increase in rectal bleeding associated with recurrent rectal prolapse since she started chemotherapy for lung cancer in September,. She reports she had an increase in bleeding since yesterday with slight stream of blood from rectum this morning. She notes BRB on toilet paper every time she goes to the bathroom to have a BM - denies seeing blood in the toilet bowl. Has not has any overt bleeding in about 6 hours. Rectal bleeding is likely related to rectal irritation and trauma from recurrent rectal prolapse with worsening in the setting of thrombocytopenia related to chemo RECOMMENDATIONS 1. Agree with monitoring CBC post blood transfusion 2. Clear liquid diet today and NPO after mid night. 3. Pt is scheduled for a Flex Sig on 12/15/23 Procedures Date of Service Date of Service: 01/05/24
[2023-12-14] MEDS: clonazePAM 0.5 MG TABLET PO (17:24)
[2023-12-14] MEDS: Metoclopramide HCl 5 MG TABLET PO (17:24)
--- NOTE | 2023-12-14 17:25 | PC.NURSE ---
Patient awake and alert. Skin pwd, resp even and non labored. speaking in full, clear sentences. reports feeling anxious, medicated w/ PRN klonopin. patient aware of plan of care
[2023-12-14 18:45] LABS: Hemoglobin 9.8 g/dl (12.0-16.0)
[2023-12-14 18:46] LABS: Platelet Count 43 X10*3/uL (160-400)
[2023-12-14] MEDS: oxyCODONE HCl Immed Release 5 MG TABLET PO (21:18)
[2023-12-14] MEDS: hydrOXYzine HCL 50 MG TABLET PO (21:19)
[2023-12-14] MEDS: Sodium Chloride Tab 1 GM TABLET PO (21:42)
[2023-12-14] MEDS: cefTRIAXone sodium 1 GM in 0.9 % Sodium Chloride 50 ML IV (22:17)
--- NOTE | 2023-12-14 22:19 | PC.NURSE ---
Patient awake and alert. skin pwd. resp even and non labored. speaking in full, clear sentences. continues with 6/10 lower abdominal pain post prn oxycodone. urinary frequency, patient 1 assist to bedside commode. IV antibiotics infusing as ordered
[2023-12-14] MEDS: Mirtazapine 15 MG TABLET PO (23:41)
--- NOTE | 2023-12-14 23:50 | PC.NURSE ---
assumed care of pt at 2315. report received from [facility]
[2023-12-15] VITALS (15 sets, daily range): BP systolic 98–180; BP diastolic 60–82; PULSE 58–86; RESP 16–20; TEMP 36–37; O2SAT 92–100
[2023-12-15] MEDS: oxyCODONE HCl Immed Release 5 MG TABLET PO ×3 (04:31→21:14)
[2023-12-15] MEDS: clonazePAM 0.5 MG TABLET PO ×2 (04:32→13:48)
[2023-12-15] MEDS: Omeprazole 20 MG CAPSULE.DR PO (04:32)
[2023-12-15 06:29] LABS: Hematocrit 28.2 % (37.0-47.0); Hemoglobin 9.8 g/dl (12.0-16.0); Mean Corpuscular HGB Conc 34.8 g/dl (31.0-35.0); Mean Corpuscular Hemoglobin 31.6 pg (27.0-33.0); Mean Platelet Volume 9.5 fL (9.4-12.3); Red Cell Distribution Width 18.8 % (11.0-16.0); White Blood Count 6.8 X10*3/uL (4.8-10.8)
[2023-12-15 06:30] LABS: Platelet Count 41 X10*3/uL (160-400)
[2023-12-15 06:45] LABS: Anion Gap 11 (12-20); Blood Urea Nitrogen 12 mg/dL (9-16); Calcium 8.4 mg/dL (8.4-10.2); Carbon Dioxide 23 mmol/L (22-29); Chloride 95 mmol/L (96-108); Creatinine Clr Calc Pharmacy 81.7; Estimated Glomerular Filt Rate > 60; Glucose Random 99 mg/dL (60-115); Potassium 3.1 mmol/L (3.3-5.1); Sodium 126 mmol/L (135-145)
[2023-12-15 07:24] LABS: Band Neutrophils Percent 6 % (3-5); Eosinophils Absolute Manual 0.1 X10*3/uL (0.0-0.4); Eosinophils Percent Manual 1 % (0-4); Lymphocytes Absolute Manual 0.6 X10*3/uL (1.2-4.9); Lymphocytes Percent Manual 9 % (20-40); Monocytes Absolute Manual 0.3 X10*3/uL (0.1-1.2); Monocytes Percent Manual 5 % (2-11); Neutrophils Absolute Manual 5.8 X10*3/uL (2.0-8.3); Neutrophils Percent Manual 79 % (45-73)
[2023-12-15 07:25] LABS: RBC Morphology NOTED
[2023-12-15 07:28] LABS: Acanthocytes 1+ (0-2) /OIF; Dohle Bodies PRESENT; Ovalocytes 1+ (5-14) /OIF; Schistocytes 1+ (0-2) /OIF; Toxic Vacuolation PRESENT
[2023-12-15 07:29] LABS: Platelet Estimate DECREASED (NORMAL); Platelet Morphology Comment NORMAL
[2023-12-15] MEDS: Cholecalciferol (Vitamin D3) 25 MCG TABLET 50 MCG PO (08:04)
[2023-12-15] MEDS: Nicotine 7 MG PATCH.TD24 TRANSDERMA (08:04)
[2023-12-15] MEDS: Potassium Chloride ER 20 MEQ TAB.ER.PRT PO (08:04)
[2023-12-15] MEDS: Metoprolol Succinate ER 50 MG TAB.ER.24H PO (08:04)
[2023-12-15] MEDS: Tolterodine Tartrate LA 4 MG CAP.ER.24H PO (08:04)
[2023-12-15] MEDS: Metoclopramide HCl 5 MG TABLET PO ×3 (08:04→15:55)
[2023-12-15] MEDS: Sodium Chloride Tab 1 GM TABLET PO ×2 (08:04→21:14)
[2023-12-15] MEDS: 0.9 % Sodium Chloride Flush 3 ML SYRINGE IVFLUSH ×3 (08:05→21:15)
--- NOTE | 2023-12-15 08:20 | MHC.CM.PN ---
CM met with Patient at bedside and addressed IMM with her, providing Patient with the original and a copy has been placed on the chart. Patient lives alone in a 2 family house, on the second floor, with her Daughter/HCP/Cera living on the first floor. Patient has home O2 from [employer] and she has her own portable tank for the shuttle ride to home. CM has initiated and will follow for dc planning. PCP is Dr. Sarthak Person.
--- NOTE | 2023-12-15 10:19 | P.PNIM_ITS ---
Subjective Subjective Date of Service: 12/15/23 Interval History: no further bleeding Physical Exam 2 Vital Signs: Vital Signs: Last Vital Signs Temp 97.0 F 12/15/23 07:16 Pulse 74 12/15/23 07:16 Resp 20 12/15/23 07:16 BP 140/69 H 12/15/23 07:16 Pulse Ox 99 12/15/23 07:16 O2 Del Method Nasal Cannula 12/15/23 07:16 O2 Flow Rate 2 12/15/23 07:16 Oxygen Flow Rate 2 12/14/23 06:47 BMI result Body Mass Index 21.8 Const: Other: Constitutional - Awake and Alert, No apparent distress Eyes - PERRLA, EOMI Cardiovascular - S1S2, RRR, No edema Respiratory - Normal lung expansion, Normal respiratory effort, No respiratory distress, CTA bilaterally Gastrointestinal - NT / ND; +BS; No rebound or guarding. External hemorrhoids with open ulceration, but no active prolapse. Rectal exam performed by ED provider Extremities - no calf tenderness bilaterally, no swelling Skin - Warm/Dry Neurological - Alert & oriented x3 Psychological - Appropriate affect Objective Data Active Medications Acetaminophen (Acetaminophen 325 Mg Tablet) 650 mg PO Q6H PRN PRN Reason: Pain, Mild (Pain Scale 1-3), fever or headache Albuterol Sulfate (Albuterol Sulfate 90 Mcg 8 Gm Inhaler) 1 puff INHALE Q6H PRN PRN Reason: shortness of breath or wheezing Budesonide (Budesonide 180 Mcg Aer.Pow.Ba) 2 puff INHALE RBID MANUEL Calcium Carbonate (Calcium Carbonate 750 Mg Tab.Chew) 750 mg PO Q4H PRN PRN Reason: Heartburn Clonazepam (Clonazepam 0.5 Mg Tablet) 0.5 mg PO BID PRN PRN Reason: Anxiety Last Admin: 12/15/23 04:32 Dose: 0.5 mg Documented By: LISET Comments: for anxiety regarding procedure. Diphenoxylate HCl/Atropine (Diphenoxylate/Atrop 2.5/0.025 Tablet) 1 tab PO DAILY PRN PRN Reason: Diarrhea Fluticasone Propionate (Fluticasone Propionate Nasal 16 Gm [place]) 1 spray NOSTRIL-B DAILY MANUEL Guaifenesin/Dextromethorphan (Guaifenesin Dm 100/10/5 Ml 5 Ml Syrup) 10 ml PO TID PRN PRN Reason: cough Hydroxyzine HCl (Hydroxyzine Hcl 50 Mg Tablet) 50 mg PO BEDTIME [facility] Last Admin: 12/14/23 21:19 Dose: 50 mg Documented By: JULIO Ceftriaxone Sodium 1 gm/ (Sodium Chloride) 50 mls @ 100 mls/hr IV Q24H [facility] Last Infusion: 12/14/23 23:09 Dose: Infused Documented By: JULIO Loperamide HCl (Loperamide Hcl 2 Mg Capsule) 2 mg PO Q6H PRN PRN Reason: Diarrhea Magnesium Hydroxide (Milk Of Magnesia 30 Ml Oral.Susp) 30 ml PO DAILY PRN PRN Reason: Constipation Melatonin (Melatonin 3 Mg Tablet) 6 mg PO BEDTIME PRN PRN Reason: Insomnia Metoclopramide HCl (Metoclopramide Hcl 5 Mg Tablet) 5 mg PO TIDAC [facility] Last Admin: 12/15/23 08:04 Dose: 5 mg Documented By: CONRAD Metoprolol Succinate (Metoprolol Succinate Er 50 Mg Tab.Er.24h) 50 mg PO DAILY [facility]; Protocol Last Admin: 12/15/23 08:04 Dose: 50 mg Documented By: CONRAD Mirtazapine (Mirtazapine 15 Mg Tablet) 15 mg PO BEDTIME [facility] Last Admin: 12/14/23 23:41 Dose: 15 mg Documented By: RUBEN Nicotine (Nicotine 7 Mg Patch.Td24) 7 mg TRANSDERMA DAILY [facility] Last Admin: 12/15/23 08:04 Dose: 7 mg Documented By: CONRAD Nicotine Polacrilex (Nicotine Polacrilex Lozenge 4 Mg Lozenge) 4 mg BUCCAL Q8H PRN PRN Reason: Anxiety Non-Formulary Medication (Alosetron) 1 mg PO DAILY@0900 [facility] Omeprazole (Omeprazole 20 Mg Capsule.Dr) 20 mg PO DAILY@0630 [facility] Last Admin: 12/15/23 04:32 Dose: 20 mg Documented By: LISET Ondansetron HCl (Ondansetron Odt 8 Mg Tab.Rapdis) 8 mg TRANSLINGU Q8H PRN PRN Reason: Nausea And Vomiting Oxycodone HCl (Oxycodone Hcl Immed Release 5 Mg Tablet) 5 mg PO Q6H PRN PRN Reason: Pain, Severe (Pain Scale 7-10) Last Admin: 12/15/23 04:31 Dose: 5 mg Documented By: LISET Potassium Chloride (Potassium Chloride Er 20 Meq Tab.Er.Prt) 20 meq PO DAILY [facility] Last Admin: 12/15/23 08:04 Dose: 20 meq Documented By: CONRAD Sodium Biphosphate/Sodium Phosphate (Sodium Phosphate,[place]-Dibasic 133 Ml Enema) 133 ml [place] ONCE PRN PRN Reason: Hard stool after midnight Sodium Chloride (0.9 % Sodium Chloride Flush 3 Ml Syringe) 3 ml IVFLUSH QSHIFT [facility] Last Admin: 12/15/23 08:05 Dose: 3 ml Documented By: CONRAD Sodium Chloride (Sodium Chloride Tab 1 Gm Tablet) 1 gm PO BID [facility] Last Admin: 12/15/23 08:04 Dose: 1 gm Documented By: CONRAD Sucralfate (Sucralfate 1 Gm Tablet) 4 gm PO DAILY@1200 [facility] Tiotropium [place] (Tiotropium [place] 2.5 Mcg 1 Puff/2.5 Mcg Mist.Inhal) 2 puff INHALE RDAILY [facility] Tolterodine Tartrate (Tolterodine Tartrate [place] 4 Mg Cap.Er.24h) 4 mg PO DAILY@0900 [facility] Last Admin: 12/15/23 08:04 Dose: 4 mg Documented By: CONRAD Vitamin D (Cholecalciferol (Vitamin D3) 25 Mcg Tablet) 50 mcg PO DAILY@0900 [facility] Last Admin: 12/15/23 08:04 Dose: 50 mcg Documented By: CONRAD Labs 12/15/23 06:04 12/15/23 06:04 Labs: Laboratory Results - last 24 hr 12/14/23 12/14/23 12/14/23 06:59 11:01 12:34 MCV 94.0 MCH 32.5 MCHC 34.5 RDW 20.2 H Plt Count 56 L MPV 9.6 Immature Gran % (Auto) Neut % (Auto) Lymph % (Auto) [place] % (Auto) Eos % (Auto) Baso % (Auto) Lymph # (Auto) [place] # (Auto) Eos # (Auto) Baso # (Auto) Abs Immat Gran (auto) Absolute Neuts (auto) Absolute Nucleated RBC 0.000 Nucleated RBC % (auto) 0.0 Neutrophils % (Manual) 83 H Band Neutrophils % 1 L Lymphocytes % (Manual) 13 L Monocytes % (Manual) Eosinophils % (Manual) 3 Abs Neuts (Manual) 16.8 H Lymphocytes # (Manual) 2.6 Monocytes # (Manual) Eosinophils # (Manual) 0.6 H Toxic Vacuolation PRESENT Dohle Bodies PRESENT Platelet Estimate DECREASED Plt Morphology Comment NORMAL RBC Morphology NOTED Microcytosis 1+ (5-14) Tear Drop Cells 1+ (0-2) Ovalocytes Acanthocytes (Spur) Schistocytes 1+ (0-2) Anion Gap Estim Creat Clear Calc Estimated GFR Random Glucose Calcium Urine Color Yellow Urine Appearance Clear Urine pH 7.5 Ur Specific [place] >= 1.030 H Urine Protein Negative Urine Glucose (UA) Negative Urine Ketones Negative Urine Blood Trace H Urine Nitrite Positive H Ur Leukocyte Esterase Moderate (2+) H Urine RBC 0-2 Urine WBC >50 H Ur Squamous Epith Cells 0-2 Urine Bacteria Trace Hyaline Casts 0-2 Blood Type B Positive Antibody Screen NEGATIVE Crossmatch (AHG) See Detail 12/14/23 12/15/23 18:38 06:04 MCV 91.0 MCH 31.6 MCHC 34.8 RDW 18.8 H Plt Count 43 L 41 L MPV 9.5 Immature Gran % (Auto) Cancelled Neut % (Auto) Cancelled Lymph % (Auto) Cancelled [place] % (Auto) Cancelled Eos % (Auto) Cancelled Baso % (Auto) Cancelled Lymph # (Auto) Cancelled [place] # (Auto) Cancelled Eos # (Auto) Cancelled Baso # (Auto) Cancelled Abs Immat Gran (auto) Cancelled Absolute Neuts (auto) Cancelled Absolute Nucleated RBC 0.000 Nucleated RBC % (auto) 0.0 Neutrophils % (Manual) 79 H Band Neutrophils % 6 H Lymphocytes % (Manual) 9 L Monocytes % (Manual) 5 Eosinophils % (Manual) 1 Abs Neuts (Manual) 5.8 Lymphocytes # (Manual) 0.6 L Monocytes # (Manual) 0.3 Eosinophils # (Manual) 0.1 Toxic Vacuolation PRESENT Dohle Bodies PRESENT Platelet Estimate DECREASED Plt Morphology Comment NORMAL RBC Morphology NOTED Microcytosis Tear Drop Cells Ovalocytes 1+ (5-14) Acanthocytes (Spur) 1+ (0-2) Schistocytes 1+ (0-2) Anion Gap 11 L Estim Creat Clear Calc 81.7 Estimated GFR > 60 Random Glucose 99 Calcium 8.4 Urine Color Urine Appearance Urine pH Ur Specific [place] Urine Protein Urine Glucose (UA) Urine Ketones Urine Blood Urine Nitrite Ur Leukocyte Esterase Urine RBC Urine WBC Ur Squamous Epith Cells Urine Bacteria Hyaline Casts Blood Type Antibody Screen Crossmatch (AHG) Microbiology Microbiology Results: Microbiology 12/14/23 Unknown Urine Culture - Final Urine clean catch - Clean Catch Midstream 12/14/23 08:06 Blood Culture - Preliminary Blood - Venous No growth after 24 hours. Assessment and Plan (1) Acute lower GI bleeding: Status: Acute Plan 63F PMH metastatic small lung cancer on carboplatin/etoposide with atezolizumab, COPD, SIADH, HCV, hypertension, hyperlipidemia, GERD, IBS, rectal prolapse with history of lower GI bleed, chronic iron deficiency anemia, history of cocaine abuse presented with bright red blood per rectum Acute blood loss anemia due to lower GI bleed Transfused 1 unit and hemoglobin improved appropriately and has been stable Denies further bleed CT abdomen showed 2 areas of subtle arterial blush in the rectosigmoid at the level of anastomosis in the hepatic flexure suspicious for lower GI bleed Plan for flexible sigmoidoscopy today Monitor hemoglobin Acute on chronic thrombocytopenia Transfusing 1 unit of platelet prior to flex sig Monitor Asymptomatic bacteriuria Continue IV ceftriaxone, follow-up cultures Metastatic small-cell lung cancer Oncology following Acute on chronic hyponatremia due to SIADH Fluid restrict, monitor Hypertension Continue metoprolol DVT prophylaxis-mechanical due to lower GI bleed Full code reason for continued hospitalization: Plan for flex sig and monitoring of lower GI bleed Quality Stroke Does the patient have a stroke diagnosis?: No VTE Prior VTE?: No VTE Risk Level:: Medical - moderate - high VTE Device Contraindication: N/A - Device Ordered VTE Drug Contraindication: Treatment Not Indicated
[2023-12-15] MEDS: Fluticasone Propionate Nasal 16 GM SPRAY 1 SPRAY NOSTRIL-B (10:24)
--- NOTE | 2023-12-15 12:08 | MHC.SHP ---
Pre-Procedural Eval Section A - 24 Hr Update-Section A only Date of Service: 12/15/23 The patient is an INPATIENT: Yes The patient has been examined within 24 hours of the surgical procedure. The History & Physical has been completed within 30 days and I have reviewed it.: Yes Section B - Complete if H&P > 30 days Chief Complaint: gi bleed Allergies: Allergies Allergy/AdvReac Type Severity Reaction Status Date / Time No Known Allergies Allergy Unknown unknown Verified 12/14/23 06:50 [NO KNOWN ALLERGIES] Plan Diagnosis/Plan: Unchanged I have reviewed the history and physical and performed a pertinent physical examination on my patient. No changes have occurred unless specified. sigmoidoscopy to eval for rectal bleeding Time Spent With Patient Time: Total time managing care of this patient today ____ minutes.
--- NOTE | 2023-12-15 12:13 | PC.NURSE ---
iv patent x2
--- NOTE | 2023-12-15 12:23 | P.CONAN_ITS ---
HPI - Anesthesia Eval Consult details Narrative: 63 yo F presenting for flexible sigmoidoscopy [facility] Active Problems Active Problems: All Active Problems Abdominal pain (Acute) Acute lower GI bleeding (Acute) Small cell lung cancer (Acute) Adjustment disorder with mixed anxiety and depressed mood (Acute) Acute UTI (Acute) COPD (chronic obstructive pulmonary disease) (Acute) COPD exacerbation (Acute) Pulmonary nodule (Acute) Bronchitis (Acute) Nicotine dependence, cigarettes, uncomplicated (Acute) Allergic rhinitis (Acute) History of hepatitis C (Acute) IV drug user (Acute) Mitral valve prolapse (Acute) Mitral regurgitation (Acute) Sinus bradycardia (Acute) PVC (premature ventricular contraction) (Acute) Benign essential hypertension (Acute) Pure hypercholesterolemia (Acute) Impaired fasting glucose (Acute) Overactive bladder (Acute) Hematuria (Acute) GERD (gastroesophageal reflux disease) (Acute) Irritable bowel syndrome with diarrhea (Acute) 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 (Acute) Rectal bleeding (Acute) Gastroparesis (Acute) Anemia (Acute) Osteopenia (Acute ~2011) Vitamin D deficiency (Acute) Anxiety (Acute) Facet arthritis of lumbar region (Acute) Cervical spondylosis (Acute) Pain and swelling of left knee (Acute) Arthritis of carpometacarpal (CMC) joint of left thumb (Acute) Paresthesia of left leg (Acute) Past Medical History Medical History Small cell lung cancer COPD (chronic obstructive pulmonary disease) Small cell lung cancer (~08/2023) MDD (major depressive disorder), recurrent episode, moderate Abnormal CT scan, chest Mass of right lung Lung mass Bronchitis Rectal prolapse Nicotine dependence, cigarettes, uncomplicated Nonrheumatic mitral (valve) insufficiency Pulmonary nodule History of hepatitis C Osteopenia (~2011) IV drug user Endocarditis of mitral valve (~11/2017) Mitral valve prolapse Mitral regurgitation Early satiety Paresthesia of left leg Allergic rhinitis Facet arthritis of lumbar region Cervical spondylosis Vitamin D deficiency Pure hypercholesterolemia Benign essential hypertension GERD (gastroesophageal reflux disease) Anxiety Family History Family History Father Internal bleeding Mother Medical history unknown Family history of problems with anesthesia: No Surgical History Surgical History History of bronchoscopy (~2024) History of liver biopsy (~2009) History of partial colectomy (~2014) History of hysteroscopy (~2010) History of colonoscopy (~2017) History of Problems with Anesthesia: No Social History Social History Household Members: Children Housing: House Housing Other:: lives alone with her cat Malena Do you presently have visiting nurse or other home services: Yes (2 daughters assist with bringing meals) Alcohol intake: former Patient Tobacco Use Status: Current everyday Tobacco user Tobacco use type: Cigarette Cigarette Packs Per Day: 0.5 Years Smoked: 45 years (onset 15, 1/2-3/4ppd x 44yrs, 28pyh) e-Cigarette/Vaping Use: Never Used Second Hand Smoke Exposure: No Substance Use Type: Marijuana Advance Directives Date on File: 09/23/23 service: No Current occupational status: unemployed Sexual orientation: Straight/Heterosexual Gender identity: Female Cognitive needs: No Hearing needs: No Vision needs: Yes Meds Allergies Allergy/AdvReac Type Severity Reaction Status Date / Time No Known Allergies Allergy Unknown unknown Verified 12/14/23 06:50 [NO KNOWN ALLERGIES] Active Medications: Current Medications Acetaminophen (Acetaminophen 325 Mg Tablet) 650 mg PO Q6H PRN PRN Reason: Pain, Mild (Pain Scale 1-3), fever or headache Albuterol Sulfate (Albuterol Sulfate 90 Mcg 8 Gm Inhaler) 1 puff INHALE Q6H PRN PRN Reason: shortness of breath or wheezing Budesonide (Budesonide 180 Mcg Aer.Pow.Ba) 2 puff INHALE RBID MANUEL Calcium Carbonate (Calcium Carbonate 750 Mg Tab.Chew) 750 mg PO Q4H PRN PRN Reason: Heartburn Clonazepam (Clonazepam 0.5 Mg Tablet) 0.5 mg PO BID PRN PRN Reason: Anxiety Last Admin: 12/15/23 04:32 Dose: 0.5 mg Diphenoxylate HCl/Atropine (Diphenoxylate/Atrop 2.5/0.025 Tablet) 1 tab PO DAILY PRN PRN Reason: Diarrhea Fluticasone Propionate (Fluticasone Propionate Nasal 16 Gm [place]) 1 spray NOSTRIL-B DAILY MANUEL Last Admin: 12/15/23 10:24 Dose: 1 spray Guaifenesin/Dextromethorphan (Guaifenesin Dm 100/10/5 Ml 5 Ml Syrup) 10 ml PO TID PRN PRN Reason: cough Hydroxyzine HCl (Hydroxyzine Hcl 50 Mg Tablet) 50 mg PO BEDTIME [facility] Last Admin: 12/14/23 21:19 Dose: 50 mg Ceftriaxone Sodium 1 gm/ (Sodium Chloride) 50 mls @ 100 mls/hr IV Q24H [facility] Last Infusion: 12/14/23 23:09 Dose: Infused Loperamide HCl (Loperamide Hcl 2 Mg Capsule) 2 mg PO Q6H PRN PRN Reason: Diarrhea Magnesium Hydroxide (Milk Of Magnesia 30 Ml Oral.Susp) 30 ml PO DAILY PRN PRN Reason: Constipation Melatonin (Melatonin 3 Mg Tablet) 6 mg PO BEDTIME PRN PRN Reason: Insomnia Metoclopramide HCl (Metoclopramide Hcl 5 Mg Tablet) 5 mg PO TIDAC [facility] Last Admin: 12/15/23 08:04 Dose: 5 mg Metoprolol Succinate (Metoprolol Succinate Er 50 Mg Tab.Er.24h) 50 mg PO DAILY [facility]; Protocol Last Admin: 12/15/23 08:04 Dose: 50 mg Mirtazapine (Mirtazapine 15 Mg Tablet) 15 mg PO BEDTIME [facility] Last Admin: 12/14/23 23:41 Dose: 15 mg Nicotine (Nicotine 7 Mg Patch.Td24) 7 mg TRANSDERMA DAILY [facility] Last Admin: 12/15/23 08:04 Dose: 7 mg Nicotine Polacrilex (Nicotine Polacrilex Lozenge 4 Mg Lozenge) 4 mg BUCCAL Q8H PRN PRN Reason: Anxiety Non-Formulary Medication (Alosetron) 1 mg PO DAILY@0900 [facility] Omeprazole (Omeprazole 20 Mg Capsule.Dr) 20 mg PO DAILY@0630 [facility] Last Admin: 12/15/23 04:32 Dose: 20 mg Ondansetron HCl (Ondansetron Odt 8 Mg Tab.Rapdis) 8 mg TRANSLINGU Q8H PRN PRN Reason: Nausea And Vomiting Oxycodone HCl (Oxycodone Hcl Immed Release 5 Mg Tablet) 5 mg PO Q6H PRN PRN Reason: Pain, Severe (Pain Scale 7-10) Last Admin: 12/15/23 04:31 Dose: 5 mg Potassium Chloride (Potassium Chloride Er 20 Meq Tab.Er.Prt) 20 meq PO DAILY S Last Admin: 12/15/23 08:04 Dose: 20 meq Sodium Biphosphate/Sodium Phosphate (Sodium Phosphate,[place]-Dibasic 133 Ml Enema) 133 ml AL ONCE PRN PRN Reason: Hard stool after midnight Sodium Chloride (0.9 % Sodium Chloride Flush 3 Ml Syringe) 3 ml IVFLUSH QSHIFT [facility] Last Admin: 12/15/23 08:05 Dose: 3 ml Sodium Chloride (Sodium Chloride Tab 1 Gm Tablet) 1 gm PO BID [facility] Last Admin: 12/15/23 08:04 Dose: 1 gm Sucralfate (Sucralfate 1 Gm Tablet) 4 gm PO DAILY@1200 [facility] Tiotropium Purdin (Tiotropium Purdin 2.5 Mcg 1 Puff/2.5 Mcg Mist.Inhal) 2 puff INHALE RDAILY [facility] Tolterodine Tartrate (Tolterodine Tartrate La 4 Mg Cap.Er.24h) 4 mg PO DAILY@09 [facility] Last Admin: 12/15/23 08:04 Dose: 4 mg Vitamin D (Cholecalciferol (Vitamin D3) 25 Mcg Tablet) 50 mcg PO DAILY@09 [facility] Last Admin: 12/15/23 08:04 Dose: 50 mcg Home Medications ?Medication ?Instructions ?Recorded ?Confirmed ?Last Taken ?Type alosetron 0.5 mg tablet 1 mg PO DAILY@89907/22/23 12/14/23 12/14/23 History cholecalciferol (vitamin D3) 50 50 mcg PO DAILY@89907/22/23 12/14/23 12/14/23 History mcg (2,000 unit) capsule solifenacin 10 mg tablet 10 mg PO DAILY@89907/22/23 12/14/23 12/14/23 History sucralfate 1 gram tablet (Carafate) 4 g PO DAILY@1200 07/25/23 12/14/23 09/28/23 History budesonide 180 mcg/actuation 2 inh inhalation BID 09/28/23 12/14/23 09/28/23 History breath activated powder inhaler (Pulmicort Flexhaler) sodium chloride 1,000 mg soluble 1,000 mg PO BID 10/15/23 12/14/23 12/14/23 History tablet dexamethasone 4 mg tablet 4 mg PO WETH 10/21/23 12/14/23 Unknown History metoclopramide HCl 5 mg tablet 5 mg PO TIDAC 12/14/23 12/14/23 12/14/23 History mirtazapine 15 mg tablet 15 mg PO BEDTIME 12/14/23 12/14/23 Unknown History Exam Exam Date and Time: 12/15/23 1220 Height,Weight and Vital Signs: Height 5 ft 2 in Weight 53.977 kg Last Vital Signs Temp 98.5 F 12/15/23 12:10 Pulse 78 12/15/23 12:10 Resp 20 12/15/23 12:10 BP 162/82 H 12/15/23 12:10 Pulse Ox 94 12/15/23 12:10 O2 Del Method Nasal Cannula 12/15/23 12:10 O2 Flow Rate 2 12/15/23 12:10 Oxygen Flow Rate 2 12/14/23 06:47 Pertinent Lab Results Pertinent Lab Results: Laboratory Tests 12/14/23 12/14/23 12/14/23 06:55 06:59 07:03 WBC 26.9 H RBC 3.14 L Hgb 10.1 L Hct 29.0 L MCV 92.4 MCH 32.2 MCHC 34.8 RDW 20.0 H Plt Count 68 L D MPV 9.5 Immature Gran % (Auto) Cancelled Neut % (Auto) Cancelled Lymph % (Auto) Cancelled [place] % (Auto) Cancelled Eos % (Auto) Cancelled Baso % (Auto) Cancelled Lymph # (Auto) Cancelled [place] # (Auto) Cancelled Eos # (Auto) Cancelled Baso # (Auto) Cancelled Abs Immat Gran (auto) Cancelled Absolute Neuts (auto) Cancelled Absolute Nucleated RBC 0.000 Nucleated RBC % (auto) 0.0 Neutrophils % (Manual) 89 H Band Neutrophils % 4 Lymphocytes % (Manual) 5 L Monocytes % (Manual) Eosinophils % (Manual) 1 Myelocytes % 1 Abs Neuts (Manual) 25.0 H Lymphocytes # (Manual) 1.3 Monocytes # (Manual) Eosinophils # (Manual) 0.3 Myelocytes # 0.3 Toxic Vacuolation PRESENT Dohle Bodies PRESENT Platelet Estimate DECREASED Plt Morphology Comment NORMAL RBC Morphology NOTED Microcytosis 1+ (5-14) Tear Drop Cells 1+ (0-2) Ovalocytes Acanthocytes (Spur) Schistocytes 1+ (0-2) PT 13.2 INR 1.1 Sodium 133 L Potassium 3.2 L D Chloride 98 Carbon Dioxide 22 Anion Gap 16 BUN 18 H Creatinine 0.67 Estim Creat Clear Calc 67.1 Estimated GFR > 60 Random Glucose 121 H Lactic Acid Calcium 8.8 Magnesium 1.3 L* Total Bilirubin 0.9 AST 12 ALT < 5 Alkaline Phosphatase 105 B-Natriuretic Peptide 85 Total Protein 6.2 L Albumin 4.0 Urine Color Urine Appearance Urine pH Ur Specific [employer] Urine Protein Urine Glucose (UA) Urine Ketones Urine Blood Urine Nitrite Ur Leukocyte Esterase Urine RBC Urine WBC Ur Squamous Epith Cells Urine Bacteria Hyaline Casts Stool Occult Blood POSITIVE Blood Type B Positive Antibody Screen NEGATIVE Crossmatch ([facility]) See Detail 12/14/23 12/14/23 12/14/23 08:06 11:01 12:34 WBC 20.0 H RBC 2.65 L Hgb 8.6 L Hct 24.9 L MCV 94.0 MCH 32.5 MCHC 34.5 RDW 20.2 H Plt Count 56 L MPV 9.6 Immature Gran % (Auto) Neut % (Auto) Lymph % (Auto) [place] % (Auto) Eos % (Auto) Baso % (Auto) Lymph # (Auto) [place] # (Auto) Eos # (Auto) Baso # (Auto) Abs Immat Gran (auto) Absolute Neuts (auto) Absolute Nucleated RBC 0.000 Nucleated RBC % (auto) 0.0 Neutrophils % (Manual) 83 H Band Neutrophils % 1 L Lymphocytes % (Manual) 13 L Monocytes % (Manual) Eosinophils % (Manual) 3 Myelocytes % Abs Neuts (Manual) 16.8 H Lymphocytes # (Manual) 2.6 Monocytes # (Manual) Eosinophils # (Manual) 0.6 H Myelocytes # Toxic Vacuolation PRESENT Dohle Bodies PRESENT Platelet Estimate DECREASED Plt Morphology Comment NORMAL RBC Morphology NOTED Microcytosis 1+ (5-14) Tear Drop Cells 1+ (0-2) Ovalocytes Acanthocytes (Spur) Schistocytes 1+ (0-2) PT INR Sodium Potassium Chloride Carbon Dioxide Anion Gap BUN Creatinine Estim Creat Clear Calc Estimated GFR Random Glucose Lactic Acid 1.2 Calcium Magnesium Total Bilirubin AST ALT Alkaline Phosphatase B-Natriuretic Peptide Total Protein Albumin Urine Color Yellow Urine Appearance Clear Urine pH 7.5 Ur Specific [employer] >= 1.030 H Urine Protein Negative Urine Glucose (UA) Negative Urine Ketones Negative Urine Blood Trace H Urine Nitrite Positive H Ur Leukocyte Esterase Moderate (2+) H Urine RBC 0-2 Urine WBC >50 H Ur Squamous Epith Cells 0-2 Urine Bacteria Trace Hyaline Casts 0-2 Stool Occult Blood Blood Type Antibody Screen Crossmatch ([facility]) 12/14/23 12/15/23 18:38 06:04 WBC 6.8 RBC 3.10 L Hgb 9.8 L 9.8 L Hct 28.0 L 28.2 L MCV 91.0 MCH 31.6 MCHC 34.8 RDW 18.8 H Plt Count 43 L 41 L MPV 9.5 Immature Gran % (Auto) Cancelled Neut % (Auto) Cancelled Lymph % (Auto) Cancelled [place] % (Auto) Cancelled Eos % (Auto) Cancelled Baso % (Auto) Cancelled Lymph # (Auto) Cancelled [place] # (Auto) Cancelled Eos # (Auto) Cancelled Baso # (Auto) Cancelled Abs Immat Gran (auto) Cancelled Absolute Neuts (auto) Cancelled Absolute Nucleated RBC 0.000 Nucleated RBC % (auto) 0.0 Neutrophils % (Manual) 79 H Band Neutrophils % 6 H Lymphocytes % (Manual) 9 L Monocytes % (Manual) 5 Eosinophils % (Manual) 1 Myelocytes % Abs Neuts (Manual) 5.8 Lymphocytes # (Manual) 0.6 L Monocytes # (Manual) 0.3 Eosinophils # (Manual) 0.1 Myelocytes # Toxic Vacuolation PRESENT Dohle Bodies PRESENT Platelet Estimate DECREASED Plt Morphology Comment NORMAL RBC Morphology NOTED Microcytosis Tear Drop Cells Ovalocytes 1+ (5-14) Acanthocytes (Spur) 1+ (0-2) Schistocytes 1+ (0-2) PT INR Sodium 126 L Potassium 3.1 L Chloride 95 L Carbon Dioxide 23 Anion Gap 11 L BUN 12 Creatinine 0.55 Estim Creat Clear Calc 81.7 Estimated GFR > 60 Random Glucose 99 Lactic Acid Calcium 8.4 Magnesium Total Bilirubin AST ALT Alkaline Phosphatase B-Natriuretic Peptide Total Protein Albumin Urine Color Urine Appearance Urine pH Ur Specific [employer] Urine Protein Urine Glucose (UA) Urine Ketones Urine Blood Urine Nitrite Ur Leukocyte Esterase Urine RBC Urine WBC Ur Squamous Epith Cells Urine Bacteria Hyaline Casts Stool Occult Blood Blood Type Antibody Screen Crossmatch ([facility]) Airway Mallampati Class: I TM Dist: >3cm Neck ROM: Limited Denture: Upper and Lower Heart: S1S2 Lungs: CTAB Assessment and Plan Assessment Anesthesia Assessment: Anesthesia Plan Discussed and Chart Reviewed Final Anesthetic Review Family History of Problems with Anesthesia: No History of Problems with Anesthesia: No NPO: Yes ASA Class: III Final Preanesthetic Review: No Changes in Pt Med Stat, Meds/Allgs Chart Reviewed, Consent Obtained/Reviewed and Anes Risks/Benef Reviewed Patient Risk: Intermediate Procedure Risk: Low Anesthetic Plan Anesthetic Plan: MAC: and Agree w/ Assess. and Plan Disposition: Standard PACU
--- NOTE | 2023-12-15 12:57 | W.PM.OPN ---
Operative Note Operative Note Date of Service: 12/15/23 Narrative: Procedure Description: sigmoidoscopy Indication: rectal bleeding Anesthesia: MAC Sigmoidoscopy Instrument: Upper endoscope Colonoscopy Monitoring: Vital signs and clinical assessment, continuous EKG monitoring, Pulse oximetry, Carbon Dioxide monitoring and blood pressure monitoring were done throughout the procedure. Procedure: The patient was placed in the left lateral decubitis position and pre-procedure medications were administered. After a digital rectal examination of the ano-rectum, the video colonoscope was inserted into the rectum and advanced through the colon to the transverse colon The scope was slowly withdrawn in a retrograde panoramic fashion and the colon mucosa was carefully examined . Findings and interventions are described below. Procedure Difficulty: easy Findings: Transverse Colon: no blood seen, normal stool Descedning: normal Sigmoid Colon: scattered diverticulosis Rectum: slightly granular mucosa , retroflexion with small internal hemorrhoids Anorectum - normal Colon preparation: fair Impression and Post Procedure Diagnosis: internal hemorrhoids diverticulosis no active bleeding noted Plan: high fiber diet, anusol supps prn, avoid straining at stool Above findings were reviewed with the patient and relevant handouts were provided if indicated.
[2023-12-15] MEDS: Sucralfate 1 GM TABLET 4 GM PO (13:53)
[2023-12-15] MEDS: Tiotropium Bromide 2.5 mcg 1 PUFF/2.5 MCG MIST.INHAL 2 PUFF INHALE (14:18)
[2023-12-15] MEDS: Melatonin 3 MG TABLET 6 MG PO (21:14)
[2023-12-15] MEDS: Mirtazapine 15 MG TABLET PO (21:15)
[2023-12-15] MEDS: hydrOXYzine HCL 50 MG TABLET PO (21:15)
[2023-12-15] MEDS: cefTRIAXone sodium 1 GM in 0.9 % Sodium Chloride 50 ML IV (21:15)
[2023-12-16] VITALS (8 sets, daily range): BP systolic 119–177; BP diastolic 65–95; PULSE 58–65; RESP 16–21; TEMP 35.9–36.6; O2SAT 95–99
[2023-12-16] MEDS: Ondansetron ODT 8 MG TAB.RAPDIS TRANSLINGU (03:52)
[2023-12-16] MEDS: Omeprazole 20 MG CAPSULE.DR PO (06:22)
[2023-12-16 06:56] LABS: Hematocrit 26.6 % (37.0-47.0); Hemoglobin 9.3 g/dl (12.0-16.0); Mean Corpuscular Hemoglobin 30.9 pg (27.0-33.0); Mean Corpuscular Volume 88.4 fL (80.0-98.0); Mean Platelet Volume 9.9 fL (9.4-12.3); Red Blood Count 3.01 X10*6/uL (4.20-5.50); Red Cell Distribution Width 17.6 % (11.0-16.0)
[2023-12-16 06:57] LABS: Platelet Count 58 X10*3/uL (160-400)
[2023-12-16 07:16] LABS: Anion Gap 12 (12-20); Blood Urea Nitrogen 12 mg/dL (9-16); Calcium 8.2 mg/dL (8.4-10.2); Carbon Dioxide 25 mmol/L (22-29); Chloride 91 mmol/L (96-108); Creatinine Clr Calc Pharmacy 86.4; Estimated Glomerular Filt Rate > 60; Glucose Fasting 93 mg/dL (60-99); Potassium 3.4 mmol/L (3.3-5.1); Sodium 125 mmol/L (135-145)
[2023-12-16] MEDS: Budesonide 180 MCG AER.POW.BA 2 PUFF INHALE ×2 (07:35→19:47)
[2023-12-16] MEDS: Tiotropium Bromide 2.5 mcg 1 PUFF/2.5 MCG MIST.INHAL 2 PUFF INHALE (07:35)
[2023-12-16] MEDS: Cholecalciferol (Vitamin D3) 25 MCG TABLET 50 MCG PO (08:03)
[2023-12-16] MEDS: Tolterodine Tartrate LA 4 MG CAP.ER.24H PO (08:03)
[2023-12-16] MEDS: Nicotine 7 MG PATCH.TD24 TRANSDERMA (08:03)
[2023-12-16] MEDS: Potassium Chloride ER 20 MEQ TAB.ER.PRT PO (08:03)
[2023-12-16] MEDS: Metoclopramide HCl 5 MG TABLET PO ×3 (08:04→17:39)
[2023-12-16] MEDS: Sodium Chloride Tab 1 GM TABLET PO ×4 (08:04→19:59)
[2023-12-16] MEDS: 0.9 % Sodium Chloride Flush 3 ML SYRINGE IVFLUSH ×2 (08:04→19:59)
[2023-12-16] MEDS: Metoprolol Succinate ER 50 MG TAB.ER.24H PO (08:04)
[2023-12-16] MEDS: Acetaminophen 325 MG TABLET 650 MG PO (08:04)
[2023-12-16] MEDS: Fluticasone Propionate Nasal 16 GM SPRAY 1 SPRAY NOSTRIL-B (08:05)
[2023-12-16 08:17] LABS: Magnesium 1.2 mg/dL (1.6-2.6)
[2023-12-16] MEDS: Magnesium Sulfate/H2O 2 GM/50 ML PIGGYBACK IV ×2 (08:48→17:39)
--- NOTE | 2023-12-16 08:54 | HO.POSTANES ---
Post Anesthesia Evaluation Post Anesthesia Evaluation Date of Service: 12/15/23 Vital Signs: Vital Signs Temp Pulse Resp BP Pulse Ox O2 Del Method O2 Flow Rate 12/16/23 07:35 65 16 12/16/23 06:46 98 F 65 16 119/73 96 Nasal Cannula 2 12/16/23 03:32 97.3 F 61 17 150/65 H 99 Nasal Cannula 2 12/15/23 23:52 98 F 63 16 121/72 92 Room Air Anesthesia: Monitored Mental Status: Awake Pain Control: Satisfactory Nausea/Vomiting: None Hydration: Adequate Anesthesia-Related Issues: No Anes. Related Issues
--- NOTE | 2023-12-16 09:20 | PM.CNNEP ---
History of Present Illness Reason for Consult Consult date: 12/16/23 Reason for consult: Hyponatremia Chief Complaint Chief complaint: gi bleed History of Present Illness Narrative: 63-year-old female with metastatic small-cell lung cancer on carboplatin/etoposide with atezolizumab last infusion 12/07 with last Neulasta on 12/09 following with NICKOLAS Sandoval, history of hepatitis-C, history of IV cocaine abuse, hypertension, presented to the ED for evaluation of BRBPR. No abd pain, n/v/d, melena. No fevers, chills, dysuria, hematuria, increased urinary frequency. Renal function baseline, sodium 133, potassium 3.2. Magnesium 1.3, lytes otherwise normal. Stool occult blood positive. CT abdomen/pelvis shows 2 areas of subtle arterial blush seen in the rectosigmoid colon at the level of the anastomosis in the hepatic flexure suspicious for lower GI bleed is also mild diffuse bladder wall thickening possibly due to underdistention though subtle cystitis can not be excluded there is a hypodensity in the hepatic segment IV B that see the priors, likely consistent with an area of altered vascular perfusion or focal fatty infiltration among other nonacute findings. Her sodium has dropped further.Nephrology has been consulted to assist in her clinical care during her current hospital stay Review of Systems Review of Systems Yes all other systems are reviewed and are negative PMFSH Past Medical History Medical History Small cell lung cancer COPD (chronic obstructive pulmonary disease) Small cell lung cancer (~08/2023) MDD (major depressive disorder), recurrent episode, moderate Abnormal CT scan, chest Mass of right lung Lung mass Bronchitis Rectal prolapse Nicotine dependence, cigarettes, uncomplicated Nonrheumatic mitral (valve) insufficiency Pulmonary nodule History of hepatitis C Osteopenia (~2011) IV drug user Endocarditis of mitral valve (~11/2017) Mitral valve prolapse Mitral regurgitation Early satiety Paresthesia of left leg Allergic rhinitis Facet arthritis of lumbar region Cervical spondylosis Vitamin D deficiency Pure hypercholesterolemia Benign essential hypertension GERD (gastroesophageal reflux disease) Anxiety Family History Family History Father Internal bleeding Mother Medical history unknown Surgical History Surgical History History of bronchoscopy (~2023) History of liver biopsy (~2009) History of partial colectomy (~2014) History of hysteroscopy (~2010) History of colonoscopy (~2017) Social History Social History Household Members: Children Housing: House Housing Other:: lives alone with her cat Malena Do you presently have visiting nurse or other home services: Yes (2 daughters assist with bringing meals) Alcohol intake: former Patient Tobacco Use Status: Current everyday Tobacco user Tobacco use type: Cigarette Cigarette Packs Per Day: 0.5 Years Smoked: 45 years (onset 15, 1/2-3/4ppd x 44yrs, 28pyh) e-Cigarette/Vaping Use: Never Used Second Hand Smoke Exposure: No Substance Use Type: Marijuana Advance Directives Date on File: 09/23/23 service: No Current occupational status: unemployed Sexual orientation: Straight/Heterosexual Gender identity: Female Cognitive needs: No Hearing needs: No Vision needs: Yes Meds Allergies Allergy/AdvReac Type Severity Reaction Status Date / Time No Known Allergies Allergy Unknown unknown Verified 12/14/23 06:50 [NO KNOWN ALLERGIES] Active Medications: Current Medications Acetaminophen (Acetaminophen 325 Mg Tablet) 650 mg PO Q6H PRN PRN Reason: Pain, Mild (Pain Scale 1-3), fever or headache Last Admin: 12/16/23 08:04 Dose: 650 mg Albuterol Sulfate (Albuterol Sulfate 90 Mcg 8 Gm Inhaler) 1 puff INHALE Q6H PRN PRN Reason: shortness of breath or wheezing Budesonide (Budesonide 180 Mcg Aer.Pow.Ba) 2 puff INHALE RBID MAN[facility]EL Last Admin: 12/16/23 07:35 Dose: 2 puff Calcium Carbonate (Calcium Carbonate 750 Mg Tab.Chew) 750 mg PO Q4H PRN PRN Reason: Heartburn Clonazepam (Clonazepam 0.5 Mg Tablet) 0.5 mg PO BID PRN PRN Reason: Anxiety Last Admin: 12/15/23 13:48 Dose: 0.5 mg Diphenoxylate HCl/Atropine (Diphenoxylate/Atrop 2.5/0.025 Tablet) 1 tab PO DAILY PRN PRN Reason: Diarrhea Fluticasone Propionate (Fluticasone Propionate Nasal 16 Gm [place]) 1 spray NOSTRIL-B DAILY [facility] Last Admin: 12/16/23 08:05 Dose: 1 spray Guaifenesin/Dextromethorphan (Guaifenesin Dm 100/10/5 Ml 5 Ml Syrup) 10 ml PO TID PRN PRN Reason: cough Hydroxyzine HCl (Hydroxyzine Hcl 50 Mg Tablet) 50 mg PO BEDTIME [facility] Last Admin: 12/15/23 21:15 Dose: 50 mg Ceftriaxone Sodium 1 gm/ (Sodium Chloride) 50 mls @ 100 mls/hr IV Q24H [facility] Last Infusion: 12/15/23 21:45 Dose: Infused Magnesium Sulfate (Magnesium Sulfate/H2o) 2 gm in 50 mls @ 25 mls/hr IV Q8H [facility] Stop: 12/16/23 18:29 Last Admin: 12/16/23 08:48 Dose: 25 mls/hr Loperamide HCl (Loperamide Hcl 2 Mg Capsule) 2 mg PO Q6H PRN PRN Reason: Diarrhea Magnesium Hydroxide (Milk Of Magnesia 30 Ml Oral.Susp) 30 ml PO DAILY PRN PRN Reason: Constipation Melatonin (Melatonin 3 Mg Tablet) 6 mg PO BEDTIME PRN PRN Reason: Insomnia Last Admin: 12/15/23 21:14 Dose: 6 mg Metoclopramide HCl (Metoclopramide Hcl 5 Mg Tablet) 5 mg PO TIDAC [facility] Last Admin: 12/16/23 08:04 Dose: 5 mg Metoprolol Succinate (Metoprolol Succinate Er 50 Mg Tab.Er.24h) 50 mg PO DAILY [facility]; Protocol Last Admin: 12/16/23 08:04 Dose: 50 mg Mirtazapine (Mirtazapine 15 Mg Tablet) 15 mg PO BEDTIME [facility] Last Admin: 12/15/23 21:15 Dose: 15 mg Naloxone HCl (Naloxone Hcl 0.4 Mg/Ml Vial) 0.04 mg IVPUSH Q5M PRN PRN Reason: Excessive sedation or RR < 8 Nicotine (Nicotine 7 Mg Patch.Td24) 7 mg TRANSDERMA DAILY [facility] Last Admin: 12/16/23 08:03 Dose: 7 mg Nicotine Polacrilex (Nicotine Polacrilex Lozenge 4 Mg Lozenge) 4 mg BUCCAL Q8H PRN PRN Reason: Anxiety Omeprazole (Omeprazole 20 Mg Capsule.Dr) 20 mg PO DAILY@0630 [facility] Last Admin: 12/16/23 06:22 Dose: 20 mg Ondansetron HCl (Ondansetron Odt 8 Mg Tab.Rapdis) 8 mg TRANSLINGU Q8H PRN PRN Reason: Nausea And Vomiting Last Admin: 12/16/23 03:52 Dose: 8 mg Oxycodone HCl (Oxycodone Hcl Immed Release 5 Mg Tablet) 5 mg PO Q6H PRN PRN Reason: Pain, Severe (Pain Scale 7-10) Last Admin: 12/15/23 21:14 Dose: 5 mg Potassium Chloride (Potassium Chloride Er 20 Meq Tab.Er.Prt) 20 meq PO DAILY [facility] Last Admin: 12/16/23 08:03 Dose: 20 meq Sodium Biphosphate/Sodium Phosphate (Sodium Phosphate,[place]-Dibasic 133 Ml Enema) 133 ml [place] ONCE PRN PRN Reason: Hard stool after midnight Sodium Chloride (0.9 % Sodium Chloride Flush 3 Ml Syringe) 3 ml IVFLUSH QSHIFT [facility] Last Admin: 12/16/23 08:04 Dose: 3 ml Sodium Chloride (Sodium Chloride Tab 1 Gm Tablet) 1 gm PO QID [facility] Last Admin: 12/16/23 08:04 Dose: 1 gm Sucralfate (Sucralfate 1 Gm Tablet) 4 gm PO DAILY@1200 [facility] Tiotropium [place] (Tiotropium [place] 2.5 Mcg 1 Puff/2.5 Mcg Mist.Inhal) 2 puff INHALE RDAILY [facility] Last Admin: 12/16/23 07:35 Dose: 2 puff Tolterodine Tartrate (Tolterodine Tartrate [place] 4 Mg Cap.Er.24h) 4 mg PO DAILY@899 [facility] Last Admin: 12/16/23 08:03 Dose: 4 mg Vitamin D (Cholecalciferol (Vitamin D3) 25 Mcg Tablet) 50 mcg PO DAILY@899 [facility] Last Admin: 12/16/23 08:03 Dose: 50 mcg Home Medications ?Medication ?Instructions ?Recorded ?Confirmed ?Last Taken ?Type alosetron 0.5 mg tablet 1 mg PO DAILY@89907/22/23 12/14/23 12/14/23 History cholecalciferol (vitamin D3) 50 50 mcg PO DAILY@89907/22/23 12/14/23 12/14/23 History mcg (2,000 unit) capsule solifenacin 10 mg tablet 10 mg PO DAILY@0900 07/22/23 12/14/23 12/14/23 History sucralfate 1 gram tablet (Carafate) 4 g PO DAILY@1200 07/25/23 12/14/23 09/28/23 History budesonide 180 mcg/actuation 2 inh inhalation BID 09/28/23 12/14/23 09/28/23 History breath activated powder inhaler (Pulmicort Flexhaler) sodium chloride 1,000 mg soluble 1,000 mg PO BID 10/15/23 12/14/23 12/14/23 History tablet dexamethasone 4 mg tablet 4 mg PO WETH 10/21/23 12/14/23 Unknown History metoclopramide HCl 5 mg tablet 5 mg PO TIDAC 12/14/23 12/14/23 12/14/23 History mirtazapine 15 mg tablet 15 mg PO BEDTIME 12/14/23 12/14/23 Unknown History Physical Exam Vital Signs: Last Vital Signs Temp 98 F 12/16/23 06:46 Pulse 65 12/16/23 07:35 Resp 16 12/16/23 07:35 BP 119/73 12/16/23 06:46 Pulse Ox 96 12/16/23 06:46 O2 Del Method Nasal Cannula 12/16/23 06:46 O2 Flow Rate 2 12/16/23 06:46 Oxygen Flow Rate 2 12/14/23 06:47 BMI result Body Mass Index 21.8 Const General: no acute distress Eyes EOM: EOMs intact bilaterally Resp Auscultation: diminished lung sounds Cardio Rate: regular rate GI Palpation (GI): Soft to palpation Neuro General: moves all extremities Results Lab Results 12/16/23 06:09 12/16/23 06:09 Lab results: Chemistry 12/14/23 12/15/23 12/16/23 06:55 06:04 06:09 Sodium 133 L 126 L 125 L Potassium 3.2 L D 3.1 L 3.4 Carbon Dioxide 22 23 25 BUN 18 H 12 12 Creatinine 0.67 0.55 0.52 Calcium 8.8 8.4 8.2 L Hematology 12/14/23 12/14/23 12/14/23 06:55 12:34 18:38 WBC 26.9 H 20.0 H Hgb 10.1 L 8.6 L 9.8 L Plt Count 68 L D 56 L 43 L 12/15/23 12/16/23 06:04 06:09 WBC 6.8 4.0 L Hgb 9.8 L 9.3 L Plt Count 41 L 58 L D Urinalysis 12/14/23 11:01 Urine Color Yellow Urine Appearance Clear Urine pH 7.5 Ur Specific [place] >= 1.030 H Urine Protein Negative Urine Glucose (UA) Negative Urine Ketones Negative Urine Blood Trace H Urine Nitrite Positive H Ur Leukocyte Esterase Moderate (2+) H Urine RBC 0-2 Urine WBC >50 H Ur Squamous Epith Cells 0-2 Hyaline Casts 0-2 Assessment and Plan (1) Hyponatremia: Status: Acute Plan Hyponatremia due to excess ADH Could not tolerate oral urea in the past Euvolemic;Increased PO NaCl Needs fluid restriction. Monitor serum sodium closely Procedures Date of Service Date of Service: 12/16/23
--- NOTE | 2023-12-16 09:50 | HO.PM.IMPN ---
Subjective Subjective Date of Service: 12/16/23 Interval History: teary, wants to go home Physical Exam Vital Signs: Vital Signs: Last Vital Signs Temp 98 F 12/16/23 06:46 Pulse 65 12/16/23 07:35 Resp 16 12/16/23 07:35 BP 119/73 12/16/23 06:46 Pulse Ox 96 12/16/23 06:46 O2 Del Method Nasal Cannula 12/16/23 06:46 O2 Flow Rate 2 12/16/23 06:46 Oxygen Flow Rate 2 12/14/23 06:47 BMI result Body Mass Index 21.8 Const: General: no acute distress Eyes: EOM: EOMs intact bilaterally Resp: Auscultation: diminished lung sounds Cardio: Rate: regular rate GI: Palpation (GI): Soft to palpation Neuro: General: moves all extremities Objective Data Active Medications Acetaminophen (Acetaminophen 325 Mg Tablet) 650 mg PO Q6H PRN PRN Reason: Pain, Mild (Pain Scale 1-3), fever or headache Last Admin: 12/16/23 08:04 Dose: 650 mg Documented By: JATINDER Albuterol Sulfate (Albuterol Sulfate 90 Mcg 8 Gm Inhaler) 1 puff INHALE Q6H PRN PRN Reason: shortness of breath or wheezing Budesonide (Budesonide 180 Mcg Aer.Pow.Ba) 2 puff INHALE RBID [facility] Last Admin: 12/16/23 07:35 Dose: 2 puff Documented By: ADRIANA Calcium Carbonate (Calcium Carbonate 750 Mg Tab.Chew) 750 mg PO Q4H PRN PRN Reason: Heartburn Clonazepam (Clonazepam 0.5 Mg Tablet) 0.5 mg PO BID PRN PRN Reason: Anxiety Last Admin: 12/15/23 13:48 Dose: 0.5 mg Documented By: CONRAD Diphenoxylate HCl/Atropine (Diphenoxylate/Atrop 2.5/0.025 Tablet) 1 tab PO DAILY PRN PRN Reason: Diarrhea Fluticasone Propionate (Fluticasone Propionate Nasal 16 Gm [place]) 1 spray NOSTRIL-B DAILY [facility] Last Admin: 12/16/23 08:05 Dose: 1 spray Documented By: JATINDER Guaifenesin/Dextromethorphan (Guaifenesin Dm 100/10/5 Ml 5 Ml Syrup) 10 ml PO TID PRN PRN Reason: cough Hydroxyzine HCl (Hydroxyzine Hcl 50 Mg Tablet) 50 mg PO BEDTIME [facility] Last Admin: 12/15/23 21:15 Dose: 50 mg Documented By: LISET Ceftriaxone Sodium 1 gm/ (Sodium Chloride) 50 mls @ 100 mls/hr IV Q24H [facility] Last Infusion: 12/15/23 21:45 Dose: Infused Documented By: LISET Magnesium Sulfate (Magnesium Sulfate/H2o) 2 gm in 50 mls @ 25 mls/hr IV Q8H [facility] Stop: 12/16/23 18:29 Last Admin: 12/16/23 08:48 Dose: 25 mls/hr Documented By: JATINDER Loperamide HCl (Loperamide Hcl 2 Mg Capsule) 2 mg PO Q6H PRN PRN Reason: Diarrhea Magnesium Hydroxide (Milk Of Magnesia 30 Ml Oral.Susp) 30 ml PO DAILY PRN PRN Reason: Constipation Melatonin (Melatonin 3 Mg Tablet) 6 mg PO BEDTIME PRN PRN Reason: Insomnia Last Admin: 12/15/23 21:14 Dose: 6 mg Documented By: LISET Metoclopramide HCl (Metoclopramide Hcl 5 Mg Tablet) 5 mg PO TIDAC [facility] Last Admin: 12/16/23 08:04 Dose: 5 mg Documented By: JATINDER Metoprolol Succinate (Metoprolol Succinate Er 50 Mg Tab.Er.24h) 50 mg PO DAILY [facility]; Protocol Last Admin: 12/16/23 08:04 Dose: 50 mg Documented By: JATINDER Mirtazapine (Mirtazapine 15 Mg Tablet) 15 mg PO BEDTIME [facility] Last Admin: 12/15/23 21:15 Dose: 15 mg Documented By: LISET Naloxone HCl (Naloxone Hcl 0.4 Mg/Ml Vial) 0.04 mg IVPUSH Q5M PRN PRN Reason: Excessive sedation or RR < 8 Nicotine (Nicotine 7 Mg Patch.Td24) 7 mg TRANSDERMA DAILY [facility] Last Admin: 12/16/23 08:03 Dose: 7 mg Documented By: JATINDER Nicotine Polacrilex (Nicotine Polacrilex Lozenge 4 Mg Lozenge) 4 mg BUCCAL Q8H PRN PRN Reason: Anxiety Omeprazole (Omeprazole 20 Mg Capsule.Dr) 20 mg PO DAILY@0630 [facility] Last Admin: 12/16/23 06:22 Dose: 20 mg Documented By: LISET Ondansetron HCl (Ondansetron Odt 8 Mg Tab.Rapdis) 8 mg TRANSLINGU Q8H PRN PRN Reason: Nausea And Vomiting Last Admin: 12/16/23 03:52 Dose: 8 mg Documented By: LISET Comments: developed Nausea w/vomiting Oxycodone HCl (Oxycodone Hcl Immed Release 5 Mg Tablet) 5 mg PO Q6H PRN PRN Reason: Pain, Severe (Pain Scale 7-10) Last Admin: 12/15/23 21:14 Dose: 5 mg Documented By: LISET Potassium Chloride (Potassium Chloride Er 20 Meq Tab.Er.Prt) 20 meq PO DAILY [facility] Last Admin: 12/16/23 08:03 Dose: 20 meq Documented By: JATINDER Sodium Biphosphate/Sodium Phosphate (Sodium Phosphate,[place]-Dibasic 133 Ml Enema) 133 ml [place] ONCE PRN PRN Reason: Hard stool after midnight Sodium Chloride (0.9 % Sodium Chloride Flush 3 Ml Syringe) 3 ml IVFLUSH QSHIFT [facility] Last Admin: 12/16/23 08:04 Dose: 3 ml Documented By: JATINDER Sodium Chloride (Sodium Chloride Tab 1 Gm Tablet) 1 gm PO QID [facility] Last Admin: 12/16/23 08:04 Dose: 1 gm Documented By: JATINDER Sucralfate (Sucralfate 1 Gm Tablet) 4 gm PO DAILY@1200 [facility] Tiotropium [place] (Tiotropium [place] 2.5 Mcg 1 Puff/2.5 Mcg Mist.Inhal) 2 puff INHALE RDAILY [facility] Last Admin: 12/16/23 07:35 Dose: 2 puff Documented By: ADRIANA Tolterodine Tartrate (Tolterodine Tartrate [place] 4 Mg Cap.Er.24h) 4 mg PO DAILY@0900 [facility] Last Admin: 12/16/23 08:03 Dose: 4 mg Documented By: JATINDER Vitamin D (Cholecalciferol (Vitamin D3) 25 Mcg Tablet) 50 mcg PO DAILY@09 [facility] Last Admin: 12/16/23 08:03 Dose: 50 mcg Documented By: JATINDER Labs 12/16/23 06:09 12/16/23 06:09 Labs: Laboratory Results - last 24 hr 12/14/23 12/16/23 06:59 06:09 MCV 88.4 MCH 30.9 MCHC 35.0 RDW 17.6 H Plt Count 58 L D MPV 9.9 Absolute Nucleated RBC 0.000 Nucleated RBC % (auto) 0.0 Anion Gap 12 Estim Creat Clear Calc 86.4 Estimated GFR > 60 Fasting Glucose 93 Calcium 8.2 L Magnesium 1.2 L* Blood Type B Positive Antibody Screen NEGATIVE Crossmatch (AHG) See Detail Microbiology Microbiology Results: Microbiology 12/14/23 08:23 Blood Culture - Preliminary Blood - Venous No growth after 24 hours. 12/14/23 Unknown Urine Culture - Final Urine clean catch - Clean Catch Midstream 12/14/23 08:06 Blood Culture - Preliminary Blood - Venous No growth after 24 hours. Assessment and Plan (1) Acute lower GI bleeding: Status: Acute Plan 63F PMH metastatic small lung cancer on carboplatin/etoposide with atezolizumab, COPD, SIADH, HCV, hypertension, hyperlipidemia, GERD, IBS, rectal prolapse with history of lower GI bleed, chronic iron deficiency anemia, history of cocaine abuse presented with bright red blood per rectum Acute blood loss anemia due to lower GI bleed Transfused 1 unit and hemoglobin improved appropriately and has been stable CT abdomen showed 2 areas of subtle arterial blush in the rectosigmoid at the level of anastomosis in the hepatic flexure suspicious for lower GI bleed s/p flex sig c/w internal hemmerhoids - annusol, avoid strain Monitor hemoglobin Acute on chronic thrombocytopenia Transfused 1 unit of platelet prior to flex sig Monitor Asymptomatic bacteriuria Continue IV ceftriaxone, culture - mixed jaonn acute hypomagnesemia replace and monitor Metastatic small-cell lung cancer Oncology following Acute on chronic hyponatremia due to SIADH Fluid restrict, monitor, increased po salt tabs, nephro following Hypertension Continue metoprolol DVT prophylaxis-mechanical due to lower GI bleed Full code reason for continued hospitalization: hypomag, hypona Quality Stroke Does the patient have a stroke diagnosis?: No VTE Prior VTE?: No VTE Risk Level:: Medical - moderate - high VTE Device Contraindication: N/A - Device Ordered VTE Drug Contraindication: Treatment Not Indicated
--- NOTE | 2023-12-16 10:12 | MHC.CM.PN ---
Per ROUNDS discussion, Patent is not yet medically cleared for dc today r/t issues with her electrolytes; home is the goal and CM will continue to follow.
[2023-12-16] MEDS: Loperamide HCl 2 MG CAPSULE PO (10:27)
[2023-12-16] MEDS: Sucralfate 1 GM TABLET 4 GM PO (12:19)
[2023-12-16] MEDS: oxyCODONE HCl Immed Release 5 MG TABLET PO ×2 (12:23→17:42)
--- NOTE | 2023-12-16 12:51 | PC.NURSE ---
Pt. is alert and oriented x3. Tearful. On 2 L NC. Lung sounds with coarse crackles in middle lobe. Periods of nausea. Poor PO intake. OOB to bathroom with standby assist.
[2023-12-16] MEDS: hydrOXYzine HCL 50 MG TABLET PO (19:59)
[2023-12-16] MEDS: Mirtazapine 15 MG TABLET PO (19:59)
[2023-12-16] MEDS: cefTRIAXone sodium 1 GM in 0.9 % Sodium Chloride 50 ML IV (21:56)
[2023-12-17] MEDS: clonazePAM 0.5 MG TABLET PO (00:23)
[2023-12-17 03:24] VITALS: BP 111/63; PULSE 58; RESP 21; TEMP 36.1; O2SAT 96
[2023-12-17] MEDS: Omeprazole 20 MG CAPSULE.DR PO (06:17)
[2023-12-17] MEDS: Ondansetron ODT 8 MG TAB.RAPDIS TRANSLINGU (06:17)
[2023-12-17 06:55] LABS: Hematocrit 27.5 % (37.0-47.0); Hemoglobin 9.9 g/dl (12.0-16.0); Mean Corpuscular Hemoglobin 31.5 pg (27.0-33.0); Mean Corpuscular Volume 87.6 fL (80.0-98.0); Mean Platelet Volume 10.4 fL (9.4-12.3); Platelet Count 48 X10*3/uL (160-400); Red Blood Count 3.14 X10*6/uL (4.20-5.50); Red Cell Distribution Width 17.4 % (11.0-16.0); White Blood Count 2.9 X10*3/uL (4.8-10.8)
[2023-12-17 07:10] LABS: Anion Gap 13 (12-20); Blood Urea Nitrogen 9 mg/dL (9-16); Calcium 8.7 mg/dL (8.4-10.2); Carbon Dioxide 27 mmol/L (22-29); Chloride 89 mmol/L (96-108); Creatinine Clr Calc Pharmacy 72.4; Estimated Glomerular Filt Rate > 60; Glucose Fasting 96 mg/dL (60-99); Magnesium 1.8 mg/dL (1.6-2.6); Potassium 3.5 mmol/L (3.3-5.1); Sodium 125 mmol/L (135-145)
[2023-12-17] MEDS: Loperamide HCl 2 MG CAPSULE PO (07:31)
[2023-12-17] MEDS: Potassium Chloride ER 20 MEQ TAB.ER.PRT PO (07:32)
[2023-12-17] MEDS: Cholecalciferol (Vitamin D3) 25 MCG TABLET 50 MCG PO (07:32)
[2023-12-17] MEDS: Metoclopramide HCl 5 MG TABLET PO ×2 (07:32→11:51)
[2023-12-17] MEDS: Sodium Chloride Tab 1 GM TABLET PO ×2 (07:32→11:51)
[2023-12-17] MEDS: Nicotine 7 MG PATCH.TD24 TRANSDERMA (07:33)
[2023-12-17] MEDS: 0.9 % Sodium Chloride Flush 3 ML SYRINGE IVFLUSH (07:35)
[2023-12-17] MEDS: Tiotropium Bromide 2.5 mcg 1 PUFF/2.5 MCG MIST.INHAL 2 PUFF INHALE (07:38)
[2023-12-17 07:40] VITALS: PULSE 64; RESP 14; O2SAT 93
[2023-12-17 07:47] VITALS: BP 154/94; PULSE 77; RESP 20; TEMP 36.1; O2SAT 96
[2023-12-17] MEDS: Tolterodine Tartrate LA 4 MG CAP.ER.24H PO (07:56)
[2023-12-17] MEDS: Metoprolol Succinate ER 50 MG TAB.ER.24H PO (07:56)
--- NOTE | 2023-12-17 08:41 | PM.DS ---
DS: Providers Provider Date of Service: 12/17/23 Date of admission: 12/14/23 15:11 Date of discharge: 12/17/23 Primary care physician: Sarthak Person MD Consults: 12/14/23 14:08 Consult to Gastroenterology Routine Consulting Provider: Demar Farmer Reason for consultation: gi bleed 12/14/23 14:25 Consult to General Surgery Routine Consulting Provider: [facility] Reason for consultation: gi bleed 12/14/23 14:58 Consult to Hematology / Oncology Routine Consulting Provider: [facility] Oncology/Hematology Reason for consultation: small cell lung cancer, GI bleed 12/16/23 07:47 Consult to Nephrology Routine Consulting Provider: [facility] Reason for consultation: siadh, recurrent hyponatremia DS: Diagnosis Discharge Diagnosis (1) Acute lower GI bleeding: Status: Acute DS: Summary Hospital Course Hospital Course: from initial hpi: 63-year-old female with history of COPD, metastatic small-cell lung cancer on carboplatin/etoposide with atezolizumab last infusion 12/07 with last Neulasta on 12/[address] James, [place], history of hepatitis-C, history of IV cocaine abuse, hypertension, hyperlipidemia, GERD, IBS, rectal prolapse history of lower GI bleed, chronic iron-deficiency anemia who is a current everyday smoker smoking about 4-5 cigarettes on a daily basis presented to the ED for evaluation of BRBPR. She states she often has rectal bleeding from rectal prolapse following chemotherapy, but feels was bleeding more this morning compared to prior episodes with slight stream of blood from rectum this morning. Has not has any overt bleeding in about 6 hours. No abd pain, n/v/d, melena. No fevers, chills, dysuria, hematuria, increased urinary frequency. In the ED, pt hemodynamically stable. Leukocytosis 20.0, H/H10.1/29.0--> 8.6/24.9% (was also given 1.6L IVF prior to repeat labs, ?hemodilution), PLT 56. Renal function baseline, sodium 133, potassium 3.2. Magnesium 1.3, lytes otherwise normal. Stool occult blood positive. CT abdomen/pelvis shows 2 areas of subtle arterial blush seen in the rectosigmoid colon at the level of the anastomosis in the hepatic flexure suspicious for lower GI bleed is also mild diffuse bladder wall thickening possibly due to underdistention though subtle cystitis can not be excluded there is a hypodensity in the hepatic segment IV B that see the priors, likely consistent with an area of altered vascular perfusion or focal fatty infiltration among other nonacute findings. In the ED, received IV Zosyn, 1.6 L IVF given initial suspicion for sepsis, and transfused 1 unit packed red blood cells. Was referred for radiation but was not deemed a candidate. hospital course: Patient was admitted for acute blood loss anemia due to hemorrhoidal bleed. Was transfused 1 unit of PRBC and hemoglobin improved appropriately and remained stable. Recommendations were for Anusol and avoiding straining. For acute on chronic thrombocytopenia due to chemotherapy received 1 unit of platelets. For asymptomatic bacteriuria patient was periodically treated for urinary tract infection with IV ceftriaxone, culture grew mixed joann and will not continue antibiotics on discharge. For acute hypomagnesemia she received replacement and will continue on oral replacement at home. For acute on chronic hyponatremia due to SIADH was continued on salt tablets and fluid restriction, does not tolerate urea powder, sodium is still 125 at discharge, however, given patient's prognosis and priority for being at home we will continue treatment outpatient. For metastatic small-cell cancer will continue following with Oncology. For hypertension was continued on metoprolol. Patient is feeling better will be discharged home. Time Attestation Discharge Coordination Time (in mins): 33 Quality: Safe Use of Opioids Does Pt have an Active Cancer Diagnosis on the Problem List?: Yes Opioid Measure Date for [facility] Report: 11/17/23 Opioid Measure Time for [facility] Report: 08:41 Quality: Stroke Does the patient have a stroke diagnosis?: No Physical Exam Vital Signs: Vital Signs: Last Vital Signs Temp 96.9 F 12/17/23 07:47 Pulse 77 12/17/23 07:47 Resp 20 12/17/23 07:47 BP 154/94 H 12/17/23 07:47 Pulse Ox 96 12/17/23 07:47 O2 Del Method Nasal Cannula 12/17/23 07:47 O2 Flow Rate 2 12/17/23 07:47 Oxygen Flow Rate 2 12/14/23 06:47 BMI result Body Mass Index 21.8 Const: General: no acute distress Eyes: EOM: EOMs intact bilaterally Resp: Auscultation: diminished lung sounds Cardio: Rate: regular rate GI: Palpation (GI): Soft to palpation Neuro: General: moves all extremities DS: Data Data Completed and Pending Completed studies during hospitalization [Text1]: Procedures Excision of Right Main Bronchus, Via Natural or Artificial Opening Endoscopic, Diagnostic (08/24/23) Transfusion of Nonautologous Red Blood Cells into Peripheral Vein, Percutaneous Approach (09/29/23) Labs on day of discharge: Laboratory Results - last 24 hr 12/17/23 06:03 WBC 2.9 L RBC 3.14 L Hgb 9.9 L Hct 27.5 L MCV 87.6 MCH 31.5 MCHC 36.0 H RDW 17.4 H Plt Count 48 L MPV 10.4 Absolute Nucleated RBC 0.000 Nucleated RBC % (auto) 0.0 Sodium 125 L Potassium 3.5 Chloride 89 L Carbon Dioxide 27 Anion Gap 13 BUN 9 Creatinine 0.62 Estim Creat Clear Calc 72.4 Estimated GFR > 60 Fasting Glucose 96 Calcium 8.7 D Magnesium 1.8 Preliminary micro results at discharge 12/14/23 08:23 Blood Culture - Preliminary Blood - Venous No growth after 48 hours. 12/14/23 08:06 Blood Culture - Preliminary Blood - Venous No growth after 48 hours. Discharge Plan Discharge Anticipated Discharge Date/Time: 12/17/23 08:35 Patient Disposition: Home, Self-Care Discharge Diagnosis: hyponatremia, hemmerhoids Referrals: Sarthak Person MD [Primary Care Provider] - 1 Week Discharge Medications: New hydrocortisone [Proctozone-HC] 2.5 % Cream With Perineal Applicator [address] BID Qty: 30 0RF magnesium 250 mg tablet 250 mg PO BID Qty: 180 0RF Continued albuterol sulfate [Ventolin HFA] 90 mcg/actuation HFA aerosol inhaler 1 puff PO Q6H PRN (Reason: shortness of breath or wheezing) 30 Days Qty: 8.5 3RF hydroxyzine HCl 50 mg tablet 50 mg PO BEDTIME Qty: 90 1RF fluticasone propionate 50 mcg/actuation spray,suspension 1 spray intranasal DAILY 30 Days Qty: 16 2RF pantoprazole 40 mg tablet,delayed release (DR/EC) 40 mg PO DAILY@0630 90 Days Qty: 90 0RF metoprolol succinate 50 mg tablet extended release 24 hr 50 mg PO DAILY Qty: 90 1RF tiotropium bromide [Spiriva with HandiHaler] 18 mcg capsule, w/inhalation device 1 cap inhalation DAILY Qty: 30 5RF oxycodone 5 mg tablet 5 mg PO Q6H PRN (Reason: pain) Qty: 30 0RF alosetron 0.5 mg tablet 1 mg PO DAILY@0900 solifenacin 10 mg tablet 10 mg PO DAILY@0900 cholecalciferol (vitamin D3) 50 mcg (2,000 unit) capsule 50 mcg PO DAILY@0900 Rx Instructions: 1 capsule Orally Once a day sucralfate [Carafate] 1 gram tablet 4 g PO DAILY@1200 ondansetron 8 mg Tablet,Disintegrating 8 mg PO Q8H PRN (Reason: Nausea And Vomiting) Qty: 30 3RF nicotine (polacrilex) 4 mg Lozenge 4 mg BUCCAL Q8H PRN (Reason: Anxiety) Qty: 60 0RF diphenoxylate-atropine [Lomotil] 2.5-0.025 mg Tablet 1 tab PO DAILY PRN (Reason: Diarrhea) Qty: 30 0RF dexamethasone 4 mg tablet 4 mg PO WETH Rx Instructions: for chemo treatments clonazepam 0.5 mg Tablet 0.5 mg PO BID PRN (Reason: Anxiety) Qty: 60 0RF dextromethorphan-guaifenesin 10-100 mg/5 mL Syrup 10 ml PO TID PRN (Reason: cough) Qty: 237 0RF potassium chloride [K-Tab] 20 mEq Tablet Extended Release 20 meq PO DAILY Qty: 30 0RF Pulmicort Flexhaler 180 mcg/actuation aerosol powdr breath activated 2 inh INHALATION BID loperamide 2 mg Capsule 2 mg PO Q6H PRN (Reason: Diarrhea) Qty: 14 0RF metoclopramide HCl 5 mg tablet 5 mg PO TIDAC mirtazapine 15 mg Tablet 15 mg PO BEDTIME nicotine 14 mg/24 hr patch 24 hour 1 patch transdermal Q24H MDD smoking 28 Days Qty: 28 2RF sodium chloride 1,000 mg tablet,soluble 1,000 mg PO BID Discharge Orders: Discharge Order (Routine); Ordered 12/17/23 Ordered By: Yakov Robles Diet: Advance to usual diet Activity on Discharge: As tolerated Stand Alone Forms: Patient Portal Discharge page Print Language: Irish Care Plan Goals: recovery Health Concerns: small cell lung cancer, low sodium and magnesium, haemorrhoids Plan of Treatment: anusol, magnesium supplement, continue fluid restriction and salt tablets, follow up with oncology Assessment: see above
--- NOTE | 2023-12-17 08:59 | MHC.CM.PN ---
Patient has been medically cleared for dc to home today, self care. Last IMM addressed on 12/15/2023. CM spoke with Patient and per her request, Patient will return home via [facility] [employer] (she has her own portable O2 tank here with her)at 1:30PM.
--- NOTE | 2023-12-17 09:51 | PM.PNGS ---
Subjective Subjective Date of Service: 12/15/23 Interval history: Patient had no further episodes of bleeding. Tentatively scheduled for colonoscopy later today. No abdominal pain.. Status post blood transfusion. Physical Exam Vital Signs: Vital Signs: Last Vital Signs Temp 96.9 F 12/17/23 07:47 Pulse 77 12/17/23 07:47 Resp 20 12/17/23 07:47 BP 154/94 H 12/17/23 07:47 Pulse Ox 96 12/17/23 07:47 O2 Del Method Nasal Cannula 12/17/23 07:47 O2 Flow Rate 2 12/17/23 07:47 Oxygen Flow Rate 2 12/14/23 06:47 BMI result Body Mass Index 21.8 GI: Other: Abdomen is soft, benign Objective Data Active Medications Acetaminophen (Acetaminophen 325 Mg Tablet) 650 mg PO Q6H PRN PRN Reason: Pain, Mild (Pain Scale 1-3), fever or headache Last Admin: 12/16/23 08:04 Dose: 650 mg Documented By: JATINDER Albuterol Sulfate (Albuterol Sulfate 90 Mcg 8 Gm Inhaler) 1 puff INHALE Q6H PRN PRN Reason: shortness of breath or wheezing Budesonide (Budesonide 180 Mcg Aer.Pow.Ba) 2 puff INHALE RBID [facility] Last Admin: 12/16/23 19:47 Dose: 2 puff Documented By: TESS Calcium Carbonate (Calcium Carbonate 750 Mg Tab.Chew) 750 mg PO Q4H PRN PRN Reason: Heartburn Clonazepam (Clonazepam 0.5 Mg Tablet) 0.5 mg PO BID PRN PRN Reason: Anxiety Last Admin: 12/17/23 00:23 Dose: 0.5 mg Documented By: ANKRU Diphenoxylate HCl/Atropine (Diphenoxylate/Atrop 2.5/0.025 Tablet) 1 tab PO DAILY PRN PRN Reason: Diarrhea Fluticasone Propionate (Fluticasone Propionate Nasal 16 Gm [place]) 1 spray NOSTRIL-B DAILY [facility] Last Admin: 12/16/23 08:05 Dose: 1 spray Documented By: JATINDER Guaifenesin/Dextromethorphan (Guaifenesin Dm 100/10/5 Ml 5 Ml Syrup) 10 ml PO TID PRN PRN Reason: cough Hydrocortisone (Hydrocortisone 2.5 % Rectal Cr 30 Gm Tube) 1 appl MI BID [facility] Last Admin: 12/16/23 23:15 Dose: Not Given Documented By: ANKUR Non-Admin Reason: Med Not Available Hydroxyzine HCl (Hydroxyzine Hcl 50 Mg Tablet) 50 mg PO BEDTIME [facility] Last Admin: 12/16/23 19:59 Dose: 50 mg Documented By: ANKUR Ceftriaxone Sodium 1 gm/ (Sodium Chloride) 50 mls @ 100 mls/hr IV Q24H [facility] Last Infusion: 12/16/23 22:47 Dose: Infused Documented By: ANKUR Loperamide HCl (Loperamide Hcl 2 Mg Capsule) 2 mg PO Q6H PRN PRN Reason: Diarrhea Last Admin: 12/17/23 07:31 Dose: 2 mg Documented By: JOHN Magnesium Hydroxide (Milk Of Magnesia 30 Ml Oral.Susp) 30 ml PO DAILY PRN PRN Reason: Constipation Melatonin (Melatonin 3 Mg Tablet) 6 mg PO BEDTIME PRN PRN Reason: Insomnia Last Admin: 12/15/23 21:14 Dose: 6 mg Documented By: LISET Metoclopramide HCl (Metoclopramide Hcl 5 Mg Tablet) 5 mg PO TIDAC [facility] Last Admin: 12/17/23 07:32 Dose: 5 mg Documented By: JOHN Metoprolol Succinate (Metoprolol Succinate Er 50 Mg Tab.Er.24h) 50 mg PO DAILY [facility]; Protocol Last Admin: 12/17/23 07:56 Dose: 50 mg Documented By: JOHN Mirtazapine (Mirtazapine 15 Mg Tablet) 15 mg PO BEDTIME [facility] Last Admin: 12/16/23 19:59 Dose: 15 mg Documented By: ANKUR Naloxone HCl (Naloxone Hcl 0.4 Mg/Ml Vial) 0.04 mg IVPUSH Q5M PRN PRN Reason: Excessive sedation or RR < 8 Nicotine (Nicotine 7 Mg Patch.Td24) 7 mg TRANSDERMA DAILY [facility] Last Admin: 12/17/23 07:33 Dose: 7 mg Documented By: JOHN Nicotine Polacrilex (Nicotine Polacrilex Lozenge 4 Mg Lozenge) 4 mg BUCCAL Q8H PRN PRN Reason: Anxiety Omeprazole (Omeprazole 20 Mg Capsule.Dr) 20 mg PO DAILY@0630 [facility] Last Admin: 12/17/23 06:17 Dose: 20 mg Documented By: ANKUR Ondansetron HCl (Ondansetron Odt 8 Mg Tab.Rapdis) 8 mg TRANSLINGU Q8H PRN PRN Reason: Nausea And Vomiting Last Admin: 12/17/23 06:17 Dose: 8 mg Documented By: ANKUR Oxycodone HCl (Oxycodone Hcl Immed Release 5 Mg Tablet) 5 mg PO Q6H PRN PRN Reason: Pain, Severe (Pain Scale 7-10) Last Admin: 12/16/23 17:42 Dose: 5 mg Documented By: REECE Potassium Chloride (Potassium Chloride Er 20 Meq Tab.Er.Prt) 20 meq PO DAILY [facility] Last Admin: 12/17/23 07:32 Dose: 20 meq Documented By: JOHN Sodium Biphosphate/Sodium Phosphate (Sodium Phosphate,Pleasants-Dibasic 133 Ml Enema) 133 ml MI ONCE PRN PRN Reason: Hard stool after midnight Sodium Chloride (0.9 % Sodium Chloride Flush 3 Ml Syringe) 3 ml IVFLUSH QSHIFT [facility] Last Admin: 12/17/23 07:35 Dose: 3 ml Documented By: JOHN Sodium Chloride (Sodium Chloride Tab 1 Gm Tablet) 1 gm PO QID [facility] Last Admin: 12/17/23 07:32 Dose: 1 gm Documented By: JOHN Sucralfate (Sucralfate 1 Gm Tablet) 4 gm PO DAILY@1200 [facility] Last Admin: 12/16/23 12:19 Dose: 2 gm Documented By: REECE Comments: pt refused 2 stating she only takes 2 at a time Tiotropium [place] (Tiotropium [place] 2.5 Mcg 1 Puff/2.5 Mcg Mist.Inhal) 2 puff INHALE RDAILY [facility] Last Admin: 12/17/23 07:38 Dose: 2 puff Documented By: MARLA Tolterodine Tartrate (Tolterodine Tartrate [place] 4 Mg Cap.Er.24h) 4 mg PO DAILY@0900 [facility] Last Admin: 12/17/23 07:56 Dose: 4 mg Documented By: JOHN Vitamin D (Cholecalciferol (Vitamin D3) 25 Mcg Tablet) 50 mcg PO DAILY@0900 [facility] Last Admin: 12/17/23 07:32 Dose: 50 mcg Documented By: JOHN Labs 12/17/23 06:03 12/17/23 06:03 Labs: Laboratory Results - last 24 hr 12/17/23 06:03 MCV 87.6 MCH 31.5 MCHC 36.0 H RDW 17.4 H Plt Count 48 L MPV 10.4 Absolute Nucleated RBC 0.000 Nucleated RBC % (auto) 0.0 Anion Gap 13 Estim Creat Clear Calc 72.4 Estimated GFR > 60 Fasting Glucose 96 Calcium 8.7 D Magnesium 1.8 Microbiology Microbiology Results: Microbiology 12/14/23 08:23 Blood Culture - Preliminary Blood - Venous No growth after 48 hours. 12/14/23 08:06 Blood Culture - Preliminary Blood - Venous No growth after 48 hours. Procedures Date of Service Date of Service: 12/17/23 Progress Note: A&P Assessment and plan (1) Acute lower GI bleeding: Status: Acute (2) Small cell lung cancer: Status: Acute Plan For endoscopy/colonoscopy today. Further interventions studies will be directed by the patient's clinical course and colonoscopic findings. Time Spent With Patient Time: Total time managing care of this patient today ____ minutes. Quality Stroke Does the patient have a stroke diagnosis?: No VTE Prior VTE?: No VTE Risk Level:: Medical - moderate - high VTE Device Contraindication: N/A - Device Ordered VTE Drug Contraindication: Treatment Not Indicated
--- NOTE | 2023-12-17 11:27 | P.PNHO-ONC_ITS ---
Medical Summary - Medical Summary Date of Service: 12/17/23 Chief complaint: Fatigue Primary Care Provider: Sarthak Person MD Medical Summary: Diagnosis: Small-cell lung cancer Chronic smoker with history of COPD who presented with worsening shortness of breath with right-sided chest pain and nausea on 08/24/2023. Unfortunately, CT chest revealed right upper lobe collapse with possible postobstructive pneumonia. She is followed by Dr. Padilla and was on lung cancer screening program, a low-dose CT in June [address] chest with contrast revealed a right suprahilar mass measuring 5.8 x 4.1 cm encasing and occluding right upper lobe bronchus with complete collapse of right upper lobe. This is a small stable left upper lobe 1 cm pulmonary nodule, enlarged mediastinal lymph nodes with 1.4 x 2.7 x 2.4 cm pretracheal lymph node. No pleural effusion or axillary adenopathy. Adrenals normal, no evidence of osseous metastatic disease. She had a CT head without contrast which was negative for metastasis. Clinical stage T3 N2, Stage IIIB LDH mildly elevated at 274, CEA 12.1 NG/ mL. She presented with severe hyponatremia with sodium of 116 millimole per L secondary to SIADH/lung cancer. She is on water restriction and has been started on sodium tablets. PET scan performed at [facility] on 09/11/2023 showed FDG avid right hilar/suprahilar mass with SUV 12.6, FDG avid mediastinal and right hilar lymphadenopathy. Left supraclavicular lymph node SUV max 4.2, right supraclavicular lymph node SUV max 2, right paratracheal SUV max 9.4, anterior mediastinal SUV max 4.8. Nonspecific focal activity in anal canal SUV 15.3. Brain MRI performed 09/10/2023 showed no evidence of intracranial metastatic disease. She received 1st cycle of cisplatin/etoposide on 09/23/2023. She was admitted a week later with hyponatremia and severe pancytopenia. She was also treated for a UTI. She received Granix and blood transfusion. She was seen by radiation oncologist at [facility]. After reviewing her case in tumor board and finding of PET positive supraclavicular lymph node, decision was made to switch her to chemotherapy for extensive stage small cell lung cancer. She was started on carboplatin/etoposide with atezolizumab on 11/11/2023. Interval History Interval history: Sarah Medina is a 63 year old female well known to Oncology Service for history of extensive stage small cell lung cancer. She has been on chemo immunotherapy for a couple of months. She has had chronic rectal bleeding secondary to prolapse. She said after last round of chemotherapy she developed worsening bleeding, it was almost a constant stream and therefore she came to the emergency department. She denies abdominal pain, nausea or emesis. No fever or chills. She says she saw her rectal surgeon in [place] who did not want to do any intervention at this time as she is receiving chemotherapy for lung cancer. She was also seen by GI at [facility] in the past. She underwent colonoscopy and was diagnosed with internal hemorrhoids. No active bleeding was found. She was waiting to get discharged. She wants to know if her treatment has had any effect on her cancer. She is unable to tolerate treatment because of side effects. Review of Systems - Constitutional Reports as per HPI, Denies fever(s), Denies lack of energy, Denies malaise - Cardiovascular Reports no additional cardiovascular complaints - Respiratory Reports no additional respiratory complaints [facility] Medical History: Medical History (Last Reviewed 12/15/23 @ 01:58 by Sienna Stewart RN) Abnormal CT scan, chest Allergic rhinitis Anxiety Benign essential hypertension Bronchitis Cervical spondylosis COPD (chronic obstructive pulmonary disease) Early satiety Endocarditis of mitral valve Onset Date: ~11/2017 Facet arthritis of lumbar region GERD (gastroesophageal reflux disease) History of hepatitis C IV drug user Lung mass Mass of right lung MDD (major depressive disorder), recurrent episode, moderate Mitral regurgitation Mitral valve prolapse Nicotine dependence, cigarettes, uncomplicated Nonrheumatic mitral (valve) insufficiency Osteopenia Onset Date: ~2011 Paresthesia of left leg Pulmonary nodule Pure hypercholesterolemia Rectal prolapse Small cell lung cancer Onset Date: ~08/2023 Small cell lung cancer Vitamin D deficiency Family History: Family History (Last Reviewed 12/14/23 @ 14:56 by YEVGENIY Fernandez) Father Internal bleeding Mother Medical history unknown Surgical History: Surgical History (Last Reviewed 12/15/23 @ 01:58 by Sienna Stewart RN) History of bronchoscopy Onset Date: ~2023 History of colonoscopy Onset Date: ~2017 History of hysteroscopy Onset Date: ~2010 History of liver biopsy Onset Date: ~2009 History of partial colectomy Onset Date: ~2014 Social History: Social History (Last Reviewed 12/14/23 @ 14:56 by YEVGENIY Fernandez) Living Situation History: Household Members: Children Housing: House Housing Other:: lives alone with her cat Malena Do you presently have visiting nurse or other home services: Yes Do you presently have visiting nurse or other home services comment: 2 daughters assist with bringing meals Tobacco History: Patient Tobacco Use Status: Current everyday Tobacco Tobacco use type: Cigarette Cigarette Packs Per Day: 0.5 Years Smoked: 45 years (onset 15, 1/2-3/4ppd x 44yrs, 28pyh) e-Cigarette/Vaping Use: Never Used Second Hand Smoke Exposure: No Substance Use History: Substance Use Type: Marijuana Advance Directives: Advance Directives Date on File: 09/23/23 Occupation Assessmet: service: No Current occupational status: unemployed Sex/Gender Assessment: Sexual orientation: Straight/Heterosexual Gender identity: Female Home Medications and Allergies Current Medications: Current Medications Acetaminophen (Acetaminophen 325 Mg Tablet) 650 mg PO Q6H PRN PRN Reason: Pain, Mild (Pain Scale 1-3), fever or headache Last Admin: 12/16/23 08:04 Dose: 650 mg Albuterol Sulfate (Albuterol Sulfate 90 Mcg 8 Gm Inhaler) 1 puff INHALE Q6H PRN PRN Reason: shortness of breath or wheezing Budesonide (Budesonide 180 Mcg Aer.Pow.Ba) 2 puff INHALE RBID MANUEL Last Admin: 12/17/23 11:15 Dose: Not Given Calcium Carbonate (Calcium Carbonate 750 Mg Tab.Chew) 750 mg PO Q4H PRN PRN Reason: Heartburn Clonazepam (Clonazepam 0.5 Mg Tablet) 0.5 mg PO BID PRN PRN Reason: Anxiety Last Admin: 12/17/23 00:23 Dose: 0.5 mg Diphenoxylate HCl/Atropine (Diphenoxylate/Atrop 2.5/0.025 Tablet) 1 tab PO DAILY PRN PRN Reason: Diarrhea Fluticasone Propionate (Fluticasone Propionate Nasal 16 Gm Ovando) 1 spray NOSTRIL-B DAILY [facility] Last Admin: 12/16/23 08:05 Dose: 1 spray Guaifenesin/Dextromethorphan (Guaifenesin Dm 100/10/5 Ml 5 Ml Syrup) 10 ml PO TID PRN PRN Reason: cough Hydrocortisone (Hydrocortisone 2.5 % Rectal Cr 30 Gm Tube) 1 appl AR BID [facility] Last Admin: 12/16/23 23:15 Dose: Not Given Hydroxyzine HCl (Hydroxyzine Hcl 50 Mg Tablet) 50 mg PO BEDTIME [facility] Last Admin: 12/16/23 19:59 Dose: 50 mg Ceftriaxone Sodium 1 gm/ (Sodium Chloride) 50 mls @ 100 mls/hr IV Q24H [facility] Last Infusion: 12/16/23 22:47 Dose: Infused Loperamide HCl (Loperamide Hcl 2 Mg Capsule) 2 mg PO Q6H PRN PRN Reason: Diarrhea Last Admin: 12/17/23 07:31 Dose: 2 mg Magnesium Hydroxide (Milk Of Magnesia 30 Ml Oral.Susp) 30 ml PO DAILY PRN PRN Reason: Constipation Melatonin (Melatonin 3 Mg Tablet) 6 mg PO BEDTIME PRN PRN Reason: Insomnia Last Admin: 12/15/23 21:14 Dose: 6 mg Metoclopramide HCl (Metoclopramide Hcl 5 Mg Tablet) 5 mg PO TIDAC [facility] Last Admin: 12/17/23 07:32 Dose: 5 mg Metoprolol Succinate (Metoprolol Succinate Er 50 Mg Tab.Er.24h) 50 mg PO DAILY [facility]; Protocol Last Admin: 12/17/23 07:56 Dose: 50 mg Mirtazapine (Mirtazapine 15 Mg Tablet) 15 mg PO BEDTIME [facility] Last Admin: 12/16/23 19:59 Dose: 15 mg Naloxone HCl (Naloxone Hcl 0.4 Mg/Ml Vial) 0.04 mg IVPUSH Q5M PRN PRN Reason: Excessive sedation or RR < 8 Nicotine (Nicotine 7 Mg Patch.Td24) 7 mg TRANSDERMA DAILY [facility] Last Admin: 12/17/23 07:33 Dose: 7 mg Nicotine Polacrilex (Nicotine Polacrilex Lozenge 4 Mg Lozenge) 4 mg BUCCAL Q8H PRN PRN Reason: Anxiety Omeprazole (Omeprazole 20 Mg Capsule.Dr) 20 mg PO DAILY@0630 [facility] Last Admin: 12/17/23 06:17 Dose: 20 mg Ondansetron HCl (Ondansetron Odt 8 Mg Tab.Rapdis) 8 mg TRANSLINGU Q8H PRN PRN Reason: Nausea And Vomiting Last Admin: 12/17/23 06:17 Dose: 8 mg Oxycodone HCl (Oxycodone Hcl Immed Release 5 Mg Tablet) 5 mg PO Q6H PRN PRN Reason: Pain, Severe (Pain Scale 7-10) Last Admin: 12/16/23 17:42 Dose: 5 mg Potassium Chloride (Potassium Chloride Er 20 Meq Tab.Er.Prt) 20 meq PO DAILY [facility] Last Admin: 12/17/23 07:32 Dose: 20 meq Sodium Biphosphate/Sodium Phosphate (Sodium Phosphate,[place]-Dibasic 133 Ml Enema) 133 ml AR ONCE PRN PRN Reason: Hard stool after midnight Sodium Chloride (0.9 % Sodium Chloride Flush 3 Ml Syringe) 3 ml IVFLUSH QSHIFT [facility] Last Admin: 12/17/23 07:35 Dose: 3 ml Sodium Chloride (Sodium Chloride Tab 1 Gm Tablet) 1 gm PO QID [facility] Last Admin: 12/17/23 07:32 Dose: 1 gm Sucralfate (Sucralfate 1 Gm Tablet) 4 gm PO DAILY@1200 [facility] Last Admin: 12/16/23 12:19 Dose: 2 gm Tiotropium [place] (Tiotropium [place] 2.5 Mcg 1 Puff/2.5 Mcg Mist.Inhal) 2 puff INHALE RDAILY [facility] Last Admin: 12/17/23 07:38 Dose: 2 puff Tolterodine Tartrate (Tolterodine Tartrate La 4 Mg Cap.Er.24h) 4 mg PO DAILY@09 [facility] Last Admin: 12/17/23 07:56 Dose: 4 mg Vitamin D (Cholecalciferol (Vitamin D3) 25 Mcg Tablet) 50 mcg PO DAILY@09 [facility] Last Admin: 12/17/23 07:32 Dose: 50 mcg Home Medications ?Medication ?Instructions ?Recorded ?Confirmed ?Type alosetron 0.5 mg tablet 1 mg PO DAILY@89907/22/23 12/14/23 History cholecalciferol (vitamin D3) 50 50 mcg PO DAILY@89907/22/23 12/14/23 History mcg (2,000 unit) capsule solifenacin 10 mg tablet 10 mg PO DAILY@89907/22/23 12/14/23 History sucralfate 1 gram tablet (Carafate) 4 g PO DAILY@1200 07/25/23 12/14/23 History budesonide 180 mcg/actuation 2 inh inhalation BID 09/28/23 12/14/23 History breath activated powder inhaler (Pulmicort Flexhaler) dexamethasone 4 mg tablet 4 mg PO WETH 10/21/23 12/14/23 History metoclopramide HCl 5 mg tablet 5 mg PO TIDAC 12/14/23 12/14/23 History mirtazapine 15 mg tablet 15 mg PO BEDTIME 12/14/23 12/14/23 History Allergies Allergy/AdvReac Type Severity Reaction Status Date / Time No Known Allergies Allergy Unknown unknown Verified 12/14/23 06:50 [NO KNOWN ALLERGIES] Exam Vital signs: Vital Signs Temp 96.9 F 12/17/23 07:47 Pulse 77 12/17/23 07:47 Resp 20 12/17/23 07:47 BP 154/94 H 12/17/23 07:47 Pulse Ox 96 12/17/23 07:47 O2 Del Method Nasal Cannula 12/17/23 07:47 O2 Flow Rate 2 12/17/23 07:47 Intake & Output 12/16/23 12/17/23 12/17/23 18:59 06:59 18:59 Intake Total 270 / 370 100 / 370 Output Total 600 / 600 Balance -330 / -230 100 / -230 Urine Output (Average ml/kg/hr) 0.93 0.93 0.93 Intake: Intake, Oral Amount 220 / 220 Intake, IV Amount 50 / 150 100 / 150 Magnesium Sulfate/H2O 2 gm In 50 / 100 50 / 100 50 ml @ 25 mls/hr IV Q8H MANUEL Rx #:[id number] cefTRIAXone sodium 1 gm In 0.9 50 / 50 % Sodium Chloride 50 ml @ 100 mls/hr IV Q24H [facility] Rx#: [id number] Output: Output, Urine Amount 600 / 600 Other: Breakfast % Eaten 0% Lunch % Eaten 100% Number of Unmeasured Voids 1 Number of Bowel Movements 5 Urine Bathroom Bathroom Urine Color Yellow Yellow Last Bowel Movement 12/16/23 12/16/23 12/16/23 Stool Bathroom Stool Amount Small Stool Color Brown Stool Consistency Soft Weight 53.977 kg BMI result Body Mass Index 21.8 - Constitutional Present: no acute distress, chronically ill appearing - Routine HEENT Exam Head: Present: normal inspection - Routine Respiratory Exam Present: decreased breath sounds. Absent: accessory muscle use - Routine Cardiovascular Exam Cardiovascular: Present: S1, S2 - Routine Abdominal Exam Present: soft - Routine Skin Exam Present: intact Data - Labs CBC & Chem 7: 12/17/23 06:03 12/17/23 06:03 Labs: Laboratory Last Values WBC 2.9 X10*3/uL (4.8-10.8) L 12/17/23 06:03 RBC 3.14 X10*6/uL (4.20-5.50) L 12/17/23 06:03 Hgb 9.9 g/dl (12.0-16.0) L 12/17/23 06:03 Hct 27.5 % (37.0-47.0) L 12/17/23 06:03 MCV 87.6 fL (80.0-98.0) 12/17/23 06:03 MCH 31.5 pg (27.0-33.0) 12/17/23 06:03 MCHC 36.0 g/dl (31.0-35.0) H 12/17/23 06:03 RDW 17.4 % (11.0-16.0) H 12/17/23 06:03 Plt Count 48 X10*3/uL (160-400) L 12/17/23 06:03 MPV 10.4 fL (9.4-12.3) 12/17/23 06:03 Immature Gran % (Auto) Cancelled 12/15/23 06:04 Neut % (Auto) Cancelled 12/15/23 06:04 Lymph % (Auto) Cancelled 12/15/23 06:04 [place] % (Auto) Cancelled 12/15/23 06:04 Eos % (Auto) Cancelled 12/15/23 06:04 Baso % (Auto) Cancelled 12/15/23 06:04 Lymph # (Auto) Cancelled 12/15/23 06:04 [place] # (Auto) Cancelled 12/15/23 06:04 Eos # (Auto) Cancelled 12/15/23 06:04 Baso # (Auto) Cancelled 12/15/23 06:04 Abs Immat Gran (auto) Cancelled 12/15/23 06:04 Absolute Neuts (auto) Cancelled 12/15/23 06:04 Absolute Nucleated RBC 0.000 X10*3/uL (0.0-0.012) 12/17/23 06:03 Nucleated RBC % (auto) 0.0 /100WBC (0.0-0.2) 12/17/23 06:03 Neutrophils % (Manual) 79 % (45-73) H 12/15/23 06:04 Band Neutrophils % 6 % (3-5) H 12/15/23 06:04 Lymphocytes % (Manual) 9 % (20-40) L 12/15/23 06:04 Monocytes % (Manual) 5 % (2-11) 12/15/23 06:04 Eosinophils % (Manual) 1 % (0-4) 12/15/23 06:04 Myelocytes % 1 % 12/14/23 06:55 Abs Neuts (Manual) 5.8 X10*3/uL (2.0-8.3) 12/15/23 06:04 Lymphocytes # (Manual) 0.6 X10*3/uL (1.2-4.9) L 12/15/23 06:04 Monocytes # (Manual) 0.3 X10*3/uL (0.1-1.2) 12/15/23 06:04 Eosinophils # (Manual) 0.1 X10*3/uL (0.0-0.4) 12/15/23 06:04 Myelocytes # 0.3 X10*/uL 12/14/23 06:55 Toxic Vacuolation PRESENT 12/15/23 06:04 Dohle Bodies PRESENT 12/15/23 06:04 Platelet Estimate DECREASED (NORMAL) 12/15/23 06:04 Plt Morphology Comment NORMAL 12/15/23 06:04 RBC Morphology NOTED 12/15/23 06:04 Microcytosis 1+ (5-14) /OIF 12/14/23 12:34 Tear Drop Cells 1+ (0-2) /OIF 12/14/23 12:34 Ovalocytes 1+ (5-14) /OIF 12/15/23 06:04 Acanthocytes (Spur) 1+ (0-2) /OIF 12/15/23 06:04 Schistocytes 1+ (0-2) /OIF 12/15/23 06:04 PT 13.2 SEC (11.1-13.3) 12/14/23 06:55 INR 1.1 (0.9-1.1) 12/14/23 06:55 Sodium 125 mmol/L (135-145) L 12/17/23 06:03 Potassium 3.5 mmol/L (3.3-5.1) 12/17/23 06:03 Chloride 89 mmol/L (96-108) L 12/17/23 06:03 Carbon Dioxide 27 mmol/L (22-29) 12/17/23 06:03 Anion Gap 13 (12-20) 12/17/23 06:03 BUN 9 mg/dL (9-16) 12/17/23 06:03 Creatinine 0.62 mg/dL (0.5-1.4) 12/17/23 06:03 Estim Creat Clear Calc 72.4 12/17/23 06:03 Estimated GFR > 60 12/17/23 06:03 Random Glucose 99 mg/dL (60-115) 12/15/23 06:04 Fasting Glucose 96 mg/dL (60-99) 12/17/23 06:03 Lactic Acid 1.2 mmol/L (0.5-2.0) 12/14/23 08:06 Calcium 8.7 mg/dL (8.4-10.2) D 12/17/23 06:03 Magnesium 1.8 mg/dL (1.6-2.6) 12/17/23 06:03 Total Bilirubin 0.9 mg/dL (0.0-1.0) 12/14/23 06:55 AST 12 U/L (5-31) 12/14/23 06:55 ALT < 5 U/L (0-31) 12/14/23 06:55 Alkaline Phosphatase 105 U/L (39-117) 12/14/23 06:55 B-Natriuretic Peptide 85 pg/mL (<100) 12/14/23 06:55 Total Protein 6.2 g/dL (6.5-8.0) L 12/14/23 06:55 Albumin 4.0 g/dL (3.5-5.0) 12/14/23 06:55 Urine Color Yellow 12/14/23 11:01 Urine Appearance Clear 12/14/23 11:01 Urine pH 7.5 (5.0-9.0) 12/14/23 11:01 Ur Specific [place] >= 1.030 (1.005-1.025) H 12/14/23 11:01 Urine Protein Negative mg/dL (Neg-Trace) 12/14/23 11:01 Urine Glucose (UA) Negative mg/dL (Negative) 12/14/23 11:01 Urine Ketones Negative mg/dL (Negative) 12/14/23 11:01 Urine Blood Trace (Negative) H 12/14/23 11:01 Urine Nitrite Positive (Negative) H 12/14/23 11:01 Ur Leukocyte Esterase Moderate (2+) (Negative) H 12/14/23 11:01 Urine RBC 0-2 /HPF (0-2) 12/14/23 11:01 Urine WBC >50 /HPF (0-5) H 12/14/23 11:01 Ur Squamous Epith Cells 0-2 /HPF (0-2) 12/14/23 11:01 Urine Bacteria Trace (None Seen) 12/14/23 11:01 Hyaline Casts 0-2 /LPF (0-2) 12/14/23 11:01 Stool Occult Blood POSITIVE (NEGATIVE) 12/14/23 07:03 Blood Type B Positive 12/14/23 06:59 Antibody Screen NEGATIVE 12/14/23 06:59 Crossmatch (AHG) See Detail 12/14/23 06:59 - Imaging Radiologist's impression: ITS Impressions Abdomen/Pelvis CT 12/14/23 10:15 IMPRESSION: 1. There are 2 areas of subtle arterial blush seen in the rectosigmoid colon at the level of the anastomosis and in the hepatic flexure, suspicious for lower GI bleed. 2. Mild diffuse bladder wall thickening, possibly due to underdistention, though subtle cystitis cannot be entirely excluded. 3. Subtle hypodensity in hepatic segment IVb, not seen on recent prior exam, most consistent with an area of altered vascular perfusion or focal fatty infiltration. 4. Other nonacute findings include cholelithiasis, bilateral tiny renal cysts, which warrant no additional imaging follow-up, sagittal medullary sponge kidney versus tiny calculi at the corticomedullary junction, osteopenia with severe biconcave compression deformity of the L5 vertebral body, tiny fat-containing umbilical and bilateral direct inguinal hernias, and moderate to severe atherosclerotic vascular disease. This critical result was discussed with Nataliya Bower M.D. 12/14/2023, 1:01 PM and it was ascertained that the content and urgency of this report was understood at the time of direct communication. Electronically signed by: Ronda June MD 12/14/2023 01:04 PM EDT RP Assessment and Plan Patient Active problem list reviewed?: Yes (1) Small cell lung cancer Problem details: As noted above her recent bronchoscopic exam and bronchial biopsy are positive small cell carcinoma. Status: Acute Assessment and plan: 1. This is a 63-year-old woman diagnosed with extensive stage small cell lung cancer involving right hilum in August 2023. She is on treatment with carboplatin/etoposide with atezolizumab since 11/11/2023. Her last treatment was last week, she received Neulasta after treatment which explains her leukocytosis. Her ongoing GI bleeding seems to be from recurrent rectal prolapse. She also has had intermittent moderately severe thrombocytopenia which could have made this worse. CT abdomen pelvis/bleeding scan showed 2 subtle areas of arterial blush in the rectosigmoid colon and the hepatic flexure suspicious for lower GI bleed. She received a unit of blood transfusion. She underwent flexible sigmoidoscopy 12/15/23. She was found to have internal hemorrhoids. 2. SIADH causing hyponatremia. She should be on sodium chloride 1000 mg b.i.d.. 3. Pancytopenia secondary to recent chemotherapy. I discussed performing PET-CT upon discharge to assess response to treatment thus far. If she has had a good response, chemotherapy i.e. carboplatinum/etoposide will be stopped and she will be maintained on atezolizumab. I have asked her to keep her appointment next week in oncology clinic. - Time Spent With Patient Time Spent with Patient (in minutes): 15 Additional Coding: - Additional E/M codes Complex E/M visit Add On: CPT G2211
[2023-12-17 11:44] VITALS: BP 163/89; PULSE 70; RESP 18; TEMP 36.4; O2SAT 97
[2023-12-17] MEDS: Sucralfate 1 GM TABLET 4 GM PO (11:50)
--- NOTE | 2023-12-17 12:11 | MHC.CM.PN ---
Per Patient, her Daughter's Boyfriend will transport to home; [facility] has been canceled.
== END 2023-12-17 13:03 | disposition home or self-care (01) | DRG 393 ==
LOC: HO.ED 14:21 → HO.EDOVER 15:16 → HO.IMC 12-15 00:16
PROVIDERS: Internal Medicine Gastroenterology; Physician Assistant; Admitting Provider Physician Assistant; Emergency Provider Emergency Medicine Emergency Medical Services; PCP Internal Medicine; Visit Provider Internal Medicine
PROC: 0DJD8ZZ Inspection of Lower Intestinal Tract, Via Natural or Artificial Opening Endoscopic (ICD-10-PCS; CPT 45330; principal; 2023-12-15 13:40)
DX: K64.8 Other hemorrhoids (principal); D61.810 Antineoplastic chemotherapy induced pancytopenia; K57.31 Diverticulosis of large intestine without perforation or abscess with bleeding; C34.01 Malignant neoplasm of right main bronchus; D62 Acute posthemorrhagic anemia; E22.2 Syndrome of inappropriate secretion of antidiuretic hormone; C77.0 Secondary and unspecified malignant neoplasm of lymph nodes of head, face and neck; J44.9 Chronic obstructive pulmonary disease, unspecified; T45.1X5A Adverse effect of antineoplastic and immunosuppressive drugs, initial encounter; E83.42 Hypomagnesemia; I10 Essential (primary) hypertension; K21.9 Gastro-esophageal reflux disease without esophagitis; K62.3 Rectal prolapse; F17.210 Nicotine dependence, cigarettes, uncomplicated; Z71.6 Tobacco abuse counseling; Z79.51 Long term (current) use of inhaled steroids; Z79.899 Other long term (current) drug therapy
CPT/HCPCS: 36415; 74178; 80048; 80053; 81001; 82272; 83605; 83735; 83880; 85007; 85014; 85018; 85027; 85049; 85610; 86850; 86900; 86901; 86920; 86922; 87040; 87086; 93005; 94640; 99285; J0696; J2270; J2543; J2704; J3475; P9016; P9073; Q9967

== ENCOUNTER → 2023-12-14 07:15 | Outpatient (BNV) | payer OTHER, SELFPAY | PROVIDERS: Emergency Provider Emergency Medicine Emergency Medical Services; PCP Internal Medicine; Visit Provider Surgery | DX: K92.2 Gastrointestinal hemorrhage, unspecified (principal); C34.90 Malignant neoplasm of unspecified part of unspecified bronchus or lung | CPT/HCPCS: 99232; 99285 ==

== ENCOUNTER → 2023-12-14 15:11 | Outpatient (BNV) | payer OTHER, SELFPAY | PROVIDERS: Admitting Provider Physician Assistant; Emergency Provider Emergency Medicine Emergency Medical Services; PCP Internal Medicine; Visit Provider Internal Medicine Nephrology | DX: E87.1 Hypo-osmolality and hyponatremia (principal) | CPT/HCPCS: 99223 ==

== ENCOUNTER → 2023-12-14 15:11 | Outpatient (BNV) | payer OTHER, SELFPAY | PROVIDERS: Admitting Provider Physician Assistant; Emergency Provider Emergency Medicine Emergency Medical Services; PCP Internal Medicine; Visit Provider Internal Medicine | DX: C34.90 Malignant neoplasm of unspecified part of unspecified bronchus or lung (principal) | CPT/HCPCS: 99222; 99232 ==

== ENCOUNTER → 2023-12-14 15:11 | Outpatient (BNV) | payer OTHER, SELFPAY | PROVIDERS: Admitting Provider Physician Assistant; Emergency Provider Emergency Medicine Emergency Medical Services; PCP Internal Medicine; Visit Provider Physician Assistant | DX: K92.2 Gastrointestinal hemorrhage, unspecified (principal) | CPT/HCPCS: 99223; 99233; 99239 ==

== ENCOUNTER → 2023-12-14 15:11 | Outpatient (BNV) | payer OTHER, SELFPAY | PROVIDERS: Admitting Provider Physician Assistant; Emergency Provider Emergency Medicine Emergency Medical Services; PCP Internal Medicine; Visit Provider Internal Medicine Gastroenterology | DX: K92.2 Gastrointestinal hemorrhage, unspecified (principal); C34.90 Malignant neoplasm of unspecified part of unspecified bronchus or lung; J44.9 Chronic obstructive pulmonary disease, unspecified | CPT/HCPCS: 45330; 99222 ==

== ENCOUNTER 2023-12-22 14:20 | Outpatient (AMB) | payer OTHER, SELFPAY ==
--- NOTE | 2023-12-22 14:46 | A.OFFPC_ITS ---
Vital Signs 12/22/23 14:48 Height 5 ft 2 in Weight 118 lb 2 oz BMI 21.6 BP 122/74 Blood Pressure Location Lt brachial Position Sitting Pulse 62 Pulse Source Pulse Oximeter Pulse Oximetry (%) 99 Oxygen Delivery Method Nasal Cannula Intake Visit Reasons: [place] [facility] [place]: Patient is here for hospital discharge follow up and TCM. [place] was [place] [facility]. Cultural Anthropology Professor Required: No Chartered Wealth Manager: Not Required per policy Accompanied by: Self / Same As Patient Allergies No Known Allergies [NO KNOWN ALLERGIES] Allergy (Unknown, Verified 12/22/23 14:47) unknown Tobacco use date assessed: 12/22/23 Fall risk assessment: No Falls in past year Last assessed Fall Risk: 12/22/23 Dental Screening Dental Screen Date: 08/06/23 HPI TCM [place] [facility] [place] Details 63-year-old female with past medical his tory of anxiety, osteopenia, IBS, GERD, overactive bladder, impaired glucose tolerance, hypercholesterolemia, hypertension, nicotine dependence, COPD, small cell lung cancer last seen by Dr. Person coming in for hospital follow up.? In review of the notes, patient was seen in [facility] [place] abdomen/pelvis shows evidence of acute GI bleed patient received IV Zosyn and fluids as well as 1 unit packed red blood cells and was admitted for blood loss anemia due to hemorrhoid bleed.? Patient was monitored throughout the hospital stay in consult by GI sound to be stable and discharged home to follow up with Oncology. Patient states she did have bright red rectal bleeding this morning and spoke with her oncologist who recommended coming in for a magnesium infusion this morning. Her platelets were low yesterday and oncology is aware and canceled chemo next week. Patient is due to have a PET scan in the coming weeks in lieu of chemo. She is feeling very down and frustrated with her current medical conditions but otherwise has no other complaints today. TCM TCM Information Date of Discharge 12/17/23 Discharged From [facility] Interactive Contact Date (Reference documentation from this date) 12/18/23 [facility] Medical History Small cell lung cancer COPD (chronic obstructive pulmonary disease) Small cell lung cancer (~08/2023) MDD (major depressive disorder), recurrent episode, moderate Abnormal CT scan, chest Mass of right lung Lung mass Bronchitis Rectal prolapse Nicotine dependence, cigarettes, uncomplicated Nonrheumatic mitral (valve) insufficiency Pulmonary nodule History of hepatitis C Osteopenia (~2011) IV drug user Endocarditis of mitral valve (~11/2017) Mitral valve prolapse Mitral regurgitation Early satiety Paresthesia of left leg Allergic rhinitis Facet arthritis of lumbar region Cervical spondylosis Vitamin D deficiency Pure hypercholesterolemia Benign essential hypertension GERD (gastroesophageal reflux disease) Anxiety Surgical History History of bronchoscopy (~2023) History of liver biopsy (~2009) History of partial colectomy (~2014) History of hysteroscopy (~2010) History of colonoscopy (~2017) Family History Father Internal bleeding Mother Medical history unknown Social History Household Members: Children Housing: House Housing Other:: lives alone with her cat Malena Do you presently have visiting nurse or other home services: Yes (2 daughters assist with bringing meals) Alcohol intake: former Patient Tobacco Use Status: Current everyday Tobacco user Tobacco use type: Cigarette Cigarette Packs Per Day: 0.25 Cigarettes Per Day: 5 Years Smoked: 44 years (onset 15, 1/2-3/4ppd x 44yrs, 28pyh) Packs Per Year: 0 Packs per year/per ci.00 e-Cigarette/Vaping Use: Never Used Second Hand Smoke Exposure: Yes Substance Use Type: Marijuana Advance Directives Date on File: 09/23/23 service: No Current occupational status: unemployed Sexual orientation: Straight/Heterosexual Gender identity: Female Cognitive needs: No Hearing needs: No Vision needs: Yes Female Reproductive History Menstrual Age of Menarche: 14 Questionnaire Thrive Questionnaire Date Thrive assessed: 12/15/23 Are you currently unemployed and looking for a job?: I choose not to answer this question CHRISSIE-7 AMB Questionnaire CHRISSIE-7 Date CHRISSIE - 7 assessed: 06/03/23 Source: Developed by Drs. Demar Wolf, Yocasta Slater, Mathew Juarez and colleagues, with an educational mendoza from [employer]. Review of Systems Const Denies chills, Reports fatigue and Denies fever(s) Eyes Reports no additional complaints ENT Reports no additional complaints Card Denies chest pain, Denies syncope, Denies leg edema, Denies lightheadedness and Denies dyspnea Resp Denies dyspnea GI Denies abdominal pain, Denies melena, Reports hematochezia (This a.m. only), Denies constipation and Denies diarrhea Reports no additional complaints Musc Reports no additional complaints Neuro Denies syncope Endo Reports fatigue Physical exam (Primary Care) Vital Signs: Last Vital Signs Pulse 62 12/22/23 14:48 BP 122/74 12/22/23 14:48 Pulse Ox 99 12/22/23 14:48 Oxygen Delivery Method Nasal Cannula 12/22/23 14:48 BMI result Body Mass Index 21.6 Tobacco/Smoking Status: Tobacco use Status Tobacco use date assessed 12/22/23 12/22/23 14:51 Patient Tobacco Use Status Current everyday Tobacco 12/22/23 14:51 Tobacco use type Cigarette 12/22/23 14:51 e-Cigarette/Vaping Use Never Used 12/22/23 14:51 Thrive Assessment: Date of Thrive Assessment Date Thrive assessed 12/15/23 12/22/23 14:51 Const General: cooperative, healthy appearing, comfortable and no acute distress Orientation/consciousness: patient oriented x3 HENMT Head: Yes normocephalic Ears: hearing grossly normal bilaterally General nose exam: Normal external nose present Eyes General: appearance normal, both eyes and all related structures Conjunctivae: conjunctivae normal Neck Neck: Yes full ROM and Yes no lymphadenopathy Resp Effort & Inspection: normal respiratory effort Auscultation: clear to auscultation bilaterally, no crackles, no rales, no rhonchi and no wheezes Cardio Rate: regular rate Rhythm: regular rhythm GI Other: Scant bright red blood in adult diaper Skin General skin exam: no rashes or lesions noted Neuro General: patient oriented x3 Gait exam (Neuro): Normal gait present Extrem General: Yes normal to inspection, Yes full ROM and No edema Psych Affect: normal affect Attitude: cooperative Insight: Good insight present (Psych) Judgement: Good judgement present (Psych) Assessment and Plan Assessment & Plan (1) Acute lower GI bleeding: Code(s): K92.2 - Gastrointestinal hemorrhage, unspecified Plan: Patient did have 1 episode of rectal bleeding this morning and spoke with Oncology who is aware and sent her for an infusion this morning as well. She is scheduled to follow up with Oncology this upcoming Thursday and is scheduled to follow up with GI in January. Advised patient to continue to keep an eye on her symptoms and if she continues to have rectal bleeding or becomes lightheaded or dizzy to present to the ER for evaluation. Continue to follow up with Oncology and GI. (2) Small cell lung cancer: Comment: As noted above her recent bronchoscopic exam and bronchial biopsy are positive small cell carcinoma. Code(s): C34.90 - Malignant neoplasm of unspecified part of unspecified bronchus or lung Plan: Continue to follow with oncology is due to have a PET scan in the coming weeks. (3) Nicotine dependence, cigarettes, uncomplicated: Comment: (current smoker - onset 15, 1/2-3/4ppd x 45yrs, 28pyh) Had quit smoking for a few months but now resumed smoking a few cigarettes every day. Code(s): F17.210 - Nicotine dependence, cigarettes, uncomplicated Plan: Strongly advised to stop smoking. Plan This note was constructed using voice recognition software. While every effort has been made to ensure accuracy and community board member, still areas may have been included sometimes these areas may affect the content or meeting of the given symptoms. Total time spent caring for the patient today was 30 minutes. This includes time spent before the visit reviewing the chart, time spent during the visit, and time spent after the visit and documentation. Coding Level of Care Code TCM Mod MDM <= 7 Days Diagnoses Acute lower GI bleeding K92.2 Small cell lung cancer C34.90 Nicotine dependence, cigarettes, uncomplicated F17.210
[2023-12-22 14:48] VITALS: BP 122/74; PULSE 62; O2SAT 99; BMI 21.6
== END 2023-12-22 15:51 | disposition home or self-care (01) ==
PROVIDERS: PCP Internal Medicine
DX: K92.2 Gastrointestinal hemorrhage, unspecified (principal); C34.90 Malignant neoplasm of unspecified part of unspecified bronchus or lung; F17.210 Nicotine dependence, cigarettes, uncomplicated

== ENCOUNTER → 2023-12-22 14:20 | Outpatient (BNVA) | payer OTHER, SELFPAY | PROVIDERS: PCP Internal Medicine | DX: K92.2 Gastrointestinal hemorrhage, unspecified (principal); C34.90 Malignant neoplasm of unspecified part of unspecified bronchus or lung; F17.210 Nicotine dependence, cigarettes, uncomplicated; Z71.6 Tobacco abuse counseling | CPT/HCPCS: 99212 ==

== ENCOUNTER 2023-12-27 05:20 | Emergency (ER) | payer OTHER, SELFPAY ==
[2023-12-27] VITALS (11 sets, daily range): BP systolic 116–160; BP diastolic 64–86; PULSE 59–74; RESP 15–20; TEMP 36.5–36.8; O2SAT 95–100; BMI 25.1
[2023-12-27 06:41] LABS: MANUAL DIFF FLAG NO
[2023-12-27 06:43] LABS: Basophils Percent Auto 0.5 % (0-2); Eosinophils Absolute Auto 0.1 X10*3/uL (0.0-0.4); Hematocrit 30.1 % (37.0-47.0); Hemoglobin 9.9 g/dl (12.0-16.0); Imm Gran Abs Auto 0.11 X10*3/uL (0.00-0.03); Imm Gran Pct Auto 1.8 % (0.0-0.4); Lymphocytes Percent Auto 15.5 % (20-40); Mean Corpuscular HGB Conc 32.9 g/dl (31.0-35.0); Mean Corpuscular Hemoglobin 31.5 pg (27.0-33.0); Mean Corpuscular Volume 95.9 fL (80.0-98.0); Mean Platelet Volume 9.2 fL (9.4-12.3); Monocytes Absolute Auto 0.5 X10*3/uL (0.1-1.2); Monocytes Percent Auto 8.4 % (2-11); Neutrophils Absolute Auto 4.5 x10*3/uL (2.0-8.3); Neutrophils Percent Auto 72.8 % (45-73); Red Blood Count 3.14 X10*6/uL (4.20-5.50); Red Cell Distribution Width 18.7 % (11.0-16.0); White Blood Count 6.2 X10*3/uL (4.8-10.8)
[2023-12-27 06:49] LABS: Platelet Count 31 X10*3/uL (160-400)
[2023-12-27 06:56] LABS: Alanine Aminotransferase 7 U/L (0-31); Albumin Level 3.9 g/dL (3.5-5.0); Alkaline Phosphatase 69 U/L (39-117); Anion Gap 11 (12-20); Aspartate Amino Transferase 11 U/L (5-31); Bilirubin Total 0.3 mg/dL (0.0-1.0); Blood Urea Nitrogen 13 mg/dL (9-16); Calcium 9.3 mg/dL (8.4-10.2); Carbon Dioxide 26 mmol/L (22-29); Chloride 108 mmol/L (96-108); Creatinine Clr Calc Pharmacy 74.6; Estimated Glomerular Filt Rate > 60; Glucose Random 102 mg/dL (60-115); Potassium 4.5 mmol/L (3.3-5.1); Sodium 140 mmol/L (135-145); Total Protein 6.2 g/dL (6.5-8.0)
--- NOTE | 2023-12-27 07:27 | ED_ITS ---
HPI - GI Bleed General Chief complaint: GI Bleed Stated complaint: CHRONIC RECTAL BLEEDING PER EMS Time Seen by Provider: 12/27/23 07:15 Source: patient Mode of arrival: ambulatory Limitations: no limitations History of Present Illness ED Provider: DR. Tamayo HPI Narrative: This is a 63-year-old female history of metastatic small-cell lung cancer receiving chemotherapy carboplatin and etoposide with atezolizummab infusion, adjustment disorder, COPD on supplemental oxygen still active smoker, IVDA, hep C, HTN, IBS, anemia. came in had bright red blood per rectum patient had a recent sigmoidoscopy on 12/14 which revealed diverticulosis and internal hemorrhoids, patient stated last time she noticed blood per her rectum was early this morning, patient do not feel dizzy or chest pain or abdominal pain. Related Data Home Medications ?Medication ?Instructions ?Recorded ?Confirmed alosetron 0.5 mg tablet 1 mg PO DAILY@0900 07/22/23 12/27/23 cholecalciferol (vitamin D3) 50 50 mcg PO DAILY@89907/22/23 12/27/23 mcg (2,000 unit) capsule solifenacin 10 mg tablet 10 mg PO DAILY@0900 07/22/23 12/27/23 sucralfate 1 gram tablet (Carafate) 4 g PO DAILY@1200 07/25/23 12/27/23 budesonide 180 mcg/actuation 2 inh inhalation BID 09/28/23 12/27/23 breath activated powder inhaler (Pulmicort Flexhaler) dexamethasone 4 mg tablet 4 mg PO WETH 10/21/23 12/27/23 metoclopramide HCl 5 mg tablet 5 mg PO TIDAC 12/14/23 12/27/23 mirtazapine 30 mg tablet 30 mg PO BEDTIME 12/27/23 12/27/23 sennosides 8.6 mg-docusate sodium 1 tab PO BEDTIME 12/27/23 12/27/23 50 mg tablet (Senexon-S) Previous Rx's ?Medication ?Instructions ?Recorded albuterol sulfate 90 mcg/actuation 1 puff PO Q6H PRN shortness of 03/20/23 aerosol inhaler (Ventolin HFA) breath or wheezing 30 days #8.5 grams hydroxyzine HCl 50 mg tablet 50 mg PO BEDTIME #90 tabs 05/21/23 nicotine 14 mg/24 hr daily 1 patch transdermal Q24H smoking 08/17/23 transdermal patch 28 days #28 ea fluticasone propionate 50 1 spray intranasal DAILY 30 days 09/11/23 mcg/actuation nasal #16 grams spray,suspension loperamide 2 mg capsule 2 mg PO Q6H PRN Diarrhea #14 caps 10/09/23 diphenoxylate-atropine 2.5 1 tab PO DAILY PRN Diarrhea #30 10/14/23 mg-0.025 mg tablet (Lomotil) tabs nicotine (polacrilex) 4 mg buccal 4 mg buccal Q8H PRN Anxiety #60 ea 10/14/23 lozenge pantoprazole 40 mg tablet,delayed 40 mg PO DAILY@0630 90 days #90 10/30/23 release tabs metoprolol succinate 50 mg 50 mg PO DAILY #90 tabs 11/22/23 tablet,extended release 24 hr tiotropium bromide 18 mcg capsule 1 cap inhalation DAILY #30 ea 11/23/23 with inhalation device (Spiriva with HandiHaler) clonazepam 0.5 mg tablet 0.5 mg PO BID PRN Anxiety #60 tabs 11/26/23 dextromethorphan-guaifenesin 10 10 ml PO TID PRN cough #237 mL 11/30/23 mg-100 mg/5 mL oral syrup potassium chloride 20 mEq 20 meq PO DAILY #30 tabs 12/08/23 tablet,extended release (K-Tab) hydrocortisone 2.5 % topical cream 1 appl OR BID #30 grams 12/17/23 with perineal applicator (Proctozone-HC) magnesium 250 mg tablet 250 mg PO BID #180 tabs 12/17/23 sodium chloride 1,000 mg soluble 1,000 mg PO BID #180 tabs 12/17/23 tablet ondansetron 8 mg disintegrating 8 mg PO Q8H PRN Nausea And 12/24/23 tablet Vomiting #30 tabs oxycodone 5 mg tablet 5 mg PO Q6H PRN pain #30 tabs 12/25/23 Allergies Allergy/AdvReac Type Severity Reaction Status Date / Time No Known Allergies Allergy Unknown unknown Verified 12/27/23 05:39 [NO KNOWN ALLERGIES] Review of Systems 2 Review of Systems: all other systems are reviewed and are negative Constitutional: Reports as per HPI and Reports no additional constitutional complaints Eyes: Reports as per HPI and Reports no additional eye complaints Reports system reviewed and no additional complaints, except as documented Cardiovascular: Reports as per HPI and Reports no additional cardiovascular complaints Respiratory: Reports as per HPI and Reports no additional respiratory complaints Gastrointestinal: Reports as per HPI and Reports no additional gastrointestinal complaints Genitourinary: Reports no additional female genitourinary complaints Musculoskeletal: Reports no additional musculoskeletal complaints Skin/Breast: Reports system reviewed and no additional complaints, except as docu Psychiatric: Reports no additional psychiatric complaints Endocrine: Reports no additional endocrine complaints Hematologic/Lymphatic: Reports no additional hematologic/lymphatic complaints Allergic/Immunologic: Reports no additional allergic/immunologic complaints Reports system reviewed and no additional complaints, except as documented and Reports Abnormal speech present [facility] Past Medical History Medical History Small cell lung cancer COPD (chronic obstructive pulmonary disease) Small cell lung cancer (~08/2023) MDD (major depressive disorder), recurrent episode, moderate Abnormal CT scan, chest Mass of right lung Lung mass Bronchitis Rectal prolapse Nicotine dependence, cigarettes, uncomplicated Nonrheumatic mitral (valve) insufficiency Pulmonary nodule History of hepatitis C Osteopenia (~2011) IV drug user Endocarditis of mitral valve (~11/2017) Mitral valve prolapse Mitral regurgitation Early satiety Paresthesia of left leg Allergic rhinitis Facet arthritis of lumbar region Cervical spondylosis Vitamin D deficiency Pure hypercholesterolemia Benign essential hypertension GERD (gastroesophageal reflux disease) Anxiety Surgical History History of bronchoscopy (~2023) History of liver biopsy (~2009) History of partial colectomy (~2014) History of hysteroscopy (~2010) History of colonoscopy (~2017) Family History Family History Father Internal bleeding Mother Medical history unknown Social History Social History Household Members: Children Housing: House Housing Other:: lives alone with her cat Gizmo Do you presently have visiting nurse or other home services: Yes (2 daughters assist with bringing meals) Alcohol intake: former Patient Tobacco Use Status: Current everyday Tobacco user Tobacco use type: Cigarette Cigarette Packs Per Day: 0.25 Cigarettes Per Day: 5 Years Smoked: 44 years (onset 15, 1/2-3/4ppd x 44yrs, 28pyh) Smoked in Last 30 Days: Yes e-Cigarette/Vaping Use: Never Used Second Hand Smoke Exposure: Yes Substance Use Type: Marijuana Advance Directives: Yes Advance Directives on File: Yes Advance Directives Date on File: 09/23/23 Do you have a plan to hurt others: No Plan service: No Current occupational status: unemployed Sexual orientation: Straight/Heterosexual Gender identity: Female Cognitive needs: No Hearing needs: No Vision needs: Yes Physical Exam 2 Vital Signs: Vital Signs: Last Vital Signs Temp 98.3 F 12/27/23 14:55 Pulse 66 12/27/23 14:55 Resp 15 12/27/23 14:55 BP 147/78 H 12/27/23 14:55 Pulse Ox 100 12/27/23 14:13 O2 Del Method Nasal Cannula 12/27/23 14:13 O2 Flow Rate 3 12/27/23 14:13 Oxygen Flow Rate 2 12/27/23 05:31 BMI result Body Mass Index 25.1 Vital signs have been reviewed and appear to be correct. Blood pressure elevated. Heart rate normal. Respiratory rate normal. Temperature normal. Oxygen saturation normal. Appearance: Alert. Oriented X3. No acute distress. Head: Normal external exam. Normocephalic. Atraumatic. No Flores signs noted. No raccoon eyes noted Eyes: PERRLA. EOMI. Conjunctiva and sclera normal. Eyelids normal. ENT: TM's Normal. Pharynx normal. Uvula midline. Moist mucous membranes. No trismus noted. No drooling noted. No muffled voice noted. Neck: Normal inspection. Neck supple. FROM. No adenopathy. Thyroid Normal. No meningeal signs. No neck mass noted. CVS: Normal heart rate and rhythm. Heart sound normal. No murmurs noted. Pulses normal throughout. Respiratory: No respiratory distress. Painless inspiration. Breath sounds normal. No wheezes/rales/rhonchi noted. Chest nontender. No accessory muscle usage noted or decreased air movement noted. Abdomen: Soft and nontender. Bowel sounds normal in all 4 quadrants. No distention noted. No organomegaly noted. No visible injury noted. Rectal exam: No external or internal hemorrhoid, brown stool with trace guaiac positive. Back: No CVA tenderness. Full range of motion noted. Skin: Skin warm and dry. Normal skin color. Normal skin turgor. No rashes/lesions/lacerations noted. Extremities: No lower extremity edema. Extremities exhibit normal range of motion. Extremities nontender. Neuro: Oriented X 3. Cranial nerve exam: II-XII are grossly intact No motor deficit. No sensory deficit. Reflexes normal. Course Reevaluation(s) Reevaluation #1: 63-year-old female with history of small cell carcinoma currently receiving chemotherapy that is worsening chronic thrombocytopenia presented with GI bleed, platelet count is 31 with active bleed will consider transfusing platelet, H&H is otherwise stable and hemodynamically stable will admit the patient for further reassessment and serial CBC. Time: 08:29 Reevaluation #2: Patient was seen and examined at bedside by Dr. Bergman who is familiar with the patient patient at her baseline and recommending discharge with no admission, repeat rectal exam showed brown stool with trace guaiac positive, known to have internal hemorrhoids and diverticulosis, received 1 unit of platelets in the emergency department, hemodynamically stable will repeat another CBC then discharged home. Time: 11:48 Reevaluation #3: repeat CBC with stable H&H and improvement of the platelet count, patient went to have bowel movement while in the emergency department no massive bleeding reported by the patient. Time: 15:33 Medications Administered Discontinued Medications Generic Name Dose Route Start Last Admin Trade Name Freq PRN Reason Stop Dose Admin Sodium Chloride 100 mls @ 100 mls/hr 12/27/23 08:21 12/27/23 13:50 Ns IV 12/27/23 09:20 Infused ONCE ONE Infusion Morphine Sulfate 1 mg 12/27/23 09:25 12/27/23 09:53 Morphine Sulfate 2 Mg/Ml Cartridge IVPUSH 12/27/23 09:26 1 mg ONCE ONE Administration Protocol Medical Decision Making Differential Diagnosis Differential Diagnoses: The differential diagnosis associated with the presentation includes ( Active GI bleed, thrombocytopenia, severe anemia, electrolyte derangement.) Admission/Observation Consideration of admission/observation: Escalation of care including admission/observation considered Consult Healthcare Provider Management of the patient was discussed with: Hospitalist ( Dr. Bergman) Lab Data MDM Lab Attestation statement: I reviewed the patient's lab results. 12/27/23 15:03 12/27/23 06:36 Labs: Lab Results 12/27/23 12/27/23 12/27/23 Range/Units 06:36 07:28 08:45 WBC 6.2 (4.8-10.8) X10*3/uL RBC 3.14 L (4.20-5.50) X10*6/uL Hgb 9.9 L (12.0-16.0) g/dl Hct 30.1 L (37.0-47.0) % MCV 95.9 (80.0-98.0) fL MCH 31.5 (27.0-33.0) pg MCHC 32.9 (31.0-35.0) g/dl RDW 18.7 H (11.0-16.0) % Plt Count 31 L (160-400) X10*3/uL MPV 9.2 L (9.4-12.3) fL Immature Gran % (Auto) 1.8 H (0.0-0.4) % Neut % (Auto) 72.8 (45-73) % Lymph % (Auto) 15.5 L (20-40) % [place] % (Auto) 8.4 (2-11) % Eos % (Auto) 1.0 (0-4) % Baso % (Auto) 0.5 (0-2) % Lymph # (Auto) 1.0 L (1.2-4.9) X10*3/uL [place] # (Auto) 0.5 (0.1-1.2) X10*3/uL Eos # (Auto) 0.1 (0.0-0.4) X10*3/uL Baso # (Auto) 0.0 (0.0-0.2) X10*3/uL Abs Immat Gran (auto) 0.11 H (0.00-0.03) X10*3/uL Absolute Neuts (auto) 4.5 (2.0-8.3) x10*3/uL Absolute Nucleated RBC 0.000 (0.0-0.012) X10*3/uL Nucleated RBC % (auto) 0.0 (0.0-0.2) /100WBC Sodium 140 (135-145) mmol/L Potassium 4.5 (3.3-5.1) mmol/L Chloride 108 (96-108) mmol/L Carbon Dioxide 26 (22-29) mmol/L Anion Gap 11 L (12-20) BUN 13 (9-16) mg/dL Creatinine 0.66 (0.5-1.4) mg/dL Estim Creat Clear Calc 74.6 Estimated GFR > 60 Random Glucose 102 (60-115) mg/dL Calcium 9.3 (8.4-10.2) mg/dL Total Bilirubin 0.3 (0.0-1.0) mg/dL AST 11 (5-31) U/L ALT 7 (0-31) U/L Alkaline Phosphatase 69 (39-117) U/L Total Protein 6.2 L (6.5-8.0) g/dL Albumin 3.9 (3.5-5.0) g/dL Urine Color Yellow Urine Appearance Clear Urine pH 8.5 (5.0-9.0) Ur Specific [place] 1.020 (1.005-1.025) Urine Protein Trace (Neg-Trace) mg/dL Urine Glucose (UA) Negative (Negative) mg/dL Urine Ketones Negative (Negative) mg/dL Urine Blood Negative (Negative) Urine Nitrite Negative (Negative) Ur Leukocyte Esterase Small (1+) H (Negative) Urine RBC 0-2 (0-2) /HPF Urine WBC 11-20 (0-5) /HPF Ur Squamous Epith Cells 3-5 (0-2) /HPF Urine Bacteria 2+ (None Seen) Hyaline Casts 0-2 (0-2) /LPF Stool Occult Blood POSITIVE (NEGATIVE) Blood Type B Positive Antibody Screen NEGATIVE Crossmatch (AHG) See Detail 12/27/23 Range/Units 15:03 WBC 6.8 (4.8-10.8) X10*3/uL RBC 2.97 L (4.20-5.50) X10*6/uL Hgb 9.6 L (12.0-16.0) g/dl Hct 28.3 L (37.0-47.0) % MCV 95.3 (80.0-98.0) fL MCH 32.3 (27.0-33.0) pg MCHC 33.9 (31.0-35.0) g/dl RDW 18.8 H (11.0-16.0) % Plt Count 58 L D (160-400) X10*3/uL MPV 9.3 L (9.4-12.3) fL Immature Gran % (Auto) 1.5 H (0.0-0.4) % Neut % (Auto) 75.1 H (45-73) % Lymph % (Auto) 14.5 L (20-40) % [place] % (Auto) 7.5 (2-11) % Eos % (Auto) 1.0 (0-4) % Baso % (Auto) 0.4 (0-2) % Lymph # (Auto) 1.0 L (1.2-4.9) X10*3/uL [place] # (Auto) 0.5 (0.1-1.2) X10*3/uL Eos # (Auto) 0.1 (0.0-0.4) X10*3/uL Baso # (Auto) 0.0 (0.0-0.2) X10*3/uL Abs Immat Gran (auto) 0.10 H (0.00-0.03) X10*3/uL Absolute Neuts (auto) 5.1 (2.0-8.3) x10*3/uL Absolute Nucleated RBC 0.000 (0.0-0.012) X10*3/uL Nucleated RBC % (auto) 0.0 (0.0-0.2) /100WBC Sodium (135-145) mmol/L Potassium (3.3-5.1) mmol/L Chloride (96-108) mmol/L Carbon Dioxide (22-29) mmol/L Anion Gap (12-20) BUN (9-16) mg/dL Creatinine (0.5-1.4) mg/dL Estim Creat Clear Calc Estimated GFR Random Glucose (60-115) mg/dL Calcium (8.4-10.2) mg/dL Total Bilirubin (0.0-1.0) mg/dL AST (5-31) U/L ALT (0-31) U/L Alkaline Phosphatase (39-117) U/L Total Protein (6.5-8.0) g/dL Albumin (3.5-5.0) g/dL Urine Color Urine Appearance Urine pH (5.0-9.0) Ur Specific [place] (1.005-1.025) Urine Protein (Neg-Trace) mg/dL Urine Glucose (UA) (Negative) mg/dL Urine Ketones (Negative) mg/dL Urine Blood (Negative) Urine Nitrite (Negative) Ur Leukocyte Esterase (Negative) Urine RBC (0-2) /HPF Urine WBC (0-5) /HPF Ur Squamous Epith Cells (0-2) /HPF Urine Bacteria (None Seen) Hyaline Casts (0-2) /LPF Stool Occult Blood (NEGATIVE) Blood Type Antibody Screen Crossmatch (AHG) Chronic Conditions Patient?s care impacted by: Cancer ( on chemotherapy and chronic thrombocytopenia) Critical Care Time Critical Care Time Critical Care Time: Yes Total Critical Care Time: 45 Attestation: The patient was critically ill with a high probability of imminent or life- threatening deterioration. I spent greater than 30 minutes of discontinuous time evaluating the patient, delivering critical care at the bedside, discussing evaluating data with consultants. Critical care time does not include time spent performing separately billable procedures or teaching. Time spent performing critical care was 45 minutes. Discharge Plan Discharge Clinical Impression: Acute GI bleeding, Thrombocytopenic Patient Disposition: Home, Self-Care Instructions: Rectal Bleeding (ED), Thrombocytopenia (ED) Prescriptions: No Action albuterol sulfate [Ventolin HFA] 90 mcg/actuation HFA aerosol inhaler 1 puff PO Q6H PRN (Reason: shortness of breath or wheezing) 30 Days Qty: 8.5 3RF hydroxyzine HCl 50 mg tablet 50 mg PO BEDTIME Qty: 90 1RF fluticasone propionate 50 mcg/actuation spray,suspension 1 spray intranasal DAILY 30 Days Qty: 16 2RF pantoprazole 40 mg tablet,delayed release (DR/EC) 40 mg PO DAILY@0630 90 Days Qty: 90 0RF metoprolol succinate 50 mg tablet extended release 24 hr 50 mg PO DAILY Qty: 90 1RF tiotropium bromide [Spiriva with HandiHaler] 18 mcg capsule, w/inhalation device 1 cap inhalation DAILY Qty: 30 5RF oxycodone 5 mg tablet 5 mg PO Q6H PRN (Reason: pain) Qty: 30 0RF alosetron 0.5 mg tablet 1 mg PO DAILY@0900 solifenacin 10 mg tablet 10 mg PO DAILY@0900 cholecalciferol (vitamin D3) 50 mcg (2,000 unit) capsule 50 mcg PO DAILY@0900 Rx Instructions: 1 capsule Orally Once a day sucralfate [Carafate] 1 gram tablet 4 g PO DAILY@1200 nicotine (polacrilex) 4 mg Lozenge 4 mg BUCCAL Q8H PRN (Reason: Anxiety) Qty: 60 0RF diphenoxylate-atropine [Lomotil] 2.5-0.025 mg Tablet 1 tab PO DAILY PRN (Reason: Diarrhea) Qty: 30 0RF dexamethasone 4 mg tablet 4 mg PO WETH Rx Instructions: for chemo treatments clonazepam 0.5 mg Tablet 0.5 mg PO BID PRN (Reason: Anxiety) Qty: 60 0RF dextromethorphan-guaifenesin 10-100 mg/5 mL Syrup 10 ml PO TID PRN (Reason: cough) Qty: 237 0RF potassium chloride [K-Tab] 20 mEq Tablet Extended Release 20 meq PO DAILY Qty: 30 0RF ondansetron 8 mg Tablet,Disintegrating 8 mg PO Q8H PRN (Reason: Nausea And Vomiting) Qty: 30 3RF Pulmicort Flexhaler 180 mcg/actuation aerosol powdr breath activated 2 inh INHALATION BID loperamide 2 mg Capsule 2 mg PO Q6H PRN (Reason: Diarrhea) Qty: 14 0RF metoclopramide HCl 5 mg tablet 5 mg PO TIDAC hydrocortisone [Proctozone-HC] 2.5 % Cream With Perineal Applicator 1 appl OR BID Qty: 30 0RF magnesium 250 mg tablet 250 mg PO BID Qty: 180 0RF sodium chloride 1,000 mg tablet,soluble 1,000 mg PO BID Qty: 180 0RF sennosides-docusate sodium [Senexon-S] 8.6-50 mg tablet 1 tab PO BEDTIME mirtazapine 30 mg tablet 30 mg PO BEDTIME nicotine 14 mg/24 hr patch 24 hour 1 patch transdermal Q24H MDD smoking 28 Days Qty: 28 2RF Referrals: Sarthak Person MD [Primary Care Provider] - Print Language: Sudanese
[2023-12-27 07:41] LABS: OBS Int Ctl Valid YES; OBS1 POSITIVE (NEGATIVE)
[2023-12-27 07:47] LABS: Appearance Urine Clear; Color Urine Yellow; Glucose Urine UA Negative (Negative); Leukocyte Esterase Urine Small (1+) (Negative); Nitrite Urine Negative (Negative); PH 8.5 (5.0-9.0); UMIC TRIGGER UACC YES; Urine Blood Negative (Negative); Urine Ketones Negative (Negative); Urine Protein Trace mg/dL (Neg-Trace)
[2023-12-27 08:08] LABS: Bacteria Urine 2+ (None Seen); Hyaline Casts Urine 0-2 /LPF (0-2); RBC Urine 0-2 /HPF (0-2); UACC Culture Trigger YES
--- NOTE | 2023-12-27 09:27 | PHA.MEDREC ---
Pharmacy Consult ? Medication Reconciliation Pharmacy has completed the medication reconciliation.
[2023-12-27] MEDS: Morphine Sulfate 2 MG/ML CARTRIDGE 1 MG IVPUSH (09:53)
[2023-12-27 15:06] LABS: MANUAL DIFF FLAG NO
[2023-12-27 15:07] LABS: Basophils Percent Auto 0.4 % (0-2); Eosinophils Absolute Auto 0.1 X10*3/uL (0.0-0.4); Hematocrit 28.3 % (37.0-47.0); Hemoglobin 9.6 g/dl (12.0-16.0); Imm Gran Pct Auto 1.5 % (0.0-0.4); Lymphocytes Percent Auto 14.5 % (20-40); Mean Corpuscular HGB Conc 33.9 g/dl (31.0-35.0); Mean Corpuscular Hemoglobin 32.3 pg (27.0-33.0); Mean Corpuscular Volume 95.3 fL (80.0-98.0); Mean Platelet Volume 9.3 fL (9.4-12.3); Monocytes Absolute Auto 0.5 X10*3/uL (0.1-1.2); Monocytes Percent Auto 7.5 % (2-11); Neutrophils Absolute Auto 5.1 x10*3/uL (2.0-8.3); Neutrophils Percent Auto 75.1 % (45-73); Red Blood Count 2.97 X10*6/uL (4.20-5.50); Red Cell Distribution Width 18.8 % (11.0-16.0); White Blood Count 6.8 X10*3/uL (4.8-10.8)
[2023-12-27 15:11] LABS: Platelet Count 58 X10*3/uL (160-400)
--- NOTE | 2023-12-28 08:26 | MHC.HEMONC ---
Pt called me to tell me that she came to ER yesterday and got PLT tx after calling ambulance for rectal bleeding. She was not recommended for admission as no further large amount of bleeding and PLT repeated and up to 58. This morning she tells me she vomited and it was black and like acid. She took a nausea pill. She has not eaten since yesterday. I asked her to call me in a couple of hours with report. Her PET did mention possible need for endoscopy. I will discuss with Dr Horton (covering). Dr James will return on Thursday.
--- NOTE | 2023-12-28 08:49 | MHC.HEMONC ---
I discussed with Dr Horton and she thinks pt should see GI for upper endo due to her c/o vomiting this am. It would likely require her to be seen in ER so I have left her a message to call me so that I could ask her to come to ER.
== END 2023-12-27 16:02 | disposition home or self-care (01) ==
PROVIDERS: Emergency Provider Emergency Medicine; PCP Internal Medicine
DX: K92.2 Gastrointestinal hemorrhage, unspecified (principal); D69.49 Other primary thrombocytopenia; J44.9 Chronic obstructive pulmonary disease, unspecified; F17.210 Nicotine dependence, cigarettes, uncomplicated; Z79.899 Other long term (current) drug therapy; Z99.81 Dependence on supplemental oxygen
CPT/HCPCS: 36415; 80053; 81001; 82272; 85025; 86850; 86900; 86901; 86920; 86922; 87086; 87088; 87186; 96361; 96374; 99284; 99285; J2270; P9073

== ENCOUNTER 2023-12-28 10:51 | Observation (INO) | payer OTHER, SELFPAY ==
[2023-12-28 11:07] VITALS: BP 97/63; PULSE 89; RESP 20; TEMP 36.9; O2SAT 99; BMI 20.9
--- NOTE | 2023-12-28 11:11 | ED.GENADULT ---
HPI - General Adult General Chief complaint: GI Bleed Stated complaint: sent in by Dr Barton for procedure Time Seen by Provider: 12/28/23 11:49 Source: patient Mode of arrival: ambulatory Limitations: no limitations History of Present Illness ED Provider: Santana CORONADO HPI narrative: This is a 63-year-old female history of small cell lung cancer, adjustment disorder, COPD, history of IV drug abuse, hepatitis-C, mitral valve prolapse, PVCs, hypertension, GERD, anemia, anxiety, depression presents to the emergency department with dark brown stool per rectum ongoing for the past day. She reports yesterday she had a guaiac done which is positive and this morning her stool is dark black. She also had a platelet infusion yesterday which she had nausea and vomiting following. Last had a bowel movement this morning and it was soft, ?mushy?. She spoke to the Oncology Department who recommended she comes in to be evaluated possible endoscopy. She denies weakness, chest pain, shortness of breath,headache, vision changes, dizziness and weakness. Related Data Home Medications ?Medication ?Instructions ?Recorded ?Confirmed alosetron 0.5 mg tablet 1 mg PO DAILY@0907/22/23 12/27/23 cholecalciferol (vitamin D3) 50 50 mcg PO DAILY@89907/22/23 12/27/23 mcg (2,000 unit) capsule solifenacin 10 mg tablet 10 mg PO DAILY@0907/22/23 12/27/23 sucralfate 1 gram tablet (Carafate) 4 g PO DAILY@1200 07/25/23 12/27/23 budesonide 180 mcg/actuation 2 inh inhalation BID 09/28/23 12/27/23 breath activated powder inhaler (Pulmicort Flexhaler) dexamethasone 4 mg tablet 4 mg PO WETH 10/21/23 12/27/23 metoclopramide HCl 5 mg tablet 5 mg PO TIDAC 12/14/23 12/27/23 mirtazapine 30 mg tablet 30 mg PO BEDTIME 12/27/23 12/27/23 sennosides 8.6 mg-docusate sodium 1 tab PO BEDTIME 12/27/23 12/27/23 50 mg tablet (Senexon-S) Previous Rx's ?Medication ?Instructions ?Recorded albuterol sulfate 90 mcg/actuation 1 puff PO Q6H PRN shortness of 03/20/23 aerosol inhaler (Ventolin HFA) breath or wheezing 30 days #8.5 grams hydroxyzine HCl 50 mg tablet 50 mg PO BEDTIME #90 tabs 05/21/23 nicotine 14 mg/24 hr daily 1 patch transdermal Q24H smoking 08/17/23 transdermal patch 28 days #28 ea fluticasone propionate 50 1 spray intranasal DAILY 30 days 09/11/23 mcg/actuation nasal #16 grams spray,suspension loperamide 2 mg capsule 2 mg PO Q6H PRN Diarrhea #14 caps 10/09/23 diphenoxylate-atropine 2.5 1 tab PO DAILY PRN Diarrhea #30 10/14/23 mg-0.025 mg tablet (Lomotil) tabs nicotine (polacrilex) 4 mg buccal 4 mg buccal Q8H PRN Anxiety #60 ea 10/14/23 lozenge pantoprazole 40 mg tablet,delayed 40 mg PO DAILY@0630 90 days #90 10/30/23 release tabs metoprolol succinate 50 mg 50 mg PO DAILY #90 tabs 11/22/23 tablet,extended release 24 hr tiotropium bromide 18 mcg capsule 1 cap inhalation DAILY #30 ea 11/23/23 with inhalation device (Spiriva with HandiHaler) clonazepam 0.5 mg tablet 0.5 mg PO BID PRN Anxiety #60 tabs 11/26/23 dextromethorphan-guaifenesin 10 10 ml PO TID PRN cough #237 mL 11/30/23 mg-100 mg/5 mL oral syrup potassium chloride 20 mEq 20 meq PO DAILY #30 tabs 12/08/23 tablet,extended release (K-Tab) hydrocortisone 2.5 % topical cream 1 appl ID BID #30 grams 12/17/23 with perineal applicator (Proctozone-HC) magnesium 250 mg tablet 250 mg PO BID #180 tabs 12/17/23 sodium chloride 1,000 mg soluble 1,000 mg PO BID #180 tabs 12/17/23 tablet ondansetron 8 mg disintegrating 8 mg PO Q8H PRN Nausea And 12/24/23 tablet Vomiting #30 tabs oxycodone 5 mg tablet 5 mg PO Q6H PRN pain #30 tabs 12/25/23 Allergies Allergy/AdvReac Type Severity Reaction Status Date / Time No Known Allergies Allergy Unknown unknown Verified 12/28/23 11:08 [NO KNOWN ALLERGIES] Review of Systems Review of Systems: Yes all other systems are reviewed and are negative [facility] Past Medical History Attestation statement: The following information was validated with the patient. Source: old records reviewed and nursing notes reviewed Medical History Small cell lung cancer COPD (chronic obstructive pulmonary disease) Small cell lung cancer (~08/2023) MDD (major depressive disorder), recurrent episode, moderate Abnormal CT scan, chest Mass of right lung Lung mass Bronchitis Rectal prolapse Nicotine dependence, cigarettes, uncomplicated Nonrheumatic mitral (valve) insufficiency Pulmonary nodule History of hepatitis C Osteopenia (~2011) IV drug user Endocarditis of mitral valve (~11/2017) Mitral valve prolapse Mitral regurgitation Early satiety Paresthesia of left leg Allergic rhinitis Facet arthritis of lumbar region Cervical spondylosis Vitamin D deficiency Pure hypercholesterolemia Benign essential hypertension GERD (gastroesophageal reflux disease) Anxiety Surgical History History of bronchoscopy (~2023) History of liver biopsy (~2009) History of partial colectomy (~2014) History of hysteroscopy (~2010) History of colonoscopy (~2017) Family History Family History Father Internal bleeding Mother Medical history unknown Social History Social History Household Members: Children Housing: House Housing Other:: lives alone with her cat Malena Do you presently have visiting nurse or other home services: Yes (2 daughters assist with bringing meals) Alcohol intake: former Patient Tobacco Use Status: Current everyday Tobacco user Tobacco use type: Cigarette Cigarette Packs Per Day: 0.25 Cigarettes Per Day: 5 Years Smoked: 45 years (onset 15, 1/2-3/4ppd x 44yrs, 28pyh) Smoked in Last 30 Days: Yes e-Cigarette/Vaping Use: Never Used Second Hand Smoke Exposure: Yes Use of substances other than those prescribed or required for medical reasons: No Substance Use Type: Marijuana Advance Directives: Yes Advance Directives on File: Yes Advance Directives Date on File: 09/23/23 Patient : No service: No Current occupational status: unemployed Sexual orientation: Straight/Heterosexual Gender identity: Female Cognitive needs: No Hearing needs: No Vision needs: Yes Physical Exam ED Vital Signs: Vital Signs - 24 hr 12/28/23 11:07 Temperature 98.4 F Pulse Rate 89 Respiratory Rate 20 Blood Pressure 97/63 Pulse Oximetry 99 Oxygen Delivery Method Nasal Cannula BMI result Body Mass Index 20.9 Course Course Course Narrative: RME performed by Britany Doe PA-C. Patient is a 63 year old assigned female at presenting to the emergency department with vomiting, blood in her stool, and chest pain. Patient states she got platelets yesterday and continues to have vomiting and blood in her stool. Was sent in by Dr. Horton for an endoscopy. Has stage 3 small cell lung cancer. Detailed physical exam and review of systems are deferred to the director dietetics department. Labs ordered. Patient placed back in the waiting room pending room availability and results. Reevaluation(s) Reevaluation #1: CBC with improved normocytic anemia from yesterday. Platelets also improved. Chemistry completely unremarkable. OBS yesterday positive. Continues to have dark stool. Plan hospital admission. Did discuss this case with hematology oncology as well as GI, patient will likely be scoped tomorrow. Time: 13:10 Medical Decision Making Medical Decision Making [facility] Narrative: 63-year-old female presents with dark stool x1 day. Was advised to come in by oncology. Per chart review patient was seen here yesterday she had a positive guaiac, she was anemic. She also had a platelet infusion. Physical exam pallor to skin throughout. History and physical exam concerning for lower GI bleed with anemia likely related to this. I do not suspect hemorrhage at this time. No signs of hemodynamic instability. Will rule out electrolyte abnormalities. Will rule out anemia. Plan labs, imaging, consult to Hematology Oncology as well as GI Differential Diagnosis Differential Diagnoses: The differential diagnosis associated with the presentation includes History and physical exam concerning for lower GI bleed with anemia likely related to this. I do not suspect hemorrhage at this time. No signs of hemodynamic instability. Will rule out electrolyte abnormalities. Will rule out anemia. Admission/Observation Consideration of admission/observation: Escalation of care including admission/observation considered likely Consult Healthcare Provider Management of the patient was discussed with: Immunohematologist (GI & HEMONC) Lab Data MDM Lab Attestation statement: I reviewed the patient's lab results. 12/28/23 11:28 12/28/23 11:28 Labs: Lab Results 12/28/23 Range/Units 11:28 WBC 5.1 (4.8-10.8) X10*3/uL RBC 3.34 L (4.20-5.50) X10*6/uL Hgb 10.7 L (12.0-16.0) g/dl Hct 31.7 L (37.0-47.0) % MCV 94.9 (80.0-98.0) fL MCH 32.0 (27.0-33.0) pg MCHC 33.8 (31.0-35.0) g/dl RDW 18.6 H (11.0-16.0) % Plt Count 61 L (160-400) X10*3/uL MPV 9.8 (9.4-12.3) fL Immature Gran % (Auto) 1.0 H (0.0-0.4) % Neut % (Auto) 79.9 H (45-73) % Lymph % (Auto) 11.7 L (20-40) % Jennings % (Auto) 6.2 (2-11) % Eos % (Auto) 0.4 (0-4) % Baso % (Auto) 0.8 (0-2) % Lymph # (Auto) 0.6 L (1.2-4.9) X10*3/uL Jennings # (Auto) 0.3 (0.1-1.2) X10*3/uL Eos # (Auto) 0.0 (0.0-0.4) X10*3/uL Baso # (Auto) 0.0 (0.0-0.2) X10*3/uL Abs Immat Gran (auto) 0.05 H (0.00-0.03) X10*3/uL Absolute Neuts (auto) 4.1 (2.0-8.3) x10*3/uL Absolute Nucleated RBC 0.000 (0.0-0.012) X10*3/uL Nucleated RBC % (auto) 0.0 (0.0-0.2) /100WBC PT 11.5 (10.9-12.4) SEC INR 1.0 (0.9-1.1) APTT 28.1 (26.0-36.8) SEC Sodium 139 (135-145) mmol/L Potassium 4.1 (3.3-5.1) mmol/L Chloride 104 (96-108) mmol/L Carbon Dioxide 26 (22-29) mmol/L Anion Gap 13 (12-20) BUN 13 (9-16) mg/dL Creatinine 0.71 (0.5-1.4) mg/dL Estim Creat Clear Calc 63.2 Estimated GFR > 60 Random Glucose 110 (60-115) mg/dL Calcium 9.6 (8.4-10.2) mg/dL Magnesium 1.8 (1.6-2.6) mg/dL Total Bilirubin 0.4 (0.0-1.0) mg/dL AST 16 (5-31) U/L ALT 9 (0-31) U/L Alkaline Phosphatase 70 (39-117) U/L Troponin I High Sens < 2.7 (<3.5-17.0) ng/L Total Protein 7.2 (6.5-8.0) g/dL Albumin 4.5 (3.5-5.0) g/dL Blood Type B Positive Antibody Screen NEGATIVE Independent Interpretation I performed an independent interpretation of an: EKG (Vent. Rate : 084 BPM Atrial Rate : 084 BPM P-R Int : 172 ms QRS Dur : 092 ms QT Int : 386 ms P-R-T Axes : 073 -33 045 degrees QTc Int : 456 ms Normal sinus rhythm Left axis deviation Abnormal ECG When compared with ECG of 14-DEC-2023 08:03, No significant change was fo) Radiology Impression Discussion of test interpretation with radiology: I have reviewed the radiologist's reading. External Record Review External record reviewed: Inpatient record, Office record, Outpatient record, Prior outpatient labs, Prior outpatient radiology, Primary care record and Outside ED record Chronic Conditions Patient?s care impacted by: Hypertension, Cancer and Other Critical Care Time Critical Care Time Critical Care Time: Yes Total Critical Care Time: 35 Attestation: I attest to this time spent taking care of the patient, obtaining history, physical, reviewing labs, imaging, treatment of patients condition +/- specialist/hospitalist consult Discharge Plan Discharge Clinical Impression: Acute lower GI bleeding, Anemia Patient Disposition: Admitted As Inpatient Prescriptions: No Action albuterol sulfate [Ventolin HFA] 90 mcg/actuation HFA aerosol inhaler 1 puff PO Q6H PRN (Reason: shortness of breath or wheezing) 30 Days Qty: 8.5 3RF hydroxyzine HCl 50 mg tablet 50 mg PO BEDTIME Qty: 90 1RF fluticasone propionate 50 mcg/actuation spray,suspension 1 spray intranasal DAILY 30 Days Qty: 16 2RF pantoprazole 40 mg tablet,delayed release (DR/EC) 40 mg PO DAILY@0630 90 Days Qty: 90 0RF metoprolol succinate 50 mg tablet extended release 24 hr 50 mg PO DAILY Qty: 90 1RF tiotropium bromide [Spiriva with HandiHaler] 18 mcg capsule, w/inhalation device 1 cap inhalation DAILY Qty: 30 5RF oxycodone 5 mg tablet 5 mg PO Q6H PRN (Reason: pain) Qty: 30 0RF alosetron 0.5 mg tablet 1 mg PO DAILY@0900 solifenacin 10 mg tablet 10 mg PO DAILY@0900 cholecalciferol (vitamin D3) 50 mcg (2,000 unit) capsule 50 mcg PO DAILY@0900 Rx Instructions: 1 capsule Orally Once a day sucralfate [Carafate] 1 gram tablet 4 g PO DAILY@1200 nicotine (polacrilex) 4 mg Lozenge 4 mg BUCCAL Q8H PRN (Reason: Anxiety) Qty: 60 0RF diphenoxylate-atropine [Lomotil] 2.5-0.025 mg Tablet 1 tab PO DAILY PRN (Reason: Diarrhea) Qty: 30 0RF dexamethasone 4 mg tablet 4 mg PO WETH Rx Instructions: for chemo treatments clonazepam 0.5 mg Tablet 0.5 mg PO BID PRN (Reason: Anxiety) Qty: 60 0RF dextromethorphan-guaifenesin 10-100 mg/5 mL Syrup 10 ml PO TID PRN (Reason: cough) Qty: 237 0RF potassium chloride [K-Tab] 20 mEq Tablet Extended Release 20 meq PO DAILY Qty: 30 0RF ondansetron 8 mg Tablet,Disintegrating 8 mg PO Q8H PRN (Reason: Nausea And Vomiting) Qty: 30 3RF Pulmicort Flexhaler 180 mcg/actuation aerosol powdr breath activated 2 inh INHALATION BID loperamide 2 mg Capsule 2 mg PO Q6H PRN (Reason: Diarrhea) Qty: 14 0RF metoclopramide HCl 5 mg tablet 5 mg PO TIDAC hydrocortisone [Proctozone-HC] 2.5 % Cream With Perineal Applicator 1 appl ID BID Qty: 30 0RF magnesium 250 mg tablet 250 mg PO BID Qty: 180 0RF sodium chloride 1,000 mg tablet,soluble 1,000 mg PO BID Qty: 180 0RF sennosides-docusate sodium [Senexon-S] 8.6-50 mg tablet 1 tab PO BEDTIME mirtazapine 30 mg tablet 30 mg PO BEDTIME nicotine 14 mg/24 hr patch 24 hour 1 patch transdermal Q24H MDD smoking 28 Days Qty: 28 2RF Print Language: Latvian
--- NOTE | 2023-12-28 11:13 | ECG_ITS ---
Test Reason : gi bleed Blood Pressure : / mmHG Vent. Rate : 084 BPM Atrial Rate : 084 BPM P-R Int : 172 ms QRS Dur : 092 ms QT Int : 386 ms P-R-T Axes : 073 -33 045 degrees QTc Int : 456 ms Normal sinus rhythm Left axis deviation Abnormal ECG When compared with ECG of 14-DEC-2023 08:03, No significant change was found Referred By: Britany Doe Electronically Signed By:URIEL JONES
[2023-12-28 11:52] LABS: MANUAL DIFF FLAG NO
[2023-12-28 11:55] LABS: Basophils Percent Auto 0.8 % (0-2); Eosinophils Percent Auto 0.4 % (0-4); Hematocrit 31.7 % (37.0-47.0); Hemoglobin 10.7 g/dl (12.0-16.0); Imm Gran Abs Auto 0.05 X10*3/uL (0.00-0.03); Lymphocytes Absolute Auto 0.6 X10*3/uL (1.2-4.9); Lymphocytes Percent Auto 11.7 % (20-40); Mean Corpuscular HGB Conc 33.8 g/dl (31.0-35.0); Mean Corpuscular Volume 94.9 fL (80.0-98.0); Mean Platelet Volume 9.8 fL (9.4-12.3); Monocytes Absolute Auto 0.3 X10*3/uL (0.1-1.2); Monocytes Percent Auto 6.2 % (2-11); Neutrophils Absolute Auto 4.1 x10*3/uL (2.0-8.3); Neutrophils Percent Auto 79.9 % (45-73); Platelet Count 61 X10*3/uL (160-400); Red Blood Count 3.34 X10*6/uL (4.20-5.50); Red Cell Distribution Width 18.6 % (11.0-16.0); White Blood Count 5.1 X10*3/uL (4.8-10.8)
[2023-12-28 12:06] LABS: Prothrombin Time 11.5 SEC (10.9-12.4)
[2023-12-28 12:09] LABS: Partial Thromboplastin Time 28.1 SEC (26.0-36.8)
[2023-12-28 12:16] LABS: Alanine Aminotransferase 9 U/L (0-31); Albumin Level 4.5 g/dL (3.5-5.0); Alkaline Phosphatase 70 U/L (39-117); Anion Gap 13 (12-20); Aspartate Amino Transferase 16 U/L (5-31); Blood Urea Nitrogen 13 mg/dL (9-16); Calcium 9.6 mg/dL (8.4-10.2); Carbon Dioxide 26 mmol/L (22-29); Chloride 104 mmol/L (96-108); Creatinine Clr Calc Pharmacy 63.2; Estimated Glomerular Filt Rate > 60; Glucose Random 110 mg/dL (60-115); Magnesium 1.8 mg/dL (1.6-2.6); Potassium 4.1 mmol/L (3.3-5.1); Sodium 139 mmol/L (135-145); Total Protein 7.2 g/dL (6.5-8.0)
[2023-12-28 12:18] LABS: Troponin-I High Sensitivity < 2.7 ng/L (<3.5-17.0)
[2023-12-28 12:22] LABS: Bilirubin Total 0.4 mg/dL (0.0-1.0)
--- NOTE | 2023-12-28 13:00 | PC.NURSE ---
Pt presents to ED from home, reports blood in vomit since this morning and blood in stool for past couple of days, is having hard time describing it. Reports her doctor told her to come to ED for endoscopy. Pt is alert and oriented, breathing even and unlabored, skin pale. Pt is undergoing Chemo for lung cancer, last treatment 1 week ago. Port on left side of chest. Reports ABD pain, 10/10, generalized, burning and aching.
--- NOTE | 2023-12-28 14:10 | PC.NURSE ---
port on left chest accessed, power port
--- NOTE | 2023-12-28 14:28 | PM.GICN ---
History of Present Illness Data of Consult Service Date: 12/28/23 Primary Care Provider: Sarthak Person MD HPI Reason for consult: melena 63 yr old f w/ h/o COPD, metastatic small-cell lung cancer on carboplatin/etoposide with atezolizumab, SIADH, history of hepatitis-C, history of IV cocaine abuse, hypertension, hyperlipidemia, GERD, IBS, rectal prolapse here for assessment for abn stool she vomited overnight she noted blackstool, this morning she notes few months of chemo and noted burning epigastric pain, better w/ analgesia, no relation to food, no radiation, during this period she denies dysphagia denies nsaid use she has occ chills, poor appetite, weight has been going down she has been taking pantoprazole for years she had PET scan with increased uptake in antrum Review of Systems Review of Systems: Constitutional : No Weight loss, No Fever, No Chills ENT/Mouth : No sore throat, No Rhinorrhea Eyes: No Swelling, No Redness Cardiovascular : No Chest Pain, + SOB, No Edema Respiratory : + Cough, + Sputum, No Wheezing Gastrointestinal : see HPI Genitourinary : NO Dysuria, No Urinary Frequency, No Hematuria, No Urgency-- Musculoskeletal : no joint pain-, No Myalgias, No Joint Swelling Skin : No Skin Lesions, No rash Neuro : No Weakness, No Numbness, No Dizziness, No Headache Psych : No Anxiety/Panic, No Depression Heme/Lymph: No Bruising, No Lymphadenopathy Endocrine : No Polyuria, No Polydipsia All other systems reviewed and are negative. [facility] Past Medical History Medical History Small cell lung cancer COPD (chronic obstructive pulmonary disease) Small cell lung cancer (~08/2023) MDD (major depressive disorder), recurrent episode, moderate Abnormal CT scan, chest Mass of right lung Lung mass Bronchitis Rectal prolapse Nicotine dependence, cigarettes, uncomplicated Nonrheumatic mitral (valve) insufficiency Pulmonary nodule History of hepatitis C Osteopenia (~2011) IV drug user Endocarditis of mitral valve (~11/2017) Mitral valve prolapse Mitral regurgitation Early satiety Paresthesia of left leg Allergic rhinitis Facet arthritis of lumbar region Cervical spondylosis Vitamin D deficiency Pure hypercholesterolemia Benign essential hypertension GERD (gastroesophageal reflux disease) Anxiety Family History Family History Father Internal bleeding Mother Medical history unknown Surgical History Surgical History History of bronchoscopy (~2023) History of liver biopsy (~2009) History of partial colectomy (~2014) History of hysteroscopy (~2010) History of colonoscopy (~2017) Social History Social History Household Members: Children Housing: House Housing Other:: lives alone with her cat Malena Do you presently have visiting nurse or other home services: Yes (2 daughters assist with bringing meals) Alcohol intake: former Patient Tobacco Use Status: Current everyday Tobacco user Tobacco use type: Cigarette Cigarette Packs Per Day: 0.25 Cigarettes Per Day: 5 Years Smoked: 45 years (onset 15, 1/2-3/4ppd x 44yrs, 28pyh) Smoked in Last 30 Days: Yes e-Cigarette/Vaping Use: Never Used Second Hand Smoke Exposure: Yes Use of substances other than those prescribed or required for medical reasons: No Substance Use Type: Marijuana Advance Directives: Yes Advance Directives on File: Yes Advance Directives Date on File: 09/23/23 Patient : No service: No Current occupational status: unemployed Sexual orientation: Straight/Heterosexual Gender identity: Female Cognitive needs: No Hearing needs: No Vision needs: Yes Meds Allergies Allergy/AdvReac Type Severity Reaction Status Date / Time No Known Allergies Allergy Unknown unknown Verified 12/28/23 11:08 [NO KNOWN ALLERGIES] Home Medications ?Medication ?Instructions ?Recorded ?Confirmed ?Last Taken ?Type alosetron 0.5 mg tablet 1 mg PO DAILY@89907/22/23 12/27/23 12/27/23 03:00 History cholecalciferol (vitamin D3) 50 50 mcg PO DAILY@89907/22/23 12/27/23 12/27/23 03:00 History mcg (2,000 unit) capsule solifenacin 10 mg tablet 10 mg PO DAILY@89907/22/23 12/27/23 12/27/23 03:00 History sucralfate 1 gram tablet (Carafate) 4 g PO DAILY@1200 07/25/23 12/27/23 09/28/23 History budesonide 180 mcg/actuation 2 inh inhalation BID 09/28/23 12/27/23 12/27/23 03:00 History breath activated powder inhaler (Pulmicort Flexhaler) dexamethasone 4 mg tablet 4 mg PO WETH 10/21/23 12/27/23 Unknown History metoclopramide HCl 5 mg tablet 5 mg PO TIDAC 12/14/23 12/27/23 12/27/23 03:00 History mirtazapine 30 mg tablet 30 mg PO BEDTIME 12/27/23 12/27/23 Unknown History sennosides 8.6 mg-docusate sodium 1 tab PO BEDTIME 12/27/23 12/27/23 Unknown History 50 mg tablet (Senexon-S) aspirin 81 mg tablet,delayed 81 mg PO DAILY 12/28/23 Unknown History release Physical Exam Vital Signs: Vital Signs: Last Vital Signs Temp 98.4 F 12/28/23 11:07 Pulse 89 12/28/23 11:07 Resp 20 12/28/23 11:07 BP 97/63 12/28/23 11:07 Pulse Ox 99 12/28/23 11:07 O2 Del Method Nasal Cannula 12/28/23 11:07 Oxygen Flow Rate 2 12/28/23 11:07 BMI result Body Mass Index 20.9 EXAM: GENERAL: The patient is frail. VITAL SIGNS:see workflow HEENT: Nonicteric sclerae, PERRLA, EOMI. Oropharynx clear. Moist mucous membranes. Conjunctivae appear well perfused. No thyroid mass. CHEST: Chest wall is nontender. HEART: Regular rate and rhythm without murmurs. LUNGS: Clear to auscultation bilaterally. ABDOMEN: Soft, positive bowel sounds, tender epigastrium, no organomegaly.no flank tenderness SKIN: No rash, no excessive bruising, petechiae, or purpura. NEUROLOGIC: Cranial nerves II-XII intact without motor/sensory deficit. Psych: normal affect Results Labs 12/28/23 11:28 12/28/23 11:28 Labs: Short CBC 12/28/23 Range/Units 11:28 WBC 5.1 (4.8-10.8) X10*3/uL Hgb 10.7 L (12.0-16.0) g/dl Hct 31.7 L (37.0-47.0) % Plt Count 61 L (160-400) X10*3/uL BMP 12/28/23 11:28 Sodium 139 Potassium 4.1 Chloride 104 Carbon Dioxide 26 BUN 13 Creatinine 0.71 Calcium 9.6 Liver Function 12/28/23 Range/Units 11:28 Total Bilirubin 0.4 (0.0-1.0) mg/dL AST 16 (5-31) U/L ALT 9 (0-31) U/L Alkaline Phosphatase 70 (39-117) U/L Albumin 4.5 (3.5-5.0) g/dL Assessment and Plan (1) Complaint of melena: Status: Acute Plan 1/ Nausea, vomiting with melena, could be PUD vs metastatic disease, worsening by low plt count PLAN: 1/ allow clears 2/ IV PPI BID 3/ plan for EGD tomorrow, aim for plts >50 at least 4/ transfuse if HGB<7 g/dl 5/ avoid nsaid Procedures Date of Service Date of Service: 12/28/23
--- NOTE | 2023-12-28 14:30 | P.HPHOSP_ITS ---
History of Present Illness Date of Service: 12/28/23 Chief Complaint: Abd Pain, BRBPR A 63-year-old female with PMH of COPD on 2L, metastatic small-cell lung cancer on Chemo, SIADH, GERD, IBS, rectal prolapse, chronic iron-deficiency anemia, internal hemorrhoids who presents to the ED for evaluation of BRBPR and abdominal pain. The patient was evaluated recent admission with colonoscopy showing evidence of internal hemorrhoids. she was in ED yesterday for the same problem and received Platlets and went home afterward. Today she is back because she felt sick to her stomach with incident of vomiting of yellowish material with no blood. had black bowel movement afterward and got concerned so she came to ED for eval. PLT around 60 from 31 yesterday, Hb stable >10. +ve occult stool for many years now. GI and Oncology were consulted and recommended admission for EGD. Review of Systems 2 Review of Systems: No fever, chills or weakness No chest pain, palpitation No shortness of breath or coughing mild abdominal pain, reported nausea or vomiting No urinary symptoms No any rash or wounds PMFSH Medical History Small cell lung cancer COPD (chronic obstructive pulmonary disease) Small cell lung cancer (~08/2023) MDD (major depressive disorder), recurrent episode, moderate Abnormal CT scan, chest Mass of right lung Lung mass Bronchitis Rectal prolapse Nicotine dependence, cigarettes, uncomplicated Nonrheumatic mitral (valve) insufficiency Pulmonary nodule History of hepatitis C Osteopenia (~2011) IV drug user Endocarditis of mitral valve (~11/2017) Mitral valve prolapse Mitral regurgitation Early satiety Paresthesia of left leg Allergic rhinitis Facet arthritis of lumbar region Cervical spondylosis Vitamin D deficiency Pure hypercholesterolemia Benign essential hypertension GERD (gastroesophageal reflux disease) Anxiety Family History Father Internal bleeding Mother Medical history unknown Surgical History History of bronchoscopy (~2023) History of liver biopsy (~2009) History of partial colectomy (~2014) History of hysteroscopy (~2010) History of colonoscopy (~2017) Social History Household Members: Children Housing: House Housing Other:: lives alone with her cat Malena Do you presently have visiting nurse or other home services: Yes (2 daughters assist with bringing meals) Alcohol intake: former Patient Tobacco Use Status: Current everyday Tobacco user Tobacco use type: Cigarette Cigarette Packs Per Day: 0.25 Cigarettes Per Day: 5 Years Smoked: 45 years (onset 15, 1/2-3/4ppd x 45yrs, 28pyh) Smoked in Last 30 Days: Yes e-Cigarette/Vaping Use: Never Used Second Hand Smoke Exposure: Yes Use of substances other than those prescribed or required for medical reasons: No Substance Use Type: Marijuana Advance Directives: Yes Advance Directives on File: Yes Advance Directives Date on File: 09/23/23 Patient : No service: No Current occupational status: unemployed Sexual orientation: Straight/Heterosexual Gender identity: Female Cognitive needs: No Hearing needs: No Vision needs: Yes Meds Allergies Allergy/AdvReac Type Severity Reaction Status Date / Time No Known Allergies Allergy Unknown unknown Verified 12/28/23 11:08 [NO KNOWN ALLERGIES] Home Medications ?Medication ?Instructions ?Recorded ?Confirmed ?Last Taken ?Type alosetron 0.5 mg tablet 1 mg PO DAILY@89907/22/23 12/27/23 12/27/23 03:00 History cholecalciferol (vitamin D3) 50 50 mcg PO DAILY@89907/22/23 12/27/23 12/27/23 03:00 History mcg (2,000 unit) capsule solifenacin 10 mg tablet 10 mg PO DAILY@89907/22/23 12/27/23 12/27/23 03:00 History sucralfate 1 gram tablet (Carafate) 4 g PO DAILY@1200 07/25/23 12/27/23 09/28/23 History budesonide 180 mcg/actuation 2 inh inhalation BID 09/28/23 12/27/23 12/27/23 03:00 History breath activated powder inhaler (Pulmicort Flexhaler) dexamethasone 4 mg tablet 4 mg PO WETH 10/21/23 12/27/23 Unknown History metoclopramide HCl 5 mg tablet 5 mg PO TIDAC 12/14/23 12/27/23 12/27/23 03:00 History mirtazapine 30 mg tablet 30 mg PO BEDTIME 12/27/23 12/27/23 Unknown History sennosides 8.6 mg-docusate sodium 1 tab PO BEDTIME 12/27/23 12/27/23 Unknown History 50 mg tablet (Senexon-S) aspirin 81 mg tablet,delayed 81 mg PO DAILY 12/28/23 Unknown History release Physical Exam 2 Vital Signs and Narrative: Vital Signs: Last Vital Signs Temp 98.4 F 12/28/23 11:07 Pulse 89 12/28/23 11:07 Resp 20 12/28/23 11:07 BP 97/63 12/28/23 11:07 Pulse Ox 99 12/28/23 11:07 O2 Del Method Nasal Cannula 12/28/23 11:07 Oxygen Flow Rate 2 12/28/23 11:07 BMI result Body Mass Index 20.9 Const: Other: Constitutional : interactive, not in distress Cardiovascular : no JVP, no lower extremity edema Respiratory : bilateral chest movement, not in resp distress Gastrointestinal: soft, lax, Non tender Skin : Warm, Dry Neurological : Alert & oriented , No focal deficit Results Labs 12/28/23 11:28 12/28/23 11:28 Labs: Laboratory Results - last 24 hr 12/28/23 11:28 MCV 94.9 MCH 32.0 MCHC 33.8 RDW 18.6 H Plt Count 61 L MPV 9.8 Immature Gran % (Auto) 1.0 H Neut % (Auto) 79.9 H Lymph % (Auto) 11.7 L [place] % (Auto) 6.2 Eos % (Auto) 0.4 Baso % (Auto) 0.8 Lymph # (Auto) 0.6 L [place] # (Auto) 0.3 Eos # (Auto) 0.0 Baso # (Auto) 0.0 Abs Immat Gran (auto) 0.05 H Absolute Neuts (auto) 4.1 Absolute Nucleated RBC 0.000 Nucleated RBC % (auto) 0.0 PT 11.5 INR 1.0 APTT 28.1 Anion Gap 13 Estim Creat Clear Calc 63.2 Estimated GFR > 60 Random Glucose 110 Calcium 9.6 Magnesium 1.8 Total Bilirubin 0.4 AST 16 ALT 9 Alkaline Phosphatase 70 Troponin I High Sens < 2.7 Total Protein 7.2 Albumin 4.5 Blood Type B Positive Antibody Screen NEGATIVE Assessment and Plan (1) Complaint of melena: Status: Acute Plan A 63-year-old female with PMH of COPD on 2L, metastatic small-cell lung cancer on Chemo, SIADH, GERD, IBS, rectal prolapse, chronic iron-deficiency anemia, internal hemorrhoids who presents to the ED for evaluation of BRBPR and abdominal pain. Abdominal pain with vomiting and melena suspected upper GIB no drop in Hb start Pantoprazole IV NPO aftermidnight EGD by GI consult for GI and Oncology in place follow H&H Thrombocytopenia improved after 1 unit trx in ED on 12/26 monitor cbc Small-cell lung cancer Follow up Oncology for chemo Oxycodone for pain mgmt COPD Continue inhalers Hypertension Losartan, metoprolol GERD PPI PENDING MED REC DVT prophylaxis SCDs for low PLT Quality Stroke Does the patient have a stroke diagnosis?: No VTE Prior VTE?: No VTE Risk Level:: Medical - moderate - high VTE Device Contraindication: N/A - Device Ordered VTE Drug Contraindication: Treatment Not Indicated
[2023-12-28] MEDS: oxyCODONE HCl Immed Release 5 MG TABLET PO ×2 (14:51→21:19)
--- NOTE | 2023-12-28 15:06 | PHA.MEDREC ---
Addendum entered by Jennifer Aviles RPh 12/28/23 15:13: reviewed by [facility]. Original Note: Pharmacy Consult ? Medication Reconciliation Pharmacy has completed the medication reconciliation. Spoke to patient to confirm med list. Patient states she is no taking Aspirin 81 mg , dextromethorphan-guaifenesin 10 ml. Patient sates she only takes Mirtazapine 15 mg at bedtime.
[2023-12-28] MEDS: Nicotine 14 MG PATCH.TD24 TRANSDERMA (15:50)
[2023-12-28] MEDS: Metoclopramide HCl 5 MG TABLET PO (15:51)
[2023-12-28] MEDS: Pantoprazole Sodium 40 MG/10 ML VIAL IVPUSH (15:51)
[2023-12-28] MEDS: 0.9 % Sodium Chloride Flush 3 ML SYRINGE IVFLUSH (15:52)
[2023-12-28 17:12] VITALS: BP 123/65; PULSE 66; RESP 18; TEMP 36.9; O2SAT 100
[2023-12-28 19:06] VITALS: PULSE 66; RESP 18; O2SAT 93
[2023-12-28] MEDS: Budesonide 180 MCG AER.POW.BA 2 PUFF INHALE (19:06)
--- NOTE | 2023-12-28 19:30 | PC.NURSE ---
Assumed care of pt. Pt lying on stretcher, no acute distress at this time.
--- NOTE | 2023-12-28 20:33 | MHC.EDTECH ---
pt ambulated to bathroom and back to bed with 1 assist. pt had a steady gait. RN made aware
[2023-12-28] MEDS: Mirtazapine 15 MG TABLET PO (21:16)
[2023-12-28] MEDS: hydrOXYzine HCL 50 MG TABLET PO (21:16)
[2023-12-28] MEDS: Sodium Chloride Tab 1 GM TABLET PO (21:19)
[2023-12-29] MEDS: 0.9 % Sodium Chloride Flush 3 ML SYRINGE IVFLUSH ×2 (01:03→08:26)
[2023-12-29] MEDS: ondansetron HCL 4 MG/2 ML VIAL IVPUSH (04:28)
[2023-12-29] MEDS: oxyCODONE HCl Immed Release 5 MG TABLET PO ×2 (04:28→11:19)
[2023-12-29] MEDS: Loperamide HCl 2 MG CAPSULE PO (04:42)
[2023-12-29 04:52] LABS: Hematocrit 32.4 % (37.0-47.0); Hemoglobin 10.7 g/dl (12.0-16.0); Mean Corpuscular Hemoglobin 31.6 pg (27.0-33.0); Mean Corpuscular Volume 95.6 fL (80.0-98.0); Mean Platelet Volume 9.5 fL (9.4-12.3); Red Blood Count 3.39 X10*6/uL (4.20-5.50); Red Cell Distribution Width 18.6 % (11.0-16.0)
[2023-12-29 04:53] LABS: Platelet Count 59 X10*3/uL (160-400)
[2023-12-29 05:24] LABS: Anion Gap 16 (12-20); Blood Urea Nitrogen 13 mg/dL (9-16); Calcium 9.6 mg/dL (8.4-10.2); Carbon Dioxide 21 mmol/L (22-29); Chloride 105 mmol/L (96-108); Estimated Glomerular Filt Rate > 60; Glucose Random 108 mg/dL (60-115); Potassium 4.8 mmol/L (3.3-5.1); Sodium 137 mmol/L (135-145)
[2023-12-29 06:08] VITALS: BP 112/62; PULSE 61; RESP 17; TEMP 36.6; O2SAT 100
[2023-12-29] MEDS: Pantoprazole Sodium 40 MG/10 ML VIAL IVPUSH (06:18)
[2023-12-29] MEDS: Budesonide 180 MCG AER.POW.BA 2 PUFF INHALE (07:45)
[2023-12-29 07:47] VITALS: PULSE 69; RESP 16; O2SAT 98
[2023-12-29] MEDS: Metoprolol Succinate ER 50 MG TAB.ER.24H PO (08:26)
[2023-12-29] MEDS: Potassium Chloride ER 20 MEQ TAB.ER.PRT PO (08:26)
[2023-12-29] MEDS: Cholecalciferol (Vitamin D3) 25 MCG TABLET 50 MCG PO (08:26)
[2023-12-29] MEDS: Metoclopramide HCl 5 MG TABLET PO (08:26)
[2023-12-29] MEDS: Tolterodine Tartrate LA 4 MG CAP.ER.24H PO (08:51)
[2023-12-29] MEDS: Tiotropium Bromide 2.5 mcg 1 PUFF/2.5 MCG MIST.INHAL 2 PUFF INHALE (08:51)
[2023-12-29] MEDS: Hydrocortisone 2.5 % Rectal Cr 30 GM TUBE 1 APPL PR (08:51)
[2023-12-29] MEDS: Fluticasone Propionate Nasal 16 GM SPRAY 1 SPRAY NOSTRIL-B (08:51)
--- NOTE | 2023-12-29 10:47 | MHC.CM.PN ---
CM met with Patient at bedside, in the ED and addressed REY with her(original was given to Patient and a copy will be placed on the chart). Patient lives alone on the second floor of a 2 family house, with her Daughter/HCP/Cera living on the first floor. Patient's O2 is supplied by [employer] and she required no services nor DME [employer]. Home self care is the goal and CM has initiated and will follow for dc planning. PCP is Dr. Sarthak Person and Patient may require assist with transport to home.
--- NOTE | 2023-12-29 10:55 | PC.NURSE ---
report given to JAILENE Domínguez in short stay at this time. ETA for endoscopy is 1200. pt notified/aware of plan of care.
[2023-12-29] MEDS: Sodium Chloride Tab 1 GM TABLET PO (10:56)
--- NOTE | 2023-12-29 11:40 | P.PNIM_ITS ---
Subjective Subjective Date of Service: 12/29/23 Interval History: no new stools Physical Exam 2 Vital Signs: Vital Signs: Last Vital Signs Temp 97.9 F 12/29/23 06:08 Pulse 69 12/29/23 07:47 Resp 16 12/29/23 07:47 BP 112/62 12/29/23 06:08 Pulse Ox 100 12/29/23 06:08 O2 Del Method Nasal Cannula 12/29/23 06:08 O2 Flow Rate 2 12/29/23 06:08 Oxygen Flow Rate 2 12/28/23 11:07 BMI result Body Mass Index 20.9 EXAM: GENERAL: The patient is frail. VITAL SIGNS:see workflow HEENT: Nonicteric sclerae, PERRLA, EOMI. Oropharynx clear. Moist mucous membranes. Conjunctivae appear well perfused. No thyroid mass. CHEST: Chest wall is nontender. HEART: Regular rate and rhythm without murmurs. LUNGS: Clear to auscultation bilaterally. ABDOMEN: Soft, positive bowel sounds, tender epigastrium, no organomegaly.no flank tenderness SKIN: No rash, no excessive bruising, petechiae, or purpura. NEUROLOGIC: Cranial nerves II-XII intact without motor/sensory deficit. Psych: normal affect Objective Data Active Medications Acetaminophen (Acetaminophen 325 Mg Tablet) 650 mg PO Q6H PRN PRN Reason: Pain, Mild (Pain Scale 1-3), fever or headache Albuterol Sulfate (Albuterol Sulfate 90 Mcg 8 Gm Inhaler) 1 puff INHALE Q6H PRN PRN Reason: shortness of breath or wheezing Budesonide (Budesonide 180 Mcg Aer.Pow.Ba) 2 puff INHALE BID [facility] Last Admin: 12/29/23 07:45 Dose: 2 puff Documented By: LUCIUS Calcium Carbonate (Calcium Carbonate 750 Mg Tab.Chew) 750 mg PO Q4H PRN PRN Reason: Heartburn Clonazepam (Clonazepam 0.5 Mg Tablet) 0.5 mg PO BID PRN PRN Reason: Anxiety Diphenoxylate HCl/Atropine (Diphenoxylate/Atrop 2.5/0.025 Tablet) 1 tab PO DAILY PRN PRN Reason: Diarrhea Fluticasone Propionate (Fluticasone Propionate Nasal 16 Gm [place]) 1 spray NOSTRIL-B DAILY [facility] Last Admin: 12/29/23 08:51 Dose: 1 spray Documented By: MYRNA Hydrocortisone (Hydrocortisone 2.5 % Rectal Cr 30 Gm Tube) 1 appl DE BID [facility] Last Admin: 12/29/23 08:51 Dose: 1 appl Documented By: MYRNA Hydroxyzine HCl (Hydroxyzine Hcl 50 Mg Tablet) 50 mg PO BEDTIME [facility] Last Admin: 12/28/23 21:16 Dose: 50 mg Documented By: BABITA Loperamide HCl (Loperamide Hcl 2 Mg Capsule) 2 mg PO Q6H PRN PRN Reason: Diarrhea Last Admin: 12/29/23 04:42 Dose: 2 mg Documented By: BABITA Magnesium Hydroxide (Milk Of Magnesia 30 Ml Oral.Susp) 30 ml PO DAILY PRN PRN Reason: Constipation Melatonin (Melatonin 3 Mg Tablet) 6 mg PO BEDTIME PRN PRN Reason: Insomnia Metoclopramide HCl (Metoclopramide Hcl 5 Mg Tablet) 5 mg PO TIDAC [facility] Last Admin: 12/29/23 08:26 Dose: 5 mg Documented By: MYRNA Metoprolol Succinate (Metoprolol Succinate Er 50 Mg Tab.Er.24h) 50 mg PO DAILY [facility]; Protocol Last Admin: 12/29/23 08:26 Dose: 50 mg Documented By: MYRNA Mirtazapine (Mirtazapine 15 Mg Tablet) 15 mg PO BEDTIME [facility] Last Admin: 12/28/23 21:16 Dose: 15 mg Documented By: BABITA Nicotine (Nicotine 14 Mg Patch.Td24) 14 mg TRANSDERMA Q24H [facility] Last Admin: 12/28/23 15:50 Dose: 14 mg Documented By: KEKE Nicotine Polacrilex (Nicotine Polacrilex Lozenge 4 Mg Lozenge) 4 mg BUCCAL Q8H PRN PRN Reason: Anxiety Ondansetron HCl (Ondansetron Hcl 4 Mg/2 Ml Vial) 4 mg IVPUSH Q8H PRN PRN Reason: Nausea and Vomiting Last Admin: 12/29/23 04:28 Dose: 4 mg Documented By: BABITA Oxycodone HCl (Oxycodone Hcl Immed Release 5 Mg Tablet) 5 mg PO Q4H PRN PRN Reason: Pain, Severe (Pain Scale 7-10) Last Admin: 12/29/23 11:19 Dose: 5 mg Documented By: JARET Pantoprazole Sodium (Pantoprazole Sodium 40 Mg/10 Ml Vial) 40 mg IVPUSH BID@0630,1630 [facility] Last Admin: 12/29/23 06:18 Dose: 40 mg Documented By: BABITA Potassium Chloride (Potassium Chloride Er 20 Meq Tab.Er.Prt) 20 meq PO DAILY [facility] Last Admin: 12/29/23 08:26 Dose: 20 meq Documented By: MYRNA Senna/Docusate Sodium (Sennosides/Docusate Sodium Tablet) 1 tab PO BEDTIME PRN PRN Reason: Constipation Sodium Chloride (0.9 % Sodium Chloride Flush 3 Ml Syringe) 3 ml IVFLUSH QSHIFT [facility] Last Admin: 12/29/23 08:26 Dose: 3 ml Documented By: MYRNA Sodium Chloride (Sodium Chloride Tab 1 Gm Tablet) 1 gm PO BID [facility] Last Admin: 12/29/23 10:56 Dose: 1 gm Documented By: MYRNA Sucralfate (Sucralfate 1 Gm Tablet) 4 gm PO DAILY@1200 [facility] Tiotropium Urich (Tiotropium Urich 2.5 Mcg 1 Puff/2.5 Mcg Mist.Inhal) 2 puff INHALE RDAILY [facility] Last Admin: 12/29/23 08:51 Dose: 2 puff Documented By: MYRNA Tolterodine Tartrate (Tolterodine Tartrate La 4 Mg Cap.Er.24h) 4 mg PO DAILY@0900 [facility] Last Admin: 12/29/23 08:51 Dose: 4 mg Documented By: MYRNA Vitamin D (Cholecalciferol (Vitamin D3) 25 Mcg Tablet) 50 mcg PO DAILY@0900 [facility] Last Admin: 12/29/23 08:26 Dose: 50 mcg Documented By: MYRNA Labs 12/29/23 04:38 12/29/23 04:38 Labs: Laboratory Results - last 24 hr 12/28/23 12/29/23 11:28 04:38 MCV 94.9 95.6 MCH 32.0 31.6 MCHC 33.8 33.0 RDW 18.6 H 18.6 H Plt Count 61 L 59 L MPV 9.8 9.5 Immature Gran % (Auto) 1.0 H Neut % (Auto) 79.9 H Lymph % (Auto) 11.7 L [place] % (Auto) 6.2 Eos % (Auto) 0.4 Baso % (Auto) 0.8 Lymph # (Auto) 0.6 L [place] # (Auto) 0.3 Eos # (Auto) 0.0 Baso # (Auto) 0.0 Abs Immat Gran (auto) 0.05 H Absolute Neuts (auto) 4.1 Absolute Nucleated RBC 0.000 0.000 Nucleated RBC % (auto) 0.0 0.0 PT 11.5 INR 1.0 APTT 28.1 Anion Gap 13 16 Estim Creat Clear Calc 63.2 66.0 Estimated GFR > 60 > 60 Random Glucose 110 108 Calcium 9.6 9.6 Magnesium 1.8 Total Bilirubin 0.4 AST 16 ALT 9 Alkaline Phosphatase 70 Troponin I High Sens < 2.7 Total Protein 7.2 Albumin 4.5 Blood Type B Positive Antibody Screen NEGATIVE Crossmatch (AHG) See Detail Assessment and Plan (1) Complaint of melena: Status: Acute Plan 63F PMH chronic hypoxic respiratory failure due to COPD and metastatic small- cell lung cancer on chemotherapy, SIADH, GERD, IBS, rectal prolapse, chronic iron deficiency anemia, internal hemorrhoids who presented with bright red blood per rectum and melena, abdominal pain and nausea and vomiting Acute GI bleed Continue IV ppi, plan for EGD today Monitor CBC Chronic thrombocytopenia Due to chemotherapy, received 1 unit platelets in ED on 12/26, monitor Metastatic small-cell lung cancer Outpatient follow up with Oncology Chronic hypoxic respiratory failure due to COPD Continue inhalers Hypertension Continue metoprolol DVT prophylaxis-mechanical due to GI bleed Full code reason for continued hospitalization: Working up GI bleed Quality Stroke Does the patient have a stroke diagnosis?: No VTE Prior VTE?: No VTE Risk Level:: Medical - moderate - high VTE Device Contraindication: N/A - Device Ordered VTE Drug Contraindication: Treatment Not Indicated
[2023-12-29] MEDS: clonazePAM 0.5 MG TABLET PO (11:53)
--- NOTE | 2023-12-29 11:53 | PC.NURSE ---
pt verbalizes increase in anxiety - prn medication utilized. effectiveness pending.
--- NOTE | 2023-12-29 12:18 | PM.HEMONCCN ---
Subjective - Subjective Chief complaint: Consult for: Small-cell lung carcinoma. GI bleed. Anemia. Patient: known to practice within the last 3 years Consult date: 12/29/23 Requesting Physician: Pacheco. Primary Care Provider: Sarthak Person MD Family Provider: Raza. Medical Summary: DIAGNOSIS: ANEMIA. THROMBOCYTOPENIA GI BLEEDING. SMALL-CELL LUNG CARCINOMA. HPI - Consult Narrative Reason for consult: Consult for: 1. GI bleed. 2. Small-cell carcinoma of the lung. Narrative: Sarah Medina is a 63 year old lady, admitted to the hospital yesterday due to concern for GI bleeding. She has a history of metastatic small-cell lung cancer on Chemotherapy, She presented to the ED for evaluation of BRBPR and abdominal pain. The patient was evaluated recent admission with colonoscopy showing evidence of internal hemorrhoids. She was in ED on 12/26 for the same problem and received Platelets and went home. Today she is back because she felt sick to her stomach with incident of vomiting of yellowish material with no blood. had black bowel movement afterward and got concerned so she came to ED for eval. PLT around 60 from 31 12/26, Hb stable >10. +ve occult stool for many years now. She had a PET scan at [facility] on 12/23 which revealed: New line significant interval improvement in metabolic activity with mild residual activity within precarinal and right hilar nodes. Persistent metabolic activity along the antral portion of the stomach. Consider upper endoscopy for further evaluation. GI recommended admission for EGD, for upper endoscopy. [facility] Medical History: SIADH, GERD, IBS, rectal prolapse, chronic iron-deficiency anemia, internal hemorrhoids Small cell lung cancer COPD (chronic obstructive pulmonary disease) Small cell lung cancer (~08/2023) MDD (major depressive disorder), recurrent episode, moderate Abnormal CT scan, chest Mass of right lung Lung mass Bronchitis Rectal prolapse Nicotine dependence, cigarettes, uncomplicated Nonrheumatic mitral (valve) insufficiency Pulmonary nodule History of hepatitis C Osteopenia (~2011) IV drug user Endocarditis of mitral valve (~11/2017) Mitral valve prolapse Mitral regurgitation Review of Systems Review of Systems: No fever, chills or weakness No chest pain, palpitation No shortness of breath or coughing mild abdominal pain, reported nausea or vomiting No urinary symptoms No any rash or wounds [facility] Medical History: Medical History (Last Reviewed 12/29/23 @ 12:55 by Sarah Kelley RN) Abnormal CT scan, chest Allergic rhinitis Anxiety Benign essential hypertension Bronchitis Cervical spondylosis COPD (chronic obstructive pulmonary disease) Early satiety Endocarditis of mitral valve Onset Date: ~11/2017 Facet arthritis of lumbar region GERD (gastroesophageal reflux disease) History of hepatitis C IV drug user Lung mass Mass of right lung MDD (major depressive disorder), recurrent episode, moderate Mitral regurgitation Mitral valve prolapse Nicotine dependence, cigarettes, uncomplicated Nonrheumatic mitral (valve) insufficiency Osteopenia Onset Date: ~2011 Paresthesia of left leg Pulmonary nodule Pure hypercholesterolemia Rectal prolapse Small cell lung cancer Onset Date: ~08/2023 Small cell lung cancer Vitamin D deficiency Family History: Family History (Last Reviewed 12/28/23 @ 14:37 by Jovanni Bergman MD) Father Internal bleeding Mother Medical history unknown Surgical History: Surgical History (Last Reviewed 12/29/23 @ 12:55 by Sarah Kelley RN) History of bronchoscopy Onset Date: ~2023 History of colonoscopy Onset Date: ~2017 History of hysteroscopy Onset Date: ~2010 History of liver biopsy Onset Date: ~2009 History of partial colectomy Onset Date: ~2014 Social History: Social History (Last Reviewed 12/28/23 @ 14:37 by Jovanni Bergman MD) Living Situation History: Household Members: Children Housing: House Housing Other:: lives alone with her cat Malena Are you a primary home care physical therapist to a significant other at home: No Do you presently have visiting nurse or other home services: Yes Do you presently have visiting nurse or other home services comment: [facility] HOME ON FOR POSS [facility] Tobacco History: Patient Tobacco Use Status: Current everyday Tobacco Tobacco use type: Cigarette Cigarette Packs Per Day: 5 Cigarettes Per Day: 100.0 Years Smoked: 45 years (onset 15, 1/2-3/4ppd x 44yrs, 28pyh) e-Cigarette/Vaping Use: Never Used Second Hand Smoke Exposure: Yes Substance Use History: Substance Use Type: Marijuana Advance Directives: Advance Directives Date on File: 09/23/23 Occupation Assessmet: service: No Current occupational status: unemployed Sex/Gender Assessment: Sexual orientation: Straight/Heterosexual Gender identity: Female Home Medications and Allergies Current Medications: Current Medications Acetaminophen (Acetaminophen 325 Mg Tablet) 650 mg PO Q6H PRN PRN Reason: Pain, Mild (Pain Scale 1-3), fever or headache Albuterol Sulfate (Albuterol Sulfate 90 Mcg 8 Gm Inhaler) 1 puff INHALE Q6H PRN PRN Reason: shortness of breath or wheezing Budesonide (Budesonide 180 Mcg Aer.Pow.Ba) 2 puff INHALE BID REPLACED BY [facility] Last Admin: 12/29/23 07:45 Dose: 2 puff Calcium Carbonate (Calcium Carbonate 750 Mg Tab.Chew) 750 mg PO Q4H PRN PRN Reason: Heartburn Clonazepam (Clonazepam 0.5 Mg Tablet) 0.5 mg PO BID PRN PRN Reason: Anxiety Last Admin: 12/29/23 11:53 Dose: 0.5 mg Diphenoxylate HCl/Atropine (Diphenoxylate/Atrop 2.5/0.025 Tablet) 1 tab PO DAILY PRN PRN Reason: Diarrhea Fluticasone Propionate (Fluticasone Propionate Nasal 16 Gm [place]) 1 spray NOSTRIL-B DAILY REPLACED BY [facility] Last Admin: 12/29/23 08:51 Dose: 1 spray Hydrocortisone (Hydrocortisone 2.5 % Rectal Cr 30 Gm Tube) 1 appl [place] BID REPLACED BY [facility] Last Admin: 12/29/23 08:51 Dose: 1 appl Hydroxyzine HCl (Hydroxyzine Hcl 50 Mg Tablet) 50 mg PO BEDTIME REPLACED BY [facility] Last Admin: 12/28/23 21:16 Dose: 50 mg Loperamide HCl (Loperamide Hcl 2 Mg Capsule) 2 mg PO Q6H PRN PRN Reason: Diarrhea Last Admin: 12/29/23 04:42 Dose: 2 mg Magnesium Hydroxide (Milk Of Magnesia 30 Ml Oral.Susp) 30 ml PO DAILY PRN PRN Reason: Constipation Melatonin (Melatonin 3 Mg Tablet) 6 mg PO BEDTIME PRN PRN Reason: Insomnia Metoclopramide HCl (Metoclopramide Hcl 5 Mg Tablet) 5 mg PO TIDAC REPLACED BY [facility] Last Admin: 12/29/23 08:26 Dose: 5 mg Metoprolol Succinate (Metoprolol Succinate Er 50 Mg Tab.Er.24h) 50 mg PO DAILY REPLACED BY [facility]; Protocol Last Admin: 12/29/23 08:26 Dose: 50 mg Mirtazapine (Mirtazapine 15 Mg Tablet) 15 mg PO BEDTIME REPLACED BY [facility] Last Admin: 12/28/23 21:16 Dose: 15 mg Nicotine (Nicotine 14 Mg Patch.Td24) 14 mg TRANSDERMA Q24H REPLACED BY [facility] Last Admin: 12/28/23 15:50 Dose: 14 mg Nicotine Polacrilex (Nicotine Polacrilex Lozenge 4 Mg Lozenge) 4 mg BUCCAL Q8H PRN PRN Reason: Anxiety Ondansetron HCl (Ondansetron Hcl 4 Mg/2 Ml Vial) 4 mg IVPUSH Q8H PRN PRN Reason: Nausea and Vomiting Last Admin: 12/29/23 04:28 Dose: 4 mg Oxycodone HCl (Oxycodone Hcl Immed Release 5 Mg Tablet) 5 mg PO Q4H PRN PRN Reason: Pain, Severe (Pain Scale 7-10) Last Admin: 12/29/23 11:19 Dose: 5 mg Pantoprazole Sodium (Pantoprazole Sodium 40 Mg/10 Ml Vial) 40 mg IVPUSH BID@0630,1630 REPLACED BY [facility] Last Admin: 12/29/23 06:18 Dose: 40 mg Potassium Chloride (Potassium Chloride Er 20 Meq Tab.Er.Prt) 20 meq PO DAILY REPLACED BY [facility] Last Admin: 12/29/23 08:26 Dose: 20 meq Senna/Docusate Sodium (Sennosides/Docusate Sodium Tablet) 1 tab PO BEDTIME PRN PRN Reason: Constipation Sodium Chloride (0.9 % Sodium Chloride Flush 3 Ml Syringe) 3 ml IVFLUSH QSHIFT REPLACED BY [facility] Last Admin: 12/29/23 08:26 Dose: 3 ml Sodium Chloride (Sodium Chloride Tab 1 Gm Tablet) 1 gm PO BID REPLACED BY [facility] Last Admin: 12/29/23 10:56 Dose: 1 gm Sucralfate (Sucralfate 1 Gm Tablet) 4 gm PO DAILY@1200 REPLACED BY [facility] Tiotropium [place] (Tiotropium [place] 2.5 Mcg 1 Puff/2.5 Mcg Mist.Inhal) 2 puff INHALE RDAILY REPLACED BY [facility] Last Admin: 12/29/23 08:51 Dose: 2 puff Tolterodine Tartrate (Tolterodine Tartrate [place] 4 Mg Cap.Er.24h) 4 mg PO DAILY@0900 REPLACED BY [facility] Last Admin: 12/29/23 08:51 Dose: 4 mg Vitamin D (Cholecalciferol (Vitamin D3) 25 Mcg Tablet) 50 mcg PO DAILY@0900 REPLACED BY [facility] Last Admin: 12/29/23 08:26 Dose: 50 mcg Home Medications ?Medication ?Instructions ?Recorded ?Confirmed ?Type alosetron 0.5 mg tablet 1 mg PO DAILY@89907/22/23 12/28/23 History cholecalciferol (vitamin D3) 50 50 mcg PO DAILY@89907/22/23 12/28/23 History mcg (2,000 unit) capsule solifenacin 10 mg tablet 10 mg PO DAILY@89907/22/23 12/28/23 History sucralfate 1 gram tablet (Carafate) 4 g PO DAILY@1200 07/25/23 12/28/23 History budesonide 180 mcg/actuation 2 inh inhalation BID 09/28/23 12/28/23 History breath activated powder inhaler (Pulmicort Flexhaler) dexamethasone 4 mg tablet 4 mg PO WETH 10/21/23 12/28/23 History metoclopramide HCl 5 mg tablet 5 mg PO TIDAC 12/14/23 12/28/23 History mirtazapine 30 mg tablet 15 mg PO BEDTIME 12/27/23 12/28/23 History sennosides 8.6 mg-docusate sodium 1 tab PO BEDTIME PRN Constipation 12/27/23 12/28/23 History 50 mg tablet (Senexon-S) Allergies Allergy/AdvReac Type Severity Reaction Status Date / Time No Known Allergies Allergy Unknown unknown Verified 12/28/23 11:08 [NO KNOWN ALLERGIES] Physical Exam Vital signs: Vital Signs Temp 97.9 F 12/29/23 06:08 Pulse 69 12/29/23 07:47 Resp 16 12/29/23 07:47 BP 112/62 12/29/23 06:08 Pulse Ox 100 12/29/23 06:08 O2 Del Method Nasal Cannula 12/29/23 06:08 O2 Flow Rate 2 12/29/23 06:08 Intake & Output 12/28/23 12/29/23 12/29/23 18:59 06:59 18:59 Intake Total 0 / 0 Balance 0 / 0 Intake: Intake, Oral Amount 0 / 0 Other: NPO Yes Number of Unmeasured Voids 1 1 Urine Bathroom Bathroom Weight 51.8 kg Weight 51.8 kg Hem/Onc Consult Result - Labs CBC & Chem 7: 12/29/23 04:38 12/29/23 04:38 Labs: Short CBC 12/29/23 Range/Units 04:38 WBC 4.0 L (4.8-10.8) X10*3/uL Hgb 10.7 L (12.0-16.0) g/dl Hct 32.4 L (37.0-47.0) % Plt Count 59 L (160-400) X10*3/uL BMP 12/29/23 04:38 Sodium 137 Potassium 4.8 Chloride 105 Carbon Dioxide 21 L BUN 13 Creatinine 0.68 Calcium 9.6 Liver Function 12/28/23 Range/Units 11:28 Total Bilirubin 0.4 (0.0-1.0) mg/dL Assessment and Plan Patient Active problem list reviewed?: Yes (1) Small cell lung cancer Status: Acute Assessment and plan: This is a 63-year-old woman diagnosed with extensive stage small cell lung cancer involving right hilum in August 2023. She is on treatment with carboplatin/etoposide with atezolizumab since 11/11/2023. Her last treatment was last week, she received Neulasta after treatment which explains her leukocytosis. She was in house back on 12/16 with GI bleed. At that time her GI bleeding seemed to be from recurrent rectal prolapse. She also had intermittent moderately severe thrombocytopenia which could have made this worse. CT abdomen pelvis/bleeding scan showed 2 subtle areas of arterial blush in the rectosigmoid colon and the hepatic flexure suspicious for lower GI bleed. She received a unit of blood transfusion. She underwent flexible sigmoidoscopy 12/15/23. She was found to have internal hemorrhoids. She now presents with what appears to be an upper GI bleed with black stools. PET-CT, from 12/23 revealed: Significant interval improvement in metabolic activity with mild residual activity within precarinal and right hilar nodes. Persistent metabolic activity along the antral portion of the stomach. Consider upper endoscopy for further evaluation. She has been admitted for further evaluation. PLAN: She will be undergoing an upper endoscopy later on today. Further plan will be made based upon the results. Her platelet count is 59, so okay for the procedure. Meanwhile she is on IV Protonix. Thank you for this consult, I will follow along with you, CC: Dr. Person. Addendum: EGD revealed: Findings: Larynx:normal Esophagus: GE junction at 37 cm, diaphragm hiatus at 37 cm, patchy erythema at GEJ, and some swelling consistent with esophagitis Stomach: patchy erythema and few erosions with some blanching consistent with possible ischemia. Mid body there was granular erythematous mucosa, bx taken, Grade 2 flap valve on retroflexed examination of the cardia. the pyloric outlet was tight and was dilated by passing the scope with oozing noted. Hemospray was applied to the area. Duodenum: Normal bulb and descending duodenum, - Time Spent With Patient Time Spent with Patient (in minutes): 30
--- NOTE | 2023-12-29 12:31 | PC.NURSE ---
pt transported to short stay by public works manager at this time.
[2023-12-29 12:39] VITALS: BP 122/78; PULSE 66; RESP 18; TEMP 36.1; O2SAT 96; BMI 21.8
--- NOTE | 2023-12-29 12:53 | HO.ANESPROP2 ---
HPI - Anesthesia Eval Consult details Narrative: 63 yo F admitted with melena, presenting for EGD. [facility] Active Problems Active Problems: All Active Problems Small cell lung cancer (Acute) Complaint of melena (Acute) Anemia (Acute) Acute lower GI bleeding (Acute) Hyponatremia (Acute) Small cell lung cancer (Acute) Adjustment disorder with mixed anxiety and depressed mood (Acute) COPD (chronic obstructive pulmonary disease) (Acute) COPD exacerbation (Acute) Pulmonary nodule (Acute) Bronchitis (Acute) Nicotine dependence, cigarettes, uncomplicated (Acute) Allergic rhinitis (Acute) History of hepatitis C (Acute) IV drug user (Acute) Mitral valve prolapse (Acute) Mitral regurgitation (Acute) Sinus bradycardia (Acute) PVC (premature ventricular contraction) (Acute) Benign essential hypertension (Acute) Pure hypercholesterolemia (Acute) Impaired fasting glucose (Acute) Overactive bladder (Acute) Hematuria (Acute) GERD (gastroesophageal reflux disease) (Acute) Irritable bowel syndrome with diarrhea (Acute) 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 (Acute) Rectal bleeding (Acute) Gastroparesis (Acute) Anemia (Acute) Osteopenia (Acute ~2011) Vitamin D deficiency (Acute) Anxiety (Acute) Facet arthritis of lumbar region (Acute) Cervical spondylosis (Acute) Pain and swelling of left knee (Acute) Arthritis of carpometacarpal (CMC) joint of left thumb (Acute) Paresthesia of left leg (Acute) Past Medical History Medical History Small cell lung cancer COPD (chronic obstructive pulmonary disease) Small cell lung cancer (~08/2023) MDD (major depressive disorder), recurrent episode, moderate Abnormal CT scan, chest Mass of right lung Lung mass Bronchitis Rectal prolapse Nicotine dependence, cigarettes, uncomplicated Nonrheumatic mitral (valve) insufficiency Pulmonary nodule History of hepatitis C Osteopenia (~2011) IV drug user Endocarditis of mitral valve (~11/2017) Mitral valve prolapse Mitral regurgitation Early satiety Paresthesia of left leg Allergic rhinitis Facet arthritis of lumbar region Cervical spondylosis Vitamin D deficiency Pure hypercholesterolemia Benign essential hypertension GERD (gastroesophageal reflux disease) Anxiety Family History Family History Father Internal bleeding Mother Medical history unknown Family history of problems with anesthesia: No Surgical History Surgical History History of bronchoscopy (~2023) History of liver biopsy (~2009) History of partial colectomy (~2014) History of hysteroscopy (~2010) History of colonoscopy (~2017) History of Problems with Anesthesia: No Social History Social History Household Members: Children Housing: House Housing Other:: lives alone with her cat Malena Do you presently have visiting nurse or other home services: Yes (2 daughters assist with bringing meals) Alcohol intake: former Patient Tobacco Use Status: Current everyday Tobacco user Tobacco use type: Cigarette Cigarette Packs Per Day: 0.25 Years Smoked: 45 years (onset 15, 1/2-3/4ppd x 44yrs, 28pyh) e-Cigarette/Vaping Use: Never Used Second Hand Smoke Exposure: Yes Substance Use Type: Marijuana Advance Directives Date on File: 09/23/23 service: No Current occupational status: unemployed Sexual orientation: Straight/Heterosexual Gender identity: Female Cognitive needs: No Hearing needs: No Vision needs: Yes Meds Allergies Allergy/AdvReac Type Severity Reaction Status Date / Time No Known Allergies Allergy Unknown unknown Verified 12/28/23 11:08 [NO KNOWN ALLERGIES] Active Medications: Current Medications Acetaminophen (Acetaminophen 325 Mg Tablet) 650 mg PO Q6H PRN PRN Reason: Pain, Mild (Pain Scale 1-3), fever or headache Albuterol Sulfate (Albuterol Sulfate 90 Mcg 8 Gm Inhaler) 1 puff INHALE Q6H PRN PRN Reason: shortness of breath or wheezing Budesonide (Budesonide 180 Mcg Aer.Pow.Ba) 2 puff INHALE BID [facility] Last Admin: 12/29/23 07:45 Dose: 2 puff Calcium Carbonate (Calcium Carbonate 750 Mg Tab.Chew) 750 mg PO Q4H PRN PRN Reason: Heartburn Clonazepam (Clonazepam 0.5 Mg Tablet) 0.5 mg PO BID PRN PRN Reason: Anxiety Last Admin: 12/29/23 11:53 Dose: 0.5 mg Diphenoxylate HCl/Atropine (Diphenoxylate/Atrop 2.5/0.025 Tablet) 1 tab PO DAILY PRN PRN Reason: Diarrhea Fluticasone Propionate (Fluticasone Propionate Nasal 16 Gm [place]) 1 spray NOSTRIL-B DAILY [facility] Last Admin: 12/29/23 08:51 Dose: 1 spray Hydrocortisone (Hydrocortisone 2.5 % Rectal Cr 30 Gm Tube) 1 appl [place] BID [facility] Last Admin: 12/29/23 08:51 Dose: 1 appl Hydroxyzine HCl (Hydroxyzine Hcl 50 Mg Tablet) 50 mg PO BEDTIME [facility] Last Admin: 12/28/23 21:16 Dose: 50 mg Loperamide HCl (Loperamide Hcl 2 Mg Capsule) 2 mg PO Q6H PRN PRN Reason: Diarrhea Last Admin: 12/29/23 04:42 Dose: 2 mg Magnesium Hydroxide (Milk Of Magnesia 30 Ml Oral.Susp) 30 ml PO DAILY PRN PRN Reason: Constipation Melatonin (Melatonin 3 Mg Tablet) 6 mg PO BEDTIME PRN PRN Reason: Insomnia Metoclopramide HCl (Metoclopramide Hcl 5 Mg Tablet) 5 mg PO TIDAC [facility] Last Admin: 12/29/23 08:26 Dose: 5 mg Metoprolol Succinate (Metoprolol Succinate Er 50 Mg Tab.Er.24h) 50 mg PO DAILY [facility]; Protocol Last Admin: 12/29/23 08:26 Dose: 50 mg Mirtazapine (Mirtazapine 15 Mg Tablet) 15 mg PO BEDTIME [facility] Last Admin: 12/28/23 21:16 Dose: 15 mg Nicotine (Nicotine 14 Mg Patch.Td24) 14 mg TRANSDERMA Q24H [facility] Last Admin: 12/28/23 15:50 Dose: 14 mg Nicotine Polacrilex (Nicotine Polacrilex Lozenge 4 Mg Lozenge) 4 mg BUCCAL Q8H PRN PRN Reason: Anxiety Ondansetron HCl (Ondansetron Hcl 4 Mg/2 Ml Vial) 4 mg IVPUSH Q8H PRN PRN Reason: Nausea and Vomiting Last Admin: 12/29/23 04:28 Dose: 4 mg Oxycodone HCl (Oxycodone Hcl Immed Release 5 Mg Tablet) 5 mg PO Q4H PRN PRN Reason: Pain, Severe (Pain Scale 7-10) Last Admin: 12/29/23 11:19 Dose: 5 mg Pantoprazole Sodium (Pantoprazole Sodium 40 Mg/10 Ml Vial) 40 mg IVPUSH BID@0630,1630 [facility] Last Admin: 12/29/23 06:18 Dose: 40 mg Potassium Chloride (Potassium Chloride Er 20 Meq Tab.Er.Prt) 20 meq PO DAILY [facility] Last Admin: 12/29/23 08:26 Dose: 20 meq Senna/Docusate Sodium (Sennosides/Docusate Sodium Tablet) 1 tab PO BEDTIME PRN PRN Reason: Constipation Sodium Chloride (0.9 % Sodium Chloride Flush 3 Ml Syringe) 3 ml IVFLUSH QSHIFT [facility] Last Admin: 12/29/23 08:26 Dose: 3 ml Sodium Chloride (Sodium Chloride Tab 1 Gm Tablet) 1 gm PO BID [facility] Last Admin: 12/29/23 10:56 Dose: 1 gm Sucralfate (Sucralfate 1 Gm Tablet) 4 gm PO DAILY@1200 [facility] Tiotropium [place] (Tiotropium [place] 2.5 Mcg 1 Puff/2.5 Mcg Mist.Inhal) 2 puff INHALE RDAILY [facility] Last Admin: 12/29/23 08:51 Dose: 2 puff Tolterodine Tartrate (Tolterodine Tartrate [place] 4 Mg Cap.Er.24h) 4 mg PO DAILY@09 [facility] Last Admin: 12/29/23 08:51 Dose: 4 mg Vitamin D (Cholecalciferol (Vitamin D3) 25 Mcg Tablet) 50 mcg PO DAILY@09 [facility] Last Admin: 12/29/23 08:26 Dose: 50 mcg Home Medications ?Medication ?Instructions ?Recorded ?Confirmed ?Last Taken ?Type alosetron 0.5 mg tablet 1 mg PO DAILY@89907/22/23 12/28/23 12/28/23 History cholecalciferol (vitamin D3) 50 50 mcg PO DAILY@89907/22/23 12/28/23 12/28/23 History mcg (2,000 unit) capsule solifenacin 10 mg tablet 10 mg PO DAILY@89907/22/23 12/28/23 12/28/23 History sucralfate 1 gram tablet (Carafate) 4 g PO DAILY@119907/25/23 12/28/23 12/28/23 History budesonide 180 mcg/actuation 2 inh inhalation BID 09/28/23 12/28/23 12/28/23 History breath activated powder inhaler (Pulmicort Flexhaler) dexamethasone 4 mg tablet 4 mg PO WETH 10/21/23 12/28/23 Unknown History metoclopramide HCl 5 mg tablet 5 mg PO TIDAC 12/14/23 12/28/23 12/28/23 History mirtazapine 30 mg tablet 15 mg PO BEDTIME 12/27/23 12/28/23 12/27/23 History sennosides 8.6 mg-docusate sodium 1 tab PO BEDTIME PRN Constipation 12/27/23 12/28/23 Unknown History 50 mg tablet (Senexon-S) Exam Exam Date and Time: 12/29/23 1250 Height,Weight and Vital Signs: Height 5 ft 2 in Weight 51.8 kg Last Vital Signs Temp 97.9 F 12/29/23 06:08 Pulse 69 12/29/23 07:47 Resp 16 12/29/23 07:47 BP 112/62 12/29/23 06:08 Pulse Ox 100 12/29/23 06:08 O2 Del Method Nasal Cannula 12/29/23 06:08 O2 Flow Rate 2 12/29/23 06:08 Oxygen Flow Rate 2 12/28/23 11:07 Pertinent Lab Results Pertinent Lab Results: Laboratory Tests 12/28/23 12/29/23 11:28 04:38 WBC 5.1 4.0 L RBC 3.34 L 3.39 L Hgb 10.7 L 10.7 L Hct 31.7 L 32.4 L MCV 94.9 95.6 MCH 32.0 31.6 MCHC 33.8 33.0 RDW 18.6 H 18.6 H Plt Count 61 L 59 L MPV 9.8 9.5 Immature Gran % (Auto) 1.0 H Neut % (Auto) 79.9 H Lymph % (Auto) 11.7 L [place] % (Auto) 6.2 Eos % (Auto) 0.4 Baso % (Auto) 0.8 Lymph # (Auto) 0.6 L [place] # (Auto) 0.3 Eos # (Auto) 0.0 Baso # (Auto) 0.0 Abs Immat Gran (auto) 0.05 H Absolute Neuts (auto) 4.1 Absolute Nucleated RBC 0.000 0.000 Nucleated RBC % (auto) 0.0 0.0 PT 11.5 INR 1.0 APTT 28.1 Sodium 139 137 Potassium 4.1 4.8 Chloride 104 105 Carbon Dioxide 26 21 L Anion Gap 13 16 BUN 13 13 Creatinine 0.71 0.68 Estim Creat Clear Calc 63.2 66.0 Estimated GFR > 60 > 60 Random Glucose 110 108 Calcium 9.6 9.6 Magnesium 1.8 Total Bilirubin 0.4 AST 16 ALT 9 Alkaline Phosphatase 70 Troponin I High Sens < 2.7 Total Protein 7.2 Albumin 4.5 Blood Type B Positive Antibody Screen NEGATIVE Crossmatch (AHG) See Detail Airway Mallampati Class: I TM Dist: >3cm Neck ROM: Limited Denture: Upper and Lower Heart: S1S2 Lungs: CTAB Assessment and Plan Assessment Anesthesia Assessment: Anesthesia Plan Discussed and Chart Reviewed Final Anesthetic Review Family History of Problems with Anesthesia: No History of Problems with Anesthesia: No NPO: Yes ASA Class: III Final Preanesthetic Review: No Changes in Pt Med Stat, Meds/Allgs Chart Reviewed, Consent Obtained/Reviewed and Anes Risks/Benef Reviewed Patient Risk: Intermediate Procedure Risk: Low Anesthetic Plan Anesthetic Plan: MAC: and Agree w/ Assess. and Plan Disposition: Standard PACU
--- NOTE | 2023-12-29 13:36 | P.PNGI_ITS ---
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 Oropharynx clear. Moist mucous membranes. Conjunctivae appear well perfused. No thyroid mass. CHEST: Chest wall is nontender. HEART: Regular rate and rhythm without murmurs. LUNGS: Clear to auscultation bilaterally. ABDOMEN: Soft, positive bowel sounds, nontender, no organomegaly.no flank tenderness SKIN: No rash, no excessive bruising, petechiae, or purpura. NEUROLOGIC: Cranial nerves II-XII intact without motor/sensory deficit. Psych: normal affect Objective Data Labs 12/29/23 04:38 12/29/23 04:38 Labs: Laboratory Results - last 24 hr 12/28/23 12/29/23 11:28 04:38 WBC 4.0 L RBC 3.39 L Hgb 10.7 L Hct 32.4 L MCV 95.6 MCH 31.6 MCHC 33.0 RDW 18.6 H Plt Count 59 L MPV 9.5 Absolute Nucleated RBC 0.000 Nucleated RBC % (auto) 0.0 Sodium 137 Potassium 4.8 Chloride 105 Carbon Dioxide 21 L Anion Gap 16 BUN 13 Creatinine 0.68 Estim Creat Clear Calc 66.0 Estimated GFR > 60 Random Glucose 108 Calcium 9.6 Blood Type B Positive Antibody Screen NEGATIVE Crossmatch (AHG) See Detail Procedures Date of Service Date of Service: 12/29/23 Progress Note: A&P Assessment and plan (1) Complaint of melena: Status: Acute Plan 1/ Melena with epigastric pain, prob PUD< had abn PET scan, HGB has been stable PLAN: / - EGD today for further assessment Time Spent With Patient Time: Total time managing care of this patient today ____ minutes. Quality Stroke Does the patient have a stroke diagnosis?: No VTE Prior VTE?: No VTE Risk Level:: Medical - moderate - high VTE Device Contraindication: N/A - Device Ordered VTE Drug Contraindication: Treatment Not Indicated
--- NOTE | 2023-12-29 13:38 | MHC.SHP ---
Pre-Procedural Eval Section A - 24 Hr Update-Section A only Date of Service: 12/29/23 The patient is an INPATIENT: Yes The patient has been examined within 24 hours of the surgical procedure. The History & Physical has been completed within 30 days and I have reviewed it.: Yes Section B - Complete if H&P > 30 days Chief Complaint: abd pain, BRBPR Allergies: Allergies Allergy/AdvReac Type Severity Reaction Status Date / Time No Known Allergies Allergy Unknown unknown Verified 12/28/23 11:08 [NO KNOWN ALLERGIES] Plan Diagnosis/Plan: Unchanged I have reviewed the history and physical and performed a pertinent physical examination on my patient. No changes have occurred unless specified. Time Spent With Patient Time: Total time managing care of this patient today ____ minutes.
--- NOTE | 2023-12-29 14:13 | W.PM.OPN ---
Operative Note Operative Note Date of Service: 12/29/23 Narrative: Procedure Description: EGD Indication: anemia Anesthesia: MAC FLEXIBLE TRANSORAL UPPER GASTROINTESTINAL ENDOSCOPY UPPER ENDOSCOPY Consent: Indications for the procedure and potential complications of bleeding, perforation, reaction to medications and missed diagnosis were discussed with the patient and informed consent was obtained. Instrument: Olympus GIF H 190 J mid size upper endoscope Monitoring: Vital signs and clinical assessment, continuous EKG monitoring, Pulse oximetry, Carbon Dioxide monitoring and blood pressure monitoring were done throughout the procedure. Procedure: The patient was placed in the left lateral decubitis position and pre-procedure medications were administered and a bite block was placed. The endoscope was inserted into the mouth and advanced under direct vision to the third part of duodenum. A careful inspection was made as the upper endoscope was withdrawn including a retroflexed examination of the proximal stomach; Findings and interventions are described below. Findings: Larynx:normal Esophagus: GE junction at 37 cm, diaphragm hiatus at 37 cm, patchy erythema at GEJ, and some swelling consistent with esophagitis Stomach: patchy erythema and few erosions with some blanching consistent with possible ischemia . Mid body there was granular erythematous mucosa, bx taken, Grade 2 flap valve on retroflexed examination of the cardia. the pyloric outlet was tight and was dilated by passing the scope with oozing noted. Hemospray was applied to the area. Duodenum: Normal bulb and descending duodenum, Intervention: Biopsies as noted above, Impression/Findings: gastritis, erosions esophagitis possible gastric ischemia mild tight pyloric outlet PLAN: cont with PPI and carafate GERD precautions can consider o/p duplex to check celiac flow
[2023-12-29 14:20] VITALS: BP 99/52; PULSE 70; RESP 16; TEMP 36.2; O2SAT 100
--- NOTE | 2023-12-29 14:20 | PM.DS ---
DS: Providers Provider Date of Service: 12/29/23 Date of admission: 12/28/23 14:24 Date of discharge: 12/29/23 Primary care physician: Sarthak Person MD Consults: 12/28/23 14:24 Consult to Gastroenterology Routine Consulting Provider: Fabiola Spear Reason for consultation: recurrent BRBPR and reported epigastric pain and melena 12/28/23 14:29 Consult to Hematology / Oncology Routine Consulting Provider: [facility] [place]/Hematology Reason for consultation: recurrent lower GIB, low PLT. DS: Diagnosis Discharge Diagnosis (1) Complaint of melena: Status: Acute DS: Summary Hospital Course Hospital Course: from initial hpi: 63-year-old female with PMH of COPD on 2L, metastatic small-cell lung cancer on Chemo, SIADH, GERD, IBS, rectal prolapse, chronic iron-deficiency anemia, internal hemorrhoids who presents to the ED for evaluation of BRBPR and abdominal pain. The patient was evaluated recent admission with colonoscopy showing evidence of internal hemorrhoids. she was in ED yesterday for the same problem and received Platlets and went home afterward. Today she is back because she felt sick to her stomach with incident of vomiting of yellowish material with no blood. had black bowel movement afterward and got concerned so she came to ED for eval. PLT around 60 from 31 yesterday, Hb stable >10. +ve occult stool for many years now. GI and Oncology were consulted and recommended admission for EGD. hospital course: Patient was admitted for acute GI bleed. She was treated with IV PPI. Had no further bleeding. Hemoglobin remained stable. For chronic thrombocytopenia due to chemotherapy she received 1 unit of platelets in ED 12/27/23, has been stable. For metastatic small cell lung cancer will follow up outpatient with Oncology. For chronic hypoxic respiratory failure due to COPD is continued on inhalers. For hypertension was continued on metoprolol. Patient underwent EGD which showed some erosions no active bleeding. Recommendations were to increase Protonix to 40 mg b.i.d. and continue Carafate. Patient is feeling better will be discharged home. Time Attestation Discharge Coordination Time (in mins): 37 Quality: Safe Use of Opioids Does Pt have an Active Cancer Diagnosis on the Problem List?: Yes Opioid Measure Date for CMS Report: 11/29/23 Opioid Measure Time for CMS Report: 14:20 Quality: Stroke Does the patient have a stroke diagnosis?: No Physical Exam Vital Signs: Vital Signs: Last Vital Signs Temp 97.0 F 12/29/23 12:39 Pulse 66 12/29/23 12:39 Resp 18 12/29/23 12:39 BP 122/78 12/29/23 12:39 Pulse Ox 96 12/29/23 12:39 O2 Del Method Nasal Cannula 12/29/23 12:39 O2 Flow Rate 2 12/29/23 12:39 Oxygen Flow Rate 2 12/28/23 11:07 BMI result Body Mass Index 21.8 EXAM: GENERAL: The patient is frail. VITAL SIGNS:see workflow HEENT: Nonicteric sclerae, PERRLA, EOMI. Oropharynx clear. Moist mucous membranes. Conjunctivae appear well perfused. No thyroid mass. CHEST: Chest wall is nontender. HEART: Regular rate and rhythm without murmurs. LUNGS: Clear to auscultation bilaterally. ABDOMEN: Soft, positive bowel sounds, tender epigastrium, no organomegaly.no flank tenderness SKIN: No rash, no excessive bruising, petechiae, or purpura. NEUROLOGIC: Cranial nerves II-XII intact without motor/sensory deficit. Psych: normal affect DS: Data Data Completed and Pending Completed studies during hospitalization [Text1]: Procedures Excision of Right Main Bronchus, Via Natural or Artificial Opening Endoscopic, Diagnostic (08/24/23) Inspection of Lower Intestinal Tract, Via Natural or Artificial Opening Endoscopic (12/14/23) Transfusion of Nonautologous Platelets into Peripheral Vein, Percutaneous Approach (12/14/23) Transfusion of Nonautologous Red Blood Cells into Peripheral Vein, Percutaneous Approach (12/14/23) Pending studies at discharge: Pending at discharge 12/29/23 14:07 Surgical [PTH] Routine Labs on day of discharge: Laboratory Results - last 24 hr 12/28/23 12/29/23 11:28 04:38 WBC 4.0 L RBC 3.39 L Hgb 10.7 L Hct 32.4 L MCV 95.6 MCH 31.6 MCHC 33.0 RDW 18.6 H Plt Count 59 L MPV 9.5 Absolute Nucleated RBC 0.000 Nucleated RBC % (auto) 0.0 Sodium 137 Potassium 4.8 Chloride 105 Carbon Dioxide 21 L Anion Gap 16 BUN 13 Creatinine 0.68 Estim Creat Clear Calc 66.0 Estimated GFR > 60 Random Glucose 108 Calcium 9.6 Blood Type B Positive Antibody Screen NEGATIVE Crossmatch (AHG) See Detail Discharge Plan Discharge Anticipated Discharge Date/Time: 12/29/23 14:17 Patient Disposition: Home, Self-Care Discharge Diagnosis: gi bleed Referrals: Sarthak Person MD [Primary Care Provider] - 1 Week Discharge Medications: Continued albuterol sulfate [Ventolin HFA] 90 mcg/actuation HFA aerosol inhaler 1 puff PO Q6H PRN (Reason: shortness of breath or wheezing) 30 Days Qty: 8.5 3RF hydroxyzine HCl 50 mg tablet 50 mg PO BEDTIME Qty: 90 1RF fluticasone propionate 50 mcg/actuation spray,suspension 1 spray intranasal DAILY 30 Days Qty: 16 2RF metoprolol succinate 50 mg tablet extended release 24 hr 50 mg PO DAILY Qty: 90 1RF tiotropium bromide [Spiriva with HandiHaler] 18 mcg capsule, w/inhalation device 1 cap inhalation DAILY Qty: 30 5RF oxycodone 5 mg tablet 5 mg PO Q6H PRN (Reason: pain) Qty: 30 0RF alosetron 0.5 mg tablet 1 mg PO DAILY@0900 solifenacin 10 mg tablet 10 mg PO DAILY@0900 cholecalciferol (vitamin D3) 50 mcg (2,000 unit) capsule 50 mcg PO DAILY@0900 Rx Instructions: 1 capsule Orally Once a day sucralfate [Carafate] 1 gram tablet 4 g PO DAILY@1200 nicotine (polacrilex) 4 mg Lozenge 4 mg BUCCAL Q8H PRN (Reason: Anxiety) Qty: 60 0RF diphenoxylate-atropine [Lomotil] 2.5-0.025 mg Tablet 1 tab PO DAILY PRN (Reason: Diarrhea) Qty: 30 0RF dexamethasone 4 mg tablet 4 mg PO WETH Rx Instructions: for chemo treatments clonazepam 0.5 mg Tablet 0.5 mg PO BID PRN (Reason: Anxiety) Qty: 60 0RF potassium chloride [K-Tab] 20 mEq Tablet Extended Release 20 meq PO DAILY Qty: 30 0RF ondansetron 8 mg Tablet,Disintegrating 8 mg PO Q8H PRN (Reason: Nausea And Vomiting) Qty: 30 3RF Pulmicort Flexhaler 180 mcg/actuation aerosol powdr breath activated 2 inh INHALATION BID loperamide 2 mg Capsule 2 mg PO Q6H PRN (Reason: Diarrhea) Qty: 14 0RF metoclopramide HCl 5 mg tablet 5 mg PO TIDAC hydrocortisone [Proctozone-HC] 2.5 % Cream With Perineal Applicator 1 appl OR BID Qty: 30 0RF magnesium 250 mg tablet 250 mg PO BID Qty: 180 0RF sodium chloride 1,000 mg tablet,soluble 1,000 mg PO BID Qty: 180 0RF sennosides-docusate sodium [Senexon-S] 8.6-50 mg tablet 1 tab PO BEDTIME PRN (Reason: Constipation) mirtazapine 30 mg tablet 15 mg PO BEDTIME nicotine 14 mg/24 hr patch 24 hour 1 patch transdermal Q24H MDD smoking 28 Days Qty: 28 2RF Changed pantoprazole 40 mg tablet,delayed release (DR/EC) 40 mg PO BID 90 Days Qty: 90 0RF Discharge Orders: Discharge Order (Routine); Ordered 12/29/23 Ordered By: Yakov Robles Diet: Advance to usual diet Activity on Discharge: As tolerated Stand Alone Forms: Patient Portal Discharge page Print Language: Gambian Care Plan Goals: recovery Health Concerns: gastric erosions Plan of Treatment: icnrease protonix to 40mg bid, continue carafate Assessment: see above
--- NOTE | 2023-12-29 14:24 | MHC.CM.PN ---
Patient has been medically cleared for dc to home today, self care.
[2023-12-29 14:35] VITALS: BP 100/61; PULSE 76; RESP 16; O2SAT 100
[2023-12-29] MEDS: Heparin Sodium,Porcine Flush 50 UNITS/5 ML SYRINGE IVFLUSH (14:40)
--- NOTE | 2023-12-29 14:41 | MHC.CM.PN ---
pt dcd home self care
[2023-12-29 14:46] VITALS: BP 147/76; PULSE 76; RESP 16; TEMP 36.1; O2SAT 100
== END 2023-12-29 14:55 | disposition home or self-care (01) ==
LOC: HO.ED 13:10 → HO.EDOVER 14:38
PROVIDERS: Internal Medicine Gastroenterology; Physician Assistant Medical; Admitting Provider Student in an Organized Health Care Education/Training Program; Emergency Provider Emergency Medicine Emergency Medical Services; PCP Internal Medicine; Visit Provider Internal Medicine
PROC: 0DJ08ZZ Inspection of Upper Intestinal Tract, Via Natural or Artificial Opening Endoscopic (ICD-10-PCS; CPT 43235; principal; 2023-12-29 14:40)
DX: K92.1 Melena (principal); C34.90 Malignant neoplasm of unspecified part of unspecified bronchus or lung; D69.59 Other secondary thrombocytopenia; T45.1X5A Adverse effect of antineoplastic and immunosuppressive drugs, initial encounter; Y92.9 Unspecified place or not applicable; J96.90 Respiratory failure, unspecified, unspecified whether with hypoxia or hypercapnia; K20.90 Esophagitis, unspecified without bleeding; D50.9 Iron deficiency anemia, unspecified; J44.9 Chronic obstructive pulmonary disease, unspecified; I11.0 Hypertensive heart disease with heart failure; R10.13 Epigastric pain
CPT/HCPCS: 43239; 36415; 80048; 80053; 83735; 84484; 85025; 85027; 85610; 85730; 86850; 86900; 86901; 86920; 86922; 88305; 88313; 88342; 93005; 94640; 94664; 96374; 96375; 96376; 99221; 99285; J1596; J1642; J2405; J2470; J2704

== ENCOUNTER → 2023-12-28 14:24 | Outpatient (BNV) | payer OTHER, SELFPAY | PROVIDERS: Admitting Provider Student in an Organized Health Care Education/Training Program; Emergency Provider Emergency Medicine Emergency Medical Services; PCP Internal Medicine; Visit Provider Internal Medicine Medical Oncology | DX: C34.90 Malignant neoplasm of unspecified part of unspecified bronchus or lung (principal); K92.1 Melena | CPT/HCPCS: 99222 ==

== ENCOUNTER → 2023-12-28 14:24 | Outpatient (BNV) | payer OTHER, SELFPAY | PROVIDERS: Admitting Provider Student in an Organized Health Care Education/Training Program; Emergency Provider Emergency Medicine Emergency Medical Services; PCP Internal Medicine; Visit Provider Internal Medicine Gastroenterology | DX: K92.1 Melena (principal) | CPT/HCPCS: 43239; 43245; 99223; 99232 ==

== ENCOUNTER → 2023-12-28 14:24 | Outpatient (BNV) | payer OTHER, SELFPAY | PROVIDERS: Admitting Provider Student in an Organized Health Care Education/Training Program; Emergency Provider Emergency Medicine Emergency Medical Services; PCP Internal Medicine; Visit Provider Student in an Organized Health Care Education/Training Program | DX: K92.1 Melena (principal) | CPT/HCPCS: 99222; 99239 ==

== ENCOUNTER 2024-01-01 13:14 | Emergency (ER) | payer OTHER, SELFPAY ==
--- NOTE | 2024-01-01 13:17 | ED_ITS ---
HPI - Female Genitourinary General Chief complaint: General Medical Stated complaint: infection Time Seen by Provider: 01/01/24 17:33 Source: patient Mode of arrival: ambulatory Limitations: no limitations History of Present Illness HPI Narrative: Patient is a 63-year-old female with past medical history of COPD with chronic respiratory failure on 2 L via nasal cannula, metastatic small cell lung cancer on chemotherapy, SIADH, GERD, IBS, rectal prolapse, chronic IVDA, internal hemorrhoids presenting to the emergency department for evaluation. Patient was called back to the emergency department guarding her urine culture, upon speaking with patient she endorsed having generalized fatigue and abdominal pain. On a recent hospital visit she had a urinalysis obtained, culture has resulted positive for Enterococcus faecium, vancomycin resistant, only susceptible to linezolid. She denies having urinary symptoms or flank pain. Does not believe she has been experiencing any fevers. She was admitted to [facility] 12/28/2023 and discharged 12/29/2023 for acute GIB, treated with IV ppi, EGD showed evidence of erosions no active bleeding, patient had no further bleeding, she does have chronic chronic thrombocytopenia due to chemotherapy she did receive platelet transfusion during that admission, was discharged with Protonix and Carafate and advised outpatient follow-up Related Data Home Medications ?Medication ?Instructions ?Recorded ?Confirmed alosetron 0.5 mg tablet 1 mg PO DAILY@89907/22/23 12/31/23 cholecalciferol (vitamin D3) 50 50 mcg PO DAILY@89907/22/23 12/31/23 mcg (2,000 unit) capsule solifenacin 10 mg tablet 10 mg PO DAILY@89907/22/23 12/31/23 sucralfate 1 gram tablet (Carafate) 4 g PO DAILY@1200 07/25/23 12/31/23 budesonide 180 mcg/actuation 2 inh inhalation BID 09/28/23 12/31/23 breath activated powder inhaler (Pulmicort Flexhaler) dexamethasone 4 mg tablet 4 mg PO WETH 10/21/23 12/31/23 metoclopramide HCl 5 mg tablet 5 mg PO TIDAC 12/14/23 12/31/23 mirtazapine 30 mg tablet 15 mg PO BEDTIME 12/27/23 12/31/23 sennosides 8.6 mg-docusate sodium 1 tab PO BEDTIME PRN Constipation 12/27/23 12/31/23 50 mg tablet (Senexon-S) pantoprazole 40 mg tablet,delayed 80 mg PO BID 12/30/23 12/31/23 release Previous Rx's ?Medication ?Instructions ?Recorded albuterol sulfate 90 mcg/actuation 1 puff PO Q6H PRN shortness of 03/20/23 aerosol inhaler (Ventolin HFA) breath or wheezing 30 days #8.5 grams hydroxyzine HCl 50 mg tablet 50 mg PO BEDTIME #90 tabs 05/21/23 nicotine 14 mg/24 hr daily 1 patch transdermal Q24H smoking 08/17/23 transdermal patch 28 days #28 ea fluticasone propionate 50 1 spray intranasal DAILY 30 days 09/11/23 mcg/actuation nasal #16 grams spray,suspension loperamide 2 mg capsule 2 mg PO Q6H PRN Diarrhea #14 caps 10/09/23 diphenoxylate-atropine 2.5 1 tab PO DAILY PRN Diarrhea #30 10/14/23 mg-0.025 mg tablet (Lomotil) tabs nicotine (polacrilex) 4 mg buccal 4 mg buccal Q8H PRN Anxiety #60 ea 10/14/23 lozenge metoprolol succinate 50 mg 50 mg PO DAILY #90 tabs 11/22/23 tablet,extended release 24 hr tiotropium bromide 18 mcg capsule 1 cap inhalation DAILY #30 ea 11/23/23 with inhalation device (Spiriva with HandiHaler) potassium chloride 20 mEq 20 meq PO DAILY #30 tabs 12/08/23 tablet,extended release (K-Tab) hydrocortisone 2.5 % topical cream 1 appl CO BID #30 grams 12/17/23 with perineal applicator (Proctozone-HC) magnesium 250 mg tablet 250 mg PO BID #180 tabs 12/17/23 sodium chloride 1,000 mg soluble 1,000 mg PO BID #180 tabs 12/17/23 tablet ondansetron 8 mg disintegrating 8 mg PO Q8H PRN Nausea And 12/24/23 tablet Vomiting #30 tabs clonazepam 0.5 mg tablet 0.5 mg PO BID PRN Anxiety #60 tabs 12/31/23 linezolid 600 mg tablet 600 mg PO BID #12 tabs 01/01/24 oxycodone 5 mg tablet 5 mg PO Q6H PRN pain #30 tabs 01/01/24 Allergies Allergy/AdvReac Type Severity Reaction Status Date / Time No Known Allergies Allergy Unknown unknown Verified 01/01/24 13:20 [NO KNOWN ALLERGIES] Review of Systems 2 Review of Systems: Yes all other systems are reviewed and are negative [facility] Past Medical History Attestation statement: The following information was validated with the patient. Source: old records reviewed Medical History Small cell lung cancer COPD (chronic obstructive pulmonary disease) Small cell lung cancer (~08/2023) MDD (major depressive disorder), recurrent episode, moderate Abnormal CT scan, chest Mass of right lung Lung mass Bronchitis Rectal prolapse Nicotine dependence, cigarettes, uncomplicated Nonrheumatic mitral (valve) insufficiency Pulmonary nodule History of hepatitis C Osteopenia (~2011) IV drug user Endocarditis of mitral valve (~11/2017) Mitral valve prolapse Mitral regurgitation Early satiety Paresthesia of left leg Allergic rhinitis Facet arthritis of lumbar region Cervical spondylosis Vitamin D deficiency Pure hypercholesterolemia Benign essential hypertension GERD (gastroesophageal reflux disease) Anxiety Surgical History History of bronchoscopy (~2023) History of liver biopsy (~2009) History of partial colectomy (~2014) History of hysteroscopy (~2010) History of colonoscopy (~2017) Family History Family History Father Internal bleeding Mother Medical history unknown Social History Social History Household Members: Children Housing: House Housing Other:: lives alone with her cat Malena Are you a primary healthcare specialist to a significant other at home: No Do you presently have visiting nurse or other home services: Yes ([facility]) Alcohol intake: former Patient Tobacco Use Status: Current everyday Tobacco user Tobacco use type: Cigarette Cigarette Packs Per Day: 5 Years Smoked: 45 years (onset 15, 1/2-3/4ppd x 44yrs, 28pyh) e-Cigarette/Vaping Use: Never Used Second Hand Smoke Exposure: Yes Substance Use Type: Marijuana Advance Directives: Yes Advance Directives on File: Yes Advance Directives Date on File: 09/23/23 Do you have a plan to hurt others: No Plan service: No Current occupational status: unemployed Sexual orientation: Straight/Heterosexual Gender identity: Female Cognitive needs: No Hearing needs: No Vision needs: Yes Physical Exam 2 Vital Signs: Vital Signs: Last Vital Signs Temp 98.1 F 01/01/24 17:28 Pulse 85 01/01/24 17:28 Resp 20 01/01/24 17:28 BP 156/86 H 01/01/24 17:28 Pulse Ox 99 01/01/24 17:28 O2 Del Method Room Air 01/01/24 17:28 BMI result Body Mass Index 21.8 Appearance: Alert.?Oriented to person, place and time. No acute distress.?Normal affect. Eyes: Pupils equal, round and reactive to light.? CVS: Heart sounds normal. Normal heart rate and rhythm.? Pulses normal.?? Respiratory: No respiratory distress.? Lung sounds clear to auscultation bilaterally?? Abdomen: Soft and non-tender. Normoactive bowel sounds. No CVAT Skin: Skin warm and dry.? Normal skin color.? Extremities: No lower extremity edema.? No calf ttp? Neuro: Moves all extremities spontaneously. Sensation intact bilaterally. Ambulates with normal steady gait. Course Course Course Narrative: This is a Rapid Medical Exam performed in triage by Mihaela Mtz PA-C. Full HPI, ROS and PE to be performed by primary ED provider. 63-year-old female with PMH of COPD on 2L, metastatic small-cell lung cancer on Chemo, SIADH, GERD, IBS, rectal prolapse, chronic iron-deficiency anemia, internal hemorrhoids who presents to the ED for positive urine Cx growing E coli vanco resistant, only susceptible to linezolid PE: On chronic O2, chronically ill-appearing Plan: Labs, UA, admission Reevaluation(s) Reevaluation #1: Patient signed out to Mihaela VUONG pending lactic acid, disposition, anticipate discharge home if with prescription for oral linezolid Time: 18:55 Reevaluation #2: Lactic acid 1.0. Patient is safe for discharge home at this time. Case was discussed with hospitalist by previous provider who declined admission. Results discussed with patient including worrisome signs and symptoms and strict return precautions, and when to return to the emergency department. They verbalized understanding and feel safe for discharge at this time. Time: 19:22 Medical Decision Making Medical Decision Making [facility] Narrative: Patient is a 63-year-old female with past medical history of COPD with chronic respiratory failure on 2 L via nasal cannula, metastatic small cell lung cancer on chemotherapy, SIADH, GERD, IBS, rectal prolapse, chronic IVDA, internal hemorrhoids was called back to hospital due to recent urine culture resulting in Enterococcus faecium with vancomycin resistant, only susceptible to linezolid. She is afebrile, without tachycardia, no hypotension. Repeat serum labs today, chronic pancytopenia. No electrolyte derangement. No RUBY. Repeat urinalysis was obtained in addition to blood cultures and lactic acid. At this time she is afebrile without tachycardia does not meet SIRS criteria. Discussed with patient plan of care for possible admission versus outpatient treatment with oral antibiotics Differential Diagnosis Differential Diagnoses: The differential diagnosis associated with the presentation includes (See narrative above) Admission/Observation Consideration of admission/observation: Escalation of care including admission/observation considered (See narrative above) Consult Healthcare Provider Management of the patient was discussed with: Hospitalist Lab Data [facility] Lab Attestation statement: I reviewed the patient's lab results. (See narrative above) 01/01/24 13:41 01/01/24 13:41 Labs: Lab Results 01/01/24 01/01/24 01/01/24 Range/Units 13:41 17:31 18:53 WBC 4.5 L (4.8-10.8) X10*3/uL RBC 2.97 L (4.20-5.50) X10*6/uL Hgb 9.7 L (12.0-16.0) g/dl Hct 28.6 L (37.0-47.0) % MCV 96.3 (80.0-98.0) fL MCH 32.7 (27.0-33.0) pg MCHC 33.9 (31.0-35.0) g/dl RDW 18.8 H (11.0-16.0) % Plt Count 60 L (160-400) X10*3/uL MPV 9.2 L (9.4-12.3) fL Immature Gran % (Auto) 0.4 (0.0-0.4) % Neut % (Auto) 63.7 (45-73) % Lymph % (Auto) 25.2 (20-40) % Saunders % (Auto) 9.3 (2-11) % Eos % (Auto) 0.7 (0-4) % Baso % (Auto) 0.7 (0-2) % Lymph # (Auto) 1.1 L (1.2-4.9) X10*3/uL Saunders # (Auto) 0.4 (0.1-1.2) X10*3/uL Eos # (Auto) 0.0 (0.0-0.4) X10*3/uL Baso # (Auto) 0.0 (0.0-0.2) X10*3/uL Abs Immat Gran (auto) 0.02 (0.00-0.03) X10*3/uL Absolute Neuts (auto) 2.9 (2.0-8.3) x10*3/uL Absolute Nucleated RBC 0.000 (0.0-0.012) X10*3/uL Nucleated RBC % (auto) 0.0 (0.0-0.2) /100WBC Sodium 143 (135-145) mmol/L Potassium 4.3 (3.3-5.1) mmol/L Chloride 109 H (96-108) mmol/L Carbon Dioxide 25 (22-29) mmol/L Anion Gap 13 (12-20) BUN 15 (9-16) mg/dL Creatinine 0.81 (0.5-1.4) mg/dL Estim Creat Clear Calc 55.4 Estimated GFR > 60 Random Glucose 151 H (60-115) mg/dL Lactic Acid 1.0 (0.5-2.0) mmol/L Calcium 9.4 (8.4-10.2) mg/dL Urine Color Yellow Urine Appearance Clear Urine pH 5.5 (5.0-9.0) Ur Specific [place] 1.020 (1.005-1.025) Urine Protein Negative (Neg-Trace) mg/dL Urine Glucose (UA) Negative (Negative) mg/dL Urine Ketones Negative (Negative) mg/dL Urine Blood Moderate (2+) H (Negative) Urine Nitrite Negative (Negative) Ur Leukocyte Esterase Small (1+) H (Negative) Urine RBC 11-20 H (0-2) /HPF Urine WBC 11-20 H (0-5) /HPF Ur Squamous Epith Cells 3-5 (0-2) /HPF Urine Bacteria None Seen (None Seen) Hyaline Casts 0-2 (0-2) /LPF External Record Review External record reviewed: Outpatient record Prescription Management I considered prescription management with: Antibiotic Discharge Plan Discharge Clinical Impression: Urinary tract infection Patient Disposition: Still a Patient Instructions: Urinary Tract Infection in Older Adults (ED) Prescriptions: New linezolid 600 mg tablet 600 mg PO BID Qty: 12 0RF No Action albuterol sulfate [Ventolin HFA] 90 mcg/actuation HFA aerosol inhaler 1 puff PO Q6H PRN (Reason: shortness of breath or wheezing) 30 Days Qty: 8.5 3RF hydroxyzine HCl 50 mg tablet 50 mg PO BEDTIME Qty: 90 1RF fluticasone propionate 50 mcg/actuation spray,suspension 1 spray intranasal DAILY 30 Days Qty: 16 2RF metoprolol succinate 50 mg tablet extended release 24 hr 50 mg PO DAILY Qty: 90 1RF tiotropium bromide [Spiriva with HandiHaler] 18 mcg capsule, w/inhalation device 1 cap inhalation DAILY Qty: 30 5RF oxycodone 5 mg tablet 5 mg PO Q6H PRN (Reason: pain) Qty: 30 0RF alosetron 0.5 mg tablet 1 mg PO DAILY@0900 solifenacin 10 mg tablet 10 mg PO DAILY@0900 cholecalciferol (vitamin D3) 50 mcg (2,000 unit) capsule 50 mcg PO DAILY@0900 Rx Instructions: 1 capsule Orally Once a day sucralfate [Carafate] 1 gram tablet 4 g PO DAILY@1200 nicotine (polacrilex) 4 mg Lozenge 4 mg BUCCAL Q8H PRN (Reason: Anxiety) Qty: 60 0RF diphenoxylate-atropine [Lomotil] 2.5-0.025 mg Tablet 1 tab PO DAILY PRN (Reason: Diarrhea) Qty: 30 0RF dexamethasone 4 mg tablet 4 mg PO WETH Rx Instructions: for chemo treatments potassium chloride [K-Tab] 20 mEq Tablet Extended Release 20 meq PO DAILY Qty: 30 0RF ondansetron 8 mg Tablet,Disintegrating 8 mg PO Q8H PRN (Reason: Nausea And Vomiting) Qty: 30 3RF pantoprazole 40 mg tablet,delayed release (DR/EC) 80 mg PO BID clonazepam 0.5 mg Tablet 0.5 mg PO BID PRN (Reason: Anxiety) Qty: 60 0RF Pulmicort Flexhaler 180 mcg/actuation aerosol powdr breath activated 2 inh INHALATION BID loperamide 2 mg Capsule 2 mg PO Q6H PRN (Reason: Diarrhea) Qty: 14 0RF metoclopramide HCl 5 mg tablet 5 mg PO TIDAC hydrocortisone [Proctozone-HC] 2.5 % Cream With Perineal Applicator 1 appl CO BID Qty: 30 0RF magnesium 250 mg tablet 250 mg PO BID Qty: 180 0RF sodium chloride 1,000 mg tablet,soluble 1,000 mg PO BID Qty: 180 0RF sennosides-docusate sodium [Senexon-S] 8.6-50 mg tablet 1 tab PO BEDTIME PRN (Reason: Constipation) mirtazapine 30 mg tablet 15 mg PO BEDTIME nicotine 14 mg/24 hr patch 24 hour 1 patch transdermal Q24H MDD smoking 28 Days Qty: 28 2RF Print Language: Ukrainian
[2024-01-01 13:18] VITALS: BP 129/81; PULSE 84; RESP 20; TEMP 36.4; O2SAT 98; BMI 21.8
[2024-01-01 13:48] LABS: MANUAL DIFF FLAG NO
[2024-01-01 13:51] LABS: Basophils Percent Auto 0.7 % (0-2); Eosinophils Percent Auto 0.7 % (0-4); Hematocrit 28.6 % (37.0-47.0); Hemoglobin 9.7 g/dl (12.0-16.0); Imm Gran Abs Auto 0.02 X10*3/uL (0.00-0.03); Imm Gran Pct Auto 0.4 % (0.0-0.4); Lymphocytes Absolute Auto 1.1 X10*3/uL (1.2-4.9); Lymphocytes Percent Auto 25.2 % (20-40); Mean Corpuscular HGB Conc 33.9 g/dl (31.0-35.0); Mean Corpuscular Hemoglobin 32.7 pg (27.0-33.0); Mean Corpuscular Volume 96.3 fL (80.0-98.0); Mean Platelet Volume 9.2 fL (9.4-12.3); Monocytes Absolute Auto 0.4 X10*3/uL (0.1-1.2); Monocytes Percent Auto 9.3 % (2-11); Neutrophils Absolute Auto 2.9 x10*3/uL (2.0-8.3); Neutrophils Percent Auto 63.7 % (45-73); Red Blood Count 2.97 X10*6/uL (4.20-5.50); Red Cell Distribution Width 18.8 % (11.0-16.0); White Blood Count 4.5 X10*3/uL (4.8-10.8)
[2024-01-01 13:52] LABS: Platelet Count 60 X10*3/uL (160-400)
[2024-01-01 14:00] LABS: Anion Gap 13 (12-20); Blood Urea Nitrogen 15 mg/dL (9-16); Calcium 9.4 mg/dL (8.4-10.2); Carbon Dioxide 25 mmol/L (22-29); Chloride 109 mmol/L (96-108); Creatinine Clr Calc Pharmacy 55.4; Estimated Glomerular Filt Rate > 60; Glucose Random 151 mg/dL (60-115); Potassium 4.3 mmol/L (3.3-5.1); Sodium 143 mmol/L (135-145)
[2024-01-01 17:28] VITALS: BP 156/86; PULSE 85; RESP 20; TEMP 36.7; O2SAT 99
[2024-01-01 17:40] LABS: Appearance Urine Clear; Color Urine Yellow; Glucose Urine UA Negative (Negative); Leukocyte Esterase Urine Small (1+) (Negative); Nitrite Urine Negative (Negative); PH 5.5 (5.0-9.0); UMIC TRIGGER UACC YES; Urine Blood Moderate (2+) (Negative); Urine Ketones Negative (Negative); Urine Protein Negative (Neg-Trace)
[2024-01-01 17:45] LABS: Bacteria Urine None Seen (None Seen); Hyaline Casts Urine 0-2 /LPF (0-2); UACC Culture Trigger YES
[2024-01-01] MEDS: Linezolid 600 MG TABLET PO (19:49)
[2024-01-01 19:50] VITALS: BP 156/86; PULSE 85; RESP 20; TEMP 36.7; O2SAT 99
== END 2024-01-01 19:51 | disposition home or self-care (01) ==
PROVIDERS: Nurse Practitioner Family; Physician Assistant; Emergency Provider Internal Medicine; PCP Internal Medicine
DX: N39.0 Urinary tract infection, site not specified (principal); I10 Essential (primary) hypertension; E78.00 Pure hypercholesterolemia, unspecified; C34.90 Malignant neoplasm of unspecified part of unspecified bronchus or lung; J44.9 Chronic obstructive pulmonary disease, unspecified; Z99.81 Dependence on supplemental oxygen; F17.210 Nicotine dependence, cigarettes, uncomplicated; Z79.899 Other long term (current) drug therapy
CPT/HCPCS: 36415; 80048; 81001; 83605; 85025; 87040; 87086; 99282; 99283

== ENCOUNTER 2024-01-03 12:15 | Observation (INO) | payer OTHER, SELFPAY ==
--- NOTE | ~2024-01-03 | CT_ITS ---
EXAMINATION: CT ABDOMEN AND PELVIS WITH CONTRAST CLINICAL INFORMATION: SBO,can't tolerate PO, hx. lung CA concern for met COMPARISON: 12/14/2023 TECHNIQUE: Multidetector volumetric images were obtained from the superior aspect of the liver through the pubic symphysis following administration 85 mL of Omnipaque 350 intravenous contrast. Sagittal and coronal reformatted images were obtained on the technologist's workstation. Oral contrast: No This CT examination was performed using dose optimization techniques as appropriate, variously including the following: *Automated exposure control *Adjustment of mA and/or kV according to patient size (this includes techniques or standardized protocols for targeted exams where dose is matched to indication/reason for exam; i.e. extremities or head) *Use of iterative reconstruction technique DLP: 274 mGy-cm FINDINGS: LUNG BASES: The visualized lung bases are unremarkable. LIVER, GALLBLADDER, AND BILIARY TREE: The liver is normal in size, shape, and attenuation. No focal hepatic lesion or biliary ductal dilatation is present. Similar appearance of the geographic area of decreased attenuation in segment 4 of the liver adjacent to the falciform likely focal perfusional abnormality versus focal fatty infiltration. The gallbladder is unremarkable with no evidence of radiopaque gallstones, gallbladder wall thickening, or obvious pericholecystic inflammatory changes. PANCREAS: Unremarkable. SPLEEN: Unremarkable. ADRENAL GLANDS: Unremarkable. KIDNEYS AND URETERS: The kidneys are normal in size, shape, and attenuation. No hydronephrosis, hydroureter, or calculi seen. No perinephric stranding. BLADDER: Unremarkable. GASTROINTESTINAL TRACT: The small and large bowel are unremarkable. The appendix is unremarkable. ABDOMINAL WALL: No significant hernia is appreciated. LYMPH NODES: Normal. VASCULAR: Moderate to severe mixed calcified and noncalcified atherosclerotic plaque throughout the abdominal aorta. Extensive atherosclerotic disease in the iliac arteries. PELVIC VISCERA: Unremarkable. OSSEOUS STRUCTURES: Chronic severe compression deformity at L5 with mild bony retropulsion. The bones are demineralized. CT/CT abdomen pelvis w IV con IMPRESSION: 1. No evidence of metastatic disease in the abdomen or pelvis. 2. No small bowel obstruction 3. Extensive atherosclerotic disease. 4. Chronic severe compression deformity at L5. Fleischner guidelines were followed. Electronically signed by: Demar Sanders MD 01/03/2024 05:57 PM EDT
--- NOTE | ~2024-01-03 | XR_ITS ---
EXAMINATION: XR CHEST CLINICAL INFORMATION: Shortness of breath. COMPARISON: Chest radiograph 10/07/2023. TECHNIQUE: Frontal view of the chest was obtained. FINDINGS: Left-sided chest port tip terminates over the expected location of the proximal right atrium. Normal appearance of the cardiomediastinal silhouette. No focal consolidation, pleural effusion or pneumothorax. Trace bibasilar subsegmental atelectasis. No acute osseous findings. XR/XR chest 1V IMPRESSION: Trace bibasilar subsegmental atelectasis. No focal consolidation. No pleural effusion or pneumothorax. Electronically signed by: Ernestina Kang MD 01/03/2024 03:04 PM EDT
[2024-01-03 12:23] VITALS: BP 111/74; BP 174/101; PULSE 74; PULSE 76; RESP 14; TEMP 36.7; O2SAT 99; BMI 21.8
[2024-01-03 12:29] VITALS: BP 147/99; PULSE 74; RESP 16; O2SAT 99
--- NOTE | 2024-01-03 12:36 | PC.NURSE ---
20G inserted to LAC. Tolerated well. Good blood return.
--- NOTE | 2024-01-03 12:56 | ECG_ITS ---
Test Reason : SOB Blood Pressure : / mmHG Vent. Rate : 067 BPM Atrial Rate : 067 BPM P-R Int : 194 ms QRS Dur : 098 ms QT Int : 434 ms P-R-T Axes : -02 102 039 degrees QTc Int : 458 ms Normal sinus rhythm Rightward axis Borderline ECG When compared with ECG of 28-DEC-2023 11:10, QRS axis Shifted right Referred By: Rosa Barry Electronically Signed By:URIEL JONES
[2024-01-03 13:16] LABS: MANUAL DIFF FLAG NO
[2024-01-03 13:20] LABS: Basophils Percent Auto 0.4 % (0-2); Eosinophils Percent Auto 0.6 % (0-4); Hematocrit 30.5 % (37.0-47.0); Hemoglobin 10.8 g/dl (12.0-16.0); Imm Gran Abs Auto 0.02 X10*3/uL (0.00-0.03); Imm Gran Pct Auto 0.4 % (0.0-0.4); Lymphocytes Percent Auto 21.1 % (20-40); Mean Corpuscular HGB Conc 35.4 g/dl (31.0-35.0); Mean Corpuscular Hemoglobin 32.3 pg (27.0-33.0); Mean Corpuscular Volume 91.3 fL (80.0-98.0); Mean Platelet Volume 8.7 fL (9.4-12.3); Monocytes Absolute Auto 0.5 X10*3/uL (0.1-1.2); Monocytes Percent Auto 9.9 % (2-11); Neutrophils Absolute Auto 3.3 x10*3/uL (2.0-8.3); Neutrophils Percent Auto 67.6 % (45-73); Red Blood Count 3.34 X10*6/uL (4.20-5.50); White Blood Count 4.8 X10*3/uL (4.8-10.8)
[2024-01-03 13:21] LABS: Platelet Count 84 X10*3/uL (160-400)
[2024-01-03 13:27] LABS: Prothrombin Time 12.1 SEC (10.9-12.4)
[2024-01-03 13:32] LABS: Alanine Aminotransferase 7 U/L (0-31); Albumin Level 4.3 g/dL (3.5-5.0); Alkaline Phosphatase 59 U/L (39-117); Anion Gap 16 (12-20); Aspartate Amino Transferase 15 U/L (5-31); Bilirubin Total 0.6 mg/dL (0.0-1.0); Blood Urea Nitrogen 10 mg/dL (9-16); Calcium 9.9 mg/dL (8.4-10.2); Carbon Dioxide 22 mmol/L (22-29); Chloride 104 mmol/L (96-108); Estimated Glomerular Filt Rate > 60; Glucose Random 113 mg/dL (60-115); Magnesium 1.5 mg/dL (1.6-2.6); Potassium 3.8 mmol/L (3.3-5.1); Sodium 138 mmol/L (135-145); Total Protein 6.7 g/dL (6.5-8.0)
[2024-01-03 13:36] LABS: B Type Natriuretic Peptide 205 pg/mL (<100)
[2024-01-03 13:40] LABS: Troponin-I High Sensitivity 3.1 ng/L (<3.5-17.0)
[2024-01-03 13:58] LABS: Influenza A PCR NEGATIVE (Negative); Influenza B PCR NEGATIVE (Negative); Resp Syncy Virus RNA Qual PCR NEGATIVE (Negative); SARS COV2 PCR INHOUSE NEGATIVE (Negative)
[2024-01-03 14:40] VITALS: BP 137/74; PULSE 61; RESP 16; TEMP 36.8; O2SAT 100
[2024-01-03 14:40] LABS: Venous Blood Gas Refer to POC result
[2024-01-03 14:41] LABS: VBG Base Excess 2.9 mmol/L; VBG HCO3 28 mmol/L (22-26); VBG pCO2 49 mmHg; VBG pH 7.37 (7.32-7.43); VBG pO2 35 mmHg
--- NOTE | 2024-01-03 16:49 | ED_ITS ---
HPI - SOB/Dyspnea General Chief Complaint: Dyspnea Stated Complaint: SOB STARTED THIS AM Time Seen by Provider: 01/03/24 16:11 Source: patient Limitations: no limitations History of Present Illness ED Provider: Tari Serra PA-C HPI Narrative: 63-year-old female with a history of small-cell lung cancer currently on chemotherapy about to initiate immunotherapy, COPD on 2 L nasal cannula at baseline, ongoing tobacco abuse, prior IV drug abuse, hep C, presents with shortness of breath and nausea vomiting. In regard to the shortness of breath, patient always has shortness of breath. She denies new cough or cold symptoms or fevers. Patient states she was seen here 3 days ago, diagnosed with a urinary tract infection placed on linezolid. Patient states she has been unable to tolerate the medication or PO intake. Associated reflux symptoms. Patient states she had recent endoscopy, and was started on a PPI. Related Data Home Medications ?Medication ?Instructions ?Recorded ?Confirmed alosetron 0.5 mg tablet 1 mg PO DAILY@89907/22/23 12/31/23 cholecalciferol (vitamin D3) 50 50 mcg PO DAILY@89907/22/23 12/31/23 mcg (2,000 unit) capsule solifenacin 10 mg tablet 10 mg PO DAILY@89907/22/23 12/31/23 sucralfate 1 gram tablet (Carafate) 4 g PO DAILY@1200 07/25/23 12/31/23 budesonide 180 mcg/actuation 2 inh inhalation BID 09/28/23 12/31/23 breath activated powder inhaler (Pulmicort Flexhaler) dexamethasone 4 mg tablet 4 mg PO WETH 10/21/23 12/31/23 metoclopramide HCl 5 mg tablet 5 mg PO TIDAC 12/14/23 12/31/23 mirtazapine 30 mg tablet 15 mg PO BEDTIME 12/27/23 12/31/23 sennosides 8.6 mg-docusate sodium 1 tab PO BEDTIME PRN Constipation 12/27/23 12/31/23 50 mg tablet (Senexon-S) pantoprazole 40 mg tablet,delayed 80 mg PO BID 12/30/23 12/31/23 release Previous Rx's ?Medication ?Instructions ?Recorded albuterol sulfate 90 mcg/actuation 1 puff PO Q6H PRN shortness of 03/20/23 aerosol inhaler (Ventolin HFA) breath or wheezing 30 days #8.5 grams hydroxyzine HCl 50 mg tablet 50 mg PO BEDTIME #90 tabs 05/21/23 nicotine 14 mg/24 hr daily 1 patch transdermal Q24H smoking 08/17/23 transdermal patch 28 days #28 ea fluticasone propionate 50 1 spray intranasal DAILY 30 days 09/11/23 mcg/actuation nasal #16 grams spray,suspension loperamide 2 mg capsule 2 mg PO Q6H PRN Diarrhea #14 caps 10/09/23 diphenoxylate-atropine 2.5 1 tab PO DAILY PRN Diarrhea #30 10/14/23 mg-0.025 mg tablet (Lomotil) tabs nicotine (polacrilex) 4 mg buccal 4 mg buccal Q8H PRN Anxiety #60 ea 10/14/23 lozenge metoprolol succinate 50 mg 50 mg PO DAILY #90 tabs 11/22/23 tablet,extended release 24 hr tiotropium bromide 18 mcg capsule 1 cap inhalation DAILY #30 ea 11/23/23 with inhalation device (Spiriva with HandiHaler) potassium chloride 20 mEq 20 meq PO DAILY #30 tabs 12/08/23 tablet,extended release (K-Tab) hydrocortisone 2.5 % topical cream 1 appl ID BID #30 grams 12/17/23 with perineal applicator (Proctozone-HC) magnesium 250 mg tablet 250 mg PO BID #180 tabs 12/17/23 sodium chloride 1,000 mg soluble 1,000 mg PO BID #180 tabs 12/17/23 tablet ondansetron 8 mg disintegrating 8 mg PO Q8H PRN Nausea And 12/24/23 tablet Vomiting #30 tabs clonazepam 0.5 mg tablet 0.5 mg PO BID PRN Anxiety #60 tabs 12/31/23 linezolid 600 mg tablet 600 mg PO BID #12 tabs 01/01/24 oxycodone 5 mg tablet 5 mg PO Q6H PRN pain #30 tabs 01/01/24 Allergies Allergy/AdvReac Type Severity Reaction Status Date / Time No Known Allergies Allergy Unknown unknown Verified 01/03/24 12:25 [NO KNOWN ALLERGIES] Review of Systems 2 Review of Systems: Yes all other systems are reviewed and are negative Constitutional: Constitutional: Denies fever(s) Cardiovascular: Cardiovascular: Denies chest pain Gastrointestinal: Gastrointestinal: Reports dyspepsia, Reports heartburn, Reports nausea and Reports vomiting [facility] Past Medical History Attestation statement: The following information was validated with the patient. Medical History Small cell lung cancer COPD (chronic obstructive pulmonary disease) Small cell lung cancer (~08/2023) MDD (major depressive disorder), recurrent episode, moderate Abnormal CT scan, chest Mass of right lung Lung mass Bronchitis Rectal prolapse Nicotine dependence, cigarettes, uncomplicated Nonrheumatic mitral (valve) insufficiency Pulmonary nodule History of hepatitis C Osteopenia (~2011) IV drug user Endocarditis of mitral valve (~11/2017) Mitral valve prolapse Mitral regurgitation Early satiety Paresthesia of left leg Allergic rhinitis Facet arthritis of lumbar region Cervical spondylosis Vitamin D deficiency Pure hypercholesterolemia Benign essential hypertension GERD (gastroesophageal reflux disease) Anxiety Surgical History History of bronchoscopy (~2023) History of liver biopsy (~2009) History of partial colectomy (~2014) History of hysteroscopy (~2010) History of colonoscopy (~2017) Family History Family History Father Internal bleeding Mother Medical history unknown Social History Social History Household Members: Children Housing: House Housing Other:: lives alone with her cat Gizjames Are you a primary healthcare prof to a significant other at home: No Do you presently have visiting nurse or other home services: Yes ([facility]) Alcohol intake: former Patient Tobacco Use Status: Current everyday Tobacco user Tobacco use type: Cigarette Cigarette Packs Per Day: 5 Years Smoked: 45 years (onset 15, 1/2-3/4ppd x 45yrs, 28pyh) Smoked in Last 30 Days: Yes e-Cigarette/Vaping Use: Never Used Second Hand Smoke Exposure: Yes Use of substances other than those prescribed or required for medical reasons: No Substance Use Type: Marijuana Advance Directives: No Advance Directives Information Provided: No Advance Directives Date on File: 09/23/23 Do you have a plan to hurt others: No Plan service: No Current occupational status: unemployed Sexual orientation: Straight/Heterosexual Gender identity: Female Cognitive needs: No Hearing needs: No Vision needs: Yes Physical Exam 2 Vital Signs: Vital Signs: Last Vital Signs Temp 98.5 F 01/03/24 21:56 Pulse 79 01/03/24 21:56 Resp 18 01/03/24 21:56 BP 153/62 H 01/03/24 21:56 Pulse Ox 99 01/03/24 21:56 O2 Del Method Nasal Cannula 01/03/24 21:56 O2 Flow Rate 2 01/03/24 21:56 Oxygen Flow Rate 2 01/03/24 12:23 BMI result Body Mass Index 21.8 Const: Other: Awake, ill in appearance, cachectic Orientation/consciousness: patient oriented x3 HEENT: Other: Dry oral mucosa, actively vomiting Resp: Effort & Inspection: normal respiratory effort Cardio: Other: Normal peripheral perfusion GI: Other: Abdomen is soft, nondistended, mild tenderness with palpation of epigastric and right upper quadrant, no guarding Skin: Other: Warm dry no rash Neuro: General: patient oriented x3, no focal motor deficits and CN's II-XI intact bilaterally Psych: Other: Calm cooperative Course Reevaluation(s) Reevaluation #1: Despite being medicated, she remains with intractable nausea vomiting. I will admit her to the hospital. and start IV antibiotics for her UTI Medications Administered Generic Name Dose Route Start Last Admin Trade Name Freq PRN Reason Stop Dose Admin Enoxaparin Sodium 40 mg 01/03/24 20:00 01/03/24 21:44 Enoxaparin Sodium 40 Mg/0.4 Ml Syringe SUBCUT 40 mg Q24H MANUEL Administration Lactated Ringer's 1,000 mls @ 80 mls/hr 01/03/24 19:45 01/03/24 21:01 Lr IVCONT 80 mls/hr .[id number] MANUEL Administration Daptomycin 450 mg/ Sodium 59 mls @ 118 mls/hr 01/03/24 22:00 01/03/24 22:31 Chloride IV Infused Q24H MANUEL Infusion Sodium Chloride 3 ml 01/04/24 00:00 01/04/24 00:38 0.9 % Sodium Chloride Flush 3 Ml Syringe IVFLUSH Not Given QSHIFT MANUEL Discontinued Medications Generic Name Dose Route Start Last Admin Trade Name Freq PRN Reason Stop Dose Admin Magnesium Sulfate 2 gm in 50 mls @ 25 mls/hr 01/03/24 16:51 01/03/24 20:00 Magnesium Sulfate/H2o IV 01/03/24 18:50 Infused ONCE ONE Infusion Sodium Chloride 500 mls @ 500 mls/hr 01/03/24 17:13 01/03/24 19:40 Ns IV 01/03/24 18:12 Infused .Q1H ONE Infusion Iohexol 100 ml 01/03/24 17:41 01/03/24 17:41 Iohexol 350 Mg/Ml 100 Ml Infus..Btl IV 01/03/24 17:42 85 ml ONCE ONE Administration Lorazepam 1 mg 01/03/24 19:18 01/03/24 19:40 Lorazepam 2 Mg/Ml Vial IVPUSH 01/03/24 19:19 1 mg ONCE ONE Administration Ondansetron HCl 4 mg 01/03/24 17:13 01/03/24 17:57 Ondansetron Hcl 4 Mg/2 Ml Vial IVPUSH 01/03/24 17:14 4 mg ONCE ONE Administration Sucralfate 1 gm 01/03/24 17:13 01/03/24 17:57 Sucralfate Oral Suspension 1 Gm/10 Ml Oral.Susp PO 01/03/24 17:14 1 gm ONCE ONE Administration Medical Decision Making Medical Decision Making MDM Narrative: 63-year-old female with a history of small-cell lung cancer currently on chemotherapy about to initiate immunotherapy, COPD on 2 L nasal cannula at baseline, ongoing tobacco abuse, prior IV drug abuse, hep C, presents with shortness of breath and nausea vomiting. In regard to the shortness of breath, patient always has shortness of breath. She denies new cough or cold symptoms or fevers. Patient states she was seen here 3 days ago, diagnosed with a urinary tract infection placed on linezolid. Patient states she has been unable to tolerate the medication or PO intake. Associated reflux symptoms. Patient states she had recent endoscopy, and was started on a PPI. Problem: Active lung cancer amidst chemotherapy, age, oxygen requirement History: Per patient I have considered the following differential diagnoses: Bowel obstruction, bowel perforation, biliary colic, cholecystitis, gastritis, metastatic disease, medication adverse reaction Plan: In regard to the shortness of breath, there was truly no change in her symptoms. Screening labs including a chest x-ray and viral panel were obtained from triage, there are no abnormalities. She does not have a new oxygen requirement. In regard to the nausea vomiting, these are side effects consistent with the use of linezolid, and they began after the use of this antibiotic. However, she is also having abdominal discomfort. Given she has an active cancer patient, I am going to scan her abdomen. This could be something biliary, she does have upper abdominal discomfort, she has poorly controlled GERD, perhaps she has viral gastritis. We will try Carafate and Zofran to help her symptoms. I have independently reviewed the following tests: Labs: No leukocytosis, not anemic, she is not neutropenic, no electrolyte abnormality beyond magnesium which is 1.5, her blood count she is alkalotic, which is expected with her tachypnea, pCO2 25, bicarb 19, viral panel negative, she was screened for RSV, influenza and COVID Chest x-ray: XR CHEST CLINICAL INFORMATION: Shortness of breath. COMPARISON: Chest radiograph 10/07/2023. TECHNIQUE: Frontal view of the chest was obtained. FINDINGS: Left-sided chest port tip terminates over the expected location of the proximal right atrium. Normal appearance of the cardiomediastinal silhouette. No focal consolidation, pleural effusion or pneumothorax. Trace bibasilar subsegmental atelectasis. No acute osseous findings. XR/XR chest 1V IMPRESSION: Trace bibasilar subsegmental atelectasis. No focal consolidation. No pleural effusion or pneumothorax. Electronically signed by: Ernestina Kang MD 01/03/2024 03:04 PM EDT EKG: Normal sinus rhythm, rate of 67, rightward axis, QTC 458, no ectopy, no ischemic changes CT abd/pelvis: CT ABDOMEN AND PELVIS WITH CONTRAST CLINICAL INFORMATION: SBO,can't tolerate PO, hx. lung CA concern for met COMPARISON: 12/14/2023 TECHNIQUE: Multidetector volumetric images were obtained from the superior aspect of the liver through the pubic symphysis following administration 85 mL of Omnipaque 350 intravenous contrast. Sagittal and coronal reformatted images were obtained on the technologist's workstation. Oral contrast: No This CT examination was performed using dose optimization techniques as appropriate, variously including the following: *Automated exposure control *Adjustment of mA and/or kV according to patient size (this includes techniques or standardized protocols for targeted exams where dose is matched to indication/reason for exam; i.e. extremities or head) *Use of iterative reconstruction technique DLP: 274 mGy-cm FINDINGS: LUNG BASES: The visualized lung bases are unremarkable. LIVER, GALLBLADDER, AND BILIARY TREE: The liver is normal in size, shape, and attenuation. No focal hepatic lesion or biliary ductal dilatation is present. Similar appearance of the geographic area of decreased attenuation in segment 4 of the liver adjacent to the falciform likely focal perfusional abnormality versus focal fatty infiltration. The gallbladder is unremarkable with no evidence of radiopaque gallstones, gallbladder wall thickening, or obvious pericholecystic inflammatory changes. PANCREAS: Unremarkable. SPLEEN: Unremarkable. ADRENAL GLANDS: Unremarkable. KIDNEYS AND URETERS: The kidneys are normal in size, shape, and attenuation. No hydronephrosis, hydroureter, or calculi seen. No perinephric stranding. BLADDER: Unremarkable. GASTROINTESTINAL TRACT: The small and large bowel are unremarkable. The appendix is unremarkable. ABDOMINAL WALL: No significant hernia is appreciated. LYMPH NODES: Normal. VASCULAR: Moderate to severe mixed calcified and noncalcified atherosclerotic plaque throughout the abdominal aorta. Extensive atherosclerotic disease in the iliac arteries. PELVIC VISCERA: Unremarkable. OSSEOUS STRUCTURES: Chronic severe compression deformity at L5 with mild bony retropulsion. The bones are demineralized. CT/CT abdomen pelvis w IV con IMPRESSION: 1. No evidence of metastatic disease in the abdomen or pelvis. 2. No small bowel obstruction 3. Extensive atherosclerotic disease. 4. Chronic severe compression deformity at L5. Fleischner guidelines were followed. Electronically signed by: Demar Sanders MD 01/03/2024 05:57 PM EDT Lab Data 01/03/24 13:11 01/03/24 13:11 Labs: Lab Results 01/03/24 01/03/24 01/03/24 Range/Units 13:10 13:11 14:36 WBC 4.8 (4.8-10.8) X10*3/uL RBC 3.34 L (4.20-5.50) X10*6/uL Hgb 10.8 L (12.0-16.0) g/dl Hct 30.5 L (37.0-47.0) % MCV 91.3 D (80.0-98.0) fL MCH 32.3 (27.0-33.0) pg MCHC 35.4 H (31.0-35.0) g/dl RDW 18.0 H (11.0-16.0) % Plt Count 84 L D (160-400) X10*3/uL MPV 8.7 L (9.4-12.3) fL Immature Gran % (Auto) 0.4 (0.0-0.4) % Neut % (Auto) 67.6 (45-73) % Lymph % (Auto) 21.1 (20-40) % Ellis % (Auto) 9.9 (2-11) % Eos % (Auto) 0.6 (0-4) % Baso % (Auto) 0.4 (0-2) % Lymph # (Auto) 1.0 L (1.2-4.9) X10*3/uL Ellis # (Auto) 0.5 (0.1-1.2) X10*3/uL Eos # (Auto) 0.0 (0.0-0.4) X10*3/uL Baso # (Auto) 0.0 (0.0-0.2) X10*3/uL Abs Immat Gran (auto) 0.02 (0.00-0.03) X10*3/uL Absolute Neuts (auto) 3.3 (2.0-8.3) x10*3/uL Absolute Nucleated RBC 0.000 (0.0-0.012) X10*3/uL Nucleated RBC % (auto) 0.0 (0.0-0.2) /100WBC PT 12.1 (10.9-12.4) SEC INR 1.0 (0.9-1.1) VBG pH 7.37 (7.32-7.43) VBG pCO2 49 mmHg VBG pO2 35 mmHg VBG HCO3 28 H (22-26) mmol/L VBG O2 Saturation 47.0 % VBG Base Excess 2.9 mmol/L Sodium 138 (135-145) mmol/L Potassium 3.8 (3.3-5.1) mmol/L Chloride 104 (96-108) mmol/L Carbon Dioxide 22 (22-29) mmol/L Anion Gap 16 (12-20) BUN 10 (9-16) mg/dL Creatinine 0.68 (0.5-1.4) mg/dL Estim Creat Clear Calc 66.0 Estimated GFR > 60 Random Glucose 113 (60-115) mg/dL Calcium 9.9 (8.4-10.2) mg/dL Magnesium 1.5 L (1.6-2.6) mg/dL Total Bilirubin 0.6 (0.0-1.0) mg/dL AST 15 (5-31) U/L ALT 7 (0-31) U/L Alkaline Phosphatase 59 (39-117) U/L Troponin I High Sens 3.1 (<3.5-17.0) ng/L B-Natriuretic Peptide 205 H (<100) pg/mL Total Protein 6.7 (6.5-8.0) g/dL Albumin 4.3 (3.5-5.0) g/dL Influenza Type A (PCR) NEGATIVE (Negative) Influenza Type B (PCR) NEGATIVE (Negative) RSV RNA Qual (PCR) NEGATIVE (Negative) SARS-CoV-2 RNA (RT-PCR) NEGATIVE (Negative) Discharge Plan Discharge Clinical Impression: Intractable nausea and vomiting, UTI (urinary tract infection), Small cell lung cancer Patient Disposition: Admitted As Inpatient
[2024-01-03] MEDS: iohexoL 350 MG/ML 100 ML INFUS..BTL IV (17:41)
[2024-01-03] MEDS: Magnesium Sulfate/H2O 2 GM/50 ML PIGGYBACK IV (17:57)
[2024-01-03] MEDS: ondansetron HCL 4 MG/2 ML VIAL IVPUSH (17:57)
[2024-01-03] MEDS: Sucralfate Oral Suspension 1 GM/10 ML ORAL.SUSP PO (17:57)
[2024-01-03] MEDS: 0.9 % Sodium Chloride 500 ML IV (17:58)
[2024-01-03 18:43] VITALS: BP 149/63; PULSE 61; RESP 16; TEMP 36.8; O2SAT 100
--- NOTE | 2024-01-03 19:00 | PC.NURSE ---
Report given to Tanja Murry RN
[2024-01-03] MEDS: LORazepam 2 MG/ML VIAL 1 MG IVPUSH (19:40)
--- NOTE | 2024-01-03 19:51 | PM.IMHP ---
History of Present Illness Date of Service: 01/03/24 Attending physician on admission: Sonya Lee Chief Complaint: n/v/d 63-year-old female with PMH of COPD on 2L, metastatic small-cell lung cancer on Chemo, SIADH, GERD, IBS, rectal prolapse, chronic iron-deficiency anemia, internal hemorrhoids presented to the ED from home for evaluation of intractable nausea and vomiting as well as intermittent diarrhea/soft stool ongoing for 2 days. She was called from the ED on thursday after growing VRE in her urine and was started on PO linezolid on thursday. She started with the n/v/d the next day. Has had sweats and chills but no fevers. No abd pain, melena, hematochezia. She also endorses diffuse headache, but no vision changes, lightheadedness, paresthesias, weakness, sob, chest pain. VSS. No leukocytosis, chronic baseline anemia and thrombocytopenia stable. Renal function and lytes wnl except Mg 1.5. Negative covid, flu, rsv. CXR shows trace atelectasis but no focal consolidation, effusions, or edema. CT abd pelvis negative for acute intraabdominal abn. There is a chronic severe compression deformity at L5 with extensive atherosclerotic disease. In the ED, given IVF, IV mag, carafate, ondansetron, and lorazepam. Despite this, continues iwth n/v and unable to tolerate PO. Review of Systems Review of Systems: Yes all other systems are reviewed and are negative [facility] Medical History Small cell lung cancer COPD (chronic obstructive pulmonary disease) Small cell lung cancer (~08/2023) MDD (major depressive disorder), recurrent episode, moderate Abnormal CT scan, chest Mass of right lung Lung mass Bronchitis Rectal prolapse Nicotine dependence, cigarettes, uncomplicated Nonrheumatic mitral (valve) insufficiency Pulmonary nodule History of hepatitis C Osteopenia (~2011) IV drug user Endocarditis of mitral valve (~11/2017) Mitral valve prolapse Mitral regurgitation Early satiety Paresthesia of left leg Allergic rhinitis Facet arthritis of lumbar region Cervical spondylosis Vitamin D deficiency Pure hypercholesterolemia Benign essential hypertension GERD (gastroesophageal reflux disease) Anxiety Family History Father Internal bleeding Mother Medical history unknown Surgical History History of bronchoscopy (~2023) History of liver biopsy (~2009) History of partial colectomy (~2014) History of hysteroscopy (~2010) History of colonoscopy (~2017) Social History Household Members: Children Housing: House Housing Other:: lives alone with her cat Malena Are you a primary adult care provider to a significant other at home: No Do you presently have visiting nurse or other home services: Yes ([facility] HOME ON FOR POSS SERVICES) Alcohol intake: former Patient Tobacco Use Status: Current everyday Tobacco user Tobacco use type: Cigarette Cigarette Packs Per Day: 5 Years Smoked: 45 years (onset 15, 1/2-3/4ppd x 44yrs, 28pyh) Smoked in Last 30 Days: Yes e-Cigarette/Vaping Use: Never Used Second Hand Smoke Exposure: Yes Use of substances other than those prescribed or required for medical reasons: No Substance Use Type: Marijuana Advance Directives: No Advance Directives Information Provided: No Advance Directives Date on File: 09/23/23 Do you have a plan to hurt others: No Plan service: No Current occupational status: unemployed Sexual orientation: Straight/Heterosexual Gender identity: Female Cognitive needs: No Hearing needs: No Vision needs: Yes Meds Allergies Allergy/AdvReac Type Severity Reaction Status Date / Time No Known Allergies Allergy Unknown unknown Verified 01/03/24 12:25 [NO KNOWN ALLERGIES] Active Medications: Current Medications Acetaminophen (Acetaminophen 325 Mg Tablet) 650 mg PO Q6H PRN PRN Reason: Pain, Mild (Pain Scale 1-3), fever or headache Calcium Carbonate (Calcium Carbonate 750 Mg Tab.Chew) 750 mg PO Q4H PRN PRN Reason: Heartburn Enoxaparin Sodium (Enoxaparin Sodium 40 Mg/0.4 Ml Syringe) 40 mg SUBCUT Q24H [facility] Lactated Ringer's (Lr) 1,000 mls @ 100 mls/hr IVCONT .Q10H [facility] Daptomycin 431.816 mg/ Sodium (Chloride) 58.6363 mls @ 100 mls/hr IV Q24H [facility] Magnesium Hydroxide (Milk Of Magnesia 30 Ml Oral.Susp) 30 ml PO DAILY PRN PRN Reason: Constipation Melatonin (Melatonin 3 Mg Tablet) 6 mg PO BEDTIME PRN PRN Reason: Insomnia Nicotine (Nicotine 7 Mg Patch.Td24) 7 mg TRANSDERMA DAILY [facility] Ondansetron HCl (Ondansetron Hcl 4 Mg/2 Ml Vial) 4 mg IVPUSH Q8H PRN PRN Reason: Nausea and Vomiting Sodium Chloride (0.9 % Sodium Chloride Flush 3 Ml Syringe) 3 ml IVFLUSH QSHIFT [facility] Home Medications ?Medication ?Instructions ?Recorded ?Confirmed ?Last Taken ?Type alosetron 0.5 mg tablet 1 mg PO DAILY@0907/22/23 12/31/23 12/28/23 History cholecalciferol (vitamin D3) 50 50 mcg PO DAILY@89907/22/23 12/31/23 12/28/23 History mcg (2,000 unit) capsule solifenacin 10 mg tablet 10 mg PO DAILY@89907/22/23 12/31/23 12/28/23 History sucralfate 1 gram tablet (Carafate) 4 g PO DAILY@1200 07/25/23 12/31/23 12/28/23 History budesonide 180 mcg/actuation 2 inh inhalation BID 09/28/23 12/31/23 12/28/23 History breath activated powder inhaler (Pulmicort Flexhaler) dexamethasone 4 mg tablet 4 mg PO WETH 10/21/23 12/31/23 Unknown History metoclopramide HCl 5 mg tablet 5 mg PO TIDAC 12/14/23 12/31/23 12/28/23 History mirtazapine 30 mg tablet 15 mg PO BEDTIME 12/27/23 12/31/23 12/27/23 History sennosides 8.6 mg-docusate sodium 1 tab PO BEDTIME PRN Constipation 12/27/23 12/31/23 Unknown History 50 mg tablet (Senexon-S) pantoprazole 40 mg tablet,delayed 80 mg PO BID 12/30/23 12/31/23 Unknown History release Physical Exam Vital Signs and Narrative: Vital Signs: Last Vital Signs Temp 98.3 F 01/03/24 18:43 Pulse 61 01/03/24 18:43 Resp 16 01/03/24 18:43 BP 149/63 H 01/03/24 18:43 Pulse Ox 100 01/03/24 18:43 O2 Del Method Nasal Cannula 01/03/24 18:43 O2 Flow Rate 2 01/03/24 18:43 Oxygen Flow Rate 2 01/03/24 12:23 BMI result Body Mass Index 21.8 Constitutional - Awake, weak appaearing, No apparent distress Eyes - PERRLA, EOMI Cardiovascular - S1S2, RRR, No edema Respiratory - Normal lung expansion, Normal respiratory effort, No respiratory distress, CTA bilaterally Gastrointestinal - mild diffuse ttp. ND; +BS; No rebound or guarding Extremities - no calf tenderness bilaterally, no swelling Skin - Warm/Dry Neurological - Alert & oriented x3 Results Labs 01/03/24 13:11 01/03/24 13:11 Labs: Laboratory Results - last 24 hr 01/03/24 01/03/24 01/03/24 13:10 13:11 14:36 MCV 91.3 D MCH 32.3 MCHC 35.4 H RDW 18.0 H Plt Count 84 L D MPV 8.7 L Immature Gran % (Auto) 0.4 Neut % (Auto) 67.6 Lymph % (Auto) 21.1 Colbert % (Auto) 9.9 Eos % (Auto) 0.6 Baso % (Auto) 0.4 Lymph # (Auto) 1.0 L Colbert # (Auto) 0.5 Eos # (Auto) 0.0 Baso # (Auto) 0.0 Abs Immat Gran (auto) 0.02 Absolute Neuts (auto) 3.3 Absolute Nucleated RBC 0.000 Nucleated RBC % (auto) 0.0 PT 12.1 INR 1.0 VBG pH 7.37 VBG pCO2 49 VBG pO2 35 VBG HCO3 28 H VBG O2 Saturation 47.0 VBG Base Excess 2.9 Anion Gap 16 Estim Creat Clear Calc 66.0 Estimated GFR > 60 Random Glucose 113 Calcium 9.9 Magnesium 1.5 L Total Bilirubin 0.6 AST 15 ALT 7 Alkaline Phosphatase 59 Troponin I High Sens 3.1 B-Natriuretic Peptide 205 H Total Protein 6.7 Albumin 4.3 Influenza Type A (PCR) NEGATIVE Influenza Type B (PCR) NEGATIVE RSV RNA Qual (PCR) NEGATIVE SARS-CoV-2 RNA (RT-PCR) NEGATIVE Imaging Radiologist's Impressions: Impressions Chest X-Ray 01/03/24 12:59 IMPRESSION: Trace bibasilar subsegmental atelectasis. No focal consolidation. No pleural effusion or pneumothorax. Electronically signed by: Ernestina Kang MD 01/03/2024 03:04 PM EDT RP Abdomen/Pelvis CT 01/03/24 17:13 IMPRESSION: 1. No evidence of metastatic disease in the abdomen or pelvis. 2. No small bowel obstruction 3. Extensive atherosclerotic disease. 4. Chronic severe compression deformity at L5. Fleischner guidelines were followed. Electronically signed by: Demar Sanders MD 01/03/2024 05:57 PM EDT RP Assessment and Plan (1) Intractable nausea and vomiting: Status: Acute Plan 63-year-old female with PMH of COPD on 2L, metastatic small-cell lung cancer on Chemo, SIADH, GERD, IBS, rectal prolapse, chronic iron-deficiency anemia, internal hemorrhoids to be observed for intractable nausea and vomiting #Intractable nausea and vomiting and diarrhea -likely adverse reaction to linezolid -IV antiemetics prn -Continue gentle IVF -clear liquid diet -MOnitor renal function/lytes #Acute diarrhea -in setting of abx use -check cdiff pcr #Acute hypomagnesemia -likely r/t GI losses #Acute VRE UTI -unable to tolerate PO linezolid -IV dapto- initiated 01.02 # small-cell lung cancer -oncology consult -follows with dr koenig. starting immunotherapy this week # SIADH -fluid restrictions #HTN -continue metoprolol #GERD -continue ppi, sucrafate #Nicotine dependence -patch for nrt, cessation advised dvt prophylaxis- lovenox full code Quality Stroke Does the patient have a stroke diagnosis?: No VTE Prior VTE?: No VTE Risk Level:: Medical - moderate - high VTE Device Contraindication: Treatment Not Indicated VTE Drug Contraindication: N/A - Med Ordered
[2024-01-03] MEDS: Lactated Ringers 1,000 ML 80 ML IVCONT (21:01)
[2024-01-03] MEDS: Enoxaparin Sodium 40 MG/0.4 ML SYRINGE SUBCUT (21:44)
[2024-01-03] MEDS: DAPTOmycin 450 MG in 0.9 % Sodium Chloride 50 ML 118 MG IV (21:45)
[2024-01-03 21:56] VITALS: BP 153/62; PULSE 79; RESP 18; TEMP 36.9; O2SAT 99
--- NOTE | 2024-01-03 21:57 | PC.NURSE ---
Patient medicated per MAR, no complaints at present. VSS. Call miller in patient's reach, plan of care ongoing.
[2024-01-03 23:03] LABS: CDiff Gene PCR NEGATIVE (Negative)
[2024-01-04] VITALS (7 sets, daily range): BP systolic 160–181; BP diastolic 77–84; PULSE 57–78; RESP 16–22; TEMP 36.5–36.8; O2SAT 97–98; BMI 21.9
[2024-01-04 05:24] LABS: MANUAL DIFF FLAG NO
[2024-01-04 05:26] LABS: Basophils Percent Auto 1.2 % (0-2); Eosinophils Absolute Auto 0.1 X10*3/uL (0.0-0.4); Eosinophils Percent Auto 1.5 % (0-4); Hematocrit 27.5 % (37.0-47.0); Imm Gran Abs Auto 0.02 X10*3/uL (0.00-0.03); Imm Gran Pct Auto 0.6 % (0.0-0.4); Lymphocytes Absolute Auto 1.2 X10*3/uL (1.2-4.9); Lymphocytes Percent Auto 34.5 % (20-40); Mean Corpuscular HGB Conc 32.7 g/dl (31.0-35.0); Mean Corpuscular Hemoglobin 31.4 pg (27.0-33.0); Mean Corpuscular Volume 95.8 fL (80.0-98.0); Mean Platelet Volume 8.8 fL (9.4-12.3); Monocytes Absolute Auto 0.4 X10*3/uL (0.1-1.2); Monocytes Percent Auto 13.1 % (2-11); Neutrophils Absolute Auto 1.7 x10*3/uL (2.0-8.3); Neutrophils Percent Auto 49.1 % (45-73); Red Blood Count 2.87 X10*6/uL (4.20-5.50); Red Cell Distribution Width 18.1 % (11.0-16.0); White Blood Count 3.4 X10*3/uL (4.8-10.8)
[2024-01-04 05:29] LABS: Platelet Count 73 X10*3/uL (160-400)
[2024-01-04 05:51] LABS: Anion Gap 12 (12-20); Blood Urea Nitrogen 9 mg/dL (9-16); Calcium 8.8 mg/dL (8.4-10.2); Carbon Dioxide 25 mmol/L (22-29); Chloride 105 mmol/L (96-108); Creatinine Clr Calc Pharmacy 70.2; Estimated Glomerular Filt Rate > 60; Glucose Random 84 mg/dL (60-115); Potassium 3.9 mmol/L (3.3-5.1); Sodium 138 mmol/L (135-145)
--- NOTE | 2024-01-04 07:50 | P.PNIM_ITS ---
Subjective Subjective Date of Service: 01/04/24 Physical Exam 2 Vital Signs: Vital Signs: Last Vital Signs Temp 98.5 F 01/03/24 21:56 Pulse 79 01/03/24 21:56 Resp 18 01/03/24 21:56 BP 153/62 H 01/03/24 21:56 Pulse Ox 99 01/03/24 21:56 O2 Del Method Nasal Cannula 01/03/24 21:56 O2 Flow Rate 2 01/03/24 21:56 Oxygen Flow Rate 2 01/03/24 12:23 BMI result Body Mass Index 21.8 Objective Data Active Medications Acetaminophen (Acetaminophen 325 Mg Tablet) 650 mg PO Q6H PRN PRN Reason: Pain, Mild (Pain Scale 1-3), fever or headache Calcium Carbonate (Calcium Carbonate 750 Mg Tab.Chew) 750 mg PO Q4H PRN PRN Reason: Heartburn Clonazepam (Clonazepam 0.5 Mg Tablet) 0.5 mg PO BID PRN PRN Reason: Anxiety Enoxaparin Sodium (Enoxaparin Sodium 40 Mg/0.4 Ml Syringe) 40 mg SUBCUT Q24H [facility] Last Admin: 01/03/24 21:44 Dose: 40 mg Documented By: SHAYLA Hydroxyzine HCl (Hydroxyzine Hcl 50 Mg Tablet) 50 mg PO BEDTIME [facility] Lactated Ringer's (Lr) 1,000 mls @ 80 mls/hr IVCONT .[id number] [facility] Last Admin: 01/03/24 21:01 Dose: 80 mls/hr Documented By: [facility] Magnesium Hydroxide (Milk Of Magnesia 30 Ml Oral.Susp) 30 ml PO DAILY PRN PRN Reason: Constipation Melatonin (Melatonin 3 Mg Tablet) 6 mg PO BEDTIME PRN PRN Reason: Insomnia Metoprolol Succinate (Metoprolol Succinate Er 50 Mg Tab.Er.24h) 50 mg PO DAILY [facility]; Protocol Mirtazapine (Mirtazapine 15 Mg Tablet) 15 mg PO BEDTIME [facility] Nicotine (Nicotine 7 Mg Patch.Td24) 7 mg TRANSDERMA DAILY [facility] Non-Formulary Medication (Alosetron) 1 mg PO DAILY@0900 [facility] Non-Formulary Medication (Magnesium) 250 mg PO BID [facility] Non-Formulary Medication (Pantoprazole) 80 mg PO BID [facility] Non-Formulary Medication (Solifenacin) 10 mg PO DAILY@0900 [facility] Non-Formulary Medication (Tiotropium Intervale [Spiriva With Handihaler]) 1 cap INHALE DAILY [facility] Ondansetron HCl (Ondansetron Hcl 4 Mg/2 Ml Vial) 4 mg IVPUSH Q8H PRN PRN Reason: Nausea and Vomiting Oxycodone HCl (Oxycodone Hcl Immed Release 5 Mg Tablet) 5 mg PO Q6H PRN PRN Reason: Pain, Severe (Pain Scale 7-10) Potassium Chloride (Potassium Chloride Er 20 Meq Tab.Er.Prt) 20 meq PO DAILY [facility] Senna/Docusate Sodium (Sennosides/Docusate Sodium Tablet) 1 tab PO BEDTIME PRN PRN Reason: Constipation Sodium Chloride (0.9 % Sodium Chloride Flush 3 Ml Syringe) 3 ml IVFLUSH QSHIFT [facility] Last Admin: 01/04/24 00:38 Dose: Not Given Documented By: SHAYLA Non-Admin Reason: IV Running Sodium Chloride (Sodium Chloride Tab 1 Gm Tablet) 1 gm PO BID [facility] Vitamin D (Cholecalciferol (Vitamin D3) 25 Mcg Tablet) 50 mcg PO DAILY@0900 [facility] Labs 01/04/24 04:46 01/04/24 04:46 Labs: Laboratory Results - last 24 hr 01/03/24 01/03/24 01/03/24 13:10 13:11 14:36 MCV 91.3 D MCH 32.3 MCHC 35.4 H RDW 18.0 H Plt Count 84 L D MPV 8.7 L Immature Gran % (Auto) 0.4 Neut % (Auto) 67.6 Lymph % (Auto) 21.1 Emanuel % (Auto) 9.9 Eos % (Auto) 0.6 Baso % (Auto) 0.4 Lymph # (Auto) 1.0 L Emanuel # (Auto) 0.5 Eos # (Auto) 0.0 Baso # (Auto) 0.0 Abs Immat Gran (auto) 0.02 Absolute Neuts (auto) 3.3 Absolute Nucleated RBC 0.000 Nucleated RBC % (auto) 0.0 PT 12.1 INR 1.0 VBG pH 7.37 VBG pCO2 49 VBG pO2 35 VBG HCO3 28 H VBG O2 Saturation 47.0 VBG Base Excess 2.9 Anion Gap 16 Estim Creat Clear Calc 66.0 Estimated GFR > 60 Random Glucose 113 Calcium 9.9 Magnesium 1.5 L Total Bilirubin 0.6 AST 15 ALT 7 Alkaline Phosphatase 59 Troponin I High Sens 3.1 B-Natriuretic Peptide 205 H Total Protein 6.7 Albumin 4.3 C. difficile Tox B Gene Influenza Type A (PCR) NEGATIVE Influenza Type B (PCR) NEGATIVE RSV RNA Qual (PCR) NEGATIVE SARS-CoV-2 RNA (RT-PCR) NEGATIVE 01/03/24 01/04/24 22:06 04:46 MCV 95.8 MCH 31.4 MCHC 32.7 RDW 18.1 H Plt Count 73 L MPV 8.8 L Immature Gran % (Auto) 0.6 H Neut % (Auto) 49.1 Lymph % (Auto) 34.5 Emanuel % (Auto) 13.1 H Eos % (Auto) 1.5 Baso % (Auto) 1.2 Lymph # (Auto) 1.2 Emanuel # (Auto) 0.4 Eos # (Auto) 0.1 Baso # (Auto) 0.0 Abs Immat Gran (auto) 0.02 Absolute Neuts (auto) 1.7 L Absolute Nucleated RBC 0.000 Nucleated RBC % (auto) 0.0 PT INR VBG pH VBG pCO2 VBG pO2 VBG HCO3 VBG O2 Saturation VBG Base Excess Anion Gap 12 Estim Creat Clear Calc 70.2 Estimated GFR > 60 Random Glucose 84 Calcium 8.8 D Magnesium 2.0 Total Bilirubin AST ALT Alkaline Phosphatase Troponin I High Sens B-Natriuretic Peptide Total Protein Albumin C. difficile Tox B Gene NEGATIVE Influenza Type A (PCR) Influenza Type B (PCR) RSV RNA Qual (PCR) SARS-CoV-2 RNA (RT-PCR) Quality Stroke Does the patient have a stroke diagnosis?: No VTE Prior VTE?: No VTE Risk Level:: Medical - moderate - high VTE Device Contraindication: Treatment Not Indicated VTE Drug Contraindication: N/A - Med Ordered
--- NOTE | 2024-01-04 08:42 | PHA.MEDREC ---
Pharmacy Consult ? Medication Reconciliation Pharmacy has completed the medication reconciliation. Spoke with patient to confirm medications. Patient is no longer taking Linezolid as she got sick on this medication at home.
[2024-01-04] MEDS: Acetaminophen 325 MG TABLET 650 MG PO (09:25)
[2024-01-04] MEDS: Potassium Chloride ER 20 MEQ TAB.ER.PRT PO (09:26)
[2024-01-04] MEDS: Magnesium Oxide 400 MG TABLET 200 MG PO (09:30)
[2024-01-04] MEDS: Cholecalciferol (Vitamin D3) 25 MCG TABLET 50 MCG PO (09:31)
[2024-01-04] MEDS: Nicotine 7 MG PATCH.TD24 TRANSDERMA (09:32)
[2024-01-04] MEDS: clonazePAM 0.5 MG TABLET PO (10:31)
[2024-01-04] MEDS: Calcium Carbonate 750 MG TAB.CHEW PO (10:31)
--- NOTE | 2024-01-04 10:52 | MHC.CM.PN ---
PT REPORTS SHE LIVES ALONE AND IS INDEPENDENT WITH CARE SHE HAS HOME O2 FROM [employer] SHE REPORTS SHE IS WORKING WITH [facility] TO INITIATE NEW SERVICES SHE REPORTS SHE HAS A HCP, COPY REQUESTED PCP: GLEN KELLER OBSERVATION NOTICE DELIVERED DCP: HOME TODAY WITH NO NEW SERVICES C SHUTTLE TO TRANSPORT
[2024-01-04] MEDS: Budesonide 180 MCG AER.POW.BA 2 PUFF INHALE (11:28)
[2024-01-04] MEDS: Tiotropium Bromide 2.5 mcg 1 PUFF/2.5 MCG MIST.INHAL 2 PUFF INHALE (11:31)
[2024-01-04] MEDS: Metoclopramide HCl 5 MG TABLET PO ×2 (12:03→16:00)
[2024-01-04] MEDS: Sucralfate 1 GM TABLET 4 GM PO (12:03)
[2024-01-04] MEDS: oxyCODONE HCl Immed Release 5 MG TABLET PO (13:13)
--- NOTE | 2024-01-04 13:54 | PM.DS ---
DS: Providers Provider Date of Service: 01/04/24 Date of admission: 01/03/24 19:44 Date of discharge: 01/04/24 Primary care physician: Sarthak Person MD Admitting clinician: Rossana Carlos Attending physician on admission: Sonya Lee Consults: 01/04/24 07:42 Consult to Infectious Diseases Routine Consulting [place] [facility] Reason for consultation: VRE UTI Attending physician on discharge: Sincere Carl Discharging clinician: Rossana Carlos DS: Diagnosis Discharge Diagnosis (1) Intractable nausea and vomiting: Status: Acute DS: Summary Hospital Course Hospital Course: HPI on admission by this provider 01/02: 63-year-old female with PMH of COPD on 2L, metastatic small-cell lung cancer on Chemo, SIADH, GERD, IBS, rectal prolapse, chronic iron-deficiency anemia, internal hemorrhoids presented to the ED from home for evaluation of intractable nausea and vomiting as well as intermittent diarrhea/soft stool ongoing for 2 days. She was called from the ED on thursday after growing VRE in her urine and was started on PO linezolid on thursday. She started with the n/v/d the next day. Has had sweats and chills but no fevers. No abd pain, melena, hematochezia. She also endorses diffuse headache, but no vision changes, lightheadedness, paresthesias, weakness, sob, chest pain. VSS. No leukocytosis, chronic baseline anemia and thrombocytopenia stable. Renal function and lytes wnl except Mg 1.5. Negative covid, flu, rsv. CXR shows trace atelectasis but no focal consolidation, effusions, or edema. CT abd pelvis negative for acute intraabdominal abn. There is a chronic severe compression deformity at L5 with extensive atherosclerotic disease. In the ED, given IVF, IV mag, carafate, ondansetron, and lorazepam. Despite this, continues iwth n/v and unable to tolerate PO. Hospital course: Hospital course uneventful. Pt observed overnight for intractable nausea and vomiting in setting of adverse reaction from antibiotic linezolid. Linezolid was discontinued. She was given a dose of IV daptomycin on admission for positive urine culture with VRE sensitive only to linezolid based on susceptibility report. However, on further review of chart, had repeat urine culture on 12/31 with normal joann/contamination and blood cultures that have been negative x 48 h from the same day. Antibiotics were discontinued and Infectious Disease was consulted. Given patient denied any complaints of dysuria, hematuria, increased urinary frequency, abdominal or flank pain with negative repeat cultures, id did not recommend any further antibiotic treatment. Nausea and vomiting resolved and patient tolerated diet advancement. IV fluids were discontinued. She was hypertensive on day of discharge but metoprolol had been held by nursing due to heart rate of 57. She was given late dose of metoprolol and amlodipine 2.5mg was added with improvement in blood pressure. Will discharge with metoprolol and amlodipine 2.5mg daily. She will be discharged home and advised to follow-up with PCP as scheduled tomorrow #Intractable nausea and vomiting and diarrhea -likely adverse reaction to linezolid. Would recommend avoidance -treated with antiemetics p.r.n.. Weaned from IV fluids -diet advancement tolerated well -renal function and electrolyte levels normal except for acute hypomagnesemia which was repleted #Acute diarrhea -in setting of abx use -C diff negative, immodium prn #Acute VRE UTI -UC 12/26 positive for VRE sensitive to linezolid only. unable to tolerate PO linezolid. Was not symptomatic at time of urine collection and remains asymptomatic -UC 12/31 negative. Blood cultures negative -Per ID, no further abx recommended # small-cell lung cancer -oncology consult -follows with dr koenig. starting immunotherapy this week # SIADH -fluid restrictions #HTN -continue metoprolol. Add amlodipine 2.5mg daily #GERD -continue ppi, sucrafate #Nicotine dependence -patch for nrt, cessation advised Status at Discharge Functional status at discharge: independent ambulation Overall status at discharge: patient is progressing back to baseline Time Attestation Discharge Coordination Time (in mins): 35 Quality: Safe Use of Opioids Does Pt have an Active Cancer Diagnosis on the Problem List?: Yes Opioid Measure Date for [facility] Report: 12/05/23 Opioid Measure Time for [facility] Report: 16:16 Quality: Stroke Does the patient have a stroke diagnosis?: No Physical Exam Vital Signs: Vital Signs: Last Vital Signs Temp 97.7 F 01/04/24 12:00 Pulse 63 01/04/24 12:00 Resp 20 01/04/24 12:00 BP 177/80 H 01/04/24 12:00 Pulse Ox 98 01/04/24 12:00 O2 Del Method Nasal Cannula 01/04/24 12:00 O2 Flow Rate 2 01/04/24 12:00 Oxygen Flow Rate 2 01/03/24 12:23 BMI result Body Mass Index 21.9 Constitutional - Awake and Alert, No apparent distress Eyes - PERRLA, EOMI Cardiovascular - S1S2, RRR, No edema Respiratory - Normal lung expansion, Normal respiratory effort, No respiratory distress, CTA bilaterally Gastrointestinal - NT / ND; +BS; No rebound or guarding Extremities - no calf tenderness bilaterally, no swelling Skin - Warm/Dry Neurological - Alert & oriented x3 Psychological - anxious DS: Data Data Completed and Pending Completed studies during hospitalization [Text1]: Procedures Excision of Right Main Bronchus, Via Natural or Artificial Opening Endoscopic, Diagnostic (08/24/23) Inspection of Lower Intestinal Tract, Via Natural or Artificial Opening Endoscopic (12/14/23) Transfusion of Nonautologous Platelets into Peripheral Vein, Percutaneous Approach (12/14/23) Transfusion of Nonautologous Red Blood Cells into Peripheral Vein, Percutaneous Approach (12/14/23) Labs on day of discharge: Laboratory Results - last 24 hr 01/03/24 01/03/24 01/03/24 13:11 14:36 22:06 WBC RBC Hgb Hct MCV MCH MCHC RDW Plt Count MPV Immature Gran % (Auto) Neut % (Auto) Lymph % (Auto) [place] % (Auto) Eos % (Auto) Baso % (Auto) Lymph # (Auto) [place] # (Auto) Eos # (Auto) Baso # (Auto) Abs Immat Gran (auto) Absolute Neuts (auto) Absolute Nucleated RBC Nucleated RBC % (auto) VBG pH 7.37 VBG pCO2 49 VBG pO2 35 VBG HCO3 28 H VBG O2 Saturation 47.0 VBG Base Excess 2.9 Sodium Potassium Chloride Carbon Dioxide Anion Gap BUN Creatinine Estim Creat Clear Calc Estimated GFR Random Glucose Calcium Magnesium C. difficile Tox B Gene NEGATIVE Influenza Type A (PCR) NEGATIVE Influenza Type B (PCR) NEGATIVE RSV RNA Qual (PCR) NEGATIVE SARS-CoV-2 RNA (RT-PCR) NEGATIVE 01/04/24 04:46 WBC 3.4 L RBC 2.87 L Hgb 9.0 L Hct 27.5 L MCV 95.8 MCH 31.4 MCHC 32.7 RDW 18.1 H Plt Count 73 L MPV 8.8 L Immature Gran % (Auto) 0.6 H Neut % (Auto) 49.1 Lymph % (Auto) 34.5 [place] % (Auto) 13.1 H Eos % (Auto) 1.5 Baso % (Auto) 1.2 Lymph # (Auto) 1.2 [place] # (Auto) 0.4 Eos # (Auto) 0.1 Baso # (Auto) 0.0 Abs Immat Gran (auto) 0.02 Absolute Neuts (auto) 1.7 L Absolute Nucleated RBC 0.000 Nucleated RBC % (auto) 0.0 VBG pH VBG pCO2 VBG pO2 VBG HCO3 VBG O2 Saturation VBG Base Excess Sodium 138 Potassium 3.9 Chloride 105 Carbon Dioxide 25 Anion Gap 12 BUN 9 Creatinine 0.64 Estim Creat Clear Calc 70.2 Estimated GFR > 60 Random Glucose 84 Calcium 8.8 D Magnesium 2.0 C. difficile Tox B Gene Influenza Type A (PCR) Influenza Type B (PCR) RSV RNA Qual (PCR) SARS-CoV-2 RNA (RT-PCR) Discharge Plan Discharge Anticipated Discharge Date/Time: 01/04/24 14:06 Patient Disposition: Home, Self-Care Discharge Diagnosis: Intractable nausea and vomiting Referrals: [facility] [Physician] - 1 Week Discharge Medications: New amlodipine 2.5 mg tablet 2.5 mg PO DAILY Qty: 30 2RF Continued albuterol sulfate [Ventolin HFA] 90 mcg/actuation HFA aerosol inhaler 1 puff PO Q6H PRN (Reason: shortness of breath or wheezing) 30 Days Qty: 8.5 3RF hydroxyzine HCl 50 mg tablet 50 mg PO BEDTIME Qty: 90 1RF fluticasone propionate 50 mcg/actuation spray,suspension 1 spray intranasal DAILY 30 Days Qty: 16 2RF metoprolol succinate 50 mg tablet extended release 24 hr 50 mg PO DAILY Qty: 90 1RF tiotropium bromide [Spiriva with HandiHaler] 18 mcg capsule, w/inhalation device 1 cap inhalation DAILY Qty: 30 5RF oxycodone 5 mg tablet 5 mg PO Q6H PRN (Reason: pain) Qty: 30 0RF alosetron 0.5 mg tablet 1 mg PO DAILY@0900 solifenacin 10 mg tablet 10 mg PO DAILY@0900 cholecalciferol (vitamin D3) 50 mcg (2,000 unit) capsule 50 mcg PO DAILY@0900 Rx Instructions: 1 capsule Orally Once a day sucralfate [Carafate] 1 gram tablet 4 g PO DAILY@1200 nicotine (polacrilex) 4 mg Lozenge 4 mg BUCCAL Q8H PRN (Reason: Anxiety) Qty: 60 0RF diphenoxylate-atropine [Lomotil] 2.5-0.025 mg Tablet 1 tab PO DAILY PRN (Reason: Diarrhea) Qty: 30 0RF dexamethasone 4 mg tablet 4 mg PO WETH Rx Instructions: for chemo treatments potassium chloride [K-Tab] 20 mEq Tablet Extended Release 20 meq PO DAILY Qty: 30 0RF ondansetron 8 mg Tablet,Disintegrating 8 mg PO Q8H PRN (Reason: Nausea And Vomiting) Qty: 30 3RF pantoprazole 40 mg tablet,delayed release (DR/EC) 40 mg PO BID@0630,1630 clonazepam 0.5 mg Tablet 0.5 mg PO BID PRN (Reason: Anxiety) Qty: 60 0RF Pulmicort Flexhaler 180 mcg/actuation aerosol powdr breath activated 2 inh INHALATION BID loperamide 2 mg Capsule 2 mg PO Q6H PRN (Reason: Diarrhea) Qty: 14 0RF metoclopramide HCl 5 mg tablet 5 mg PO TIDAC hydrocortisone [Proctozone-HC] 2.5 % Cream With Perineal Applicator 1 appl [place] BID Qty: 30 0RF magnesium 250 mg tablet 250 mg PO BID Qty: 180 0RF sodium chloride 1,000 mg tablet,soluble 1,000 mg PO BID Qty: 180 0RF sennosides-docusate sodium [Senexon-S] 8.6-50 mg tablet 1 tab PO BEDTIME PRN (Reason: Constipation) mirtazapine 30 mg tablet 15 mg PO BEDTIME acetaminophen 500 mg Tablet 500 mg PO Q6H PRN (Reason: Pain (Scale Score 1-3)) simvastatin 40 mg tablet 40 mg BEDTIME nicotine 14 mg/24 hr patch 24 hour 1 patch transdermal Q24H MDD smoking 28 Days Qty: 28 2RF Discharge Orders: Discharge Order (Routine); Ordered 01/04/24 Ordered By: Rossana Carlos Diet: Advance to usual diet Activity on Discharge: As tolerated Stand Alone Forms: Patient Portal Discharge page Print Language: Kyrgyz Care Plan Goals: Prevent nausea and vomiting Health Concerns: Nausea and vomiting due to antibiotic Question of UTI Plan of Treatment: Intractable nausea and vomiting-resolved -likely due to linezolid use. Would recommend avoidance in the future -can use antiemetics as needed ?UTI -urine culture from 12/26 grew VRE. However, you deny having had any symptoms of UTI then or now. Repeat urine culture from 12/31 and blood cultures negative. You were seen by infectious disease for recommendations of antimicrobial therapy and given negative cultures and absence of symptoms, no further antibiotic treatment indicated HTN blood pressures elevated. Continue metoprolol and add amlodipine 2.5mg daily Follow up with PCP and specialists as advised Continue all home medications Assessment: See above See discharge summary
[2024-01-04] MEDS: Metoprolol Succinate ER 50 MG TAB.ER.24H PO (14:07)
[2024-01-04] MEDS: amLODIPine Besylate 2.5 MG TABLET PO (15:38)
[2024-01-04] MEDS: Omeprazole 20 MG CAPSULE.DR PO (16:00)
--- NOTE | 2024-01-04 16:34 | P.CNID_ITS ---
History of Present Illness Data of Consult Service Date: 01/04/24 Requesting physician: Rossana Carlos Primary Care Provider: Sarthak Person MD [facility] Reason for consult: enterococcus faecium urine She presents after being told to come in for enterococcus in urine ,VRE. She had been hospitalized 12/27-12/28 for GI bleed and urine was obtained at that time although she had no dyuria,hematuria or flank pain. She has no fever or chills. Review of Systems 2 Review of Systems: Yes all other systems are reviewed and are negative [facility] Past Medical History Medical History (Updated 01/04/24 @ 16:37 by Shawna Mistry MD) Enterococcus, vancomycin-resistant Small cell lung cancer COPD (chronic obstructive pulmonary disease) Small cell lung cancer (~08/2023) MDD (major depressive disorder), recurrent episode, moderate Abnormal CT scan, chest Mass of right lung Lung mass Bronchitis Rectal prolapse Nicotine dependence, cigarettes, uncomplicated Nonrheumatic mitral (valve) insufficiency Pulmonary nodule History of hepatitis C Osteopenia (~2011) IV drug user Endocarditis of mitral valve (~11/2017) Mitral valve prolapse Mitral regurgitation Early satiety Paresthesia of left leg Allergic rhinitis Facet arthritis of lumbar region Cervical spondylosis Vitamin D deficiency Pure hypercholesterolemia Benign essential hypertension GERD (gastroesophageal reflux disease) Anxiety Family History Family History Father Internal bleeding Mother Medical history unknown Family history: reviewed and not pertinent Surgical History Surgical History History of bronchoscopy (~2023) History of liver biopsy (~2009) History of partial colectomy (~2014) History of hysteroscopy (~2010) History of colonoscopy (~2017) Social History Social History Household Members: Children Housing: House Housing Other:: lives alone with her cat Gizmo Are you a primary hearing care practitioner to a significant other at home: No Do you presently have visiting nurse or other home services: Yes ([facility]) Alcohol intake: former Patient Tobacco Use Status: Current everyday Tobacco user Tobacco use type: Cigarette Cigarette Packs Per Day: 5 Cigarettes Per Day: 5 Years Smoked: 45 e-Cigarette/Vaping Use: Never Used Second Hand Smoke Exposure: Yes Substance Use Type: Marijuana Advance Directives Date on File: 09/23/23 service: No Current occupational status: unemployed Sexual orientation: Straight/Heterosexual Gender identity: Female Cognitive needs: No Hearing needs: No Vision needs: Yes Meds Allergies Allergy/AdvReac Type Severity Reaction Status Date / Time No Known Allergies Allergy Unknown unknown Verified 01/03/24 12:25 [NO KNOWN ALLERGIES] Active Medications: Current Medications Acetaminophen (Acetaminophen 325 Mg Tablet) 650 mg PO Q6H PRN PRN Reason: Pain, Mild (Pain Scale 1-3), fever or headache Last Admin: 01/04/24 09:25 Dose: 650 mg Albuterol Sulfate (Albuterol Sulfate 90 Mcg 8 Gm Inhaler) 1 puff INHALE Q6H PRN PRN Reason: shortness of breath or wheezing Budesonide (Budesonide 180 Mcg Aer.Pow.Ba) 2 puff INHALE RBID [facility] Last Admin: 01/04/24 11:28 Dose: 2 puff Calcium Carbonate (Calcium Carbonate 750 Mg Tab.Chew) 750 mg PO Q4H PRN PRN Reason: Heartburn Last Admin: 01/04/24 10:31 Dose: 750 mg Clonazepam (Clonazepam 0.5 Mg Tablet) 0.5 mg PO BID PRN PRN Reason: Anxiety Last Admin: 01/04/24 10:31 Dose: 0.5 mg Dexamethasone (Dexamethasone 4 Mg Tablet) 4 mg PO WeTh@0900 [facility] Diphenoxylate HCl/Atropine (Diphenoxylate/Atrop 2.5/0.025 Tablet) 1 tab PO DAILY PRN PRN Reason: Diarrhea Enoxaparin Sodium (Enoxaparin Sodium 40 Mg/0.4 Ml Syringe) 40 mg SUBCUT Q24H [facility] Last Admin: 01/03/24 21:44 Dose: 40 mg Fluticasone Propionate (Fluticasone Propionate Nasal 16 Gm [place]) 1 spray NOSTRIL-B DAILY [facility] Last Admin: 01/04/24 11:15 Dose: Not Given Hydrocortisone (Hydrocortisone 2.5 % Rectal Cr 30 Gm Tube) 1 appl SC BID [facility] Hydroxyzine HCl (Hydroxyzine Hcl 50 Mg Tablet) 50 mg PO BEDTIME [facility] Loperamide HCl (Loperamide Hcl 2 Mg Capsule) 2 mg PO Q6H PRN PRN Reason: Diarrhea Magnesium Hydroxide (Milk Of Magnesia 30 Ml Oral.Susp) 30 ml PO DAILY PRN PRN Reason: Constipation Magnesium Oxide (Magnesium Oxide 400 Mg Tablet) 200 mg PO BID [facility] Last Admin: 01/04/24 09:30 Dose: 200 mg Melatonin (Melatonin 3 Mg Tablet) 6 mg PO BEDTIME PRN PRN Reason: Insomnia Metoclopramide HCl (Metoclopramide Hcl 5 Mg Tablet) 5 mg PO TIDAC [facility] Last Admin: 01/04/24 16:00 Dose: 5 mg Metoprolol Succinate (Metoprolol Succinate Er 50 Mg Tab.Er.24h) 50 mg PO DAILY [facility]; Protocol Last Admin: 01/04/24 14:07 Dose: 50 mg Mirtazapine (Mirtazapine 15 Mg Tablet) 15 mg PO BEDTIME [facility] Nicotine (Nicotine 7 Mg Patch.Td24) 7 mg TRANSDERMA DAILY [facility] Last Admin: 01/04/24 09:32 Dose: 7 mg Nicotine Polacrilex (Nicotine Polacrilex Lozenge 4 Mg Lozenge) 4 mg BUCCAL Q8H PRN PRN Reason: Anxiety Non-Formulary Medication (Alosetron) 1 mg PO DAILY@0900 [facility] Omeprazole (Omeprazole 20 Mg Capsule.Dr) 20 mg PO BID@0630,1630 [facility] Last Admin: 01/04/24 16:00 Dose: 20 mg Ondansetron HCl (Ondansetron Hcl 4 Mg/2 Ml Vial) 4 mg IVPUSH Q8H PRN PRN Reason: Nausea and Vomiting Oxycodone HCl (Oxycodone Hcl Immed Release 5 Mg Tablet) 5 mg PO Q6H PRN PRN Reason: Pain, Severe (Pain Scale 7-10) Last Admin: 01/04/24 13:13 Dose: 5 mg Potassium Chloride (Potassium Chloride Er 20 Meq Tab.Er.Prt) 20 meq PO DAILY [facility] Last Admin: 01/04/24 09:26 Dose: 20 meq Senna/Docusate Sodium (Sennosides/Docusate Sodium Tablet) 1 tab PO BEDTIME PRN PRN Reason: Constipation Sodium Chloride (0.9 % Sodium Chloride Flush 3 Ml Syringe) 3 ml IVFLUSH QSHIFT [facility] Last Admin: 01/04/24 16:00 Dose: Not Given Sodium Chloride (Sodium Chloride Tab 1 Gm Tablet) 1 gm PO BID [facility] Last Admin: 01/04/24 10:09 Dose: Not Given Sucralfate (Sucralfate 1 Gm Tablet) 4 gm PO DAILY@1200 [facility] Last Admin: 01/04/24 12:03 Dose: 2 gm Sumatriptan Succinate (Sumatriptan Succinate 50 Mg Tablet) 50 mg PO DAILY MRX1 PRN PRN Reason: Migraine Headache Tiotropium [place] (Tiotropium [place] 2.5 Mcg 1 Puff/2.5 Mcg Mist.Inhal) 2 puff INHALE RDAILY [facility] Last Admin: 01/04/24 11:31 Dose: 2 puff Tolterodine Tartrate (Tolterodine Tartrate [place] 4 Mg Cap.Er.24h) 4 mg PO DAILY [facility] Last Admin: 01/04/24 10:10 Dose: Not Given Vitamin D (Cholecalciferol (Vitamin D3) 25 Mcg Tablet) 50 mcg PO DAILY@0900 [facility] Last Admin: 01/04/24 09:31 Dose: 50 mcg Home Medications ?Medication ?Instructions ?Recorded ?Confirmed ?Last Taken ?Type alosetron 0.5 mg tablet 1 mg PO DAILY@0907/22/23 01/04/24 12/28/23 History cholecalciferol (vitamin D3) 50 50 mcg PO DAILY@89907/22/23 01/04/24 12/28/23 History mcg (2,000 unit) capsule solifenacin 10 mg tablet 10 mg PO DAILY@0907/22/23 01/04/24 12/28/23 History sucralfate 1 gram tablet (Carafate) 4 g PO DAILY@1200 07/25/23 01/04/24 01/02/24 History budesonide 180 mcg/actuation 2 inh inhalation BID 09/28/23 01/04/24 01/02/24 History breath activated powder inhaler (Pulmicort Flexhaler) dexamethasone 4 mg tablet 4 mg PO WETH 10/21/23 01/04/24 01/02/24 History metoclopramide HCl 5 mg tablet 5 mg PO TIDAC 12/14/23 01/04/24 01/02/24 History mirtazapine 30 mg tablet 15 mg PO BEDTIME 12/27/23 01/04/24 12/27/23 History sennosides 8.6 mg-docusate sodium 1 tab PO BEDTIME PRN Constipation 12/27/23 01/04/24 Unknown History 50 mg tablet (Senexon-S) pantoprazole 40 mg tablet,delayed 40 mg PO BID@0630,1630 12/30/23 01/04/24 Unknown History release acetaminophen 500 mg tablet 500 mg PO Q6H PRN Pain (Scale 01/04/24 01/04/24 Unknown History Score 1-3) simvastatin 40 mg tablet 40 mg BEDTIME 01/04/24 01/04/24 01/02/24 History Physical Exam 2 Vital Signs: Vital Signs: Last Vital Signs Temp 98.2 F 01/04/24 15:02 Pulse 62 01/04/24 15:02 Resp 16 01/04/24 15:02 BP 160/77 H 01/04/24 16:15 Pulse Ox 97 01/04/24 15:02 O2 Del Method Nasal Cannula 01/04/24 15:02 O2 Flow Rate 2 01/04/24 15:02 Oxygen Flow Rate 2 01/03/24 12:23 BMI result Body Mass Index 21.9 Const: General: cooperative HEENT: Head: Yes normal to inspection Face and sinus: Yes normal facial exam Mouth: Normal oral and palatal mucosa present Teeth and gingiva: d entition normal Eyes: General: appearance normal, both eyes and all related structures P upils: Equal, round and reactive pupils present Resp: Effort & Inspection: normal respiratory effort Cardio: Rate: regular rate Rhythm: regular rhythm GI: Palpation (GI): Soft to palpation and nontender : General: Yes no CVA tenderness Back/Spine/Pelvis: Back: no CVA tenderness Skin: General skin exam: no rashes or lesions noted Neuro: General: moves all extremities Cranial nerves: Yes Equal, round and reactive pupils present Extrem: General: Yes normal to inspection Psych: Appearance: grossly normal Results Labs 01/04/24 04:46 01/04/24 04:46 Labs: Short CBC 01/04/24 Range/Units 04:46 WBC 3.4 L (4.8-10.8) X10*3/uL Hgb 9.0 L (12.0-16.0) g/dl Hct 27.5 L (37.0-47.0) % Plt Count 73 L (160-400) X10*3/uL BMP 01/04/24 04:46 Sodium 138 Potassium 3.9 Chloride 105 Carbon Dioxide 25 BUN 9 Creatinine 0.64 Calcium 8.8 D Assessment and Plan (1) Intractable nausea and vomiting: Status: Acute (2) Enterococcus, vancomycin-resistant: Status: Acute She had urine collected. She has no signs of and has not had signs c/w UTI. Linezolid which she was prescribed likely cause of nausea and vomiting. Plan No antibiotics. No treatment for UTI with no symptoms,probable colonized.
== END 2024-01-04 17:11 | disposition home or self-care (01) ==
LOC: HO.ED 16:11 → HO.EDOVER 19:53 → HO.S3 01-04 07:40
PROVIDERS: Nurse Practitioner Family; Admitting Provider Physician Assistant; Emergency Provider Emergency Medicine Emergency Medical Services; PCP Internal Medicine; Visit Provider Physician Assistant
DX: R11.2 Nausea with vomiting, unspecified (principal); N39.0 Urinary tract infection, site not specified; R19.7 Diarrhea, unspecified; R06.02 Shortness of breath; C34.90 Malignant neoplasm of unspecified part of unspecified bronchus or lung; J44.9 Chronic obstructive pulmonary disease, unspecified; I10 Essential (primary) hypertension; D50.9 Iron deficiency anemia, unspecified; E22.2 Syndrome of inappropriate secretion of antidiuretic hormone; F17.200 Nicotine dependence, unspecified, uncomplicated; K21.9 Gastro-esophageal reflux disease without esophagitis; Z79.899 Other long term (current) drug therapy; Z86.19 Personal history of other infectious and parasitic diseases; Z03.818 Encounter for observation for suspected exposure to other biological agents ruled out; Z79.60 Long term (current) use of unspecified immunomodulators and immunosuppressants
CPT/HCPCS: 0241U; 36415; 71045; 74177; 80048; 80053; 82803; 83735; 83880; 84484; 85025; 85610; 87040; 87493; 93005; 96361; 96365; 96366; 96367; 96372; 96375; 99221; 99285; J0878; J1650; J2060; J2405; J3475; J7120; Q9967

== ENCOUNTER → 2024-01-03 19:44 | Outpatient (BNV) | payer OTHER, SELFPAY | PROVIDERS: Admitting Provider Physician Assistant; Emergency Provider Emergency Medicine Emergency Medical Services; PCP Internal Medicine; Visit Provider Internal Medicine | DX: R11.2 Nausea with vomiting, unspecified (principal); A49.1 Streptococcal infection, unspecified site; Z16.21 Resistance to vancomycin | CPT/HCPCS: 99222 ==

== ENCOUNTER → 2024-01-03 19:44 | Outpatient (BNV) | payer OTHER, SELFPAY | PROVIDERS: Admitting Provider Physician Assistant; Emergency Provider Emergency Medicine Emergency Medical Services; Visit Provider Physician Assistant | DX: R11.2 Nausea with vomiting, unspecified (principal) | CPT/HCPCS: 99222; 99239 ==

== ENCOUNTER 2024-01-05 09:17 | Outpatient (AMB) | payer OTHER, SELFPAY ==
[2024-01-05 09:27] VITALS: BP 132/70; PULSE 101; O2SAT 99; BMI 21.6
--- NOTE | 2024-01-05 09:27 | HO.NEPHOV ---
Vital Signs 01/05/24 09:27 Height 5 ft 2 in Weight 118 lb BMI 21.6 BP 132/70 Blood Pressure Location Rt brachial Position Sitting Pulse 101 H Pulse Source Pulse Oximeter Pulse Oximetry (%) 99 Oxygen Delivery Method Room Air Intake Visit Reasons: Acute hyponatremia/ Conf [employer] Manager Required: No Accompanied by: Self / Same As Patient Allergies No Known Allergies [NO KNOWN ALLERGIES] Allergy (Unknown, Verified 01/05/24 09:29) unknown Medication List - Last Reconciled 01/05/24 by Selvin Estrada MD acetaminophen 500 mg PO Q6H PRN albuterol sulfate 90 mcg/actuation (Ventolin HFA) 1 puff PO Q6H PRN 30 days alosetron 1 mg PO DAILY@0900 amlodipine 2.5 mg PO DAILY budesonide 180 mcg/actuation (Pulmicort Flexhaler) 2 inhalations inhalation BID cholecalciferol (vitamin D3) 50 mcg PO DAILY@0900 clonazepam 0.5 mg PO BID PRN dexamethasone 4 mg PO WETH diphenoxylate-atropine 2.5-0.025 mg (Lomotil) 1 tab PO DAILY PRN fluticasone propionate 50 mcg/actuation 1 spray intranasal DAILY 30 days hydrocortisone 2.5% (Proctozone-HC) 1 appl [place] BID hydroxyzine HCl 50 mg PO BEDTIME loperamide 2 mg PO Q6H PRN magnesium 250 mg PO BID metoclopramide HCl 5 mg PO TIDAC metoprolol succinate ER 50 mg PO DAILY mirtazapine 15 mg PO BEDTIME nicotine 1 patch transdermal Q24H 28 days MDD smoking nicotine (polacrilex) 4 mg buccal Q8H PRN ondansetron 8 mg PO Q8H PRN oxycodone 5 mg PO Q6H PRN pantoprazole 40 mg PO BID@0630,1630 potassium chloride ER (K-Tab) 20 mEq PO DAILY sennosides-docusate sodium 8.6-50 mg (Senexon-S) 1 tab PO BEDTIME PRN simvastatin 40 mg BEDTIME sodium chloride 1,000 mg PO BID solifenacin 10 mg PO DAILY@0900 sucralfate (Carafate) 4 grams PO DAILY@1200 tiotropium bromide (Spiriva with HandiHaler) 1 cap inhalation DAILY HPI Comments Details: 62 yo female with h/o bronchitis, history of IVDA, history of hepatitis-C, COPD, HTN, HLD, anemia, GERD, IBS, gastroparesis, anxiety, depression with recent admission to [facility] [place] from 07/21-07/23 and again 07/25-07/28 due to COPD exacerbation and pneumonia Diagnosed with Small cell CA; Seen by Currently on Salt tabs. Was on 2 gm TID; Decreased to 1 gm TID on 09/09/23 10/15/23 Had hypokalemia and received IV KCL yesterday Now on PO KCL She had diarrhea - resolved now 11/05/2023. She is on chemotherapy for lung cancer. Last week the regimen was switched to carboplatin. She has had 1 cycle so far next cycle is scheduled for next week. No specific complaints today. Accompanied by family member 01/05/24 Recently has UTI with VRE Was given Linozolid and di not tolerate Seen in ER yesterday Repeat Urien c/s NEgatinve Blood C/s pending [facility] Medical History (Updated 01/04/24 @ 16:37 by Shawna Mistry MD) Enterococcus, vancomycin-resistant Small cell lung cancer COPD (chronic obstructive pulmonary disease) Small cell lung cancer (~08/2023) MDD (major depressive disorder), recurrent episode, moderate Abnormal CT scan, chest Mass of right lung Lung mass Bronchitis Rectal prolapse Nicotine dependence, cigarettes, uncomplicated Nonrheumatic mitral (valve) insufficiency Pulmonary nodule History of hepatitis C Osteopenia (~2011) IV drug user Endocarditis of mitral valve (~11/2017) Mitral valve prolapse Mitral regurgitation Early satiety Paresthesia of left leg Allergic rhinitis Facet arthritis of lumbar region Cervical spondylosis Vitamin D deficiency Pure hypercholesterolemia Benign essential hypertension GERD (gastroesophageal reflux disease) Anxiety Surgical History History of bronchoscopy (~2023) History of liver biopsy (~2009) History of partial colectomy (~2014) History of hysteroscopy (~2010) History of colonoscopy (~2017) Family History Father Internal bleeding Mother Medical history unknown Social History Household Members: Children Housing: House Housing Other:: lives alone with her cat Malena Are you a primary intensive care ambulance paramedic to a significant other at home: No Do you presently have visiting nurse or other home services: Yes ([facility] HOME ON [facility]) Alcohol intake: former Patient Tobacco Use Status: Current everyday Tobacco user Tobacco use type: Cigarette Cigarette Packs Per Day: 5 Cigarettes Per Day: 5 Years Smoked: 45 e-Cigarette/Vaping Use: Never Used Second Hand Smoke Exposure: Yes Substance Use Type: Marijuana Advance Directives Date on File: 09/23/23 service: No Current occupational status: unemployed Sexual orientation: Straight/Heterosexual Gender identity: Female Cognitive needs: No Hearing needs: No Vision needs: Yes Female Reproductive History Menstrual Age of Menarche: 14 Physical Exam Vital Signs: Last Vital Signs Pulse 101 H 01/05/24 09:27 BP 132/70 01/05/24 09:27 Pulse Ox 99 01/05/24 09:27 Oxygen Delivery Method Room Air 01/05/24 09:27 BMI result Body Mass Index 21.6 Const General: ill appearing Neck Neck: Yes supple Resp Auscultation: rhonchi Cardio Palpation: no palpable S3 Heart sounds: no rubs GI Palpation (GI): Soft to palpation Auscultation: normal bowel sounds Neuro Motor exam (neuro): no asterixis Results Reviewed Nephrology Results: Hgb 9.0 g/dl (12.0-16.0) L 01/04/24 WBC 3.4 X10*3/uL (4.8-10.8) L 01/04/24 Plt Count 73 X10*3/uL (160-400) L 01/04/24 Sodium 138 mmol/L (135-145) 01/04/24 Potassium 3.9 mmol/L (3.3-5.1) 01/04/24 Chloride 105 mmol/L (96-108) 01/04/24 Carbon Dioxide 25 mmol/L (22-29) 01/04/24 BUN 9 mg/dL (9-16) 01/04/24 Creatinine 0.64 mg/dL (0.5-1.4) 01/04/24 Calcium 8.8 mg/dL (8.4-10.2) 01/04/24 Urine Protein Negative mg/dL (Neg-Trace) 01/01/24 Assessment & Plan Assessment & Plan (1) Hyponatremia: Code(s): E87.1 - Hypo-osmolality and hyponatremia Category: Medical (2) Small cell lung cancer: Onset Date: ~08/2023 Comment: (Right Upper Lobe - Clinical stage T3 N2, Stage IIIB - Dx 08/2023) Code(s): C34.90 - Malignant neoplasm of unspecified part of unspecified bronchus or lung Category: Medical (3) Acute hyponatremia: Code(s): E87.1 - Hypo-osmolality and hyponatremia Category: Medical (4) Hyponatremia: Code(s): E87.1 - Hypo-osmolality and hyponatremia Category: Medical Plan 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 Keep on potassium supplementation and monitor level UTI resolving BLood c/s pending Orders: Orders Basic Metabolic Panel 3 Months E87.1 - Hypo-osmolality and hyponatremia Coding Level of Care Code Est Pt Level 4 (51679) Diagnoses Hyponatremia E87.1 Small cell lung cancer C34.90 Acute hyponatremia E87.1
== END 2024-01-05 09:53 | disposition home or self-care (01) ==
PROVIDERS: PCP Internal Medicine; Visit Provider Internal Medicine Hypertension Specialist
DX: E87.1 Hypo-osmolality and hyponatremia (principal); C34.11 Malignant neoplasm of upper lobe, right bronchus or lung
CPT/HCPCS: 99214

== ENCOUNTER → 2024-01-05 09:17 | Outpatient (BNVA) | payer OTHER, SELFPAY | PROVIDERS: PCP Internal Medicine; Visit Provider Internal Medicine Hypertension Specialist | DX: I10 Essential (primary) hypertension (principal); E87.1 Hypo-osmolality and hyponatremia; C34.91 Malignant neoplasm of unspecified part of right bronchus or lung | CPT/HCPCS: 99212 ==

== ENCOUNTER 2024-01-14 11:10 | Outpatient (AMB) | payer OTHER, SELFPAY ==
[2024-01-14 11:37] VITALS: BP 136/84; PULSE 86; O2SAT 98; BMI 20.5
--- NOTE | 2024-01-14 11:37 | AM.OFFVISMDC ---
Intake Vital Signs 01/14/24 11:37 Height 5 ft 2 in Weight 112 lb BMI 20.5 BP 136/84 Blood Pressure Location Lt brachial Position Sitting Pulse 86 Pulse Source Pulse Oximeter Pulse Oximetry (%) 98 Oxygen Delivery Method Room Air Oxygen Flow Rate 2 Intake Visit Reasons: Annual Intake Note: Pt requesting refills of hydrocortisone and oxycodone. Chief Of Planning Required: No Accompanied by: Self / Same As Patient Allergies No Known Allergies [NO KNOWN ALLERGIES] Allergy (Unknown, Verified 01/14/24 12:10) unknown Medication List - Last Reconciled 01/14/24 by Sarthak Person MD acetaminophen 500 mg PO Q6H PRN albuterol sulfate 90 mcg/actuation (Ventolin HFA) 1 puff PO Q6H PRN 30 days alosetron 1 mg PO DAILY@0900 amlodipine 2.5 mg PO DAILY budesonide 180 mcg/actuation (Pulmicort Flexhaler) 2 inhalations inhalation BID cholecalciferol (vitamin D3) 50 mcg PO DAILY@0900 clonazepam 0.5 mg PO BID PRN diphenoxylate-atropine 2.5-0.025 mg (Lomotil) 1 tab PO DAILY PRN fluticasone propionate 50 mcg/actuation 1 spray intranasal DAILY 30 days hydrocortisone 2.5% (Proctozone-HC) 1 appl IN BID hydroxyzine HCl 50 mg PO BEDTIME loperamide 2 mg PO Q6H PRN magnesium 250 mg PO BID metoclopramide HCl 5 mg PO TIDAC metoprolol succinate ER 50 mg PO DAILY mirtazapine 15 mg PO BEDTIME nicotine 1 patch transdermal Q24H 28 days MDD smoking nicotine (polacrilex) 4 mg buccal Q8H PRN ondansetron 8 mg PO Q8H PRN oxycodone 5 mg PO Q6H PRN pantoprazole 40 mg PO BID@0630,1630 potassium chloride ER (K-Tab) 20 mEq PO DAILY sennosides-docusate sodium 8.6-50 mg (Senexon-S) 1 tab PO BEDTIME PRN simvastatin 40 mg PO BEDTIME sodium chloride 1,000 mg PO BID solifenacin 10 mg PO DAILY@0900 sucralfate (Carafate) 4 grams PO DAILY@1200 tiotropium bromide (Spiriva with HandiHaler) 1 cap inhalation DAILY HPI Annual HPI Details Patient comes in today for her Annual Medicare Wellness Exam and follow up visit She is currently on maintenance immunotherapy with atezolizumab for her small cell right lung carcinoma, 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, stage IIIB - diagnosed in 08/2023 She has so far received 4 cycles of chemotherapy with cisplatin/etoposide (started on 09/23/2023) that was later switched to combination treatment (chemotherapy/immunotherapy with cisplatin/etoposide with atezolizumab) on 11/11/2023, which she received 3 cycles of She had a hard time tolerating her treatments and developed significant cytopenias due to her Rx but her recent PET scan done at [facility] on 12/24/2023 revealed (+) significant interval improvement of her cancer activity and she was switched over to maintenance immunotherapy alone States that her Lexapro was discontinued recently due to her persistent hyponatremia and she has been feeling more depressed lately and often suddenly break down crying, especially at night Admits that she feels scared of what is going to happen to her with all of her current ongoing issues She denies any fever, headaches or dizziness Denies any chest pains, no increased SOB - is currently still on oxygen at 2 LPM No nausea/vomiting, no abdominal pain No change in bowel habits noted She had some follow up labs done yesterday - to discuss her results She would also like to get her flu shot today Winifred of care was reviewed and updated today Patient has a healthcare proxy in place and on file; they were provided with a MOLST form and instructed to complete these as soon as possible IPPE/AWV: c/o of Annual Wellness Visit, subsequent visit. Medical / Social History Reviewed Past Medical History Yes . Winifred of Care / Care Team list updated Yes . Surgical/Hospitalization History Yes . Current Medications (including OTC and supplements) Yes . Family History Yes . Tobacco Control form Yes . AUDIT-C (Alcohol use) form Yes . Illicit drug use in Social History Yes . Current diagnosis of depression? No Appropriate PHQ2/PHQ9 completed Yes . Data entered by Product Operations Associate and reviewed by provider Home Safety Throw rugs? No Grab bars? No Raised toilet seats? No Working smoke detectors? Yes Working carbon monoxide detectors? Yes Data entered by Product Operations Associate and reviewed by provider Activities of Daily Living (ADLs) Difficulty bathing or showering? No Difficulty dressing? No Difficulty using the toilet? No Difficulty getting in and out of bed? No Difficulty walking? No Receives help from another person with any of the above tasks? No Instrumental Activities of Daily Living (IADLs) Uses the telephone without help Gets to places out of walking distance without help Goes shopping for groceries without help Prepares own meals without help Does own minor home maintenance without help Does own laundry without help Does own housework without help Manages own money without help Currently takes medications? Yes Takes medication without help End-of-Life Planning Discussed advance directive Yes Advance directive on file Discussed wishes expressed in advance directive agreed to following patient's wishes Fall Risk: Fall History Have you had any falls with injury in the past year? No . Have you had two or more falls in the past year? No . Fall Risk Assessment: No falls in the past year . HRA filled out by the patient, reviewed by Provider and scanned. [facility] Medical History (Updated 01/15/24 @ 06:11 by Sarthak Person MD) Depression Enterococcus, vancomycin-resistant Small cell lung cancer COPD (chronic obstructive pulmonary disease) Small cell lung cancer (~08/2023) MDD (major depressive disorder), recurrent episode, moderate Abnormal CT scan, chest Mass of right lung Lung mass Bronchitis Rectal prolapse Nicotine dependence, cigarettes, uncomplicated Nonrheumatic mitral (valve) insufficiency Pulmonary nodule History of hepatitis C Osteopenia (~2011) IV drug user Endocarditis of mitral valve (~11/2017) Mitral valve prolapse Mitral regurgitation Early satiety Paresthesia of left leg Allergic rhinitis Facet arthritis of lumbar region Cervical spondylosis Vitamin D deficiency Pure hypercholesterolemia Benign essential hypertension GERD (gastroesophageal reflux disease) Anxiety Surgical History History of bronchoscopy (~2023) History of liver biopsy (~2009) History of partial colectomy (~2014) History of hysteroscopy (~2010) History of colonoscopy (~2017) Family History Father Internal bleeding Mother Medical history unknown Social History Household Members: Children Housing: House Housing Other:: lives alone with her cat Malena Are you a primary manager critical care to a significant other at home: No Do you presently have visiting nurse or other home services: Yes ([facility]) Alcohol intake: former Patient Tobacco Use Status: Current everyday Tobacco user Tobacco use type: Cigarette Cigarette Packs Per Day: 5 Cigarettes Per Day: 5 Years Smoked: 45 e-Cigarette/Vaping Use: Never Used Second Hand Smoke Exposure: Yes Substance Use Type: Marijuana Advance Directives Date on File: 09/23/23 service: No Current occupational status: unemployed Sexual orientation: Straight/Heterosexual Gender identity: Female Cognitive needs: No Hearing needs: No Vision needs: Yes Female Reproductive History Menstrual Age of Menarche: 14 Questionnaire Medicare Wellness Checkup What gender do you identify with?: female During the past 4 weeks, how much have you been bothered by emotional problems such as feeling anxious, depressed, irritable, sad or downhearted, and blue?: moderately During the past 4 weeks, has your physical & emotional health limited your social activities with family, friends, neighbors, or groups?: quite a bit During the past 4 weeks, how much bodily pain have you generally had?: moderate pain During the past 4 weeks, was someone available to help you if you needed & wanted help?: yes, a little During the past 4 weeks, what was the hardest physical activity you could do for at least 2 minutes?: moderate Can you get to places out of walking distance without help? (For eg., can you travel alone on buses, taxis or drive your car?): Yes Can you go shopping for groceries or clothes without someone's help?: Yes Can you prepare your own meals?: Yes Can you do your housework without help?: Yes Because of any health problems, do you need the help of another person with your personal care needs such as eating, bathing, dressing or getting around the house?: No Can you handle your own money without help?: Yes During the past 4 weeks, how would you rate your health in general?: good During the past 4 weeks how have things been going for you?: good & bad parts about equal Are you having difficulties driving your car?: no Do you always fasten your seat belt when you are in a car?: yes, usually During past 4 weeks, have you been bothered by the following: never: Falling or dizzy when standing up, Sexual problems? and Problems using the telephone?, seldom: Teeth or denture problems? and sometimes: Trouble eating well? and Tiredness or fatigue? Have you fallen 2 or more times in the past year?: No Are you afraid of falling?: No Are you a smoker?: yes, and I might quit During the past 4 weeks, how many drinks of wine, beer, or other alcoholic beverages did you have?: no alcohol at all Do you exercise for about 20 minutes 3 or more times a week?: no, I usually do not exercise this much Have you been given information to help with the following?: yes: Hazards in your house that might hurt you? and yes: Keeping track of your medications? How often do you have trouble taking medicines the way you have been told to take them?: I always take medicine as prescribed How confident are you that you can control & manage most of your health problems?: somewhat confident What is your race?: White Mini Mental State Exam (MMSE) Orientation What is the (year) (season) (date) (day) (month)?: year, season, date, day and month Where are we (state) (county) (town or city) (hospital) (floor)?: state, county, town or city, hospital/clinic and floor Score Score: 10 Activity of Daily Living Bathing - sponge bath, tub bath or shower: receives no assistance (gets in/out by self, if usual bathing means Dressing - getting clothes from closets & drawers, including inner/outer garments & fasteners.: gets clothes & gets completely dressed without help Toileting - going to the 'toilet room' for urine/bowel elimination & cleaning self/arranging clothes: goes to toilet room, cleans self, arranges clothes without help Transfer: moves in & out of bed and chair without help (may use support object) Continence: controls urination/bowel movements completely by self Feeding: feeds self without help Total Score: 0 Information obtained from: patient Using telephone: independent Traveling: independent Shopping: independent Preparing meals: independent Housework: independent Taking medicine: independent Managing money: independent PHQ-9 Over the last 2 weeks, how often have you been bothered by any of the following problems? 1. Little interest or pleasure in doing things: several days 2. Feeling down, depressed, or hopeless: several days 3. Trouble falling or staying asleep, or sleeping too much: more than half the days 4. Feeling tired or having little energy: several days 5. Poor appetite or overeating: several days 6. Feeling bad about yourself - or that you are a failure or have let yourself or your family down: several days 7. Trouble concentrating on things, such as reading the newspaper or watching television: not at all 8. Moving or speaking so slowly that other people could have noticed. Or the opposite - being so fidgety or restless that you have been moving around a lot more than usual: not at all 9. Thoughts that you would be better off or of hurting yourself in some way: not at all Total score: 7 Depression Screening Interpretation: Positive Depression Screening Follow-up: Existing condition and In treatment Depression Screening Done: Yes 73279 - PHQ-9 Billing: Yes Source: Developed by Drs. Demar Wolf, Yocasta Slater, Mathew Juarez and colleagues, with an educational mendoza from [employer]. Review of Systems Const Denies chills, Reports difficulty sleeping, Reports fatigue, Denies fever(s) and Denies headache(s) ENT Denies dysphagia, Denies dizziness, Denies otalgia, Denies headache(s), Denies neck pain, Denies odynophagia and Denies sore throat Card Denies chest pain, Denies palpitations and Reports dyspnea on exertion Resp Denies chest congestion, Reports cough (frequent - coughs up clear to ywhitish phlegm at times), Denies hemoptysis, Denies pain with cough, Reports dyspnea on exertion and Denies wheezing GI Denies abdominal pain, Denies hematochezia, Denies constipation, Denies dysphagia, Denies heartburn, Reports fecal incontinence (at times), Reports loose stools (recurrent), Denies nausea, Denies odynophagia and Denies vomiting Denies difficulty voiding, Denies nocturia, Denies dysuria and Denies urinary urgency Musc Reports back pain (over the lumbar spine - chronic), Reports arthralgias and Denies neck pain Skin/Breast Denies rash Neuro Denies dizziness, Denies headache(s) and Reports paresthesias (in the left leg) Psych Reports anxiety and Reports depression (increasing) Endo Reports fatigue and Denies palpitations Aller/Immun Denies wheezing Physical Exam Vital Signs: Last Vital Signs Pulse 86 01/14/24 11:37 BP 136/84 01/14/24 11:37 Pulse Ox 98 01/14/24 11:37 Oxygen Delivery Method Room Air 01/14/24 11:37 Oxygen Flow Rate 2 01/14/24 11:37 BMI result Body Mass Index 20.5 IPPE/AWV: Balance Romberg Yes . Tandem walk Yes . Walk and Turn Yes . Rise from sit to stand Yes . Vision Corrective lens No Vision screen pass Hearing Whisper test pass . Urinary incont. no. EKG Not clinically necessary. Const General: no acute distress, alert and tired appearing Orientation/consciousness: patient oriented x3 HEENT Ears: TM's normal bilaterally and EAC's normal Throat: Yes posterior oropharynx normal and Yes tonsils normal (no TP congestion noted) Neck Neck: Yes no lymphadenopathy and Yes supple Resp Auscultation: no rales, rhonchi (occasional) throughout, no wheezes and diminished lung sounds bilateral Cardio Rate: regular rate Rhythm: regular rhythm Heart sounds: no murmurs GI Palpation (GI): Soft to palpation and nontender Auscultation: normal bowel sounds General: Yes no CVA tenderness Back/Spine/Pelvis Back: no CVA tenderness Thoracic/Lumbar Spine: lumbar spinal tenderness Skin Rashes: no rashes Neuro General: patient oriented x3 Cognition (Neuro): normal cognition Extrem General: Yes no clubbing, cyanosis or edema Psych Thought process: Normal thought process present Office Procedures Flu Questionnaire Does the patient have a severe egg allergy?: No Does the patient have severe life threatening allergies?: No Does the patient have a fever or illness today?: No Has the patient ever had Guillain-[place] Syndrome?: No Has the patient ever had any past reaction to a flu shot?: No Immunizations Fluarix Triv [id number] (PF) 45 mcg (15 mcg x 3)/0.5 mL IM syringe Performing Provider: Sarthak Person MD Performing Location: [facility] Administered by: ROSIBEL Harrison on 01/14/24 11:47 Dose Route Admin Location Dispensed Lot Number Expiration Date NDC Production Support Engineer 0.5 mL IM Left Deltoid 0.5 mL [id number] 10/03/24 [id number] [employer] VIS Given Date VIS Provided VIS Publication Date 01/14/24 Single Vaccine 20 Eligibility Eligibility Date Funding Source Not [facility] Eligible 01/14/24 Private Results Reviewed Results Reviewed: Laboratory Tests 01/03/24 01/13/24 13:10 08:59 WBC 5.4 Hgb 11.8 L D Hct 35.9 L D Plt Count 113 L D Sodium 141 Potassium 4.3 Creatinine 0.72 Estimated GFR > 60 Random Glucose 126 H Calcium 9.3 AST 15 ALT 8 B-Natriuretic Peptide 205 H Assessment & Plan Assessment & Plan (1) Medicare annual wellness visit, subsequent: Code(s): Z00.00 - Encounter for general adult medical examination without abnormal findings Plan: HRA form discussed and completed with patient; form will be scanned into patient's chart [facility] updated (2) Small cell lung cancer: Code(s): C34.90 - Malignant neoplasm of unspecified part of unspecified bronchus or lung Qualifiers: Laterality: right Lung location: upper lobe of lung Qualified Code(s): C34.11 - Malignant neoplasm of upper lobe, right bronchus or lung Plan: She is currently on maintenance immunotherapy with atezolizumab for her small cell right lung carcinoma, 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 She is doing fairly well with her current regimen. Code(s): J44.9 - Chronic obstructive pulmonary disease, unspecified Qualifiers: COPD type: emphysema Emphysema type: unspecified Qualified Code(s): J43.9 - Emphysema, unspecified Plan: Appears stable at present She is currently still on oxygen inhalation at 2 LPM Continue Pulmicort Flexhaler 180 mg 2 inhalations BID, Spiriva Handihaler 18 mcg inhale contents of 1 capsule QD and Albuterol HFA 2 inhalations Q 6 hours PRN Follow up with pulmonary as scheduled (4) Benign essential hypertension: Code(s): I10 - Essential (primary) hypertension Plan: Reinforced low sodium diet - goal is systolic BP of at least 120 to 130 mm or less Continue Lisinopril 5 mg QD (5) Pure hypercholesterolemia: Code(s): E78.00 - Pure hypercholesterolemia, unspecified Plan: Results of her labs done yesterday reviewed and discussed with patient although these did not include a fasting lipid profile Reinforced low cholesterol diet Continue Simvastatin 40 mg QD Will recheck her labs and fasting lipids in 4 months for follow up (6) Mitral valve prolapse: Code(s): I34.1 - Nonrheumatic mitral (valve) prolapse Plan: Transesophageal echocardiogram done on 10/03/20 showed normal LV systolic and diastolic function, moderately severe MR and severe mitral prolapse Repeat echocardiogram done in 04/2022 and on 10/14/2022 revealed no significant changes - ?normal LV systolic function, with mildly dilated left atrium, prolapse of the middle posterior scallop with moderately severe eccentric mitral regurgitation, normal RV systolic pressure and no gross pericardial effusion Patient currently has no clinical signs of heart failure although she continues to complain of?some shortness of breath with exertion? Will need endocarditis prophylactic prior to any dental work? Follow up with cardiology as scheduled (7) Impaired fasting glucose: Code(s): R73.01 - Impaired fasting glucose Plan: Her RBS was at 126 mg/dl on her labs done yesterday HgbA1c was normal at 5.5% on her labs done a few months ago; was previously at 5.1% Reinforced low calorie diet (8) Hyponatremia: Code(s): E87.1 - Hypo-osmolality and hyponatremia Plan: Resolved - her serum sodium was normal at 141 on her labs done yesterday Continue NaCl tab to 1 gm BID This also appears to have improved a lot when she was taken off her SSRI (Escitalopram) Follow up with nephrology as scheduled (9) Gastroparesis: Comment: Gastric Emptying Study = Abnormal - 13% retention of food by 4 hours. - 10/30/2020) Code(s): K31.84 - Gastroparesis Plan: Patient is again reminded to eat small frequent feedings instead of eating 3 large meals a day to help minimize some of her GI symptoms Advised that there is currently no effective treatment or medications for gastroparesis Follow-up with GI as scheduled (10) GERD (gastroesophageal reflux disease): Code(s): K21.9 - Gastro-esophageal reflux disease without esophagitis Qualifiers: Esophagitis presence: without esophagitis Qualified Code(s): K21.9 - Gastro-esophageal reflux disease without esophagitis Plan: Dietary restrictions reinforced Continue Pantoprazole 40 mg BID and Sucralfate 4 gm QD at noon Follow up with GI as scheduled (11) Rectal bleeding: Code(s): K62.5 - Hemorrhage of anus and rectum Plan: Recurrent - is most likely due to her anal/perianal irritation from her frequent bouts of loose stools and her rectal prolapse Colonoscopy was last done in [address] Kasper She continues to follow up with GI for this issue and is on Lotronex (12) Anal sphincter incompetence: Code(s): K62.89 - Other specified diseases of anus and rectum Plan: She was seen for evaluation of this issue by Dr. Laughlin on 10/01/22 and was advised that she should be more watchful of her diet so as not to aggravate her symptoms Has been instructed to use Silvadene cream and Canasa suppositories as needed to help calm down/alleviate her chronic anal irritation (13) Anemia: Code(s): D64.9 - Anemia, unspecified Qualifiers: Anemia type: iron deficiency Iron deficiency anemia type: inadequate dietary iron intake Qualified Code(s): D50.8 - Other iron deficiency anemias Plan: Corrected with oral iron supplements Continue FeSO4 325 mg QD Will recheck her CBC in 4 months for follow up (14) Facet arthritis of lumbar region: Comment: (+Hx of old L5 compression fracture) Code(s): M47.816 - Spondylosis without myelopathy or radiculopathy, lumbar region Plan: Reinforced activity and weight lifting restrictions to avoid aggravating her lower back Continue Oxycodone 5 mg 1 to 2 times a day as needed for severe pain (15) Cervical spondylosis: Code(s): M47.812 - Spondylosis without myelopathy or radiculopathy, cervical region Plan: Continue Oxycodone 5 mg Q 6 hours PRN for pain (16) Vitamin D deficiency: Code(s): E55.9 - Vitamin D deficiency, unspecified Plan: Continue Vitamin D3 2000 units QD (17) Osteopenia: Onset Date: ~2011 Comment: (Bone Dexa: T-Score -1.3 lumbar - 12/18/2011) Code(s): M85.80 - Other specified disorders of bone density and structure, unspecified site Qualifiers: Osteopenia location: unspecified Qualified Code(s): M85.80 - Other specified disorders of bone density and structure, unspecified site Plan: BMD last done in 2011 and has not had repeat BMD done since (last one ordered in 2013 was not done for unclear reasons) Will need to get this updated again soon, once her current and more pressing issues (particularly her rectal bleeding) are addressed and controlled (18) Overactive bladder: Code(s): N32.81 - Overactive bladder Plan: Continue Vesicare 10 mg QD - states that Rx has helped a lot with her symptoms (19) Anxiety: Code(s): F41.9 - Anxiety disorder, unspecified Plan: Continue Lorazepam 1 mg BID PRN and Hydroxyzine 50 mg Q HS (20) Depression: Code(s): F32.9 - Major depressive disorder, single episode, unspecified Qualifiers: Depression Type: major depressive disorder Major depression recurrence: recurrent Active/Remission status: currently active Major depression episode severity: unspecified Qualified Code(s): F33.9 - Major depressive disorder, recurrent, unspecified Plan: Patient was taken off Escitalopram a couple of months ago due to her hyponatremia and her Mirtazapine was increased from 15 mg to 30 mg Q HS to compensate for the loss of her Escitalopram but she was apparently not aware of this and continues on Mirtazapine 15 mg Q HS Will now have her increase her Mirtazapine to 30 mg Q HS Follow up with psychiatry as scheduled Plan As requested, flu vaccine given to patient today Follow up in 4 months Orders: Orders Complete Blood Count Auto Diff 4 Months D64.9 - Anemia, unspecified Lipid Panel 4 Months E78.00 - Pure hypercholesterolemia, unspecified TSH reflex Free T4 4 Months E78.00 - Pure hypercholesterolemia, unspecified UA CC w/rflx Micro + Cult 4 Months R30.0 - Dysuria Influenza [id number] Immunization 01/14/24 Z23 - Encounter for immunization Comprehensive Ewen. Panel Fast 4 Months E78.00 - Pure hypercholesterolemia, unspecified Medications: Changed From mirtazapine 15 mg PO BEDTIME To mirtazapine 30 mg PO BEDTIME Refilled oxycodone 5 mg PO Q6H PRN 30 tabs 0RF pain hydrocortisone 2.5% (Proctozone-HC) 1 appl IN BID 30 grams 3RF Quality Reporting (2019) Depression/Bipolar (159/160/161/177) PHQ-9: Total score: 7 Coding Level of Care Code Medicare Subsequent (G0439) Est Pt Level 4 (40624) Diagnoses Medicare annual wellness visit, subsequent Z00.00 Small cell carcinoma of upper lobe of right lung C34.11 Laterality: right Lung location: upper lobe of lung Pulmonary emphysema, unspecified emphysema type J43.9 COPD type: emphysema Emphysema type: unspecified Benign essential hypertension I10 Pure hypercholesterolemia E78.00 Mitral valve prolapse I34.1 Impaired fasting glucose R73.01 Hyponatremia E87.1 Gastroparesis K31.84 Gastroesophageal reflux disease without esophagitis K21.9 Esophagitis presence: without esophagitis Rectal bleeding K62.5 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 Iron deficiency anemia secondary to inadequate dietary iron intake D50.8 Anemia type: iron deficiency Iron deficiency anemia type: inadequate dietary iron intake 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 Cervical spondylosis M47.812 Vitamin D deficiency E55.9 Osteopenia, unspecified location M85.80 Osteopenia location: unspecified Overactive bladder N32.81 Anxiety F41.9 Episode of recurrent major depressive disorder, unspecified depression episode severity F33.9 Depression Type: major depressive disorder Major depression recurrence: recurrent Active/Remission status: currently active Major depression episode severity: unspecified CPT Codes Advance Care Planning - Advance Care Planning discussion: On file, no changes ([id number]) Advance Care Planning Advance Care Planning discussion: On file, no changes
== END 2024-01-14 12:24 | disposition home or self-care (01) ==
PROVIDERS: PCP Internal Medicine; Visit Provider Internal Medicine
DX: Z00.00 Encounter for general adult medical examination without abnormal findings (principal); J43.9 Emphysema, unspecified; F33.9 Major depressive disorder, recurrent, unspecified; C34.11 Malignant neoplasm of upper lobe, right bronchus or lung; I10 Essential (primary) hypertension; E78.00 Pure hypercholesterolemia, unspecified; I34.1 Nonrheumatic mitral (valve) prolapse; R73.01 Impaired fasting glucose; E87.1 Hypo-osmolality and hyponatremia; K31.84 Gastroparesis; K21.9 Gastro-esophageal reflux disease without esophagitis; K62.5 Hemorrhage of anus and rectum

== ENCOUNTER → 2024-01-14 11:10 | Outpatient (BNVA) | payer OTHER, SELFPAY | PROVIDERS: PCP Internal Medicine; Visit Provider Internal Medicine | DX: Z00.01 Encounter for general adult medical examination with abnormal findings (principal); Z23 Encounter for immunization; C34.11 Malignant neoplasm of upper lobe, right bronchus or lung; J43.9 Emphysema, unspecified; I10 Essential (primary) hypertension; E78.00 Pure hypercholesterolemia, unspecified; I34.1 Nonrheumatic mitral (valve) prolapse; R73.01 Impaired fasting glucose; E87.1 Hypo-osmolality and hyponatremia; K31.84 Gastroparesis; K21.9 Gastro-esophageal reflux disease without esophagitis; K62.5 Hemorrhage of anus and rectum; K62.89 Other specified diseases of anus and rectum; D50.8 Other iron deficiency anemias; M47.816 Spondylosis without myelopathy or radiculopathy, lumbar region; M47.812 Spondylosis without myelopathy or radiculopathy, cervical region; E55.9 Vitamin D deficiency, unspecified; F41.9 Anxiety disorder, unspecified; F33.9 Major depressive disorder, recurrent, unspecified | CPT/HCPCS: 90471; 90656; 96127; 99212 ==

== ENCOUNTER 2024-01-15 13:36 | Outpatient (AMB) | payer OTHER, SELFPAY ==
--- NOTE | 2024-01-15 13:43 | MHC.OFFVIS ---
Vital Signs 01/15/24 13:47 Height 5 ft 2 in Weight 110 lb 10.753 oz BMI 20.2 BP 127/95 H Blood Pressure Location Lt brachial Position Sitting Pulse 86 Intake Visit Reasons: follow up from ER [facility] GI bleed Intake Note: Patient in office today s/p EGD and sigmoidoscopy. CC: Patient states that she has a rectal prolapse and when she does chemotherapy it bleeds. She reports that she has been getting blood transfusions. She continues to have rectal bleeding and was seen at the ER by the end of last month. 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 GI bleed: Details: Assessment & Plan (1) Acute diarrhea: Comment: acute on chronic r/t abx use Code(s): R19.7 - Diarrhea, unspecified (2) GERD (gastroesophageal reflux disease): Code(s): K21.9 - Gastro-esophageal reflux disease without esophagitis Qualifiers: Esophagitis presence: without esophagitis Qualified Code(s): K21.9 - Gastro-esophageal reflux disease without esophagitis (3) Irritable bowel syndrome with diarrhea: Code(s): K58.0 - Irritable bowel syndrome with diarrhea (4) Gastroparesis: Comment: Gastric Emptying Study = Abnormal - 13% retention of food by 4 hours. - 10/30/2020) Code(s): K31.84 - Gastroparesis (5) Anal sphincter incompetence: Code(s): K62.89 - Other specified diseases of anus and rectum Plan She had an ovarian US but my ovaries were too small to see anything. She had her records transferred from Dr. Barth to [facility] and I think a new opinion from a rectal surgeon will be of great benefit to her. The fluconazole helped her over the florinda infection. Her current GI regimen consists of care feet 4 g x 1, pantoprazole 40 mg in the morning, Reglan 5 mg 3 times a day, and Lotronex 1 mg twice a day. However, she will still have incontinence of stools even with solid bowel movements due to her rectal incontinence. ROV 6 mos. Medications: Refilled alosetron 1 mg (2 x 0.5 mg) PO DAILY 60 tabs 6RF K58.0 - Irritable bowel syndrome with diarrhea metoclopramide HCl (Reglan) 5 mg PO .TIDAC 30 days 90 tabs 6RF K31.84 - Gastroparesis, R11.2 - Nausea with vomiting, unspecified sucralfate (Carafate) 4 grams (4 x 1 gram) PO QNOON 120 tabs 3RF K62.9 - Disease of anus and rectum, unspecified, R15.9 - Full incontinence of feces pantoprazole 40 mg PO DAILY 90 days 90 tabs 1RF K29.70 - Gastritis, unspecified, without bleeding EGD 12/29/23 Findings: Larynx:normal Esophagus: GE junction at 37 cm, diaphragm hiatus at 37 cm, patchy erythema at GEJ, and some swelling consistent with esophagitis Stomach: patchy erythema and few erosions with some blanching consistent with possible ischemia . Mid body there was granular erythematous mucosa, bx taken, Grade 2 flap valve on retroflexed examination of the cardia. the pyloric outlet was tight and was dilated by passing the scope with oozing noted. Hemospray was applied to the area. Duodenum: Normal bulb and descending duodenum, Intervention: Biopsies as noted above, Impression/Findings: gastritis, erosions esophagitis possible gastric ischemia mild tight pyloric outlet PLAN: cont with PPI and carafate GERD precautions can consider o/p duplex to check celiac flow BIOPSY Received: 12/29/23 Diagnosis Stomach, biopsy: Antral-type and oxyntic mucosa with mild chronic inactive inflammation; no Helicobacter organisms seen. CORRESPONDENCE On 12/23/23 @ 15:25 Leonard Richard Wrote To Nicki,July OK, I will keep her appointment then for 01/14 because she is due for 6 months follow up. On 12/22/23 @ 13:58 NickiShona Wrote To Leonard Richard No, all of her problems stem from her chemotherapy at honestly there is not much that I can do for her. She really needs to continue to follow-up with her oncology team about the bleeding. On 12/21/23 @ 16:43 Leonard Richard Wrote To Caceres She is scheduled for hospital follow up on 01/14. Does she needs to come in sooner? please advise. TODAY'S VISIT She has been through A LOT!!! She was dx'ed with small cell lung ca and underwent chemotherapy and now is on immunotherapy. She had a hard time with pancytopenia and transfusions, nausea and vomiting, and then a severe VRE infection. She then developed black stools and was admitted and an EGD was performed by Dr. Spear - there were some erosions but nothing else serious. She is dealing with a severe rectal prolapse that comes out and it looks like a penis hanging out of me. She continues on her Lotronex, sucralfate, protonix bid and reglan 5mg tid. I send a note to Dr. Spear as I am unfamiliar with what test he wanted ordered to evaluate the celiac artery (or why he wanted it). She is moving to live with her children for help during her illness. 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 Small cell lung cancer Depression Enterococcus, vancomycin-resistant Small cell lung cancer COPD (chronic obstructive pulmonary disease) Small cell lung cancer (~08/2023) MDD (major depressive disorder), recurrent episode, moderate Abnormal CT scan, chest Mass of right lung Lung mass Bronchitis Rectal prolapse Nicotine dependence, cigarettes, uncomplicated Nonrheumatic mitral (valve) insufficiency Pulmonary nodule History of hepatitis C Osteopenia (~2011) IV drug user Endocarditis of mitral valve (~11/2017) Mitral valve prolapse Mitral regurgitation Early satiety Paresthesia of left leg Allergic rhinitis Facet arthritis of lumbar region Cervical spondylosis Vitamin D deficiency Pure hypercholesterolemia Benign essential hypertension GERD (gastroesophageal reflux disease) Anxiety Surgical History History of bronchoscopy (~2023) History of liver biopsy (~2009) History of partial colectomy (~2014) History of hysteroscopy (~2010) History of colonoscopy (~2017) Family History Father Internal bleeding Mother Medical history unknown Social History Household Members: Children Housing: House Housing Other:: lives alone with her cat Gifarhan Are you a primary director of critical care to a significant other at home: No Do you presently have visiting nurse or other home services: Yes ([facility]) Alcohol intake: former Patient Tobacco Use Status: Current everyday Tobacco user Tobacco use type: Cigarette Cigarette Packs Per Day: 5 Cigarettes Per Day: 5 Years Smoked: 45 e-Cigarette/Vaping Use: Never Used Second Hand Smoke Exposure: Yes Substance Use Type: Marijuana Advance Directives Date on File: 09/23/23 service: No Current occupational status: unemployed Sexual orientation: Straight/Heterosexual Gender identity: Female Cognitive needs: No Hearing needs: No Vision needs: Yes Female Reproductive History Menstrual Age of Menarche: 14 Review of Systems Const Denies fatigue, Denies fever(s), Denies night sweats, Denies poor appetite and Reports weight loss Eyes Details: glasses Reports requires corrective lenses ENT Reports Normal hearing present, Denies dental pain, Denies dysphagia, Denies hearing loss, Denies mouth pain, Denies odynophagia, Denies throat swelling, Denies tongue swelling and Reports other (Dentition adequate) Card Reports no additional complaints Resp Reports no additional complaints GI Details: SEVERE RECTAL PROLAPSE Denies abdominal pain, Denies melena, Denies bloating, Denies hematochezia, Denies constipation, Denies GI cramping, Denies dysphagia, Denies excessive flatus, Reports early satiety, Reports heartburn, Reports diarrhea, Denies nausea, Denies odynophagia, Denies vomiting and Denies hematemesis Skin/Breast Denies pruritus, Denies lesions, Denies rash and Denies jaundice Neuro Reports Normal hearing present and Denies Abnormal speech present Endo Denies fatigue Aller/Immun Denies throat swelling and Denies tongue swelling Physical Exam Vital Signs: Last Vital Signs Pulse 86 01/15/24 13:47 BP 127/95 H 01/15/24 13:47 BMI result Body Mass Index 20.2 Const General: cooperative, no acute distress, well developed and well groomed Nutritional Appearance: average body habitus and well nourished Orientation/consciousness: oriented to person, oriented to place and oriented to time Limitations: No language barrier HEENT Head: Yes normocephalic and Yes atraumatic Eyes General: appearance normal, both eyes and all related structures Pupils: Equal, round and reactive pupils present Neck Neck: Yes normal visual inspection and Yes no lymphadenopathy Thyroid: Thyroid normal Resp Other: on oxygen via n/c Effort & Inspection: normal respiratory effort and able to speak in complete sentences Auscultation: crackles Cardio Rate: regular rate Rhythm: regular rhythm Heart sounds: Normal, physiologic split S2 sound present Peripheral pulses: radial pulses present and posterior tibial pulses present GI Inspection: No distended and No Abdominal panniculus present Palpation (GI): Soft to palpation, nontender, no guarding, not rigid and No hepatosplenomegaly present Percussion: Yes normal to percussion Auscultation: normal bowel sounds Rectal Exam - Female: deferred Skin General skin exam: no rashes or lesions noted, turgor normal, skin not dry, no jaundice, No spider nevi and no striae Rashes: no rashes Nails: normal Neuro General: oriented to person, oriented to place and oriented to time Cranial nerves: Yes Equal, round and reactive pupils present and Yes Normal hearing present Speech: No Abnormal speech present Extrem General: Yes normal to inspection, No clubbing, No cyanosis and No edema Psych Appearance: grossly normal and well kempt Mental Status: mental status grossly normal Speech and movement: Normal speech and movement present Affect: normal affect Attitude: cooperative Thought process: Normal thought process present and not confabulating Thought content: Normal thought content present Insight: Limited insight present (Psych) Judgement: Limited judgement present (Psych) Assessment & Plan Assessment & Plan (1) Erosive gastritis: Code(s): K29.60 - Other gastritis without bleeding Category: Medical (2) Irritable bowel syndrome with diarrhea: Code(s): K58.0 - Irritable bowel syndrome with diarrhea Category: Medical (3) GERD (gastroesophageal reflux disease): Code(s): K21.9 - Gastro-esophageal reflux disease without esophagitis Category: Medical Qualifiers: Esophagitis presence: without esophagitis Qualified Code(s): K21.9 - Gastro-esophageal reflux disease without esophagitis (4) Gastroparesis: Comment: Gastric Emptying Study = Abnormal - 13% retention of food by 4 hours. - 10/30/2020) Code(s): K31.84 - Gastroparesis Category: Medical (5) Rectal bleeding: Code(s): K62.5 - Hemorrhage of anus and rectum Category: Medical (6) Small cell lung cancer: Comment: As noted above her recent bronchoscopic exam and bronchial biopsy were positive for small cell carcinoma. She has been receiving chemotherapy, under care of Dr. Valencia , tolerating the therapy well. Code(s): C34.90 - Malignant neoplasm of unspecified part of unspecified bronchus or lung Category: Medical (7) Anal sphincter incompetence: Code(s): K62.89 - Other specified diseases of anus and rectum Category: Medical Plan She has been through A LOT!!! She was dx'ed with small cell lung ca and underwent chemotherapy and now is on immunotherapy. She had a hard time with pancytopenia and transfusions, nausea and vomiting, and then a severe VRE infection. She then developed black stools and was admitted and an EGD was performed by Dr. Spear - there were some erosions but nothing else serious. She is dealing with a severe rectal prolapse that comes out and it looks like a penis hanging out of me. She continues on her Lotronex, sucralfate, protonix bid and reglan 5mg tid. I send a note to Dr. Spear as I am unfamiliar with what test he wanted ordered to evaluate the celiac artery (or why he wanted it). She is moving to live with her children for help during her illness. 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
[2024-01-15 13:47] VITALS: BP 127/95; PULSE 86; BMI 20.2
== END 2024-01-15 14:55 | disposition home or self-care (01) ==
PROVIDERS: PCP Internal Medicine; Visit Provider Nurse Practitioner
DX: K29.60 Other gastritis without bleeding (principal); K58.0 Irritable bowel syndrome with diarrhea; K21.9 Gastro-esophageal reflux disease without esophagitis; K31.84 Gastroparesis; K62.5 Hemorrhage of anus and rectum; C34.90 Malignant neoplasm of unspecified part of unspecified bronchus or lung; K62.89 Other specified diseases of anus and rectum
CPT/HCPCS: 99213

== ENCOUNTER → 2024-01-15 13:36 | Outpatient (BNVA) | payer OTHER, SELFPAY | PROVIDERS: PCP Internal Medicine; Visit Provider Nurse Practitioner | DX: K21.9 Gastro-esophageal reflux disease without esophagitis (principal); K58.0 Irritable bowel syndrome with diarrhea; K31.84 Gastroparesis; K62.89 Other specified diseases of anus and rectum; K29.70 Gastritis, unspecified, without bleeding; K29.60 Other gastritis without bleeding; R19.7 Diarrhea, unspecified; R11.2 Nausea with vomiting, unspecified; R15.9 Full incontinence of feces; C34.90 Malignant neoplasm of unspecified part of unspecified bronchus or lung; Z92.21 Personal history of antineoplastic chemotherapy | CPT/HCPCS: 99212 ==

== ENCOUNTER 2024-01-26 08:19 | Outpatient (REF) | payer OTHER, SELFPAY ==
--- NOTE | ~2024-01-26 | US_ITS ---
EXAMINATION: DUPLEX DOPPLER MESENTERIC ARTERIES CLINICAL INFORMATION: Melena COMPARISON: None TECHNIQUE: Duplex Doppler ultrasound evaluation of the abdominal aorta and mesenteric arteries. FINDINGS: AORTA: Normal in caliber with scattered atherosclerotic plaque. Normal arterial waveforms. Proximal to SMA: 66.6 cm/s Distal to SMA: 41.8 cm/s CELIAC: Inspiration supine: 200 cm/s Inspiration erect: 165 cm/s Expiration supine: 199 cm/s Expiration erect: 218 cm/s SUPERIOR MESENTERIC ARTERY: Proximal: 139 cm/s Mid: 119 cm/s Distal: 171 cm/s INFERIOR MESENTERIC ARTERY: Not visualized SPLENIC ARTERY: 180 cm/s HEPATIC ARTERY: 130 cm/s US/US SMA IMPRESSION: No evidence of significant arterial stenosis of the celiac artery and superior mesenteric artery Electronically signed by: Barron Huerta MD 02/04/2024 10:48 AM EDT
== END 2024-01-26 08:20 | disposition home or self-care (01) ==
LOC: HO.US 08:19
PROVIDERS: PCP Internal Medicine; Visit Provider Nurse Practitioner
DX: K92.1 Melena (principal)
CPT/HCPCS: 93976

== ENCOUNTER 2024-02-01 10:04 | Outpatient (AMB) | payer OTHER, SELFPAY ==
--- NOTE | 2024-02-01 10:14 | MHC.OFFVIS ---
Vital Signs 02/01/24 10:15 Height 5 ft 2 in Weight 106 lb 14.787 oz BMI 19.6 BP 92/60 Blood Pressure Location Lt brachial Position Sitting Pulse 98 Pulse Source Pulse Oximeter Pulse Oximetry (%) 97 Oxygen Delivery Method Nasal Cannula Oxygen Flow Rate 2 Intake Visit Reasons: COPD Intake Note: pt is here for follow up and states her breathing, coughing with some production, yellow with blood tinged., she does take a few breaks from oxygen in the home. Engineering Aid Required: No Allergies No Known Allergies [NO KNOWN ALLERGIES] Allergy (Unknown, Verified 02/01/24 10:30) unknown Medication List - Last Reconciled 02/01/24 by Zulma Padilla MD acetaminophen 500 mg PO Q6H PRN albuterol sulfate 90 mcg/actuation (Ventolin HFA) 1 puff PO Q6H PRN 30 days alosetron 1 mg PO DAILY@0900 amlodipine 2.5 mg PO DAILY budesonide 180 mcg/actuation (Pulmicort Flexhaler) 2 inhalations inhalation BID cholecalciferol (vitamin D3) 50 mcg PO DAILY@0900 clonazepam 0.5 mg PO BID PRN diphenoxylate-atropine 2.5-0.025 mg (Lomotil) 1 tab PO DAILY PRN fluticasone propionate 50 mcg/actuation 1 spray intranasal DAILY 30 days hydrocortisone 2.5% (Proctozone-HC) 1 appl TX BID hydroxyzine HCl 50 mg PO BEDTIME loperamide 2 mg PO Q6H PRN magnesium 250 mg PO BID metoclopramide HCl 5 mg PO TIDAC metoprolol succinate ER 50 mg PO DAILY mirtazapine 30 mg PO BEDTIME nicotine 1 patch transdermal Q24H 28 days MDD smoking nicotine (polacrilex) 4 mg buccal Q8H PRN ondansetron 8 mg PO Q8H PRN oxycodone 5 mg PO Q6H PRN pantoprazole 40 mg PO BID potassium chloride ER (K-Tab) 20 mEq PO DAILY sennosides-docusate sodium 8.6-50 mg (Senexon-S) 1 tab PO BEDTIME PRN simvastatin 40 mg PO BEDTIME sodium chloride 1,000 mg PO BID solifenacin 10 mg PO DAILY@0900 sucralfate (Carafate) 4 grams (4 x 1 gram) PO DAILY@1200 tiotropium bromide (Spiriva with HandiHaler) 1 cap inhalation DAILY Do you need a note to return to daycare/school/sports/work: No HPI HPI COPD: Details: This 64 years old female has longstanding history of smoking and chronic obstructive pulmonary disease which was controlled with medical treatment/ As she has past history of smoking she was in lung screening program. In August of 2023 discovered to have a right suprahilar mass which turned out to be Small-cell lung cancer . CT chest with contrast revealed a right suprahilar mass measuring 5.8 x 4.1 cm encasing and occluding right upper lobe bronchus with complete collapse of right upper lobe. There was a small stable left upper lobe 1 cm pulmonary nodule, enlarged mediastinal lymph nodes with 1.4 x 2.7 x 2.4 cm pretracheal lymph node. No pleural effusion or axillary adenopathy. Adrenals normal, no evidence of osseous metastatic disease. She had a CT head without contrast which was negative for metastasis. Clinical stage T3 N2, Stage IIIB LDH mildly elevated at 274, CEA 12.1 NG/ mL. She presented with severe hyponatremia with sodium of 116 millimole per L secondary to SIADH/lung cancer. She is on water restriction and has been started on sodium tablets. PET scan performed at [facility] on 09/11/2023 showed FDG avid right hilar/suprahilar mass with SUV 12.6, FDG avid mediastinal and right hilar lymphadenopathy. Left supraclavicular lymph node SUV max 4.2, right supraclavicular lymph node SUV max 2, right paratracheal SUV max 9.4, anterior mediastinal SUV max 4.8. Nonspecific focal activity in anal canal SUV 15.3. Patient has been treated with chemotherapy, and has responded well so for. She is under care of Dr. James . Tolerating chemotherapy well. Breathing is staying very stable, denies any cough or wheezing. She does get short of breath on exertion. She is on O2 2 L/minute at night and O2 2 L/minute during the daytime with the portable cylinder. Complains of the portable cylinder being too heavy and would like to get a lightweight unit ( B cylinder ) [facility] Medical History 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 Small cell lung cancer Depression Enterococcus, vancomycin-resistant Small cell lung cancer COPD (chronic obstructive pulmonary disease) Small cell lung cancer (~08/2023) MDD (major depressive disorder), recurrent episode, moderate Abnormal CT scan, chest Mass of right lung Lung mass Bronchitis Rectal prolapse Nicotine dependence, cigarettes, uncomplicated Nonrheumatic mitral (valve) insufficiency Pulmonary nodule History of hepatitis C Osteopenia (~2011) IV drug user Endocarditis of mitral valve (~11/2017) Mitral valve prolapse Mitral regurgitation Early satiety Paresthesia of left leg Allergic rhinitis Facet arthritis of lumbar region Cervical spondylosis Vitamin D deficiency Pure hypercholesterolemia Benign essential hypertension GERD (gastroesophageal reflux disease) Anxiety Surgical History History of bronchoscopy (~2023) History of liver biopsy (~2009) History of partial colectomy (~2014) History of hysteroscopy (~2010) History of colonoscopy (~2017) Family History Father Internal bleeding Mother Medical history unknown Social History Household Members: Children Housing: House Housing Other:: lives alone with her cat Gifarhan Are you a primary school childcare attendant to a significant other at home: No Do you presently have visiting nurse or other home services: Yes ([facility]) Alcohol intake: former Patient Tobacco Use Status: Current everyday Tobacco user Tobacco use type: Cigarette Cigarette Packs Per Day: 5 Cigarettes Per Day: 5 Years Smoked: 45 e-Cigarette/Vaping Use: Never Used Second Hand Smoke Exposure: Yes Substance Use Type: Marijuana Advance Directives Date on File: 09/23/23 service: No Current occupational status: unemployed Sexual orientation: Straight/Heterosexual Gender identity: Female Cognitive needs: No Hearing needs: No Vision needs: Yes Female Reproductive History Menstrual Age of Menarche: 14 Review of Systems Const All systems reviewed & are unremarkable except as noted in HPI and below Eyes Reports no additional complaints ENT Reports nasal congestion (Off and on due to allergic rhinitis) Card Denies chest pain at rest, Denies irregular heart rhythm and Denies leg edema Resp Reports as per HPI and Reports cough GI Reports heartburn (Controlled with med) Reports no additional complaints Musc Reports no additional complaints Skin/Breast Reports system reviewed and no additional complaints, except as documented Neuro Reports no additional complaints Psych Reports anxiety and Reports depression (Controlled with med) Endo Reports no additional complaints Jose L/Lymph Reports no additional complaints Physical Exam Vital Signs: Last Vital Signs Pulse 98 02/01/24 10:15 BP 92/60 02/01/24 10:15 Pulse Ox 97 02/01/24 10:15 Oxygen Delivery Method Nasal Cannula 02/01/24 10:15 Oxygen Flow Rate 2 02/01/24 10:15 BMI result Body Mass Index 19.6 Const General: comfortable, no acute distress, alert and awake Orientation/consciousness: patient oriented x3 HEENT Head: Yes normal to inspection General nose exam: No nasal polyps present, No nasal discharge present and Other nasal findings present (There is is small ulcerated lesion on the right side of the nasal septum,) Face and sinus: Yes sinuses nontender Mouth: oropharynx normal Throat: Yes posterior oropharynx normal Eyes General: appearance normal, both eyes and all related structures Neck Neck: Yes normal visual inspection, Yes no lymphadenopathy, Yes trachea midline and Yes no JVD Thyroid: Thyroid normal Chest Chest palpation & inspection: normal inspection of the chest, normal palpation of entire chest wall and no tenderness Resp Other: Percussion note hyper-resonant, breath sounds are distant with prolonged expiratory phase. There are no audible wheezes or rhonchi heard today. She has good breath sounds over the right upper lobe as well. Cardio Palpation: normal PMI Rate: regular rate Rhythm: regular rhythm Heart sounds: no gallops and no murmurs GI Palpation (GI): Soft to palpation, nontender, No hepatosplenomegaly present and no masses Auscultation: normal bowel sounds Back/Spine/Pelvis Thoracic/Lumbar Spine: thoracic and lumbar spine normal to inspection Skin General skin exam: no rashes or lesions noted Neuro General: patient oriented x3 and no focal motor deficits Cranial nerves: Yes CN's II-XII intact bilaterally Extrem General: Yes normal to inspection, Yes no clubbing, cyanosis or edema and Yes no calf tenderness Psych Speech and movement: Normal speech and movement present Affect: Sad affect present (With depressed mood) Assessment & Plan Assessment & Plan (1) COPD (chronic obstructive pulmonary disease): Comment: Patient does have chronic obstructive pulmonary disease related to her lifelong smoking. She is doing fairly well with her current regimen. Code(s): J44.9 - Chronic obstructive pulmonary disease, unspecified Category: Medical Qualifiers: COPD type: emphysema Emphysema type: unspecified Qualified Code(s): J43.9 - Emphysema, unspecified Plan: Budesonide 180 mcg per actuation ( Pulmicort flexhalor ) 2 inhalations b.i.d.. Spiriva HandiHaler 1 capsule daily Albuterol HFA 2 puffs Q 6 hours p.r.n. (2) Allergic rhinitis: Comment: , MILD CHRONIC, RELATIVELY CONTROLLED. Code(s): J30.9 - Allergic rhinitis, unspecified Category: Medical Qualifiers: Allergic rhinitis trigger: unspecified Allergic rhinitis seasonality: unspecified Qualified Code(s): J30.9 - Allergic rhinitis, unspecified Plan: Continue using Flonase-52 sprays in each nostril daily (3) Small cell lung cancer: Comment: As noted above her recent bronchoscopic exam and bronchial biopsy were positive for small cell carcinoma. She has been receiving chemotherapy, under care of Dr. Valencia , tolerating the therapy well. Code(s): C34.90 - Malignant neoplasm of unspecified part of unspecified bronchus or lung Category: Medical Plan: Continue to follow-up with oncology service Coding Level of Care Code Est Pt Level 4 (92513) Diagnoses Pulmonary emphysema, unspecified emphysema type J43.9 COPD type: emphysema Emphysema type: unspecified Allergic rhinitis, unspecified seasonality, unspecified trigger J30.9 Allergic rhinitis trigger: unspecified Allergic rhinitis seasonality: unspecified Small cell lung cancer C34.90
[2024-02-01 10:15] VITALS: BP 92/60; PULSE 98; O2SAT 97; BMI 19.6
== END 2024-02-01 10:38 | disposition home or self-care (01) ==
PROVIDERS: PCP Internal Medicine; Visit Provider Internal Medicine
DX: J43.9 Emphysema, unspecified (principal); J30.9 Allergic rhinitis, unspecified; C34.90 Malignant neoplasm of unspecified part of unspecified bronchus or lung
CPT/HCPCS: 99214

== ENCOUNTER → 2024-02-01 10:04 | Outpatient (BNVA) | payer OTHER, SELFPAY | PROVIDERS: PCP Internal Medicine; Visit Provider Internal Medicine | DX: J43.9 Emphysema, unspecified (principal); J30.9 Allergic rhinitis, unspecified; C34.90 Malignant neoplasm of unspecified part of unspecified bronchus or lung; F17.210 Nicotine dependence, cigarettes, uncomplicated | CPT/HCPCS: 99212 ==

== ENCOUNTER → 2024-03-22 08:48 | Outpatient (REF) | payer OTHER, SELFPAY ==
--- NOTE | 2024-03-22 08:51 | CA_ITS ---
Transthoracic Echocardiogram Patient (Last, First, Middle): Sarah Medina A Gender: Female Date of : 1960 Age: 63 Procedure Date: 03/22/2024 Procedure Type: Transthoracic Echocardiogram Location: OP Height: 157.48 cm Weight: 48.08 kg BSA: 1.46 m2 Heart Rate: 89 bpm BP: 92 / 60 mmHg Line Lead: DESIREE Referring MD: Michael Santos MD Symptoms: I34.0 - Nonrheumatic mitral (valve) insufficiency Study Quality: Adequate ECG Rhythm: Sinus Conclusions: - The left ventricular systolic function is mildly decreased. The calculated ejection fraction is 50% by biplane method. - There is mild posterior mitral leaflet prolapse. There is mild to moderate mitral valve regurgitation. Findings Left Ventricle Normal left ventricular cavity size. There is normal left ventricular wall thickness. The left ventricular systolic function is mildly decreased. The calculated ejection fraction is 50% by biplane method. There is mild global hypokinesis. Evidence suggests grade I (mild) diastolic dysfunction. LV peak GLS -15.2%. Right Ventricle Normal right ventricular cavity size. There is mild to moderately decreased right ventricular systolic function. Atria Both atria are normal in size. Aortic Valve There is a normal trileaflet aortic valve. There is no aortic valve stenosis. There is no aortic valve regurgitation. Mitral Valve There is mild posterior mitral leaflet prolapse. There is mild to moderate mitral valve regurgitation. The mitral regurgitation jet is directed anteriorly. Pulmonic Valve The pulmonic valve is likely normal. Tricuspid Valve There is trace tricuspid valve regurgitation. There is no evidence of pulmonary hypertension. Great Vessels The asc aorta is normal in size. Venous The inferior vena cava is normal in size and collapses greater than 50% with inspiration. Pericardium/Pleural There is no evidence of pericardial effusion. Prior Study Comparison Changes noted compared to prior study dated: 10/14/2022. LVEF lower. Mitral regurgitation less prominent. Recommendations, Care & Conclusions Consider a JHONNY if clinically appropriate. Measurements 2D Linear Measurements IVSd: 0.84 0.6-0.9/0.6-1.0 cm LVIDd: 4.56 3.9-5.3/4.2-5.9 cm LVIDd Index: 3.12 2.4-3.2/2.2-3.1 cm/m2 LVIDs: 3.37 2.0-3.6 cm LVPWd: 1.02 0.7-1.1 cm LA Diam: 3.50 2.7-3.8/3.0-4.0 cm LAIDs Index: 2.40 1.5-2.3 cm/m2 LV Mass: 177.10 67-162/88-224 g LV Mass Index: 121.30 43-95/49-115 g/m2 LVOT Diam: 2.10 3.0+(-)1.3 cm 2D Systolic Function EF 4C: 45.20 >55% EF 2C: 54.70 >55% EF BiP: 49.80 >55% Mitral Valve MV Pk E: 0.89 MV PK A: 1.06 MV Decel Time: 132.00 E/A: 0.80 E'Lateral: 5.44 E'Medial: 4.57 E/E' Med: 19.40 E/E' Lat: 16.30 PHT: 39.00 MVA PHT: 5.64 Decel Grant: 6.74 Aortic Valve AoV Pk Leonel: 0.84 AoV Pk Grad: 3.00 EDNA: 2.39 LVOT LVOT Pk Leonel: 0.60 LVOT Mn Leonel: 0.41 LVOT VTI: 0.09 LVOT Pk Grad: 1.00 LVOT Mn Grad: 1.00 LVOT Diam: 2.10 LVOT Area: 3.46 Diastolic Function MV Pk E: 0.89 MV Pk A: 1.06 E/A: 0.80 E'Medial: 4.57 E/E' Med: 19.40 E' Laterial: 5.44 E/E' Lat: 16.30 Right Ventricle TAPSE (mm): 15.00 TVS' Leonel: 7.70 Tricuspid Valve TR Pk Leonel: 2.35 TR Pk Grad: 22.00 RA Press: 3.00 RVSP: 25.00 Great Vessels Aorta Sinus of Valsalva: 3.00 2.0-3.5 cm Ao Asc: 3.10 2.1-3.4 cm Pulmonary Valve PV Pk Leonel: 0.67 Peak PV Grad: 2.00 Updated in Other Vendor System with Status of Final Nawaf Eastman MD electronically signed on 03/24/2024 1:45:39 PM with status of Final
--- OUTSIDE RECORDS SUMMARY | 2024-03-22 08:55 | XMS_ITS | Data Portability ---
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 Reports that she regrets leaving the hospital but at the time needed a cigarette. She took one of her rx'd klonopin 0.5mg earlier but promptly vomited iso anxiety. No more N/V. No abd pain. Has had some small volume painless rectal bleeding with BMs again tonight. VS wnl Per d/c summary, hgb 9.2 at d/c (and known source, internal hemorrhoids) Given patient reassurance around safety staying home right now. Reviewed precautions, including returning to the ED should she have ongoing large volume hematochezia and/or sxs acute blood loss anemia. Okay for patient to take additional 0.5mg klonopin now for anxiety. FUP with PCP. [email or web address] Not available 12/17/2023 19:52:18 Plan of Treatment Reminders Order Date Submit Date Provider Last Modified By Organization Details Last Modified Time Details Appointments None record ed. Lab None record ed. Referral None record ed. Procedures None record ed. Surgeries None record ed. Imaging None record ed. Medication Orders None record ed. Patient TargetsNo targets recorded. Patient InstructionsNo instructions recorded. Reason for Referral None Reported. Medical Equipment None Reported. Medications Name Sig Start Date Stop Date Status Note LastModified by Organization Details LastModified Time amoxicillin 500 mg capsule TAKE 4 CAPSULES BY MOUTH 2 HOURS BEFORE PROCEDURE active Not Available Not Available No t Available fluconazole 100 mg tablet TAKE 1 TABLET DAILY FOR 3 DAYS active Not Available Not Available No t Available prednisone 10 mg tablet PLEASE SEE ATTACHED FOR DETAILED DIRECTIONS active Not Available Not Available N ot Available nicotine 14 mg/24 hr daily transdermal patch APPLY 1 PATCH TOPICALLY EVERY 24 HOURS FOR SMOKING FOR 28 DAYS. active Not Available Not Available No t Available loperamide 2 mg capsule TAKE 1 CAPSULE ORALLY 2 TIMES A DAY NEEDED FOR LOOSE STOOL active Not Available Not Available No t Available azithromycin 250 mg tablet TAKE 2 TABLETS BY MOUTH TODAY, THEN TAKE 1 TABLET DAILY FOR 4 DAYS DIRECTED active Not Available Not Available No t Available metoprolol succinate ER 50 mg tablet,exten ded release 24 hr TAKE 1 TABLET BY MOUTH EVERY DAY active Not Available Not Available No t Available senna 8.6 mg tablet TAKE 1 TABLET BY MOUTH AT BEDTIME active Not Available Not Available No t Available sucralfate 1 gram tablet TAKE 4 TABLETS BY MOUTH EVERY DAY AT 12PM active Not Available Not Available Not Available prednisone 20 mg tablet TAKE 1 TABLET BY MOUTH TWICE A DAY FOR 5 DAYS FOR COPD EXCERBATION active Not Available Not Available Not Available clonazepam 0.5 mg tablet TAKE 1 TABLET BY MOUTH TWICE A DAY NEEDED FOR ANXIETY active Not Available Not Available No t Available diphenoxylat e-atropine 2.5 mg-0.025 mg tablet TAKE 1 TAB ORALLY DAILY NEEDED FOR DIARRHEA active Not Available Not Available No t Available metronidazol e 500 mg tablet TAKE 1 TABLET BY MOUTH 2 TIMES A DAY FOR 7 DAYS TAKE WITH FOOD, AVOID ALCOHOL AND VINEGAR PRODUCTS active Not Available Not Available No t Available hydroxyzine HCl 50 mg tablet TAKE 1 TABLET BY MOUTH EVERYDAY AT BEDTIME active Not Available Not Available No t Available nifedipine ER 30 mg tablet,exten ded release TAKE 1 TABLET BY MOUTH EVERY DAY active Not Available Not Available No t Available aspirin 81 mg tablet,delay ed release TAKE 1 TABLET BY MOUTH EVERY DAY active Not Available Not Available No t Available simvastatin 40 mg tablet TAKE 1 TABLET AT BEDTIME active Not Available Not Available No t Available ondansetron 8 mg disintegrati ng tablet ALLOW 1 TABLET TO DISSOLVE ON TONGUE EVERY 8 HOURS NEEDED FOR NAUSEA AND VOMITING active Not Available Not Available No t Available potassium chloride ER 20 mEq tablet,exten ded release(part /cryst) active Not Available Not Available Not Available metocloprami de 5 mg tablet TAKE 1 TABLET BY MOUTH THREE TIMES A DAY BEFORE MEALS active Not Available Not Available No t Available benzonatate 100 mg capsule TAKE 1 CAPSULE BY MOUTH 3 TIMES A DAY NEEDED FOR COUGH active Not Available Not Available No t Available doxycycline monohydrate 100 mg capsule active Not Available Not Available Not Available cephalexin 500 mg capsule TAKE 1 CAPSULE BY MOUTH EVERY 12 HOURS active Not Available Not Available No t Available pantoprazole 40 mg tablet,delay ed release TAKE 1 TABLET BY MOUTH EVERY DAY active Not Available Not Available No t Available mirtazapine 30 mg tablet TAKE 1 TABLET BY MOUTH EVERYDAY AT BEDTIME active Not Available Not Available No t Available dexamethason e 4 mg tablet TAKE 1 TABLET ORALLY 2 TIMES A DAY TAKE FOR 2 DAYS AFTER CHEMOTHERAP Y active Not Available Not Available No t Available losartan 25 mg tablet TAKE 1 TABLET BY MOUTH EVERY DAY active Not Available Not Available No t Available nicotine 21 mg/24 hr daily transdermal patch APPLY 1 PATCH TRANSDERMAL LY DAILY FOR 7 DAYS active Not Available Not Available N ot Available docusate sodium 100 mg capsule TAKE 1 CAPSULE BY MOUTH TWICE A DAY active Not Available Not Available No t Available mupirocin 2 % topical ointment APPLY TO AFFECTED AREA TWICE A DAY active Not Available Not Available No t Available lorazepam 1 mg tablet TAKE 1 TABLET BY MOUTH TWICE A DAY NEEDED FOR ANXIETY active Not Available Not Available No t Available albuterol sulfate HFA 90 mcg/actuatio n aerosol inhaler 1 PUFF ORALLY EVERY 6 HOURS NEEDED FOR SHORTNESS OF BREATH OR WHEEZING FOR 30 DAYS active Not Available Not Available Not Available fluticasone propionate 50 mcg/actuatio n nasal spray,suspen billy USE 1 SPRAY INTRANASALL Y DAILY FOR 30 DAYS active Not Available Not Available No t Available amoxicillin 875 mg-potassium clavulanate 125 mg tablet TAKE 1 TABLET BY MOUTH TWICE A DAY active Not Available Not Available No t Available magnesium 250 mg (as magnesium oxide) tablet active Not Available Not Available Not Available oxycodone 5 mg tablet TAKE 1 TABLET BY MOUTH EVERY 6 HOURS NEEDED FOR PAIN active Not Available Not Available No t Available escitalopram 20 mg tablet TAKE 1 TABLET BY MOUTH EVERY DAY active Not Available Not Available No t Available nicotine (polacrilex) 4 mg buccal lozenge USE 1 LOZENGE BUCCALLY EVERY 8 HOURS NEEDED FOR ANXIETY active Not Available Not Available No t Available alosetron 0.5 mg tablet TAKE 2 TABLETS BY MOUTH EVERY DAY active Not Available Not Available No t Available tiotropium bromide 18 mcg capsule with inhalation device INHALE 1 CAPSULE VIA HANDIHALER ONCE DAILY AT THE SAME TIME EVERY DAY active Not Available Not Available No t Available solifenacin 10 mg tablet TAKE 1 TABLET BY MOUTH EVERY DAY active Not Available Not Available No t Available mesalamine 1,[address] SUPPOSITORY RECTALLY AT BEDTIME FOR 360 DAYS. active Not Available Not Available No t Available sodium chloride 1,000 mg soluble tablet TAKE 2 TABLETS BY MOUTH 3 TIMES A DAY active Not Available Not Available Not Available Pulmicort Flexhaler 180 mcg/actuatio n breath activated INHALE 2 PUFFS BY MOUTH TWICE A DAY active Not Available Not Available No t Available cholecalcife rol (vitamin D3) 50 mcg (2,000 unit) capsule TAKE 1 CAPSULE BY MOUTH EVERY DAY active Not Available Not Available No t Available Gavilax 17 gram/dose oral powder MIX 17 GRAMS INTO LIQUID AND DRINK BY MOUTH 2 TIMES A DAY active Not Available Not Available Not Available Senexon-S 8.6 mg-50 mg tablet TAKE 1 TABLET BY MOUTH AT BEDTIME active Not Available Not Available No t Available potassium chloride ER 20 mEq tablet,exten ded release TAKE 1 TABLET BY MOUTH EVERY DAY active Not Available Not Available No t Available Procto-Med HC 2.5 % topical cream perineal applicator active Not Available Not Available N ot Available Chest Congestion Relief DM 10 mg-100 mg/5 mL oral syrup GIVE 10 ML BY 3 TIMES A DAY NEEDED FOR COUGH active Not Available Not Available No t Available Vitals Date Recorded Oxygen saturation Oxygen saturation in Arterial blood by Pulse oximetry Inhaled oxygen flow rate Body temperature Body weight Heart rate Respiratory rate Systolic blood pressure Diastolic blood pressure Provider Name and Address Organization Details Last Updated DateTime 4 99 % 99 % 2 L/min 98.4 [degF] 62035.4 48 g 88 /min 18 /min 156 mm[Hg] 86 mm[Hg] Not Available [employer] - production 4 19:23:28 Social History None recorded. Functional Status None recorded. Mental Status None recorded. Family History Nothing Reported. Medical History No medical history recorded. Gynecological HistoryNo gynecological history recorded. Obstetrics History GPAL:G 0 P 0 0 0 0 Past Encounters Encounter ID Performer Location Encounter Start Date Encounter Closed Date Diagnosis/Indication Diagnosis SNOMED-CT Code Diagnosis ICD10 Code [id number] PK AZAR MD [facility] [address] [place] [address] 12/17/2023 19:23:25 12/17/2023 21:29:56 Anxiety 75692198 F41.9 Painless r ectal bleeding 341941131 K62.5 Health Concerns Section Related Observation LastModified by Organization Detai ls LastModified Time None Recorded Concern Status LastModified by Organization Details LastModified Time None Recorded Advance Directives Directive None Recorded Payers Encounter Date Sequence Insurance Name Policy Number Policy Dong Covered Member ID Dong Member ID Guarantor Name 12/17/2023 1 [facility] - DOS ON OR AFTER 2022 - DUAL ELIGIBLE - LONG-TERM OPTIONS AND ONE CARE (MEDICARE REPLACEMENT/ADV ANTAGE - HMO) Sarah Medina [id number] Sarah Medina Notes Date Note Type Note Provider Name and Address Organization Details Recorded Time 12/17/2023 text/html CRC Nurse Triage Notes (Елена Hernandez): Reason For Request: Patient has second stage lung cancer and doesn't feel well, meds not helping, vomiting. Chief Complaints: Anxiety, Gastrointestinal Concerns (other), Nausea/Vomiting, Weakness/Lethargy PMH: Cancer, COPD/Asthma, Hypertension Allergies: No Known Comments: Member calling in to place a referral, identified via name and . PMHx- COPD, st 3 small cell lung cancer, o2 dep 2L nc, HTN, HLD. NKDA. Member received chemo and radiation last week, went in to the hospital over the weekend for not feeling well and bleeding from her rectum, a UTI was subsequently found as well. Member treated with a blood transfusion, platelets and abx. Member had a colonoscopy which showed internal hemorrhoids. Member wanted to go home today, and wanted a cigarette, member now regretting her decision to be discharged, feels scared and anxious, teary over the phone. She had some n/v and took zofran 8mg with good effect, she has used her inhaler x2. Member denies sob or chest pain at this time, she does report some blood in her depends, which she did not have prior to leaving the hospital today. Member would like to be evaluated, and will return to the hospital if needed. ...................... ...................... ...................... ...................... ...................... ...................... ......... Roving Weight Gauger Note From Kenroy Cole: Pt co anxiety and worry/scared. Pt was released from hospital earlier today and felt she may have been released to early. Pt was given two transfusions blood and platelet. Pt sts had some nausea and vomiting earlier but took a zofran with relief. Pt sts still have blood in brief from diagnosis of hemorrhoids. Pt sts took anxiety meds but vomited before she took the zofran at 6pm. Pt also sts she smoked a cigarette and had regrets from doing so and didn? t feel well after. Pt denies cp sob Diarrhea, headache , dizziness or abdominal pain. Baseline vitals assessed/wnl. Pt was on home o2 2 lpm. Afebrile. Lungs clear. [facility] contacted and advised pt to take another one of her prescribe clonazepam 0.5mg. Pt took during visit. Pt advised to follow up with pcp for referral to therapist in the morning . Pt education on signs indicating the ER. Pt gave email for consent form signature. ...................... ...................... ...................... ...................... ...................... ...................... ......... Disposition: Fulfilled PK AZAR MD [address] [facility],[address], [place], [address], NORBERT BRUNO 12/17/2023 20:37:01 OBGyn Episode No OBEpisode recorded.
== END ==
LOC: HO.CARD 08:48
PROVIDERS: PCP Internal Medicine; Visit Provider Internal Medicine Cardiovascular Disease
DX: I34.0 Nonrheumatic mitral (valve) insufficiency (principal)
CPT/HCPCS: 93306

== ENCOUNTER → 2024-03-22 08:51 | Outpatient (BNV) | payer OTHER, SELFPAY | PROVIDERS: PCP Internal Medicine; Visit Provider Internal Medicine | DX: I34.1 Nonrheumatic mitral (valve) prolapse (principal); I34.0 Nonrheumatic mitral (valve) insufficiency; R93.1 Abnormal findings on diagnostic imaging of heart and coronary circulation | CPT/HCPCS: 93306; 93356 ==

== ENCOUNTER 2024-03-28 07:44 | Outpatient (REF) | payer OTHER, SELFPAY ==
--- NOTE | ~2024-03-28 | CT_ITS ---
EXAMINATION: CT CHEST WITHOUT CONTRAST CLINICAL INFORMATION: On chemotherapy, assess response COMPARISON: CT angiogram chest 09/28/2023 TECHNIQUE: Multidetector volumetric CT imaging of the chest was done. Axial MIP volume rendering provided. Sagittal and coronal reformatted images were obtained. This CT examination was performed using dose optimization techniques as appropriate, variously including the following: *Automated exposure control *Adjustment of mA and/or kV according to patient size (this includes techniques or standardized protocols for targeted exams where dose is matched to indication/reason for exam; i.e. extremities or head) *Use of iterative reconstruction technique DLP: 271 mGy-cm FINDINGS: LUNGS: Again seen is a right suprahilar mass with associated right upper lobe collapse. Assessment is suboptimal secondary to lack of IV contrast on the current study. Since the prior study there has been a worsening in appearances with now collapse/consolidation of the right middle lobe in addition to chronic collapse/consolidation involving the right upper lobe.. MEDIASTINUM: There is mediastinal lymphadenopathy is suboptimally assessed because of lack of IV contrast. There is worsening of adenopathy seen within a new right anterior mediastinal lymph node measuring 1.7 x 1.1 cm (3:24) along with multiple new left-sided superior mediastinal lymph nodes with the largest 2 measuring 1.7 and 1.0 cm (3:23 and 21). CORONARY ARTERY CALCIFICATION: Severe PLEURA: There is no pleural effusion. No pleural mass or thickening. AXILLA: No lymphadenopathy. UPPER ABDOMEN: Unremarkable. OSSEOUS STRUCTURES: Unremarkable. CT/CT chest wo IV con IMPRESSION: 1. Right suprahilar mass with associated right upper lobe collapse. 2. Worsening of mediastinal lymphadenopathy. 3. New collapse/consolidation of the right middle lobe. Fleischner guidelines were followed. Electronically signed by: Callum Robertson MD 03/28/2024 02:06 PM [facility]
== END 2024-03-28 07:45 | disposition home or self-care (01) ==
LOC: HO.CT 07:44
PROVIDERS: PCP Internal Medicine; Visit Provider Internal Medicine
DX: C34.91 Malignant neoplasm of unspecified part of right bronchus or lung (principal)
CPT/HCPCS: 71250

== ENCOUNTER → 2024-03-29 09:34 | Outpatient (BNV) | payer OTHER, SELFPAY | PROVIDERS: PCP Internal Medicine; Visit Provider Internal Medicine Cardiovascular Disease | DX: R07.9 Chest pain, unspecified (principal); R94.31 Abnormal electrocardiogram [ECG] [EKG] | CPT/HCPCS: 93010 ==

== ENCOUNTER 2024-04-07 10:29 | Outpatient (AMB) | payer OTHER, SELFPAY ==
[2024-04-07 10:50] VITALS: BP 106/62; PULSE 93; O2SAT 92; BMI 17.7
--- NOTE | 2024-04-07 10:50 | HO.NEPHOV ---
Vital Signs 04/07/24 10:50 Height 5 ft 2 in Weight 97 lb BMI 17.7 BP 106/62 Blood Pressure Location Lt brachial Position Sitting Pulse 93 Pulse Source Pulse Oximeter Pulse Oximetry (%) 92 Oxygen Delivery Method Room Air Intake Visit Reasons: 3MON F/U/ Conf Cube Cutter Required: No Accompanied by: Self / Same As Patient Allergies No Known Allergies [NO KNOWN ALLERGIES] Allergy (Unknown, Verified 04/07/24 10:52) unknown Medication List - Last Reconciled 04/07/24 by Selvin Estrada MD acetaminophen 500 mg PO Q6H PRN acetaminophen (Tylenol Extra Strength) 500 mg PO QID PRN [ADULT PULL UPS (small) As directed] albuterol sulfate 90 mcg/actuation (Ventolin HFA) 1 puff PO Q6H PRN 30 days alosetron 1 mg (2 x 0.5 mg) PO DAILY amlodipine 2.5 mg PO DAILY amoxicillin 2,000 mg (4 x 500 mg) PO ONCE PRN 1 day blood pressure monitor As directed budesonide 180 mcg/actuation (Pulmicort Flexhaler) 2 inhalations inhalation BID cholecalciferol (vitamin D3) 50 mcg PO DAILY clonazepam 0.5 mg PO BID PRN diphenoxylate-atropine 2.5-0.025 mg (Lomotil) 1 tab PO DAILY PRN fluticasone propionate 50 mcg/actuation 1 spray intranasal DAILY 30 days hydrocortisone 2.5% (Proctozone-HC) [address] BID hydroxyzine HCl 50 mg PO BEDTIME loperamide 2 mg PO Q6H PRN magnesium 250 mg PO BID metoclopramide HCl 5 mg PO TIDAC metoprolol succinate ER 50 mg PO DAILY mirtazapine 30 mg PO BEDTIME nicotine 1 patch transdermal Q24H 28 days MDD smoking nicotine (polacrilex) 4 mg buccal Q8H PRN ondansetron 8 mg PO Q8H PRN oxycodone 5 mg PO Q6H PRN pantoprazole 40 mg PO BID libevrakisesa-RY-ztaqafuyrok 2.5-5-50 mg/5 mL (Robitussin Cough and Cold CF) 15 mL PO Q4H PRN potassium chloride ER (K-Tab) 20 mEq PO DAILY sennosides-docusate sodium 8.6-50 mg (Senexon-S) 1 tab PO BEDTIME PRN simvastatin 40 mg PO BEDTIME sodium chloride 1,000 mg PO DAILY solifenacin 10 mg PO DAILY@0900 sucralfate (Carafate) 4 grams (4 x 1 gram) PO DAILY@1200 tiotropium bromide (Spiriva with HandiHaler) 1 cap inhalation DAILY umeclidinium 62.5 mcg/actuation (Incruse Ellipta) 1 inh inhalation DAILY 30 days HPI Comments Details: 62 yo female with h/o bronchitis, history of IVDA, history of hepatitis-C, COPD, HTN, HLD, anemia, GERD, IBS, gastroparesis, anxiety, depression with recent admission to [facility] from 07/21-07/23 and again 07/25-07/28 due to COPD exacerbation and pneumonia Diagnosed with Small cell CA; Seen by Currently on Salt tabs. Was on 2 gm TID; Decreased to 1 gm TID on 09/09/23 10/15/23 Had hypokalemia and received IV KCL yesterday Now on PO KCL She had diarrhea - resolved now 11/05/2023. She is on chemotherapy for lung cancer. Last week the regimen was switched to carboplatin. She has had 1 cycle so far next cycle is scheduled for next week. No specific complaints today. Accompanied by family member 01/05/24 Recently has UTI with VRE Was given Linozolid and di not tolerate Seen in ER yesterday Repeat Urien c/s NEgatinve Blood C/s pending 04/07/24 Still on chemo Na is normal on NaCl tabs BID PFSH Medical History 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 Small cell lung cancer Depression Enterococcus, vancomycin-resistant Small cell lung cancer COPD (chronic obstructive pulmonary disease) Small cell lung cancer (~08/2023) MDD (major depressive disorder), recurrent episode, moderate Abnormal CT scan, chest Mass of right lung Lung mass Bronchitis Rectal prolapse Nicotine dependence, cigarettes, uncomplicated Nonrheumatic mitral (valve) insufficiency Pulmonary nodule History of hepatitis C Osteopenia (~2011) IV drug user Endocarditis of mitral valve (~11/2017) Mitral valve prolapse Mitral regurgitation Early satiety Paresthesia of left leg Allergic rhinitis Facet arthritis of lumbar region Cervical spondylosis Vitamin D deficiency Pure hypercholesterolemia Benign essential hypertension GERD (gastroesophageal reflux disease) Anxiety Surgical History History of bronchoscopy (~2023) History of liver biopsy (~2009) History of partial colectomy (~2014) History of hysteroscopy (~2010) History of colonoscopy (~2017) Family History Father Internal bleeding Mother Medical history unknown Social History Household Members: Children Housing: House Housing Other:: lives alone with her cat Malena Are you a primary memory care director to a significant other at home: No Do you presently have visiting nurse or other home services: Yes ([facility] TO HOME ON FOR POSS SERVICES) Alcohol intake: former Patient Tobacco Use Status: Current everyday Tobacco user Tobacco use type: Cigarette Cigarette Packs Per Day: 5 Cigarettes Per Day: 5 Years Smoked: 45 e-Cigarette/Vaping Use: Never Used Second Hand Smoke Exposure: Yes Substance Use Type: Marijuana Advance Directives Date on File: 09/23/23 service: No Current occupational status: unemployed Sexual orientation: Straight/Heterosexual Gender identity: Female Cognitive needs: No Hearing needs: No Vision needs: Yes Female Reproductive History Menstrual Age of Menarche: 14 Physical Exam Vital Signs: Last Vital Signs Pulse 93 04/07/24 10:50 BP 106/62 04/07/24 10:50 Pulse Ox 92 04/07/24 10:50 Oxygen Delivery Method Room Air 04/07/24 10:50 BMI result Body Mass Index 17.7 Results Reviewed Nephrology Results: Hgb 9.3 g/dl (12.0-16.0) L 03/29/24 WBC 5.7 X10*3/uL (4.8-10.8) 03/29/24 Plt Count 99 X10*3/uL (160-400) L 03/29/24 Sodium 140 mmol/L (135-145) 03/29/24 Potassium 3.5 mmol/L (3.3-5.1) 03/29/24 Chloride 105 mmol/L (96-108) 03/29/24 Carbon Dioxide 25 mmol/L (22-29) 03/29/24 BUN 12 mg/dL (9-16) 03/29/24 Creatinine 0.58 mg/dL (0.5-1.4) 03/29/24 Calcium 9.1 mg/dL (8.4-10.2) 03/29/24 Assessment & Plan Assessment & Plan (1) Hyponatremia: Code(s): E87.1 - Hypo-osmolality and hyponatremia Category: Medical (2) Small cell lung cancer: Onset Date: ~08/2023 Comment: (Right Upper Lobe - Clinical stage T3 N2, Stage IIIB - Dx 08/2023) Code(s): C34.90 - Malignant neoplasm of unspecified part of unspecified bronchus or lung Category: Medical (3) Acute hyponatremia: Code(s): E87.1 - Hypo-osmolality and hyponatremia Category: Medical (4) Hyponatremia: Code(s): E87.1 - Hypo-osmolality and hyponatremia Category: Medical Plan 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 Keep on potassium supplementation and monitor level Orders: Orders Basic Metabolic Panel 3 Months E87.1 - Hypo-osmolality and hyponatremia Medications: Changed From sodium chloride 1,000 mg PO BID 180 tabs 0RF To sodium chloride 1,000 mg PO DAILY 180 tabs 0RF Coding Level of Care Code Est Pt Level 4 (93416) Diagnoses Hyponatremia E87.1 Small cell lung cancer C34.90 Acute hyponatremia E87.1
== END 2024-04-07 11:15 | disposition home or self-care (01) ==
PROVIDERS: PCP Internal Medicine; Visit Provider Internal Medicine Hypertension Specialist
DX: E87.1 Hypo-osmolality and hyponatremia (principal); C34.90 Malignant neoplasm of unspecified part of unspecified bronchus or lung
CPT/HCPCS: 99214

== ENCOUNTER → 2024-04-07 10:29 | Outpatient (BNVA) | payer OTHER, SELFPAY | PROVIDERS: PCP Internal Medicine; Visit Provider Internal Medicine Hypertension Specialist | DX: E87.1 Hypo-osmolality and hyponatremia (principal); C34.90 Malignant neoplasm of unspecified part of unspecified bronchus or lung | CPT/HCPCS: 99212 ==

== ENCOUNTER 2024-04-11 08:05 | Outpatient (AMB) | payer MEDICARE, MEDICAID, SELFPAY ==
--- OUTSIDE RECORDS SUMMARY | 2024-04-11 08:12 | XMS_ITS | Data Portability ---
Author Organization [employer] [facility] [employer] Address [address] [place] [address] Care Team Providers Care Japanese Professor Name Role Phone HIM [facility] OTHER GLEN KELLER Primary Care Provider [phone] Assessment Encounter Date Assessment Date Assessment LastModified [...] klonopin now for anxiety. FUP with PCP. Not available 12/17/2023 19:52:18 Plan of Treatment [...] % 99 % 2 L/min 98.4 [degF] 95218.4 48 g 88 /min 18 /min 156 mm[Hg] 86 mm[Hg] Not Available [facility] - production 4 19:23:28 Social History None recorded. Functional Status None recorded. Mental Status None recorded. Family History Nothing Reported. Medical History No medical history recorded. Gynecological HistoryNo gynecological history recorded. Obstetrics History GPAL:G 0 P 0 0 0 0 Past Encounters Encounter ID Performer Location Encounter Start Date Encounter Closed Date Diagnosis/Indication Diagnosis SNOMED-CT Code Diagnosis ICD10 Code Diagnosis Note [id number] PK AZAR MD Main - [facility] [address] [place] [phone] 12/17/2023 19:23:25 12/17/2023 21:29:56 Anxiety 97768903 F41.9 Painless r ectal bleeding 465511014 K62.5 Health Concerns Section Related Observation LastModified by Organization Detai ls LastModified Time None Recorded Concern Status LastModified by Organization Details LastModified Time None Recorded Advance Directives Directive None Recorded Payers Encounter Date Sequence Insurance Name Policy Number Policy Dong Covered Member ID Dong Member ID Guarantor Name 12/17/2023 1 [facility] - DOS ON OR AFTER 2022 - DUAL ELIGIBLE - SNF OPTIONS AND ONE CARE (MEDICARE REPLACEMENT/ADV ANTAGE - HMO) Sarah Medina [id number] Sarah Medina Notes Date Note Type Note [...] ...................... ...................... ...................... ...................... ...................... ...................... ......... Health Education Aide Note From Kenroy Cole: Pt co anxiety [...] home o2 2 lpm. Afebrile. Lungs clear. [facility] [place] contacted and advised pt to take another one of her prescribe clonazepam 0.5mg. Pt took during visit. Pt advised to follow up with pcp for referral to therapist in the morning . Pt education on signs indicating the ER. Pt gave email for consent form signature. ...................... ...................... ...................... ...................... ...................... ...................... ......... Disposition: Fulfilled PK AZAR MD [address] [facility],[address], [place], [address], [facility] 12/17/2023 20:37:01 OBGyn Episode No OBEpisode recorded.
[2024-04-11 08:22] VITALS: BP 96/64; PULSE 99; BMI 18.0
--- NOTE | 2024-04-11 08:22 | MHC.OFFVIS ---
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 [employer] Required: No Accompanied by: Self / Same As Patient Allergies No Known Allergies [NO KNOWN ALLERGIES] Allergy (Unknown, Verified 04/07/24 10:52) unknown Medication List - Last Reconciled 04/11/24 by Michael Santos MD acetaminophen (Tylenol Extra Strength) 500 mg PO QID PRN [ADULT PULL UPS (small) As directed] albuterol sulfate 90 mcg/actuation (Ventolin HFA) 1 puff PO Q6H PRN 30 days alosetron 1 mg (2 x 0.5 mg) PO DAILY amlodipine 2.5 mg PO DAILY blood pressure monitor As directed cholecalciferol (vitamin D3) 50 mcg PO DAILY clonazepam 0.5 mg PO BID PRN diphenoxylate-atropine 2.5-0.025 mg (Lomotil) 1 tab PO DAILY PRN fluticasone propionate 50 mcg/actuation 1 spray intranasal DAILY 30 days hydrocortisone 2.5% (Proctozone-HC) 1 appl CA BID hydroxyzine HCl 50 mg PO BEDTIME magnesium 250 mg PO BID metoclopramide HCl 5 mg PO TIDAC metoprolol succinate ER 50 mg PO DAILY mirtazapine 30 mg PO BEDTIME nicotine 1 patch transdermal Q24H 28 days MDD smoking nicotine (polacrilex) 4 mg buccal Q8H PRN ondansetron 8 mg PO Q8H PRN oxycodone 5 mg PO Q6H PRN pantoprazole 40 mg PO BID jvtffdaskkcch-DE-ihvjoomjvbe 2.5-5-50 mg/5 mL (Robitussin Cough and Cold CF) 15 mL PO Q4H PRN potassium chloride ER (K-Tab) 20 mEq PO DAILY simvastatin 40 mg PO BEDTIME sodium chloride 1,000 mg PO DAILY solifenacin 10 mg PO DAILY@0900 sucralfate (Carafate) 4 grams (4 x 1 gram) PO DAILY@1200 tiotropium bromide (Spiriva with HandiHaler) 1 cap inhalation DAILY umeclidinium 62.5 mcg/actuation (Incruse Ellipta) 1 inh inhalation DAILY 30 days HPI Comments Details: Sarah comes for follow-up. She says she is not feeling well as she was recently started on chemotherapy for her lung cancer. She says she feels weak. She has no other cardiac symptoms. Uses oxygen for COPD. Denies any orthopnea, PND. Recent echocardiogram shows low normal LV ejection fraction with qpww-ml-yfrjsjka mitral regurgitation which seems to have improved. She denies any symptoms of palpitations. No lightheadedness, syncope. Denies drug use. Unfortunately continues to smoke [facility] Medical History 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 Small cell lung cancer Depression Enterococcus, vancomycin-resistant Small cell lung cancer COPD (chronic obstructive pulmonary disease) Small cell lung cancer (~08/2023) MDD (major depressive disorder), recurrent episode, moderate Abnormal CT scan, chest Mass of right lung Lung mass Bronchitis Rectal prolapse Nicotine dependence, cigarettes, uncomplicated Nonrheumatic mitral (valve) insufficiency Pulmonary nodule History of hepatitis C Osteopenia (~2011) IV drug user Endocarditis of mitral valve (~11/2017) Mitral valve prolapse Mitral regurgitation Early satiety Paresthesia of left leg Allergic rhinitis Facet arthritis of lumbar region Cervical spondylosis Vitamin D deficiency Pure hypercholesterolemia Benign essential hypertension GERD (gastroesophageal reflux disease) Anxiety Surgical History History of bronchoscopy (~2023) History of liver biopsy (~2009) History of partial colectomy (~2014) History of hysteroscopy (~2010) History of colonoscopy (~2017) Family History Father Internal bleeding Mother Medical history unknown Social History Household Members: Children Housing: House Housing Other:: lives alone with her cat Gizmo Are you a primary day care provider to a significant other at home: No Do you presently have visiting nurse or other home services: Yes ([facility]) Alcohol intake: former Patient Tobacco Use Status: Current everyday Tobacco user Tobacco use type: Cigarette Cigarette Packs Per Day: 5 Cigarettes Per Day: 5 Years Smoked: 45 e-Cigarette/Vaping Use: Never Used Second Hand Smoke Exposure: Yes Substance Use Type: Marijuana Advance Directives Date on File: 09/23/23 service: No Current occupational status: unemployed Sexual orientation: Straight/Heterosexual Gender identity: Female Cognitive needs: No Hearing needs: No Vision needs: Yes Female Reproductive History Menstrual Age of Menarche: 14 Review of Systems Const Denies chills, Denies fatigue, Denies fever(s), Denies weight gain and Denies weight loss ENT Denies dizziness Card Denies chest pain, Denies leg edema, Denies lightheadedness, Denies palpitations, Denies dyspnea on exertion, Denies orthopnea and Denies other Resp Denies cough and Denies dyspnea on exertion GI Denies hematochezia and Denies change in stool character Musc Denies abnormal gait, Denies muscle weakness, Denies numbness, Denies radiating pain into limb and Denies tingling Neuro Denies abnormal gait, Denies dizziness, Denies numbness and Denies tingling Endo Denies fatigue and Denies palpitations Physical Exam Vital Signs: Last Vital Signs Pulse 99 04/11/24 08:22 BP 96/64 04/11/24 08:22 BMI result Body Mass Index 18.0 Const General: cooperative, comfortable and no acute distress Orientation/consciousness: patient oriented x3 Neck Neck: Yes normal visual inspection and Yes no JVD Resp Effort & Inspection: normal respiratory effort Auscultation: no crackles, no rales, no rhonchi, wheezes expiratory wheezes and right lower and diminished lung sounds Cardio Rate: regular rate Rhythm: regular rhythm Heart sounds: S1 normal heart sound present, S2 normal heart sound present, no click, no gallops, Murmur heart sound present systolic mid (Mid to late systolic murmur at the apex) and no rubs Peripheral pulses: Peripheral pulses 2+ throughout GI Inspection: Yes normal to inspection Neuro General: patient oriented x3 Extrem General: Yes normal to inspection, No no pedal edema and No calf tenderness Assessment & Plan Assessment & Plan (1) Mitral regurgitation: Code(s): I34.0 - Nonrheumatic mitral (valve) insufficiency Category: Medical Plan: Mitral regurgitation she was ygag-yl-ayqneifs by echocardiogram related to mitral valve prolapse. Had significant mitral regurgitation past related to endocarditis but this has improved. Strongly recommend to avoid IV drug use. Continue to monitor now given that her mitral regurgitation stabilized every 2 years with echocardiogram. Follow up in the clinic in 2 years. SBE prophylaxis as per ACC/aha guidelines. Low-dose aspirin therapy is recommended. Smoking cessation was advised given her advanced COPD requiring oxygen as well as now lung cancer. (2) PVC (premature ventricular contraction): Code(s): I49.3 - Ventricular premature depolarization Category: Medical Plan: PVCs with low normal LV ejection fraction. No symptoms related to it. Continue metoprolol therapy. Avoidance of stimulants was discussed. Will follow up in the clinic in 2 years time, sooner p.r.n.. Thank you for allowing me to partake in her Coding Level of Care Code Est Pt Level 4 (28411) Complex EM visit Add On G2211 Diagnoses Mitral regurgitation I34.0 PVC (premature ventricular contraction) I49.3
== END 2024-04-11 08:44 | disposition home or self-care (01) ==
PROVIDERS: PCP Internal Medicine; Visit Provider Internal Medicine Cardiovascular Disease
DX: I34.0 Nonrheumatic mitral (valve) insufficiency (principal); I49.3 Ventricular premature depolarization
CPT/HCPCS: 99214; G2211

== ENCOUNTER → 2024-04-11 08:05 | Outpatient (BNVA) | payer MEDICARE, MEDICAID, SELFPAY | PROVIDERS: PCP Internal Medicine; Visit Provider Internal Medicine Cardiovascular Disease | DX: I34.0 Nonrheumatic mitral (valve) insufficiency (principal); I49.3 Ventricular premature depolarization | CPT/HCPCS: 99212 ==

== ENCOUNTER 2024-04-20 09:45 | Outpatient (AMB) | payer MEDICARE, MEDICAID, SELFPAY ==
--- NOTE | 2024-04-20 09:45 | A.OFFVIS_ITS ---
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 She is doing well with no wash driller concerns. Under treatment for lung cancer, feels depreased-has first session for counseling tomorrow. Currently not sexually active. Denies any vaginal irritation. Last pap smear; 2019. Last mammogram; 2022. Has a post in place, defers mammogram, follow by Oncology. Colonoscopy is UTD. Denies any family history of breast, ovarian or colon cancer. [facility] Medical History 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 Small cell lung cancer Depression Enterococcus, vancomycin-resistant Small cell lung cancer COPD (chronic obstructive pulmonary disease) Small cell lung cancer (~08/2023) MDD (major depressive disorder), recurrent episode, moderate Abnormal CT scan, chest Mass of right lung Lung mass Bronchitis Rectal prolapse Nicotine dependence, cigarettes, uncomplicated Nonrheumatic mitral (valve) insufficiency Pulmonary nodule History of hepatitis C Osteopenia (~2011) IV drug user Endocarditis of mitral valve (~11/2017) Mitral valve prolapse Mitral regurgitation Early satiety Paresthesia of left leg Allergic rhinitis Facet arthritis of lumbar region Cervical spondylosis Vitamin D deficiency Pure hypercholesterolemia Benign essential hypertension GERD (gastroesophageal reflux disease) Anxiety Surgical History History of bronchoscopy (~2023) History of liver biopsy (~2009) History of partial colectomy (~2014) History of hysteroscopy (~2010) History of colonoscopy (~2017) Family History Father Internal bleeding Mother Medical history unknown Social History Household Members: Children Housing: House Housing Other:: lives alone with her cat Gizmo Are you a primary career technical education instructor to a significant other at home: No Do you presently have visiting nurse or other home services: Yes ([facility]) Alcohol intake: former Patient Tobacco Use Status: Current everyday Tobacco user Tobacco use type: Cigarette Cigarette Packs Per Day: 5 Cigarettes Per Day: 5 Years Smoked: 45 e-Cigarette/Vaping Use: Never Used Second Hand Smoke Exposure: Yes Substance Use Type: Marijuana Advance Directives Date on File: 09/23/23 service: No Current occupational status: unemployed Sexual orientation: Straight/Heterosexual Gender identity: Female Cognitive needs: No Hearing needs: No Vision needs: Yes Female Reproductive History Menstrual Age of Menarche: 14 Total pregnancies: 3 Full term: 2 Number of Living Children: 2 Ab induced: 1 Date of last pap smear: 01/19/20 (neg pap and hpv) History of abnormal pap smear: Yes (11/15 lgsil 02/15 colpo) Date of Mammogram: 07/19/22 Review of Systems Const All systems reviewed & are unremarkable except as noted in HPI and below Reports as per HPI Eyes Reports no additional complaints ENT Reports no additional complaints Card Reports no additional complaints Resp Reports no additional complaints GI Reports as per HPI and Reports no additional complaints Reports as per HPI Musc Reports no additional complaints Skin/Breast Reports as per HPI Neuro Reports no additional complaints Psych Reports no additional complaints Endo Reports no additional complaints Jose L/Lymph Reports no additional complaints Aller/Immun Reports no additional complaints Physical Exam Vital Signs: Last Vital Signs BP 98/74 04/20/24 09:50 BMI result Body Mass Index 18.7 Const General: cooperative, healthy appearing, no acute distress, well developed and alert Orientation/consciousness: patient oriented x3 HEENT Head: Yes normal to inspection Eyes General: appearance normal, both eyes and all related structures Neck Neck: Yes normal visual inspection Thyroid: Thyroid normal Chest Chest palpation & inspection: normal inspection of the chest and other (no puckering, dimpling, peau de orange, retraction, discharge, masses) Breast/axilla inspection: normal inspection of the breasts and Other (Port in place upper left side) Breast/axilla palpation: normal palpation of the breasts Resp Effort & Inspection: normal respiratory effort GI Inspection: Yes normal to inspection Palpation (GI): Soft to palpation Rectal Exam - Female: deferred General: Yes bladder normal to palpation External Female Exam: normal external appearance and normal appearance of the urethra Speculum Exam - Vagina: normal appearance of the vagina, normal palpation, normal vaginal discharge and vagina atrophic Speculum Exam - Cervix: normal appearance of the cervix and normal palpation Bimanual exam- vagina & uterus: normal bimanual exam, normal palpation, uterine size normal, bladder normal to palpation, normal palpation and non-tender Bimanual Exam- Adnexa, other: no masses Skin General skin exam: no rashes or lesions noted Rashes: no rashes Neuro General: patient oriented x3 Cognition (Neuro): normal cognition Extrem General: Yes normal to inspection Psych Attitude: cooperative Thought process: Normal thought process present Assessment & Plan Assessment & Plan (1) Encounter for well woman exam with routine gynecological exam: Code(s): Z01.419 - Encounter for gynecological examination (general) (routine) without abnormal findings Category: Medical Plan Discussed: Current recommendations for pap smears per ASCCP guidelines. Pap obtained today. Contact the office with any postmenopausal bleeding. Patient verbalizes understanding and agrees to the plan of care. She was given opportunity to ask questions and all questions were answered to the best of my ability. RTO in 1 year for annual wash driller exam. This note is constructed using voice recognition software. While every effort has been made to ensure accuracy, film crew member errors may have been included. Coding Level of Care Code Est Pt Prev Care 40-64y(07764) Diagnoses Encounter for well woman exam with routine gynecological exam Z01.419
[2024-04-20 09:50] VITALS: BP 98/74; BMI 18.7
--- OUTSIDE RECORDS SUMMARY | 2024-04-20 10:35 | XMS_ITS | Data Portability ---
Author Organization [employer] [place] [employer] Address [address] [place] [address] Care Team Providers Care Animal Chiropractor Name Role Phone HIM [facility] OTHER GLEN KELLER Primary Care Provider Assessment Encounter Date Assessment Date Assessment LastModified [...] klonopin now for anxiety. FUP with PCP. [email or web address] Not available 12/17/2023 19:52:18 Plan of Treatment [...] % 99 % 2 L/min 98.4 [degF] 66563.4 48 g 88 /min 18 /min 156 mm[Hg] 86 mm[Hg] Not Available [employer] - production 4 19:23:28 Social History None recorded. Functional Status None recorded. Mental Status None recorded. Family History Nothing Reported. Medical History No medical history recorded. Gynecological HistoryNo gynecological history recorded. Obstetrics History GPAL:G 0 P 0 0 0 0 Past Encounters Encounter ID Performer Location Encounter Start Date Encounter Closed Date Diagnosis/Indication Diagnosis SNOMED-CT Code Diagnosis ICD10 Code Diagnosis Note [id number] PK AZAR MD Main - [facility] [address] [place] [phone] 0 12/17/2023 19:23:25 12/17/2023 21:29:56 Anxiety 33552137 F41.9 Painless r ectal bleeding 962427565 K62.5 Health Concerns Section Related Observation LastModified by Organization Detai ls LastModified Time None Recorded Concern Status LastModified by Organization Details LastModified Time None Recorded Advance Directives Directive None Recorded Payers Encounter Date Sequence Insurance Name Policy Number Policy Dong Covered Member ID Dong Member ID Guarantor Name 12/17/2023 1 [facility] - DOS ON OR AFTER 2022 - DUAL ELIGIBLE - FDC OPTIONS AND ONE CARE (MEDICARE REPLACEMENT/ADV ANTAGE - HMO) Sarah Medina [id number] Sarah Medina Notes Date Note Type Note [...] ...................... ...................... ...................... ...................... ...................... ...................... ......... Addiction Psychiatrist Note From Kenroy Cole: Pt co anxiety [...] home o2 2 lpm. Afebrile. Lungs clear. [facility] [place] contacted and advised pt to take another one of her prescribe clonazepam 0.5mg. Pt took during visit. Pt advised to follow up with pcp for referral to therapist in the morning . Pt education on signs indicating the ER. Pt gave email for consent form signature. ...................... ...................... ...................... ...................... ...................... ...................... ......... Disposition: Fulfilled PK AZAR MD [address] [facility],[address], [place], [address], [facility] 12/17/2023 20:37:01 OBGyn Episode No OBEpisode recorded.
== END 2024-04-20 10:37 | disposition home or self-care (01) ==
LOC: HO.HWS 09:45
PROVIDERS: PCP Internal Medicine; Visit Provider Advanced Practice Midwife
DX: Z01.419 Encounter for gynecological examination (general) (routine) without abnormal findings (principal)
CPT/HCPCS: 99396; 99459

== ENCOUNTER 2024-04-20 09:45 | Outpatient (REF) | payer MEDICARE, MEDICAID, SELFPAY ==
[2024-04-21 10:46] LABS: HPV 16,18/45 See PAP report
== END 2024-04-20 09:46 | disposition home or self-care (01) ==
LOC: HO.LNP 09:45
PROVIDERS: PCP Internal Medicine; Visit Provider Advanced Practice Midwife
DX: Z01.419 Encounter for gynecological examination (general) (routine) without abnormal findings (principal); Z11.51 Encounter for screening for human papillomavirus (HPV); Z12.72 Encounter for screening for malignant neoplasm of vagina; Z87.410 Personal history of cervical dysplasia
CPT/HCPCS: 87626; 88175; 99396; 99459

== ENCOUNTER 2024-05-10 10:58 | Outpatient (REF) | payer MEDICARE, MEDICAID, SELFPAY ==
--- NOTE | ~2024-05-10 | XR_ITS ---
CLINICAL HISTORY: Hypoxia, shortness of breath 2 view chest x-ray Comparison: CO/SR - XR CHEST 2V - 09/15/23 11:17 EDT Findings: Left chest port in unchanged position. The left lung is clear. Hazy consolidation within the perihilar right chest with right lower lobe consolidation. IMPRESSION: 1. Patchy consolidation throughout the right lung. CT chest recommended. This document has been electronically signed by: Rosy Daily MD on 05/11/2024 07:19:50
--- OUTSIDE RECORDS SUMMARY | 2024-05-10 11:55 | XMS_ITS | Data Portability ---
Author Organization [employer] [place] [employer] Address [address] [place] [address] Care Team Providers Care Analytical Research Chemist Name Role Phone HIM [facility] OTHER GLEN KELLRE Primary Care Provider Assessment Encounter Date Assessment [...] % 99 % 2 L/min 98.4 [degF] 20213.4 48 g 88 /min 18 /min 156 mm[Hg] 86 mm[Hg] Not Available [employer] - production 4 19:23:28 Social History None recorded. Functional Status None recorded. Mental Status None recorded. Family History Nothing Reported. Medical History No medical history recorded. Gynecological HistoryNo gynecological history recorded. Obstetrics History GPAL:G 0 P 0 0 0 0 Past Encounters Encounter ID Performer Location Encounter Start Date Encounter Closed Date Diagnosis/Indication Diagnosis SNOMED-CT Code Diagnosis ICD10 Code Diagnosis Note [id number] PK AZAR MD Main - [facility] [address] [place] [phone] 12/17/2023 19:23:25 12/17/2023 21:29:56 Anxiety 51960632 F41.9 Painless r ectal bleeding 538728267 K62.5 Health Concerns Section Related Observation LastModified by Organization Detai ls LastModified Time None Recorded Concern Status LastModified by Organization Details LastModified Time None Recorded Advance Directives Directive None Recorded Payers Encounter Date Sequence Insurance Name Policy Number Policy Dong Covered Member ID Dong Member ID Guarantor Name 12/17/2023 1 [facility] - DOS ON OR AFTER 2022 - DUAL ELIGIBLE - FCI OPTIONS AND ONE CARE (MEDICARE REPLACEMENT/ADV ANTAGE - HMO) Sarah Medina [id number] Sarah Medina Notes Date Note Type Note [...] ...................... ...................... ...................... ...................... ...................... ...................... ......... Electric Track Switch Maintainer Note From Kenroy Cole: Pt co anxiety [...] home o2 2 lpm. Afebrile. Lungs clear. [facility] contacted and advised pt to take another one of her prescribe clonazepam 0.5mg. Pt took during visit. Pt advised to follow up with pcp for referral to therapist in the morning . Pt education on signs indicating the ER. Pt gave email for consent form signature. ...................... ...................... ...................... ...................... ...................... ...................... ......... Disposition: Fulfilled PK AZAR MD [address] [place] [address],[address], [place], [address], [facility] 12/17/2023 20:37:01 OBGyn Episode No OBEpisode recorded.
--- OUTSIDE RECORDS SUMMARY | 2024-05-10 11:55 | XMS_ITS | Clinical Summary ---
Author Organization [facility] Address [address] [place] [address] Care Team Providers Care Inweaver Name Role Phone Sarthak Person MD Primary Care Provider [phone] Social History Tobacco Use Types Packs/Day Years Used Date Smoking Tobacco: Every Day Smokeless Tobacco: Never Alcohol Use Standard Drinks/Week Comments Not Asked 0 (1 standard drink = 0.6 oz pur e alcohol) Sex and Gender Information Value Date Recorded Sex Assigned at Not on file Gender Identity Not on file Sexual Orientation Not on file Obstetrics History Last Filed Vital Signs Vital Sign Reading Time Taken Comments Blood Pressure 128/70 03/31/2023 1:39 PM EST Sit ting L Arm Pulse 76 07/31/2022 9:12 AM EDT Temperature - - Respiratory Rate - - Oxygen Saturation - - Inhaled Oxygen Concentration - - Weight 56.2 kg (124 lb) 03/31/2023 1:39 PM EST Height 157.5 cm (5' 2 ) 03/31/2023 1:39 PM EST Body Mass Index 22.68 03/31/2023 1:39 PM EST Plan of Treatment Health Maintenance Due Date Last Done Comments Breast Cancer Screening 1960 COVID-19 Vaccine (#1) 08/21/1964 DTaP,Tdap,and Td Vaccines (1 - Tdap) 08/21/1978 Zoster Vaccines (1 of 2) 08/21/1978 Cervical Cancer Screening: P ap Smear 08/21/1980 Pneumococcal Vaccine: Pediat rics (0 to 5 Years) and At-Risk Patients (6 to 64 Years) (2 of 2 - PCV) 08/02/2015 08/01/2014 Colorectal Cancer Screening: Colonoscopy 05/06/2023 Depression Screening 05/06/2023 HIV Screening 05/06/2023 Hepatitis C Screening 05/06/2023 Social Influencers of Health Screening 05/06/2023 Influenza Vaccine (#1) 2023 RSV Immunization Patients 60 + Years Old (1 - 1-dose 75+ series) 08/21/2034 HIB Vaccines Aged Out No longer eligi ble based on patient's age to complete this topic HPV Vaccines Aged Out No longer eligi ble based on patient's age to complete this topic Hepatitis A Vaccines Aged Out No long er eligible based on patient's age to complete this topic Hepatitis B Vaccines Aged Out No long er eligible based on patient's age to complete this topic IPV Vaccines Aged Out No longer eligi ble based on patient's age to complete this topic MMR Vaccines Aged Out No longer eligi ble based on patient's age to complete this topic Meningococcal ACWY Vaccine Aged Out N o longer eligible based on patient's age to complete this topic RSV Immunization Patients Un rodolfo 20 months Aged Out No longer eligible b ased on patient's age to complete this topic Varicella Vaccines Aged Out No longer eligible based on patient's age to complete this topic Care Teams Inweaver Relationship Specialty Start Date End Date Sarthak Person MD [address] [place] [address] Dr [address] [facility] PCP - General Internal Medicine 02/06/15
== END 2024-05-10 10:59 | disposition home or self-care (01) ==
LOC: HO.XRAY 10:58
PROVIDERS: Visit Provider Internal Medicine
DX: C34.90 Malignant neoplasm of unspecified part of unspecified bronchus or lung (principal)
CPT/HCPCS: 71046

== ENCOUNTER → 2024-05-10 11:06 | Outpatient (BNV) | payer MEDICARE, MEDICAID, SELFPAY | PROVIDERS: Visit Provider Radiology Diagnostic Radiology | DX: R91.8 Other nonspecific abnormal finding of lung field (principal) | CPT/HCPCS: 71046 ==

== ENCOUNTER 2024-05-13 10:07 | Outpatient (REF) | payer OTHER, SELFPAY ==
[2024-05-13 10:32] LABS: MANUAL DIFF FLAG NO
[2024-05-13 10:44] LABS: Basophils Percent Auto 0.4 % (0-2); Eosinophils Percent Auto 0.4 % (0-4); Hemoglobin 10.3 g/dl (12.0-16.0); Imm Gran Abs Auto 0.06 X10*3/uL (0.00-0.03); Imm Gran Pct Auto 0.8 % (0.0-0.4); Lymphocytes Percent Auto 13.7 % (20-40); Mean Corpuscular HGB Conc 31.2 g/dl (31.0-35.0); Mean Corpuscular Hemoglobin 28.1 pg (27.0-33.0); Mean Corpuscular Volume 89.9 fL (80.0-98.0); Mean Platelet Volume 9.6 fL (9.4-12.3); Monocytes Absolute Auto 0.5 X10*3/uL (0.1-1.2); Monocytes Percent Auto 6.2 % (2-11); Neutrophils Absolute Auto 5.7 x10*3/uL (2.0-8.3); Neutrophils Percent Auto 78.5 % (45-73); Platelet Count 118 X10*3/uL (160-400); Red Blood Count 3.67 X10*6/uL (4.20-5.50); Red Cell Distribution Width 16.7 % (11.0-16.0); White Blood Count 7.2 X10*3/uL (4.8-10.8)
--- OUTSIDE RECORDS SUMMARY | 2024-05-13 11:00 | XMS_ITS | Data Portability ---
Author Organization [email or web address] [place] - [employer] Address [address] [place] [address] Care Team Providers Care Home School Coordinator Name Role Phone HIM CCA OTHER GLEN [...] klonopin now for anxiety. FUP with PCP. [email or web address] Not available 12/17/2023 19:52:18 Plan of Treatment [...] % 99 % 2 L/min 98.4 [degF] 26956.4 48 g 88 /min 18 /min 156 mm[Hg] 86 mm[Hg] Not Available [employer] - production 4 19:23:28 Social History None recorded. Functional Status None recorded. Mental Status None recorded. Family History Nothing Reported. Medical History No medical history recorded. Gynecological HistoryNo gynecological history recorded. Obstetrics History GPAL:G 0 P 0 0 0 0 Past Encounters Encounter ID Performer Location Encounter Start Date Encounter Closed Date Diagnosis/Indication Diagnosis SNOMED-CT Code Diagnosis ICD10 Code Diagnosis Note [id number] PK AZAR MD [facility] - [facility] [address] [place] [id number] 0 12/17/2023 19:23:25 12/17/2023 21:29:56 Anxiety 42757730 F41.9 Painless r ectal bleeding 248488952 K62.5 Health Concerns Section Related Observation LastModified by Organization Detai ls LastModified Time None Recorded Concern Status LastModified by Organization Details LastModified Time None Recorded Advance Directives Directive None Recorded Payers Encounter Date Sequence Insurance Name Policy Number Policy Dong Covered Member ID Dong Member ID Guarantor Name 12/17/2023 1 [facility] - DOS ON OR AFTER 2022 - DUAL ELIGIBLE - RESIDENTIAL OPTIONS AND ONE CARE (MEDICARE REPLACEMENT/ADV ANTAGE - HMO) Sarah Medina [id number] Sarah Medina Notes Date Note Type Note [...] ...................... ...................... ...................... ...................... ...................... ...................... ......... Parachute Packer Note From Kenroy Cole: Pt co anxiety [...] home o2 2 lpm. Afebrile. Lungs clear. [facility] contacted and advised pt to take another one of her prescribe clonazepam 0.5mg. Pt took during visit. Pt advised to follow up with pcp for referral to therapist in the morning . Pt education on signs indicating the ER. Pt gave email for consent form signature. ...................... ...................... ...................... ...................... ...................... ...................... ......... Disposition: Fulfilled PK AZAR MD [address] [place] [address],[address], [place], [address], [facility] 12/17/2023 20:37:01 OBGyn Episode No OBEpisode recorded.
--- OUTSIDE RECORDS SUMMARY | 2024-05-13 11:00 | XMS_ITS | Clinical Summary ---
Author Organization [facility] Address [address] [place] [address] Care Team Providers Care Charter Boat Captain Name Role Phone Sarthak Person MD Primary Care Provider [phone] Social History Tobacco Use Types Packs/Day Years [...] age to complete this topic Care Teams Charter Boat Captain Relationship Specialty Start Date End Date Sarthak Person MD [address] [place] [address] Dr [address] [facility] PCP - General Internal Medicine 02/06/15
[2024-05-13 11:43] LABS: Alanine Aminotransferase 15 U/L (0-31); Albumin Level 3.4 g/dL (3.5-5.0); Alkaline Phosphatase 62 U/L (39-117); Anion Gap 13 (12-20); Aspartate Amino Transferase 58 U/L (5-31); Bilirubin Total 0.2 mg/dL (0.0-1.0); Blood Urea Nitrogen 17 mg/dL (9-16); Calcium 9.3 mg/dL (8.4-10.2); Carbon Dioxide 26 mmol/L (22-29); Chloride 101 mmol/L (96-108); Cholesterol 122 mg/dL (<200); Estimated Glomerular Filt Rate > 60; Glucose Fasting 125 mg/dL (60-99); HDL Cholesterol 18 mg/dL (>40); LDL Cholesterol Calculated 75 mg/dL (<100); Sodium 136 mmol/L (135-145); TSH reflex Free T4 4.02 uIU/mL (0.32-4.0); Total Protein 7.1 g/dL (6.5-8.0); Triglycerides 145 mg/dL (<150)
[2024-05-13 12:14] LABS: Free T4 (Free Thyroxine) 1.03 ng/dL (0.71-1.85)
[2024-05-13 12:26] LABS: Appearance Urine Clear; Color Urine Dark Yellow; Glucose Urine UA Negative (Negative); Leukocyte Esterase Urine Negative (Negative); Nitrite Urine Negative (Negative); PH 5.5 (5.0-9.0); Specific Gravity - Urine >= 1.030 (1.005-1.025); UMIC TRIGGER UACC YES; Urine Blood Negative (Negative); Urine Ketones Trace mg/dL (Negative); Urine Protein 30 (1+) mg/dL (Neg-Trace)
[2024-05-13 12:38] LABS: Bacteria Urine None Seen (None Seen); RBC Urine 0-2 /HPF (0-2); WBC Urine 0-5 /HPF (0-5)
== END 2024-05-13 10:08 | disposition home or self-care (01) ==
LOC: HO.LAB 10:07
PROVIDERS: PCP Internal Medicine; Visit Provider Internal Medicine
DX: D64.9 Anemia, unspecified (principal); E78.00 Pure hypercholesterolemia, unspecified; R30.0 Dysuria
CPT/HCPCS: 36415; 80053; 80061; 81001; 81003; 84439; 84443; 85025

== ENCOUNTER 2024-05-31 | Outpatient (REF) | payer OTHER, SELFPAY ==
--- OUTSIDE RECORDS SUMMARY | 2024-09-27 15:58 | XMS_ITS | Encounter Summary ---
Author Organization [facility] Address [address] [place] [address] Care Team Providers Care Wool Handler Name Role Phone Sarthak Person MD Primary Care Provider + [phone] Encounter Details Date Type Department Care Team (Late st Contact Info) Description 07/29/2024 Lab Requisition [facility] - Main Lab [address] [facility] [place] [id number] Ly Johnson MD [address] [address] Malignant neoplasm of unspecified part of unspecified [...] organism documented in this encounter Care Teams Wool Handler Relationship Specialty Start Date End Date Sarthak Person MD [address] [place] [address] PCP - General Internal Medicine 02/06/15 documented as of this encounter
== END 2024-05-31 00:01 | disposition home or self-care (01) ==
LOC: CF
PROVIDERS: PCP Internal Medicine; Visit Provider Internal Medicine
DX: J43.9 Emphysema, unspecified (principal); C34.11 Malignant neoplasm of upper lobe, right bronchus or lung; F17.210 Nicotine dependence, cigarettes, uncomplicated; J30.9 Allergic rhinitis, unspecified; J96.91 Respiratory failure, unspecified with hypoxia; Z92.21 Personal history of antineoplastic chemotherapy; Z92.3 Personal history of irradiation; Z79.899 Other long term (current) drug therapy
CPT/HCPCS: 99212

== ENCOUNTER 2024-05-31 09:45 | Outpatient (AMB) | payer OTHER, SELFPAY ==
[2024-05-31 09:51] VITALS: BP 102/68; O2SAT 92; BMI 16.7
--- NOTE | 2024-05-31 09:51 | A.OFFVIS_ITS ---
Vital Signs 05/31/24 09:51 Height 5 ft 2 in Weight 91 lb 7.869 oz BMI 16.7 BP 102/68 Blood Pressure Location Lt brachial Position Sitting Pulse Oximetry (%) 92 Oxygen Delivery Method Nasal Cannula Oxygen Flow Rate 4 Intake Visit Reasons: COPD Intake Note: pt is here for follow upand is struggling with her cancer dx, waiting for pet scan next week, her oxygen was in low 80 on her tank, pt put onour tank on 3 liters and still struggling to get to 90, on 4 pt went to 90. Audio Visual Coordinator Required: No Allergies No Known Allergies [NO KNOWN ALLERGIES] Allergy (Unknown, Verified 05/31/24 10:00) unknown Medication List - Last Reconciled 05/31/24 by Zulma Padilla MD acetaminophen (Tylenol Extra Strength) 500 mg PO QID PRN [ADULT PULL UPS (small) As directed] albuterol sulfate 90 mcg/actuation (Ventolin HFA) 1 puff PO Q6H PRN 30 days alosetron 1 mg (2 x 0.5 mg) PO DAILY amlodipine 2.5 mg PO DAILY blood pressure monitor As directed cholecalciferol (vitamin D3) 50 mcg PO DAILY clonazepam 0.5 mg PO BID PRN diphenoxylate-atropine 2.5-0.025 mg (Lomotil) 1 tab PO DAILY PRN fluticasone propionate 50 mcg/actuation 1 spray intranasal DAILY 30 days guaifenesin ER (Mucinex) 600 mg PO Q12H hydrocortisone 2.5% (Proctozone-HC) 1 appl SC BID hydroxyzine HCl 50 mg PO BEDTIME loratadine 10 mg PO DAILY magnesium 250 mg PO BID metoclopramide HCl 5 mg PO TIDAC metoprolol succinate ER 50 mg PO DAILY mirtazapine 30 mg PO BEDTIME nicotine 1 patch transdermal Q24H 28 days MDD smoking nicotine (polacrilex) 4 mg buccal Q8H PRN ondansetron 8 mg PO Q8H PRN oxycodone 5 mg PO Q6H PRN pantoprazole 40 mg PO BID fgpuagyfvcfrr-LL-ubvtzwrjnck 2.5-5-50 mg/5 mL (Robitussin Cough and Cold CF) 15 mL PO Q4H PRN potassium chloride ER 1 tab PO DAILY simvastatin 40 mg PO BEDTIME sodium chloride 1,000 mg PO DAILY solifenacin 10 mg PO DAILY@0900 sucralfate (Carafate) 4 grams (4 x 1 gram) PO DAILY@1200 umeclidinium 62.5 mcg/actuation (Incruse Ellipta) 1 inh inhalation DAILY 30 days HPI HPI COPD: Details: THIS 63 YEARS OLD FEMALE WITH DIAGNOSIS OF SMALL CELL CARCINOMA RIGHT UPPER LOBE BRONCHUS ,CAUSING ATELECTASIS OF THE RIGHT UPPER LOBE, METASTATIC TO THE MEDIASTINAL LYMPH NODES, HAS BEEN TREATED WITH THE CHEMO-RADIATION THERAPY, WITH POOR RESPONSE. HYPONATREMIA FOR WHICH SHE WAS ADMITTED INITIALLY HAS RESOLVED, LUCKILY SHE HAS HAD NO ACUTE PNEUMONIA. HER MAIN PROBLEM IS ONGOING GENERAL WEAKNESS AND SHORTNESS OF BREATH ON MINIMAL EXERTION. SHE IS USING INCRUSE ELLIPTA 1 INHALATION DAILY AND ALBUTEROL P.R.N.. SHE IS ON O2, 24 HOURS A DAY NOW NEEDS 3-4 L/MINUTE WITH ANY MINIMAL EXERCISE. APPETITE IS POOR, AND SHE CONTINUES TO HAVE MARKED GENERALIZED WEAKNESS. [facility] Medical History (Updated 05/31/24 @ 10:24 by Zulma Padilla MD) Respiratory failure with hypoxia 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 Small cell lung cancer Depression Enterococcus, vancomycin-resistant Small cell lung cancer COPD (chronic obstructive pulmonary disease) Small cell lung cancer (~08/2023) MDD (major depressive disorder), recurrent episode, moderate Abnormal CT scan, chest Mass of right lung Lung mass Bronchitis Rectal prolapse Nicotine dependence, cigarettes, uncomplicated Nonrheumatic mitral (valve) insufficiency Pulmonary nodule History of hepatitis C Osteopenia (~2011) IV drug user Endocarditis of mitral valve (~11/2017) Mitral valve prolapse Mitral regurgitation Early satiety Paresthesia of left leg Allergic rhinitis Facet arthritis of lumbar region Cervical spondylosis Vitamin D deficiency Pure hypercholesterolemia Benign essential hypertension GERD (gastroesophageal reflux disease) Anxiety Surgical History History of bronchoscopy (~2023) History of liver biopsy (~2009) History of partial colectomy (~2014) History of hysteroscopy (~2010) History of colonoscopy (~2017) Family History Father Internal bleeding Mother Medical history unknown Social History Household Members: Children Housing: House Housing Other:: lives alone with her cat Malena Are you a primary child care associate teacher to a significant other at home: No Do you presently have visiting nurse or other home services: Yes ([facility] TO HOME ON FOR POSS SERVICES) Alcohol intake: former Patient Tobacco Use Status: Current everyday Tobacco user Tobacco use type: Cigarette Cigarette Packs Per Day: 0.25 Cigarettes Per Day: 5 Years Smoked: 45 e-Cigarette/Vaping Use: Never Used Second Hand Smoke Exposure: Yes Substance Use Type: Marijuana Advance Directives Date on File: 09/23/23 service: No Current occupational status: unemployed Sexual orientation: Straight/Heterosexual Gender identity: Female Cognitive needs: No Hearing needs: No Vision needs: Yes Female Reproductive History Menstrual Age of Menarche: 14 Review of Systems Const All systems reviewed & are unremarkable except as noted in HPI and below Eyes Reports no additional complaints ENT Reports nasal congestion (Off and on due to allergic rhinitis) Card Denies chest pain at rest, Denies irregular heart rhythm and Denies leg edema Resp Reports as per HPI and Reports cough GI Reports heartburn (Controlled with med) Reports no additional complaints Musc Reports no additional complaints Skin/Breast Reports system reviewed and no additional complaints, except as documented Neuro Reports no additional complaints Psych Reports anxiety and Reports depression (Controlled with med) Endo Reports no additional complaints Jose L/Lymph Reports no additional complaints Physical Exam Vital Signs: Last Vital Signs BP 102/68 05/31/24 09:51 BMI result Body Mass Index 16.7 Const General: comfortable, no acute distress, alert and awake Orientation/consciousness: patient oriented x3 HEENT Head: Yes normal to inspection General nose exam: No nasal polyps present, No nasal discharge present and Other nasal findings present (There is is small ulcerated lesion on the right side of the nasal septum,) Face and sinus: Yes sinuses nontender Mouth: oropharynx normal Throat: Yes posterior oropharynx normal Eyes General: appearance normal, both eyes and all related structures Neck Neck: Yes normal visual inspection, Yes no lymphadenopathy, Yes trachea midline and Yes no JVD Thyroid: Thyroid normal Chest Chest palpation & inspection: normal inspection of the chest, normal palpation of entire chest wall and no tenderness Resp Other: Percussion note hyper-resonant, breath sounds are distant with prolonged expiratory phase. There are no audible wheezes or rhonchi heard today. She has good breath sounds over the right upper lobe as well. Cardio Palpation: normal PMI Rate: regular rate Rhythm: regular rhythm Heart sounds: no gallops and no murmurs GI Palpation (GI): Soft to palpation, nontender, No hepatosplenomegaly present and no masses Auscultation: normal bowel sounds Back/Spine/Pelvis Thoracic/Lumbar Spine: thoracic and lumbar spine normal to inspection Skin General skin exam: no rashes or lesions noted Neuro General: patient oriented x3 and no focal motor deficits Cranial nerves: Yes CN's II-XII intact bilaterally Extrem General: Yes normal to inspection, Yes no clubbing, cyanosis or edema and Yes no calf tenderness Psych Speech and movement: Normal speech and movement present Affect: Sad affect present (With depressed mood) Results Reviewed Results Reviewed: RESULTS OF LATEST CHEST X-RAY AND CT SCAN OF THE CHEST ARE REVIEWED. Assessment & Plan Assessment & Plan (1) COPD (chronic obstructive pulmonary disease): Comment: Patient does have chronic obstructive pulmonary disease related to her lifelong smoking. She is doing fairly well with her current regimen. Code(s): J44.9 - Chronic obstructive pulmonary disease, unspecified Category: Medical Qualifiers: COPD type: emphysema Emphysema type: unspecified Qualified Code(s): J4 3.9 - Emphysema, unspecified Plan: CONTINUE INCRUSE ELLIPTA 1 INHALATION DAILY. PROAIR HFA 2 PUFFS Q 6 HOURS P.R.N.. (2) Small cell lung cancer: Comment: DIAGNOSED TO HAVE SMALL CELL CARCINOMA OF THE RIGHT UPPER LOBE WITH MEDIASTINAL LYMPHADENOPATHY. HAS BEEN TREATED WITH CHEMOTHERAPY, CHEMO RADIATION THERAPY, WITH RELATIVELY POOR. RESPONSE SO FOR CONTINUES TO HAVE A RIGHT SUPRAHILAR MASS WITH MEDIASTINAL LYMPH NODES. HYPONATREMIA HAS RESOLVED. Code(s): C34.90 - Malignant neoplasm of unspecified part of unspecified bronchus or lung Category: Medical Plan: ADVISED THE PATIENT TO CONTINUE CLOSE FOLLOW-UP WITH DR. HURD IN ONCOLOGY SERVICE. (3) Nicotine dependence, cigarettes, uncomplicated: Comment: (current smoker - onset 15, 1/2-3/4ppd x 46yrs, 28pyh) Had quit smoking for a few months but now resumed smoking about 5 cigarettes every day. Code(s): F17.210 - Nicotine dependence, cigarettes, uncomplicated Category: Medical Plan: At this stage I do not think I am going to forced her to quit completely. (4) Allergic rhinitis: Comment: , MILD CHRONIC, RELATIVELY CONTROLLED. Code(s): J30.9 - Allergic rhinitis, unspecified Category: Medical Qualifiers: Allergic rhinitis seasonality: unspecified Allergic rhinitis trigger: unspecified Qualified Code(s): J30.9 - Allergic rhinitis, unspecified Plan: Just use Flonase 1 spray in each nostril daily (5) Respiratory failure with hypoxia: Comment: Patient is hypoxemic and she is on O2 24 hours a day. Today her O2 sats were below 90 with 3 L/minute so we had to put her on 4 L/minute. This is partly because of her peripheral vascular disease and very cold hands. As the hands warmed up she was able to maintain O2 sat above 90% with 2 L/min [email or web address]. Code(s): J96.91 - Respiratory failure, unspecified with hypoxia Category: Medical Plan: Continue to use O2 2 L/minute at rest and increased to 3 L/minute when using the portable unit. Coding Level of Care Code Est Pt Level 3 (60821) Diagnoses Pulmonary emphysema, unspecified emphysema type J43.9 COPD type: emphysema Emphysema type: unspecified Small cell lung cancer C34.90 Nicotine dependence, cigarettes, uncomplicated F17.210 Allergic rhinitis, unspecified seasonality, unspecified trigger J30.9 Allergic rhinitis seasonality: unspecified Allergic rhinitis trigger: unspecified Respiratory failure with hypoxia J96.91
--- OUTSIDE RECORDS SUMMARY | 2024-05-31 11:04 | XMS_ITS | Clinical Summary ---
Author Organization [facility] [place] [address] Care Team Providers Care Inserting Machine Operator Name Role Phone Sarthak Person MD Primary Care Provider [phone] Social History Tobacco Use Types Packs/Day Years Used Date Smoking Tobacco: Every Day Smokeless Tobacco: Never Alcohol Use Standard Drinks/Week Comments Not Asked 0 (1 standard drink = 0.6 oz pur e alcohol) Comments Unknown Sex and Gender Information Value Date Recorded Sex Assigned at Not on file Legal Sex Female 11:14 PM EST Gender Identity Not on file Sexual Orientation [...] Screening: P ap Smear 08/21/1980 Pneumococcal Vaccine: 50+ Ye ars (2 of 2 - PCV) 08/02/2015 08/01/2014 Pneumococcal Vaccine: Pediat rics (0 to 5 [...] patient's age to complete this topic Meningococcal B Vacine Aged Out No lo nger eligible based on patient's age to complete this topic RSV Immunization Patients Un rodolfo 20 months Aged Out No longer eligible b ased on patient's age to complete this topic Varicella Vaccines Aged Out No longer eligible based on patient's age to complete this topic Care Teams Inserting Machine Operator Relationship Specialty Start Date End Date Sarthak Person MD [address] [place] [address] [address] [facility] PCP - General Internal Medicine 02/06/15
--- OUTSIDE RECORDS SUMMARY | 2024-05-31 11:04 | XMS_ITS | Data Portability ---
Author Organization [employer] [place] - [employer] Address [address] [place] [address] Care Team Providers Care Lead Front Desk Agent Name Role Phone HIM CCA OTHER GLEN [...] klonopin now for anxiety. FUP with PCP. [email or web address] Not available 12/17/2023 19:52:18 Plan of Treatment [...] % 99 % 2 L/min 98.4 [degF] 35276.4 48 g 88 /min 18 /min 156 mm[Hg] 86 mm[Hg] Not Available [employer] - production 4 19:23:28 Social History None recorded. Functional Status None recorded. Mental Status None recorded. Family History Nothing Reported. Medical History No medical history recorded. Gynecological HistoryNo gynecological history recorded. Obstetrics History GPAL:G 0 P 0 0 0 0 Past Encounters Encounter ID Performer Location Encounter Start Date Encounter Closed Date Diagnosis/Indication Diagnosis SNOMED-CT Code Diagnosis ICD10 Code Diagnosis Note [id number] PK AZAR MD [facility] - [facility] [address] [place] [phone] [id number] 12/17/2023 19:23:25 12/17/2023 21:29:56 Anxiety 07766210 F41.9 Painless r ectal bleeding 847567843 K62.5 Health Concerns Section Related Observation LastModified by Organization Detai ls LastModified Time None Recorded Concern Status LastModified by Organization Details LastModified Time None Recorded Advance Directives Directive None Recorded Payers Encounter Date Sequence Insurance Name Policy Number Policy Dong Covered Member ID Dong Member ID Guarantor Name 12/17/2023 1 [facility] - DOS ON OR AFTER 2022 - DUAL ELIGIBLE - [facility] OPTIONS AND ONE CARE (MEDICARE REPLACEMENT/ADV ANTAGE - HMO) Sarah Medina [id number] Sarah Medina Notes Date Note Type Note [...] ...................... ...................... ...................... ...................... ...................... ...................... ......... Automatic Pad Making Machine Operator Note From Kenroy Cole: Pt co anxiety [...] home o2 2 lpm. Afebrile. Lungs clear. [facility] contacted and advised pt to take another one of her prescribe clonazepam 0.5mg. Pt took during visit. Pt advised to follow up with pcp for referral to therapist in the morning . Pt education on signs indicating the ER. Pt gave email for consent form signature. ...................... ...................... ...................... ...................... ...................... ...................... ......... Disposition: Fulfilled PK AZAR MD [address] [facility],[address], [place], [address], [facility] 12/17/2023 20:37:01 OBGyn Episode No OBEpisode recorded.
== END 2024-05-31 10:18 | disposition home or self-care (01) ==
PROVIDERS: PCP Internal Medicine; Visit Provider Internal Medicine
DX: J43.9 Emphysema, unspecified (principal); C34.90 Malignant neoplasm of unspecified part of unspecified bronchus or lung; F17.210 Nicotine dependence, cigarettes, uncomplicated; J30.9 Allergic rhinitis, unspecified; J96.91 Respiratory failure, unspecified with hypoxia
CPT/HCPCS: 99213

== ENCOUNTER 2024-06-07 13:57 | Outpatient (REF) | payer OTHER, SELFPAY ==
--- NOTE | ~2024-06-07 | PE_ITS ---
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 Lung cancer. TECHNIQUE: 70 minutes following the intravenous administration of 15.5 mCi of fluorine 18 FDG, images from the top of the vertex to proximal thighs were obtained using a combined PET/CT scanner with CT scan based attenuation correction. No oral contrast was administered. No intravenous contrast was administered. Transverse, coronal, sagittal, and volume reconstruction projections were obtained. The patient's blood glucose as determined by a finger stick, was 100 mg/dL immediately prior to injection. The radiotracer was injected intravenously through right forearm, without any complications. Total CT exam dose-length product 275 mGy-cm. * These CT images were obtained using dose optimization techniques as appropriate, variously including the following: Automated exposure control * Adjustment of mA and/or kV according to patient size (this includes techniques or standardized protocols for targeted exams where dose is matched to indication/reason for exam; i.e. extremities or head) * Use of iterative reconstruction technique COMPARISON: None available. FINDINGS: HEAD AND NECK: There is abnormal metabolic FDG activity seen in bilateral supra clavicular bilateral lower cervical neck consistent with metastatic lymphadenopathy on CT there are numerous bilateral neck lymph nodes. The largest left supraclavicular lymph node measures 2.9 cm axial slice 201/2 right supraclavicular lymph node measures 1.9 cm in axial slice 206/2.. CHEST: Ports and Devices: The left internal jugular inserted port with its tip in distal SVC. Lungs: There is intense metabolic activity seen in the entire right hemithorax essentially involving the right lung especially in the upper and lower lobes. . There is air space consolidation which is metabolically active. Pleura: Moderate right pleural effusion with loculated pleural thickening but not metabolically active.. Lymph Nodes: There is intense abnormal metabolic activity seen in the superior mediastinal, paratracheal and left anterior mediastinal lymph nodes. Mediastinum: Heart size and the great vessels are normal caliber. There is mild coronary artery calcifications present. Central trachea and the bronchi are widely patent. Breasts/Chest Wall: No abnormal radiotracer uptake. ABDOMEN/PELVIS: Liver/Biliary System: No focal tracer-avid liver lesion. The gallbladder appears unremarkable. The liver is enlarged. No focal lesion seen on CT. Suspect small radiopaque gallstones or calcification the dependent segment. The gallbladder is nondistended. Pancreas: Normal.No pancreatic ductal dilatation. Spleen: No abnormal radiotracer uptake. No evidence of splenomegaly. Adrenal Glands: No abnormal radiotracer uptake. Kidneys: No hydronephrosis, hydroureter or renal calculi bilaterally. Bowel: There is no significant bowel dilatation to suggest obstruction. Lymph Nodes: No tracer avid retroperitoneal, mesenteric or pelvic and/or groin lymphadenopathy. Pelvic Organs: The urinary bladder is underdistended. MUSCULOSKELETAL: Abnormal metabolic ureter seen in the entire skeletal system. VASCULAR: Abdominal aorta is of normal caliber except for mild atherosclerosis. PET/PET CT fusion skull to thigh IMPRESSION: Diffuse abnormal metabolic activity throughout the entire right lung, left internal mammary lymph nodes, right hilar, middle mediastinal and bilateral supraclavicular lymph nodes including lower neck. No abnormal activity seen in the left lung, upper mid neck, abdomen or pelvis. There is small to moderate right pleural effusion which is not metabolically active. Electronically signed by: Angel Luis Thomas MD 06/08/2024 03:05 PM [facility]
--- OUTSIDE RECORDS SUMMARY | 2024-06-07 17:38 | XMS_ITS | Clinical Summary ---
Author Organization [facility] [place] [address] Care Team Providers Care Senior Functional Analyst Name Role Phone Sarthak Person MD Primary Care Provider [phone] Social History Tobacco Use Types Packs/Day Years [...] age to complete this topic Care Teams Senior Functional Analyst Relationship Specialty Start Date End Date Sarthak Person MD [address] [place] [address] [address] [facility] PCP - General Internal Medicine 02/06/15
--- OUTSIDE RECORDS SUMMARY | 2024-06-07 17:38 | XMS_ITS | Data Portability ---
Author Organization [employer] [place] - [employer] Address [address] [place] [address] Care Team Providers Care Bench Grinder Name Role Phone HIM CCA OTHER GLEN KELLER Primary Care Provider [phone] Assessment Encounter Date Assessment Date Assessment LastModified [...] klonopin now for anxiety. FUP with PCP. [email or web address] Not available 12/17/2023 19:52:18 Plan of Treatment [...] % 99 % 2 L/min 98.4 [degF] 04649.4 48 g 88 /min 18 /min 156 mm[Hg] 86 mm[Hg] Not Available [employer] - production 4 19:23:28 Social History None recorded. Functional Status None recorded. Mental Status None recorded. Family History Nothing Reported. Medical History No medical history recorded. Gynecological HistoryNo gynecological history recorded. Obstetrics History GPAL:G 0 P 0 0 0 0 Past Encounters Encounter ID Performer Location Encounter Start Date Encounter Closed Date Diagnosis/Indication Diagnosis SNOMED-CT Code Diagnosis ICD10 Code Diagnosis Note [id number] PK AZAR MD Main - [facility] [address] [place] [id number] 12/17/2023 19:23:25 12/17/2023 21:29:56 Anxiety 16561676 F41.9 Painless r ectal bleeding 549777233 K62.5 Health Concerns Section Related Observation LastModified by Organization Detai ls LastModified Time None Recorded Concern Status LastModified by Organization Details LastModified Time None Recorded Advance Directives Directive None Recorded Payers Encounter Date Sequence Insurance Name Policy Number Policy Dong Covered Member ID Dong Member ID Guarantor Name 12/17/2023 1 [facility] - DOS ON OR AFTER 2022 - DUAL ELIGIBLE - CARE HOME OPTIONS AND ONE CARE (MEDICARE REPLACEMENT/ADV ANTAGE - HMO) Sarah Medina [id number] Sarah Medina Notes Date Note Type Note [...] ...................... ...................... ...................... ...................... ...................... ...................... ......... Boiler Operator Note From Kenroy Cole: Pt co [...] o2 2 lpm. Afebrile. Lungs clear. [facility] contacted and advised pt to take another one of her prescribe clonazepam 0.5mg. Pt took during visit. Pt advised to follow up with pcp for referral to therapist in the morning . Pt education on signs indicating the ER. Pt gave email for consent form signature. ...................... ...................... ...................... ...................... ...................... ...................... ......... Disposition: Fulfilled PK AZAR MD [address] [place] [address],[address], [place], [address], [facility] 12/17/2023 20:37:01 OBGyn Episode No OBEpisode recorded.
== END 2024-06-07 13:58 | disposition home or self-care (01) ==
LOC: HO.PET 13:57
PROVIDERS: PCP Internal Medicine; Visit Provider Internal Medicine
DX: Z13.89 Encounter for screening for other disorder (principal)

== ENCOUNTER → 2024-07-18 10:51 | Outpatient (BNV) | payer OTHER, SELFPAY | PROVIDERS: PCP Internal Medicine; Visit Provider Internal Medicine Cardiovascular Disease | DX: R00.0 Tachycardia, unspecified (principal) | CPT/HCPCS: 93010 ==

== ENCOUNTER 2024-07-22 20:26 | Inpatient (IN) | payer OTHER, SELFPAY ==
--- NOTE | ~2024-07-22 | XR_ITS ---
CLINICAL HISTORY: CP dyspnea 1 view chest x-ray. Comparison: CR - XR CHEST 2V - 05/10/24 11:22 EST Findings: There is increased consolidation and volume loss throughout the right lung. There is somewhat masslike consolidation in the right perihilar region. A mass with postobstructive pneumonia and atelectasis is possible. CT would be helpful if not recently performed. There may be a right pleural effusion, but difficult to differentiate from the consolidation. Cardiac silhouette is partially obscured by the consolidation, but appears to be within normal limits in size. Left IJ port catheter tip is in the SVC. IMPRESSION: Findings as above. This document has been electronically signed by: Ke Stewart MD on 07/22/2024 22:21:12
[2024-07-22 20:38] VITALS: BP 128/80; PULSE 87; O2SAT 98
[2024-07-22 20:41] VITALS: BP 133/84; PULSE 89; RESP 18; TEMP 36.4; O2SAT 98
[2024-07-22 20:45] VITALS: BP 133/84; PULSE 89; RESP 22; TEMP 36.4; O2SAT 98; BMI 13.6
--- NOTE | 2024-07-22 20:53 | ECG_ITS ---
Test Reason : CHEST PAIN Blood Pressure : */* mmHG Vent. Rate : 82 BPM Atrial Rate : 82 BPM P-R Int : 184 ms QRS Dur : 104 ms QT Int : 420 ms P-R-T Axes : 78 -17 53 degrees QTcB Int : 490 ms Sinus rhythm with marked sinus arrhythmia with occasional Premature ventricular complexes Minimal voltage criteria for LVH, may be normal variant ( [place] product ) Prolonged QT Abnormal ECG When compared with ECG of 18-Jul-2024 10:51, Premature ventricular complexes are now Present Vent. rate has decreased by 40 bpm Referred By: Generic ED Physician Electronically Signed By: PARMJIT HARTLEY MD
--- NOTE | 2024-07-22 21:00 | ED.GENADULT ---
HPI - General Adult General Chief complaint: Dyspnea Stated complaint: CP/SOB/N/V/WEAK HX OF CANCER PER EMS Time Seen by Provider: 07/22/24 20:52 History of Present Illness ED Provider: Delano Mejia MD HPI narrative: [age] female with advanced cancer sent in by oncology team. Patient deciding hospice but still full code. Recent chemo was performed. 4 L nasal cannula oxygen and left chest port at baseline. Vomiting headache chest pain shortness of breath reported Related Data Home Medications ?Medication ?Instructions ?Recorded ?Confirmed potassium chloride 20 mEq 20 meq PO BID 07/21/24 tablet,extended release Previous Rx's ?Medication ?Instructions ?Recorded nicotine 14 mg/24 hr daily 1 patch transdermal Q24H smoking 08/17/23 transdermal patch 28 days #28 ea metoclopramide HCl 5 mg tablet 5 mg PO TIDAC #90 tabs 01/15/24 pantoprazole 40 mg tablet,delayed 40 mg PO BID #60 tabs 01/15/24 release sucralfate 1 gram tablet (Carafate) 4 g (4 x 1 gram) PO DAILY@1200 01/15/24 #120 tabs mirtazapine 30 mg tablet 30 mg PO BEDTIME #90 tabs 01/18/24 umeclidinium 62.5 mcg/actuation 1 inh inhalation DAILY copd 30 02/01/24 blister powder for inhalation days #30 ea (Incruse Ellipta) ADULT PULL UPS (small) #240 ea 02/10/24 blood pressure monitor #1 ea 02/10/24 cholecalciferol (vitamin D3) 50 50 mcg PO DAILY #90 caps 02/29/24 mcg (2,000 unit) capsule amlodipine 2.5 mg tablet 2.5 mg PO DAILY #90 tabs 03/14/24 albuterol sulfate 90 mcg/actuation 1 puff PO Q6H PRN shortness of 03/21/24 aerosol inhaler (Ventolin HFA) breath or wheezing 30 days #8.5 grams hydroxyzine HCl 50 mg tablet 50 mg PO BEDTIME #90 tabs 04/07/24 metoprolol succinate 50 mg 50 mg PO DAILY #90 tabs 04/28/24 tablet,extended release 24 hr alosetron 0.5 mg tablet 1 mg (2 x 0.5 mg) PO DAILY #60 tabs 05/24/24 hydrocortisone 2.5 % topical cream 1 appl [place] BID #30 grams 06/06/24 with perineal applicator (Proctozone-HC) food supplemt, lactose-reduced 1 ea PO TID #30 mL 06/08/24 (Ensure oral liquid) walker (Ultra-Light Rollator misc) #1 ea 06/10/24 simvastatin 40 mg tablet 40 mg PO BEDTIME #90 tabs 06/12/24 loratadine 10 mg tablet 10 mg PO DAILY #30 tabs 06/13/24 ondansetron 8 mg disintegrating 8 mg PO Q8H PRN Nausea And 06/13/24 tablet Vomiting #30 tabs codeine 10 mg-guaifenesin 100 mg/5 5 ml PO Q8H PRN Cough #100 mL 06/14/24 mL oral liquid (Guaifenesin AC) acetaminophen 500 mg tablet 500 mg PO QID PRN Breakthrough 06/20/24 (Tylenol Extra Strength) Pain, Moderate #60 tabs levofloxacin 500 mg tablet 500 mg PO DAILY #7 tabs 06/20/24 Magic Mouthwash 10 ml PO TID #240 mL 06/21/24 Diphen/Nystat/Antacid 1:1:1 240 mL suspension aluminum-mag hydroxide-simethicone 10 ml PO TID PRN Indigestion #250 06/23/24 400 mg-400 mg-40 mg/5 mL oral susp mL (Maalox Maximum Strength) solifenacin 10 mg tablet 10 mg PO DAILY@0900 #90 tabs 06/23/24 loratadine 10 mg tablet 10 mg PO DAILY #30 tabs 07/04/24 food supplemt, lactose-reduced 1 ea PO BID #30 ea 07/11/24 0.04 gram-1 kcal/mL oral liquid (Boost) clonazepam 0.5 mg tablet 0.5 mg PO BID PRN Anxiety #60 tabs 07/18/24 diphenoxylate-atropine 2.5 1 tab PO BID PRN Diarrhea #60 tabs 07/18/24 mg-0.025 mg tablet (Lomotil) loperamide 2 mg capsule (Imodium 2 mg PO Q6H PRN Diarrhea #30 caps 07/18/24 A-D) fluticasone propionate 50 1 spray intranasal DAILY 30 days 07/20/24 mcg/actuation nasal #16 grams spray,suspension magnesium glycinate 100 mg (as 100 mg PO DAILY #30 tabs 07/21/24 glycinate) tablet oxycodone 5 mg tablet 5 mg PO Q4H PRN Severe Pain (Scale 07/22/24 Score 7-10) #30 tabs Allergies Allergy/AdvReac Type Severity Reaction Status Date / Time No Known Allergies Allergy Unknown unknown Verified 07/22/24 20:50 [NO KNOWN ALLERGIES] [facility] Past Medical History Medical History (Updated 07/22/24 @ 22:38 by Delano Mejia MD) Respiratory failure with hypoxia 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 Small cell lung cancer Depression Enterococcus, vancomycin-resistant Small cell lung cancer COPD (chronic obstructive pulmonary disease) Small cell lung cancer (~08/2023) MDD (major depressive disorder), recurrent episode, moderate Abnormal CT scan, chest Mass of right lung Lung mass Bronchitis Rectal prolapse Nicotine dependence, cigarettes, uncomplicated Nonrheumatic mitral (valve) insufficiency Pulmonary nodule History of hepatitis C Osteopenia (~2011) IV drug user Endocarditis of mitral valve (~11/2017) Mitral valve prolapse Mitral regurgitation Early satiety Paresthesia of left leg Allergic rhinitis Facet arthritis of lumbar region Cervical spondylosis Vitamin D deficiency Pure hypercholesterolemia Benign essential hypertension GERD (gastroesophageal reflux disease) Anxiety Surgical History History of bronchoscopy (~2023) History of liver biopsy (~2009) History of partial colectomy (~2014) History of hysteroscopy (~2010) History of colonoscopy (~2017) Family History Family History Father Internal bleeding Mother Medical history unknown Social History Social History Household Members: Children Housing: House Housing Other:: lives alone with her cat Gizmo Are you a primary career center advisor to a significant other at home: No Do you presently have visiting nurse or other home services: Yes ([facility]) Alcohol intake: former Patient Tobacco Use Status: Current everyday Tobacco user Tobacco use type: Cigarette Cigarette Packs Per Day: 0.25 Cigarettes Per Day: 5 Years Smoked: 45 e-Cigarette/Vaping Use: Never Used Second Hand Smoke Exposure: Yes Substance Use Type: Marijuana Advance Directives: Yes Advance Directives on File: Yes Advance Directives Date on File: 09/23/23 service: No Current occupational status: unemployed Sexual orientation: Straight/Heterosexual Gender identity: Female Cognitive needs: No Hearing needs: No Vision needs: Yes Physical Exam ED Vital Signs: Vital Signs - 24 hr 07/22/24 20:41 07/22/24 20:45 Temperature 97.6 F 97.6 F Pulse Rate 89 89 Respiratory Rate 18 22 H Blood Pressure 133/84 133/84 Pulse Oximetry 98 98 Oxygen Delivery Method Nasal Cannula Nasal Cannula Oxygen Flow Rate 5 BMI result Body Mass Index 13.6 Medications Administered Generic Name Dose Route Start Last Admin Trade Name Freq PRN Reason Stop Dose Admin Magnesium Sulfate 2 gm in 50 mls @ 25 mls/hr 07/22/24 21:04 07/22/24 21:46 Magnesium Sulfate/H2o IV 07/22/24 23:03 25 mls/hr ONCE ONE Administration Potassium Chloride/Sodium Chloride 20 meq in 1,000 mls @ 150 mls/hr 07/22/24 21:15 07/22/24 21:46 Kcl 20 Meq In 0.45% Sod IVCONT 150 mls/hr .Q6H40M MANUEL Administration Oxycodone HCl 5 mg 07/22/24 21:40 07/22/24 21:45 Oxycodone Hcl Immed Release 5 Mg Tablet PO 5 mg Q6H PRN Administration Pain, Moderate(Pain Scale 4-6) Discontinued Medications Generic Name Dose Route Start Last Admin Trade Name Freq PRN Reason Stop Dose Admin Ondansetron HCl 4 mg 07/22/24 21:02 07/22/24 21:46 Ondansetron Hcl 4 Mg/2 Ml Vial IVPUSH 07/22/24 21:03 4 mg ONCE ONE Administration Medical Decision Making Medical Decision Making MDM Narrative: 63-year-old female with advanced cancer. She has not yet broach the subject of [employer] and is full code however she has severe frailty can not eat is persistently nauseated. Potassium 2.8 magnesium low despite infusion earlier today. Oncology has notified our rn field case manager that there is no additional cancer therapies available for her have begin to discuss hospice she was supposed to have a visit to the house today but came to the ED. No actionable lab findings. Hydration pain control as needed Admission/Observation Consideration of admission/observation: Escalation of care including admission/observation considered Consult Healthcare Provider Management of the patient was discussed with: Hospitalist Consulted case management who was involved in the case and acted as an intermediary with the oncology service from the infusion center earlier today Lab Data MDM Lab Attestation statement: I reviewed the patient's lab results. 07/22/24 21:09 07/22/24 21:09 Labs: Lab Results 07/22/24 Range/Units 21:09 WBC 15.9 H (4.8-10.8) X10*3/uL RBC 3.11 L (4.20-5.50) X10*6/uL Hgb 9.8 L (12.0-16.0) g/dl Hct 27.6 L (37.0-47.0) % MCV 88.7 (80.0-98.0) fL MCH 31.5 (27.0-33.0) pg MCHC 35.5 H (31.0-35.0) g/dl RDW 16.3 H (11.0-16.0) % Plt Count 110 L (160-400) X10*3/uL MPV 8.5 L (9.4-12.3) fL Immature Gran % (Auto) 1.0 H (0.0-0.4) % Neut % (Auto) 93.3 H (45-73) % Lymph % (Auto) 4.0 L (20-40) % Tucker % (Auto) 1.4 L (2-11) % Eos % (Auto) 0.2 (0-4) % Baso % (Auto) 0.1 (0-2) % Lymph # (Auto) 0.6 L (1.2-4.9) X10*3/uL Tucker # (Auto) 0.2 (0.1-1.2) X10*3/uL Eos # (Auto) 0.0 (0.0-0.4) X10*3/uL Baso # (Auto) 0.0 (0.0-0.2) X10*3/uL Abs Immat Gran (auto) 0.16 H (0.00-0.03) X10*3/uL Absolute Neuts (auto) 14.9 H (2.0-8.3) x10*3/uL Absolute Nucleated RBC 0.000 (0.0-0.012) X10*3/uL Nucleated RBC % (auto) 0.0 (0.0-0.2) /100WBC Smear Tech's Comments VERIFIED Sodium 124 L (135-145) mmol/L Potassium 2.8 L* (3.3-5.1) mmol/L Chloride 88 L (96-108) mmol/L Carbon Dioxide 24 (22-29) mmol/L Anion Gap 15 (12-20) BUN 14 (9-16) mg/dL Creatinine 0.53 (0.5-1.4) mg/dL Estim Creat Clear Calc 57.2 Estimated GFR > 60 Random Glucose 118 H (60-115) mg/dL Calcium 8.7 (8.4-10.2) mg/dL Total Bilirubin 0.5 (0.0-1.0) mg/dL AST 22 (5-31) U/L ALT 10 (0-31) U/L Alkaline Phosphatase 62 (39-117) U/L Troponin I High Sens 11.7 D (<3.5-17.0) ng/L Total Protein 7.0 (6.5-8.0) g/dL Albumin 4.0 (3.5-5.0) g/dL Independent Interpretation I performed an independent interpretation of an: EKG Interpretation: ECG sinus rhythm rate 82 QTC 490, no acute ischemic changes isolated PVC. Prescription Management I considered prescription management with: Pain Medication Chronic Conditions Patient?s care impacted by: Cancer Social Determinants Patient?s care significantly limited by Social Determinants of Health including: Problems related to primary support group Discharge Plan Discharge Clinical Impression: Small cell lung cancer, Acute hypokalemia Patient Disposition: Admitted As Inpatient Prescriptions: No Action mirtazapine 30 mg tablet 30 mg PO BEDTIME Qty: 90 1RF Incruse Ellipta 62.5 mcg/actuation blister with device 1 inh inhalation DAILY 30 Days Qty: 30 5RF (DME) ADULT PULL UPS (small) See Rx Instructions .Route .MEDSUPPLY Qty: 240 12RF Rx Instructions: As directed (DME) blood pressure monitor Kit See Rx Instructions .ROUTE .MEDSUPPLY Qty: 1 0RF Rx Instructions: As directed cholecalciferol (vitamin D3) 50 mcg (2,000 unit) capsule 50 mcg PO DAILY Qty: 90 3RF amlodipine 2.5 mg tablet 2.5 mg PO DAILY Qty: 90 3RF albuterol sulfate [Ventolin HFA] 90 mcg/actuation HFA aerosol inhaler 1 puff PO Q6H PRN (Reason: shortness of breath or wheezing) 30 Days Qty: 8.5 3RF hydroxyzine HCl 50 mg tablet 50 mg PO BEDTIME Qty: 90 1RF metoprolol succinate 50 mg tablet extended release 24 hr 50 mg PO DAILY Qty: 90 1RF alosetron 0.5 mg tablet 1 mg PO DAILY Qty: 60 6RF hydrocortisone [Proctozone-HC] 2.5 % cream with perineal applicator 1 appl [place] BID Qty: 30 3RF (DME) Ultra-Light Rollator Misc See Rx Instructions .Route Qty: 1 0RF Rx Instructions: As directed simvastatin 40 mg tablet 40 mg PO BEDTIME Qty: 90 0RF loratadine 10 mg Tablet 10 mg PO DAILY Qty: 30 0RF solifenacin 10 mg tablet 10 mg PO DAILY@0900 Qty: 90 0RF fluticasone propionate 50 mcg/actuation spray,suspension 1 spray intranasal DAILY 30 Days Qty: 16 2RF Ensure Liquid 1 ea PO TID Qty: 30 3RF ondansetron 8 mg Tablet,Disintegrating 8 mg PO Q8H PRN (Reason: Nausea And Vomiting) Qty: 30 3RF codeine-guaifenesin [Guaifenesin AC] 10-100 mg/5 mL Liquid 5 ml PO Q8H PRN (Reason: Cough) Qty: 100 0RF acetaminophen [Tylenol Extra Strength] 500 mg Tablet 500 mg PO QID PRN (Reason: Breakthrough Pain, Moderate) Qty: 60 0RF levofloxacin 500 mg Tablet 500 mg PO DAILY Qty: 7 0RF Magic Mouthwash Diphen/Nystat/Antacid 1:1:1 240 mL Suspension 10 ml PO TID Qty: 240 1RF Rx Instructions: nystatin 100,000 unit/mL oral suspension 80 mL; diphenhydramine 12.5 mg/5 mL oral liquid 80 mL; aluminum-mag hydroxide-simethicone 400 mg-400 mg-40 mg/5 mL oral susp 80 mL; Per 240 mL alum-mag hydroxide-simeth [Maalox Maximum Strength] 400-400-40 mg/5 mL Suspension 10 ml PO TID PRN (Reason: Indigestion) Qty: 250 0RF loratadine 10 mg Tablet 10 mg PO DAILY Qty: 30 3RF Boost 0.04 gram- 1 kcal/mL Liquid 1 ea PO BID Qty: 30 1RF diphenoxylate-atropine [Lomotil] 2.5-0.025 mg Tablet 1 tab PO BID PRN (Reason: Diarrhea) Qty: 60 0RF loperamide [Imodium A-D] 2 mg Capsule 2 mg PO Q6H PRN (Reason: Diarrhea) Qty: 30 2RF clonazepam 0.5 mg Tablet 0.5 mg PO BID PRN (Reason: Anxiety) Qty: 60 0RF magnesium glycinate 100 mg Tablet 100 mg PO DAILY Qty: 30 1RF Rx Instructions: Stop if you develop diarrhea. potassium chloride 20 mEq Tablet Extended Release 20 meq PO BID oxycodone 5 mg Tablet 5 mg PO Q4H PRN (Reason: Severe Pain (Scale Score 7-10)) Qty: 30 0RF Rx Instructions: Partial Fill upon patient request. nicotine 14 mg/24 hr patch 24 hour 1 patch transdermal Q24H MDD smoking 28 Days Qty: 28 2RF metoclopramide HCl 5 mg tablet 5 mg PO TIDAC Qty: 90 6RF pantoprazole 40 mg tablet,delayed release (DR/EC) 40 mg PO BID Qty: 60 6RF sucralfate [Carafate] 1 gram tablet 4 g PO DAILY@1200 Qty: 120 6RF Print Language: Somali
[2024-07-22 21:14] LABS: Basophils Percent Auto 0.1 % (0-2); Eosinophils Percent Auto 0.2 % (0-4); Hematocrit 27.6 % (37.0-47.0); Hemoglobin 9.8 g/dl (12.0-16.0); Imm Gran Abs Auto 0.16 X10*3/uL (0.00-0.03); Lymphocytes Absolute Auto 0.6 X10*3/uL (1.2-4.9); MANUAL DIFF FLAG SCAN; Mean Corpuscular HGB Conc 35.5 g/dl (31.0-35.0); Mean Corpuscular Hemoglobin 31.5 pg (27.0-33.0); Mean Corpuscular Volume 88.7 fL (80.0-98.0); Mean Platelet Volume 8.5 fL (9.4-12.3); Monocytes Absolute Auto 0.2 X10*3/uL (0.1-1.2); Monocytes Percent Auto 1.4 % (2-11); Neutrophils Absolute Auto 14.9 x10*3/uL (2.0-8.3); Neutrophils Percent Auto 93.3 % (45-73); Platelet Count 110 X10*3/uL (160-400); Red Blood Count 3.11 X10*6/uL (4.20-5.50); Red Cell Distribution Width 16.3 % (11.0-16.0); SCAN SMEAR FLAG 1; White Blood Count 15.9 X10*3/uL (4.8-10.8)
[2024-07-22 21:36] LABS: Alanine Aminotransferase 10 U/L (0-31); Alkaline Phosphatase 62 U/L (39-117); Aspartate Amino Transferase 22 U/L (5-31); Bilirubin Total 0.5 mg/dL (0.0-1.0); Blood Urea Nitrogen 14 mg/dL (9-16); Calcium 8.7 mg/dL (8.4-10.2); Creatinine Clr Calc Pharmacy 57.2; Estimated Glomerular Filt Rate > 60; Glucose Random 118 mg/dL (60-115)
[2024-07-22 21:37] LABS: SLIDE REVIEW VERIFIED; Troponin-I High Sensitivity 11.7 ng/L (<3.5-17.0)
[2024-07-22] MEDS: oxyCODONE HCl Immed Release 5 MG TABLET PO (21:45)
[2024-07-22] MEDS: ondansetron HCL 4 MG/2 ML VIAL IVPUSH (21:46)
[2024-07-22] MEDS: Magnesium Sulfate/H2O 2 GM/50 ML PIGGYBACK IV (21:46)
[2024-07-22] MEDS: KCl 20 mEq in 0.45% Sod 20 MEQ/1,000 ML IV.SOLN 150 MEQ IVCONT (21:46)
--- NOTE | 2024-07-22 21:59 | MHC.CM.ED ---
Addendum entered by Salma Webster 07/22/24 23:14: Hospitalist, Kiana Rene COLLECTIONS CURATOR met with patient. Spoke with patient at length. New MOLST completed. Pt is now a DNR/DNI. Pt has pneumonia. Awaiting admission orders. Referral made via [facility] to [facility] and Hospice. Addendum entered by Salma Webster 07/22/24 22:25: Pt uses oxygen at home. Pt is seen in [facility] oncology clinic and is a patient of Dr. Rodriguez. Pastor Garcia is with patient. Addendum entered by Salma Webster 07/22/24 22:20: Pt lives with daughter Yajaira, upstairs. HCP is on file. MOLST is on file. Pt is a full code. Pt has a hospice appointment on Thursday at home. Per Molly Sparrow RN Oncology nurse navigator, there have been long discussions with this patient regarding need for hospice in a facility, as her family cannot care for her. Patient tells CM that she is dying and they cannot treat her cancer anymore, as she cannot tolerate treatments and then she tells CM that she wants to get better. Patient will be admitted for failure to thrive and pain management. CM requested that hospitalist speak with patient about SCALE MANAGER. CM will place Hospice referral. Original Note: CM received a [place] Text from Molly Sparrow RN oncology Nurse Navigator regarding this patient. Explained that this patient would be in. She has a hospice appointment on Thursday. She has end stage lung CA with mets. She is currently a full code. She may need hospice in a facility. Charge nurse aware. Full report given to Dr. Gay and primary RN. CM met with patient when she arrived. She is requesting Pastor Garcia. Pastor Garcia notified via [place] Text. He will be in to meet with patient. Pt is very weakened. C/O chest pain, headache and nausea.
--- NOTE | 2024-07-22 22:00 | PC.NURSE ---
PT biba from home endorsing increasing SOB, cp and MURO. PT a/ox4, in no acute distress. skin pwd, VSS- On 5L NC- wears 4l at baseline at home crackles note in right lungs, EKG and labs ordered. PT has port in left chest but due pot anxiety around accessing it, tw placed IV in right wrist- pt tolerated well, intact and patent. Medications administered as per MAR. Regan at bedside at this time.
[2024-07-22 22:31] LABS: Anion Gap 15 (12-20); Carbon Dioxide 24 mmol/L (22-29); Chloride 88 mmol/L (96-108); Potassium 2.8 mmol/L (3.3-5.1); Sodium 124 mmol/L (135-145)
--- NOTE | 2024-07-22 23:09 | PC.NURSE ---
Pain reassessment down to 08/13. PT reports it was somewhat effective
--- NOTE | 2024-07-22 23:18 | P.HPHOSP_ITS ---
History of Present Illness Date of Service: 07/22/24 Attending physician on admission: Sonya Lee Chief Complaint: Dyspnea, nausea, dizziness Patient is a 63-year-old female with past medical history of small- cell lung cancer on chemotherapy since September of 2023, depression and anxiety, COPD/tobacco dependence history, hepatitis-C, IV drug abuse, hypertension, hyperlipidemia, GERD, IBS-D, prolapsed rectum came in from home with information that patient learned earlier today that she is dying from her small-cell lung cancer. Patient's last chemotherapy treatment was Thursday and patient also received magnesium. Since then patient has been having increasing shortness of breath, headache, dizziness, chest pain and then started having nausea with vomiting today. Patient denies that there was any blood in her emesis and patient is not coughing up any sputum. Patient does use oxygen at home, 3 L continuously. Current vitals are 133/84, pulse 89, respirations 20, temp 97.6 degrees, pulse ox 98% on 3 L nasal cannula. Patient had notified her nurse navigator that she no longer wanted to continue chemotherapy and also met with the oncologist earlier today and there was an open discussion regarding plans for end of life care and hospice evaluation. Patient stated that hospice was going to come to her home on Thursday. Per nurse navigator, family is not able to care for the patient at home. Plan is for hospice consultation along with Oncology to develop plan for inpatient hospice admission at an available facility and to manage patient's symptoms including nausea and pain. A pneumonia was found on chest x-ray and pt will start antibiotics for noted pneumonia. . Patient's MOLST was reviewed today and patient prior, was a full code. After a lengthy discussion with education regarding the MOLST form, patient did decide to sign a DNR DNI but is not ready to sign for comfort measures at this time. Patient does not want artificial nutrition or dialysis but is willing to continue artificial hydration. In addition patient is having intermittent nausea with dry heaves and patient will receive Ativan 0.5 mg IV and she can have this every 4 hours as needed for nausea and/or anxiety. Patient also has Zofran ordered. Patient has morphine IV push 1 mg every 4 hours as needed for severe pain as patient reports an 8/10 in the right lower quadrant indicating pain from her lung and not from the abdomen per patient. In addition patient wants to continue to take her oxycodone even though she is having nausea and this can contribute to that, 5 mg every 4 hours as needed for moderate pain. Patient does not have excessive secretions so scopolamine patch is not indicated at this time as well as atropine drops. Patient is currently receiving an IV infusion with potassium as her potassium was 2.8 on arrival. Sodium also 124. Patient has poor venous access and we will do limited labs to follow sodium and potassium levels, unless mediport can be accessed. Renal function is stable. It should be noted that patient is alert and orientated x3, able to make decisions for herself at this time. Patient is struggling with the fact that her body is now compromised by her progressive cancer. Patient understands that there is no further treatment available for her cancer. Patient has lost excessive weight since starting chemotherapy and is now down to 33.8 kg with a BMI of 13.6. Supplemental protein shakes are ordered. Patient does try to eat and drink when she can and denies any issues with swallowing. Education provided to patient noting that as time moves forward patient may be sleeping more and awake less. Patient's appetite may also decline. Patient expressed understanding of the education provided. Patient understands that hospice will be coming by and they will have a discussion about further updating the MOLST to comfort measures, which again the patient is not ready to decide on at this time. Patient does have a healthcare proxy her daughter Yajaira. Review of Systems 2 Review of Systems: Patient currently denies any chest pain, shortness of breath at rest, but is reporting persistent nausea intermittently with bouts of dry heaving. Patient still reports some mild dizziness but denies any headache or visual changes. Patient is having right sided pain from the lung area which has been chronic and progressive. Patient denies any open wounds. Patient reports excessive weight loss over the last 6 months but has a fair appetite with no issues regarding swallowing. Yes all other systems are reviewed and are negative [facility] Medical History Respiratory failure with hypoxia 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 Small cell lung cancer Depression Enterococcus, vancomycin-resistant Small cell lung cancer COPD (chronic obstructive pulmonary disease) Small cell lung cancer (~08/2023) MDD (major depressive disorder), recurrent episode, moderate Abnormal CT scan, chest Mass of right lung Lung mass Bronchitis Rectal prolapse Nicotine dependence, cigarettes, uncomplicated Nonrheumatic mitral (valve) insufficiency Pulmonary nodule History of hepatitis C Osteopenia (~2011) IV drug user Endocarditis of mitral valve (~11/2017) Mitral valve prolapse Mitral regurgitation Early satiety Paresthesia of left leg Allergic rhinitis Facet arthritis of lumbar region Cervical spondylosis Vitamin D deficiency Pure hypercholesterolemia Benign essential hypertension GERD (gastroesophageal reflux disease) Anxiety Family History Father Internal bleeding Mother Medical history unknown Surgical History History of bronchoscopy (~2023) History of liver biopsy (~2009) History of partial colectomy (~2014) History of hysteroscopy (~2010) History of colonoscopy (~2017) Social History Household Members: Children Housing: House Housing Other:: lives alone with her cat Malena Are you a primary hearing healthcare practitioner to a significant other at home: No Do you presently have visiting nurse or other home services: Yes ([facility]) Alcohol intake: former Patient Tobacco Use Status: Current everyday Tobacco user Tobacco use type: Cigarette Cigarette Packs Per Day: 0.25 Cigarettes Per Day: 5 Years Smoked: 45 e-Cigarette/Vaping Use: Never Used Second Hand Smoke Exposure: Yes Substance Use Type: Marijuana Advance Directives: Yes Advance Directives on File: Yes Advance Directives Date on File: 09/23/23 service: No Current occupational status: unemployed Sexual orientation: Straight/Heterosexual Gender identity: Female Cognitive needs: No Hearing needs: No Vision needs: Yes Ebola Risk: Travel/Contact With Anyone From Affected Area/s: No Has Patient Experienced Ebola Symptoms: No Meds Allergies Allergy/AdvReac Type Severity Reaction Status Date / Time No Known Allergies Allergy Unknown unknown Verified 07/22/24 20:50 [NO KNOWN ALLERGIES] Active Medications: Current Medications Acetaminophen (Acetaminophen 325 Mg Tablet) 650 mg PO Q6H PRN PRN Reason: Pain, Mild 1-3,fever,headache Albuterol/Ipratropium (Albuterol/Iprat 2.5/0.5mg 3 Ml Ampul.Neb) 3 ml INHALE Q4H [facility] Benzonatate (Benzonatate 100 Mg Capsule) 100 mg PO TID PRN PRN Reason: Cough Calcium Carbonate (Calcium Carbonate 750 Mg Tab.Chew) 750 mg PO Q4H PRN PRN Reason: Heartburn Ceftriaxone Sodium (Ceftriaxone Sodium 1 Gm Vial) 1 gm IVPUSH Q24H [facility] Potassium Chloride/Sodium Chloride (Kcl 20 Meq In 0.45% Sod) 20 meq in 1,000 mls @ 150 mls/hr IVCONT .Q6H40M [facility] Last Admin: 07/22/24 21:46 Dose: 150 mls/hr Azithromycin 500 mg/ Sodium (Chloride) 250 mls @ 125 mls/hr IV Q24H [facility] Magnesium Hydroxide (Milk Of Magnesia 30 Ml Oral.Susp) 30 ml PO DAILY PRN PRN Reason: Constipation Melatonin (Melatonin 3 Mg Tablet) 6 mg PO BEDTIME PRN PRN Reason: Insomnia Ondansetron HCl (Ondansetron Hcl 4 Mg/2 Ml Vial) 4 mg IVPUSH Q8H PRN PRN Reason: Nausea and Vomiting Oxycodone HCl (Oxycodone Hcl Immed Release 5 Mg Tablet) 5 mg PO Q6H PRN PRN Reason: Pain, Moderate(Pain Scale 4-6) Last Admin: 07/22/24 21:45 Dose: 5 mg Oxycodone HCl (Oxycodone Hcl Immed Release 5 Mg Tablet) 5 mg PO Q6H PRN PRN Reason: Pain, Severe (Pain Scale 7-10) Sodium Chloride (0.9 % Sodium Chloride Flush 3 Ml Syringe) [facility] Medications ?Medication ?Instructions ?Recorded ?Confirmed ?Last Taken ?Type potassium chloride 20 mEq 20 meq PO BID 07/21/24 Unknown History tablet,extended release Physical Exam 2 Vital Signs and Narrative: Vital Signs: Last Vital Signs Temp 97.6 F 07/22/24 20:45 Pulse 89 07/22/24 20:45 Resp 22 H 07/22/24 20:45 BP 133/84 07/22/24 20:45 Pulse Ox 98 07/22/24 20:45 O2 Del Method Nasal Cannula 07/22/24 20:45 O2 Flow Rate 5 07/22/24 20:41 Oxygen Flow Rate 5 07/22/24 20:45 BMI result Body Mass Index 13.6 Alert and orientated X3, able to give good history. Weak, underweight. Neuro: CN II-X11 intact, no deficits, visual acuity intact EYES: PERRLA, EOM intact ENT: hearing intact, no issues with swallowing, uvula midline, lips moist, nares patent no epistaxis Cardiac: S1 S2 RRR, no murmur, no JVD, no edema in Lower ext Pulmonary: lungs diminshed, R >L, lymphadenopathy noted neck area, pain with palpation of R diaphragm area Left upper chest mediport noted Abdominal: BS active in all 4 quadrants, no guarding, tenderness, rebounding MSK: strength 3/5 upper and lower extremities : no CVA tenderness no bladder distension Extremities: no edema in lower extremities, PT and DP pulses palpable +2 Psych: mood reflective, judgement and insight good Skin: no open wounds found on exam Results Labs 07/22/24 21:09 07/22/24 21:09 Labs: Laboratory Results - last 24 hr 07/22/24 21:09 MCV 88.7 MCH 31.5 MCHC 35.5 H RDW 16.3 H Plt Count 110 L MPV 8.5 L Immature Gran % (Auto) 1.0 H Neut % (Auto) 93.3 H Lymph % (Auto) 4.0 L [place] % (Auto) 1.4 L Eos % (Auto) 0.2 Baso % (Auto) 0.1 Lymph # (Auto) 0.6 L [place] # (Auto) 0.2 Eos # (Auto) 0.0 Baso # (Auto) 0.0 Abs Immat Gran (auto) 0.16 H Absolute Neuts (auto) 14.9 H Absolute Nucleated RBC 0.000 Nucleated RBC % (auto) 0.0 Smear Tech's Comments VERIFIED Anion Gap 15 Estim Creat Clear Calc 57.2 Estimated GFR > 60 Random Glucose 118 H Calcium 8.7 Total Bilirubin 0.5 AST 22 ALT 10 Alkaline Phosphatase 62 Total Protein 7.0 Albumin 4.0 ECG Prior ECG tracings: not available for review Imaging Radiologist's Impressions: CXR Findings: There is increased consolidation and volume loss throughout the right lung. There is somewhat masslike consolidation in the right perihilar region. A mass with postobstructive pneumonia and atelectasis is possible. CT would be helpful if not recently performed. There may be a right pleural effusion, but difficult to differentiate from the consolidation. Cardiac silhouette is partially obscured by the consolidation, but appears to be within normal limits in size. Left IJ port catheter tip is in the SVC. IMPRESSION: Findings as above. Assessment and Plan (1) Respiratory failure with hypoxia: Qualifiers: Chronicity: acute on chronic Qualified Code(s): J96.21 - Acute and chronic respiratory failure with hypoxia Status: Acute (2) Pneumonia: Qualifiers: Laterality: right Lung location: unspecified part of lung Pneumonia type: due to unspecified organism Qualified Code(s): J18.9 - Pneumonia, unspecified organism Status: Acute (3) Acute hypokalemia: Status: Acute (4) Small cell lung cancer: Qualifiers: Laterality: right Lung location: unspecified part of lung Qualified Code(s): C34.91 - Malignant neoplasm of unspecified part of right bronchus or lung Status: Chronic (5) Encounter for hospice care discussion: Status: Acute Plan Patient is a 63-year-old female with past medical history of small- cell lung cancer on chemotherapy since September of 2023, depression and anxiety, COPD/tobacco dependence history, hepatitis-C, IV drug abuse, hypertension, hyperlipidemia, GERD, IBS-D, prolapsed rectum is seen in the ED for dizziness, nausea and right-sided thoracic pain. Patient had made the decision to stop chemotherapy and is being referred to hospice. Family is unable to care for the patient at home. Acute Respiratory failure with a hypoxia/ pneumonia/small-cell lung cancer -patient normally on 3 L nasal cannula, is currently requiring 5 L -duo nebs scheduled -continuous pulse ox with telemetry -started ceftriaxone azithromycin IV -oncology consulted along with hospice, nurse navigator present in the emergency department Acute hypokalemia -patient currently on IV infusion with potassium, we will avoid oral supplementation as patient is nauseous -patient has poor venous access, we will perform limited labs unless MediPort can be accessed -Telemetry Encounter for hospice care discussion -patient came in as a full code status. Lengthy discussion regarding MOLST, DNR DNI status and comfort measures was done during the admission process. Patient was willing to sign a DNR DNI but is not yet ready to move forward with comfort measures. Would like to speak to hospice first. -Hospice consulted, patient was going to see hospice at home on ThursdayJuly 24. Family is not able to care for the patient at home so in-home hospice care is not an option. -Patient will continue with Ativan IV for nausea and anxiety, morphine IV for severe pain, oxycodone for moderate pain, Zofran for nausea and additional measures as needed. Patient does not require a scopolamine patch or atropine drops as there are no secretions. Patient remains alert and orientated at this time, able to make decisions for herself. Patient does have a healthcare proxy her daughter YAJAIRA. -pastoral care present, nurse navigator following -if decision made to move forward with comfort measures, treatment plan and orders will need to be updated. DVT prophylaxis: Lovenox PPI prophylaxis: Pantoprazole Patient will require inpatient admission for acute hypoxic respiratory failure, low potassium level with need for hospice care consultation as family can no longer care for patient at home considering her cancer is progressing and patient has decided to stop chemotherapy. Expert consultation with hospice care and Oncology have been requested. Total time managing care of this patient today: 45 minutes. Quality Stroke Does the patient have a stroke diagnosis?: No Reason for No Anti-thrombotic by Day Two: N/A - Med Ordered VTE Prior VTE?: No VTE Risk Level:: Medical - moderate - high VTE Device Contraindication: Treatment Not Tolerated VTE Drug Contraindication: N/A - Med Ordered
[2024-07-22 23:32] VITALS: PULSE 77; RESP 16; O2SAT 100
[2024-07-22] MEDS: Albuterol/Iprat 2.5/0.5MG 3 ML AMPUL.NEB INHALE (23:32)
[2024-07-22] MEDS: cefTRIAXone sodium 1 GM VIAL IVPUSH (23:58)
[2024-07-23] VITALS (16 sets, daily range): BP systolic 110–149; BP diastolic 58–81; PULSE 70–95; RESP 16–20; TEMP 36.1–37.3; O2SAT 95–99; BMI 17.3
--- NOTE | 2024-07-23 | ECG_ITS ---
Test Reason : DYSRYTHMIA Blood Pressure : */* mmHG Vent. Rate : 84 BPM Atrial Rate : 84 BPM P-R Int : 186 ms QRS Dur : 96 ms QT Int : 432 ms P-R-T Axes : 63 -22 52 degrees QTcB Int : 510 ms Sinus rhythm with Premature supraventricular complexes Possible Left atrial enlargement Minimal voltage criteria for LVH, may be normal variant ( Eran product ) Prolonged QT Abnormal ECG When compared with ECG of 22-Jul-2024 20:53, Premature ventricular complexes are no longer Present Premature supraventricular complexes are now Present Nonspecific T wave abnormality now evident in Anterior leads Referred By: Kiana Rene Electronically Signed By: PARMJIT HARTLEY MD
[2024-07-23] MEDS: Azithromycin 500 MG in 0.9 % Sodium Chloride 250 ML 125 MG IV ×2 (00:45→23:00)
[2024-07-23] MEDS: diazePAM 10 MG/2 ML CARTRIDGE 5 MG IVPUSH (01:22)
[2024-07-23] MEDS: Potassium Chloride/H20 10 MEQ/100 ML PIGGYBACK 100 MEQ IV ×4 (02:30→08:05)
--- NOTE | 2024-07-23 02:42 | PC.NURSE ---
continuous infusion paused. 1st bag of 10meg K infusing in right wrist.
[2024-07-23] MEDS: Potassium Chloride Packet 20 MEQ PACKET 40 MEQ PO (08:04)
[2024-07-23] MEDS: oxyCODONE HCl Immed Release 5 MG TABLET PO ×3 (08:04→23:39)
[2024-07-23] MEDS: LORazepam 0.5 MG TABLET PO (08:04)
[2024-07-23] MEDS: 0.9 % Sodium Chloride Flush 3 ML SYRINGE IVFLUSH ×3 (08:04→21:06)
[2024-07-23] MEDS: Albuterol/Iprat 2.5/0.5MG 3 ML AMPUL.NEB INHALE ×2 (08:19→16:00)
--- NOTE | 2024-07-23 09:15 | PHA.MEDREC ---
Pharmacy Consult ? Medication Reconciliation Pharmacy has completed the medication reconciliation. Spoke to pt to confirm meds. Per pt, no longer taking amlodipine, guaifenesin AC, magic mouthwash, magnesium glycinate, metoprolol succ, morphine, or simvastatin. Pt also reports recent increase in potassium from 20 mEq daily to 20 mEq BID.
[2024-07-23 09:37] LABS: Hemoglobin 7.1 g/dl (12.0-16.0); Mean Corpuscular HGB Conc 34.6 g/dl (31.0-35.0); Mean Corpuscular Hemoglobin 31.4 pg (27.0-33.0); Mean Corpuscular Volume 90.7 fL (80.0-98.0); Mean Platelet Volume 9.6 fL (9.4-12.3); Red Blood Count 2.26 X10*6/uL (4.20-5.50); Red Cell Distribution Width 16.4 % (11.0-16.0)
[2024-07-23 10:00] LABS: Hematocrit 20.5 % (37.0-47.0); Platelet Count 72 X10*3/uL (160-400)
[2024-07-23 10:01] LABS: Band Neutrophils Percent 3 % (3-5); Hypochromasia 1+ (5-14) /OIF; Monocytes Absolute Manual 0.7 X10*3/uL (0.1-1.2); Monocytes Percent Manual 4 % (2-11); Neutrophils Absolute Manual 16.3 X10*3/uL (2.0-8.3); Neutrophils Percent Manual 93 % (45-73); Platelet Estimate DECREASED (NORMAL); Platelet Morphology Comment NORMAL; RBC Morphology NOTED
[2024-07-23 10:13] LABS: Anion Gap 11 (12-20); Blood Urea Nitrogen 10 mg/dL (9-16); Calcium 8.2 mg/dL (8.4-10.2); Carbon Dioxide 24 mmol/L (22-29); Chloride 91 mmol/L (96-108); Creatinine Clr Calc Pharmacy 87.5; Estimated Glomerular Filt Rate > 60; Glucose Random 83 mg/dL (60-115); Potassium 3.4 mmol/L (3.3-5.1); Sodium 123 mmol/L (135-145)
[2024-07-23] MEDS: Calcium Carbonate 750 MG TAB.CHEW PO (11:00)
--- NOTE | 2024-07-23 11:23 | MHC.CM.PN ---
Addendum entered by Bella Serra 07/23/24 14:19: CM SPOKE WITH ONCOLOGIST WHO REPORTS THE PT WANTS TO GO HOME AND THEN GO TO [facility] IN ONE TO TWO DAYS PER PVR, PT COULD BE ADMITTED FROM HOME FOR SENIOR CARE CARE BY HER ONCOLOGIST OR PCP REFERRALS MADE TO LOCAL SNFS Original Note: PT REPORTS SHE LIVES IN A DUPLEX, HER DAUGHTER LIVES IN THE OTHER HALF HER DAUGHTER WORKS FT AND ASSISTS WITH MEALS, CARE AND TRANSPORTATION PT ALSO HAS [facility] AND A COUNSELOR FROM [facility] SHE IS 1 DEPENDENT HCP ON FILE: 1. MARY [phone] 2. COLT [phone] PCP: GLEN KELLER IMM DELIVERED PT STATES SHE HAD AN APPT SCHEDULED WITH HOSPICE FOR AN INFO SESSION AT HOME TOMORROW SHE WOULD STILL LIKE THE INFORMATIONAL, REFERRAL SENT INFORMING THEM OF HER INPT STATUS THEY WILL COMPLETE INFO SESSION VIA T/C PT WOULD PREFER TO MEET WITH HOSPICE ALONE AT THIS TIME, SHE WILL INCLUDE HER FAMILY ONCE HER GOALS ARE ESTABLISHED SHE UNDERSTANDS THAT FAMILY WOULD NEED TO BE INCLUDED FOR A DC HOME WITH HOSPICE SERVICES TRANSPORT TBD BY DISPOSITION
--- NOTE | 2024-07-23 11:53 | P.PNIM_ITS ---
Subjective Subjective Date of Service: 07/23/24 Interval History: seen and evaluated Feels little better no fever or chills no other events Review of Systems Review of Systems: Yes all other systems are reviewed and are negative Physical Exam 2 Vital Signs: Vital Signs: Last Vital Signs Temp 97.9 F 07/23/24 11:10 Pulse 84 07/23/24 11:10 Resp 20 07/23/24 11:10 BP 141/71 H 07/23/24 11:10 Pulse Ox 99 07/23/24 11:10 O2 Del Method Nasal Cannula 07/23/24 11:10 O2 Flow Rate 2 07/23/24 11:10 Oxygen Flow Rate 5 07/22/24 20:45 BMI result Body Mass Index 17.3 Const: Other: Constitutional : interactive, not in distress, looks frail Cardiovascular : no JVP, no lower extremity edema Respiratory : bilateral chest movement, not in resp distress , basal crackles , OPn O2 supplement Gastrointestinal: soft, lax, Non tender Skin : Warm, Dry Neurological : Alert & oriented , No focal deficit Objective Data Active Medications Acetaminophen (Acetaminophen 325 Mg Tablet) 650 mg PO Q6H PRN PRN Reason: Pain, Mild 1-3,fever,headache Albuterol/Ipratropium (Albuterol/Iprat 2.5/0.5mg 3 Ml Ampul.Neb) 3 ml INHALE Q4H [facility] Last Admin: 07/23/24 11:52 Dose: Not Given Documented By: JEN Non-Admin Reason: Patient Refused Benzonatate (Benzonatate 100 Mg Capsule) 100 mg PO TID PRN PRN Reason: Cough Calcium Carbonate (Calcium Carbonate 750 Mg Tab.Chew) 750 mg PO Q4H PRN PRN Reason: Heartburn Last Admin: 07/23/24 11:00 Dose: 750 mg Documented By: KARLO Ceftriaxone Sodium (Ceftriaxone Sodium 1 Gm Vial) 1 gm IVPUSH Q24H [facility] Last Admin: 07/22/24 23:58 Dose: 1 gm Documented By: ACOSTA Azithromycin 500 mg/ Sodium (Chloride) 250 mls @ 125 mls/hr IV Q24H [facility] Last Infusion: 07/23/24 03:30 Dose: Infused Documented By: ALBERTO Lorazepam (Lorazepam 0.5 Mg Tablet) 0.5 mg PO Q4H PRN PRN Reason: anxiety/restlessness Last Admin: 07/23/24 08:04 Dose: 0.5 mg Documented By: KARLO Magnesium Hydroxide (Milk Of Magnesia 30 Ml Oral.Susp) 30 ml PO DAILY PRN PRN Reason: Constipation Melatonin (Melatonin 3 Mg Tablet) 6 mg PO BEDTIME PRN PRN Reason: Insomnia Morphine Sulfate (Morphine Sulfate 2 Mg/Ml Cartridge) 2 mg IVPUSH Q3H PRN; Protocol PRN Reason: Pain, Severe (Pain Scale 7-10) Ondansetron HCl (Ondansetron Hcl 4 Mg/2 Ml Vial) 4 mg IVPUSH Q8H PRN PRN Reason: Nausea and Vomiting Oxycodone HCl (Oxycodone Hcl Immed Release 5 Mg Tablet) 5 mg PO Q6H PRN PRN Reason: Pain, Moderate(Pain Scale 4-6) Last Admin: 07/23/24 08:04 Dose: 5 mg Documented By: KARLO Sodium Chloride (0.9 % Sodium Chloride Flush 3 Ml Syringe) 3 ml IVFLUSH QSHIFT [facility] Last Admin: 07/23/24 08:04 Dose: 3 ml Documented By: KARLO Labs 07/23/24 08:25 07/23/24 08:25 Labs: Laboratory Results - last 24 hr 07/22/24 07/23/24 21:09 08:25 MCV 88.7 90.7 MCH 31.5 31.4 MCHC 35.5 H 34.6 RDW 16.3 H 16.4 H Plt Count 110 L 72 L D MPV 8.5 L 9.6 Immature Gran % (Auto) 1.0 H Cancelled Neut % (Auto) 93.3 H Cancelled Lymph % (Auto) 4.0 L Cancelled [place] % (Auto) 1.4 L Cancelled Eos % (Auto) 0.2 Cancelled Baso % (Auto) 0.1 Cancelled Lymph # (Auto) 0.6 L Cancelled [place] # (Auto) 0.2 Cancelled Eos # (Auto) 0.0 Cancelled Baso # (Auto) 0.0 Cancelled Abs Immat Gran (auto) 0.16 H Cancelled Absolute Neuts (auto) 14.9 H Cancelled Absolute Nucleated RBC 0.000 0.000 Nucleated RBC % (auto) 0.0 0.0 Neutrophils % (Manual) 93 H Band Neutrophils % 3 Monocytes % (Manual) 4 Abs Neuts (Manual) 16.3 H Monocytes # (Manual) 0.7 Platelet Estimate DECREASED Plt Morphology Comment NORMAL RBC Morphology NOTED Hypochromasia 1+ (5-14) Smear Tech's Comments VERIFIED Anion Gap 15 11 L Estim Creat Clear Calc 57.2 87.5 Estimated GFR > 60 > 60 Random Glucose 118 H 83 Calcium 8.7 8.2 L Total Bilirubin 0.5 AST 22 ALT 10 Alkaline Phosphatase 62 Total Protein 7.0 Albumin 4.0 Assessment and Plan (1) Pneumonia: Status: Acute (2) Acute hypokalemia: Status: Acute (3) Small cell lung cancer: Status: Chronic Plan Patient is a 63-year-old female with past medical history of small- cell lung cancer on chemotherapy since September of 2023, depression and anxiety, COPD/tobacco dependence history, hepatitis-C, IV drug abuse, hypertension, hyperlipidemia, GERD, IBS-D, prolapsed rectum is seen in the ED for dizziness, nausea and right-sided thoracic pain. Patient had made the decision to stop chemotherapy and is being referred to hospice. Family is unable to care for the patient at home. Acute Respiratory failure with a hypoxia/ pneumonia feels better duo nebs scheduled wean down O2 as tolerated Ceftriaxone azithromycin IV oncology consulted along with hospice Acute hypokalemia IV infusion with potassium, avoid oral supplementation as patient is nauseous follow BMP small-cell lung cancer wants to speak to hospice regarding home vs hospice at facility. Ativan for nausea and anxiety, morphine IV for severe pain, oxycodone for moderate pain, Zofran for nausea DVT prophylaxis: Lovenox DNR\DNI; Patient will require inpatient admission for acute hypoxic respiratory failure, low potassium level with need for hospice care consultation as family can no longer care for patient at home considering her cancer is progressing and patient has decided to stop chemotherapy. Expert consultation with hospice care and Oncology have been requested. Quality Stroke Does the patient have a stroke diagnosis?: No Reason for No Anti-thrombotic by Day Two: N/A - Med Ordered VTE Prior VTE?: No VTE Risk Level:: Medical - moderate - high VTE Device Contraindication: Treatment Not Tolerated VTE Drug Contraindication: N/A - Med Ordered
--- NOTE | 2024-07-23 11:53 | PM.HEMONCCN ---
Subjective - Subjective Chief complaint: Consult for: Small-cell carcinoma of the lung. Patient: known to practice within the last 3 years Consult date: 07/23/24 Requesting Physician: Pacheco Primary Care Provider: Sarthak Jenkins MD Family Provider: Raza. Medical Summary: DIAGNOSIS: SMALL-CELL CARCINOMA OF THE LUNG. Plant Quality Manager Utilized?: No - Russian Speaking HPI - Consult Narrative Reason for consult: Consult for: Small-cell lung carcinoma. End of life care. Narrative: Sarah Medina is a 63 year old lady, past medical history of small-cell lung cancer on chemotherapy since September of 2023. Patient's last chemotherapy treatment was Thursday and patient also received magnesium. She heard yesterday that she is dying from her Lung cancer. Since then patient has been having increasing shortness of breath, headache, dizziness, chest pain.Yesterday she started having nausea and vomiting. Patient denies that there was any blood in her emesis and patient is not coughing up any sputum. She uses oxygen at home, 3 L continuously. Current vitals are 133/84, pulse 89, respirations 20, temp 97.6 degrees, pulse ox 98% on 3 L nasal cannula. Patient had notified her nurse navigator that she no longer wanted to continue chemotherapy and also met with the oncologist, and there was an open discussion regarding plans for end of life care and hospice evaluation. Patient stated that hospice was going to come to her home on Thursday. Family is not able to care for the patient at home. Plan is for hospice consultation along with Oncology to develop plan for inpatient hospice admission at an available facility and to manage patient's symptoms including nausea and pain. A pneumonia was found on chest x-ray and pt will start antibiotics for noted pneumonia. MOLST was reviewed. After a lengthy discussion with education regarding the MOLST form, patient did decide to sign a DNR DNI but is not ready to sign for comfort measures at this time. Patient does not want artificial nutrition or dialysis but is willing to continue artificial hydration. In addition patient is having intermittent nausea with dry heaves and patient will receive Ativan 0.5 mg IV and she can have this every 4 hours as needed for nausea and/or anxiety. Patient also has Zofran ordered. Patient has morphine IV push 1 mg every 4 hours as needed for severe pain as patient reports an 8/10 in the right lower quadrant indicating pain from her lung and not from the abdomen per patient. In addition patient wants to continue to take her oxycodone even though she is having nausea and this can contribute to that, 5 mg every 4 hours as needed for moderate pain. Patient does not have excessive secretions so scopolamine patch is not indicated at this time as well as atropine drops. Patient received IV infusion with potassium as her potassium was 2.8 on arrival. Sodium also 124. Patient has poor venous access and we will do limited labs to follow sodium and potassium levels, unless mediport can be accessed. Renal function is stable. It should be noted that patient is alert and orientated x3, able to make decisions for herself at this time. Patient is struggling with the fact that her body is now compromised by her progressive cancer. Patient understands that there is no further treatment available for her cancer. Patient has lost excessive weight since starting chemotherapy and is now down to 33.8 kg with a BMI of 13.6. Supplemental protein shakes are ordered. Patient does try to eat and drink when she can and denies any issues with swallowing. Education provided to patient noting that as time moves forward patient may be sleeping more and awake less. Patient's appetite may also decline. Patient expressed understanding of the education provided. Patient understands that hospice will be coming by and they will have a discussion about further updating the MOLST to comfort measures, which again the patient is not ready to decide on at this time. Patient does have a healthcare proxy her daughter Yajaira. Medical History:) Depression and anxiety, COPD/tobacco dependence history, Hepatitis-C, IV drug abuse, Hypertension, hyperlipidemia, GERD, IBS-D, prolapsed rectum. Respiratory failure with hypoxia 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 Small cell lung cancer Depression Enterococcus, vancomycin-resistant Small cell lung cancer COPD (chronic obstructive pulmonary disease) Small cell lung cancer (~08/2023) MDD (major depressive disorder), recurrent episode, moderate Abnormal CT scan, chest Mass of right lung Lung mass Bronchitis Rectal prolapse Nicotine dependence, cigarettes, uncomplicated Nonrheumatic mitral (valve) insufficiency Pulmonary nodule History of hepatitis C Osteopenia (~2011) IV drug user Endocarditis of mitral valve (~11/2017) Mitral valve prolapse Mitral regurgitation Early satiety Paresthesia of left leg Allergic rhinitis Facet arthritis of lumbar region Cervical spondylosis Vitamin D deficiency Pure hypercholesterolemia Benign essential hypertension GERD (gastroesophageal reflux disease) Anxiety. Surgical History: History of bronchoscopy (~2023) Family History:) Father Internal bleeding Mother Medical history unknown [facility] Medical History: Medical History (Last Reviewed 07/22/24 @ 23:38 by CECY Valdovinos) Abnormal CT scan, chest Allergic rhinitis Anxiety Benign essential hypertension Bronchitis Cervical spondylosis COPD (chronic obstructive pulmonary disease) Depression Early satiety Endocarditis of mitral valve Onset Date: ~11/2017 Enterococcus, vancomycin-resistant Facet arthritis of lumbar region 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 GERD (gastroesophageal reflux disease) History of hepatitis C IV drug user Lung mass Mass of right lung MDD (major depressive disorder), recurrent episode, moderate Mitral regurgitation Mitral valve prolapse Nicotine dependence, cigarettes, uncomplicated Nonrheumatic mitral (valve) insufficiency Osteopenia Onset Date: ~2011 Paresthesia of left leg Pulmonary nodule Pure hypercholesterolemia Rectal prolapse Respiratory failure with hypoxia Small cell lung cancer Onset Date: ~08/2023 Small cell lung cancer Small cell lung cancer Vitamin D deficiency Family History: Family History (Last Reviewed 07/22/24 @ 23:38 by CECY Valdovinos) Father Internal bleeding Mother Medical history unknown Surgical History: Surgical History (Last Reviewed 07/22/24 @ 23:38 by CECY Valdovinos) History of bronchoscopy Onset Date: ~2023 History of colonoscopy Onset Date: ~2017 History of hysteroscopy Onset Date: ~2010 History of liver biopsy Onset Date: ~2009 History of partial colectomy Onset Date: ~2014 Social History: Social History (Last Reviewed 07/22/24 @ 23:38 by CECY Valdovinos) Living Situation History: Household Members: None Household Members Other:: DAUGHTER LIVES DOWNSTAIRS IN TWO BEDROOM HOME Housing: House Housing Other:: lives alone with her cat Gizmo Are you a primary after school caregiver to a significant other at home: No Do you presently have visiting nurse or other home services: Yes Tobacco History: Patient Tobacco Use Status: Current everyday Tobacco Tobacco use type: Cigarette Cigarette Packs Per Day: 0.25 Years Smoked: 45 e-Cigarette/Vaping Use: Never Used Second Hand Smoke Exposure: No Substance Use History: Substance Use Type: Marijuana Advance Directives: Advance Directives Date on File: 09/23/23 Occupation Assessmet: service: No Current occupational status: unemployed Sex/Gender Assessment: Sexual orientation: Straight/Heterosexual Gender identity: Female - Travel History Ebola Risk: Travel/Contact With Anyone From Affected Area/s: No Has Patient Experienced Ebola Symptoms: No Home Medications and Allergies Current Medications: Current Medications Acetaminophen (Acetaminophen 325 Mg Tablet) 650 mg PO Q6H PRN PRN Reason: Pain, Mild 1-3,fever,headache Albuterol/Ipratropium (Albuterol/Iprat 2.5/0.5mg 3 Ml Ampul.Neb) 3 ml INHALE Q4H [facility] Last Admin: 07/23/24 11:52 Dose: Not Given Benzonatate (Benzonatate 100 Mg Capsule) 100 mg PO TID PRN PRN Reason: Cough Calcium Carbonate (Calcium Carbonate 750 Mg Tab.Chew) 750 mg PO Q4H PRN PRN Reason: Heartburn Last Admin: 07/23/24 11:00 Dose: 750 mg Ceftriaxone Sodium (Ceftriaxone Sodium 1 Gm Vial) 1 gm IVPUSH Q24H [facility] Last Admin: 07/22/24 23:58 Dose: 1 gm Azithromycin 500 mg/ Sodium (Chloride) 250 mls @ 125 mls/hr IV Q24H [facility] Last Infusion: 07/23/24 03:30 Dose: Infused Lorazepam (Lorazepam 0.5 Mg Tablet) 0.5 mg PO Q4H PRN PRN Reason: anxiety/restlessness Last Admin: 07/23/24 08:04 Dose: 0.5 mg Magnesium Hydroxide (Milk Of Magnesia 30 Ml Oral.Susp) 30 ml PO DAILY PRN PRN Reason: Constipation Melatonin (Melatonin 3 Mg Tablet) 6 mg PO BEDTIME PRN PRN Reason: Insomnia Morphine Sulfate (Morphine Sulfate 2 Mg/Ml Cartridge) 2 mg IVPUSH Q3H PRN; Protocol PRN Reason: Pain, Severe (Pain Scale 7-10) Ondansetron HCl (Ondansetron Hcl 4 Mg/2 Ml Vial) 4 mg IVPUSH Q8H PRN PRN Reason: Nausea and Vomiting Oxycodone HCl (Oxycodone Hcl Immed Release 5 Mg Tablet) 5 mg PO Q6H PRN PRN Reason: Pain, Moderate(Pain Scale 4-6) Last Admin: 07/23/24 08:04 Dose: 5 mg Sodium Chloride (0.9 % Sodium Chloride Flush 3 Ml Syringe) 3 ml IVFLUSH [facility] Last Admin: 07/23/24 08:04 Dose: 3 ml Home Medications ?Medication ?Instructions ?Recorded ?Confirmed ?Type potassium chloride 20 mEq 20 meq PO BID 07/21/24 07/23/24 History tablet,extended release hydrocortisone 2.5 % topical cream 1 appl [place] BID PRN Hemorrhoids 07/23/24 07/23/24 History with perineal applicator (Proctozone-HC) Allergies Allergy/AdvReac Type Severity Reaction Status Date / Time No Known Allergies Allergy Unknown unknown Verified 07/22/24 20:50 [NO KNOWN ALLERGIES] Physical Exam Vital signs: Vital Signs Temp 97.9 F 07/23/24 11:10 Pulse 84 07/23/24 11:10 Resp 20 07/23/24 11:10 BP 141/71 H 07/23/24 11:10 Pulse Ox 99 07/23/24 11:10 O2 Del Method Nasal Cannula 07/23/24 11:10 O2 Flow Rate 2 07/23/24 11:10 Intake & Output 07/22/24 07/23/24 07/23/24 18:59 06:59 18:59 Intake Total 1018 / 1018 200 / 200 Output Total 400 / 400 Balance 618 / 618 200 / 200 Urine Output (Average ml/kg/hr) 0.78 0.78 Intake: Intake, IV Amount 1018 / 1018 200 / 200 Azithromycin 500 mg In 0.9 % 250 / 250 Sodium Chloride 250 ml @ 125 mls/hr IV Q24H [facility] Rx#: [id number] Magnesium Sulfate/H2O 2 gm In 50 / 50 50 ml @ 25 mls/hr IV ONCE ONE Rx#:[id number] Potassium Chloride/H20 10 meq 200 / 200 200 / 200 In 100 ml @ 100 mls/hr IV Q1H [facility] Rx#:[id number] KCl 20 mEq in 0.45% Sod 20 meq 518 / 518 0 / 0 In 1,000 ml @ 150 mls/hr IVCONT .Q6H40M [facility] Rx#:[id number] Output: Output, Urine Amount 400 / 400 Other: Number of Bowel Movements 1 Urine purewic Urine Color Tea Last Bowel Movement 07/23/24 07/23/24 Stool Amount Scant Stool Color Brown Stool Consistency Loose Weight 42.9 kg Weight in Grams 20489 Weight 42.9 kg - Constitutional Present: moderate distress - Routine HEENT Exam Head: Present: normal inspection, normocephalic ENT: Present: mucous membranes moist - Routine Respiratory Exam Present: decreased breath sounds, CTAB - Routine Cardiovascular Exam Cardiovascular: Present: RRR, S1, S2 - Routine Abdominal Exam Present: soft, nontender - Routine Extremities Exam Present: nontender - Routine Skin Exam Present: intact, normal turgor - Routine Neurological Exam Present: alert, oriented X3 - Detailed Neurological Exam: Coma Scale Eye Opening: Spontaneous (4) Verbal Response: Oriented (5) Hem/Onc Consult Result - Labs CBC & Chem 7: 07/23/24 08:25 07/23/24 08:25 Labs: Short CBC 07/22/24 07/23/24 Range/Units 21:09 08:25 WBC 15.9 H 17.0 H (4.8-10.8) X10*3/uL Hgb 9.8 L 7.1 L D (12.0-16.0) g/dl Hct 27.6 L 20.5 L* D (37.0-47.0) % Plt Count 110 L 72 L D (160-400) X10*3/uL BMP 07/22/24 07/23/24 21:09 08:25 Sodium 124 L 123 L Potassium 2.8 L* 3.4 D Chloride 88 L 91 L Carbon Dioxide 24 24 BUN 14 10 Creatinine 0.53 0.44 L Calcium 8.7 8.2 L Liver Function 07/22/24 Range/Units 21:09 Total Bilirubin 0.5 (0.0-1.0) mg/dL AST 22 (5-31) U/L ALT 10 (0-31) U/L Alkaline Phosphatase 62 (39-117) U/L Albumin 4.0 (3.5-5.0) g/dL Assessment and Plan Patient Active problem list reviewed?: Yes (1) Small cell lung cancer Problem details: (Right Upper Lobe - Clinical stage T3 N2, Stage IIIB - Dx 08/2023) Status: Chronic Assessment and plan: This is a 63-year-old woman diagnosed with small cell lung cancer involving right hilum in August 2023. PET scan performed at [facility] on 09/11/2023 showed FDG avid right hilar/suprahilar mass with SUV 12.6, FDG avid mediastinal and right hilar lymphadenopathy. Left supraclavicular lymph node SUV max 4.2, right supraclavicular lymph node SUV max 2, right paratracheal SUV max 9.4, anterior mediastinal SUV max 4.8. Nonspecific focal activity in anal canal SUV 15.3. Brain MRI performed 09/10/2023 showed no evidence of intracranial metastatic disease. She received 1st cycle of cisplatin/etoposide on 09/23/2023. She was seen by radiation oncologist at [facility]. After reviewing her case in tumor board and finding of positive supraclavicular lymph node, decision was made to switch her to chemotherapy for extensive stage small cell lung cancer. She was started on carboplatin/etoposide with atezolizumab on 11/11/2023. She was on maintenance Atezolizumab every 3 weeks. PET-CT performed 06/07/24 unfortunately shows significant progression of disease involving right lung and extensive adenopathy. Topotecan was started in 06/23/2024 in the second-line setting. Patient developed serious and life-threatening cytopenias after 1st round of treatment in spite of growth factor support and dose reduction. She required twice a week transfusion of blood and platelets to support her through. On 07/11/24 Dr. James discussed risk of further treatment with patient including possibility of sooner than expected because of treatment rather than cancer. She was afraid to give up and feels that she would benefit from lower dose of treatment with close monitoring and transfusion support. Further dose reduction to 50% , administering Neulasta on day 5, and cutting down number of days of treatment to 4 was also discussed. She understood that she may not have the desired benefit with this degree of dose reduction and still could suffer from serious side effects. Chest x-ray from 07/22 revealed: There is increased consolidation and volume loss throughout the right lung. There is somewhat masslike consolidation in the right perihilar region. A mass with postobstructive pneumonia and atelectasis is possible. CT would be helpful if not recently performed. There may be a right pleural effusion, but difficult to differentiate from the consolidation. Cardiac silhouette is partially obscured by the consolidation, but appears to be within normal limits in size. Left IJ port catheter tip is in the SVC. She is being treated with IV antibiotic. Her electrolytes are being corrected. The patient has finally agreed to hold off on further antitumor therapy. She is agreeable to palliative care and hospice. PLAN: I have requested hospice to come in and make an informational visit. They will be meeting with her tomorrow, This way patient can have a questions answered and will be able to sign up. Will also see what his best in terms of further care, at home versus institution. Her preference is to go home and take care of her affairs, then go to a [place] [facility] [place] facility. Discussed with Bella, she will make referrals. Meanwhile we can try a low dose of fentanyl patch for smoother pain control, since she is not tolerating the morphine too well. Thank you for the consult, I will follow along with you, CC: Dr. jenkins. - Time Spent With Patient Time Spent with Patient (in minutes): 30
[2024-07-23] MEDS: Sucralfate 1 GM TABLET 4 GM PO (12:46)
[2024-07-23] MEDS: Nicotine 14 MG PATCH.TD24 TRANSDERMA (12:46)
[2024-07-23] MEDS: fentaNYL 12 MCG PATCH.TD72 TRANSDERMA (12:52)
[2024-07-23] MEDS: Urea 15 GM POWDER 30 GM PO (12:52)
[2024-07-23] MEDS: ondansetron HCL 4 MG/2 ML VIAL IVPUSH (14:05)
[2024-07-23] MEDS: Metoclopramide HCl 5 MG TABLET PO (16:43)
[2024-07-23] MEDS: Pantoprazole Sodium 40 MG/10 ML VIAL IVPUSH (16:43)
[2024-07-23] MEDS: Acetaminophen 325 MG TABLET 650 MG PO (16:43)
[2024-07-23 17:42] LABS: Osmolality Urine 366 mosm/kg (373-1093)
[2024-07-23 18:44] LABS: Anion Gap 13 (12-20); Blood Urea Nitrogen 11 mg/dL (9-16); Calcium 8.7 mg/dL (8.4-10.2); Carbon Dioxide 25 mmol/L (22-29); Chloride 88 mmol/L (96-108); Creatinine Clr Calc Pharmacy 83.6; Estimated Glomerular Filt Rate > 60; Glucose Random 103 mg/dL (60-115); Potassium 3.1 mmol/L (3.3-5.1); Sodium 123 mmol/L (135-145)
[2024-07-23] MEDS: hydrOXYzine HCL 50 MG TABLET PO (21:06)
[2024-07-23] MEDS: Mirtazapine 30 MG TABLET PO (21:06)
[2024-07-23] MEDS: cefTRIAXone sodium 1 GM VIAL IVPUSH (23:00)
[2024-07-24] VITALS (9 sets, daily range): BP systolic 127–164; BP diastolic 84–88; PULSE 64–98; RESP 15–20; TEMP 36.3–37.1; O2SAT 96–99; BMI 14.5
[2024-07-24] MEDS: LORazepam 0.5 MG TABLET PO ×4 (02:55→18:20)
[2024-07-24] MEDS: Acetaminophen 325 MG TABLET 650 MG PO ×2 (02:59→15:36)
[2024-07-24] MEDS: oxyCODONE HCl Immed Release 5 MG TABLET PO ×5 (05:12→23:00)
[2024-07-24] MEDS: Pantoprazole Sodium 40 MG/10 ML VIAL IVPUSH ×2 (05:13→15:36)
[2024-07-24 07:44] LABS: Hematocrit 37.2 % (37.0-47.0); Hemoglobin 13.4 g/dl (12.0-16.0); Mean Corpuscular Hemoglobin 31.7 pg (27.0-33.0); Mean Corpuscular Volume 87.9 fL (80.0-98.0); Mean Platelet Volume 9.2 fL (9.4-12.3); Red Blood Count 4.23 X10*6/uL (4.20-5.50); Red Cell Distribution Width 15.6 % (11.0-16.0); White Blood Count 20.7 X10*3/uL (4.8-10.8)
[2024-07-24 07:47] LABS: Platelet Count 60 X10*3/uL (160-400)
[2024-07-24] MEDS: Fluticasone Propionate Nasal 16 GM SPRAY 1 SPRAY NOSTRIL-B (07:56)
[2024-07-24] MEDS: Metoclopramide HCl 5 MG TABLET PO ×3 (07:56→15:36)
[2024-07-24 07:58] LABS: Anion Gap 14 (12-20); Blood Urea Nitrogen 9 mg/dL (9-16); Carbon Dioxide 25 mmol/L (22-29); Chloride 89 mmol/L (96-108); Creatinine Clr Calc Pharmacy 67.2; Estimated Glomerular Filt Rate > 60; Glucose Random 94 mg/dL (60-115); Potassium 3.7 mmol/L (3.3-5.1); Sodium 124 mmol/L (135-145)
[2024-07-24 08:09] LABS: Band Neutrophils Percent 1 % (3-5); Lymphocytes Absolute Manual 0.4 X10*3/uL (1.2-4.9); Lymphocytes Percent Manual 2 % (20-40); Monocytes Absolute Manual 0.8 X10*3/uL (0.1-1.2); Monocytes Percent Manual 4 % (2-11); Neutrophils Absolute Manual 19.5 X10*3/uL (2.0-8.3); Neutrophils Percent Manual 93 % (45-73)
[2024-07-24 08:10] LABS: Platelet Estimate DECREASED (NORMAL); Platelet Morphology Comment NORMAL; RBC Morphology NORMAL; Toxic Vacuolation PRESENT
[2024-07-24] MEDS: Tiotropium Bromide 2.5 mcg 1 PUFF/2.5 MCG MIST.INHAL INHALE (08:43)
[2024-07-24] MEDS: Albuterol/Iprat 2.5/0.5MG 3 ML AMPUL.NEB INHALE ×4 (08:44→19:41)
[2024-07-24] MEDS: Sodium Chloride Tab 1 GM TABLET PO (10:59)
[2024-07-24] MEDS: Nicotine 14 MG PATCH.TD24 TRANSDERMA (11:02)
[2024-07-24] MEDS: Sucralfate 1 GM TABLET 4 GM PO (11:05)
--- NOTE | 2024-07-24 14:22 | HO.PM.IMPN ---
Subjective Subjective Date of Service: 07/24/24 Interval History: seen and evaluated Feels little better Na at 124 this morning no fever or chills no other events Review of Systems Review of Systems: Yes all other systems are reviewed and are negative Physical Exam Vital Signs: Vital Signs: Last Vital Signs Temp 98.8 F 07/24/24 10:48 Pulse 64 07/24/24 11:49 Resp 18 07/24/24 11:49 BP 137/86 07/24/24 10:48 Pulse Ox 98 07/24/24 10:48 O2 Del Method Nasal Cannula 07/24/24 10:48 O2 Flow Rate 2 07/24/24 10:48 Oxygen Flow Rate 5 07/22/24 20:45 BMI result Body Mass Index 14.5 Const: Other: Constitutional : interactive, not in distress, looks frail Cardiovascular : no JVP, no lower extremity edema Respiratory : bilateral chest movement, not in resp distress , basal crackles , OPn O2 supplement Gastrointestinal: soft, lax, Non tender Skin : Warm, Dry Neurological : Alert & oriented , No focal deficit Objective Data Active Medications Acetaminophen (Acetaminophen 325 Mg Tablet) 650 mg PO Q6H PRN PRN Reason: Pain, Mild 1-3,fever,headache Last Admin: 07/24/24 02:59 Dose: 650 mg Documented By: DILCIA Albuterol/Ipratropium (Albuterol/Iprat 2.5/0.5mg 3 Ml Ampul.Neb) 3 ml INHALE RQ4H WHILE AWAKE [facility] Last Admin: 07/24/24 11:49 Dose: 3 ml Documented By: JEN Benzonatate (Benzonatate 100 Mg Capsule) 100 mg PO TID PRN PRN Reason: Cough Calcium Carbonate (Calcium Carbonate 750 Mg Tab.Chew) 750 mg PO Q4H PRN PRN Reason: Heartburn Last Admin: 07/23/24 11:00 Dose: 750 mg Documented By: KARLO Ceftriaxone Sodium (Ceftriaxone Sodium 1 Gm Vial) 1 gm IVPUSH Q24H [facility] Last Admin: 07/23/24 23:00 Dose: 1 gm Documented By: ANKUR Diphenoxylate HCl/Atropine (Diphenoxylate/Atrop 2.5/0.025 Tablet) 1 tab PO BID PRN PRN Reason: Diarrhea Fentanyl (Fentanyl 12 Mcg Patch.Td72) 12 mcg TRANSDERMA Q72H [facility] Last Admin: 07/23/24 12:52 Dose: 12 mcg Documented By: KARLO Fluticasone Propionate (Fluticasone Propionate Nasal 16 Gm [place]) 1 spray NOSTRIL-B DAILY [facility] Last Admin: 07/24/24 07:56 Dose: 1 spray Documented By: MATHEW Hydroxyzine HCl (Hydroxyzine Hcl 50 Mg Tablet) 50 mg PO BEDTIME [facility] Last Admin: 07/23/24 21:06 Dose: 50 mg Documented By: ANKUR Azithromycin 500 mg/ Sodium (Chloride) 250 mls @ 125 mls/hr IV Q24H [facility] Last Infusion: 07/24/24 01:46 Dose: Infused Documented By: ANKUR Lorazepam (Lorazepam 0.5 Mg Tablet) 0.5 mg PO Q4H PRN PRN Reason: anxiety/restlessness Last Admin: 07/24/24 13:18 Dose: 0.5 mg Documented By: MATHEW Magnesium Hydroxide (Milk Of Magnesia 30 Ml Oral.Susp) 30 ml PO DAILY PRN PRN Reason: Constipation Melatonin (Melatonin 3 Mg Tablet) 6 mg PO BEDTIME PRN PRN Reason: Insomnia Metoclopramide HCl (Metoclopramide Hcl 5 Mg Tablet) 5 mg PO TIDAC [facility] Last Admin: 07/24/24 10:59 Dose: 5 mg Documented By: MATHEW Mirtazapine (Mirtazapine 30 Mg Tablet) 30 mg PO BEDTIME [facility] Last Admin: 07/23/24 21:06 Dose: 30 mg Documented By: ANKUR Morphine Sulfate (Morphine Sulfate 2 Mg/Ml Cartridge) 2 mg IVPUSH Q3H PRN; Protocol PRN Reason: Pain, Severe (Pain Scale 7-10) Nicotine (Nicotine 14 Mg Patch.Td24) 14 mg TRANSDERMA Q24H [facility] Last Admin: 07/24/24 11:02 Dose: 14 mg Documented By: MATHEW Ondansetron HCl (Ondansetron Hcl 4 Mg/2 Ml Vial) 4 mg IVPUSH Q8H PRN PRN Reason: Nausea and Vomiting Last Admin: 07/23/24 14:05 Dose: 4 mg Documented By: KARLO Oxycodone HCl (Oxycodone Hcl Immed Release 5 Mg Tablet) 5 mg PO Q6H PRN PRN Reason: Pain, Moderate(Pain Scale 4-6) Last Admin: 07/24/24 13:18 Dose: 5 mg Documented By: MATHEW Oxycodone HCl (Oxycodone Hcl Immed Release 5 Mg Tablet) 5 mg PO Q4H PRN PRN Reason: Pain, Moderate(Pain Scale 4-6) Last Admin: 07/24/24 11:02 Dose: 5 mg Documented By: MATHEW Pantoprazole Sodium (Pantoprazole Sodium 40 Mg/10 Ml Vial) 40 mg IVPUSH BID@0630,1630 [facility] Last Admin: 07/24/24 05:13 Dose: 40 mg Documented By: ANKUR Sodium Chloride (0.9 % Sodium Chloride Flush 3 Ml Syringe) 3 ml IVFLUSH QSHIFT [facility] Last Admin: 07/24/24 07:58 Dose: Not Given Documented By: MATHEW Non-Admin Reason: Previously Administered Sodium Chloride (Sodium Chloride Tab 1 Gm Tablet) 1 gm PO TID [facility] Last Admin: 07/24/24 10:59 Dose: 1 gm Documented By: MATHEW Sucralfate (Sucralfate 1 Gm Tablet) 4 gm PO DAILY@1200 [facility] Last Admin: 07/24/24 11:05 Dose: 2 gm Documented By: MATHEW Comments: patient refused to take the 4 tablets. Saying she only takes 2 tablets. Tiotropium [place] (Tiotropium [place] 2.5 Mcg 1 Puff/2.5 Mcg Mist.Inhal) 1 puff INHALE RDAILY [facility] Last Admin: 07/24/24 08:43 Dose: 1 puff Documented By: JEN Urea (Urea 15 Gm Powder) 30 gm PO BID [facility] Last Admin: 07/24/24 11:07 Dose: Not Given Documented By: MATHEW Non-Admin Reason: Patient Refused Labs 07/24/24 06:57 07/24/24 06:57 Labs: Laboratory Results - last 24 hr 07/23/24 07/23/24 07/23/24 12:40 16:14 17:56 MCV MCH MCHC RDW Plt Count MPV Immature Gran % (Auto) Neut % (Auto) Lymph % (Auto) [place] % (Auto) Eos % (Auto) Baso % (Auto) Lymph # (Auto) [place] # (Auto) Eos # (Auto) Baso # (Auto) Abs Immat Gran (auto) Absolute Neuts (auto) Absolute Nucleated RBC Nucleated RBC % (auto) Neutrophils % (Manual) Band Neutrophils % Lymphocytes % (Manual) Monocytes % (Manual) Abs Neuts (Manual) Lymphocytes # (Manual) Monocytes # (Manual) Toxic Vacuolation Platelet Estimate Plt Morphology Comment RBC Morphology Anion Gap 13 Estim Creat Clear Calc 83.6 Estimated GFR > 60 Random Glucose 103 Calcium 8.7 D Urine Osmolality 366 L Ur Random Sodium 77.0 Blood Type B Positive Antibody Screen NEGATIVE Crossmatch ([facility]) See Detail 07/24/24 06:57 MCV 87.9 MCH 31.7 MCHC 36.0 H RDW 15.6 Plt Count 60 L MPV 9.2 L Immature Gran % (Auto) Cancelled Neut % (Auto) Cancelled Lymph % (Auto) Cancelled [place] % (Auto) Cancelled Eos % (Auto) Cancelled Baso % (Auto) Cancelled Lymph # (Auto) Cancelled [place] # (Auto) Cancelled Eos # (Auto) Cancelled Baso # (Auto) Cancelled Abs Immat Gran (auto) Cancelled Absolute Neuts (auto) Cancelled Absolute Nucleated RBC 0.000 Nucleated RBC % (auto) 0.0 Neutrophils % (Manual) 93 H Band Neutrophils % 1 L Lymphocytes % (Manual) 2 L Monocytes % (Manual) 4 Abs Neuts (Manual) 19.5 H Lymphocytes # (Manual) 0.4 L Monocytes # (Manual) 0.8 Toxic Vacuolation PRESENT Platelet Estimate DECREASED Plt Morphology Comment NORMAL RBC Morphology NORMAL Anion Gap 14 Estim Creat Clear Calc 67.2 Estimated GFR > 60 Random Glucose 94 Calcium 9.0 Urine Osmolality Ur Random Sodium Blood Type Antibody Screen Crossmatch ([facility]) Microbiology Microbiology Results: Microbiology 07/22/24 00:15 Blood Culture - Preliminary Blood - Venous No growth after 24 hours. 07/22/24 00:15 Blood Culture - Preliminary Blood - Venous No growth after 24 hours. Assessment and Plan (1) Pneumonia: Status: Acute (2) Acute hypokalemia: Status: Acute (3) Respiratory failure with hypoxia: Status: Acute (4) Symptomatic anemia: Status: Acute (5) Acute hyponatremia: Status: Acute Plan Patient is a 63-year-old female with past medical history of small-cell lung cancer on chemotherapy since September of 2023, depression and anxiety, COPD/tobacco dependence history, hepatitis-C, IV drug abuse, hypertension, hyperlipidemia, GERD, IBS-D, prolapsed rectum is seen in the ED for dizziness, nausea and right-sided thoracic pain. Patient had made the decision to stop chemotherapy and is being referred to hospice. Family is unable to care for the patient at home. 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 Ativan for nausea and anxiety, morphine IV for severe pain, oxycodone for moderate pain, Zofran for nausea DVT prophylaxis: Lovenox DNR\DNI; Patient will require inpatient admission for acute hypoxic respiratory failure, low sodium level with need for hospice care consultation as family can no longer care for patient at home considering her cancer is progressing and patient has decided to stop chemotherapy. Expert consultation with hospice care and Oncology Quality Stroke Does the patient have a stroke diagnosis?: No Reason for No Anti-thrombotic by Day Two: N/A - Med Ordered VTE Prior VTE?: No VTE Risk Level:: Medical - moderate - high VTE Device Contraindication: Treatment Not Tolerated VTE Drug Contraindication: N/A - Med Ordered
[2024-07-24 14:40] LABS: Anion Gap 15 (12-20); Blood Urea Nitrogen 9 mg/dL (9-16); Calcium 8.8 mg/dL (8.4-10.2); Carbon Dioxide 21 mmol/L (22-29); Chloride 92 mmol/L (96-108); Creatinine Clr Calc Pharmacy 63.3; Estimated Glomerular Filt Rate > 60; Glucose Random 105 mg/dL (60-115); Potassium 3.1 mmol/L (3.3-5.1); Sodium 125 mmol/L (135-145)
[2024-07-24] MEDS: Sodium Chloride Tab 1 GM TABLET 2 GM PO ×2 (15:36→21:30)
[2024-07-24] MEDS: Urea 15 GM POWDER 30 GM PO (21:30)
[2024-07-24] MEDS: hydrOXYzine HCL 50 MG TABLET PO (21:30)
[2024-07-24] MEDS: Mirtazapine 30 MG TABLET PO (21:30)
[2024-07-24] MEDS: 0.9 % Sodium Chloride Flush 3 ML SYRINGE IVFLUSH (21:31)
[2024-07-24] MEDS: Azithromycin 500 MG in 0.9 % Sodium Chloride 250 ML 125 MG IV (22:39)
[2024-07-24] MEDS: cefTRIAXone sodium 1 GM VIAL IVPUSH (22:39)
[2024-07-25] VITALS (12 sets, daily range): BP systolic 136–170; BP diastolic 66–81; PULSE 76–107; RESP 16–20; TEMP 36.2–37; O2SAT 95–100; BMI 14.5
[2024-07-25] MEDS: LORazepam 0.5 MG TABLET PO ×4 (00:07→23:16)
[2024-07-25] MEDS: Pantoprazole Sodium 40 MG/10 ML VIAL IVPUSH ×2 (05:39→15:52)
[2024-07-25] MEDS: oxyCODONE HCl Immed Release 5 MG TABLET PO ×4 (05:39→19:41)
[2024-07-25] MEDS: Sodium Chloride Tab 1 GM TABLET 2 GM PO ×3 (06:53→19:40)
[2024-07-25] MEDS: Metoclopramide HCl 5 MG TABLET PO ×3 (06:53→15:52)
[2024-07-25] MEDS: 0.9 % Sodium Chloride Flush 3 ML SYRINGE IVFLUSH ×2 (06:59→15:52)
--- NOTE | 2024-07-25 07:05 | PC.NURSE ---
Patient refused scheduled Urea stating that she will vomit it back up. Reglan was administered and education was given regarding importance of medication. Patient still refused and stated she will not take it. Sodium tablets taken without issue
[2024-07-25 07:26] LABS: Hematocrit 36.6 % (37.0-47.0); Hemoglobin 13.1 g/dl (12.0-16.0); Mean Corpuscular HGB Conc 35.8 g/dl (31.0-35.0); Mean Corpuscular Hemoglobin 30.9 pg (27.0-33.0); Mean Corpuscular Volume 86.3 fL (80.0-98.0); Mean Platelet Volume 9.1 fL (9.4-12.3); Red Blood Count 4.24 X10*6/uL (4.20-5.50); Red Cell Distribution Width 15.3 % (11.0-16.0); White Blood Count 13.6 X10*3/uL (4.8-10.8)
[2024-07-25 07:28] LABS: Platelet Count 42 X10*3/uL (160-400)
[2024-07-25] MEDS: Albuterol/Iprat 2.5/0.5MG 3 ML AMPUL.NEB INHALE ×4 (07:40→19:16)
[2024-07-25 07:45] LABS: Band Neutrophils Percent 9 % (3-5); Basophils Abs Manual 0.1 X10*3/uL (0.0-0.2); Basophils Percent Manual 1 % (0-2); Lymphocytes Absolute Manual 0.4 X10*3/uL (1.2-4.9); Lymphocytes Percent Manual 3 % (20-40); Metamyelocytes Absolute 0.1 X10*3/uL; Metamyelocytes Percent 1 %; Neutrophils Absolute Manual 12.9 X10*3/uL (2.0-8.3); Neutrophils Percent Manual 86 % (45-73)
[2024-07-25 07:46] LABS: Platelet Estimate DECREASED (NORMAL); Platelet Morphology Comment NORMAL; RBC Morphology NORMAL
[2024-07-25 07:47] LABS: Toxic Vacuolation PRESENT
[2024-07-25 07:49] LABS: Blood Urea Nitrogen 9 mg/dL (9-16); Calcium 8.7 mg/dL (8.4-10.2); Creatinine Clr Calc Pharmacy 73.4; Estimated Glomerular Filt Rate > 60; Glucose Random 101 mg/dL (60-115)
[2024-07-25] MEDS: Tiotropium Bromide 2.5 mcg 1 PUFF/2.5 MCG MIST.INHAL INHALE (07:52)
[2024-07-25 08:08] LABS: Anion Gap 13 (12-20); Carbon Dioxide 27 mmol/L (22-29); Chloride 93 mmol/L (96-108); Potassium 2.5 mmol/L (3.3-5.1); Sodium 130 mmol/L (135-145)
[2024-07-25] MEDS: Potassium Chloride Packet 20 MEQ PACKET 40 MEQ PO ×2 (08:24→09:49)
[2024-07-25] MEDS: Potassium Chloride/H20 10 MEQ/100 ML PIGGYBACK 100 MEQ IV ×2 (08:28→09:49)
--- NOTE | 2024-07-25 09:36 | MHC.CM.PN ---
CM met with patient to discuss dc planning. Patient declines hospice at this time. Would like to go to SNF, but wants to go home for 1-2 days first. Per [facility] they can work w/ [facility] to admit from home under senior living. Per MD not medically cleared for dc at this time, likely tomorrow. Update sent to [facility]. CM will continue to follow.
--- NOTE | 2024-07-25 09:36 | HO.PM.IMPN ---
Subjective Subjective Date of Service: 07/25/24 Interval History: seen and evaluated Feels little better Na improved to 130 this morning K dropped to 2.6 no fever or chills no other events Review of Systems Review of Systems: Yes all other systems are reviewed and are negative Physical Exam Vital Signs: Vital Signs: Last Vital Signs Temp 97.8 F 07/25/24 07:21 Pulse 95 07/25/24 07:43 Resp 16 07/25/24 07:43 BP 158/70 H 07/25/24 07:21 Pulse Ox 97 07/25/24 07:21 O2 Del Method Room Air 07/25/24 07:21 O2 Flow Rate 2 07/25/24 03:39 Oxygen Flow Rate 5 07/22/24 20:45 BMI result Body Mass Index 14.5 Const: Other: Constitutional : interactive, not in distress, looks frail Cardiovascular : no JVP, no lower extremity edema Respiratory : bilateral chest movement, not in resp distress , basal crackles , On O2 supplement Gastrointestinal: soft, lax, Non tender Skin : Warm, Dry Neurological : Alert & oriented , No focal deficit Objective Data Active Medications Acetaminophen (Acetaminophen 325 Mg Tablet) 650 mg PO Q6H PRN PRN Reason: Pain, Mild 1-3,fever,headache Last Admin: 07/24/24 15:36 Dose: 650 mg Documented By: MATHEW Albuterol/Ipratropium (Albuterol/Iprat 2.5/0.5mg 3 Ml Ampul.Neb) 3 ml INHALE RQ4H WHILE AWAKE [facility] Last Admin: 07/25/24 07:40 Dose: 3 ml Documented By: LUCIUS Benzonatate (Benzonatate 100 Mg Capsule) 100 mg PO TID PRN PRN Reason: Cough Calcium Carbonate (Calcium Carbonate 750 Mg Tab.Chew) 750 mg PO Q4H PRN PRN Reason: Heartburn Last Admin: 07/23/24 11:00 Dose: 750 mg Documented By: KARLO Ceftriaxone Sodium (Ceftriaxone Sodium 1 Gm Vial) 1 gm IVPUSH Q24H [facility] Last Admin: 07/24/24 22:39 Dose: 1 gm Documented By: ANKUR Diphenoxylate HCl/Atropine (Diphenoxylate/Atrop 2.5/0.025 Tablet) 1 tab PO BID PRN PRN Reason: Diarrhea Fentanyl (Fentanyl 12 Mcg Patch.Td72) 12 mcg TRANSDERMA Q72H [facility] Last Admin: 07/23/24 12:52 Dose: 12 mcg Documented By: KARLO Fluticasone Propionate (Fluticasone Propionate Nasal 16 Gm [place]) 1 spray NOSTRIL-B DAILY [facility] Last Admin: 07/24/24 07:56 Dose: 1 spray Documented By: MATHEW Hydroxyzine HCl (Hydroxyzine Hcl 50 Mg Tablet) 50 mg PO BEDTIME [facility] Last Admin: 07/24/24 21:30 Dose: 50 mg Documented By: ANKUR Azithromycin 500 mg/ Sodium (Chloride) 250 mls @ 125 mls/hr IV Q24H [facility] Last Infusion: 07/25/24 00:39 Dose: Infused Documented By: ABDIFATAH Potassium Chloride (Potassium Chloride/H20) 10 meq in 100 mls @ 100 mls/hr IV Q1H [facility] Stop: 07/25/24 10:14 Last Infusion: 07/25/24 09:32 Dose: Infused Documented By: TRACI Lorazepam (Lorazepam 0.5 Mg Tablet) 0.5 mg PO Q4H PRN PRN Reason: anxiety/restlessness Last Admin: 07/25/24 06:53 Dose: 0.5 mg Documented By: TRACI Magnesium Hydroxide (Milk Of Magnesia 30 Ml Oral.Susp) 30 ml PO DAILY PRN PRN Reason: Constipation Melatonin (Melatonin 3 Mg Tablet) 6 mg PO BEDTIME PRN PRN Reason: Insomnia Metoclopramide HCl (Metoclopramide Hcl 5 Mg Tablet) 5 mg PO TIDAC [facility] Last Admin: 07/25/24 06:53 Dose: 5 mg Documented By: TRACI Mirtazapine (Mirtazapine 30 Mg Tablet) 30 mg PO BEDTIME [facility] Last Admin: 07/24/24 21:30 Dose: 30 mg Documented By: ANKUR Morphine Sulfate (Morphine Sulfate 2 Mg/Ml Cartridge) 2 mg IVPUSH Q3H PRN; Protocol PRN Reason: Pain, Severe (Pain Scale 7-10) Nicotine (Nicotine 14 Mg Patch.Td24) 14 mg TRANSDERMA Q24H [facility] Last Admin: 07/24/24 11:02 Dose: 14 mg Documented By: MATHEW Ondansetron HCl (Ondansetron Hcl 4 Mg/2 Ml Vial) 4 mg IVPUSH Q8H PRN PRN Reason: Nausea and Vomiting Last Admin: 07/23/24 14:05 Dose: 4 mg Documented By: KARLO Oxycodone HCl (Oxycodone Hcl Immed Release 5 Mg Tablet) 5 mg PO Q6H PRN PRN Reason: Pain, Moderate(Pain Scale 4-6) Last Admin: 07/25/24 05:39 Dose: 5 mg Documented By: ABDIFATAH Oxycodone HCl (Oxycodone Hcl Immed Release 5 Mg Tablet) 5 mg PO Q4H PRN PRN Reason: Pain, Moderate(Pain Scale 4-6) Last Admin: 07/25/24 09:01 Dose: 5 mg Documented By: ANDRY Pantoprazole Sodium (Pantoprazole Sodium 40 Mg/10 Ml Vial) 40 mg IVPUSH BID@0630,1630 [facility] Last Admin: 07/25/24 05:39 Dose: 40 mg Documented By: ABDIFATAH Potassium Chloride (Potassium Chloride Packet 20 Meq Packet) 40 meq PO Q2H [facility] Stop: 07/25/24 10:16 Last Admin: 07/25/24 08:24 Dose: 40 meq Documented By: TRACI Sodium Chloride (0.9 % Sodium Chloride Flush 3 Ml Syringe) 3 ml IVFLUSH QSHIFT [facility] Last Admin: 07/25/24 06:59 Dose: 3 ml Documented By: TRACI Sodium Chloride (Sodium Chloride Tab 1 Gm Tablet) 2 gm PO TID [facility] Last Admin: 07/25/24 06:53 Dose: 2 gm Documented By: TRACI Sucralfate (Sucralfate 1 Gm Tablet) 4 gm PO DAILY@1200 [facility] Last Admin: 07/24/24 11:05 Dose: 2 gm Documented By: MATHEW Comments: patient refused to take the 4 tablets. Saying she only takes 2 tablets. Tiotropium [place] (Tiotropium [place] 2.5 Mcg 1 Puff/2.5 Mcg Mist.Inhal) 1 puff INHALE RDAILY [facility] Last Admin: 07/25/24 07:52 Dose: 1 puff Documented By: LUCIUS Urea (Urea 15 Gm Powder) 30 gm PO BID [facility] Last Admin: 07/25/24 06:57 Dose: Not Given Documented By: TRACI Non-Admin Reason: Patient Refused Labs 07/25/24 07:04 07/25/24 07:04 Labs: Laboratory Results - last 24 hr 07/24/24 07/25/24 13:57 07:04 MCV 86.3 MCH 30.9 MCHC 35.8 H RDW 15.3 Plt Count 42 L D MPV 9.1 L Immature Gran % (Auto) Cancelled Neut % (Auto) Cancelled Lymph % (Auto) Cancelled [place] % (Auto) Cancelled Eos % (Auto) Cancelled Baso % (Auto) Cancelled Lymph # (Auto) Cancelled [place] # (Auto) Cancelled Eos # (Auto) Cancelled Baso # (Auto) Cancelled Abs Immat Gran (auto) Cancelled Absolute Neuts (auto) Cancelled Absolute Nucleated RBC 0.000 Nucleated RBC % (auto) 0.0 Neutrophils % (Manual) 86 H Band Neutrophils % 9 H Lymphocytes % (Manual) 3 L Basophils % (Manual) 1 Metamyelocytes % 1 Abs Neuts (Manual) 12.9 H Lymphocytes # (Manual) 0.4 L Basophils # (Manual) 0.1 Metamyelocytes # 0.1 Toxic Vacuolation PRESENT Platelet Estimate DECREASED Plt Morphology Comment NORMAL RBC Morphology NORMAL Anion Gap 15 13 Estim Creat Clear Calc 63.3 73.4 Estimated GFR > 60 > 60 Random Glucose 105 101 Calcium 8.8 8.7 Microbiology Microbiology Results: Microbiology 07/22/24 00:15 Blood Culture - Preliminary Blood - Venous No growth after 48 hours. 07/22/24 00:15 Blood Culture - Preliminary Blood - Venous No growth after 48 hours. Assessment and Plan (1) Acute hyponatremia: Status: Acute (2) Pneumonia: Status: Acute (3) Symptomatic anemia: Status: Acute (4) Acute hypokalemia: Status: Acute Plan Patient is a 63-year-old female with past medical history of small-cell lung cancer on chemotherapy since September of 2023, depression and anxiety, COPD/tobacco dependence history, hepatitis-C, IV drug abuse, hypertension, hyperlipidemia, GERD, IBS-D, prolapsed rectum is seen in the ED for dizziness, nausea and right-sided thoracic pain. Patient had made the decision to stop chemotherapy and is being referred to hospice. Family is unable to care for the patient at home. 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 given previous similar incidents dc URea and continue salt tabs Acute hypokalemia IV infusion with potassium, avoid oral supplementation as patient is nauseous follow BMP small-cell lung cancer spoke to hospice , she wants to hold on that decision for now Ativan for nausea and anxiety, morphine IV for severe pain, oxycodone for moderate pain, Zofran for nausea DVT prophylaxis: Lovenox DNR\DNI; Patient will require inpatient admission for acute hypoxic respiratory failure, low sodium level on IV antibiotics, replacement of electrolytes pending Quality Stroke Does the patient have a stroke diagnosis?: No Reason for No Anti-thrombotic by Day Two: N/A - Med Ordered VTE Prior VTE?: No VTE Risk Level:: Medical - moderate - high VTE Device Contraindication: Treatment Not Tolerated VTE Drug Contraindication: N/A - Med Ordered
--- NOTE | 2024-07-25 11:08 | MHC.CLN ---
Addendum entered by Ranjana Schroeder RD 07/25/24 11:54: SKIN WITH STAGE I PRESSURE INJURY TO COCCYX PER [employer] ATTENDANT. Original Note: NUTRITION DIET=REGULAR WITH 1500 ML FLUID RESTRICTION. QUALIFIES SEVERELY MALNOURISHED BASED ON SIGNIFICANT WEIGHT LOSS -39% X ONE YEAR AND SEVERE DEPLETION OF BODY FAT AND MUSCLE MASS. SKIN WITH OPEN AREA NOTED TO COCCYX. ADDING ENSURE TID TO PROMOTE NUTRITIONAL INTAKE. IF CONSUMED 100%, PROVIDES 1050 KCALS, 60 G PROTEIN, AND APPROXIMATELY 625 ML FREE WATER. FOLLOW FOR PO INTAKE, SKIN INTEGRITY AND PLAN OF CARE. SEE CLINICAL NUTRITION ASSESSMENT 07/25/24.
[2024-07-25 11:22] LABS: Magnesium 1.5 mg/dL (1.6-2.6)
[2024-07-25] MEDS: Nicotine 14 MG PATCH.TD24 TRANSDERMA (12:11)
[2024-07-25] MEDS: Sucralfate 1 GM TABLET 4 GM PO (12:13)
[2024-07-25 15:32] LABS: Anion Gap 12 (12-20); Blood Urea Nitrogen 8 mg/dL (9-16); Carbon Dioxide 25 mmol/L (22-29); Chloride 95 mmol/L (96-108); Creatinine Clr Calc Pharmacy 70.2; Estimated Glomerular Filt Rate > 60; Glucose Random 132 mg/dL (60-115); Potassium 3.9 mmol/L (3.3-5.1); Sodium 128 mmol/L (135-145)
--- NOTE | 2024-07-25 16:53 | PC.NURSE ---
Pt has a nicotine patch on right upper arm that has a written date of 07/23 on it. There are no active orders for a fantanyl patch and no visible discontinued orders. Md notified and aware
--- NOTE | 2024-07-25 17:07 | PC.NURSE ---
Pt has a fentanyl patch to right upper arm with a date of 07/23 but no orders and no discontinued orders observed. MD alerted and aware.
[2024-07-25] MEDS: Fluticasone Propionate Nasal 16 GM SPRAY 1 SPRAY NOSTRIL-B (19:35)
[2024-07-25] MEDS: Mirtazapine 30 MG TABLET PO (19:41)
[2024-07-25] MEDS: hydrOXYzine HCL 50 MG TABLET PO (19:41)
[2024-07-25] MEDS: Melatonin 3 MG TABLET 6 MG PO (23:16)
[2024-07-25] MEDS: cefTRIAXone sodium 1 GM VIAL IVPUSH (23:19)
[2024-07-25] MEDS: Azithromycin 500 MG in 0.9 % Sodium Chloride 250 ML 125 MG IV (23:31)
[2024-07-26] VITALS (8 sets, daily range): BP systolic 139–189; BP diastolic 73–100; PULSE 77–100; RESP 16–20; TEMP 36–36.6; O2SAT 90–100
[2024-07-26] MEDS: oxyCODONE HCl Immed Release 5 MG TABLET PO ×2 (03:58→08:07)
[2024-07-26] MEDS: LORazepam 0.5 MG TABLET PO ×2 (04:02→09:14)
[2024-07-26] MEDS: Pantoprazole Sodium 40 MG/10 ML VIAL IVPUSH (06:03)
[2024-07-26 06:12] LABS: Anion Gap 13 (12-20)
--- NOTE | 2024-07-26 07:21 | PM.HEMONCPN ---
Medical Summary - Medical Summary Date of Service: 07/26/24 Chief complaint: Feels tired Primary Care Provider: Sarthak Person MD Medical Summary: DIAGNOSIS: SMALL-CELL CARCINOMA OF THE LUNG. Grant Specialist Utilized?: No - Panamanian Speaking Interval History Interval history: Sarah Medina is a 63 year old lady, past medical history of small-cell lung cancer on chemotherapy since September of 2023. Patient's last chemotherapy treatment was Thursday and patient also received magnesium. She heard yesterday that she is dying from her Lung cancer. Since then patient has been having increasing shortness of breath, headache, dizziness, chest pain.Yesterday she started having nausea and vomiting. Patient denies that there was any blood in her emesis and patient is not coughing up any sputum. She uses oxygen at home, 3 L continuously. Current vitals are 133/84, pulse 89, respirations 20, temp 97.6 degrees, pulse ox 98% on 3 L nasal cannula. Patient had notified her nurse navigator that she no longer wanted to continue chemotherapy and also met with the oncologist, and there was an open discussion regarding plans for end of life care and hospice evaluation. Patient stated that hospice was going to come to her home on Thursday. Family is not able to care for the patient at home. Plan is for hospice consultation along with Oncology to develop plan for inpatient hospice admission at an available facility and to manage patient's symptoms including nausea and pain. A pneumonia was found on chest x-ray and pt will start antibiotics for noted pneumonia. MOLST was reviewed. After a lengthy discussion with education regarding the MOLST form, patient did decide to sign a DNR DNI but is not ready to sign for comfort measures at this time. Patient does not want artificial nutrition or dialysis but is willing to continue artificial hydration. In addition patient is having intermittent nausea with dry heaves and patient will receive Ativan 0.5 mg IV and she can have this every 4 hours as needed for nausea and/or anxiety. Patient also has Zofran ordered. Patient has morphine IV push 1 mg every 4 hours as needed for severe pain as patient reports an 8/10 in the right lower quadrant indicating pain from her lung and not from the abdomen per patient. In addition patient wants to continue to take her oxycodone even though she is having nausea and this can contribute to that, 5 mg every 4 hours as needed for moderate pain. Patient does not have excessive secretions so scopolamine patch is not indicated at this time as well as atropine drops. Patient received IV infusion with potassium as her potassium was 2.8 on arrival. Sodium also 124. Patient has poor venous access and we will do limited labs to follow sodium and potassium levels, unless mediport can be accessed. Renal function is stable. It should be noted that patient is alert and orientated x3, able to make decisions for herself at this time. Patient is struggling with the fact that her body is now compromised by her progressive cancer. Patient understands that there is no further treatment available for her cancer. Patient has lost excessive weight since starting chemotherapy and is now down to 33.8 kg with a BMI of 13.6. Supplemental protein shakes are ordered. Patient does try to eat and drink when she can and denies any issues with swallowing. Education provided to patient noting that as time moves forward patient may be sleeping more and awake less. Patient's appetite may also decline. Patient expressed understanding of the education provided. Patient understands that hospice will be coming by and they will have a discussion about further updating the MOLST to comfort measures, which again the patient is not ready to decide on at this time. Patient does have a healthcare proxy her daughter Yajaira. 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, vancomycin-resistant Facet arthritis of lumbar region 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 GERD (gastroesophageal reflux disease) History of hepatitis C IV drug user Lung mass Mass of right lung MDD (major depressive disorder), recurrent episode, moderate Mitral regurgitation Mitral valve prolapse Nicotine dependence, cigarettes, uncomplicated Nonrheumatic mitral (valve) insufficiency Osteopenia Onset Date: ~2011 Paresthesia of left leg Pulmonary nodule Pure hypercholesterolemia Rectal prolapse Respiratory failure with hypoxia Small cell lung cancer Onset Date: ~08/2023 Small cell lung cancer Small cell lung cancer Vitamin D deficiency Family History: Family History (Last Reviewed 07/22/24 @ 23:38 by CECY Valdovinos) Father Internal bleeding Mother Medical history unknown Surgical History: Surgical History (Last Reviewed 07/25/24 @ 13:30 by Gema Barksdale, PT) History of bronchoscopy Onset Date: ~2023 History of colonoscopy Onset Date: ~2017 History of hysteroscopy Onset Date: ~2010 History of liver biopsy Onset Date: ~2009 History of partial colectomy Onset Date: ~2014 Social History: Social History (Last Reviewed 07/22/24 @ 23:38 by JACKY Valdovinos-) Living Situation History: Household Members: None Household Members Other:: DAUGHTER LIVES DOWNSTAIRS IN TWO BEDROOM HOME Housing: House Housing Other:: lives alone with her cat Malena Are you a primary day care center director to a significant other at home: No Do you presently have visiting nurse or other home services: Yes Tobacco History: Patient Tobacco Use Status: Current everyday Tobacco Tobacco use type: Cigarette Cigarette Packs Per Day: 0.25 Years Smoked: 45 e-Cigarette/Vaping Use: Never Used Second Hand Smoke Exposure: No Substance Use History: Substance Use Type: Marijuana Advance Directives: Advance Directives Date on File: 09/23/23 Occupation Assessmet: service: No Current occupational status: unemployed Sex/Gender Assessment: Sexual orientation: Straight/Heterosexual Gender identity: Female - Travel History Ebola Risk: Travel/Contact With Anyone From Affected Area/s: No Has Patient Experienced Ebola Symptoms: No Home Medications and Allergies Current Medications: Current Medications Acetaminophen (Acetaminophen 325 Mg Tablet) 650 mg PO Q6H PRN PRN Reason: Pain, Mild 1-3,fever,headache Last Admin: 07/24/24 15:36 Dose: 650 mg Albuterol/Ipratropium (Albuterol/Iprat 2.5/0.5mg 3 Ml Ampul.Neb) 3 ml INHALE RQ4H WHILE AWAKE [facility] Last Admin: 07/25/24 19:16 Dose: 3 ml Benzonatate (Benzonatate 100 Mg Capsule) 100 mg PO TID PRN PRN Reason: Cough Calcium Carbonate (Calcium Carbonate 750 Mg Tab.Chew) 750 mg PO Q4H PRN PRN Reason: Heartburn Last Admin: 07/23/24 11:00 Dose: 750 mg Ceftriaxone Sodium (Ceftriaxone Sodium 1 Gm Vial) 1 gm IVPUSH Q24H [facility] Last Admin: 07/25/24 23:19 Dose: 1 gm Diphenoxylate HCl/Atropine (Diphenoxylate/Atrop 2.5/0.025 Tablet) 1 tab PO BID PRN PRN Reason: Diarrhea Fentanyl (Fentanyl 12 Mcg Patch.Td72) 12 mcg TRANSDERMA Q72H [facility] Last Admin: 07/23/24 12:52 Dose: 12 mcg Fluticasone Propionate (Fluticasone Propionate Nasal 16 Gm [place]) 1 spray NOSTRIL-B DAILY [facility] Last Admin: 07/25/24 19:35 Dose: 1 spray Hydroxyzine HCl (Hydroxyzine Hcl 50 Mg Tablet) 50 mg PO BEDTIME [facility] Last Admin: 07/25/24 19:41 Dose: 50 mg Azithromycin 500 mg/ Sodium (Chloride) 250 mls @ 125 mls/hr IV Q24H [facility] Last Infusion: 07/26/24 01:32 Dose: Infused Lorazepam (Lorazepam 0.5 Mg Tablet) 0.5 mg PO Q4H PRN PRN Reason: anxiety/restlessness Last Admin: 07/26/24 04:02 Dose: 0.5 mg Magnesium Hydroxide (Milk Of Magnesia 30 Ml Oral.Susp) 30 ml PO DAILY PRN PRN Reason: Constipation Melatonin (Melatonin 3 Mg Tablet) 6 mg PO BEDTIME PRN PRN Reason: Insomnia Last Admin: 07/25/24 23:16 Dose: 6 mg Metoclopramide HCl (Metoclopramide Hcl 5 Mg Tablet) 5 mg PO TIDAC [facility] Last Admin: 07/25/24 15:52 Dose: 5 mg Mirtazapine (Mirtazapine 30 Mg Tablet) 30 mg PO BEDTIME [facility] Last Admin: 07/25/24 19:41 Dose: 30 mg Morphine Sulfate (Morphine Sulfate 2 Mg/Ml Cartridge) 2 mg IVPUSH Q3H PRN; Protocol PRN Reason: Pain, Severe (Pain Scale 7-10) Nicotine (Nicotine 14 Mg Patch.Td24) 14 mg TRANSDERMA Q24H [facility] Last Admin: 07/25/24 12:11 Dose: 14 mg Ondansetron HCl (Ondansetron Hcl 4 Mg/2 Ml Vial) 4 mg IVPUSH Q8H PRN PRN Reason: Nausea and Vomiting Last Admin: 07/23/24 14:05 Dose: 4 mg Oxycodone HCl (Oxycodone Hcl Immed Release 5 Mg Tablet) 5 mg PO Q6H PRN PRN Reason: Pain, Moderate(Pain Scale 4-6) Last Admin: 07/26/24 03:58 Dose: 5 mg Oxycodone HCl (Oxycodone Hcl Immed Release 5 Mg Tablet) 5 mg PO Q4H PRN PRN Reason: Pain, Moderate(Pain Scale 4-6) Last Admin: 07/25/24 14:52 Dose: 5 mg Pantoprazole Sodium (Pantoprazole Sodium 40 Mg/10 Ml Vial) 40 mg IVPUSH BID@0630,1630 [facility] Last Admin: 07/26/24 06:03 Dose: 40 mg Sodium Chloride (0.9 % Sodium Chloride Flush 3 Ml Syringe) 3 ml IVFLUSH QSHIFT [facility] Last Admin: 07/26/24 00:40 Dose: Not Given Sodium Chloride (Sodium Chloride Tab 1 Gm Tablet) 2 gm PO TID [facility] Last Admin: 07/25/24 19:40 Dose: 2 gm Sucralfate (Sucralfate 1 Gm Tablet) 4 gm PO DAILY@1200 [facility] Last Admin: 07/25/24 12:13 Dose: 2 gm Tiotropium [place] (Tiotropium [place] 2.5 Mcg 1 Puff/2.5 Mcg Mist.Inhal) 1 puff INHALE RDAILY [facility] Last Admin: 07/25/24 07:52 Dose: 1 puff Home Medications ?Medication ?Instructions ?Recorded ?Confirmed ?Type potassium chloride 20 mEq 20 meq PO BID 07/21/24 07/23/24 History tablet,extended release hydrocortisone 2.5 % topical cream 1 appl [place] BID PRN Hemorrhoids 07/23/24 07/23/24 History with perineal applicator (Proctozone-HC) Allergies Allergy/AdvReac Type Severity Reaction Status Date / Time No Known Allergies Allergy Unknown unknown Verified 07/22/24 20:50 [NO KNOWN ALLERGIES] Exam Vital signs: Vital Signs Temp 97.4 F 07/26/24 03:30 Pulse 78 07/26/24 03:30 Resp 20 07/26/24 03:30 BP 139/73 07/26/24 03:30 Pulse Ox 100 07/26/24 03:30 O2 Del Method Nasal Cannula 07/26/24 03:30 O2 Flow Rate 2 07/26/24 03:30 Intake & Output 07/25/24 07/26/24 07/26/24 18:59 06:59 18:59 Intake Total 440 / 1490 1050 / 1490 Output Total 200 / 200 Balance 240 / 1290 1050 / 1290 Urine Output (Average ml/kg/hr) 0.46 0.46 Intake: Intake, Oral Amount 240 / 1040 800 / 1040 Intake, IV Amount 200 / 450 250 / 450 Azithromycin 500 mg In 0.9 % 250 / 250 Sodium Chloride 250 ml @ 125 mls/hr IV Q24H [facility] Rx#: [id number] Potassium Chloride/H20 10 meq 200 / 200 In 100 ml @ 100 mls/hr IV Q1H [facility] Rx#:[id number] Output: Output, Urine Amount 200 / 200 Other: Breakfast % Eaten 100% Dinner % Eaten 25% Eating (Feeding) Ability Independent Independent Number of Unmeasured Voids 1 1 Number of Bowel Movements 1 1 Urine purewick Bedside Commode Urine Color Yellow Yellow Last Bowel Movement 07/25/24 07/26/24 Stool Bedside Commode Bedside Commode Stool Amount Small Small Stool Color Brown Dark Brown Stool Consistency Formed Semi Formed Weight 36 kg Weight 36 kg BMI result Body Mass Index 14.5 - Constitutional Present: moderate distress - Routine HEENT Exam Head: Present: normal inspection, normocephalic - Routine Respiratory Exam Present: decreased breath sounds, CTAB - Routine Cardiovascular Exam Cardiovascular: Present: RRR, S1, S2 - Routine Abdominal Exam Present: soft, nontender - Routine Extremities Exam Present: nontender - Routine Skin Exam Present: intact, normal turgor - Routine Neurological Exam Present: alert, oriented X3 - Detailed Neurological Exam: Coma Scale Eye Opening: Spontaneous (4) Data - Labs CBC & Chem 7: 07/25/24 07:04 07/25/24 15:06 Labs: Laboratory Last Values WBC 13.6 X10*3/uL (4.8-10.8) H 07/25/24 07:04 RBC 4.24 X10*6/uL (4.20-5.50) 07/25/24 07:04 Hgb 13.1 g/dl (12.0-16.0) 07/25/24 07:04 Hct 36.6 % (37.0-47.0) L 07/25/24 07:04 MCV 86.3 fL (80.0-98.0) 07/25/24 07:04 MCH 30.9 pg (27.0-33.0) 07/25/24 07:04 MCHC 35.8 g/dl (31.0-35.0) H 07/25/24 07:04 RDW 15.3 % (11.0-16.0) 07/25/24 07:04 Plt Count 42 X10*3/uL (160-400) L D 07/25/24 07:04 MPV 9.1 fL (9.4-12.3) L 07/25/24 07:04 Immature Gran % (Auto) Cancelled 07/25/24 07:04 Neut % (Auto) Cancelled 07/25/24 07:04 Lymph % (Auto) Cancelled 07/25/24 07:04 [place] % (Auto) Cancelled 07/25/24 07:04 Eos % (Auto) Cancelled 07/25/24 07:04 Baso % (Auto) Cancelled 07/25/24 07:04 Lymph # (Auto) Cancelled 07/25/24 07:04 [place] # (Auto) Cancelled 07/25/24 07:04 Eos # (Auto) Cancelled 07/25/24 07:04 Baso # (Auto) Cancelled 07/25/24 07:04 Abs Immat Gran (auto) Cancelled 07/25/24 07:04 Absolute Neuts (auto) Cancelled 07/25/24 07:04 Absolute Nucleated RBC 0.000 X10*3/uL (0.0-0.012) 07/25/24 07:04 Nucleated RBC % (auto) 0.0 /100WBC (0.0-0.2) 07/25/24 07:04 Neutrophils % (Manual) 86 % (45-73) H 07/25/24 07:04 Band Neutrophils % 9 % (3-5) H 07/25/24 07:04 Lymphocytes % (Manual) 3 % (20-40) L 07/25/24 07:04 Monocytes % (Manual) 4 % (2-11) 07/24/24 06:57 Basophils % (Manual) 1 % (0-2) 07/25/24 07:04 Metamyelocytes % 1 % 07/25/24 07:04 Abs Neuts (Manual) 12.9 X10*3/uL (2.0-8.3) H 07/25/24 07:04 Lymphocytes # (Manual) 0.4 X10*3/uL (1.2-4.9) L 07/25/24 07:04 Monocytes # (Manual) 0.8 X10*3/uL (0.1-1.2) 07/24/24 06:57 Basophils # (Manual) 0.1 X10*3/uL (0.0-0.2) 07/25/24 07:04 Metamyelocytes # 0.1 X10*3/uL 07/25/24 07:04 Toxic Vacuolation PRESENT 07/25/24 07:04 Platelet Estimate DECREASED (NORMAL) 07/25/24 07:04 Plt Morphology Comment NORMAL 07/25/24 07:04 RBC Morphology NORMAL 07/25/24 07:04 Hypochromasia 1+ (5-14) /OIF 07/23/24 08:25 Smear Tech's Comments VERIFIED 07/22/24 21:09 Hold Purple Top SEE NOTE 07/23/24 12:45 Sodium 128 mmol/L (135-145) L 07/25/24 15:06 Potassium 3.9 mmol/L (3.3-5.1) D 07/25/24 15:06 Chloride 95 mmol/L (96-108) L 07/25/24 15:06 Carbon Dioxide 25 mmol/L (22-29) 07/25/24 15:06 Anion Gap 13 (12-20) 07/26/24 05:34 BUN 8 mg/dL (9-16) L 07/25/24 15:06 Creatinine 0.46 mg/dL (0.5-1.4) L 07/25/24 15:06 Estim Creat Clear Calc 70.2 07/25/24 15:06 Estimated GFR > 60 07/25/24 15:06 Random Glucose 132 mg/dL (60-115) H 07/25/24 15:06 Calcium 9.0 mg/dL (8.4-10.2) 07/25/24 15:06 Magnesium 1.5 mg/dL (1.6-2.6) L 07/25/24 07:04 Total Bilirubin 0.5 mg/dL (0.0-1.0) 07/22/24 21:09 AST 22 U/L (5-31) 07/22/24 21:09 ALT 10 U/L (0-31) 07/22/24 21:09 Alkaline Phosphatase 62 U/L (39-117) 07/22/24 21:09 Troponin I High Sens 11.7 ng/L (<3.5-17.0) D 07/22/24 21:09 Total Protein 7.0 g/dL (6.5-8.0) 07/22/24 21:09 Albumin 4.0 g/dL (3.5-5.0) 07/22/24 21:09 Urine Osmolality 366 mosm/kg (373-1093) L 07/23/24 16:14 Ur Random Sodium 77.0 mmol/L 07/23/24 16:14 Blood Type B Positive 07/23/24 12:40 Antibody Screen NEGATIVE 07/23/24 12:40 Crossmatch (AHG) See Detail 07/23/24 12:40 Assessment and Plan Patient Active problem list reviewed?: Yes (1) Small cell lung cancer Problem details: DIAGNOSED TO HAVE SMALL CELL CARCINOMA OF THE RIGHT UPPER LOBE WITH MEDIASTINAL LYMPHADENOPATHY. HAS BEEN TREATED WITH CHEMOTHERAPY, CHEMO RADIATION THERAPY, WITH RELATIVELY POOR. RESPONSE SO FOR CONTINUES TO HAVE A RIGHT SUPRAHILAR MASS WITH MEDIASTINAL LYMPH NODES. HYPONATREMIA HAS RESOLVED. Status: Acute Assessment and plan: 1. This is a 63-year-old woman diagnosed with small cell lung cancer involving right hilum in August 2023. PET scan performed at [facility] on 09/11/2023 showed FDG avid right hilar/suprahilar mass with SUV 12.6, FDG avid mediastinal and right hilar lymphadenopathy. Left supraclavicular lymph node SUV max 4.2, right supraclavicular lymph node SUV max 2, right paratracheal SUV max 9.4, anterior mediastinal SUV max 4.8. Nonspecific focal activity in anal canal SUV 15.3. Patient has been receiving palliative chemotherapy since September 2023. Because of progressive disease, she was started on topotecan in the second-line setting in June 2024. However patient has had declining performance status as well as serious adverse effects of life-threatening cytopenias with chemotherapy even after dose reduction. She is admitted after 2nd cycle of topotecan received a week ago. She has required blood transfusion for anemia. Her white count is elevated secondary to Neulasta. She is being treated for electrolyte abnormalities, hyponatremia and significant hypokalemia. She is on IV antibiotics for pneumonia. She has agreed for hospice consultation today. She would like to be able to go home before admission to inpatient facility for hospice. Thank you. - Time Spent With Patient Time Spent with Patient (in minutes): 15
[2024-07-26] MEDS: Metoclopramide HCl 5 MG TABLET PO ×2 (08:06→12:26)
[2024-07-26] MEDS: Sodium Chloride Tab 1 GM TABLET 2 GM PO (08:07)
[2024-07-26] MEDS: 0.9 % Sodium Chloride Flush 3 ML SYRINGE IVFLUSH (08:07)
[2024-07-26] MEDS: Albuterol/Iprat 2.5/0.5MG 3 ML AMPUL.NEB INHALE ×2 (08:08→12:07)
[2024-07-26] MEDS: Fluticasone Propionate Nasal 16 GM SPRAY 1 SPRAY NOSTRIL-B (08:16)
[2024-07-26 08:22] LABS: Blood Urea Nitrogen 12 mg/dL (9-16); Calcium 8.7 mg/dL (8.4-10.2); Carbon Dioxide 27 mmol/L (22-29); Chloride 94 mmol/L (96-108); Creatinine Clr Calc Pharmacy 65.9; Estimated Glomerular Filt Rate > 60; Glucose Random 111 mg/dL (60-115); Potassium 3.5 mmol/L (3.3-5.1); Sodium 130 mmol/L (135-145)
--- NOTE | 2024-07-26 10:35 | MHC.CM.PN ---
IMM07/26/24 Patient is dc to home today. She will be admitted to [facility] tomorrow @ 1pm thru PCP, Dr Mosley. The PCP office has been notified of the DP. The patient requested to dc to home to get her affairs in order prior to STR. Transportation has been set up for [place]pm [place] [facility] [place]. Patient has arranged for transportation to [facility] tomorrow thru [facility]. Clinical information has been sent to [facility]. Oncology SWs Molly Sparrow and John Arambula are aware of the DP.
--- NOTE | 2024-07-26 10:37 | PM.DS ---
DS: Providers Provider Date of Service: 07/26/24 Date of admission: 07/22/24 22:14 Date of discharge: 08/10/24 Primary care physician: Sarthak Person MD Consults: 07/22/24 23:05 Consult to Hematology / Oncology Routine [place]ing [place] [facility] [place] Reason for consultation: plan for end of life care Has provider been notified: No 07/22/24 23:17 Consult to Hospice Routine Comment: end stage cancer end of life plan 07/25/24 06:46 Consult to Wound Care Routine Reason for consultation: Open area to coccyx DS: Diagnosis Discharge Diagnosis (1) Small cell lung cancer: Status: Acute (2) Acute hyponatremia: Status: Acute (3) Symptomatic anemia: Status: Acute (4) Pneumonia: Status: Acute (5) Acute hypokalemia: Status: Acute (6) Small cell lung cancer: Status: Chronic (7) Respiratory failure with hypoxia: Status: Acute DS: Summary Hospital Course Hospital Course: Admission note HPI Patient is a 63-year-old female with past medical history of small-cell lung cancer on chemotherapy since September of 2023, depression and anxiety, COPD/tobacco dependence history, hepatitis-C, IV drug abuse, hypertension, hyperlipidemia, GERD, IBS-D, prolapsed rectum came in from home with information that patient learned earlier today that she is dying from her small-cell lung cancer. Patient's last chemotherapy treatment was Thursday and patient also received magnesium. Since then patient has been having increasing shortness of breath, headache, dizziness, chest pain and then started having nausea with vomiting today. Patient denies that there was any blood in her emesis and patient is not coughing up any sputum. Patient does use oxygen at home, 3 L continuously. Current vitals are 133/84, pulse 89, respirations 20, temp 97.6 degrees, pulse ox 98% on 3 L nasal cannula. Patient had notified her nurse navigator that she no longer wanted to continue chemotherapy and also met with the oncologist earlier today and there was an open discussion regarding plans for end of life care and hospice evaluation. Patient stated that hospice was going to come to her home on Thursday. Per nurse navigator, family is not able to care for the patient at home. Plan is for hospice consultation along with Oncology to develop plan for inpatient hospice admission at an available facility and to manage patient's symptoms including nausea and pain. A pneumonia was found on chest x-ray and pt will start antibiotics for noted pneumonia. Patient's MOLST was reviewed today and patient prior, was a full code. After a lengthy discussion with education regarding the MOLST form, patient did decide to sign a DNR DNI but is not ready to sign for comfort measures at this time. Patient does not want artificial nutrition or dialysis but is willing to continue artificial hydration. In addition patient is having intermittent nausea with dry heaves and patient will receive Ativan 0.5 mg IV and she can have this every 4 hours as needed for nausea and/or anxiety. Patient also has Zofran ordered. Patient has morphine IV push 1 mg every 4 hours as needed for severe pain as patient reports an 8/10 in the right lower quadrant indicating pain from her lung and not from the abdomen per patient. In addition patient wants to continue to take her oxycodone even though she is having nausea and this can contribute to that, 5 mg every 4 hours as needed for moderate pain. Patient does not have excessive secretions so scopolamine patch is not indicated at this time as well as atropine drops. Patient is currently receiving an IV infusion with potassium as her potassium was 2.8 on arrival. Sodium also 124. Patient has poor venous access and we will do limited labs to follow sodium and potassium levels, unless mediport can be accessed. Renal function is stable. It should be noted that patient is alert and orientated x3, able to make decisions for herself at this time. Patient is struggling with the fact that her body is now compromised by her progressive cancer. Patient understands that there is no further treatment available for her cancer. Patient has lost excessive weight since starting chemotherapy and is now down to 33.8 kg with a BMI of 13.6. Supplemental protein shakes are ordered. Patient does try to eat and drink when she can and denies any issues with swallowing. Education provided to patient noting that as time moves forward patient may be sleeping more and awake less. Patient's appetite may also decline. Patient expressed understanding of the education provided. Patient understands that hospice will be coming by and they will have a discussion about further updating the MOLST to comfort measures, which again the patient is not ready to decide on at this time. Patient does have a healthcare proxy her daughter Yajaira. Hospital course The patient was treated for the following: # Acute on chronic Respiratory failure with a hypoxia as a result of pneumonia. Treated with IV antibiotics, duo nebs bronchodilator and O@ supplement with good response over the course of hospital stay as blood cultures remained negative and She was weaned down to 2L of O2. plan to discharge on Azithromycin and Ceftin for finish treatment. She had Hospice discussion while inpatient. she would like to go home first and get her self prepared to be admitted to hospice facility for hospice care. # Acute on chronic anemia which is chemo related associated rectal prolapse bleeding one time while inpatient. Hb dropped to 7.5 , improved to 13 after 2 units PRBCs. Platelets noticed to be dropped as well to 40. given changing to hospice care will be followed by hospice team who can decide on need of transfusion as needed for comfort. # ACute hyponatremia. Na improved to 130 from 123. 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 To be discharged on salt tabs # Acute hypokalemia. IV infusion with potassium with good response # small-cell lung cancer. spoke to hospice , she wants to go home and transfer from there. Continue with Ativan and Oxycodone PRN for anxiety, SOB and pain. Zofran PRN for nausea. Discharge plan Continue antibiotics as prescribed Sodium tablet twice a day, increase salt in your diet and restrict water Follow with Hospice team as outpatient Time Attestation Discharge Coordination Time (in mins): 45 Quality: Safe Use of Opioids Does Pt have an Active Cancer Diagnosis on the Problem List?: Yes Opioid Measure Date for [facility] Report: 06/26/24 Opioid Measure Time for [facility] Report: 10:46 Quality: Stroke Does the patient have a stroke diagnosis?: No Physical Exam Vital Signs: Vital Signs: Last Vital Signs Temp 96.8 F 07/26/24 07:23 Pulse 86 07/26/24 08:08 Resp 16 07/26/24 08:08 BP 157/89 H 07/26/24 07:23 Pulse Ox 98 07/26/24 07:23 O2 Del Method Nasal Cannula 07/26/24 07:23 O2 Flow Rate 2 07/26/24 07:23 Oxygen Flow Rate 5 07/22/24 20:45 BMI result Body Mass Index 14.5 Const: Other: Constitutional : interactive, not in distress, looks frail Cardiovascular : no JVP, no lower extremity edema Respiratory : bilateral chest movement, not in resp distress , basal crackles , On O2 supplement Gastrointestinal: soft, lax, Non tender Skin : Warm, Dry Neurological : Alert & oriented , No focal deficit DS: Data Data Completed and Pending Completed studies during hospitalization [Text1]: Procedures Excision of Right Main Bronchus, Via Natural or Artificial Opening Endoscopic, Diagnostic (08/24/23) Inspection of Lower Intestinal Tract, Via Natural or Artificial Opening Endoscopic (12/14/23) Transfusion of Nonautologous Platelets into Peripheral Vein, Percutaneous Approach (12/14/23) Transfusion of Nonautologous Red Blood Cells into Peripheral Vein, Percutaneous Approach (12/14/23) Labs on day of discharge: Laboratory Results - last 24 hr 07/25/24 07/25/24 07/26/24 07:04 15:06 05:34 Sodium 128 L 130 L Potassium 3.9 D 3.5 Chloride 95 L 94 L Carbon Dioxide 25 27 Anion Gap 12 13 BUN 8 L 12 Creatinine 0.46 L 0.49 L Estim Creat Clear Calc 70.2 65.9 Estimated GFR > 60 > 60 Random Glucose 132 H 111 Calcium 9.0 8.7 Magnesium 1.5 L Preliminary micro results at discharge 07/22/24 00:15 Blood Culture - Preliminary Blood - Venous No growth after 48 hours. 07/22/24 00:15 Blood Culture - Preliminary Blood - Venous No growth after 48 hours. Discharge Plan Discharge Anticipated Discharge Date/Time: 07/26/24 10:25 Patient Disposition: Home Health Service Discharge Diagnosis: Pneumonia Electrolytes imbalance Referrals: Sarthak Person MD [Primary Care Provider] - 1 Week Discharge Medications: New sodium chloride 1,000 mg Tablet,Soluble 1,000 mg PO BID Qty: 60 0RF azithromycin 500 mg tablet 500 mg PO DAILY 5 Days Qty: 5 0RF cefuroxime axetil 500 mg tablet 500 mg PO BID Qty: 10 0RF Continued mirtazapine 30 mg tablet 30 mg PO BEDTIME Qty: 90 1RF Incruse Ellipta 62.5 mcg/actuation blister with device 1 inh inhalation DAILY 30 Days Qty: 30 5RF (DME) ADULT PULL UPS (small) See Rx Instructions .Route .MEDSUPPLY Qty: 240 12RF Rx Instructions: As directed (DME) blood pressure monitor Kit See Rx Instructions .ROUTE .MEDSUPPLY Qty: 1 0RF Rx Instructions: As directed cholecalciferol (vitamin D3) 50 mcg (2,000 unit) capsule 50 mcg PO DAILY Qty: 90 3RF albuterol sulfate [Ventolin HFA] 90 mcg/actuation HFA aerosol inhaler 1 puff PO Q6H PRN (Reason: shortness of breath or wheezing) 30 Days Qty: 8.5 3RF hydroxyzine HCl 50 mg tablet 50 mg PO BEDTIME Qty: 90 1RF alosetron 0.5 mg tablet 1 mg PO DAILY Qty: 60 6RF (DME) Ultra-Light Rollator Misc See Rx Instructions .Route Qty: 1 0RF Rx Instructions: As directed solifenacin 10 mg tablet 10 mg PO DAILY@0900 Qty: 90 0RF fluticasone propionate 50 mcg/actuation spray,suspension 1 spray intranasal DAILY 30 Days Qty: 16 2RF ondansetron 8 mg Tablet,Disintegrating 8 mg PO Q8H PRN (Reason: Nausea And Vomiting) Qty: 30 3RF acetaminophen [Tylenol Extra Strength] 500 mg Tablet 500 mg PO QID PRN (Reason: Breakthrough Pain, Moderate) Qty: 60 0RF alum-mag hydroxide-simeth [Maalox Maximum Strength] 400-400-40 mg/5 mL Suspension 10 ml PO TID PRN (Reason: Indigestion) Qty: 250 0RF loratadine 10 mg Tablet 10 mg PO DAILY Qty: 30 3RF Boost 0.04 gram- 1 kcal/mL Liquid 1 ea PO BID Qty: 30 1RF diphenoxylate-atropine [Lomotil] 2.5-0.025 mg Tablet 1 tab PO BID PRN (Reason: Diarrhea) Qty: 60 0RF loperamide [Imodium A-D] 2 mg Capsule 2 mg PO Q6H PRN (Reason: Diarrhea) Qty: 30 2RF clonazepam 0.5 mg Tablet 0.5 mg PO BID PRN (Reason: Anxiety) Qty: 60 0RF potassium chloride 20 mEq Tablet Extended Release 20 meq PO BID hydrocortisone [Proctozone-HC] 2.5 % cream with perineal applicator 1 appl WV BID PRN (Reason: Hemorrhoids) oxycodone 5 mg Tablet 5 mg PO Q4H PRN (Reason: Severe Pain (Scale Score 7-10)) Qty: 30 0RF Rx Instructions: Partial Fill upon patient request. nicotine 14 mg/24 hr patch 24 hour 1 patch transdermal Q24H MDD smoking 28 Days Qty: 28 2RF metoclopramide HCl 5 mg tablet 5 mg PO TIDAC Qty: 90 6RF pantoprazole 40 mg tablet,delayed release (DR/EC) 40 mg PO BID Qty: 60 6RF sucralfate [Carafate] 1 gram tablet 4 g PO DAILY@1200 Qty: 120 6RF Discharge Orders: Discharge Order (Routine); Ordered 07/26/24 Ordered By: Jovanni Bergman Diet: Regular diet Activity on Discharge: As tolerated Stand Alone Forms: Patient Portal Discharge page Print Language: Kazakh Care Plan Goals: Continue antibiotics as prescribed Sodium tablet twice a day, increase salt in your diet and restrict water Follow with Hospice team as outpatient Health Concerns: Pneumonia Low sodium Plan of Treatment: Antibiotics Hospice follow up Assessment: as above
--- NOTE | 2024-07-26 12:20 | HO.WOUND ---
Wound Consult: Initial 63yr old?female admitted to [facility] [place] on 07/22/24 - See progress notes and H&P for detailed history.? Wound consult placed for Sacrum / Coccyx wound POA.? Patient agreeable to assessment and photo documentation.? Sacrum / Coccyx Etiology: ?Unstageable Pressure injury ?Present on Admission Measurements: 0.3cm x 0.3cm x 0.3cm Wound Bed: adherent yellow slough Drainage / Odor: None noted Edges: ? well defined Loren wound: dark red maroon nonblanchable tissue - hyperpigmentaiton noted - reports baseline stool incontinence ? No Induration, Fluctuance or Warmth noted Pain: denies Goals of Treatment: ? Foam dressing to aid in pressure redistribution or barrier cream and off loading pressure from sacrum and coccyx Recommendations: 1. Turn and Reposition every 2 hours and as needed for patient comfort.? Use pillows or wedges to support off loading positions. 2. Off Load all bony prominences with use of pillows and heel boots if needed.? Apply Preventative foams where needed. ? 3. Monitor for incontinence and moisture control, use barrier creams when needed for prevention and treatment. 4. Provide adequate and supplemental nutrition.? 5. Continue low air loss mattress. 6. When applicable maintain blood glucose levels per Providers order. Sacrum - Off Load Pressure with Q2 hr turns and use of pillows - Cleanse with PH balance spray or wipes, pat dry. ?Apply skin prep allow to dry. Apply foam dressing to aid in off loading and protection from friction. Change every 3-5 days and PRN. Waffle cushion when up to chair. Re-consult wound care Nurse for wound deterioration or wound changes.
[2024-07-26] MEDS: Sucralfate 1 GM TABLET 4 GM PO ×2 (12:27→12:40)
[2024-07-26] MEDS: Nicotine 14 MG PATCH.TD24 TRANSDERMA (12:27)
--- NOTE | 2024-07-26 12:33 | PC.NURSE ---
BP 189/89 on a Right arm,184/100 on left Arm,pulse 94 ,patient srtressed about discharge,Dr. Bergman notified
[2024-07-26] MEDS: fentaNYL 12 MCG PATCH.TD72 TRANSDERMA (12:37)
[2024-07-26] MEDS: amLODIPine Besylate 2.5 MG TABLET PO (12:50)
--- NOTE | 2024-07-26 12:50 | PC.NURSE ---
Amlodipine dose administered,patient is ok to be discharged at 1300
--- NOTE | 2024-07-26 13:24 | PC.NURSE ---
Fentanyl patch was removed from right shoulder ,charge nurse Mike witnessed,new patch was applied on
--- NOTE | 2024-07-26 14:03 | PC.NURSE ---
Discharge instructions explained to patient by registered nurse teacher Mike
== END 2024-07-26 13:22 | disposition home health service (06) | DRG 193 ==
LOC: HO.ED 23:07 → HO.EDOVER 23:28 → HO.IMC 07-23 00:57 → HO.S3 07-24 22:38
PROVIDERS: Admitting Provider Nurse Practitioner Family; Emergency Provider Emergency Medicine; PCP Internal Medicine; Visit Provider Student in an Organized Health Care Education/Training Program
DX: J18.9 Pneumonia, unspecified organism (principal); J96.21 Acute and chronic respiratory failure with hypoxia; C34.11 Malignant neoplasm of upper lobe, right bronchus or lung; D62 Acute posthemorrhagic anemia; E87.1 Hypo-osmolality and hyponatremia; D63.0 Anemia in neoplastic disease; E87.6 Hypokalemia; Z66 Do not resuscitate; Z86.19 Personal history of other infectious and parasitic diseases; Z99.81 Dependence on supplemental oxygen; Z87.891 Personal history of nicotine dependence; Z79.51 Long term (current) use of inhaled steroids; Z79.899 Other long term (current) drug therapy
CPT/HCPCS: 36415; 71045; 80048; 80053; 83735; 83935; 84300; 84484; 85007; 85025; 85027; 86850; 86900; 86901; 86920; 86922; 87040; 93005; 94640; 97162; 99285; J0456; J0696; J1642; J2405; J2470; J3360; J3475; J3480; P9016

== ENCOUNTER → 2024-07-22 20:53 | Outpatient (BNV) | payer OTHER, SELFPAY | PROVIDERS: Admitting Provider Nurse Practitioner Family; Emergency Provider Emergency Medicine; PCP Internal Medicine; Visit Provider Internal Medicine Cardiovascular Disease | DX: I49.3 Ventricular premature depolarization (principal); I49.9 Cardiac arrhythmia, unspecified | CPT/HCPCS: 93010 ==

== ENCOUNTER → 2024-07-22 20:54 | Outpatient (BNV) | payer OTHER, SELFPAY | PROVIDERS: Emergency Provider Emergency Medicine; PCP Internal Medicine; Visit Provider Radiology Diagnostic Radiology | DX: R07.9 Chest pain, unspecified (principal); R06.00 Dyspnea, unspecified | CPT/HCPCS: 71045 ==

== ENCOUNTER 2024-07-22 22:14 | Outpatient (BNV) | payer OTHER, SELFPAY | END 2024-07-23 01:08 | PROVIDERS: Admitting Provider Nurse Practitioner Family; Emergency Provider Emergency Medicine; PCP Internal Medicine; Visit Provider Internal Medicine Cardiovascular Disease | DX: I49.1 Atrial premature depolarization (principal) | CPT/HCPCS: 93010 ==

== ENCOUNTER → 2024-07-22 22:14 | Outpatient (BNV) | payer OTHER, SELFPAY | PROVIDERS: Admitting Provider Nurse Practitioner Family; Emergency Provider Emergency Medicine; PCP Internal Medicine; Visit Provider Internal Medicine Medical Oncology | DX: C34.91 Malignant neoplasm of unspecified part of right bronchus or lung (principal) | CPT/HCPCS: 99222 ==

== ENCOUNTER → 2024-07-22 22:14 | Outpatient (BNV) | payer OTHER, SELFPAY | PROVIDERS: Admitting Provider Nurse Practitioner Family; Emergency Provider Emergency Medicine; PCP Internal Medicine; Visit Provider Nurse Practitioner Family | DX: C34.11 Malignant neoplasm of upper lobe, right bronchus or lung (principal); E87.1 Hypo-osmolality and hyponatremia; D64.9 Anemia, unspecified; J18.9 Pneumonia, unspecified organism; E87.6 Hypokalemia; J96.21 Acute and chronic respiratory failure with hypoxia; C34.91 Malignant neoplasm of unspecified part of right bronchus or lung | CPT/HCPCS: 99221; 99232; 99233; 99239 ==

== ENCOUNTER 2024-08-17 13:52 | Outpatient (AMB) | payer OTHER, SELFPAY ==
--- OUTSIDE RECORDS SUMMARY | 2024-08-17 13:55 | XMS_ITS | Data Portability ---
Author Organization [employer] [place] [employer] Address [address] [place] [address] Care Team Providers Care Top Executive Name Role Phone HIM CCA OTHER GLEN [...] klonopin now for anxiety. FUP with PCP. carrie Not available 12/17/2023 19:52:18 07/26/2024 07/26/2024 service called for check WOB found 63 frank with hx active SCLC COPD on 3L home O2 HTN c/o increased WOB found to have pna on ED visit and hypoNa receiving abx and additional solute PO will initiate rehab stay tomorrow AM currently reports stable WOB, stable R-sided chest pain known assoc with SCLC has abx and Na solute medications on hand VS af 164/90 80s on recheck RR 20 98%3LNC reported speaking full sentences, comfortable CTAB #PNA continue azithro abx course as prescribed continue with planned rehab stay as planned #HypoNa conitnue with Na supplement as planned notify service if worsening or new sx otherwise return to ptimary team and existing care plan [email or web address] Not available 07/26/2024 18:14:25 Plan of Treatment Reminders Order Date Submit [...] Referral None Reported. Medical Equipment None Reported. Allergies Allergen ID Allergen Name Allergen Category Reaction Reaction Severity Criticality Documentation Date Start Date Code Code System Note Provider Name and Address Organization Details Recorded Time 22046 morphine medicatio n Not available Not available Not available 07/26/2024 7052 RxNorm Not Available [employer] - production 15:36:37 Medications Name Sig Start Date Stop Date [...] % 99 % 2 L/min 98.4 [degF] 50226.4 48 g 88 /min 18 /min 156 mm[Hg] 86 mm[Hg] Not Available [employer] - production 4 19:23:28 Date Recorded Respiratory rate Heart rate Body temperature Body weight Body height Oxygen saturation Oxygen saturation in Arterial blood by Pulse oximetry Systolic blood pressure Diastolic blood pressure Provider Name and Address Organization Details Last Updated DateTime 5 20 /min 110 /min 98 [degF] 44233.8 g 152.4 cm 98 % 98 % 164 mm[Hg] 90 mm[Hg] Not Available [employer] 5 16:33:26 Social History None recorded. Functional Status None recorded. Mental Status None recorded. Family History Nothing Reported. Medical History No medical history recorded. Gynecological HistoryNo gynecological history recorded. Obstetrics History GPAL:G 0 P 0 0 0 0 Past Encounters Encounter ID Performer Location Encounter Start Date Encounter Closed Date Diagnosis/Indication Diagnosis SNOMED-CT Code Diagnosis ICD10 Code Diagnosis Note [id number] PK AZAR MD [facility] [address] [place] [address] [id number] 12/17/2023 19:23:25 12/17/2023 21:29:56 Anxiety 57533967 F41.9 Painless r ectal bleeding 860327526 K62.5 [id number] Grace Sanchez MD [facility] - [facility] [address] [place] [address] [id number] 07/26/2024 16:33:24 07/26/2024 20:22:11 Pneumonia 809324786 J18.9 Health Concerns Section Related Observation LastModified by Organization Detai ls LastModified Time None Recorded Concern Status LastModified by Organization Details LastModified Time None Recorded Advance Directives Directive None Recorded Payers Insurance Date Sequence Insurance Name Policy Number Policy Dong Covered Member ID Dong Member ID Guarantor Name 07/26/2024 1 [facility] - DOS ON OR AFTER 2022 - DUAL ELIGIBLE - HALFWAY OPTIONS AND ONE CARE (MEDICARE REPLACEMENT/ADV ANTAGE - HMO) Sarah Medina [id number] Sarah Medina Notes Date Note Type Note [...] ...................... ...................... ...................... ...................... ...................... ...................... ......... Chemical Educator Note From Kenroy Cole: Pt co anxiety [...] home o2 2 lpm. Afebrile. Lungs clear. [facility] contacted and advised pt to take another one of her prescribe clonazepam 0.5mg. Pt took during visit. Pt advised to follow up with pcp for referral to therapist in the morning . Pt education on signs indicating the ER. Pt gave email for consent form signature. ...................... ...................... ...................... ...................... ...................... ...................... ......... Disposition: Fulfilled PK AZAR MD [address] [facility],[address], [place], [address], [employer] 12/17/2023 20:37:01 07/26/2024 text/html HPI: Additional PMH:[age] y.o female complains of Breathing ProblemsPt's care team coordinator scheduler calling reporting pt was seen at [facility] earlier today for SOB. Pt reports chest pain and SOB, pt reports hx of small cell lung cancer. Pt wears 3L via NC at baseline. Pt reports cough for a couple days, pt reports she also currently has pneumonia. Pt reports she was discharged home to get some items together for rehab. Pt speaking in full, complete sentences at time of call. I provided information on the mobile health provider response time and advised the patient and/or caregiver to monitor reported signs and symptoms. I discussed the warning signs of when to seek emergency care. ...................... ...................... ...................... ...................... ...................... ...................... ......... CRC Nurse Triage Notes (Carter Carrasquillo): Reason For Request: Patient was at [facility] today at 1pm, - Wants help in home, doesn't feel well, Hard to breath, on oxygen, chest hurts. Denies: Increased work of breathing/labored ? with or without fever Unable to speak in full sentences without distress Discoloration of skin -cyanosis Needs to sleep sitting up, can? t catch breath Shortness of breath in setting of confusion Chief Complaints: Breathing Problems PMH: Cancer, COPD/Asthma, Hypertension PMH Reviewed at 07/26/2024 - 15:36 Allergies Reviewed at 07/26/2024 - 15:36 ...................... ...................... ...................... ...................... ...................... ...................... ......... Chemical Educator Note From Deniz Olsen: Patient alert and oriented complains of right lower lobe lung pain at site of cancer pain, patient has been struggling with for months. Patient reports she was at ED today, treated for pneumonia and hyponatremia. Patient reports she feels better than she did this morning, is waiting for a ride, scheduled for tomorrow at 8:30 AM, to take her to a physical rehab rehabilitation facility where she has an inpatient bed. Patient denies difficulty breathing dizziness, weakness, nausea, vomiting, diarrhea, or any other pain or complaints. Patient pink warm dry, secondary exam unremarkable. Patient speaks full sentences, is on oxygen via nasal cannula at 3 L. Lung sounds diminished, good air exchange noted. Abdomen soft nontender extremities unremarkable. Good skin turgor. [facility] recommend supportive care and to call 911 to return to hospital if needed. Patient advises she? l l be able to wait for transportation to rehab facility tomorrow. Patient demonstrates understanding of care and plan. Patient has prescribed medication? s on hand. Red flags, patient education discussed. ...................... ...................... ...................... ...................... ...................... ...................... ......... [facility] Consulted: Grace Sanchez ...................... ...................... ...................... ...................... ...................... ...................... ......... Disposition: Fulfilled Grace Sanchez MD [address] [place] [address],[address], [place], [phone], [facility] [employer], [facility] 07/26/2024 18:15:07 OBGyn Episode No OBEpisode recorded.
--- OUTSIDE RECORDS SUMMARY | 2024-08-17 13:55 | XMS_ITS | Clinical Summary ---
Author Organization [address] [facility] Address [address] [place] [address] Phone Care Team Providers Care Sail Repairer Name Role Phone Sarthak Person MD Primary Care Provider Encounters Date Type Department Care Team Description 07/29/2024 Lab Requisition [facility] Lab [address] [place] [phone] Ly Johnson MD Malignant neoplasm of unspecified part of unspecified bronchus or lung ([facility] V24, [facility] V28); Pneumonia, unspecified organism 07/28/2024 Lab Requisition [facility] Lab [address] [place] [address] Ly Johnson MD Malignant neoplasm of unspecified part of unspecified bronchus or lung ([facility] V24, [facility] V28); Pneumonia, unspecified organism from Last 3 Months Social History Tobacco Use Types Packs/Day Years [...] Influencers of Health Screening 05/06/2023 Influenza Vaccine (Season Ended) 2024 RSV Immunization Adult Patie nts (1 - 1-dose 75+ series) 08/21/2034 HIB [...] age to complete this topic Meningococcal B Vaccine Aged Out No l onger eligible based on patient's age to complete this topic RSV Immunization Patients Un rodolfo 20 months Aged Out No longer eligible b ased on patient's age to complete this topic Varicella Vaccines Aged Out No longer eligible based on patient's age to complete this topic Procedures Procedure Name Priority Date/Time Associated Diagnosis Comments PATHOLOGIST REVIEW BLOOD SMEAR Routine 07/28/2024 6:39 AM EDT Malignant neoplasm of unspecified part of unspecified bronchus or lung (CMS/HCC V24, CMS/HCC V28) Pneumonia, unspecified organism COMPREHENSIVE METABOLIC PANEL Routine 07/28/2024 6:39 AM EDT Malignant neoplasm of unspecified part of unspecified bronchus or lung (CMS/HCC V24, CMS/HCC V28) Pneumonia, unspecified organism COMPLETE BLOOD COUNT Routine 07/28/2024 6:39 AM EDT Malignant neoplasm of unspecified part of unspecified bronchus or lung (CMS/HCC V24, CMS/HCC V28) Pneumonia, unspecified organism from Last 3 Months Results * Pathology review, blood smear (07/28/2024 6:39 AM EDT) Pathologist Review Blood Smear Thrombocytopenia confirmed (no platelet clumps); smear not diagnostic of etiology. Clinical correlation and follow-up is recommended, including follow-up CBC to evaluate for persistence as clinically indicated. 07/28/2024 1:30 PM EDT [facility] Blood Venous blood specimen / Unknown Venipuncture / Unknown 07/28/2024 6:39 AM EDT 07/28/2024 8:04 AM EDT Ly Johnson MD LAB BLOOD ORDERABLES Fin al Result [facility] [address] [place] [address], * (ABNORMAL) Complete blood count (07/28/2024 6:39 AM EDT) WBC 9.5 4.8 - 10.8 K/[facility] LAB HEMETOLOGY METHOD 07/28/2024 1:33 PM EDT [facility] RBC 4.50 3.80 - 4.80 M/mcL LAB HEMETOLOGY METHOD 07/28/2024 1:33 PM EDT [facility] Hemoglobin 13.7 11.5 - 16.0 g/dL LAB HEMETOLOGY METHOD 07/28/2024 1:33 PM [facility] Hematocrit 40.5 35.0 - 47.0 % LAB HEMETOLOGY METHOD 07/28/2024 1:33 PM [facility] MCV 90.2 79.0 - 98.0 FL LAB HEMETOLOGY METHOD 07/28/2024 1:33 PM [facility] MCH 30.5 27.0 - 32.0 pcg LAB HEMETOLOGY METHOD 07/28/2024 1:33 PM [facility] MCHC 33.8 32.0 - 37.0 g/dL LAB HEMETOLOGY METHOD 07/28/2024 1:33 PM [facility] RDW 16.0(H) 11.0 - 15.0 % LAB HEMETOLOGY METHOD 07/28/2024 1:33 PM [facility] Platelets 31(L) 130 - 400 K/mcL LAB HEMETOLOGY METHOD 07/28/2024 1:33 PM [facility] Comment:reviewed by slide MPV 9.8 7.0 - 11.0 FL LAB HEMETOLOGY METHOD 07/28/2024 1:33 PM [facility] NRBC 0.0 <1.0 % LAB HEMETOLOGY METHOD 07/28/2024 1:33 PM [facility] NRBC Absolute 0.00 <0.10 K/mcL LAB HEMETOLOGY METHOD 07/28/2024 1:33 PM [facility] Blood Venous blood specimen / Unknown Venipuncture / Unknown 07/28/2024 6:39 AM EDT 07/28/2024 8:04 AM EDT us Ly Johnson MD LAB BLOOD ORDERABLES Omar curt Result - Final [facility] [address] [place] [address], * (ABNORMAL) Comprehensive metabolic panel (07/28/2024 6:39 AM EDT) Sodium 129(L) 133 - 145 mmol/L LAB CHEMISTRY METHOD 07/28/2024 10:12 AM [facility] Potassium 2.9(LL) 3.5 - 5.5 mmol/L LAB CHEMISTRY METHOD 07/28/2024 10:12 AM [facility] Chloride 92(L) 96 - 110 mmol/L LAB CHEMISTRY METHOD 07/28/2024 10:12 AM [facility] CO2 27 21 - 32 mmol/L LAB CHEMISTRY METHOD 07/28/2024 10:12 AM [facility] Anion Gap 10 3 - 11 LAB CHEMISTRY METHOD 07/28/2024 10:12 AM [facility] Glucose 105(H) 70 - 100 mg/dL LAB CHEMISTRY METHOD 07/28/2024 10:12 AM [facility] BUN 13 5 - 25 mg/dL LAB CHEMISTRY METHOD 07/28/2024 10:12 AM [facility] Creatinine 0.37(L) 0.50 - 1.10 mg/dL LAB CHEMISTRY METHOD 07/28/2024 10:12 AM [facility] eGFR 113 >=60 mL/min/1. 73m2 LAB CHEMISTRY METHOD 07/28/2024 10:12 AM [facility] Comment:Calculation based on the??Chronic Kidney Disease Epidemiology Collaboration (CKD-EPI) equation refit??without adjustment for race. BUN/Creatinine Ratio 35.1 LAB CHEMISTRY METHOD 07/28/2024 10:12 AM [facility] Calcium 9.2 8.5 - 10.5 mg/dL LAB CHEMISTRY METHOD 07/28/2024 10:12 AM [facility] AST (SGOT) 11 10 - 42 unit/L LAB CHEMISTRY METHOD 07/28/2024 10:12 AM [facility] ALT (SGPT) 13 10 - 60 unit/L LAB CHEMISTRY METHOD 07/28/2024 10:12 AM [facility] Alkaline Phosphatase 110 42 - 121 unit/L LAB CHEMISTRY METHOD 07/28/2024 10:12 AM [facility] Total Protein 7.1 6.0 - 8.0 g/dL LAB CHEMISTRY METHOD 07/28/2024 10:12 AM [facility] Albumin 3.9 3.2 - 5.0 g/dL LAB CHEMISTRY METHOD 07/28/2024 10:12 AM [facility] Total Bilirubin 0.5 0.0 - 1.4 mg/dL LAB CHEMISTRY METHOD 07/28/2024 10:12 AM [facility] Blood Venous blood specimen / Unknown Venipuncture / Unknown 07/28/2024 6:39 AM EDT 07/28/2024 8:04 AM EDT us Ly Johnson MD LAB BLOOD ORDERABLES Fin al Result [facility] [address] [place] [address], from Last 3 Months Insurance MEDICAID - [place] Care Teams Sail Repairer Relationship Specialty Start Date End Date Sarthak Person MD [address] [place] [address] [place] [address] PCP - General Internal Medicine 02/06/15
--- OUTSIDE RECORDS SUMMARY | 2024-08-17 13:55 | XMS_ITS | Encounter Summary ---
Author Organization [facility] Address [address] [place] [address] Care Team Providers Care Parts Identifier Name Role Phone Sarthak Person MD Primary Care Provider + [phone] Encounter Details Date Type Department Care Team (Late st Contact Info) Description 07/28/2024 Lab Requisition [facility] Lab [address] [facility] [place] [phone] Ly Johnson MD [address] [address] Malignant neoplasm of unspecified part of unspecified bronchus or lung (CMS/HCC V24, CMS/HCC V28); Pneumonia, unspecified organism Social History Tobacco Use Types Packs/Day Years [...] on file Sexual Orientation Not on file documented as of this encounter Plan of Treatment Not on file documented as of this encounter Procedures Procedure Name Priority Date/Time Associated Diagnosis Comments PATHOLOGIST REVIEW BLOOD SMEAR Routine 07/28/2024 6:39 AM EDT Malignant neoplasm of unspecified part of unspecified bronchus or lung (CMS/HCC V24, CMS/HCC V28) Pneumonia, unspecified organism COMPLETE BLOOD COUNT Routine 07/28/2024 6:39 AM EDT Malignant neoplasm of unspecified part of unspecified bronchus or lung (CMS/HCC V24, [facility] V28) Pneumonia, unspecified organism COMPREHENSIVE METABOLIC PANEL Routine 07/28/2024 6:39 AM EDT Malignant neoplasm of unspecified part of unspecified bronchus or lung ([facility] V24, [facility] V28) Pneumonia, unspecified organism documented in this encounter Results * Pathology review, blood smear (07/28/2024 6:39 AM EDT) Pathologist [facility] Pathologist Review Blood Smear Thrombocytopenia confirmed (no platelet clumps); smear not diagnostic of etiology. Clinical correlation and follow-up is recommended, including follow-up CBC to evaluate for persistence as clinically indicated. 07/28/2024 1:[address] [facility] Blood Venous blood specimen / Unknown Venipuncture / Unknown 07/28/2024 6:39 AM EDT 07/28/2024 8:04 AM EDT us Ly Johnson MD LAB BLOOD ORDERABLES Fin al Result [facility] [address] [place] [address], * (ABNORMAL) Comprehensive metabolic panel (07/28/2024 6:39 AM EDT) Sodium 129(L) 133 - 145 mmol/L LAB CHEMISTRY METHOD 07/28/2024 10:[address] [facility] Potassium 2.9(LL) 3.5 - 5.5 mmol/L LAB CHEMISTRY METHOD 07/28/2024 10:[address] [facility] Chloride 92(L) 96 - 110 mmol/L LAB CHEMISTRY METHOD 07/28/2024 10:[address] [facility] CO2 27 21 - 32 mmol/L LAB CHEMISTRY METHOD 07/28/2024 10:12 AM [facility] Anion Gap 10 3 - 11 LAB CHEMISTRY METHOD 07/28/2024 10:12 AM [facility] Glucose 105(H) 70 - 100 mg/dL LAB CHEMISTRY METHOD 07/28/2024 10:12 AM [facility] BUN 13 5 - 25 mg/dL LAB CHEMISTRY METHOD 07/28/2024 10:12 AM [facility] Creatinine 0.37(L) 0.50 - 1.10 mg/dL LAB CHEMISTRY METHOD 07/28/2024 10:12 AM [facility] eGFR 113 >=60 mL/min/1. 73m2 LAB CHEMISTRY METHOD 07/28/2024 10:12 AM [facility] Comment:Calculation based on the??Chronic Kidney Disease Epidemiology Collaboration (CKD-EPI) equation refit??without adjustment for race. BUN/Creatinine Ratio 35.1 LAB CHEMISTRY METHOD 07/28/2024 10:12 AM [facility] Calcium 9.2 8.5 - 10.5 mg/dL LAB CHEMISTRY METHOD 07/28/2024 10:12 AM [facility] AST (SGOT) 11 10 - 42 unit/L LAB CHEMISTRY METHOD 07/28/2024 10:12 AM [facility] ALT (SGPT) 13 10 - 60 unit/L LAB CHEMISTRY METHOD 07/28/2024 10:12 AM [facility] Alkaline Phosphatase 110 42 - 121 unit/L LAB CHEMISTRY METHOD 07/28/2024 10:12 AM [facility] Total Protein 7.1 6.0 - 8.0 g/dL LAB CHEMISTRY METHOD 07/28/2024 10:12 AM [facility] Albumin 3.9 3.2 - 5.0 g/dL LAB CHEMISTRY METHOD 07/28/2024 10:12 AM [facility] Total Bilirubin 0.5 0.0 - 1.4 mg/dL LAB CHEMISTRY METHOD 07/28/2024 10:[address] [facility] Blood Venous blood specimen / Unknown Venipuncture / Unknown 07/28/2024 6:39 AM EDT 07/28/2024 8:04 AM EDT us Ly Johnson MD LAB BLOOD ORDERABLES Fin al Result [facility] [address] [place] [address], * (ABNORMAL) Complete blood count (07/28/2024 6:39 AM EDT) WBC 9.5 4.8 - 10.8 K/mcL LAB HEMETOLOGY METHOD 07/28/2024 1:[address] [facility] RBC 4.50 3.80 - 4.80 M/[facility] LAB HEMETOLOGY METHOD 07/28/2024 1:[address] [facility] Hemoglobin 13.7 11.5 - 16.0 g/dL LAB HEMETOLOGY METHOD 07/28/2024 1:[address] [facility] Hematocrit 40.5 35.0 - 47.0 % LAB HEMETOLOGY METHOD 07/28/2024 1:[address] [facility] MCV 90.2 79.0 - 98.0 FL LAB HEMETOLOGY METHOD 07/28/2024 1:[address] [facility] MCH 30.5 27.0 - 32.0 pcg LAB HEMETOLOGY METHOD 07/28/2024 1:[address] [facility] MCHC 33.8 32.0 - 37.0 g/dL LAB HEMETOLOGY METHOD 07/28/2024 1:[address] [facility] RDW 16.0(H) 11.0 - 15.0 % LAB HEMETOLOGY METHOD 07/28/2024 1:[address] [facility] Platelets 31(L) 130 - 400 K/mcL LAB HEMETOLOGY METHOD 07/28/2024 1:[address] [facility] Comment:reviewed by slide MPV 9.8 7.0 - 11.0 FL LAB HEMETOLOGY METHOD 07/28/2024 1:[address] [facility] NRBC 0.0 <1.0 % [facility] 07/28/[facility]24 1:[address] [facility] NRBC Absolute 0.00 <0.10 K/mcL LAB [facility] 07/28/2024 1:[address] [facility] Blood Venous blood specimen / Unknown Venipuncture / Unknown 07/28/2024 6:39 AM EDT 07/28/2024 8:04 AM EDT us Ly Johnson MD LAB BLOOD ORDERABLES Omar curt Result - Final [facility] [address] [place] [address], documented in this encounter Visit Diagnoses Diagnosis Malignant neoplasm of unspecified part of unspecified bronchus or lung (CMS/HCC V24, CMS/HCC V28) Pneumonia, unspecified organism documented in this encounter Care Teams Parts Identifier Relationship Specialty Start Date End Date Sarthak Person MD [address] [place] [address] [address] [facility] PCP - General Internal Medicine 02/06/15 documented as of this encounter
--- OUTSIDE RECORDS SUMMARY | 2024-08-17 13:55 | XMS_ITS | Encounter Summary ---
Author Organization [facility] Address [address] [place] [address] Care Team Providers Care Environmental Consultant Name Role Phone Sarthak Person MD Primary Care Provider + [phone] Encounter Details Date Type Department Care Team (Late st Contact Info) Description 07/29/2024 Lab Requisition [facility] - Main Lab [address] [facility] [place] [phone] Ly Johnson MD [address] [address] Malignant neoplasm of unspecified part of unspecified [...] on file documented as of this encounter Visit Diagnoses Diagnosis Malignant neoplasm of unspecified part of unspecified bronchus or lung (CMS/HCC V24, CMS/HCC V28) Pneumonia, unspecified organism documented in this encounter Care Teams Environmental Consultant Relationship Specialty Start Date End Date Sarthak Person MD [address] [place] [address] PCP - General Internal Medicine 02/06/15 documented as of this encounter
--- NOTE | 2024-08-17 14:04 | MHC.PC.OV ---
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 Accompanied by: Self / Same As Patient Allergies No Known Allergies [NO KNOWN ALLERGIES] Allergy (Unknown, Verified 08/17/24 14:20) unknown Medication List - Last Reconciled 08/18/24 by Sarthak Person MD acetaminophen (Tylenol Extra Strength) 500 mg PO QID PRN [ADULT PULL UPS (small) As directed] albuterol sulfate 90 mcg/actuation (Ventolin HFA) 1 puff PO Q6H PRN 30 days alosetron 1 mg (2 x 0.5 mg) PO DAILY alum-mag hydroxide-simeth 400-400-40 mg/5 mL (Maalox Maximum Strength) 10 mL PO TID PRN blood pressure monitor As directed cholecalciferol (vitamin D3) 50 mcg PO DAILY clonazepam 0.5 mg PO BID PRN diphenoxylate-atropine 2.5-0.025 mg (Lomotil) 1 tab PO BID PRN fluticasone propionate 50 mcg/actuation 1 spray intranasal DAILY 30 days food supplemt, lactose-reduced (Boost) 1 ea PO BID hydrocortisone 2.5% (Proctozone-HC) 1 appl [place] BID PRN hydroxyzine HCl 50 mg PO BEDTIME loperamide (Imodium A-D) 2 mg PO Q6H PRN loratadine 10 mg PO DAILY Magic Mouthwash Diphen/Nystat/Antacid 1:1:1 10 mL PO TID metoclopramide HCl 5 mg PO TIDAC mirtazapine 30 mg PO BEDTIME nicotine 1 patch transdermal Q24H 28 days MDD smoking nicotine (polacrilex) (Nicorette) 2 mg buccal Q2H PRN ondansetron 8 mg PO Q8H PRN oxycodone 5 mg PO Q4H PRN pantoprazole 40 mg PO BID potassium chloride ER 20 mEq PO BID sodium chloride 1,000 mg PO BID solifenacin 10 mg PO DAILY@0900 sucralfate (Carafate) 4 grams (4 x 1 gram) PO DAILY@1200 umeclidinium 62.5 mcg/actuation (Incruse Ellipta) 1 inh inhalation DAILY 30 days walker (Ultra-Light Rollator misc) As directed Tobacco use date assessed: 08/17/24 Fall risk assessment: 1 Fall in past year Last assessed Fall Risk: 08/17/24 Dental Screening Dental Screen Date: 08/17/24 Did you have a dental visit in the last 12 months?: Yes Did you have a dental problem in the last 6 months where you did not have access to dental care?: No Was dental information given to patient?: Patient has dentist HPI 4 Month F/U HPI Details Patient comes in today for her follow up visit She currently has 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 that was first diagnosed in August 2023 She was initially started on Carboplatin/etoposide with atezolizumab on 11/11/2023 and on maintenance atezolizumab every 3 weeks but PET-CT done on 06/07/2024 revealed (+) significant progression of her cancer now involving the right lung with extensive adenopathy She was then started on second-line agent (Topotecan) on 06/23/2024 but developer severe and life-threatening cytopenias after her 1st round of treatment despite growth factor support and dose reduction wherein she required twice a week blood transfusion of blood and platelets until she was able to recover At her request, in spite of advice from oncology that recommended against further treatment, she underwent further Tx with 50% reduction of her Tx dose but she developed worsening SOB and nausea and vomiting and ended up being admitted to [facility] Her Hgb dropped to 7.5 and she required 2 units of PRBC; her platelets [place] around [address] as well She has since been advised AGAINST any further treatment and has been recommended for hospice Patient states that she currently feels weak and notes (+) dizziness at times States that she keeps her oxygen on 24/7 and is trying to stay hydrated and eat as much as she can States that she still has bruises all over, likely a result of her thrombocytopenia following her recent chemotherapies She is currently requesting for Rx for nicotine gums as she states that she gets very nauseous with the lozenges and the patches causes her skin to break out in a rash She is currently very tearful and states that she is afraid of what is going to happen and wants to know how much more time does she have left She denies any fever or headaches Denies any exertional chest pains; she still has SAMUELS and recurrent coughing - states that she keeps her oxygen on all the time now and this helps with her breathing a lot States that she does not have much of an appetite but tries to eat something as often as she can tolerate Her Zofran helps with her nausea; she denies any abdominal pain No change in bowel habits noted She had some follow up labs done for oncology a few days ago [facility] Medical History (Updated 08/18/24 @ 05:18 by Sarthak Person MD) Smoker Encounter for hospice care discussion Respiratory failure with hypoxia Enterococcus, vancomycin-resistant Small cell lung cancer Small cell lung cancer Small cell lung cancer (~08/2023) MDD (major depressive disorder), recurrent episode, moderate Abnormal CT scan, chest Mass of right lung Lung mass Bronchitis Rectal prolapse 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 Nicotine dependence, cigarettes, uncomplicated Nonrheumatic mitral (valve) insufficiency Pulmonary nodule History of hepatitis C Osteopenia (~2011) COPD (chronic obstructive pulmonary disease) IV drug user Endocarditis of mitral valve (~11/2017) Mitral valve prolapse Mitral regurgitation Early satiety Paresthesia of left leg Allergic rhinitis Facet arthritis of lumbar region Cervical spondylosis Vitamin D deficiency Pure hypercholesterolemia Benign essential hypertension Depression GERD (gastroesophageal reflux disease) Anxiety Surgical History History of bronchoscopy (~2023) History of liver biopsy (~2009) History of partial colectomy (~2014) History of hysteroscopy (~2010) History of colonoscopy (~2017) Family History Father Internal bleeding Mother Medical history unknown Social History Household Members: None Household Members Other:: DAUGHTER LIVES DOWNSTAIRS IN TWO BEDROOM HOME Housing: House Housing Other:: lives alone with her cat Gizmo Are you a primary post acute care nurse to a significant other at home: No Do you presently have visiting nurse or other home services: Yes Alcohol intake: former Comment: chair alarm to bed Patient Tobacco Use Status: Current everyday Tobacco user Tobacco use type: Cigarette Cigarette Packs Per Day: 0.25 Years Smoked: 45 e-Cigarette/Vaping Use: Never Used Second Hand Smoke Exposure: No Substance Use Type: Marijuana Advance Directives Date on File: 09/23/23 service: No Current occupational status: unemployed Sexual orientation: Straight/Heterosexual Gender identity: Female Cognitive needs: No Hearing needs: No Vision needs: Yes Female Reproductive History Menstrual Age of Menarche: 14 Questionnaire PHQ-9 Over the last 2 weeks, how often have you been bothered by any of the following problems? 1. Little interest or pleasure in doing things: several days 2. Feeling down, depressed, or hopeless: several days 3. Trouble falling or staying asleep, or sleeping too much: several days 4. Feeling tired or having little energy: more than half the days 5. Poor appetite or overeating: several days 6. Feeling bad about yourself - or that you are a failure or have let yourself or your family down: not at all 7. Trouble concentrating on things, such as reading the newspaper or watching television: not at all 8. Moving or speaking so slowly that other people could have noticed. Or the opposite - being so fidgety or restless that you have been moving around a lot more than usual: not at all 9. Thoughts that you would be better off or of hurting yourself in some way: not at all Total score: 6 Depression Screening Interpretation: Positive Depression Screening Follow-up: Existing condition and In treatment Depression Screening Done: Yes 60210 - PHQ-9 Billing: Yes Source: Developed by Drs. Demar Wolf, Yocasta Slater, Mathew Juarez and colleagues, with an educational mendoza from [employer]. Thrive Questionnaire Date Thrive assessed: 08/17/24 I am a: Patient What is your living situation today?: I have a steady place to live Within the past 12 months, did the food you bought not last and you didn't have the money to get more?: I choose not to answer this question Within the past 12 months, did you worry whether your food would run out before you got money to buy more?: Never true Do you have trouble paying for medicines?: No Do you have trouble getting transportation to medical appointments?: No Do you have trouble paying your heating and electricity bill?: No Do you have trouble taking care of your child, family member or friend?: No Do you have trouble with day-to-day activities such as bathing, preparing meals, shopping, managing finances, etc.?: No Are you currently unemployed and looking for a job?: No Are you interested in more education?: No Please select the resources that you would like help with: None Currently or been in a relationship where the following occur: No concerns reported THRIVE Score: 0 AUDIT C Alcohol Use Questionnaire (AUDIT-C) 1. How often do you have a drink containing alcohol?: Never 3. How often do you have six or more drinks on one occasion?: Never Total Score: 0 Score Reviewed/Action Taken: Yes CHRISSIE-7 AMB Questionnaire CHRISSIE-7 Date CHRISSIE - 7 assessed: 08/17/24 Feeling nervous, anxious, or on edge: 1 = Several days Not being able to stop or control worryin = Not at all Worrying too much about different things: 1 = Several days Trouble relaxin = Not at all Being so restless that it is hard to sit still: 1 = Several days Becoming easily annoyed or irritable: 1 = Several days Feeling afraid as if something awful might happen: 0 = Not at all Total CHRISSIE-7 score (0-4 normal; 5-9 mild; 10-14 moderate; 15-21 severe): 4 Source: Developed by Drs. Demar Wolf, Yocasta Slater, Mathew Juarez and colleagues, with an educational mendoza from [employer]. Review of Systems Const Denies chills, Reports difficulty sleeping, Reports fatigue, Denies fever(s), Denies headache(s), Reports poor appetite and Reports weight loss ENT Denies dysphagia, Reports dizziness (at times), Denies otalgia, Denies headache(s), Denies neck pain, Denies odynophagia and Denies sore throat Card Denies chest pain, Denies palpitations and Reports dyspnea on exertion Resp Denies chest congestion, Reports cough (frequent - coughs up clear to whitish phlegm at times), Denies hemoptysis, Denies pain with cough, Reports dyspnea on exertion and Denies wheezing GI Denies abdominal pain, Denies hematochezia, Denies constipation, Denies dysphagia, Denies heartburn, Reports fecal incontinence (at times), Reports loose stools (recurrent), Reports nausea, Denies odynophagia and Denies vomiting Denies difficulty voiding, Denies nocturia, Denies dysuria and Denies urinary urgency Musc Reports back pain (over the lumbar spine - chronic) and Denies neck pain Skin/Breast Denies rash Neuro Reports dizziness (at times), Denies headache(s) and Reports paresthesias (in the left leg) Psych Reports anxiety and Reports depression Endo Reports fatigue and Denies palpitations Aller/Immun Denies wheezing Physical exam (Primary Care) Vital Signs: Last Vital Signs Pulse 100 08/17/24 14:05 BP 102/54 L 08/17/24 14:05 Pulse Ox 93 08/17/24 14:05 Oxygen Delivery Method Room Air 08/17/24 14:05 Tobacco/Smoking Status: Tobacco use Status Tobacco use date assessed 08/17/24 08/17/24 14:08 Patient Tobacco Use Status Current everyday Tobacco 08/17/24 14:08 Tobacco use type Cigarette 08/17/24 14:08 e-Cigarette/Vaping Use Never Used 08/17/24 14:08 PHQ-9: PHQ-9 Score PHQ-9: Total score 6 08/17/24 14:26 Depression Screening Interpretation: Positive Depression Screening Follow-up: Existing condition and In treatment Thrive Assessment: Date of Thrive Assessment Date Thrive assessed 08/17/24 08/17/24 14:08 Currently or been in a relationship where the following occur: No concerns reported Const General: no acute distress and alert Nutritional Appearance: cachectic HENMT Ears: TM's normal bilaterally and EAC's normal Throat: Yes posterior oropharynx normal and Yes tonsils normal (no TP congestion noted) Neck Neck: Yes supple and No lymphadenopathy Thyroid: Thyroid normal Resp Other: patient currently has her oxygen on Auscultation: no rales, rhonchi (scattered) throughout, no wheezes and diminished lung sounds bilateral Cardio Rate: regular rate Rhythm: regular rhythm Heart sounds: Murmur heart sound present systolic mid, III/ and at the apex GI Palpation (GI): Soft to palpation and nontender Auscultation: normal bowel sounds Back/Spine/Pelvis Cervical Spine: Cervical spine tenderness Thoracic/Lumbar Spine: lumbar spinal tenderness Skin Rashes: no rashes Extrem General: Yes no clubbing, cyanosis or edema Results Reviewed Results Reviewed: Laboratory Tests 08/15/24 09:15 WBC 10.1 Hgb 10.8 L Hct 32.6 L Plt Count 114 L D Sodium 140 Potassium 4.0 Creatinine 0.55 Estimated GFR > 60 Random Glucose 124 H Calcium 9.1 AST 27 ALT 12 Total Protein 6.6 Albumin 3.8 Coding Level of Care Code Est Pt Level 4 (56289) Diagnoses Small cell carcinoma of right lung, unspecified part of lung C34.91 Laterality: right Lung location: unspecified part of lung Hyponatremia E87.1 Pulmonary emphysema, unspecified emphysema type J43.9 COPD type: emphysema Emphysema type: unspecified Pure hypercholesterolemia E78.00 Mitral valve prolapse I34.1 Erosive gastritis K29.60 Iron deficiency anemia secondary to inadequate dietary iron intake D50.8 Anemia type: iron deficiency Iron deficiency anemia type: inadequate dietary iron intake Allergic rhinitis, unspecified seasonality, unspecified trigger J30.9 Allergic rhinitis trigger: unspecified Allergic rhinitis seasonality: unspecified Vitamin D deficiency E55.9 Anxiety F41.9 Episode of recurrent major depressive disorder, unspecified depression episode severity F33.9 Depression Type: major depressive disorder Major depression recurrence: recurrent Active/Remission status: currently active Major depression episode severity: unspecified Smoker F17.200 Additional Codes PHQ-9 - 23926 - PHQ-9 Billing: Yes ([id number]) Assessment & Plan Assessment & Plan (1) Small cell lung cancer: Onset Date: ~08/2023 Comment: (Right Upper Lobe - Clinical stage T3 N2, Stage IIIB - Dx 08/2023) Code(s): C34.90 - Malignant neoplasm of unspecified part of unspecified bronchus or lung Category: Medical Qualifiers: Laterality: right Lung location: unspecified part of lung Qualified Code(s): C34.91 - Malignant neoplasm of unspecified part of right bronchus or lung Plan: Her lung cancer was first diagnosed in August 2023 She was initially started on Carboplatin/etoposide with atezolizumab on 11/11/2023 and on maintenance atezolizumab every 3 weeks but PET-CT done on 06/07/2024 revealed (+) significant progression of her cancer now involving the right lung with extensive adenopathy She was then started on second-line agent (Topotecan) on 06/23/2024 but developer severe and life-threatening cytopenias after her 1st round of treatment despite growth factor support and dose reduction wherein she required twice a week blood transfusion of blood and platelets until she was able to recover At her request, in spite of advice from oncology that recommended against further treatment, she underwent further Tx with 50% reduction of her Tx dose but she developed worsening SOB and nausea and vomiting and ended up being admitted to [facility] Her Hgb dropped to 7.5 and she required 2 units of PRBC; her platelets [place] down to around [address]6462 as well She has since been advised AGAINST any further treatments and has been recommended for hospice evaluation and palliative care (2) Hyponatremia: Code(s): E87.1 - Hypo-osmolality and hyponatremia Category: Medical Plan: Corrected - her most recent serum sodium level was normal at 140 on her labs done a few days ago Continue NaCl tab 1 gm BID Her previous Rx (Escitalopram) also likely contributed to this Follow up with nephrology as scheduled (3) COPD (chronic obstructive pulmonary disease): Comment: Patient does have chronic obstructive pulmonary disease related to her lifelong smoking. She is doing fairly well with her current regimen. Code(s): J44.9 - Chronic obstructive pulmonary disease, unspecified Category: Medical Qualifiers: COPD type: emphysema Emphysema type: unspecified Qualified Code(s): J43.9 - Emphysema, unspecified Plan: She is currently still on oxygen inhalation at 2 LPM at rest and 3 LPM with activity Continue Incruse Ellipta 62.5 mcg 1 inhalation QD and Albuterol HFA 2 inhalations Q 6 hours PRN Follow up with pulmonary as scheduled (4) Pure hypercholesterolemia: Code(s): E78.00 - Pure hypercholesterolemia, unspecified Category: Medical Plan: She used to be on Simvastatin 40 mg QD but at this point in time, this is no longer a concern (5) Mitral valve prolapse: Code(s): I34.1 - Nonrheumatic mitral (valve) prolapse Category: Medical Plan: Transesophageal echocardiogram done on 10/03/20 showed normal LV systolic and diastolic function, moderately severe MR and severe mitral prolapse Repeat echocardiogram done in 04/2022 and on 10/14/2022 revealed no significant changes - ?normal LV systolic function, with mildly dilated left atrium, prolapse of the middle posterior scallop with moderately severe eccentric mitral regurgitation, normal RV systolic pressure and no gross pericardial effusion Patient currently has no clinical signs of heart failure although she continues to complain of?some shortness of breath with exertion? She will need endocarditis prophylactic prior to any dental work? (6) Erosive gastritis: Code(s): K29.60 - Other gastritis without bleeding Category: Medical Plan: Continue Pantoprazole 40 mg BID and Sucralfate 4 gm QD at noon (7) Anemia: Code(s): D64.9 - Anemia, unspecified Category: Medical Qualifiers: Anemia type: iron deficiency Iron deficiency anemia type: inadequate dietary iron intake Qualified Code(s): D50.8 - Other iron deficiency anemias Plan: S/P blood transfusions over the past couple of months Will continue to monitor her CBC regularly Follow up with hematology as scheduled (8) Allergic rhinitis: Comment: , MILD CHRONIC, RELATIVELY CONTROLLED. Code(s): J30.9 - Allergic rhinitis, unspecified Category: Medical Qualifiers: Allergic rhinitis trigger: unspecified Allergic rhinitis seasonality: unspecified Qualified Code(s): J30.9 - Allergic rhinitis, unspecified Plan: Continue Fluticasone 50 mcg nasal spray QD PRN and Loratadine 10 mg QD PRN (9) Vitamin D deficiency: Code(s): E55.9 - Vitamin D deficiency, unspecified Category: Medical Plan: Continue Vitamin D3 2000 units QD (10) Anxiety: Code(s): F41.9 - Anxiety disorder, unspecified Category: Medical Plan: Continue Clonazepam 0.5 mg BID PRN and Hydroxyzine 50 mg Q HS (11) Depression: Code(s): F32.9 - Major depressive disorder, single episode, unspecified Category: Medical Qualifiers: Depression Type: major depressive disorder Major depression recurrence: recurrent Active/Remission status: currently active Major depression episode severity: unspecified Qualified Code(s): F33.9 - Major depressive disorder, recurrent, unspecified Plan: Continue Mirtazapine 30 mg Q HS (12) Smoker: Code(s): F17.200 - Nicotine dependence, unspecified, uncomplicated Category: Social Hx Plan: She is currently still smoking about 5 cigarettes a day States that she could not tolerate nicotine patches (rash) and feels nauseous when she uses nicotine lozenges and is currently asking for Rx for nicotine gum Per her request, I will send in Rx for Nicorette 2 mg Q 2 hours PRN but in her current situation wherein her lung cancer is terminal and she has failed to tolerate any of her treatments, we are not going to continue to advise her on smoking cessation anymore Plan Follow up in 3 months, health permitting Medications: New nicotine (polacrilex) (Nicorette) 2 mg buccal Q2H PRN 120 ea 2RF nicotine cravings nicotine (polacrilex) (Nicorette) 2 mg buccal Q2H PRN 120 ea 2RF nicotine cravings nicotine (polacrilex) (Nicorette) 2 mg buccal Q2H PRN 120 ea 2RF nicotine cravings
[2024-08-17 14:05] VITALS: BP 102/54; PULSE 100; O2SAT 93
== END 2024-08-17 14:27 | disposition home or self-care (01) ==
LOC: HO.HMCH 13:53
PROVIDERS: PCP Internal Medicine; Visit Provider Internal Medicine
DX: C34.91 Malignant neoplasm of unspecified part of right bronchus or lung (principal); E87.1 Hypo-osmolality and hyponatremia; J43.9 Emphysema, unspecified; E78.00 Pure hypercholesterolemia, unspecified; I34.1 Nonrheumatic mitral (valve) prolapse; K29.60 Other gastritis without bleeding; D50.8 Other iron deficiency anemias; J30.9 Allergic rhinitis, unspecified; E55.9 Vitamin D deficiency, unspecified; F41.9 Anxiety disorder, unspecified; F33.9 Major depressive disorder, recurrent, unspecified; F17.200 Nicotine dependence, unspecified, uncomplicated

== ENCOUNTER → 2024-08-17 13:52 | Outpatient (BNVA) | payer OTHER, SELFPAY | PROVIDERS: PCP Internal Medicine; Visit Provider Internal Medicine | DX: E87.1 Hypo-osmolality and hyponatremia (principal); C34.91 Malignant neoplasm of unspecified part of right bronchus or lung; J43.9 Emphysema, unspecified; E78.00 Pure hypercholesterolemia, unspecified; I34.1 Nonrheumatic mitral (valve) prolapse; K29.60 Other gastritis without bleeding; D50.8 Other iron deficiency anemias; J30.9 Allergic rhinitis, unspecified; E55.9 Vitamin D deficiency, unspecified; F41.9 Anxiety disorder, unspecified; F33.9 Major depressive disorder, recurrent, unspecified; F17.210 Nicotine dependence, cigarettes, uncomplicated; Z99.81 Dependence on supplemental oxygen; Z79.899 Other long term (current) drug therapy | CPT/HCPCS: 96127; 99212 ==

== ENCOUNTER 2024-08-22 10:35 | Outpatient (REF) | payer OTHER, SELFPAY ==
--- OUTSIDE RECORDS SUMMARY | 2024-08-22 11:16 | XMS_ITS | Encounter Summary ---
Author Organization [facility] Address [address] [place] [address] Care Team Providers Care Industrial Electrical Engineer Name Role Phone Sarthak Person MD Primary Care Provider + [phone] Encounter Details Date Type Department Care Team (Late st Contact Info) Description 07/29/2024 Lab Requisition [facility] Main Lab [address] [facility] [place] [id number] Ly Johnson MD [address] [address] Malignant neoplasm of unspecified part of unspecified [...] organism documented in this encounter Care Teams Industrial Electrical Engineer Relationship Specialty Start Date End Date Sarthak Person MD [address] [place] [address] PCP - General Internal Medicine 02/06/15 documented as of this encounter
--- OUTSIDE RECORDS SUMMARY | 2024-08-22 11:16 | XMS_ITS | Continuity of Care Document ---
Author Organization [facility] [place] [facility] Address [address] [place] [address] Care Team Providers Care Waste Minimization Technician Name Role Phone HIM CCA OTHER GLEN KELLER Primary Care Provider Assessment Encounter Date Assessment Date Assessment LastModified by Organization Details LastModified Time 08/18/2024 08/18/2024 I provided real -time medical direction via phone for this encounter and was available for additional phone-based assistance as needed. I have reviewed and agree with the Assessment and Plan as documented by the Tower Technician. Patient given the opportunity to ask questions. Our service contacted for an assessment of: hematoma As per above, patient with very fragile skin and with significant debility with cancer, calls this service as she has developed a hematoma after riding in the car and having a seatbelt rubbing on her chest wall. She describes it as painful when she touches it. She associates it with mild trauma. She states she bruises very easily. Per user experience researcher on the scene, Vital signs are stable patient is afebrile. Please see uploaded pictures Impression: hematoma Plan: advised to apply ice over heat if she experiences discomfort. Gave timeline for expected resolution. Avoid aspirin and nonsteroidals. Allergies: Reviewed PCP f/u: We discussed the diagnostic uncertainty of home visits and the risk associated with this. In this case, the patient and I felt this to be an acceptable and reasonable amount of risk given the benefit of avoiding an ED visit. We discussed the need to seek care urgently/emergentl y in the setting of any new or worsening serious symptoms, particularly fever chills lightheadedness altered mental status [email or web address] Not available 08/18/2024 21:35:39 Plan of Treatment Reminders Order Date Submit [...] Name and Address Organization Details Recorded Time 64363 morphine medicatio n Not available Not available Not available 07/26/2024 7052 RxNorm Not Available [facility] - production 5 15:36:37 Medications Name Sig Start Date Stop [...] Available No t Available Vitals Date Recorded Respiratory rate Heart rate Body temperature Oxygen saturation Oxygen saturation in Arterial blood by Pulse oximetry Systolic blood pressure Diastolic blood pressure Provider Name and Address Organization Details Last Updated DateTime 5 18 /min 106 /min 98 [degF] 93 % 93 % 150 mm[Hg] 80 mm[Hg] Not Available [facility] production 20:25:25 Social History None recorded. Functional Status None recorded. Mental Status None recorded. Family History Nothing Reported. Medical History No medical history recorded. Gynecological HistoryNo gynecological history recorded. Obstetrics History GPAL:G 0 P 0 0 0 0 Past Encounters Encounter ID Performer Location Encounter Start Date Encounter Closed Date Diagnosis/Indication Diagnosis SNOMED-CT Code Diagnosis ICD10 Code Diagnosis Note [id number] Grace Sanchez MD Main - [address] [phone] 07/26/2024 16:33:24 07/26/2024 20:22:11 Pneumonia 162256972 J18.9 [id number] Ирина Long MD Main - [address] [id number] 08/18/2024 20:25:21 08/18/2024 21:55:54 Hematoma 058874707 T14.8XXA Health Concerns Section Related Observation LastModified by Organization Detai ls LastModified Time None Recorded Concern Status LastModified by Organization Details LastModified Time None Recorded Payers Encounter Date Sequence Insurance Name Policy Number Policy Dong Covered Member ID Dong Member ID Guarantor Name 08/18/2024 1 [facility] - DOS ON OR AFTER 2022 - DUAL ELIGIBLE - ALF OPTIONS AND ONE CARE (MEDICARE REPLACEMENT/ADV ANTAGE - HMO) Sarah Medina [id number] Sarah Medina Notes Date Note Type Note Provider Name and Address Organization Details Recorded Time 08/18/2024 text/html [facility] Nurse Triage Notes (Елена Hernandez): Reason For Request: Pt reporting severe discolored swelling bump above her right breast Chief Complaints: Weakness PMH: Cancer, COPD/Asthma, Hypertension PMH Reviewed at 08/18/2024 - 18:08 Allergies Reviewed at 08/18/2024 - 18:08 Comments: 63 y.o female complains of mass on right breast Patient with small cell lung CA, stopped chemo and radiation 2 weeks ago, as she has mets and treatment was harming her more than effective. Patient is on 3L nc continuously. Patient was in the car and noticed about 20 minutes ago a large, golf ball size lump on her right breast, is it black/blue, she denies any trauma, does not take any blood thinners. It is hard to palpate, +pain. Patient scared and anxious. She would like area evaluated. RED flags discussed. I provided information on the mobile health provider response time and advised the patient and/or caregiver to monitor reported signs and symptoms. I discussed the warning signs of when to seek emergency care. ................... ................... ................... ................... ................... ................... ................... ........ Tower Technician Note From Graham Resendiz: Pt seen for complaint of bruise to her chest. Pt sexton x 4. Pt presents with an approx 2 inch x 3 inch to her R chest. Pt reports she noticed it this evening when riding in a vehicle and the area was tender with the seatbelt on it. Pt reports she was moving some large boxes earlier in the day with them leaning on her chest and believes that may be the cause. Pt denies any other recent trauma, fall or injury. Pt denies all other complaints. Pt end stage cancer and recently stopped chemo as she will be following up with hospice. Pt reports she only wishes to have guidance on how to address the bruise. Picture of bruised area uploaded for [facility] viewing. [facility] contacted and advised of Pt complaint, findings & presentation. [facility] agrees that Pt should treat the area with ice / cool pack for 48 hours and then heat. [facility] has no further orders. Pt advised of [facility] recommendations. Pt understanding and agreeable to it. Pt has no further questions or concerns. Call closed. ................... ................... ................... ................... ................... ................... ................... ........ [facility] Consulted: Ирина Long ................... ................... ................... ................... ................... ................... ................... ........ Disposition: Fulfilled Ирина Long MD [address] [facility],[address], [place], [address], [employer] ReporterNORBERT 08/18/2024 21:35:47 OBGyn Episode No OBEpisode recorded.
--- OUTSIDE RECORDS SUMMARY | 2024-08-22 11:16 | XMS_ITS | Data Portability ---
Author Organization [facility] [place] [facility] [employer] Address [address] [place] [address] Care Team Providers Care Career Services Manager Name Role Phone HIM CCA OTHER GLEN KELLER Primary Care Provider [phone] Assessment Encounter Date Assessment Date Assessment LastModified [...] care plan [email or web address] Not available 07/26/2024 18:14:25 08/18/2024 08/18/2024 I provided real -time medical direction via phone for this encounter and was available for additional phone-based assistance as needed. I have reviewed and agree with the Assessment and Plan as documented by the Transport Driver. Patient given the opportunity to ask questions. [...] She states she bruises very easily. Per manager documentation on the scene, Vital signs are stable [...] Name and Address Organization Details Recorded Time 95374 morphine medicatio n Not available Not available Not available 07/26/2024 7043 RxNorm Not Available [facility] - production 5 [...] % 99 % 2 L/min 98.4 [degF] 07265.4 48 g 88 /min 18 /min 156 mm[Hg] 86 mm[Hg] Not Available [facility] - production 4 19:23:28 Date Recorded Respiratory rate Heart rate Body temperature Body weight Body height Oxygen saturation Oxygen saturation in Arterial blood by Pulse oximetry Systolic blood pressure Diastolic blood pressure Provider Name and Address Organization Details Last Updated DateTime 5 20 /min 110 /min 98 [degF] 26987.8 g 152.4 cm 98 % 98 % 164 mm[Hg] 90 mm[Hg] Not Available [facility] 16:33:26 Date Recorded Respiratory rate Heart rate Body temperature Oxygen saturation Oxygen saturation in Arterial blood by Pulse oximetry Systolic blood pressure Diastolic blood pressure Provider Name and Address Organization Details Last Updated DateTime 18 /min 106 /min 98 [degF] 93 % 93 % 150 mm[Hg] 80 mm[Hg] Not Available [facility] 20:25:25 Social History None recorded. Functional Status None recorded. Mental Status None recorded. Family History Nothing Reported. Medical History No medical history recorded. Gynecological HistoryNo gynecological history recorded. Obstetrics History GPAL:G 0 P 0 0 0 0 Past Encounters Encounter ID Performer Location Encounter Start Date Encounter Closed Date Diagnosis/Indication Diagnosis SNOMED-CT Code Diagnosis ICD10 Code Diagnosis Note [id number] PK AZAR MD Main - [facility] [address] [place] [phone] 12/17/2023 19:23:25 12/17/2023 21:29:56 Anxiety [id number] F41.9 Painless r ectal bleeding 784716472 K62.5 [id number] Grace Sanchez MD Main - [facility] [address] [place] [phone] 07/26/2024 16:33:24 07/26/2024 20:22:11 Pneumonia [id number] J18.9 [id number] Ирина Long MD Main - [facility] [address] [place] [phone] 08/18/2024 20:25:21 08/18/2024 21:55:54 Hematoma [id number] T14.8XXA Health Concerns Section Related Observation LastModified by Organization Detai ls LastModified Time None Recorded Concern Status LastModified by Organization Details LastModified Time None Recorded Advance Directives Directive None Recorded Payers Insurance Date Sequence Insurance Name Policy Number Policy Dong Covered Member ID Dong Member ID Guarantor Name 08/18/2024 1 [facility] - DOS ON OR AFTER 2022 - DUAL ELIGIBLE - RESIDENTIAL OPTIONS AND ONE CARE (MEDICARE REPLACEMENT/ADV ANTAGE - HMO) Sarah Medina [id number] Sarah Medina Notes Date Note Type Note [...] ...................... ...................... ...................... ...................... ...................... ...................... ......... Transport Driver Note From Kenroy Cole: Pt co anxiety [...] ...................... ......... Disposition: Fulfilled PK AZAR MD [address] [place] [address],[address], [place], [address], [facility] 12/17/2023 20:37:01 07/26/2024 text/html HPI: Additional PMH:Rectal [id number] y.o female complains of Breathing ProblemsPt's health care facility administrator calling reporting pt was seen at [facility] earlier today for SOB. Pt reports chest [...] Carrasquillo): Reason For Request: Patient was at [facility] today at 1pm, - Wants help in [...] ...................... ...................... ...................... ...................... ...................... ...................... ......... Transport Driver Note From Deniz Olsen: Patient alert and [...] soft nontender extremities unremarkable. Good skin turgor. [facility] recommend supportive care and to call 911 to return to hospital if needed. Patient advises she? l l be able to wait for transportation to rehab facility tomorrow. Patient demonstrates understanding of care and plan. Patient has prescribed medication? s on hand. Red flags, patient education discussed. ...................... ...................... ...................... ...................... ...................... ...................... ......... [facility] Consulted: Grace Sanchez ...................... ...................... ...................... ...................... ...................... ...................... ......... Disposition: Fulfilled Grace Sanchez MD [address] [facility],[address], [place], [address], [employer] 07/26/2024 18:15:07 08/18/2024 text/html CRC Nurse Triage Notes (Елена Hernandez): Reason For Request: Pt reporting severe discolored swelling bump above her right breast Chief Complaints: Weakness PMH: Cancer, COPD/Asthma, Hypertension PMH Reviewed at 08/18/2024 - : Allergies Reviewed at 08/18/2024 - :08 Comments: 63 y.o female complains of mass [...] ...................... ...................... ...................... ...................... ...................... ...................... ......... Transport Driver Note From Graham Resendiz: Pt seen for [...] bruise. Picture of bruised area uploaded for [facility] viewing. [facility] contacted and advised of Pt complaint, findings & presentation. [facility] agrees that Pt should treat the area with ice / cool pack for 48 hours and then heat. [facility] has no further orders. Pt advised of [facility] recommendations. Pt understanding and agreeable to it. Pt has no further questions or concerns. Call closed. ...................... ...................... ...................... ...................... ...................... ...................... ......... [facility] Consulted: Ирина Long ...................... ...................... ...................... ...................... ...................... ...................... ......... Disposition: Fulfilled Ирина Long MD [address] [facility],[address], [place], [address], [facility] 08/18/2024 21:35:47 OBGyn Episode No OBEpisode recorded.
--- OUTSIDE RECORDS SUMMARY | 2024-08-22 11:16 | XMS_ITS | Clinical Summary ---
Author Organization [address] [facility] Address [address] [place] [address] Phone Care Team Providers Care Supervisor [employer] Name Role Phone Sarthak Person MD Primary Care Provider Encounters Date Type Department Care Team Description 07/29/2024 Lab Requisition [facility] [address] [place] [phone] Ly Johnson MD Malignant neoplasm of unspecified part of unspecified bronchus or lung ([facility] V24, [facility] V28); Pneumonia, unspecified organism 07/28/2024 Lab Requisition [facility] [address] [place] [address] Ly Johnson MD Malignant neoplasm of unspecified part of unspecified bronchus or lung ([facility] V24, [facility] V28); Pneumonia, unspecified organism from Last [...] Cancer Screening: Colonoscopy 05/06/2023 Depression Screening 05/06/2023 Hepatitis C Screening 05/06/2023 Medicare Annual Wellness Visit 05/06/2023 Osteoporosis Screening (Bone Density Screening) 05/06/2023 Social Influencers of Health Screening 05/06/2023 Falls Risk Assessment 08/21/2024 Influenza Vaccine (Season Ended) 2024 RSV Immunization [...] as clinically indicated. 07/28/2024 1:30 PM EDT [facility] Blood Venous blood specimen / Unknown Venipuncture / Unknown 07/28/2024 6:39 AM EDT 07/28/2024 8:04 AM EDT us Ly Johnson MD LAB BLOOD ORDERABLES Fin al Result [facility] [address] [place] [address], * (ABNORMAL) Complete blood count (07/28/2024 6:39 AM EDT) WBC 9.5 4.8 - 10.8 K/mcL LAB HEMETOLOGY METHOD 07/28/2024 1:33 PM [facility] RBC 4.50 3.80 - 4.80 M/mcL LAB HEMETOLOGY METHOD 07/28/2024 1:33 PM [facility] Hemoglobin 13.7 11.5 - 16.0 g/dL LAB HEMETOLOGY METHOD 07/28/2024 1:33 PM [facility] Hematocrit 40.5 35.0 - 47.0 % LAB HEMETOLOGY METHOD 07/28/2024 1:33 PM [facility] MCV 90.2 79.0 - 98.0 FL LAB HEMETOLOGY METHOD 07/28/2024 1:33 PM [facility] MCH 30.5 27.0 - 32.0 pcg LAB HEMETOLOGY METHOD 07/28/2024 1:33 PM [facility] MCHC 33.8 32.0 - 37.0 g/dL LAB HEMETOLOGY METHOD 07/28/2024 1:33 PM [facility] RDW 16.0(H) 11.0 - 15.0 % LAB HEMETOLOGY METHOD 07/28/2024 1:33 PM [facility] Platelets 31(L) 130 - 400 K/mcL LAB HEMETOLOGY METHOD 07/28/2024 1:33 PM [facility] Comment:reviewed by slide MPV 9.8 7.0 - 11.0 FL LAB HEMETOLOGY METHOD 07/28/2024 1:33 PM [facility] NRBC 0.0 <1.0 % LAB HEMETOLOGY METHOD 07/28/2024 1:33 PM [facility] NRBC Absolute 0.00 <0.10 K/mcL LAB HEMETOLOGY METHOD 07/28/2024 1:33 PM [facility] Blood Venous blood specimen / Unknown Venipuncture / Unknown 07/28/2024 6:39 AM EDT 07/28/2024 8:04 AM EDT Ly Johnson MD LAB BLOOD ORDERABLES Omar curt Result - Final [facility] [address] [place] [address], [place] [phone] * (ABNORMAL) Comprehensive metabolic panel (07/28/2024 6:39 AM EDT) Sodium 129(L) 133 - 145 mmol/L LAB CHEMISTRY METHOD 07/28/2024 10:12 AM [facility] Potassium 2.9(LL) 3.5 - 5.5 mmol/L LAB CHEMISTRY METHOD 07/28/2024 10:12 AM [facility] Chloride 92(L) 96 - 110 mmol/L LAB CHEMISTRY METHOD 07/28/2024 10:12 AM [facility] CO2 27 21 - 32 mmol/L LAB CHEMISTRY METHOD 07/28/2024 10:12 AM [facility] Anion Gap 10 3 - 11 LAB CHEMISTRY METHOD 07/28/2024 10:12 AM [facility] Glucose 105(H) 70 - 100 mg/dL LAB CHEMISTRY METHOD 07/28/2024 10:12 AM [facility] BUN 13 5 - 25 mg/dL LAB CHEMISTRY METHOD 07/28/2024 10:12 AM [facility] Creatinine 0.37(L) 0.50 - 1.10 mg/dL LAB CHEMISTRY METHOD 07/28/2024 10:12 AM [facility] eGFR 113 >=60 mL/min/1. 73m2 LAB CHEMISTRY METHOD 07/28/2024 10:12 AM [facility] Comment:Calculation based on the??Chronic Kidney Disease Epidemiology Collaboration (CKD-EPI) equation refit??without adjustment for race. BUN/Creatinine Ratio 35.1 LAB CHEMISTRY METHOD 07/28/2024 10:12 AM [facility] Calcium 9.2 8.5 - 10.5 mg/dL LAB CHEMISTRY METHOD 07/28/2024 10:12 AM [facility] AST (SGOT) 11 10 - 42 unit/L LAB CHEMISTRY METHOD 07/28/2024 10:12 AM [facility] ALT (SGPT) 13 10 - 60 unit/L LAB CHEMISTRY METHOD 07/28/2024 10:12 AM [facility] Alkaline Phosphatase 110 42 - 121 unit/L LAB CHEMISTRY METHOD 07/28/2024 10:12 AM [facility] Total Protein 7.1 6.0 - 8.0 g/dL LAB CHEMISTRY METHOD 07/28/2024 10:12 AM [facility] Albumin 3.9 3.2 - 5.0 g/dL LAB CHEMISTRY METHOD 07/28/2024 10:12 AM [facility] Total Bilirubin 0.5 0.0 - 1.4 mg/dL LAB CHEMISTRY METHOD 07/28/2024 10:12 AM [facility] Blood Venous blood specimen / Unknown Venipuncture / Unknown 07/28/2024 6:39 AM EDT 07/28/2024 8:04 AM EDT us Ly Johnson MD LAB BLOOD ORDERABLES Fin al Result [facility] [address] [place] [address], [place] [phone] from Last 3 Months Insurance MEDICAID - [place] MEDICARE Care Teams Supervisor [employer] Relationship Specialty Start Date End Date Sarthak Person MD [address] [place] [address] [address] [place] PCP - General Internal Medicine 02/06/15
--- OUTSIDE RECORDS SUMMARY | 2024-08-22 11:16 | XMS_ITS | Encounter Summary ---
Author Organization [facility] Address [address] [place] [address] Care Team Providers Care Paper Products Supervisor Name Role Phone Sarthak Person MD Primary Care Provider + [phone] Encounter Details Date Type Department Care Team (Late st Contact Info) Description 07/28/2024 Lab Requisition [facility] - Main Lab [address] [facility] [place] [phone] Ly Johnson MD [address] [address] Malignant neoplasm of unspecified part of unspecified [...] of unspecified bronchus or lung (CMS/HCC V24, [facility] V28) Pneumonia, unspecified organism COMPREHENSIVE METABOLIC PANEL Routine 07/28/2024 6:39 AM EDT Malignant neoplasm of unspecified part of unspecified bronchus or lung ([facility] V24, [facility] V28) Pneumonia, unspecified organism documented in this encounter Results * Pathology review, blood smear (07/28/2024 6:39 AM EDT) Pathologist [facility] Pathologist Review Blood Smear Thrombocytopenia confirmed (no platelet clumps); smear not diagnostic of etiology. Clinical correlation and follow-up is recommended, including follow-up CBC to evaluate for persistence as clinically indicated. 07/28/2024 1:30 PM EDT [facility] Blood Venous blood specimen / Unknown Venipuncture / Unknown 07/28/2024 6:39 AM EDT 07/28/2024 8:04 AM EDT us Ly Johnson MD LAB BLOOD ORDERABLES Fin al Result [facility] [address] [place] [address], * (ABNORMAL) Comprehensive metabolic panel (07/28/2024 6:39 AM EDT) Sodium 129(L) 133 - 145 mmol/L LAB CHEMISTRY METHOD 07/28/2024 10:12 AM EDT [facility] Potassium 2.9(LL) 3.5 - 5.5 mmol/L LAB CHEMISTRY METHOD 07/28/2024 10:12 AM EDT [facility] Chloride 92(L) 96 - 110 mmol/L LAB CHEMISTRY METHOD 07/28/2024 10:12 AM EDT [facility] CO2 27 21 - 32 mmol/L LAB CHEMISTRY METHOD 07/28/2024 10:[address] [facility] Anion Gap 10 3 - 11 LAB CHEMISTRY METHOD 07/28/2024 10:[address] [facility] Glucose 105(H) 70 - 100 mg/dL LAB CHEMISTRY METHOD 07/28/2024 10:[address] [facility] BUN 13 5 - 25 mg/dL LAB CHEMISTRY METHOD 07/28/2024 10:[address] [facility] Creatinine 0.37(L) 0.50 - 1.10 mg/dL LAB CHEMISTRY METHOD 07/28/2024 10:[address] [facility] eGFR 113 >=60 mL/min/1. 73m2 LAB CHEMISTRY METHOD 07/28/2024 10:[address] [facility] Comment:Calculation based on the??Chronic Kidney Disease Epidemiology Collaboration (CKD-EPI) equation refit??without adjustment for race. BUN/Creatinine Ratio 35.1 LAB CHEMISTRY METHOD 07/28/2024 10:[address] [facility] Calcium 9.2 8.5 - 10.5 mg/dL LAB CHEMISTRY METHOD 07/28/2024 10:[address] [facility] AST (SGOT) 11 10 - 42 unit/L LAB CHEMISTRY METHOD 07/28/2024 10:[address] [facility] ALT (SGPT) 13 10 - 60 unit/L LAB CHEMISTRY METHOD 07/28/2024 10:[address] [facility] Alkaline Phosphatase 110 42 - 121 unit/L LAB CHEMISTRY METHOD 07/28/2024 10:[address] [facility] Total Protein 7.1 6.0 - 8.0 g/dL LAB CHEMISTRY METHOD 07/28/2024 10:[address] [facility] Albumin 3.9 3.2 - 5.0 g/dL LAB CHEMISTRY METHOD 07/28/2024 10:[address] [facility] Total Bilirubin 0.5 0.0 - 1.4 mg/dL LAB CHEMISTRY METHOD 07/28/2024 10:12 AM EDT [facility] Blood Venous blood specimen / Unknown Venipuncture / Unknown 07/28/2024 6:39 AM EDT 07/28/2024 8:04 AM EDT us Ly Johnson MD LAB BLOOD ORDERABLES Fin al Result [facility] [address] [place] [address], * (ABNORMAL) Complete blood count (07/28/2024 6:39 AM EDT) WBC 9.5 4.8 - 10.8 K/mcL LAB HEMETOLOGY METHOD 07/28/2024 1:33 PM EDT [facility] RBC 4.50 3.80 - 4.80 M/[facility] LAB HEMETOLOGY METHOD 07/28/2024 1:33 PM EDT [facility] Hemoglobin 13.7 11.5 - 16.0 g/dL LAB HEMETOLOGY METHOD 07/28/2024 1:33 PM EDT [facility] Hematocrit 40.5 35.0 - 47.0 % LAB HEMETOLOGY METHOD 07/28/2024 1:33 PM EDT [facility] MCV 90.2 79.0 - 98.0 FL LAB HEMETOLOGY METHOD 07/28/2024 1:33 PM EDT [facility] MCH 30.5 27.0 - 32.0 pcg LAB HEMETOLOGY METHOD 07/28/2024 1:33 PM EDT [facility] MCHC 33.8 32.0 - 37.0 g/dL LAB HEMETOLOGY METHOD 07/28/2024 1:33 PM EDT [facility] RDW 16.0(H) 11.0 - 15.0 % LAB HEMETOLOGY METHOD 07/28/2024 1:33 PM EDT [facility] Platelets 31(L) 130 - 400 K/mcL LAB HEMETOLOGY METHOD 07/28/2024 1:33 PM EDT [facility] Comment:reviewed by slide MPV 9.8 7.0 - 11.0 FL LAB HEMETOLOGY METHOD 07/28/2024 1:33 PM EDT [facility] NRBC 0.0 <1.0 % LAB [facility] 07/28/2024 1:33 PM EDT [facility] NRBC Absolute 0.00 <0.10 K/mcL LAB [facility] METHOD 07/28/2024 1:33 PM EDT [facility] Blood Venous blood specimen / Unknown Venipuncture / Unknown 07/28/2024 6:39 AM EDT 07/28/2024 8:04 AM EDT us Ly Johnson MD LAB BLOOD ORDERABLES Omar curt Result - Final [facility] [address] [place] [address], documented in this encounter Visit Diagnoses Diagnosis Malignant neoplasm of unspecified part of unspecified bronchus or lung (CMS/HCC V24, CMS/HCC V28) Pneumonia, unspecified organism documented in this encounter Care Teams Paper Products Supervisor Relationship Specialty Start Date End Date Sarthak Person MD [address] [place] [address] Dr Somers [address] [facility] PCP - General Internal Medicine 02/06/15 documented as of this encounter
[2024-08-22 11:55] LABS: Appearance Urine Clear; Color Urine Yellow; Glucose Urine UA Negative (Negative); Leukocyte Esterase Urine Negative (Negative); Nitrite Urine Negative (Negative); PH 6.5 (5.0-9.0); Urine Blood Negative (Negative); Urine Ketones Trace mg/dL (Negative); Urine Protein Negative (Neg-Trace)
[2024-08-22 12:20] LABS: Cholesterol 159 mg/dL (<200); HDL Cholesterol 38 mg/dL (>40); LDL Cholesterol Calculated 94 mg/dL (<100); Triglycerides 139 mg/dL (<150)
[2024-08-22 12:35] LABS: Vitamin D 25-OH Total 43.4 ng/mL (>30)
== END 2024-08-22 10:36 | disposition home or self-care (01) ==
LOC: HO.LAB 10:35
PROVIDERS: PCP Internal Medicine; Visit Provider Internal Medicine
DX: E78.00 Pure hypercholesterolemia, unspecified (principal); E55.9 Vitamin D deficiency, unspecified; R22.0 Localized swelling, mass and lump, head; C34.91 Malignant neoplasm of unspecified part of right bronchus or lung; D50.8 Other iron deficiency anemias; R23.3 Spontaneous ecchymoses; I34.1 Nonrheumatic mitral (valve) prolapse; F41.9 Anxiety disorder, unspecified; F33.9 Major depressive disorder, recurrent, unspecified; F17.210 Nicotine dependence, cigarettes, uncomplicated; D64.9 Anemia, unspecified
CPT/HCPCS: 36415; 80061; 81003; 82306; 96127; 99212

== ENCOUNTER 2024-08-22 15:03 | Outpatient (AMB) | payer OTHER, SELFPAY ==
--- OUTSIDE RECORDS SUMMARY | 2024-08-22 15:05 | XMS_ITS | Clinical Summary ---
Author Organization 299 [facility] Address [address] [place] [address] Phone Care Team Providers Care Air Crew Member Name Role Phone Sarthak Person MD Primary Care Provider Encounters Date Type Department Care Team Description 07/29/[address] [facility] [address] [place] [phone] Ly Johnson MD Malignant neoplasm of unspecified part of unspecified bronchus or lung ([facility] V24, [facility] V28); Pneumonia, unspecified organism 07/28/[address] [facility] [address] [place] [address] Ly Johnson MD Malignant neoplasm of unspecified part of unspecified bronchus or lung ([facility] V24, [facility] V28); Pneumonia, unspecified organism from Last 3 [...] as clinically indicated. 07/28/2024 1:30 PM EDT [facility] Blood Venous blood specimen / Unknown Venipuncture / Unknown 07/28/2024 6:39 AM EDT 07/28/2024 8:04 AM EDT us Ly Johnson MD LAB BLOOD ORDERABLES Fin al Result [facility] ([facility]) [facility] [address] [place] [address], * (ABNORMAL) Complete blood count (07/28/2024 6:39 AM EDT) WBC 9.5 4.8 - 10.8 K/mcL LAB HEMETOLOGY METHOD 07/28/2024 1:33 PM [facility] RBC 4.50 3.80 - 4.80 M/mcL LAB HEMETOLOGY METHOD 07/28/2024 1:33 PM [facility] Hemoglobin 13.7 11.5 - 16.0 g/dL LAB HEMETOLOGY METHOD 07/28/2024 1:33 PM [facility] Hematocrit 40.5 35.0 - 47.0 % LAB HEMETOLOGY METHOD 07/28/2024 1:33 PM [facility] MCV 90.2 79.0 - 98.0 FL LAB HEMETOLOGY METHOD 07/28/2024 1:33 PM [facility] MCH 30.5 27.0 - 32.0 pcg LAB HEMETOLOGY METHOD 07/28/2024 1:33 PM [facility] MCHC 33.8 32.0 - 37.0 g/dL LAB HEMETOLOGY METHOD 07/28/2024 1:33 PM [facility] RDW 16.0(H) 11.0 - 15.0 % LAB HEMETOLOGY METHOD 07/28/2024 1:33 PM [facility] Platelets 31(L) 130 - 400 K/mcL LAB HEMETOLOGY METHOD 07/28/2024 1:33 PM [facility] Comment:reviewed by slide MPV 9.8 7.0 - 11.0 FL LAB HEMETOLOGY METHOD 07/28/2024 1:33 PM [facility] NRBC 0.0 <1.0 % LAB HEMETOLOGY METHOD 07/28/2024 1:33 PM [facility] NRBC Absolute 0.00 <0.10 K/mcL LAB HEMETOLOGY METHOD 07/28/2024 1:33 PM [facility] Blood Venous blood specimen / Unknown Venipuncture / Unknown 07/28/2024 6:39 AM EDT 07/28/2024 8:04 AM EDT Ly Johnson MD LAB BLOOD ORDERABLES Omar curt Result - Final [facility] [address] [place] [address], [place] [phone] * (ABNORMAL) Comprehensive metabolic panel (07/28/2024 6:39 AM EDT) Sodium 129(L) 133 - 145 mmol/L LAB CHEMISTRY METHOD 07/28/2024 10:12 AM [facility] Potassium 2.9(LL) 3.5 - 5.5 mmol/L LAB CHEMISTRY METHOD 07/28/2024 10:12 AM [facility] Chloride 92(L) 96 - 110 mmol/L LAB CHEMISTRY METHOD 07/28/2024 10:12 AM [facility] CO2 27 21 - 32 mmol/L LAB CHEMISTRY METHOD 07/28/2024 10:12 AM [facility] Anion Gap 10 3 - 11 LAB CHEMISTRY METHOD 07/28/2024 10:12 AM [facility] Glucose 105(H) 70 - 100 mg/dL LAB CHEMISTRY METHOD 07/28/2024 10:12 AM [facility] BUN 13 5 - 25 mg/dL LAB CHEMISTRY METHOD 07/28/2024 10:12 AM [facility] Creatinine 0.37(L) 0.50 - 1.10 mg/dL LAB CHEMISTRY METHOD 07/28/2024 10:12 AM [facility] eGFR 113 >=60 mL/min/1. 73m2 LAB CHEMISTRY METHOD 07/28/2024 10:12 AM [facility] Comment:Calculation based on the??Chronic Kidney Disease Epidemiology Collaboration (CKD-EPI) equation refit??without adjustment for race. BUN/Creatinine Ratio 35.1 LAB CHEMISTRY METHOD 07/28/2024 10:12 AM [facility] Calcium 9.2 8.5 - 10.5 mg/dL LAB CHEMISTRY METHOD 07/28/2024 10:12 AM [facility] AST (SGOT) 11 10 - 42 unit/L LAB CHEMISTRY METHOD 07/28/2024 10:12 AM [facility] ALT (SGPT) 13 10 - 60 unit/L LAB CHEMISTRY METHOD 07/28/2024 10:12 AM [facility] Alkaline Phosphatase 110 42 - 121 unit/L LAB CHEMISTRY METHOD 07/28/2024 10:12 AM [facility] Total Protein 7.1 6.0 - 8.0 g/dL LAB CHEMISTRY METHOD 07/28/2024 10:12 AM [facility] Albumin 3.9 3.2 - 5.0 g/dL LAB CHEMISTRY METHOD 07/28/2024 10:12 AM [facility] Total Bilirubin 0.5 0.0 - 1.4 mg/dL LAB CHEMISTRY METHOD 07/28/2024 10:12 AM [facility] Blood Venous blood specimen / Unknown Venipuncture / Unknown 07/28/2024 6:39 AM EDT 07/28/2024 8:04 AM EDT us Ly Johnson MD LAB BLOOD ORDERABLES Fin al Result [facility] [address] [place] [address], [place] [phone] from Last 3 Months Insurance MEDICAID - [place] MEDICARE Care Teams Air Crew Member Relationship Specialty Start Date End Date Sarthak Person MD [address] [place] [address] [address] [place] PCP - General Internal Medicine 02/06/15
--- OUTSIDE RECORDS SUMMARY | 2024-08-22 15:05 | XMS_ITS | Encounter Summary ---
Author Organization [facility] Address [address] [place] [address] Care Team Providers Care Senior Engineering Tech Name Role Phone Sarthak Person MD Primary Care Provider + [phone] Encounter Details Date Type Department Care Team (Late st Contact Info) Description 07/28/2024 Lab Requisition [facility] - Main Lab 299 [facility] [place] [phone] Ly Johnson MD [address] [address] Malignant neoplasm of unspecified part of unspecified [...] unspecified bronchus or lung (CMS/HCC V24, [facility] V28) Pneumonia, unspecified organism COMPREHENSIVE METABOLIC PANEL Routine 07/28/2024 6:39 AM EDT Malignant neoplasm of unspecified part of unspecified bronchus or lung ([facility] V24, [facility] V28) Pneumonia, unspecified organism documented in this encounter Results * Pathology review, blood smear (07/28/2024 6:39 AM EDT) Pathologist [facility] Pathologist Review Blood Smear Thrombocytopenia confirmed (no platelet clumps); smear not diagnostic of etiology. Clinical correlation and follow-up is recommended, including follow-up CBC to evaluate for persistence as clinically indicated. 07/28/2024 1:30 PM EDT [facility] Blood Venous blood specimen / Unknown Venipuncture / Unknown 07/28/2024 6:39 AM EDT 07/28/2024 8:04 AM EDT us Ly Johnson MD LAB BLOOD ORDERABLES Fin al Result [facility] [address] [place] [address], * (ABNORMAL) Comprehensive metabolic panel (07/28/2024 6:39 AM EDT) Sodium 129(L) 133 - 145 mmol/L LAB CHEMISTRY METHOD 07/28/2024 10:12 AM EDT [facility] Potassium 2.9(LL) 3.5 - 5.5 mmol/L LAB CHEMISTRY METHOD 07/28/2024 10:12 AM EDT [facility] Chloride 92(L) 96 - 110 mmol/L LAB CHEMISTRY METHOD 07/28/2024 10:12 AM EDT [facility] CO2 27 21 - 32 mmol/L LAB CHEMISTRY METHOD 07/28/2024 10:12 AM [facility] Anion Gap 10 3 - 11 LAB CHEMISTRY METHOD 07/28/2024 10:12 AM [facility] Glucose 105(H) 70 - 100 mg/dL LAB CHEMISTRY METHOD 07/28/2024 10:12 AM [facility] BUN 13 5 - 25 mg/dL LAB CHEMISTRY METHOD 07/28/2024 10:12 AM [facility] Creatinine 0.37(L) 0.50 - 1.10 mg/dL LAB CHEMISTRY METHOD 07/28/2024 10:12 AM [facility] eGFR 113 >=60 mL/min/1. 73m2 LAB CHEMISTRY METHOD 07/28/2024 10:12 AM [facility] Comment:Calculation based on the??Chronic Kidney Disease Epidemiology Collaboration (CKD-EPI) equation refit??without adjustment for race. BUN/Creatinine Ratio 35.1 LAB CHEMISTRY METHOD 07/28/2024 10:12 AM [facility] Calcium 9.2 8.5 - 10.5 mg/dL LAB CHEMISTRY METHOD 07/28/2024 10:12 AM [facility] AST (SGOT) 11 10 - 42 unit/L LAB CHEMISTRY METHOD 07/28/2024 10:12 AM [facility] ALT (SGPT) 13 10 - 60 unit/L LAB CHEMISTRY METHOD 07/28/2024 10:12 AM [facility] Alkaline Phosphatase 110 42 - 121 unit/L LAB CHEMISTRY METHOD 07/28/2024 10:12 AM [facility] Total Protein 7.1 6.0 - 8.0 g/dL LAB CHEMISTRY METHOD 07/28/2024 10:12 AM [facility] Albumin 3.9 3.2 - 5.0 g/dL LAB CHEMISTRY METHOD 07/28/2024 10:12 AM [facility] Total Bilirubin 0.5 0.0 - 1.4 mg/dL LAB CHEMISTRY METHOD 07/28/2024 10:12 AM EDT [facility] Blood Venous blood specimen / Unknown Venipuncture / Unknown 07/28/2024 6:39 AM EDT 07/28/2024 8:04 AM EDT us Ly Johnson MD LAB BLOOD ORDERABLES Fin al Result [facility] [address] [place] [address], * (ABNORMAL) Complete blood count (07/28/2024 6:39 AM EDT) WBC 9.5 4.8 - 10.8 K/mcL LAB HEMETOLOGY METHOD 07/28/2024 1:33 PM EDT [facility] RBC 4.50 3.80 - 4.80 M/[facility] LAB HEMETOLOGY METHOD 07/28/2024 1:33 PM EDT [facility] Hemoglobin 13.7 11.5 - 16.0 g/dL LAB HEMETOLOGY METHOD 07/28/2024 1:33 PM EDT [facility] Hematocrit 40.5 35.0 - 47.0 % LAB HEMETOLOGY METHOD 07/28/2024 1:33 PM EDT [facility] MCV 90.2 79.0 - 98.0 FL LAB HEMETOLOGY METHOD 07/28/2024 1:33 PM EDT [facility] MCH 30.5 27.0 - 32.0 pcg LAB HEMETOLOGY METHOD 07/28/2024 1:33 PM EDT [facility] MCHC 33.8 32.0 - 37.0 g/dL LAB HEMETOLOGY METHOD 07/28/2024 1:33 PM EDT [facility] RDW 16.0(H) 11.0 - 15.0 % LAB HEMETOLOGY METHOD 07/28/2024 1:33 PM EDT [facility] Platelets 31(L) 130 - 400 K/mcL LAB HEMETOLOGY METHOD 07/28/2024 1:33 PM EDT [facility] Comment:reviewed by slide MPV 9.8 7.0 - 11.0 FL LAB HEMETOLOGY METHOD 07/28/2024 1:33 PM EDT [facility] NRBC 0.0 <1.0 % [facility] 07/28/[facility] 1:33 PM EDT [facility] NRBC Absolute 0.00 <0.10 K/mcL [facility] 07/28/2024 1:33 PM EDT [facility] Blood Venous blood specimen / Unknown Venipuncture / Unknown 07/28/2024 6:39 AM EDT 07/28/2024 8:04 AM EDT us Ly Johnson MD LAB BLOOD ORDERABLES Omar curt Result - Final [facility] [address] [place] [address], documented in this encounter Visit Diagnoses Diagnosis Malignant neoplasm of unspecified part of unspecified bronchus or lung (CMS/HCC V24, CMS/HCC V28) Pneumonia, unspecified organism documented in this encounter Care Teams Senior Engineering Tech Relationship Specialty Start Date End Date Sarthak Person MD [address] [place] [address] Dr Somers [address] [facility] PCP - General Internal Medicine 02/06/15 documented as of this encounter
[2024-08-22 15:08] VITALS: BP 122/60; PULSE 95; O2SAT 96; BMI 15.1
--- NOTE | 2024-08-22 15:08 | MHC.PC.OV ---
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: No Accompanied by: Self / Same As Patient Allergies No Known Allergies [NO KNOWN ALLERGIES] Allergy (Unknown, Verified 08/22/24 15:34) unknown Medication List - Last Reconciled 08/22/24 by Sarthak Person MD acetaminophen (Tylenol Extra Strength) 500 mg PO QID PRN [ADULT PULL UPS (small) As directed] albuterol sulfate 90 mcg/actuation (Ventolin HFA) 1 puff PO Q6H PRN 30 days alosetron 1 mg (2 x 0.5 mg) PO DAILY alum-mag hydroxide-simeth 400-400-40 mg/5 mL (Maalox Maximum Strength) 10 mL PO TID PRN blood pressure monitor As directed cholecalciferol (vitamin D3) 50 mcg PO DAILY clonazepam 0.5 mg PO BID PRN diphenoxylate-atropine 2.5-0.025 mg (Lomotil) 1 tab PO BID PRN fluticasone propionate 50 mcg/actuation 1 spray intranasal DAILY 30 days food supplemt, lactose-reduced (Boost) 1 ea PO BID hydrocortisone 2.5% (Proctozone-HC) 1 appl MT BID PRN hydroxyzine HCl 50 mg PO BEDTIME loperamide (Imodium A-D) 2 mg PO Q6H PRN loratadine 10 mg PO DAILY Magic Mouthwash Diphen/Nystat/Antacid 1:1:1 10 mL PO TID metoclopramide HCl 5 mg PO TIDAC mirtazapine 30 mg PO BEDTIME nicotine 1 patch transdermal Q24H 28 days MDD smoking nicotine (polacrilex) (Nicorette) 2 mg buccal Q2H PRN ondansetron 8 mg PO Q8H PRN oxycodone 5 mg PO Q4H PRN 2 days pantoprazole 40 mg PO BID potassium chloride ER 20 mEq PO BID sodium chloride 1,000 mg PO BID solifenacin 10 mg PO DAILY@0900 sucralfate (Carafate) 4 grams (4 x 1 gram) PO DAILY@1200 umeclidinium 62.5 mcg/actuation (Incruse Ellipta) 1 inh inhalation DAILY 30 days walker (Ultra-Light Rollator misc) As directed Tobacco use date assessed: 08/22/24 Fall risk assessment: 1 Fall in past year Last assessed Fall Risk: 08/22/24 Dental Screening Dental Screen Date: 08/22/24 HPI lump on head HPI Details Patient comes in today for evaluation of a lump on the back of her head that she states first appeared a few days ago States that the lesion does not hurt She was just seen last week and states that the nodule was not present then Adds that she still has increased bruising over her right neck and right anterior chest wall area She has been applying some ice pack over her bruised areas but states that they do not seem to be helping She denies any headaches or dizziness Denies any exertional chest pains; still has SAMUELS with minimal exertion No nausea/vomiting, no abdominal pain No change in bowel habits noted Adds that she had some follow up labs done just earlier this morning and would like to know how she did on her recent labs [facility] Medical History Smoker Encounter for hospice care discussion Respiratory failure with hypoxia Enterococcus, vancomycin-resistant Small cell lung cancer Small cell lung cancer Small cell lung cancer (~08/2023) MDD (major depressive disorder), recurrent episode, moderate Abnormal CT scan, chest Mass of right lung Lung mass Bronchitis Rectal prolapse 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 Nicotine dependence, cigarettes, uncomplicated Nonrheumatic mitral (valve) insufficiency Pulmonary nodule History of hepatitis C Osteopenia (~2011) COPD (chronic obstructive pulmonary disease) IV drug user Endocarditis of mitral valve (~11/2017) Mitral valve prolapse Mitral regurgitation Early satiety Paresthesia of left leg Allergic rhinitis Facet arthritis of lumbar region Cervical spondylosis Vitamin D deficiency Pure hypercholesterolemia Benign essential hypertension Depression GERD (gastroesophageal reflux disease) Anxiety Surgical History History of bronchoscopy (~2023) History of liver biopsy (~2009) History of partial colectomy (~2014) History of hysteroscopy (~2010) History of colonoscopy (~2017) Family History Father Internal bleeding Mother Medical history unknown Social History Household Members: None Household Members Other:: DAUGHTER LIVES DOWNSTAIRS IN TWO BEDROOM HOME Housing: House Housing Other:: lives alone with her cat Malena Are you a primary director of home care hospice to a significant other at home: No Do you presently have visiting nurse or other home services: Yes Alcohol intake: former Comment: chair alarm to bed Patient Tobacco Use Status: Current everyday Tobacco user Tobacco use type: Cigarette Cigarette Packs Per Day: 0.25 Years Smoked: 45 e-Cigarette/Vaping Use: Never Used Second Hand Smoke Exposure: No Substance Use Type: Marijuana Advance Directives Date on File: 09/23/23 service: No Current occupational status: unemployed Sexual orientation: Straight/Heterosexual Gender identity: Female Cognitive needs: No Hearing needs: No Vision needs: Yes Female Reproductive History Menstrual Age of Menarche: 14 Questionnaire PHQ-9 Over the last 2 weeks, how often have you been bothered by any of the following problems? 1. Little interest or pleasure in doing things: several days 2. Feeling down, depressed, or hopeless: several days 3. Trouble falling or staying asleep, or sleeping too much: several days 4. Feeling tired or having little energy: more than half the days 5. Poor appetite or overeating: several days 6. Feeling bad about yourself - or that you are a failure or have let yourself or your family down: not at all 7. Trouble concentrating on things, such as reading the newspaper or watching television: not at all 8. Moving or speaking so slowly that other people could have noticed. Or the opposite - being so fidgety or restless that you have been moving around a lot more than usual: not at all 9. Thoughts that you would be better off or of hurting yourself in some way: not at all Total score: 6 Depression Screening Interpretation: Positive Depression Screening Follow-up: Existing condition and In treatment Depression Screening Done: Yes 54646 - PHQ-9 Billing: Yes Source: Developed by Drs. Demar Wolf, Yocasta Slater, Mathew Juarez and colleagues, with an educational mendoza from [employer]. Thrive Questionnaire Date Thrive assessed: 08/22/24 I am a: Patient What is your living situation today?: I have a steady place to live Within the past 12 months, did the food you bought not last and you didn't have the money to get more?: I choose not to answer this question Within the past 12 months, did you worry whether your food would run out before you got money to buy more?: Never true Do you have trouble paying for medicines?: No Do you have trouble getting transportation to medical appointments?: No Do you have trouble paying your heating and electricity bill?: No Do you have trouble taking care of your child, family member or friend?: No Do you have trouble with day-to-day activities such as bathing, preparing meals, shopping, managing finances, etc.?: No Are you currently unemployed and looking for a job?: No Are you interested in more education?: No Please select the resources that you would like help with: None Currently or been in a relationship where the following occur: No concerns reported THRIVE Score: 0 AUDIT C Alcohol Use Questionnaire (AUDIT-C) 1. How often do you have a drink containing alcohol?: Never 3. How often do you have six or more drinks on one occasion?: Never Total Score: 0 Score Reviewed/Action Taken: Yes CHRISSIE-7 AMB Questionnaire CHRISSIE-7 Date CHRISSIE - 7 assessed: 08/22/24 Feeling nervous, anxious, or on edge: 1 = Several days Not being able to stop or control worryin = Not at all Worrying too much about different things: 1 = Several days Trouble relaxin = Not at all Being so restless that it is hard to sit still: 1 = Several days Becoming easily annoyed or irritable: 1 = Several days Feeling afraid as if something awful might happen: 0 = Not at all Total CHRISISE-7 score (0-4 normal; 5-9 mild; 10-14 moderate; 15-21 severe): 4 Source: Developed by Drs. Demar Wolf, Yocasta Slater, Mathew Juarez and colleagues, with an educational mendoza from [employer]. Review of Systems Const Denies chills, Reports difficulty sleeping, Reports fatigue, Denies fever(s), Denies headache(s), Reports poor appetite and Reports weight loss ENT Denies dysphagia, Reports dizziness (at times), Denies otalgia, Denies headache(s), Denies neck pain, Denies odynophagia and Denies sore throat Card Denies chest pain, Denies palpitations and Reports dyspnea on exertion Resp Denies chest congestion, Reports cough (frequent - coughs up clear to whitish phlegm at times), Denies hemoptysis, Denies pain with cough, Reports dyspnea on exertion and Denies wheezing GI Denies abdominal pain, Denies hematochezia, Denies constipation, Denies dysphagia, Denies heartburn, Reports fecal incontinence (at times), Reports loose stools (recurrent), Reports nausea, Denies odynophagia and Denies vomiting Denies difficulty voiding, Denies nocturia, Denies dysuria and Denies urinary urgency Musc Reports back pain (over the lumbar spine - chronic) and Denies neck pain Skin/Breast Details: (+) non-tender nodule on the back of the head; (+) bruising over large areas on the right side of her neck and on the right anterior chest wall area Denies rash Neuro Reports dizziness (at times), Denies headache(s) and Reports paresthesias (in the left leg) Psych Reports anxiety and Reports depression Endo Reports fatigue and Denies palpitations Aller/Immun Denies wheezing Physical exam (Primary Care) Vital Signs: Last Vital Signs Pulse 95 08/22/24 15:08 BP 122/60 08/22/24 15:08 Pulse Ox 96 08/22/24 15:08 Oxygen Delivery Method Nasal Cannula 08/22/24 15:08 Oxygen Flow Rate 3 08/22/24 15:08 BMI result Body Mass Index 15.1 Tobacco/Smoking Status: Tobacco use Status Tobacco use date assessed 08/22/24 08/22/24 15:12 Patient Tobacco Use Status Current everyday Tobacco 08/22/24 15:12 Tobacco use type Cigarette 08/22/24 15:12 e-Cigarette/Vaping Use Never Used 08/22/24 15:12 PHQ-9: PHQ-9 Score PHQ-9: Total score 6 08/22/24 15:45 Depression Screening Interpretation: Positive Depression Screening Follow-up: Existing condition and In treatment Thrive Assessment: Date of Thrive Assessment Date Thrive assessed 08/22/24 08/22/24 15:12 Currently or been in a relationship where the following occur: No concerns reported Const General: no acute distress and alert Nutritional Appearance: cachectic HENMT Ears: TM's normal bilaterally and EAC's normal Throat: Yes posterior oropharynx normal and Yes tonsils normal (no TP congestion noted) Neck Neck: Yes supple and No lymphadenopathy Thyroid: Thyroid normal Resp Other: patient currently has her oxygen on Auscultation: no rales, rhonchi (scattered) throughout, no wheezes and diminished lung sounds bilateral Cardio Rate: regular rate Rhythm: regular rhythm Heart sounds: Murmur heart sound present systolic mid, III/ and at the apex GI Palpation (GI): Soft to palpation and nontender Auscultation: normal bowel sounds Back/Spine/Pelvis Cervical Spine: Cervical spine tenderness Thoracic/Lumbar Spine: lumbar spinal tenderness Skin Other: (+) non-tender raised nodular lesion on the parieto-occipital scalp area; (+) large areas of bruising/ecchymoses over the right neck area and the right anterior chest wall areas Extrem General: Yes no clubbing, cyanosis or edema Coding Level of Care Code Est Pt Level 3 (62194) Diagnoses Nodule of skin of head R22.0 Small cell carcinoma of right lung, unspecified part of lung C34.91 Laterality: right Lung location: unspecified part of lung Iron deficiency anemia secondary to inadequate dietary iron intake D50.8 Anemia type: iron deficiency Iron deficiency anemia type: inadequate dietary iron intake Spontaneous ecchymoses R23.3 Mitral valve prolapse I34.1 Anxiety F41.9 Episode of recurrent major depressive disorder, unspecified depression episode severity F33.9 Depression Type: major depressive disorder Major depression recurrence: recurrent Active/Remission status: currently active Major depression episode severity: unspecified Smoker F17.200 Additional Codes PHQ-9 - 02337 - PHQ-9 Billing: Yes ([id number]) Assessment & Plan Assessment & Plan (1) Nodule of skin of head: Code(s): R22.0 - Localized swelling, mass and lump, head Category: Medical Plan: Will refer patient to surgery for consideration for biopsy although have advised patient that this is likely a metastatic lesion associated with her SCLC (2) Small cell lung cancer: Onset Date: ~08/2023 Comment: (Right Upper Lobe - Clinical stage T3 N2, Stage IIIB - Dx 08/2023) Code(s): C34.90 - Malignant neoplasm of unspecified part of unspecified bronchus or lung Category: Medical Qualifiers: Laterality: right Lung location: unspecified part of lung Qualified Code(s): C34.91 - Malignant neoplasm of unspecified part of right bronchus or lung Plan: Her lung cancer was first diagnosed in August 2023 She was initially started on Carboplatin/etoposide with atezolizumab on 11/11/2023 and on maintenance atezolizumab every 3 weeks but PET-CT done on 06/07/2024 revealed (+) significant progression of her cancer now involving the right lung with extensive adenopathy She was then started on second-line agent (Topotecan) on 06/23/2024 but developer severe and life-threatening cytopenias after her 1st round of treatment despite growth factor support and dose reduction wherein she required twice a week blood transfusion of blood and platelets until she was able to recover At her request, in spite of advice from oncology that recommended against further treatment, she underwent further Tx with 50% reduction of her Tx dose but she developed worsening SOB and nausea and vomiting and ended up being admitted to [facility] [place] [facility] [place] Her Hgb dropped to 7.5 and she required 2 units of PRBC; [place] [address] as well She has since been advised AGAINST any further treatments and has been recommended for hospice evaluation and palliative care Will have her recheck her CBC (and platelet count) in a couple of weeks for follow up BEFORE her upcoming appointment with Dr. James next month (3) Anemia: Code(s): D64.9 - Anemia, unspecified Category: Medical Qualifiers: Anemia type: iron deficiency Iron deficiency anemia type: inadequate dietary iron intake Qualified Code(s): D50.8 - Other iron deficiency anemias Plan: S/P blood transfusions over the past couple of months Will continue to monitor her CBC regularly - will have her recheck her CBC in 2 to 3 weeks, before her upcoming appt with Dr. James next month Follow up with hematology as scheduled (4) Spontaneous ecchymoses: Code(s): R23.3 - Spontaneous ecchymoses Category: Medical Plan: Have advised patient that her bruising on her neck and right chest wall are likely related to her SCLC and possibly from paraneoplastic syndrome (5) Mitral valve prolapse: Code(s): I34.1 - Nonrheumatic mitral (valve) prolapse Category: Medical Plan: Transesophageal echocardiogram done on 10/03/20 showed normal LV systolic and diastolic function, moderately severe MR and severe mitral prolapse Repeat echocardiogram done in 04/2022 and on 10/14/2022 revealed no significant changes - ?normal LV systolic function, with mildly dilated left atrium, prolapse of the middle posterior scallop with moderately severe eccentric mitral regurgitation, normal RV systolic pressure and no gross pericardial effusion Patient currently has no clinical signs of heart failure although she continues to complain of?some shortness of breath with exertion? She will need endocarditis prophylactic prior to any dental work? (6) Anxiety: Code(s): F41.9 - Anxiety disorder, unspecified Category: Medical Plan: Continue Clonazepam 0.5 mg BID PRN and Hydroxyzine 50 mg Q HS (7) Depression: Code(s): F32.9 - Major depressive disorder, single episode, unspecified Category: Medical Qualifiers: Depression Type: major depressive disorder Major depression recurrence: recurrent Active/Remission status: currently active Major depression episode severity: unspecified Qualified Code(s): F33.9 - Major depressive disorder, recurrent, unspecified Plan: Continue Mirtazapine 30 mg Q HS (8) Smoker: Code(s): F17.200 - Nicotine dependence, unspecified, uncomplicated Category: Social Hx Plan: She is currently still smoking about 5 cigarettes a day States that she could not tolerate nicotine patches (rash) and feels nauseous when she uses nicotine lozenges and is currently asking for Rx for nicotine gum Per her request, I will send in Rx for Nicorette 2 mg Q 2 hours PRN but in her current situation wherein her lung cancer is terminal and she has failed to tolerate any of her treatments, we are not going to continue to advise her on smoking cessation anymore Plan Follow up as scheduled in December 2024 or PRN Orders: Orders Complete Blood Count Auto Diff 09/08/24 D64.9 - Anemia, unspecified Referrals General Surgery Referral R22.0 - Localized swelling, mass and lump, head Medications: New [HEAT COMPRESS] As directed 1 ea 0RF skin bruising from cancer/chemotherapy C34.91 - Malignant neoplasm of unspecified part of right bronchus or lung
== END 2024-08-22 15:51 | disposition home or self-care (01) ==
LOC: HO.HMCH 15:03
PROVIDERS: PCP Internal Medicine; Visit Provider Internal Medicine
DX: R22.0 Localized swelling, mass and lump, head (principal); C34.91 Malignant neoplasm of unspecified part of right bronchus or lung; D50.8 Other iron deficiency anemias; R23.3 Spontaneous ecchymoses; I34.1 Nonrheumatic mitral (valve) prolapse; F41.9 Anxiety disorder, unspecified; F33.9 Major depressive disorder, recurrent, unspecified; F17.200 Nicotine dependence, unspecified, uncomplicated

== ENCOUNTER 2024-08-24 09:50 | Outpatient (AMB) | payer OTHER, SELFPAY ==
[2024-08-24 09:55] VITALS: BP 104/64; PULSE 102; O2SAT 94; BMI 15.5
--- NOTE | 2024-08-24 09:55 | A.OFFVIS_ITS ---
Vital Signs 08/24/24 09:55 Height 5 ft 2 in Weight 84 lb 14.047 oz BMI 15.5 BP 104/64 Blood Pressure Location Lt brachial Position Sitting Pulse 102 H Pulse Source Pulse Oximeter Pulse Oximetry (%) 94 Oxygen Delivery Method Nasal Cannula Oxygen Flow Rate 2 Intake Visit Reasons: COPD Intake Note: pt is here for follow up and is going on, a lot of coughing some production. Masonry Installer Required: No Allergies No Known Allergies [NO KNOWN ALLERGIES] Allergy (Unknown, Verified 08/24/24 10:18) unknown Medication List - Last Reconciled 08/24/24 by Zulma Padilla MD acetaminophen (Tylenol Extra Strength) 500 mg PO QID PRN [ADULT PULL UPS (small) As directed] albuterol sulfate 90 mcg/actuation (Ventolin HFA) 1 puff PO Q6H PRN 30 days alosetron 1 mg (2 x 0.5 mg) PO DAILY alum-mag hydroxide-simeth 400-400-40 mg/5 mL (Maalox Maximum Strength) 10 mL PO TID PRN blood pressure monitor As directed cholecalciferol (vitamin D3) 50 mcg PO DAILY clonazepam 0.5 mg PO BID PRN diphenoxylate-atropine 2.5-0.025 mg (Lomotil) 1 tab PO BID PRN fluticasone propionate 50 mcg/actuation 1 spray intranasal DAILY 30 days food supplemt, lactose-reduced (Boost) 1 ea PO BID [HEAT COMPRESS As directed] hydrocortisone 2.5% (Proctozone-HC) 1 appl W[place] BID PRN hydroxyzine HCl 50 mg PO BEDTIME loperamide (Imodium A-D) 2 mg PO Q6H PRN loratadine 10 mg PO DAILY Magic Mouthwash Diphen/Nystat/Antacid 1:1:1 10 mL PO TID metoclopramide HCl 5 mg PO TIDAC mirtazapine 30 mg PO BEDTIME nicotine 1 patch transdermal Q24H 28 days MDD smoking nicotine (polacrilex) (Nicorette) 2 mg buccal Q2H PRN ondansetron 8 mg PO Q8H PRN oxycodone 5 mg PO Q4H PRN 2 days pantoprazole 40 mg PO BID potassium chloride ER 20 mEq PO BID sodium chloride 1,000 mg PO BID solifenacin 10 mg PO DAILY@0900 sucralfate (Carafate) 4 grams (4 x 1 gram) PO DAILY@1200 umeclidinium 62.5 mcg/actuation (Incruse Ellipta) 1 inh inhalation DAILY 30 days walker (Ultra-Light Rollator misc) As directed Do you need a note to return to daycare/school/sports/work: No HPI HPI COPD: Details: THIS 64 YEARS OLD VERY PLEASANT FEMALE IS HERE FOR FOLLOW-UP AFTER 4 MONTHS. IN THE MEANTIME SHE HAS BEEN FOLLOWED UP BY THE ONCOLOGY DEPARTMENT. SHE IS NOW ON PALLIATIVE CARE. SHE WAS ADMITTED TO SNF, FROM WHERE SHE SIGNED OUT NOW SHE LIVES AT HOME, HAS HAD TALK BY THE PALLIATIVE TEAM, SUGGESTED HOSPICE CARE BUT SHE DECLINED. HER BREATHING IS FAIRLY STABLE EXCEPT FOR MILD INTERMITTENT COUGH. SHE DOES USE OXYGEN 2 L/MINUTE MOST OF THE TIME. SHE IS USING INCRUSE ELLIPTA ONCE A DAY AND ALBUTEROL 2 PUFFS Q 6 HOURS ONLY P.R.N.. SHE IS ALSO USING MAGIC MOUTHWASH SOLUTION 3 TIMES A DAY. HER MAIN PROBLEM IS CONTINUED DETERIORATION IN HER GENERAL HEALTH WITH INCREASED WEAKNESS. [facility] Medical History (Updated 08/24/24 @ 13:02 by Zulma Padilla MD) Carcinoma of right lung parenchyma Smoker Encounter for hospice care discussion Respiratory failure with hypoxia Enterococcus, vancomycin-resistant Small cell lung cancer Small cell lung cancer Small cell lung cancer (~08/2023) MDD (major depressive disorder), recurrent episode, moderate Abnormal CT scan, chest Mass of right lung Lung mass Bronchitis Rectal prolapse 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 Nicotine dependence, cigarettes, uncomplicated Nonrheumatic mitral (valve) insufficiency Pulmonary nodule History of hepatitis C Osteopenia (~2011) COPD (chronic obstructive pulmonary disease) IV drug user Endocarditis of mitral valve (~11/2017) Mitral valve prolapse Mitral regurgitation Early satiety Paresthesia of left leg Allergic rhinitis Facet arthritis of lumbar region Cervical spondylosis Vitamin D deficiency Pure hypercholesterolemia Benign essential hypertension Depression GERD (gastroesophageal reflux disease) Anxiety Surgical History History of bronchoscopy (~2023) History of liver biopsy (~2009) History of partial colectomy (~2014) History of hysteroscopy (~2010) History of colonoscopy (~2017) Family History Father Internal bleeding Mother Medical history unknown Social History Household Members: None Household Members Other:: DAUGHTER LIVES DOWNSTAIRS IN TWO BEDROOM HOME Housing: House Housing Other:: lives alone with her cat Malena Are you a primary career coordinator to a significant other at home: No Do you presently have visiting nurse or other home services: Yes Alcohol intake: former Comment: chair alarm to bed Patient Tobacco Use Status: Current everyday Tobacco user Tobacco use type: Cigarette Cigarette Packs Per Day: 0.25 Years Smoked: 45 e-Cigarette/Vaping Use: Never Used Second Hand Smoke Exposure: No Substance Use Type: Marijuana Advance Directives Date on File: 09/23/23 service: No Current occupational status: unemployed Sexual orientation: Straight/Heterosexual Gender identity: Female Cognitive needs: No Hearing needs: No Vision needs: Yes Female Reproductive History Menstrual Age of Menarche: 14 Review of Systems Const All systems reviewed & are unremarkable except as noted in HPI and below Eyes Reports no additional complaints ENT Reports nasal congestion (Off and on due to allergic rhinitis) Card Denies chest pain at rest, Denies irregular heart rhythm and Denies leg edema Resp Reports as per HPI and Reports cough GI Reports heartburn (Controlled with med) Reports no additional complaints Musc Reports no additional complaints Skin/Breast Reports system reviewed and no additional complaints, except as documented Neuro Reports no additional complaints Psych Reports anxiety and Reports depression (Controlled with med) Endo Reports no additional complaints Jose L/Lymph Reports no additional complaints Physical Exam Vital Signs: Last Vital Signs Pulse 102 H 08/24/24 09:55 BP 104/64 08/24/24 09:55 Pulse Ox 94 08/24/24 09:55 Oxygen Delivery Method Nasal Cannula 08/24/24 09:55 Oxygen Flow Rate 2 08/24/24 09:55 BMI result Body Mass Index 15.5 Const General: comfortable, no acute distress, alert and awake Orientation/consciousness: patient oriented x3 HEENT Head: Yes normal to inspection General nose exam: No nasal polyps present, No nasal discharge present and Other nasal findings present (There is is small ulcerated lesion on the right side of the nasal septum,) Face and sinus: Yes sinuses nontender Mouth: oropharynx normal Throat: Yes posterior oropharynx normal Eyes General: appearance normal, both eyes and all related structures Neck Neck: Yes normal visual inspection, Yes no lymphadenopathy, Yes trachea midline and Yes no JVD Thyroid: Thyroid normal Chest Chest palpation & inspection: normal inspection of the chest, normal palpation of entire chest wall (SHE HAS PROMINENT COSTOCHONDRAL JN .OF RIGHT UPPER CHEST,NON TENDER ) and no tenderness Resp Other: Percussion note hyper-resonant, breath sounds are distant with prolonged expiratory phase. There are no audible wheezes or rhonchi heard today. She has good breath sounds over the right upper lobe as well. Cardio Palpation: normal PMI Rate: regular rate Rhythm: regular rhythm Heart sounds: no gallops and no murmurs GI Palpation (GI): Soft to palpation, nontender, No hepatosplenomegaly present and no masses Auscultation: normal bowel sounds Back/Spine/Pelvis Thoracic/Lumbar Spine: thoracic and lumbar spine normal to inspection Skin General skin exam: no rashes or lesions noted Neuro General: patient oriented x3 and no focal motor deficits Cranial nerves: Yes CN's II-XII intact bilaterally Extrem General: Yes normal to inspection, Yes no clubbing, cyanosis or edema and Yes no calf tenderness Psych Speech and movement: Normal speech and movement present Affect: Sad affect present (With depressed mood) Assessment & Plan Assessment & Plan (1) COPD (chronic obstructive pulmonary disease): Comment: Patient does have chronic obstructive pulmonary disease related to her lifelong smoking. She is doing fairly well with her current regimen. Code(s): J44.9 - Chronic obstructive pulmonary disease, unspecified Category: Medical Qualifiers: COPD type: emphysema Emphysema type: unspecified Qualified Code(s): J43.9 - Emphysema, unspecified Plan: CONTINUE INCRUSE ELLIPTA. 1 INHALATION DAILY CONTINUE TO USE ALBUTEROL HFA 2 PUFFS Q 4-6 HOURS P.R.N.. (2) Carcinoma of right lung parenchyma: Comment: PATIENT IS KNOWN TO HAVE SMALL CELL CARCINOMA OF THE UPPER LOBE OF RIGHT LUNG, . METASTATIC TO THE BONES. SHE WAS RECEIVING. CHEMOTHERAPY WHICH HAS BEEN STOPPED CURRENTLY SHE IS ON PALLIATIVE CARE. Code(s): C34.91 - Malignant neoplasm of unspecified part of right bronchus or lung Category: Medical Plan: I RECOMMENDED THAT SHE SHOULD CONSIDER HOSPICE SERVICES , FOR BETTER QUALITY OF LIFE. SHE IS RELUCTANT. Coding Level of Care Code Est Pt Level 3 (53902) Diagnoses Pulmonary emphysema, unspecified emphysema type J43.9 COPD type: emphysema Emphysema type: unspecified Carcinoma of right lung parenchyma C34.91
--- OUTSIDE RECORDS SUMMARY | 2024-08-24 11:12 | XMS_ITS | Encounter Summary ---
Author Organization [facility] Address [address] [place] [address] Care Team Providers Care Rotary Peel Oven Tender Name Role Phone Sarthak Person MD Primary Care Provider + [phone] Encounter Details Date Type Department Care Team (Late st Contact Info) Description 07/29/[address] [facility] - Main Lab [address] [facility] [place] [phone] Ly Johnson MD [address] [address] Malignant neoplasm of unspecified part of unspecified [...] organism documented in this encounter Care Teams Rotary Peel Oven Tender Relationship Specialty Start Date End Date Sarthak Person MD [address] [place] [address] PCP - General Internal Medicine 02/06/15 documented as of this encounter
--- OUTSIDE RECORDS SUMMARY | 2024-08-24 11:12 | XMS_ITS | Data Portability ---
Author Organization [facility] [place] [facility] Address [address] [place] [address] Care Team Providers Care Winding Inspector And Tester Name Role Phone HIM CCA OTHER GLEN KELLER Primary Care Provider [phone] Assessment Encounter Date Assessment Date Assessment LastModified [...] Assessment and Plan as documented by the Technical Aide. Patient given the opportunity to ask questions. [...] She states she bruises very easily. Per corporate logistics manager on the scene, Vital signs are stable [...] Name and Address Organization Details Recorded Time 44430 morphine medicatio n Not available Not available Not available 07/26/2024 7033 RxNorm Not Available [facility] - production 5 [...] % 99 % 2 L/min 98.4 [degF] 07717.4 48 g 88 /min 18 /min 156 mm[Hg] 86 mm[Hg] Not Available [facility] - production 4 19:23:28 Date Recorded Respiratory rate Heart rate Body temperature Body weight Body height Oxygen saturation Oxygen saturation in Arterial blood by Pulse oximetry Systolic blood pressure Diastolic blood pressure Provider Name and Address Organization Details Last Updated DateTime 5 20 /min 110 /min 98 [degF] 98468.8 g 152.4 cm 98 % 98 % [...] SNOMED-CT Code Diagnosis ICD10 Code Diagnosis Note [id number] PK AZAR MD Main - [facility] [address] [place] [phone] 12/17/2023 19:23:25 12/17/2023 21:29:56 Anxiety 41443091 F41.9 Painless r ectal bleeding 803026066 K62.5 [id number] Grace Sanchez MD Main - [facility] [address] [place] [phone] 07/26/2024 16:33:24 07/26/2024 20:22:11 Pneumonia 791238444 J18.9 [id number] Ирина Long MD Main - [facility] [address] [place] [phone] 08/18/2024 20:25:21 08/18/2024 21:55:54 Hematoma 474606179 T14.8XXA Health Concerns Section Related Observation LastModified by Organization Detai ls LastModified Time None Recorded Concern Status LastModified by Organization Details LastModified Time None Recorded Advance Directives Directive None Recorded Payers Insurance Date Sequence Insurance Name Policy Number Policy Dong Covered Member ID Dong Member ID Guarantor Name 08/18/2024 1 [facility] - DOS ON OR AFTER 2022 - DUAL ELIGIBLE - LONG TERM OPTIONS AND ONE CARE (MEDICARE REPLACEMENT/ADV ANTAGE - HMO) Sarah Medina [id number] Sarah Medina Notes Date Note Type Note [...] ...................... ...................... ...................... ...................... ...................... ...................... ......... Technical Aide Note From Kenroy Cole: Pt co [...] home o2 2 lpm. Afebrile. Lungs clear. [facility] [place] and advised pt to take another one of her prescribe clonazepam 0.5mg. Pt took during visit. Pt advised to follow up with pcp for referral to therapist in the morning . Pt education on signs indicating the ER. Pt gave email for consent form signature. ...................... ...................... ...................... ...................... ...................... ...................... ......... Disposition: Fulfilled PK AZAR MD [address] [place] [address],[address], [place], [address], [facility] 12/17/2023 20:37:01 07/26/2024 text/html HPI: Additional PMH:Rect[age] y.o female complains of Breathing ProblemsPt's field care advocate calling reporting pt was seen at [facility] earlier today for SOB. Pt reports chest [...] Carrasquillo): Reason For Request: Patient was at [facility] today at 1pm, - Wants help [...] ...................... ...................... ...................... ...................... ...................... ...................... ......... Technical Aide Note From Deniz Olsen: Patient alert and [...] soft nontender extremities unremarkable. Good skin turgor. [facility] recommend supportive care and to call 911 to return to hospital if needed. Patient advises she? l l be able to wait for transportation to rehab facility tomorrow. Patient demonstrates understanding of care and plan. Patient has prescribed medication? s on hand. Red flags, patient education discussed. ...................... ...................... ...................... ...................... ...................... ...................... ......... [facility] Consulted: Grace Sanchez ...................... ...................... ...................... ...................... ...................... ...................... ......... Disposition: Fulfilled Grace Sanchez MD [address] [facility],[address], [place], [phone], [employer] 07/26/2024 18:15:07 08/18/2024 text/html CRC Nurse Triage [...] ...................... ...................... ...................... ...................... ...................... ...................... ......... Technical Aide Note From Graham Resendiz: Pt seen for [...] bruise. Picture of bruised area uploaded for [facility] viewing. [facility] contacted and advised of Pt complaint, findings & presentation. [facility] agrees that Pt should treat the area with ice / cool pack for 48 hours and then heat. [facility] has no further orders. Pt advised of [facility] recommendations. Pt understanding and agreeable to it. Pt has no further questions or concerns. Call closed. ...................... ...................... ...................... ...................... ...................... ...................... ......... [facility] Consulted: Ирина Long ...................... ...................... ...................... ...................... ...................... ...................... ......... Disposition: Fulfilled Ирина Long MD [address] [facility],[address], [place], [address], [facility] 08/18/2024 21:35:47 OBGyn Episode No OBEpisode recorded.
--- OUTSIDE RECORDS SUMMARY | 2024-08-24 11:12 | XMS_ITS | Clinical Summary ---
Author Organization [address] [facility] Address [address] [place] [address] Phone Care Team Providers Care Clinical Coordinator Name Role Phone Sarthak Person MD Primary Care Provider [phone] Encounters Date Type Department Care Team Description 07/29/2024 Lab Requisition [facility] Lab [address] [place] [phone] Ly Johnson MD Malignant neoplasm of unspecified part of unspecified bronchus or lung ([facility] V24, [facility] V28); Pneumonia, unspecified organism 07/28/2024 Lab Requisition [facility] Lab [address] [place] [address] Ly Johnson MD Malignant neoplasm of unspecified part of unspecified bronchus or lung ([facility] V24, [facility] V28); Pneumonia, unspecified organism from Last 3 [...] as clinically indicated. 07/28/2024 1:30 PM EDT [facility] ([facility] Blood Venous blood specimen / Unknown Venipuncture / Unknown 07/28/2024 6:39 AM EDT 07/28/2024 8:04 AM EDT us Ly Johnson MD LAB BLOOD ORDERABLES Fin al Result [facility] ([facility]) [facility] [address] [place] [address], * (ABNORMAL) Complete blood count (07/28/2024 6:39 [...] BLOOD ORDERABLES Omar curt Result - Final [facility] [address] [place] [address], [place] [phone] * (ABNORMAL) Comprehensive metabolic panel (07/28/2024 6:39 [...] MD LAB BLOOD ORDERABLES Fin al Result [facility] [address] [place] [address], [place] [phone] from Last 3 Months Insurance MEDICAID - [place] MEDICARE Care Teams Clinical Coordinator Relationship Specialty Start Date End Date Sarthak Person MD [address] [place] [address] [address] [place] PCP - General Internal Medicine 02/06/15
--- OUTSIDE RECORDS SUMMARY | 2024-08-24 11:12 | XMS_ITS | Encounter Summary ---
Author Organization [facility] Address [address] [place] [address] Care Team Providers Care Mortgage Analyst Name Role Phone Sarthak Person MD Primary Care Provider + [phone] Encounter Details Date Type Department Care Team (Late st Contact Info) Description 07/28/2024 Lab Requisition [facility] - Main Lab [address] [facility] [place] [phone] Ly Johnson MD [address] [address] Malignant neoplasm of unspecified part of unspecified [...] of unspecified bronchus or lung (CMS/HCC V24, [facility] V28) Pneumonia, unspecified organism COMPREHENSIVE METABOLIC PANEL Routine 07/28/2024 6:39 AM EDT Malignant neoplasm of unspecified part of unspecified bronchus or lung ([facility] V24, [facility] V28) Pneumonia, unspecified organism documented in this encounter Results * Pathology review, blood smear (07/28/2024 6:39 AM EDT) Pathologist [facility] Pathologist Review Blood Smear Thrombocytopenia confirmed (no platelet clumps); smear not diagnostic of etiology. Clinical correlation and follow-up is recommended, including follow-up CBC to evaluate for persistence as clinically indicated. 07/28/2024 1:30 PM EDT [facility] Blood Venous blood specimen / Unknown Venipuncture / Unknown 07/28/2024 6:39 AM EDT 07/28/2024 8:04 AM EDT us Ly Johnson MD LAB BLOOD ORDERABLES Fin al Result [facility] [address] [place] [address], * (ABNORMAL) Comprehensive metabolic panel (07/28/2024 6:39 AM EDT) Sodium 129(L) 133 - 145 mmol/L LAB CHEMISTRY METHOD 07/28/2024 10:12 AM EDT [facility] Potassium 2.9(LL) 3.5 - 5.5 mmol/L LAB CHEMISTRY METHOD 07/28/2024 10:12 AM EDT [facility] Chloride 92(L) 96 - 110 mmol/L LAB CHEMISTRY METHOD 07/28/2024 10:12 AM EDT [facility] CO2 27 21 - 32 mmol/L LAB CHEMISTRY METHOD 07/28/2024 10:12 AM [facility] Anion Gap 10 3 - 11 LAB CHEMISTRY METHOD 07/28/2024 10:12 AM [facility] Glucose 105(H) 70 - 100 mg/dL LAB CHEMISTRY METHOD 07/28/2024 10:12 AM [facility] BUN 13 5 - 25 mg/dL LAB CHEMISTRY METHOD 07/28/2024 10:12 AM [facility] Creatinine 0.37(L) 0.50 - 1.10 mg/dL LAB CHEMISTRY METHOD 07/28/2024 10:12 AM [facility] eGFR 113 >=60 mL/min/1. 73m2 LAB CHEMISTRY METHOD 07/28/2024 10:12 AM [facility] Comment:Calculation based on the??Chronic Kidney Disease Epidemiology Collaboration (CKD-EPI) equation refit??without adjustment for race. BUN/Creatinine Ratio 35.1 LAB CHEMISTRY METHOD 07/28/2024 10:12 AM [facility] Calcium 9.2 8.5 - 10.5 mg/dL LAB CHEMISTRY METHOD 07/28/2024 10:12 AM [facility] AST (SGOT) 11 10 - 42 unit/L LAB CHEMISTRY METHOD 07/28/2024 10:12 AM [facility] ALT (SGPT) 13 10 - 60 unit/L LAB CHEMISTRY METHOD 07/28/2024 10:12 AM [facility] Alkaline Phosphatase 110 42 - 121 unit/L LAB CHEMISTRY METHOD 07/28/2024 10:12 AM [facility] Total Protein 7.1 6.0 - 8.0 g/dL LAB CHEMISTRY METHOD 07/28/2024 10:12 AM [facility] Albumin 3.9 3.2 - 5.0 g/dL LAB CHEMISTRY METHOD 07/28/2024 10:12 AM [facility] Total Bilirubin 0.5 0.0 - 1.4 mg/dL LAB CHEMISTRY METHOD 07/28/2024 10:12 AM EDT [facility] Blood Venous blood specimen / Unknown Venipuncture / Unknown 07/28/2024 6:39 AM EDT 07/28/2024 8:04 AM EDT us Ly Johnson MD LAB BLOOD ORDERABLES Fin al Result [facility] [address] [place] [address], * (ABNORMAL) Complete blood count (07/28/2024 6:39 AM EDT) WBC 9.5 4.8 - 10.8 K/mcL LAB HEMETOLOGY METHOD 07/28/2024 1:33 PM EDT [facility] RBC 4.50 3.80 - 4.80 M/[facility] LAB HEMETOLOGY METHOD 07/28/2024 1:33 PM EDT [facility] Hemoglobin 13.7 11.5 - 16.0 g/dL LAB HEMETOLOGY METHOD 07/28/2024 1:33 PM EDT [facility] Hematocrit 40.5 35.0 - 47.0 % LAB HEMETOLOGY METHOD 07/28/2024 1:33 PM EDT [facility] MCV 90.2 79.0 - 98.0 FL LAB HEMETOLOGY METHOD 07/28/2024 1:33 PM EDT [facility] MCH 30.5 27.0 - 32.0 pcg LAB HEMETOLOGY METHOD 07/28/2024 1:33 PM EDT [facility] MCHC 33.8 32.0 - 37.0 g/dL LAB HEMETOLOGY METHOD 07/28/2024 1:33 PM EDT [facility] RDW 16.0(H) 11.0 - 15.0 % LAB HEMETOLOGY METHOD 07/28/2024 1:33 PM EDT [facility] Platelets 31(L) 130 - 400 K/mcL LAB HEMETOLOGY METHOD 07/28/2024 1:33 PM EDT [facility] Comment:reviewed by slide MPV 9.8 7.0 - 11.0 FL LAB HEMETOLOGY METHOD 07/28/2024 1:33 PM EDT [facility] NRBC 0.0 <1.0 % [facility] 07/28/2024 1:33 PM EDT [facility] NRBC Absolute 0.00 <0.10 K/mcL [facility] 07/28/2024 1:33 PM EDT [facility] Blood Venous blood specimen / Unknown Venipuncture / Unknown 07/28/2024 6:39 AM EDT 07/28/2024 8:04 AM EDT us Ly Johnson MD LAB BLOOD ORDERABLES Omar curt Result - Final [facility] [address] [place] [address], documented in this encounter Visit Diagnoses Diagnosis Malignant neoplasm of unspecified part of unspecified bronchus or lung (CMS/HCC V24, CMS/HCC V28) Pneumonia, unspecified organism documented in this encounter Care Teams Mortgage Analyst Relationship Specialty Start Date End Date Sarthak Person MD [address] [place] [address] Dr [address] [facility] [place] PCP - General Internal Medicine 02/06/15 documented as of this encounter
== END 2024-08-24 10:36 | disposition home or self-care (01) ==
LOC: HO.HPS 09:50
PROVIDERS: PCP Internal Medicine; Visit Provider Internal Medicine
DX: J43.9 Emphysema, unspecified (principal); C34.91 Malignant neoplasm of unspecified part of right bronchus or lung
CPT/HCPCS: 99213

== ENCOUNTER → 2024-08-24 09:50 | Outpatient (BNVA) | payer OTHER, SELFPAY | PROVIDERS: PCP Internal Medicine; Visit Provider Internal Medicine | DX: J43.9 Emphysema, unspecified (principal); C34.91 Malignant neoplasm of unspecified part of right bronchus or lung | CPT/HCPCS: 99212 ==

== ENCOUNTER 2024-08-30 11:23 | Outpatient (REF) | payer OTHER, SELFPAY ==
[2024-08-30 11:57] LABS: MANUAL DIFF FLAG NO
--- OUTSIDE RECORDS SUMMARY | 2024-08-30 12:10 | XMS_ITS | Encounter Summary ---
Author Organization [facility] Address [address] [place] [address] Care Team Providers Care Meat Puller Name Role Phone Sarthak Person MD Primary Care Provider + [phone] Encounter Details Date Type Department Care Team (Late st Contact Info) Description 07/29/2024 Lab Requisition [facility] - Main Lab [address] [facility] [place] [id number] Ly Johnson MD [address] [address] Malignant neoplasm of unspecified part of unspecified [...] organism documented in this encounter Care Teams Meat Puller Relationship Specialty Start Date End Date Sarthak Person MD [address] [place] [address] PCP - General Internal Medicine 02/06/15 documented as of this encounter
[2024-08-30 12:23] LABS: Basophils Absolute Auto 0.1 X10*3/uL (0.0-0.2); Basophils Percent Auto 1.2 % (0-2); Eosinophils Absolute Auto 0.1 X10*3/uL (0.0-0.4); Hematocrit 31.7 % (37.0-47.0); Hemoglobin 10.7 g/dl (12.0-16.0); Imm Gran Pct Auto 1.1 % (0.0-0.4); Lymphocytes Absolute Auto 1.2 X10*3/uL (1.2-4.9); Lymphocytes Percent Auto 13.2 % (20-40); Mean Corpuscular HGB Conc 33.8 g/dl (31.0-35.0); Mean Corpuscular Hemoglobin 31.8 pg (27.0-33.0); Mean Corpuscular Volume 94.3 fL (80.0-98.0); Monocytes Absolute Auto 0.9 X10*3/uL (0.1-1.2); Monocytes Percent Auto 9.9 % (2-11); Neutrophils Absolute Auto 6.9 x10*3/uL (2.0-8.3); Neutrophils Percent Auto 73.6 % (45-73); Platelet Count 129 X10*3/uL (160-400); Red Blood Count 3.36 X10*6/uL (4.20-5.50); Red Cell Distribution Width 16.7 % (11.0-16.0); White Blood Count 9.4 X10*3/uL (4.8-10.8)
[2024-08-30 12:42] LABS: Anion Gap 14 (12-20); Blood Urea Nitrogen 17 mg/dL (9-16); Calcium 9.1 mg/dL (8.4-10.2); Carbon Dioxide 26 mmol/L (22-29); Chloride 100 mmol/L (96-108); Estimated Glomerular Filt Rate > 60; Glucose Fasting 107 mg/dL (60-99); Magnesium 1.8 mg/dL (1.6-2.6); Potassium 4.4 mmol/L (3.3-5.1); Sodium 136 mmol/L (135-145)
== END 2024-08-30 11:24 | disposition home or self-care (01) ==
LOC: HO.LAB 11:23
PROVIDERS: Nurse Practitioner Family; PCP Internal Medicine; Visit Provider Internal Medicine
DX: C34.90 Malignant neoplasm of unspecified part of unspecified bronchus or lung (principal)
CPT/HCPCS: 36415; 80048; 83735; 85025; 86850; 86900; 86901

== ENCOUNTER 2024-09-02 09:55 | Outpatient (AMB) | payer OTHER, SELFPAY ==
--- NOTE | 2024-09-02 10:00 | MHC.OFFVIS ---
Vital Signs 09/02/24 10:08 Height 5 ft 2 in Weight 84 lb 6 oz BMI 15.4 BP 90/64 Blood Pressure Location Lt brachial Position Sitting Pulse 68 Pulse Source Pulse Oximeter Pulse Oximetry (%) 99 Oxygen Delivery Method Nasal Cannula Oxygen Flow Rate 3 Intake Visit Reasons: Follow up IBS-D Intake Note: Patient follow up for Anal sphincter incompetence & IBS-D. Patient cc: Pt denies any new sx or concerns since last visit and comments that they have remained stable since their last visit. Pt is commenting that she has stopped chemo therapy as of the last month. Travel Manager Required: No Accompanied by: Self / Same As Patient Allergies No Known Allergies [NO KNOWN ALLERGIES] Allergy (Unknown, Verified 09/02/24 10:00) unknown HPI HPI Follow up IBS-D: Details: Assessment & Plan (1) Erosive gastritis: Code(s): K29.60 - Other gastritis without bleeding Category: Medical (2) Irritable bowel syndrome with diarrhea: Code(s): K58.0 - Irritable bowel syndrome with diarrhea Category: Medical (3) GERD (gastroesophageal reflux disease): Code(s): K21.9 - Gastro-esophageal reflux disease without esophagitis Category: Medical Qualifiers: Esophagitis presence: without esophagitis Qualified Code(s): K21.9 - Gastro-esophageal reflux disease without esophagitis (4) Gastroparesis: Comment: Gastric Emptying Study = Abnormal - 13% retention of food by 4 hours. - 10/30/2020) Code(s): K31.84 - Gastroparesis Category: Medical (5) Rectal bleeding: Code(s): K62.5 - Hemorrhage of anus and rectum Category: Medical (6) Small cell lung cancer: Comment: As noted above her recent bronchoscopic exam and bronchial biopsy were positive for small cell carcinoma. She has been receiving chemotherapy, under care of Dr. Valencia , tolerating the therapy well. Code(s): C34.90 - Malignant neoplasm of unspecified part of unspecified bronchus or lung Category: Medical (7) Anal sphincter incompetence: Code(s): K62.89 - Other specified diseases of anus and rectum Category: Medical Plan She has been through A LOT!!! She was dx'ed with small cell lung ca and underwent chemotherapy and now is on immunotherapy. She had a hard time with pancytopenia and transfusions, nausea and vomiting, and then a severe VRE infection. She then developed black stools and was admitted and an EGD was performed by Dr. Spear - there were some erosions but nothing else serious. She is dealing with a severe rectal prolapse that comes out and it looks like a penis hanging out of me. She continues on her Lotronex, sucralfate, protonix bid and reglan 5mg tid. I send a note to Dr. Spear as I am unfamiliar with what test he wanted ordered to evaluate the celiac artery (or why he wanted it). She is moving to live with her children for help during her illness. RETURN OFFICE VISIT IN 6 MONTHS Medications: New metoclopramide HCl 5 mg PO TIDAC 90 tabs 6RF Changed From pantoprazole 40 mg PO BID@0630,1630 To pantoprazole 40 mg PO BID 60 tabs 6RF From sucralfate 4 grams PO DAILY@1200 To sucralfate (Carafate) 4 grams (4 x 1 gram) PO DAILY@1200 120 tabs 6RF TODAY'S VISIT Pat is in a wheelchair today and on her oxygen, she states to me tearfully ?I am dying from small-cell lung cancer. ? She expresses fear, and sorrow which of course is natural. However, she seems to feel that Oncology ?wants nothing to do with me and wants to put me in a intermediate. ? I explained to her after reading the notes that it is not that they do not want her but that her body simply can not tolerate the chemotherapy and there are no other acceptable treatment regimens for her at this time. This is always a very difficult situation for any medical provider because they do not like to fail the patient. I carefully explained to her that the reason they do not want to treat her again is because it is likely the chemotherapy would kill her, and we are certainly not in the business of intentionally killing people. This seems to make her feel better as she has a better understanding of why she is not being offered treatment alternatives. In terms of the ?intermediate? I let her know that there concern for her because she does not have any help at home. Apparently her daughter was supposed to be there to be a LOAN REVIEW ANALYST for her but for many weeks has not been able to attend to this. It seems that she is very busy with her 4 children and being a single mother which is natural. It is also concerning the pat tells me that ?everything is broken in my house. ? Apparently the refrigerator broke, as did the toilet, and because she was packing to try to move in with a friend she can not access a lot of her personal belongings. On top of this it seems their family moved in and started selling her pots and pans and other things quite against Sarah's wishes. I have encouraged her to talk with her field nurse case manager at [facility] insurance to see if they can get her a home health aide at the very least, as it does not seem that her family has a time where the integrity to give her the appropriate care. Sarah really wants to stay in her home which is understandable. In terms of her GI situation she continues to feel that her current regimen is controlling her symptoms. Obviously we will continue this. We want to promote as good a sql application developer we can, she has lost a tremendous amount of weight but she admits that this is partially because eating competes with her breathing so she can not stomach large quantities. I also explained to her that the cancer tends to use more glucose than the rest of her body and bertrand up a lot of the calorie she is able to get into her body. This is the nature of cancer. She should try eating small more frequent meals or high-calorie dense foods as much as she can tolerate. She really wants a cup of coffee! But it seems she is out of money so I give her a couple of dollars to buy something as the coffee shop. She is grateful, I feel it is at least I can do since she has been my patient for a number of years. She requests a 6 week follow-up. 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 Nicotine dependence, cigarettes, uncomplicated Nonrheumatic mitral (valve) insufficiency Pulmonary nodule History of hepatitis C Osteopenia (~2011) COPD (chronic obstructive pulmonary disease) IV drug user Endocarditis of mitral valve (~11/2017) Mitral valve prolapse Mitral regurgitation Early satiety Paresthesia of left leg Allergic rhinitis Facet arthritis of lumbar region Cervical spondylosis Vitamin D deficiency Pure hypercholesterolemia Benign essential hypertension Depression GERD (gastroesophageal reflux disease) Anxiety Surgical History History of bronchoscopy (~2023) History of liver biopsy (~2009) History of partial colectomy (~2014) History of hysteroscopy (~2010) History of colonoscopy (~2017) Family History Father Internal bleeding Mother Medical history unknown Social History Household Members: None Household Members Other:: DAUGHTER LIVES DOWNSTAIRS IN TWO BEDROOM HOME Housing: House Housing Other:: lives alone with her cat Gizmo Are you a primary caretaker grounds to a significant other at home: No Do you presently have visiting nurse or other home services: Yes Alcohol intake: former Comment: chair alarm to bed Patient Tobacco Use Status: Current everyday Tobacco user Tobacco use type: Cigarette Cigarette Packs Per Day: 0.25 Years Smoked: 45 e-Cigarette/Vaping Use: Never Used Second Hand Smoke Exposure: No Substance Use Type: Marijuana Advance Directives Date on File: 09/23/23 service: No Current occupational status: unemployed Sexual orientation: Straight/Heterosexual Gender identity: Female Cognitive needs: No Hearing needs: No Vision needs: Yes Female Reproductive History Menstrual Age of Menarche: 14 Review of Systems Const Denies fatigue, Denies fever(s), Denies night sweats, Denies poor appetite, Reports weakness and Reports weight loss ENT Reports Normal hearing present, Denies dental pain, Denies dysphagia, Denies hearing loss, Denies mouth pain, Denies odynophagia, Denies throat swelling, Denies tongue swelling and Reports other (Dentition adequate) Card Reports chest pain and Reports dyspnea on exertion Resp Reports cough, Reports excessive phlegm production, Reports dyspnea on exertion and Reports wheezing GI Details: Denies abdominal pain, Denies melena, Denies bloating, Denies hematochezia, Denies constipation, Denies GI cramping, Denies dysphagia, Denies excessive flatus, Reports early satiety, Reports heartburn, Denies diarrhea, Reports nausea, Denies odynophagia, Denies vomiting and Denies hematemesis Musc Reports abnormal gait and Reports muscle weakness Skin/Breast Denies pruritus, Denies lesions, Denies rash and Denies jaundice Neuro Reports Normal hearing present, Denies Abnormal speech present, Reports abnormal gait and Reports weakness Psych Reports anxiety, Reports depression, Denies homicidal ideation and Denies suicidal ideation Endo Denies fatigue Aller/Immun Denies throat swelling, Denies tongue swelling and Reports wheezing Physical Exam Vital Signs: Last Vital Signs Pulse 68 09/02/24 10:08 BP 90/64 09/02/24 10:08 Pulse Ox 99 09/02/24 10:08 Oxygen Delivery Method Nasal Cannula 09/02/24 10:08 Oxygen Flow Rate 3 09/02/24 10:08 BMI result Body Mass Index 15.4 Const General: cooperative, no acute distress, well developed and well groomed Nutritional Appearance: well nourished and thin Orientation/consciousness: oriented to person, oriented to place and oriented to time Limitations: No language barrier, physical limitations, wheelchair and other limitations HEENT Head: Yes normocephalic and Yes atraumatic Eyes General: appearance normal, both eyes and all related structures Pupils: Equal, round and reactive pupils present Neck Neck: Yes normal visual inspection and Yes no lymphadenopathy Thyroid: Thyroid normal Resp Effort & Inspection: Actively coughing Quality: productive Auscultation: rhonchi throughout Cardio Rate: regular rate Rhythm: regular rhythm Heart sounds: Normal, physiologic split S2 sound present Peripheral pulses: radial pulses present and posterior tibial pulses present GI Inspection: No distended and No Abdominal panniculus present Palpation (GI): Soft to palpation, nontender, no guarding, not rigid and No hepatosplenomegaly present Percussion: Yes normal to percussion Auscultation: normal bowel sounds Rectal Exam - Female: deferred Skin General skin exam: no rashes or lesions noted, turgor normal, skin not dry, no jaundice, No spider nevi and no striae Rashes: no rashes Nails: normal Neuro General: oriented to person, oriented to place and oriented to time Cranial nerves: Yes Equal, round and reactive pupils present and Yes Normal hearing present Speech: No Abnormal speech present Extrem General: Yes normal to inspection, No clubbing, No cyanosis and No edema Psych Appearance: grossly normal and well kempt Mental Status: mental status grossly normal Speech and movement: Normal speech and movement present Affect: Labile affect present, Sad affect present and Anxious affect present Attitude: cooperative Thought process: not confabulating and Impoverished thought process present Thought content: Normal thought content present Insight: Limited insight present (Psych) Judgement: Limited judgement present (Psych) Assessment & Plan Assessment & Plan (1) GERD (gastroesophageal reflux disease): Code(s): K21.9 - Gastro-esophageal reflux disease without esophagitis Category: Medical Qualifiers: Esophagitis presence: without esophagitis Qualified Code(s): K21.9 - Gastro-esophageal reflux disease without esophagitis (2) Irritable bowel syndrome with diarrhea: Code(s): K58.0 - Irritable bowel syndrome with diarrhea Category: Medical (3) Gastroparesis: Comment: Gastric Emptying Study = Abnormal - 13% retention of food by 4 hours. - 10/30/2020) Code(s): K31.84 - Gastroparesis Category: Medical (4) Erosive gastritis: Code(s): K29.60 - Other gastritis without bleeding Category: Medical (5) COPD (chronic obstructive pulmonary disease): Comment: Patient does have chronic obstructive pulmonary disease related to her lifelong smoking. She is doing fairly well with her current regimen. Code(s): J44.9 - Chronic obstructive pulmonary disease, unspecified Category: Medical Qualifiers: COPD type: emphysema Emphysema type: unspecified Qualified Code(s): J43.9 - Emphysema, unspecified Plan Pat is in a wheelchair today and on her oxygen, she states to me tearfully ?I am dying from small-cell lung cancer. ? She expresses fear, and sorrow which of course is natural. However, she seems to feel that Oncology ?wants nothing to do with me and wants to put me in a intermediate. ? I explained to her after reading the notes that it is not that they do not want her but that her body simply can not tolerate the chemotherapy and there are no other acceptable treatment regimens for her at this time. This is always a very difficult situation for any medical provider because they do not like to fail the patient. I carefully explained to her that the reason they do not want to treat her again is because it is likely the chemotherapy would kill her, and we are certainly not in the business of intentionally killing people. This seems to make her feel better as she has a better understanding of why she is not being offered treatment alternatives. In terms of the ?intermediate? I let her know that there concern for her because she does not have any help at home. Apparently her daughter was supposed to be there to be a LOAN REVIEW ANALYST for her but for many weeks has not been able to attend to this. It seems that she is very busy with her 4 children and being a single mother which is natural. It is also concerning the pat tells me that ?everything is broken in my house. ? Apparently the refrigerator broke, as did the toilet, and because she was packing to try to move in with a friend she can not access a lot of her personal belongings. On top of this it seems their family moved in and started selling her pots and pans and other things quite against Sarah's wishes. I have encouraged her to talk with her field nurse case manager at [facility] insurance to see if they can get her a home health aide at the very least, as it does not seem that her family has a time where the integrity to give her the appropriate care. Sarah really wants to stay in her home which is understandable. In terms of her GI situation she continues to feel that her current regimen is controlling her symptoms. Obviously we will continue this. We want to promote as good a sql application developer we can, she has lost a tremendous amount of weight but she admits that this is partially because eating competes with her breathing so she can not stomach large quantities. I also explained to her that the cancer tends to use more glucose than the rest of her body and bertrand up a lot of the calorie she is able to get into her body. This is the nature of cancer. She should try eating small more frequent meals or high-calorie dense foods as much as she can tolerate. She really wants a cup of coffee! But it seems she is out of money so I give her a couple of dollars to buy something as the coffee shop. She is grateful, I feel it is at least I can do since she has been my patient for a number of years. She requests a 6 week follow-up. Medications: Refilled metoclopramide HCl 5 mg PO TIDAC 90 tabs 6RF pantoprazole 40 mg PO BID 180 tabs 2RF sucralfate (Carafate) 4 grams (4 x 1 gram) PO DAILY@1200 120 tabs 6RF Coding Level of Care Code Est Pt Level 3 (77670) Diagnoses Gastroesophageal reflux disease without esophagitis K21.9 Esophagitis presence: without esophagitis Irritable bowel syndrome with diarrhea K58.0 Gastroparesis K31.84 Erosive gastritis K29.60 Pulmonary emphysema, unspecified emphysema type J43.9 COPD type: emphysema Emphysema type: unspecified
[2024-09-02 10:08] VITALS: BP 90/64; PULSE 68; O2SAT 99; BMI 15.4
--- OUTSIDE RECORDS SUMMARY | 2024-09-02 10:26 | XMS_ITS | Encounter Summary ---
Author Organization [facility] Address [address] [place] [address] Care Team Providers Care Survey Rodman Name Role Phone Sarthak Person MD Primary Care Provider + [phone] Encounter Details Date Type Department Care Team (Late st Contact Info) Description 07/29/[address] [facility] - Main Lab [address] [facility] [place] [phone] Ly Johnson MD [address] [address] Malignant neoplasm of unspecified part of unspecified [...] organism documented in this encounter Care Teams Survey Rodman Relationship Specialty Start Date End Date Sarthak Person MD [address] [place] [address] PCP - General Internal Medicine 02/06/15 documented as of this encounter
== END 2024-09-02 10:50 | disposition home or self-care (01) ==
LOC: HO.HGI 09:57
PROVIDERS: PCP Internal Medicine; Visit Provider Nurse Practitioner
DX: K21.9 Gastro-esophageal reflux disease without esophagitis (principal); K58.0 Irritable bowel syndrome with diarrhea; K31.84 Gastroparesis; K29.60 Other gastritis without bleeding; J43.9 Emphysema, unspecified
CPT/HCPCS: 99213

== ENCOUNTER → 2024-09-02 09:55 | Outpatient (BNVA) | payer OTHER, SELFPAY | PROVIDERS: PCP Internal Medicine; Visit Provider Nurse Practitioner | DX: K58.0 Irritable bowel syndrome with diarrhea (principal); K21.9 Gastro-esophageal reflux disease without esophagitis; K31.84 Gastroparesis; K29.60 Other gastritis without bleeding; J43.9 Emphysema, unspecified | CPT/HCPCS: 99212 ==

== ENCOUNTER 2024-09-05 08:13 | Outpatient (REF) | payer OTHER, SELFPAY ==
--- OUTSIDE RECORDS SUMMARY | 2024-09-05 08:20 | XMS_ITS | Encounter Summary ---
Author Organization [facility] Address [address] [place] [address] Care Team Providers Care Ballistic Technician Name Role Phone Sarthak Person MD Primary Care Provider + [phone] Encounter Details Date Type Department Care Team (Late st Contact Info) Description 07/29/2024 Lab Requisition [facility] - Main Lab 299 [facility] [place] [phone] Ly Johnson MD [address] [address] Malignant neoplasm of unspecified part of unspecified [...] organism documented in this encounter Care Teams Ballistic Technician Relationship Specialty Start Date End Date Sarthak Person MD [address] [place] [address] PCP - General Internal Medicine 02/06/15 documented as of this encounter
[2024-09-05 08:31] LABS: MANUAL DIFF FLAG NO
[2024-09-05 08:47] LABS: Basophils Absolute Auto 0.1 X10*3/uL (0.0-0.2); Basophils Percent Auto 0.9 % (0-2); Eosinophils Absolute Auto 0.1 X10*3/uL (0.0-0.4); Eosinophils Percent Auto 0.6 % (0-4); Hematocrit 33.5 % (37.0-47.0); Hemoglobin 10.9 g/dl (12.0-16.0); Imm Gran Abs Auto 0.06 X10*3/uL (0.00-0.03); Imm Gran Pct Auto 0.7 % (0.0-0.4); Lymphocytes Absolute Auto 0.8 X10*3/uL (1.2-4.9); Lymphocytes Percent Auto 10.1 % (20-40); Mean Corpuscular HGB Conc 32.5 g/dl (31.0-35.0); Mean Corpuscular Hemoglobin 31.4 pg (27.0-33.0); Mean Corpuscular Volume 96.5 fL (80.0-98.0); Mean Platelet Volume 9.1 fL (9.4-12.3); Monocytes Absolute Auto 0.5 X10*3/uL (0.1-1.2); Monocytes Percent Auto 6.3 % (2-11); Neutrophils Absolute Auto 6.6 x10*3/uL (2.0-8.3); Neutrophils Percent Auto 81.4 % (45-73); Platelet Count 100 X10*3/uL (160-400); Red Blood Count 3.47 X10*6/uL (4.20-5.50); Red Cell Distribution Width 15.9 % (11.0-16.0); White Blood Count 8.2 X10*3/uL (4.8-10.8)
== END 2024-09-05 08:14 | disposition home or self-care (01) ==
LOC: HO.LAB 08:13
PROVIDERS: PCP Internal Medicine; Visit Provider Internal Medicine
DX: D64.9 Anemia, unspecified (principal)
CPT/HCPCS: 36415; 85025

== ENCOUNTER 2024-09-17 14:26 | Inpatient (IN) | payer OTHER, SELFPAY ==
[2024-09-17] VITALS (8 sets, daily range): BP systolic 103–126; BP diastolic 58–77; PULSE 70–95; RESP 16–20; TEMP 36.4–36.7; O2SAT 91–98; BMI 17.0; BMI 15.5
--- NOTE | 2024-09-17 14:35 | MHC.CM.ED ---
Addendum entered by Carmelita Horn 09/17/24 15:03: Lamont Kumar, scrap baller stated patient will be in under hospice respite. Original Note: Received notification from [facility] and Anjali Winters Drying Room Supervisor that patient will be coming to the ER for a GIP admission due to pain management. Dr Rhoades and Trinh, air quality specialist aware. Continue to monitor for d/c needs.
--- NOTE | 2024-09-17 14:44 | ED.WEAKNESS ---
HPI - Weakness General Stated complaint: HOSPICE RESPITE FOR PAIN MANAGEMENT PER EMS Source: patient, EMS and old records reviewed Mode of arrival: EMS Limitations: no limitations History of Present Illness ED Provider: TEODORO HPI Narrative: 64 yo female with PMH of COPD, anxiety, depression, HTN, GERD, hep C, HLD, small cell lung cancer with mets and SVC syndrome, she comes in from home with call ahead by hospice that she will need GIP bed they have also sent in med recommendations. The patient notes she has pain and feels short of breath. She is aware she is here for admission for hospice. She is crying and asking for coffee before she dies. MD Complaint: generalized weakness Onset (ago): month(s) Duration: progressively worsening Location: generalized Migration: none Severity: severe Relieving factors: rest Exacerbating factors: movement Context: recent illness Associated symptoms: other (pain, dyspnea) Related Data Home Medications ?Medication ?Instructions ?Recorded ?Confirmed potassium chloride 20 mEq 20 meq PO BID 07/21/24 09/12/24 tablet,extended release hydrocortisone 2.5 % topical cream 1 appl WI BID PRN Hemorrhoids 07/23/24 09/12/24 with perineal applicator (Proctozone-HC) Previous Rx's ?Medication ?Instructions ?Recorded ADULT PULL UPS (small) #240 ea 02/10/24 blood pressure monitor #1 ea 02/10/24 cholecalciferol (vitamin D3) 50 50 mcg PO DAILY #90 caps 02/29/24 mcg (2,000 unit) capsule albuterol sulfate 90 mcg/actuation 1 puff PO Q6H PRN shortness of 03/21/24 aerosol inhaler (Ventolin HFA) breath or wheezing 30 days #8.5 grams hydroxyzine HCl 50 mg tablet 50 mg PO BEDTIME #90 tabs 04/07/24 walker (Ultra-Light Rollator misc) #1 ea 06/10/24 ondansetron 8 mg disintegrating 8 mg PO Q8H PRN Nausea And 06/13/24 tablet Vomiting #30 tabs acetaminophen 500 mg tablet 500 mg PO QID PRN Breakthrough 06/20/24 (Tylenol Extra Strength) Pain, Moderate #60 tabs aluminum-mag hydroxide-simethicone 10 ml PO TID PRN Indigestion #250 06/23/24 400 mg-400 mg-40 mg/5 mL oral susp mL (Maalox Maximum Strength) solifenacin 10 mg tablet 10 mg PO DAILY@0900 #90 tabs 06/23/24 loratadine 10 mg tablet 10 mg PO DAILY #30 tabs 07/04/24 food supplemt, lactose-reduced 1 ea PO BID #30 ea 07/11/24 0.04 gram-1 kcal/mL oral liquid (Boost) diphenoxylate-atropine 2.5 1 tab PO BID PRN Diarrhea #60 tabs 07/18/24 mg-0.025 mg tablet (Lomotil) loperamide 2 mg capsule (Imodium 2 mg PO Q6H PRN Diarrhea #30 caps 07/18/24 A-D) fluticasone propionate 50 1 spray intranasal DAILY 30 days 07/20/24 mcg/actuation nasal #16 grams spray,suspension sodium chloride 1,000 mg soluble 1,000 mg PO BID #60 tabs 07/26/24 tablet alosetron 0.5 mg tablet 1 mg (2 x 0.5 mg) PO DAILY #60 tabs 07/29/24 Magic Mouthwash 10 ml PO TID #240 mL 08/12/24 Diphen/Nystat/Antacid 1:1:1 240 mL suspension nicotine (polacrilex) 2 mg gum 2 mg buccal Q2H PRN nicotine 08/17/24 (Nicorette) cravings #120 ea clonazepam 0.5 mg tablet 0.5 mg PO BID PRN Anxiety #60 tabs 08/19/24 HEAT COMPRESS #1 ea 08/22/24 nicotine 14 mg/24 hr daily 1 patch transdermal Q24H smoking 08/23/24 transdermal patch 28 days #28 ea mirtazapine 30 mg tablet 30 mg PO BEDTIME #90 tabs 08/30/24 metoclopramide HCl 5 mg tablet 5 mg PO TIDAC #90 tabs 09/02/24 pantoprazole 40 mg tablet,delayed 40 mg PO BID #180 tabs 09/02/24 release sucralfate 1 gram tablet (Carafate) 4 g (4 x 1 gram) PO DAILY@1200 09/02/24 #120 tabs simvastatin 40 mg tablet 40 mg PO BEDTIME #90 tabs 09/05/24 dexamethasone 2 mg tablet 2 mg PO BID #60 tabs 09/12/24 oxycodone 5 mg tablet 5 mg PO Q4H PRN Pain (Scale Score 09/12/24 7-10) #90 tabs umeclidinium 62.5 mcg/actuation 1 inh inhalation DAILY copd 30 09/12/24 blister powder for inhalation days #30 ea (Incruse Ellipta) codeine 10 mg-guaifenesin 100 mg/5 5 ml PO Q8H PRN cough #100 mL 09/15/24 mL oral liquid Allergies Allergy/AdvReac Type Severity Reaction Status Date / Time No Known Allergies Allergy Unknown unknown Verified 09/17/24 14:55 [NO KNOWN ALLERGIES] Review of Systems Review of Systems: Constitutional : No Fever, No Chills, No Fatigue ENT/Mouth : No sore throat, No Rhinorrhea Eyes: No Eye Pain, No Swelling, No Redness Cardiovascular : No Chest Pain, pos SOB, pos Dyspnea on Exertion Respiratory : pos Cough, No Sputum Gastrointestinal : No Nausea, No Vomiting, No Diarrhea, No abdominal Pain Genitourinary : No Dysuria, No Urinary Frequency, No Hematuria, Musculoskeletal : No joint pain, No Myalgias, No Joint Swelling Skin : No Skin Lesions, No rash Neuro : pos Weakness, No Numbness, No Dizziness, positive Headache Psych : pos Anxiety/Panic, No Depression All other systems reviewed and are negative PMFSH Past Medical History Attestation statement: The following information was validated with the patient. 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 Nicotine dependence, cigarettes, uncomplicated Nonrheumatic mitral (valve) insufficiency Pulmonary nodule History of hepatitis C Osteopenia (~2011) COPD (chronic obstructive pulmonary disease) IV drug user Endocarditis of mitral valve (~11/2017) Mitral valve prolapse Mitral regurgitation Early satiety Paresthesia of left leg Allergic rhinitis Facet arthritis of lumbar region Cervical spondylosis Vitamin D deficiency Pure hypercholesterolemia Benign essential hypertension Depression GERD (gastroesophageal reflux disease) Anxiety Surgical History History of bronchoscopy (~2023) History of liver biopsy (~2009) History of partial colectomy (~2014) History of hysteroscopy (~2010) History of colonoscopy (~2017) Family History Family History Father Internal bleeding Mother Medical history unknown Social History Social History Household Members: None Household Members Other:: DAUGHTER LIVES DOWNSTAIRS IN TWO BEDROOM HOME Housing: House Housing Other:: lives alone with her cat Malena Are you a primary clinical manager home care to a significant other at home: No Do you presently have visiting nurse or other home services: Yes Alcohol intake: former Comment: chair alarm to bed Patient Tobacco Use Status: Current everyday Tobacco user Tobacco use type: Cigarette Cigarette Packs Per Day: 0.25 Years Smoked: 45 e-Cigarette/Vaping Use: Never Used Second Hand Smoke Exposure: No Substance Use Type: Marijuana Advance Directives Date on File: 09/23/23 service: No Current occupational status: unemployed Sexual orientation: Straight/Heterosexual Gender identity: Female Cognitive needs: No Hearing needs: No Vision needs: Yes Physical Exam Vital Signs: Appearance: Alert. Oriented X3. Mild acute distress. Thin and frail appearing Eyes: Pupils equal, round and reactive to light. ENT: Pharynx normal. she has engorged vessels on upper chest and into neck Neck: Normal inspection. Neck supple. CVS: tachycardic heart rate and rhythm. Pulses normal. Respiratory: No respiratory distress. Breath sounds coarse and diminished, very poor effort with coarse cough Abdomen: Soft and nontender. Skin: Skin warm and dry. pale skin color. Extremities: No lower extremity edema. Neuro: Oriented X 3. No motor deficit. No sensory deficit. CN2-12 intact Medical Decision Making Medical Decision Making MDM Narrative: 64 yo female with PMH of COPD, anxiety, depression, HTN, GERD, hep C, HLD, small cell lung cancer here with worsening breathing, SVC syndrome, FTT and admission for hospice. I have ordered her comfort meds and will discuss with hospitalist. Differential Diagnosis Differential Diagnoses: The differential diagnosis associated with the presentation includes end stage lung cancer Admission/Observation Consideration of admission/observation: Escalation of care including admission/observation considered admit to hospice Consult Healthcare Provider Management of the patient was discussed with: Hospitalist (will admit) Independent Historian Clinical information obtained from an independent historian. History obtained from or confirmed by: EMS External Record Review External record reviewed: Inpatient record and Outpatient record Discharge Plan Discharge Clinical Impression: Small cell lung cancer Patient Disposition: Admitted As Inpatient Prescriptions: No Action (DME) ADULT PULL UPS (small) See Rx Instructions .Route .MEDSUPPLY Qty: 240 12RF Rx Instructions: As directed (DME) blood pressure monitor Kit See Rx Instructions .ROUTE .MEDSUPPLY Qty: 1 0RF Rx Instructions: As directed cholecalciferol (vitamin D3) 50 mcg (2,000 unit) capsule 50 mcg PO DAILY Qty: 90 3RF albuterol sulfate [Ventolin HFA] 90 mcg/actuation HFA aerosol inhaler 1 puff PO Q6H PRN (Reason: shortness of breath or wheezing) 30 Days Qty: 8.5 3RF hydroxyzine HCl 50 mg tablet 50 mg PO BEDTIME Qty: 90 1RF (DME) Ultra-Light Rollator Misc See Rx Instructions .Route Qty: 1 0RF Rx Instructions: As directed solifenacin 10 mg tablet 10 mg PO DAILY@0900 Qty: 90 0RF fluticasone propionate 50 mcg/actuation spray,suspension 1 spray intranasal DAILY 30 Days Qty: 16 2RF alosetron 0.5 mg tablet 1 mg PO DAILY Qty: 60 6RF Magic Mouthwash Diphen/Nystat/Antacid 1:1:1 240 mL Suspension 10 ml PO TID Qty: 240 1RF Rx Instructions: nystatin 100,000 unit/mL oral suspension 80 mL; diphenhydramine 12.5 mg/5 mL oral liquid 80 mL; aluminum-mag hydroxide-simethicone 400 mg-400 mg-40 mg/5 mL oral susp 80 mL; Per 240 mL nicotine 14 mg/24 hr patch 24 hour 1 patch transdermal Q24H MDD smoking 28 Days Qty: 28 2RF mirtazapine 30 mg tablet 30 mg PO BEDTIME Qty: 90 1RF simvastatin 40 mg tablet 40 mg PO BEDTIME Qty: 90 0RF Incruse Ellipta 62.5 mcg/actuation blister with device 1 inh inhalation DAILY 30 Days Qty: 30 5RF ondansetron 8 mg Tablet,Disintegrating 8 mg PO Q8H PRN (Reason: Nausea And Vomiting) Qty: 30 3RF acetaminophen [Tylenol Extra Strength] 500 mg Tablet 500 mg PO QID PRN (Reason: Breakthrough Pain, Moderate) Qty: 60 0RF alum-mag hydroxide-simeth [Maalox Maximum Strength] 400-400-40 mg/5 mL Suspension 10 ml PO TID PRN (Reason: Indigestion) Qty: 250 0RF loratadine 10 mg Tablet 10 mg PO DAILY Qty: 30 3RF Boost 0.04 gram- 1 kcal/mL Liquid 1 ea PO BID Qty: 30 1RF diphenoxylate-atropine [Lomotil] 2.5-0.025 mg Tablet 1 tab PO BID PRN (Reason: Diarrhea) Qty: 60 0RF loperamide [Imodium A-D] 2 mg Capsule 2 mg PO Q6H PRN (Reason: Diarrhea) Qty: 30 2RF potassium chloride 20 mEq Tablet Extended Release 20 meq PO BID clonazepam 0.5 mg Tablet 0.5 mg PO BID PRN (Reason: Anxiety) Qty: 60 0RF dexamethasone 2 mg Tablet 2 mg PO BID Qty: 60 0RF oxycodone 5 mg Tablet 5 mg PO Q4H PRN (Reason: Pain (Scale Score 7-10)) Qty: 90 0RF Rx Instructions: Partial Fill upon patient request. codeine-guaifenesin 10-100 mg/5 mL Liquid 5 ml PO Q8H PRN (Reason: cough ) Qty: 100 0RF hydrocortisone [Proctozone-HC] 2.5 % cream with perineal applicator 1 appl WI BID PRN (Reason: Hemorrhoids) sodium chloride 1,000 mg Tablet,Soluble 1,000 mg PO BID Qty: 60 0RF metoclopramide HCl 5 mg tablet 5 mg PO TIDAC Qty: 90 6RF pantoprazole 40 mg tablet,delayed release (DR/EC) 40 mg PO BID Qty: 180 2RF sucralfate [Carafate] 1 gram tablet 4 g PO DAILY@1200 Qty: 120 6RF (DME) HEAT COMPRESS See Rx Instructions .Route .MEDSUPPLY Qty: 1 0RF Rx Instructions: As directed nicotine (polacrilex) [Nicorette] 2 mg gum 2 mg buccal Q2H PRN (Reason: nicotine cravings) Qty: 120 2RF Print Language: Irish
--- OUTSIDE RECORDS SUMMARY | 2024-09-17 15:03 | XMS_ITS | Encounter Summary ---
Author Organization [facility] Address [address] [place] [address] Care Team Providers Care Sulfide Head Operator Name Role Phone Sarthak Person MD Primary Care Provider + [phone] Encounter Details Date Type Department Care Team (Late st Contact Info) Description 07/29/2024 Lab Requisition [facility] - Main Lab [address] [facility] [place] [id number] Ly Johnson MD [address] [address] Malignant neoplasm of unspecified part of unspecified [...] organism documented in this encounter Care Teams Sulfide Head Operator Relationship Specialty Start Date End Date Sarthak Person MD [address] [place] [address] PCP - General Internal Medicine 02/06/15 documented as of this encounter
[2024-09-17] MEDS: Albuterol Sulfate 2.5 MG, Albuterol/Iprat 2.5/0.5MG 3 ML 3 ML INHALE ×2 (15:13→16:57)
[2024-09-17] MEDS: Morphine Sulfate Oral Sol 10 MG/5 ML SOLUTION 5 MG PO ×3 (16:06→21:39)
[2024-09-17] MEDS: LORazepam 0.5 MG TABLET PO ×2 (16:07→20:30)
--- NOTE | 2024-09-17 16:42 | PM.IMHP ---
History of Present Illness Date of Service: 09/17/24 Chief Complaint: [facility] hospice 64 yo female with PMH of COPD, anxiety, depression, HTN, GERD, hep C, HLD, small cell lung cancer with mets and SVC syndrome, she comes in from home with call ahead by hospice that she will need [facility] bed they have also sent in med recommendations. The patient notes she has pain and feels short of breath. She is aware she is here for admission for hospice. Initially refusing hospice eventually agreed to stay Review of Systems Review of Systems: Denies chest pain Admits shortness of breath is worsening Denies nausea vomiting diarrhea Denies fever chills PMFSH Medical History Bronchitis COPD exacerbation Carcinoma of right lung parenchyma Small cell lung cancer (~08/2023) Encounter for well woman exam with routine gynecological exam Smoker Encounter for hospice care discussion Respiratory failure with hypoxia Enterococcus, vancomycin-resistant Small cell lung cancer Small cell lung cancer MDD (major depressive disorder), recurrent episode, moderate Abnormal CT scan, chest Mass of right lung Lung mass Rectal prolapse 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 Nicotine dependence, cigarettes, uncomplicated Nonrheumatic mitral (valve) insufficiency Pulmonary nodule History of hepatitis C Osteopenia (~2011) COPD (chronic obstructive pulmonary disease) IV drug user Endocarditis of mitral valve (~11/2017) Mitral valve prolapse Mitral regurgitation Early satiety Paresthesia of left leg Allergic rhinitis Facet arthritis of lumbar region Cervical spondylosis Vitamin D deficiency Pure hypercholesterolemia Benign essential hypertension Depression GERD (gastroesophageal reflux disease) Anxiety Family History Father Internal bleeding Mother Medical history unknown Surgical History History of bronchoscopy (~2023) History of liver biopsy (~2009) History of partial colectomy (~2014) History of hysteroscopy (~2010) History of colonoscopy (~2017) Social History Household Members: None Household Members Other:: DAUGHTER LIVES DOWNSTAIRS IN TWO BEDROOM HOME Housing: House Housing Other:: lives alone with her cat Gizmo Are you a primary wound care nurse to a significant other at home: No Do you presently have visiting nurse or other home services: Yes Unable to assess alcohol history related to: Unknown Alcohol intake: former Comment: chair alarm to bed Patient Tobacco Use Status: Current everyday Tobacco user Tobacco use type: Cigarette Cigarette Packs Per Day: 0.25 Years Smoked: 45 Smoked in Last 30 Days: Yes e-Cigarette/Vaping Use: Never Used Second Hand Smoke Exposure: No Use of substances other than those prescribed or required for medical reasons: No Substance Use Type: Marijuana Advance Directives: Yes Advance Directives on File: Yes Advance Directives Date on File: 09/23/23 Do you have a plan to hurt others: No Plan service: No Current occupational status: unemployed Sexual orientation: Straight/Heterosexual Gender identity: Female Cognitive needs: No Hearing needs: No Vision needs: Yes Meds Allergies Allergy/AdvReac Type Severity Reaction Status Date / Time No Known Allergies Allergy Unknown unknown Verified 09/17/24 14:55 [NO KNOWN ALLERGIES] Active Medications: Current Medications Acetaminophen (Acetaminophen Supp 650 Mg Supp.Rect) 650 mg WA Q6H PRN PRN Reason: Pain, Mild 1-3,fever,headache Bisacodyl (Bisacodyl 10 Mg Supp.Rect) 10 mg WA ONCE MANUEL Haloperidol (Haloperidol 0.5 Mg Tablet) 0.5 mg PO Q4H PRN PRN Reason: Nausea and Vomiting Lorazepam (Lorazepam 0.5 Mg Tablet) 0.5 mg PO Q4H PRN PRN Reason: anxiety/dyspnea Last Admin: 09/17/24 16:07 Dose: 0.5 mg Morphine Sulfate (Morphine Sulfate Oral Pricilla 10 Mg/5 Ml Solution) 5 mg PO Q1H PRN PRN Reason: pain, dyspnea Last Admin: 09/17/24 16:06 Dose: 5 mg Home Medications ?Medication ?Instructions ?Recorded ?Confirmed ?Last Taken ?Type potassium chloride 20 mEq 20 meq PO BID 07/21/24 09/17/24 09/16/24 History tablet,extended release acetaminophen 650 mg rectal 650 mg WA Q6H PRN Pain 09/17/24 09/17/24 Unknown History suppository amlodipine 2.5 mg tablet 2.5 mg PO DAILY 09/17/24 09/17/24 09/16/24 History bisacodyl 10 mg rectal suppository 10 mg WA DAILY PRN Constipation 09/17/24 09/17/24 Unknown History haloperidol 5 mg tablet 5 mg PO Q4H PRN Secretions 09/17/24 09/17/24 Unknown History ipratropium 0.5 mg-albuterol 3 mg 3 ml inhalation Q4-6H PRN 09/17/24 09/17/24 Unknown History (2.5 mg base)/3 mL nebulization Shortness Of Breath Or Wheezing soln lorazepam 0.5 mg tablet 0.5 mg PO QID PRN Anxiety 09/17/24 09/17/24 Unknown History magnesium oxide 400 mg PO DAILY 09/17/24 09/17/24 09/16/24 History metoprolol succinate 50 mg 50 mg PO DAILY 09/17/24 09/17/24 09/16/24 History tablet,extended release 24 hr morphine concentrate 100 mg/5 mL 5 mg PO Q1H PRN Pain 09/17/24 09/17/24 Unknown History (20 mg/mL) oral solution pantoprazole 40 mg tablet,delayed 40 mg PO BID@0630,1630 09/17/24 09/17/24 09/16/24 History release Physical Exam Vital Signs and Narrative: Vital Signs: Last Vital Signs Temp 97.6 F 09/17/24 15:01 Pulse 88 09/17/24 15:17 Resp 20 09/17/24 15:17 BP 108/77 09/17/24 15:01 Pulse Ox 96 09/17/24 15:01 O2 Del Method Nasal Cannula 09/17/24 15:01 O2 Flow Rate 4 09/17/24 15:01 Oxygen Flow Rate 4 09/17/24 14:43 BMI result Body Mass Index 17.0 Const: Other: Awake alert ill-appearing Chest: Other: Prominent chest vasculature consistent with SVC syndrome Resp: Other: Diminished with coarse rhonchi throughout Cardio: Other: No S4; positive S1-S2; no S3 murmurs rubs or gallops GI: Other: Soft nontender nondistended normoactive bowel sounds Extrem: Other: No edema Assessment and Plan (1) Small cell lung cancer: Qualifiers: Laterality: unspecified laterality Lung location: unspecified part of lung Qualified Code(s): C34.90 - Malignant neoplasm of unspecified part of unspecified bronchus or lung Status: Acute (2) Superior vena cava syndrome: Status: Acute Plan 64-year-old female with a history of COPD anxiety hypertension GERD hep C and small-cell lung cancer with metastatic disease and SVC syndrome comes in from home after meeting with hospice. Agrees to GI hospice 1. Small-cell carcinoma of the lung with metastatic disease/SVC syndrome Patient made comfort measures only and meds entered and adjusted as per hospice recommendation. Further plans as clinical course unfolds Quality Stroke Does the patient have a stroke diagnosis?: No VTE Prior VTE?: No VTE Risk Level:: Medical - moderate - high VTE Device Contraindication: Treatment Not Indicated VTE Drug Contraindication: Treatment Not Indicated
--- NOTE | 2024-09-17 16:42 | PHA.MEDREC ---
Addendum entered by Dustin Bentley RPh 09/17/24 17:56: MED REC REVIEWED BY [facility] Original Note: Pharmacy Consult ? Medication Reconciliation Pharmacy has completed the medication reconciliation.Spoke to patient daughter and she states patients medications just changed because patient is now in hospice care. Call and spoke to Hospice nurse [phone]. nurse states patient was just admitted to hospice care yesterday and there hasn't been any changes in patient s medications since last discharge from [facility] [place]. Spoke to patient and she was able to confirm all of her medications. Patient states she is no longer on Lomotil , Hyoscymine sulf 0.125 mg ( hasn't started yet), Imodium A-D 2 mg, and sodium chloride 1,000 mg.
[2024-09-17] MEDS: guaiFEN/Codeine SF 200/20/10ML 10 ML LIQUID PO ×2 (17:03→21:45)
[2024-09-17] MEDS: HaloperidoL 0.5 MG TABLET PO (19:06)
[2024-09-18] VITALS (11 sets, daily range): BP systolic 141; BP diastolic 74; PULSE 87–91; RESP 14–28; TEMP 36.3; O2SAT 79–92
[2024-09-18] MEDS: Albuterol/Iprat 2.5/0.5MG 3 ML AMPUL.NEB INHALE ×3 (00:15→22:05)
[2024-09-18] MEDS: guaiFEN/Codeine SF 200/20/10ML 10 ML LIQUID PO ×3 (01:30→22:01)
--- NOTE | 2024-09-18 02:10 | PC.NURSE ---
Rhonchi, SOB, anxiety. Patient is bringing up some sputum, oxymizer applied as sats down 89% on 4L. now 92% 5L. Respiratory therapy has given nebulizer, she has received robitussin with codeine. Results pending for robitussin c Codeine. RR 22. 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 Dr. Lee messaged to request scopolamine patch if he feels beneficial.
[2024-09-18] MEDS: Morphine Sulfate Oral Sol 10 MG/5 ML SOLUTION 5 MG PO ×5 (03:00→10:29)
[2024-09-18] MEDS: LORazepam 0.5 MG TABLET PO ×2 (03:03→10:22)
[2024-09-18] MEDS: Nicotine 14 MG PATCH.TD24 TRANSDERMA (04:07)
--- NOTE | 2024-09-18 04:49 | PC.NURSE ---
Sarah appears more comfortable, lessened anxiety and breathing easier. Rhonchi still present and pt is expectorating some phlegm. Obtained order for nicotine patch for patient request. She requested second dose Morphine and is currently dosing off. I have been holding her hand at the bedside as she is weepy, voicing regrets and wishing her mother was alive. She is afraid to sleep and not wake up. Listened and reassured it is ok to rest and that i will be keeping watch over her. She is less anxious and able to lay still.
[2024-09-18] MEDS: HaloperidoL 0.5 MG TABLET PO (06:35)
[2024-09-18] MEDS: Sucralfate 1 GM TABLET PO (07:35)
[2024-09-18] MEDS: Mirtazapine 30 MG TABLET PO (07:35)
[2024-09-18] MEDS: hydrOXYzine HCL 50 MG TABLET PO (07:35)
[2024-09-18] MEDS: oxyCODONE HCl Immed Release 5 MG TABLET PO ×4 (07:35→23:17)
[2024-09-18] MEDS: Mag&Al/Sim/Diphenhyd/Lidocaine 10 ML ORAL.SUSP PO (07:35)
[2024-09-18] MEDS: Omeprazole 20 MG CAPSULE.DR PO (07:35)
[2024-09-18] MEDS: Scopolamine 1.5 MG PATCH.TD.3 EAR-BEHIND (11:35)
[2024-09-18] MEDS: hydrOXYzine HCL 25 MG TABLET PO ×3 (13:01→21:45)
--- NOTE | 2024-09-18 13:30 | P.PNIM_ITS ---
Subjective Subjective Date of Service: 09/18/24 Interval History: Considerable decline overnight. Switched to IV morphine/Valium via [facility] Review of Systems Unable to obtain Physical Exam Vital Signs: Vital Signs: Last Vital Signs Temp 97.4 F 09/18/24 02:15 Pulse 87 09/18/24 02:15 Resp 18 09/18/24 11:36 BP 141/74 H 09/18/24 02:15 Pulse Ox 92 09/18/24 02:15 O2 Del Method Nasal Cannula, Hu midified O2 09/18/24 04:24 O2 Flow Rate 4 09/18/24 04:24 Oxygen Flow Rate 4 09/17/24 14:43 BMI result Body Mass Index 15.5 Const: Other: Somnolent barely arousable speaking mumbling words only Chest: Other: Prominent chest vasculature consistent with SVC syndrome Resp: Other: Diminished with coarse rhonchi throughout Cardio: Other: No S4; positive S1-S2; no S3 murmurs rubs or gallops GI: Other: Soft nontender nondistended normoactive bowel sounds Extrem: Other: No edema Objective Data Active Medications Acetaminophen (Acetaminophen Supp 650 Mg Supp.Rect) 650 mg DE Q6H PRN PRN Reason: Pain, Mild 1-3,fever,headache Albuterol/Ipratropium (Albuterol/Iprat 2.5/0.5mg 3 Ml Ampul.Neb) 3 ml INHALE Q4H PRN PRN Reason: Wheezing Last Admin: 09/18/24 11:35 Dose: 3 ml Documented By: GOMEZ Bisacodyl (Bisacodyl 10 Mg Supp.Rect) 10 mg DE ONCE MANUEL Diazepam (Diazepam 10 Mg/2 Ml Cartridge) 5 mg IVPUSH Q4H PRN PRN Reason: anxiety Guaifenesin/Codeine Phosphate (Guaifen/Codeine Sf 200/20/10ml 10 Ml Liquid) 10 ml PO Q4H PRN PRN Reason: Cough Last Admin: 09/18/24 01:30 Dose: 10 ml Documented By: ALBERTO Haloperidol (Haloperidol 0.5 Mg Tablet) 0.5 mg PO Q4H PRN PRN Reason: Nausea and Vomiting Last Admin: 09/18/24 06:35 Dose: 0.5 mg Documented By: ALBERTO Hydroxyzine HCl (Hydroxyzine Hcl 25 Mg Tablet) 25 mg PO QID [facility] Last Admin: 09/18/24 13:01 Dose: 25 mg Documented By: GOMEZ Morphine Sulfate (Morphine Sulfate 4 Mg/Ml Cartridge) 4 mg IVPUSH Q2H PRN; Protocol PRN Reason: Pain, Severe (Pain Scale 7-10) Oxycodone HCl (Oxycodone Hcl Immed Release 5 Mg Tablet) 5 mg PO Q4H [facility] Last Admin: 09/18/24 11:35 Dose: 5 mg Documented By: GOMEZ Scopolamine (Scopolamine 1.5 Mg Patch.Td.3) 1.5 mg EAR-BEHIND Q72H [facility] Last Admin: 09/18/24 11:35 Dose: 1.5 mg Documented By: GOMEZ Assessment and Plan (1) Metastatic non-small cell lung cancer: Status: Acute Plan 64-year-old female with a history of COPD anxiety hypertension GERD hep C and small-cell lung cancer with metastatic disease and SVC syndrome comes in from home after meeting with hospice. Agrees to GI hospice 1. Small-cell carcinoma of the lung with metastatic disease/SVC syndrome Patient made comfort measures only and meds entered and adjusted as per hospice recommendation. Considerable decline overnight. Switch to IV morphine/Valium through [facility]. Scopolamine patch added. Call placed to daughter Елена who is primary contact updated with situation; understands the gravity of the situation. Explained to daughter the patient is comfortable at this time. Quality Stroke Does the patient have a stroke diagnosis?: No VTE Prior VTE?: No VTE Risk Level:: Medical - moderate - high VTE Device Contraindication: Treatment Not Indicated VTE Drug Contraindication: Treatment Not Indicated
[2024-09-18] MEDS: Morphine Sulfate 4 MG/ML CARTRIDGE IVPUSH ×4 (14:26→21:50)
[2024-09-18] MEDS: diazePAM 10 MG/2 ML CARTRIDGE 5 MG IVPUSH (15:04)
--- NOTE | 2024-09-18 15:20 | PC.NURSE ---
Patient is progressing rapidly into stages of end of life. Chest port was accessed and education given regarding medication. Patient consents to port access and medication administration via port. Patient still having pain and requesting prn morphine and after giving patient had severe anxiety and iv valium was given. Patient is now resting quietly but starting to show brief periods of apnea and expected to continue to progress rapidly. Both daughters were contacted and updated on patients current status and rapid progression.
--- NOTE | 2024-09-18 16:05 | MHC.CM.PN ---
PT NOW GIP, C REPORTS SHE WAS HOME ALONE, WITH A DAUGHTER DOWNSTAIRS AND ANOTHER CHECKING IN REGULARLY HCP AND MOLST ON FILE PCP: GLEN KELLER
[2024-09-18] MEDS: ondansetron HCL 4 MG/2 ML VIAL IVPUSH (19:55)
[2024-09-19] MEDS: Morphine Sulfate 4 MG/ML CARTRIDGE IVPUSH ×3 (00:06→04:50)
[2024-09-19] MEDS: diazePAM 10 MG/2 ML CARTRIDGE IVPUSH (01:30)
[2024-09-19 03:48] VITALS: RESP 9
--- NOTE | 2024-09-19 06:42 | PM.EVENT ---
Event Note Date of Service: 09/19/24 Event Note: I was called to patient's bedside to pronounce the patient. No spontaneous movements were present. There was no response to verbal or tactile stimulus. Pupils were mid dilated and fixed. No breath sounds were appreciated over either lung field. No carotid pulses were palpable. No heart sounds were auscultated over entire precordium. Patient was on comfort measures only. Patient pronounced on 09/19/2024 at 06:36. Cera (daughter) called and condolences offered. certificate completed. Time Spent With Patient Time: Total time managing care of this patient today ____ minutes.
--- NOTE | 2024-09-19 07:10 | PM.DDS ---
Discharge Sum: Prov Provider Primary care physician: Sarthak Person MD Discharge Sum: Diag Contributing Factors (1) Metastatic non-small cell lung cancer: Discharge Sum: Summary Date and Time Date of admission: 09/17/24 15:07 Date of : 09/19/24 Time of : 06:36 Summary Details: 64 yo female with PMH of COPD, anxiety, depression, HTN, GERD, hep C, HLD, small cell lung cancer with mets and SVC syndrome, she comes in from home with call ahead by hospice that she will need GIP bed they have also sent in med recommendations. The patient notes she has pain and feels short of breath. She is aware she is here for admission for hospice. Initially refusing hospice eventually agreed to stay Hospital Course Patient admitted GI IP hospice. Hospice nurse seen recommendations implemented. Family updated at bedside the last 24 hours. Patient comfortably on [employer] Additional Data Attending physician: Sincere Carl,
== END 2024-09-19 06:36 | disposition expired | DRG 951 ==
LOC: HO.ED 15:27 → HO.EDOVER 15:30 → HO.S3 15:52
PROVIDERS: Admitting Provider Hospitalist; Emergency Provider Emergency Medicine; PCP Internal Medicine; Visit Provider Hospitalist
DX: Z51.5 Encounter for palliative care (principal); I87.1 Compression of vein; C79.9 Secondary malignant neoplasm of unspecified site; C34.11 Malignant neoplasm of upper lobe, right bronchus or lung; F17.210 Nicotine dependence, cigarettes, uncomplicated; J44.9 Chronic obstructive pulmonary disease, unspecified; F41.9 Anxiety disorder, unspecified; K21.9 Gastro-esophageal reflux disease without esophagitis; Z71.6 Tobacco abuse counseling; Z75.1 Person awaiting admission to adequate facility elsewhere; Z79.899 Other long term (current) drug therapy
CPT/HCPCS: 94640; 99285; J2270; J2405; J3360

== ENCOUNTER → 2024-09-17 15:07 | Outpatient (BNV) | payer OTHER, SELFPAY | PROVIDERS: Admitting Provider Hospitalist; Emergency Provider Emergency Medicine; PCP Internal Medicine; Visit Provider Hospitalist | DX: C34.90 Malignant neoplasm of unspecified part of unspecified bronchus or lung (principal) | CPT/HCPCS: 99233 ==